=== PATIENT | male | born 1960 | race Caucasian/White ===

== ENCOUNTER 2022-05-24 22:25 | Emergency (ER) | payer OTHER ==
[2022-05-24 23:31] VITALS: RESP 16; TEMP 97.8
[2022-05-25] MEDS ORDERED: LIDOCAINE 1% INJ 10MG/ML (5 ML VIAL-PF) SQ STA (01:10)
[2022-05-25 02:42] LABS: Basophils % (A) 0 %; Eosinophils # (A) 0.1 k/uL (0-0.7); Eosinophils % (A) 1 %; HCT 40.4 % (39.0-53.0); HGB 12.7 gm/dL (13.0-17.5); Hypochromasia Slight; Lymphocytes # (A) 2.8 k/uL (1.0-4.8); Lymphocytes % (A) 29 %; MCHC 31.4 g/dL (31.0-37.0); MCV 102.1 fL (80.0-100.0); Macrocytosis Slight; Mean Platelet Volume 7.7; Monocytes # (A) 0.4 k/uL (0-1.0); Monocytes % (A) 5 %; Neutrophils # (A) 6.2 k/uL (1.3-7.7); Neutrophils % (A) 65 %; Platelet Count 289 k/uL (150-450); RBC 3.96 m/uL (4.30-5.90); RDW 14.1 % (11.5-15.5); WBC 9.6 k/uL (3.8-10.6)
[2022-05-25 02:47] LABS: INR 0.9 (<1.2); Partial Thromboplastin Time 22.1 sec (22.0-30.0); Prothrombin Time 10.2 sec (9.0-12.0)
[2022-05-25 02:49] LABS: Albumin 3.4 g/dL (3.5-5.0); Calcium 8.2 mg/dL (8.4-10.2); Potassium 4.4 mmol/L (3.5-5.1); Total Bilirubin 0.1 mg/dL (0.2-1.3); Total Protein 6.1 g/dL (6.3-8.2)
--- NOTE | 2022-05-25 02:58 | ED ---
General Adult HPI - General Chief complaint: Syncope Stated complaint: Fall @1630/Syncope/Hit head Time Seen by Provider: 05/25/22 01:04 Source: patient Mode of arrival: ambulatory Limitations: no limitations - History of Present Illness Initial comments: This patient is a 62-year-old man brought to have evaluation after he had a ground-level fall at home. The patient has history of frequent falls. 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 The patient fell this evening then had not been able to get up. He states that he did get to a phone and call. He is currently denying complaints other than having a laceration to the posterior scalp. States he would not have come to the hospital other than for the scalp laceration. Denies neck, back, chest or abdomen pain. He states there is just some mild discomfort at the laceration site -: hour(s) Location: head Severity scale (1-10): 1 Consistency: constant Improves with: none Worsens with: none Associated Symptoms: denies other symptoms Treatments Prior to Arrival: none - Related Data Allergies Allergy/AdvReac Type Severity Reaction Status Date / Time No Known Allergies Allergy Verified 05/24/22 23:31 Review of Systems ROS Statement: Those systems with pertinent positive or pertinent negative responses have been documented in the HPI. ROS Other: All systems not noted in ROS Statement are negative. Constitutional: Denies: fever, weakness Eyes: Denies: vision change ENT: Denies: epistaxis Respiratory: Denies: cough, dyspnea Cardiovascular: Denies: chest pain, palpitations, edema, syncope Gastrointestinal: Denies: abdominal pain, vomiting, diarrhea Genitourinary: Denies: dysuria, hematuria Musculoskeletal: Denies: back pain Skin: Denies: rash Neurological: Reports: headache. Denies: weakness, numbness, paresthesias, confusion Past Medical History Additional Past Medical History / Comment(s): thyroid issue History of Any Multi-Drug Resistant Organisms: None Reported Additional Past Surgical History / Comment(s): gastric bypass. Umbilical hernia Past Psychological History: No Psychological Hx Reported Smoking Status: Never smoker Past Alcohol Use History: Occasional Past Drug Use History: None Reported General Exam Limitations: no limitations General appearance: alert, in no apparent distress Head exam: Present: normocephalic, other (Patient has approximately 8 cm laceration to the right parieto-occipital scalp. There is no bony tenderness or deformity.) Eye exam: Present: normal appearance, PERRL, EOMI. Absent: scleral icterus, conjunctival injection ENT exam: Present: normal oropharynx, TM's normal bilaterally Neck exam: Present: normal inspection, full ROM. Absent: tenderness Respiratory exam: Present: normal lung sounds bilaterally. Absent: respiratory distress, wheezes, rales, rhonchi, stridor, chest wall tenderness Cardiovascular Exam: Present: regular rate, normal rhythm, normal heart sounds. Absent: systolic murmur, diastolic murmur, rubs, gallop GI/Abdominal exam: Present: soft. Absent: distended, tenderness, guarding, rebound, rigid, mass Extremities exam: Present: normal inspection, normal capillary refill. Absent: pedal edema, calf tenderness Back exam: Present: normal inspection. Absent: CVA tenderness (R), CVA tenderness (L), vertebral tenderness Neurological exam: Present: alert, oriented X3, CN II-XII intact. Absent: motor sensory deficit Skin exam: Present: warm, dry, normal color. Absent: rash Course Vital Signs 05/24/22 05/25/22 23:25 05:40 Temperature 97.8 F Pulse Rate 87 88 Respiratory 16 16 Rate Blood Pressure 108/74 110/72 O2 Sat by Pulse 96 100 Oximetry EKG Findings - EKG Results: EKG: interpreted by SAVANNAH, sinus rhythm (Rate 77 bpm) - Blocks, [place], Hypertrophy, ST Abn: AV and intraventricular conduction: right bundle branch block (fixed/intermittent, complete/incomplete) QRS axis and voltage: left axis deviation (-30 to -90) Chamber hypertrophy or enlargement: left ventricular hypertrophy or enlargement (LVE) Procedures - Laceration Laceration #1 Consent Obtained: verbal consent Indication: laceration Site: scalp Description: linear Anesthetic Used: lidocaine 1% Anesthesia Technique: local infiltration Type of Sutures: other (Melchor) Number of Sutures: 8 Technique: simple, interrupted Patient Tolerated Procedure: well, no complications Medical Decision Making - Lab Data Result diagrams: 05/25/22 02:25 05/25/22 02:25 Lab Results 05/25/22 05/25/22 05/25/22 Range/Units 02:25 02:25 02:25 WBC 9.6 (3.8-10.6) k/uL RBC 3.96 L (4.30-5.90) m/uL Hgb 12.7 L (13.0-17.5) gm/dL Hct 40.4 (39.0-53.0) % MCV 102.1 H (80.0-100.0) fL MCH 32.0 (25.0-35.0) pg MCHC 31.4 (31.0-37.0) g/dL RDW 14.1 (11.5-15.5) % Plt Count 289 (150-450) k/uL MPV 7.7 Neutrophils % 65 % Lymphocytes % 29 % Monocytes % 5 % Eosinophils % 1 % Basophils % 0 % Neutrophils # 6.2 (1.3-7.7) k/uL Lymphocytes # 2.8 (1.0-4.8) k/uL Monocytes # 0.4 (0-1.0) k/uL Eosinophils # 0.1 (0-0.7) k/uL Basophils # 0.0 (0-0.2) k/uL Hypochromasia Slight Macrocytosis Slight PT 10.2 (9.0-12.0) sec INR 0.9 (<1.2) APTT 22.1 (22.0-30.0) sec Sodium 142 (137-145) mmol/L Potassium 4.4 (3.5-5.1) mmol/L Chloride 116 H (98-107) mmol/L Carbon Dioxide 15 L (22-30) mmol/L Anion Gap 11 mmol/L BUN 22 H (9-20) mg/dL Creatinine 1.43 H (0.66-1.25) mg/dL Est GFR (CKD-EPI)AfAm 61 (>60 ml/min/1.73 sqM) Est GFR (CKD-EPI)NonAf 52 (>60 ml/min/1.73 sqM) Glucose 75 (74-99) mg/dL Calcium 8.2 L (8.4-10.2) mg/dL Total Bilirubin 0.1 L (0.2-1.3) mg/dL AST 22 (17-59) U/L ALT 8 (4-49) U/L Alkaline Phosphatase 95 (38-126) U/L CK-MB (CK-2) (0.0-2.4) ng/mL Troponin I (0.000-0.034) ng/mL Total Protein 6.1 L (6.3-8.2) g/dL Albumin 3.4 L (3.5-5.0) g/dL 05/25/22 Range/Units 02:25 WBC (3.8-10.6) k/uL RBC (4.30-5.90) m/uL Hgb (13.0-17.5) gm/dL Hct (39.0-53.0) % MCV (80.0-100.0) fL MCH (25.0-35.0) pg MCHC (31.0-37.0) g/dL RDW (11.5-15.5) % Plt Count (150-450) k/uL MPV Neutrophils % % Lymphocytes % % Monocytes % % Eosinophils % % Basophils % % Neutrophils # (1.3-7.7) k/uL Lymphocytes # (1.0-4.8) k/uL Monocytes # (0-1.0) k/uL Eosinophils # (0-0.7) k/uL Basophils # (0-0.2) k/uL Hypochromasia Macrocytosis PT (9.0-12.0) sec INR (<1.2) APTT (22.0-30.0) sec Sodium (137-145) mmol/L Potassium (3.5-5.1) mmol/L Chloride (98-107) mmol/L Carbon Dioxide (22-30) mmol/L Anion Gap mmol/L BUN (9-20) mg/dL Creatinine (0.66-1.25) mg/dL Est GFR (CKD-EPI)AfAm (>60 ml/min/1.73 sqM) Est GFR (CKD-EPI)NonAf (>60 ml/min/1.73 sqM) Glucose (74-99) mg/dL Calcium (8.4-10.2) mg/dL Total Bilirubin (0.2-1.3) mg/dL AST (17-59) U/L ALT (4-49) U/L Alkaline Phosphatase (38-126) U/L CK-MB (CK-2) 2.5 H (0.0-2.4) ng/mL Troponin I <0.012 (0.000-0.034) ng/mL Total Protein (6.3-8.2) g/dL Albumin (3.5-5.0) g/dL Disposition Clinical Impression: Vasovagal syncope, Dehydration Disposition: HOME SELF-CARE Condition: Good Instructions (If sedation given, give patient instructions): Dehydration (ED), Syncope (ED), Head Laceration (ED) Is patient prescribed a controlled substance at d/c from ED?: No Referrals: Ruben Munguia DO [Primary Care Provider] - 1-2 days Time of Disposition: 03:05
[2022-05-25 03:01] LABS: Creatine Kinase MB 2.5 ng/mL (0.0-2.4); Troponin I <0.012 ng/mL (0.000-0.034)
[2022-05-25] MEDS ORDERED: BACITRACIN OINT 1 EACH PACKET TOPICAL ONE (04:59)
[2022-05-25 05:42] VITALS: BP 110/72; PULSE 88
== END 2022-05-25 05:42 | disposition home or self-care (01) ==
LOC: EC 22:25
DX: R55 Syncope and collapse (principal); E86.0 Dehydration
CPT/HCPCS: 36415; 80053; 82553; 84484; 85025; 85610; 85730; 12004; 99285; J2001

== ENCOUNTER 2022-09-09 07:15 | Observation (INO) | payer OTHER ==
[2022-09-09] MEDS ORDERED: KETOROLAC 15 MG/ML 1 ML VIAL IM STA (07:46)
[2022-09-09] MEDS ORDERED: diazePAM 5 MG TAB PO STA (07:46)
--- NOTE | 2022-09-09 08:02 | ED ---
Back Pain HPI - General Chief Complaint: Back Pain/Injury Stated Complaint: Back Pain Time Seen by Provider: 09/09/22 07:16 Source: patient, EMS Limitations: no limitations - History of Present Illness Initial Comments: 62-year-old male with past medical history of gastric bypass who presents to the emergency department with reported back pain. 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 States he broke his left tibia however it was not found on original evaluation and therefore healed improperly. He has been ambulating with a walker because of this. He has been under the care of his primary care doctor. Recently just finished physical therapy for his back pain. States that he was ambulating without his walker without difficulty. Yesterday the patient began having lumbar back spasms. States they're intermittent without provoking factors. Does admit to some numbness tingling that radiates into the posterior aspect of his left leg. No retention of urine or stool. No urinary incontinence. Does admit to some stool incontinence which has been chronic since his gastric bypass due to loose stools. No saddle anesthesia. She has been unable to ambulate at all since yesterday. Called EMS today after laying in bed for a significant period of time. He does have Flexeril at home which she took yesterday and states that it did not help his symptoms at all. No fevers. No history of drug use. No other alleviating, precipitating or modifying factors - Related Data Home Medications Medication Instructions Recorded Confirmed Calcium Carbonate [Calcium] 600 mg PO DAILY 09/09/22 09/09/22 Cyclobenzaprine [Flexeril] 10 mg PO TID 09/09/22 09/09/22 Ergocalciferol (Vitamin D2) 1,250 mcg PO MOTU 09/09/22 09/09/22 [Drisdol (50,000 Iu)] FLUoxetine HCL [PROzac] 20 mg PO DAILY 09/09/22 09/09/22 Levothyroxine Sodium [Synthroid] 50 mcg PO DAILY 09/09/22 09/09/22 Magnesium Oxide [Magnesium] 500 mg PO DAILY 09/09/22 09/09/22 Vitamin B Complex 1 cap PO DAILY 09/09/22 09/09/22 Previous Rx's Medication Instructions Recorded Diclofenac Sodium Gel [Voltaren 2 gm TOPICAL QID #100 gm 09/10/22 Gel] Ibuprofen [Motrin] 600 mg PO TID #60 tab 09/10/22 Pantoprazole [Protonix] 40 mg PO AC-BRKFST #30 tab 09/10/22 Allergies Allergy/AdvReac Type Severity Reaction Status Date / Time No Known Allergies Allergy Verified 09/09/22 11:43 Review of Systems ROS Statement: Those systems with pertinent positive or pertinent negative responses have been documented in the HPI. ROS Other: All systems not noted in ROS Statement are negative. Past Medical History Additional Past Medical History / Comment(s): thyroid issue History of Any Multi-Drug Resistant Organisms: None Reported Additional Past Surgical History / Comment(s): gastric bypass. Umbilical hernia Past Psychological History: No Psychological Hx Reported Smoking Status: Never smoker Past Alcohol Use History: Occasional Past Drug Use History: None Reported General Exam Limitations: no limitations General appearance: alert, in no apparent distress Head exam: Present: atraumatic, normocephalic, normal inspection Eye exam: Present: normal appearance, PERRL, EOMI. Absent: scleral icterus, conjunctival injection, periorbital swelling ENT exam: Present: normal exam, mucous membranes moist Neck exam: Present: normal inspection. Absent: tenderness, meningismus, lymphadenopathy Respiratory exam: Present: normal lung sounds bilaterally. Absent: respiratory distress, wheezes, rales, rhonchi, stridor Cardiovascular Exam: Present: regular rate, normal rhythm, normal heart sounds. Absent: systolic murmur, diastolic murmur, rubs, gallop, clicks GI/Abdominal exam: Present: soft, normal bowel sounds. Absent: distended, tenderness, guarding, rebound, rigid Extremities exam: Present: normal inspection, full ROM, normal capillary refill. Absent: tenderness, pedal edema, joint swelling, calf tenderness Back exam: Present: paraspinal tenderness, other (No step-offs or deformities. Positive straight leg raise, especially on the left. 5 out of 5 muscle strength in the lower extremities to include hip flexors, knee extensors, ankle and great toe dorsiflexors and foot plantar flexors) Neurological exam: Present: alert, oriented X3, CN II-XII intact Psychiatric exam: Present: normal affect, normal mood Skin exam: Present: warm, dry, intact, normal color. Absent: rash Course Vital Signs 09/09/22 09/09/22 07:17 13:17 Temperature 98.2 F 98.3 F Pulse Rate 71 57 L Respiratory 20 18 Rate Blood Pressure 127/79 125/77 O2 Sat by Pulse 98 100 Oximetry Medical Decision Making - Medical Decision Making Upon arrival patient is placed into room 17. A thorough history and physical exam was performed. He is given a dose of Valium and Toradol. CT performed the patient's lumbar spine as he does have history of fall with failing outpatient therapy. CT demonstrates scoliosis with multilevel degenerative disc disease most marked at levels L2 through L5. Multilevel facet arthropathy. Multilevel disc bulge. No definite acute fracture. Patient is unable to get up any. At this time. Given a dose of Dilaudid. Patient is ambulated for a second time and still unable to even sit up in bed due to pain and spasm. Because of this I did discuss the treatment options. Recommend admission at this time the patient is unable to ambulate and does live alone. Patient was agreeable. Called and spoke with sound physician's who was agreeable to admission - Lab Data Result diagrams: 09/09/22 12:16 09/10/22 06:10 Disposition Clinical Impression: Lumbar back pain, Herniated intervertebral disc of lumbar spine, Lumbar radiculopathy, acute Disposition: ADMITTED IP TO THIS [facility] Condition: Stable Is patient prescribed a controlled substance at d/c from ED?: No Time of Disposition: 11:33 Decision to Admit Reason: Admit from EC Decision Date: 09/09/22 Decision Time: 11:33
--- NOTE | 2022-09-09 08:45 | CT ---
EXAMINATION TYPE: CT lumbar spine wo con DATE OF EXAM: 09/09/2022 8:23 AM COMPARISON: None HISTORY: Fall, inability to ambulate CT DLP: 1242.1 mGycm Automated exposure control for dose reduction was used. Unenhanced CT of the lumbar spine was performed. Bone and soft tissue window settings are submitted as well as coronal and sagittal reconstructions. L1-L2: Hypertrophic spurring and moderate degenerative disc disease. Osseous structures grossly intac t. Neural foramina appear patent. L2-L3: Severe degenerative disc disease with secondary scoliosis. Circumferential disc bulging suspec anabell. Questionable right-sided neural foraminal encroachment. Recommend MRI L3-L4: Degenerative disc disease with hypertrophic spurring and facet arthropathy. Circumferential di sc bulging seen with effacement of the thecal sac. Suspect bilateral foraminal encroachment and canal stenosis. Given limitation exam recommend MRI. Disc herniation not excluded. L4-L5: Degenerative disc disease and facet arthropathy. There is bilateral foraminal encroachment and mild effacement of thecal sac with circumferential disc bulging L5-S1: Advanced facet arthropathy and degenerative disc disease. Increased attenuation in the left la teral recess is nonspecific could be related to paracentral disc herniation. Resolution limited. Susp ect neural foramina remain patent. Assessment spinal canal nondiagnostic due to resolution and artifact. Correlate with MRI if concern f or disc herniation or canal stenosis. Deformity of the kidneys noted bilaterally which could been the basis of peripelvic cysts and renal c hronic medical disease. Correlate with ultrasound. Hypertrophic spurring at all levels with scoliotic curvature. Small bilateral pleural effusion and basilar atelectasis or infiltrate. Small hiatal hernia with ques tion previous surgery involving the epigastric region. IMPRESSION: 1. Scoliosis with multilevel degenerative disc disease most marked at levels L2-L5. Multilevel facet arthropathy, or foraminal encroachment suspected. Multilevel disc bulging. Cannot exclude disc hernia tion L3-4 and left paracentral L5-S1 recommend follow-up MRI. 2. No definite acute fracture. 3. Small bilateral pleural effusion and basilar atelectasis or infiltrate.
[2022-09-09] MEDS ORDERED: HYDROmorphone 1 MG/ML 1 ML SYRINGE IM STA (10:15)
[2022-09-09] MEDS ORDERED: NALOXONE 0.4 MG/ML 1 ML VIAL IV PRN (11:35)
[2022-09-09] MEDS ORDERED: methylPREDNISolone SOD SUCCI 125 MG/2 ML VIAL IV STA (11:41)
[2022-09-09 12:42] LABS: ALT 10 U/L (4-49); AST 44 U/L (17-59); African American GFR (CKD) >90 (>60 ml/min/1.73 sqM); Albumin 2.3 g/dL (3.5-5.0); Alkaline Phosphatase 55 U/L (38-126); Anion Gap 6 mmol/L; Blood Urea Nitrogen 18 mg/dL (9-20); Calcium 6.9 mg/dL (8.4-10.2); Carbon Dioxide 23 mmol/L (22-30); Chloride 105 mmol/L (98-107); Glucose 87 mg/dL (74-99); Non-African American GFR(CKD) >90 (>60 ml/min/1.73 sqM); Potassium 3.3 mmol/L (3.5-5.1); Sodium 134 mmol/L (137-145); Total Bilirubin 0.6 mg/dL (0.2-1.3); Total Protein 4.8 g/dL (6.3-8.2)
[2022-09-09] MEDS ORDERED: POTASSIUM CHLORIDE ER 20 MEQ TAB.ER PO STA (12:57)
[2022-09-09 13:07] LABS: HGB 9.7 gm/dL (13.0-17.5); MCH 31.5 pg (25.0-35.0); MCHC 32.3 g/dL (31.0-37.0); MCV 97.4 fL (80.0-100.0); Mean Platelet Volume 8.9; Platelet Count 352 k/uL (150-450); RBC 3.08 m/uL (4.30-5.90); RDW 13.8 % (11.5-15.5); WBC 5.5 k/uL (3.8-10.6)
--- NOTE | 2022-09-09 13:12 | P.HPIM ---
History of Present Illness H&P Date: 09/09/22 Chief Complaint: back pain Patient is a 62-year-old male with past medical history of hypothyroidism, depression presenting with intractable back pain. He claims that at the beginning of this year, he had multiple falls which went to ankle fractures. He was then seen by physical therapy, and recently finished his course 2 weeks ago. About one week ago he had a slip, and twisted his back slightly. Since then he has been having gradual worsening of lumbar pain. He claims that the pain is worse with forward flexion. The pain does not radiate, he denies any numbness or paresthesias in his legs. He denies any saddle anesthesia, bowel or bladder complaints. At worst, he noticed about 8/10. Due to worsening pain he is having difficulty ambulating. She denies any recent chest pain, shortness of breath, abdominal pain, diarrhea, constipation, nausea, vomiting, trouble history, sick contacts. In the ED, his vital signs were within normal limits. His labs were significant for potassium of 3.3 and magnesium of 1.0. Calcium was normal corrected for albumin. Lumbar CT scan showed scoliosis with multilevel degenerative disc disease most marked at levels L2 to L5. Multilevel disc bulge and, no definite acute fracture, small bilateral pleural effusion and basilar atelectasis or infiltrate. In the ED, he was given Valium, Toradol, hydromorphone, steroids. Pertinent positives and negatives as discussed in HPI, a complete review of sy stems was performed and all other systems are negative. Patient seen and examined at bedside. Vital signs reviewed General: nontoxic, no distress, appears at stated age Derm: warm, dry Head: atraumatic, normocephalic, symmetric Eyes: EOMI, no lid lag, anicteric sclera, pupils equal round reactive to light ENT: Nose and ears atraumatic, no thrush, no pharyngeal erythema Neck: No thyromegaly, no cervical lymphadenopathy, trachea midline, supple Mouth: no lip lesion, mucus membranes moist Cardiovascular: S1S2 reg, no murmur, no edema Lungs: clear to auscultation bilateral, no rhonchi, no rales, no wheeze, no accessory muscle use Abdominal: soft, nontender to palpation, no guarding, no appreciable organomegaly, normal bowel sounds Ext: no gross muscle atrophy, muscle strength muscle strength 5 out of 5 in all 4 extremities, no contractures, no step-offs, no spinal tenderness to palpat ion, restricted forward flexion at lumbar spine due to pain Neuro: CN II-XII grossly intact, light touch intact all 4 extremities, Psych: Alert, oriented, appropriate affect Assessment/Plan: Acute intractable low back pain Scoliosis Multilevel degenerative disc disease - will treat with ibuprofen 600 mg daily -Continue home cyclobenzaprine -Spine consult -PT/OT Hypomagnesemia Hypokalemia -Replete Hypocalcemia -Corrected for albumin, calcium is 8.3 Hypothyroidism Depression -Continue home medication The patient is admitted with an anticipated less than 2 midnight stay for evaluation of acute back pain. Surrogate decision-maker: Sister CODE STATUS: DNR/DNI DVT prophylaxis: Lovenox Anticipated discharge date: 09/10/[address]: Home versus [facility] A total of 48 minutes was spent on the care of this complex patient more than 50% of the time was spent in counseling and care coordination. Past Medical History Past Medical History: Thyroid Disorder Additional Past Medical History / Comment(s): thyroid issue History of Any Multi-Drug Resistant Organisms: None Reported Additional Past Surgical History / Comment(s): gastric bypass. Umbilical hernia Past Psychological History: No Psychological Hx Reported Smoking Status: Never smoker Past Alcohol Use History: Occasional Past Drug Use History: None Reported Medications and Allergies Home Medications Medication Instructions Recorded Confirmed Type Calcium Carbonate [Calcium] 600 mg PO DAILY 09/09/22 09/09/22 History Cyclobenzaprine [Flexeril] 10 mg PO TID 09/09/22 09/09/22 History Ergocalciferol (Vitamin D2) 1,250 mcg PO MOTU 09/09/22 09/09/22 History [Drisdol (50,000 Iu)] FLUoxetine HCL [PROzac] 20 mg PO DAILY 09/09/22 09/09/22 History Levothyroxine Sodium [Synthroid] 50 mcg PO DAILY 09/09/22 09/09/22 History Magnesium Oxide [Magnesium] 500 mg PO DAILY 09/09/22 09/09/22 History Vitamin B Complex 1 cap PO DAILY 09/09/22 09/09/22 History Allergies Allergy/AdvReac Type Severity Reaction Status Date / Time No Known Allergies Allergy Verified 09/09/22 11:43 Physical Exam Vitals: Vital Signs Temp Pulse Resp BP Pulse Ox 09/09/22 07:17 98.2 F 71 20 127/79 98 Intake and Output 09/08/22 09/09/22 09/09/22 22:59 06:59 14:59 Other: Weight 97.522 kg Results CBC & Chem 7: 09/09/22 12:16 09/09/22 12:16 Labs: Abnormal Lab Results - Last 24 Hours (Table) 09/09/22 09/09/22 Range/Units 12:16 12:16 RBC 3.08 L (4.30-5.90) m/uL Hgb 9.7 L (13.0-17.5) gm/dL Hct 30.0 L (39.0-53.0) % Sodium 134 L (137-145) mmol/L Potassium 3.3 L (3.5-5.1) mmol/L Calcium 6.9 L (8.4-10.2) mg/dL Magnesium 1.0 L (1.6-2.3) mg/dL Total Protein 4.8 L (6.3-8.2) g/dL Albumin 2.3 L (3.5-5.0) g/dL
[2022-09-09] MEDS: PANTOPRAZOLE 40 MG TABLET PO SCH (13:26)
[2022-09-09] MEDS: MAGNESIUM SULFATE-D5W PMX 1 GM in DEXTROSE/WATER 1 100ML.BAG IVPB SCH ×4 (13:26→17:48)
[2022-09-09 13:44] LABS: Lymphocytes # (M) 1.71 k/uL (1.0-4.8); Monocytes # (M) 0.61 k/uL (0-1.0); Neutrophils # (M) 3.19 k/uL (1.3-7.7); Neutrophils % (M) 58 %; Nucleated Red Blood Cells 0 /100 WBC (0-0); Total Cells Counted 100
[2022-09-09 13:46] LABS: Anisocytosis (M) Present; Poikilocytosis (M) Present
[2022-09-09] MEDS: IBUPROFEN 600 MG TAB PO SCH ×2 (15:55→21:34)
[2022-09-09] MEDS: CYCLOBENZAPRINE 10 MG TAB PO SCH ×2 (16:38→21:34)
--- NOTE | 2022-09-09 16:48 | P.CNOR ---
History of Present Illness - [facility] Consult date: 09/09/22 Requesting physician: Sujey Olivo Consult reason: low back pain (Significant low back pain and spasm) History of present illness: Patient is a very pleasant 62-year-old male who is seen and examined at bedside for further evaluation of his lumbar spine. He states a week ago Wednesday he bumped his arm when getting off the toilet and did have some lumbar spine soreness for a couple days. Later in the week his symptoms have completely subsided. He states in the past couple days he has had some spasm in his lumbar spine that was not severe. He states yesterday his pain became quite severe and he had significant spasm and he was having significant difficulty with his mo bility. He presented to [facility] for further evaluation. CT imaging was taking of his lumbar spine at that time. He states he occasionally has some numbness in his left foot but denies specific lower extremity radiculopathy bilaterally. He is not complaining of any lower extremity weakness bilaterally. He is voiding without difficulty. He states he is known have some lower extremity skin changes which are chronic. He states since his admittance to the hospital his pain has significantly improved. He is not experiencing any significant lumbar spasm or pain. He is able to roll over in bed independently by himself without difficulty. He is able to perform acti ve range of motion bilateral lower extremities without difficulty. Currently he does not feel he needs further treatment evaluation specifically for his lumbar spine. Patient's other medical history does include hypothyroidism and depression. He does admit to history of chronic loose stools following previous gastric bypass surgery in 2000. He also states his right lower extremity is shorter than his left lower extremity following hip fracture requiring surgical intervention while in [facility]. Past Medical History Past Medical History: Thyroid Disorder Additional Past Medical History / Comment(s): thyroid issue History of Any Multi-Drug Resistant Organisms: None Reported Additional Past Surgical History / Comment(s): gastric bypass. Umbilical hernia Past Psychological History: No Psychological Hx Reported Smoking Status: Never smoker Past Alcohol Use History: Occasional Past Drug Use History: None Reported Medications and Allergies Home Medications Medication Instructions Recorded Confirmed Type Calcium Carbonate [Calcium] 600 mg PO DAILY 09/09/22 09/09/22 History Cyclobenzaprine [Flexeril] 10 mg PO TID 09/09/22 09/09/22 History Ergocalciferol (Vitamin D2) 1,250 mcg PO MOTU 09/09/22 09/09/22 History [Drisdol (50,000 Iu)] FLUoxetine HCL [PROzac] 20 mg PO DAILY 09/09/22 09/09/22 History Levothyroxine Sodium [Synthroid] 50 mcg PO DAILY 09/09/22 09/09/22 History Magnesium Oxide [Magnesium] 500 mg PO DAILY 09/09/22 09/09/22 History Vitamin B Complex 1 cap PO DAILY 09/09/22 09/09/22 History Allergies Allergy/AdvReac Type Severity Reaction Status Date / Time No Known Allergies Allergy Verified 09/09/22 11:43 Physical Examination Physical exam: Patient is awake, alert, and oriented 3 Vital signs stable Good chest excursion with deep inspiration and expiration Abdomen soft nontender Examination of lumbar spine reveals skin is intact with no abrasions, lacerations, or bruises; no erythema, purulence or signs of infection Dorsiflexion, plantarflexion, and extensor hallucis longus positive sustained bilaterally Lower extremity strength 5/5 bilaterally Evidence of skin changes over the bilateral lower extremities greater on the left than the right No lower extremity hyperreflexia bilaterally Straight leg test negative bilateral lower extremities Negative Lasegue's test bilaterally No signs or symptoms of DVT; no calf pain No pain with internal and external rotation of the hips bilaterally Neurovascularly intact Results Pertinent studies: CT of the lumbar spine taken on 09/09/2022: T11-L1 degenerative disc disease with anterior osteophytic spurring; L1-2 significant anterior ossific spurring; L2-3 and L3-4 severe degenerative disc disease with significant anterior osteophytic spurring; L3-4 facet arthropathy and circumferential disc bulging with suspected bilateral neural foraminal encroachment and canal stenosis; L4-5 degenerative disc disease, facet arthropathy, and anterior osteophytic spurring; degenerative scoliosis; L5-S1 advanced facet arthropathy and degenerative disc disease with apparent left-sided herniated nucleus pulposus - Labs Labs: Abnormal Lab Results - Last 24 Hours (Table) 09/09/22 09/09/22 Range/Units 12:16 12:16 RBC 3.08 L (4.30-5.90) m/uL Hgb 9.7 L (13.0-17.5) gm/dL Hct 30.0 L (39.0-53.0) % Sodium 134 L (137-145) mmol/L Potassium 3.3 L (3.5-5.1) mmol/L Calcium 6.9 L (8.4-10.2) mg/dL Magnesium 1.0 L (1.6-2.3) mg/dL Total Protein 4.8 L (6.3-8.2) g/dL Albumin 2.3 L (3.5-5.0) g/dL H & H 09/09/22 Range/Units 12:16 Hgb 9.7 L (13.0-17.5) gm/dL Hct 30.0 L (39.0-53.0) % Result Diagrams: 09/09/22 12:16 09/09/22 12:16 Assessment and Plan Assessment: Assessment: Significant lumbar spasm improved Significant lumbar pain improved Left foot numbness, occasionally Degenerative scoliosis Lumbar degenerative disc disease Lumbar facet arthropathy Lumbar osteophytic spurring L3-4 suspected neural foraminal encroachment and canal stenosis L5-S1 apparent left-sided herniated nucleus a pulseless Hypothyroidism Depression Chronic loose stools following gastric bypass surgery in 2000 History of right hip fracture requiring surgical intervention in [facility] (1) Lumbar paraspinal muscle spasm Current Visit: Yes Status: Acute Code(s): M62.830 - MUSCLE SPASM OF BACK SNOMED Code(s): 49554020004795249 (2) Lumbar facet arthropathy Current Visit: Yes Status: Acute Code(s): M47.816 - SPONDYLOSIS W/O MYELOPA THY OR RADICULOPATHY, LUMBAR REGION SNOMED Code(s): 512289867 (3) Lumbar degenerative disc disease Current Visit: Yes Status: Acute Code(s): M51.36 - OTHER INTERVERTEBRAL DISC DEGENERATION, LUMBAR REGION SNOMED Code(s): 76310625 (4) DDD (degenerative disc disease), lumbosacral Current Visit: Yes Status: Acute Code(s): M51.37 - OTHER INTERVERTEBRAL DISC DEGENERATION, LUMBOSACRAL REGION SNOMED Code(s): 46566724 (5) Degenerative scoliosis Current Visit: Yes Status: Acute Code(s): M41.50 - OTHER SECONDARY SCOLIOSIS, SITE UNSPECIFIED SNOMED Code(s): 648985728 (6) Lumbosacral disc herniation Current Visit: Yes Status: Acute Code(s): M51.27 - OTHER INTERVERTEBRAL DISC DISPLACEMENT, LUMBOSACRAL REGION SNOMED Code(s): 548189359 (7) Numbness of foot Current Visit: Yes Status: Acute Code(s): R20.0 - ANESTHESIA OF SKIN SNOMED Code(s): 572626241 (8) Hypothyroidism Current Visit: Yes Status: Acute Code(s): E03.9 - HYPOTHYROIDISM, UNSPECIFIED SNOMED Code(s): 15262712 (9) Depression Current Visit: Yes Status: Acute Code(s): F32.A - DEPRESSION, UNSPECIFIED SNOMED Code(s): 18677651 (10) History of hip fracture Current Visit: Yes Status: Acute Code(s): Z87.81 - PERSONAL HISTORY OF (HEALED) TRAUMATIC FRACTURE SNOMED Code(s): 990364445 (11) Herniated intervertebral disc of lumbar spine Current Visit: Yes Status: Acute Code(s): M51.26 - OTHER INTERVERTEBRAL DISC DISPLACEMENT, LUMBAR REGION SNOMED Code(s): 1339714544 Plan: Plan: 1. Patient was experiencing severe and limiting pain with spasm in his lumbar spine last evening he presented to [facility] for further evaluation. CT imaging of the lumbar spine was taken which does show significant degenerative changes throughout his lumbar spine. Patient states with medication he is not experiencing any significant low back pain or spasm currently. He is able to roll over in bed independently without difficulty. He is able to perform active range of motion of his bilateral lower extremities independently without difficulty. He currently denies any lower extremity weakness or radiculopathy bilaterally. He does admit to some intermittent numbness in his left foot. He is urinating without difficulty. He does not fee l he needs any current treatment specifically for his lumbar spine. We did discuss if his symptoms were to change or worsen we could consider MRI imaging of his lumbar spine and/or consultation with pain management. Patient states given his significant improvement he does not wish to have further evaluation in regards to his lumbar spine at this time. He may increase his mobility and ambulation to his tolerance. At this time, patient will be cleared for discharge from an orthopedic spine standpoint. Following discharge, he may follow-up on an as-needed basis. 2. Patient will continue be seen and examined by medicine Time with Patient: Greater than 30 (Including obtaining history, physical examination, reviewing of imaging, and dictation.)
[2022-09-09 16:52] LABS: Appearance,Urine Cloudy (Clear); Bacteria,Urine Many /hpf; Bilirubin,Urine Negative (Negative); Blood,Urine Negative (Negative); Color,Urine Yellow; Glucose,Urine (UA) Negative (Negative); Ketones,Urine Negative (Negative); Leukocyte Esterase,Urine Large (Negative); Mucus,Urine Occasional /hpf; Nitrite,Urine Positive (Negative); PH, Urine 5.5 (5.0-8.0); Protein,Urine Trace (Negative); RBC,Urine 3 /hpf (0-5); Specific Gravity,Urine 1.021 (1.001-1.035); Squamous Epithelial Cell,Urine 1 /hpf (0-4); WBC,Urine 97 /hpf (0-5)
[2022-09-10] MEDS ORDERED: LEVOTHYROXINE 50 MCG TAB PO SCH (06:30)
[2022-09-10] MEDS: IBUPROFEN 600 MG TAB PO SCH (08:59)
[2022-09-10] MEDS ORDERED: FLUoxetine HCL 20 MG CAP PO SCH (09:00)
[2022-09-10] MEDS ORDERED: NON FORMULARY DRUG (Vitamin B Complex [Vitamin B Complex] 1 EACH Capsule) PO SCH (09:00)
[2022-09-10] MEDS ORDERED: CALCIUM CARBONATE 500 MG CHEWABLE PO SCH (09:00)
[2022-09-10] MEDS: MAGNESIUM OXIDE 400 MG TAB PO SCH ×2 (09:00→09:03)
[2022-09-10] MEDS: PANTOPRAZOLE 40 MG TABLET PO SCH ×2 (09:00→09:03)
[2022-09-10] MEDS: CYCLOBENZAPRINE 10 MG TAB PO SCH (09:00)
[2022-09-10] MEDS ORDERED: ENOXAPARIN 40 MG/0.4 ML SYRINGE SQ SCH (09:00)
[2022-09-10 09:42] VITALS: BP 122/76; PULSE 54; RESP 17; TEMP 97.6
[2022-09-10 11:12] LABS: African American GFR (CKD) 107.1 (60.0-200.0); Anion Gap 9.7 mmol/L (10.00-18.00); BUN/Creat Ratio 19.7 Ratio (12.00-20.00); Blood Urea Nitrogen 17.2 mg/dL (9.0-27.0); Calcium 7.7 mg/dL (8.7-10.3); Carbon Dioxide 23.1 mmol/L (20.0-27.5); Magnesium 2.1 mg/dL (1.5-2.4); Non-African American GFR(CKD) 92.4 (60.0-200.0); Potassium 4.4 mmol/L (3.5-5.5)
--- NOTE | 2022-09-10 12:26 | P.DS ---
Providers Date of admission: 09/09/22 11:37 Expected date of discharge: 09/10/22 Attending physician: Tom Charlton MD Consults: 09/09/22 11:35 Consult Physician Urgent Consulting Provider: Josefina Dennis Consult Reason/Comments: intractable back pain Do you want consulting provider notified?: Yes Primary care physician: Ruben Munguia [facility] Course: Discharge Diagnosis: Acute intractable low back pain Scoliosis Multilevel degenerative disc disease Hypomagnesemia Hypokalemia Hypothyroidism Depression Hospital Course: 62-year-old male with history of hypothyroidism and depression presented with intractable low back pain. He was likely secondary to muscle strain. Lumbar CT scan showed scoliosis at multilevel degenerative disc disease most marked at L2 to L5. Multilevel disc bulge and no definite acute fracture, small bilateral pleural effusion and basilar atelectasis or infiltrate. His labs were also significant for potassium of 3.3 and magnesium of 1. Electrolytes were repleted. He was evaluated by orthopedic surgery. No acute interventions were recommended. If his symptoms gets worse or change, can consider MRI of lumbar spine and/or consultation with pain management. Patient was evaluated by physical therapy, and recommended home care. Patient seen and examined at bedside. Vital signs reviewed and stable. General: nontoxic, no distress, appears at stated age Derm: warm, dry Head: atraumatic, normocephalic, symmetric Eyes: EOMI, no lid lag, anicteric sclera, pupils equal round reactive to light ENT: Nose and ears atraumatic, no thrush, no pharyngeal erythema Neck: No thyromegaly, no cervical lymphadenopathy, trachea midline, supple Mouth: no lip lesion, mucus membranes moist Cardiovascular: S1S2 reg, no murmur, no edema Lungs: clear to auscultation bilateral, no rhonchi, no rales, no wheeze, no accessory muscle use Abdominal: soft, nontender to palpation, no guarding, no appreciable organomegaly, normal bowel sounds Ext: no gross muscle atrophy, muscle strength muscle strength 5 out of 5 in all 4 extremities, no contractures, no step-offs, no spinal tenderness to palpation, restricted forward flexion at lumbar spine due to pain Neuro: CN II-XII grossly intact, light touch intact all 4 extremities, Psych: Alert, oriented, appropriate affect A total of 33 minutes of time were spent preparing this complex discharge summary. Patient was discharged on 09/10/22 at 12:11. Patient Condition at Discharge: Stable Plan - Discharge Summary Discharge Rx Participant: No New Discharge Prescriptions: New Pantoprazole [Protonix] 40 mg PO AC-BRKFST #30 tab Diclofenac Sodium Gel [Voltaren Gel] 2 gm TOPICAL QID #100 gm Ibuprofen [Motrin] 600 mg PO TID #60 tab Continue Magnesium Oxide [Magnesium] 500 mg PO DAILY Ergocalciferol (Vitamin D2) [Drisdol (50,000 Iu)] 1,250 mcg PO MOTU Levothyroxine Sodium [Synthroid] 50 mcg PO DAILY FLUoxetine HCL [PROzac] 20 mg PO DAILY Cyclobenzaprine [Flexeril] 10 mg PO TID Calcium Carbonate [Calcium] 600 mg PO DAILY Vitamin B Complex 1 cap PO DAILY Discharge Medication List Calcium Carbonate [Calcium] 600 mg PO DAILY 09/09/22 [History] Cyclobenzaprine [Flexeril] 10 mg PO TID 09/09/22 [History] Ergocalciferol (Vitamin D2) [Drisdol (50,000 Iu)] 1,250 mcg PO MOTU 09/09/22 [History] FLUoxetine HCL [PROzac] 20 mg PO DAILY 09/09/22 [History] Levothyroxine Sodium [Synthroid] 50 mcg PO DAILY 09/09/22 [History] Magnesium Oxide [Magnesium] 500 mg PO DAILY 09/09/22 [History] Vitamin B Complex 1 cap PO DAILY 09/09/22 [History] Diclofenac Sodium Gel [Voltaren Gel] 2 gm TOPICAL QID #100 gm 09/10/22 [Rx] Ibuprofen [Motrin] 600 mg PO TID #60 tab 09/10/22 [Rx] Pantoprazole [Protonix] 40 mg PO AC-BRKFST #30 tab 09/10/22 [Rx] Follow up Appointment(s)/Referral(s): Saúl Tang PAC [PHYSICIAN [employer] ADMINISTRATOR] - As Needed (Patient may follow-up with Saúl Tang PA-C or Dr. Lloyd Dennis at [facility] on an as-needed basis following discharge. ) Ruben Munguia DO [Primary Care Provider] - 1-2 days Patient Instructions/Handouts: Low Back Strain (DC) Activity/Diet/Wound Care/Special Instructions: Please see Ortho and PCP. Discharge Disposition: HOME WITH HOME HEALTH SERVICES
[2022-09-14] MEDS ORDERED: ERGOCALCIFEROL 1,250 MCG (50,000 IU) CAPSULE PO SCH (09:00)
== END 2022-09-10 14:44 | disposition home health service (06) ==
LOC: EC 07:15 → 6NMEDSUR 11:37
PROVIDERS: ADMIT Student in an Organized Health Care Education/Training Program; ATTEND Student in an Organized Health Care Education/Training Program
DX: M51.17 Intervertebral disc disorders with radiculopathy, lumbosacral region (principal); M51.37 Other intervertebral disc degeneration, lumbosacral region; M41.50 Other secondary scoliosis, site unspecified; E83.42 Hypomagnesemia; E87.6 Hypokalemia; E83.51 Hypocalcemia; K42.9 Umbilical hernia without obstruction or gangrene; J90 Pleural effusion, not elsewhere classified; K44.9 Diaphragmatic hernia without obstruction or gangrene; F32.A Depression, unspecified; E03.9 Hypothyroidism, unspecified; Z98.84 Bariatric surgery status; Z79.899 Other long term (current) drug therapy; Z79.890 Hormone replacement therapy; Z66 Do not resuscitate; Z87.81 Personal history of (healed) traumatic fracture
CPT/HCPCS: 96366; 96372 ×2; 96365; 96375; 99285; 97162; 97166; 80053; 80048; 83735 ×2; 84443; 85025; 81001; 72131; G0378 ×2; J2930; J1650; J1170; J3475; J1885

== ENCOUNTER → 2022-09-24 | Outpatient (CLI) | payer OTHER ==
--- NOTE | 2022-09-24 10:48 | XR ---
EXAMINATION TYPE: XR chest 2V DATE OF EXAM: 09/24/2022 10:40 AM COMPARISON: None TECHNIQUE: XR chest 2V Frontal and lateral views of the chest. CLINICAL INDICATION:Male, 62 years old with history of J90 Pleural effusion; FINDINGS: Lungs/Pleura: There is no evidence of pleural effusion, focal consolidation, or pneumothorax. Pulmonary vascularity: Unremarkable. Heart/mediastinum: Cardiomediastinal silhouette is prominent in size. Musculoskeletal: Multiple level degenerative disc disease changes seen throughout the spine. No acute osseous abnormality. Dextro curvature of the thoracic spine. Other: Surgical clips in the upper abdomen. IMPRESSION: No acute cardiopulmonary disease/process.
== END | disposition home or self-care (01) ==
LOC: RADXRMAIN 10:23
PROVIDERS: ATTEND Family Medicine
DX: J90 Pleural effusion, not elsewhere classified (principal)
CPT/HCPCS: 71046

== ENCOUNTER 2022-11-06 11:48 | Inpatient (IN) | payer OTHER ==
[2022-11-06] MEDS ORDERED: SODIUM CHLORIDE 0.9% 1,000 ML IV ONE ×2 (12:08→13:10)
--- NOTE | 2022-11-06 12:12 | ED ---
General Adult HPI - General Chief complaint: Nausea/Vomiting/Diarrhea Stated complaint: Diarrhea Time Seen by Provider: 11/06/22 11:59 Source: patient, RN notes reviewed Mode of arrival: EMS Limitations: no limitations - History of Present Illness Initial comments: 62-year-old male in the emergency department for diarrhea. She notes diarrhea starting and he asked progressively gotten worse. He reports he stood up from a chair and had an episode of diarrhea, admits he still maintains bowel function. He has not tried anything for his symptoms. He denies nausea, vomiting, abdominal pain, palpitations, fevers. Denies recent travel or recent antibiotic use. He is scheduled to have his first colonoscopy in january of 2023. - Related Data Home Medications Medication Instructions Recorded Confirmed Calcium Carbonate [Calcium] 600 mg PO DAILY 09/09/22 11/06/22 Ergocalciferol (Vitamin D2) 1,250 mcg PO MOWE 09/09/22 11/06/22 [Drisdol (50,000 Iu)] FLUoxetine HCL [PROzac] 20 mg PO DAILY 09/09/22 11/06/22 Levothyroxine Sodium [Synthroid] 50 mcg PO DAILY 09/09/22 11/06/22 Magnesium Oxide [Magnesium] 500 mg PO DAILY 09/09/22 11/06/22 Diclofenac Sodium Gel [Voltaren 2 gm TOPICAL QID PRN 11/06/22 11/06/22 Gel] Folic Acid 0.4 mg PO DAILY 11/06/22 11/06/22 Ibuprofen [Motrin] 600 mg PO TID PRN 11/06/22 11/06/22 Thiamine [Vitamin B-1] 100 mg PO DAILY 11/06/22 11/06/22 Allergies Allergy/AdvReac Type Severity Reaction Status Date / Time No Known Allergies Allergy Verified 11/06/22 14:38 Review of Systems ROS Statement: Those systems with pertinent positive or pertinent negative responses have been documented in the HPI. ROS Other: All systems not noted in ROS Statement are negative. Past Medical History Past Medical History: Thyroid Disorder Additional Past Medical History / Comment(s): thyroid issue History of Any Multi-Drug Resistant Organisms: None Reported Additional Past Surgical History / Comment(s): gastric bypass. Umbilical hernia Past Psychological History: Depression Smoking Status: Never smoker Past Alcohol Use History: Occasional Past Drug Use History: None Reported General Exam Limitations: no limitations General appearance: alert, in no apparent distress Head exam: Present: atraumatic, normocephalic, normal inspection Eye exam: Present: normal appearance ENT exam: Present: normal exam, mucous membranes moist Neck exam: Present: normal inspection. Absent: tenderness, meningismus, lymphadenopathy Respiratory exam: Present: normal lung sounds bilaterally. Absent: respiratory distress, wheezes, rales, rhonchi, stridor Cardiovascular Exam: Present: normal rhythm, tachycardia, normal heart sounds. Absent: systolic murmur, diastolic murmur, rubs, gallop, clicks GI/Abdominal exam: Present: soft, normal bowel sounds. Absent: distended, tenderness, guarding, rebound, rigid Back exam: Present: normal inspection Neurological exam: Present: alert, oriented X3, CN II-XII intact Psychiatric exam: Present: normal affect, normal mood Skin exam: Present: warm, dry, intact, normal color. Absent: rash Course Vital Signs 11/06/22 11/06/22 11:51 12:04 Temperature 98.3 F Pulse Rate 110 H 98 Respiratory 22 20 Rate Blood Pressure 119/76 121/82 O2 Sat by Pulse 100 99 Oximetry - Reevaluation(s) Reevaluation #1: 11/06/22 13:01 Patient reevaluated. Patient updated on results in for further imaging and lab work. Reevaluation #2: 11/06/22 15:14 Patient reevaluated. Patient updated on all results. patient is agreeable to plan of care. EKG Findings - EKG Comments: EKG Findings:: EKG performed at 13:28, rate 83bpm, NSR with marked sinus arrhythmia, RBBB NJ 178, QRS 151. Medical Decision Making - Medical Decision Making 62-year-old male coming in for diarrhea. Patient had an initial lab work is remarkable for WBC is 11.4, hemoglobin 8.7, INR 1.2, sodium 133, potassium 2.6 lactic acid 2.9, calcium 6.3, magnesium 0.8, lipase 60, COVID positive. I interpreted the following; CT abdomen without contrast remarkable for fluid filled colon without focal wall thickening or surrounding inflammatory changes. Patient was given 2 L fluids, potassium, magnesium and calcium during his course of the ED. Consult to Dr. Vogel Who Agrees and Accepts Patient for Admission. Case discussed with Dr. Milton ECP - Lab Data Result diagrams: 11/06/22 12:14 12 12:14 Lab Results 11/06/22 11/06/22 11/06/22 Range/Units 12:14 12:14 12:14 WBC 11.6 H (3.8-10.6) k/uL RBC 2.91 L (4.30-5.90) m/uL Hgb 8.7 L (13.0-17.5) gm/dL Hct 27.2 L (39.0-53.0) % MCV 93.5 (80.0-100.0) fL MCH 29.9 (25.0-35.0) pg MCHC 32.0 (31.0-37.0) g/dL RDW 13.6 (11.5-15.5) % Plt Count 281 (150-450) k/uL MPV 8.5 Neutrophils % 85 % Lymphocytes % 8 % Monocytes % 6 % Eosinophils % 0 % Basophils % 0 % Neutrophils # 9.8 H (1.3-7.7) k/uL Lymphocytes # 0.9 L (1.0-4.8) k/uL Monocytes # 0.6 (0-1.0) k/uL Eosinophils # 0.0 (0-0.7) k/uL Basophils # 0.0 (0-0.2) k/uL Hypochromasia Slight PT (9.0-12.0) sec INR (<1.2) Sodium 133 L (137-145) mmol/L Potassium 2.6 L* (3.5-5.1) mmol/L Chloride 107 (98-107) mmol/L Carbon Dioxide 14 L (22-30) mmol/L Anion Gap 12 mmol/L BUN 16 (9-20) mg/dL Creatinine 1.53 H (0.66-1.25) mg/dL Est GFR (CKD-EPI)AfAm 56 (>60 ml/min/1.73 sqM) Est GFR (CKD-EPI)NonAf 48 (>60 ml/min/1.73 sqM) Glucose 108 H (74-99) mg/dL Lactic Ac Sepsis Rflx Plasma Lactic Acid Kip 2.9 H* (0.7-2.0) mmol/L Calcium 6.3 L* (8.4-10.2) mg/dL Magnesium (1.6-2.3) mg/dL Total Bilirubin 0.6 (0.2-1.3) mg/dL AST 18 (17-59) U/L ALT 10 (4-49) U/L Alkaline Phosphatase 58 (38-126) U/L Total Protein 5.4 L (6.3-8.2) g/dL Albumin 2.3 L (3.5-5.0) g/dL Lipase (23-300) U/L Coronavirus (PCR) (Not Detectd) Influenza Type A RNA (Not Detectd) Influenza Type B (PCR) (Not Detectd) 11/06/22 11/06/22 11/06/22 Range/Units 12:53 13:20 13:20 WBC (3.8-10.6) k/uL RBC (4.30-5.90) m/uL Hgb (13.0-17.5) gm/dL Hct (39.0-53.0) % MCV (80.0-100.0) fL MCH (25.0-35.0) pg MCHC (31.0-37.0) g/dL RDW (11.5-15.5) % Plt Count (150-450) k/uL MPV Neutrophils % % Lymphocytes % % Monocytes % % Eosinophils % % Basophils % % Neutrophils # (1.3-7.7) k/uL Lymphocytes # (1.0-4.8) k/uL Monocytes # (0-1.0) k/uL Eosinophils # (0-0.7) k/uL Basophils # (0-0.2) k/uL Hypochromasia PT (9.0-12.0) sec INR (<1.2) Sodium (137-145) mmol/L Potassium (3.5-5.1) mmol/L Chloride (98-107) mmol/L Carbon Dioxide (22-30) mmol/L Anion Gap mmol/L BUN (9-20) mg/dL Creatinine (0.66-1.25) mg/dL Est GFR (CKD-EPI)AfAm (>60 ml/min/1.73 sqM) Est GFR (CKD-EPI)NonAf (>60 ml/min/1.73 sqM) Glucose (74-99) mg/dL Lactic Ac Sepsis Rflx Y Plasma Lactic Acid Kip (0.7-2.0) mmol/L Calcium (8.4-10.2) mg/dL Magnesium 0.8 L* (1.6-2.3) mg/dL Total Bilirubin (0.2-1.3) mg/dL AST (17-59) U/L ALT (4-49) U/L Alkaline Phosphatase (38-126) U/L Total Protein (6.3-8.2) g/dL Albumin (3.5-5.0) g/dL Lipase 60 (23-300) U/L Coronavirus (PCR) (Not Detectd) Influenza Type A RNA Not Detected (Not Detectd) Influenza Type B (PCR) Not Detected (Not Detectd) 11/06/22 11/06/22 Range/Units 13:20 13:20 WBC (3.8-10.6) k/uL RBC (4.30-5.90) m/uL Hgb (13.0-17.5) gm/dL Hct (39.0-53.0) % MCV (80.0-100.0) fL MCH (25.0-35.0) pg MCHC (31.0-37.0) g/dL RDW (11.5-15.5) % Plt Count (150-450) k/uL MPV Neutrophils % % Lymphocytes % % Monocytes % % Eosinophils % % Basophils % % Neutrophils # (1.3-7.7) k/uL Lymphocytes # (1.0-4.8) k/uL Monocytes # (0-1.0) k/uL Eosinophils # (0-0.7) k/uL Basophils # (0-0.2) k/uL Hypochromasia PT 11.9 (9.0-12.0) sec INR 1.2 H (<1.2) Sodium (137-145) mmol/L Potassium (3.5-5.1) mmol/L Chloride (98-107) mmol/L Carbon Dioxide (22-30) mmol/L Anion Gap mmol/L BUN (9-20) mg/dL Creatinine (0.66-1.25) mg/dL Est GFR (CKD-EPI)AfAm (>60 ml/min/1.73 sqM) Est GFR (CKD-EPI)NonAf (>60 ml/min/1.73 sqM) Glucose (74-99) mg/dL Lactic Ac Sepsis Rflx Plasma Lactic Acid Kip (0.7-2.0) mmol/L Calcium (8.4-10.2) mg/dL Magnesium (1.6-2.3) mg/dL Total Bilirubin (0.2-1.3) mg/dL AST (17-59) U/L ALT (4-49) U/L Alkaline Phosphatase (38-126) U/L Total Protein (6.3-8.2) g/dL Albumin (3.5-5.0) g/dL Lipase (23-300) U/L Coronavirus (PCR) Detected A (Not Detectd) Influenza Type A RNA (Not Detectd) Influenza Type B (PCR) (Not Detectd) Disposition Clinical Impression: Hypokalemia, Hypomagnesemia, COVID-19, Diarrhea Disposition: ADMITTED IP TO THIS HOSP Condition: Fair Time of Disposition: 15:13
[2022-11-06 12:35] LABS: Basophils % (A) 0 %; Eosinophils % (A) 0 %; HCT 27.2 % (39.0-53.0); HGB 8.7 gm/dL (13.0-17.5); Hypochromasia Slight; Lymphocytes # (A) 0.9 k/uL (1.0-4.8); Lymphocytes % (A) 8 %; MCH 29.9 pg (25.0-35.0); MCV 93.5 fL (80.0-100.0); Mean Platelet Volume 8.5; Monocytes # (A) 0.6 k/uL (0-1.0); Monocytes % (A) 6 %; Neutrophils # (A) 9.8 k/uL (1.3-7.7); Neutrophils % (A) 85 %; Platelet Count 281 k/uL (150-450); RBC 2.91 m/uL (4.30-5.90); RDW 13.6 % (11.5-15.5); WBC 11.6 k/uL (3.8-10.6)
[2022-11-06 12:47] LABS: Albumin 2.3 g/dL (3.5-5.0); Total Bilirubin 0.6 mg/dL (0.2-1.3); Total Protein 5.4 g/dL (6.3-8.2)
[2022-11-06 12:52] LABS: Potassium 2.6 mmol/L (3.5-5.1)
[2022-11-06 12:53] LABS: Calcium 6.3 mg/dL (8.4-10.2)
[2022-11-06] MEDS ORDERED: Potassium Replacement Protocol 1 EACH MISC MISCELLANE PRN ×2 (13:07→22:51)
[2022-11-06] MEDS: POTASSIUM CHLORIDE ER 20 MEQ TAB.ER PO SCH ×4 (13:32→23:29)
[2022-11-06 13:55] LABS: INR 1.2 (<1.2)
[2022-11-06 13:56] LABS: Prothrombin Time 11.9 sec (9.0-12.0)
[2022-11-06] MEDS ORDERED: CALCIUM GLUCONATE IN NACL 1 GM in SALINE 1 100ML.BAG IVPB ONE (13:56)
[2022-11-06 14:03] LABS: Magnesium 0.8 mg/dL (1.6-2.3)
[2022-11-06] MEDS ORDERED: Magnesium Replacement Protocol 1 EACH MISC MISCELLANE PRN (14:04)
--- NOTE | 2022-11-06 14:22 | CT ---
EXAMINATION TYPE: CT abdomen pelvis wo con CT DLP: 978.3 mGycm, Automated exposure control for dose reduction was used. DATE OF EXAM: 11/06/2022 2:01 PM COMPARISON: CT lumbar spine 09/09/2022 CLINICAL INDICATION:Male, 62 years old with history of diarrhea; abd pain TECHNIQUE: Standard CT of the abdomen and pelvis without IV or oral contrast. Lack of IV or oral co ntrast limits evaluation of solid and hollow organ viscera. Coronal and sagittal reformats were perfo rmed. FINDINGS: LOWER CHEST: Few bibasilar patchy groundglass opacities which may represent atelectasis versus infilt rate. Mild cardiomegaly. ABDOMEN LIVER: Unremarkable noncontrast appearance. GALLBLADDER AND BILE DUCTS: The gallbladder is surgically absent. No biliary duct dilatation. PANCREAS: Unremarkable noncontrast appearance. SPLEEN: Unremarkable noncontrast appearance. ADRENAL GLANDS: Unremarkable noncontrast appearance. KIDNEYS AND URETERS: No hydronephrosis or renal calculi. PELVIS BLADDER: Unremarkable REPRODUCTIVE: Unremarkable. 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 No pne umatosis. No evidence of bowel obstruction. PERITONEUM: No evidence of pneumoperitoneum or free fluid. VASCULATURE: No evidence of aortic aneurysm. MUSCULOSKELETAL: No acute osseous abnormalities. Remote right-sided rib fractures. Postsurgical rodriguez es from remote right proximal femur fracture with fixation intramedullary sidney and screw. Diffuse bony mineralization. Similar scoliosis and multilevel degenerative disc disease. LYMPH NODES: No gross evidence for lymphadenopathy. SOFT TISSUE/ABDOMINAL WALL: Bilateral gynecomastia. Postsurgical changes of the anterior abdominal wa ll from mesh hernia repair with multiple mesh anchors identified. There is some soft tissue identifie d in this region measuring 3.9 cm of unknown clinical significance (series 201, image 47). IMPRESSION: 1. Fluid-filled colon and rectum without focal wall thickening or surrounding inflammatory changes cain ggestive of a diarrheal state. 2. Postsurgical changes of the anterior abdominal wall from hernia repair with mesh anchors and nonsp ecific soft tissue of undetermined clinical significance. This may relate to postsurgical change. 3. Few bibasilar patchy groundglass opacities which may represent atelectasis versus infiltrate.
[2022-11-06] MEDS ORDERED: NALOXONE 0.4 MG/ML 1 ML VIAL IV PRN (14:40)
[2022-11-06] MEDS: SODIUM CHLORIDE 0.9% 1,000 ML IV SCH (14:50)
[2022-11-06] MEDS: MAGNESIUM SULFATE-D5W PMX 1 GM in DEXTROSE/WATER 1 100ML.BAG IVPB SCH ×4 (14:51→18:57)
[2022-11-06] MEDS: ACETAMINOPHEN TAB 325 MG TAB PO PRN (17:43)
--- NOTE | 2022-11-06 20:34 | P.HPIM ---
History of Present Illness H&P Date: 11/06/22 Chief Complaint: Nausea/Vomiting/Diarrhea 62-year-old male in the emergency department for diarrhea. She notes diarrhea starting and he asked progressively gotten worse. He reports he stood up from a chair and had an episode of diarrhea, admits he still maintains bowel function. He has not tried anything for his symptoms. He denies nausea, vomiting, abdominal pain, palpitations, fevers. Denies recent travel or recent antibiotic use. He is scheduled to have his first colonoscopy in january of 2023. Patient had an initial lab work is remarkable for WBC is 11.4, hemoglobin 8.7, INR 1.2, sodium 133, potassium 2.6 lactic acid 2.9, calcium 6.3, magnesium 0.8, lipase 60, COVID positive. I interpreted the following; CT abdomen without contrast remarkable for fluid filled colon without focal wall thickening or surrounding inflammatory changes. Patient was given 2 L fluids, potassium, magnesium and calcium during his course of the ED. Review of Systems REVIEW OF SYSTEMS: CONSTITUTIONAL: No fever, no malaise, no fatigue. HEENT: No recent visual problems or hearing problems. Denied any sore throat. CARDIOVASCULAR: No chest pain, orthopnea, PND, no palpitations, no syncope. PULMONARY: No shortness of breath, no cough, no hemoptysis. GASTROINTESTINAL: No diarrhea, no nausea, no vomiting, no abdominal pain. NEUROLOGICAL: No headaches, no weakness, no numbness. HEMATOLOGICAL: Denies any bleeding or petechiae. GENITOURINARY: Denies any burning micturition, frequency, or urgency. MUSCULOSKELETAL/RHEUMATOLOGICAL: Denies any joint pain, swelling, or any muscle pain. ENDOCRINE: Denies any polyuria or polydipsia. The rest of the 14-point review of systems is negative. Past Medical History Past Medical History: Thyroid Disorder Additional Past Medical History / Comment(s): thyroid issue History of Any Multi-Drug Resistant Organisms: None Reported Additional Past Surgical History / Comment(s): gastric bypass. Umbilical hernia Past Psychological History: Depression Smoking Status: Never smoker Past Alcohol Use History: Occasional Past Drug Use History: None Reported Medications and Allergies Home Medications Medication Instructions Recorded Confirmed Type Calcium Carbonate [Calcium] 600 mg PO DAILY 09/09/22 11/06/22 History Ergocalciferol (Vitamin D2) 1,250 mcg PO MOWE 09/09/22 11/06/22 History [Drisdol (50,000 Iu)] FLUoxetine HCL [PROzac] 20 mg PO DAILY 09/09/22 11/06/22 History Levothyroxine Sodium [Synthroid] 50 mcg PO DAILY 09/09/22 11/06/22 History Magnesium Oxide [Magnesium] 500 mg PO DAILY 09/09/22 11/06/22 History Diclofenac Sodium Gel [Voltaren 2 gm TOPICAL QID PRN 11/06/22 11/06/22 History Gel] Folic Acid 0.4 mg PO DAILY 11/06/22 11/06/22 History Ibuprofen [Motrin] 600 mg PO TID PRN 11/06/22 11/06/22 History Thiamine [Vitamin B-1] 100 mg PO DAILY 11/06/22 11/06/22 History Allergies Allergy/AdvReac Type Severity Reaction Status Date / Time No Known Allergies Allergy Verified 11/06/22 14:38 Physical Exam Vitals: Vital Signs Temp Pulse Resp BP Pulse Ox 11/06/22 12:04 98 20 121/82 99 11/06/22 11:51 98.3 F 110 H 22 119/76 100 Intake and Output 11/06/22 11/06/22 11/06/22 06:59 14:59 22:59 Other: Weight 97.522 kg - Constitutional General appearance: Present: average body habitus, cooperative, no acute distress - EENT Eyes: Present: anicteric sclerae, EOMI, PERRLA, normal appearance ENT: Present: hearing grossly normal, normal oropharynx Ears: bilateral: normal - Neck Neck: Present: normal ROM. Absent: lymphadenopathy, rigidity, thyromegaly Carotids: negative: bruit present Thyroid: bilateral: normal size, negative: enlarged, nodule - Respiratory Respiratory: bilateral: CTA, negative: rales, rhonchi, wheezing - Cardiovascular Rhythm: regular Heart sounds: normal: S1, S2 Abnormal Heart Sounds: Absent: systolic murmur, diastolic murmur - Gastrointestinal General gastrointestinal: Present: normal bowel sounds, soft. Absent: distended, organomegaly, tenderness - Genitourinary Genitourinary Comment(s): deferred - Integumentary Integumentary: Present: normal turgor. Absent: jaundiced, rash, ulcer - Neurologic Neurologic: Present: CNII-XII intact. Absent: focal deficits - Musculoskeletal Musculoskeletal: Present: gait normal, strength equal bilaterally - Psychiatric Psychiatric: Present: A&O x's 3, appropriate affect, intact judgment & insight Results CBC & Chem 7: 11/06/22 12:14 11/06/22 19:05 Labs: Abnormal Lab Results - Last 24 Hours (Table) 11/06/22 11/06/22 11/06/22 Range/Units 12:14 12:14 12:14 WBC 11.6 H (3.8-10.6) k/uL RBC 2.91 L (4.30-5.90) m/uL Hgb 8.7 L (13.0-17.5) gm/dL Hct 27.2 L (39.0-53.0) % Neutrophils # 9.8 H (1.3-7.7) k/uL Lymphocytes # 0.9 L (1.0-4.8) k/uL INR (<1.2) Sodium 133 L (137-145) mmol/L Potassium 2.6 L* (3.5-5.1) mmol/L Carbon Dioxide 14 L (22-30) mmol/L Creatinine 1.53 H (0.66-1.25) mg/dL Glucose 108 H (74-99) mg/dL Plasma Lactic Acid Kip 2.9 H* (0.7-2.0) mmol/L Calcium 6.3 L* (8.4-10.2) mg/dL Magnesium (1.6-2.3) mg/dL Total Protein 5.4 L (6.3-8.2) g/dL Albumin 2.3 L (3.5-5.0) g/dL Coronavirus (PCR) (Not Detectd) 11/06/22 11/06/22 11/06/22 Range/Units 13:20 13:20 13:20 WBC (3.8-10.6) k/uL RBC (4.30-5.90) m/uL Hgb (13.0-17.5) gm/dL Hct (39.0-53.0) % Neutrophils # (1.3-7.7) k/uL Lymphocytes # (1.0-4.8) k/uL INR 1.2 H (<1.2) Sodium (137-145) mmol/L Potassium (3.5-5.1) mmol/L Carbon Dioxide (22-30) mmol/L Creatinine (0.66-1.25) mg/dL Glucose (74-99) mg/dL Plasma Lactic Acid Kip (0.7-2.0) mmol/L Calcium (8.4-10.2) mg/dL Magnesium 0.8 L* (1.6-2.3) mg/dL Total Protein (6.3-8.2) g/dL Albumin (3.5-5.0) g/dL Coronavirus (PCR) Detected A (Not Detectd) Assessment and Plan Assessment: 1. Intractable nausea/vomiting/diarrhea; likely related to COVID-19 infection - Patient has been placed on IV fluids; we'll start with clear liquid diet and advance as tolerated - Patient is scheduled to have colonoscopy done in January 2023 2. Profound hypokalemia; supplemented in ED; we will monitor electrolytes closely and make further recommendations accordingly 3. Acute renal injury; likely prerenal; patient has been placed on IV fluids; monitor strict MARICRUZ's, daily weights, renal function and electrolytes; avoid nephrotoxins and hypotension 4. Lactic acidosis; likely related to intractable vomiting and diarrhea/dehydration; continue with IV fluid; monitor lactic acid levels closely 5. COVID-19 infection with groundglass opacities seen in part of the lung with CT of the abdomen - We will consult ID for recommendations on antiviral therapy with REM -- We will start patient on COVID-19 vitamin cocktail with vitamin D, vitamin C and zinc sulfate - Subcu heparin for DVT prophylaxis 6. Hypothyroidism; levothyroxin 50 MCG daily 7. Depression; patient takes Prozac 20 mg daily DVT prophylaxis; SCDs/subcu heparin CODE STATUS; full code
[2022-11-06] MEDS: HEPARIN SODIUM,PORCINE/PF 5,000 UNIT/0.5 ML SYRINGE SQ SCH (22:17)
[2022-11-06] MEDS: ASCORBIC ACID 500 MG TAB PO SCH (22:17)
[2022-11-06] MEDS: CHOLECALCIFEROL 25 MCG (1000 IU) TABLET PO SCH (22:17)
[2022-11-06] MEDS: ZINC SULFATE 220 MG CAP PO SCH (22:17)
--- NOTE | 2022-11-06 23:14 | P.CONS ---
History of Present Illness - Reason for Consult Consult date: 11/06/22 covid 19 Requesting physician: Jordyn Brunner - Chief Complaint Weakness and no energy x few days - History of Present Illness Patient is a 62-year-old male who is unvaccinated for COVID-19 patient was brought into the ER this afternoon for evaluation of weakness no energy mention the patient was not able to get stand up and go to the bathroom patient has been dealing with the diarrhea off and on for couple of weeks now denies having any blood or mucus in the stool did have multiple loose stools per day patient denies having abdominal pain nausea no vomiting patient denies having any chest pain or shortness of breath he did have minimal cough but not bringing up any sputum, patient mention low-grade fever yesterday with the symptoms the patient was brought into the ER on arrival to the ER the patient was afebrile this morning subsequently he did spike a low-grade fever 100.4 F patient is have not hypoxic or need for supplemental oxygen currently 98% on room air patient did have white count of 11.6 with a left shift did have a elevated la ctic acid initially subsequent normalized creatinine has been mildly elevated potassium was low patient did have a positive COVID test influenza was negative patient did have an abdominal pelvis CT few bibasilar patchy groundglass opacity which may represent atelectasis versus infiltrate and did not mention any bowel obstruction or colitis infectious he was consulted for further management of office positive COVID test Review of Systems Positive point has been mentioned in the HPI rest of the systems are negative Past Medical History Past Medical History: Sleep Apnea/CPAP/BIPAP, Thyroid Disorder Additional Past Medical History / Comment(s): thyroid issue. pt reports not using CPAP/BIPAP at HS History of Any Multi-Drug Resistant Organisms: None Reported Additional Past Surgical History / Comment(s): gastric bypass. Umbilical hernia, 6x hernia surgeries, fell & broke hip in 2019 - pt was in [facility] at the time and reports getting a pin in hip. Past Anesthesia/Blood Transfusion Reactions: No Reported Reaction Past Psychological History: Depression Smoking Status: Never smoker Past Alcohol Use History: Occasional Additional Past Alcohol Use History / Comment(s): Patient reports moving to [place] in April 2022 and cutting back on alcohol us. Prior to moving to [place], pt reports drinking one 5th of whiskey a day, but only drinks occasionally now. Pt reports to RN that he drank one 5th of whiskey last Wednesday. Past Drug Use History: None Reported Medications and Allergies Home Medications Medication Instructions Recorded Confirmed Type Calcium Carbonate [Calcium] 600 mg PO DAILY 09/09/22 11/06/22 History Ergocalciferol (Vitamin D2) 1,250 mcg PO MOWE 09/09/22 11/06/22 History [Drisdol (50,000 Iu)] FLUoxetine HCL [PROzac] 20 mg PO DAILY 09/09/22 11/06/22 History Levothyroxine Sodium [Synthroid] 50 mcg PO DAILY 09/09/22 11/06/22 History Magnesium Oxide [Magnesium] 500 mg PO DAILY 09/09/22 11/06/22 History Diclofenac Sodium Gel [Voltaren 2 gm TOPICAL QID PRN 11/06/22 11/06/22 History Gel] Folic Acid 0.4 mg PO DAILY 11/06/22 11/06/22 History Ibuprofen [Motrin] 600 mg PO TID PRN 11/06/22 11/06/22 History Thiamine [Vitamin B-1] 100 mg PO DAILY 11/06/22 11/06/22 History Fondaparinux [Arixtra] 10 mg SQ DAILY #30 each 11/19/22 Rx Allergies Allergy/AdvReac Type Severity Reaction Status Date / Time No Known Allergies Allergy Verified 11/06/22 14:38 Physical Exam Vitals: Vital Signs Temp Pulse Pulse Resp BP BP Pulse Ox 11/06/22 20:00 98.3 F 66 17 112/72 98 11/06/22 19:00 74 22 112/72 95 11/06/22 18:00 77 22 122/79 95 11/06/22 17:31 100.4 F H 11/06/22 17:00 80 25 H 116/80 96 11/06/22 16:24 86 18 112/75 97 11/06/22 16:00 79 28 H 104/71 93 L 11/06/22 15:00 81 23 132/82 95 11/06/22 14:00 18 132/85 97 11/06/22 13:00 87 22 121/82 96 11/06/22 12:10 121/82 11/06/22 12:04 98 20 121/82 99 11/06/22 11:51 98.3 F 110 H 22 119/76 100 Intake and Output 11/06/22 11/06/22 11/07/22 14:59 22:59 06:59 Other: Weight 97.522 kg 97.522 kg GENERAL DESCRIPTION: Middle-aged male lying in bed, no distress. No tachypnea or accessory muscle of respiration use. HEENT: Shows Pallor , no scleral icterus. Oral mucous membrane is dry. No pharyngeal erythema or thrush NECK: Trachea central, no thyromegaly. LUNGS: Unlabored breathing. Decreased intensity of breath no wheeze HEART: S1, S2, regular rate and rhythm. No loud murmur ABDOMEN: Soft, no tenderness , guarding or rigidity, no organomegaly EXTREMITIES: No edema of feet. SKIN: No rash, no masses palpable. NEUROLOGICAL: The patient is awake, alert, oriented x3, mood and affect normal. Results CBC & Chem 7: 11/27/22 07:24 11/27/22 07:24 Labs: Abnormal Lab Results - Last 24 Hours (Table) 11/06/22 11/06/22 11/06/22 Range/Units 12:14 12:14 12:14 WBC 11.6 H (3.8-10.6) k/uL RBC 2.91 L (4.30-5.90) m/uL Hgb 8.7 L (13.0-17.5) gm/dL Hct 27.2 L (39.0-53.0) % Neutrophils # 9.8 H (1.3-7.7) k/uL Lymphocytes # 0.9 L (1.0-4.8) k/uL INR (<1.2) Sodium 133 L (137-145) mmol/L Potassium 2.6 L* (3.5-5.1) mmol/L Carbon Dioxide 14 L (22-30) mmol/L Creatinine 1.53 H (0.66-1.25) mg/dL Glucose 108 H (74-99) mg/dL Plasma Lactic Acid Kip 2.9 H* (0.7-2.0) mmol/L Calcium 6.3 L* (8.4-10.2) mg/dL Magnesium (1.6-2.3) mg/dL Total Protein 5.4 L (6.3-8.2) g/dL Albumin 2.3 L (3.5-5.0) g/dL Coronavirus (PCR) (Not Detectd) 11/06/22 11/06/22 11/06/22 Range/Units 13:20 13:20 13:20 WBC (3.8-10.6) k/uL RBC (4.30-5.90) m/uL Hgb (13.0-17.5) gm/dL Hct (39.0-53.0) % Neutrophils # (1.3-7.7) k/uL Lymphocytes # (1.0-4.8) k/uL INR 1.2 H (<1.2) Sodium (137-145) mmol/L Potassium (3.5-5.1) mmol/L Carbon Dioxide (22-30) mmol/L Creatinine (0.66-1.25) mg/dL Glucose (74-99) mg/dL Plasma Lactic Acid Kip (0.7-2.0) mmol/L Calcium (8.4-10.2) mg/dL Magnesium 0.8 L* (1.6-2.3) mg/dL Total Protein (6.3-8.2) g/dL Albumin (3.5-5.0) g/dL Coronavirus (PCR) Detected A (Not Detectd) 11/06/22 Range/Units 19:05 WBC (3.8-10.6) k/uL RBC (4.30-5.90) m/uL Hgb (13.0-17.5) gm/dL Hct (39.0-53.0) % Neutrophils # (1.3-7.7) k/uL Lymphocytes # (1.0-4.8) k/uL INR (<1.2) Sodium (137-145) mmol/L Potassium 3.2 L (3.5-5.1) mmol/L Carbon Dioxide (22-30) mmol/L Creatinine (0.66-1.25) mg/dL Glucose (74-99) mg/dL Plasma Lactic Acid Kip (0.7-2.0) mmol/L Calcium (8.4-10.2) mg/dL Magnesium (1.6-2.3) mg/dL Total Protein (6.3-8.2) g/dL Albumin (3.5-5.0) g/dL Coronavirus (PCR) (Not Detectd) Assessment and Plan (1) COVID-19 Current Visit: Yes Status: Acute Priority: High Code(s): U07.1 - COVID-19 SNOMED Code(s): 940682403 Plan: 1patient present to hospital generalized weakness which is likely multifactorial could be related to his diarrhea has not patient did have significant diarrhea and evidence of prerenal status was low potassium, we will go ahead and check a stool for C. difficile stool culture. 2patient with a positive COVID test however no significant respiratory symptoms the patient is currently not hypoxic or need for supplemental oxygen CT did not show any evidence of groundglass opacity treatment will be mostly supportive. 3patient will be treated with heparin vitamin C and zinc no need for steroids or remdesivir at this point. 4we will check stool for C. difficile and stool culture and avoid antimotility agent. 5IV fluid. We will follow on clinical condition and cultures to further adjust medication if needed Thank you for this consultation will follow this patient along with you Time with Patient: Greater than 30
[2022-11-07] MEDS ORDERED: DICLOFENAC SODIUM GEL 100 GM TUBE TOPICAL PRN
[2022-11-07] MEDS: POTASSIUM CHLORIDE ER 20 MEQ TAB.ER PO SCH (00:44)
[2022-11-07 02:33] LABS: African American GFR (CKD) 63 (>60 ml/min/1.73 sqM); Anion Gap 4 mmol/L; Blood Urea Nitrogen 18 mg/dL (9-20); Carbon Dioxide 16 mmol/L (22-30); Chloride 114 mmol/L (98-107); Glucose 84 mg/dL (74-99); Magnesium 1.7 mg/dL (1.6-2.3); Non-African American GFR(CKD) 55 (>60 ml/min/1.73 sqM); Potassium 3.3 mmol/L (3.5-5.1); Sodium 134 mmol/L (137-145)
[2022-11-07 02:37] LABS: Calcium 6.2 mg/dL (8.4-10.2)
[2022-11-07] MEDS: LEVOTHYROXINE 50 MCG TAB PO SCH (05:43)
[2022-11-07 07:46] LABS: African American GFR (CKD) 70 (>60 ml/min/1.73 sqM); Anion Gap 8 mmol/L; Blood Urea Nitrogen 18 mg/dL (9-20); Carbon Dioxide 14 mmol/L (22-30); Chloride 115 mmol/L (98-107); Glucose 66 mg/dL (74-99); Non-African American GFR(CKD) 60 (>60 ml/min/1.73 sqM); Potassium 3.5 mmol/L (3.5-5.1); Sodium 137 mmol/L (137-145)
[2022-11-07 08:16] LABS: Calcium 6.2 mg/dL (8.4-10.2)
[2022-11-07] MEDS ORDERED: CALCIUM CARBONATE 500 MG CHEWABLE PO SCH (09:00)
[2022-11-07] MEDS: THIAMINE 100 MG TAB PO SCH (09:04)
[2022-11-07] MEDS: FLUoxetine HCL 20 MG CAP PO SCH (09:04)
[2022-11-07] MEDS: ZINC SULFATE 220 MG CAP PO SCH (09:04)
[2022-11-07] MEDS: MAGNESIUM OXIDE 400 MG TAB PO SCH (09:04)
[2022-11-07] MEDS: HEPARIN SODIUM,PORCINE/PF 5,000 UNIT/0.5 ML SYRINGE SQ SCH ×2 (09:04→15:37)
[2022-11-07] MEDS: CHOLECALCIFEROL 25 MCG (1000 IU) TABLET PO SCH (09:04)
[2022-11-07] MEDS: FOLIC ACID 1 MG TAB PO SCH (09:04)
[2022-11-07] MEDS: ASCORBIC ACID 500 MG TAB PO SCH ×2 (09:05→20:30)
[2022-11-07] MEDS: SODIUM CHLORIDE 0.9% 1,000 ML IV SCH ×2 (09:05→20:31)
--- NOTE | 2022-11-07 17:56 | P.PN ---
Subjective Progress Note Date: 11/07/22 62-year-old male in the emergency department for diarrhea. She notes diarrhea starting and he asked progressively gotten worse. He reports he stood up from a chair and had an episode of diarrhea, admits he still maintains bowel function. He has not tried anything for his symptoms. He denies nausea, vomiting, abdominal pain, palpitations, fevers. Denies recent travel or recent antibiotic use. He is scheduled to have his first colonoscopy in january of 2023. Patient had an initial lab work is remarkable for WBC is 11.4, hemoglobin 8.7, INR 1.2, sodium 133, potassium 2.6 lactic acid 2.9, calcium 6.3, magnesium 0.8, lipase 60, COVID positive. I interpreted the following; CT abdomen without contrast remarkable for fluid filled colon without focal wall thickening or surrounding inflammatory changes. Patient was given 2 L fluids, potassium, magnesium and calcium during his course of the ED. Objective - Vital Signs Vital signs: Vital Signs Temp 97.5 F L 11/07/22 08:00 Pulse 71 11/07/22 09:08 Resp 17 11/07/22 09:08 BP 110/73 11/07/22 08:00 Pulse Ox 98 11/07/22 08:00 FiO2 Intake & Output 11/06/22 11/07/22 11/07/22 18:59 06:59 18:59 Weight 97.522 kg 97.522 kg Other: Voiding Method Urinal Urinal Incontinent # Voids 4 1 # Bowel Movements 1 1 - Exam General appearance: alert, in no apparent distress Head exam: Present: atraumatic, normocephalic, normal inspection Eye exam: Present: normal appearance ENT exam: Present: normal exam, mucous membranes moist Neck exam: Present: normal inspection. Absent: tenderness, meningismus, lymphadenopathy Respiratory exam: Present: normal lung sounds bilaterally. Absent: respiratory distress, wheezes, rales, rhonchi, stridor Cardiovascular Exam: Present: normal rhythm, tachycardia, normal heart sounds. Absent: systolic murmur, diastolic murmur, rubs, gallop, clicks GI/Abdominal exam: Present: soft, normal bowel sounds. Absent: distended, tenderness, guarding, rebound, rigid Back exam: Present: normal inspection Neurological exam: Present: alert, oriented X3, CN II-XII intact Psychiatric exam: Present: normal affect, normal mood Skin exam: Present: warm, dry, intact, normal color. Absent: rash - Labs CBC & Chem 7: 11/06/22 12:14 11/07/22 06:26 Labs: Abnormal Lab Results - Last 24 Hours (Table) 11/06/22 11/06/22 11/06/22 Range/Units 13:20 13:20 13:20 INR 1.2 H (<1.2) Sodium (137-145) mmol/L Potassium (3.5-5.1) mmol/L Chloride (98-107) mmol/L Carbon Dioxide (22-30) mmol/L Creatinine (0.66-1.25) mg/dL Glucose (74-99) mg/dL Calcium (8.4-10.2) mg/dL Magnesium 0.8 L* (1.6-2.3) mg/dL Coronavirus (PCR) Detected A (Not Detectd) 11/06/22 11/07/22 11/07/22 Range/Units 19:05 02:07 06:26 INR (<1.2) Sodium 134 L (137-145) mmol/L Potassium 3.2 L 3.3 L (3.5-5.1) mmol/L Chloride 114 H 115 H (98-107) mmol/L Carbon Dioxide 16 L 14 L (22-30) mmol/L Creatinine 1.38 H 1.27 H (0.66-1.25) mg/dL Glucose 66 L (74-99) mg/dL Calcium 6.2 L* 6.2 L* (8.4-10.2) mg/dL Magnesium (1.6-2.3) mg/dL Coronavirus (PCR) (Not Detectd) Assessment and Plan Assessment: 1. Intractable nausea/vomiting/diarrhea; likely related to COVID-19 infection - Patient has been placed on IV fluids; we'll start with clear liquid diet and advance as tolerated - Patient is scheduled to have colonoscopy done in January 2023 2. Profound hypokalemia; supplemented in ED; we will monitor electrolytes closely and make further recommendations accordingly 3. Acute renal injury; likely prerenal; patient has been placed on IV fluids; monitor strict MARICRUZ's, daily weights, renal function and electrolytes; avoid nephrotoxins and hypotension 4. Lactic acidosis; likely related to intractable vomiting and diarrhea/dehydration; continue with IV fluid; monitor lactic acid levels closely 5. COVID-19 infection with groundglass opacities seen in part of the lung with CT of the abdomen - We will consult ID for recommendations on antiviral therapy with REM -- We will start patient on COVID-19 vitamin cocktail with vitamin D, vitamin C and zinc sulfate - Subcu heparin for DVT prophylaxis 6. Hypothyroidism; levothyroxin 50 MCG daily 7. Depression; patient takes Prozac 20 mg daily DVT prophylaxis; SCDs/subcu heparin CODE STATUS; full code
[2022-11-07] MEDS: CALCIUM CARBONATE 500 MG CHEWABLE PO SCH (20:30)
[2022-11-07 22:15] LABS: Appearance,Urine Cloudy (Clear); Bacteria,Urine Few /hpf; Bilirubin,Urine 1+ (Negative); Blood,Urine Negative (Negative); Color,Urine Yellow; Glucose,Urine (UA) Negative (Negative); Hyaline Casts,Urine 5 /lpf (0-2); Ketones,Urine Negative (Negative); Leukocyte Esterase,Urine Large (Negative); Mucus,Urine Few /hpf; Nitrite,Urine Negative (Negative); Protein,Urine 1+ (Negative); RBC,Urine <1 /hpf (0-5); Specific Gravity,Urine 1.017 (1.001-1.035); Squamous Epithelial Cell,Urine <1 /hpf (0-4); WBC,Urine 22 /hpf (0-5)
[2022-11-08] MEDS: HEPARIN SODIUM,PORCINE/PF 5,000 UNIT/0.5 ML SYRINGE SQ SCH ×4 (00:11→23:35)
[2022-11-08] MEDS ORDERED: METOPROLOL TARTRATE 25 MG TAB PO STA (03:15)
[2022-11-08 03:59] LABS: Basophils % (A) 0 %; Eosinophils % (A) 0 %; HCT 24.3 % (39.0-53.0); HGB 7.7 gm/dL (13.0-17.5); Hypochromasia Marked; Lymphocytes # (A) 1.8 k/uL (1.0-4.8); Lymphocytes % (A) 24 %; MCH 30.1 pg (25.0-35.0); MCHC 31.6 g/dL (31.0-37.0); MCV 95.2 fL (80.0-100.0); Monocytes # (A) 0.5 k/uL (0-1.0); Monocytes % (A) 6 %; Neutrophils # (A) 5.1 k/uL (1.3-7.7); Neutrophils % (A) 68 %; Platelet Count 228 k/uL (150-450); RBC 2.55 m/uL (4.30-5.90); RDW 13.7 % (11.5-15.5); WBC 7.5 k/uL (3.8-10.6)
[2022-11-08] MEDS ORDERED: DEXTROSE 5% IN WATER 100 ML with AMIODARONE 150 MG IV ONE (04:30)
[2022-11-08] MEDS ORDERED: AMIODARONE 360 MG in DEXTROSE 5% IN WATER 200 ML IV ONE ×2 (04:30)
[2022-11-08 04:52] LABS: African American GFR (CKD) 74 (>60 ml/min/1.73 sqM); Anion Gap 3 mmol/L; Blood Urea Nitrogen 18 mg/dL (9-20); Calcium 6.7 mg/dL (8.4-10.2); Carbon Dioxide 14 mmol/L (22-30); Chloride 115 mmol/L (98-107); Glucose 80 mg/dL (74-99); Non-African American GFR(CKD) 64 (>60 ml/min/1.73 sqM); Potassium 3.1 mmol/L (3.5-5.1); Sodium 132 mmol/L (137-145)
--- NOTE | 2022-11-08 06:03 | P.CRDCN ---
History of Present Illness Consult date: 11/08/22 Chief complaint: Diarrhea History of present illness: The patient is a very pleasant 62-year-old gentleman with no prior cardiac history but history of gastric bypass surgery in 2000 presented to the emergency department complaining of diarrhea. For the last few days he has been struggling was diarrhea associated with nausea and vomiting and mild abdominal discomfort. No fever and no chills according to him. The patient was tested positive for COVID-19 and currently is on isolation. Initially the patient was admitted to the fourth floor but subsequently and because he went into atrial fibrillation with rapid ventricular response he was transferred to the third floor/[facility]. The patient did not have any symptoms of heart racing or fluttering and no dizziness or lightheadedness and no presyncope or syncope and no symptoms of chest pain or chest discomfort or shortness of breath. No prior history of atrial fibrillation. 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 Beside that no history of diabetes or hypertension or dyslipidemia. The patient was started initially on Cardizem drip but his pressure did go down and for that reason he was switched into amiodarone IV and subsequently converted to normal sinus mechanism and since then he has been maintaining normal sinus mechanism. Further investigation was performed including CBC and that showed a hemoglobin of 7.7. The patient has no history of bleeding. Beside that he underwent a computed tomography scan of the abdomen and pelvis because of the abdominal discomfort that showed no acute abnormalities. The troponin came in to be slightly elevated likely secondary to tachycardia. The EKG showed sinus rhythm now with no significant ST or T-wave abnormalities. Past Medical History Past Medical History: Sleep Apnea/CPAP/BIPAP, Thyroid Disorder Additional Past Medical History / Comment(s): thyroid issue. pt reports not using CPAP/BIPAP at HS History of Any Multi-Drug Resistant Organisms: None Reported Additional Past Surgical History / Comment(s): gastric bypass. Umbilical hernia, 6x hernia surgeries, fell & broke hip in 2019 - pt was in [facility] at the time and reports getting a pin in hip. Past Anesthesia/Blood Transfusion Reactions: No Reported Reaction Past Psychological History: Depression Smoking Status: Never smoker Past Alcohol Use History: Occasional Additional Past Alcohol Use History / Comment(s): Patient reports moving to [place] in April 2022 and cutting back on alcohol us. Prior to moving to [place], pt reports drinking one 5th of whiskey a day, but only drinks occasionally now. Pt reports to RN that he drank one 5th of whiskey last Wednesday. Past Drug Use History: None Reported Medications and Allergies Home Medications Medication Instructions Recorded Confirmed Type Calcium Carbonate [Calcium] 600 mg PO DAILY 09/09/22 11/06/22 History Ergocalciferol (Vitamin D2) 1,250 mcg PO MOWE 09/09/22 11/06/22 History [Drisdol (50,000 Iu)] FLUoxetine HCL [PROzac] 20 mg PO DAILY 09/09/22 11/06/22 History Levothyroxine Sodium [Synthroid] 50 mcg PO DAILY 09/09/22 11/06/22 History Magnesium Oxide [Magnesium] 500 mg PO DAILY 09/09/22 11/06/22 History Diclofenac Sodium Gel [Voltaren 2 gm TOPICAL QID PRN 11/06/22 11/06/22 History Gel] Folic Acid 0.4 mg PO DAILY 11/06/22 11/06/22 History Ibuprofen [Motrin] 600 mg PO TID PRN 11/06/22 11/06/22 History Thiamine [Vitamin B-1] 100 mg PO DAILY 11/06/22 11/06/22 History Allergies Allergy/AdvReac Type Severity Reaction Status Date / Time No Known Allergies Allergy Verified 11/06/22 14:38 Physical Exam Vitals: Vital Signs Temp Pulse Resp BP Pulse Ox 11/08/22 05:19 78 18 94/62 97 11/08/22 04:26 93/57 11/08/22 04:21 91/64 11/08/22 04:16 95/62 11/08/22 04:01 69/55 11/08/22 03:59 73/54 11/08/22 03:56 71/50 11/08/22 03:52 75/56 11/08/22 03:24 99.2 F 173 H 19 88/62 93 L 11/08/22 01:20 99.6 F 82 15 114/75 97 11/07/22 23:01 83 11/07/22 13:55 97.4 F L 79 16 134/87 96 11/07/22 09:08 71 17 11/07/22 08:00 97.5 F L 71 17 110/73 98 Intake and Output 11/07/22 11/07/22 11/08/22 14:59 22:59 06:59 Intake Total 900 Balance 900 Intake: Intake, IV Titration 900 Amount Sodium Chloride 0.9% 1, 900 000 ml @ 75 mls/hr IV . [id number] [facility] Rx#:[id number] Other: Voiding Method Urinal Urinal Incontinent Incontinent # Voids 1 # Bowel Movements 1 2 Weight 97.522 kg - Constitutional General appearance: no acute distress - Respiratory Respiratory: bilateral: CTA - Cardiovascular Rhythm: regular Heart sounds: normal: S1, S2 Abnormal Heart Sounds: systolic murmur Results 11/08/22 03:36 11/08/22 03:36 Cardiac Enzymes 11/08/22 Range/Units 03:36 Troponin I 0.260 H* (0.000-0.034) ng/mL CBC 11/08/22 Range/Units 03:36 WBC 7.5 (3.8-10.6) k/uL RBC 2.55 L (4.30-5.90) m/uL Hgb 7.7 L (13.0-17.5) gm/dL Hct 24.3 L (39.0-53.0) % Plt Count 228 (150-450) k/uL Comprehensive Metabolic Panel 11/07/22 11/08/22 Range/Units 06:26 03:36 Sodium 137 132 L (137-145) mmol/L Potassium 3.5 3.1 L (3.5-5.1) mmol/L Chloride 115 H 115 H (98-107) mmol/L Carbon Dioxide 14 L 14 L (22-30) mmol/L BUN 18 18 (9-20) mg/dL Creatinine 1.27 H 1.21 (0.66-1.25) mg/dL Glucose 66 L 80 (74-99) mg/dL Calcium 6.2 L* 6.7 L (8.4-10.2) mg/dL Current Medications Generic Name Dose Route Start Last Admin Trade Name Freq PRN Reason Stop Dose Admin Acetaminophen 650 mg 11/06/22 14:40 11/06/22 17:43 Acetaminophen Tab 325 Mg Tab PO 650 mg Q6HR PRN Administration Mild Pain or Fever > 100.5 Ascorbic Acid 1,000 mg 11/06/22 21:00 11/07/22 20:30 Ascorbic Acid 500 Mg Tab PO 1,000 mg BID [place] Administration Calcium Carbonate/Glycine 500 mg 11/07/22 22:00 11/07/22 20:30 Calcium Carbonate 500 Mg Chewable PO 500 mg TID [place] Administration Cholecalciferol 50 mcg 11/06/22 20:45 11/07/22 09:04 Cholecalciferol 25 Mcg (1000 Iu) Tablet PO 50 mcg DAILY [place] Administration Diclofenac Sodium 2 gm 11/07/22 00:00 Diclofenac Sodium Gel 100 Gm Tube TOPICAL QID PRN Pain Protocol Fluoxetine HCl 20 mg 11/07/22 09:00 11/07/22 09:04 Fluoxetine Hcl 20 Mg Cap PO 20 mg DAILY [place] Administration Folic Acid 0.5 mg 11/07/22 09:00 11/07/22 09:04 Folic Acid 1 Mg Tab PO 0.5 mg DAILY [place] Administration Heparin Sodium (Porcine) 5,000 unit 11/07/22 00:00 11/08/22 00:11 Heparin Sodium,Porcine/Pf 5,000 Unit/0.5 Ml Syringe SQ 5,000 unit Q8HR [place] Administration Sodium Chloride 1,000 mls @ 75 mls/hr 11/06/22 14:45 11/07/22 20:31 Saline 0.9% IV 75 mls/hr .[id number] [place] Administration Amiodarone HCl 360 mg/ 200 mls @ 33.333 mls/hr 11/08/22 04:30 11/08/22 05:15 Dextrose/Water IV 11/08/22 10:29 1 mg/min .Q6H ONE 33.333 mls/hr Administration Protocol 1 MG/MIN Amiodarone HCl 450 mg/ 250 mls @ 16.667 mls/hr 11/08/22 10:30 Dextrose/Water IV 11/09/22 04:29 .Q15H [place] Protocol 0.5 MG/MIN Levothyroxine Sodium 50 mcg 11/07/22 06:30 11/07/22 05:43 Levothyroxine 50 Mcg Tab PO 50 mcg DAILY@0630 [place] Administration Magnesium Oxide 400 mg 11/07/22 09:00 11/07/22 09:04 Magnesium Oxide 400 Mg Tab PO 400 mg DAILY [place] Administration Miscellaneous Information 1 each 11/06/22 13:07 Potassium Replacement Protocol 1 Each Misc MISCELLANE DAILY PRN Per Protocol Protocol Miscellaneous Information 1 each 11/06/22 14:04 Magnesium Replacement Protocol 1 Each Misc MISCELLANE DAILY PRN Per Protocol Protocol Miscellaneous Information 1 each 11/06/22 22:51 Potassium Replacement Protocol 1 Each Misc MISCELLANE DAILY PRN Per Protocol Protocol Naloxone HCl 0.2 mg 11/06/22 14:40 Naloxone 0.4 Mg/Ml 1 Ml Vial IV Q2M PRN Opioid Reversal Thiamine HCl 100 mg 11/07/22 09:00 11/07/22 09:04 Thiamine 100 Mg Tab PO 100 mg DAILY [place] Administration Zinc Sulfate 220 mg 11/06/22 20:45 11/07/22 09:04 Zinc Sulfate 220 Mg Cap PO 220 mg DAILY [place] Administration Intake and Output 11/07/22 11/07/22 11/08/22 14:59 22:59 06:59 Intake Total 900 Balance 900 Intake: Intake, IV Titration 900 Amount Sodium Chloride 0.9% 1, 900 000 ml @ 75 mls/hr IV . [id number] [place] Rx#:[id number] Other: Voiding Method Urinal Urinal Incontinent Incontinent # Voids 1 # Bowel Movements 1 2 Weight 97.522 kg Patient Weight 11/08/22 06:59 Weight 97.522 kg 11/08/22 03:36 11/08/22 03:36 Assessment and Plan Assessment: Assessment COVID-19 infection Abdominal discomfort and nausea and vomiting and diarrhea likely secondary to COVID-19 infection Electrolytes abnormalities secondary to diarrhea Paroxysmal atrial fibrillation likely to be triggered by the infection and dehydration Evidence of myocardial injury was no evidence of ischemia by EKG or clinically. We'll follow-up on the Plan Electrolytes replacement Continue IV fluids for dehydration Continue amiodarone IV and switched to amiodarone by mouth down the line Hold on any anticoagulation in the light of anemia to further investigation and rule out bleeding. Beside that the patient NORMA-VASc score is 0. Obtain an echo to establish LV function without any valvular heart disease Follow-up with the patient
[2022-11-08] MEDS: SODIUM CHLORIDE 0.9% 1,000 ML IV SCH ×2 (07:29→20:54)
[2022-11-08] MEDS: LEVOTHYROXINE 50 MCG TAB PO SCH (07:29)
[2022-11-08] MEDS: POTASSIUM CHLORIDE ER 20 MEQ TAB.ER PO SCH ×2 (07:29→09:27)
[2022-11-08] MEDS: CHOLECALCIFEROL 25 MCG (1000 IU) TABLET PO SCH (09:27)
[2022-11-08] MEDS: FOLIC ACID 1 MG TAB PO SCH (09:27)
[2022-11-08] MEDS: FLUoxetine HCL 20 MG CAP PO SCH (09:27)
[2022-11-08] MEDS: THIAMINE 100 MG TAB PO SCH (09:27)
[2022-11-08] MEDS: MAGNESIUM OXIDE 400 MG TAB PO SCH (09:27)
[2022-11-08] MEDS: ZINC SULFATE 220 MG CAP PO SCH (09:28)
[2022-11-08] MEDS: ASCORBIC ACID 500 MG TAB PO SCH ×2 (09:28→20:53)
[2022-11-08] MEDS: CALCIUM CARBONATE 500 MG CHEWABLE PO SCH ×3 (09:28→20:54)
[2022-11-08 10:34] LABS: HCT 23.6 % (39.0-53.0); HGB 7.3 gm/dL (13.0-17.5); Hypochromasia Marked; MCH 29.6 pg (25.0-35.0); MCV 95.4 fL (80.0-100.0); Mean Platelet Volume 9.5; Platelet Count 247 k/uL (150-450); RBC 2.48 m/uL (4.30-5.90); WBC 7.6 k/uL (3.8-10.6)
[2022-11-08 11:04] LABS: Magnesium 1.2 mg/dL (1.5-2.4)
[2022-11-08] MEDS: PANTOPRAZOLE 40 MG/10 ML VIAL IVP SCH ×2 (12:14→20:53)
[2022-11-08] MEDS ORDERED: POTASSIUM CHLORIDE ER 20 MEQ TAB.ER PO ONE (12:39)
[2022-11-08] MEDS: AMIODARONE 450 MG in DEXTROSE 5% IN WATER 250 ML IV SCH ×2 (12:43)
[2022-11-08 12:51] LABS: Reticulocyte % 1.8 % (0.5-2.0)
--- NOTE | 2022-11-08 15:51 | P.PN ---
Subjective Progress Note Date: 11/07/22 Principal diagnosis: Covid 19 Patient is a 62-year-old male who is unvaccinated for COVID-19 patient was brought into the ER for evaluation of weakness no energy mention the patient was not able to get stand up and go to the bathroom patient has been dealing with the diarrhea off and on for couple of weeks, patient was noticed to have a positive covid test, however the patient was not hypoxic and CT abdominal pelvis with few bibasilar patchy groundglass opacity representing atelectasis and no evidence of colitis. On today's evaluation that is 11/07/2022, the patient denies having any fever or any chills, the patient is breathing comfortably on room air. Denies having any chest pain or shortness of breath occasional cough no abdominal pain still complaining of significant diarrhea no blood or mucus in the stool Objective - Vital Signs Vital signs: Vital Signs Temp 97.4 F L 11/07/22 13:55 Pulse 79 11/07/22 13:55 Resp 16 11/07/22 13:55 BP 134/87 11/07/22 13:55 Pulse Ox 96 11/07/22 13:55 FiO2 Intake & Output 11/06/22 11/07/22 11/07/22 18:59 06:59 18:59 Weight 97.522 kg 97.522 kg 97.522 kg Other: Voiding Method Urinal Urinal Incontinent # Voids 4 1 # Bowel Movements 1 1 - Exam GENERAL DESCRIPTION: An elderly male lying in bed in no distress RESPIRATORY SYSTEM: Unlabored breathing , decreased breath sounds at bases HEART: S1 S2 regular rate and rhythm , ABDOMEN: Soft , no tenderness EXTREMITIES: No edema feet - Labs CBC & Chem 7: 11/08/22 10:15 11/08/22 11:57 Labs: Abnormal Lab Results - Last 24 Hours (Table) 11/06/22 11/07/22 11/07/22 Range/Units 19:05 02:07 06:26 Sodium 134 L (137-145) mmol/L Potassium 3.2 L 3.3 L (3.5-5.1) mmol/L Chloride 114 H 115 H (98-107) mmol/L Carbon Dioxide 16 L 14 L (22-30) mmol/L Creatinine 1.38 H 1.27 H (0.66-1.25) mg/dL Glucose 66 L (74-99) mg/dL Calcium 6.2 L* 6.2 L* (8.4-10.2) mg/dL Assessment and Plan (1) COVID-19 Current Visit: Yes Status: Acute Code(s): U07.1 - COVID-19 SNOMED Code(s): 752820164 (2) Diarrhea Current Visit: Yes Status: Acute Code(s): R19.7 - DIARRHEA, UNSPECIFIED SNOMED Code(s): 27129502 Plan: 1patient present to hospital generalized weakness which is likely multifactorial could be related to his diarrhea has not patient did have significant diarrhea and evidence of prerenal status was low potassium, stool for C. diff is negative stool cultures pending 2patient with a positive COVID test however no significant respiratory symptoms the patient is currently not hypoxic or need for supplemental oxygen , treatment will be mostly supportive. 3patient to continue with heparin vitamin C and zinc no need for steroids or remdesivir at this point. 4 IV fluid. Time with Patient: Less than 30
--- NOTE | 2022-11-08 15:52 | P.PN ---
Subjective Progress Note Date: 11/08/22 Principal diagnosis: Covid 19 Patient is a 62-year-old male who is unvaccinated for COVID-19 patient was brought into the ER for evaluation of weakness no energy mention the patient was not able to get stand up and go to the bathroom patient has been dealing with the diarrhea off and on for couple of weeks, patient was noticed to have a positive covid test, however the patient was not hypoxic and CT abdominal pelvis with few bibasilar patchy groundglass opacity representing atelectasis and no evidence of colitis. On today's evaluation that is 11/08/2022, the patient remains to be afebrile, the patient is breathing comfortably on room air. The patient denies having any chest pain or shortness of breath, the patient did have occasional dry cough no abdominal pain , patient mentioned that he has resolved and did have soft bowel movement this morning Objective - Vital Signs Vital signs: Vital Signs Temp 97.8 F 11/08/22 08:00 Pulse 72 11/08/22 08:00 Resp 18 11/08/22 08:00 BP 92/61 11/08/22 08:00 Pulse Ox 97 11/08/22 08:00 FiO2 Intake & Output 11/07/22 11/08/22 11/08/22 18:59 06:59 18:59 Intake Total 900 Output Total 800 Balance 900 -800 Weight 97.522 kg Intake: Intake, IV Titration 900 Amount Sodium Chloride 0.9% 1, 900 000 ml @ 75 mls/hr IV . [id number] [facility] Rx#:[id number] Output: Urine 800 Other: Voiding Method Urinal Urinal Urinal Incontinent Incontinent Incontinent # Voids 1 0 # Bowel Movements 2 1 - Exam GENERAL DESCRIPTION: An elderly male lying in bed in no distress RESPIRATORY SYSTEM: Unlabored breathing , decreased breath sounds at bases HEART: S1 S2 regular rate and rhythm , ABDOMEN: Soft , no tenderness EXTREMITIES: No edema feet - Labs CBC & Chem 7: 11/08/22 10:15 11/08/22 11:57 Labs: Abnormal Lab Results - Last 24 Hours (Table) 11/07/22 11/08/22 11/08/22 Range/Units 13:20 03:36 03:36 RBC (4.30-5.90) m/uL Hgb (13.0-17.5) gm/dL Hct (39.0-53.0) % Sodium 132 L (137-145) mmol/L Potassium 3.1 L (3.5-5.1) mmol/L Chloride 115 H (98-107) mmol/L Carbon Dioxide 14 L (22-30) mmol/L Calcium 6.7 L (8.4-10.2) mg/dL Magnesium 1.2 L (1.5-2.4) mg/dL Troponin I 0.260 H* (0.000-0.034) ng/mL Free T3 pg/mL 2.2 L (2.8-5.3) pg/ml Urine Protein 1+ H (Negative) Urine Bilirubin 1+ H (Negative) Ur Leukocyte Esterase Large H (Negative) Urine WBC 22 H (0-5) /hpf Urine WBC Clumps Rare H (None) /hpf Urine Bacteria Few H (None) /hpf Hyaline Casts 5 H (0-2) /lpf Urine Mucus Few H (None) /hpf 11/08/22 11/08/22 11/08/22 Range/Units 03:36 07:46 10:15 RBC 2.55 L 2.48 L (4.30-5.90) m/uL Hgb 7.7 L 7.3 L (13.0-17.5) gm/dL Hct 24.3 L 23.6 L (39.0-53.0) % Sodium (137-145) mmol/L Potassium (3.5-5.1) mmol/L Chloride (98-107) mmol/L Carbon Dioxide (22-30) mmol/L Calcium (8.4-10.2) mg/dL Magnesium (1.5-2.4) mg/dL Troponin I 0.201 H* (0.000-0.034) ng/mL Free T3 pg/mL (2.8-5.3) pg/ml Urine Protein (Negative) Urine Bilirubin (Negative) Ur Leukocyte Esterase (Negative) Urine WBC (0-5) /hpf Urine WBC Clumps (None) /hpf Urine Bacteria (None) /hpf Hyaline Casts (0-2) /lpf Urine Mucus (None) /hpf 11/08/22 Range/Units 11:57 RBC (4.30-5.90) m/uL Hgb (13.0-17.5) gm/dL Hct (39.0-53.0) % Sodium (137-145) mmol/L Potassium 3.3 L (3.5-5.1) mmol/L Chloride (98-107) mmol/L Carbon Dioxide (22-30) mmol/L Calcium (8.4-10.2) mg/dL Magnesium (1.5-2.4) mg/dL Troponin I (0.000-0.034) ng/mL Free T3 pg/mL (2.8-5.3) pg/ml Urine Protein (Negative) Urine Bilirubin (Negative) Ur Leukocyte Esterase (Negative) Urine WBC (0-5) /hpf Urine WBC Clumps (None) /hpf Urine Bacteria (None) /hpf Hyaline Casts (0-2) /lpf Urine Mucus (None) /hpf Assessment and Plan (1) COVID-19 Current Visit: Yes Status: Acute Code(s): U07.1 - COVID-19 SNOMED Code(s): 651343200 (2) Diarrhea Current Visit: Yes Status: Acute Code(s): R19.7 - DIARRHEA, UNSPECIFIED SNOMED Code(s): 34316604 Plan: 1patient present to hospital generalized weakness which is likely multifactorial could be related to his diarrhea has not patient did have significant diarrhea and evidence of prerenal status was low potassium, stool for C. diff is negative stool cultures were not obtained and the patient did have overall resolution of his diarrhea 2patient with a positive COVID test however no significant respiratory symptoms the patient is currently not hypoxic or need for supplemental oxygen , treatment will be mostly supportive. 3patient to continue with heparin vitamin C and zinc no need for steroids or remdesivir and monitor clinical course closely Time with Patient: Less than 30
[2022-11-08 17:34] LABS: % Iron Saturation 34.22 (15.00-50.00); Iron 33 ug/dL (65-175); Total Iron Binding Capacity 97 ug/dL (228-460)
--- NOTE | 2022-11-08 17:55 | P.PN ---
Subjective Progress Note Date: 11/08/22 Principal diagnosis: Paroxysmal atrial fibrillation Intractable nausea/vomiting/diarrhea Profound hypokalemia Acute renal injury COVID-19 infection 62-year-old male in the emergency department for diarrhea. She notes diarrhea starting and he asked progressively gotten worse. He reports he stood up from a chair and had an episode of diarrhea, admits he still maintains bowel function. He has not tried anything for his symptoms. He denies nausea, vomiting, abdominal pain, palpitations, fevers. Denies recent travel or recent antibiotic use. He is scheduled to have his first colonoscopy in january of 2023. Patient had an initial lab work is remarkable for WBC is 11.4, hemoglobin 8.7, INR 1.2, sodium 133, potassium 2.6 lactic acid 2.9, calcium 6.3, magnesium 0.8, lipase 60, COVID positive. I interpreted the following; CT abdomen without contrast remarkable for fluid filled colon without focal wall thickening or surrounding inflammatory changes. Patient was given 2 L fluids, potassium, magnesium and calcium during his course of the ED. 11/08/2022 Patient is seen and evaluated on selective care unit; he went into atrial fibr illation with rapid ventricular response he was transferred to the third floor/selective minute. The patient did not have any symptoms of heart racing or fluttering and no dizziness or lightheadedness and no presyncope or syncope and no symptoms of chest pain or chest discomfort or shortness of breath. No prior history of atrial fibrillation. 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 Beside that no history of diabetes or hypertension or dyslipidemia. The patient was started initially on Cardizem drip but his pressure did go down and for that reason he was switched into amiodarone IV and subsequently converted to normal sinus mechanism and since then he has been maintaining normal sinus mechanism. Further investigation was performed including CBC and that showed a hemoglobin of 7.7. The patient has no history of bleeding. Beside that he underwent a computed tomography scan of the abdomen and pelvis because of the abdominal discomfort that showed no acute abnormalities. The tr oponin came in to be slightly elevated likely secondary to tachycardia. The EKG showed sinus rhythm now with no significant ST or T-wave abnormalities. Blood work reveals mild elevation of troponin; Patient has been evaluated by cardiology and recommended to continue with IV fluids, replace electrolytes; IV amiodarone is to be discontinued patient is transition to oral dose daily Objective - Vital Signs Vital signs: Vital Signs Temp 97.8 F 11/08/22 08:00 Pulse 72 11/08/22 08:00 Resp 18 11/08/22 08:00 BP 92/61 11/08/22 08:00 Pulse Ox 97 11/08/22 08:00 FiO2 Intake & Output 11/07/22 11/08/22 11/08/22 18:59 06:59 18:59 Intake Total 900 Output Total 800 Balance 900 -800 Weight 97.522 kg Intake: Intake, IV Titration 900 Amount Sodium Chloride 0.9% 1, 900 000 ml @ 75 mls/hr IV . [id number] [facility] Rx#:[id number] Output: Urine 800 Other: Voiding Method Urinal Urinal Urinal Incontinent Incontinent Incontinent # Voids 1 0 # Bowel Movements 2 1 - Exam General appearance: alert, in no apparent distress Head exam: Present: atraumatic, normocephalic, normal inspection Eye exam: Present: normal appearance ENT exam: Present: normal exam, mucous membranes moist Neck exam: Present: normal inspection. Absent: tenderness, meningismus, lymphadenopathy Respiratory exam: Present: normal lung sounds bilaterally. Absent: respiratory distress, wheezes, rales, rhonchi, stridor Cardiovascular Exam: Present: normal rhythm, tachycardia, normal heart sounds. Absent: systolic murmur, diastolic murmur, rubs, gallop, clicks GI/Abdominal exam: Present: soft, normal bowel sounds. Absent: distended, tenderness, guarding, rebound, rigid Back exam: Present: normal inspection Neurological exam: Present: alert, oriented X3, CN II-XII intact Psychiatric exam: Present: normal affect, normal mood Skin exam: Present: warm, dry, intact, normal color. Absent: rash - Labs CBC & Chem 7: 11/08/22 10:15 11/08/22 11:57 Labs: Abnormal Lab Results - Last 24 Hours (Table) 11/07/22 11/08/22 11/08/22 Range/Units 13:20 03:36 03:36 RBC (4.30-5.90) m/uL Hgb (13.0-17.5) gm/dL Hct (39.0-53.0) % Sodium 132 L (137-145) mmol/L Potassium 3.1 L (3.5-5.1) mmol/L Chloride 115 H (98-107) mmol/L Carbon Dioxide 14 L (22-30) mmol/L Calcium 6.7 L (8.4-10.2) mg/dL Magnesium 1.2 L (1.5-2.4) mg/dL Troponin I 0.260 H* (0.000-0.034) ng/mL Free T3 pg/mL 2.2 L (2.8-5.3) pg/ml Urine Protein 1+ H (Negative) Urine Bilirubin 1+ H (Negative) Ur Leukocyte Esterase Large H (Negative) Urine WBC 22 H (0-5) /hpf Urine WBC Clumps Rare H (None) /hpf Urine Bacteria Few H (None) /hpf Hyaline Casts 5 H (0-2) /lpf Urine Mucus Few H (None) /hpf 11/08/22 11/08/22 11/08/22 Range/Units 03:36 07:46 10:15 RBC 2.55 L 2.48 L (4.30-5.90) m/uL Hgb 7.7 L 7.3 L (13.0-17.5) gm/dL Hct 24.3 L 23.6 L (39.0-53.0) % Sodium (137-145) mmol/L Potassium (3.5-5.1) mmol/L Chloride (98-107) mmol/L Carbon Dioxide (22-30) mmol/L Calcium (8.4-10.2) mg/dL Magnesium (1.5-2.4) mg/dL Troponin I 0.201 H* (0.000-0.034) ng/mL Free T3 pg/mL (2.8-5.3) pg/ml Urine Protein (Negative) Urine Bilirubin (Negative) Ur Leukocyte Esterase (Negative) Urine WBC (0-5) /hpf Urine WBC Clumps (None) /hpf Urine Bacteria (None) /hpf Hyaline Casts (0-2) /lpf Urine Mucus (None) /hpf 11/08/22 Range/Units 11:57 RBC (4.30-5.90) m/uL Hgb (13.0-17.5) gm/dL Hct (39.0-53.0) % Sodium (137-145) mmol/L Potassium 3.3 L (3.5-5.1) mmol/L Chloride (98-107) mmol/L Carbon Dioxide (22-30) mmol/L Calcium (8.4-10.2) mg/dL Magnesium (1.5-2.4) mg/dL Troponin I (0.000-0.034) ng/mL Free T3 pg/mL (2.8-5.3) pg/ml Urine Protein (Negative) Urine Bilirubin (Negative) Ur Leukocyte Esterase (Negative) Urine WBC (0-5) /hpf Urine WBC Clumps (None) /hpf Urine Bacteria (None) /hpf Hyaline Casts (0-2) /lpf Urine Mucus (None) /hpf Assessment and Plan Assessment: 1. Intractable nausea/vomiting/diarrhea; likely related to COVID-19 infection - Patient has been placed on IV fluids; we'll start with clear liquid diet and advance as tolerated - Patient is scheduled to have colonoscopy done in January 2023 2. Profound hypokalemia; supplemented in ED; we will monitor electrolytes closely and make further recommendations accordingly 3. Acute renal injury; likely prerenal; patient has been placed on IV fluids; monitor strict [id number]'s, daily weights, renal function and electrolytes; avoid nephrotoxins and hypotension 4. Lactic acidosis; likely related to intractable vomiting and diarrhea/dehydration; continue with IV fluid; monitor lactic acid levels closely 5. COVID-19 infection with groundglass opacities seen in part of the lung with CT of the abdomen - We will consult ID for recommendations on antiviral therapy with REM -- We will start patient on COVID-19 vitamin cocktail with vitamin D, vitamin C and zinc sulfate - Subcu heparin for DVT prophylaxis 6. Hypothyroidism; levothyroxin 50 MCG daily 7. Depression; patient takes Prozac 20 mg daily DVT prophylaxis; SCDs/subcu heparin CODE STATUS; full code
[2022-11-09] MEDS: LEVOTHYROXINE 50 MCG TAB PO SCH (05:39)
[2022-11-09] MEDS: AMIODARONE 450 MG in DEXTROSE 5% IN WATER 250 ML IV SCH ×2 (07:47)
[2022-11-09 08:15] LABS: Calcium 6.9 mg/dL (8.4-10.2); Potassium 3.9 mmol/L (3.5-5.1)
[2022-11-09] MEDS: CALCIUM CARBONATE 500 MG CHEWABLE PO SCH ×3 (09:31→20:32)
[2022-11-09] MEDS: PANTOPRAZOLE 40 MG/10 ML VIAL IVP SCH ×2 (09:31→20:32)
[2022-11-09] MEDS: ASCORBIC ACID 500 MG TAB PO SCH ×2 (09:31→20:32)
[2022-11-09] MEDS: HEPARIN SODIUM,PORCINE/PF 5,000 UNIT/0.5 ML SYRINGE SQ SCH ×2 (09:31→16:56)
[2022-11-09] MEDS: CHOLECALCIFEROL 25 MCG (1000 IU) TABLET PO SCH (09:31)
[2022-11-09] MEDS: FLUoxetine HCL 20 MG CAP PO SCH (09:32)
[2022-11-09] MEDS: FOLIC ACID 1 MG TAB PO SCH (09:32)
[2022-11-09] MEDS: ZINC SULFATE 220 MG CAP PO SCH (09:32)
[2022-11-09] MEDS: MAGNESIUM OXIDE 400 MG TAB PO SCH (09:32)
[2022-11-09] MEDS: THIAMINE 100 MG TAB PO SCH (09:32)
[2022-11-09] MEDS: SODIUM CHLORIDE 0.9% 1,000 ML IV SCH (09:35)
--- NOTE | 2022-11-09 10:43 | P.PN ---
Subjective Progress Note Date: 11/09/22 PROGRESS NOTE The patient is a 62-year-old male who presented with severe diarrhea following COVID infection. Cardiology consultation was requested because of paroxysmal atrial fibrillation. He is back in sinus mechanism. He was hypokalemic. He denies any chest discomfort or dyspnea. He denies any dizziness or palpitations. He continues to be in sinus mechanism. His echo is pending. He continues to have some diarrhea but no nausea or vomiting, no abdominal pain. He had mild troponin elevation. He was anemic on presentation Medications: calcium, Prozac, levothyroxine PHYSICAL EXAMINATION: Blood pressure 112/70 heart rate 72 LUNGS: Clear to auscultation HEART: Regular rate and rhythm, S1, S2. No S3. No systolic murmur ABDOMEN: Soft, nontender, no organomegaly EXTREMETIES: No edema LAB: Potassium 3.9, hemoglobin 7.3, BUN 18, creatinine 1.1 IMPRESSION: 1. Severe diarrhea secondary to COVID infection 2. Paroxysmal atrial fibrillation, secondary to the metabolic abnormalities 3. Mild troponin elevation, type II myocardial injury 4. Anemia of unknown duration or etiology PLAN: 1. Review the echocardiogram report 2. Continue telemetry 3. No indication for anticoagulation 4. Depending on his progress further recommendations will be made Objective - Vital Signs Vital signs: Vital Signs Temp 97.4 F L 11/09/22 08:00 Pulse 73 11/09/22 08:00 Resp 18 11/09/22 08:00 BP 112/74 11/09/22 08:00 Pulse Ox 98 11/09/22 08:00 FiO2 Intake & Output 11/08/22 11/09/22 11/09/22 18:59 06:59 18:59 Intake Total 280 Output Total 800 Balance -520 Intake: Oral 280 Output: Urine 800 Other: Voiding Method Urinal Urinal Urinal Incontinent Incontinent Incontinent # Voids 1 # Bowel Movements 1 1 - Labs CBC & Chem 7: 11/08/22 10:15 11/09/22 07:20 Labs: Abnormal Lab Results - Last 24 Hours (Table) 11/08/22 11/08/22 11/08/22 Range/Units 03:36 11:57 11:57 Sodium (137-145) mmol/L Potassium 3.3 L (3.5-5.1) mmol/L Chloride (98-107) mmol/L Carbon Dioxide (22-30) mmol/L Calcium (8.4-10.2) mg/dL Magnesium 1.2 L (1.5-2.4) mg/dL Iron 33 L (65-175) ug/dL TIBC 97 L (228-460) ug/dL Transferrin 69.5 L (204.0-354.0) mg/dL Ferritin 847.0 H (22.0-322.0) ng/mL 11/09/22 Range/Units 07:20 Sodium 133 L (137-145) mmol/L Potassium (3.5-5.1) mmol/L Chloride 116 H (98-107) mmol/L Carbon Dioxide 14 L (22-30) mmol/L Calcium 6.9 L (8.4-10.2) mg/dL Magnesium (1.5-2.4) mg/dL Iron (65-175) ug/dL TIBC (228-460) ug/dL Transferrin (204.0-354.0) mg/dL Ferritin (22.0-322.0) ng/mL Microbiology - Last 24 Hours (Table) 11/08/22 11:00 Stool Culture - Preliminary Stool 11/07/22 21:50 Stool Culture - Preliminary Stool
--- NOTE | 2022-11-09 10:58 | P.CONS ---
History of Present Illness - Reason for Consult Consult date: 11/09/22 anemia Requesting physician: Derek Boswell - Chief Complaint diarrhea - History of Present Illness Mr. Michel is a 62-year-old male we have been asked to see in regards to new onset anemia. Patient denies any history of anemia, no epistaxis, unusual bruising, hemoptysis, hematuria, hematochezia, melena. States that he is going to be having a colonoscopy in January 2023 for changes in stool. Patient states Wednesday he was feeling tired and fatigued, stood up, had an episode of incontinence and uncontrolled stool, he continued to have stool for every 10 minutes for some time, he became weaker, sister recommended ER. On admission he was noted to have hypokalemia secondary to diarrhea, he has been supplemented. He was provided with hydration as well. Covid positive. He denied any fevers, chills, respiratory symptoms. Patient has a history of [place] bypass in 2000, he states that he takes B supplements. Documented in the past medical history he has a history of heavy alcohol use. He is medicated for hypothyroidism and depression. He has been seen by Cardiology due to episode of A. fib with RVR, he has no cardiac history. This resolved with medications. He has been seen by Infectious Disease for covid, mild resp symptoms. Iron studies show normal saturation, increased ferritin, decreased transferrin, low normal B12 at 226. Iron indices are normocytic, normochromic but, documented as hyporchromasia. Reticulocyte count is not increased adequately in relation to degree of anemia. Review of Systems 10 point review of systems is negative except as stated in HPI Past Medical History Past Medical History: Sleep Apnea/CPAP/BIPAP, Thyroid Disorder Additional Past Medical History / Comment(s): thyroid issue. pt reports not using CPAP/BIPAP at HS History of Any Multi-Drug Resistant Organisms: None Reported Additional Past Surgical History / Comment(s): gastric bypass. Umbilical hernia, 6x hernia surgeries, fell & broke hip in 2019 - pt was in [facility] at the time and reports getting a pin in hip. Past Anesthesia/Blood Transfusion Reactions: No Reported Reaction Past Psychological History: Depression Smoking Status: Never smoker Past Alcohol Use History: Occasional Additional Past Alcohol Use History / Comment(s): Patient reports moving to [place] in April 2022 and cutting back on alcohol use. Prior to moving to [place], pt reports drinking one 5th of whiskey a day, but only drinks occasionally now. Pt reports to RN that he drank one 5th of whiskey last [address] rd. Past Drug Use History: None Reported Medications and Allergies Home Medications Medication Instructions Recorded Confirmed Type Calcium Carbonate [Calcium] 600 mg PO DAILY 09/09/22 11/06/22 History Ergocalciferol (Vitamin D2) 1,250 mcg PO MOWE 09/09/22 11/06/22 History [Drisdol (50,000 Iu)] FLUoxetine HCL [PROzac] 20 mg PO DAILY 09/09/22 11/06/22 History Levothyroxine Sodium [Synthroid] 50 mcg PO DAILY 09/09/22 11/06/22 History Magnesium Oxide [Magnesium] 500 mg PO DAILY 09/09/22 11/06/22 History Diclofenac Sodium Gel [Voltaren 2 gm TOPICAL QID PRN 11/06/22 11/06/22 History Gel] Folic Acid 0.4 mg PO DAILY 11/06/22 11/06/22 History Ibuprofen [Motrin] 600 mg PO TID PRN 11/06/22 11/06/22 History Thiamine [Vitamin B-1] 100 mg PO DAILY 11/06/22 11/06/22 History Allergies Allergy/AdvReac Type Severity Reaction Status Date / Time No Known Allergies Allergy Verified 11/06/22 14:38 Physical Exam Vitals: Vital Signs Temp Pulse Resp BP Pulse Ox 11/08/22 23:33 98.0 F 75 18 105/68 97 11/08/22 20:49 98.0 F 85 18 117/76 98 11/08/22 14:00 77 18 100/67 96 Intake and Output 11/08/22 11/09/22 11/09/22 22:59 06:59 14:59 Intake Total 100 Balance 100 Intake: Oral 100 Other: Voiding Method Urinal Urinal Incontinent Incontinent # Voids 1 1 # Bowel Movements 1 - Constitutional General appearance: average body habitus, cooperative, no acute distress - EENT Eyes: anicteric sclerae, EOMI ENT: hearing grossly normal - Respiratory Respirations even and unlabored at rest - Integumentary Integumentary: pale - Neurologic Neurologic: CNII-XII intact (Grossly) - Psychiatric Psychiatric: A&O x's 3, appropriate affect, intact judgment & insight Results CBC & Chem 7: 11/08/22 10:15 11/09/22 07:20 Labs: Abnormal Lab Results - Last 24 Hours (Table) 11/08/22 11/08/22 11/08/22 Range/Units 03:36 07:46 10:15 RBC 2.48 L (4.30-5.90) m/uL Hgb 7.3 L (13.0-17.5) gm/dL Hct 23.6 L (39.0-53.0) % Sodium (137-145) mmol/L Potassium (3.5-5.1) mmol/L Chloride (98-107) mmol/L Carbon Dioxide (22-30) mmol/L Calcium (8.4-10.2) mg/dL Magnesium 1.2 L (1.5-2.4) mg/dL Iron (65-175) ug/dL TIBC (228-460) ug/dL Transferrin (204.0-354.0) mg/dL Ferritin (22.0-322.0) ng/mL Troponin I 0.201 H* (0.000-0.034) ng/mL 11/08/22 11/08/22 11/09/22 Range/Units 11:57 11:57 07:20 RBC (4.30-5.90) m/uL Hgb (13.0-17.5) gm/dL Hct (39.0-53.0) % Sodium 133 L (137-145) mmol/L Potassium 3.3 L (3.5-5.1) mmol/L Chloride 116 H (98-107) mmol/L Carbon Dioxide 14 L (22-30) mmol/L Calcium 6.9 L (8.4-10.2) mg/dL Magnesium (1.5-2.4) mg/dL Iron 33 L (65-175) ug/dL TIBC 97 L (228-460) ug/dL Transferrin 69.5 L (204.0-354.0) mg/dL Ferritin 847.0 H (22.0-322.0) ng/mL Troponin I (0.000-0.034) ng/mL Microbiology - Last 24 Hours (Table) 11/08/22 11:00 Stool Culture - Preliminary Stool 11/07/22 21:50 Stool Culture - Preliminary Stool CT scan - abdomen: report reviewed CT scan - pelvis: report reviewed Assessment and Plan (1) Normocytic normochromic anemia Current Visit: Yes Status: Acute Priority: High Code(s): D64.9 - ANEMIA, UNSPECIFIED SNOMED Code(s): 03224259 (2) COVID-19 Current Visit: Yes Status: Acute Priority: High Code(s): U07.1 - COVID-19 SNOMED Code(s): 480724520 (3) Diarrhea Current Visit: Yes Status: Acute Priority: High Code(s): R19.7 - DIARRHEA, UNSPECIFIED SNOMED Code(s): 49836488 Plan: Normocytic, normochromic anemia. Patient is COVID-19 positive. Quite likely his symptoms of diarrhea are related to the same. He had tried no treatments for diarrhea prior to hospitalization. Stool consistency is improving since admission. Covid infection is a contributing factor to anemia because of increased inflammation, AEB increased ferritin. Patient has a history of heavy alcohol use also contributing to inflammation and marrow suppression, likely some nutritional deficiencies that may not be grossly apparent as the patient is taking multiple B vitamin supplements-thiamine and folate. Additionally contributing is gastric bypass in 2000. Additional anemia workup ordered, hemolysis workup-though less likely suspected-SPEP, inflammatory workup will also be ordered. Transfuse for hemoglobin less than 7
--- NOTE | 2022-11-09 11:47 | CA ---
Transthoracic Echo Report Name: Stanislav Harrison Age: 62 Gender: M : 1960 Exam Date: 11/09/2022 07:52 Exam Location: [facility] Ht (in): 75 Wt (lb): 215 Ordering Physician: Odilon Huddleston MD ([id number]) Attending/Referring Phys: Tile Layer Drainage Bruna Ramos, LAUREANO Procedure CPT: Indications: Per dr huddleston, new consult, pos trop Cardiac Hx: Technical Quality: Fair Contrast 1: Total Dose (mL): Contrast 2: Total Dose (mL): MEASUREMENTS (Male / Female) Normal Values 2D ECHO LV Diastolic Diameter PLAX 4.5 cm 4.2 - 5.9 / 3.9 - 5.3 cm LV Systolic Diameter PLAX 2.8 cm IVS Diastolic Thickness 1.5 cm 0.6 - 1.0 / 0.6 - 0.9 cm LVPW Diastolic Thickness 1.6 cm 0.6 - 1.0 / 0.6 - 0.9 cm LV Relative Wall Thickness 0.7 RV Internal Dim ED PLAX 5.1 cm LA Volume 55.5 cm??? 18 - 58 / 22 - 52 cm??? M-MODE Aortic Root Diameter MM 3.7 cm LA Systolic Diameter MM 4.4 cm LA Ao Ratio MM 1.2 AV Cusp Separation MM 2.4 cm DOPPLER AV Peak Velocity 127.0 cm/s AV Peak Gradient 6.4 mmHg LVOT Peak Velocity 79.0 cm/s LVOT Peak Gradient 2.5 mmHg MV Area PHT 2.7 cm??? Mitral E Point Velocity 75.9 cm/s Mitral A Point Velocity 55.8 cm/s Mitral E to A Ratio 1.4 MV Deceleration Time 277.0 ms TR Peak Velocity 232.5 cm/s TR Peak Gradient 21.6 mmHg Right Ventricular Systolic Press 26.6 mmHg FINDINGS Left Ventricle Moderately increased left ventricular wall thickness. Normal left ventricular systolic function with no obvious regional wall motion abnormalities. Left ventricular ejection fraction is estimated at 55 %. Right Ventricle Normal right ventricular size and function. Right ventricular systolic pressure within normal limits. Right Atrium Normal right atrial size. Left Atrium Normal left atrial size. Mitral Valve Structurally normal mitral valve. Mild mitral annular calcification. Mild-to- moderate mitral regurgitation. Posteriorly directed mitral regurgitation jet. Aortic Valve No aortic valve stenosis or regurgitation. Tricuspid Valve Structurally normal tricuspid valve. Mild tricuspid regurgitation. Pulmonic Valve Structurally normal pulmonic valve. Trace pulmonic regurgitation. Pericardium No pericardial effusion. Aorta Normal size aortic root and proximal ascending aorta. CONCLUSIONS Left ventricular hypertrophy with normal LV systolic function Mild to moderate mitral regurgitation Previewed by: Dr. Marshall Lundberg MD (Electronically Signed) Final Date: 09 November 2022 11:46
--- NOTE | 2022-11-09 14:06 | CT ---
EXAMINATION TYPE: CT brain wo con DATE OF EXAM: 11/09/2022 COMPARISON: None HISTORY: Rt sided weakness CT DLP: 1201.[address] of the brain was performed. The ventricles, basal cisterns and sulci overlying the cerebral convexities demonstrate mild enlargem ent. There is no evidence for intracranial hemorrhage or sulcal effacement. There is decreased attenuation about the periventricular white matter and deep white matter of both c erebral hemispheres, compatible with chronic small vessel ischemia. Differential diagnosis does inclu de demyelination. No mass effects are seen.No midline shift. Osseous calvarium is intact. If symptoms persist consider MRI. IMPRESSION: 1. Age related atrophic and chronic small vessel ischemic change without acute intracranial process s een at this time.
[2022-11-09] MEDS ORDERED: LOPERAMIDE 2 MG CAP PO PRN (15:51)
[2022-11-09] MEDS ORDERED: LOPERAMIDE 2 MG CAP PO STA (15:51)
[2022-11-09 18:22] LABS: Protein, Total 4.3 g/dL (6.2-8.2)
[2022-11-09 18:33] LABS: Hepatitis A Antibody IgM Nonreactive (Nonreactive); Hepatitis B Core IgM Nonreactive (Nonreactive); Hepatitis B Surface Antigen Nonreactive (Nonreactive); Hepatitis C IgG Antibody Nonreactive (Nonreactive)
[2022-11-10] MEDS: SODIUM CHLORIDE 0.9% 1,000 ML IV SCH ×2 (02:05→11:33)
[2022-11-10] MEDS: HEPARIN SODIUM,PORCINE/PF 5,000 UNIT/0.5 ML SYRINGE SQ SCH ×3 (02:05→15:40)
[2022-11-10 02:56] LABS: Glucose,Whole Blood 114 mg/dL (70-110)
[2022-11-10] MEDS ORDERED: DILTIAZEM DRIP BOLUS FROM BAG 1 MG SOLN IV ONE (03:13)
[2022-11-10] MEDS: DILTIAZEM 125 MG in SODIUM CHLORIDE 0.9% 100 ML IV SCH (03:24)
--- NOTE | 2022-11-10 05:38 | P.PN ---
Subjective Progress Note Date: 11/09/22 Paroxysmal atrial fibrillation Intractable nausea/vomiting/diarrhea Profound hypokalemia Acute renal injury COVID-19 infection 62-year-old male in the emergency department for diarrhea. She notes diarrhea starting and he asked progressively gotten worse. He reports he stood up from a chair and had an episode of diarrhea, admits he still maintains bowel function. He has not tried anything for his symptoms. He denies nausea, vomiting, abdominal pain, palpitations, fevers. Denies recent travel or recent antibiotic use. He is scheduled to have his first colonoscopy in january of 2023. Patient had an initial lab work is remarkable for WBC is 11.4, hemoglobin 8.7, INR 1.2, sodium 133, potassium 2.6 lactic acid 2.9, calcium 6.3, magnesium 0.8, lipase 60, COVID positive. I interpreted the following; CT abdomen without contrast remarkable for fluid filled colon without focal wall thickening or surrounding inflammatory changes. Patient was given 2 L fluids, potassium, magnesium and calcium during his course of the ED. 11/08/2022 Patient is seen and evaluated on selective care unit; he went into atrial fibrillation with rapid ventricular response he was transferred to the third floor/selective minute. The patient did not have any symptoms of heart racing or fluttering and no dizziness or lightheadedness and no presyncope or syncope and no symptoms of chest pain or chest discomfort or shortness of breath. No prior history of atrial fibrillation. No history of coronary artery disease or congestive heart failure or cardiac arrhythmia and the patient never seen a copra processor in the past. Beside that no history of diabetes or hypertension or dyslipidemia. The patient was started initially on Cardizem drip but his pressure did go down and for that reason he was switched into amiodarone IV and subsequently converted to normal sinus mechanism and since then he has been maintaining normal sinus mechanism. Further investigation was performed including CBC and that showed a hemoglobin of 7.7. The patient has no history of bleeding. B eside that he underwent a computed tomography scan of the abdomen and pelvis because of the abdominal discomfort that showed no acute abnormalities. The troponin came in to be slightly elevated likely secondary to tachycardia. The EKG showed sinus rhythm now with no significant ST or T-wave abnormalities. Blood work reveals mild elevation of troponin; Patient has been evaluated by cardiology and recommended to continue with IV fluids, replace electrolytes; IV amiodarone is to be discontinued patient is transition to oral dose daily 11/09/2022 Patient is seen and evaluated in follow-up this morning and continues to feel generalized weakness and continues with loose stools. Per nursing staff when assisting to clean the patient up patient was significantly weak on the right. Patient denied any headache, dizziness, or lightheadedness. Will obtain a CT of the brain and also consult neurology. Recommend PT/OT therapy evaluation for significant weakness. C. diff testing was negative on the stool and will add Imodium and encourage oral intake and advance as tolerated. Patient is ma intaining on vitamins and zinc supplements along with subcutaneous heparin with anxiety following closely. Patient denies chest pain or shortness of breath. Afebrile. Recommend a.m. labs as well. Review of systems: Constitutional: reports of fatigue, no fever, or chills Cardiovascular: No reports of chest pain or palpitations Respiratory: No reports of shortness of breath or cough GI: No reports of nausea, vomiting, reports continued diarrhea, decreased appetite : No reports of dysuria or retention Neurovascular: reports of generalized weakness All medications have been reviewed Active Medications Acetaminophen (Acetaminophen Tab 325 Mg Tab) 650 mg PO Q6HR PRN PRN Reason: Mild Pain or Fever > 100.5 Last Admin: 11/06/22 17:43 Dose: 650 mg Ascorbic Acid (Ascorbic Acid 500 Mg Tab) 1,000 mg PO BID [facility] Last Admin: 11/09/22:31 Dose: 1,000 mg Calcium Carbonate/Glycine (Calcium Carbonate 500 Mg Chewable) 500 mg PO TID [facility] Last Admin: 11/09/22: Dose: 500 mg Cholecalciferol (Cholecalciferol 25 Mcg (1000 Iu) Tablet) 50 mcg PO DAILY [facility] Last Admin: 11/09/22: Dose: 50 mcg Diclofenac Sodium (Diclofenac Sodium Gel 100 Gm Tube) 2 gm TOPICAL QID PRN; Protocol PRN Reason: Pain Fluoxetine HCl (Fluoxetine Hcl 20 Mg Cap) 20 mg PO DAILY [facility] Last Admin: 11/09/22:32 Dose: 20 mg Folic Acid (Folic Acid 1 Mg Tab) 0.5 mg PO DAILY [facility] Last Admin: 11/09/22:32 Dose: 0.5 mg Heparin Sodium (Porcine) (Heparin Sodium,Porcine/Pf 5,000 Unit/0.5 Ml Syringe) 5,000 unit SQ Q8HR [facility] Last Admin: 11/09/22 09:31 Dose: 5,000 unit Sodium Chloride (Saline 0.9%) 1,000 mls @ 75 mls/hr IV .[id number] [facility] Last Admin: 11/09/22 09:35 Dose: Not Given Levothyroxine Sodium (Levothyroxine 50 Mcg Tab) 50 mcg PO DAILY@0630 [facility] Last Admin: 11/09/22 05:39 Dose: 50 mcg Magnesium Oxide (Magnesium Oxide 400 Mg Tab) 400 mg PO DAILY [facility] Last Admin: 11/09/22 09:32 Dose: 400 mg Miscellaneous Information (Magnesium Replacement Protocol 1 Each Mis) 1 each MISCELLANE DAILY PRN; Protocol PRN Reason: Per Protocol Miscellaneous Information (Potassium Replacement Protocol 1 Each Mis) 1 each MISCELLANE DAILY PRN; Protocol PRN Reason: Per Protocol Naloxone HCl (Naloxone 0.4 Mg/Ml 1 Ml Vial) 0.2 mg IV Q2M PRN PRN Reason: Opioid Reversal Pantoprazole Sodium (Pantoprazole 40 Mg/10 Ml Vial) 40 mg IVP BID [facility] Last Admin: 11/09/22 09:31 Dose: 40 mg Thiamine HCl (Thiamine 100 Mg Tab) 100 mg PO DAILY [facility] Last Admin: 11/09/22 09:32 Dose: 100 mg Zinc Sulfate (Zinc Sulfate 220 Mg Cap) 220 mg PO DAILY [facility] Last Admin: 11/09/22 09:32 Dose: 220 mg Physical exam: Gen: This is a 62-year-old male awake, alert and oriented 3, well-developed, well-nourished, ill-appearing. HEENT: Head is atraumatic, normocephalic. Pupils equal, round. Sclerae is anicteric. NECK: Supple. No JVD. No lymphadenopathy. No thyromegaly. LUNGS: Breath sounds diminished bilaterally with some scattered rhonchi noted. No intercostal retractions. HEART: S1, S2 are muffled, irregular ABDOMEN: Soft. Bowel sounds are present. No masses. No tenderness. EXTREMITIES: No pedal edema. No calf tenderness. NEUROLOGICAL: Patient is awake, alert and oriented x3. Cranial nerves 2 through 12 are grossly intact. Diffusely weak Assessment: -Intractable nausea/vomiting/diarrhea; likely related to COVID-19 infection -Profound hypokalemia; improved after replacement -Right side weakness, rule out TIA versus CVA -Acute renal injury; likely prerenal secondary to dehydration with nausea/vomiting/diarrhea -Lactic acidosis; likely related to intractable vomiting and diarrhea/dehydration; improved -COVID-19 infection with groundglass opacities seen in part of the lung with CT of the abdomen -Hypothyroidism -Depression history -DVT prophylaxis; SCDs/subcu heparin -No code Plan: Recommend continue current medications and multiple medical consultations following. Infectious disease is following patient is maintained on vitamins and zinc supplements along with subcutaneous heparin for COVID-19. Patient is not having any respiratory distress and is above 95% on room air Patient continues to have loose stools although C. diff testing has been negative will add Imodium encouraged oral intake as tolerated Patient with some right-sided weakness and have obtained a CT of the brain showing normal age-related changes with no evidence of mass or midline shift and no acute process noted at this time, we'll consult neurology and appreciate input and recommendations Overall generalized weakness, recommend PT/OT therapy evaluation Recommend continue telemetry monitoring Recommend to replace electrolytes per protocol and will repeat a.m. labs Due to multiple complex medical issues, prognosis is guarded The impression and plan of care has been dictated by Priscilla Steven, Nurse Practitioner as directed. Dr. Mark MD I have performed a history and examination and MDM of this patient, discussed the same with the dictator, and agree with the dictator's assessment and plan as written ,documented as a scribe. Based on total visit time, I have performed more than 50% of the visit. Objective - Vital Signs Vital signs: Vital Signs Temp 98.0 F 11/08/22 23:33 Pulse 75 11/08/22 23:33 Resp 18 11/08/22 23:33 BP 105/68 11/08/22 23:33 Pulse Ox 97 11/08/22 23:33 FiO2 Intake & Output 11/08/22 11/09/22 11/09/22 18:59 06:59 18:59 Intake Total 280 Output Total 800 Balance -520 Intake: Oral 280 Output: Urine 800 Other: Voiding Method Urinal Urinal Urinal Incontinent Incontinent Incontinent # Voids 1 # Bowel Movements 1 1 - Labs CBC & Chem 7: 11/08/22 10:15 11/09/22 07:20 Labs: Abnormal Lab Results - Last 24 Hours (Table) 11/08/22 11/08/22 11/08/22 Range/Units 03:36 10:15 11:57 RBC 2.48 L (4.30-5.90) m/uL Hgb 7.3 L (13.0-17.5) gm/dL Hct 23.6 L (39.0-53.0) % Sodium (137-145) mmol/L Potassium 3.3 L (3.5-5.1) mmol/L Chloride (98-107) mmol/L Carbon Dioxide (22-30) mmol/L Calcium (8.4-10.2) mg/dL Magnesium 1.2 L (1.5-2.4) mg/dL Iron (65-175) ug/dL TIBC (228-460) ug/dL Transferrin (204.0-354.0) mg/dL Ferritin (22.0-322.0) ng/mL 11/08/22 11/09/22 Range/Units 11:57 07:20 RBC (4.30-5.90) m/uL Hgb (13.0-17.5) gm/dL Hct (39.0-53.0) % Sodium 133 L (137-145) mmol/L Potassium (3.5-5.1) mmol/L Chloride 116 H (98-107) mmol/L Carbon Dioxide 14 L (22-30) mmol/L Calcium 6.9 L (8.4-10.2) mg/dL Magnesium (1.5-2.4) mg/dL Iron 33 L (65-175) ug/dL TIBC 97 L (228-460) ug/dL Transferrin 69.5 L (204.0-354.0) mg/dL Ferritin 847.0 H (22.0-322.0) ng/mL Microbiology - Last 24 Hours (Table) 11/08/22 11:00 Stool Culture - Preliminary Stool 11/07/22 21:50 Stool Culture - Preliminary Stool
[2022-11-10] MEDS: LEVOTHYROXINE 50 MCG TAB PO SCH (05:50)
[2022-11-10] MEDS: ASCORBIC ACID 500 MG TAB PO SCH ×2 (10:36→20:08)
[2022-11-10] MEDS: CHOLECALCIFEROL 25 MCG (1000 IU) TABLET PO SCH (10:37)
[2022-11-10] MEDS: THIAMINE 100 MG TAB PO SCH (10:37)
[2022-11-10] MEDS: CALCIUM CARBONATE 500 MG CHEWABLE PO SCH ×3 (10:37→20:08)
[2022-11-10] MEDS: MAGNESIUM OXIDE 400 MG TAB PO SCH (10:37)
[2022-11-10] MEDS: ZINC SULFATE 220 MG CAP PO SCH (10:37)
[2022-11-10] MEDS: FOLIC ACID 1 MG TAB PO SCH (10:37)
[2022-11-10] MEDS: PANTOPRAZOLE 40 MG/10 ML VIAL IVP SCH ×2 (10:38→20:09)
[2022-11-10] MEDS: FLUoxetine HCL 20 MG CAP PO SCH (10:38)
[2022-11-10 12:21] LABS: Calcium 7.4 mg/dL (8.4-10.2)
[2022-11-10 12:33] LABS: Magnesium 1.2 mg/dL (1.6-2.3); Potassium 4.1 mmol/L (3.5-5.1)
[2022-11-10 13:37] LABS: Basophils % (A) 0 %; Eosinophils % (A) 0 %; HCT 24.3 % (39.0-53.0); HGB 7.4 gm/dL (13.0-17.5); Hypochromasia Marked; Lymphocytes # (A) 1.7 k/uL (1.0-4.8); Lymphocytes % (A) 18 %; MCH 29.5 pg (25.0-35.0); MCHC 30.4 g/dL (31.0-37.0); MCV 97.1 fL (80.0-100.0); Mean Platelet Volume 8.9; Monocytes # (A) 0.5 k/uL (0-1.0); Monocytes % (A) 5 %; Neutrophils # (A) 6.8 k/uL (1.3-7.7); Neutrophils % (A) 75 %; Platelet Count 320 k/uL (150-450); RDW 14.3 % (11.5-15.5); WBC 9.2 k/uL (3.8-10.6)
[2022-11-10 13:47] LABS: Albumin 1.57 g/dL (3.80-4.90); Gamma Globulin 1.05 g/dL (0.70-1.50)
--- NOTE | 2022-11-10 13:53 | P.PN ---
Subjective Progress Note Date: 11/10/22 PROGRESS NOTE The patient is a 62-year-old male who presented with severe diarrhea following COVID infection. Cardiology consultation was requested because of paroxysmal atrial fibrillation. He is back in sinus mechanism. He was hypokalemic. He denies any chest discomfort or dyspnea. He denies any dizziness or palpitations. He continues to be in sinus mechanism. His echo is pending. He continues to have some diarrhea but no nausea or vomiting, no abdominal pain. He had mild troponin elevation. He was anemic on presentation November 10: The patient feels better overall, he continues to have mild diarrhea but better. He denies any chest discomfort, dizziness or palpitations. He continues to be in sinus mechanism at this time. His echocardiogram showed an ejection fraction of 55% with [id number] mitral regurgitation Medications: calcium, Prozac, levothyroxine, IV Cardizem PHYSICAL EXAMINATION: Blood pressure 109/60 heart rate 85 LUNGS: Clear to auscultation HEART: Regular rate and rhythm, S1, S2. No S3. No systolic murmur ABDOMEN: Soft, nontender, no organomegaly EXTREMETIES: No edema LAB: Potassium 4.1, hemoglobin 7.4, BUN 17, creatinine 1.05 IMPRESSION: 1. Severe diarrhea secondary to COVID infection 2. Paroxysmal atrial fibrillation, secondary to the metabolic abnormalities, his risk score is 0 3. Mild troponin elevation, type II myocardial injury 4. Anemia of unknown duration or etiology PLAN: 1. Stop IV Cardizem 2. Start oral Cardizem 3. Increase physical activity 4. If he continues having paroxysmal atrial fibrillation and further treatment will be recommended. Objective - Vital Signs Vital signs: Vital Signs Temp 98.6 F 11/10/22 11:31 Pulse 85 11/10/22 11:31 Resp 18 11/10/22 11:31 BP 109/66 11/10/22 11:31 Pulse Ox 95 11/10/22 11:31 FiO2 Intake & Output 11/09/22 11/10/22 11/10/22 18:59 06:59 18:59 Intake Total 118 540 236 Balance 118 540 236 Weight 97.522 kg Intake: Oral 118 540 236 Other: Voiding Method Urinal Urinal Urinal Incontinent Incontinent Incontinent # Voids 2 # Bowel Movements 2 - Labs CBC & Chem 7: 11/10/22 13:19 11/10/22 10:58 Labs: Abnormal Lab Results - Last 24 Hours (Table) 11/09/22 11/09/22 11/09/22 Range/Units 10:12 11:48 11:48 RBC (4.30-5.90) m/uL Hgb (13.0-17.5) gm/dL Hct (39.0-53.0) % MCHC (31.0-37.0) g/dL ESR 34 H (0-15) mm/hr Haptoglobin 267.0 H (31.2-198.0) mg/dL Chloride (98-107) mmol/L Carbon Dioxide (22-30) mmol/L POC Glucose (mg/dL) (70-110) mg/dL Calcium (8.4-10.2) mg/dL Magnesium (1.6-2.3) mg/dL Total Protein (PEP) 4.3 L (6.2-8.2) g/dL Albumin (PEP) 1.57 L (3.80-4.90) g/dL RBC Folate 1,120 H (280 - 791) ng/mL 11/10/22 11/10/22 11/10/22 Range/Units 02:54 10:58 13:19 RBC 2.50 L (4.30-5.90) m/uL Hgb 7.4 L (13.0-17.5) gm/dL Hct 24.3 L (39.0-53.0) % MCHC 30.4 L (31.0-37.0) g/dL ESR (0-15) mm/hr Haptoglobin (31.2-198.0) mg/dL Chloride 121 H (98-107) mmol/L Carbon Dioxide 13 L (22-30) mmol/L POC Glucose (mg/dL) 114 H (70-110) mg/dL Calcium 7.4 L (8.4-10.2) mg/dL Magnesium 1.2 L (1.6-2.3) mg/dL Total Protein (PEP) (6.2-8.2) g/dL Albumin (PEP) (3.80-4.90) g/dL RBC Folate (280 - 791) ng/mL Microbiology - Last 24 Hours (Table) 11/07/22 21:50 Stool Culture - Preliminary Stool
[2022-11-10] MEDS ORDERED: Magnesium Replacement Protocol 1 EACH MISC MISCELLANE PRN (14:21)
[2022-11-10] MEDS: DILTIAZEM ORAL 30 MG TAB PO SCH ×2 (15:40→20:08)
[2022-11-10] MEDS: MAGNESIUM SULFATE-D5W PMX 1 GM in DEXTROSE/WATER 1 100ML.BAG IVPB SCH ×3 (15:40→17:57)
--- NOTE | 2022-11-10 17:00 | P.PN ---
Subjective Progress Note Date: 11/10/22 Paroxysmal atrial fibrillation Intractable nausea/vomiting/diarrhea Profound hypokalemia Acute renal injury COVID-19 infection 62-year-old male in the emergency department for diarrhea. She notes diarrhea starting and he asked progressively gotten worse. He reports he stood up from a chair and had an episode of diarrhea, admits he still maintains bowel function. He has not tried anything for his symptoms. He denies nausea, vomiting, abdominal pain, palpitations, fevers. Denies recent travel or recent antibiotic use. He is scheduled to have his first colonoscopy in january of 2023. Patient had an initial lab work is remarkable for WBC is 11.4, hemoglobin 8.7, INR 1.2, sodium 133, potassium 2.6 lactic acid 2.9, calcium 6.3, magnesium 0.8, lipase 60, COVID positive. I interpreted the following; CT abdomen without contrast remarkable for fluid filled colon without focal wall thickening or surrounding inflammatory changes. Patient was given 2 L fluids, potassium, magnesium and calcium during his course of the ED. 11/08/2022 Patient is seen and evaluated on selective care unit; he went into atrial fibrillation with rapid ventricular response he was transferred to the third floor/selective minute. The patient did not have any symptoms of heart racing or fluttering and no dizziness or lightheadedness and no presyncope or syncope and no symptoms of chest pain or chest discomfort or shortness of breath. No prior history of atrial fibrillation. No history of coronary artery disease or congestive heart failure or cardiac arrhythmia and the patient never seen a guard immigration in the past. Beside that no history of diabetes or hypertension or dyslipidemia. The patient was started initially on Cardizem drip but his pressure did go down and for that reason he was switched into amiodarone IV and subsequently converted to normal sinus mechanism and since then he has been maintaining normal sinus mechanism. Further investigation was performed including CBC and that showed a hemoglobin of 7.7. The patient has no history of bleeding. B eside that he underwent a computed tomography scan of the abdomen and pelvis because of the abdominal discomfort that showed no acute abnormalities. The troponin came in to be slightly elevated likely secondary to tachycardia. The EKG showed sinus rhythm now with no significant ST or T-wave abnormalities. Blood work reveals mild elevation of troponin; Patient has been evaluated by cardiology and recommended to continue with IV fluids, replace electrolytes; IV amiodarone is to be discontinued patient is transition to oral dose daily 11/09/2022 Patient is seen and evaluated in follow-up this morning and continues to feel generalized weakness and continues with loose stools. Per nursing staff when assisting to clean the patient up patient was significantly weak on the right. Patient denied any headache, dizziness, or lightheadedness. Will obtain a CT of the brain and also consult neurology. Recommend PT/OT therapy evaluation for significant weakness. C. diff testing was negative on the stool and will add Imodium and encourage oral intake and advance as tolerated. Patient is ma intaining on vitamins and zinc supplements along with subcutaneous heparin with anxiety following closely. Patient denies chest pain or shortness of breath. Afebrile. Recommend a.m. labs as well. 11/10/2022 Patient is seen in follow-up today with multiple medical consultations including cardiology, hematology, infectious disease, and now neurology following. Patient with significant weakness in all upper and lower extremities with neurology undergoing workup recommending aspirin as patient is not on any anticoagulation at this time. Cardiology is following and patient was transitioned back to IV Cardizem although being changed to oral with close monitoring. Magnesium found to be significantly low at 1.2 and will replace per protocol and recommend repeat labs. Hemoglobin is mildly low at 7.4 and undergoing anemia workup with hematology following. Patient with Covid and extreme weakness will need ECF and discharge planning in process. Recommend close monitoring of labs and replace electrolytes per protocol. Patient was started on Imodium as C. diff testing 2 was negative. Patient continues to have loose stools although somewhat improved. Encouraged oral intake and incr eased activity as tolerated. Recommend PT/OT therapy daily. Patient denies chest pain or shortness of breath. Patient is 97% on room air. Patient will continue on vitamin and zinc supplements with anxiety following closely. Recommend gentle IV hydration. Review of systems: Constitutional: reports of fatigue, no fever, or chills Cardiovascular: No reports of chest pain or palpitations Respiratory: No reports of shortness of breath or cough GI: No reports of nausea, vomiting, reports continued diarrhea, decreased appetite : No reports of dysuria or retention Neurovascular: reports of generalized weakness All medications have been reviewed Active Medications Acetaminophen (Acetaminophen Tab 325 Mg Tab) 650 mg PO Q6HR PRN PRN Reason: Mild Pain or Fever > 100.5 Last Admin: 11/06/22 17:43 Dose: 650 mg Ascorbic Acid (Ascorbic Acid 500 Mg Tab) 1,000 mg PO BID [facility] Last Admin: 11/10/22 10:36 Dose: 1,000 mg Calcium Carbonate/Glycine (Calcium Carbonate 500 Mg Chewable) 500 mg PO TID [facility] Last Admin: 11/10/22 15:40 Dose: 500 mg Cholecalciferol (Cholecalciferol 25 Mcg (1000 Iu) Tablet) 50 mcg PO DAILY [facility] Last Admin: 11/10/22 10:37 Dose: 50 mcg Diclofenac Sodium (Diclofenac Sodium Gel 100 Gm Tube) 2 gm TOPICAL QID PRN; Protocol PRN Reason: Pain Diltiazem HCl (Diltiazem Oral 30 Mg Tab) 30 mg PO TID [facility] Last Admin: 11/10/22 15:40 Dose: 30 mg Fluoxetine HCl (Fluoxetine Hcl 20 Mg Cap) 20 mg PO DAILY [facility] Last Admin: 11/10/22 10:38 Dose: 20 mg Folic Acid (Folic Acid 1 Mg Tab) 0.5 mg PO DAILY [facility] Last Admin: 11/10/22 10:37 Dose: 0.5 mg Heparin Sodium (Porcine) (Heparin Sodium,Porcine/Pf 5,000 Unit/0.5 Ml Syringe) 5,000 unit SQ Q8HR [facility] Last Admin: 11/10/22 15:40 Dose: 5,000 unit Sodium Chloride (Saline 0.9%) 1,000 mls @ 75 mls/hr IV .[id number] [facility] Last Admin: 11/10/22 11:33 Dose: 75 mls/hr Diltiazem HCl 125 mg/ Sodium (Chloride) 125 mls @ 5 mls/hr IV .Q24H [facility] Last Admin: 11/10/22 03:24 Dose: 5 mg/hr, 5 mls/hr Magnesium Sulfate/Dextrose 1 (gm/ IV Solution) 100 mls @ 100 mls/hr IVPB Q1H [facility] Stop: 11/10/22 18:29 Last Admin: 11/10/22 16:50 Dose: 100 mls/hr Levothyroxine Sodium (Levothyroxine 50 Mcg Tab) 50 mcg PO DAILY@0630 [facility] Last Admin: 11/10/22 05:50 Dose: 50 mcg Loperamide HCl (Loperamide 2 Mg Cap) 2 mg PO QID PRN PRN Reason: Diarrhea Magnesium Oxide (Magnesium Oxide 400 Mg Tab) 400 mg PO DAILY [facility] Last Admin: 11/10/22 10:37 Dose: 400 mg Miscellaneous Information (Magnesium Replacement Protocol 1 Each Misc) 1 each MISCELLANE DAILY PRN; Protocol PRN Reason: Per Protocol Miscellaneous Information (Potassium Replacement Protocol 1 Each Misc) 1 each MISCELLANE DAILY PRN; Protocol PRN Reason: Per Protocol Miscellaneous Information (Magnesium Replacement Protocol 1 Each Misc) 1 each MISCELLANE DAILY PRN; Protocol PRN Reason: Per Protocol Naloxone HCl (Naloxone 0.4 Mg/Ml 1 Ml Vial) 0.2 mg IV Q2M PRN PRN Reason: Opioid Reversal Pantoprazole Sodium (Pantoprazole 40 Mg/10 Ml Vial) 40 mg IVP BID [facility] Last Admin: 11/10/22 10:38 Dose: 40 mg Thiamine HCl (Thiamine 100 Mg Tab) 100 mg PO DAILY [facility] Last Admin: 11/10/22 10:37 Dose: 100 mg Zinc Sulfate (Zinc Sulfate 220 Mg Cap) 220 mg PO DAILY [facility] Last Admin: 11/10/22 10:37 Dose: 220 mg Physical exam: Gen: This is a 62-year-old male awake, alert and oriented 3, well-developed, well-nourished, ill-appearing. HEENT: Head is atraumatic, normocephalic. Pupils equal, round. Sclerae is anicteric. NECK: Supple. No JVD. No lymphadenopathy. No thyromegaly. LUNGS: Breath sounds diminished bilaterally with some scattered rhonchi noted. No intercostal retractions. HEART: S1, S2 are muffled, irregular ABDOMEN: Soft. Bowel sounds are present. No masses. No tenderness. EXTREMITIES: No pedal edema. No calf tenderness. NEUROLOGICAL: Patient is awake, alert and oriented x3. Cranial nerves 2 through 12 are grossly intact. Diffusely weak Assessment: -Intractable nausea/vomiting/diarrhea; likely related to COVID-19 infection -Profound hypokalemia; improved after replacement -Severe hypomagnesemia likely due to diarrhea -Right side weakness, rule out TIA versus CVA -Acute renal injury; likely prerenal secondary to dehydration with nausea/vomiting/diarrhea -Lactic acidosis; likely related to intractable vomiting and diarrhea/dehydration; improved -COVID-19 infection with groundglass opacities seen in part of the lung with CT of the abdomen -Hypothyroidism -Gait dysfunction with generalized weakness -Depression history -DVT prophylaxis; SCDs/subcu heparin -No code Plan: Recommend continue current medications and multiple medical consultations following. Infectious disease is following patient is maintained on vitamins and zinc supplements along with subcutaneous heparin for COVID-19. Patient is not having any respiratory distress and is above 95% on room air Patient continues to have loose stools although C. diff testing has been negative will add Imodium encouraged oral intake as tolerated Patient with some right-sided weakness and have obtained a CT of the brain showing normal age-related changes with no evidence of mass or midline shift and no acute process noted at this time, neurology following and undergoing neurological workup for upper and lower extremity weakness bilaterally. Recommending aspirin and will start low-dose baby aspirin and monitor closely. Overall generalized weakness, recommend PT/OT therapy evaluation, case management also following working on discharge planning and possible ECF and will need a Covid hub Recommend continue telemetry monitoring with cardiology following and patient was on IV Cardizem although being discontinued and transitioned oral Cardizem with close monitoring. Recommend to replace electrolytes per protocol and will repeat a.m. labs, magnesium critically low at 1.2 and will replace Due to multiple complex medical issues, prognosis is extremely guarded The impression and plan of care has been dictated by Priscilla Steven, Nurse Practitioner as directed. Dr. Mark MD I have performed a history and examination and MDM of this patient, discussed the same with the dictator, and agree with the dictator's assessment and plan as written ,documented as a scribe. Based on total visit time, I have performed more than 50% of the visit. Objective - Vital Signs Vital signs: Vital Signs Temp 99.3 F 11/10/22 15:37 Pulse 97 11/10/22 15:37 Resp 18 11/10/22 15:37 BP 130/77 11/10/22 15:37 Pulse Ox 97 11/10/22 15:37 FiO2 Intake & Output 11/09/22 11/10/22 11/10/22 18:59 06:59 18:59 Intake Total 118 540 236 Balance 118 540 236 Weight 97.522 kg Intake: Oral 118 540 236 Other: Voiding Method Urinal Urinal Urinal Incontinent Incontinent Incontinent # Voids 2 # Bowel Movements 2 - Labs CBC & Chem 7: 11/10/22 13:19 11/10/22 10:58 Labs: Abnormal Lab Results - Last 24 Hours (Table) 11/09/22 11/09/22 11/10/22 Range/Units 10:12 11:48 02:54 RBC (4.30-5.90) m/uL Hgb (13.0-17.5) gm/dL Hct (39.0-53.0) % MCHC (31.0-37.0) g/dL Haptoglobin 267.0 H (31.2-198.0) mg/dL Chloride (98-107) mmol/L Carbon Dioxide (22-30) mmol/L POC Glucose (mg/dL) 114 H (70-110) mg/dL Calcium (8.4-10.2) mg/dL Magnesium (1.6-2.3) mg/dL Total Protein (PEP) 4.3 L (6.2-8.2) g/dL Albumin (PEP) 1.57 L (3.80-4.90) g/dL RBC Folate 1,120 H (280 - 791) ng/mL Copper 389 L (665-1480) ug/L 11/10/22 11/10/22 Range/Units 10:58 13:19 RBC 2.50 L (4.30-5.90) m/uL Hgb 7.4 L (13.0-17.5) gm/dL Hct 24.3 L (39.0-53.0) % MCHC 30.4 L (31.0-37.0) g/dL Haptoglobin (31.2-198.0) mg/dL Chloride 121 H (98-107) mmol/L Carbon Dioxide 13 L (22-30) mmol/L POC Glucose (mg/dL) (70-110) mg/dL Calcium 7.4 L (8.4-10.2) mg/dL Magnesium 1.2 L (1.6-2.3) mg/dL Total Protein (PEP) (6.2-8.2) g/dL Albumin (PEP) (3.80-4.90) g/dL RBC Folate (280 - 791) ng/mL Copper (665-1480) ug/L Microbiology - Last 24 Hours (Table) 11/08/22 11:00 Stool Culture - Preliminary Stool 11/07/22 21:50 Stool Culture - Preliminary Stool
[2022-11-10] MEDS: ASPIRIN 81 MG PO SCH (20:12)
[2022-11-10] MEDS: CYANOCOBALAMIN 1,000 MCG/ML 1 ML VIAL IM SCH (20:12)
--- NOTE | 2022-11-10 22:14 | P.PN ---
Subjective Progress Note Date: 11/09/22 Principal diagnosis: Covid 19 Patient is a 62-year-old male who is unvaccinated for COVID-19 patient was brought into the ER for evaluation of weakness no energy mention the patient was not able to get stand up and go to the bathroom patient has been dealing with the diarrhea off and on for couple of weeks, patient was noticed to have a positive covid test, however the patient was not hypoxic and CT abdominal pelvis with few bibasilar patchy groundglass opacity representing atelectasis and no evidence of colitis. On today's evaluation that is 11/09/2022, the patient continues to be afebrile, the patient is breathing comfortably on room air. The patient denies chest pain or shortness of breath, the patient did have mild dry cough no abdominal pain , patient diarrhea has slowed down Objective - Vital Signs Vital signs: Vital Signs Temp 97.4 F L 11/09/22 08:00 Pulse 73 11/09/22 08:00 Resp 18 11/09/22 08:00 BP 112/74 11/09/22 08:00 Pulse Ox 98 11/09/22 08:00 FiO2 Intake & Output 11/08/22 11/09/22 11/09/22 18:59 06:59 18:59 Intake Total 280 Output Total 800 Balance -520 Weight 97.522 kg Intake: Oral 280 Output: Urine 800 Other: Voiding Method Urinal Urinal Urinal Incontinent Incontinent Incontinent # Voids 1 # Bowel Movements 1 1 - Exam GENERAL DESCRIPTION: An elderly male lying in bed in no distress RESPIRATORY SYSTEM: Unlabored breathing , decreased breath sounds at bases HEART: S1 S2 regular rate and rhythm , ABDOMEN: Soft , no tenderness EXTREMITIES: No edema feet - Labs CBC & Chem 7: 11/10/22 13:19 11/10/22 10:58 Labs: Abnormal Lab Results - Last 24 Hours (Table) 11/08/22 11/09/22 Range/Units 11:57 07:20 Sodium 133 L (137-145) mmol/L Chloride 116 H (98-107) mmol/L Carbon Dioxide 14 L (22-30) mmol/L Calcium 6.9 L (8.4-10.2) mg/dL Iron 33 L (65-175) ug/dL TIBC 97 L (228-460) ug/dL Transferrin 69.5 L (204.0-354.0) mg/dL Ferritin 847.0 H (22.0-322.0) ng/mL Microbiology - Last 24 Hours (Table) 11/08/22 11:00 Stool Culture - Preliminary Stool 11/07/22 21:50 Stool Culture - Preliminary Stool Assessment and Plan (1) COVID-19 Current Visit: Yes Status: Acute Priority: High Code(s): U07.1 - COVID-19 SNOMED Code(s): 055414589 (2) Diarrhea Current Visit: Yes Status: Acute Priority: High Code(s): R19.7 - DIARRHEA, UNSPECIFIED SNOMED Code(s): 36205806 Plan: 1patient present to hospital generalized weakness which is likely multifactorial could be related to his diarrhea has not patient did have significant diarrhea and evidence of prerenal status was low potassium, stool for C. diff is negative stool cultures has been obtained and currently pending continue Questran 2patient with a positive COVID test however no significant respiratory symptoms the patient is currently not hypoxic or need for supplemental oxygen , treatment will be mostly supportive. 3patient to continue with heparin vitamin C and zinc Time with Patient: Less than 30
--- NOTE | 2022-11-10 22:16 | P.PN ---
Subjective Progress Note Date: 11/10/22 Principal diagnosis: Covid 19 Patient is a 62-year-old male who is unvaccinated for COVID-19 patient was brought into the ER for evaluation of weakness no energy mention the patient was not able to get stand up and go to the bathroom patient has been dealing with the diarrhea off and on for couple of weeks, patient was noticed to have a positive covid test, however the patient was not hypoxic and CT abdominal pelvis with few bibasilar patchy groundglass opacity representing atelectasis and no evidence of colitis. On today's evaluation that is 11/10/2022, the patient denies any fever or chills, the patient is breathing comfortably on room air and satting 96%. The patient denies chest pain or shortness of breath, the patient did have mild cough but no sputum production no abdominal pain , patient diarrhea has slowed down per the nursing staff Objective - Vital Signs Vital signs: Vital Signs Temp 98.6 F 11/10/22 11:31 Pulse 85 11/10/22 11:31 Resp 18 11/10/22 11:31 BP 109/66 11/10/22 11:31 Pulse Ox 95 11/10/22 11:31 FiO2 Intake & Output 11/09/22 11/10/22 11/10/22 18:59 06:59 18:59 Intake Total 118 540 236 Balance 118 540 236 Weight 97.522 kg Intake: Oral 118 540 236 Other: Voiding Method Urinal Urinal Urinal Incontinent Incontinent Incontinent # Voids 2 # Bowel Movements 2 - Exam GENERAL DESCRIPTION: An elderly male lying in bed in no distress RESPIRATORY SYSTEM: Unlabored breathing , decreased breath sounds at bases HEART: S1 S2 regular rate and rhythm , ABDOMEN: Soft , no tenderness EXTREMITIES: No edema feet - Labs CBC & Chem 7: 11/10/22 13:19 11/10/22 10:58 Labs: Abnormal Lab Results - Last 24 Hours (Table) 11/09/22 11/09/22 11/10/22 Range/Units 10:12 11:48 02:54 RBC (4.30-5.90) m/uL Hgb (13.0-17.5) gm/dL Hct (39.0-53.0) % MCHC (31.0-37.0) g/dL Haptoglobin 267.0 H (31.2-198.0) mg/dL Chloride (98-107) mmol/L Carbon Dioxide (22-30) mmol/L POC Glucose (mg/dL) 114 H (70-110) mg/dL Calcium (8.4-10.2) mg/dL Magnesium (1.6-2.3) mg/dL Total Protein (PEP) 4.3 L (6.2-8.2) g/dL Albumin (PEP) 1.57 L (3.80-4.90) g/dL RBC Folate 1,120 H (280 - 791) ng/mL 11/10/22 11/10/22 Range/Units 10:58 13:19 RBC 2.50 L (4.30-5.90) m/uL Hgb 7.4 L (13.0-17.5) gm/dL Hct 24.3 L (39.0-53.0) % MCHC 30.4 L (31.0-37.0) g/dL Haptoglobin (31.2-198.0) mg/dL Chloride 121 H (98-107) mmol/L Carbon Dioxide 13 L (22-30) mmol/L POC Glucose (mg/dL) (70-110) mg/dL Calcium 7.4 L (8.4-10.2) mg/dL Magnesium 1.2 L (1.6-2.3) mg/dL Total Protein (PEP) (6.2-8.2) g/dL Albumin (PEP) (3.80-4.90) g/dL RBC Folate (280 - 791) ng/mL Microbiology - Last 24 Hours (Table) 11/07/22 21:50 Stool Culture - Preliminary Stool Assessment and Plan (1) COVID-19 Current Visit: Yes Status: Acute Priority: High Code(s): U07.1 - COVID-19 SNOMED Code(s): 300942953 (2) Diarrhea Current Visit: Yes Status: Acute Priority: High Code(s): R19.7 - DIARRHEA, UNSPECIFIED SNOMED Code(s): 21719794 Plan: 1patient present to hospital generalized weakness which is likely multi factorial could be related to his diarrhea has not patient did have significant diarrhea and evidence of prerenal status was low potassium, stool for C. diff is negative stool cultures has been obtained and currently pending, patient to continue Questran and advised to increase his probiotic and uvula 10 day 2patient with a positive COVID test however no significant respiratory symptoms the patient is currently not hypoxic or need for supplemental oxygen , patient is pretty status remains to be stable and will continue with heparin vitamin C and zinc Time with Patient: Less than 30
[2022-11-11 02:36] LABS: Methylmalonic Acid 0.51 umol/L (<0.40)
[2022-11-11] MEDS: LEVOTHYROXINE 50 MCG TAB PO SCH (05:04)
[2022-11-11] MEDS: HEPARIN SODIUM,PORCINE/PF 5,000 UNIT/0.5 ML SYRINGE SQ SCH ×3 (05:04→16:00)
[2022-11-11] MEDS: SODIUM CHLORIDE 0.9% 1,000 ML IV SCH ×2 (05:04→16:00)
[2022-11-11] MEDS: ACETAMINOPHEN TAB 325 MG TAB PO PRN ×2 (05:04→21:59)
[2022-11-11] MEDS: DILTIAZEM 125 MG in SODIUM CHLORIDE 0.9% 100 ML IV SCH (05:10)
--- NOTE | 2022-11-11 08:36 | P.CNNES ---
History of Present Illness Consult date: 11/10/22 Requesting physician: Priscilla Steven Reason for Consult: right side weakness, covid, afib History of Present Illness: Patient is a 62-year-old male came to the hospital by ambulance at 11:48 AM on 11/06/2022 for constant diarrhea for about 1.5-2 weeks. Patient has mentioned that his diarrhea is so severe, that he has become "uncontrollable" and incontinent. His blood pressure at the scene was 138/85, pulse rate 109, respiration 18, saturation 98%. Patient states that he has been feeling weak all over. He states that his blood pressures has been going up and down, and he gets breathing spasms. Patient states that on Wednesday and , he had bad diarrhea. On Wednesday with every step he was leaking diarrheal stools. He has not been vaccinated for Malagon virus. He denies any history of strokes or TIA. He denies any visual symptoms, speech difficulty, any numbness tingling or focal weakness. He feels generalized weakness related to Covid. Patient's blood test shows an obese 11.6, hemoglobin 8.7, platelets 21. INR 1.2. Sodium 133 potassium 2.6, BUN 16 creatinine 1.53. Hepatic panel is normal . Malagon virus PCR positive. Influenza screen negative. Patient's calcium was low 6.2, C. diff negative. Vitamin B12 226, folate 21, TSH 4.0. Troponin is mildly elevated 0.201. Stool occult blood negative, hemoglobin 7.4. Hepatitis panel negative. Immunofixation after pheresis negative. ESR 34. Patient's EKG on arrival was normal sinus rhythm. Patient had an EKG yesterday, which was pos itive for atrial fibrillation with rapid ventricular rate. Further repeat EKG was normal sinus rhythm. Patient developed right-sided weakness. CT head showed age-related atrophic and chronic small vessel ischemic changes without acute intracranial process. Patient's hemoglobin at baseline was 12.7. It has dropped down to 7.4. Patient currently on heparin subcu every 8 hours. Patient has been seen by cardiology, and they felt, that paroxysmal atrial fibrillation secondary to metabolic abnormalities. His risk score is 0. Mild troponin elevation due to type II myocardial injury. Severe diarrhea secondary to Covid infection. Anemia of unknown duration or etiology. They recommended if patient continues to have paroxysmal atrial fibrillation, then further treatment will be recommended. Patient denies history of diabetes or hypertension. He denies any tobacco use. He drinks 12 ounces of whiskey twice a week since April 2022. Iron to that, he used to drink 24 pounds of whiskey 6 days a week for the last 6-7 years. Patient states that he has been walking with a walker for last 2 years after he suffered from a fall, and injured his left knee. Review of Systems Constitutional: Denies chills, Denies fever Eyes: denies blurred vision, denies pain Ears: deny: decreased hearing, earache Ears, nose, mouth and throat: Denies headache, Denies sore throat Cardiovascular: Reports shortness of breath, Denies chest pain Respiratory: Reports cough, Denies pain Gastrointestinal: Reports diarrhea, Denies abdominal pain, Denies nausea, Denies vomiting Musculoskeletal: Reports gait dysfunction, Reports muscle weakness Integumentary: Denies pruritus, Denies rash Neurological: Reports as per HPI Psychiatric: Denies anxiety, Denies depression Endocrine: Reports fatigue, Denies weight change Hematologic/Lymphatic: Denies easy bruising Past Medical History Past Medical History: Sleep Apnea/CPAP/BIPAP, Thyroid Disorder Additional Past Medical History / Comment(s): thyroid issue. pt reports not using CPAP/BIPAP at HS History of Any Multi-Drug Resistant Organisms: None Reported Additional Past Surgical History / Comment(s): gastric bypass. Umbilical hernia, 6x hernia surgeries, fell & broke hip in 2019 - pt was in [facility] at the time and reports getting a pin in hip. Past Anesthesia/Blood Transfusion Reactions: No Reported Reaction Past Psychological History: Depression Smoking Status: Never smoker Past Alcohol Use History: Occasional Additional Past Alcohol Use History / Comment(s): Patient reports moving to [place] in April 2022 and cutting back on alcohol use. Prior to moving to [place], pt reports drinking one 5th of whiskey a day, but only drinks occasionally now. Pt reports to RN that he drank one 5th of whiskey last Wednesday. Past Drug Use History: None Reported Medications and Allergies Home Medications Medication Instructions Recorded Confirmed Type Calcium Carbonate [Calcium] 600 mg PO DAILY 09/09/22 11/06/22 History Ergocalciferol (Vitamin D2) 1,250 mcg PO MOWE 09/09/22 11/06/22 History [Drisdol (50,000 Iu)] FLUoxetine HCL [PROzac] 20 mg PO DAILY 09/09/22 11/06/22 History Levothyroxine Sodium [Synthroid] 50 mcg PO DAILY 09/09/22 11/06/22 History Magnesium Oxide [Magnesium] 500 mg PO DAILY 09/09/22 11/06/22 History Diclofenac Sodium Gel [Voltaren 2 gm TOPICAL QID PRN 11/06/22 11/06/22 History Gel] Folic Acid 0.4 mg PO DAILY 11/06/22 11/06/22 History Ibuprofen [Motrin] 600 mg PO TID PRN 11/06/22 11/06/22 History Thiamine [Vitamin B-1] 100 mg PO DAILY 11/06/22 11/06/22 History Allergies Allergy/AdvReac Type Severity Reaction Status Date / Time No Known Allergies Allergy Verified 11/06/22 14:38 Physical Examination - Vital Signs Vital Signs: Vital Signs Temp Pulse Resp BP Pulse Ox 11/10/22 11:31 98.6 F 85 18 109/66 95 11/10/22 10:34 87 18 11/10/22 10:33 98.4 F 87 18 113/69 97 11/10/22 05:50 92 18 116/68 98 11/10/22 04:20 96 18 120/73 98 11/10/22 03:42 98 18 113/66 98 11/10/22 03:38 96 18 107/67 98 11/10/22 03:27 98 18 118/70 97 11/10/22 00:06 99 18 115/65 97 11/09/22 19:48 97.6 F 86 18 140/81 96 11/09/22 14:00 97.9 F 73 16 106/77 98 Intake and Output 11/09/22 11/10/22 11/10/22 22:59 06:59 14:59 Intake Total 118 540 236 Balance 118 540 236 Intake: Oral 118 540 236 Other: Voiding Method Urinal Urinal Incontinent Incontinent # Voids 2 # Bowel Movements 2 Patient is a late middle aged male, in no obvious distress. Patient is alert awake oriented to time place and person. Patient knows that he is in [facility] in [place]. He thinks it is 11/07/2022. Speech and language functions are normal. Patient can name and repeat very well. No aphasia or dysarthria. Attention, concentration and fund of knowledge is adequate. On cranial nerve examination, pupils are equal, round and reacting to light, visual elder are full on confrontation, with no neglect on double simultaneous stimulation. Extraocular muscles are intact with no nystagmus. Face is symmetric, tongue protrudes to the midline. Palatal elevation and sensation normal, hearing and shoulder shrug normal, facial sensation normal. On muscle strength testing, the strength is (right/left) deltoid 2/3+, biceps 4/4, triceps 4+/4+, manifold builder 4+/4+, hip flexion 3+4-/0, ankle dorsiflexion 5-/5- Deep tendon reflexes are symmetric biceps 1, brachioradialis 0, knee 1/0, ankles 0 and plantars are flat bilaterally. Sensory to touch is equal with no neglect on double simultaneous stimulation. Cerebellar function showed no ataxia for [id number] testing. No dysdiadochokinesia. No ataxia for [id number] testing on either side. Tone and bulk of muscles normal. Gait deferred.. On general examination, there is no carotid bruit or murmur, S1-S2 audible. Chest is clear on consultation. Abdomen is soft nontender. No organomegaly, bowel sounds present. Peripheral pulses are present. No edema. Results - Laboratory Findings CBC and BMP: 11/10/22 13:19 11/10/22 10:58 Abnormal Lab Findings: Abnormal Labs 11/06/22 11/06/22 11/06/22 12:14 12:14 12:14 WBC 11.6 H RBC 2.91 L Hgb 8.7 L Hct 27.2 L MCHC Neutrophils # 9.8 H Lymphocytes # 0.9 L ESR Haptoglobin INR Sodium 133 L Potassium 2.6 L* Chloride Carbon Dioxide 14 L Creatinine 1.53 H Glucose 108 H POC Glucose (mg/dL) Plasma Lactic Acid Kip 2.9 H* Calcium 6.3 L* Magnesium Iron TIBC Transferrin Ferritin Troponin I Total Protein 5.4 L Total Protein (PEP) Albumin 2.3 L Albumin (PEP) RBC Folate Free T3 pg/mL Urine Protein Urine Bilirubin Ur Leukocyte Esterase Urine WBC Urine WBC Clumps Urine Bacteria Hyaline Casts Urine Mucus Coronavirus (PCR) 11/06/22 11/06/22 11/06/22 13:20 13:20 13:20 WBC RBC Hgb Hct MCHC Neutrophils # Lymphocytes # ESR Haptoglobin INR 1.2 H Sodium Potassium Chloride Carbon Dioxide Creatinine Glucose POC Glucose (mg/dL) Plasma Lactic Acid Ikp Calcium Magnesium 0.8 L* Iron TIBC Transferrin Ferritin Troponin I Total Protein Total Protein (PEP) Albumin Albumin (PEP) RBC Folate Free T3 pg/mL Urine Protein Urine Bilirubin Ur Leukocyte Esterase Urine WBC Urine WBC Clumps Urine Bacteria Hyaline Casts Urine Mucus Coronavirus (PCR) Detected A 11/06/22 11/07/22 11/07/22 19:05 02:07 06:26 WBC RBC Hgb Hct MCHC Neutrophils # Lymphocytes # ESR Haptoglobin INR Sodium 134 L Potassium 3.2 L 3.3 L Chloride 114 H 115 H Carbon Dioxide 16 L 14 L Creatinine 1.38 H 1.27 H Glucose 66 L POC Glucose (mg/dL) Plasma Lactic Acid Kip Calcium 6.2 L* 6.2 L* Magnesium Iron TIBC Transferrin Ferritin Troponin I Total Protein Total Protein (PEP) Albumin Albumin (PEP) RBC Folate Free T3 pg/mL Urine Protein Urine Bilirubin Ur Leukocyte Esterase Urine WBC Urine WBC Clumps Urine Bacteria Hyaline Casts Urine Mucus Coronavirus (PCR) 11/07/22 11/08/22 11/08/22 13:20 03:36 03:36 WBC RBC Hgb Hct MCHC Neutrophils # Lymphocytes # ESR Haptoglobin INR Sodium 132 L Potassium 3.1 L Chloride 115 H Carbon Dioxide 14 L Creatinine Glucose POC Glucose (mg/dL) Plasma Lactic Acid Kip Calcium 6.7 L Magnesium 1.2 L Iron TIBC Transferrin Ferritin Troponin I 0.260 H* Total Protein Total Protein (PEP) Albumin Albumin (PEP) RBC Folate Free T3 pg/mL 2.2 L Urine Protein 1+ H Urine Bilirubin 1+ H Ur Leukocyte Esterase Large H Urine WBC 22 H Urine WBC Clumps Rare H Urine Bacteria Few H Hyaline Casts 5 H Urine Mucus Few H Coronavirus (PCR) 11/08/22 11/08/22 11/08/22 03:36 07:46 10:15 WBC RBC 2.55 L 2.48 L Hgb 7.7 L 7.3 L Hct 24.3 L 23.6 L MCHC Neutrophils # Lymphocytes # ESR Haptoglobin INR Sodium Potassium Chloride Carbon Dioxide Creatinine Glucose POC Glucose (mg/dL) Plasma Lactic Acid Kip Calcium Magnesium Iron TIBC Transferrin Ferritin Troponin I 0.201 H* Total Protein Total Protein (PEP) Albumin Albumin (PEP) RBC Folate Free T3 pg/mL Urine Protein Urine Bilirubin Ur Leukocyte Esterase Urine WBC Urine WBC Clumps Urine Bacteria Hyaline Casts Urine Mucus Coronavirus (PCR) 11/08/22 11/08/22 11/09/22 11:57 11:57 07:20 WBC RBC Hgb Hct MCHC Neutrophils # Lymphocytes # ESR Haptoglobin INR Sodium 133 L Potassium 3.3 L Chloride 116 H Carbon Dioxide 14 L Creatinine Glucose POC Glucose (mg/dL) Plasma Lactic Acid Kip Calcium 6.9 L Magnesium Iron 33 L TIBC 97 L Transferrin 69.5 L Ferritin 847.0 H Troponin I Total Protein Total Protein (PEP) Albumin Albumin (PEP) RBC Folate Free T3 pg/mL Urine Protein Urine Bilirubin Ur Leukocyte Esterase Urine WBC Urine WBC Clumps Urine Bacteria Hyaline Casts Urine Mucus Coronavirus (PCR) 11/09/22 11/09/22 11/09/22 10:12 11:48 11:48 WBC RBC Hgb Hct MCHC Neutrophils # Lymphocytes # ESR 34 H Haptoglobin 267.0 H INR Sodium Potassium Chloride Carbon Dioxide Creatinine Glucose POC Glucose (mg/dL) Plasma Lactic Acid Kip Calcium Magnesium Iron TIBC Transferrin Ferritin Troponin I Total Protein Total Protein (PEP) 4.3 L Albumin Albumin (PEP) 1.57 L RBC Folate 1,120 H Free T3 pg/mL Urine Protein Urine Bilirubin Ur Leukocyte Esterase Urine WBC Urine WBC Clumps Urine Bacteria Hyaline Casts Urine Mucus Coronavirus (PCR) 11/10/22 11/10/22 11/10/22 02:54 10:58 13:19 WBC RBC 2.50 L Hgb 7.4 L Hct 24.3 L MCHC 30.4 L Neutrophils # Lymphocytes # ESR Haptoglobin INR Sodium Potassium Chloride 121 H Carbon Dioxide 13 L Creatinine Glucose POC Glucose (mg/dL) 114 H Plasma Lactic Acid Kip Calcium 7.4 L Magnesium 1.2 L Iron TIBC Transferrin Ferritin Troponin I Total Protein Total Protein (PEP) Albumin Albumin (PEP) RBC Folate Free T3 pg/mL Urine Protein Urine Bilirubin Ur Leukocyte Esterase Urine WBC Urine WBC Clumps Urine Bacteria Hyaline Casts Urine Mucus Coronavirus (PCR) Assessment and Plan Assessment: * Acute COVID infection with severe diarrhea for around 7-10 days. * Generalized weakness, slightly asymmetric. Etiology multifactorial, probably related to electrolyte imbalance, with hypokalemia, hyponatremia, hypocalcemia, hypomagnesemia. Guillain-Powell syndrome is in the differential, however patient's reflexes are still present proximally. Need to follow closely. * Vitamin B12 deficiency * Copper deficiency * Paroxysmal atrial fibrillation * Alcoholism * Anemia Plan: * Patient has evidence of vitamin B12 deficiency with low B12 and elevated methylmalonic acid. Patient started on vitamin B12 1000 g IM daily. * Hematology has seen the patient, ordered blood testing. * We will add CPK, vitamin B6 level. Serum protein electrophoresis and im munofixation electrophoresis showed no paraproteinemia * For copper deficiency, would defer to hematology. * Patient also had an episode of paroxysmal atrial fibrillation. Cardiology has seen the patient, not recommending anticoagulation. I would start aspirin 81 mg daily. Discussed with primary team, and cleared for aspirin. * 2-D echo revealed left ventricular hypertrophy with normal left-ventricular systolic function with EF 55%. No obvious regional wall motion abnormalities. Left atrial size is normal. Mild to moderate mitral regurgitation. * PT, OT, evaluate gait. * DVT prophylaxis: Patient on heparin subcu. * Neurology will follow. Thank you for the consult. Discussed with primary physician.
[2022-11-11 08:52] LABS: Calcium 7.1 mg/dL (8.4-10.2); Creatine Kinase <20 U/L (55-170); Magnesium 1.6 mg/dL (1.6-2.3); Potassium 3.3 mmol/L (3.5-5.1)
[2022-11-11] MEDS ORDERED: Potassium Replacement Protocol 1 EACH MISC MISCELLANE PRN (09:07)
[2022-11-11] MEDS ORDERED: Magnesium Replacement Protocol 1 EACH MISC MISCELLANE PRN (09:07)
[2022-11-11 09:35] LABS: HCT 21.3 % (39.0-53.0); Hypochromasia Marked; MCH 29.3 pg (25.0-35.0); MCHC 30.6 g/dL (31.0-37.0); MCV 95.7 fL (80.0-100.0); Mean Platelet Volume 9.5; Platelet Count 341 k/uL (150-450); RBC 2.22 m/uL (4.30-5.90); RDW 14.5 % (11.5-15.5); WBC 8.9 k/uL (3.8-10.6)
[2022-11-11 09:41] LABS: HGB 6.5 gm/dL (13.0-17.5)
[2022-11-11] MEDS: ASCORBIC ACID 500 MG TAB PO SCH ×2 (09:52→21:11)
[2022-11-11] MEDS: MAGNESIUM OXIDE 400 MG TAB PO SCH (09:52)
[2022-11-11] MEDS: POTASSIUM CHLORIDE ER 20 MEQ TAB.ER PO SCH ×2 (09:52→11:23)
[2022-11-11] MEDS: ASPIRIN 81 MG PO SCH (09:52)
[2022-11-11] MEDS: ZINC SULFATE 220 MG CAP PO SCH (09:52)
[2022-11-11] MEDS: FLUoxetine HCL 20 MG CAP PO SCH (09:52)
[2022-11-11] MEDS: THIAMINE 100 MG TAB PO SCH (09:52)
[2022-11-11] MEDS: CALCIUM CARBONATE 500 MG CHEWABLE PO SCH ×3 (09:53→21:11)
[2022-11-11] MEDS: FOLIC ACID 1 MG TAB PO SCH (09:53)
[2022-11-11] MEDS: PANTOPRAZOLE 40 MG/10 ML VIAL IVP SCH ×2 (09:54→21:11)
[2022-11-11] MEDS: CHOLECALCIFEROL 25 MCG (1000 IU) TABLET PO SCH (09:54)
[2022-11-11] MEDS: MAGNESIUM SULFATE-D5W PMX 1 GM in DEXTROSE/WATER 1 100ML.BAG IVPB SCH ×2 (09:54→11:23)
[2022-11-11] MEDS: DILTIAZEM ORAL 30 MG TAB PO SCH ×3 (09:54→21:11)
[2022-11-11] MEDS: CYANOCOBALAMIN 1,000 MCG/ML 1 ML VIAL IM SCH (11:23)
[2022-11-11 11:44] LABS: Lymphocytes # (M) 1.34 k/uL (1.0-4.8); Monocytes # (M) 0.18 k/uL (0-1.0); Neutrophils # (M) 7.39 k/uL (1.3-7.7); Neutrophils % (M) 83 %; Nucleated Red Blood Cells 0 /100 WBC (0-0); Total Cells Counted 100
[2022-11-11 11:45] LABS: Poikilocytosis (M) Present; Polychromasia Present
[2022-11-11 12:32] LABS: Free Lambda Lt Chain Qnt, Seru 10.88 mg/dL (0.57-2.63)
[2022-11-11 12:33] LABS: Free Kappa Lt Chain Qnt, Serum 12.95 mg/dL (0.33-1.94)
--- NOTE | 2022-11-11 14:22 | P.PN ---
Subjective Progress Note Date: 11/11/22 PROGRESS NOTE The patient is a 62-year-old male who presented with severe diarrhea following COVID infection. Cardiology consultation was requested because of paroxysmal atrial fibrillation. He is back in sinus mechanism. He was hypokalemic. He denies any chest discomfort or dyspnea. He denies any dizziness or palpitations. He continues to be in sinus mechanism. His echo is pending. He continues to have some diarrhea but no nausea or vomiting, no abdominal pain. He had mild troponin elevation. He was anemic on presentation November 10: The patient feels better overall, he continues to have mild diarrhea but better. He denies any chest discomfort, dizziness or palpitations. He continues to be in sinus mechanism at this time. His echocardiogram showed an ejection fraction of 55% with [id number] mitral regurgitation November 11: The patient continues to feel fatigued, his diarrhea is better. He is anemic. He has no further atrial fibrillation. He denies any dizziness or palpitations. Medications: calcium, Prozac, levothyroxine, Cardizem 30 mg 3 times a day, aspirin once a day, magnesium, thiamine PHYSICAL EXAMINATION: Blood pressure 118/70 heart rate 70 LUNGS: Clear to auscultation HEART: Regular rate and rhythm, S1, S2. No S3. No systolic murmur ABDOMEN: Soft, nontender, no organomegaly EXTREMETIES: No edema LAB: Potassium 3.3, hemoglobin 6.5, BUN 17, creatinine 1.07 IMPRESSION: 1. Severe diarrhea secondary to COVID infection, improved 2. Paroxysmal atrial fibrillation, secondary to the metabolic abnormalities, his risk score is 0, remains in sinus mechanism 3. Mild troponin elevation, type II myocardial injury 4. Anemia of unknown duration or etiology 5. Hypokalemia, being replaced PLAN: 1. Continue Cardizem 2. Workup of anemia per hematology 3. We will see him on as-needed basis, please feel free to call us for any question. Objective - Vital Signs Vital signs: Vital Signs Temp 97.3 F L 11/11/22 11:20 Pulse 75 11/11/22 11:20 Resp 18 11/11/22 11:20 BP 118/71 11/11/22 11:20 Pulse Ox 96 11/11/22 11:20 FiO2 Intake & Output 11/10/22 11/11/22 11/11/22 18:59 06:59 18:59 Intake Total 472 130 Balance 472 130 Intake: IV 10 Invasive Line 1 10 Oral 472 120 Other: Voiding Method Urinal Urinal Urinal Incontinent Diaper Diaper Incontinent Incontinent # Voids 1 3 # Bowel Movements 1 2 - Labs CBC & Chem 7: 11/11/22 07:52 11/11/22 07:52 Labs: Abnormal Lab Results - Last 24 Hours (Table) 11/09/22 11/09/22 11/11/22 Range/Units 10:12 11:48 07:52 RBC (4.30-5.90) m/uL Hgb (13.0-17.5) gm/dL Hct (39.0-53.0) % MCHC (31.0-37.0) g/dL Sodium (137-145) mmol/L Potassium (3.5-5.1) mmol/L Chloride (98-107) mmol/L Carbon Dioxide (22-30) mmol/L Glucose (74-99) mg/dL Calcium (8.4-10.2) mg/dL Creatine Kinase <20 L (55-170) U/L Methylmalonic Acid 0.51 H (<0.40) umol/L Copper 389 L (665-1480) ug/L Free [place] LC, Quant 12.95 H (0.33-1.94) mg/dL Free [place] LC, Quant 10.88 H (0.57-2.63) mg/dL 11/11/22 11/11/22 Range/Units 07:52 07:52 RBC 2.22 L (4.30-5.90) m/uL Hgb 6.5 L* (13.0-17.5) gm/dL Hct 21.3 L (39.0-53.0) % MCHC 30.6 L (31.0-37.0) g/dL Sodium 134 L (137-145) mmol/L Potassium 3.3 L (3.5-5.1) mmol/L Chloride 117 H (98-107) mmol/L Carbon Dioxide 13 L (22-30) mmol/L Glucose 101 H (74-99) mg/dL Calcium 7.1 L (8.4-10.2) mg/dL Creatine Kinase (55-170) U/L Methylmalonic Acid (<0.40) umol/L Copper (665-1480) ug/L Free [place] LC, Quant (0.33-1.94) mg/dL Free Lambda LC, Quant (0.57-2.63) mg/dL Microbiology - Last 24 Hours (Table) 11/08/22 11:00 Stool Culture - Preliminary Stool
--- NOTE | 2022-11-11 17:50 | MR ---
EXAMINATION TYPE: MR cervical spine wo con DATE OF EXAM: 11/11/2022 INDICATION: Patient age:Male; 62 years old; Reason for study: Weakness of all 4 limbs; COMPARISON: None. TECHNIQUE: Multi planar, multi sequence imaging was performed utilizing: T1-weighted, T2-weighted, an d turbo inversion recovery imaging of the cervical spine. IV Contrast: None FINDINGS: Significant limitation of the exam secondary motion. Alignment: The cervical vertebral bodies have preserved heights. Bones: Reactive bony edema at C6-C7 adjoining endplates. Multilevel degenerative disc disease is note d and most pronounced at the vertebral levels. Cord: The spinal cord is unremarkable with regards to their signal intensity and morphology. Discs: Multilevel disc desiccation is present. C2-C3: No significant disc pathology. The spinal canal is patent. Bilateral facet and uncovertebral joint arthropathy are present with mild bilateral neural foraminal stenosis. C3-C4: A disc osteophyte complex is present with mild spinal canal stenosis. Bilateral facet and unc overtebral joint arthropathy are present with mild bilateral neural foraminal stenosis. C4-C5: A disc osteophyte complex is present with mild spinal canal stenosis. Bilateral facet and unc overtebral joint arthropathy are present with moderate bilateral neural foraminal stenosis. C5-C6: A disc osteophyte complex is present with moderate spinal canal stenosis. No neural foraminal stenosis. C6-C7: A disc osteophyte complex is present with mild spinal canal stenosis. Bilateral facet and unc overtebral joint arthropathy are present with moderate right and mild left neural foraminal stenosis. The left neural foramen is patent. C7-T1: No significant disc pathology. The spinal canal is patent. No neural foraminal stenosis. IMPRESSION: 1. Significantly limited exam secondary motion. Within the limitation there is at least moderate spi nal canal stenosis at C5-C6. Multilevel neural foraminal stenosis. 2. Grade 1 anterolisthesis of C3 on C4. 3. Degeneration changes worse at C6-C7 with the joint place edema.
[2022-11-11] MEDS: CHOLESTYRAMINE (WITH SUGAR) 4 GM PACKET PO SCH (18:17)
--- NOTE | 2022-11-11 20:09 | P.PN ---
Subjective Progress Note Date: 11/11/22 Principal diagnosis: anemia Pt in f/u is doing well, no acute physical c/o today on a focused ROS Objective - Vital Signs Vital signs: Vital Signs Temp 96.3 F L 11/11/22 15:57 Pulse 85 11/11/22 15:57 Resp 18 11/11/22 15:57 BP 124/74 11/11/22 15:57 Pulse Ox 97 11/11/22 15:57 FiO2 Intake & Output 11/11/22 11/11/22 11/12/22 06:59 18:59 06:59 Intake Total 270 Balance 270 Intake: IV 40 Invasive Line 1 20 Invasive Line 2 20 Oral 230 Other: Voiding Method Urinal Urinal Diaper Diaper Incontinent Incontinent # Voids 3 # Bowel Movements 2 - Constitutional General appearance: Present: average body habitus, cooperative, no acute distress - EENT Eyes: Present: anicteric sclerae, EOMI ENT: Present: hearing grossly normal - Respiratory Details: resp even and unlabored at rest - Neurologic Neurologic: Present: CNII-XII intact (grossly) - Psychiatric Psychiatric: Present: A&O x's 3, appropriate affect, intact judgment & insight - Labs CBC & Chem 7: 11/11/22 07:52 11/11/22 07:52 Labs: Abnormal Lab Results - Last 24 Hours (Table) 11/09/22 11/09/22 11/11/22 Range/Units 10:12 11:48 07:52 RBC (4.30-5.90) m/uL Hgb (13.0-17.5) gm/dL Hct (39.0-53.0) % MCHC (31.0-37.0) g/dL Sodium (137-145) mmol/L Potassium (3.5-5.1) mmol/L Chloride (98-107) mmol/L Carbon Dioxide (22-30) mmol/L Glucose (74-99) mg/dL Calcium (8.4-10.2) mg/dL Creatine Kinase <20 L (55-170) U/L Methylmalonic Acid 0.51 H (<0.40) umol/L Free [place] LC, Quant 12.95 H (0.33-1.94) mg/dL Free [place]ambda LC, Quant 10.88 H (0.57-2.63) mg/dL 12/14/22 12/14/22 Range/Units 07:52 07:52 RBC 2.22 L (4.30-5.90) m/uL Hgb 6.5 L* (13.0-17.5) gm/dL Hct 21.3 L (39.0-53.0) % MCHC 30.6 L (31.0-37.0) g/dL Sodium 134 L (137-145) mmol/L Potassium 3.3 L (3.5-5.1) mmol/L Chloride 117 H (98-107) mmol/L Carbon Dioxide 13 L (22-30) mmol/L Glucose 101 H (74-99) mg/dL Calcium 7.1 L (8.4-10.2) mg/dL Creatine Kinase (55-170) U/L Methylmalonic Acid (<0.40) umol/L Free [place] LC, Quant (0.33-1.94) mg/dL Free [place]ambda LC, Quant (0.57-2.63) mg/dL Microbiology - Last 24 Hours (Table) 11/08/22 11:00 Stool Culture - Final Stool - Imaging and Cardiology CT Scan - head: report reviewed MRI cervical spine report reviewed Assessment and Plan (1) Normocytic normochromic anemia Current Visit: Yes Status: Acute Priority: High Code(s): D64.9 - ANEMIA, UNSPECIFIED SNOMED Code(s): 67604096 (2) COVID-19 Current Visit: Yes Status: Acute Priority: High Code(s): U07.1 - COVID-19 SNOMED Code(s): 178298304 (3) Diarrhea Current Visit: Yes Status: Acute Priority: High Code(s): R19.7 - DIARRHEA, UNSPECIFIED SNOMED Code(s): 09280322 Plan: Normocytic, normochromic anemia. Hemolysis work up neg. Elevated ferritin, a nemia of inflammation and Hx of gastric bypass contributing. Work up for paraproteinemia neg, K/L increased with normal ratio, most consistent with inflammation. Elevated MMA with low normal [id number] B12 deficiency, parenteral B12 started. Copper is noted to be 1/2 normal level. Will check w [facility] to see if there is a supplement for the same. Hgb 6.5, 1 unit PRBCs ordered. CBC in AM
[2022-11-11 21:56] LABS: HCT 24.1 % (39.0-53.0); HGB 7.5 gm/dL (13.0-17.5); Hypochromasia Marked; MCH 30.2 pg (25.0-35.0); MCHC 31.2 g/dL (31.0-37.0); Mean Platelet Volume 8.5; Platelet Count 323 k/uL (150-450); RBC 2.48 m/uL (4.30-5.90); RDW 14.2 % (11.5-15.5); WBC 9.9 k/uL (3.8-10.6)
[2022-11-11 22:57] LABS: Lymphocytes # (M) 1.19 k/uL (1.0-4.8); Neutrophils # (M) 8.71 k/uL (1.3-7.7); Neutrophils % (M) 88 %; Nucleated Red Blood Cells 0 /100 WBC (0-0); Total Cells Counted 100
[2022-11-12] MEDS: HEPARIN SODIUM,PORCINE/PF 5,000 UNIT/0.5 ML SYRINGE SQ SCH ×3 (00:06→16:39)
--- NOTE | 2022-11-12 01:26 | P.PN ---
Subjective Progress Note Date: 11/11/22 Paroxysmal atrial fibrillation Intractable nausea/vomiting/diarrhea Profound hypokalemia Acute renal injury COVID-19 infection 62-year-old male in the emergency department for diarrhea. She notes diarrhea starting and he asked progressively gotten worse. He reports he stood up from a chair and had an episode of diarrhea, admits he still maintains bowel function. He has not tried anything for his symptoms. He denies nausea, vomiting, abdominal pain, palpitations, fevers. Denies recent travel or recent antibiotic use. He is scheduled to have his first colonoscopy in january of 2023. Patient had an initial lab work is remarkable for WBC is 11.4, hemoglobin 8.7, INR 1.2, sodium 133, potassium 2.6 lactic acid 2.9, calcium 6.3, magnesium 0.8, lipase 60, COVID positive. I interpreted the following; CT abdomen without contrast remarkable for fluid filled colon without focal wall thickening or surrounding inflammatory changes. Patient was given 2 L fluids, potassium, magnesium and calcium during his course of the ED. 11/08/2022 Patient is seen and evaluated on selective care unit; he went into atrial fibrillation with rapid ventricular response he was transferred to the third floor/selective minute. The patient did not have any symptoms of heart racing or fluttering and no dizziness or lightheadedness and no presyncope or syncope and no symptoms of chest pain or chest discomfort or shortness of breath. No prior history of atrial fibrillation. No history of coronary artery disease or congestive heart failure or cardiac arrhythmia and the patient never seen a pipe organ mechanic in the past. Beside that no history of diabetes or hypertension or dyslipidemia. The patient was started initially on Cardizem drip but his pressure did go down and for that reason he was switched into amiodarone IV and subsequently converted to normal sinus mechanism and since then he has been maintaining normal sinus mechanism. Further investigation was performed including CBC and that showed a hemoglobin of 7.7. The patient has no history of bleeding. B eside that he underwent a computed tomography scan of the abdomen and pelvis because of the abdominal discomfort that showed no acute abnormalities. The troponin came in to be slightly elevated likely secondary to tachycardia. The EKG showed sinus rhythm now with no significant ST or T-wave abnormalities. Blood work reveals mild elevation of troponin; Patient has been evaluated by cardiology and recommended to continue with IV fluids, replace electrolytes; IV amiodarone is to be discontinued patient is transition to oral dose daily 11/09/2022 Patient is seen and evaluated in follow-up this morning and continues to feel generalized weakness and continues with loose stools. Per nursing staff when assisting to clean the patient up patient was significantly weak on the right. Patient denied any headache, dizziness, or lightheadedness. Will obtain a CT of the brain and also consult neurology. Recommend PT/OT therapy evaluation for significant weakness. C. diff testing was negative on the stool and will add Imodium and encourage oral intake and advance as tolerated. Patient is ma intaining on vitamins and zinc supplements along with subcutaneous heparin with anxiety following closely. Patient denies chest pain or shortness of breath. Afebrile. Recommend a.m. labs as well. 11/10/2022 Patient is seen in follow-up today with multiple medical consultations including cardiology, hematology, infectious disease, and now neurology following. Patient with significant weakness in all upper and lower extremities with neurology undergoing workup recommending aspirin as patient is not on any anticoagulation at this time. Cardiology is following and patient was transitioned back to IV Cardizem although being changed to oral with close monitoring. Magnesium found to be significantly low at 1.2 and will replace per protocol and recommend repeat labs. Hemoglobin is mildly low at 7.4 and undergoing anemia workup with hematology following. Patient with Covid and extreme weakness will need ECF and discharge planning in process. Recommend close monitoring of labs and replace electrolytes per protocol. Patient was started on Imodium as C. diff testing 2 was negative. Patient continues to have loose stools although somewhat improved. Encouraged oral intake and incr eased activity as tolerated. Recommend PT/OT therapy daily. Patient denies chest pain or shortness of breath. Patient is 97% on room air. Patient will continue on vitamin and zinc supplements with anxiety following closely. Recommend gentle IV hydration. 11/11/2022 Patient is seen and evaluated in follow-up with multiple medical consultations following including infectious disease and neurology. Oncology following undergoing anemia workup. Hemoglobin was found to be 6.5 today and will order 1 unit of PRBC and recommend close monitoring. No active bleeding noted. Patient was started on baby aspirin per neurology and scheduled to undergo MRI of the cervical spine today. Patient continues with significant weakness and will need rehab upon discharge. Patient is maintained on vitamin and zinc supplements and was also being followed by cardiology. Adjustments to medications being done and patient is on oral Cardizem. Will follow-up with repeat labs. Patient is afebrile and denies shortness of breath. Patient clinically appears to be improving. Per nursing staff patient is incontinent of stool in continues to be somewhat loose although less frequent. C. diff testing was negative and stool cultures are negative. Encouraged oral intake. Will discuss with case management about discharge planning to ECF as he will require a Covid hub. Review of systems: Constitutional: no reports of fatigue, no fever, or chills Cardiovascular: No reports of chest pain or palpitations Respiratory: No reports of shortness of breath or cough GI: No reports of nausea, vomiting, reports continued diarrhea, decreased appetite : No reports of dysuria or retention Neurovascular: reports of generalized weakness All medications have been reviewed Physical exam: Gen: This is a 62-year-old male awake, alert and oriented 3, well-developed, well-nourished, ill-appearing. HEENT: Head is atraumatic, normocephalic. Pupils equal, round. Sclerae is anicteric. NECK: Supple. No JVD. No lymphadenopathy. No thyromegaly. LUNGS: Breath sounds diminished bilaterally with some scattered rhonchi noted. No intercostal retractions. HEART: S1, S2 are muffled, irregular ABDOMEN: Soft. Bowel sounds are present. No masses. No tenderness. EXTREMITIES: No pedal edema. No calf tenderness. NEUROLOGICAL: Patient is awake, alert and oriented x3. Cranial nerves 2 through 12 are grossly intact. Diffusely weak Assessment: -Intractable nausea/vomiting/diarrhea; likely related to COVID-19 infection -Profound hypokalemia; improved after replacement -Severe hypomagnesemia likely due to diarrhea -Right side weakness, ruled out TIA versus CVA -Acute renal injury; likely prerenal secondary to dehydration with nausea/vomiting/diarrhea, improving -Lactic acidosis; likely related to intractable vomiting and diarrhea/dehydration; improved -COVID-19 infection with groundglass opacities seen in part of the lung with CT of the abdomen -Hypothyroidism -Gait dysfunction with generalized weakness -Depression history -DVT prophylaxis; SCDs/subcu heparin -No code Plan: Recommend continue current medications and multiple medical consultations following. Infectious disease is following patient is maintained on vitamins and zinc supplements along with subcutaneous heparin for COVID-19. Patient is not having any respiratory distress and is above 95% on room air Patient continues to have loose stools although C. diff testing has been negative and stool cultures are negative as well and patient with Imodium as needed and will continue Questran. Patient continues to be incontinent of stool and per nursing staff is loose although less frequent Patient with some right-sided weakness and CT of the brain showing normal age- related changes with no evidence of mass or midline shift and no acute process noted at this time, neurology following and undergoing neurological workup and pending cervical MRI at this time. Patient will likely need neurological evaluation in the outpatient setting for further EMG studies Overall generalized weakness, recommend PT/OT therapy daily, case management also following working on discharge planning and possible ECF and will need a Covid hub Recommend to replace electrolytes per protocol and will repeat a.m. labs Due to multiple complex medical issues, prognosis is extremely guarded Possible discharge in the next 24-48 hours The impression and plan of care has been dictated by Priscilla Steven, Nurse Practitioner as directed. Dr. Mark MD I have performed a history and examination and MDM of this patient, discussed the same with the dictator, and agree with the dictator's assessment and plan as written ,documented as a scribe. Based on total visit time, I have performed more than 50% of the visit. Objective - Vital Signs Vital signs: Vital Signs Temp 98.1 F 11/11/22 23:58 Pulse 86 11/11/22 23:58 Resp 18 11/11/22 23:58 BP 108/68 11/11/22 23:58 Pulse Ox 95 11/11/22 23:58 FiO2 Intake & Output 11/11/22 11/11/22 11/12/22 06:59 18:59 06:59 Intake Total 270 450 Balance 270 450 Intake: IV 40 150 Invasive Line 1 20 Invasive Line 2 20 150 Intake, IV Titration 300 Amount Sodium Chloride 0.9% 1, 300 000 ml @ 75 mls/hr IV . [id number] [place] Rx#:[id number] Oral 230 Other: Voiding Method Urinal Urinal Urinal Diaper Diaper Diaper Incontinent Incontinent Incontinent # Voids 3 # Bowel Movements 2 - Labs CBC & Chem 7: 11/11/22 21:44 11/11/22 07:52 Labs: Abnormal Lab Results - Last 24 Hours (Table) 11/09/22 11/09/22 11/11/22 Range/Units 10:12 11:48 07:52 RBC (4.30-5.90) m/uL Hgb (13.0-17.5) gm/dL Hct (39.0-53.0) % MCHC (31.0-37.0) g/dL Neutrophils # (Manual) (1.3-7.7) k/uL Sodium (137-145) mmol/L Potassium (3.5-5.1) mmol/L Chloride (98-107) mmol/L Carbon Dioxide (22-30) mmol/L Glucose (74-99) mg/dL Calcium (8.4-10.2) mg/dL Creatine Kinase <20 L (55-170) U/L Methylmalonic Acid 0.51 H (<0.40) umol/L Free [place] LC, Quant 12.95 H (0.33-1.94) mg/dL Free [place] LC, Quant 10.88 H (0.57-2.63) mg/dL Crossmatch 11/11/22 11/11/22 11/11/22 Range/Units 07:52 07:52 16:24 RBC 2.22 L (4.30-5.90) m/uL Hgb 6.5 L* (13.0-17.5) gm/dL Hct 21.3 L (39.0-53.0) % MCHC 30.6 L (31.0-37.0) g/dL Neutrophils # (Manual) (1.3-7.7) k/uL Sodium 134 L (137-145) mmol/L Potassium 3.3 L (3.5-5.1) mmol/L Chloride 117 H (98-107) mmol/L Carbon Dioxide 13 L (22-30) mmol/L Glucose 101 H (74-99) mg/dL Calcium 7.1 L (8.4-10.2) mg/dL Creatine Kinase (55-170) U/L Methylmalonic Acid (<0.40) umol/L Free [place] LC, Quant (0.33-1.94) mg/dL Free Lambda LC, Quant (0.57-2.63) mg/dL Crossmatch See Detail 11/11/22 Range/Units 21:44 RBC 2.48 L (4.30-5.90) m/uL Hgb 7.5 L (13.0-17.5) gm/dL Hct 24.1 L (39.0-53.0) % MCHC (31.0-37.0) g/dL Neutrophils # (Manual) 8.71 H (1.3-7.7) k/uL Sodium (137-145) mmol/L Potassium (3.5-5.1) mmol/L Chloride (98-107) mmol/L Carbon Dioxide (22-30) mmol/L Glucose (74-99) mg/dL Calcium (8.4-10.2) mg/dL Creatine Kinase (55-170) U/L Methylmalonic Acid (<0.40) umol/L Free [place] LC, Quant (0.33-1.94) mg/dL Free [place]ambda LC, Quant (0.57-2.63) mg/dL Crossmatch Microbiology - Last 24 Hours (Table) 11/08/22 11:00 Stool Culture - Final Stool
[2022-11-12] MEDS: SODIUM CHLORIDE 0.9% 1,000 ML IV SCH ×2 (06:56→17:20)
[2022-11-12] MEDS: LEVOTHYROXINE 50 MCG TAB PO SCH (06:56)
--- NOTE | 2022-11-12 08:19 | XR ---
EXAMINATION TYPE: XR chest 1V portable DATE OF EXAM: 11/12/2022 7:03 AM COMPARISON: Chest radiographs from 09/24/2022 TECHNIQUE: XR chest 1V portable Portable AP radiograph of the chest. CLINICAL INDICATION:Male, 62 years old with history of sob, covid; FINDINGS: Lungs/Pleura: Scattered subtle reticular and hazy opacities. No evidence of pneumothorax, focal conso lidation or pleural effusion. Pulmonary vascularity: Unremarkable. Heart/mediastinum: Cardiomediastinal silhouette is enlarged and stable. Musculoskeletal: No acute osseous pathology. IMPRESSION: Subtle scattered opacities which may represent an atypical pneumonia.
[2022-11-12 08:35] LABS: Calcium 7.1 mg/dL (8.4-10.2); Magnesium 1.6 mg/dL (1.6-2.3); Potassium 3.7 mmol/L (3.5-5.1)
[2022-11-12 08:39] LABS: Basophils % (A) 0 %; Eosinophils % (A) 0 %; Hypochromasia Marked; Lymphocytes # (A) 1.2 k/uL (1.0-4.8); Lymphocytes % (A) 14 %; MCH 29.9 pg (25.0-35.0); MCHC 30.8 g/dL (31.0-37.0); MCV 97.1 fL (80.0-100.0); Mean Platelet Volume 8.5; Monocytes # (A) 0.7 k/uL (0-1.0); Monocytes % (A) 7 %; Neutrophils # (A) 6.8 k/uL (1.3-7.7); Neutrophils % (A) 77 %; Platelet Count 356 k/uL (150-450); RBC 2.27 m/uL (4.30-5.90); RDW 14.3 % (11.5-15.5); WBC 8.8 k/uL (3.8-10.6)
[2022-11-12 08:42] LABS: HGB 6.8 gm/dL (13.0-17.5)
[2022-11-12] MEDS: CHOLECALCIFEROL 25 MCG (1000 IU) TABLET PO SCH (09:45)
[2022-11-12] MEDS: CHOLESTYRAMINE (WITH SUGAR) 4 GM PACKET PO SCH ×2 (09:45→17:35)
[2022-11-12] MEDS: CALCIUM CARBONATE 500 MG CHEWABLE PO SCH ×3 (09:46→21:59)
[2022-11-12] MEDS: DILTIAZEM ORAL 30 MG TAB PO SCH ×3 (09:46→21:59)
[2022-11-12] MEDS: FLUoxetine HCL 20 MG CAP PO SCH (09:46)
[2022-11-12] MEDS: ASPIRIN 81 MG PO SCH (09:46)
[2022-11-12] MEDS: ZINC SULFATE 220 MG CAP PO SCH (09:46)
[2022-11-12] MEDS: ASCORBIC ACID 500 MG TAB PO SCH (09:46)
[2022-11-12] MEDS: MAGNESIUM OXIDE 400 MG TAB PO SCH ×3 (09:47→21:59)
[2022-11-12] MEDS: THIAMINE 100 MG TAB PO SCH (09:47)
[2022-11-12] MEDS: PANTOPRAZOLE 40 MG/10 ML VIAL IVP SCH ×2 (09:47→21:59)
[2022-11-12] MEDS: CYANOCOBALAMIN 1,000 MCG/ML 1 ML VIAL IM SCH (09:47)
[2022-11-12] MEDS: FOLIC ACID 1 MG TAB PO SCH (09:47)
--- NOTE | 2022-11-12 10:05 | P.PN ---
Subjective Progress Note Date: 11/11/22 Patient was seen for a follow-up. Patient continues to complain about weakness. Denies any slurred speech, facial droop. No headache. Patient continues to have difficulty with walking. Patient states that whenever he stands up, he has to go to the bathroom. Telemetry monitoring showing sinus rhythm in 70-80 range. Objective - Vital Signs Vital signs: Vital Signs Temp 98 F 11/12/22 04:45 Pulse 86 11/12/22 04:45 Resp 15 11/12/22 04:45 BP 107/67 11/12/22 04:45 Pulse Ox 96 11/12/22 04:45 FiO2 Intake & Output 11/11/22 11/12/22 11/12/22 18:59 06:59 18:59 Intake Total 270 600 240 Balance 270 600 240 Intake: IV 40 300 Invasive Line 1 20 Invasive Line 2 20 300 Intake, IV Titration 300 Amount Sodium Chloride 0.9% 1, 300 000 ml @ 75 mls/hr IV . [id number] [place] Rx#:[id number] Oral 230 240 Other: Voiding Method Urinal Urinal Diaper Diaper Incontinent Incontinent # Voids 1 # Bowel Movements 1 - Exam Patient's mentation is normal. Detail examination deferred. Patient denies any changes in his condition. - Labs CBC & Chem 7: 11/12/22 07:57 11/12/22 07:57 Labs: Abnormal Lab Results - Last 24 Hours (Table) 11/09/22 11/11/22 11/11/22 Range/Units 11:48 16:24 21:44 RBC 2.48 L (4.30-5.90) m/uL Hgb 7.5 L (13.0-17.5) gm/dL Hct 24.1 L (39.0-53.0) % MCHC (31.0-37.0) g/dL Neutrophils # (Manual) 8.71 H (1.3-7.7) k/uL D-Dimer (<0.60) mg/L FEU Sodium (137-145) mmol/L Chloride (98-107) mmol/L Carbon Dioxide (22-30) mmol/L Calcium (8.4-10.2) mg/dL Free [place] LC, Quant 12.95 H (0.33-1.94) mg/dL Free [place] LC, Quant 10.88 H (0.57-2.63) mg/dL Crossmatch See Detail 11/12/22 11/12/22 11/12/22 Range/Units 07:57 07:57 07:57 RBC 2.27 L (4.30-5.90) m/uL Hgb 6.8 L* (13.0-17.5) gm/dL Hct 22.0 L (39.0-53.0) % MCHC 30.8 L (31.0-37.0) g/dL Neutrophils # (Manual) (1.3-7.7) k/uL D-Dimer 4.95 H (<0.60) mg/L FEU Sodium 134 L (137-145) mmol/L Chloride 116 H (98-107) mmol/L Carbon Dioxide 14 L (22-30) mmol/L Calcium 7.1 L (8.4-10.2) mg/dL Free [place] LC, Quant (0.33-1.94) mg/dL Free [place]ambda LC, Quant (0.57-2.63) mg/dL Crossmatch Microbiology - Last 24 Hours (Table) 11/08/22 11:00 Stool Culture - Final Stool Assessment and Plan Assessment: * Acute COVID infection with severe diarrhea for around 7-10 days. * Generalized weakness, slightly asymmetric. Etiology multifactorial, probably related to electrolyte imbalance, with hypokalemia, hyponatremia, hypocalcemia, hypomagnesemia. Guillain-Powell syndrome is in the differential, however patient's reflexes are still present proximally. Need to follow closely. * Vitamin B12 deficiency * Copper deficiency * Paroxysmal atrial fibrillation * Alcoholism * Anemia Plan: * Patient has significant weakness of all 4 extremities. Patient does have vitamin B12 deficiency, but structural abnormality needs to be ruled out. We will check MRI of the cervical spine. * Patient has evidence of vitamin B12 deficiency with B12 226 with low B12 and elevated methylmalonic acid 0.51. Patient started on vitamin B12 1000 g IM daily. * Hematology has seen the patient, ordered blood testing. * CPK < 20, vitamin B6 level. B1 69, TSH normal. Folate 21.2. Serum protein electrophoresis and immunofixation electrophoresis showed no paraproteinemia * For copper deficiency, would defer to hematology. * Patient also had an episode of paroxysmal atrial fibrillation. Cardiology has seen the patient, not recommending anticoagulation. I would start aspirin 81 mg daily. Discussed with primary team, and cleared for aspirin. * 2-D echo revealed left ventricular hypertrophy with normal left-ventricular systolic function with EF 55%. No obvious regional wall motion abnormalities. Left atrial size is normal. Mild to moderate mitral regurgitation. * PT, OT, evaluate gait. * DVT prophylaxis: Patient on heparin subcu.
[2022-11-12 11:12] LABS: INR 1.1 (<1.2); Partial Thromboplastin Time 26.9 sec (22.0-30.0); Prothrombin Time 11.5 sec (9.0-12.0)
--- NOTE | 2022-11-12 11:26 | US ---
EXAMINATION TYPE: US venous doppler duplex LE DATE OF EXAM: 11/12/2022 11:15 AM COMPARISON: NONE CLINICAL HISTORY: Covid, left leg swelling, elevated d-dimer. left leg swelling, no h/o dvt, Covid, e levated-dimer SIDE PERFORMED: Bilateral TECHNIQUE: The lower extremity deep venous system is examined utilizing real time linear array sonog antione with graded compression, doppler sonography and color-flow sonography. VESSELS IMAGED: Common Femoral Vein Deep Femoral Vein Greater Saphenous Vein * Femoral Vein Popliteal Vein Small Saphenous Vein * Proximal Calf Veins (* superficial vessels) Right Leg: Negative for DVT, Grayscale, color doppler, spectral doppler imaging performed of the melissa p veins of the lower extremities. There is normal flow, compressibility, vascular waveforms. Left Leg: Nonoccluding thrombus seen within posterior calf branch, internal echoes, not fully compre ssible, minimal flow seen. Remainder are within normal limits. Streaky subcutaneous changes at edema within the legs. IMPRESSION: 1. Nonoccluding thrombus within the proximal calf veins. 2. No evidence of deep vein tendinosis of the right lower extremity. 3. Subcutaneous edema throughout the legs.
--- NOTE | 2022-11-12 12:32 | CT ---
EXAMINATION TYPE: CT angio chest CT DLP: 495.6 mGycm, Automated exposure control for dose reduction was used. DATE OF EXAM: 11/12/2022 12:02 PM COMPARISON: Chest radiograph from same day. CLINICAL INDICATION:Male, 62 years old with history of elevated d dimer, covid; elevated d dimer, cov id TECHNIQUE/CONTRAST: CTA scan of the thorax is performed with IV Contrast, patient injected with 100 mL of Isovue 370, pul monary embolism protocol. MIP images are created and reviewed. FINDINGS: Respiratory motion is present. Pulmonary Artery: There is no evidence for a central filling defect within the pulmonary vasculature to suggest acute pulmonary embolism. Limited evaluation of the segmental and subsegmental branches se condary to bolus timing. The pulmonary artery is of normal size. Lungs/Pleura: . Trace left pleural effusion. There are scattered opacities throughout the lungs inclu ding right upper lobe measuring up to 18 mm in the lower lobe measuring up to 15 mm.. No pneumothorax . Mild intralobular septal thickening. Airway: Large airways are patent. Heart: Heart is mildly enlarged. 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 Mediastinum: No gross evidence of adenopathy. Musculoskeletal: No acute osseous abnormalities Soft Tissues: Unremarkable. Lower neck: Gynecomastia changes bilaterally. Upper Abdomen: The gallbladder surgically absent. Postoperative changes gastroesophageal junction. Sm all hiatal hernia. IMPRESSION: 1. Respiratory motion limits evaluation as well as bolus timing. No evidence of central pulmonary emb olism. Limited evaluation of the segmental and subsegmental branches. Consider examined the patient's able to hold their breath. 2. Groundglass opacity within the right lower lobe could represent atypical infectious process. 3. Cardiomegaly with pulmonary vascular congestion, correlate with serum BNP. 4. 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
--- NOTE | 2022-11-12 13:10 | P.CONS ---
History of Present Illness - Reason for Consult Consult date: 11/12/22 Anemia Requesting physician: Priscilla Steven - Chief Complaint Nausea vomiting and diarrhea - History of Present Illness This is a pleasant 62-year-old male who presented to the emergency room on 11/06/2022 with complaints of diarrhea. States he was having up to 7-8 loose stools within a 15 minute period. Patient was admitted and found to be positive for COVID-19 infection. He denies any new recent medications, has not had a colonoscopy in the past and he is scheduled in January of next year for screening colonoscopy. He's had a cold GERD which has been normal. His past medical history includes thyroid disease as well as heavy alcohol consumption. He is also had a previous history of gastric bypass surgery. He states he quit drinking 6 months ago he was striking a fifth a day for at least 4 years duration. On admission he was noted to have a hemoglobin of 8.7. During his hospitalization his hemoglobin had continued to drop and yesterday he went on to 6.5 requiring 1 unit of blood transfusion. Repeat today of 6.8 again requiring blood transfusion. He denies any black stool, no blood in his stool denies any abdominal pain, nausea or vomiting. Denies any history of GI bleed, no history of known liver disease. Hematology was consulted as patient has a normochromic normocytic anemia which they believe is all related to underlying virus is well as history of his comorbidities including alcoholism and likely damage to the liver causing bone marrow suppression. States diarrhea is improving and is starting to get a little more formed. He is having less episodes a day. He was started on Questran during his hospitalization. Labs WBC 8.8 hemoglobin 6.8 hematocrit 22 platelet count 356,000 INR 1.1 d-dimer 4.95 sodium 134 potassium 3.7 BUN 16 creatinine 1.1 Review of Systems REVIEW OF SYSTEMS: CARDIOPULMONARY: No chest pain or shortness of breath. Gastrointestinal: No abdominal pain or epigastric pain. No nausea or vomiting. No hematemesis, coffee-ground emesis. Patient has diarrhea, for last several days duration, patient's: Positive. No rectal bleeding, or melena. GENITOURINARY: No dysuria or hematuria. MUSCULOSKELETAL: Reports normal range of motion. SKIN: No rashes. No jaundice. ENDOCRINE: No chills, fevers. No excessive weight gain or loss. No polydipsia or polyuria. PSYCHIATRIC: History of depression and alcoholism. NEUROLOGY: No change in mental status. Denies dizziness, headache. ENT: Vision unremarkable. CONSTITUTIONAL: No recent weight loss. No fever, chills, night sweats. Past Medical History Past Medical History: Sleep Apnea/CPAP/BIPAP, Thyroid Disorder Additional Past Medical History / Comment(s): thyroid issue. pt reports not using CPAP/BIPAP at HS History of Any Multi-Drug Resistant Organisms: None Reported Additional Past Surgical History / Comment(s): gastric bypass. Umbilical hernia, 6x hernia surgeries, fell & broke hip in 2019 - pt was in [facility] at the time and reports getting a pin in hip. Past Anesthesia/Blood Transfusion Reactions: No Reported Reaction Past Psychological History: Depression Smoking Status: Never smoker Past Alcohol Use History: Occasional Additional Past Alcohol Use History / Comment(s): Patient reports moving to [place] in April 2022 and cutting back on alcohol use. Prior to moving to [facility], pt reports drinking one 5th of whiskey a day, but only drinks occasionally now. Pt reports to RN that he drank one 5th of whiskey last Wednesday. Past Drug Use History: None Reported Medications and Allergies Home Medications Medication Instructions Recorded Confirmed Type Calcium Carbonate [Calcium] 600 mg PO DAILY 09/09/22 11/06/22 History Ergocalciferol (Vitamin D2) 1,250 mcg PO MOWE 09/09/22 11/06/22 History [Drisdol (50,000 Iu)] FLUoxetine HCL [PROzac] 20 mg PO DAILY 09/09/22 11/06/22 History Levothyroxine Sodium [Synthroid] 50 mcg PO DAILY 09/09/22 11/06/22 History Magnesium Oxide [Magnesium] 500 mg PO DAILY 09/09/22 11/06/22 History Diclofenac Sodium Gel [Voltaren 2 gm TOPICAL QID PRN 11/06/22 11/06/22 History Gel] Folic Acid 0.4 mg PO DAILY 11/06/22 11/06/22 History Ibuprofen [Motrin] 600 mg PO TID PRN 11/06/22 11/06/22 History Thiamine [Vitamin B-1] 100 mg PO DAILY 11/06/22 11/06/22 History Allergies Allergy/AdvReac Type Severity Reaction Status Date / Time No Known Allergies Allergy Verified 11/06/22 14:38 Physical Exam Vitals: Vital Signs Temp Pulse Resp BP Pulse Ox 11/12/22 04:45 98 F 86 15 107/67 96 11/11/22 23:58 98.1 F 86 18 108/68 95 11/11/22 21:00 100.1 F H 94 20 133/71 98 11/11/22 15:57 96.3 F L 85 18 124/74 97 11/11/22 14:45 18 11/11/22 11:20 97.3 F L 75 18 118/71 96 Intake and Output 11/11/22 11/12/22 11/12/22 22:59 06:59 14:59 Intake Total 300 300 240 Balance 300 300 240 Intake: IV 300 Invasive Line 2 300 Intake, IV Titration 300 Amount Sodium Chloride 0.9% 1, 300 000 ml @ 75 mls/hr IV . [id number] [place] Rx#:[id number] Oral 240 Other: Voiding Method Urinal Urinal Diaper Diaper Incontinent Incontinent # Voids 1 # Bowel Movements 1 General appearance: The patient is alert, oriented, appears in no acute distress. HET: Head is normocephalic and atraumatic. Conjunctiva pink. Sclera anicteric. Neck: Supple without lymphadenopathy. Trachea midline. Heart: S1 S2. Regular rate and rhythm. Lungs: Clear to auscultation. Abdomen: Soft, nontender, nondistended with bowel sounds. No guarding or rigidity. Skin: No rashes. No jaundice. Extremities: Normal skin color and turgor. No pedal edema. Neurological: No focal deficits. Alert and oriented x3. Results CBC & Chem 7: 11/12/22 07:57 11/12/22 07:57 Labs: Abnormal Lab Results - Last 24 Hours (Table) 11/09/22 11/11/22 11/11/22 Range/Units 11:48 16:24 21:44 RBC 2.48 L (4.30-5.90) m/uL Hgb 7.5 L (13.0-17.5) gm/dL Hct 24.1 L (39.0-53.0) % MCHC (31.0-37.0) g/dL Neutrophils # (Manual) 8.71 H (1.3-7.7) k/uL D-Dimer (<0.60) mg/L FEU Sodium (137-145) mmol/L Chloride (98-107) mmol/L Carbon Dioxide (22-30) mmol/L Calcium (8.4-10.2) mg/dL Procalcitonin (0.02-0.09) ng/mL Free Wilkerson LC, Quant 12.95 H (0.33-1.94) mg/dL Free Lambda LC, Quant 10.88 H (0.57-2.63) mg/dL Crossmatch See Detail 11/12/22 11/12/22 11/12/22 Range/Units 07:57 07:57 07:57 RBC 2.27 L (4.30-5.90) m/uL Hgb 6.8 L* (13.0-17.5) gm/dL Hct 22.0 L (39.0-53.0) % MCHC 30.8 L (31.0-37.0) g/dL Neutrophils # (Manual) (1.3-7.7) k/uL D-Dimer 4.95 H (<0.60) mg/L FEU Sodium 134 L (137-145) mmol/L Chloride 116 H (98-107) mmol/L Carbon Dioxide 14 L (22-30) mmol/L Calcium 7.1 L (8.4-10.2) mg/dL Procalcitonin (0.02-0.09) ng/mL Free Wilkerson LC, Quant (0.33-1.94) mg/dL Free Lambda LC, Quant (0.57-2.63) mg/dL Crossmatch 11/12/22 Range/Units 07:57 RBC (4.30-5.90) m/uL Hgb (13.0-17.5) gm/dL Hct (39.0-53.0) % MCHC (31.0-37.0) g/dL Neutrophils # (Manual) (1.3-7.7) k/uL D-Dimer (<0.60) mg/L FEU Sodium (137-145) mmol/L Chloride (98-107) mmol/L Carbon Dioxide (22-30) mmol/L Calcium (8.4-10.2) mg/dL Procalcitonin 4.11 H (0.02-0.09) ng/mL Free Wilkerson LC, Quant (0.33-1.94) mg/dL Free Lambda LC, Quant (0.57-2.63) mg/dL Crossmatch Microbiology - Last 24 Hours (Table) 11/08/22 11:00 Stool Culture - Final Stool Assessment and Plan (1) Normocytic normochromic anemia Narrative/Plan: 62-year-old male who presented to the emergency department with diarrhea and tested positive for COVID-19 infection presented with anemia. Hemoglobin continually dropped throughout his hospital stay requiring now 2 units of blood transfusion. Hematology has been following a believes likely related to underlying virus as well as possible component of liver disease from alcoholism causing some bone marrow suppression. Patient does not have any signs or symptoms of GI bleed. He denies any dark stool lack stool or blood in his stool. He has no nausea or vomiting. He is not on any anticoagulation. He has no prior history of EGD or colonoscopy. He is scheduled for screening colonoscopy in January of this year. Would recommend outpatient EGD colonoscopy once patient is feeling better. Continue with recommendations from hematology. No plans on endoscopic evaluation. Current Visit: Yes Status: Acute Priority: High Code(s): D64.9 - ANEMIA, UNSPECIFIED SNOMED Code(s): 88021944 (2) COVID-19 Current Visit: Yes Status: Acute Priority: High Code(s): U07.1 - COVID-19 SNOMED Code(s): 261189905 (3) Diarrhea Current Visit: Yes Status: Acute Priority: High Code(s): R19.7 - DIARRHEA, UNSPECIFIED SNOMED Code(s): 19534722 Plan: 1. Continue symptomatic and supportive care 2. Protonix 40 mg daily GI prophylaxis 3. Continue with Questran 4. Continue with recommendations from hematology. Agree with hematology likely not related to a GI bleed, normocytic normochromic anemia 5. No plans on endoscopic evaluation at this time. Patient can follow-up with GI for outpatient EGD/colonoscopy screening 6. Daily CBC, transfuse her hemoglobin less than 7 Thank you for this consultation, we will continue to follow. Dr. Radha Lundberg I agree with the dictator's note, documented as a scribe by Sarah Oconnor.
--- NOTE | 2022-11-12 13:40 | P.PN ---
Subjective Progress Note Date: 11/12/22 PROGRESS NOTE The patient is a 62-year-old male who presented with severe diarrhea following COVID infection. Cardiology consultation was requested because of paroxysmal atrial fibrillation. He is back in sinus mechanism. He was hypokalemic. He denies any chest discomfort or dyspnea. He denies any dizziness or palpitations. He continues to be in sinus mechanism. His echo is pending. He continues to have some diarrhea but no nausea or vomiting, no abdominal pain. He had mild troponin elevation. He was anemic on presentation November 10: The patient feels better overall, he continues to have mild diarrhea but better. He denies any chest discomfort, dizziness or palpitations. He continues to be in sinus mechanism at this time. His echocardiogram showed an ejection fraction of 55% with [id number] mitral regurgitation November 11: The patient continues to feel fatigued, his diarrhea is better. He is anemic. He has no further atrial fibrillation. He denies any dizziness or palpitations. November 12: He continues to feel fatigued and short of breath. He is receiving transfusion. He has peripheral edema on the left side and his duplex scan showed possible thrombus. He denies any nausea but continues to have diarrhea. He was evaluated by the GI service. He continues to be in sinus mechanism with no recurrent atrial fibrillation. Medications: calcium, Prozac, levothyroxine, Cardizem 30 mg 3 times a day, aspirin once a day, magnesium, thiamine, Questran PHYSICAL EXAMINATION: Blood pressur 109/60 heart rat 90 LUNGS: Clear to auscultation HEART: Regular rate and rhythm, S1, S2. No S3. No systolic murmur ABDOMEN: Soft, nontender, no organomegaly EXTREMETIES +1 edema on the left LAB: Potassium 3.7 hemoglobin 6.8 BUN16, creatinin 1.14 IMPRESSION: 1. Severe diarrhea secondary to COVID infection, 2. Paroxysmal atrial fibrillation, secondary to the metabolic abnormalities, his risk score is 0, remains in sinus mechanism 3. Mild troponin elevation, type II myocardial injury 4. Anemia of unknown duration or etiology 5. Hypokalemia corrected 6. Possible left lower extremity thrombus PLAN: 1. Continue Cardizem 2. Workup of anemia per hematology 3. Start low-dose diuretics until edema resolves 4.Transfusions as needed Objective - Vital Signs Vital signs: Vital Signs Temp 99.3 F 11/12/22 13:27 Pulse 90 11/12/22 13:27 Resp 18 11/12/22 13:27 BP 109/63 11/12/22 13:27 Pulse Ox 100 11/12/22 13:27 FiO2 Intake & Output 11/11/22 11/12/22 11/12/22 18:59 06:59 18:59 Intake Total 270 600 240 Balance 270 600 240 Intake: IV 40 300 Invasive Line 1 20 Invasive Line 2 20 300 Intake, IV Titration 300 Amount Sodium Chloride 0.9% 1, 300 000 ml @ 75 mls/hr IV . [id number] [facility] Rx#:[id number] Oral 230 240 Blood Product 0 Rc Pheresis As-3 Unit 0 [id number] Other: Voiding Method Urinal Urinal Urinal Diaper Diaper Incontinent Incontinent # Voids 1 # Bowel Movements 1 - Labs CBC & Chem 7: 11/12/22 07:57 11/12/22 07:57 Labs: Abnormal Lab Results - Last 24 Hours (Table) 11/11/22 11/11/22 11/12/22 Range/Units 16:24 21:44 07:57 RBC 2.48 L (4.30-5.90) m/uL Hgb 7.5 L (13.0-17.5) gm/dL Hct 24.1 L (39.0-53.0) % MCHC (31.0-37.0) g/dL Neutrophils # (Manual) 8.71 H (1.3-7.7) k/uL D-Dimer (<0.60) mg/L FEU Sodium 134 L (137-145) mmol/L Chloride 116 H (98-107) mmol/L Carbon Dioxide 14 L (22-30) mmol/L Calcium 7.1 L (8.4-10.2) mg/dL Procalcitonin (0.02-0.09) ng/mL Crossmatch See Detail 11/12/22 11/12/22 11/12/22 Range/Units 07:57 07:57 07:57 RBC 2.27 L (4.30-5.90) m/uL Hgb 6.8 L* (13.0-17.5) gm/dL Hct 22.0 L (39.0-53.0) % MCHC 30.8 L (31.0-37.0) g/dL Neutrophils # (Manual) (1.3-7.7) k/uL D-Dimer 4.95 H (<0.60) mg/L FEU Sodium (137-145) mmol/L Chloride (98-107) mmol/L Carbon Dioxide (22-30) mmol/L Calcium (8.4-10.2) mg/dL Procalcitonin 4.11 H (0.02-0.09) ng/mL Crossmatch Microbiology - Last 24 Hours (Table) 11/08/22 11:00 Stool Culture - Final Stool
[2022-11-12] MEDS ORDERED: AZITHROMYCIN 500 MG TAB PO STA (13:57)
[2022-11-12] MEDS: SODIUM FERRIC GLUCONAT-SUCROSE 125 MG in SODIUM CHLORIDE 0.9% 100 ML IVPB SCH (15:09)
[2022-11-12] MEDS: FUROSEMIDE 20 MG TAB PO SCH ×2 (15:10→22:00)
--- NOTE | 2022-11-12 15:54 | P.PN ---
Subjective Progress Note Date: 11/12/22 Paroxysmal atrial fibrillation Intractable nausea/vomiting/diarrhea Profound hypokalemia Acute renal injury COVID-19 infection 62-year-old male in the emergency department for diarrhea. She notes diarrhea starting and he asked progressively gotten worse. He reports he stood up from a chair and had an episode of diarrhea, admits he still maintains bowel function. He has not tried anything for his symptoms. He denies nausea, vomiting, abdominal pain, palpitations, fevers. Denies recent travel or recent antibiotic use. He is scheduled to have his first colonoscopy in january of 2023. Patient had an initial lab work is remarkable for WBC is 11.4, hemoglobin 8.7, INR 1.2, sodium 133, potassium 2.6 lactic acid 2.9, calcium 6.3, magnesium 0.8, lipase 60, COVID positive. I interpreted the following; CT abdomen without contrast remarkable for fluid filled colon without focal wall thickening or surrounding inflammatory changes. Patient was given 2 L fluids, potassium, magnesium and calcium during his course of the ED. 11/08/2022 Patient is seen and evaluated on selective care unit; he went into atrial fibrillation with rapid ventricular response he was transferred to the third floor/selective minute. The patient did not have any symptoms of heart racing or fluttering and no dizziness or lightheadedness and no presyncope or syncope and no symptoms of chest pain or chest discomfort or shortness of breath. No prior history of atrial fibrillation. 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 Beside that no history of diabetes or hypertension or dyslipidemia. The patient was started initially on Cardizem drip but his pressure did go down and for that reason he was switched into amiodarone IV and subsequently converted to normal sinus mechanism and since then he has been maintaining normal sinus mechanism. Further investigation was performed including CBC and that showed a hemoglobin of 7.7. The patient has no history of bleeding. B eside that he underwent a computed tomography scan of the abdomen and pelvis because of the abdominal discomfort that showed no acute abnormalities. The troponin came in to be slightly elevated likely secondary to tachycardia. The EKG showed sinus rhythm now with no significant ST or T-wave abnormalities. Blood work reveals mild elevation of troponin; Patient has been evaluated by cardiology and recommended to continue with IV fluids, replace electrolytes; IV amiodarone is to be discontinued patient is transition to oral dose daily 11/09/2022 Patient is seen and evaluated in follow-up this morning and continues to feel generalized weakness and continues with loose stools. Per nursing staff when assisting to clean the patient up patient was significantly weak on the right. Patient denied any headache, dizziness, or lightheadedness. Will obtain a CT of the brain and also consult neurology. Recommend PT/OT therapy evaluation for significant weakness. C. diff testing was negative on the stool and will add Imodium and encourage oral intake and advance as tolerated. Patient is ma intaining on vitamins and zinc supplements along with subcutaneous heparin with anxiety following closely. Patient denies chest pain or shortness of breath. Afebrile. Recommend a.m. labs as well. 11/10/2022 Patient is seen in follow-up today with multiple medical consultations including cardiology, hematology, infectious disease, and now neurology following. Patient with significant weakness in all upper and lower extremities with neurology undergoing workup recommending aspirin as patient is not on any anticoagulation at this time. Cardiology is following and patient was transitioned back to IV Cardizem although being changed to oral with close monitoring. Magnesium found to be significantly low at 1.2 and will replace per protocol and recommend repeat labs. Hemoglobin is mildly low at 7.4 and undergoing anemia workup with hematology following. Patient with Covid and extreme weakness will need ECF and discharge planning in process. Recommend close monitoring of labs and replace electrolytes per protocol. Patient was started on Imodium as C. diff testing 2 was negative. Patient continues to have loose stools although somewhat improved. Encouraged oral intake and incr eased activity as tolerated. Recommend PT/OT therapy daily. Patient denies chest pain or shortness of breath. Patient is 97% on room air. Patient will continue on vitamin and zinc supplements with anxiety following closely. Recommend gentle IV hydration. 11/11/2022 Patient is seen and evaluated in follow-up with multiple medical consultations following including infectious disease and neurology. Oncology following undergoing anemia workup. Hemoglobin was found to be 6.5 today and will order 1 unit of PRBC and recommend close monitoring. No active bleeding noted. Patient was started on baby aspirin per neurology and scheduled to undergo MRI of the cervical spine today. Patient continues with significant weakness and will need rehab upon discharge. Patient is maintained on vitamin and zinc supplements and was also being followed by cardiology. Adjustments to medications being done and patient is on oral Cardizem. Will follow-up with repeat labs. Patient is afebrile and denies shortness of breath. Patient clinically appears to be improving. Per nursing staff patient is incontinent of stool in continues to be somewhat loose although less frequent. C. diff testing was negative and stool cultures are negative. Encouraged oral intake. Will discuss with case management about discharge planning to ECF as he will require a Covid hub. 11/12/2022 Patient is seen and evaluated in follow-up today with multiple medical consultations following including infectious disease, cardiology, neurology. Patient's hemoglobin is low again at 6.8 and will give 1 unit. Recommend holding aspirin. Patient did have an elevated d-dimer and CTA was ordered. GI was also consulted for anemia. Patient continues to have incontinence of stool and loose stools and is maintained on Questran and will be given Imodium as needed. Patient continues with generalized weakness and fatigue and also having some lower extremity pain and swelling and have ordered Dopplers of bilateral lo wer extremities as well. Patient with Covid vitamin and zinc supplements and anticoagulation with subcu heparin. Hematology also following for anemia. Recommend repeat CBC this evening and will transfuse another unit as well. Cardiology following and adjustments to medications being made and patient also being started on low-dose diuretics. Patient is having low-grade temps of 99.3- 99.6 and patient continues to be 95% or above on room air. Blood pressure on the lower side although stable. Stool cultures and C. diff testing have been negative. Patient started on antibiotics per ID recommendations in the form of Zithromax and ceftriaxone. Reviewed iron studies which are low and will give IV iron as well. Electrolytes continue to be low and will replace per protocol. Patient will need ECF once stabilized and discharged Review of systems: Constitutional: reports of fatigue, no fever, or chills Cardiovascular: No reports of chest pain or palpitations Respiratory: No reports of shortness of breath or cough GI: No reports of nausea, vomiting, reports continued diarrhea, decreased appetite : No reports of dysuria or retention Neurovascular: reports of generalized weakness All medications have been reviewed Physical exam: Gen: This is a 62-year-old male awake, alert and oriented 3, well-developed, well-nourished, ill-appearing. Pale HEENT: Head is atraumatic, normocephalic. Pupils equal, round. Sclerae is anicteric. NECK: Supple. No JVD. No lymphadenopathy. No thyromegaly. LUNGS: Breath sounds diminished bilaterally with some scattered rhonchi noted. No intercostal retractions. HEART: S1, S2 are muffled, irregular ABDOMEN: Soft. Bowel sounds are present. No masses. No tenderness. EXTREMITIES: No pedal edema. No calf tenderness. Lower extremity edema NEUROLOGICAL: Patient is awake, alert and oriented x3. Cranial nerves 2 through 12 are grossly intact. Diffusely weak Assessment: -Intractable nausea/vomiting/diarrhea; likely related to COVID-19 infection -Profound hypokalemia; improved after replacement -Severe hypomagnesemia likely due to diarrhea, replacing -Normocytic normochromic anemia possibly secondary to underlying virus and possible component of liver disease from alcoholism -Elevated d-dimer with no evidence of PE on CTA -Bilateral lower extremity pain and swelling, right negative for DVT, left showing a nonoccluding thrombus seen within the posterior Branch and streaky subcutaneous edema noted within the legs -Right side weakness, ruled out TIA versus CVA -Acute renal injury; likely prerenal secondary to dehydration with nausea/vomiting/diarrhea, improving -Lactic acidosis; likely related to intractable vomiting and di arrhea/dehydration; improved -COVID-19 infection with groundglass opacities seen in part of the lung with CT of the abdomen -Hypothyroidism -Gait dysfunction with generalized weakness -Depression history -DVT prophylaxis; SCDs/subcu heparin -No code Plan: Recommend continue current medications and multiple medical consultations following. Infectious disease is following patient is maintained on vitamins and zinc supplements along with subcutaneous heparin for COVID-19. Patient is not having any respiratory distress and is above 95% on room air, being started on Zithromax and ceftriaxone Patient continues to have loose stools although C. diff testing has been negative and stool cultures are negative as well and patient with Imodium as needed and will continue Questran. Patient continues to be incontinent of stool and per nursing staff is loose although less frequent Patient with some right-sided weakness and CT of the brain showing normal age- related changes with no evidence of mass or midline shift and no acute process noted at this time, neurology following and undergoing neurological workup and pending cervical MRI at this time. Patient will likely need neurological evalu ation in the outpatient setting for further EMG studies Hemoglobin low at 6.8 again post 1 unit of PRBC will give another unit and recommend repeat labs this evening and will transfuse if less than 7 Iron studies reviewed and low will give IV iron GI consulted for anemia and hematology is following as well most likely normocytic normochromic anemia Overall generalized weakness, recommend PT/OT therapy daily, case management also following working on discharge planning and possible ECF and will need a Covid hub Recommend to replace electrolytes per protocol and will repeat a.m. labs Due to multiple complex medical issues, prognosis is extremely guarded The impression and plan of care has been dictated by Priscilla Steven, Nurse Practitioner as directed. Dr. Mark MD I have performed a history and examination and MDM of this patient, discussed the same with the dictator, and agree with the dictator's assessment and plan as written ,documented as a scribe. Based on total visit time, I have performed more than 50% of the visit. Objective - Vital Signs Vital signs: Vital Signs Temp 99.3 F 11/12/22 13:27 Pulse 90 11/12/22 13:27 Resp 18 11/12/22 13:27 BP 109/63 11/12/22 13:27 Pulse Ox 100 11/12/22 13:27 FiO2 Intake & Output 11/11/22 11/12/22 11/12/22 18:59 06:59 18:59 Intake Total 270 600 518 Balance 270 600 518 Intake: IV 40 300 Invasive Line 1 20 Invasive Line 2 20 300 Intake, IV Titration 300 Amount Sodium Chloride 0.9% 1, 300 000 ml @ 75 mls/hr IV . [id number] [facility] Rx#:[id number] Oral 230 240 Blood Product 278 Rc Pheresis As-3 Unit 278 [id number] Other: Voiding Method Urinal Urinal Urinal Diaper Diaper Incontinent Incontinent # Voids 1 # Bowel Movements 1 - Labs CBC & Chem 7: 11/12/22 07:57 11/12/22 07:57 Labs: Abnormal Lab Results - Last 24 Hours (Table) 11/11/22 11/11/22 11/12/22 Range/Units 16:24 21:44 07:57 RBC 2.48 L (4.30-5.90) m/uL Hgb 7.5 L (13.0-17.5) gm/dL Hct 24.1 L (39.0-53.0) % MCHC (31.0-37.0) g/dL Neutrophils # (Manual) 8.71 H (1.3-7.7) k/uL D-Dimer (<0.60) mg/L FEU Sodium 134 L (137-145) mmol/L Chloride 116 H (98-107) mmol/L Carbon Dioxide 14 L (22-30) mmol/L Calcium 7.1 L (8.4-10.2) mg/dL Procalcitonin (0.02-0.09) ng/mL Crossmatch See Detail 11/12/22 11/12/22 11/12/22 Range/Units 07:57 07:57 07:57 RBC 2.27 L (4.30-5.90) m/uL Hgb 6.8 L* (13.0-17.5) gm/dL Hct 22.0 L (39.0-53.0) % MCHC 30.8 L (31.0-37.0) g/dL Neutrophils # (Manual) (1.3-7.7) k/uL D-Dimer 4.95 H (<0.60) mg/L FEU Sodium (137-145) mmol/L Chloride (98-107) mmol/L Carbon Dioxide (22-30) mmol/L Calcium (8.4-10.2) mg/dL Procalcitonin 4.11 H (0.02-0.09) ng/mL Crossmatch Microbiology - Last 24 Hours (Table) 11/08/22 11:00 Stool Culture - Final Stool
--- NOTE | 2022-11-12 16:06 | P.PN ---
Subjective Progress Note Date: 11/11/22 Principal diagnosis: Covid 19 Patient is a 62-year-old male who is unvaccinated for COVID-19 patient was brought into the ER for evaluation of weakness no energy mention the patient was not able to get stand up and go to the bathroom patient has been dealing with the diarrhea off and on for couple of weeks, patient was noticed to have a positive covid test, however the patient was not hypoxic and CT abdominal pelvis with few bibasilar patchy groundglass opacity representing atelectasis and no evidence of colitis. On today's evaluation that is 11/11/2022, the patient did have low-grade fever 100.6 around 5 AM however the patient is afebrile since then, the patient is breathing comfortably on room air and satting 96%. The patient denies chest pain or shortness of breath, the patient did have mild cough but no sputum production no abdominal pain , patient diarrhea has slowed down per the nursing staff Objective - Vital Signs Vital signs: Vital Signs Temp 97.3 F L 11/11/22 11:20 Pulse 75 11/11/22 11:20 Resp 18 11/11/22 14:45 BP 118/71 11/11/22 11:20 Pulse Ox 96 11/11/22 11:20 FiO2 Intake & Output 11/10/22 11/11/22 11/11/22 18:59 06:59 18:59 Intake Total 472 270 Balance 472 270 Intake: IV 40 Invasive Line 1 20 Invasive Line 2 20 Oral 472 230 Other: Voiding Method Urinal Urinal Urinal Incontinent Diaper Diaper Incontinent Incontinent # Voids 1 3 # Bowel Movements 1 2 - Exam GENERAL DESCRIPTION: An elderly male lying in bed in no distress RESPIRATORY SYSTEM: Unlabored breathing , decreased breath sounds at bases HEART: S1 S2 regular rate and rhythm , ABDOMEN: Soft , no tenderness EXTREMITIES: No edema feet - Labs CBC & Chem 7: 11/12/22 07:57 11/12/22 07:57 Labs: Abnormal Lab Results - Last 24 Hours (Table) 11/09/22 11/09/22 11/11/22 Range/Units 10:12 11:48 07:52 RBC (4.30-5.90) m/uL Hgb (13.0-17.5) gm/dL Hct (39.0-53.0) % MCHC (31.0-37.0) g/dL Sodium (137-145) mmol/L Potassium (3.5-5.1) mmol/L Chloride (98-107) mmol/L Carbon Dioxide (22-30) mmol/L Glucose (74-99) mg/dL Calcium (8.4-10.2) mg/dL Creatine Kinase <20 L (55-170) U/L Methylmalonic Acid 0.51 H (<0.40) umol/L Free Mclean LC, Quant 12.95 H (0.33-1.94) mg/dL Free Lambda LC, Quant 10.88 H (0.57-2.63) mg/dL 11/11/22 11/11/22 Range/Units 07:52 07:52 RBC 2.22 L (4.30-5.90) m/uL Hgb 6.5 L* (13.0-17.5) gm/dL Hct 21.3 L (39.0-53.0) % MCHC 30.6 L (31.0-37.0) g/dL Sodium 134 L (137-145) mmol/L Potassium 3.3 L (3.5-5.1) mmol/L Chloride 117 H (98-107) mmol/L Carbon Dioxide 13 L (22-30) mmol/L Glucose 101 H (74-99) mg/dL Calcium 7.1 L (8.4-10.2) mg/dL Creatine Kinase (55-170) U/L Methylmalonic Acid (<0.40) umol/L Free Mclean LC, Quant (0.33-1.94) mg/dL Free Lambda LC, Quant (0.57-2.63) mg/dL Microbiology - Last 24 Hours (Table) 11/08/22 11:00 Stool Culture - Preliminary Stool Assessment and Plan (1) COVID-19 Current Visit: Yes Status: Acute Priority: High Code(s): U07.1 - COVID-19 SNOMED Code(s): 057990221 (2) Diarrhea Current Visit: Yes Status: Acute Priority: High Code(s): R19.7 - DIARRHEA, UNSPECIFIED SNOMED Code(s): 55193265 Plan: 1patient present to hospital generalized weakness which is likely multifactorial could be related to his diarrhea has not patient did have significant diarrhea and evidence of prerenal status was low potassium, stool for C. diff is negative stool cultures has been obtained and currently pending, patient to continue Questran and advised to increase his probiotic and yogurt intake 2patient with a positive COVID test however no significant respiratory symptoms the patient is currently not hypoxic or need for supplemental oxygen , patient to continue with the current supportive treatment and monitor clinical course closely Time with Patient: Less than 30
--- NOTE | 2022-11-12 16:07 | P.PN ---
Subjective Progress Note Date: 11/12/22 Principal diagnosis: Covid 19 Patient is a 62-year-old male who is unvaccinated for COVID-19 patient was brought into the ER for evaluation of weakness no energy mention the patient was not able to get stand up and go to the bathroom patient has been dealing with the diarrhea off and on for couple of weeks, patient was noticed to have a positive covid test, however the patient was not hypoxic and CT abdominal pelvis with few bibasilar patchy groundglass opacity representing atelectasis and no evidence of colitis. On today's evaluation that is 11/12/2022, the patient did have low-grade fever 100.1 last evening however the patient is afebrile since then, the patient is breathing comfortably on room air and no need for supplemental oxygen %. The patient denies chest pain or shortness of breath, the patient did have mild cough but no sputum production the patient denies abdominal pain, the patient that he has slowed down and is slightly forming up per the nursing staff Objective - Vital Signs Vital signs: Vital Signs Temp 99.3 F 11/12/22 13:27 Pulse 90 11/12/22 13:27 Resp 18 11/12/22 13:27 BP 109/63 11/12/22 13:27 Pulse Ox 100 11/12/22 13:27 FiO2 Intake & Output 11/11/22 11/12/22 11/12/22 18:59 06:59 18:59 Intake Total 270 600 240 Balance 270 600 240 Intake: IV 40 300 Invasive Line 1 20 Invasive Line 2 20 300 Intake, IV Titration 300 Amount Sodium Chloride 0.9% 1, 300 000 ml @ 75 mls/hr IV . [id number] [facility] Rx#:[id number] Oral 230 240 Blood Product 0 Rc Pheresis As-3 Unit 0 [id number] Other: Voiding Method Urinal Urinal Urinal Diaper Diaper Incontinent Incontinent # Voids 1 # Bowel Movements 1 - Exam GENERAL DESCRIPTION: An elderly male lying in bed in no distress RESPIRATORY SYSTEM: Unlabored breathing , decreased breath sounds at bases HEART: S1 S2 regular rate and rhythm , ABDOMEN: Soft , no tenderness EXTREMITIES: No edema feet - Labs CBC & Chem 7: 11/12/22 07:57 11/12/22 07:57 Labs: Abnormal Lab Results - Last 24 Hours (Table) 11/11/22 11/11/22 11/12/22 Range/Units 16:24 21:44 07:57 RBC 2.48 L (4.30-5.90) m/uL Hgb 7.5 L (13.0-17.5) gm/dL Hct 24.1 L (39.0-53.0) % MCHC (31.0-37.0) g/dL Neutrophils # (Manual) 8.71 H (1.3-7.7) k/uL D-Dimer (<0.60) mg/L FEU Sodium 134 L (137-145) mmol/L Chloride 116 H (98-107) mmol/L Carbon Dioxide 14 L (22-30) mmol/L Calcium 7.1 L (8.4-10.2) mg/dL Procalcitonin (0.02-0.09) ng/mL Crossmatch See Detail 11/12/22 11/12/22 11/12/22 Range/Units 07:57 07:57 07:57 RBC 2.27 L (4.30-5.90) m/uL Hgb 6.8 L* (13.0-17.5) gm/dL Hct 22.0 L (39.0-53.0) % MCHC 30.8 L (31.0-37.0) g/dL Neutrophils # (Manual) (1.3-7.7) k/uL D-Dimer 4.95 H (<0.60) mg/L FEU Sodium (137-145) mmol/L Chloride (98-107) mmol/L Carbon Dioxide (22-30) mmol/L Calcium (8.4-10.2) mg/dL Procalcitonin 4.11 H (0.02-0.09) ng/mL Crossmatch Microbiology - Last 24 Hours (Table) 11/08/22 11:00 Stool Culture - Final Stool Assessment and Plan (1) COVID-19 Current Visit: Yes Status: Acute Priority: High Code(s): U07.1 - COVID-19 SNOMED Code(s): 125178503 (2) Diarrhea Current Visit: Yes Status: Acute Priority: High Code(s): R19.7 - DIARRHEA, UNSPECIFIED SNOMED Code(s): 11251865 Plan: 1patient present to hospital generalized weakness which is likely multifactorial could be related to his diarrhea has not patient did have significant diarrhea and evidence of prerenal status was low potassium, stool for C. diff is negative stool cultures has been obtained and currently pending, patient to continue Questran and advised to increase his probiotic and yogurt intake 2patient with a low-grade fever, the patient did have elevated pro calcitonin, CT angiogram of the chest was negative for PE however did shows right lower lobe infiltrate suspicious for pneumonia, we will try to obtain sputum for Gram stain culture and start the patient on Rocephin and Zithromax and monitor clinical course closely Time with Patient: Less than 30
[2022-11-12] MEDS: ACETAMINOPHEN TAB 325 MG TAB PO PRN (16:45)
[2022-11-12 17:27] LABS: Basophils % (A) 0 %; Eosinophils % (A) 0 %; HCT 28.8 % (39.0-53.0); Hypochromasia Marked; Lymphocytes # (A) 1.4 k/uL (1.0-4.8); Lymphocytes % (A) 15 %; MCHC 30.2 g/dL (31.0-37.0); Mean Platelet Volume 9.2; Monocytes # (A) 0.2 k/uL (0-1.0); Monocytes % (A) 3 %; Neutrophils # (A) 7.7 k/uL (1.3-7.7); Neutrophils % (A) 80 %; Platelet Count 364 k/uL (150-450); RDW 15.3 % (11.5-15.5); WBC 9.6 k/uL (3.8-10.6)
[2022-11-12 17:34] LABS: HGB 8.7 gm/dL (13.0-17.5)
--- NOTE | 2022-11-12 18:46 | P.PN ---
Subjective Progress Note Date: 11/12/22 Principal diagnosis: anemia Pt in f/u is Seems a little frustrated today, he is denying any acute physical complaints. No bleeding to report. He has not received a unit of blood yet. Objective - Vital Signs Vital signs: Vital Signs Temp 99.4 F 11/12/22 13:07 Pulse 90 11/12/22 13:07 Resp 18 11/12/22 13:07 BP 107/64 11/12/22 13:07 Pulse Ox 96 11/12/22 13:01 FiO2 Intake & Output 11/11/22 11/12/22 11/12/22 18:59 06:59 18:59 Intake Total 270 600 240 Balance 270 600 240 Intake: IV 40 300 Invasive Line 1 20 Invasive Line 2 20 300 Intake, IV Titration 300 Amount Sodium Chloride 0.9% 1, 300 000 ml @ 75 mls/hr IV . [id number] [place] Rx#:[id number] Oral 230 240 Blood Product 0 Rc Pheresis As-3 Unit 0 [id number] Other: Voiding Method Urinal Urinal Urinal Diaper Diaper Incontinent Incontinent # Voids 1 # Bowel Movements 1 - Exam Deferred secondary to covid Infection - Constitutional General appearance: Present: average body habitus, cooperative, no acute distress - EENT Eyes: Present: anicteric sclerae, EOMI ENT: Present: hearing grossly normal - Psychiatric Psychiatric: Present: A&O x's 3, appropriate affect, intact judgment & insight - Labs CBC & Chem 7: 11/12/22 16:57 11/12/22 07:57 Labs: Abnormal Lab Results - Last 24 Hours (Table) 11/11/22 11/11/22 11/12/22 Range/Units 16:24 21:44 07:57 RBC 2.48 L (4.30-5.90) m/uL Hgb 7.5 L (13.0-17.5) gm/dL Hct 24.1 L (39.0-53.0) % MCHC (31.0-37.0) g/dL Neutrophils # (Manual) 8.71 H (1.3-7.7) k/uL D-Dimer (<0.60) mg/L FEU Sodium 134 L (137-145) mmol/L Chloride 116 H (98-107) mmol/L Carbon Dioxide 14 L (22-30) mmol/L Calcium 7.1 L (8.4-10.2) mg/dL Procalcitonin (0.02-0.09) ng/mL Crossmatch See Detail 11/12/22 11/12/22 11/12/22 Range/Units 07:57 07:57 07:57 RBC 2.27 L (4.30-5.90) m/uL Hgb 6.8 L* (13.0-17.5) gm/dL Hct 22.0 L (39.0-53.0) % MCHC 30.8 L (31.0-37.0) g/dL Neutrophils # (Manual) (1.3-7.7) k/uL D-Dimer 4.95 H (<0.60) mg/L FEU Sodium (137-145) mmol/L Chloride (98-107) mmol/L Carbon Dioxide (22-30) mmol/L Calcium (8.4-10.2) mg/dL Procalcitonin 4.11 H (0.02-0.09) ng/mL Crossmatch Microbiology - Last 24 Hours (Table) 11/08/22 11:00 Stool Culture - Final Stool Assessment and Plan (1) Normocytic normochromic anemia Current Visit: Yes Status: Acute Priority: High Code(s): D64.9 - ANEMIA, UNSPECIFIED SNOMED Code(s): 70666472 (2) COVID-19 Current Visit: Yes Status: Acute Priority: High Code(s): U07.1 - COVID-19 SNOMED Code(s): 446085702 (3) Diarrhea Current Visit: Yes Status: Acute Priority: High Code(s): R19.7 - DIARRHEA, UNSPECIFIED SNOMED Code(s): 08167242 Plan: Normocytic, normochromic anemia. Hemolysis work up neg. Elevated ferritin, anemia of inflammation and Hx of gastric bypass contributing. Work up for par aproteinemia neg, K/L increased with normal ratio, most consistent with inflammation. Elevated MMA with low normal [id number] B12 deficiency, parenteral B12 started. Copper is noted to be 1/2 normal level. There is no in-house supplementation for copper. Told patient to have his significant other bring copper supplements to the hospital, new bottle, unopened, give to nursing to send out to pharmacy for verification. Data regarding copper supplementation reviewed with PharmD. with acute infection. Administration of zinc can displace copper absorption. It is reasonable to supplement at this time. Hgb Was 6.5 11/11/22 at 745. Patient did NOT receive a unit of blood. At 2130 hemoglobin was rechecked and it was 7.5. 11/12/22 at 745 hemoglobin was 6.8. Now patient is status post 1 unit of blood, Hgb at 1645 is 8.7. No additional transfusions today. If acute hemorrhage, uncontrolled bleeding, hemolysis is not suspected do not draw CBC in the same day as a blood transfusion. CBC in AM
[2022-11-13] MEDS: ACETAMINOPHEN TAB 325 MG TAB PO PRN (01:04)
[2022-11-13] MEDS: HEPARIN SODIUM,PORCINE/PF 5,000 UNIT/0.5 ML SYRINGE SQ SCH ×4 (01:04→23:54)
[2022-11-13] MEDS: LEVOTHYROXINE 50 MCG TAB PO SCH (06:25)
[2022-11-13] MEDS: SODIUM CHLORIDE 0.9% 1,000 ML IV SCH ×2 (06:28→18:00)
[2022-11-13] MEDS: AZITHROMYCIN 250 MG TAB PO SCH (09:14)
[2022-11-13] MEDS: CHOLESTYRAMINE (WITH SUGAR) 4 GM PACKET PO SCH ×2 (09:14→17:53)
[2022-11-13] MEDS: POTASSIUM CHLORIDE ER 20 MEQ TAB.ER PO SCH (09:14)
[2022-11-13] MEDS: ZINC SULFATE 220 MG CAP PO SCH (09:14)
[2022-11-13] MEDS: FUROSEMIDE 20 MG TAB PO SCH ×2 (09:14→21:01)
[2022-11-13] MEDS: DILTIAZEM ORAL 30 MG TAB PO SCH ×3 (09:14→21:01)
[2022-11-13] MEDS: FLUoxetine HCL 20 MG CAP PO SCH (09:14)
[2022-11-13] MEDS: FOLIC ACID 1 MG TAB PO SCH (09:15)
[2022-11-13] MEDS: THIAMINE 100 MG TAB PO SCH (09:15)
[2022-11-13] MEDS: MAGNESIUM OXIDE 400 MG TAB PO SCH ×3 (09:15→21:02)
[2022-11-13] MEDS: CHOLECALCIFEROL 25 MCG (1000 IU) TABLET PO SCH (09:15)
[2022-11-13] MEDS: CALCIUM CARBONATE 500 MG CHEWABLE PO SCH ×3 (09:15→21:02)
[2022-11-13] MEDS: CYANOCOBALAMIN 1,000 MCG/ML 1 ML VIAL IM SCH (09:15)
[2022-11-13] MEDS: PANTOPRAZOLE 40 MG/10 ML VIAL IVP SCH ×2 (09:16→21:02)
[2022-11-13 09:23] LABS: Calcium 7.1 mg/dL (8.4-10.2); Potassium 4.1 mmol/L (3.5-5.1)
[2022-11-13] MEDS: SODIUM FERRIC GLUCONAT-SUCROSE 125 MG in SODIUM CHLORIDE 0.9% 100 ML IVPB SCH (10:06)
--- NOTE | 2022-11-13 10:22 | P.PN ---
Subjective Progress Note Date: 11/12/22 Patient was seen for a follow-up. Patient is laying comfortably in the bed. Patient is coughing a lot. He continues to have diarrhea. He feels he is no better, continues to feel weakness. He complains of numbness of the left leg from knee down. Denies any numbness of the other 3 extremities. Denies any slurred speech, facial droop. No headache. Patient states that whenever he stands up, he has to go to the bathroom. Objective - Vital Signs Vital signs: Vital Signs Temp 98.5 F 11/13/22 04:00 Pulse 78 11/13/22 04:00 Resp 18 11/13/22 04:00 BP 105/56 11/13/22 04:00 Pulse Ox 94 L 11/13/22 04:00 FiO2 Intake & Output 11/12/22 11/13/22 11/13/22 18:59 06:59 18:59 Intake Total 518 237 240 Balance 518 237 240 Intake: Oral 240 237 240 Blood Product 278 Rc Pheresis As-3 Unit 278 [id number] Other: Voiding Method Urinal Urinal Incontinent Incontinent # Voids 3 1 # Bowel Movements 2 1 - Exam Patient's mentation is normal. Speech and language functions are normal. Cranial nerves are normal. Muscle strength testing reveals (right/left) deltoid 2/3+, biceps 4+/4+, triceps 4+5-/4+5-, credit historian 4+/4+, hip flexion 4/2, ankle dorsiflexion 5/5. Deep tendon reflexes are biceps trace to 1 bilaterally, absent at the brachioradialis, knees and ankles bilaterally. Plantars are flat. Sensory touch is decreased in the left leg from knee down. - Labs CBC & Chem 7: 11/12/22 16:57 11/13/22 07:00 Labs: Abnormal Lab Results - Last 24 Hours (Table) 11/11/22 11/12/22 11/12/22 Range/Units 16:24 07:57 16:57 RBC 3.00 L (4.30-5.90) m/uL Hgb 8.7 L D (13.0-17.5) gm/dL Hct 28.8 L (39.0-53.0) % MCHC 30.2 L (31.0-37.0) g/dL Sodium (137-145) mmol/L Chloride (98-107) mmol/L Carbon Dioxide (22-30) mmol/L Calcium (8.4-10.2) mg/dL Procalcitonin 4.11 H (0.02-0.09) ng/mL Crossmatch See Detail 11/13/22 Range/Units 07:00 RBC (4.30-5.90) m/uL Hgb (13.0-17.5) gm/dL Hct (39.0-53.0) % MCHC (31.0-37.0) g/dL Sodium 134 L (137-145) mmol/L Chloride 117 H (98-107) mmol/L Carbon Dioxide 14 L (22-30) mmol/L Calcium 7.1 L (8.4-10.2) mg/dL Procalcitonin (0.02-0.09) ng/mL Crossmatch Microbiology - Last 24 Hours (Table) 11/08/22 11:00 Stool Culture - Final Stool Assessment and Plan Assessment: * Acute COVID infection with severe diarrhea for around 7-10 days. * Generalized weakness, slightly asymmetric. Etiology possibly multifactorial, probably related to electrolyte imbalance, with hypokalemia, hyponatremia, hypocalcemia, hypomagnesemia. Guillain-Powell syndrome is in the differential. Patient's reflexes appears to be slightly diminished as compared to the examination 2 days ago. Still need to keep a close watch. * Vitamin B12 deficiency * Copper deficiency * Paroxysmal atrial fibrillation * Alcoholism * Anemia Plan: * Patient's muscle strength seems to have improved slightly as compared to examination from 11/10/2022. However continues to be significantly weak. * MRI of the cervical spine revealed significantly limited study secondary to motion. Within the limitation, there is at least moderate spinal canal stenosis at C5 6. Multilevel neural foraminal stenosis. Grade 1 anterolisthesis of C3 on C4. Degeneration changes worse at C6-C7 with the joint place edema. We will consult orthopedic surgery. * Patient has evidence of vitamin B12 deficiency with B12 226 with low B12 and elevated methylmalonic acid 0.51. Patient started on vitamin B12 1000 g IM daily. * Hematology has seen the patient, ordered blood testing. * CPK < 20, vitamin B6 level pending. B1 69, TSH normal. Folate 21.2. Serum protein electrophoresis and immunofixation electrophoresis showed no paraproteinemia * For copper deficiency, would defer to hematology. * Patient also had an episode of paroxysmal atrial fibrillation. Cardiology has seen the patient, not recommending anticoagulation. I would start aspirin 81 mg daily. Discussed with primary team, and cleared for aspirin. * 2-D echo revealed left ventricular hypertrophy with normal left-ventricular systolic function with EF 55%. No obvious regional wall motion abnormalities. Left atrial size is normal. Mild to moderate mitral regurgitation. * PT, OT, evaluate gait. * DVT prophylaxis: Patient on heparin subcu.
--- NOTE | 2022-11-13 11:57 | P.PN ---
Subjective Progress Note Date: 11/13/22 Principal diagnosis: Anemia This is a pleasant 62-year-old male who presented to the emergency room on 11/06/2022 with complaints of diarrhea. States he was having up to 7-8 loose stools within a 15 minute period. Patient was admitted and found to be positive for COVID-19 infection. He denies any new recent medications, has not had a colonoscopy in the past and he is scheduled in January of next year for screening colonoscopy. He's had a cold GERD which has been normal. His past medical history includes thyroid disease as well as heavy alcohol consumption. He is also had a previous history of gastric bypass surgery. He states he quit drinking 6 months ago he was striking a fifth a day for at least 4 years duration. On admission he was noted to have a hemoglobin of 8.7. During his hospitalization his hemoglobin had continued to drop and yesterday he went on to 6.5 requiring 1 unit of blood transfusion. Repeat today of 6.8 again requiring blood transfusion. He denies any black stool, no blood in his stool denies any abdominal pain, nausea or vomiting. Denies any history of GI bleed, no history of known liver disease. Hematology was consulted as patient has a normochromic normocytic anemia which they believe is all related to underlying virus is well as history of his comorbidities including alcoholism and likely damage to the liver causing bone marrow suppression. States diarrhea is improving and is starting to get a little more formed. He is having less episodes a day. He was started on Questran during his hospitalization. 11/13/2022. Patient seen and examined today as a follow-up. He continues to deny any abdominal pain, nausea vomiting. Continues to deny any black stool or blood in the stool. Yesterday he was given 1 unit of blood today's repeat hemoglobin 8.7. Diarrhea continues to improve and is more formed. Objective - Vital Signs Vital signs: Vital Signs Temp 98.5 F 11/13/22 04:00 Pulse 78 11/13/22 04:00 Resp 18 11/13/22 04:00 BP 105/56 11/13/22 04:00 Pulse Ox 94 L 11/13/22 04:00 FiO2 Intake & Output 11/12/22 11/13/22 11/13/22 18:59 06:59 18:59 Intake Total 518 237 Balance 518 237 Intake: Oral 240 237 Blood Product 278 Rc Pheresis As-3 Unit 278 [id number] Other: Voiding Method Urinal Urinal Incontinent Incontinent # Voids 3 1 # Bowel Movements 2 1 - Exam General appearance: The patient is alert, oriented, appears in no acute distress. HET: Head is normocephalic and atraumatic. Conjunctiva pink. Sclera anicteric. Neck: Supple without lymphadenopathy. Abdomen: Soft, nontender, nondistended with bowel sounds. No guarding or rigidity. Extremities: Normal skin color and turgor. No pedal edema Skin: No rashes, no jaundice Neurological: No focal deficits. Alert and oriented. - Labs CBC & Chem 7: 11/12/22 16:57 11/13/22 07:00 Labs: Abnormal Lab Results - Last 24 Hours (Table) 11/11/22 11/12/22 11/12/22 Range/Units 16:24 07:57 07:57 RBC 2.27 L (4.30-5.90) m/uL Hgb 6.8 L* (13.0-17.5) gm/dL Hct 22.0 L (39.0-53.0) % MCHC 30.8 L (31.0-37.0) g/dL D-Dimer (<0.60) mg/L FEU Sodium 134 L (137-145) mmol/L Chloride 116 H (98-107) mmol/L Carbon Dioxide 14 L (22-30) mmol/L Calcium 7.1 L (8.4-10.2) mg/dL Procalcitonin (0.02-0.09) ng/mL Crossmatch See Detail 11/12/22 11/12/22 11/12/22 Range/Units 07:57 07:57 16:57 RBC 3.00 L (4.30-5.90) m/uL Hgb 8.7 L D (13.0-17.5) gm/dL Hct 28.8 L (39.0-53.0) % MCHC 30.2 L (31.0-37.0) g/dL D-Dimer 4.95 H (<0.60) mg/L FEU Sodium (137-145) mmol/L Chloride (98-107) mmol/L Carbon Dioxide (22-30) mmol/L Calcium (8.4-10.2) mg/dL Procalcitonin 4.11 H (0.02-0.09) ng/mL Crossmatch Microbiology - Last 24 Hours (Table) 11/08/22 11:00 Stool Culture - Final Stool Assessment and Plan (1) Normocytic normochromic anemia Narrative/Plan: 62-year-old male who presented to the emergency department with diarrhea and tested positive for COVID-19 infection presented with anemia. Hemoglobin continually dropped throughout his hospital stay requiring now 2 units of blood transfusion. Hematology has been following a believes likely related to un derlying virus as well as possible component of liver disease from alcoholism causing some bone marrow suppression. Patient does not have any signs or symptoms of GI bleed. He denies any dark stool lack stool or blood in his stool. He has no nausea or vomiting. He is not on any anticoagulation. He has no prior history of EGD or colonoscopy. He is scheduled for screening colonoscopy in January of this year. Would recommend outpatient EGD colonoscopy once patient is feeling better. Continue with recommendations from hematology. No plans on endoscopic evaluation. Current Visit: Yes Status: Acute Priority: High Code(s): D64.9 - ANEMIA, UNSPECIFIED SNOMED Code(s): 16789077 (2) COVID-19 Current Visit: Yes Status: Acute Priority: High Code(s): U07.1 - COVID-19 SNOMED Code(s): 720312611 (3) Diarrhea Current Visit: Yes Status: Acute Priority: High Code(s): R19.7 - DIARRHEA, UNSPECIFIED SNOMED Code(s): 56376951 Plan: 1. Continue symptomatic and supportive care 2. Protonix 40 mg daily GI prophylaxis 3. Continue with Questran 4. Continue with recommendations from hematology. Agree with hematology likely not related to a GI bleed, normocytic normochromic anemia 5. No plans on endoscopic evaluation at this time. We have scheduled him for outpatient EGD and colonoscopy on 12/08/[address] Lundberg. Patient agreeable with plan. Thank you for allowing us to participate in the care of the patient, the GI service will sign off, gastroenterology will not be available at the hospital this weekend and through next week. If further evaluation by gastroenterology is required the patient will need transfer as per the primary team's discretion. Dr. Radha Lundberg I agree with the dictator's note, documented as a scribe by Sarah Oconnor.
--- NOTE | 2022-11-13 12:56 | P.CNOR ---
History of Present Illness - [facility] Consult date: 11/13/22 Requesting physician: Paul Blankenship Consult reason: other (All 4 extremity weakness, abnormal cervical spine MRI) History of present illness: Patient is a 62-year-old male who presented to the emergency department at [facility] 11/06/2022 chief complaint of diarrhea. Orthopedics has been consulted based on results from cervical spine MRI and weakness in the extremities. Patient was seen at bedside this morning lying semirecumbent position. Patient says he began having weakness in his upper extremities about 2 months ago when he was at home. Patient says he began sleeping in a recliner and he noticed he had increased weakness in the upper extremities after sleeping in recliner for awhile. He denies having any falls/trauma's. Patient says he normally does ambulate with a walker. Patient denies any previous orthopedic spine surgery. Patient says he has had right hip surgery after fracture in 2019. Patient does mention he is having some pain in the middle of his back as well as his left knee. Patient says his main issue is weakness in the right upper extremity. Patient says he is also having some weakness in the left upper extremity, however, patient says this has been resolving over the past few weeks. Patient denies any numbness/tingling in his upper extremities. Patient denies any loss of bowel/bladder control. Patient denies saddle anesthesia/ge nital numbness/tingling. Cervical spine MRI performed on 11/11/2022 does show spinal canal stenosis at C5-C6 and neural foraminal stenosis several levels. There is spondylolisthesis C3-C4. Patient denies chest pain, fever, shortness of breath, nausea, vomiting, loss of bowel/bladder control. Past Medical History Past Medical History: Sleep Apnea/CPAP/BIPAP, Thyroid Disorder Additional Past Medical History / Comment(s): thyroid issue. pt reports not using CPAP/BIPAP at HS History of Any Multi-Drug Resistant Organisms: None Reported Additional Past Surgical History / Comment(s): gastric bypass. Umbilical hernia, 6x hernia surgeries, fell & broke hip in 2019 - pt was in [facility] at the time and reports getting a pin in hip. Past Anesthesia/Blood Transfusion Reactions: No Reported Reaction Past Psychological History: Depression Smoking Status: Never smoker Past Alcohol Use History: Occasional Additional Past Alcohol Use History / Comment(s): Patient reports moving to [place] in April 2022 and cutting back on alcohol use. Prior to moving to [facility], pt reports drinking one 5th of whiskey a day, but only drinks occasionally now. Pt reports to RN that he drank one 5th of whiskey last Wednesday. Past Drug Use History: None Reported Medications and Allergies Home Medications Medication Instructions Recorded Confirmed Type Calcium Carbonate [Calcium] 600 mg PO DAILY 09/09/22 11/06/22 History Ergocalciferol (Vitamin D2) 1,250 mcg PO MOWE 09/09/22 11/06/22 History [Drisdol (50,000 Iu)] FLUoxetine HCL [PROzac] 20 mg PO DAILY 09/09/22 11/06/22 History Levothyroxine Sodium [Synthroid] 50 mcg PO DAILY 09/09/22 11/06/22 History Magnesium Oxide [Magnesium] 500 mg PO DAILY 09/09/22 11/06/22 History Diclofenac Sodium Gel [Voltaren 2 gm TOPICAL QID PRN 11/06/22 11/06/22 History Gel] Folic Acid 0.4 mg PO DAILY 11/06/22 11/06/22 History Ibuprofen [Motrin] 600 mg PO TID PRN 11/06/22 11/06/22 History Thiamine [Vitamin B-1] 100 mg PO DAILY 11/06/22 11/06/22 History Allergies Allergy/AdvReac Type Severity Reaction Status Date / Time No Known Allergies Allergy Verified 11/06/22 14:38 Physical Examination Osteopathic Statement: *. No significant issues noted on an osteopathic structural exam other than those noted in the History and Physical/Consult. Inspection: Negative for any open fractures, significant ecchymosis/erythema/ulcers. joint effusion left knee Sensation: Sensation is equal, symmetric, bilaterally intact throughout the upper and lower extremities. Palpation: TTP diffusely throughout the cervical spine. Patient does have some tenderness to palpation over the bilateral SI joints. Moderate TTP over medial and lateral joint lines left knee. NTTP throughout rest of exam Range of motion: Patient has full range of motion in right lower extremity and hip flexion/extension, knee flexion/extension and ankle dorsi/plantar flexion. Patient does have limited motion in left lower extremity in knee flexion due to swelling/pain. Patient does have full range motion left lower extremity and left ankle dorsi/plantar flexion and left hip in action/extension. Patient does have significant limited range of motion in right upper extremity. Patient is unable to actively move right upper extremity and shoulder elevation/abduction/external/internal rotation. Patient unable to actively flex/extend right elbow due to weakness. On passive exam patient does have full flexion/extension of right elbow; there is limited range of motion in right cullen ulder forward elevation due to pain. Left upper extremity full range of motion in elbow flexion test extension and left wrist flexion/extension. There is some limited active range of motion of the left shoulder and forward elevation, abduction, internal/external rotation. Motor: Right lower extremity 5/5 in all major motor groups. Left lower extremity 4+/5 in resisted ankle dorsi/plantar flexion. 3/5 in resisted left knee flexion/extension. 4+/5 in resisted left hip flexion/extension. Pharmacy Informaticist strength 4+/5 bilaterally. Right shoulder and elbow exam 3-/5. Left upper extremity 4/5 in all major motor groups. Neurovascular status: Radial pulses intact, 2+ bilaterally. Cap refill under 3 seconds in digits upper extremities. Special tests: Negative Homans bilaterally. Negative clonus bilaterally. Positive Braden bilaterally Results - Labs Labs: Abnormal Lab Results - Last 24 Hours (Table) 11/11/22 11/12/22 11/13/22 Range/Units 16:24 16:57 07:00 RBC 3.00 L (4.30-5.90) m/uL Hgb 8.7 L D (13.0-17.5) gm/dL Hct 28.8 L (39.0-53.0) % MCHC 30.2 L (31.0-37.0) g/dL Sodium 134 L (137-145) mmol/L Chloride 117 H (98-107) mmol/L Carbon Dioxide 14 L (22-30) mmol/L Calcium 7.1 L (8.4-10.2) mg/dL Crossmatch See Detail Microbiology - Last 24 Hours (Table) 11/08/22 11:00 Stool Culture - Final Stool H & H 11/06/22 11/08/22 11/08/22 Range/Units 12:14 03:36 10:15 Hgb 8.7 L 7.7 L 7.3 L (13.0-17.5) gm/dL Hct 27.2 L 24.3 L 23.6 L (39.0-53.0) % 11/10/22 11/11/22 11/11/22 Range/Units 13:19 07:52 21:44 Hgb 7.4 L 6.5 L* 7.5 L (13.0-17.5) gm/dL Hct 24.3 L 21.3 L 24.1 L (39.0-53.0) % 11/12/22 11/12/22 Range/Units 07:57 16:57 Hgb 6.8 L* 8.7 L D (13.0-17.5) gm/dL Hct 22.0 L 28.8 L (39.0-53.0) % Coagulation 11/06/22 11/12/22 Range/Units 13:20 10:23 INR 1.2 H 1.1 (<1.2) Result Diagrams: 11/12/22 16:57 11/13/22 07:00 - Diagnostic results Cervical MRI with/without contrast: report reviewed, image reviewed ( spinal canal stenosis at C5-C6 and neural foraminal stenosis several levels. There is spondylolisthesis C3-C4.) Assessment and Plan Assessment: 1. Bilateral upper extremity weakness 2. Left knee pain Plan: 1. Bilateral upper extremity weakness - cervical spine MRI performed 11/11/2022 does demonstrate spinal canal stenosis at C5-C6 and neural foraminal stenosis at several levels. There is spondylolisthesis C3-C4. Patient does demonstrate weakness bilaterally in the upper extremities on exam. Repeat MRI of cervical spine has been ordered for further evaluation as well as thoracic and lumbar spine MRIs and CT of cervical spine. Decadron 2 mg every 6 hours has been ordered. ESR and CRP have been ordered for further evaluation. Pain medication as needed. Hard c-collar on when up and about. We will discuss treatment options and continue to follow patient during stay in hospital. 2. Appreciate medical management 3. Pain management - Tylenol 4. DVT prophylaxis - heparin 5. GI prophylaxis - Protonix; Tums 6. PT/OT - weightbearing as tolerated with walker. Hard c-collar on when up and about 7. Appreciate consult Time with Patient: Less than 30
--- NOTE | 2022-11-13 16:01 | P.PN ---
Progress Note - Text Progress Note Date: 11/13/22 Came to see patient. Patient down for MRI and CT scans. Dr. King Greene Will resume neurology service in the morning. Paul Blankenship MD
--- NOTE | 2022-11-13 17:10 | MR ---
EXAMINATION TYPE: MR lumbar spine wo con DATE OF EXAM: 11/13/2022 4:56 PM COMPARISON: 11/06/2022 CT. CLINICAL INDICATION:Male, 62 years old with history of osteomyelitis discitis TECHNIQUE: Multi planar, multi sequence imaging was performed utilizing: T1-weighted, T2-weighted, a nd turbo inversion recovery imaging of the lumbar spine. IV Contrast: None. FINDINGS: Alignment: The lumbar vertebral bodies have preserved heights and alignment. Cord: The conus medullaris and the distal spinal cord appear unremarkable with regards to their signa l intensity and morphology. Bones/Discs: There is increased inversion recovery signal edema within the L3 and L4 vertebral bodies adjoining endplates. High T2 cyst and inversion recovery signal are seen within the disc space. Ther e is areas of loss of cortex of the adjoining endplates. Best appreciated on series 301 image 13. Additional scattered Modic endplate changes are seen throughout the spine. L1-L2: No evidence of significant spinal canal stenosis or neural foraminal stenosis. L2-L3: No evidence of significant spinal canal stenosis. Facet joint arthropathy at mild left and mod erate right neural foraminal stenosis. L3-L4: Osteomyelitis discitis at this level with fluid tracking into the epidural space is appreciate d on series 301 image 11. Facet joint arthropathy at this level with moderate to severe bilateral carolina ral foraminal stenosis. L4-L5: No evidence of significant spinal canal stenosis. Facet joint arthropathy at [id number] left and mild right neural foraminal stenosis. L5-S1: No evidence of significant spinal canal stenosis. Facet joint arthropathy at [id number] left and mild right neural foraminal stenosis. Other findings: Atrophy changes of the musculature of the back. IMPRESSION: 1. Osteomyelitis discitis of the L3-L4 disc space. Fluid does track from the disc space down into th e epidural space. No significant spinal canal stenosis. 2. Multilevel disc degeneration as described above. A Red level critical message alert has been initiated for Shahbaz Obregon MD~[id number] via the [email or web address] Critical Results System on 11/13/2022 5:05 PM. This message alert has been sent to Shahbaz Obregon MD~ES 774 via the preferences provided by the clinician for the receipt of Radiology Critical Findings. [facility] ID [id number].
[2022-11-13] MEDS: DEXAMETHASONE SOD PHOSPHATE 4 MG/ML 1 ML VIAL IVP SCH ×2 (17:53→23:55)
--- NOTE | 2022-11-13 19:33 | P.PN ---
Subjective Progress Note Date: 11/13/22 Paroxysmal atrial fibrillation Intractable nausea/vomiting/diarrhea Profound hypokalemia Acute renal injury COVID-19 infection 62-year-old male in the emergency department for diarrhea. She notes diarrhea starting and he asked progressively gotten worse. He reports he stood up from a chair and had an episode of diarrhea, admits he still maintains bowel function. He has not tried anything for his symptoms. He denies nausea, vomiting, abdominal pain, palpitations, fevers. Denies recent travel or recent antibiotic use. He is scheduled to have his first colonoscopy in january of 2023. Patient had an initial lab work is remarkable for WBC is 11.4, hemoglobin 8.7, INR 1.2, sodium 133, potassium 2.6 lactic acid 2.9, calcium 6.3, magnesium 0.8, lipase 60, COVID positive. I interpreted the following; CT abdomen without contrast remarkable for fluid filled colon without focal wall thickening or surrounding inflammatory changes. Patient was given 2 L fluids, potassium, magnesium and calcium during his course of the ED. 11/08/2022 Patient is seen and evaluated on selective care unit; he went into atrial fibrillation with rapid ventricular response he was transferred to the third floor/selective minute. The patient did not have any symptoms of heart racing or fluttering and no dizziness or lightheadedness and no presyncope or syncope and no symptoms of chest pain or chest discomfort or shortness of breath. No prior history of atrial fibrillation. No history of coronary artery disease or congestive heart failure or cardiac arrhythmia and the patient never seen a set off blocker in the past. Beside that no history of diabetes or hypertension or dyslipidemia. The patient was started initially on Cardizem drip but his pressure did go down and for that reason he was switched into amiodarone IV and subsequently converted to normal sinus mechanism and since then he has been maintaining normal sinus mechanism. Further investigation was performed including CBC and that showed a hemoglobin of 7.7. The patient has no history of bleeding. B eside that he underwent a computed tomography scan of the abdomen and pelvis because of the abdominal discomfort that showed no acute abnormalities. The troponin came in to be slightly elevated likely secondary to tachycardia. The EKG showed sinus rhythm now with no significant ST or T-wave abnormalities. Blood work reveals mild elevation of troponin; Patient has been evaluated by cardiology and recommended to continue with IV fluids, replace electrolytes; IV amiodarone is to be discontinued patient is transition to oral dose daily 11/09/2022 Patient is seen and evaluated in follow-up this morning and continues to feel generalized weakness and continues with loose stools. Per nursing staff when assisting to clean the patient up patient was significantly weak on the right. Patient denied any headache, dizziness, or lightheadedness. Will obtain a CT of the brain and also consult neurology. Recommend PT/OT therapy evaluation for significant weakness. C. diff testing was negative on the stool and will add Imodium and encourage oral intake and advance as tolerated. Patient is ma intaining on vitamins and zinc supplements along with subcutaneous heparin with anxiety following closely. Patient denies chest pain or shortness of breath. Afebrile. Recommend a.m. labs as well. 11/10/2022 Patient is seen in follow-up today with multiple medical consultations including cardiology, hematology, infectious disease, and now neurology following. Patient with significant weakness in all upper and lower extremities with neurology undergoing workup recommending aspirin as patient is not on any anticoagulation at this time. Cardiology is following and patient was transitioned back to IV Cardizem although being changed to oral with close monitoring. Magnesium found to be significantly low at 1.2 and will replace per protocol and recommend repeat labs. Hemoglobin is mildly low at 7.4 and undergoing anemia workup with hematology following. Patient with Covid and extreme weakness will need ECF and discharge planning in process. Recommend close monitoring of labs and replace electrolytes per protocol. Patient was started on Imodium as C. diff testing 2 was negative. Patient continues to have loose stools although somewhat improved. Encouraged oral intake and incr eased activity as tolerated. Recommend PT/OT therapy daily. Patient denies chest pain or shortness of breath. Patient is 97% on room air. Patient will continue on vitamin and zinc supplements with anxiety following closely. Recommend gentle IV hydration. 11/11/2022 Patient is seen and evaluated in follow-up with multiple medical consultations following including infectious disease and neurology. Oncology following undergoing anemia workup. Hemoglobin was found to be 6.5 today and will order 1 unit of PRBC and recommend close monitoring. No active bleeding noted. Patient was started on baby aspirin per neurology and scheduled to undergo MRI of the cervical spine today. Patient continues with significant weakness and will need rehab upon discharge. Patient is maintained on vitamin and zinc supplements and was also being followed by cardiology. Adjustments to medications being done and patient is on oral Cardizem. Will follow-up with repeat labs. Patient is afebrile and denies shortness of breath. Patient clinically appears to be improving. Per nursing staff patient is incontinent of stool in continues to be somewhat loose although less frequent. C. diff testing was negative and stool cultures are negative. Encouraged oral intake. Will discuss with case management about discharge planning to ECF as he will require a Covid hub. 11/12/2022 Patient is seen and evaluated in follow-up today with multiple medical consultations following including infectious disease, cardiology, neurology. Patient's hemoglobin is low again at 6.8 and will give 1 unit. Recommend holding aspirin. Patient did have an elevated d-dimer and CTA was ordered. GI was also consulted for anemia. Patient continues to have incontinence of stool and loose stools and is maintained on Questran and will be given Imodium as needed. Patient continues with generalized weakness and fatigue and also having some lower extremity pain and swelling and have ordered Dopplers of bilateral lo wer extremities as well. Patient with Covid vitamin and zinc supplements and anticoagulation with subcu heparin. Hematology also following for anemia. Recommend repeat CBC this evening and will transfuse another unit as well. Cardiology following and adjustments to medications being made and patient also being started on low-dose diuretics. Patient is having low-grade temps of 99.3- 99.6 and patient continues to be 95% or above on room air. Blood pressure on the lower side although stable. Stool cultures and C. diff testing have been negative. Patient started on antibiotics per ID recommendations in the form of Zithromax and ceftriaxone. Reviewed iron studies which are low and will give IV iron as well. Electrolytes continue to be low and will replace per protocol. Patient will need ECF once stabilized and discharged 11/13/2022 Patient is seen today with multiple medical consultations following and undergoing neurological workup and having bilateral upper and lower extremity weakness. Neurology recommends orthopedic consultation which is currently pending. Patient did have some movement in his diarrhea and reports becoming more formed and less frequent. Patient continues to be incontinent of this. Patient being started on antibiotics with anxiety following an also continues to have anemia. GI recommending continuing with hematology workup. Multiple images including MRIs and pending at time. Patient with significant weakness will be going to rehab when stable. A.m. labs are pending. Review of systems: Constitutional: reports of fatigue, no fever, or chills Cardiovascular: No reports of chest pain or palpitations Respiratory: No reports of shortness of breath or cough GI: No reports of nausea, vomiting, reports continued diarrhea, decreased appetite : No reports of dysuria or retention Neurovascular: reports of generalized weakness All medications have been reviewed Physical exam: Gen: This is a 62-year-old male awake, alert and oriented 3, well-developed, well-nourished, ill-appearing. Pale HEENT: Head is atraumatic, normocephalic. Pupils equal, round. Sclerae is anicteric. NECK: Supple. No JVD. No lymphadenopathy. No thyromegaly. LUNGS: Breath sounds diminished bilaterally with some scattered rhonchi noted. No intercostal retractions. HEART: S1, S2 are muffled, irregular ABDOMEN: Soft. Bowel sounds are present. No masses. No tenderness. EXTREMITIES: No pedal edema. No calf tenderness. Lower extremity edema NEUROLOGICAL: Patient is awake, alert and oriented x3. Cranial nerves 2 through 12 are grossly intact. Diffusely weak Assessment: -Intractable nausea/vomiting/diarrhea; likely related to COVID-19 infection -Profound hypokalemia; improved after replacement -Severe hypomagnesemia likely due to diarrhea, replacing -Normocytic normochromic anemia possibly secondary to underlying virus and possible component of liver disease from alcoholism -Elevated d-dimer with no evidence of PE on CTA -Bilateral lower extremity pain and swelling, right negative for DVT, left showing a nonoccluding thrombus seen within the posterior Branch and streaky subcutaneous edema noted within the legs -Right side weakness, ruled out TIA versus CVA -Acute renal injury; likely prerenal secondary to dehydration with nausea/vomi ting/diarrhea, improving -Lactic acidosis; likely related to intractable vomiting and diarrhea/dehyd ration; improved -COVID-19 infection with groundglass opacities seen in part of the lung with CT of the abdomen -Hypothyroidism -Gait dysfunction with generalized weakness -Depression history -DVT prophylaxis; SCDs/subcu heparin -No code Plan: Recommend continue current medications and multiple medical consultations following. Orthopedics has now been consulted for bilateral upper and lower ext remity weakness and repeat imaging is ordered and pending. Infectious disease is following patient is maintained on vitamins and zinc supplements along with subcutaneous heparin for COVID-19. Patient is not having any respiratory distress and is above 95% on room air, being started on Zithromax and ceftriaxone with concerns for infectious source Patient is reporting some improvement in frequency of diarrhea and consistency although continues to have loose stools and incontinence. Neurology following and undergoing extensive workup recommending orthopedic consultation. Patient's hemoglobin continues to be low and undergoing anemia workup. Patient was evaluated by GI with no plans for surgical endoscopic intervention at this time recommend continuing with hematology anemia workup. Will transfuse if less than 7. Will repeat a.m. labs and repeat hemoglobin last night was about 8 Overall generalized weakness, recommend PT/OT therapy daily, case management also following working on discharge planning and possible ECF and will need a Covid hub Recommend to replace electrolytes per protocol and will repeat a.m. labs Due to multiple complex medical issues, prognosis is extremely guarded The impression and plan of care has been dictated by Priscilla Steven, Nurse Practitioner as directed. Dr. Mark MD I have performed a history and examination and MDM of this patient, discussed the same with the dictator, and agree with the dictator's assessment and plan as written ,documented as a scribe. Based on total visit time, I have performed more than 50% of the visit. Objective - Vital Signs Vital signs: Vital Signs Temp 98.6 F 11/13/22 15:22 Pulse 78 11/13/22 15:22 Resp 16 11/13/22 15:22 BP 118/80 11/13/22 15:22 Pulse Ox 98 11/13/22 15:22 FiO2 Intake & Output 11/13/22 11/13/22 11/14/22 06:59 18:59 06:59 Intake Total 237 590 Output Total 125 Balance 237 465 Intake: Intake, IV Titration 150 Amount Sodium Ferric Gluconat- 100 Sucrose 125 mg In Sodium Chloride 0.9% 100 ml @ 100 mls/hr IVPB DAILY [place] Rx#:[id number] cefTRIAXone 1 gm In 50 Sodium Chloride 0.9% 50 ml @ 100 mls/hr IVPB Q24HR [place] Rx#:[id number] Oral 237 440 Output: Urine 125 Other: Voiding Method Urinal Urinal Incontinent Incontinent # Voids 1 1 # Bowel Movements 1 - Labs CBC & Chem 7: 11/12/22 16:57 11/13/22 07:00 Labs: Abnormal Lab Results - Last 24 Hours (Table) 11/11/22 11/11/22 11/13/22 Range/Units 07:52 16:24 07:00 ESR (0-15) mm/hr Sodium 134 L (137-145) mmol/L Chloride 117 H (98-107) mmol/L Carbon Dioxide 14 L (22-30) mmol/L Calcium 7.1 L (8.4-10.2) mg/dL C-Reactive Protein (<1.0) mg/dL Vitamin B6 2 L (5-50) ug/L Crossmatch See Detail 11/13/22 11/13/22 Range/Units 07:00 07:00 ESR 20 H (0-15) mm/hr Sodium (137-145) mmol/L Chloride (98-107) mmol/L Carbon Dioxide (22-30) mmol/L Calcium (8.4-10.2) mg/dL C-Reactive Protein 7.2 H (<1.0) mg/dL Vitamin B6 (5-50) ug/L Crossmatch
--- NOTE | 2022-11-13 19:49 | P.PN ---
Subjective Progress Note Date: 11/13/22 Principal diagnosis: Covid 19 Patient is a 62-year-old male who is unvaccinated for COVID-19 patient was brought into the ER for evaluation of weakness no energy mention the patient was not able to get stand up and go to the bathroom patient has been dealing with the diarrhea off and on for couple of weeks, patient was noticed to have a positive covid test, however the patient was not hypoxic and CT abdominal pelvis with few bibasilar patchy groundglass opacity representing atelectasis and no evidence of colitis. On today's evaluation that is 11/13/2022, the patient is afebrile, the patient is breathing comfortably on room air and no need for supplemental oxygen . The patient denies chest pain or shortness of breath, the patient continued to have a cough but no worsening and occasional sputum no nausea no vomiting no abdominal pain, the patient diarrhea has slowed down Objective - Vital Signs Vital signs: Vital Signs Temp 98.3 F 11/13/22 10:10 Pulse 85 11/13/22 10:10 Resp 18 11/13/22 10:10 BP 101/66 11/13/22 10:10 Pulse Ox 95 11/13/22 10:10 FiO2 Intake & Output 11/12/22 11/13/22 11/13/22 18:59 06:59 18:59 Intake Total 518 237 240 Balance 518 237 240 Intake: Oral 240 237 240 Blood Product 278 Rc Pheresis As-3 Unit 278 [id number] Other: Voiding Method Urinal Urinal Urinal Incontinent Incontinent Incontinent # Voids 3 1 # Bowel Movements 2 1 - Exam GENERAL DESCRIPTION: An elderly male lying in bed in no distress RESPIRATORY SYSTEM: Unlabored breathing , decreased breath sounds at bases HEART: S1 S2 regular rate and rhythm , ABDOMEN: Soft , no tenderness EXTREMITIES: No edema feet - Labs CBC & Chem 7: 11/12/22 16:57 11/13/22 07:00 Labs: Abnormal Lab Results - Last 24 Hours (Table) 11/11/22 11/12/22 11/13/22 Range/Units 16:24 16:57 07:00 RBC 3.00 L (4.30-5.90) m/uL Hgb 8.7 L D (13.0-17.5) gm/dL Hct 28.8 L (39.0-53.0) % MCHC 30.2 L (31.0-37.0) g/dL Sodium 134 L (137-145) mmol/L Chloride 117 H (98-107) mmol/L Carbon Dioxide 14 L (22-30) mmol/L Calcium 7.1 L (8.4-10.2) mg/dL Crossmatch See Detail Microbiology - Last 24 Hours (Table) 11/08/22 11:00 Stool Culture - Final Stool Assessment and Plan (1) COVID-19 Current Visit: Yes Status: Acute Priority: High Code(s): U07.1 - COVID-19 SNOMED Code(s): 658824539 (2) Diarrhea Current Visit: Yes Status: Acute Priority: High Code(s): R19.7 - DIARRHEA, UNSPECIFIED SNOMED Code(s): 17861719 Plan: 1patient present to hospital generalized weakness which is likely mu ltifactorial could be related to his diarrhea has not patient did have significant diarrhea and evidence of prerenal status was low potassium, stool for C. diff is negative stool cultures has been obtained and currently pending, patient to continue Questran and advised to increase his probiotic and yogurt intake 2patient with a low-grade fever, the patient did have elevated pro calcitonin, CT angiogram of the chest was negative for PE however did shows right lower lobe infiltrate suspicious for pneumonia, patient to continue with Rocephin and Zithromax sputum cultures have been requested however not collected yet and monitor clinical course closely Time with Patient: Less than 30
--- NOTE | 2022-11-13 20:15 | MR ---
EXAMINATION TYPE: MR cspine/tspine wo/w con DATE OF EXAM: 11/13/2022 INDICATION: Patient age:Male; 62 years old; Reason for study: Osteomyelitis discitis. COMPARISON: CT cervical spine 11/13/2022.. TECHNIQUE: Multi planar, multi sequence imaging was performed utilizing: T1-weighted, T2-weighted, an d turbo inversion recovery imaging of the cervical spine. IV Contrast: 10 cc Gadavist FINDINGS: Limited evaluation Alignment: The cervical vertebral bodies have preserved heights. Alignment is within normal limits gi sean patient positioning. Bones: Version recovery edema is seen within the adjoining endplates of C6 and C7. There is edema in the anterior prevertebral space. Initial degeneration throughout the spine. Postcontrast enhancement of these adjoining endplates favored to be on degenerative basis. Cord: The spinal cord is unremarkable with regards to their signal intensity and morphology. Discs: Disc space loss at C6-C7. Scattered disc desiccation is present. C2-C3: No significant disc pathology. The spinal canal is patent. No neural foraminal stenosis. C3-C4: A disc osteophyte complex is present with mild spinal canal stenosis. Bilateral facet and unc overtebral joint arthropathy are present with mild bilateral neural foraminal stenosis. C4-C5: A disc osteophyte complex is present with mild spinal canal stenosis. Bilateral facet and unc overtebral joint arthropathy are present with mild bilateral neural foraminal stenosis. C5-C6: A disc osteophyte complex is present with moderate spinal canal stenosis. Bilateral facet and uncovertebral joint arthropathy are present with mild bilateral neural foraminal stenosis. C6-C7: No significant disc pathology. The spinal canal is patent. Bilateral facet and uncovertebral joint arthropathy are present with mild bilateral neural foraminal stenosis. C7-T1: A disc osteophyte complex is present which minimally narrows the ventral subarachnoid space. Bilateral facet and uncovertebral joint arthropathy are present with mild bilateral neural foraminal stenosis. Thoracic spine: No evidence of significant spinal canal stenosis. Neural foramen are patent. There is significant motion which limits evaluation. No abnormal postcontrast enhancement. IMPRESSION: 1. Significant motion artifact limits evaluation within the cervical spine. There is edema of the ad joining C6 and C7 endplates and along the prevertebral space favored to be under degeneration bases a nd less likely early osteomyelitis discitis. 2. Limited exam no gross evidence for significant spinal canal stenosis no neural foraminal stenosis .
--- NOTE | 2022-11-13 20:20 | CT ---
EXAMINATION TYPE: CT cervical spine w con CT DLP: 555.50 mGycm, Automated exposure control for dose reduction was used. DATE OF EXAM: 11/13/2022 6:00 PM COMPARISON: MRI same day.. CLINICAL INDICATION:Male, 62 years old with history of osteomyelitis discitis TECHNIQUE: Axial CT images from the skull base to the inferior aspect of T2 we obtained without intra venous contrast. Coronal and sagittal reformatted images were also reviewed. FINDINGS: Fracture: None. Osseous structures: Imaging endplates of C6 and C7 demonstrate complete loss of disc height with some osteophyte formation Schmorl's node and symptoms sclerosis. Vertebral alignment: Grade 1 anterolisthesis of C3 on C4 and C4 on C5. Spinal canal/Neural Foramina: Disc osteophyte complexes at C5-C6 with at least mild spinal canal sten osis. Facet joint uncovertebral joint arthropathy scattered throughout the cervical spine with varyin g degrees of neural foraminal stenosis. Neck soft tissues: Prevertebral soft tissues are within normal limits no suspicious soft tissue enhan cing masses. The vessels are patent. Other: The airway is patent. The lung apices are clear. IMPRESSION: 1. No evidence of cervical spine fracture. 2. Degeneration changes worse at C6-C7 which showed findings favoring active degeneration inflammatio n on MRI same day and less likely infection.
[2022-11-14] MEDS: LEVOTHYROXINE 50 MCG TAB PO SCH (06:41)
[2022-11-14] MEDS: DEXAMETHASONE SOD PHOSPHATE 4 MG/ML 1 ML VIAL IVP SCH ×4 (06:41→23:33)
[2022-11-14] MEDS: FOLIC ACID 1 MG TAB PO SCH (09:17)
[2022-11-14] MEDS: FLUoxetine HCL 20 MG CAP PO SCH (09:18)
[2022-11-14] MEDS: THIAMINE 100 MG TAB PO SCH (09:18)
[2022-11-14] MEDS: HEPARIN SODIUM,PORCINE/PF 5,000 UNIT/0.5 ML SYRINGE SQ SCH ×3 (09:18→23:31)
[2022-11-14] MEDS: FUROSEMIDE 20 MG TAB PO SCH ×2 (09:18→20:52)
[2022-11-14] MEDS: CHOLESTYRAMINE (WITH SUGAR) 4 GM PACKET PO SCH ×2 (09:18→17:27)
[2022-11-14] MEDS: MAGNESIUM OXIDE 400 MG TAB PO SCH ×3 (09:18→20:52)
[2022-11-14] MEDS: CHOLECALCIFEROL 25 MCG (1000 IU) TABLET PO SCH (09:18)
[2022-11-14] MEDS: DILTIAZEM ORAL 30 MG TAB PO SCH ×3 (09:18→20:51)
[2022-11-14] MEDS: POTASSIUM CHLORIDE ER 20 MEQ TAB.ER PO SCH (09:18)
[2022-11-14] MEDS: ZINC SULFATE 220 MG CAP PO SCH (09:18)
[2022-11-14] MEDS: CALCIUM CARBONATE 500 MG CHEWABLE PO SCH ×3 (09:18→20:51)
[2022-11-14] MEDS: PANTOPRAZOLE 40 MG/10 ML VIAL IVP SCH ×2 (09:19→20:51)
[2022-11-14] MEDS: SODIUM CHLORIDE 0.9% 1,000 ML IV SCH ×2 (09:19→23:34)
[2022-11-14] MEDS: AZITHROMYCIN 250 MG TAB PO SCH (09:19)
[2022-11-14] MEDS: CYANOCOBALAMIN 1,000 MCG/ML 1 ML VIAL IM SCH (09:19)
--- NOTE | 2022-11-14 09:21 | P.PN ---
Subjective Progress Note Date: 11/14/22 Principal diagnosis: -Bilateral upper extremity weakness; back pain Patient was seen at bedside this morning lying semirecumbent position. Patient says he is still having weakness in his upper extremities at this time. Patient denies any changes from yesterday. Patient denies chest pain, fever, shortness breath, nausea, vomiting, change in vision. Patient denies any saddle anesthesia. Objective - Vital Signs Vital signs: Vital Signs Temp 96.6 F L 11/14/22 04:00 Pulse 71 11/14/22 04:00 Resp 16 11/14/22 04:00 BP 114/65 11/14/22 04:00 Pulse Ox 98 11/14/22 04:00 FiO2 Intake & Output 11/13/22 11/14/22 11/14/22 18:59 06:59 18:59 Intake Total 590 Output Total 125 Balance 465 Intake: Intake, IV Titration 150 Amount Sodium Ferric Gluconat- 100 Sucrose 125 mg In Sodium Chloride 0.9% 100 ml @ 100 mls/hr IVPB DAILY [facility] Rx#:[id number] cefTRIAXone 1 gm In 50 Sodium Chloride 0.9% 50 ml @ 100 mls/hr IVPB Q24HR [facility] Rx#:[id number] Oral 440 Output: Urine 125 Other: Voiding Method Urinal Urinal Incontinent Incontinent # Voids 1 3 - Exam Inspection: Negative for any open fractures, significant ecchymosis/e rythema/ulcers. joint effusion left knee Sensation: Sensation is equal, symmetric, bilaterally intact throughout the upper and lower extremities. Palpation: TTP diffusely throughout the cervical spine. Patient does have some tenderness to palpation over the bilateral SI joints. Moderate TTP over medial and lateral joint lines left knee. NTTP throughout rest of exam Range of motion: Patient has full range of motion in right lower extremity and hip flexion/extension, knee flexion/extension and ankle dorsi/plantar flexion. Patient does have limited motion in left lower extremity in knee flexion due to swelling/pain. Patient does have full range motion left lower extremity and left ankle dorsi/plantar flexion and left hip in action/extension. Patient does have significant limited range of motion in right upper extremity. Patient is unable to actively move right upper extremity and shoulder elevation/abduction/external/internal rotation. Patient unable to actively flex/extend right elbow due to weakness. On passive exam patient does have full flexion/extension of right elbow; there is limited range of motion in right shoulder forward elevation due to pain. Left upper extremity full range of motion in elbow flexion test extension and left wrist flexion/extension. There is some limited active range of motion of the left shoulder and forward elevation, abduction, internal/external rotation. Motor: Right lower extremity 5/5 in all major motor groups. Left lower extremity 4+/5 in resisted ankle dorsi/plantar flexion. 3/5 in resisted left knee flexion/extension. 4+/5 in resisted left hip flexion/extension. Photograph Inspector strength 4+/5 bilaterally. Right shoulder and elbow exam 3-/5. Left upper extremity 4/5 in all major motor groups. Neurovascular status: Radial pulses intact, 2+ bilaterally. Cap refill under 3 seconds in digits upper extremities. Special tests: Negative Homans bilaterally. Negative clonus bilaterally. Positive Braden bilaterally - Labs CBC & Chem 7: 11/12/22 16:57 11/13/22 07:00 Labs: Abnormal Lab Results - Last 24 Hours (Table) 11/11/22 11/13/22 11/13/22 Range/Units 07:52 07:00 07:00 ESR 20 H (0-15) mm/hr Sodium 134 L (137-145) mmol/L Chloride 117 H (98-107) mmol/L Carbon Dioxide 14 L (22-30) mmol/L Calcium 7.1 L (8.4-10.2) mg/dL C-Reactive Protein (<1.0) mg/dL Vitamin B6 2 L (5-50) ug/L 11/13/22 Range/Units 07:00 ESR (0-15) mm/hr Sodium (137-145) mmol/L Chloride (98-107) mmol/L Carbon Dioxide (22-30) mmol/L Calcium (8.4-10.2) mg/dL C-Reactive Protein 7.2 H (<1.0) mg/dL Vitamin B6 (5-50) ug/L Assessment and Plan Assessment: 1. Bilateral upper extremity weakness 2. Left knee pain Plan: 1. Bilateral upper extremity weakness - cervical spine MRI performed 11/11/2022 does demonstrate spinal canal stenosis at C5-C6 and neural foraminal stenosis at several levels. There is spondylolisthesis C3-C4. 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 ESR and CRP elevated. Pain medication as needed. Hard c-collar on when up and about. We will discuss treatment options and continue to follow patient during stay in hospital. 2. Appreciate medical management 3. Pain management - Tylenol 4. DVT prophylaxis - heparin 5. GI prophylaxis - Protonix; Tums 6. PT/OT - weightbearing as tolerated with walker. Hard c-collar on when up and about 7. Appreciate consult Time with Patient: Less than 30
[2022-11-14 10:12] LABS: Basophils % (A) 0 %; Eosinophils % (A) 0 %; HCT 26.1 % (39.0-53.0); HGB 7.8 gm/dL (13.0-17.5); Hypochromasia Marked; Lymphocytes # (A) 1.4 k/uL (1.0-4.8); Lymphocytes % (A) 14 %; MCH 29.7 pg (25.0-35.0); Mean Platelet Volume 8.7; Monocytes # (A) 0.3 k/uL (0-1.0); Monocytes % (A) 4 %; Neutrophils # (A) 7.9 k/uL (1.3-7.7); Neutrophils % (A) 81 %; Platelet Count 309 k/uL (150-450); RBC 2.64 m/uL (4.30-5.90); RDW 15.1 % (11.5-15.5); WBC 9.8 k/uL (3.8-10.6)
[2022-11-14 10:20] LABS: African American GFR (CKD) >90 (>60 ml/min/1.73 sqM); Anion Gap 5 mmol/L; Blood Urea Nitrogen 15 mg/dL (9-20); Calcium 7.5 mg/dL (8.4-10.2); Carbon Dioxide 11 mmol/L (22-30); Chloride 117 mmol/L (98-107); Glucose 173 mg/dL (74-99); Magnesium 1.5 mg/dL (1.6-2.3); Non-African American GFR(CKD) 89 (>60 ml/min/1.73 sqM); Potassium 4.7 mmol/L (3.5-5.1); Sodium 133 mmol/L (137-145)
[2022-11-14] MEDS ORDERED: Magnesium Replacement Protocol 1 EACH MISC MISCELLANE PRN (10:35)
--- NOTE | 2022-11-14 10:53 | P.PN ---
Subjective 62-year-old male in the emergency department for diarrhea. She notes diarrhea starting and he asked progressively gotten worse. He reports he stood up from a chair and had an episode of diarrhea, admits he still maintains bowel function. He has not tried anything for his symptoms. He denies nausea, vomiting, abdominal pain, palpitations, fevers. Denies recent travel or recent antibiotic use. He is scheduled to have his first colonoscopy in january of 2023. Patient had an initial lab work is remarkable for WBC is 11.4, hemoglobin 8.7, INR 1.2, sodium 133, potassium 2.6 lactic acid 2.9, calcium 6.3, magnesium 0.8, lipase 60, COVID positive. I interpreted the following; CT abdomen without contrast remarkable for fluid filled colon without focal wall thickening or surrounding inflammatory changes. Patient was given 2 L fluids, potassium, magnesium and calcium during his course of the ED. 11/08/2022 Patient is seen and evaluated on selective care unit; he went into atrial fibrillation with rapid ventricular response he was transferred to the third floor/selective minute. The patient did not have any symptoms of heart racing or fluttering and no dizziness or lightheadedness and no presyncope or syncope and no symptoms of chest pain or chest discomfort or shortness of breath. No prior history of atrial fibrillation. No history of coronary artery disease or congestive heart failure or cardiac arrhythmia and the patient never seen a supervisor ticket sales in the past. Beside that no history of diabetes or hypertension or dyslipidemia. The patient was started initially on Cardizem drip but his pressure did go down and for that reason he was switched into amiodarone IV and subsequently con verted to normal sinus mechanism and since then he has been maintaining normal sinus mechanism. Further investigation was performed including CBC and that showed a hemoglobin of 7.7. The patient has no history of bleeding. Beside that he underwent a computed tomography scan of the abdomen and pelvis because of the abdominal discomfort that showed no acute abnormalities. The troponin came in to be slightly elevated likely secondary to tachycardia. The EKG showed sinus rhythm now with no significant ST or T-wave abnormalities. Blood work reveals mild elevation of troponin; Patient has been evaluated by cardiology and recommended to continue with IV fluids, replace electrolytes; IV amiodarone is to be discontinued patient is transition to oral dose daily 11/09/2022 Patient is seen and evaluated in follow-up this morning and continues to feel generalized weakness and continues with loose stools. Per nursing staff when assisting to clean the patient up patient was significantly weak on the right. Patient denied any headache, dizziness, or lightheadedness. Will obtain a CT of the brain and also consult neurology. Recommend PT/OT therapy evaluation for significant weakness. C. diff testing was negative on the stool and will add Imodium and encourage oral intake and advance as tolerated. Patient is maintaining on vitamins and zinc supplements along with subcutaneous heparin with anxiety following closely. Patient denies chest pain or shortness of breath. Afebrile. Recommend a.m. labs as well. 11/10/2022 Patient is seen in follow-up today with multiple medical consultations including cardiology, hematology, infectious disease, and now neurology following. Patien t with significant weakness in all upper and lower extremities with neurology undergoing workup recommending aspirin as patient is not on any anticoagulation at this time. Cardiology is following and patient was transitioned back to IV Cardizem although being changed to oral with close monitoring. Magnesium found to be significantly low at 1.2 and will replace per protocol and recommend repeat labs. Hemoglobin is mildly low at 7.4 and undergoing anemia workup with hematology following. Patient with Covid and extreme weakness will need ECF and discharge planning in process. Recommend close monitoring of labs and replace electrolytes per protocol. Patient was started on Imodium as C. diff testing 2 was negative. Patient continues to have loose stools although somewhat improved. Encouraged oral intake and increased activity as tolerated. Recommend PT/OT therapy daily. Patient denies chest pain or shortness of breath. Patient is 97% on room air. Patient will continue on vitamin and zinc supplements with anxiety following closely. Recommend gentle IV hydration. 11/11/2022 Patient is seen and evaluated in follow-up with multiple medical consultations following including infectious disease and neurology. Oncology following undergoing anemia workup. Hemoglobin was found to be 6.5 today and will order 1 unit of PRBC and recommend close monitoring. No active bleeding noted. Patient was started on baby aspirin per neurology and scheduled to undergo MRI of the cervical spine today. Patient continues with significant weakness and will need rehab upon discharge. Patient is maintained on vitamin and zinc supplements and was also being followed by cardiology. Adjustments to medications being done and patient is on oral Cardizem. Will follow-up with repeat labs. Patient is afebrile and denies shortness of breath. Patient clinically appears to be improving. Per nursing staff patient is incontinent of stool in continues to be somewhat loose although less frequent. C. diff testing was negative and stool cultures are negative. Encouraged oral intake. Will discuss with case management about discharge planning to ECF as he will require a Covid hub. 11/12/2022 Patient is seen and evaluated in follow-up today with multiple medical consultations following including infectious disease, cardiology, neurology. Patient's hemoglobin is low again at 6.8 and will give 1 unit. Recommend holding aspirin. Patient did have an elevated d-dimer and CTA was ordered. GI was also consulted for anemia. Patient continues to have incontinence of stool and loose stools and is maintained on Questran and will be given Imodium as needed. Patient continues with generalized weakness and fatigue and also having some lower extremity pain and swelling and have ordered Dopplers of bilateral lower extremities as well. Patient with Covid vitamin and zinc supplements and anticoagulation with subcu heparin. Hematology also following for anemia. Recommend repeat CBC this evening and will transfuse another unit as well. Cardiology following and adjustments to medications being made and patient also being started on low-dose diuretics. Patient is having low-grade temps of 99.3- 99.6 and patient continues to be 95% or above on room air. Blood pressure on the lower side although stable. Stool cultures and C. diff testing have been negative. Patient started on antibiotics per ID recommendations in the form of Zithromax and ceftriaxone. Reviewed iron studies which are low and will give IV iron as well. Electrolytes continue to be low and will replace per protocol. Patient will need ECF once stabilized and discharged 11/13/2022 Patient is seen today with multiple medical consultations following and undergoing neurological workup and having bilateral upper and lower extremity weakness. Neurology recommends orthopedic consultation which is currently pending. Patient did have some movement in his diarrhea and reports becoming more formed and less frequent. Patient continues to be incontinent of this. Patient being started on antibiotics with anxiety following an also continues to have anemia. GI recommending continuing with hematology workup. Multiple images including MRIs and pending at time. Patient with significant weakness will be going to rehab when stable. A.m. labs are pending. 11/14/2022 This is a pleasant 62 years old male with Covid pneumonia and bacterial pneumonia especially in the right lower lobe. His been covered with Zithromax and ceftriaxone with ID team and pulmonary team on the case. His breathing looks improvement, now much tachypnea or dyspnea. She is complaining of from bilateral upper extremity weakness, MRI ordered by orthopedic team showing spinal stenosis of C5 to C6 with possible osteo-discitis of L3-L4 and orthopedic team R following closely. Also he is on dexamethasone Patient had ultrasound of the legs showing no DVT on the right leg with non- occlusive thrombosis of the left leg. Hematology team are currently following with and he is patient on subcutaneous heparin. Patient still have diarrhea about 3 times per day yesterday no abdominal pain or vomiting. Patient currently on Zithromax and ceftriaxone, oral Lasix and normal saline 75 mL/h Objective - Vital Signs Vital signs: Vital Signs Temp 96.6 F L 11/14/22 04:00 Pulse 71 11/14/22 04:00 Resp 16 11/14/22 04:00 BP 114/65 11/14/22 04:00 Pulse Ox 98 11/14/22 04:00 FiO2 Intake & Output 11/13/22 11/14/22 11/14/22 18:59 06:59 18:59 Intake Total 590 Output Total 125 Balance 465 Intake: Intake, IV Titration 150 Amount Sodium Ferric Gluconat- 100 Sucrose 125 mg In Sodium Chloride 0.9% 100 ml @ 100 mls/hr IVPB DAILY [facility] Rx#:[id number] cefTRIAXone 1 gm In 50 Sodium Chloride 0.9% 50 ml @ 100 mls/hr IVPB Q24HR [facility] Rx#:[id number] Oral 440 Output: Urine 125 Other: Voiding Method Urinal Urinal Incontinent Incontinent # Voids 1 3 - Exam -GENERAL: The patient is alert and oriented x3, not in any acute distress. Well developed, well nourished. Generally weak -HEENT: Pupils are round and equally reacting to light. EOMI. No scleral icterus. No conjunctival pallor. Normocephalic, atraumatic. No pharyngeal erythema. No thyromegaly. Dry mucous membranes, mild CARDIOVASCULAR: S1 and S2 present. No murmurs, rubs, or gallops. PULMONARY: Chest is clear to auscultation, no wheezing or crackles. ABDOMEN: Soft, nontender, nondistended, normoactive bowel sounds. No palpable organomegaly. MUSCULOSKELETAL: No joint swelling or deformity. -EXTREMITIES: No cyanosis, clubbing, or pedal edema. left leg swelling NEUROLOGICAL: Gross neurological examination did not reveal any focal deficits. SKIN: No rashes. no petechiae. - Labs CBC & Chem 7: 11/14/22 09:30 11/14/22 09:30 Labs: Abnormal Lab Results - Last 24 Hours (Table) 11/11/22 11/13/22 11/13/22 Range/Units 07:52 07:00 07:00 RBC (4.30-5.90) m/uL Hgb (13.0-17.5) gm/dL Hct (39.0-53.0) % MCHC (31.0-37.0) g/dL Neutrophils # (1.3-7.7) k/uL ESR 20 H (0-15) mm/hr Sodium (137-145) mmol/L Chloride (98-107) mmol/L Carbon Dioxide (22-30) mmol/L Glucose (74-99) mg/dL Calcium (8.4-10.2) mg/dL Magnesium (1.6-2.3) mg/dL C-Reactive Protein 7.2 H (<1.0) mg/dL Vitamin B6 2 L (5-50) ug/L 11/14/22 11/14/22 Range/Units 09:30 09:30 RBC 2.64 L (4.30-5.90) m/uL Hgb 7.8 L (13.0-17.5) gm/dL Hct 26.1 L (39.0-53.0) % MCHC 30.0 L (31.0-37.0) g/dL Neutrophils # 7.9 H (1.3-7.7) k/uL ESR (0-15) mm/hr Sodium 133 L (137-145) mmol/L Chloride 117 H (98-107) mmol/L Carbon Dioxide 11 L (22-30) mmol/L Glucose 173 H (74-99) mg/dL Calcium 7.5 L (8.4-10.2) mg/dL Magnesium 1.5 L (1.6-2.3) mg/dL C-Reactive Protein (<1.0) mg/dL Vitamin B6 (5-50) ug/L Assessment and Plan Assessment: Bilateral: Pneumonia with superimposed gram-negative bacterial infection is suspected mainly in the right lower lobe Acute hypoxic respiratory failure Sepsis secondary to above Anemia with vitamin B12 deficiency and currently on IM B12 replacement therapy Elevated troponin, most likely type II. 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 Continue same treatment. Continue with symptomatic treatment. Resume home medication. Monitor labs and vitals. DVT and GI prophylaxis. Further recommendations as per clinical course of the patient DVT prophylaxis: Subcutaneous heparin GI Prophylaxis: Ppi PT/OT: Pending Prognosis is guarded
--- NOTE | 2022-11-14 11:07 | P.PN ---
Subjective Progress Note Date: 11/14/22 Principal diagnosis: Covid 19 Patient is a 62-year-old male who is unvaccinated for COVID-19 patient was brought into the ER for evaluation of weakness no energy mention the patient was not able to get stand up and go to the bathroom patient has been dealing with the diarrhea off and on for couple of weeks, patient was noticed to have a positive covid test, however the patient was not hypoxic and CT abdominal pelvis with few bibasilar patchy groundglass opacity representing atelectasis and no evidence of colitis. On today's evaluation that is 11/14/2022, the patient continues to be afebrile, the patient is breathing comfortably on room air, The patient denies chest pain or shortness of breath, the patient cough has decreased in intensity and not bringing up any sputum no nausea no vomiting no abdominal pain still complaining of some diarrhea Objective - Vital Signs Vital signs: Vital Signs Temp 96.6 F L 11/14/22 04:00 Pulse 71 11/14/22 04:00 Resp 16 11/14/22 04:00 BP 114/65 11/14/22 04:00 Pulse Ox 98 11/14/22 04:00 FiO2 Intake & Output 11/13/22 11/14/22 11/14/22 18:59 06:59 18:59 Intake Total 590 Output Total 125 Balance 465 Intake: Intake, IV Titration 150 Amount Sodium Ferric Gluconat- 100 Sucrose 125 mg In Sodium Chloride 0.9% 100 ml @ 100 mls/hr IVPB DAILY [facility] Rx#:[id number] cefTRIAXone 1 gm In 50 Sodium Chloride 0.9% 50 ml @ 100 mls/hr IVPB Q24HR [facility] Rx#:[id number] Oral 440 Output: Urine 125 Other: Voiding Method Urinal Urinal Incontinent Incontinent # Voids 1 3 - Exam GENERAL DESCRIPTION: An elderly male lying in bed in no distress RESPIRATORY SYSTEM: Unlabored breathing , decreased breath sounds at bases HEART: S1 S2 regular rate and rhythm , ABDOMEN: Soft , no tenderness EXTREMITIES: No edema feet - Labs CBC & Chem 7: 11/14/22 09:30 11/14/22 09:30 Labs: Abnormal Lab Results - Last 24 Hours (Table) 11/11/22 11/13/22 11/13/22 Range/Units 07:52 07:00 07:00 RBC (4.30-5.90) m/uL Hgb (13.0-17.5) gm/dL Hct (39.0-53.0) % MCHC (31.0-37.0) g/dL Neutrophils # (1.3-7.7) k/uL ESR 20 H (0-15) mm/hr Sodium (137-145) mmol/L Chloride (98-107) mmol/L Carbon Dioxide (22-30) mmol/L Glucose (74-99) mg/dL Calcium (8.4-10.2) mg/dL Magnesium (1.6-2.3) mg/dL C-Reactive Protein 7.2 H (<1.0) mg/dL Vitamin B6 2 L (5-50) ug/L 11/14/22 11/14/22 Range/Units 09:30 09:30 RBC 2.64 L (4.30-5.90) m/uL Hgb 7.8 L (13.0-17.5) gm/dL Hct 26.1 L (39.0-53.0) % MCHC 30.0 L (31.0-37.0) g/dL Neutrophils # 7.9 H (1.3-7.7) k/uL ESR (0-15) mm/hr Sodium 133 L (137-145) mmol/L Chloride 117 H (98-107) mmol/L Carbon Dioxide 11 L (22-30) mmol/L Glucose 173 H (74-99) mg/dL Calcium 7.5 L (8.4-10.2) mg/dL Magnesium 1.5 L (1.6-2.3) mg/dL C-Reactive Protein (<1.0) mg/dL Vitamin B6 (5-50) ug/L Assessment and Plan (1) COVID-19 Current Visit: Yes Status: Acute Priority: High Code(s): U07.1 - COVID-19 SNOMED Code(s): 178780122 (2) Diarrhea Current Visit: Yes Status: Acute Priority: High Code(s): R19.7 - DIARRHEA, UNSPECIFIED SNOMED Code(s): 62424276 Plan: 1patient present to hospital generalized weakness which is likely multifactorial could be related to his diarrhea has not patient did have significant diarrhea and evidence of prerenal status was low potassium, stool for C. diff is negative stool cultures has been obtained and currently pending, patient to continue Questran and advised to increase his probiotic and yogurt intake 2patient with a low-grade fever, the patient did have elevated pro calcitonin, CT angiogram of the chest was negative for PE however did shows right lower lobe infiltrate suspicious for pneumonia 3-patient fever has resolved, patient will continue with Rocephin and Zithromax, try to obtain sputum cultures to narrow his antibiotics and monitor clinical course closely Time with Patient: Less than 30
[2022-11-14] MEDS: SODIUM FERRIC GLUCONAT-SUCROSE 125 MG in SODIUM CHLORIDE 0.9% 100 ML IVPB SCH (11:35)
--- NOTE | 2022-11-14 13:36 | P.PN ---
Subjective Progress Note Date: 11/14/22 I am seeing the patient for the first time and he states he is having weakness, mostly right upper and left lower. Patient denies of any numbness or tingling or any ascending weakness. It seems he has COVID-19 infection, DVT over the left lower. He has recent repeat MRI C-spine and reported as significant motion artifact limiting evaluation within the cervical spine. There is edema of the adjoining C6-C7 and platelets and along the prevertebral space fever to be under degenerative basis and less likely early osteomyelitis discitis. Limited exam no gross evidence for significant spinal canal stenosis no neuroforaminal stenosis. CT of the cervical spine with contrast seems to favor the MRI which is reported as degenerative changes worse at C6-C7 which showed finding favoring and active degeneration inflammation on MRI same day and less likely infection. Orthopedic team is on board Please refer to Dr. Blankenship's note for further details Objective - Vital Signs Vital signs: Vital Signs Temp 98.8 F 11/14/22 11:52 Pulse 68 11/14/22 11:52 Resp 16 11/14/22 11:52 BP 117/74 11/14/22 11:52 Pulse Ox 98 11/14/22 11:52 FiO2 Intake & Output 11/13/22 11/14/22 11/14/22 18:59 06:59 18:59 Intake Total 590 Output Total 125 Balance 465 Intake: Intake, IV Titration 150 Amount Sodium Ferric Gluconat- 100 Sucrose 125 mg In Sodium Chloride 0.9% 100 ml @ 100 mls/hr IVPB DAILY [place] Rx#:[id number] cefTRIAXone 1 gm In 50 Sodium Chloride 0.9% 50 ml @ 100 mls/hr IVPB Q24HR [place] Rx#:[id number] Oral 440 Output: Urine 125 Other: Voiding Method Urinal Urinal Urinal Incontinent Incontinent Incontinent # Voids 1 3 - Exam GENERAL: The patient is laying in bed and is in minimal to mild acute distress. NEUROLOGICAL: Higher mental function: The patient is awake, alert, oriented to self, place and time. He is somewhat slow responding. Patient is following simple commands. No aphasia and no neglect. Cranial nerves: The pupils are round, equal and reactive to light and accommodation. Visual elder are full to confrontation throughout. Extraocular movement is intact no nystagmus is noted. Facial sensation is normal to touch throughout. The facial strength is normal throughout. Tongue is midline and moved [id number] without any difficulty. No dysarthria is noted. Shoulder shrug is normal bilaterally. Motor: The strength is limited but has very difficulty raising the right arm above gravity, strength in right upper is about 2 but has also edema in right arm region. Is able to raise left upper and right lower above gravity . Left Lower has difficulty raising above gravity since has DVT in lower. Sensation: Sensation is normal to touch throughout. Reflexes (right/left): 0-1+ throughout. Plantars are mute bilaterally. - Labs CBC & Chem 7: 11/14/22 09:30 11/14/22 09:30 Labs: Abnormal Lab Results - Last 24 Hours (Table) 11/13/22 11/14/22 11/14/22 Range/Units 07:00 09:30 09:30 RBC 2.64 L (4.30-5.90) m/uL Hgb 7.8 L (13.0-17.5) gm/dL Hct 26.1 L (39.0-53.0) % MCHC 30.0 L (31.0-37.0) g/dL Neutrophils # 7.9 H (1.3-7.7) k/uL ESR 20 H (0-15) mm/hr Sodium 133 L (137-145) mmol/L Chloride 117 H (98-107) mmol/L Carbon Dioxide 11 L (22-30) mmol/L Glucose 173 H (74-99) mg/dL Calcium 7.5 L (8.4-10.2) mg/dL Magnesium 1.5 L (1.6-2.3) mg/dL Assessment and Plan Assessment: * Acute COVID infection with severe diarrhea for around 7-10 days. * Generalized weakness, slightly asymmetric. Etiology possibly multifactorial, probably related to electrolyte imbalance, with hypokalemia, hyponatremia, h ypocalcemia, hypomagnesemia, copper deficiency as well B6 deficiency and very low normal B12. Patient's reflexes appears diminished and not sure exact cause: if due to degenerative cervical changes vs electrolyte/nutrition deficient vs ??GBS * Degenerative changes worse at C6-C7 seen on MRI * Vitamin B12 deficiency * Vitamin B6 deficient * Copper deficiency * DVT in left lower extremity and has swelling over the right arm concerning for DVT. * Paroxysmal atrial fibrillation * Alcoholism * Anemia Plan: * MRI of the cervical spine revealed significantly limited study secondary to motion. Within the limitation, there is at least moderate spinal canal stenosis at C5 6. Multilevel neural foraminal stenosis. Grade 1 anterolisthesis of C3 on C4. Degeneration changes worse at C6-C7 with the joint place edema. Orthopedic surgery is consulted. I spoke in detailed with Dr. Zheng and felt possibly needs a repeat MRI. He did not feel patient is a surgical candidate. * For B6 deficient started 50mg 1 tab bid for now and then repeated level needs to be checked down the line. * Patient has evidence of vitamin B12 deficiency with B12 226 with low B12 and elevated methylmalonic acid 0.51. Patient started on vitamin B12 1000 g IM daily. * Ordered ionized calcium. * Hematology has seen the patient, ordered blood testing. * CPK < 20, B1 69, TSH normal. Folate 21.2. Serum protein electrophoresis and immunofixation electrophoresis showed no paraproteinemia * For copper deficiency, would defer to hematology. * Patient also had an episode of paroxysmal atrial fibrillation. Cardiology has seen the patient, not recommending anticoagulation. From neurological perspective will defer use of ASA to primary team. Patient does not have stroke but was used for atrial fibrillation. * 2-D echo revealed left ventricular hypertrophy with normal left-ventricular systolic function with EF 55%. No obvious regional wall motion abnormalities. Left atrial size is normal. Mild to moderate mitral regurgitation. * PT and OT are consulted * I.D. team is on board. * DVT in left lower extremity and has swelling over the right arm concerning for DVT. * Will defer the rest of medical management to primary team. * He is on subq heparin for DVT prophylaxis. The plan is discussed with patient and Orthopedic team as well his nurse. Will continue to follow. Time with Patient: Less than 30
[2022-11-14] MEDS: PYRIDOXINE 50 MG TAB PO SCH ×2 (13:37→20:52)
--- NOTE | 2022-11-14 14:41 | P.PN ---
Progress Note - Text Progress Note Date: 11/14/22 Review of doppler, per page from nursing (Attempted to call back page x2 no answer). Probable non occlusive DVT LE, unable to therapeutically anticoagulate with active bleeding. Monitor closely and repeat doppler in one week. Daily CBC.
[2022-11-14] MEDS: ASCORBIC ACID 500 MG TAB PO SCH (20:52)
[2022-11-15] MEDS ORDERED: Magnesium Replacement Protocol 1 EACH MISC MISCELLANE PRN (01:11)
[2022-11-15] MEDS: MAGNESIUM SULFATE-D5W PMX 1 GM in DEXTROSE/WATER 1 100ML.BAG IVPB SCH ×2 (01:42→03:05)
[2022-11-15] MEDS: LEVOTHYROXINE 50 MCG TAB PO SCH (06:45)
[2022-11-15] MEDS: DEXAMETHASONE SOD PHOSPHATE 4 MG/ML 1 ML VIAL IVP SCH ×3 (06:45→16:54)
--- NOTE | 2022-11-15 07:54 | P.PN ---
Subjective Progress Note Date: 11/15/22 Pt s/e. Resting comfortable. No complaints today. States no pain in neck or back. Denies any other sx at this time. Objective - Vital Signs Vital signs: Vital Signs Temp 95.9 F L 11/15/22 03:11 Pulse 58 L 11/15/22 03:11 Resp 15 11/15/22 03:11 BP 111/70 11/15/22 03:11 Pulse Ox 97 11/15/22 03:11 FiO2 Intake & Output 11/14/22 11/15/22 11/15/22 18:59 06:59 18:59 Intake Total 5 100 Output Total 325 Balance -320 100 Intake: IV 5 100 Invasive Line 4 5 100 Output: Urine 325 Other: Voiding Method Urinal Incontinent Incontinent External Catheter # Voids 3 1 - Exam NO exam changes today. Still with RUE and RLE weakness 2-01/31. - EENT Eyes: Present: EOMI, PERRLA - Labs CBC & Chem 7: 11/14/22 09:30 11/14/22 09:30 Labs: Abnormal Lab Results - Last 24 Hours (Table) 11/14/22 11/14/22 11/14/22 Range/Units 09:30 09:30 14:21 RBC 2.64 L (4.30-5.90) m/uL Hgb 7.8 L (13.0-17.5) gm/dL Hct 26.1 L (39.0-53.0) % MCHC 30.0 L (31.0-37.0) g/dL Neutrophils # 7.9 H (1.3-7.7) k/uL Sodium 133 L (137-145) mmol/L Chloride 117 H (98-107) mmol/L Carbon Dioxide 11 L (22-30) mmol/L Glucose 173 H (74-99) mg/dL Calcium 7.5 L (8.4-10.2) mg/dL Ionized Calcium Shara 5.5 H (4.5-5.3) mg/dL Magnesium 1.5 L (1.6-2.3) mg/dL Assessment and Plan Assessment: 1. Bilateral upper extremity weakness 2. Left knee pain Plan: 1. Bilateral upper extremity weakness - cervical spine MRI performed 11/11/2022 does demonstrate spinal canal stenosis at C5-C6 and neural foraminal stenosis at several levels. There is spondylolisthesis C3-C4. Patient does demonstrate weakness bilaterally in the upper extremities on exam. Repeat MRI of cervical spine has been ordered for further evaluation as well as thoracic and lumbar spine MRIs and CT of cervical spine. Decadron 2 mg every 6 hours has been ordered. ESR and CRP have been ordered for further evaluation. Pain medication as needed. Hard c-collar on when up and about. We will discuss treatment options and continue to follow patient during stay in hospital. Discussed case with neurology yesterday. No plans for emergent or urgent surgical intervention. 2. Appreciate medical management 3. Pain management - Tylenol 4. DVT prophylaxis - heparin 5. GI prophylaxis - Protonix; Tums 6. PT/OT - weightbearing as tolerated with walker. Hard c-collar on when up and about 7. Appreciate consult
[2022-11-15] MEDS: POTASSIUM CHLORIDE ER 20 MEQ TAB.ER PO SCH (08:59)
[2022-11-15] MEDS: DILTIAZEM ORAL 30 MG TAB PO SCH ×3 (08:59→21:45)
[2022-11-15] MEDS: FOLIC ACID 1 MG TAB PO SCH (08:59)
[2022-11-15] MEDS: ASCORBIC ACID 500 MG TAB PO SCH ×2 (08:59→21:45)
[2022-11-15] MEDS: AZITHROMYCIN 250 MG TAB PO SCH (09:00)
[2022-11-15] MEDS: FUROSEMIDE 20 MG TAB PO SCH ×2 (09:00→21:45)
[2022-11-15] MEDS: FLUoxetine HCL 20 MG CAP PO SCH (09:00)
[2022-11-15] MEDS: HEPARIN SODIUM,PORCINE/PF 5,000 UNIT/0.5 ML SYRINGE SQ SCH ×2 (09:00→16:54)
[2022-11-15] MEDS: CALCIUM CARBONATE 500 MG CHEWABLE PO SCH ×3 (09:00→21:45)
[2022-11-15] MEDS: THIAMINE 100 MG TAB PO SCH (09:00)
[2022-11-15] MEDS: MAGNESIUM OXIDE 400 MG TAB PO SCH ×3 (09:00→21:45)
[2022-11-15] MEDS: CHOLECALCIFEROL 25 MCG (1000 IU) TABLET PO SCH (09:00)
[2022-11-15] MEDS: CHOLESTYRAMINE (WITH SUGAR) 4 GM PACKET PO SCH ×2 (09:00→16:54)
[2022-11-15] MEDS: PYRIDOXINE 50 MG TAB PO SCH ×2 (09:00→21:45)
[2022-11-15] MEDS: ZINC SULFATE 220 MG CAP PO SCH (09:01)
[2022-11-15] MEDS: CYANOCOBALAMIN 1,000 MCG/ML 1 ML VIAL IM SCH (09:01)
[2022-11-15] MEDS: PANTOPRAZOLE 40 MG/10 ML VIAL IVP SCH ×2 (09:01→21:45)
[2022-11-15] MEDS: SODIUM FERRIC GLUCONAT-SUCROSE 125 MG in SODIUM CHLORIDE 0.9% 100 ML IVPB SCH (09:41)
[2022-11-15 10:07] LABS: Basophils % (A) 0 %; Eosinophils % (A) 0 %; HCT 24.4 % (39.0-53.0); HGB 7.3 gm/dL (13.0-17.5); Hypochromasia Marked; Lymphocytes # (A) 2.2 k/uL (1.0-4.8); Lymphocytes % (A) 15 %; MCH 29.5 pg (25.0-35.0); MCV 98.3 fL (80.0-100.0); Mean Platelet Volume 9.2; Monocytes # (A) 0.6 k/uL (0-1.0); Monocytes % (A) 4 %; Neutrophils # (A) 11.4 k/uL (1.3-7.7); Neutrophils % (A) 80 %; Platelet Count 327 k/uL (150-450); RBC 2.48 m/uL (4.30-5.90); RDW 15.3 % (11.5-15.5); WBC 14.2 k/uL (3.8-10.6)
[2022-11-15 10:22] LABS: African American GFR (CKD) >90 (>60 ml/min/1.73 sqM); Anion Gap 5 mmol/L; Blood Urea Nitrogen 17 mg/dL (9-20); Calcium 7.5 mg/dL (8.4-10.2); Carbon Dioxide 13 mmol/L (22-30); Chloride 114 mmol/L (98-107); Glucose 190 mg/dL (74-99); Magnesium 1.9 mg/dL (1.6-2.3); Non-African American GFR(CKD) 83 (>60 ml/min/1.73 sqM); Potassium 5.1 mmol/L (3.5-5.1); Sodium 132 mmol/L (137-145)
--- NOTE | 2022-11-15 10:54 | P.PN ---
Subjective 62-year-old male in the emergency department for diarrhea. She notes diarrhea starting and he asked progressively gotten worse. He reports he stood up from a chair and had an episode of diarrhea, admits he still maintains bowel function. He has not tried anything for his symptoms. He denies nausea, vomiting, abdominal pain, palpitations, fevers. Denies recent travel or recent antibiotic use. He is scheduled to have his first colonoscopy in january of 2023. Patient had an initial lab work is remarkable for WBC is 11.4, hemoglobin 8.7, INR 1.2, sodium 133, potassium 2.6 lactic acid 2.9, calcium 6.3, magnesium 0.8, lipase 60, COVID positive. I interpreted the following; CT abdomen without contrast remarkable for fluid filled colon without focal wall thickening or surrounding inflammatory changes. Patient was given 2 L fluids, potassium, magnesium and calcium during his course of the ED. 11/08/2022 Patient is seen and evaluated on selective care unit; he went into atrial fibrillation with rapid ventricular response he was transferred to the third floor/selective minute. The patient did not have any symptoms of heart racing or fluttering and no dizziness or lightheadedness and no presyncope or syncope and no symptoms of chest pain or chest discomfort or shortness of breath. No prior history of atrial fibrillation. No history of coronary artery disease or congestive heart failure or cardiac arrhythmia and the patient never seen a furnace charger in the past. Beside that no history of diabetes or hypertension or dyslipidemia. The patient was started initially on Cardizem drip but his pressure did go down and for that reason he was switched into amiodarone IV and subsequently con verted to normal sinus mechanism and since then he has been maintaining normal sinus mechanism. Further investigation was performed including CBC and that showed a hemoglobin of 7.7. The patient has no history of bleeding. Beside that he underwent a computed tomography scan of the abdomen and pelvis because of the abdominal discomfort that showed no acute abnormalities. The troponin came in to be slightly elevated likely secondary to tachycardia. The EKG showed sinus rhythm now with no significant ST or T-wave abnormalities. Blood work reveals mild elevation of troponin; Patient has been evaluated by cardiology and recommended to continue with IV fluids, replace electrolytes; IV amiodarone is to be discontinued patient is transition to oral dose daily 11/09/2022 Patient is seen and evaluated in follow-up this morning and continues to feel generalized weakness and continues with loose stools. Per nursing staff when assisting to clean the patient up patient was significantly weak on the right. Patient denied any headache, dizziness, or lightheadedness. Will obtain a CT of the brain and also consult neurology. Recommend PT/OT therapy evaluation for significant weakness. C. diff testing was negative on the stool and will add Imodium and encourage oral intake and advance as tolerated. Patient is maintaining on vitamins and zinc supplements along with subcutaneous heparin with anxiety following closely. Patient denies chest pain or shortness of breath. Afebrile. Recommend a.m. labs as well. 11/10/2022 Patient is seen in follow-up today with multiple medical consultations including cardiology, hematology, infectious disease, and now neurology following. Patien t with significant weakness in all upper and lower extremities with neurology undergoing workup recommending aspirin as patient is not on any anticoagulation at this time. Cardiology is following and patient was transitioned back to IV Cardizem although being changed to oral with close monitoring. Magnesium found to be significantly low at 1.2 and will replace per protocol and recommend repeat labs. Hemoglobin is mildly low at 7.4 and undergoing anemia workup with hematology following. Patient with Covid and extreme weakness will need ECF and discharge planning in process. Recommend close monitoring of labs and replace electrolytes per protocol. Patient was started on Imodium as C. diff testing 2 was negative. Patient continues to have loose stools although somewhat improved. Encouraged oral intake and increased activity as tolerated. Recommend PT/OT therapy daily. Patient denies chest pain or shortness of breath. Patient is 97% on room air. Patient will continue on vitamin and zinc supplements with anxiety following closely. Recommend gentle IV hydration. 11/11/2022 Patient is seen and evaluated in follow-up with multiple medical consultations following including infectious disease and neurology. Oncology following undergoing anemia workup. Hemoglobin was found to be 6.5 today and will order 1 unit of PRBC and recommend close monitoring. No active bleeding noted. Patient was started on baby aspirin per neurology and scheduled to undergo MRI of the cervical spine today. Patient continues with significant weakness and will need rehab upon discharge. Patient is maintained on vitamin and zinc supplements and was also being followed by cardiology. Adjustments to medications being done and patient is on oral Cardizem. Will follow-up with repeat labs. Patient is afebrile and denies shortness of breath. Patient clinically appears to be improving. Per nursing staff patient is incontinent of stool in continues to be somewhat loose although less frequent. C. diff testing was negative and stool cultures are negative. Encouraged oral intake. Will discuss with case management about discharge planning to ECF as he will require a Covid hub. 11/12/2022 Patient is seen and evaluated in follow-up today with multiple medical consultations following including infectious disease, cardiology, neurology. Patient's hemoglobin is low again at 6.8 and will give 1 unit. Recommend holding aspirin. Patient did have an elevated d-dimer and CTA was ordered. GI was also consulted for anemia. Patient continues to have incontinence of stool and loose stools and is maintained on Questran and will be given Imodium as needed. Patient continues with generalized weakness and fatigue and also having some lower extremity pain and swelling and have ordered Dopplers of bilateral lower extremities as well. Patient with Covid vitamin and zinc supplements and anticoagulation with subcu heparin. Hematology also following for anemia. Recommend repeat CBC this evening and will transfuse another unit as well. Cardiology following and adjustments to medications being made and patient also being started on low-dose diuretics. Patient is having low-grade temps of 99.3- 99.6 and patient continues to be 95% or above on room air. Blood pressure on the lower side although stable. Stool cultures and C. diff testing have been negative. Patient started on antibiotics per ID recommendations in the form of Zithromax and ceftriaxone. Reviewed iron studies which are low and will give IV iron as well. Electrolytes continue to be low and will replace per protocol. Patient will need ECF once stabilized and discharged 11/13/2022 Patient is seen today with multiple medical consultations following and undergoing neurological workup and having bilateral upper and lower extremity weakness. Neurology recommends orthopedic consultation which is currently pending. Patient did have some movement in his diarrhea and reports becoming more formed and less frequent. Patient continues to be incontinent of this. Patient being started on antibiotics with anxiety following an also continues to have anemia. GI recommending continuing with hematology workup. Multiple images including MRIs and pending at time. Patient with significant weakness will be going to rehab when stable. A.m. labs are pending. 11/14/2022 This is a pleasant 62 years old male with Covid pneumonia and bacterial pneumonia especially in the right lower lobe. His been covered with Zithromax and ceftriaxone with ID team and pulmonary team on the case. His breathing looks improvement, now much tachypnea or dyspnea. She is complaining of from bilateral upper extremity weakness, MRI ordered by orthopedic team showing spinal stenosis of C5 to C6 with possible osteo-discitis of L3-L4 and orthopedic team R following closely. Also he is on dexamethasone Patient had ultrasound of the legs showing no DVT on the right leg with non- occlusive thrombosis of the left leg. Hematology team are currently following with and he is patient on subcutaneous heparin. Patient still have diarrhea about 3 times per day yesterday no abdominal pain or vomiting. Patient currently on Zithromax and ceftriaxone, oral Lasix and normal saline 75 mL/h 11/15/2022 Patient Covid pneumonia is improving and he has minimal respiratory symptoms, no dyspnea at rest, patient is not working, no chest pain, occasional coughing, he is saturating well and he continued on treatment with dexamethasone which is helping also has a spine disease as he has C5-C6 stenosis orthopedic team on the case, no surgical intervention Also his continued on Zithromax and ceftriaxone for his pneumonia with ID team on the case. Patient has left leg swelling most likely secondary to nonocclusive DVT however patient could not get anticoagulation because of his severe anemia, hematology input is appreciated, anticoagulation has more risks than benefits. We are going to check occult blood in the stool, hemoglobin today slightly going down 7.3. However anemia workup showing some evidence of anemia of chronic disease patient also with A. fib but no need for intervention for this purpose as her score 0. Management Liaison. Objective - Vital Signs Vital signs: Vital Signs Temp 95.9 F L 11/15/22 03:11 Pulse 58 L 11/15/22 08:55 Resp 16 11/15/22 08:55 BP 102/69 11/15/22 08:55 Pulse Ox 97 11/15/22 08:55 FiO2 Intake & Output 11/14/22 11/15/22 11/15/22 18:59 06:59 18:59 Intake Total 5 100 Output Total 325 Balance -320 100 Intake: IV 5 100 Invasive Line 4 5 100 Output: Urine 325 Other: Voiding Method Urinal Incontinent Incontinent Incontinent External Catheter External Catheter # Voids 3 1 - Exam -GENERAL: The patient is alert and oriented x3, not in any acute distress. Well developed, well nourished. Generally weak -HEENT: Pupils are round and equally reacting to light. EOMI. No scleral icterus. No conjunctival pallor. Normocephalic, atraumatic. No pharyngeal erythema. No thyromegaly. Dry mucous membranes, mild CARDIOVASCULAR: S1 and S2 present. No murmurs, rubs, or gallops. PULMONARY: Chest is clear to auscultation, no wheezing or crackles. ABDOMEN: Soft, nontender, nondistended, normoactive bowel sounds. No palpable organomegaly. MUSCULOSKELETAL: No joint swelling or deformity. -EXTREMITIES: No cyanosis, clubbing, or pedal edema. left leg swelling NEUROLOGICAL: Gross neurological examination did not reveal any focal deficits. SKIN: No rashes. no petechiae. - Labs CBC & Chem 7: 11/15/22 09:49 11/15/22 09:49 Labs: Abnormal Lab Results - Last 24 Hours (Table) 11/14/22 11/15/22 11/15/22 Range/Units 14:21 09:49 09:49 WBC 14.2 H (3.8-10.6) k/uL RBC 2.48 L (4.30-5.90) m/uL Hgb 7.3 L (13.0-17.5) gm/dL Hct 24.4 L (39.0-53.0) % MCHC 30.0 L (31.0-37.0) g/dL Neutrophils # 11.4 H (1.3-7.7) k/uL Sodium 132 L (137-145) mmol/L Chloride 114 H (98-107) mmol/L Carbon Dioxide 13 L (22-30) mmol/L Glucose 190 H (74-99) mg/dL Calcium 7.5 L (8.4-10.2) mg/dL Ionized Calcium Shara 5.5 H (4.5-5.3) mg/dL Assessment and Plan Assessment: Bilateral: Pneumonia with superimposed gram-negative bacterial infection is suspected mainly in the right lower lobe Acute hypoxic respiratory failure Sepsis secondary to above Anemia with vitamin B12 deficiency and currently on IM B12 replacement therapy Elevated troponin, most likely type II. No chest pain, normal LV function Low vitamin B12 and B6 Nonocclusive thrombosis of the left leg Paroxysmal atrial fibrillation no anticoagulation with score of 0 per Management Liaison Plan: continue with antibiotic, currently on Zithromax and ceftriaxone Continue with dexamethasone per orthopedic team Continue with IV hydration Continue with vitamin B12 replacement therapy Continue with oral Lasix Several consultants on the case including neurologist, supervisor sanding, furnace charger, GI (signed off, no GI coverage this week), infectious disease team and orthopedic team Labs and medication were reviewed.. Continue same treatment. Continue with symptomatic treatment. Resume home medication. Monitor labs and vitals. DVT and GI prophylaxis. Further recommendations as per clinical course of the patient DVT prophylaxis: Subcutaneous heparin GI Prophylaxis: Ppi PT/OT: Pending Prognosis is guarded
[2022-11-15] MEDS: SODIUM CHLORIDE 0.9% 1,000 ML IV SCH (12:20)
--- NOTE | 2022-11-15 12:20 | P.PN ---
Subjective Progress Note Date: 11/15/22 The patient is seen at bedside and feels he is doing about the same. Objective - Vital Signs Vital signs: Vital Signs Temp 95.9 F L 11/15/22 03:11 Pulse 58 L 11/15/22 08:55 Resp 16 11/15/22 08:55 BP 102/69 11/15/22 08:55 Pulse Ox 97 11/15/22 08:55 FiO2 Intake & Output 11/14/22 11/15/22 11/15/22 18:59 06:59 18:59 Intake Total 5 100 Output Total 325 Balance -320 100 Intake: IV 5 100 Invasive Line 4 5 100 Output: Urine 325 Other: Voiding Method Urinal Incontinent Incontinent Incontinent External Catheter External Catheter # Voids 3 1 - Exam GENERAL: The patient is laying in bed and is in minimal to mild acute distress. NEUROLOGICAL: Higher mental function: The patient is awake, alert, oriented to self, place and time. He is somewhat slow responding. Patient is following simple commands. No aphasia and no neglect. Cranial nerves: The pupils are round, equal and reactive to light and accommodat ion. Visual elder are full to confrontation throughout. Extraocular movement is intact no nystagmus is noted. Facial sensation is normal to touch throughout. The facial strength is normal throughout. Tongue is midline and moved [id number] without any difficulty. No dysarthria is noted. Shoulder shrug is normal bilaterally. Motor: The strength is limited but has very difficulty raising the right arm above gravity, strength in right upper is about 2 but has also edema in right arm region. Is able to raise left upper and right lower above gravity . Left Lower has difficulty raising above gravity since has DVT in lower. Sensation: Sensation is normal to touch throughout. Reflexes (right/left): 0-1+ throughout. Plantars are mute bilaterally. - Labs CBC & Chem 7: 11/15/22 09:49 11/15/22 09:49 Labs: Abnormal Lab Results - Last 24 Hours (Table) 11/14/22 11/15/22 11/15/22 Range/Units 14:21 09:49 09:49 WBC 14.2 H (3.8-10.6) k/uL RBC 2.48 L (4.30-5.90) m/uL Hgb 7.3 L (13.0-17.5) gm/dL Hct 24.4 L (39.0-53.0) % MCHC 30.0 L (31.0-37.0) g/dL Neutrophils # 11.4 H (1.3-7.7) k/uL Sodium 132 L (137-145) mmol/L Chloride 114 H (98-107) mmol/L Carbon Dioxide 13 L (22-30) mmol/L Glucose 190 H (74-99) mg/dL Calcium 7.5 L (8.4-10.2) mg/dL Ionized Calcium Shara 5.5 H (4.5-5.3) mg/dL Assessment and Plan Assessment: * Acute COVID infection with severe diarrhea for around 7-10 days. * Generalized weakness, slightly asymmetric. Etiology possibly multifactorial, probably related to electrolyte imbalance, with hypokalemia, hyponatremia, hypocalcemia, hypomagnesemia, copper deficiency as well B6 deficiency and very low normal B12. Patient's reflexes appears diminished and not sure exact cause: if due to degenerative cervical changes vs electrolyte/nutrition deficient vs ??GBS * Degenerative changes worse at C6-C7 seen on MRI * Vitamin B12 deficiency * Vitamin B6 deficient * Copper deficiency * DVT in left lower extremity and has swelling over the right arm concerning for DVT. * Paroxysmal atrial fibrillation * Alcoholism * Anemia Plan: * MRI of the cervical spine revealed significantly limited study secondary to motion. Within the limitation, there is at least moderate spinal canal stenosis at C5 6. Multilevel neural foraminal stenosis. Grade 1 anterolisthesis of C3 on C4. Degeneration changes worse at C6-C7 with the joint place edema. Orthopedic surgery is consulted. I spoke in detailed with Dr. Zheng on 11/14/22 and did not feel patient is a surgical candidate. He is started on Decadron 2gm every 6 hours By Orthopedic team. * For B6 deficient started 50mg 1 tab bid for now and then repeated level needs to be checked down the line. * Patient has evidence of vitamin B12 deficiency with B12 226 with low B12 and elevated methylmalonic acid 0.51. Patient started on vitamin B12 1000 g IM daily. * Calcium on presentation is 6.3 and currently is 7.5 (low). Ionized calcium: 5.5 which is slightly elevated. Ordered PTH and will defer management to primary team. * Hematology has seen the patient, ordered blood testing. * CPK < 20, B1 69, TSH normal. Folate 21.2. Serum protein electrophoresis and immunofixation electrophoresis showed no paraproteinemia * ESR is 34 and repeated is 20 which is slight high but is trending down. * For copper deficiency, would defer to hematology. * Patient also had an episode of paroxysmal atrial fibrillation. Cardiology has seen the patient, not recommending anticoagulation. From neurological perspective will defer use of ASA to primary team. Patient does not have stroke but was used for atrial fibrillation. * 2-D echo revealed left ventricular hypertrophy with normal left-ventricular systolic function with EF 55%. No obvious regional wall motion abnormalities. Left atrial size is normal. Mild to moderate mitral regurgitation. * PT and OT are consulted * I.D. team is on board. * DVT in left lower extremity and has swelling over the right arm concerning for DVT. * Will defer the rest of medical management to primary team. * He is on subq heparin for DVT prophylaxis. The plan is discussed with patient and his nurse. Will continue to follow. Time with Patient: Less than 30
--- NOTE | 2022-11-15 21:16 | P.PN ---
Subjective Progress Note Date: 11/15/22 Principal diagnosis: Covid 19 Patient is a 62-year-old male who is unvaccinated for COVID-19 patient was brought into the ER for evaluation of weakness no energy mention the patient was not able to get stand up and go to the bathroom patient has been dealing with the diarrhea off and on for couple of weeks, patient was noticed to have a positive covid test, however the patient was not hypoxic and CT abdominal pelvis with few bibasilar patchy groundglass opacity representing atelectasis and no evidence of colitis. On today's evaluation that is 11/15/2022, the patient remains to be afebrile, the patient is breathing comfortably on room air, The patient denies chest pain or shortness of breath, the patient cough has decreased in intensity and mostly dry in nature, the patient denies nausea no vomiting no abdominal pain and diarrhea has slowed down Objective - Vital Signs Vital signs: Vital Signs Temp 95.9 F L 11/15/22 03:11 Pulse 65 11/15/22 12:14 Resp 16 11/15/22 12:14 BP 106/72 11/15/22 12:14 Pulse Ox 97 11/15/22 12:14 FiO2 Intake & Output 11/14/22 11/15/22 11/15/22 18:59 06:59 18:59 Intake Total 5 100 590 Output Total 325 425 Balance -320 100 165 Intake: IV 5 100 Invasive Line 4 5 100 Intake, IV Titration 590 Amount Magnesium Sulfate-D5w Pmx 200 1 gm In Dextrose/Water 1 100ml.bag @ 100 mls/hr IVPB Q1H [facility] Rx#: [id number] Sodium Chloride 0.9% 1, 240 000 ml @ 75 mls/hr IV . [id number] [facility] Rx#:[id number] Sodium Ferric Gluconat- 100 Sucrose 125 mg In Sodium Chloride 0.9% 100 ml @ 100 mls/hr IVPB DAILY [facility] Rx#:[id number] cefTRIAXone 1 gm In 50 Sodium Chloride 0.9% 50 ml @ 100 mls/hr IVPB Q24HR [facility] Rx#:[id number] Output: Urine 325 425 Other: Voiding Method Urinal Incontinent Incontinent Incontinent External Catheter External Catheter # Voids 3 1 - Exam GENERAL DESCRIPTION: An elderly male lying in bed in no distress RESPIRATORY SYSTEM: Unlabored breathing , decreased breath sounds at bases HEART: S1 S2 regular rate and rhythm , ABDOMEN: Soft , no tenderness EXTREMITIES: No edema feet - Labs CBC & Chem 7: 11/15/22 09:49 11/15/22 09:49 Labs: Abnormal Lab Results - Last 24 Hours (Table) 11/15/22 11/15/22 Range/Units 09:49 09:49 WBC 14.2 H (3.8-10.6) k/uL RBC 2.48 L (4.30-5.90) m/uL Hgb 7.3 L (13.0-17.5) gm/dL Hct 24.4 L (39.0-53.0) % MCHC 30.0 L (31.0-37.0) g/dL Neutrophils # 11.4 H (1.3-7.7) k/uL Sodium 132 L (137-145) mmol/L Chloride 114 H (98-107) mmol/L Carbon Dioxide 13 L (22-30) mmol/L Glucose 190 H (74-99) mg/dL Calcium 7.5 L (8.4-10.2) mg/dL Assessment and Plan (1) COVID-19 Current Visit: Yes Status: Acute Priority: High Code(s): U07.1 - COVID-19 SNOMED Code(s): 800331305 (2) Diarrhea Current Visit: Yes Status: Acute Priority: High Code(s): R19.7 - DIARRHEA, UNSPECIFIED SNOMED Code(s): 96269463 Plan: 1patient present to hospital generalized weakness which is likely multifactorial could be related to his diarrhea has not patient did have significant diarrhea and evidence of prerenal status was low potassium, stool for C. diff is negative stool cultures has been obtained and currently pending, patient to continue Questran and advised to increase his probiotic and yogurt intake 2patient with a low-grade fever, the patient did have elevated pro calcitonin, CT angiogram of the chest was negative for PE however did shows right lower lobe infiltrate suspicious for pneumonia 3-patient fever has resolved, patient will continue with Rocephin and Zithromax, try to obtain sputum cultures to narrow his antibiotics 4-leukocytosis more likely related to the dexamethasone's and will be monitored closely Time with Patient: Less than 30
[2022-11-16] MEDS: HEPARIN SODIUM,PORCINE/PF 5,000 UNIT/0.5 ML SYRINGE SQ SCH ×3 (00:03→16:30)
[2022-11-16] MEDS: DEXAMETHASONE SOD PHOSPHATE 4 MG/ML 1 ML VIAL IVP SCH ×5 (00:03→23:57)
[2022-11-16] MEDS: SODIUM CHLORIDE 0.9% 1,000 ML IV SCH ×2 (06:20→16:29)
[2022-11-16] MEDS: LEVOTHYROXINE 50 MCG TAB PO SCH (06:21)
[2022-11-16 08:07] LABS: African American GFR (CKD) 85 (>60 ml/min/1.73 sqM); Anion Gap 3 mmol/L; Blood Urea Nitrogen 18 mg/dL (9-20); Calcium 7.6 mg/dL (8.4-10.2); Carbon Dioxide 16 mmol/L (22-30); Chloride 114 mmol/L (98-107); Glucose 129 mg/dL (74-99); Magnesium 1.8 mg/dL (1.6-2.3); Non-African American GFR(CKD) 73 (>60 ml/min/1.73 sqM); Potassium 5.8 mmol/L (3.5-5.1); Sodium 133 mmol/L (137-145)
[2022-11-16 08:12] LABS: Basophils % (A) 0 %; Eosinophils % (A) 0 %; HCT 24.9 % (39.0-53.0); HGB 7.5 gm/dL (13.0-17.5); Hypochromasia Marked; Lymphocytes # (A) 1.7 k/uL (1.0-4.8); Lymphocytes % (A) 11 %; MCH 29.3 pg (25.0-35.0); MCHC 30.1 g/dL (31.0-37.0); MCV 97.3 fL (80.0-100.0); Mean Platelet Volume 9.8; Monocytes # (A) 0.3 k/uL (0-1.0); Monocytes % (A) 2 %; Neutrophils # (A) 13.7 k/uL (1.3-7.7); Neutrophils % (A) 86 %; Platelet Count 352 k/uL (150-450); RBC 2.56 m/uL (4.30-5.90); RDW 15.2 % (11.5-15.5); WBC 15.9 k/uL (3.8-10.6)
--- NOTE | 2022-11-16 08:30 | P.PN ---
Subjective Progress Note Date: 11/16/22 Principal diagnosis: Bilateral upper extremity weakness; back pain Patient seen and examined this morning. Patient is resting in bed. He expresses increased mobility of his left upper extremity and bilateral lower extremities. Encouragement provided for patient to continue working with physical therapy. We will continue with Decadron 2 mg every 6 hours. Patient denies any pain at this time. He has been afebrile, denies nausea/vomiting, or chest pain. Objective - Vital Signs Vital signs: Vital Signs Temp 97.3 F L 11/16/22 03:41 Pulse 58 L 11/16/22 03:41 Resp 18 11/16/22 03:41 BP 110/70 11/16/22 03:41 Pulse Ox 96 11/16/22 03:41 FiO2 Intake & Output 11/15/22 11/16/22 11/16/22 18:59 06:59 18:59 Intake Total 830 Output Total 425 Balance 405 Intake: Intake, IV Titration 590 Amount Magnesium Sulfate-D5w Pmx 200 1 gm In Dextrose/Water 1 100ml.bag @ 100 mls/hr IVPB Q1H [facility] Rx#: [id number] Sodium Chloride 0.9% 1, 240 000 ml @ 75 mls/hr IV . [id number] [facility] Rx#:[id number] Sodium Ferric Gluconat- 100 Sucrose 125 mg In Sodium Chloride 0.9% 100 ml @ 100 mls/hr IVPB DAILY [facility] Rx#:[id number] cefTRIAXone 1 gm In 50 Sodium Chloride 0.9% 50 ml @ 100 mls/hr IVPB Q24HR [facility] Rx#:[id number] Oral 240 Output: Urine 425 Other: Voiding Method Incontinent External Catheter External Catheter # Voids 1 # Bowel Movements 1 1 - Exam Physical Examination General: The patient is awake and alert, in no acute distress Skin: Skin is warm and dry with no obvious rashes or lesions. Hairy patches absent, no dorsal skin dimples, no cafe au lait spots, and no surgical incisions. Eye: Pupils are equal, round and reactive to light, extra-ocular movements are intact; there is normal conjunctiva bilaterally. Neck: The neck is supple, there is no tenderness and ROM intact. Cardiovascular: There is a regular rate and rhythm. No murmur, rub or gallop is appreciated. Respiratory: Lungs are clear to auscultation, respirations are non-labored, breath sounds are equal. Gastrointestinal: Soft, non-distended, non-tender abdomen. Back: There is no tenderness to palpation in the midline, paralumbar, parathoracic or buttocks region. There is no obvious deformity . Musculoskeletal: ROM limited secondary to pain and stiffness from surgical procedure. Muscle strength in all major muscle groups of right upper extremity 3/5, left upper extremity 4/5, bilateral lower extremities 4-/5. Neurological: CN 2-12 intact. There are no obvious motor or sensory deficits. Movement and coordination equal and intact. Sensory exam to light touch intact C5-T1 and intact from L2-S1. Reflexes 2/4 in bilateral upper and lower extremities. Negative Hoffmans, babinski, and clonus signs. Psychiatric: Cooperative, appropriate mood & affect, normal judgment. - Labs CBC & Chem 7: 11/16/22 05:48 11/16/22 05:48 Labs: Abnormal Lab Results - Last 24 Hours (Table) 11/15/22 11/15/22 Range/Units 09:49 09:49 WBC 14.2 H (3.8-10.6) k/uL RBC 2.48 L (4.30-5.90) m/uL Hgb 7.3 L (13.0-17.5) gm/dL Hct 24.4 L (39.0-53.0) % MCHC 30.0 L (31.0-37.0) g/dL Neutrophils # 11.4 H (1.3-7.7) k/uL Sodium 132 L (137-145) mmol/L Chloride 114 H (98-107) mmol/L Carbon Dioxide 13 L (22-30) mmol/L Glucose 190 H (74-99) mg/dL Calcium 7.5 L (8.4-10.2) mg/dL Assessment and Plan Assessment: 1. Bilateral upper extremity weakness 2. Left knee pain Plan: Ordering repeat MRI with and without contrast cervical thoracic lumbar spine and CT of cervical spine spine due to movement, await results and will discuss plan of care. Recommend blood cultures Appreciate medical management Pain management - Tylenol DVT prophylaxis - heparin GI prophylaxis - Protonix; Tums PT/OT - weightbearing as tolerated with walker. Hard c-collar on when up and about Appreciate consult
[2022-11-16] MEDS: MAGNESIUM OXIDE 400 MG TAB PO SCH ×3 (09:08→20:08)
[2022-11-16] MEDS: CALCIUM CARBONATE 500 MG CHEWABLE PO SCH ×3 (09:08→20:08)
[2022-11-16] MEDS: ZINC SULFATE 220 MG CAP PO SCH (09:08)
[2022-11-16] MEDS: DILTIAZEM ORAL 30 MG TAB PO SCH ×3 (09:08→20:08)
[2022-11-16] MEDS: FOLIC ACID 1 MG TAB PO SCH (09:08)
[2022-11-16] MEDS: PYRIDOXINE 50 MG TAB PO SCH ×2 (09:08→20:08)
[2022-11-16] MEDS: THIAMINE 100 MG TAB PO SCH (09:08)
[2022-11-16] MEDS: FLUoxetine HCL 20 MG CAP PO SCH (09:08)
[2022-11-16] MEDS: CHOLECALCIFEROL 25 MCG (1000 IU) TABLET PO SCH (09:08)
[2022-11-16] MEDS: ASCORBIC ACID 500 MG TAB PO SCH ×2 (09:09→20:08)
[2022-11-16] MEDS: POTASSIUM CHLORIDE ER 20 MEQ TAB.ER PO SCH (09:09)
[2022-11-16] MEDS: FUROSEMIDE 20 MG TAB PO SCH ×2 (09:09→20:08)
[2022-11-16] MEDS: CHOLESTYRAMINE (WITH SUGAR) 4 GM PACKET PO SCH ×2 (09:11→17:09)
[2022-11-16] MEDS: PANTOPRAZOLE 40 MG/10 ML VIAL IVP SCH ×2 (09:12→20:07)
[2022-11-16] MEDS: CYANOCOBALAMIN 1,000 MCG/ML 1 ML VIAL IM SCH (09:12)
--- NOTE | 2022-11-16 10:18 | P.PN ---
Subjective Progress Note Date: 11/16/22 The patient is seen at bedside and feels about the same. Denies any worsening of his condition. Objective - Vital Signs Vital signs: Vital Signs Temp 97.3 F L 11/16/22 03:41 Pulse 62 11/16/22 09:55 Resp 18 11/16/22 09:55 BP 115/77 11/16/22 09:53 Pulse Ox 96 11/16/22 09:53 FiO2 Intake & Output 11/15/22 11/16/22 11/16/22 18:59 06:59 18:59 Intake Total 830 118 Output Total 425 Balance 405 118 Intake: Intake, IV Titration 590 Amount Magnesium Sulfate-D5w Pmx 200 1 gm In Dextrose/Water 1 100ml.bag @ 100 mls/hr IVPB Q1H [facility] Rx#: [id number] Sodium Chloride 0.9% 1, 240 000 ml @ 75 mls/hr IV . [id number] [facility] Rx#:[id number] Sodium Ferric Gluconat- 100 Sucrose 125 mg In Sodium Chloride 0.9% 100 ml @ 100 mls/hr IVPB DAILY [facility] Rx#:[id number] cefTRIAXone 1 gm In 50 Sodium Chloride 0.9% 50 ml @ 100 mls/hr IVPB Q24HR [facility] Rx#:[id number] Oral 240 118 Output: Urine 425 Other: Voiding Method Incontinent External Catheter External Catheter External Catheter # Voids 1 # Bowel Movements 1 1 - Exam GENERAL: The patient is laying in bed and is in minimal to mild acute distress. NEUROLOGICAL: Higher mental function: The patient is awake, alert, oriented to self, place and time. He is somewhat slow responding. Patient is following simple commands. No aphasia and no neglect. Cranial nerves: The pupils are round, equal and reactive to light and accommodation. Visual elder are full to confrontation throughout. Extraocular movement is intact no nystagmus is noted. Facial sensation is normal to touch throughout. The facial strength is normal throughout. Tongue is midline and moved [id number] without any difficulty. No dysarthria is noted. Shoulder shrug is normal bilaterally. Motor: The strength is limited but has very difficulty raising the right arm above gravity, strength in right upper is about 2 but has also edema in right arm region. Is able to raise left upper and right lower above gravity . Left Lower has difficulty raising above gravity since has DVT in lower. Sensation: Sensation is normal to touch throughout. Reflexes (right/left): 0-1+ throughout. Plantars are mute bilaterally. - Labs CBC & Chem 7: 11/16/22 05:48 11/16/22 05:48 Labs: Abnormal Lab Results - Last 24 Hours (Table) 11/15/22 11/16/22 11/16/22 Range/Units 09:49 05:48 05:48 WBC 15.9 H (3.8-10.6) k/uL RBC 2.56 L (4.30-5.90) m/uL Hgb 7.5 L (13.0-17.5) gm/dL Hct 24.9 L (39.0-53.0) % MCHC 30.1 L (31.0-37.0) g/dL Neutrophils # 13.7 H (1.3-7.7) k/uL Sodium 132 L 133 L (137-145) mmol/L Potassium 5.8 H (3.5-5.1) mmol/L Chloride 114 H 114 H (98-107) mmol/L Carbon Dioxide 13 L 16 L (22-30) mmol/L Glucose 190 H 129 H (74-99) mg/dL Calcium 7.5 L 7.6 L (8.4-10.2) mg/dL Assessment and Plan Assessment: * Acute COVID infection with severe diarrhea for around 7-10 days. * Generalized weakness, slightly asymmetric. Etiology possibly multifactorial, probably related to electrolyte imbalance, with hypokalemia, hyponatremia, hypocalcemia, hypomagnesemia, copper deficiency as well B6 deficiency and very low normal B12. Patient's reflexes appears diminished and not sure exact cause: if due to degenerative cervical changes vs electrolyte/nutrition deficient vs ??GBS (but feel less likely since has so many other factors that could have lead to his weakness of uppers as mention above but cannot be excluded). * Degenerative changes worse at C6-C7 seen on MRI * Vitamin B12 deficiency * Vitamin B6 deficient * Copper deficiency * DVT in left lower extremity and has swelling over the right arm concerning for DVT. * Paroxysmal atrial fibrillation * Alcoholism * Anemia Plan: * MRI of the cervical spine revealed significantly limited study secondary to motion. Within the limitation, there is at least moderate spinal canal s tenosis at C5 6. Multilevel neural foraminal stenosis. Grade 1 anterolisthesis of C3 on C4. Degeneration changes worse at C6-C7 with the joint place edema. Orthopedic surgery is on board and did not feel patient is a surgical candidate. * For B6 deficient started 50mg 1 tab bid for now and then repeated level needs to be checked down the line. * Patient has evidence of vitamin B12 deficiency with B12 226 with low B12 and elevated methylmalonic acid 0.51. Patient started on vitamin B12 1000 g IM daily. * Calcium is 7.5-7.6 (slightly low). Ionized calcium is 5.5 (slightly elevated). PTH: 20.7. Will defer work-up and management to primary team. * Hematology has seen the patient, ordered blood testing. * CPK < 20, B1 69, TSH normal. Folate 21.2. Serum protein electrophoresis and immunofixation electrophoresis showed no paraproteinemia. * For copper deficiency, would defer to hematology. * Patient also had an episode of paroxysmal atrial fibrillation. Cardiology has seen the patient, not recommending anticoagulation. From neurological perspective will defer use of ASA to primary team. Patient does not have stroke but was used for atrial fibrillation. * 2-D echo revealed left ventricular hypertrophy with normal left-ventricular systolic function with EF 55%. No obvious regional wall motion abnormalities. Left atrial size is normal. Mild to moderate mitral regurgitation. * PT and OT are consulted * I.D. team is on board. * DVT in left lower extremity and has swelling over the right arm concerning for DVT. * Will defer the rest of medical management to primary team. * He is on subq heparin for DVT prophylaxis. The plan is discussed with patient as well his nurse. Will continue to follow. Time with Patient: Less than 30
[2022-11-16] MEDS: SODIUM FERRIC GLUCONAT-SUCROSE 125 MG in SODIUM CHLORIDE 0.9% 100 ML IVPB SCH (10:21)
--- NOTE | 2022-11-16 11:36 | P.PN ---
Subjective 62-year-old male in the emergency department for diarrhea. She notes diarrhea starting and he asked progressively gotten worse. He reports he stood up from a chair and had an episode of diarrhea, admits he still maintains bowel function. He has not tried anything for his symptoms. He denies nausea, vomiting, abdominal pain, palpitations, fevers. Denies recent travel or recent antibiotic use. He is scheduled to have his first colonoscopy in january of 2023. Patient had an initial lab work is remarkable for WBC is 11.4, hemoglobin 8.7, INR 1.2, sodium 133, potassium 2.6 lactic acid 2.9, calcium 6.3, magnesium 0.8, lipase 60, COVID positive. I interpreted the following; CT abdomen without contrast remarkable for fluid filled colon without focal wall thickening or surrounding inflammatory changes. Patient was given 2 L fluids, potassium, magnesium and calcium during his course of the ED. 11/08/2022 Patient is seen and evaluated on selective care unit; he went into atrial fibrillation with rapid ventricular response he was transferred to the third floor/selective minute. The patient did not have any symptoms of heart racing or fluttering and no dizziness or lightheadedness and no presyncope or syncope and no symptoms of chest pain or chest discomfort or shortness of breath. No prior history of atrial fibrillation. 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 Beside that no history of diabetes or hypertension or dyslipidemia. The patient was started initially on Cardizem drip but his pressure did go down and for that reason he was switched into amiodarone IV and subsequently con verted to normal sinus mechanism and since then he has been maintaining normal sinus mechanism. Further investigation was performed including CBC and that showed a hemoglobin of 7.7. The patient has no history of bleeding. Beside that he underwent a computed tomography scan of the abdomen and pelvis because of the abdominal discomfort that showed no acute abnormalities. The troponin came in to be slightly elevated likely secondary to tachycardia. The EKG showed sinus rhythm now with no significant ST or T-wave abnormalities. Blood work reveals mild elevation of troponin; Patient has been evaluated by cardiology and recommended to continue with IV fluids, replace electrolytes; IV amiodarone is to be discontinued patient is transition to oral dose daily 11/09/2022 Patient is seen and evaluated in follow-up this morning and continues to feel generalized weakness and continues with loose stools. Per nursing staff when assisting to clean the patient up patient was significantly weak on the right. Patient denied any headache, dizziness, or lightheadedness. Will obtain a CT of the brain and also consult neurology. Recommend PT/OT therapy evaluation for significant weakness. C. diff testing was negative on the stool and will add Imodium and encourage oral intake and advance as tolerated. Patient is maintaining on vitamins and zinc supplements along with subcutaneous heparin with anxiety following closely. Patient denies chest pain or shortness of breath. Afebrile. Recommend a.m. labs as well. 11/10/2022 Patient is seen in follow-up today with multiple medical consultations including cardiology, hematology, infectious disease, and now neurology following. Patien t with significant weakness in all upper and lower extremities with neurology undergoing workup recommending aspirin as patient is not on any anticoagulation at this time. Cardiology is following and patient was transitioned back to IV Cardizem although being changed to oral with close monitoring. Magnesium found to be significantly low at 1.2 and will replace per protocol and recommend repeat labs. Hemoglobin is mildly low at 7.4 and undergoing anemia workup with hematology following. Patient with Covid and extreme weakness will need ECF and discharge planning in process. Recommend close monitoring of labs and replace electrolytes per protocol. Patient was started on Imodium as C. diff testing 2 was negative. Patient continues to have loose stools although somewhat improved. Encouraged oral intake and increased activity as tolerated. Recommend PT/OT therapy daily. Patient denies chest pain or shortness of breath. Patient is 97% on room air. Patient will continue on vitamin and zinc supplements with anxiety following closely. Recommend gentle IV hydration. 11/11/2022 Patient is seen and evaluated in follow-up with multiple medical consultations following including infectious disease and neurology. Oncology following undergoing anemia workup. Hemoglobin was found to be 6.5 today and will order 1 unit of PRBC and recommend close monitoring. No active bleeding noted. Patient was started on baby aspirin per neurology and scheduled to undergo MRI of the cervical spine today. Patient continues with significant weakness and will need rehab upon discharge. Patient is maintained on vitamin and zinc supplements and was also being followed by cardiology. Adjustments to medications being done and patient is on oral Cardizem. Will follow-up with repeat labs. Patient is afebrile and denies shortness of breath. Patient clinically appears to be improving. Per nursing staff patient is incontinent of stool in continues to be somewhat loose although less frequent. C. diff testing was negative and stool cultures are negative. Encouraged oral intake. Will discuss with case management about discharge planning to ECF as he will require a Covid hub. 11/12/2022 Patient is seen and evaluated in follow-up today with multiple medical consultations following including infectious disease, cardiology, neurology. Patient's hemoglobin is low again at 6.8 and will give 1 unit. Recommend holding aspirin. Patient did have an elevated d-dimer and CTA was ordered. GI was also consulted for anemia. Patient continues to have incontinence of stool and loose stools and is maintained on Questran and will be given Imodium as needed. Patient continues with generalized weakness and fatigue and also having some lower extremity pain and swelling and have ordered Dopplers of bilateral lower extremities as well. Patient with Covid vitamin and zinc supplements and anticoagulation with subcu heparin. Hematology also following for anemia. Recommend repeat CBC this evening and will transfuse another unit as well. Cardiology following and adjustments to medications being made and patient also being started on low-dose diuretics. Patient is having low-grade temps of 99.3- 99.6 and patient continues to be 95% or above on room air. Blood pressure on the lower side although stable. Stool cultures and C. diff testing have been negative. Patient started on antibiotics per ID recommendations in the form of Zithromax and ceftriaxone. Reviewed iron studies which are low and will give IV iron as well. Electrolytes continue to be low and will replace per protocol. Patient will need ECF once stabilized and discharged 11/13/2022 Patient is seen today with multiple medical consultations following and undergoing neurological workup and having bilateral upper and lower extremity weakness. Neurology recommends orthopedic consultation which is currently pending. Patient did have some movement in his diarrhea and reports becoming more formed and less frequent. Patient continues to be incontinent of this. Patient being started on antibiotics with anxiety following an also continues to have anemia. GI recommending continuing with hematology workup. Multiple images including MRIs and pending at time. Patient with significant weakness will be going to rehab when stable. A.m. labs are pending. 11/14/2022 This is a pleasant 62 years old male with Covid pneumonia and bacterial pneumonia especially in the right lower lobe. His been covered with Zithromax and ceftriaxone with ID team and pulmonary team on the case. His breathing looks improvement, now much tachypnea or dyspnea. She is complaining of from bilateral upper extremity weakness, MRI ordered by orthopedic team showing spinal stenosis of C5 to C6 with possible osteo-discitis of L3-L4 and orthopedic team R following closely. Also he is on dexamethasone Patient had ultrasound of the legs showing no DVT on the right leg with non- occlusive thrombosis of the left leg. Hematology team are currently following with and he is patient on subcutaneous heparin. Patient still have diarrhea about 3 times per day yesterday no abdominal pain or vomiting. Patient currently on Zithromax and ceftriaxone, oral Lasix and normal saline 75 mL/h 11/15/2022 Patient Covid pneumonia is improving and he has minimal respiratory symptoms, no dyspnea at rest, patient is not working, no chest pain, occasional coughing, he is saturating well and he continued on treatment with dexamethasone which is helping also has a spine disease as he has C5-C6 stenosis orthopedic team on the case, no surgical intervention Also his continued on Zithromax and ceftriaxone for his pneumonia with ID team on the case. Patient has left leg swelling most likely secondary to nonocclusive DVT however patient could not get anticoagulation because of his severe anemia, hematology input is appreciated, anticoagulation has more risks than benefits. We are going to check occult blood in the stool, hemoglobin today slightly going down 7.3. However anemia workup showing some evidence of anemia of chronic disease patient also with A. fib but no need for intervention for this purpose as her score 0. Manager Quality. 11/16/2022 Patient still has bilateral upper extremity weakness mainly on the right side, thought secondary to C5-C6 is stenosis with no plan for surgical intervention by orthopedic team. Patient also on dexamethasone for Covid pneumonia and Zithromax ceftriaxone for possible bacterial superinfection especially in the right lower lobe. Her saturation is acceptable. Blood pressure is stable low-normal. There is no evidence of bleeding, occult blood in the stool is negative. Patient has evidence of left DVT, his anemia although severe as most likely secondary to anemia of chronic disease, repeat anemia workup was requested, I discussed the case with hematology team, possibly we will start him on anticoagulation once workup is finished. No need for anticoagulation or aspirin for A. fib per Manager Quality. No need for aspirin also per neurologist. Objective - Vital Signs Vital signs: Vital Signs Temp 97.3 F L 11/16/22 03:41 Pulse 62 11/16/22 09:55 Resp 18 11/16/22 09:55 BP 115/77 11/16/22 09:53 Pulse Ox 96 11/16/22 09:53 FiO2 Intake & Output 11/15/22 11/16/22 11/16/22 18:59 06:59 18:59 Intake Total 830 118 Output Total 425 Balance 405 118 Weight 97.522 kg Intake: Intake, IV Titration 590 Amount Magnesium Sulfate-D5w Pmx 200 1 gm In Dextrose/Water 1 100ml.bag @ 100 mls/hr IVPB Q1H [facility] Rx#: [id number] Sodium Chloride 0.9% 1, 240 000 ml @ 75 mls/hr IV . [id number] [facility] Rx#:[id number] Sodium Ferric Gluconat- 100 Sucrose 125 mg In Sodium Chloride 0.9% 100 ml @ 100 mls/hr IVPB DAILY [facility] Rx#:[id number] cefTRIAXone 1 gm In 50 Sodium Chloride 0.9% 50 ml @ 100 mls/hr IVPB Q24HR [facility] Rx#:[id number] Oral 240 118 Output: Urine 425 Other: Voiding Method Incontinent External Catheter External Catheter External Catheter # Voids 1 # Bowel Movements 1 1 - Exam -GENERAL: The patient is alert and oriented x3, not in any acute distress. Well developed, well nourished. Generally weak -HEENT: Pupils are round and equally reacting to light. EOMI. No scleral icterus. No conjunctival pallor. Normocephalic, atraumatic. No pharyngeal erythema. No thyromegaly. Dry mucous membranes, mild CARDIOVASCULAR: S1 and S2 present. No murmurs, rubs, or gallops. PULMONARY: Chest is clear to auscultation, no wheezing or crackles. ABDOMEN: Soft, nontender, nondistended, normoactive bowel sounds. No palpable organomegaly. MUSCULOSKELETAL: No joint swelling or deformity. -EXTREMITIES: No cyanosis, clubbing, or pedal edema. left leg swelling NEUROLOGICAL: Gross neurological examination did not reveal any focal deficits. SKIN: No rashes. no petechiae. - Labs CBC & Chem 7: 11/16/22 05:48 11/16/22 05:48 Labs: Abnormal Lab Results - Last 24 Hours (Table) 11/16/22 11/16/22 Range/Units 05:48 05:48 WBC 15.9 H (3.8-10.6) k/uL RBC 2.56 L (4.30-5.90) m/uL Hgb 7.5 L (13.0-17.5) gm/dL Hct 24.9 L (39.0-53.0) % MCHC 30.1 L (31.0-37.0) g/dL Neutrophils # 13.7 H (1.3-7.7) k/uL Sodium 133 L (137-145) mmol/L Potassium 5.8 H (3.5-5.1) mmol/L Chloride 114 H (98-107) mmol/L Carbon Dioxide 16 L (22-30) mmol/L Glucose 129 H (74-99) mg/dL Calcium 7.6 L (8.4-10.2) mg/dL Assessment and Plan Assessment: Bilateral: Pneumonia with superimposed gram-negative bacterial infection is suspected mainly in the right lower lobe Acute hypoxic respiratory failure Sepsis secondary to above Anemia with vitamin B12 deficiency and currently on IM B12 replacement therapy Elevated troponin, most likely type II. No chest pain, normal LV function Low vitamin B12 and B6 Nonocclusive thrombosis of the left leg Paroxysmal atrial fibrillation no anticoagulation with score of 0 per Manager Quality Plan: continue with antibiotic, currently on Zithromax and ceftriaxone Continue with dexamethasone per orthopedic team Continue with IV hydration Continue with vitamin B12 replacement therapy Continue with oral Lasix No need for surgical intervention per orthopedic team May start anticoagulation per hematology team Several consultants on the case including neurologist, computer software engineer, drive in theater attendant, GI (signed off, no GI coverage this week), infectious disease team and orthopedic team Labs and medication were reviewed.. Continue same treatment. Continue with symptomatic treatment. Resume home medication. Monitor labs and vitals. DVT and GI prophylaxis. Further recommendations as per clinical course of the patient DVT prophylaxis: Subcutaneous heparin GI Prophylaxis: Ppi PT/OT: Pending Prognosis is guarded
[2022-11-16] MEDS ORDERED: SODIUM ZIRCONIUM CYCLOSILICATE 10 GM PACKET PO ONE (11:37)
[2022-11-16 15:38] LABS: % Iron Saturation 84.03 (15.00-50.00); Iron 104 ug/dL (65-175); Total Iron Binding Capacity 124 ug/dL (228-460)
[2022-11-16 16:08] LABS: Vitamin B12 >3600.0 pg/mL (200.0-944.0)
[2022-11-16] MEDS ORDERED: HEPARIN SODIUM 1,000 UN/ML (10ML VL) IV ONE (16:34)
[2022-11-16 16:51] LABS: Glucose,Whole Blood 262 mg/dL (70-110)
[2022-11-16 17:08] LABS: Basophils % (A) 0 %; Eosinophils % (A) 0 %; HCT 25.3 % (39.0-53.0); HGB 7.8 gm/dL (13.0-17.5); Hypochromasia Marked; Lymphocytes # (A) 1.3 k/uL (1.0-4.8); Lymphocytes % (A) 9 %; MCH 29.8 pg (25.0-35.0); MCHC 30.7 g/dL (31.0-37.0); MCV 97.1 fL (80.0-100.0); Mean Platelet Volume 9.2; Monocytes # (A) 0.5 k/uL (0-1.0); Monocytes % (A) 3 %; Neutrophils # (A) 13.3 k/uL (1.3-7.7); Neutrophils % (A) 87 %; Platelet Count 324 k/uL (150-450); WBC 15.3 k/uL (3.8-10.6)
[2022-11-16] MEDS: HEPARIN SOD,PORK IN 0.45% NACL 25,000 UNIT in 0.45% NACL 1 250ML.BAG IV SCH (17:10)
--- NOTE | 2022-11-16 17:14 | P.PN ---
Subjective Progress Note Date: 11/16/22 Principal diagnosis: anemia Pt in f/u is more cooperative and clm today, he feels he does not know what is going on. He has no resp symptoms. Denies any bleeding to report. Hgb stable since unit of blood Objective - Vital Signs Vital signs: Vital Signs Temp 97.3 F L 11/16/22 03:41 Pulse 58 L 11/16/22 03:41 Resp 18 11/16/22 03:41 BP 110/70 11/16/22 03:41 Pulse Ox 96 11/16/22 03:41 FiO2 Intake & Output 11/15/22 11/16/22 11/16/22 18:59 06:59 18:59 Intake Total 830 118 Output Total 425 Balance 405 118 Intake: Intake, IV Titration 590 Amount Magnesium Sulfate-D5w Pmx 200 1 gm In Dextrose/Water 1 100ml.bag @ 100 mls/hr IVPB Q1H [facility] Rx#: [id number] Sodium Chloride 0.9% 1, 240 000 ml @ 75 mls/hr IV . [id number] [facility] Rx#:[id number] Sodium Ferric Gluconat- 100 Sucrose 125 mg In Sodium Chloride 0.9% 100 ml @ 100 mls/hr IVPB DAILY [facility] Rx#:[id number] cefTRIAXone 1 gm In 50 Sodium Chloride 0.9% 50 ml @ 100 mls/hr IVPB Q24HR [facility] Rx#:[id number] Oral 240 118 Output: Urine 425 Other: Voiding Method Incontinent External Catheter External Catheter # Voids 1 # Bowel Movements 1 1 - Constitutional General appearance: Present: average body habitus, cooperative, no acute distress - EENT Eyes: Present: anicteric sclerae, EOMI ENT: Present: hearing grossly normal - Respiratory Respiratory: bilateral: diminished - Cardiovascular Rhythm: regular Heart sounds: normal: S1, S2 Abnormal Heart Sounds: Absent: systolic murmur, diastolic murmur, rub, S3 Gallop, S4 Gallop, click, other - Peripheral edema leg Peripheral Edema: right: None, left: 2+, Pitting - Gastrointestinal General gastrointestinal: Present: normal bowel sounds - Integumentary Integumentary: Present: pale - Neurologic Neurologic: Present: CNII-XII intact - Musculoskeletal Musculoskeletal: Present: generalized weakness, strength equal bilaterally - Psychiatric Psychiatric: Present: A&O x's 3, appropriate affect, intact judgment & insight - Labs CBC & Chem 7: 11/16/22 05:48 11/16/22 05:48 Labs: Abnormal Lab Results - Last 24 Hours (Table) 11/15/22 11/15/22 11/16/22 Range/Units 09:49 09:49 05:48 WBC 14.2 H (3.8-10.6) k/uL RBC 2.48 L (4.30-5.90) m/uL Hgb 7.3 L (13.0-17.5) gm/dL Hct 24.4 L (39.0-53.0) % MCHC 30.0 L (31.0-37.0) g/dL Neutrophils # 11.4 H (1.3-7.7) k/uL Sodium 132 L 133 L (137-145) mmol/L Potassium 5.8 H (3.5-5.1) mmol/L Chloride 114 H 114 H (98-107) mmol/L Carbon Dioxide 13 L 16 L (22-30) mmol/L Glucose 190 H 129 H (74-99) mg/dL Calcium 7.5 L 7.6 L (8.4-10.2) mg/dL 11/16/22 Range/Units 05:48 WBC 15.9 H (3.8-10.6) k/uL RBC 2.56 L (4.30-5.90) m/uL Hgb 7.5 L (13.0-17.5) gm/dL Hct 24.9 L (39.0-53.0) % MCHC 30.1 L (31.0-37.0) g/dL Neutrophils # 13.7 H (1.3-7.7) k/uL Sodium (137-145) mmol/L Potassium (3.5-5.1) mmol/L Chloride (98-107) mmol/L Carbon Dioxide (22-30) mmol/L Glucose (74-99) mg/dL Calcium (8.4-10.2) mg/dL Assessment and Plan (1) Normocytic normochromic anemia Current Visit: Yes Status: Acute Priority: High Code(s): D64.9 - ANEMIA, UNSPECIFIED SNOMED Code(s): 17229306 (2) COVID-19 Current Visit: Yes Status: Acute Priority: High Code(s): U07.1 - COVID-19 SNOMED Code(s): 956583103 (3) Left leg DVT Current Visit: Yes Status: Acute Priority: High Code(s): I82.402 - ACUTE EMBOLISM AND THOMBOS UNSP DEEP VEINS OF L LOW EXTREM SNOMED Code(s): 592750981 Plan: Normocytic, normochromic anemia, anemia of inflammation, and hx of gastric bypass, also acute covid. Ferritin 1230 today (847 on 11/08/22), and iron saturation 84.03%, after receiving blood transfusion on 11/12/22. Ferritin increased from labs from 11/08/22, low concern for bleeding/blood loss. Doppler studies 11/12/22 showed DVT in left calf. Patient will be started on low- intensity IV heparin. He has numerous risk factors including prolonged bed rest, COVID-19 infection and concurrent hospitalization. Celso phospholipid ab panel, oral coag recs to follow. Continue parenteral B12. Pt reports sister brought copper supplementation to hospital. Will f/u with nursing staff to have medication checked by pharmacy so can be dispensed and administered to patient.
[2022-11-16 17:26] LABS: Cardiolipin Ab IgG Interp NEGATIVE (NEGATIVE); Cardiolipin Ab IgM Interp NEGATIVE (NEGATIVE); Cardiolipin IgA Antibody 7.4 U/mL; Cardiolipin IgM Antibody 1.5 U/mL
[2022-11-16 17:27] LABS: Partial Thromboplastin Time 36.6 sec (22.0-30.0); Prothrombin Time 10.5 sec (9.0-12.0)
[2022-11-16] MEDS ORDERED: DEXTROSE 50% SYRINGE 50 ML IVP PRN ×2 (18:15)
[2022-11-16 19:59] LABS: Glucose,Whole Blood 223 mg/dL (70-110)
[2022-11-16] MEDS: INSULIN ASPART (NovoLOG) 100 UNIT/ML VIAL SQ SCH (20:07)
--- NOTE | 2022-11-16 22:38 | P.PN ---
Subjective Progress Note Date: 11/16/22 Principal diagnosis: Covid 19 Patient is a 62-year-old male who is unvaccinated for COVID-19 patient was brought into the ER for evaluation of weakness no energy mention the patient was not able to get stand up and go to the bathroom patient has been dealing with the diarrhea off and on for couple of weeks, patient was noticed to have a positive covid test, however the patient was not hypoxic and CT abdominal pelvis with few bibasilar patchy groundglass opacity representing atelectasis and no evidence of colitis. On today's evaluation that is 11/16/2022, the patient continues to be afebrile, the patient is breathing comfortably on room air, The patient denies chest pain or shortness of breath, the patient cough has decreased in intensity and not bringing up any sputum, the patient denies nausea no vomiting no abdominal pain and diarrhea has improved Objective - Vital Signs Vital signs: Vital Signs Temp 97.0 F L 11/16/22 12:09 Pulse 79 11/16/22 12:09 Resp 18 11/16/22 12:09 BP 128/75 11/16/22 12:09 Pulse Ox 98 11/16/22 12:09 FiO2 Intake & Output 11/15/22 11/16/22 11/16/22 18:59 06:59 18:59 Intake Total 830 118 Output Total 425 Balance 405 118 Weight 97.522 kg Intake: Intake, IV Titration 590 Amount Magnesium Sulfate-D5w Pmx 200 1 gm In Dextrose/Water 1 100ml.bag @ 100 mls/hr IVPB Q1H [facility] Rx#: [id number] Sodium Chloride 0.9% 1, 240 000 ml @ 75 mls/hr IV . [id number] [facility] Rx#:[id number] Sodium Ferric Gluconat- 100 Sucrose 125 mg In Sodium Chloride 0.9% 100 ml @ 100 mls/hr IVPB DAILY [facility] Rx#:[id number] cefTRIAXone 1 gm In 50 Sodium Chloride 0.9% 50 ml @ 100 mls/hr IVPB Q24HR [facility] Rx#:[id number] Oral 240 118 Output: Urine 425 Other: Voiding Method Incontinent External Catheter External Catheter External Catheter # Voids 1 # Bowel Movements 1 1 - Exam GENERAL DESCRIPTION: An elderly male lying in bed in no distress RESPIRATORY SYSTEM: Unlabored breathing , decreased breath sounds at bases HEART: S1 S2 regular rate and rhythm , ABDOMEN: Soft , no tenderness EXTREMITIES: No edema feet - Labs CBC & Chem 7: 11/16/22 16:50 11/16/22 05:48 Labs: Abnormal Lab Results - Last 24 Hours (Table) 11/16/22 11/16/22 Range/Units 05:48 05:48 WBC 15.9 H (3.8-10.6) k/uL RBC 2.56 L (4.30-5.90) m/uL Hgb 7.5 L (13.0-17.5) gm/dL Hct 24.9 L (39.0-53.0) % MCHC 30.1 L (31.0-37.0) g/dL Neutrophils # 13.7 H (1.3-7.7) k/uL Sodium 133 L (137-145) mmol/L Potassium 5.8 H (3.5-5.1) mmol/L Chloride 114 H (98-107) mmol/L Carbon Dioxide 16 L (22-30) mmol/L Glucose 129 H (74-99) mg/dL Calcium 7.6 L (8.4-10.2) mg/dL Assessment and Plan (1) COVID-19 Current Visit: Yes Status: Acute Priority: High Code(s): U07.1 - COVID-19 SNOMED Code(s): 634006835 (2) Diarrhea Current Visit: Yes Status: Acute Priority: High Code(s): R19.7 - DIARRHEA, UNSPECIFIED SNOMED Code(s): 76786400 Plan: 1patient present to hospital generalized weakness which is likely multifactorial could be related to his diarrhea has not patient did have signifi cant diarrhea and evidence of prerenal status was low potassium, stool for C. diff is negative stool cultures has been obtained and currently pending, patient to continue Questran and advised to increase his probiotic and yogurt intake 2patient with a low-grade fever, the patient did have elevated pro calcitonin, CT angiogram of the chest was negative for PE however did shows right lower lobe infiltrate suspicious for pneumonia 3-patient fever has resolved, patient has shown clinical improvement, patient will continue with Rocephin and RN has been advised to obtain sputum cultures to narrow his antibiotics 4-leukocytosis more likely related to the dexamethasone and will be monitored closely
[2022-11-17 06:06] LABS: Glucose,Whole Blood 172 mg/dL (70-110)
[2022-11-17] MEDS: DEXAMETHASONE SOD PHOSPHATE 4 MG/ML 1 ML VIAL IVP SCH ×3 (07:02→17:46)
[2022-11-17] MEDS: LEVOTHYROXINE 50 MCG TAB PO SCH (07:02)
[2022-11-17] MEDS: INSULIN ASPART (NovoLOG) 100 UNIT/ML VIAL SQ SCH ×4 (07:03→20:46)
[2022-11-17] MEDS: SODIUM CHLORIDE 0.9% 1,000 ML IV SCH ×2 (07:03→17:46)
--- NOTE | 2022-11-17 07:55 | P.PN ---
Subjective Progress Note Date: 11/17/22 Principal diagnosis: Bilateral upper extremity weakness; back pain Patient seen and examined this morning. Patient is resting in bed. He denies any pain at this time. He has been afebrile, denies nausea/vomiting, or chest pain. Informed patient that we are awaiting MRI results to develop a more prominent plan of care. Objective - Vital Signs Vital signs: Vital Signs Temp 97.4 F L 11/17/22 04:00 Pulse 64 11/17/22 04:00 Resp 18 11/17/22 04:00 BP 125/79 11/17/22 04:00 Pulse Ox 98 11/17/22 04:00 FiO2 Intake & Output 11/16/22 11/17/22 11/17/22 18:59 06:59 18:59 Intake Total 476 70.667 Output Total 1400 Balance 476 -1329.333 Weight 97.522 kg 116.5 kg Intake: Intake, IV Titration 70.667 Amount Heparin Sod,Pork in 0.45% 70.667 NaCl 25,000 unit In 0.45 % NaCl 1 250ml.bag @ 10. 254 UNITS/KG/HR 10 mls/hr IV .Q24H [facility] Rx#: [id number] Oral 476 Output: Urine 1400 Other: Voiding Method External Catheter External Catheter # Voids 2 # Bowel Movements 1 1 - Exam Physical Examination General: The patient is awake and alert, in no acute distress Skin: Skin is warm and dry with no obvious rashes or lesions. Hairy patches absent, no dorsal skin dimples, no cafe au lait spots, and no surgical incisions. Eye: Pupils are equal, round and reactive to light, extra-ocular movements are intact; there is normal conjunctiva bilaterally. Neck: The neck is supple, there is no tenderness and ROM intact. Cardiovascular: There is a regular rate and rhythm. No murmur, rub or gallop is appreciated. Respiratory: Lungs are clear to auscultation, respirations are non-labored, breath sounds are equal. Gastrointestinal: Soft, non-distended, non-tender abdomen. Back: There is no tenderness to palpation in the midline, paralumbar, parathoracic or buttocks region. There is no obvious deformity . Musculoskeletal: ROM limited secondary to pain and stiffness from surgical proce dure. Muscle strength in all major muscle groups of right upper extremity 3/5, left upper extremity 4/5, bilateral lower extremities 4-/5. Neurological: CN 2-12 intact. There are no obvious motor or sensory deficits. Movement and coordination equal and intact. Sensory exam to light touch intact C 5-T1 and intact from L2-S1. Reflexes 2/4 in bilateral upper and lower extremities. Negative Hoffmans, babinski, and clonus signs. Psychiatric: Cooperative, appropriate mood & affect, normal judgment. - Labs CBC & Chem 7: 11/16/22 16:50 11/16/22 05:48 Labs: Abnormal Lab Results - Last 24 Hours (Table) 11/11/22 11/16/22 11/16/22 Range/Units 16:24 05:48 05:48 WBC 15.9 H (3.8-10.6) k/uL RBC 2.56 L (4.30-5.90) m/uL Hgb 7.5 L (13.0-17.5) gm/dL Hct 24.9 L (39.0-53.0) % MCHC 30.1 L (31.0-37.0) g/dL Neutrophils # 13.7 H (1.3-7.7) k/uL APTT (22.0-30.0) sec Sodium 133 L (137-145) mmol/L Potassium 5.8 H (3.5-5.1) mmol/L Chloride 114 H (98-107) mmol/L Carbon Dioxide 16 L (22-30) mmol/L Glucose 129 H (74-99) mg/dL POC Glucose (mg/dL) (70-110) mg/dL Calcium 7.6 L (8.4-10.2) mg/dL TIBC 124 L (228-460) ug/dL % Saturation 84.03 H (15.00-50.00) Transferrin 88.4 L (204.0-354.0) mg/dL Ferritin 1230.0 H (22.0-322.0) ng/mL Vitamin B12 >3600.0 H (200.0-944.0) pg/mL Crossmatch See Detail 11/16/22 11/16/22 11/16/22 Range/Units 16:50 16:50 16:50 WBC 15.3 H (3.8-10.6) k/uL RBC 2.60 L (4.30-5.90) m/uL Hgb 7.8 L (13.0-17.5) gm/dL Hct 25.3 L (39.0-53.0) % MCHC 30.7 L (31.0-37.0) g/dL Neutrophils # 13.3 H (1.3-7.7) k/uL APTT 36.6 H (22.0-30.0) sec Sodium (137-145) mmol/L Potassium (3.5-5.1) mmol/L Chloride (98-107) mmol/L Carbon Dioxide (22-30) mmol/L Glucose (74-99) mg/dL POC Glucose (mg/dL) 262 H (70-110) mg/dL Calcium (8.4-10.2) mg/dL TIBC (228-460) ug/dL % Saturation (15.00-50.00) Transferrin (204.0-354.0) mg/dL Ferritin (22.0-322.0) ng/mL Vitamin B12 (200.0-944.0) pg/mL Crossmatch 11/16/22 11/16/22 11/17/22 Range/Units 19:53 22:52 06:04 WBC (3.8-10.6) k/uL RBC (4.30-5.90) m/uL Hgb (13.0-17.5) gm/dL Hct (39.0-53.0) % MCHC (31.0-37.0) g/dL Neutrophils # (1.3-7.7) k/uL APTT >200.0 H* (22.0-30.0) sec Sodium (137-145) mmol/L Potassium (3.5-5.1) mmol/L Chloride (98-107) mmol/L Carbon Dioxide (22-30) mmol/L Glucose (74-99) mg/dL POC Glucose (mg/dL) 223 H 172 H (70-110) mg/dL Calcium (8.4-10.2) mg/dL TIBC (228-460) ug/dL % Saturation (15.00-50.00) Transferrin (204.0-354.0) mg/dL Ferritin (22.0-322.0) ng/mL Vitamin B12 (200.0-944.0) pg/mL Crossmatch Assessment and Plan Assessment: 1. Bilateral upper extremity weakness 2. Left knee pain Plan: Awaiting MRI of the cervical, thoracic, and lumbar spine to be performed. Recommend blood cultures Appreciate medical management Pain management - Tylenol DVT prophylaxis - heparin gtt GI prophylaxis - Protonix; Tums PT/OT - weightbearing as tolerated with walker. Appreciate consult
[2022-11-17] MEDS: ASCORBIC ACID 500 MG TAB PO SCH ×2 (08:12→20:46)
[2022-11-17] MEDS: FLUoxetine HCL 20 MG CAP PO SCH (08:12)
[2022-11-17] MEDS: ZINC SULFATE 220 MG CAP PO SCH (08:12)
[2022-11-17] MEDS: DILTIAZEM ORAL 30 MG TAB PO SCH ×3 (08:12→20:46)
[2022-11-17] MEDS: CHOLECALCIFEROL 25 MCG (1000 IU) TABLET PO SCH (08:12)
[2022-11-17] MEDS: CALCIUM CARBONATE 500 MG CHEWABLE PO SCH ×3 (08:12→20:46)
[2022-11-17] MEDS: FOLIC ACID 1 MG TAB PO SCH (08:12)
[2022-11-17] MEDS: THIAMINE 100 MG TAB PO SCH (08:12)
[2022-11-17] MEDS: MAGNESIUM OXIDE 400 MG TAB PO SCH (08:12)
[2022-11-17] MEDS: FUROSEMIDE 20 MG TAB PO SCH ×2 (08:12→20:46)
[2022-11-17] MEDS: CHOLESTYRAMINE (WITH SUGAR) 4 GM PACKET PO SCH ×2 (08:13→17:46)
[2022-11-17] MEDS: PANTOPRAZOLE 40 MG/10 ML VIAL IVP SCH ×2 (08:13→20:46)
[2022-11-17] MEDS: CYANOCOBALAMIN 1,000 MCG/ML 1 ML VIAL IM SCH (08:13)
[2022-11-17] MEDS: PYRIDOXINE 50 MG TAB PO SCH ×2 (08:13→20:46)
[2022-11-17] MEDS: SODIUM FERRIC GLUCONAT-SUCROSE 125 MG in SODIUM CHLORIDE 0.9% 100 ML IVPB SCH (08:28)
[2022-11-17 08:57] LABS: Basophils % (A) 0 %; Eosinophils % (A) 0 %; HCT 25.2 % (39.0-53.0); HGB 7.7 gm/dL (13.0-17.5); Hypochromasia Marked; Lymphocytes # (A) 1.4 k/uL (1.0-4.8); Lymphocytes % (A) 9 %; MCH 30.3 pg (25.0-35.0); MCHC 30.7 g/dL (31.0-37.0); MCV 98.7 fL (80.0-100.0); Mean Platelet Volume 9.3; Monocytes # (A) 0.5 k/uL (0-1.0); Monocytes % (A) 3 %; Neutrophils # (A) 13.1 k/uL (1.3-7.7); Neutrophils % (A) 87 %; Platelet Count 325 k/uL (150-450); RBC 2.55 m/uL (4.30-5.90)
[2022-11-17 09:06] LABS: Calcium 7.6 mg/dL (8.4-10.2)
[2022-11-17 09:21] LABS: Prothrombin Time 10.7 sec (9.0-12.0)
[2022-11-17 09:28] LABS: Potassium 6.1 mmol/L (3.5-5.1)
[2022-11-17] MEDS ORDERED: DEXTROSE 50% SYRINGE 50 ML IVP STA ×2 (09:36→21:58)
[2022-11-17] MEDS ORDERED: INSULIN REGULAR 100 UNIT/ML VIAL (IV) IV ONE ×2 (09:36→21:57)
[2022-11-17] MEDS ORDERED: SODIUM ZIRCONIUM CYCLOSILICATE 10 GM PACKET PO ONE (09:37)
[2022-11-17] MEDS ORDERED: CALCIUM GLUCONATE IN NACL 1 GM in SALINE 1 100ML.BAG IVPB ONE (09:45)
--- NOTE | 2022-11-17 10:42 | P.PN ---
Subjective 62-year-old male in the emergency department for diarrhea. She notes diarrhea starting and he asked progressively gotten worse. He reports he stood up from a chair and had an episode of diarrhea, admits he still maintains bowel function. He has not tried anything for his symptoms. He denies nausea, vomiting, abdominal pain, palpitations, fevers. Denies recent travel or recent antibiotic use. He is scheduled to have his first colonoscopy in january of 2023. Patient had an initial lab work is remarkable for WBC is 11.4, hemoglobin 8.7, INR 1.2, sodium 133, potassium 2.6 lactic acid 2.9, calcium 6.3, magnesium 0.8, lipase 60, COVID positive. I interpreted the following; CT abdomen without contrast remarkable for fluid filled colon without focal wall thickening or surrounding inflammatory changes. Patient was given 2 L fluids, potassium, magnesium and calcium during his course of the ED. 11/08/2022 Patient is seen and evaluated on selective care unit; he went into atrial fibrillation with rapid ventricular response he was transferred to the third floor/selective minute. The patient did not have any symptoms of heart racing or fluttering and no dizziness or lightheadedness and no presyncope or syncope and no symptoms of chest pain or chest discomfort or shortness of breath. No prior history of atrial fibrillation. No history of coronary artery disease or congestive heart failure or cardiac arrhythmia and the patient never seen a solution architect in the past. Beside that no history of diabetes or hypertension or dyslipidemia. The patient was started initially on Cardizem drip but his pressure did go down and for that reason he was switched into amiodarone IV and subsequently con verted to normal sinus mechanism and since then he has been maintaining normal sinus mechanism. Further investigation was performed including CBC and that showed a hemoglobin of 7.7. The patient has no history of bleeding. Beside that he underwent a computed tomography scan of the abdomen and pelvis because of the abdominal discomfort that showed no acute abnormalities. The troponin came in to be slightly elevated likely secondary to tachycardia. The EKG showed sinus rhythm now with no significant ST or T-wave abnormalities. Blood work reveals mild elevation of troponin; Patient has been evaluated by cardiology and recommended to continue with IV fluids, replace electrolytes; IV amiodarone is to be discontinued patient is transition to oral dose daily 11/09/2022 Patient is seen and evaluated in follow-up this morning and continues to feel generalized weakness and continues with loose stools. Per nursing staff when assisting to clean the patient up patient was significantly weak on the right. Patient denied any headache, dizziness, or lightheadedness. Will obtain a CT of the brain and also consult neurology. Recommend PT/OT therapy evaluation for significant weakness. C. diff testing was negative on the stool and will add Imodium and encourage oral intake and advance as tolerated. Patient is maintaining on vitamins and zinc supplements along with subcutaneous heparin with anxiety following closely. Patient denies chest pain or shortness of breath. Afebrile. Recommend a.m. labs as well. 11/10/2022 Patient is seen in follow-up today with multiple medical consultations including cardiology, hematology, infectious disease, and now neurology following. Patien t with significant weakness in all upper and lower extremities with neurology undergoing workup recommending aspirin as patient is not on any anticoagulation at this time. Cardiology is following and patient was transitioned back to IV Cardizem although being changed to oral with close monitoring. Magnesium found to be significantly low at 1.2 and will replace per protocol and recommend repeat labs. Hemoglobin is mildly low at 7.4 and undergoing anemia workup with hematology following. Patient with Covid and extreme weakness will need ECF and discharge planning in process. Recommend close monitoring of labs and replace electrolytes per protocol. Patient was started on Imodium as C. diff testing 2 was negative. Patient continues to have loose stools although somewhat improved. Encouraged oral intake and increased activity as tolerated. Recommend PT/OT therapy daily. Patient denies chest pain or shortness of breath. Patient is 97% on room air. Patient will continue on vitamin and zinc supplements with anxiety following closely. Recommend gentle IV hydration. 11/11/2022 Patient is seen and evaluated in follow-up with multiple medical consultations following including infectious disease and neurology. Oncology following undergoing anemia workup. Hemoglobin was found to be 6.5 today and will order 1 unit of PRBC and recommend close monitoring. No active bleeding noted. Patient was started on baby aspirin per neurology and scheduled to undergo MRI of the cervical spine today. Patient continues with significant weakness and will need rehab upon discharge. Patient is maintained on vitamin and zinc supplements and was also being followed by cardiology. Adjustments to medications being done and patient is on oral Cardizem. Will follow-up with repeat labs. Patient is afebrile and denies shortness of breath. Patient clinically appears to be improving. Per nursing staff patient is incontinent of stool in continues to be somewhat loose although less frequent. C. diff testing was negative and stool cultures are negative. Encouraged oral intake. Will discuss with case management about discharge planning to ECF as he will require a Covid hub. 11/12/2022 Patient is seen and evaluated in follow-up today with multiple medical consultations following including infectious disease, cardiology, neurology. Patient's hemoglobin is low again at 6.8 and will give 1 unit. Recommend holding aspirin. Patient did have an elevated d-dimer and CTA was ordered. GI was also consulted for anemia. Patient continues to have incontinence of stool and loose stools and is maintained on Questran and will be given Imodium as needed. Patient continues with generalized weakness and fatigue and also having some lower extremity pain and swelling and have ordered Dopplers of bilateral lower extremities as well. Patient with Covid vitamin and zinc supplements and anticoagulation with subcu heparin. Hematology also following for anemia. Recommend repeat CBC this evening and will transfuse another unit as well. Cardiology following and adjustments to medications being made and patient also being started on low-dose diuretics. Patient is having low-grade temps of 99.3- 99.6 and patient continues to be 95% or above on room air. Blood pressure on the lower side although stable. Stool cultures and C. diff testing have been negative. Patient started on antibiotics per ID recommendations in the form of Zithromax and ceftriaxone. Reviewed iron studies which are low and will give IV iron as well. Electrolytes continue to be low and will replace per protocol. Patient will need ECF once stabilized and discharged 11/13/2022 Patient is seen today with multiple medical consultations following and undergoing neurological workup and having bilateral upper and lower extremity weakness. Neurology recommends orthopedic consultation which is currently pending. Patient did have some movement in his diarrhea and reports becoming more formed and less frequent. Patient continues to be incontinent of this. Patient being started on antibiotics with anxiety following an also continues to have anemia. GI recommending continuing with hematology workup. Multiple images including MRIs and pending at time. Patient with significant weakness will be going to rehab when stable. A.m. labs are pending. 11/14/2022 This is a pleasant 62 years old male with Covid pneumonia and bacterial pneumonia especially in the right lower lobe. His been covered with Zithromax and ceftriaxone with ID team and pulmonary team on the case. His breathing looks improvement, now much tachypnea or dyspnea. She is complaining of from bilateral upper extremity weakness, MRI ordered by orthopedic team showing spinal stenosis of C5 to C6 with possible osteo-discitis of L3-L4 and orthopedic team R following closely. Also he is on dexamethasone Patient had ultrasound of the legs showing no DVT on the right leg with non- occlusive thrombosis of the left leg. Hematology team are currently following with and he is patient on subcutaneous heparin. Patient still have diarrhea about 3 times per day yesterday no abdominal pain or vomiting. Patient currently on Zithromax and ceftriaxone, oral Lasix and normal saline 75 mL/h 11/15/2022 Patient Covid pneumonia is improving and he has minimal respiratory symptoms, no dyspnea at rest, patient is not working, no chest pain, occasional coughing, he is saturating well and he continued on treatment with dexamethasone which is helping also has a spine disease as he has C5-C6 stenosis orthopedic team on the case, no surgical intervention Also his continued on Zithromax and ceftriaxone for his pneumonia with ID team on the case. Patient has left leg swelling most likely secondary to nonocclusive DVT however patient could not get anticoagulation because of his severe anemia, hematology input is appreciated, anticoagulation has more risks than benefits. We are going to check occult blood in the stool, hemoglobin today slightly going down 7.3. However anemia workup showing some evidence of anemia of chronic disease patient also with A. fib but no need for intervention for this purpose as her score 0. Real Estate Executive Assistant. 11/16/2022 Patient still has bilateral upper extremity weakness mainly on the right side, thought secondary to C5-C6 is stenosis with no plan for surgical intervention by orthopedic team. Patient also on dexamethasone for Covid pneumonia and Zithromax ceftriaxone for possible bacterial superinfection especially in the right lower lobe. Her saturation is acceptable. Blood pressure is stable low-normal. There is no evidence of bleeding, occult blood in the stool is negative. Patient has evidence of left DVT, his anemia although severe as most likely secondary to anemia of chronic disease, repeat anemia workup was requested, I discussed the case with hematology team, possibly we will start him on anticoagulation once workup is finished. No need for anticoagulation or aspirin for A. fib per Real Estate Executive Assistant. No need for aspirin also per neurologist. 11/17/2022 Patient awake sitting up in bed looks comfortable. His breathing is improved while continue current antibiotic Patient is still have weakness more the right arm and left arm, Orthopedic team on the case and they recommended MRI of the whole spine which is pending. Also I discussed with the bedside nurse disorder hard collar. He still on heparin drip for his left leg DVT, benefits more than risk. Monitor hemoglobin Objective - Vital Signs Vital signs: Vital Signs Temp 97.4 F L 11/17/22 04:00 Pulse 63 11/17/22 08:10 Resp 18 11/17/22 08:10 BP 130/70 11/17/22 08:10 Pulse Ox 98 11/17/22 08:10 FiO2 Intake & Output 11/16/22 11/17/22 11/17/22 18:59 06:59 18:59 Intake Total 476 70.667 180 Output Total 1400 Balance 476 -1329.333 180 Weight 97.522 kg 116.5 kg Intake: Intake, IV Titration 70.667 Amount Heparin Sod,Pork in 0.45% 70.667 NaCl 25,000 unit In 0.45 % NaCl 1 250ml.bag @ 10. 254 UNITS/KG/HR 10 mls/hr IV [facility] Rx#: [id number] Oral 476 180 Output: Urine 1400 Other: Voiding Method External Catheter External Catheter # Voids 2 # Bowel Movements 1 1 - Exam -GENERAL: The patient is alert and oriented x3, not in any acute distress. Well developed, well nourished. Generally weak -HEENT: Pupils are round and equally reacting to light. EOMI. No scleral icterus. No conjunctival pallor. Normocephalic, atraumatic. No pharyngeal erythema. No thyromegaly. Dry mucous membranes, mild CARDIOVASCULAR: S1 and S2 present. No murmurs, rubs, or gallops. PULMONARY: Chest is clear to auscultation, no wheezing or crackles. ABDOMEN: Soft, nontender, nondistended, normoactive bowel sounds. No palpable organomegaly. MUSCULOSKELETAL: No joint swelling or deformity. -EXTREMITIES: No cyanosis, clubbing, or pedal edema. left leg swelling NEUROLOGICAL: Gross neurological examination did not reveal any focal deficits. SKIN: No rashes. no petechiae. - Labs CBC & Chem 7: 11/17/22 08:16 11/17/22 08:16 Labs: Abnormal Lab Results - Last 24 Hours (Table) 11/11/22 11/16/22 11/16/22 Range/Units 16:24 05:48 16:50 WBC 15.3 H (3.8-10.6) k/uL RBC 2.60 L (4.30-5.90) m/uL Hgb 7.8 L (13.0-17.5) gm/dL Hct 25.3 L (39.0-53.0) % MCHC 30.7 L (31.0-37.0) g/dL Neutrophils # 13.3 H (1.3-7.7) k/uL APTT (22.0-30.0) sec Sodium (137-145) mmol/L Potassium (3.5-5.1) mmol/L Chloride (98-107) mmol/L Carbon Dioxide (22-30) mmol/L BUN (9-20) mg/dL Glucose (74-99) mg/dL POC Glucose (mg/dL) (70-110) mg/dL Calcium (8.4-10.2) mg/dL TIBC 124 L (228-460) ug/dL % Saturation 84.03 H (15.00-50.00) Transferrin 88.4 L (204.0-354.0) mg/dL Ferritin 1230.0 H (22.0-322.0) ng/mL Vitamin B12 >3600.0 H (200.0-944.0) pg/mL Crossmatch See Detail 11/16/22 11/16/22 11/16/22 Range/Units 16:50 16:50 19:53 WBC (3.8-10.6) k/uL RBC (4.30-5.90) m/uL Hgb (13.0-17.5) gm/dL Hct (39.0-53.0) % MCHC (31.0-37.0) g/dL Neutrophils # (1.3-7.7) k/uL APTT 36.6 H (22.0-30.0) sec Sodium (137-145) mmol/L Potassium (3.5-5.1) mmol/L Chloride (98-107) mmol/L Carbon Dioxide (22-30) mmol/L BUN (9-20) mg/dL Glucose (74-99) mg/dL POC Glucose (mg/dL) 262 H 223 H (70-110) mg/dL Calcium (8.4-10.2) mg/dL TIBC (228-460) ug/dL % Saturation (15.00-50.00) Transferrin (204.0-354.0) mg/dL Ferritin (22.0-322.0) ng/mL Vitamin B12 (200.0-944.0) pg/mL Crossmatch 11/16/22 11/17/22 11/17/22 Range/Units 22:52 06:04 08:16 WBC 15.0 H (3.8-10.6) k/uL RBC 2.55 L (4.30-5.90) m/uL Hgb 7.7 L (13.0-17.5) gm/dL Hct 25.2 L (39.0-53.0) % MCHC 30.7 L (31.0-37.0) g/dL Neutrophils # 13.1 H (1.3-7.7) k/uL APTT >200.0 H* (22.0-30.0) sec Sodium (137-145) mmol/L Potassium (3.5-5.1) mmol/L Chloride (98-107) mmol/L Carbon Dioxide (22-30) mmol/L BUN (9-20) mg/dL Glucose (74-99) mg/dL POC Glucose (mg/dL) 172 H (70-110) mg/dL Calcium (8.4-10.2) mg/dL TIBC (228-460) ug/dL % Saturation (15.00-50.00) Transferrin (204.0-354.0) mg/dL Ferritin (22.0-322.0) ng/mL Vitamin B12 (200.0-944.0) pg/mL Crossmatch 11/17/22 Range/Units 08:16 WBC (3.8-10.6) k/uL RBC (4.30-5.90) m/uL Hgb (13.0-17.5) gm/dL Hct (39.0-53.0) % MCHC (31.0-37.0) g/dL Neutrophils # (1.3-7.7) k/uL APTT (22.0-30.0) sec Sodium 133 L (137-145) mmol/L Potassium 6.1 H* (3.5-5.1) mmol/L Chloride 115 H (98-107) mmol/L Carbon Dioxide 15 L (22-30) mmol/L BUN 22 H (9-20) mg/dL Glucose 142 H (74-99) mg/dL POC Glucose (mg/dL) (70-110) mg/dL Calcium 7.6 L (8.4-10.2) mg/dL TIBC (228-460) ug/dL % Saturation (15.00-50.00) Transferrin (204.0-354.0) mg/dL Ferritin (22.0-322.0) ng/mL Vitamin B12 (200.0-944.0) pg/mL Crossmatch Assessment and Plan Assessment: Bilateral: Pneumonia with superimposed gram-negative bacterial infection is suspected mainly in the right lower lobe Acute hypoxic respiratory failure Sepsis secondary to above Anemia with vitamin B12 deficiency and currently on IM B12 replacement therapy Elevated troponin, most likely type II. No chest pain, normal LV function Low vitamin B12 and B6 Nonocclusive thrombosis of the left leg Paroxysmal atrial fibrillation no anticoagulation with score of 0 per Real Estate Executive Assistant Plan: continue with antibiotic, currently on Zithromax and ceftriaxone Continue with dexamethasone per orthopedic team Continue with IV hydration Continue with vitamin B12 replacement therapy Continue with oral Lasix No need for surgical intervention per orthopedic team May start anticoagulation per hematology team Several consultants on the case including neurologist, bankruptcy legal assistant, solution architect, GI (signed off, no GI coverage this week), infectious disease team and orthopedic team Labs and medication were reviewed.. Continue same treatment. Continue with symptomatic treatment. Resume home medication. Monitor labs and vitals. DVT and GI prophylaxis. Further recommendations as per clinical course of the patient DVT prophylaxis: Subcutaneous heparin GI Prophylaxis: Ppi PT/OT: Pending Prognosis is guarded
[2022-11-17 11:49] LABS: APTT 49 Sec(s) (<43); APTT 1:1 Mix 42 Sec(s) (<43); Dilute Russell Viper Venom 33 Sec(s) (<44)
[2022-11-17 13:00] LABS: Glucose,Whole Blood 232 mg/dL (70-110)
--- NOTE | 2022-11-17 16:34 | P.PN ---
Subjective Progress Note Date: 11/17/22 Principal diagnosis: Covid 19 Patient is a 62-year-old male who is unvaccinated for COVID-19 patient was brought into the ER for evaluation of weakness no energy mention the patient was not able to get stand up and go to the bathroom patient has been dealing with the diarrhea off and on for couple of weeks, patient was noticed to have a positive covid test, however the patient was not hypoxic and CT abdominal pelvis with few bibasilar patchy groundglass opacity representing atelectasis and no evidence of colitis. On today's evaluation that is 11/17/2022, the patient remains to be afebrile, the patient is breathing comfortably on room air, The patient denies chest pain or shortness of breath, the patient cough has decreased in intensity and mostly dry in nature, no nausea no vomiting no abdominal pain and diarrhea has resolved Objective - Vital Signs Vital signs: Vital Signs Temp 97.8 F 11/17/22 11:34 Pulse 69 11/17/22 11:34 Resp 15 11/17/22 11:34 BP 115/74 11/17/22 11:34 Pulse Ox 98 11/17/22 11:34 FiO2 Intake & Output 11/16/22 11/17/22 11/17/22 18:59 06:59 18:59 Intake Total 476 70.667 180 Output Total 1400 Balance 476 -1329.333 180 Weight 97.522 kg 116.5 kg Intake: Intake, IV Titration 70.667 Amount Heparin Sod,Pork in 0.45% 70.667 NaCl 25,000 unit In 0.45 % NaCl 1 250ml.bag @ 10. 254 UNITS/KG/HR 10 mls/hr IV .Q24H [facility] Rx#: [id number] Oral 476 180 Output: Urine 1400 Other: Voiding Method External Catheter External Catheter # Voids 2 # Bowel Movements 1 1 1 - Exam GENERAL DESCRIPTION: An elderly male lying in bed in no distress RESPIRATORY SYSTEM: Unlabored breathing , decreased breath sounds at bases HEART: S1 S2 regular rate and rhythm , ABDOMEN: Soft , no tenderness EXTREMITIES: No edema feet - Labs CBC & Chem 7: 11/17/22 08:16 11/17/22 08:16 Labs: Abnormal Lab Results - Last 24 Hours (Table) 11/11/22 11/16/22 11/16/22 Range/Units 16:24 05:48 09:51 WBC (3.8-10.6) k/uL RBC (4.30-5.90) m/uL Hgb (13.0-17.5) gm/dL Hct (39.0-53.0) % MCHC (31.0-37.0) g/dL Neutrophils # (1.3-7.7) k/uL APTT (22.0-30.0) sec Lupus Anticoag aPTT 49 H (<43) Sec(s) Sodium (137-145) mmol/L Potassium (3.5-5.1) mmol/L Chloride (98-107) mmol/L Carbon Dioxide (22-30) mmol/L BUN (9-20) mg/dL Glucose (74-99) mg/dL POC Glucose (mg/dL) (70-110) mg/dL Calcium (8.4-10.2) mg/dL TIBC 124 L (228-460) ug/dL % Saturation 84.03 H (15.00-50.00) Transferrin 88.4 L (204.0-354.0) mg/dL Ferritin 1230.0 H (22.0-322.0) ng/mL Vitamin B12 >3600.0 H (200.0-944.0) pg/mL Crossmatch See Detail 11/16/22 11/16/22 11/16/22 Range/Units 16:50 16:50 16:50 WBC 15.3 H (3.8-10.6) k/uL RBC 2.60 L (4.30-5.90) m/uL Hgb 7.8 L (13.0-17.5) gm/dL Hct 25.3 L (39.0-53.0) % MCHC 30.7 L (31.0-37.0) g/dL Neutrophils # 13.3 H (1.3-7.7) k/uL APTT 36.6 H (22.0-30.0) sec Lupus Anticoag aPTT (<43) Sec(s) Sodium (137-145) mmol/L Potassium (3.5-5.1) mmol/L Chloride (98-107) mmol/L Carbon Dioxide (22-30) mmol/L BUN (9-20) mg/dL Glucose (74-99) mg/dL POC Glucose (mg/dL) 262 H (70-110) mg/dL Calcium (8.4-10.2) mg/dL TIBC (228-460) ug/dL % Saturation (15.00-50.00) Transferrin (204.0-354.0) mg/dL Ferritin (22.0-322.0) ng/mL Vitamin B12 (200.0-944.0) pg/mL Crossmatch 11/16/22 11/16/22 11/17/22 Range/Units 19:53 22:52 06:04 WBC (3.8-10.6) k/uL RBC (4.30-5.90) m/uL Hgb (13.0-17.5) gm/dL Hct (39.0-53.0) % MCHC (31.0-37.0) g/dL Neutrophils # (1.3-7.7) k/uL APTT >200.0 H* (22.0-30.0) sec Lupus Anticoag aPTT (<43) Sec(s) Sodium (137-145) mmol/L Potassium (3.5-5.1) mmol/L Chloride (98-107) mmol/L Carbon Dioxide (22-30) mmol/L BUN (9-20) mg/dL Glucose (74-99) mg/dL POC Glucose (mg/dL) 223 H 172 H (70-110) mg/dL Calcium (8.4-10.2) mg/dL TIBC (228-460) ug/dL % Saturation (15.00-50.00) Transferrin (204.0-354.0) mg/dL Ferritin (22.0-322.0) ng/mL Vitamin B12 (200.0-944.0) pg/mL Crossmatch 11/17/22 11/17/22 Range/Units 08:16 08:16 WBC 15.0 H (3.8-10.6) k/uL RBC 2.55 L (4.30-5.90) m/uL Hgb 7.7 L (13.0-17.5) gm/dL Hct 25.2 L (39.0-53.0) % MCHC 30.7 L (31.0-37.0) g/dL Neutrophils # 13.1 H (1.3-7.7) k/uL APTT (22.0-30.0) sec Lupus Anticoag aPTT (<43) Sec(s) Sodium 133 L (137-145) mmol/L Potassium 6.1 H* (3.5-5.1) mmol/L Chloride 115 H (98-107) mmol/L Carbon Dioxide 15 L (22-30) mmol/L BUN 22 H (9-20) mg/dL Glucose 142 H (74-99) mg/dL POC Glucose (mg/dL) (70-110) mg/dL Calcium 7.6 L (8.4-10.2) mg/dL TIBC (228-460) ug/dL % Saturation (15.00-50.00) Transferrin (204.0-354.0) mg/dL Ferritin (22.0-322.0) ng/mL Vitamin B12 (200.0-944.0) pg/mL Crossmatch Assessment and Plan (1) COVID-19 Current Visit: Yes Status: Acute Priority: High Code(s): U07.1 - COVID-19 SNOMED Code(s): 165796173 (2) Diarrhea Current Visit: Yes Status: Acute Priority: High Code(s): R19.7 - DIARRHEA, UNSPECIFIED SNOMED Code(s): 96554984 Plan: 1patient present to hospital generalized weakness which is likely multifactorial could be related to his diarrhea has not patient did have significant diarrhea and evidence of prerenal status was low potassium, stool for C. diff is negative stool cultures has been obtained and currently pending, patient to continue Questran and advised to increase his probiotic and yogurt intake 2patient with a low-grade fever, the patient did have elevated pro calcitonin, CT angiogram of the chest was negative for PE however did shows right lower lobe infiltrate suspicious for pneumonia 3-patient fever has resolved, patient has shown clinical improvement, patient will continue with Rocephin, with a plan to finish therapy with oral antibiotics and elevated white count more likely steroid related and will be monitored closely Time with Patient: Less than 30
[2022-11-17 17:02] LABS: Glucose,Whole Blood 179 mg/dL (70-110)
[2022-11-17 19:40] LABS: Glucose,Whole Blood 286 mg/dL (70-110)
[2022-11-18] MEDS: DEXAMETHASONE SOD PHOSPHATE 4 MG/ML 1 ML VIAL IVP SCH ×4 (00:50→17:03)
[2022-11-18 06:04] LABS: Glucose,Whole Blood 159 mg/dL (70-110)
[2022-11-18] MEDS: INSULIN ASPART (NovoLOG) 100 UNIT/ML VIAL SQ SCH ×4 (06:05→20:44)
[2022-11-18] MEDS: SODIUM CHLORIDE 0.9% 1,000 ML IV SCH (06:05)
[2022-11-18] MEDS: LEVOTHYROXINE 50 MCG TAB PO SCH (06:05)
[2022-11-18] MEDS: HEPARIN SOD,PORK IN 0.45% NACL 25,000 UNIT in 0.45% NACL 1 250ML.BAG IV SCH (06:08)
[2022-11-18 07:57] LABS: Basophils % (A) 0 %; Eosinophils % (A) 0 %; HCT 26.6 % (39.0-53.0); HGB 7.9 gm/dL (13.0-17.5); Hypochromasia Marked; Lymphocytes # (A) 1.5 k/uL (1.0-4.8); Lymphocytes % (A) 8 %; MCH 29.7 pg (25.0-35.0); MCHC 29.9 g/dL (31.0-37.0); MCV 99.2 fL (80.0-100.0); Macrocytosis Slight; Mean Platelet Volume 9.6; Monocytes # (A) 0.8 k/uL (0-1.0); Monocytes % (A) 4 %; Neutrophils % (A) 87 %; Platelet Count 292 k/uL (150-450); RBC 2.68 m/uL (4.30-5.90); RDW 14.9 % (11.5-15.5); WBC 18.3 k/uL (3.8-10.6)
[2022-11-18 08:13] LABS: Calcium 7.6 mg/dL (8.4-10.2); Magnesium 1.9 mg/dL (1.6-2.3); Potassium 5.9 mmol/L (3.5-5.1)
[2022-11-18] MEDS: PYRIDOXINE 50 MG TAB PO SCH ×2 (08:32→20:46)
[2022-11-18] MEDS: PANTOPRAZOLE 40 MG/10 ML VIAL IVP SCH ×2 (08:32→20:44)
[2022-11-18] MEDS: CHOLESTYRAMINE (WITH SUGAR) 4 GM PACKET PO SCH ×2 (08:32→16:52)
[2022-11-18] MEDS: CHOLECALCIFEROL 25 MCG (1000 IU) TABLET PO SCH (08:32)
[2022-11-18] MEDS: ZINC SULFATE 220 MG CAP PO SCH (08:33)
[2022-11-18] MEDS: DILTIAZEM ORAL 30 MG TAB PO SCH ×3 (08:33→20:44)
[2022-11-18] MEDS: MAGNESIUM OXIDE 400 MG TAB PO SCH (08:33)
[2022-11-18] MEDS: THIAMINE 100 MG TAB PO SCH (08:33)
[2022-11-18] MEDS: CALCIUM CARBONATE 500 MG CHEWABLE PO SCH ×3 (08:33→20:44)
[2022-11-18] MEDS: FUROSEMIDE 20 MG TAB PO SCH ×2 (08:33→20:44)
[2022-11-18] MEDS: FLUoxetine HCL 20 MG CAP PO SCH (08:33)
[2022-11-18] MEDS: CYANOCOBALAMIN 1,000 MCG/ML 1 ML VIAL IM SCH (08:33)
[2022-11-18] MEDS: FOLIC ACID 1 MG TAB PO SCH (08:33)
[2022-11-18] MEDS: ASCORBIC ACID 500 MG TAB PO SCH ×2 (08:38→20:44)
--- NOTE | 2022-11-18 09:05 | P.PN ---
Subjective Progress Note Date: 11/18/22 Principal diagnosis: Bilateral upper extremity weakness; back pain Patient seen and examined this morning. Patient is resting in bed. He denies any pain at this time. He has been afebrile, denies nausea/vomiting, or chest pain. Explained to patient that we are waiting for MRI to be performed to determine POC. Objective - Vital Signs Vital signs: Vital Signs Temp 97.9 F 11/18/22 08:31 Pulse 69 11/18/22 08:31 Resp 16 11/18/22 08:31 BP 120/70 11/18/22 08:31 Pulse Ox 100 11/18/22 08:31 FiO2 Intake & Output 11/17/22 11/18/22 11/18/22 18:59 06:59 18:59 Intake Total 180 157.9 Output Total 600 600 Balance -420 -442.1 Intake: Intake, IV Titration 157.9 Amount Heparin Sod,Pork in 0.45% 157.9 NaCl 25,000 unit In 0.45 % NaCl 1 250ml.bag @ 10. 254 UNITS/KG/HR 10 mls/hr IV .Q24H [facility] Rx#: [id number] Oral 180 Output: Urine 600 600 Other: Voiding Method External Catheter External Catheter # Bowel Movements 1 - Exam Physical Examination General: The patient is awake and alert, in no acute distress Skin: Skin is warm and dry with no obvious rashes or lesions. Hairy patches absent, no dorsal skin dimples, no cafe au lait spots, and no surgical incisions. Eye: Pupils are equal, round and reactive to light, extra-ocular movements are intact; there is normal conjunctiva bilaterally. Neck: The neck is supple, there is no tenderness and ROM intact. Cardiovascular: There is a regular rate and rhythm. No murmur, rub or gallop is appreciated. Respiratory: Lungs are clear to auscultation, respirations are non-labored, breath sounds are equal. Gastrointestinal: Soft, non-distended, non-tender abdomen. Back: There is no tenderness to palpation in the midline, paralumbar, parathoracic or buttocks region. There is no obvious deformity . Musculoskeletal: ROM limited secondary to pain and stiffness from surgical procedure. Muscle strength in all major muscle groups of right upper extremity 3/5, left upper extremity 4/5, bilateral lower extremities 4-/5. Neurological: CN 2-12 intact. There are no obvious motor or sensory deficits. Movement and coordination equal and intact. Sensory exam to light touch intact C5-T1 and intact from L2-S1. Reflexes 2/4 in bilateral upper and lower extremities. Negative Hoffmans, babinski, and clonus signs. Psychiatric: Cooperative, appropriate mood & affect, normal judgment. - Labs CBC & Chem 7: 11/18/22 06:49 11/18/22 06:49 Labs: Abnormal Lab Results - Last 24 Hours (Table) 11/16/22 11/17/22 11/17/22 Range/Units 09:51 08:16 12:58 WBC (3.8-10.6) k/uL RBC (4.30-5.90) m/uL Hgb (13.0-17.5) gm/dL Hct (39.0-53.0) % MCHC (31.0-37.0) g/dL Neutrophils # (1.3-7.7) k/uL APTT (22.0-30.0) sec Lupus Anticoag aPTT 49 H (<43) Sec(s) Sodium 133 L (137-145) mmol/L Potassium 6.1 H* (3.5-5.1) mmol/L Chloride 115 H (98-107) mmol/L Carbon Dioxide 15 L (22-30) mmol/L BUN 22 H (9-20) mg/dL Glucose 142 H (74-99) mg/dL POC Glucose (mg/dL) 232 H (70-110) mg/dL Calcium 7.6 L (8.4-10.2) mg/dL 11/17/22 11/17/22 11/17/22 Range/Units 14:28 17:01 17:45 WBC (3.8-10.6) k/uL RBC (4.30-5.90) m/uL Hgb (13.0-17.5) gm/dL Hct (39.0-53.0) % MCHC (31.0-37.0) g/dL Neutrophils # (1.3-7.7) k/uL APTT 47.3 H (22.0-30.0) sec Lupus Anticoag aPTT (<43) Sec(s) Sodium (137-145) mmol/L Potassium 5.7 H (3.5-5.1) mmol/L Chloride (98-107) mmol/L Carbon Dioxide (22-30) mmol/L BUN (9-20) mg/dL Glucose (74-99) mg/dL POC Glucose (mg/dL) 179 H (70-110) mg/dL Calcium (8.4-10.2) mg/dL 11/17/22 11/18/22 11/18/22 Range/Units 19:38 06:02 06:49 WBC (3.8-10.6) k/uL RBC (4.30-5.90) m/uL Hgb (13.0-17.5) gm/dL Hct (39.0-53.0) % MCHC (31.0-37.0) g/dL Neutrophils # (1.3-7.7) k/uL APTT 38.9 H (22.0-30.0) sec Lupus Anticoag aPTT (<43) Sec(s) Sodium (137-145) mmol/L Potassium (3.5-5.1) mmol/L Chloride (98-107) mmol/L Carbon Dioxide (22-30) mmol/L BUN (9-20) mg/dL Glucose (74-99) mg/dL POC Glucose (mg/dL) 286 H 159 H (70-110) mg/dL Calcium (8.4-10.2) mg/dL 11/18/22 11/18/22 Range/Units 06:49 06:49 WBC 18.3 H (3.8-10.6) k/uL RBC 2.68 L (4.30-5.90) m/uL Hgb 7.9 L (13.0-17.5) gm/dL Hct 26.6 L (39.0-53.0) % MCHC 29.9 L (31.0-37.0) g/dL Neutrophils # 16.0 H (1.3-7.7) k/uL APTT (22.0-30.0) sec Lupus Anticoag aPTT (<43) Sec(s) Sodium 133 L (137-145) mmol/L Potassium 5.9 H (3.5-5.1) mmol/L Chloride 117 H (98-107) mmol/L Carbon Dioxide 17 L (22-30) mmol/L BUN 23 H (9-20) mg/dL Glucose 104 H (74-99) mg/dL POC Glucose (mg/dL) (70-110) mg/dL Calcium 7.6 L (8.4-10.2) mg/dL Assessment and Plan Assessment: 1. Bilateral upper extremity weakness 2. Left knee pain Plan: Awaiting MRI of the cervical, thoracic, and lumbar spine to be performed, MRI called and they are only able to do the Cervical region today 11/18/22. Recommend blood cultures Appreciate medical management Pain management - Tylenol DVT prophylaxis - heparin gtt GI prophylaxis - Protonix; Tums PT/OT - weightbearing as tolerated with walker. Appreciate consult
[2022-11-18 11:52] LABS: Glucose,Whole Blood 199 mg/dL (70-110)
[2022-11-18] MEDS ORDERED: SODIUM ZIRCONIUM CYCLOSILICATE 10 GM PACKET PO ONE (13:27)
--- NOTE | 2022-11-18 13:32 | P.PN ---
Subjective 62-year-old male in the emergency department for diarrhea. She notes diarrhea starting and he asked progressively gotten worse. He reports he stood up from a chair and had an episode of diarrhea, admits he still maintains bowel function. He has not tried anything for his symptoms. He denies nausea, vomiting, abdominal pain, palpitations, fevers. Denies recent travel or recent antibiotic use. He is scheduled to have his first colonoscopy in january of 2023. Patient had an initial lab work is remarkable for WBC is 11.4, hemoglobin 8.7, INR 1.2, sodium 133, potassium 2.6 lactic acid 2.9, calcium 6.3, magnesium 0.8, lipase 60, COVID positive. I interpreted the following; CT abdomen without contrast remarkable for fluid filled colon without focal wall thickening or surrounding inflammatory changes. Patient was given 2 L fluids, potassium, magnesium and calcium during his course of the ED. 11/08/2022 Patient is seen and evaluated on selective care unit; he went into atrial fibrillation with rapid ventricular response he was transferred to the third floor/selective minute. The patient did not have any symptoms of heart racing or fluttering and no dizziness or lightheadedness and no presyncope or syncope and no symptoms of chest pain or chest discomfort or shortness of breath. No prior history of atrial fibrillation. No history of coronary artery disease or congestive heart failure or cardiac arrhythmia and the patient never seen a phlebotomy director in the past. Beside that no history of diabetes or hypertension or dyslipidemia. The patient was started initially on Cardizem drip but his pressure did go down and for that reason he was switched into amiodarone IV and subsequently con verted to normal sinus mechanism and since then he has been maintaining normal sinus mechanism. Further investigation was performed including CBC and that showed a hemoglobin of 7.7. The patient has no history of bleeding. Beside that he underwent a computed tomography scan of the abdomen and pelvis because of the abdominal discomfort that showed no acute abnormalities. The troponin came in to be slightly elevated likely secondary to tachycardia. The EKG showed sinus rhythm now with no significant ST or T-wave abnormalities. Blood work reveals mild elevation of troponin; Patient has been evaluated by cardiology and recommended to continue with IV fluids, replace electrolytes; IV amiodarone is to be discontinued patient is transition to oral dose daily 11/09/2022 Patient is seen and evaluated in follow-up this morning and continues to feel generalized weakness and continues with loose stools. Per nursing staff when assisting to clean the patient up patient was significantly weak on the right. Patient denied any headache, dizziness, or lightheadedness. Will obtain a CT of the brain and also consult neurology. Recommend PT/OT therapy evaluation for significant weakness. C. diff testing was negative on the stool and will add Imodium and encourage oral intake and advance as tolerated. Patient is maintaining on vitamins and zinc supplements along with subcutaneous heparin with anxiety following closely. Patient denies chest pain or shortness of breath. Afebrile. Recommend a.m. labs as well. 11/10/2022 Patient is seen in follow-up today with multiple medical consultations including cardiology, hematology, infectious disease, and now neurology following. Patien t with significant weakness in all upper and lower extremities with neurology undergoing workup recommending aspirin as patient is not on any anticoagulation at this time. Cardiology is following and patient was transitioned back to IV Cardizem although being changed to oral with close monitoring. Magnesium found to be significantly low at 1.2 and will replace per protocol and recommend repeat labs. Hemoglobin is mildly low at 7.4 and undergoing anemia workup with hematology following. Patient with Covid and extreme weakness will need ECF and discharge planning in process. Recommend close monitoring of labs and replace electrolytes per protocol. Patient was started on Imodium as C. diff testing 2 was negative. Patient continues to have loose stools although somewhat improved. Encouraged oral intake and increased activity as tolerated. Recommend PT/OT therapy daily. Patient denies chest pain or shortness of breath. Patient is 97% on room air. Patient will continue on vitamin and zinc supplements with anxiety following closely. Recommend gentle IV hydration. 11/11/2022 Patient is seen and evaluated in follow-up with multiple medical consultations following including infectious disease and neurology. Oncology following undergoing anemia workup. Hemoglobin was found to be 6.5 today and will order 1 unit of PRBC and recommend close monitoring. No active bleeding noted. Patient was started on baby aspirin per neurology and scheduled to undergo MRI of the cervical spine today. Patient continues with significant weakness and will need rehab upon discharge. Patient is maintained on vitamin and zinc supplements and was also being followed by cardiology. Adjustments to medications being done and patient is on oral Cardizem. Will follow-up with repeat labs. Patient is afebrile and denies shortness of breath. Patient clinically appears to be improving. Per nursing staff patient is incontinent of stool in continues to be somewhat loose although less frequent. C. diff testing was negative and stool cultures are negative. Encouraged oral intake. Will discuss with case management about discharge planning to ECF as he will require a Covid hub. 11/12/2022 Patient is seen and evaluated in follow-up today with multiple medical consultations following including infectious disease, cardiology, neurology. Patient's hemoglobin is low again at 6.8 and will give 1 unit. Recommend holding aspirin. Patient did have an elevated d-dimer and CTA was ordered. GI was also consulted for anemia. Patient continues to have incontinence of stool and loose stools and is maintained on Questran and will be given Imodium as needed. Patient continues with generalized weakness and fatigue and also having some lower extremity pain and swelling and have ordered Dopplers of bilateral lower extremities as well. Patient with Covid vitamin and zinc supplements and anticoagulation with subcu heparin. Hematology also following for anemia. Recommend repeat CBC this evening and will transfuse another unit as well. Cardiology following and adjustments to medications being made and patient also being started on low-dose diuretics. Patient is having low-grade temps of 99.3- 99.6 and patient continues to be 95% or above on room air. Blood pressure on the lower side although stable. Stool cultures and C. diff testing have been negative. Patient started on antibiotics per ID recommendations in the form of Zithromax and ceftriaxone. Reviewed iron studies which are low and will give IV iron as well. Electrolytes continue to be low and will replace per protocol. Patient will need ECF once stabilized and discharged 11/13/2022 Patient is seen today with multiple medical consultations following and undergoing neurological workup and having bilateral upper and lower extremity weakness. Neurology recommends orthopedic consultation which is currently pending. Patient did have some movement in his diarrhea and reports becoming more formed and less frequent. Patient continues to be incontinent of this. Patient being started on antibiotics with anxiety following an also continues to have anemia. GI recommending continuing with hematology workup. Multiple images including MRIs and pending at time. Patient with significant weakness will be going to rehab when stable. A.m. labs are pending. 11/14/2022 This is a pleasant 62 years old male with Covid pneumonia and bacterial pneumonia especially in the right lower lobe. His been covered with Zithromax and ceftriaxone with ID team and pulmonary team on the case. His breathing looks improvement, now much tachypnea or dyspnea. She is complaining of from bilateral upper extremity weakness, MRI ordered by orthopedic team showing spinal stenosis of C5 to C6 with possible osteo-discitis of L3-L4 and orthopedic team R following closely. Also he is on dexamethasone Patient had ultrasound of the legs showing no DVT on the right leg with non- occlusive thrombosis of the left leg. Hematology team are currently following with and he is patient on subcutaneous heparin. Patient still have diarrhea about 3 times per day yesterday no abdominal pain or vomiting. Patient currently on Zithromax and ceftriaxone, oral Lasix and normal saline 75 mL/h 11/15/2022 Patient Covid pneumonia is improving and he has minimal respiratory symptoms, no dyspnea at rest, patient is not working, no chest pain, occasional coughing, he is saturating well and he continued on treatment with dexamethasone which is helping also has a spine disease as he has C5-C6 stenosis orthopedic team on the case, no surgical intervention Also his continued on Zithromax and ceftriaxone for his pneumonia with ID team on the case. Patient has left leg swelling most likely secondary to nonocclusive DVT however patient could not get anticoagulation because of his severe anemia, hematology input is appreciated, anticoagulation has more risks than benefits. We are going to check occult blood in the stool, hemoglobin today slightly going down 7.3. However anemia workup showing some evidence of anemia of chronic disease patient also with A. fib but no need for intervention for this purpose as her score 0. Coding Coordinator. 11/16/2022 Patient still has bilateral upper extremity weakness mainly on the right side, thought secondary to C5-C6 is stenosis with no plan for surgical intervention by orthopedic team. Patient also on dexamethasone for Covid pneumonia and Zithromax ceftriaxone for possible bacterial superinfection especially in the right lower lobe. Her saturation is acceptable. Blood pressure is stable low-normal. There is no evidence of bleeding, occult blood in the stool is negative. Patient has evidence of left DVT, his anemia although severe as most likely secondary to anemia of chronic disease, repeat anemia workup was requested, I discussed the case with hematology team, possibly we will start him on anticoagulation once workup is finished. No need for anticoagulation or aspirin for A. fib per Coding Coordinator. No need for aspirin also per neurologist. 11/17/2022 Patient awake sitting up in bed looks comfortable. His breathing is improved while continue current antibiotic Patient is still have weakness more the right arm and left arm, Orthopedic team on the case and they recommended MRI of the whole spine which is pending. Also I discussed with the bedside nurse disorder hard collar. He still on heparin drip for his left leg DVT, benefits more than risk. Monitor hemoglobin 11/18/2022 Patient sitting up in bed does not look in distress, he does not have new complaint His been followed by orthopedic team and MRI of the spine is pending for his right upper extremity weakness more on the right side. Other than that his her pneumonia significantly improved and currently he is on ceftriaxone. Also he is on dexamethasone for his Covid infection. Patient is tolerated heparin drip. For his left leg DVT with hematology team recommendation. Hemoglobin today actually improvement 7.9. Patient would benefit from EGD/colonoscopy as an outpatient. Normal saline was discontinued. Objective - Vital Signs Vital signs: Vital Signs Temp 97.9 F 11/18/22 08:31 Pulse 69 11/18/22 08:31 Resp 16 11/18/22 08:31 BP 120/70 11/18/22 08:31 Pulse Ox 100 11/18/22 08:31 FiO2 Intake & Output 11/17/22 11/18/22 11/18/22 18:59 06:59 18:59 Intake Total 180 157.9 180 Output Total 600 600 300 Balance -420 -442.1 -120 Intake: Intake, IV Titration 157.9 Amount Heparin Sod,Pork in 0.45% 157.9 NaCl 25,000 unit In 0.45 % NaCl 1 250ml.bag @ 10. 254 UNITS/KG/HR 10 mls/hr IV .Q24H [facility] Rx#: [id number] Oral 180 180 Output: Urine 600 600 300 Other: Voiding Method External Catheter External Catheter # Bowel Movements 1 - Exam -GENERAL: The patient is alert and oriented x3, not in any acute distress. Well developed, well nourished. Generally weak -HEENT: Pupils are round and equally reacting to light. EOMI. No scleral icterus. No conjunctival pallor. Normocephalic, atraumatic. No pharyngeal erythema. No thyromegaly. Dry mucous membranes, mild CARDIOVASCULAR: S1 and S2 present. No murmurs, rubs, or gallops. PULMONARY: Chest is clear to auscultation, no wheezing or crackles. ABDOMEN: Soft, nontender, nondistended, normoactive bowel sounds. No palpable organomegaly. MUSCULOSKELETAL: No joint swelling or deformity. -EXTREMITIES: No cyanosis, clubbing, or pedal edema. left leg swelling NEUROLOGICAL: Gross neurological examination did not reveal any focal deficits. SKIN: No rashes. no petechiae. - Labs CBC & Chem 7: 11/18/22 06:49 11/18/22 06:49 Labs: Abnormal Lab Results - Last 24 Hours (Table) 11/17/22 11/17/22 11/17/22 Range/Units 14:28 17:01 17:45 WBC (3.8-10.6) k/uL RBC (4.30-5.90) m/uL Hgb (13.0-17.5) gm/dL Hct (39.0-53.0) % MCHC (31.0-37.0) g/dL Neutrophils # (1.3-7.7) k/uL APTT 47.3 H (22.0-30.0) sec Sodium (137-145) mmol/L Potassium 5.7 H (3.5-5.1) mmol/L Chloride (98-107) mmol/L Carbon Dioxide (22-30) mmol/L BUN (9-20) mg/dL Glucose (74-99) mg/dL POC Glucose (mg/dL) 179 H (70-110) mg/dL Calcium (8.4-10.2) mg/dL 11/17/22 11/18/22 11/18/22 Range/Units 19:38 06:02 06:49 WBC (3.8-10.6) k/uL RBC (4.30-5.90) m/uL Hgb (13.0-17.5) gm/dL Hct (39.0-53.0) % MCHC (31.0-37.0) g/dL Neutrophils # (1.3-7.7) k/uL APTT 38.9 H (22.0-30.0) sec Sodium (137-145) mmol/L Potassium (3.5-5.1) mmol/L Chloride (98-107) mmol/L Carbon Dioxide (22-30) mmol/L BUN (9-20) mg/dL Glucose (74-99) mg/dL POC Glucose (mg/dL) 286 H 159 H (70-110) mg/dL Calcium (8.4-10.2) mg/dL 11/18/22 11/18/22 11/18/22 Range/Units 06:49 06:49 11:50 WBC 18.3 H (3.8-10.6) k/uL RBC 2.68 L (4.30-5.90) m/uL Hgb 7.9 L (13.0-17.5) gm/dL Hct 26.6 L (39.0-53.0) % MCHC 29.9 L (31.0-37.0) g/dL Neutrophils # 16.0 H (1.3-7.7) k/uL APTT (22.0-30.0) sec Sodium 133 L (137-145) mmol/L Potassium 5.9 H (3.5-5.1) mmol/L Chloride 117 H (98-107) mmol/L Carbon Dioxide 17 L (22-30) mmol/L BUN 23 H (9-20) mg/dL Glucose 104 H (74-99) mg/dL POC Glucose (mg/dL) 199 H (70-110) mg/dL Calcium 7.6 L (8.4-10.2) mg/dL Assessment and Plan Assessment: Bilateral: Pneumonia with superimposed gram-negative bacterial infection is suspected mainly in the right lower lobe Acute hypoxic respiratory failure Sepsis secondary to above Anemia with vitamin B12 deficiency and currently on IM B12 replacement therapy Elevated troponin, most likely type II. No chest pain, normal LV function Low vitamin B12 and B6 Nonocclusive thrombosis of the left leg Paroxysmal atrial fibrillation no anticoagulation with score of 0 per Coding Coordinator Plan: continue with antibiotic, currently on Zithromax and ceftriaxone Continue with dexamethasone per orthopedic team Continue with IV hydration Continue with vitamin B12 replacement therapy Continue with oral Lasix No need for surgical intervention per orthopedic team May start anticoagulation per hematology team Several consultants on the case including neurologist, fur puller, phlebotomy director, GI (signed off, no GI coverage this week), infectious disease team and orthopedic team Labs and medication were reviewed.. Continue same treatment. Continue with symptomatic treatment. Resume home medication. Monitor labs and vitals. DVT and GI prophylaxis. Further recommendations as per clinical course of the patient DVT prophylaxis: Subcutaneous heparin GI Prophylaxis: Ppi PT/OT: Pending Prognosis is guarded
--- NOTE | 2022-11-18 13:53 | MR ---
EXAMINATION TYPE: MR cervical spine wo/w con DATE OF EXAM: 11/18/2022 COMPARISON: HISTORY: Generalized weakness and inability to ambulate CONTRAST: Performed utilizing 10 mL intravenous Gadavist gadolinium contrast. TECHNIQUE: Multiplanar multiecho imaging on a 3.0 Josi magnet is performed through the cervical spin e. FINDINGS: The craniovertebral junction is normal. There is a grade 1 spondylolisthesis of C3 anterior ly on C4. C7-T1: No focal disc herniation or significant disc bulge is evident. No spinal canal stenosis or n eural foraminal stenosis is present. C6-7: There is increased signal along the endplates of C6-7 and postcontrast imaging. No loss of vert ebral body height is evident. Enhancement of the disc space is not evident. Uncovertebral joint hype rtrophy is moderate right foraminal stenosis C5-6: There is loss of disc height is level. No spinal canal stenosis is present. There is some mild endplate spurring with anterior thecal sac flattening. Uncovertebral vertebrae is moderate bilateral foraminal stenosis.. C4-5: Degenerative disc changes are present. Mild residual disc bulge is present with anterior thecal sac flattening. Cord contact may be present. No AP spinal canal stenosis present. Neural foramen are patent.. C3-4: Small broad-based disc bulge is mildly onto anterior thecal sac flattening. AP spinal canal stenosis present. Subligamentous disc extension is not excluded. C2-3: Disc bulge is present with moderate central thecal sac compression. No AP spinal canal stenosis present. No cord contact is evident. No foramen are patent.. IMPRESSIONS: 1. Disc bulging at C2-C3 with moderate anterior thecal sac impression. No cord contact or stenosis. 2. Multilevel foraminal stenosis discussed above. 3. Loss of disc height through multiple levels of disc, greatest at C6-7. 4. Enhancing endplates of C3-6-7 without disc enhancement. However, consider discitis within the diff erential. No vertebral body height loss is evident.
--- NOTE | 2022-11-18 15:23 | P.PN ---
Subjective Progress Note Date: 11/18/22 The patient is seen at bedside and he feels he has more strength in the lowers and is able to lift above gravity. He is accompanied by his sister who is at bedside. He denies of any new neurological issues. Objective - Vital Signs Vital signs: Vital Signs Temp 97.9 F 11/18/22 08:31 Pulse 69 11/18/22 08:31 Resp 16 11/18/22 08:31 BP 120/70 11/18/22 08:31 Pulse Ox 100 11/18/22 08:31 FiO2 Intake & Output 11/17/22 11/18/22 11/18/22 18:59 06:59 18:59 Intake Total 180 157.9 180 Output Total 600 600 300 Balance -420 -442.1 -120 Intake: Intake, IV Titration 157.9 Amount Heparin Sod,Pork in 0.45% 157.9 NaCl 25,000 unit In 0.45 % NaCl 1 250ml.bag @ 10. 254 UNITS/KG/HR 10 mls/hr IV .Q24H [facility] Rx#: [id number] Oral 180 180 Output: Urine 600 600 300 Other: Voiding Method External Catheter External Catheter External Catheter # Bowel Movements 1 - Exam GENERAL: The patient is laying in bed and is in minimal to mild acute distress. NEUROLOGICAL: Higher mental function: The patient is awake, alert, oriented to self, place and time. He is somewhat slow responding. Patient is following simple commands. No aphasia and no neglect. Cranial nerves: The pupils are round, equal and reactive to light and accommodation. Visual elder are full to confrontation throughout. Extraocular movement is intact no nystagmus is noted. Facial sensation is normal to touch throughout. The facial strength is normal throughout. Tongue is midline and moved [id number] without any difficulty. No dysarthria is noted. Shoulder shrug is normal bilaterally. Motor: The strength is limited but has very difficulty raising the right arm above gravity, strength in right upper is about 2 Is able to raise left upper and right lower above gravity . Is able to raise bilateral lowers above gravity and is about at least 4+. Sensation: Sensation is normal to touch throughout. Reflexes (right/left): 0-1+ throughout. Plantars are mute bilaterally. - Labs CBC & Chem 7: 11/18/22 06:49 11/18/22 06:49 Labs: Abnormal Lab Results - Last 24 Hours (Table) 11/17/22 11/17/22 11/17/22 Range/Units 17:01 17:45 19:38 WBC (3.8-10.6) k/uL RBC (4.30-5.90) m/uL Hgb (13.0-17.5) gm/dL Hct (39.0-53.0) % MCHC (31.0-37.0) g/dL Neutrophils # (1.3-7.7) k/uL APTT (22.0-30.0) sec Sodium (137-145) mmol/L Potassium 5.7 H (3.5-5.1) mmol/L Chloride (98-107) mmol/L Carbon Dioxide (22-30) mmol/L BUN (9-20) mg/dL Glucose (74-99) mg/dL POC Glucose (mg/dL) 179 H 286 H (70-110) mg/dL Calcium (8.4-10.2) mg/dL 11/18/22 11/18/22 11/18/22 Range/Units 06:02 06:49 06:49 WBC 18.3 H (3.8-10.6) k/uL RBC 2.68 L (4.30-5.90) m/uL Hgb 7.9 L (13.0-17.5) gm/dL Hct 26.6 L (39.0-53.0) % MCHC 29.9 L (31.0-37.0) g/dL Neutrophils # 16.0 H (1.3-7.7) k/uL APTT 38.9 H (22.0-30.0) sec Sodium (137-145) mmol/L Potassium (3.5-5.1) mmol/L Chloride (98-107) mmol/L Carbon Dioxide (22-30) mmol/L BUN (9-20) mg/dL Glucose (74-99) mg/dL POC Glucose (mg/dL) 159 H (70-110) mg/dL Calcium (8.4-10.2) mg/dL 11/18/22 11/18/22 Range/Units 06:49 11:50 WBC (3.8-10.6) k/uL RBC (4.30-5.90) m/uL Hgb (13.0-17.5) gm/dL Hct (39.0-53.0) % MCHC (31.0-37.0) g/dL Neutrophils # (1.3-7.7) k/uL APTT (22.0-30.0) sec Sodium 133 L (137-145) mmol/L Potassium 5.9 H (3.5-5.1) mmol/L Chloride 117 H (98-107) mmol/L Carbon Dioxide 17 L (22-30) mmol/L BUN 23 H (9-20) mg/dL Glucose 104 H (74-99) mg/dL POC Glucose (mg/dL) 199 H (70-110) mg/dL Calcium 7.6 L (8.4-10.2) mg/dL Assessment and Plan Assessment: * Acute COVID infection with severe diarrhea for around 7-10 days. * Generalized weakness, slightly asymmetric. Etiology possibly multifactorial, probably related to electrolyte imbalance, with hypokalemia, hyponatremia, hypocalcemia, hypomagnesemia, copper deficiency as well B6 deficiency and very low normal B12. Patient's reflexes appears diminished and not sure exact cause: if due to degenerative cervical changes vs electrolyte/nutrition deficient vs ??GBS (but feel less likely since has so many other factors that could have lead to his weakness of uppers as mention above but cannot be excluded). * Degenerative changes worse at C6-C7 seen on MRI * Vitamin B12 deficiency * Vitamin B6 deficient * Copper deficiency * DVT in left lower extremity and has swelling over the right arm concerning for DVT. * Paroxysmal atrial fibrillation * Alcoholism * Anemia Plan: * MRI of the cervical spine revealed significantly limited study secondary to motion. Within the limitation, there is at least moderate spinal canal stenosis at C5 6. Multilevel neural foraminal stenosis. Grade 1 anterolisthesis of C3 on C4. Degeneration changes worse at C6-C7 with the j oint place edema. Orthopedic surgery is on board and did not feel patient is a surgical candidate. * For B6 deficient started 50mg 1 tab bid for now and then repeated level needs to be checked down the line. * Patient has evidence of vitamin B12 deficiency with B12 226 with low B12 and elevated methylmalonic acid 0.51. Patient started on vitamin B12 1000 g IM daily. * Calcium is 7.5-7.6 (slightly low). Ionized calcium is 5.5 (slightly elevated). PTH: 20.7. Will defer work-up and management to primary team. * Hematology has seen the patient, ordered blood testing. * CPK < 20, B1 69, TSH normal. Folate 21.2. Serum protein electrophoresis and immunofixation electrophoresis showed no paraproteinemia. * For copper deficiency, would defer to hematology. * Patient also had an episode of paroxysmal atrial fibrillation. Cardiology has seen the patient, not recommending anticoagulation. From neurological perspective will defer use of ASA to primary team. Patient does not have stroke but was used for atrial fibrillation. * 2-D echo revealed left ventricular hypertrophy with normal left-ventricular systolic function with EF 55%. No obvious regional wall motion abnormalities. Left atrial size is normal. Mild to moderate mitral regurgitation. * PT and OT are consulted * I.D. team is on board. * DVT in left lower extremity and has swelling over the right arm concerning for DVT. * Will defer the rest of medical management to primary team. * He is on subq heparin for DVT prophylaxis. The plan is discussed with patient as well his sister who is at bedside. Will continue to follow. Time with Patient: Less than 30
[2022-11-18 16:37] LABS: Glucose,Whole Blood 232 mg/dL (70-110)
--- NOTE | 2022-11-18 17:46 | P.PN ---
Subjective Progress Note Date: 11/18/22 Principal diagnosis: anemia Pt in f/u is doing ok today, he is pending imaging for Ortho Spine. Denies bleeding. swelling in the LLE is mild, no pain in the leg, has no resp symptoms. Objective - Vital Signs Vital signs: Vital Signs Temp 97.9 F 11/18/22 08:31 Pulse 69 11/18/22 08:31 Resp 16 11/18/22 08:31 BP 120/70 11/18/22 08:31 Pulse Ox 100 11/18/22 08:31 FiO2 Intake & Output 11/17/22 11/18/22 11/18/22 18:59 06:59 18:59 Intake Total 180 157.9 180 Output Total 600 600 300 Balance -420 -442.1 -120 Intake: Intake, IV Titration 157.9 Amount Heparin Sod,Pork in 0.45% 157.9 NaCl 25,000 unit In 0.45 % NaCl 1 250ml.bag @ 10. 254 UNITS/KG/HR 10 mls/hr IV .Q24H [facility] Rx#: [id number] Oral 180 180 Output: Urine 600 600 300 Other: Voiding Method External Catheter External Catheter # Bowel Movements 1 - Constitutional General appearance: Present: average body habitus, cooperative, no acute distress - EENT Eyes: Present: anicteric sclerae, EOMI ENT: Present: hearing grossly normal - Respiratory Details: resp even and unlabored at rest - Integumentary Integumentary: Present: pale - Musculoskeletal Musculoskeletal: Present: generalized weakness - Psychiatric Psychiatric: Present: A&O x's 3, appropriate affect, intact judgment & insight - Labs CBC & Chem 7: 11/18/22 06:49 11/18/22 06:49 Labs: Abnormal Lab Results - Last 24 Hours (Table) 11/16/22 11/17/22 11/17/22 Range/Units 09:51 12:58 14:28 WBC (3.8-10.6) k/uL RBC (4.30-5.90) m/uL Hgb (13.0-17.5) gm/dL Hct (39.0-53.0) % MCHC (31.0-37.0) g/dL Neutrophils # (1.3-7.7) k/uL APTT 47.3 H (22.0-30.0) sec Lupus Anticoag aPTT 49 H (<43) Sec(s) Sodium (137-145) mmol/L Potassium (3.5-5.1) mmol/L Chloride (98-107) mmol/L Carbon Dioxide (22-30) mmol/L BUN (9-20) mg/dL Glucose (74-99) mg/dL POC Glucose (mg/dL) 232 H (70-110) mg/dL Calcium (8.4-10.2) mg/dL 11/17/22 11/17/22 11/17/22 Range/Units 17:01 17:45 19:38 WBC (3.8-10.6) k/uL RBC (4.30-5.90) m/uL Hgb (13.0-17.5) gm/dL Hct (39.0-53.0) % MCHC (31.0-37.0) g/dL Neutrophils # (1.3-7.7) k/uL APTT (22.0-30.0) sec Lupus Anticoag aPTT (<43) Sec(s) Sodium (137-145) mmol/L Potassium 5.7 H (3.5-5.1) mmol/L Chloride (98-107) mmol/L Carbon Dioxide (22-30) mmol/L BUN (9-20) mg/dL Glucose (74-99) mg/dL POC Glucose (mg/dL) 179 H 286 H (70-110) mg/dL Calcium (8.4-10.2) mg/dL 11/18/22 11/18/22 11/18/22 Range/Units 06:02 06:49 06:49 WBC 18.3 H (3.8-10.6) k/uL RBC 2.68 L (4.30-5.90) m/uL Hgb 7.9 L (13.0-17.5) gm/dL Hct 26.6 L (39.0-53.0) % MCHC 29.9 L (31.0-37.0) g/dL Neutrophils # 16.0 H (1.3-7.7) k/uL APTT 38.9 H (22.0-30.0) sec Lupus Anticoag aPTT (<43) Sec(s) Sodium (137-145) mmol/L Potassium (3.5-5.1) mmol/L Chloride (98-107) mmol/L Carbon Dioxide (22-30) mmol/L BUN (9-20) mg/dL Glucose (74-99) mg/dL POC Glucose (mg/dL) 159 H (70-110) mg/dL Calcium (8.4-10.2) mg/dL 11/18/22 Range/Units 06:49 WBC (3.8-10.6) k/uL RBC (4.30-5.90) m/uL Hgb (13.0-17.5) gm/dL Hct (39.0-53.0) % MCHC (31.0-37.0) g/dL Neutrophils # (1.3-7.7) k/uL APTT (22.0-30.0) sec Lupus Anticoag aPTT (<43) Sec(s) Sodium 133 L (137-145) mmol/L Potassium 5.9 H (3.5-5.1) mmol/L Chloride 117 H (98-107) mmol/L Carbon Dioxide 17 L (22-30) mmol/L BUN 23 H (9-20) mg/dL Glucose 104 H (74-99) mg/dL POC Glucose (mg/dL) (70-110) mg/dL Calcium 7.6 L (8.4-10.2) mg/dL Assessment and Plan (1) Normocytic normochromic anemia Current Visit: Yes Status: Acute Priority: High Code(s): D64.9 - ANEMIA, UNSPECIFIED SNOMED Code(s): 34945331 (2) COVID-19 Current Visit: Yes Status: Acute Priority: High Code(s): U07.1 - COVID-19 SNOMED Code(s): 413139923 (3) Left leg DVT Current Visit: Yes Status: Acute Priority: High Code(s): I82.402 - ACUTE EMBOLISM AND THOMBOS UNSP DEEP VEINS OF L LOW EXTREM SNOMED Code(s): 242590705 Plan: Normocytic, normochromic anemia, anemia of inflammation, and hx of gastric bypass, also acute covid. Ferritin 1230 today (847 on 11/08/22), and iron saturation 84.03%, after receiving blood transfusion on 11/12/22. Ferritin increased from labs from 11/08/22, low concern for acute bleeding/blood loss. Hgb stable today. No iron at this time. Patient did have multiple nutritional deficits, he is receiving vitamins. Copper was not available inpatient, his sister brought him a bottle from home but, patient opened it prior to being sent down to pharmacy so, I told him he cannot take it at this time. I told him he can begin supplementing when he goes home. Instructions for supplementation are in the discharge plan. Doppler studies 11/12/22 showed DVT in left calf. Patient started on low- intensity IV heparin, no bleeding to report, Hemoglobin stable. He has numerous risk factors including prolonged bed rest, COVID-19 infection and concurrent hospitalization. Cardiolipin antibodies negative, beta-2 glycoprotein positive. Pending lupus anticoagulant. Recommendation is for low molecular weight heparin for anticoagulation. There is not a tremendous amount of Data on the use of DOAC with phospholipid syndrome and there are no clinical guidelines supporting its use at this time. Sent Rx, discussed with CM who will verify copay. F/U scheduled and in discharge plan
[2022-11-18] MEDS: HEPARIN SODIUM 1,000 UN/ML (10ML VL) IV PRN (18:14)
[2022-11-18 20:14] LABS: Glucose,Whole Blood 237 mg/dL (70-110)
--- NOTE | 2022-11-18 22:12 | P.PN ---
Subjective Progress Note Date: 11/18/22 Principal diagnosis: Covid 19 Patient is a 62-year-old male who is unvaccinated for COVID-19 patient was brought into the ER for evaluation of weakness no energy mention the patient was not able to get stand up and go to the bathroom patient has been dealing with the diarrhea off and on for couple of weeks, patient was noticed to have a positive covid test, however the patient was not hypoxic and CT abdominal pelvis with few bibasilar patchy groundglass opacity representing atelectasis and no evidence of colitis. On today's evaluation that is 11/18/2022, the patient continues to be afebrile, the patient is breathing comfortably on room air, The patient denies chest pain or shortness of breath, the patient did have occasional dry cough no nausea no vomiting no abdominal pain or any worsening diarrhea Objective - Vital Signs Vital signs: Vital Signs Temp 97.9 F 11/18/22 08:31 Pulse 69 11/18/22 08:31 Resp 16 11/18/22 08:31 BP 120/70 11/18/22 08:31 Pulse Ox 100 11/18/22 08:31 FiO2 Intake & Output 11/17/22 11/18/22 11/18/22 18:59 06:59 18:59 Intake Total 180 157.9 180 Output Total 600 600 300 Balance -420 -442.1 -120 Intake: Intake, IV Titration 157.9 Amount Heparin Sod,Pork in 0.45% 157.9 NaCl 25,000 unit In 0.45 % NaCl 1 250ml.bag @ 10. 254 UNITS/KG/HR 10 mls/hr IV .Q24H [facility] Rx#: [id number] Oral 180 180 Output: Urine 600 600 300 Other: Voiding Method External Catheter External Catheter # Bowel Movements 1 - Exam GENERAL DESCRIPTION: An elderly male lying in bed in no distress RESPIRATORY SYSTEM: Unlabored breathing , decreased breath sounds at bases HEART: S1 S2 regular rate and rhythm , ABDOMEN: Soft , no tenderness EXTREMITIES: No edema feet - Labs CBC & Chem 7: 11/18/22 06:49 11/18/22 06:49 Labs: Abnormal Lab Results - Last 24 Hours (Table) 11/17/22 11/17/22 11/17/22 Range/Units 12:58 14:28 17:01 WBC (3.8-10.6) k/uL RBC (4.30-5.90) m/uL Hgb (13.0-17.5) gm/dL Hct (39.0-53.0) % MCHC (31.0-37.0) g/dL Neutrophils # (1.3-7.7) k/uL APTT 47.3 H (22.0-30.0) sec Sodium (137-145) mmol/L Potassium (3.5-5.1) mmol/L Chloride (98-107) mmol/L Carbon Dioxide (22-30) mmol/L BUN (9-20) mg/dL Glucose (74-99) mg/dL POC Glucose (mg/dL) 232 H 179 H (70-110) mg/dL Calcium (8.4-10.2) mg/dL 11/17/22 11/17/22 11/18/22 Range/Units 17:45 19:38 06:02 WBC (3.8-10.6) k/uL RBC (4.30-5.90) m/uL Hgb (13.0-17.5) gm/dL Hct (39.0-53.0) % MCHC (31.0-37.0) g/dL Neutrophils # (1.3-7.7) k/uL APTT (22.0-30.0) sec Sodium (137-145) mmol/L Potassium 5.7 H (3.5-5.1) mmol/L Chloride (98-107) mmol/L Carbon Dioxide (22-30) mmol/L BUN (9-20) mg/dL Glucose (74-99) mg/dL POC Glucose (mg/dL) 286 H 159 H (70-110) mg/dL Calcium (8.4-10.2) mg/dL 11/18/22 11/18/22 11/18/22 Range/Units 06:49 06:49 06:49 WBC 18.3 H (3.8-10.6) k/uL RBC 2.68 L (4.30-5.90) m/uL Hgb 7.9 L (13.0-17.5) gm/dL Hct 26.6 L (39.0-53.0) % MCHC 29.9 L (31.0-37.0) g/dL Neutrophils # 16.0 H (1.3-7.7) k/uL APTT 38.9 H (22.0-30.0) sec Sodium 133 L (137-145) mmol/L Potassium 5.9 H (3.5-5.1) mmol/L Chloride 117 H (98-107) mmol/L Carbon Dioxide 17 L (22-30) mmol/L BUN 23 H (9-20) mg/dL Glucose 104 H (74-99) mg/dL POC Glucose (mg/dL) (70-110) mg/dL Calcium 7.6 L (8.4-10.2) mg/dL 11/18/22 Range/Units 11:50 WBC (3.8-10.6) k/uL RBC (4.30-5.90) m/uL Hgb (13.0-17.5) gm/dL Hct (39.0-53.0) % MCHC (31.0-37.0) g/dL Neutrophils # (1.3-7.7) k/uL APTT (22.0-30.0) sec Sodium (137-145) mmol/L Potassium (3.5-5.1) mmol/L Chloride (98-107) mmol/L Carbon Dioxide (22-30) mmol/L BUN (9-20) mg/dL Glucose (74-99) mg/dL POC Glucose (mg/dL) 199 H (70-110) mg/dL Calcium (8.4-10.2) mg/dL Assessment and Plan (1) COVID-19 Current Visit: Yes Status: Acute Priority: High Code(s): U07.1 - COVID-19 SNOMED Code(s): 339294820 (2) Diarrhea Current Visit: Yes Status: Acute Priority: High Code(s): R19.7 - DIARRHEA, UNSPECIFIED SNOMED Code(s): 55174761 Plan: 1patient present to hospital generalized weakness which is likely multifactoria l could be related to his diarrhea has not patient did have significant diarrhea and evidence of prerenal status was low potassium, stool for C. diff is negative stool cultures has been obtained and currently pending, patient to continue Questran and advised to increase his probiotic and yogurt intake 2patient with a low-grade fever, the patient did have elevated pro calcitonin, CT angiogram of the chest was negative for PE however did shows right lower lobe infiltrate suspicious for pneumonia 3-patient fever has resolved, patient has shown clinical improvement as for his respiratory status is concerned, patient will continue with Rocephin, while waiting for workup to be finalize as the patient is being Evaluated by orthopedics and neurology for upper extremity weakness Time with Patient: Less than 30
[2022-11-19] MEDS: DEXAMETHASONE SOD PHOSPHATE 4 MG/ML 1 ML VIAL IVP SCH ×5 (00:19→23:32)
[2022-11-19] MEDS ORDERED: SODIUM ZIRCONIUM CYCLOSILICATE 10 GM PACKET PO ONE ×2 (03:00→10:58)
[2022-11-19 06:08] LABS: Glucose,Whole Blood 169 mg/dL (70-110)
[2022-11-19] MEDS: INSULIN ASPART (NovoLOG) 100 UNIT/ML VIAL SQ SCH ×4 (06:14→21:17)
[2022-11-19] MEDS: LEVOTHYROXINE 50 MCG TAB PO SCH (06:15)
[2022-11-19] MEDS: HEPARIN SOD,PORK IN 0.45% NACL 25,000 UNIT in 0.45% NACL 1 250ML.BAG IV SCH ×2 (07:33→16:09)
[2022-11-19] MEDS ORDERED: FUROSEMIDE 10 MG/ML 4 ML VIAL IV STA (08:04)
--- NOTE | 2022-11-19 08:04 | P.NPCON ---
History of Present Illness - Reason for Consult acute renal failure - History of Present Illness Patient is a 62-year-old male who was initially admitted to the hospital with complaints of diarrhea, nausea and vomiting. He tested positive for COVID-19 infection. Patient had significant hypokalemia on initial admission. This has been replaced and potassium is now on the higher side. Patient also had acute kidney injury on initial admission with creatinine of 1.5 and this has improved to 1.0 and 1.1 mg/dL now. Patient has an external catheter. I do not see NAVDEEP inhibitor's or NSAIDs on his med list. Hemoglobin had dropped to 6.5 and 6.8 g/dL. No gross GI bleed noted. Patient is maintained on anticoagulation for left leg DVT and paroxysmal A. fib. Blood pressure noted to be 115 to 1 28 mmHg systolic. Blood sugars are not high. Mild metabolic acidosis noted with CO2 of 17. Past Medical History Past Medical History: Sleep Apnea/CPAP/BIPAP, Thyroid Disorder Additional Past Medical History / Comment(s): thyroid issue. pt reports not using CPAP/BIPAP at HS History of Any Multi-Drug Resistant Organisms: None Reported Additional Past Surgical History / Comment(s): gastric bypass. Umbilical hernia, 6x hernia surgeries, fell & broke hip in 2019 - pt was in [facility] at the time and reports getting a pin in hip. Past Anesthesia/Blood Transfusion Reactions: No Reported Reaction Past Psychological History: Depression Smoking Status: Never smoker Past Alcohol Use History: Occasional Additional Past Alcohol Use History / Comment(s): Patient reports moving to [place] in April 2022 and cutting back on alcohol use. Prior to moving to [place], pt reports drinking one 5th of whiskey a day, but only drinks occasionally now. Pt reports to RN that he drank one 5th of whiskey last Wednesday. Past Drug Use History: None Reported Medications and Allergies Home Medications Medication Instructions Recorded Confirmed Type Calcium Carbonate [Calcium] 600 mg PO DAILY 09/09/22 11/06/22 History Ergocalciferol (Vitamin D2) 1,250 mcg PO MOWE 09/09/22 11/06/22 History [Drisdol (50,000 Iu)] FLUoxetine HCL [PROzac] 20 mg PO DAILY 09/09/22 11/06/22 History Levothyroxine Sodium [Synthroid] 50 mcg PO DAILY 09/09/22 11/06/22 History Magnesium Oxide [Magnesium] 500 mg PO DAILY 09/09/22 11/06/22 History Diclofenac Sodium Gel [Voltaren 2 gm TOPICAL QID PRN 11/06/22 11/06/22 History Gel] Folic Acid 0.4 mg PO DAILY 11/06/22 11/06/22 History Ibuprofen [Motrin] 600 mg PO TID PRN 11/06/22 11/06/22 History Thiamine [Vitamin B-1] 100 mg PO DAILY 11/06/22 11/06/22 History Enoxaparin [Lovenox] 120 mg SQ Q12H #60 each 11/18/22 Rx Allergies Allergy/AdvReac Type Severity Reaction Status Date / Time No Known Allergies Allergy Verified 11/06/22 14:38 Physical Exam Vitals: Vital Signs Temp Pulse Pulse Resp BP Pulse Ox 11/19/22 03:29 97.6 F 62 16 123/71 96 11/18/22 23:20 69 16 116/72 97 11/18/22 19:21 97.7 F 68 16 121/71 96 11/18/22 16:24 97.6 F 71 16 128/74 99 11/18/22 08:31 97.9 F 69 16 120/70 100 Intake and Output 11/18/22 11/19/22 11/19/22 22:59 06:59 14:59 Intake Total 312.4 68.112 Output Total 200 550 Balance 112.4 -481.888 Intake: Intake, IV Titration 72.4 68.112 Amount Heparin Sod,Pork in 0.45% 72.4 68.112 NaCl 25,000 unit In 0.45 % NaCl 1 250ml.bag @ 10. 254 UNITS/KG/HR 10 mls/hr IV .Q24H [facility] Rx#: [id number] Oral 240 Output: Urine 200 550 Other: Voiding Method External Catheter External Catheter Weight 120.5 kg Patient is awake, comfortable, no acute distress. Examination of the heart S1 and S2 Examination lungs bilateral breath sounds are heard Abdomen is soft obese nontender Examination of lower extremities shows no significant edema [employer] exam grossly intact Results - Lab Results Most recent lab results Calcium 7.6 mg/dL (8.4-10.2) L 11/18/22 06:49 Magnesium 1.9 mg/dL (1.6-2.3) 11/18/22 06:49 11/18/22 06:49 11/19/22 00:04 Assessment and Plan Assessment: 1. Hyperkalemia associated with possible underlying GI bleed and urine retention. Blood sugars are not significantly elevated. Patient is not maintained on NAVDEEP inhibitor's or NSAIDs. I will check a bladder scan and ultrasound of the kidneys. Stool for occult blood was negative on 11/16/2022 2. Acute kidney injury on initial admission currently improved 3. Acute hypoxic respiratory failure secondary to covid pneumonia 4. DVT left leg 5. Paroxysmal A. fib 6. Anemia with no obvious GI bleed. Stool for occult blood was negative. Plan: Check bladder scan Check ultrasound of the kidneys Treat hyperkalemia with IV medications and continue with local more for now Switch Lasix to IV. Add oral sodium bicarb Thank you for the consultation. We will continue to follow the patient with you during his hospitalization
--- NOTE | 2022-11-19 08:15 | P.PN ---
Subjective Progress Note Date: 11/19/22 Principal diagnosis: Bilateral upper extremity weakness; back pain Patient seen and examined this morning. Patient is resting in bed. He denies any pain at this time. He has been afebrile, denies nausea/vomiting, or chest pain. MRI of the cervical spine results have been discussed with patient. He verbalizes understanding. Explained to patient that we are waiting for the [facility] MRI to be performed to determine POC. Objective - Vital Signs Vital signs: Vital Signs Temp 97.6 F 11/19/22 03:29 Pulse 62 11/19/22 03:29 Resp 16 11/19/22 03:29 BP 123/71 11/19/22 03:29 Pulse Ox 96 11/19/22 03:29 FiO2 Intake & Output 11/18/22 11/19/22 11/19/22 18:59 06:59 18:59 Intake Total 252.4 308.112 Output Total 500 550 Balance -247.6 -241.888 Weight 120.5 kg Intake: Intake, IV Titration 72.4 68.112 Amount Heparin Sod,Pork in 0.45% 72.4 68.112 NaCl 25,000 unit In 0.45 % NaCl 1 250ml.bag @ 10. 254 UNITS/KG/HR 10 mls/hr IV .Q24H [facility] Rx#: [id number] Oral 180 240 Output: Urine 500 550 Other: Voiding Method External Catheter External Catheter - Exam Physical Examination General: The patient is awake and alert, in no acute distress Skin: Skin is warm and dry with no obvious rashes or lesions. Hairy patches absent, no dorsal skin dimples, no cafe au lait spots, and no surgical incisions. Eye: Pupils are equal, round and reactive to light, extra-ocular movements are intact; there is normal conjunctiva bilaterally. Neck: The neck is supple, there is no tenderness and ROM intact. Cardiovascular: There is a regular rate and rhythm. No murmur, rub or gallop is appreciated. Respiratory: Lungs are clear to auscultation, respirations are non-labored, breath sounds are equal. Gastrointestinal: Soft, non-distended, non-tender abdomen. Back: There is no tenderness to palpation in the midline, paralumbar, parathoracic or buttocks region. There is no obvious deformity . Musculoskeletal: ROM limited secondary to pain and stiffness from surgical procedure. Muscle strength in all major muscle groups of right upper extremity 3/5, left upper extremity 4/5, bilateral lower extremities 4-/5. Neurological: CN 2-12 intact. There are no obvious motor or sensory deficits. Movement and coordination equal and intact. Sensory exam to light touch intact C5-T1 and intact from L2-S1. Reflexes 2/4 in bilateral upper and lower extremities. Negative Hoffmans, babinski, and clonus signs. Psychiatric: Cooperative, appropriate mood & affect, normal judgment. - Labs CBC & Chem 7: 11/18/22 06:49 11/19/22 00:04 Labs: Abnormal Lab Results - Last 24 Hours (Table) 11/18/22 11/18/22 11/18/22 Range/Units 06:49 11:50 16:36 APTT (22.0-30.0) sec Sodium 133 L (137-145) mmol/L Potassium 5.9 H (3.5-5.1) mmol/L Chloride 117 H (98-107) mmol/L Carbon Dioxide 17 L (22-30) mmol/L BUN 23 H (9-20) mg/dL Glucose 104 H (74-99) mg/dL POC Glucose (mg/dL) 199 H 232 H (70-110) mg/dL Calcium 7.6 L (8.4-10.2) mg/dL 11/18/22 11/19/22 11/19/22 Range/Units 20:12 00:04 00:04 APTT 48.2 H (22.0-30.0) sec Sodium (137-145) mmol/L Potassium 5.9 H (3.5-5.1) mmol/L Chloride (98-107) mmol/L Carbon Dioxide (22-30) mmol/L BUN (9-20) mg/dL Glucose (74-99) mg/dL POC Glucose (mg/dL) 237 H (70-110) mg/dL Calcium (8.4-10.2) mg/dL 11/19/22 Range/Units 06:04 APTT (22.0-30.0) sec Sodium (137-145) mmol/L Potassium (3.5-5.1) mmol/L Chloride (98-107) mmol/L Carbon Dioxide (22-30) mmol/L BUN (9-20) mg/dL Glucose (74-99) mg/dL POC Glucose (mg/dL) 169 H (70-110) mg/dL Calcium (8.4-10.2) mg/dL Assessment and Plan Assessment: 1. Bilateral upper extremity weakness 2. Left knee pain Plan: Awaiting MRI of the thoracic and lumbar spine to be performed Appreciate medical management Pain management - Tylenol DVT prophylaxis - heparin gtt GI prophylaxis - Protonix; Tums PT/OT - weightbearing as tolerated with walker. Appreciate consult
[2022-11-19 08:48] LABS: Basophils # (A) 0.1 k/uL (0-0.2); Basophils % (A) 0 %; Eosinophils % (A) 0 %; HCT 26.4 % (39.0-53.0); HGB 8.1 gm/dL (13.0-17.5); Hypochromasia Marked; Lymphocytes # (A) 1.8 k/uL (1.0-4.8); Lymphocytes % (A) 8 %; MCH 29.8 pg (25.0-35.0); MCHC 30.5 g/dL (31.0-37.0); MCV 97.5 fL (80.0-100.0); Mean Platelet Volume 9.5; Monocytes # (A) 0.5 k/uL (0-1.0); Monocytes % (A) 3 %; Neutrophils # (A) 19.1 k/uL (1.3-7.7); Neutrophils % (A) 88 %; Platelet Count 293 k/uL (150-450); RBC 2.71 m/uL (4.30-5.90); RDW 15.3 % (11.5-15.5); WBC 21.6 k/uL (3.8-10.6)
[2022-11-19 09:00] LABS: C Reactive Protein 0.7 mg/dL (<1.0); Calcium 7.7 mg/dL (8.4-10.2); Potassium 5.6 mmol/L (3.5-5.1)
[2022-11-19] MEDS: CHOLESTYRAMINE (WITH SUGAR) 4 GM PACKET PO SCH ×2 (09:43→17:02)
[2022-11-19] MEDS: PANTOPRAZOLE 40 MG/10 ML VIAL IVP SCH ×2 (09:44→21:12)
[2022-11-19 09:45] LABS: Erythrocyte Sedimentation Rate 8 mm/hr (0-15)
[2022-11-19] MEDS: FLUoxetine HCL 20 MG CAP PO SCH (09:46)
[2022-11-19] MEDS: CHOLECALCIFEROL 25 MCG (1000 IU) TABLET PO SCH (09:46)
--- NOTE | 2022-11-19 09:46 | US ---
EXAMINATION TYPE: US kidneys/renal and bladder DATE OF EXAM: 11/19/2022 COMPARISON: CT CLINICAL HISTORY: asha. ASHA, gastric bypass. EXAM MEASUREMENTS: Right Kidney: 10.9 x 5.9 x 5.8 cm Left Kidney: 10.8 x 4.6 x 5.5 cm Right Kidney: No hydronephrosis or masses seen. Hypoechoic area seen adjacent to the kidney-?sonograp hic sweat sign? Left Kidney: Indistinct, hypoechoic area seen upper pole: 1.8 x 1.7 x 1.7 cm. Hyperechoic focus seen medially: 1.0 x 0.6 x 0.8 cm. Hypoechoic area seen adjacent to the kidney-?sonographic sweat sign? Bladder: Yes Bilateral Jets seen: No IMPRESSION: 1. Nonobstructing left-sided nephrolithiasis. 2. Indistinct renal lesions may reflect cysts.
[2022-11-19] MEDS: SODIUM BICARBONATE TAB 650 MG TAB PO SCH ×2 (09:47→21:12)
[2022-11-19] MEDS: DILTIAZEM ORAL 30 MG TAB PO SCH ×3 (09:48→21:12)
[2022-11-19] MEDS: MAGNESIUM OXIDE 400 MG TAB PO SCH (09:49)
[2022-11-19] MEDS: CALCIUM CARBONATE 500 MG CHEWABLE PO SCH ×3 (09:49→21:12)
[2022-11-19] MEDS: FOLIC ACID 1 MG TAB PO SCH (09:50)
[2022-11-19] MEDS: ZINC SULFATE 220 MG CAP PO SCH (09:50)
[2022-11-19] MEDS: THIAMINE 100 MG TAB PO SCH (09:50)
[2022-11-19] MEDS: PYRIDOXINE 50 MG TAB PO SCH ×2 (09:50→21:35)
[2022-11-19] MEDS: ASCORBIC ACID 500 MG TAB PO SCH ×2 (09:50→21:12)
[2022-11-19] MEDS: HEPARIN SODIUM 1,000 UN/ML (10ML VL) IV PRN ×2 (10:21→17:13)
[2022-11-19 11:43] LABS: Glucose,Whole Blood 197 mg/dL (70-110)
--- NOTE | 2022-11-19 12:23 | P.PN ---
Subjective Progress Note Date: 11/19/22 Principal diagnosis: Covid 19 Patient is a 62-year-old male who is unvaccinated for COVID-19 patient was brought into the ER for evaluation of weakness no energy mention the patient was not able to get stand up and go to the bathroom patient has been dealing with the diarrhea off and on for couple of weeks, patient was noticed to have a positive covid test, however the patient was not hypoxic and CT abdominal pelvis with few bibasilar patchy groundglass opacity representing atelectasis and no evidence of colitis. On today's evaluation that is 11/19/2022, the patient remains to be afebrile, the patient is breathing comfortably on room air, The patient denies chest pain or shortness of breath, the patient did have occasional cough but no sputum production no nausea no vomiting no abdominal pain and no diarrhea Objective - Vital Signs Vital signs: Vital Signs Temp 98.0 F 11/19/22 12:00 Pulse 70 11/19/22 12:00 Resp 16 11/19/22 12:00 BP 124/74 11/19/22 12:00 Pulse Ox 98 11/19/22 12:00 FiO2 Intake & Output 11/18/22 11/19/22 11/19/22 18:59 06:59 18:59 Intake Total 252.4 308.112 255.251 Output Total 500 550 850 Balance -247.6 -241.888 -594.749 Weight 120.5 kg Intake: Intake, IV Titration 72.4 68.112 75.251 Amount Heparin Sod,Pork in 0.45% 72.4 68.112 75.251 NaCl 25,000 unit In 0.45 % NaCl 1 250ml.bag @ 10. 254 UNITS/KG/HR 10 mls/hr IV .Q24H [facility] Rx#: [id number] Oral 180 240 180 Output: Urine 500 550 850 Other: Voiding Method External Catheter External Catheter External Catheter # Bowel Movements 1 - Exam GENERAL DESCRIPTION: An elderly male lying in bed in no distress RESPIRATORY SYSTEM: Unlabored breathing , decreased breath sounds at bases HEART: S1 S2 regular rate and rhythm , ABDOMEN: Soft , no tenderness EXTREMITIES: No edema feet - Labs CBC & Chem 7: 11/19/22 07:50 11/19/22 07:44 Labs: Abnormal Lab Results - Last 24 Hours (Table) 11/18/22 11/18/22 11/19/22 Range/Units 16:36 20:12 00:04 WBC (3.8-10.6) k/uL RBC (4.30-5.90) m/uL Hgb (13.0-17.5) gm/dL Hct (39.0-53.0) % MCHC (31.0-37.0) g/dL Neutrophils # (1.3-7.7) k/uL APTT 48.2 H (22.0-30.0) sec Sodium (137-145) mmol/L Potassium (3.5-5.1) mmol/L Chloride (98-107) mmol/L Carbon Dioxide (22-30) mmol/L BUN (9-20) mg/dL Glucose (74-99) mg/dL POC Glucose (mg/dL) 232 H 237 H (70-110) mg/dL Calcium (8.4-10.2) mg/dL 11/19/22 11/19/22 11/19/22 Range/Units 00:04 06:04 07:44 WBC (3.8-10.6) k/uL RBC (4.30-5.90) m/uL Hgb (13.0-17.5) gm/dL Hct (39.0-53.0) % MCHC (31.0-37.0) g/dL Neutrophils # (1.3-7.7) k/uL APTT (22.0-30.0) sec Sodium 133 L (137-145) mmol/L Potassium 5.9 H 5.6 H (3.5-5.1) mmol/L Chloride 117 H (98-107) mmol/L Carbon Dioxide 16 L (22-30) mmol/L BUN 25 H (9-20) mg/dL Glucose 151 H (74-99) mg/dL POC Glucose (mg/dL) 169 H (70-110) mg/dL Calcium 7.7 L (8.4-10.2) mg/dL 11/19/22 11/19/22 11/19/22 Range/Units 07:44 07:50 11:43 WBC 21.6 H (3.8-10.6) k/uL RBC 2.71 L (4.30-5.90) m/uL Hgb 8.1 L (13.0-17.5) gm/dL Hct 26.4 L (39.0-53.0) % MCHC 30.5 L (31.0-37.0) g/dL Neutrophils # 19.1 H (1.3-7.7) k/uL APTT 40.0 H (22.0-30.0) sec Sodium (137-145) mmol/L Potassium (3.5-5.1) mmol/L Chloride (98-107) mmol/L Carbon Dioxide (22-30) mmol/L BUN (9-20) mg/dL Glucose (74-99) mg/dL POC Glucose (mg/dL) 197 H (70-110) mg/dL Calcium (8.4-10.2) mg/dL Assessment and Plan (1) COVID-19 Current Visit: Yes Status: Acute Priority: High Code(s): U07.1 - COVID-19 SNOMED Code(s): 939736456 (2) Diarrhea Current Visit: Yes Status: Acute Priority: High Code(s): R19.7 - DIARRHEA, UNSPECIFIED SNOMED Code(s): 49776194 Plan: 1patient present to hospital generalized weakness which is likely mul tifactorial could be related to his diarrhea has not patient did have significant diarrhea and evidence of prerenal status was low potassium, stool for C. diff is negative stool cultures has been obtained and currently pending, patient to continue Questran and advised to increase his probiotic and yogurt intake 2patient with a low-grade fever, the patient did have elevated pro calcitonin, CT angiogram of the chest was negative for PE however did shows right lower lobe infiltrate suspicious for pneumonia 3-patient fever has resolved, patient will continue with Rocephin and transitioned oral antibiotic on discharge 4patient did have a abnormal MRI of the cervical spine with a questionable d iscitis reported by radiologist however the patient did have normal sed rate and a CRP that we'll go against a diagnosis of discitis, plus the patient denies having any pain to the cervical spine/neck area, orthopedics/spine surgery is closely following the patient Time with Patient: Less than 30
[2022-11-19] MEDS: CYANOCOBALAMIN 1,000 MCG/ML 1 ML VIAL IM SCH (12:36)
--- NOTE | 2022-11-19 15:04 | MR ---
EXAMINATION TYPE: MR thoracic spine wo con DATE OF EXAM: 11/19/2022 2:50 PM COMPARISON: NONE HISTORY: Generalized weakness and inability to ambulate Multiplanar MultiSpin echo imaging of the thoracic spine was performed. Examination is limited given artifact of uncertain etiology. Scoliotic curvature convex to the right. Disc spaces: Moderate multilevel degenerative disc space narrowing with small disc protrusion at T7-T 8. Mild ventral cord contact noted without myelopathy. No additional herniations or protrusions seen. No evidence for central stenosis. Spinal canal: No evidence for canal stenosis. No intrinsic or extrinsic lesion. Thoracic spinal cord: Thoracic spinal cord is of normal caliber and signal. Paraspinal soft tissues: No evidence for paraspinal mass. No destructive lesions seen. Vertebral segments: No evidence for fracture or bony lesion. Bone marrow signal is heterogenous which could reflect bone marrow reconversion. IMPRESSION: 1. Multilevel degenerative disc disease with disc protrusion and ventral cord contact at T7-T8. See beth martinez.
[2022-11-19 16:41] LABS: Glucose,Whole Blood 267 mg/dL (70-110)
--- NOTE | 2022-11-19 17:10 | P.PN ---
Subjective Progress Note Date: 11/19/22 Principal diagnosis: anemia Pt in f/u is doing well today. Denies bleeding. Swelling in the LLE is moderate, denies pain in the leg, and denies SOB, CP, and dizziness. Objective - Vital Signs Vital signs: Vital Signs Temp 98.0 F 11/19/22 12:00 Pulse 70 11/19/22 12:00 Resp 16 11/19/22 13:20 BP 124/74 11/19/22 12:00 Pulse Ox 98 11/19/22 12:00 FiO2 Intake & Output 11/18/22 11/19/22 11/19/22 18:59 06:59 18:59 Intake Total 252.4 308.112 305.251 Output Total 056 753 3479 Balance -247.6 -241.888 -1444.749 Weight 120.5 kg Intake: Intake, IV Titration 72.4 68.112 125.251 Amount Heparin Sod,Pork in 0.45% 72.4 68.112 75.251 NaCl 25,000 unit In 0.45 % NaCl 1 250ml.bag @ 10. 254 UNITS/KG/HR 10 mls/hr IV .Q24H [facility] Rx#: [id number] cefTRIAXone 1 gm In 50 Sodium Chloride 0.9% 50 ml @ 100 mls/hr IVPB Q24HR COUNT INCLUDES THE [facility] Rx#:[id number] Oral 180 240 180 Output: Urine 070 735 7854 Other: Voiding Method External Catheter External Catheter External Catheter # Bowel Movements 1 - Constitutional General appearance: Present: average body habitus, cooperative, no acute distress - EENT Eyes: Present: anicteric sclerae, EOMI ENT: Present: hearing grossly normal - Neck Neck: Present: normal ROM. Absent: lymphadenopathy - Respiratory Respiratory: bilateral: CTA - Cardiovascular Rhythm: regular Heart sounds: normal: S1, S2 Abnormal Heart Sounds: Absent: systolic murmur, diastolic murmur, rub, S3 Gallop, S4 Gallop, click, other - Peripheral edema leg Peripheral Edema: right: None, left: 3+, Pitting - Gastrointestinal General gastrointestinal: Present: soft. Absent: distended, tenderness - Integumentary Integumentary: Present: normal - Neurologic Neurologic Comment(s): grossly Neurologic: Present: CNII-XII intact - Musculoskeletal Musculoskeletal: Present: strength equal bilaterally. Absent: right sided weakness, left sided weakness - Psychiatric Psychiatric: Present: A&O x's 3, appropriate affect, intact judgment & insight - Labs CBC & Chem 7: 11/19/22 07:50 11/19/22 07:44 Labs: Abnormal Lab Results - Last 24 Hours (Table) 11/18/22 11/18/22 11/19/22 Range/Units 16:36 20:12 00:04 WBC (3.8-10.6) k/uL RBC (4.30-5.90) m/uL Hgb (13.0-17.5) gm/dL Hct (39.0-53.0) % MCHC (31.0-37.0) g/dL Neutrophils # (1.3-7.7) k/uL APTT 48.2 H (22.0-30.0) sec Sodium (137-145) mmol/L Potassium (3.5-5.1) mmol/L Chloride (98-107) mmol/L Carbon Dioxide (22-30) mmol/L BUN (9-20) mg/dL Glucose (74-99) mg/dL POC Glucose (mg/dL) 232 H 237 H (70-110) mg/dL Calcium (8.4-10.2) mg/dL 11/19/22 11/19/22 11/19/22 Range/Units 00:04 06:04 07:44 WBC (3.8-10.6) k/uL RBC (4.30-5.90) m/uL Hgb (13.0-17.5) gm/dL Hct (39.0-53.0) % MCHC (31.0-37.0) g/dL Neutrophils # (1.3-7.7) k/uL APTT (22.0-30.0) sec Sodium 133 L (137-145) mmol/L Potassium 5.9 H 5.6 H (3.5-5.1) mmol/L Chloride 117 H (98-107) mmol/L Carbon Dioxide 16 L (22-30) mmol/L BUN 25 H (9-20) mg/dL Glucose 151 H (74-99) mg/dL POC Glucose (mg/dL) 169 H (70-110) mg/dL Calcium 7.7 L (8.4-10.2) mg/dL 11/19/22 11/19/22 11/19/22 Range/Units 07:44 07:50 11:43 WBC 21.6 H (3.8-10.6) k/uL RBC 2.71 L (4.30-5.90) m/uL Hgb 8.1 L (13.0-17.5) gm/dL Hct 26.4 L (39.0-53.0) % MCHC 30.5 L (31.0-37.0) g/dL Neutrophils # 19.1 H (1.3-7.7) k/uL APTT 40.0 H (22.0-30.0) sec Sodium (137-145) mmol/L Potassium (3.5-5.1) mmol/L Chloride (98-107) mmol/L Carbon Dioxide (22-30) mmol/L BUN (9-20) mg/dL Glucose (74-99) mg/dL POC Glucose (mg/dL) 197 H (70-110) mg/dL Calcium (8.4-10.2) mg/dL Assessment and Plan (1) Normocytic normochromic anemia Current Visit: Yes Status: Acute Priority: High Code(s): D64.9 - ANEMIA, UNSPECIFIED SNOMED Code(s): 61772868 (2) COVID-19 Current Visit: Yes Status: Acute Priority: High Code(s): U07.1 - COVID-19 SNOMED Code(s): 388251991 (3) Left leg DVT Current Visit: Yes Status: Acute Priority: High Code(s): I82.402 - ACUTE EMBOLISM AND THOMBOS UNSP DEEP VEINS OF L LOW EXTREM SNOMED Code(s): 902592670 Plan: Normocytic, normochromic anemia, anemia of inflammation, and hx of gastric bypass, also acute covid. Ferritin on 11/16 1230 (847 on 11/08/22), and iron saturation 84.03%, after receiving blood transfusion on 11/12/22. Ferritin incr eased from labs from 11/08/22, low concern for acute bleeding/blood loss. Hgb stable today (8.1), trending up. No iron at this time. Patient did have multiple nutritional deficits, he is receiving vitamins. Copper was not available inpatient, his sister brought him a bottle from home but, patient opened it prior to being sent down to pharmacy so, he cannot take it at this time. He can begin supplementing when he goes home. Instructions for supplementation are in the discharge plan. Doppler studies 11/12/22 showed DVT in left calf. Low-intensity IV heparin, no bleeding to report, Hemoglobin stable. He has numerous risk factors including prolonged bed rest, COVID-19 infection and concurrent hospitalization. Cardiolipin antibodies negative, beta-2 glycoprotein positive. Pending lupus anticoagulant. Recommendation is for low molecular weight heparin for anticoagulation. There is not a tremendous amount of Data on the use of DOAC with phospholipid syndrome and there are no clinical guidelines supporting its use at this time. Spoke with CM, copay for lovenox $700, which is unaffordable for patient. Arixtra ordered today. CM states prior auth needed, pending. F/U scheduled and in discharge plan
[2022-11-19 20:10] LABS: Glucose,Whole Blood 185 mg/dL (70-110)
--- NOTE | 2022-11-20 03:04 | P.PN ---
Subjective 62-year-old male in the emergency department for diarrhea. She notes diarrhea starting and he asked progressively gotten worse. He reports he stood up from a chair and had an episode of diarrhea, admits he still maintains bowel function. He has not tried anything for his symptoms. He denies nausea, vomiting, abdominal pain, palpitations, fevers. Denies recent travel or recent antibiotic use. He is scheduled to have his first colonoscopy in january of 2023. Patient had an initial lab work is remarkable for WBC is 11.4, hemoglobin 8.7, INR 1.2, sodium 133, potassium 2.6 lactic acid 2.9, calcium 6.3, magnesium 0.8, lipase 60, COVID positive. I interpreted the following; CT abdomen without contrast remarkable for fluid filled colon without focal wall thickening or surrounding inflammatory changes. Patient was given 2 L fluids, potassium, magnesium and calcium during his course of the ED. 11/08/2022 Patient is seen and evaluated on selective care unit; he went into atrial fibrillation with rapid ventricular response he was transferred to the third floor/selective minute. The patient did not have any symptoms of heart racing or fluttering and no dizziness or lightheadedness and no presyncope or syncope and no symptoms of chest pain or chest discomfort or shortness of breath. No prior history of atrial fibrillation. No history of coronary artery disease or congestive heart failure or cardiac arrhythmia and the patient never seen a manager spa in the past. Beside that no history of diabetes or hypertension or dyslipidemia. The patient was started initially on Cardizem drip but his pressure did go down and for that reason he was switched into amiodarone IV and subsequently con verted to normal sinus mechanism and since then he has been maintaining normal sinus mechanism. Further investigation was performed including CBC and that showed a hemoglobin of 7.7. The patient has no history of bleeding. Beside that he underwent a computed tomography scan of the abdomen and pelvis because of the abdominal discomfort that showed no acute abnormalities. The troponin came in to be slightly elevated likely secondary to tachycardia. The EKG showed sinus rhythm now with no significant ST or T-wave abnormalities. Blood work reveals mild elevation of troponin; Patient has been evaluated by cardiology and recommended to continue with IV fluids, replace electrolytes; IV amiodarone is to be discontinued patient is transition to oral dose daily 11/09/2022 Patient is seen and evaluated in follow-up this morning and continues to feel generalized weakness and continues with loose stools. Per nursing staff when assisting to clean the patient up patient was significantly weak on the right. Patient denied any headache, dizziness, or lightheadedness. Will obtain a CT of the brain and also consult neurology. Recommend PT/OT therapy evaluation for significant weakness. C. diff testing was negative on the stool and will add Imodium and encourage oral intake and advance as tolerated. Patient is maintaining on vitamins and zinc supplements along with subcutaneous heparin with anxiety following closely. Patient denies chest pain or shortness of breath. Afebrile. Recommend a.m. labs as well. 11/10/2022 Patient is seen in follow-up today with multiple medical consultations including cardiology, hematology, infectious disease, and now neurology following. Patien t with significant weakness in all upper and lower extremities with neurology undergoing workup recommending aspirin as patient is not on any anticoagulation at this time. Cardiology is following and patient was transitioned back to IV Cardizem although being changed to oral with close monitoring. Magnesium found to be significantly low at 1.2 and will replace per protocol and recommend repeat labs. Hemoglobin is mildly low at 7.4 and undergoing anemia workup with hematology following. Patient with Covid and extreme weakness will need ECF and discharge planning in process. Recommend close monitoring of labs and replace electrolytes per protocol. Patient was started on Imodium as C. diff testing 2 was negative. Patient continues to have loose stools although somewhat improved. Encouraged oral intake and increased activity as tolerated. Recommend PT/OT therapy daily. Patient denies chest pain or shortness of breath. Patient is 97% on room air. Patient will continue on vitamin and zinc supplements with anxiety following closely. Recommend gentle IV hydration. 11/11/2022 Patient is seen and evaluated in follow-up with multiple medical consultations following including infectious disease and neurology. Oncology following undergoing anemia workup. Hemoglobin was found to be 6.5 today and will order 1 unit of PRBC and recommend close monitoring. No active bleeding noted. Patient was started on baby aspirin per neurology and scheduled to undergo MRI of the cervical spine today. Patient continues with significant weakness and will need rehab upon discharge. Patient is maintained on vitamin and zinc supplements and was also being followed by cardiology. Adjustments to medications being done and patient is on oral Cardizem. Will follow-up with repeat labs. Patient is afebrile and denies shortness of breath. Patient clinically appears to be improving. Per nursing staff patient is incontinent of stool in continues to be somewhat loose although less frequent. C. diff testing was negative and stool cultures are negative. Encouraged oral intake. Will discuss with case management about discharge planning to ECF as he will require a Covid hub. 11/12/2022 Patient is seen and evaluated in follow-up today with multiple medical consultations following including infectious disease, cardiology, neurology. Patient's hemoglobin is low again at 6.8 and will give 1 unit. Recommend holding aspirin. Patient did have an elevated d-dimer and CTA was ordered. GI was also consulted for anemia. Patient continues to have incontinence of stool and loose stools and is maintained on Questran and will be given Imodium as needed. Patient continues with generalized weakness and fatigue and also having some lower extremity pain and swelling and have ordered Dopplers of bilateral lower extremities as well. Patient with Covid vitamin and zinc supplements and anticoagulation with subcu heparin. Hematology also following for anemia. Recommend repeat CBC this evening and will transfuse another unit as well. Cardiology following and adjustments to medications being made and patient also being started on low-dose diuretics. Patient is having low-grade temps of 99.3- 99.6 and patient continues to be 95% or above on room air. Blood pressure on the lower side although stable. Stool cultures and C. diff testing have been negative. Patient started on antibiotics per ID recommendations in the form of Zithromax and ceftriaxone. Reviewed iron studies which are low and will give IV iron as well. Electrolytes continue to be low and will replace per protocol. Patient will need ECF once stabilized and discharged 11/13/2022 Patient is seen today with multiple medical consultations following and undergoing neurological workup and having bilateral upper and lower extremity weakness. Neurology recommends orthopedic consultation which is currently pending. Patient did have some movement in his diarrhea and reports becoming more formed and less frequent. Patient continues to be incontinent of this. Patient being started on antibiotics with anxiety following an also continues to have anemia. GI recommending continuing with hematology workup. Multiple images including MRIs and pending at time. Patient with significant weakness will be going to rehab when stable. A.m. labs are pending. 11/14/2022 This is a pleasant 62 years old male with Covid pneumonia and bacterial pneumonia especially in the right lower lobe. His been covered with Zithromax and ceftriaxone with ID team and pulmonary team on the case. His breathing looks improvement, now much tachypnea or dyspnea. She is complaining of from bilateral upper extremity weakness, MRI ordered by orthopedic team showing spinal stenosis of C5 to C6 with possible osteo-discitis of L3-L4 and orthopedic team R following closely. Also he is on dexamethasone Patient had ultrasound of the legs showing no DVT on the right leg with non- occlusive thrombosis of the left leg. Hematology team are currently following with and he is patient on subcutaneous heparin. Patient still have diarrhea about 3 times per day yesterday no abdominal pain or vomiting. Patient currently on Zithromax and ceftriaxone, oral Lasix and normal saline 75 mL/h 11/15/2022 Patient Covid pneumonia is improving and he has minimal respiratory symptoms, no dyspnea at rest, patient is not working, no chest pain, occasional coughing, he is saturating well and he continued on treatment with dexamethasone which is helping also has a spine disease as he has C5-C6 stenosis orthopedic team on the case, no surgical intervention Also his continued on Zithromax and ceftriaxone for his pneumonia with ID team on the case. Patient has left leg swelling most likely secondary to nonocclusive DVT however patient could not get anticoagulation because of his severe anemia, hematology input is appreciated, anticoagulation has more risks than benefits. We are going to check occult blood in the stool, hemoglobin today slightly going down 7.3. However anemia workup showing some evidence of anemia of chronic disease patient also with A. fib but no need for intervention for this purpose as her score 0. Garbage Collector Driver. 11/16/2022 Patient still has bilateral upper extremity weakness mainly on the right side, thought secondary to C5-C6 is stenosis with no plan for surgical intervention by orthopedic team. Patient also on dexamethasone for Covid pneumonia and Zithromax ceftriaxone for possible bacterial superinfection especially in the right lower lobe. Her saturation is acceptable. Blood pressure is stable low-normal. There is no evidence of bleeding, occult blood in the stool is negative. Patient has evidence of left DVT, his anemia although severe as most likely secondary to anemia of chronic disease, repeat anemia workup was requested, I discussed the case with hematology team, possibly we will start him on anticoagulation once workup is finished. No need for anticoagulation or aspirin for A. fib per Garbage Collector Driver. No need for aspirin also per neurologist. 11/17/2022 Patient awake sitting up in bed looks comfortable. His breathing is improved while continue current antibiotic Patient is still have weakness more the right arm and left arm, Orthopedic team on the case and they recommended MRI of the whole spine which is pending. Also I discussed with the bedside nurse foreign senior. He still on heparin drip for his left leg DVT, benefits more than risk. Monitor hemoglobin 11/18/2022 Patient sitting up in bed does not look in distress, he does not have new complaint His been followed by orthopedic team and MRI of the spine is pending for his right upper extremity weakness more on the right side. Other than that his her pneumonia significantly improved and currently he is on ceftriaxone. Also he is on dexamethasone for his Covid infection. Patient is tolerated heparin drip. For his left leg DVT with hematology team recommendation. Hemoglobin today actually improvement 7.9. Patient would benefit from EGD/colonoscopy as an outpatient. Normal saline was discontinued. 11/19/2022 Patient sitting up in bed denies any complaint. He continue on ceftriaxone for right lower lobe pneumonia and dexamethasone for Covid pneumonia. Also he is on heparin drip for left leg DVT, which is mildly swollen compared to the right side. Patient with persistent hyperkalemia with ultrasonic seaming machine operator consulted, patient is started on IV Lasix, and sodium bicarbonate and check renal ultrasound. Orthopedic team following, MRI of the spine pending. Objective - Vital Signs Vital signs: Vital Signs Temp 98.0 F 11/19/22 12:00 Pulse 70 11/19/22 12:00 Resp 16 11/19/22 12:00 BP 124/74 11/19/22 12:00 Pulse Ox 98 11/19/22 12:00 FiO2 Intake & Output 11/18/22 11/19/22 11/19/22 18:59 06:59 18:59 Intake Total 252.4 308.112 255.251 Output Total 500 550 850 Balance -247.6 -241.888 -594.749 Weight 120.5 kg Intake: Intake, IV Titration 72.4 68.112 75.251 Amount Heparin Sod,Pork in 0.45% 72.4 68.112 75.251 NaCl 25,000 unit In 0.45 % NaCl 1 250ml.bag @ 10. 254 UNITS/KG/HR 10 mls/hr IV .Q24H [facility] Rx#: [id number] Oral 180 240 180 Output: Urine 500 550 850 Other: Voiding Method External Catheter External Catheter External Catheter # Bowel Movements 1 - Exam -GENERAL: The patient is alert and oriented x3, not in any acute distress. Well developed, well nourished. Generally weak -HEENT: Pupils are round and equally reacting to light. EOMI. No scleral icterus. No conjunctival pallor. Normocephalic, atraumatic. No pharyngeal erythema. No thyromegaly. Dry mucous membranes, mild CARDIOVASCULAR: S1 and S2 present. No murmurs, rubs, or gallops. PULMONARY: Chest is clear to auscultation, no wheezing or crackles. ABDOMEN: Soft, nontender, nondistended, normoactive bowel sounds. No palpable organomegaly. MUSCULOSKELETAL: No joint swelling or deformity. -EXTREMITIES: No cyanosis, clubbing, or pedal edema. left leg swelling NEUROLOGICAL: Gross neurological examination did not reveal any focal deficits. SKIN: No rashes. no petechiae. - Labs CBC & Chem 7: 11/19/22 07:50 11/19/22 07:44 Labs: Abnormal Lab Results - Last 24 Hours (Table) 11/18/22 11/18/22 11/19/22 Range/Units 16:36 20:12 00:04 WBC (3.8-10.6) k/uL RBC (4.30-5.90) m/uL Hgb (13.0-17.5) gm/dL Hct (39.0-53.0) % MCHC (31.0-37.0) g/dL Neutrophils # (1.3-7.7) k/uL APTT 48.2 H (22.0-30.0) sec Sodium (137-145) mmol/L Potassium (3.5-5.1) mmol/L Chloride (98-107) mmol/L Carbon Dioxide (22-30) mmol/L BUN (9-20) mg/dL Glucose (74-99) mg/dL POC Glucose (mg/dL) 232 H 237 H (70-110) mg/dL Calcium (8.4-10.2) mg/dL 11/19/22 11/19/22 11/19/22 Range/Units 00:04 06:04 07:44 WBC (3.8-10.6) k/uL RBC (4.30-5.90) m/uL Hgb (13.0-17.5) gm/dL Hct (39.0-53.0) % MCHC (31.0-37.0) g/dL Neutrophils # (1.3-7.7) k/uL APTT (22.0-30.0) sec Sodium 133 L (137-145) mmol/L Potassium 5.9 H 5.6 H (3.5-5.1) mmol/L Chloride 117 H (98-107) mmol/L Carbon Dioxide 16 L (22-30) mmol/L BUN 25 H (9-20) mg/dL Glucose 151 H (74-99) mg/dL POC Glucose (mg/dL) 169 H (70-110) mg/dL Calcium 7.7 L (8.4-10.2) mg/dL 11/19/22 11/19/22 11/19/22 Range/Units 07:44 07:50 11:43 WBC 21.6 H (3.8-10.6) k/uL RBC 2.71 L (4.30-5.90) m/uL Hgb 8.1 L (13.0-17.5) gm/dL Hct 26.4 L (39.0-53.0) % MCHC 30.5 L (31.0-37.0) g/dL Neutrophils # 19.1 H (1.3-7.7) k/uL APTT 40.0 H (22.0-30.0) sec Sodium (137-145) mmol/L Potassium (3.5-5.1) mmol/L Chloride (98-107) mmol/L Carbon Dioxide (22-30) mmol/L BUN (9-20) mg/dL Glucose (74-99) mg/dL POC Glucose (mg/dL) 197 H (70-110) mg/dL Calcium (8.4-10.2) mg/dL Assessment and Plan Assessment: Bilateral: Pneumonia with superimposed gram-negative bacterial infection is suspected mainly in the right lower lobe Acute hypoxic respiratory failure Sepsis secondary to above Hyperkalemia Anemia with vitamin B12 deficiency and currently on IM B12 replacement therapy Elevated troponin, most likely type II. No chest pain, normal LV function Low vitamin B12 and B6 Nonocclusive thrombosis of the left leg Paroxysmal atrial fibrillation no anticoagulation with score of 0 per Garbage Collector Driver Plan: continue with antibiotic, currently on Zithromax and ceftriaxone Continue with dexamethasone per orthopedic team Continue with IV hydration Continue with vitamin B12 replacement therapy Continue with IV Lasix and sodium bicarb No need for surgical intervention per orthopedic team May start anticoagulation per hematology team Several consultants on the case including neurologist, provider engagement executive, cardi ologist, GI (signed off, no GI coverage this week), infectious disease team and orthopedic team Labs and medication were reviewed.. Continue same treatment. Continue with symptomatic treatment. Resume home medication. Monitor labs and vitals. DVT and GI prophylaxis. Further recommendations as per clinical course of the patient DVT prophylaxis: Subcutaneous heparin GI Prophylaxis: Ppi PT/OT: Pending Prognosis is guarded
[2022-11-20 06:11] LABS: Glucose,Whole Blood 192 mg/dL (70-110)
[2022-11-20] MEDS: LEVOTHYROXINE 50 MCG TAB PO SCH (06:29)
[2022-11-20] MEDS: DEXAMETHASONE SOD PHOSPHATE 4 MG/ML 1 ML VIAL IVP SCH ×4 (06:29→23:18)
[2022-11-20] MEDS: INSULIN ASPART (NovoLOG) 100 UNIT/ML VIAL SQ SCH ×4 (06:29→20:54)
--- NOTE | 2022-11-20 07:45 | P.PN ---
Subjective Progress Note Date: 11/20/22 Principal diagnosis: Bilateral upper extremity weakness; back pain Patient seen and examined this morning. Patient is resting in bed. He denies any pain at this time. His symptoms remain the same, no improvement in the right upper extremity. He has been afebrile, denies nausea/vomiting, or chest pain. He verbalizes understanding. Explained to patient that we are waiting for the Lumbar Spine MRI to be performed to determine POC. He has been afebrile, denies nausea/vomiting, or chest pain. Objective - Vital Signs Vital signs: Vital Signs Temp 97.5 F L 11/20/22 03:38 Pulse 60 11/20/22 03:38 Resp 16 11/20/22 03:38 BP 125/80 11/20/22 03:38 Pulse Ox 98 11/20/22 03:38 FiO2 Intake & Output 11/19/22 11/20/22 11/20/22 18:59 06:59 18:59 Intake Total 530.724 109.932 Output Total 1750 700 Balance -1219.276 -590.068 Weight 119 kg Intake: Intake, IV Titration 170.724 109.932 Amount Heparin Sod,Pork in 0.45% 120.724 109.932 NaCl 25,000 unit In 0.45 % NaCl 1 250ml.bag @ 10. 254 UNITS/KG/HR 10 mls/hr IV .Q24H [facility] Rx#: [id number] cefTRIAXone 1 gm In 50 Sodium Chloride 0.9% 50 ml @ 100 mls/hr IVPB Q24HR [facility] Rx#:[id number] Oral 360 Output: Urine 1750 700 Other: Voiding Method External Catheter External Catheter # Bowel Movements 1 - Exam Physical Examination General: The patient is awake and alert, in no acute distress Skin: Skin is warm and dry with no obvious rashes or lesions. Hairy patches absent, no dorsal skin dimples, no cafe au lait spots, and no surgical incisions. Eye: Pupils are equal, round and reactive to light, extra-ocular movements are intact; there is normal conjunctiva bilaterally. Neck: The neck is supple, there is no tenderness and ROM intact. Cardiovascular: There is a regular rate and rhythm. No murmur, rub or gallop is appreciated. Respiratory: Lungs are clear to auscultation, respirations are non-labored, br eath sounds are equal. Gastrointestinal: Soft, non-distended, non-tender abdomen. Back: There is no tenderness to palpation in the midline, paralumbar, parathoracic or buttocks region. There is no obvious deformity . Musculoskeletal: ROM limited secondary to pain and stiffness from surgical pr ocedure. Muscle strength in all major muscle groups of right upper extremity 3/5, left upper extremity 4/5, bilateral lower extremities 4-/5. Neurological: CN 2-12 intact. There are no obvious motor or sensory deficits. Movement and coordination equal and intact. Sensory exam to light touch intact C5-T1 and intact from L2-S1. Reflexes 2/4 in bilateral upper and lower extremities. Negative Hoffmans, babinski, and clonus signs. Psychiatric: Cooperative, appropriate mood & affect, normal judgment. - Labs CBC & Chem 7: 11/19/22 07:50 11/19/22 07:44 Labs: Abnormal Lab Results - Last 24 Hours (Table) 11/19/22 11/19/22 11/19/22 Range/Units 07:44 07:44 07:50 WBC 21.6 H (3.8-10.6) k/uL RBC 2.71 L (4.30-5.90) m/uL Hgb 8.1 L (13.0-17.5) gm/dL Hct 26.4 L (39.0-53.0) % MCHC 30.5 L (31.0-37.0) g/dL Neutrophils # 19.1 H (1.3-7.7) k/uL APTT 40.0 H (22.0-30.0) sec Sodium 133 L (137-145) mmol/L Potassium 5.6 H (3.5-5.1) mmol/L Chloride 117 H (98-107) mmol/L Carbon Dioxide 16 L (22-30) mmol/L BUN 25 H (9-20) mg/dL Glucose 151 H (74-99) mg/dL POC Glucose (mg/dL) (70-110) mg/dL Calcium 7.7 L (8.4-10.2) mg/dL 11/19/22 11/19/22 11/19/22 Range/Units 11:43 16:39 20:07 WBC (3.8-10.6) k/uL RBC (4.30-5.90) m/uL Hgb (13.0-17.5) gm/dL Hct (39.0-53.0) % MCHC (31.0-37.0) g/dL Neutrophils # (1.3-7.7) k/uL APTT (22.0-30.0) sec Sodium (137-145) mmol/L Potassium (3.5-5.1) mmol/L Chloride (98-107) mmol/L Carbon Dioxide (22-30) mmol/L BUN (9-20) mg/dL Glucose (74-99) mg/dL POC Glucose (mg/dL) 197 H 267 H 185 H (70-110) mg/dL Calcium (8.4-10.2) mg/dL 11/19/22 11/20/22 Range/Units 23:47 06:09 WBC (3.8-10.6) k/uL RBC (4.30-5.90) m/uL Hgb (13.0-17.5) gm/dL Hct (39.0-53.0) % MCHC (31.0-37.0) g/dL Neutrophils # (1.3-7.7) k/uL APTT 144.5 H* (22.0-30.0) sec Sodium (137-145) mmol/L Potassium (3.5-5.1) mmol/L Chloride (98-107) mmol/L Carbon Dioxide (22-30) mmol/L BUN (9-20) mg/dL Glucose (74-99) mg/dL POC Glucose (mg/dL) 192 H (70-110) mg/dL Calcium (8.4-10.2) mg/dL Assessment and Plan Assessment: Bilateral upper extremity weakness Left knee pain Plan: Awaiting MRI of the lumbar spine to be performed Appreciate medical management Pain management - Tylenol DVT prophylaxis - heparin gtt GI prophylaxis - Protonix; Tums PT/OT - weightbearing as tolerated with walker. Appreciate consult
[2022-11-20 07:47] LABS: Calcium 7.2 mg/dL (8.4-10.2); Potassium 5.7 mmol/L (3.5-5.1)
[2022-11-20 07:55] LABS: HCT 25.6 % (39.0-53.0); Hypochromasia Marked; MCH 27.5 pg (25.0-35.0); MCHC 27.4 g/dL (31.0-37.0); MCV 100.2 fL (80.0-100.0); Macrocytosis Slight; Platelet Count 262 k/uL (150-450); RBC 2.56 m/uL (4.30-5.90); RDW 15.5 % (11.5-15.5); WBC 21.8 k/uL (3.8-10.6)
[2022-11-20] MEDS: CYANOCOBALAMIN 1,000 MCG/ML 1 ML VIAL IM SCH (08:44)
[2022-11-20] MEDS: CHOLESTYRAMINE (WITH SUGAR) 4 GM PACKET PO SCH ×2 (08:46→16:54)
[2022-11-20] MEDS: PANTOPRAZOLE 40 MG/10 ML VIAL IVP SCH ×2 (08:47→20:55)
[2022-11-20] MEDS: ASCORBIC ACID 500 MG TAB PO SCH ×2 (08:48→20:54)
[2022-11-20] MEDS: PYRIDOXINE 50 MG TAB PO SCH ×2 (08:48→20:54)
[2022-11-20] MEDS: FUROSEMIDE 10 MG/ML 4 ML VIAL IV SCH (08:48)
[2022-11-20] MEDS: ZINC SULFATE 220 MG CAP PO SCH (08:48)
[2022-11-20] MEDS: THIAMINE 100 MG TAB PO SCH (08:48)
[2022-11-20] MEDS: MAGNESIUM OXIDE 400 MG TAB PO SCH (08:48)
[2022-11-20] MEDS: CHOLECALCIFEROL 25 MCG (1000 IU) TABLET PO SCH (08:48)
[2022-11-20] MEDS: FOLIC ACID 1 MG TAB PO SCH (08:49)
[2022-11-20] MEDS: DILTIAZEM ORAL 30 MG TAB PO SCH ×3 (08:49→20:54)
[2022-11-20] MEDS: FLUoxetine HCL 20 MG CAP PO SCH (08:49)
[2022-11-20] MEDS: SODIUM BICARBONATE TAB 650 MG TAB PO SCH ×2 (08:49→20:54)
[2022-11-20] MEDS: CALCIUM CARBONATE 500 MG CHEWABLE PO SCH ×3 (09:18→20:54)
[2022-11-20 09:24] LABS: Band Neutrophils % 1 %; Metamyelocytes # (M) 0.44 k/uL (0); Metamyelocytes % 2 %; Monocytes # (M) 0.65 k/uL (0-1.0); Myelocytes # (M) 0.44 k/uL (0); Myelocytes % 2 %; Neutrophils % (M) 83 %; Nucleated Red Blood Cells 0 /100 WBC (0-0); Poikilocytosis (M) Present; Total Cells Counted 200
[2022-11-20 09:25] LABS: Crenated RBC Present
--- NOTE | 2022-11-20 11:23 | MR ---
EXAMINATION TYPE: MR lumbar spine wo/w con DATE OF EXAM: 11/20/2022 COMPARISON: MRI lumbar spine one week ago. CT abdomen and pelvis November 16, 2022 HISTORY: Generalized weakness and inability to ambulate TECHNIQUE: Multiplanar, multisequence images of the lumbar spine is performed without and with IV contrast, util izing 10 mL intravenous Gadavist FINDINGS: There is persistent levoconvex scoliosis centered at L3 level. There is persistent multilev el spondylolisthesis or grade 1 retrolisthesis L2 on L3 and L3 on L4. There is persistent multilevel disc desiccation. There is abnormal prominent increased T2 signal in the L3-L4 disc space redemonstra anabell with heterogeneous diminished T1 and slight increased T2 signal. Large anterior spurs are redemon strated. Contrast images show no definitive enhancement however of the disc or the adjacent vertebra. Findings would favor Modic type I degenerative change greatest in the right aspect where there is mo re prominent disc space narrowing. There would however not explain the increased signal within the di sc at this level. Posterior extension inferiorly on the prior study sagittal image 11 is not seen or less prominent on current study image 10. Alignment is stable. No definitive new bony destruction see n. Axial images are essentially nondiagnostic due to body habitus. STIR images and shows mild adjacen t edema along the left aspect sagittal image 1. No new large disc herniations are present. Central parapelvic cysts in the right kidney and 1.8 cm si mple thin-walled cyst left kidney axial image 28 are incidentally noted. IMPRESSION: No new bony destruction. Stable alignment. Increased T2 signal in disc or suspected edema is less prominent from prior study. No definitive abnormal osseous enhancement to suggest persistent active acute osteomyelitis. No new focal fluid collection or abscess seen. Findings consistent with improving infection and degenerative changes.
[2022-11-20 11:39] LABS: Glucose,Whole Blood 203 mg/dL (70-110)
--- NOTE | 2022-11-20 12:04 | P.PN ---
Progress Note - Text Progress Note Date: 11/20/22 MRI of C T and L spine reviewed. 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 No epidural abscess. This could explain some of his UE and LE sx. He has minimal neck pain at this time. T spine shows no areas of infection L spine shows osteomyelitis discitis that is likely unstable at L3-4 with increased uptake in the disc and VB in this area. No epidrual abscess. Moderate central stenosis and b/l foraminal stenosis noted. Pt likely to need Cervical decompression and stabilization in the form of ACDF from C5-7. THis would be first on Wednesday this next week. This would need to be followed by L3-4 decompression and stabilization with abx spacer placement and interbody fusion for the L3-4 OMD. The patient has multiple medical comorbids with hyponatremia, hyperkalemia, Anemia UO, amongst others. He would need to be stable for surgical intervention. We will tentatively add him for cervical on Wednesday and Lumbar on and await treatment team input.
--- NOTE | 2022-11-20 15:25 | P.PN ---
Subjective Progress Note Date: 11/20/22 Follow-up for acute kidney injury. Urine output of 2.4 L in the last 24 hours. Urinary retention Jo was placed today. Objective - Vital Signs Vital signs: Vital Signs Temp 97.6 F 11/20/22 08:00 Pulse 74 11/20/22 08:00 Resp 16 11/20/22 08:00 BP 133/72 11/20/22 08:00 Pulse Ox 97 11/20/22 08:00 FiO2 Intake & Output 11/19/22 11/20/22 11/20/22 18:59 06:59 18:59 Intake Total 530.724 509.932 420 Output Total 2982 060 7113 Balance -1219.276 -190.068 -1191 Weight 119 kg Intake: Intake, IV Titration 170.724 109.932 Amount Heparin Sod,Pork in 0.45% 120.724 109.932 NaCl 25,000 unit In 0.45 % NaCl 1 250ml.bag @ 10. 254 UNITS/KG/HR 10 mls/hr IV .Q24H [facility] Rx#: [id number] cefTRIAXone 1 gm In 50 Sodium Chloride 0.9% 50 ml @ 100 mls/hr IVPB Q24HR [facility] Rx#:[id number] Oral 360 400 420 Output: Urine 0577 245 9657 Post Void Residual 261 Other: Voiding Method External Catheter External Catheter External Catheter # Bowel Movements 1 1 - Exam Acute distress S1-S2 heard Decreased breath sounds Edema - Labs CBC & Chem 7: 11/20/22 06:41 11/20/22 06:41 Labs: Abnormal Lab Results - Last 24 Hours (Table) 11/19/22 11/19/22 11/19/22 Range/Units 16:39 20:07 23:47 WBC (3.8-10.6) k/uL RBC (4.30-5.90) m/uL Hgb (13.0-17.5) gm/dL Hct (39.0-53.0) % MCV (80.0-100.0) fL MCHC (31.0-37.0) g/dL Neutrophils # (Manual) (1.3-7.7) k/uL Metamyelocytes # (Man) (0) k/uL Myelocytes # (Manual) (0) k/uL APTT 144.5 H* (22.0-30.0) sec Sodium (137-145) mmol/L Potassium (3.5-5.1) mmol/L Chloride (98-107) mmol/L Carbon Dioxide (22-30) mmol/L BUN (9-20) mg/dL Glucose (74-99) mg/dL POC Glucose (mg/dL) 267 H 185 H (70-110) mg/dL Calcium (8.4-10.2) mg/dL 11/20/22 11/20/22 11/20/22 Range/Units 06:09 06:41 06:41 WBC 21.8 H (3.8-10.6) k/uL RBC 2.56 L (4.30-5.90) m/uL Hgb 7.0 L (13.0-17.5) gm/dL Hct 25.6 L (39.0-53.0) % MCV 100.2 H (80.0-100.0) fL MCHC 27.4 L (31.0-37.0) g/dL Neutrophils # (Manual) 18.30 H (1.3-7.7) k/uL Metamyelocytes # (Man) 0.44 H (0) k/uL Myelocytes # (Manual) 0.44 H (0) k/uL APTT (22.0-30.0) sec Sodium 133 L (137-145) mmol/L Potassium 5.7 H (3.5-5.1) mmol/L Chloride 117 H (98-107) mmol/L Carbon Dioxide 14 L (22-30) mmol/L BUN 26 H (9-20) mg/dL Glucose 147 H (74-99) mg/dL POC Glucose (mg/dL) 192 H (70-110) mg/dL Calcium 7.2 L (8.4-10.2) mg/dL 11/20/22 11/20/22 Range/Units 08:56 11:37 WBC (3.8-10.6) k/uL RBC (4.30-5.90) m/uL Hgb (13.0-17.5) gm/dL Hct (39.0-53.0) % MCV (80.0-100.0) fL MCHC (31.0-37.0) g/dL Neutrophils # (Manual) (1.3-7.7) k/uL Metamyelocytes # (Man) (0) k/uL Myelocytes # (Manual) (0) k/uL APTT 61.7 H (22.0-30.0) sec Sodium (137-145) mmol/L Potassium (3.5-5.1) mmol/L Chloride (98-107) mmol/L Carbon Dioxide (22-30) mmol/L BUN (9-20) mg/dL Glucose (74-99) mg/dL POC Glucose (mg/dL) 203 H (70-110) mg/dL Calcium (8.4-10.2) mg/dL Assessment and Plan Assessment: #1 hyperkalemia multifactorial -GI bleed and urinary retention. -Renal function around baseline. #2 acute hypoxic respiratory failure from Covid pneumonia #3 DVT left leg #4 CK D stage II with a baseline creatinine of 1.0 MG per DL Plan: #1 renal function stable. #2 place Jo catheter for urinary retention. #3 on potassium binder and Lasix check labs in the morning.
--- NOTE | 2022-11-20 15:52 | P.PN ---
Subjective Progress Note Date: 11/20/22 Principal diagnosis: Anemia, LKLE DVT Pt in f/u is doing well today, Good spirits, pending possible surgery, no reports of any bleeding or pain. Objective - Vital Signs Vital signs: Vital Signs Temp 97.6 F 11/20/22 08:00 Pulse 74 11/20/22 08:00 Resp 16 11/20/22 08:00 BP 133/72 11/20/22 08:00 Pulse Ox 97 11/20/22 08:00 FiO2 Intake & Output 11/19/22 11/20/22 11/20/22 18:59 06:59 18:59 Intake Total 530.724 509.932 420 Output Total 2442 129 8278 Balance -1219.276 -190.068 -1191 Weight 119 kg Intake: Intake, IV Titration 170.724 109.932 Amount Heparin Sod,Pork in 0.45% 120.724 109.932 NaCl 25,000 unit In 0.45 % NaCl 1 250ml.bag @ 10. 254 UNITS/KG/HR 10 mls/hr IV .Q24H [facility] Rx#: [id number] cefTRIAXone 1 gm In 50 Sodium Chloride 0.9% 50 ml @ 100 mls/hr IVPB Q24HR [facility] Rx#:[id number] Oral 360 400 420 Output: Urine 1903 645 0797 Post Void Residual 261 Other: Voiding Method External Catheter External Catheter External Catheter # Bowel Movements 1 1 - Constitutional General appearance: Present: average body habitus, cooperative, no acute distress - EENT Eyes: Present: anicteric sclerae, EOMI ENT: Present: hearing grossly normal - Respiratory Details: Respirations even and unlabored - Musculoskeletal Musculoskeletal: Present: generalized weakness - Psychiatric Psychiatric: Present: A&O x's 3, appropriate affect, intact judgment & insight - Labs CBC & Chem 7: 11/20/22 06:41 11/20/22 06:41 Labs: Abnormal Lab Results - Last 24 Hours (Table) 11/19/22 11/19/22 11/19/22 Range/Units 16:39 20:07 23:47 WBC (3.8-10.6) k/uL RBC (4.30-5.90) m/uL Hgb (13.0-17.5) gm/dL Hct (39.0-53.0) % MCV (80.0-100.0) fL MCHC (31.0-37.0) g/dL Neutrophils # (Manual) (1.3-7.7) k/uL Metamyelocytes # (Man) (0) k/uL Myelocytes # (Manual) (0) k/uL APTT 144.5 H* (22.0-30.0) sec Sodium (137-145) mmol/L Potassium (3.5-5.1) mmol/L Chloride (98-107) mmol/L Carbon Dioxide (22-30) mmol/L BUN (9-20) mg/dL Glucose (74-99) mg/dL POC Glucose (mg/dL) 267 H 185 H (70-110) mg/dL Calcium (8.4-10.2) mg/dL 11/20/22 11/20/22 11/20/22 Range/Units 06:09 06:41 06:41 WBC 21.8 H (3.8-10.6) k/uL RBC 2.56 L (4.30-5.90) m/uL Hgb 7.0 L (13.0-17.5) gm/dL Hct 25.6 L (39.0-53.0) % MCV 100.2 H (80.0-100.0) fL MCHC 27.4 L (31.0-37.0) g/dL Neutrophils # (Manual) 18.30 H (1.3-7.7) k/uL Metamyelocytes # (Man) 0.44 H (0) k/uL Myelocytes # (Manual) 0.44 H (0) k/uL APTT (22.0-30.0) sec Sodium 133 L (137-145) mmol/L Potassium 5.7 H (3.5-5.1) mmol/L Chloride 117 H (98-107) mmol/L Carbon Dioxide 14 L (22-30) mmol/L BUN 26 H (9-20) mg/dL Glucose 147 H (74-99) mg/dL POC Glucose (mg/dL) 192 H (70-110) mg/dL Calcium 7.2 L (8.4-10.2) mg/dL 11/20/22 11/20/22 Range/Units 08:56 11:37 WBC (3.8-10.6) k/uL RBC (4.30-5.90) m/uL Hgb (13.0-17.5) gm/dL Hct (39.0-53.0) % MCV (80.0-100.0) fL MCHC (31.0-37.0) g/dL Neutrophils # (Manual) (1.3-7.7) k/uL Metamyelocytes # (Man) (0) k/uL Myelocytes # (Manual) (0) k/uL APTT 61.7 H (22.0-30.0) sec Sodium (137-145) mmol/L Potassium (3.5-5.1) mmol/L Chloride (98-107) mmol/L Carbon Dioxide (22-30) mmol/L BUN (9-20) mg/dL Glucose (74-99) mg/dL POC Glucose (mg/dL) 203 H (70-110) mg/dL Calcium (8.4-10.2) mg/dL Assessment and Plan (1) Normocytic normochromic anemia Current Visit: Yes Status: Acute Priority: High Code(s): D64.9 - ANEMIA, UNSPECIFIED SNOMED Code(s): 72706607 (2) COVID-19 Current Visit: Yes Status: Acute Priority: High Code(s): U07.1 - COVID-19 SNOMED Code(s): 388768904 (3) Left leg DVT Current Visit: Yes Status: Acute Priority: High Code(s): I82.402 - ACUTE EMBOLISM AND THOMBOS UNSP DEEP VEINS OF L LOW EXTREM SNOMED Code(s): 215969689 Plan: Normocytic, normochromic anemia, anemia of inflammation, and hx of gastric bypass, also acute covid, nutritional deficiencies noted. Hemoglobin 7 today. Continue to monitor CBC daily. No iron at this time. Doppler studies 11/12/22 showed DVT in left calf. Low-intensity IV heparin, no bleeding to report today, Hemoglobin 7-Trending down. He has numerous risk factors for DVT including prolonged bed rest, COVID-19 infection and hospitalization. Cardiolipin antibodies negative, beta-2 glycoprotein positive. Recommendation is for low molecular weight heparin or Coumadin vs DOAC for anticoagulation with positive phospholipid antibody. Prescriptions for both Lovenox and Arixtra were attempted, co-pay was outrageous. Unfortunately, this means patient is going to be anticoagulated with Coumadin. Since there as possible surgical procedure planned for Wednesday, continue heparin drip at this time. Do not begin Coumadin until all invasive procedures are completed. Monitor CBC closely over the weekend as there is a downward trend noted. Patient will need to be followed up closely in the outpatient setting having INR testing and Coumadin adjustment is needed. F/U scheduled and in discharge plan attests: I have seen and examined patient, performed H&P, developed impression and plan of care. Discussed with dictator. Agree with documentation, dictated as a scribe
[2022-11-20 16:45] LABS: Glucose,Whole Blood 130 mg/dL (70-110)
[2022-11-20] MEDS: HEPARIN SOD,PORK IN 0.45% NACL 25,000 UNIT in 0.45% NACL 1 250ML.BAG IV SCH (16:55)
[2022-11-20 20:05] LABS: Glucose,Whole Blood 188 mg/dL (70-110)
--- NOTE | 2022-11-20 20:27 | P.PN ---
Subjective Progress Note Date: 11/20/22 Principal diagnosis: Covid 19 Patient is a 62-year-old male who is unvaccinated for COVID-19 patient was brought into the ER for evaluation of weakness no energy mention the patient was not able to get stand up and go to the bathroom patient has been dealing with the diarrhea off and on for couple of weeks, patient was noticed to have a positive covid test, however the patient was not hypoxic and CT abdominal pelvis with few bibasilar patchy groundglass opacity representing atelectasis and no evidence of colitis. On today's evaluation that is 11/20/2022, the patient continues to be afebrile, the patient is breathing comfortably on room air, The patient denies chest pain , the patient did have occasional dry cough , the patient denies nausea no vomiting no abdominal pain and no diarrhea no neck pain Objective - Vital Signs Vital signs: Vital Signs Temp 97.6 F 11/20/22 08:00 Pulse 74 11/20/22 08:00 Resp 16 11/20/22 08:00 BP 133/72 11/20/22 08:00 Pulse Ox 97 11/20/22 08:00 FiO2 Intake & Output 11/19/22 11/20/22 11/20/22 18:59 06:59 18:59 Intake Total 530.724 509.932 180 Output Total 7650 296 4408 Balance -1219.276 -190.068 -881 Weight 119 kg Intake: Intake, IV Titration 170.724 109.932 Amount Heparin Sod,Pork in 0.45% 120.724 109.932 NaCl 25,000 unit In 0.45 % NaCl 1 250ml.bag @ 10. 254 UNITS/KG/HR 10 mls/hr IV .Q24H [facility] Rx#: [id number] cefTRIAXone 1 gm In 50 Sodium Chloride 0.9% 50 ml @ 100 mls/hr IVPB Q24HR [facility] Rx#:[id number] Oral 360 400 180 Output: Urine 1750 700 800 Post Void Residual 261 Other: Voiding Method External Catheter External Catheter External Catheter # Bowel Movements 1 1 - Exam GENERAL DESCRIPTION: An elderly male lying in bed in no distress RESPIRATORY SYSTEM: Unlabored breathing , decreased breath sounds at bases HEART: S1 S2 regular rate and rhythm , ABDOMEN: Soft , no tenderness EXTREMITIES: No edema feet - Labs CBC & Chem 7: 12/23/22 06:41 11/20/22 06:41 Labs: Abnormal Lab Results - Last 24 Hours (Table) 11/19/22 11/19/22 11/19/22 Range/Units 16:39 20:07 23:47 WBC (3.8-10.6) k/uL RBC (4.30-5.90) m/uL Hgb (13.0-17.5) gm/dL Hct (39.0-53.0) % MCV (80.0-100.0) fL MCHC (31.0-37.0) g/dL Neutrophils # (Manual) (1.3-7.7) k/uL Metamyelocytes # (Man) (0) k/uL Myelocytes # (Manual) (0) k/uL APTT 144.5 H* (22.0-30.0) sec Sodium (137-145) mmol/L Potassium (3.5-5.1) mmol/L Chloride (98-107) mmol/L Carbon Dioxide (22-30) mmol/L BUN (9-20) mg/dL Glucose (74-99) mg/dL POC Glucose (mg/dL) 267 H 185 H (70-110) mg/dL Calcium (8.4-10.2) mg/dL 11/20/22 11/20/22 11/20/22 Range/Units 06:09 06:41 06:41 WBC 21.8 H (3.8-10.6) k/uL RBC 2.56 L (4.30-5.90) m/uL Hgb 7.0 L (13.0-17.5) gm/dL Hct 25.6 L (39.0-53.0) % MCV 100.2 H (80.0-100.0) fL MCHC 27.4 L (31.0-37.0) g/dL Neutrophils # (Manual) 18.30 H (1.3-7.7) k/uL Metamyelocytes # (Man) 0.44 H (0) k/uL Myelocytes # (Manual) 0.44 H (0) k/uL APTT (22.0-30.0) sec Sodium 133 L (137-145) mmol/L Potassium 5.7 H (3.5-5.1) mmol/L Chloride 117 H (98-107) mmol/L Carbon Dioxide 14 L (22-30) mmol/L BUN 26 H (9-20) mg/dL Glucose 147 H (74-99) mg/dL POC Glucose (mg/dL) 192 H (70-110) mg/dL Calcium 7.2 L (8.4-10.2) mg/dL 11/20/22 11/20/22 Range/Units 08:56 11:37 WBC (3.8-10.6) k/uL RBC (4.30-5.90) m/uL Hgb (13.0-17.5) gm/dL Hct (39.0-53.0) % MCV (80.0-100.0) fL MCHC (31.0-37.0) g/dL Neutrophils # (Manual) (1.3-7.7) k/uL Metamyelocytes # (Man) (0) k/uL Myelocytes # (Manual) (0) k/uL APTT 61.7 H (22.0-30.0) sec Sodium (137-145) mmol/L Potassium (3.5-5.1) mmol/L Chloride (98-107) mmol/L Carbon Dioxide (22-30) mmol/L BUN (9-20) mg/dL Glucose (74-99) mg/dL POC Glucose (mg/dL) 203 H (70-110) mg/dL Calcium (8.4-10.2) mg/dL Assessment and Plan (1) COVID-19 Current Visit: Yes Status: Acute Priority: High Code(s): U07.1 - COVID-19 SNOMED Code(s): 182856833 (2) Diarrhea Current Visit: Yes Status: Acute Priority: High Code(s): R19.7 - DIARRHEA, UNSPECIFIED SNOMED Code(s): 21482175 Plan: 1patient present to hospital generalized weakness which is likely multifactorial could be related to his diarrhea has not patient did have significant diarrhea and evidence of prerenal status was low potassium, stool for C. diff is negative stool cultures has been obtained and currently pending, patient to continue Questran and advised to increase his probiotic and yogurt intake 2patient with a low-grade fever, the patient did have elevated pro calcitonin, CT angiogram of the chest was negative for PE however did shows right lower lobe infiltrate suspicious for pneumonia 3-patient fever has resolved, patient has received adequate antibiotic therapy for underlying pneumonia and Rocephin will be discontinued 4patient did have a abnormal MRI of the cervical spine as well as lumbar spine with a questionable discitis reported by radiologist however the patient did have normal sed rate and a CRP , and this was discussed with the surgeon on the phone in detail as there is no evidence of any paraspinal abscess and the patient is stable we will go ahead and discontinue his antibiotics to increase the yield of cultures that'll be done at the time of surgery Time with Patient: Less than 30
[2022-11-21 06:14] LABS: Glucose,Whole Blood 173 mg/dL (70-110)
[2022-11-21] MEDS: LEVOTHYROXINE 50 MCG TAB PO SCH (06:27)
[2022-11-21] MEDS: INSULIN ASPART (NovoLOG) 100 UNIT/ML VIAL SQ SCH ×4 (06:27→20:50)
[2022-11-21] MEDS: DEXAMETHASONE SOD PHOSPHATE 4 MG/ML 1 ML VIAL IVP SCH ×4 (06:27→23:19)
--- NOTE | 2022-11-21 07:37 | P.PN ---
Progress Note - Text Progress Note Date: 11/21/22 Pt s/e. Stable at this time eating breakfast. No new complaints. Still weak in RUE and LE. Discussed surgical and non surgical options as well as MRI findings. Exam stable -Plan will be for OR on Wednesday for neck and for back. 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
[2022-11-21 07:45] LABS: HCT 24.3 % (39.0-53.0); HGB 7.5 gm/dL (13.0-17.5); Hypochromasia Marked; MCH 30.2 pg (25.0-35.0); MCV 97.3 fL (80.0-100.0); Mean Platelet Volume 9.4; Platelet Count 266 k/uL (150-450); RDW 15.4 % (11.5-15.5); WBC 22.6 k/uL (3.8-10.6)
[2022-11-21] MEDS: FLUoxetine HCL 20 MG CAP PO SCH (09:53)
[2022-11-21] MEDS: DILTIAZEM ORAL 30 MG TAB PO SCH ×3 (09:53→20:51)
[2022-11-21] MEDS: SODIUM BICARBONATE TAB 650 MG TAB PO SCH ×2 (09:53→20:51)
[2022-11-21] MEDS: THIAMINE 100 MG TAB PO SCH (09:53)
[2022-11-21] MEDS: PYRIDOXINE 50 MG TAB PO SCH ×2 (09:53→20:51)
[2022-11-21] MEDS: CHOLECALCIFEROL 25 MCG (1000 IU) TABLET PO SCH (09:53)
[2022-11-21] MEDS: ZINC SULFATE 220 MG CAP PO SCH (09:53)
[2022-11-21] MEDS: FOLIC ACID 1 MG TAB PO SCH (09:53)
[2022-11-21] MEDS: ASCORBIC ACID 500 MG TAB PO SCH ×2 (09:54→20:51)
[2022-11-21] MEDS: CHOLESTYRAMINE (WITH SUGAR) 4 GM PACKET PO SCH ×2 (09:54→17:37)
[2022-11-21] MEDS: PANTOPRAZOLE 40 MG/10 ML VIAL IVP SCH ×2 (09:54→20:50)
[2022-11-21] MEDS: CYANOCOBALAMIN 1,000 MCG/ML 1 ML VIAL IM SCH (09:54)
[2022-11-21] MEDS: FUROSEMIDE 10 MG/ML 4 ML VIAL IV SCH (09:54)
[2022-11-21] MEDS: CALCIUM CARBONATE 500 MG CHEWABLE PO SCH ×3 (09:54→20:51)
[2022-11-21] MEDS: MAGNESIUM OXIDE 400 MG TAB PO SCH (09:54)
[2022-11-21 11:57] LABS: Glucose,Whole Blood 228 mg/dL (70-110)
--- NOTE | 2022-11-21 13:26 | P.PN ---
Subjective Progress Note Date: 11/21/22 Principal diagnosis: Covid 19 Patient is a 62-year-old male who is unvaccinated for COVID-19 patient was brought into the ER for evaluation of weakness no energy mention the patient was not able to get stand up and go to the bathroom patient has been dealing with the diarrhea off and on for couple of weeks, patient was noticed to have a positive covid test, however the patient was not hypoxic and CT abdominal pelvis with few bibasilar patchy groundglass opacity representing atelectasis and no evidence of colitis. On today's evaluation that is 11/21/2022, the patient remains to be afebrile, the patient is breathing comfortably on room air, The patient denies chest pain , the patient did have occasional cough with minimal sputum no hemoptysis no chest pain no abdominal pain and diarrhea has resolved Objective - Vital Signs Vital signs: Vital Signs Temp 98.2 F 11/21/22 11:20 Pulse 70 11/21/22 11:20 Resp 16 11/21/22 11:20 BP 125/78 11/21/22 11:20 Pulse Ox 98 11/21/22 11:20 FiO2 Intake & Output 11/20/22 11/21/22 11/21/22 18:59 06:59 18:59 Intake Total 548.832 237 240 Output Total 2161 625 800 Balance -1542.168 -388 -560 Weight 117.5 kg Intake: Intake, IV Titration 128.832 Amount Heparin Sod,Pork in 0.45% 128.832 NaCl 25,000 unit In 0.45 % NaCl 1 250ml.bag @ 10. 254 UNITS/KG/HR 10 mls/hr IV .Q24H [facility] BEDS AT [facility] Rx#: [id number] Oral 420 237 240 Output: Urine 1900 625 800 Uretheral (Jo) 800 Post Void Residual 261 Other: Voiding Method External Catheter Indwelling Catheter Indwelling Catheter # Bowel Movements 1 1 - Exam GENERAL DESCRIPTION: An elderly male lying in bed in no distress RESPIRATORY SYSTEM: Unlabored breathing , decreased breath sounds at bases HEART: S1 S2 regular rate and rhythm , ABDOMEN: Soft , no tenderness EXTREMITIES: No edema feet - Labs CBC & Chem 7: 11/21/22 07:15 11/20/22 06:41 Labs: Abnormal Lab Results - Last 24 Hours (Table) 11/20/22 11/20/22 11/21/22 Range/Units 16:43 20:04 06:10 WBC (3.8-10.6) k/uL RBC (4.30-5.90) m/uL Hgb (13.0-17.5) gm/dL Hct (39.0-53.0) % APTT (22.0-30.0) sec POC Glucose (mg/dL) 130 H 188 H 173 H (70-110) mg/dL 11/21/22 11/21/22 11/21/22 Range/Units 07:15 07:15 11:55 WBC 22.6 H (3.8-10.6) k/uL RBC 2.50 L (4.30-5.90) m/uL Hgb 7.5 L (13.0-17.5) gm/dL Hct 24.3 L (39.0-53.0) % APTT 62.9 H (22.0-30.0) sec POC Glucose (mg/dL) 228 H (70-110) mg/dL Assessment and Plan (1) COVID-19 Current Visit: Yes Status: Acute Priority: High Code(s): U07.1 - COVID-19 SNOMED Code(s): 292727580 (2) Diarrhea Current Visit: Yes Status: Acute Priority: High Code(s): R19.7 - DIARRHEA, UNSPECIFIED SNOMED Code(s): 89267203 Plan: 1patient present to hospital generalized weakness which is likely multifactorial could be related to his diarrhea has not patient did have significant diarrhea and evidence of prerenal status was low potassium, stool for C. diff is negative stool cultures has been obtained and currently pending, patient to continue Questran and advised to increase his probiotic and yogurt intake 2patient with a low-grade fever, the patient did have elevated pro calcitonin, CT angiogram of the chest was negative for PE however did shows right lower lobe infiltrate suspicious for pneumonia 3-patient fever has resolved, patient has received adequate antibiotic therapy for underlying pneumonia and Rocephin was discontinued 11/20/2022 4patient did have a abnormal MRI of the cervical spine as well as lumbar spine with a questionable discitis reported by radiologist however the patient did have normal sed rate and a CRP , patient will monitor closely off antibiotic therapy to increase the yield of any culture to be done at the time of surgery as per discussion with the surgeon 5leukocytosis is more likely steroid related Time with Patient: Less than 30
--- NOTE | 2022-11-21 13:55 | P.PN ---
Subjective Progress Note Date: 11/21/22 The patient is seen at bedside and feels minimal improvement in strength. Continues to have more strength over the left upper compared to the right upper. Is on IV heparin drip for DVT. He was notified by Orthopedic surgery team that he is going to OR for cervical surgery this Wednesday then will have low back surgery. Objective - Vital Signs Vital signs: Vital Signs Temp 98.2 F 11/21/22 11:20 Pulse 70 11/21/22 11:20 Resp 16 11/21/22 11:20 BP 125/78 11/21/22 11:20 Pulse Ox 98 11/21/22 11:20 FiO2 Intake & Output 11/20/22 11/21/22 11/21/22 18:59 06:59 18:59 Intake Total 548.832 237 240 Output Total 2161 625 800 Balance -1612.168 -388 -560 Weight 117.5 kg Intake: Intake, IV Titration 128.832 Amount Heparin Sod,Pork in 0.45% 128.832 NaCl 25,000 unit In 0.45 % NaCl 1 250ml.bag @ 10. 254 UNITS/KG/HR 10 mls/hr IV .Q24H [facility] Rx#: [id number] Oral 420 237 240 Output: Urine 1900 625 800 Uretheral (Jo) 800 Post Void Residual 261 Other: Voiding Method External Catheter Indwelling Catheter Indwelling Catheter # Bowel Movements 1 1 - Exam GENERAL: The patient is laying in bed and is in minimal to mild acute distress. NEUROLOGICAL: Higher mental function: The patient is awake, alert, oriented to self, place and time. He is somewhat slow responding. Patient is following simple commands. No aphasia and no neglect. Cranial nerves: The pupils are round, equal and reactive to light and accommodation. Visual elder are full to confrontation throughout. Extraocular movement is intact no nystagmus is noted. Facial sensation is normal to touch throughout. The facial strength is normal throughout. Tongue is midline and m anabella [id number] without any difficulty. No dysarthria is noted. Shoulder shrug is normal bilaterally. Motor: The strength is limited but has very difficulty raising the right arm above gravity, strength in right upper is about 2 Is able to raise left upper and right lower above gravity . Is able to raise bilateral lowers above gravity and is about at least 4+. Sensation: Sensation is normal to touch throughout. Reflexes (right/left): 0-1+ throughout. Plantars are mute bilaterally. - Labs CBC & Chem 7: 11/21/22 07:15 11/20/22 06:41 Labs: Abnormal Lab Results - Last 24 Hours (Table) 11/20/22 11/20/22 11/21/22 Range/Units 16:43 20:04 06:10 WBC (3.8-10.6) k/uL RBC (4.30-5.90) m/uL Hgb (13.0-17.5) gm/dL Hct (39.0-53.0) % APTT (22.0-30.0) sec POC Glucose (mg/dL) 130 H 188 H 173 H (70-110) mg/dL 11/21/22 11/21/22 11/21/22 Range/Units 07:15 07:15 11:55 WBC 22.6 H (3.8-10.6) k/uL RBC 2.50 L (4.30-5.90) m/uL Hgb 7.5 L (13.0-17.5) gm/dL Hct 24.3 L (39.0-53.0) % APTT 62.9 H (22.0-30.0) sec POC Glucose (mg/dL) 228 H (70-110) mg/dL Assessment and Plan Assessment: * Acute COVID infection with severe diarrhea for around 7-10 days. * Generalized weakness, slightly asymmetric. Etiology possibly multifactorial, probably related to electrolyte imbalance, with hypokalemia, hyponatremia, hypocalcemia, hypomagnesemia, copper deficiency as well B6 deficiency and very low normal B12. Patient's reflexes appears diminished and not sure exact cause: if due to degenerative cervical changes vs electrolyte/nutrition deficient vs ??GBS (but feel less likely since has so many other factors that could have lead to his weakness of uppers as mention above but cannot be excluded). * Degenerative changes worse at C6-C7 seen on MRI * Vitamin B12 deficiency * Vitamin B6 deficient * Copper deficiency * DVT in left lower extremity and has swelling over the right arm concerning for DVT. Is on heparin drip * Paroxysmal atrial fibrillation * Alcoholism * Anemia Plan: * MRI of the cervical spine revealed significantly limited study secondary to motion. Within the limitation, there is at least moderate spinal canal stenosis at C5 6. Multilevel neural foraminal stenosis. Grade 1 anterolisthesis of C3 on C4. Degeneration changes worse at C6-C7 with the joint place edema. Orthopedic surgery is taking him for surgery this Wednesday for neck and this for back. * MRI of the lumbar is reported as no new bone structure. Stable alignment. Increased T2 signal and disc or suspected edema is less prominent from prior study. No definitive abnormal osseous and has been suggest persistent acute active osteomyelitis. No new focal fluid collection or abscess seen. Finding consistent with improving infection and degenerative changes. * MRI of the thoracic spine is reported as multilevel degenerative disc disease with disc protrusion and ventral cord contact at T7-T8 * For B6 deficient started 50mg 1 tab bid for now and then repeated level needs to be checked down the line. * Patient has evidence of vitamin B12 deficiency with B12 226 with low B12 and elevated methylmalonic acid 0.51. Patient started on vitamin B12 1000 g IM daily. * Calcium is 7.5-7.6 (slightly low). Ionized calcium is 5.5 (slightly elevated). PTH: 20.7. Will defer work-up and management to primary team. * Hematology has seen the patient, ordered blood testing. * CPK < 20, B1 69, TSH normal. Folate 21.2. Serum protein electrophoresis and immunofixation electrophoresis showed no paraproteinemia. * For copper deficiency, would defer to hematology. * Patient also had an episode of paroxysmal atrial fibrillation. Cardiology has seen the patient, not recommending anticoagulation. From neurological perspective will defer use of ASA to primary team. Patient does not have stroke but was used for atrial fibrillation. * 2-D echo revealed left ventricular hypertrophy with normal left-ventricular systolic function with EF 55%. No obvious regional wall motion abnormalities. Left atrial size is normal. Mild to moderate mitral regurgitation. * PT and OT are consulted * I.D. team is on board. * Hematology is on board * Patient is on heparin drip for DVT. * Will defer the rest of medical management to primary team. * For DVT prophylaxis patient is on heparin drip The plan is discussed with patient. We'll continue to follow up with the patient sporadically. Dr. Blankenship will start neurology service this Wednesday a.m. Time with Patient: Less than 30
--- NOTE | 2022-11-21 15:09 | P.PN ---
Subjective Progress Note Date: 11/21/22 Follow-up for acute kidney injury. Urine output of 2.7 L in the last 24 hours. Objective - Vital Signs Vital signs: Vital Signs Temp 98.2 F 11/21/22 11:20 Pulse 70 11/21/22 11:20 Resp 16 11/21/22 11:20 BP 125/78 11/21/22 11:20 Pulse Ox 98 11/21/22 11:20 FiO2 Intake & Output 11/20/22 11/21/22 11/21/22 18:59 06:59 18:59 Intake Total 548.832 237 240 Output Total 2161 625 3250 Balance -1612.168 -388 -3010 Weight 117.5 kg Intake: Intake, IV Titration 128.832 Amount Heparin Sod,Pork in 0.45% 128.832 NaCl 25,000 unit In 0.45 % NaCl 1 250ml.bag @ 10. 254 UNITS/KG/HR 10 mls/hr IV .Q24H [facility] Rx#: [id number] Oral 420 237 240 Output: Urine 8866 674 2705 Uretheral (Jo) 800 Post Void Residual 261 Other: Voiding Method External Catheter Indwelling Catheter Indwelling Catheter # Bowel Movements 1 1 - Exam Acute distress S1-S2 heard Decreased breath sounds Edema - Labs CBC & Chem 7: 11/21/22 07:15 11/20/22 06:41 Labs: Abnormal Lab Results - Last 24 Hours (Table) 11/20/22 11/20/22 11/21/22 Range/Units 16:43 20:04 06:10 WBC (3.8-10.6) k/uL RBC (4.30-5.90) m/uL Hgb (13.0-17.5) gm/dL Hct (39.0-53.0) % APTT (22.0-30.0) sec POC Glucose (mg/dL) 130 H 188 H 173 H (70-110) mg/dL 11/21/22 11/21/22 11/21/22 Range/Units 07:15 07:15 11:55 WBC 22.6 H (3.8-10.6) k/uL RBC 2.50 L (4.30-5.90) m/uL Hgb 7.5 L (13.0-17.5) gm/dL Hct 24.3 L (39.0-53.0) % APTT 62.9 H (22.0-30.0) sec POC Glucose (mg/dL) 228 H (70-110) mg/dL Assessment and Plan Assessment: #1 hyperkalemia multifactorial -GI bleed and urinary retention. -Renal function around baseline. #2 acute hypoxic respiratory failure from Covid pneumonia #3 DVT left leg #4 CK D stage II with a baseline creatinine of 1.0 MG per DL Plan: #1 renal function stable. No new labs today. #2 currently has Jo. #3 on Lasix. #4 check labs in the morning
[2022-11-21] MEDS: HEPARIN SOD,PORK IN 0.45% NACL 25,000 UNIT in 0.45% NACL 1 250ML.BAG IV SCH (15:43)
[2022-11-21 16:30] LABS: Glucose,Whole Blood 232 mg/dL (70-110)
[2022-11-21 20:38] LABS: Glucose,Whole Blood 222 mg/dL (70-110)
[2022-11-22 06:27] LABS: Glucose,Whole Blood 161 mg/dL (70-110)
[2022-11-22 06:43] LABS: HCT 22.8 % (39.0-53.0); Hypochromasia Marked; MCH 29.9 pg (25.0-35.0); MCHC 30.8 g/dL (31.0-37.0); MCV 96.9 fL (80.0-100.0); Macrocytosis Slight; Mean Platelet Volume 9.2; Platelet Count 254 k/uL (150-450); RBC 2.36 m/uL (4.30-5.90); RDW 15.9 % (11.5-15.5); WBC 22.9 k/uL (3.8-10.6)
[2022-11-22] MEDS: DEXAMETHASONE SOD PHOSPHATE 4 MG/ML 1 ML VIAL IVP SCH ×4 (06:52→22:59)
[2022-11-22] MEDS: LEVOTHYROXINE 50 MCG TAB PO SCH (06:53)
[2022-11-22] MEDS: INSULIN ASPART (NovoLOG) 100 UNIT/ML VIAL SQ SCH ×4 (06:53→21:06)
[2022-11-22 06:58] LABS: Calcium 7.2 mg/dL (8.4-10.2); Potassium 5.4 mmol/L (3.5-5.1)
--- NOTE | 2022-11-22 09:22 | P.PN ---
Subjective Progress Note Date: 11/22/22 Principal diagnosis: This is a 62-year-old male followed up with hyperkalemia, secondary to GI bleed and retention, acute kidney injury, from nausea vomiting and diarrhea. He was positive for Covid19 on 11/06/2022. He is known with sleep apnea, gastric bypass, Currently he denies any chest pain shortness of breath nausea vomiting but does have diarrhea. Is on IV heparin drip for DVT His potassium remains somewhat high at 5.4 with the non-gap acidosis bicarb of 17 gap of 1 with mild hyponatremia sodium is 132 creatinine has been stable at 1.1-1.13. Documented at 4550 with intake of 757. Jo catheter has been placed because of post void residual 261 Objective - Vital Signs Vital signs: Vital Signs Temp 97.9 F 11/22/22 08:35 Pulse 80 11/22/22 08:35 Resp 16 11/22/22 08:35 BP 115/75 11/22/22 08:35 Pulse Ox 97 11/22/22 08:35 FiO2 Intake & Output 11/21/22 11/22/22 11/22/22 18:59 06:59 18:59 Intake Total 757.927 668.366 Output Total 3600 950 Balance -2842.073 -950 668.366 Weight 120 kg Intake: Intake, IV Titration 247.927 168.366 Amount Heparin Sod,Pork in 0.45% 247.927 168.366 NaCl 25,000 unit In 0.45 % NaCl 1 250ml.bag @ 10. 254 UNITS/KG/HR 10 mls/hr IV .Q24H [facility] Rx#: [id number] Oral 510 500 Output: Urine 3600 950 Uretheral (Jo) 800 Other: Voiding Method Indwelling Catheter Indwelling Catheter # Bowel Movements 1 1 1 Examination awake alert but profoundly weak. Right arm is weak HEENT exam no JVP neck is supple no facial asymmetry Lungs clear to auscultation good air entry bilaterally Heart sounds unremarkable for any murmur rub gallop 2+ edema on the left and less so on the right. Neurologically awake alert oriented - Labs CBC & Chem 7: 11/22/22 05:47 11/22/22 05:47 Labs: Abnormal Lab Results - Last 24 Hours (Table) 11/21/22 11/21/22 11/21/22 Range/Units 11:55 16:23 20:35 WBC (3.8-10.6) k/uL RBC (4.30-5.90) m/uL Hgb (13.0-17.5) gm/dL Hct (39.0-53.0) % MCHC (31.0-37.0) g/dL RDW (11.5-15.5) % APTT (22.0-30.0) sec Sodium (137-145) mmol/L Potassium (3.5-5.1) mmol/L Chloride (98-107) mmol/L Carbon Dioxide (22-30) mmol/L BUN (9-20) mg/dL Glucose (74-99) mg/dL POC Glucose (mg/dL) 228 H 232 H 222 H (70-110) mg/dL Calcium (8.4-10.2) mg/dL 11/22/22 11/22/22 11/22/22 Range/Units 05:47 05:47 05:47 WBC 22.9 H (3.8-10.6) k/uL RBC 2.36 L (4.30-5.90) m/uL Hgb 7.0 L (13.0-17.5) gm/dL Hct 22.8 L (39.0-53.0) % MCHC 30.8 L (31.0-37.0) g/dL RDW 15.9 H (11.5-15.5) % APTT 57.2 H (22.0-30.0) sec Sodium 132 L (137-145) mmol/L Potassium 5.4 H (3.5-5.1) mmol/L Chloride 114 H (98-107) mmol/L Carbon Dioxide 17 L (22-30) mmol/L BUN 30 H (9-20) mg/dL Glucose 129 H (74-99) mg/dL POC Glucose (mg/dL) (70-110) mg/dL Calcium 7.2 L (8.4-10.2) mg/dL 11/22/22 Range/Units 06:25 WBC (3.8-10.6) k/uL RBC (4.30-5.90) m/uL Hgb (13.0-17.5) gm/dL Hct (39.0-53.0) % MCHC (31.0-37.0) g/dL RDW (11.5-15.5) % APTT (22.0-30.0) sec Sodium (137-145) mmol/L Potassium (3.5-5.1) mmol/L Chloride (98-107) mmol/L Carbon Dioxide (22-30) mmol/L BUN (9-20) mg/dL Glucose (74-99) mg/dL POC Glucose (mg/dL) 161 H (70-110) mg/dL Calcium (8.4-10.2) mg/dL Assessment and Plan Assessment: Impression 1. Acute kidney injury secondary to outlet obstruction, status post Jo catheter insertion 2. Hyperkalemia secondary to outlet obstruction Jo catheter placed. Potassium is improved et obstruction, peak of 6.1 on November 17, to 5.4 today 3. Paroxysmal atrial fibrillation currently in normal sinus rhythm. 4. Profound weakness and right-sided hand weakness 5. DVT left leg with edema recommendation. 6. Mild hyponatremia secondary to Lasix. Patient also has hypothyroidism but his last TSH is within normal limits on 50 g of levothyroxine Recommendation 1. Was started on oral bicarb 6 and 50 mg twice a day will increase it to 1300 mg 3 times a day. 2. Watch sodium and potassium
[2022-11-22] MEDS: PANTOPRAZOLE 40 MG/10 ML VIAL IVP SCH ×2 (10:14→21:06)
[2022-11-22] MEDS: SODIUM BICARBONATE TAB 650 MG TAB PO SCH ×4 (10:14→21:08)
[2022-11-22] MEDS: FUROSEMIDE 10 MG/ML 4 ML VIAL IV SCH (10:14)
[2022-11-22] MEDS: CHOLESTYRAMINE (WITH SUGAR) 4 GM PACKET PO SCH ×2 (10:14→17:21)
[2022-11-22] MEDS: ZINC SULFATE 220 MG CAP PO SCH (10:14)
[2022-11-22] MEDS: CHOLECALCIFEROL 25 MCG (1000 IU) TABLET PO SCH (10:15)
[2022-11-22] MEDS: THIAMINE 100 MG TAB PO SCH (10:15)
[2022-11-22] MEDS: DILTIAZEM ORAL 30 MG TAB PO SCH ×3 (10:15→21:06)
[2022-11-22] MEDS: ASCORBIC ACID 500 MG TAB PO SCH ×2 (10:15→21:06)
[2022-11-22] MEDS: FLUoxetine HCL 20 MG CAP PO SCH (10:15)
[2022-11-22] MEDS: CALCIUM CARBONATE 500 MG CHEWABLE PO SCH ×3 (10:15→21:06)
[2022-11-22] MEDS: FOLIC ACID 1 MG TAB PO SCH (10:15)
[2022-11-22] MEDS: MAGNESIUM OXIDE 400 MG TAB PO SCH (10:15)
[2022-11-22] MEDS: PYRIDOXINE 50 MG TAB PO SCH ×2 (10:16→21:06)
[2022-11-22] MEDS: CYANOCOBALAMIN 1,000 MCG/ML 1 ML VIAL IM SCH (10:16)
[2022-11-22 12:08] LABS: Glucose,Whole Blood 168 mg/dL (70-110)
--- NOTE | 2022-11-22 12:23 | P.PN ---
Subjective Progress Note Date: 11/20/22 62-year-old male in the emergency department for diarrhea. She notes diarrhea starting and he asked progressively gotten worse. He reports he stood up from a chair and had an episode of diarrhea, admits he still maintains bowel function. He has not tried anything for his symptoms. He denies nausea, vomiting, abdominal pain, palpitations, fevers. Denies recent travel or recent antibiotic use. He is scheduled to have his first colonoscopy in january of 2023. Patient had an initial lab work is remarkable for WBC is 11.4, hemoglobin 8.7, INR 1.2, sodium 133, potassium 2.6 lactic acid 2.9, calcium 6.3, magnesium 0.8, lipase 60, COVID positive. I interpreted the following; CT abdomen without contrast remarkable for fluid filled colon without focal wall thickening or surrounding inflammatory changes. Patient was given 2 L fluids, potassium, magnesium and calcium during his course of the ED. 11/08/2022 Patient is seen and evaluated on selective care unit; he went into atrial fibrillation with rapid ventricular response he [facility] The patient did not have any symptoms of heart racing or fluttering and no dizziness or lightheadedness and no presyncope or syncope and no symptoms of chest pain or chest discomfort or shortness of breath. No prior history of atrial fibrillation. No history of coronary artery disease or congestive heart failure or cardiac arrhythmia and the patient never seen a terrazzo installer in the past. Beside that no history of diabetes or hypertension or dyslipidemia. The patient was started initially on Cardizem drip but his pressure did go down and for that reason he was switched into amiodarone IV and subsequently converted to normal sinus mechanism and since then he has been maintaining normal sinus mechanism. Further investigation was performed including CBC and that showed a hemoglobin of 7.7. The patient has no history of bleeding. Beside that he underwent a computed tomography scan of the abdomen and pelvis because of the abdominal discomfort that showed no acute abnormalities. The troponin came in to be slightly elevated likely secondary to tachycardia. The EKG showed sinus rhythm now with no significant ST or T-wave abnormalities. Blood work reveals mild elevation of troponin; Patient has been evaluated by cardiology and recommended to continue with IV fluids, replace electrolytes; IV amiodarone is to be discontinued patient is transition to oral dose daily 11/09/2022 Patient is seen and evaluated in follow-up this morning and continues to feel generalized weakness and continues with loose stools. Per nursing staff when assisting to clean the patient up patient was significantly weak on the right. Patient denied any headache, dizziness, or lightheadedness. Will obtain a CT of the brain and also consult neurology. Recommend PT/OT therapy evaluation for significant weakness. C. diff testing was negative on the stool and will add Imodium and encourage oral intake and advance as tolerated. Patient is maintaining on vitamins and zinc supplements along with subcutaneous heparin with anxiety following closely. Patient denies chest pain or shortness of breath. Afebrile. Recommend a.m. labs as well. 11/10/2022 Patient is seen in follow-up today with multiple medical consultations including cardiology, hematology, infectious disease, and now neurology following. Patient with significant weakness in all upper and lower extremities with neurology undergoing workup recommending aspirin as patient is not on any anticoagulation at this time. Cardiology is following and patient was transitioned back to IV Cardizem although being changed to oral with close monitoring. Magnesium found to be significantly low at 1.2 and will replace per protocol and recommend repeat labs. Hemoglobin is mildly low at 7.4 and undergoing anemia workup with hematology following. Patient with Covid and extreme weakness will need ECF and discharge planning in process. Recommend close monitoring of labs and replace electrolytes per protocol. Patient was started on Imodium as C. diff testing 2 was negative. Patient continues to have loose stools although somewhat improved. Encouraged oral intake and increased activity as tolerated. Recommend PT/OT therapy daily. Patient denies chest pain or shortness of breath. Patient is 97% on room air. Patient will continue on vitamin and zinc supplements with anxiety following closely. Re commend gentle IV hydration. 11/11/2022 Patient is seen and evaluated in follow-up with multiple medical consultations following including infectious disease and neurology. Oncology following underg oing anemia workup. Hemoglobin was found to be 6.5 today and will order 1 unit of PRBC and recommend close monitoring. No active bleeding noted. Patient was started on baby aspirin per neurology and scheduled to undergo MRI of the cervical spine today. Patient continues with significant weakness and will need rehab upon discharge. Patient is maintained on vitamin and zinc supplements and was also being followed by cardiology. Adjustments to medications being done and patient is on oral Cardizem. Will follow-up with repeat labs. Patient is afebrile and denies shortness of breath. Patient clinically appears to be improving. Per nursing staff patient is incontinent of stool in continues to be somewhat loose although less frequent. C. diff testing was negative and stool cultures are negative. Encouraged oral intake. Will discuss with case management about discharge planning to ECF as he will require a Covid hub. 11/12/2022 Patient is seen and evaluated in follow-up today with multiple medical consultations following including infectious disease, cardiology, neurology. Fazal brito's hemoglobin is low again at 6.8 and will give 1 unit. Recommend holding aspirin. Patient did have an elevated d-dimer and CTA was ordered. GI was also consulted for anemia. Patient continues to have incontinence of stool and loose stools and is maintained on Questran and will be given Imodium as needed. Patient continues with generalized weakness and fatigue and also having some lower extremity pain and swelling and have ordered Dopplers of bilateral lower extremities as well. Patient with Covid vitamin and zinc supplements and anticoagulation with subcu heparin. Hematology also following for anemia. Recommend repeat CBC this evening and will transfuse another unit as well. C ardiology following and adjustments to medications being made and patient also being started on low-dose diuretics. Patient is having low-grade temps of 99.3- 99.6 and patient continues to be 95% or above on room air. Blood pressure on the lower side although stable. Stool cultures and C. diff testing have been negative. Patient started on antibiotics per ID recommendations in the form of Zithromax and ceftriaxone. Reviewed iron studies which are low and will give IV iron as well. Electrolytes continue to be low and will replace per protocol. Patient will need ECF once stabilized and discharged 11/13/2022 Patient is seen today with multiple medical consultations following and undergo ing neurological workup and having bilateral upper and lower extremity weakness. Neurology recommends orthopedic consultation which is currently pending. Patient did have some movement in his diarrhea and reports becoming more formed and less frequent. Patient continues to be incontinent of this. Patient being started on antibiotics with anxiety following an also continues to have anemia. GI recommending continuing with hematology workup. Multiple images including MRIs and pending at time. Patient with significant weakness will be going to rehab when stable. A.m. labs are pending. 11/14/2022 This is a pleasant 62 years old male with Covid pneumonia and bacterial pneumonia especially in the right lower lobe. His been covered with Zithromax and ceftriaxone with ID team and pulmonary team on the case. His breathing looks improvement, now much tachypnea or dyspnea. She is complaining of from bilateral upper extremity weakness, MRI ordered by orthopedic team showing spinal stenosis of C5 to C6 with possible osteo-discitis of L3-L4 and orthopedic team R following closely. Also he is on dexamethasone Patient had ultrasound of the legs showing no DVT on the right leg with non-o cclusive thrombosis of the left leg. Hematology team are currently following with and he is patient on subcutaneous heparin. Patient still have diarrhea about 3 times per day yesterday no abdominal pain or vomiting. Patient currently on Zithromax and ceftriaxone, oral Lasix and normal saline 75 mL/h 11/15/2022 Patient Covid pneumonia is improving and he has minimal respiratory symptoms, no dyspnea at rest, patient is not working, no chest pain, occasional coughing, he is saturating well and he continued on treatment with dexamethasone which is helping also has a spine disease as he has C5-C6 stenosis orthopedic team on the case, no surgical intervention Also his continued on Zithromax and ceftriaxone for his pneumonia with ID team on the case. Patient has left leg swelling most likely secondary to nonocclusive DVT however patient could not get anticoagulation because of his severe anemia, hematology input is appreciated, anticoagulation has more risks than benefits. We are going to check occult blood in the stool, hemoglobin today slightly going down 7.3. However anemia workup showing some evidence of anemia of chronic disease patient also with A. fib but no need for intervention for this purpose as her score 0. Chemistry Professor. 11/16/2022 Patient still has bilateral upper extremity weakness mainly on the right side, thought secondary to C5-C6 is stenosis with no plan for surgical intervention by orthopedic team. Patient also on dexamethasone for Covid pneumonia and Zithromax ceftriaxone for possible bacterial superinfection especially in the right lower lobe. Her satur ation is acceptable. Blood pressure is stable low-normal. There is no evidence of bleeding, occult blood in the stool is negative. Patient has evidence of left DVT, his anemia although severe as most likely secondary to anemia of chronic disease, repeat anemia workup was requested, I discussed the case with hematology team, possibly we will start him on anticoagulation once workup is finished. No need for anticoagulation or aspirin for A. fib per Chemistry Professor. No need for aspirin also per neurologist. 11/17/2022 Patient awake sitting up in bed looks comfortable. His breathing is improved while continue current antibiotic Patient is still have weakness more the right arm and left arm, Orthopedic team on the case and they recommended MRI of the whole spine which is pending. Also I discussed with the bedside nurse disorder hard collar. He still on heparin drip for his left leg DVT, benefits more than risk. Monitor hemoglobin 11/18/2022 Patient sitting up in bed does not look in distress, he does not have new complaint His been followed by orthopedic team and MRI of the spine is pending for his right upper extremity weakness more on the right side. Other than that his her pneumonia significantly improved and currently he is on ceftriaxone. Also he is on dexamethasone for his Covid infection. Patient is tolerated heparin drip. For his left leg DVT with hematology team recommendation. Hemoglobin today actually improvement 7.9. Patient would benefit from EGD/colonoscopy as an outpatient. Normal saline was discontinued. 11/19/2022 Patient sitting up in bed denies any complaint. He continue on ceftriaxone for right lower lobe pneumonia and dexamethasone for Covid pneumonia. Also he is on heparin drip for left leg DVT, which is mildly swollen compared to the right side. Patient with persistent hyperkalemia with rubbing bed operator consulted, patient is started on IV Lasix, and sodium bicarbonate and check renal ultrasound. Orthopedic team following, MRI of the spine pending. 11/20/2022 Patient is currently resting in the bed. Awake alert and oriented 3. Still having right upper extremity weakness. Patient is afebrile otherwise. No complains of chest pain or shortness of breath. Currently on room air. Laboratory data showed WBC 21.8 mg on 0.0 platelets 262 Sodium 133 potassium 5.7, chloride 107 bicarb is 14 BUN 26 and creatinine 1.04 and calcium 7.2 Patient is being continued on heparin drip. On Cardizem by mouth. MRI of the thoracic spine and lumbar spine to be done today. Current medications reviewed. Objective - Vital Signs Vital signs: Vital Signs Temp 97.6 F 11/20/22 19:50 Pulse 61 11/20/22 19:50 Resp 16 11/20/22 19:50 BP 113/69 11/20/22 19:50 Pulse Ox 97 11/20/22 19:50 FiO2 Intake & Output 11/20/22 11/20/22 11/21/22 06:59 18:59 06:59 Intake Total 509.932 548.832 Output Total 700 2161 Balance -190.068 -1612.168 Weight 119 kg Intake: Intake, IV Titration 109.932 128.832 Amount Heparin Sod,Pork in 0.45% 109.932 128.832 NaCl 25,000 unit In 0.45 % NaCl 1 250ml.bag @ 10. 254 UNITS/KG/HR 10 mls/hr IV .Q24H [facility] Rx#: [id number] Oral 400 420 Output: Urine 700 1900 Post Void Residual 261 Other: Voiding Method External Catheter External Catheter Incontinent # Bowel Movements 1 - Exam - Exam -GENERAL: The patient is alert and oriented x3, not in any acute distress. Well developed, well nourished. Generally weak -HEENT: Pupils are round and equally reacting to light. EOMI. No scleral icterus. No conjunctival pallor. Normocephalic, atraumatic. No pharyngeal erythema. No thyromegaly. Dry mucous membranes, mild CARDIOVASCULAR: S1 and S2 present. No murmurs, rubs, or gallops. PULMONARY: Chest is clear to auscultation, no wheezing or crackles. ABDOMEN: Soft, nontender, nondistended, normoactive bowel sounds. No palpable organomegaly. MUSCULOSKELETAL: No joint swelling or deformity. -EXTREMITIES: No cyanosis, clubbing, or pedal edema. left leg swelling NEUROLOGICAL: Gross neurological examination did not reveal any focal deficits. SKIN: No rashes. no petechiae. - Labs CBC & Chem 7: 11/22/22 05:47 11/22/22 05:47 Labs: Abnormal Lab Results - Last 24 Hours (Table) 11/19/22 11/20/22 11/20/22 Range/Units 23:47 06:09 06:41 WBC 21.8 H (3.8-10.6) k/uL RBC 2.56 L (4.30-5.90) m/uL Hgb 7.0 L (13.0-17.5) gm/dL Hct 25.6 L (39.0-53.0) % MCV 100.2 H (80.0-100.0) fL MCHC 27.4 L (31.0-37.0) g/dL Neutrophils # (Manual) 18.30 H (1.3-7.7) k/uL Metamyelocytes # (Man) 0.44 H (0) k/uL Myelocytes # (Manual) 0.44 H (0) k/uL APTT 144.5 H* (22.0-30.0) sec Sodium (137-145) mmol/L Potassium (3.5-5.1) mmol/L Chloride (98-107) mmol/L Carbon Dioxide (22-30) mmol/L BUN (9-20) mg/dL Glucose (74-99) mg/dL POC Glucose (mg/dL) 192 H (70-110) mg/dL Calcium (8.4-10.2) mg/dL 11/20/22 11/20/22 11/20/22 Range/Units 06:41 08:56 11:37 WBC (3.8-10.6) k/uL RBC (4.30-5.90) m/uL Hgb (13.0-17.5) gm/dL Hct (39.0-53.0) % MCV (80.0-100.0) fL MCHC (31.0-37.0) g/dL Neutrophils # (Manual) (1.3-7.7) k/uL Metamyelocytes # (Man) (0) k/uL Myelocytes # (Manual) (0) k/uL APTT 61.7 H (22.0-30.0) sec Sodium 133 L (137-145) mmol/L Potassium 5.7 H (3.5-5.1) mmol/L Chloride 117 H (98-107) mmol/L Carbon Dioxide 14 L (22-30) mmol/L BUN 26 H (9-20) mg/dL Glucose 147 H (74-99) mg/dL POC Glucose (mg/dL) 203 H (70-110) mg/dL Calcium 7.2 L (8.4-10.2) mg/dL 11/20/22 11/20/22 Range/Units 16:43 20:04 WBC (3.8-10.6) k/uL RBC (4.30-5.90) m/uL Hgb (13.0-17.5) gm/dL Hct (39.0-53.0) % MCV (80.0-100.0) fL MCHC (31.0-37.0) g/dL Neutrophils # (Manual) (1.3-7.7) k/uL Metamyelocytes # (Man) (0) k/uL Myelocytes # (Manual) (0) k/uL APTT (22.0-30.0) sec Sodium (137-145) mmol/L Potassium (3.5-5.1) mmol/L Chloride (98-107) mmol/L Carbon Dioxide (22-30) mmol/L BUN (9-20) mg/dL Glucose (74-99) mg/dL POC Glucose (mg/dL) 130 H 188 H (70-110) mg/dL Calcium (8.4-10.2) mg/dL Assessment and Plan Assessment: Bilateral Pneumonia with superimposed gram-negative bacterial infection is s uspected mainly in the right lower lobe Acute hypoxic respiratory failure. Titrate down to the retina. Sepsis secondary to above Possible discitis as per MRI cervical spine. Hyperkalemia Anemia with vitamin B12 deficiency and currently on IM B12 replacement therapy Elevated troponin, most likely type II. No chest pain, normal LV function Low vitamin B12 and B6 Nonocclusive thrombosis of the left leg Paroxysmal atrial fibrillation no anticoagulation with score of 0 per Chemistry Professor Plan: Patient completed antibiotic course. Ceftriaxone has been discontinued. Continue with dexamethasone per orthopedic team Continue with vitamin B12 replacement therapy Continue with IV Lasix and sodium bicarb MRI cervical spine showed possible discitis. Orthopedic surgery is on board. Continue with heparin drip. Due to DVT left lower extremity. Several consultants on the case including neurologist, director long term care, terrazzo installer, GI (signed off, no GI coverage this week), infectious disease team and orthopedic team DVT prophylaxis: On heparin drip currently. GI Prophylaxis: Ppi PT/OT: Pending Prognosis is guarded Time with Patient: Greater than 30
--- NOTE | 2022-11-22 12:27 | P.PN ---
Subjective Progress Note Date: 11/21/22 62-year-old male in the emergency department for diarrhea. She notes diarrhea starting and he asked progressively gotten worse. He reports he stood up from a chair and had an episode of diarrhea, admits he still maintains bowel function. He has not tried anything for his symptoms. He denies nausea, vomiting, abdominal pain, palpitations, fevers. Denies recent travel or recent antibiotic use. He is scheduled to have his first colonoscopy in january of 2023. Patient had an initial lab work is remarkable for WBC is 11.4, hemoglobin 8.7, INR 1.2, sodium 133, potassium 2.6 lactic acid 2.9, calcium 6.3, magnesium 0.8, lipase 60, COVID positive. I interpreted the following; CT abdomen without contrast remarkable for fluid filled colon without focal wall thickening or surrounding inflammatory changes. Patient was given 2 L fluids, potassium, magnesium and calcium during his course of the ED. 11/08/2022 Patient is seen and evaluated on selective care unit; he went into atrial fibrillation with rapid ventricular response he was transferred to the third [facility]. The patient did not have any symptoms of heart racing or fluttering and no dizziness or lightheadedness and no presyncope or syncope and no symptoms of chest pain or chest discomfort or shortness of breath. No prior history of atrial fibrillation. No history of coronary artery disease or congestive heart failure or cardiac arrhythmia and the patient never seen a sweet pickle maker in the past. Beside that no history of diabetes or hypertension or dyslipidemia. The patient was started initially on Cardizem drip but his pressure did go down and for that reason he was switched into amiodarone IV and subsequently converted to normal sinus mechanism and since then he has been maintaining normal sinus mechanism. Further investigation was performed including CBC and that showed a hemoglobin of 7.7. The patient has no history of bleeding. Beside that he underwent a computed tomography scan of the abdomen and pelvis because of the abdominal discomfort that showed no acute abnormalities. The troponin came in to be slightly elevated likely secondary to tachycardia. The EKG showed sinus rhythm now with no significant ST or T-wave abnormalities. Blood work reveals mild elevation of troponin; Patient has been evaluated by cardiology and recommended to continue with IV fluids, replace electrolytes; IV amiodarone is to be discontinued patient is transition to oral dose daily 11/09/2022 Patient is seen and evaluated in follow-up this morning and continues to feel generalized weakness and continues with loose stools. Per nursing staff when assisting to clean the patient up patient was significantly weak on the right. Patient denied any headache, dizziness, or lightheadedness. Will obtain a CT of the brain and also consult neurology. Recommend PT/OT therapy evaluation for significant weakness. C. diff testing was negative on the stool and will add Imodium and encourage oral intake and advance as tolerated. Patient is maintaining on vitamins and zinc supplements along with subcutaneous heparin with anxiety following closely. Patient denies chest pain or shortness of breath. Afebrile. Recommend a.m. labs as well. 11/10/2022 Patient is seen in follow-up today with multiple medical consultations including cardiology, hematology, infectious disease, and now neurology following. Patient with significant weakness in all upper and lower extremities with neurology undergoing workup recommending aspirin as patient is not on any anticoagulation at this time. Cardiology is following and patient was transitioned back to IV Cardizem although being changed to oral with close monitoring. Magnesium found to be significantly low at 1.2 and will replace per protocol and recommend repeat labs. Hemoglobin is mildly low at 7.4 and undergoing anemia workup with hematology following. Patient with Covid and extreme weakness will need ECF and discharge planning in process. Recommend close monitoring of labs and replace electrolytes per protocol. Patient was started on Imodium as C. diff testing 2 was negative. Patient continues to have loose stools although somewhat improved. Encouraged oral intake and increased activity as tolerated. Recommend PT/OT therapy daily. Patient denies chest pain or shortness of breath. Patient is 97% on room air. Patient will continue on vitamin and zinc supplements with anxiety following closely. Re commend gentle IV hydration. 11/11/2022 Patient is seen and evaluated in follow-up with multiple medical consultations following including infectious disease and neurology. Oncology following underg oing anemia workup. Hemoglobin was found to be 6.5 today and will order 1 unit of PRBC and recommend close monitoring. No active bleeding noted. Patient was started on baby aspirin per neurology and scheduled to undergo MRI of the cervical spine today. Patient continues with significant weakness and will need rehab upon discharge. Patient is maintained on vitamin and zinc supplements and was also being followed by cardiology. Adjustments to medications being done and patient is on oral Cardizem. Will follow-up with repeat labs. Patient is afebrile and denies shortness of breath. Patient clinically appears to be improving. Per nursing staff patient is incontinent of stool in continues to be somewhat loose although less frequent. C. diff testing was negative and stool cultures are negative. Encouraged oral intake. Will discuss with case management about discharge planning to ECF as he will require a Covid hub. 11/12/2022 Patient is seen and evaluated in follow-up today with multiple medical consultations following including infectious disease, cardiology, neurology. Fazal brito's hemoglobin is low again at 6.8 and will give 1 unit. Recommend holding aspirin. Patient did have an elevated d-dimer and CTA was ordered. GI was also consulted for anemia. Patient continues to have incontinence of stool and loose stools and is maintained on Questran and will be given Imodium as needed. Patient continues with generalized weakness and fatigue and also having some lower extremity pain and swelling and have ordered Dopplers of bilateral lower extremities as well. Patient with Covid vitamin and zinc supplements and anticoagulation with subcu heparin. Hematology also following for anemia. Recommend repeat CBC this evening and will transfuse another unit as well. C ardiology following and adjustments to medications being made and patient also being started on low-dose diuretics. Patient is having low-grade temps of 99.3- 99.6 and patient continues to be 95% or above on room air. Blood pressure on the lower side although stable. Stool cultures and C. diff testing have been negative. Patient started on antibiotics per ID recommendations in the form of Zithromax and ceftriaxone. Reviewed iron studies which are low and will give IV iron as well. Electrolytes continue to be low and will replace per protocol. Patient will need ECF once stabilized and discharged 11/13/2022 Patient is seen today with multiple medical consultations following and undergo ing neurological workup and having bilateral upper and lower extremity weakness. Neurology recommends orthopedic consultation which is currently pending. Patient did have some movement in his diarrhea and reports becoming more formed and less frequent. Patient continues to be incontinent of this. Patient being started on antibiotics with anxiety following an also continues to have anemia. GI recommending continuing with hematology workup. Multiple images including MRIs and pending at time. Patient with significant weakness will be going to rehab when stable. A.m. labs are pending. 11/14/2022 This is a pleasant 62 years old male with Covid pneumonia and bacterial pneumonia especially in the right lower lobe. His been covered with Zithromax and ceftriaxone with ID team and pulmonary team on the case. His breathing looks improvement, now much tachypnea or dyspnea. She is complaining of from bilateral upper extremity weakness, MRI ordered by orthopedic team showing spinal stenosis of C5 to C6 with possible osteo-discitis of L3-L4 and orthopedic team R following closely. Also he is on dexamethasone Patient had ultrasound of the legs showing no DVT on the right leg with non-o cclusive thrombosis of the left leg. Hematology team are currently following with and he is patient on subcutaneous heparin. Patient still have diarrhea about 3 times per day yesterday no abdominal pain or vomiting. Patient currently on Zithromax and ceftriaxone, oral Lasix and normal saline 75 mL/h 11/15/2022 Patient Covid pneumonia is improving and he has minimal respiratory symptoms, no dyspnea at rest, patient is not working, no chest pain, occasional coughing, he is saturating well and he continued on treatment with dexamethasone which is helping also has a spine disease as he has C5-C6 stenosis orthopedic team on the case, no surgical intervention Also his continued on Zithromax and ceftriaxone for his pneumonia with ID team on the case. Patient has left leg swelling most likely secondary to nonocclusive DVT however patient could not get anticoagulation because of his severe anemia, hematology input is appreciated, anticoagulation has more risks than benefits. We are going to check occult blood in the stool, hemoglobin today slightly going down 7.3. However anemia workup showing some evidence of anemia of chronic disease patient also with A. fib but no need for intervention for this purpose as her score 0. Ribbon Hand. 11/16/2022 Patient still has bilateral upper extremity weakness mainly on the right side, thought secondary to C5-C6 is stenosis with no plan for surgical intervention by orthopedic team. Patient also on dexamethasone for Covid pneumonia and Zithromax ceftriaxone for possible bacterial superinfection especially in the right lower lobe. Her satur ation is acceptable. Blood pressure is stable low-normal. There is no evidence of bleeding, occult blood in the stool is negative. Patient has evidence of left DVT, his anemia although severe as most likely secondary to anemia of chronic disease, repeat anemia workup was requested, I discussed the case with hematology team, possibly we will start him on anticoagulation once workup is finished. No need for anticoagulation or aspirin for A. fib per Ribbon Hand. No need for aspirin also per neurologist. 11/17/2022 Patient awake sitting up in bed looks comfortable. His breathing is improved while continue current antibiotic Patient is still have weakness more the right arm and left arm, Orthopedic team on the case and they recommended MRI of the whole spine which is pending. Also I discussed with the bedside nurse disorder hard collar. He still on heparin drip for his left leg DVT, benefits more than risk. Monitor hemoglobin 11/18/2022 Patient sitting up in bed does not look in distress, he does not have new complaint His been followed by orthopedic team and MRI of the spine is pending for his right upper extremity weakness more on the right side. Other than that his her pneumonia significantly improved and currently he is on ceftriaxone. Also he is on dexamethasone for his Covid infection. Patient is tolerated heparin drip. For his left leg DVT with hematology team recommendation. Hemoglobin today actually improvement 7.9. Patient would benefit from EGD/colonoscopy as an outpatient. Normal saline was discontinued. 11/19/2022 Patient sitting up in bed denies any complaint. He continue on ceftriaxone for right lower lobe pneumonia and dexamethasone for Covid pneumonia. Also he is on heparin drip for left leg DVT, which is mildly swollen compared to the right side. Patient with persistent hyperkalemia with curing oven attendant consulted, patient is started on IV Lasix, and sodium bicarbonate and check renal ultrasound. Orthopedic team following, MRI of the spine pending. 11/20/2022 Patient is currently resting in the bed. Awake alert and oriented 3. Still having right upper extremity weakness. Patient is afebrile otherwise. No complains of chest pain or shortness of breath. Currently on room air. Laboratory data showed WBC 21.8 mg on 0.0 platelets 262 Sodium 133 potassium 5.7, chloride 107 bicarb is 14 BUN 26 and creatinine 1.04 and calcium 7.2 Patient is being continued on heparin drip. On Cardizem by mouth. MRI of the thoracic spine and lumbar spine to be done today. 11/21/2022 Patient is resting in bed. Awake alert and oriented 3. No complaints of chest pain or shortness of breath. Currently on room air. No nausea vomiting or abdominal pain or diarrhea. MRI cervical spine showed possible discitis. Orthopedic surgery is on board. Patient still having the right upper extremity weakness. Otherwise is planning for OR on Wednesday. Laboratory data showed WBC 22.6-year-old 7.5 platelets 266. CRP level is less than 0.5. Patient is being continued on heparin drip for lower extremity DVT. Orthopedic surgery, ID and nephrology is on board. Current medications reviewed. Objective - Vital Signs Vital signs: Vital Signs Temp 98.3 F 11/21/22 20:00 Pulse 70 11/21/22 20:00 Resp 16 11/21/22 20:00 BP 142/88 11/21/22 20:00 Pulse Ox 97 11/21/22 20:00 FiO2 Intake & Output 11/21/22 11/21/22 11/22/22 06:59 18:59 06:59 Intake Total 237 757.927 Output Total 625 3600 Balance -388 -2842.073 Weight 117.5 kg Intake: Intake, IV Titration 247.927 Amount Heparin Sod,Pork in 0.45% 247.927 NaCl 25,000 unit In 0.45 % NaCl 1 250ml.bag @ 10. 254 UNITS/KG/HR 10 mls/hr IV .Q24H [facility] Rx#: [id number] Oral 237 510 Output: Urine 625 3600 Uretheral (Jo) 800 Other: Voiding Method Indwelling Catheter Indwelling Catheter # Bowel Movements 1 1 - Exam - Exam -GENERAL: The patient is alert and oriented x3, not in any acute distress. Well developed, well nourished. Generally weak -HEENT: Pupils are round and equally reacting to light. EOMI. No scleral icterus. No conjunctival pallor. Normocephalic, atraumatic. No pharyngeal erythema. No thyromegaly. Dry mucous membranes, mild CARDIOVASCULAR: S1 and S2 present. No murmurs, rubs, or gallops. PULMONARY: Chest is clear to auscultation, no wheezing or crackles. ABDOMEN: Soft, nontender, nondistended, normoactive bowel sounds. No palpable organomegaly. MUSCULOSKELETAL: No joint swelling or deformity. -EXTREMITIES: No cyanosis, clubbing, or pedal edema. left leg swelling NEUROLOGICAL: Gross neurological examination did not reveal any focal deficits. SKIN: No rashes. no petechiae. - Labs CBC & Chem 7: 11/22/22 05:47 11/22/22 05:47 Labs: Abnormal Lab Results - Last 24 Hours (Table) 11/21/22 11/21/22 11/21/22 Range/Units 06:10 07:15 07:15 WBC 22.6 H (3.8-10.6) k/uL RBC 2.50 L (4.30-5.90) m/uL Hgb 7.5 L (13.0-17.5) gm/dL Hct 24.3 L (39.0-53.0) % APTT 62.9 H (22.0-30.0) sec POC Glucose (mg/dL) 173 H (70-110) mg/dL 11/21/22 11/21/22 Range/Units 11:55 16:23 WBC (3.8-10.6) k/uL RBC (4.30-5.90) m/uL Hgb (13.0-17.5) gm/dL Hct (39.0-53.0) % APTT (22.0-30.0) sec POC Glucose (mg/dL) 228 H 232 H (70-110) mg/dL Assessment and Plan Assessment: Bilateral Pneumonia with superimposed gram-negative bacterial infection is suspected mainly in the right lower lobe. Completed antibiotic course. Acute hypoxic respiratory failure. Titrate down to room air.. Sepsis secondary to above Possible discitis as per MRI cervical spine. Hyperkalemia due to urinary retention and acute kidney injury. Improving now. Anemia with vitamin B12 deficiency and currently on IM B12 replacement therapy Elevated troponin, most likely type II. No chest pain, normal LV function Low vitamin B12 and B6 Nonocclusive thrombosis of the left leg Paroxysmal atrial fibrillation no anticoagulation with score of 0 per Ribbon Hand Plan: Patient completed antibiotic course. Ceftriaxone has been discontinued. Continue with dexamethasone per orthopedic team Continue with vitamin B12 replacement therapy Continue with IV Lasix 40 mg daily and sodium bicarb MRI cervical spine showed possible discitis. Orthopedic surgery is planning for or on Wednesday. Continue with heparin drip. Due to DVT left lower extremity. Several consultants on the case including neurologist, plastics and composites inspector, sweet pickle maker, GI (signed off, no GI coverage this week), infectious disease team and orthopedic team DVT prophylaxis: On heparin drip currently. GI Prophylaxis: Ppi PT/OT: Pending Prognosis is guarded Time with Patient: Greater than 30
--- NOTE | 2022-11-22 13:04 | P.PN ---
Subjective Progress Note Date: 11/22/22 Principal diagnosis: Bilateral upper extremity weakness; back pain Patient seen and examined this morning. Patient is resting in bed. He denies any pain at this time. His symptoms remain the same, no improvement in the right upper extremity or bilateral lower extremities. Patient states his biggest concern at this time is the swelling to the left lower extremity. Patient had his sister on the phone with questions regarding his procedures, no further concerns at this time. He has been afebrile, denies nausea/vomiting, or chest pain. Objective - Vital Signs Vital signs: Vital Signs Temp 97.4 F L 11/22/22 11:44 Pulse 65 11/22/22 11:44 Resp 16 11/22/22 11:44 BP 122/73 11/22/22 11:44 Pulse Ox 98 11/22/22 11:44 FiO2 Intake & Output 11/21/22 11/22/22 11/22/22 18:59 06:59 18:59 Intake Total 757.927 668.366 Output Total 3600 950 500 Balance -2842.073 -950 168.366 Weight 120 kg Intake: Intake, IV Titration 247.927 168.366 Amount Heparin Sod,Pork in 0.45% 247.927 168.366 NaCl 25,000 unit In 0.45 % NaCl 1 250ml.bag @ 10. 254 UNITS/KG/HR 10 mls/hr IV .Q24H [facility] Rx#: [id number] Oral 510 500 Output: Urine 3600 950 500 Uretheral (Jo) 800 Other: Voiding Method Indwelling Catheter Indwelling Catheter # Bowel Movements 1 1 1 - Exam Physical Examination General: The patient is awake and alert, in no acute distress Skin: Skin is warm and dry with no obvious rashes or lesions. Hairy patches absent, no dorsal skin dimples, no cafe au lait spots, and no surgical incisions. Eye: Pupils are equal, round and reactive to light, extra-ocular movements are intact; there is normal conjunctiva bilaterally. Neck: The neck is supple, there is no tenderness and ROM intact. Cardiovascular: There is a regular rate and rhythm. No murmur, rub or gallop is appreciated. Left lower 2+ pitting edema present. Respiratory: Lungs are clear to auscultation, respirations are non-labored, breath sounds are equal. Gastrointestinal: Soft, non-distended, non-tender abdomen. Back: There is no tenderness to palpation in the midline, paralumbar, parathoracic or buttocks region. There is no obvious deformity . Musculoskeletal: ROM limited secondary to pain and stiffness from surgical procedure. Muscle strength in all major muscle groups of right upper extremity 3/5, left upper extremity 4/5, bilateral lower extremities 4-/5. Neurological: CN 2-12 intact. There are no obvious motor or sensory deficits. Movement and coordination equal and intact. Sensory exam to light touch intact C5-T1 and intact from L2-S1. Reflexes 2/4 in bilateral upper and lower extremities. Negative Hoffmans, babinski, and clonus signs. Psychiatric: Cooperative, appropriate mood & affect, normal judgment. - Labs CBC & Chem 7: 11/22/22 05:47 11/22/22 05:47 Labs: Abnormal Lab Results - Last 24 Hours (Table) 11/21/22 11/21/22 11/22/22 Range/Units 16:23 20:35 05:47 WBC 22.9 H (3.8-10.6) k/uL RBC 2.36 L (4.30-5.90) m/uL Hgb 7.0 L (13.0-17.5) gm/dL Hct 22.8 L (39.0-53.0) % MCHC 30.8 L (31.0-37.0) g/dL RDW 15.9 H (11.5-15.5) % APTT (22.0-30.0) sec Sodium (137-145) mmol/L Potassium (3.5-5.1) mmol/L Chloride (98-107) mmol/L Carbon Dioxide (22-30) mmol/L BUN (9-20) mg/dL Glucose (74-99) mg/dL POC Glucose (mg/dL) 232 H 222 H (70-110) mg/dL Calcium (8.4-10.2) mg/dL 11/22/22 11/22/22 11/22/22 Range/Units 05:47 05:47 06:25 WBC (3.8-10.6) k/uL RBC (4.30-5.90) m/uL Hgb (13.0-17.5) gm/dL Hct (39.0-53.0) % MCHC (31.0-37.0) g/dL RDW (11.5-15.5) % APTT 57.2 H (22.0-30.0) sec Sodium 132 L (137-145) mmol/L Potassium 5.4 H (3.5-5.1) mmol/L Chloride 114 H (98-107) mmol/L Carbon Dioxide 17 L (22-30) mmol/L BUN 30 H (9-20) mg/dL Glucose 129 H (74-99) mg/dL POC Glucose (mg/dL) 161 H (70-110) mg/dL Calcium 7.2 L (8.4-10.2) mg/dL Assessment and Plan Assessment: Bilateral upper extremity weakness Left knee pain Plan: Plan will be for OR on Wednesday for neck and for back. 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 Appreciate medical management Pain management - Tylenol DVT prophylaxis - heparin gtt GI prophylaxis - Protonix; Tums PT/OT - weightbearing as tolerated with walker. Appreciate consult
--- NOTE | 2022-11-22 14:10 | P.PN ---
Subjective Progress Note Date: 11/22/22 Principal diagnosis: Covid 19 Patient is a 62-year-old male who is unvaccinated for COVID-19 patient was brought into the ER for evaluation of weakness no energy mention the patient was not able to get stand up and go to the bathroom patient has been dealing with the diarrhea off and on for couple of weeks, patient was noticed to have a positive covid test, however the patient was not hypoxic and CT abdominal pelvis with few bibasilar patchy groundglass opacity representing atelectasis and no evidence of colitis. On today's evaluation that is 11/22/2022, the patient continues to be afebrile, the patient is breathing comfortably on room air, The patient denies chest pain , the patient cough has decreased in intensity and not bringing up any sputum, the patient denies chest pain no abdominal pain and diarrhea has resolved Objective - Vital Signs Vital signs: Vital Signs Temp 97.4 F L 11/22/22 11:44 Pulse 65 11/22/22 11:44 Resp 16 11/22/22 11:44 BP 122/73 11/22/22 11:44 Pulse Ox 98 11/22/22 11:44 FiO2 Intake & Output 11/21/22 11/22/22 11/22/22 18:59 06:59 18:59 Intake Total 757.927 668.366 Output Total 3600 950 500 Balance -2842.073 -950 168.366 Weight 120 kg Intake: Intake, IV Titration 247.927 168.366 Amount Heparin Sod,Pork in 0.45% 247.927 168.366 NaCl 25,000 unit In 0.45 % NaCl 1 250ml.bag @ 10. 254 UNITS/KG/HR 10 mls/hr IV .Q24H [facility] Rx#: [id number] Oral 510 500 Output: Urine 3600 950 500 Uretheral (Jo) 800 Other: Voiding Method Indwelling Catheter Indwelling Catheter Indwelling Catheter # Bowel Movements 1 1 1 - Exam GENERAL DESCRIPTION: An elderly male lying in bed in no distress RESPIRATORY SYSTEM: Unlabored breathing , decreased breath sounds at bases HEART: S1 S2 regular rate and rhythm , ABDOMEN: Soft , no tenderness EXTREMITIES: No edema feet - Labs CBC & Chem 7: 11/22/22 05:47 11/22/22 05:47 Labs: Abnormal Lab Results - Last 24 Hours (Table) 11/21/22 11/21/22 11/22/22 Range/Units 16:23 20:35 05:47 WBC 22.9 H (3.8-10.6) k/uL RBC 2.36 L (4.30-5.90) m/uL Hgb 7.0 L (13.0-17.5) gm/dL Hct 22.8 L (39.0-53.0) % MCHC 30.8 L (31.0-37.0) g/dL RDW 15.9 H (11.5-15.5) % APTT (22.0-30.0) sec Sodium (137-145) mmol/L Potassium (3.5-5.1) mmol/L Chloride (98-107) mmol/L Carbon Dioxide (22-30) mmol/L BUN (9-20) mg/dL Glucose (74-99) mg/dL POC Glucose (mg/dL) 232 H 222 H (70-110) mg/dL Calcium (8.4-10.2) mg/dL 11/22/22 11/22/22 11/22/22 Range/Units 05:47 05:47 06:25 WBC (3.8-10.6) k/uL RBC (4.30-5.90) m/uL Hgb (13.0-17.5) gm/dL Hct (39.0-53.0) % MCHC (31.0-37.0) g/dL RDW (11.5-15.5) % APTT 57.2 H (22.0-30.0) sec Sodium 132 L (137-145) mmol/L Potassium 5.4 H (3.5-5.1) mmol/L Chloride 114 H (98-107) mmol/L Carbon Dioxide 17 L (22-30) mmol/L BUN 30 H (9-20) mg/dL Glucose 129 H (74-99) mg/dL POC Glucose (mg/dL) 161 H (70-110) mg/dL Calcium 7.2 L (8.4-10.2) mg/dL 11/22/22 Range/Units 12:05 WBC (3.8-10.6) k/uL RBC (4.30-5.90) m/uL Hgb (13.0-17.5) gm/dL Hct (39.0-53.0) % MCHC (31.0-37.0) g/dL RDW (11.5-15.5) % APTT (22.0-30.0) sec Sodium (137-145) mmol/L Potassium (3.5-5.1) mmol/L Chloride (98-107) mmol/L Carbon Dioxide (22-30) mmol/L BUN (9-20) mg/dL Glucose (74-99) mg/dL POC Glucose (mg/dL) 168 H (70-110) mg/dL Calcium (8.4-10.2) mg/dL Assessment and Plan (1) COVID-19 Current Visit: Yes Status: Acute Priority: High Code(s): U07.1 - COVID-19 SNOMED Code(s): 930191465 (2) Diarrhea Current Visit: Yes Status: Acute Priority: High Code(s): R19.7 - DIARRHEA, UNSPECIFIED SNOMED Code(s): 61526379 Plan: 1patient present to hospital generalized weakness which is likely multifactorial could be related to his diarrhea has not patient did have significant diarrhea and evidence of prerenal status was low potassium, stool for C. diff is negative stool cultures has been obtained and currently pending, patient to continue Questran and advised to increase his probiotic and yogurt intake 2patient with a low-grade fever, the patient did have elevated pro calcitonin, CT angiogram of the chest was negative for PE however did shows right lower lobe infiltrate suspicious for pneumonia 3-patient fever has resolved, patient has received adequate antibiotic therapy for underlying pneumonia and Rocephin was discontinued 11/20/2022 4patient did have a abnormal MRI of the cervical spine as well as lumbar spine with a questionable discitis reported by radiologist however the patient did have normal sed rate and a CRP 2, patient is currently being monitor closely off antibiotic therapy to increase the yield of any culture to be done at the [place] of surgery . We'll obtain blood cultures 2 with a.m. lab 5leukocytosis is more likely steroid related and will be monitored closely Time with Patient: Less than 30
[2022-11-22] MEDS: HEPARIN SOD,PORK IN 0.45% NACL 25,000 UNIT in 0.45% NACL 1 250ML.BAG IV SCH (15:20)
[2022-11-22 17:03] LABS: Glucose,Whole Blood 190 mg/dL (70-110)
[2022-11-22 20:24] LABS: Glucose,Whole Blood 196 mg/dL (70-110)
[2022-11-22] MEDS: ACETAMINOPHEN TAB 325 MG TAB PO PRN (22:57)
[2022-11-23] MEDS: DEXAMETHASONE SOD PHOSPHATE 4 MG/ML 1 ML VIAL IVP SCH ×3 (05:38→16:55)
[2022-11-23] MEDS: LEVOTHYROXINE 50 MCG TAB PO SCH (05:38)
[2022-11-23] MEDS: ACETAMINOPHEN TAB 325 MG TAB PO PRN (05:38)
[2022-11-23 06:17] LABS: Glucose,Whole Blood 197 mg/dL (70-110)
[2022-11-23] MEDS: INSULIN ASPART (NovoLOG) 100 UNIT/ML VIAL SQ SCH ×4 (06:21→20:33)
[2022-11-23 06:49] LABS: Anisocytosis Slight; Hypochromasia Marked; MCH 30.7 pg (25.0-35.0); MCHC 31.3 g/dL (31.0-37.0); MCV 98.1 fL (80.0-100.0); Macrocytosis Slight; Mean Platelet Volume 9.3; Platelet Count 208 k/uL (150-450); RBC 1.94 m/uL (4.30-5.90); RDW 16.7 % (11.5-15.5); WBC 23.7 k/uL (3.8-10.6)
[2022-11-23 07:22] LABS: HGB 5.9 gm/dL (13.0-17.5)
[2022-11-23] MEDS: FLUoxetine HCL 20 MG CAP PO SCH (08:35)
[2022-11-23] MEDS: DILTIAZEM ORAL 30 MG TAB PO SCH ×3 (08:35→20:32)
[2022-11-23] MEDS: MAGNESIUM OXIDE 400 MG TAB PO SCH (08:35)
[2022-11-23] MEDS: CALCIUM CARBONATE 500 MG CHEWABLE PO SCH ×3 (08:35→20:33)
[2022-11-23] MEDS: FUROSEMIDE 10 MG/ML 4 ML VIAL IV SCH (08:35)
[2022-11-23] MEDS: FOLIC ACID 1 MG TAB PO SCH (08:35)
[2022-11-23] MEDS: PANTOPRAZOLE 40 MG/10 ML VIAL IVP SCH ×2 (08:35→20:33)
[2022-11-23] MEDS: SODIUM BICARBONATE TAB 650 MG TAB PO SCH ×3 (08:35→20:40)
[2022-11-23] MEDS: THIAMINE 100 MG TAB PO SCH (08:35)
[2022-11-23] MEDS: CYANOCOBALAMIN 1,000 MCG/ML 1 ML VIAL IM SCH (08:36)
[2022-11-23] MEDS: PYRIDOXINE 50 MG TAB PO SCH ×2 (08:36→20:35)
[2022-11-23] MEDS: ASCORBIC ACID 500 MG TAB PO SCH ×2 (08:36→20:33)
[2022-11-23] MEDS: CHOLECALCIFEROL 25 MCG (1000 IU) TABLET PO SCH (08:36)
[2022-11-23] MEDS: ZINC SULFATE 220 MG CAP PO SCH (08:36)
--- NOTE | 2022-11-23 09:51 | P.PN ---
Subjective Progress Note Date: 11/23/22 Principal diagnosis: This is a 62-year-old male followed up with hyperkalemia, secondary to GI bleed and urine retention, acute kidney injury, from nausea vomiting and diarrhea. He was admitted with nausea vomiting diarrhea and positive for Covid19 on 11/06/2022. Currently he denies any chest pain shortness of breath nausea vomiting but does have diarrhea. Continues to have some loose stools per patient. Is on IV heparin drip for DVT Today's labs are pending, As of yesterday , His potassium remains somewhat high at 5.4 with the non-gap acidosis bicarb of 17 gap of 1 with mild hyponatremia sodium is 132 creatinine has been stable at 1.1-1.13. Urine output is 11 50 mL an intake is 7 and 60 mL Jo catheter has been placed because of post void residual 261 He is known with sleep apnea, gastric bypass, Objective - Vital Signs Vital signs: Vital Signs Temp 98.6 F 11/23/22 08:29 Pulse 80 11/23/22 08:29 Resp 16 11/23/22 08:29 BP 120/73 11/23/22 08:29 Pulse Ox 99 11/23/22 08:29 FiO2 Intake & Output 11/22/22 11/23/22 11/23/22 18:59 06:59 18:59 Intake Total 750.000 10 177.427 Output Total 500 650 Balance 250.000 -640 177.427 Weight 119.5 kg Intake: IV 10 Invasive Line 5 10 Intake, IV Titration 250.000 177.427 Amount Heparin Sod,Pork in 0.45% 250.000 177.427 NaCl 25,000 unit In 0.45 % NaCl 1 250ml.bag @ 10. 254 UNITS/KG/HR 10 mls/hr IV .Q24H [facility] Rx#: [id number] Oral 500 Output: Urine 500 650 Other: Voiding Method Indwelling Catheter Indwelling Catheter # Bowel Movements 2 On examination awake alert oriented but profoundly weak HEENT exam no JVP neck is supple no facial asymmetry Lungs clear to auscultation good air entry bilaterally Heart sounds unremarkable Abdomen soft nontender Extremity exam was 2+ edema Neurologically awake alert oriented but profoundly weak - Labs CBC & Chem 7: 11/23/22 06:19 11/22/22 05:47 Labs: Abnormal Lab Results - Last 24 Hours (Table) 11/22/22 11/22/22 11/22/22 Range/Units 12:05 17:01 20:22 WBC (3.8-10.6) k/uL RBC (4.30-5.90) m/uL Hgb (13.0-17.5) gm/dL Hct (39.0-53.0) % RDW (11.5-15.5) % APTT (22.0-30.0) sec POC Glucose (mg/dL) 168 H 190 H 196 H (70-110) mg/dL Crossmatch 11/23/22 11/23/22 11/23/22 Range/Units 06:16 06:19 06:19 WBC 23.7 H (3.8-10.6) k/uL RBC 1.94 L (4.30-5.90) m/uL Hgb 5.9 L* (13.0-17.5) gm/dL Hct 19.0 L* (39.0-53.0) % RDW 16.7 H (11.5-15.5) % APTT 62.2 H (22.0-30.0) sec POC Glucose (mg/dL) 197 H (70-110) mg/dL Crossmatch 11/23/22 Range/Units 07:44 WBC (3.8-10.6) k/uL RBC (4.30-5.90) m/uL Hgb (13.0-17.5) gm/dL Hct (39.0-53.0) % RDW (11.5-15.5) % APTT (22.0-30.0) sec POC Glucose (mg/dL) (70-110) mg/dL Crossmatch See Detail Assessment and Plan Assessment: Impression 1. Acute kidney injury secondary to outlet obstruction, status post Jo catheter insertion. Labs pending today creatinine has been stable the last few days at 1.1 2. Hyperkalemia secondary to outlet obstruction Jo catheter placed. Potassium is improved. Etiology is obstruction, potassium peak of 6.1 on November 17, to 5.4 yesterday 3. Paroxysmal atrial fibrillation currently in normal sinus rhythm. 4. Profound weakness and right-sided hand weakness 5. DVT left leg with edema r 6. Mild hyponatremia secondary to Lasix. Patient also has hypothyroidism but his last TSH is within normal limits on 50 g of levothyroxine 7. non-gap acidosis secondary to diarrhea. Recommendation 1. Continue Lasix 40 mg IV daily because of the significant edema 2. Continue sodium bicarbonate 1300 mg 3 times a day 2. Watch sodium and potassium
--- NOTE | 2022-11-23 10:32 | P.PN ---
Subjective Progress Note Date: 11/23/22 Principal diagnosis: Bilateral upper extremity weakness; back pain Patient seen and examined this morning. Patient is resting in bed. He has c/o pain in left upper leg. Patient is being prepped to receive 2 unit PRBC for Hgb of 5.9. He has been afebrile, denies nausea/vomiting, or chest pain. Objective - Vital Signs Vital signs: Vital Signs Temp 98.6 F 11/23/22 08:29 Pulse 80 11/23/22 08:29 Resp 16 11/23/22 08:29 BP 120/73 11/23/22 08:29 Pulse Ox 99 11/23/22 08:29 FiO2 Intake & Output 11/22/22 11/23/22 11/23/22 18:59 06:59 18:59 Intake Total 750.000 10 177.427 Output Total 500 650 Balance 250.000 -640 177.427 Weight 119.5 kg Intake: IV 10 Invasive Line 5 10 Intake, IV Titration 250.000 177.427 Amount Heparin Sod,Pork in 0.45% 250.000 177.427 NaCl 25,000 unit In 0.45 % NaCl 1 250ml.bag @ 10. 254 UNITS/KG/HR 10 mls/hr IV .Q24H [facility] Rx#: [id number] Oral 500 Blood Product 0 Rc As-1 Unit 0 [id number] Output: Urine 500 650 Other: Voiding Method Indwelling Catheter Indwelling Catheter # Bowel Movements 2 - Exam Physical Examination General: The patient is awake and alert, in no acute distress Skin: Skin is warm and dry with no obvious rashes or lesions. Hairy patches absent, no dorsal skin dimples, no cafe au lait spots, and no surgical incisions. Eye: Pupils are equal, round and reactive to light, extra-ocular movements are intact; there is normal conjunctiva bilaterally. Neck: The neck is supple, there is no tenderness and ROM intact. Cardiovascular: There is a regular rate and rhythm. No murmur, rub or gallop is appreciated. Left lower 2+ pitting edema present. Respiratory: Lungs are clear to auscultation, respirations are non-labored, breath sounds are equal. Gastrointestinal: Soft, non-distended, non-tender abdomen. Back: There is no tenderness to palpation in the midline, paralumbar, parathoracic or buttocks region. There is no obvious deformity . Musculoskeletal: ROM limited secondary to pain and stiffness from surgical procedure. Muscle strength in all major muscle groups of right upper extremity 3/5, left upper extremity 4/5, bilateral lower extremities 4-/5. Neurological: CN 2-12 intact. There are no obvious motor or sensory deficits. Movement and coordination equal and intact. Sensory exam to light touch intact C5-T1 and intact from L2-S1. Reflexes 2/4 in bilateral upper and lower e xtremities. Negative Hoffmans, babinski, and clonus signs. Psychiatric: Cooperative, appropriate mood & affect, normal judgment. - Labs CBC & Chem 7: 11/23/22 06:19 11/22/22 05:47 Labs: Abnormal Lab Results - Last 24 Hours (Table) 11/22/22 11/22/22 11/22/22 Range/Units 12:05 17:01 20:22 WBC (3.8-10.6) k/uL RBC (4.30-5.90) m/uL Hgb (13.0-17.5) gm/dL Hct (39.0-53.0) % RDW (11.5-15.5) % APTT (22.0-30.0) sec POC Glucose (mg/dL) 168 H 190 H 196 H (70-110) mg/dL Crossmatch 11/23/22 11/23/22 11/23/22 Range/Units 06:16 06:19 06:19 WBC 23.7 H (3.8-10.6) k/uL RBC 1.94 L (4.30-5.90) m/uL Hgb 5.9 L* (13.0-17.5) gm/dL Hct 19.0 L* (39.0-53.0) % RDW 16.7 H (11.5-15.5) % APTT 62.2 H (22.0-30.0) sec POC Glucose (mg/dL) 197 H (70-110) mg/dL Crossmatch 11/23/22 Range/Units 07:44 WBC (3.8-10.6) k/uL RBC (4.30-5.90) m/uL Hgb (13.0-17.5) gm/dL Hct (39.0-53.0) % RDW (11.5-15.5) % APTT (22.0-30.0) sec POC Glucose (mg/dL) (70-110) mg/dL Crossmatch See Detail Assessment and Plan Assessment: Bilateral upper extremity weakness Left knee pain Anemia of unknown origin Plan: Plan will be for OR tomorrow 11/24/22 for neck and for back. 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 Appreciate medical management -Patient receiving 2u PRBCs Pain management - Tylenol DVT prophylaxis - heparin gtt GI prophylaxis - Protonix; Tums PT/OT - weightbearing as tolerated with walker. Appreciate consult
[2022-11-23 12:03] LABS: Glucose,Whole Blood 172 mg/dL (70-110)
[2022-11-23] MEDS: CHOLESTYRAMINE (WITH SUGAR) 4 GM PACKET PO SCH ×2 (12:22→16:55)
[2022-11-23] MEDS: IOPAMIDOL CONTRAST (ORAL USE) VIAL PO PRN ×2 (12:23→13:15)
--- NOTE | 2022-11-23 13:59 | P.PN ---
Subjective Progress Note Date: 11/23/22 Principal diagnosis: Covid 19 Patient is a 62-year-old male who is unvaccinated for COVID-19 patient was brought into the ER for evaluation of weakness no energy mention the patient was not able to get stand up and go to the bathroom patient has been dealing with the diarrhea off and on for couple of weeks, patient was noticed to have a positive covid test, however the patient was not hypoxic and CT abdominal pelvis with few bibasilar patchy groundglass opacity representing atelectasis and no evidence of colitis. On today's evaluation that is 11/23/2022, the patient remains to be afebrile, the patient is breathing comfortably on room air, The patient denies chest pain , the patient did have occasional dry cough, the patient denies chest pain no abdominal pain and diarrhea has resolved denies any worsening neck or back pain Objective - Vital Signs Vital signs: Vital Signs Temp 98.8 F 11/23/22 12:21 Pulse 65 11/23/22 12:21 Resp 16 11/23/22 12:21 BP 113/74 11/23/22 12:21 Pulse Ox 100 11/23/22 12:21 FiO2 Intake & Output 11/22/22 11/23/22 11/23/22 18:59 06:59 18:59 Intake Total 750.000 10 177.427 Output Total 500 650 Balance 250.000 -640 177.427 Weight 119.5 kg Intake: IV 10 Invasive Line 5 10 Intake, IV Titration 250.000 177.427 Amount Heparin Sod,Pork in 0.45% 250.000 177.427 NaCl 25,000 unit In 0.45 % NaCl 1 250ml.bag @ 10. 254 UNITS/KG/HR 10 mls/hr IV .Q24H [facility] Rx#: [id number] Oral 500 Blood Product 0 Rc As-1 Unit 0 [id number] Output: Urine 500 650 Other: Voiding Method Indwelling Catheter Indwelling Catheter # Bowel Movements 2 - Exam GENERAL DESCRIPTION: An elderly male lying in bed in no distress RESPIRATORY SYSTEM: Unlabored breathing , decreased breath sounds at bases HEART: S1 S2 regular rate and rhythm , ABDOMEN: Soft , no tenderness EXTREMITIES: No edema feet - Labs CBC & Chem 7: 11/23/22 06:19 11/22/22 05:47 Labs: Abnormal Lab Results - Last 24 Hours (Table) 11/22/22 11/22/22 11/23/22 Range/Units 17:01 20:22 06:16 WBC (3.8-10.6) k/uL RBC (4.30-5.90) m/uL Hgb (13.0-17.5) gm/dL Hct (39.0-53.0) % RDW (11.5-15.5) % APTT (22.0-30.0) sec POC Glucose (mg/dL) 190 H 196 H 197 H (70-110) mg/dL Crossmatch 11/23/22 11/23/22 11/23/22 Range/Units 06:19 06:19 07:44 WBC 23.7 H (3.8-10.6) k/uL RBC 1.94 L (4.30-5.90) m/uL Hgb 5.9 L* (13.0-17.5) gm/dL Hct 19.0 L* (39.0-53.0) % RDW 16.7 H (11.5-15.5) % APTT 62.2 H (22.0-30.0) sec POC Glucose (mg/dL) (70-110) mg/dL Crossmatch See Detail 11/23/22 Range/Units 12:02 WBC (3.8-10.6) k/uL RBC (4.30-5.90) m/uL Hgb (13.0-17.5) gm/dL Hct (39.0-53.0) % RDW (11.5-15.5) % APTT (22.0-30.0) sec POC Glucose (mg/dL) 172 H (70-110) mg/dL Crossmatch Assessment and Plan (1) COVID-19 Current Visit: Yes Status: Acute Priority: High Code(s): U07.1 - COVID-19 SNOMED Code(s): 497607517 (2) Diarrhea Current Visit: Yes Status: Acute Priority: High Code(s): R19.7 - DIARRHEA, UNSPECIFIED SNOMED Code(s): 62736802 Plan: 1patient present to hospital generalized weakness which is likely multifactorial could be related to his diarrhea has not patient did have significant diarrhea and evidence of prerenal status was low potassium, stool for C. diff is negative stool cultures has been obtained and currently pending, patient to continue Questran and advised to increase his probiotic and yogurt intake 2patient with a low-grade fever, the patient did have elevated pro calcitonin, CT angiogram of the chest was negative for PE however did shows right lower lobe infiltrate suspicious for pneumonia 3-patient fever has resolved, patient has received adequate antibiotic therapy for underlying pneumonia and Rocephin was discontinued 11/20/2022 4patient did have a abnormal MRI of the cervical spine as well as lumbar spine with a questionable discitis reported by radiologist however the patient did have normal sed rate and a CRP 2, patient is currently being monitor closely off antibiotic therapy to increase the yield of any culture to be done at the time of surgery . 5leukocytosis is more likely steroid related and will be monitored closely at the bedside questions concerned were answered in Layman terms Time with Patient: Less than 30
[2022-11-23 15:37] LABS: Anisocytosis Slight; Hypochromasia Marked; MCH 31.7 pg (25.0-35.0); MCHC 32.8 g/dL (31.0-37.0); MCV 96.7 fL (80.0-100.0); Macrocytosis Slight; Mean Platelet Volume 9.2; Platelet Count 196 k/uL (150-450); RBC 1.99 m/uL (4.30-5.90); RDW 16.5 % (11.5-15.5); WBC 25.2 k/uL (3.8-10.6)
[2022-11-23 15:51] LABS: HCT 19.3 % (39.0-53.0); HGB 6.3 gm/dL (13.0-17.5)
--- NOTE | 2022-11-23 16:23 | CT ---
EXAMINATION TYPE: CT abdomen pelvis w con DATE OF EXAM: 11/23/2022 COMPARISON: 11/06/2022 HISTORY: 62-year-old male Abdominal pain, drop in Hgb, pt unable to raise arms TECHNIQUE: Contiguous axial scanning of the abdomen and pelvis following administration of 100 ml Iso evelia 300 IV contrast. Delayed images through the kidneys and coronal/sagittal reconstructions perform ed. CT DLP: 2327.9 mGycm Automated exposure control for dose reduction was used. FINDINGS: Progressive marked generalized anasarca change. There is diffuse motion artifact. Further limitation due to artifact from the patient's arms being down. Moderate bilateral apical mass. Heart upper limit s of normal in size. There is a small to moderate left and trace right pleural effusion noted with so me adjacent atelectasis. Breathing motion at the lower lungs. Small hiatal hernia. 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 Limited detailed assessment of the liver due to motion streak artifact. No obvious lesion is seen. Ch olecystectomy clips. Portal venous system appears patent. No evidence of biliary ductal dilatation. Adrenal glands, spleen, and pancreas show no gross abnormality. Suspect underlying parapelvic cysts within the kidneys measuring up to 2.0 cm. There is no excretion of contrast on the delayed kidney images. Findings suggest acute kidney injury. Previous ventral abdominal wall mesh repair. There appears to be a mid abdominal defect in the mesh c ontaining some fat. No dilated small bowel or free air. Trace pelvic free fluid. Prominent presacral edema. No free air s een. Scattered mild to moderate stool. Redundant sigmoid colon. Colonic inflammatory change seen. Jo catheter decompressing the bladder. There is a intramuscular hematoma with enlargement of the left iliac is muscle up to 17.8 x 9.4 x 6.2 cm. A second retroperitoneal hematoma inferior to the kidney and anterior to the iliacus intramuscul ar hematoma measuring up to 24.4 cm craniocaudal by 6.0 cm AP by 8.9 cm wide. On sagittal image 123, a hematocrit level is suggested. Bones: Previous internal fixation proximal right femur. Moderate degenerative change right greater th an left hips. Diffuse osteopenia.-In the lower thoracic spine. Moderately advanced spondylotic change in the lumbar spine. IMPRESSION: 1. LARGE INTRAMUSCULAR HEMATOMA THICKENING THE LEFT ILIACUS MUSCLE UP TO 17.8 X 9.4 X 6.2 CM. ADDITIO NAL RETROPERITONEAL HEMATOMA INFERIOR TO THE LEFT KIDNEY EXTENDING DOWN INTO THE LEFT SIDE OF THE PEL VIS AND ANTERIOR TO THE ILIACUS MUSCLE SPENDING 24.4 CM AND MEASURING UP TO 8.9 CM WIDE. 2. INTERVAL DEVELOPMENT OF SEVERE GENERALIZED ANASARCA CHANGE. CORRELATE FOR THIRD SPACING/FLUID OVER LOAD WITH SMALL TO MODERATE LEFT PLEURAL EFFUSION. 3. NO EXCRETION OF CONTRAST ON THE DELAYED KIDNEY IMAGES. CORRELATE FOR ACUTE KIDNEY INJURY.
[2022-11-23 16:29] LABS: Glucose,Whole Blood 322 mg/dL (70-110)
[2022-11-23] MEDS: HEPARIN SOD,PORK IN 0.45% NACL 25,000 UNIT in 0.45% NACL 1 250ML.BAG IV SCH (16:51)
[2022-11-23 20:09] LABS: Glucose,Whole Blood 221 mg/dL (70-110)
[2022-11-23] MEDS: MELATONIN 3 MG TABLET PO SCH (20:32)
--- NOTE | 2022-11-23 21:58 | P.PN ---
Subjective Progress Note Date: 11/23/22 the patient states that he has not been generally feeling well overnight. He is complaining of some new abdominal and back discomfort. Hemoglobin was noted to have dropped to 5.9. There is no obvious bleeding or bruising. No fevers or chills. Objective - Vital Signs Vital signs: Vital Signs Temp 98.2 F 11/23/22 18:42 Pulse 74 11/23/22 18:42 Resp 18 11/23/22 18:42 BP 129/85 11/23/22 18:42 Pulse Ox 94 L 11/23/22 18:42 FiO2 Intake & Output 11/23/22 11/23/22 11/24/22 06:59 18:59 06:59 Intake Total 10 487.427 284 Output Total 650 560 Balance -640 -72.573 284 Weight 119.5 kg Intake: IV 10 Invasive Line 5 10 Intake, IV Titration 177.427 Amount Heparin Sod,Pork in 0.45% 177.427 NaCl 25,000 unit In 0.45 % NaCl 1 250ml.bag @ 10. 254 UNITS/KG/HR 10 mls/hr IV .Q24H [facility] Rx#: [id number] Blood Product 310 284 Rc As-1 Unit 310 [id number] Rc Pheresis 2 As3 Unit 0 284 [id number] Output: Urine 650 560 Other: Voiding Method Indwelling Catheter Indwelling Catheter - Constitutional General appearance: Present: no acute distress - EENT Eyes: Present: EOMI ENT: Present: hearing grossly normal, normal oropharynx - Respiratory Respiratory: bilateral: CTA - Cardiovascular Rhythm: regular Heart sounds: normal: S1, S2 - Gastrointestinal General gastrointestinal: Present: normal bowel sounds, soft Localized gastrointestinal: tender: LUQ ( mild, nonspecific, poorly defined, towards flank) - Integumentary Integumentary: Present: normal - Neurologic Neurologic: Present: CNII-XII intact - Musculoskeletal Musculoskeletal: Present: generalized weakness - Psychiatric Psychiatric: Present: A&O x's 3 - Labs CBC & Chem 7: 11/23/22 14:53 11/22/22 05:47 Labs: Abnormal Lab Results - Last 24 Hours (Table) 11/23/22 11/23/22 11/23/22 Range/Units 06:16 06:19 06:19 WBC 23.7 H (3.8-10.6) k/uL RBC 1.94 L (4.30-5.90) m/uL Hgb 5.9 L* (13.0-17.5) gm/dL Hct 19.0 L* (39.0-53.0) % RDW 16.7 H (11.5-15.5) % APTT 62.2 H (22.0-30.0) sec POC Glucose (mg/dL) 197 H (70-110) mg/dL Crossmatch 11/23/22 11/23/22 11/23/22 Range/Units 07:44 12:02 14:53 WBC 25.2 H (3.8-10.6) k/uL RBC 1.99 L (4.30-5.90) m/uL Hgb 6.3 L* (13.0-17.5) gm/dL Hct 19.3 L* (39.0-53.0) % RDW 16.5 H (11.5-15.5) % APTT (22.0-30.0) sec POC Glucose (mg/dL) 172 H (70-110) mg/dL Crossmatch See Detail 11/23/22 11/23/22 Range/Units 16:28 20:07 WBC (3.8-10.6) k/uL RBC (4.30-5.90) m/uL Hgb (13.0-17.5) gm/dL Hct (39.0-53.0) % RDW (11.5-15.5) % APTT (22.0-30.0) sec POC Glucose (mg/dL) 322 H 221 H (70-110) mg/dL Crossmatch Assessment and Plan (1) Anemia Narrative/Plan: the patient's anemia appears to be because of inflammation so far. Therefore he has been continued on IV heparin. Today significant drop in hemoglobin is noted to 5.9. There is no obvious bleeding or bruising, but the patient was complaining of generally not feeling well as well as some nonspecific pain is in the left abdominal area. - Therefore at this time heparin will be held pending investigation for bleeding. Patient will receive [address] of the abdomen and pelvis. If CT is negative, and hemoglobin responds appropriately to 1 unit PRBC on repeat drop, then heparin can be reinstituted. If there is evidence for bleeding based on labs and/or imaging, then heparin will continue to be held. Current Visit: Yes Status: Acute Code(s): D64.9 - ANEMIA, UNSPECIFIED [facility] Code(s): 495801784 (2) Left leg DVT Narrative/Plan: the the patient is felt to be at increased risk for progression, because of the association of his DVT with Covid, and antiphospholipid antibodies. If heparin has to be held, and we will need to repeat Dopplers, then consider at least temporary placement of IVC filter. Current Visit: Yes Status: Acute Priority: High Code(s): I82.402 - ACUTE EMBOLISM AND THOMBOS UNSP DEEP VEINS OF L LOW EXTREM SNOMED Code(s): 202130893
[2022-11-24] MEDS: DEXAMETHASONE SOD PHOSPHATE 4 MG/ML 1 ML VIAL IVP SCH ×5 (00:08→23:25)
[2022-11-24 00:20] LABS: Anisocytosis Slight; HCT 22.9 % (39.0-53.0); HGB 7.6 gm/dL (13.0-17.5); Hypochromasia Slight; MCH 30.6 pg (25.0-35.0); MCHC 33.1 g/dL (31.0-37.0); MCV 92.6 fL (80.0-100.0); Mean Platelet Volume 9.4; Platelet Count 192 k/uL (150-450); RBC 2.48 m/uL (4.30-5.90); RDW 17.3 % (11.5-15.5); WBC 30.8 k/uL (3.8-10.6)
--- NOTE | 2022-11-24 00:39 | P.PN ---
Subjective Progress Note Date: 11/22/22 62-year-old male in the emergency department for diarrhea. She notes diarrhea starting and he asked progressively gotten worse. He reports he stood up from a chair and had an episode of diarrhea, admits he still maintains bowel function. He has not tried anything for his symptoms. He denies nausea, vomiting, abdominal pain, palpitations, fevers. Denies recent travel or recent antibiotic use. He is scheduled to have his first colonoscopy in january of 2023. Patient had an initial lab work is remarkable for WBC is 11.4, hemoglobin 8.7, INR 1.2, sodium 133, potassium 2.6 lactic acid 2.9, calcium 6.3, magnesium 0.8, lipase 60, COVID positive. I interpreted the following; CT abdomen without contrast remarkable for fluid filled colon without focal wall thickening or surrounding inflammatory changes. Patient was given 2 L fluids, potassium, magnesium and calcium during his course of the ED. 11/08/2022 Patient is seen and evaluated on selective care unit; he went into atrial fibrillation with rapid ventricular response he was transferred to the third [facility]. The patient did not have any symptoms of heart racing or fluttering and no dizziness or lightheadedness and no presyncope or syncope and no symptoms of chest pain or chest discomfort or shortness of breath. No prior history of atrial fibrillation. No history of coronary artery disease or congestive heart failure or cardiac arrhythmia and the patient never seen a cytogenetic technologist in the past. Beside that no history of diabetes or hypertension or dyslipidemia. The patient was started initially on Cardizem drip but his pressure did go down and for that reason he was switched into amiodarone IV and subsequently converted to normal sinus mechanism and since then he has been maintaining normal sinus mechanism. Further investigation was performed including CBC and that showed a hemoglobin of 7.7. The patient has no history of bleeding. Beside that he underwent a computed tomography scan of the abdomen and pelvis because of the abdominal discomfort that showed no acute abnormalities. The troponin came in to be slightly elevated likely secondary to tachycardia. The EKG showed sinus rhythm now with no significant ST or T-wave abnormalities. Blood work reveals mild elevation of troponin; Patient has been evaluated by cardiology and recommended to continue with IV fluids, replace electrolytes; IV amiodarone is to be discontinued patient is transition to oral dose daily 11/09/2022 Patient is seen and evaluated in follow-up this morning and continues to feel generalized weakness and continues with loose stools. Per nursing staff when assisting to clean the patient up patient was significantly weak on the right. Patient denied any headache, dizziness, or lightheadedness. Will obtain a CT of the brain and also consult neurology. Recommend PT/OT therapy evaluation for significant weakness. C. diff testing was negative on the stool and will add Imodium and encourage oral intake and advance as tolerated. Patient is maintaining on vitamins and zinc supplements along with subcutaneous heparin with anxiety following closely. Patient denies chest pain or shortness of breath. Afebrile. Recommend a.m. labs as well. 11/10/2022 Patient is seen in follow-up today with multiple medical consultations including cardiology, hematology, infectious disease, and now neurology following. Patient with significant weakness in all upper and lower extremities with neurology undergoing workup recommending aspirin as patient is not on any anticoagulation at this time. Cardiology is following and patient was transitioned back to IV Cardizem although being changed to oral with close monitoring. Magnesium found to be significantly low at 1.2 and will replace per protocol and recommend repeat labs. Hemoglobin is mildly low at 7.4 and undergoing anemia workup with hematology following. Patient with Covid and extreme weakness will need ECF and discharge planning in process. Recommend close monitoring of labs and replace electrolytes per protocol. Patient was started on Imodium as C. diff testing 2 was negative. Patient continues to have loose stools although somewhat improved. Encouraged oral intake and increased activity as tolerated. Recommend PT/OT therapy daily. Patient denies chest pain or shortness of breath. Patient is 97% on room air. Patient will continue on vitamin and zinc supplements with anxiety following closely. Re commend gentle IV hydration. 11/11/2022 Patient is seen and evaluated in follow-up with multiple medical consultations following including infectious disease and neurology. Oncology following underg oing anemia workup. Hemoglobin was found to be 6.5 today and will order 1 unit of PRBC and recommend close monitoring. No active bleeding noted. Patient was started on baby aspirin per neurology and scheduled to undergo MRI of the cervical spine today. Patient continues with significant weakness and will need rehab upon discharge. Patient is maintained on vitamin and zinc supplements and was also being followed by cardiology. Adjustments to medications being done and patient is on oral Cardizem. Will follow-up with repeat labs. Patient is afebrile and denies shortness of breath. Patient clinically appears to be improving. Per nursing staff patient is incontinent of stool in continues to be somewhat loose although less frequent. C. diff testing was negative and stool cultures are negative. Encouraged oral intake. Will discuss with case management about discharge planning to ECF as he will require a Covid hub. 11/12/2022 Patient is seen and evaluated in follow-up today with multiple medical consultations following including infectious disease, cardiology, neurology. Fazal brito's hemoglobin is low again at 6.8 and will give 1 unit. Recommend holding aspirin. Patient did have an elevated d-dimer and CTA was ordered. GI was also consulted for anemia. Patient continues to have incontinence of stool and loose stools and is maintained on Questran and will be given Imodium as needed. Patient continues with generalized weakness and fatigue and also having some lower extremity pain and swelling and have ordered Dopplers of bilateral lower extremities as well. Patient with Covid vitamin and zinc supplements and anticoagulation with subcu heparin. Hematology also following for anemia. Recommend repeat CBC this evening and will transfuse another unit as well. C ardiology following and adjustments to medications being made and patient also being started on low-dose diuretics. Patient is having low-grade temps of 99.3- 99.6 and patient continues to be 95% or above on room air. Blood pressure on the lower side although stable. Stool cultures and C. diff testing have been negative. Patient started on antibiotics per ID recommendations in the form of Zithromax and ceftriaxone. Reviewed iron studies which are low and will give IV iron as well. Electrolytes continue to be low and will replace per protocol. Patient will need ECF once stabilized and discharged 11/13/2022 Patient is seen today with multiple medical consultations following and undergo ing neurological workup and having bilateral upper and lower extremity weakness. Neurology recommends orthopedic consultation which is currently pending. Patient did have some movement in his diarrhea and reports becoming more formed and less frequent. Patient continues to be incontinent of this. Patient being started on antibiotics with anxiety following an also continues to have anemia. GI recommending continuing with hematology workup. Multiple images including MRIs and pending at time. Patient with significant weakness will be going to rehab when stable. A.m. labs are pending. 11/14/2022 This is a pleasant 62 years old male with Covid pneumonia and bacterial pneumonia especially in the right lower lobe. His been covered with Zithromax and ceftriaxone with ID team and pulmonary team on the case. His breathing looks improvement, now much tachypnea or dyspnea. She is complaining of from bilateral upper extremity weakness, MRI ordered by orthopedic team showing spinal stenosis of C5 to C6 with possible osteo-discitis of L3-L4 and orthopedic team R following closely. Also he is on dexamethasone Patient had ultrasound of the legs showing no DVT on the right leg with non-o cclusive thrombosis of the left leg. Hematology team are currently following with and he is patient on subcutaneous heparin. Patient still have diarrhea about 3 times per day yesterday no abdominal pain or vomiting. Patient currently on Zithromax and ceftriaxone, oral Lasix and normal saline 75 mL/h 11/15/2022 Patient Covid pneumonia is improving and he has minimal respiratory symptoms, no dyspnea at rest, patient is not working, no chest pain, occasional coughing, he is saturating well and he continued on treatment with dexamethasone which is helping also has a spine disease as he has C5-C6 stenosis orthopedic team on the case, no surgical intervention Also his continued on Zithromax and ceftriaxone for his pneumonia with ID team on the case. Patient has left leg swelling most likely secondary to nonocclusive DVT however patient could not get anticoagulation because of his severe anemia, hematology input is appreciated, anticoagulation has more risks than benefits. We are going to check occult blood in the stool, hemoglobin today slightly going down 7.3. However anemia workup showing some evidence of anemia of chronic disease patient also with A. fib but no need for intervention for this purpose as her score 0. Medical Assistant Prn. 11/16/2022 Patient still has bilateral upper extremity weakness mainly on the right side, thought secondary to C5-C6 is stenosis with no plan for surgical intervention by orthopedic team. Patient also on dexamethasone for Covid pneumonia and Zithromax ceftriaxone for possible bacterial superinfection especially in the right lower lobe. Her satur ation is acceptable. Blood pressure is stable low-normal. There is no evidence of bleeding, occult blood in the stool is negative. Patient has evidence of left DVT, his anemia although severe as most likely secondary to anemia of chronic disease, repeat anemia workup was requested, I discussed the case with hematology team, possibly we will start him on anticoagulation once workup is finished. No need for anticoagulation or aspirin for A. fib per Medical Assistant Prn. No need for aspirin also per neurologist. 11/17/2022 Patient awake sitting up in bed looks comfortable. His breathing is improved while continue current antibiotic Patient is still have weakness more the right arm and left arm, Orthopedic team on the case and they recommended MRI of the whole spine which is pending. Also I discussed with the bedside nurse disorder hard collar. He still on heparin drip for his left leg DVT, benefits more than risk. Monitor hemoglobin 11/18/2022 Patient sitting up in bed does not look in distress, he does not have new complaint His been followed by orthopedic team and MRI of the spine is pending for his right upper extremity weakness more on the right side. Other than that his her pneumonia significantly improved and currently he is on ceftriaxone. Also he is on dexamethasone for his Covid infection. Patient is tolerated heparin drip. For his left leg DVT with hematology team recommendation. Hemoglobin today actually improvement 7.9. Patient would benefit from EGD/colonoscopy as an outpatient. Normal saline was discontinued. 11/19/2022 Patient sitting up in bed denies any complaint. He continue on ceftriaxone for right lower lobe pneumonia and dexamethasone for Covid pneumonia. Also he is on heparin drip for left leg DVT, which is mildly swollen compared to the right side. Patient with persistent hyperkalemia with studio coordinator consulted, patient is started on IV Lasix, and sodium bicarbonate and check renal ultrasound. Orthopedic team following, MRI of the spine pending. 11/20/2022 Patient is currently resting in the bed. Awake alert and oriented 3. Still having right upper extremity weakness. Patient is afebrile otherwise. No complains of chest pain or shortness of breath. Currently on room air. Laboratory data showed WBC 21.8 mg on 0.0 platelets 262 Sodium 133 potassium 5.7, chloride 107 bicarb is 14 BUN 26 and creatinine 1.04 and calcium 7.2 Patient is being continued on heparin drip. On Cardizem by mouth. MRI of the thoracic spine and lumbar spine to be done today. 11/21/2022 Patient is resting in bed. Awake alert and oriented 3. No complaints of chest pain or shortness of breath. Currently on room air. No nausea vomiting or abdominal pain or diarrhea. MRI cervical spine showed possible discitis. Orthopedic surgery is on board. Patient still having the right upper extremity weakness. Otherwise is planning for OR on Wednesday. Laboratory data showed WBC 22.6-year-old 7.5 platelets 266. CRP level is less than 0.5. Patient is being continued on heparin drip for lower extremity DVT. Orthopedic surgery, ID and nephrology is on board. 11/22/2022 Patient is resting in bed. Awake alert and oriented. No complaints of chest pain or shortness of breath. Patient states that he is still having right upper extremity weakness. No complaints of nausea vomiting abdominal pain or diarrhea. Tolerating oral diet. Patient is being continued on heparin drip and is scheduled for cervical surgery on Wednesday. Laboratory data showed WBC 22.9 hemoglobin 7.0 and platelets 254 sodium 132 potassium 5.4 chloride 114 bicarb is 17 BUN 30 and creatinine 1.13 and calcium 7.2. Current medications reviewed. Objective - Vital Signs Vital signs: Vital Signs Temp 98.7 F 11/22/22 16:58 Pulse 63 11/22/22 16:58 Resp 16 11/22/22 16:58 BP 122/77 11/22/22 16:58 Pulse Ox 98 11/22/22 16:58 FiO2 Intake & Output 11/22/22 11/22/22 11/23/22 06:59 18:59 06:59 Intake Total 750.000 Output Total 950 500 Balance -950 250.000 Weight 120 kg Intake: Intake, IV Titration 250.000 Amount Heparin Sod,Pork in 0.45% 250.000 NaCl 25,000 unit In 0.45 % NaCl 1 250ml.bag @ 10. 254 UNITS/KG/HR 10 mls/hr IV .Q24H [facility] Rx#: [id number] Oral 500 Output: Urine 950 500 Other: Voiding Method Indwelling Catheter Indwelling Catheter # Bowel Movements 1 2 - Exam - Exam -GENERAL: The patient is alert and oriented x3, not in any acute distress. Well developed, well nourished. Generally weak -HEENT: Pupils are round and equally reacting to light. EOMI. No scleral icterus. No conjunctival pallor. Normocephalic, atraumatic. No pharyngeal erythema. No thyromegaly. Dry mucous membranes, mild CARDIOVASCULAR: S1 and S2 present. No murmurs, rubs, or gallops. PULMONARY: Chest is clear to auscultation, no wheezing or crackles. ABDOMEN: Soft, nontender, nondistended, normoactive bowel sounds. No palpable organomegaly. MUSCULOSKELETAL: No joint swelling or deformity. -EXTREMITIES: No cyanosis, clubbing, or pedal edema. left leg swelling NEUROLOGICAL: Gross neurological examination did not reveal any focal deficits. SKIN: No rashes. no petechiae. - Labs CBC & Chem 7: 11/23/22 23:38 11/22/22 05:47 Labs: Abnormal Lab Results - Last 24 Hours (Table) 11/22/22 11/22/22 11/22/22 Range/Units 05:47 05:47 05:47 WBC 22.9 H (3.8-10.6) k/uL RBC 2.36 L (4.30-5.90) m/uL Hgb 7.0 L (13.0-17.5) gm/dL Hct 22.8 L (39.0-53.0) % MCHC 30.8 L (31.0-37.0) g/dL RDW 15.9 H (11.5-15.5) % APTT 57.2 H (22.0-30.0) sec Sodium 132 L (137-145) mmol/L Potassium 5.4 H (3.5-5.1) mmol/L Chloride 114 H (98-107) mmol/L Carbon Dioxide 17 L (22-30) mmol/L BUN 30 H (9-20) mg/dL Glucose 129 H (74-99) mg/dL POC Glucose (mg/dL) (70-110) mg/dL Calcium 7.2 L (8.4-10.2) mg/dL 11/22/22 11/22/22 11/22/22 Range/Units 06:25 12:05 17:01 WBC (3.8-10.6) k/uL RBC (4.30-5.90) m/uL Hgb (13.0-17.5) gm/dL Hct (39.0-53.0) % MCHC (31.0-37.0) g/dL RDW (11.5-15.5) % APTT (22.0-30.0) sec Sodium (137-145) mmol/L Potassium (3.5-5.1) mmol/L Chloride (98-107) mmol/L Carbon Dioxide (22-30) mmol/L BUN (9-20) mg/dL Glucose (74-99) mg/dL POC Glucose (mg/dL) 161 H 168 H 190 H (70-110) mg/dL Calcium (8.4-10.2) mg/dL 11/22/22 Range/Units 20:22 WBC (3.8-10.6) k/uL RBC (4.30-5.90) m/uL Hgb (13.0-17.5) gm/dL Hct (39.0-53.0) % MCHC (31.0-37.0) g/dL RDW (11.5-15.5) % APTT (22.0-30.0) sec Sodium (137-145) mmol/L Potassium (3.5-5.1) mmol/L Chloride (98-107) mmol/L Carbon Dioxide (22-30) mmol/L BUN (9-20) mg/dL Glucose (74-99) mg/dL POC Glucose (mg/dL) 196 H (70-110) mg/dL Calcium (8.4-10.2) mg/dL Assessment and Plan Assessment: Bilateral Pneumonia with superimposed gram-negative bacterial infection is suspected mainly in the right lower lobe. Completed antibiotic course. Acute hypoxic respiratory failure. Titrate down to room air.. Sepsis secondary to above Possible discitis as per MRI cervical spine. Hyperkalemia due to urinary retention and acute kidney injury. Improving now. Anemia with vitamin B12 deficiency and currently on IM B12 replacement therapy Elevated troponin, most likely type II. No chest pain, normal LV function Low vitamin B12 and B6 Nonocclusive thrombosis of the left leg Paroxysmal atrial fibrillation no anticoagulation with score of 0 per Medical Assistant Prn Plan: Patient completed antibiotic course. Ceftriaxone has been discontinued. Continue with dexamethasone per orthopedic team Continue with vitamin B12 replacement therapy Continue with IV Lasix 40 mg daily and sodium bicarb MRI cervical spine showed possible discitis. Orthopedic surgery is planning for or on Wednesday. Continue with heparin drip. Due to DVT left lower extremity. Several consultants on the case including neurologist, wood drill operator, cytogenetic technologist, GI (signed off, no GI coverage this week), infectious disease team and orthopedic team DVT prophylaxis: On heparin drip currently. GI Prophylaxis: Ppi PT/OT: Pending Prognosis is guarded Time with Patient: Greater than 30
--- NOTE | 2022-11-24 00:45 | P.PN ---
Subjective Progress Note Date: 11/23/22 62-year-old male in the emergency department for diarrhea. She notes diarrhea starting and he asked progressively gotten worse. He reports he stood up from a chair and had an episode of diarrhea, admits he still maintains bowel function. He has not tried anything for his symptoms. He denies nausea, vomiting, abdominal pain, palpitations, fevers. Denies recent travel or recent antibiotic use. He is scheduled to have his first colonoscopy in january of 2023. Patient had an initial lab work is remarkable for WBC is 11.4, hemoglobin 8.7, INR 1.2, sodium 133, potassium 2.6 lactic acid 2.9, calcium 6.3, magnesium 0.8, lipase 60, COVID positive. I interpreted the following; CT abdomen without contrast remarkable for fluid filled colon without focal wall thickening or surrounding inflammatory changes. Patient was given 2 L fluids, potassium, magnesium and calcium during his course of the ED. 11/08/2022 Patient is seen and evaluated on selective care unit; he went into atrial fibrillation with rapid ventricular response he was transferred to the third [facility]. The patient did not have any symptoms of heart racing or fluttering and no dizziness or lightheadedness and no presyncope or syncope and no symptoms of chest pain or chest discomfort or shortness of breath. No prior history of atrial fibrillation. No history of coronary artery disease or congestive heart failure or cardiac arrhythmia and the patient never seen a neurosurgery research director in the past. Beside that no history of diabetes or hypertension or dyslipidemia. The patient was started initially on Cardizem drip but his pressure did go down and for that reason he was switched into amiodarone IV and subsequently converted to normal sinus mechanism and since then he has been maintaining normal sinus mechanism. Further investigation was performed including CBC and that showed a hemoglobin of 7.7. The patient has no history of bleeding. Beside that he underwent a computed tomography scan of the abdomen and pelvis because of the abdominal discomfort that showed no acute abnormalities. The troponin came in to be slightly elevated likely secondary to tachycardia. The EKG showed sinus rhythm now with no significant ST or T-wave abnormalities. Blood work reveals mild elevation of troponin; Patient has been evaluated by cardiology and recommended to continue with IV fluids, replace electrolytes; IV amiodarone is to be discontinued patient is transition to oral dose daily 11/09/2022 Patient is seen and evaluated in follow-up this morning and continues to feel generalized weakness and continues with loose stools. Per nursing staff when assisting to clean the patient up patient was significantly weak on the right. Patient denied any headache, dizziness, or lightheadedness. Will obtain a CT of the brain and also consult neurology. Recommend PT/OT therapy evaluation for significant weakness. C. diff testing was negative on the stool and will add Imodium and encourage oral intake and advance as tolerated. Patient is maintaining on vitamins and zinc supplements along with subcutaneous heparin with anxiety following closely. Patient denies chest pain or shortness of breath. Afebrile. Recommend a.m. labs as well. 11/10/2022 Patient is seen in follow-up today with multiple medical consultations including cardiology, hematology, infectious disease, and now neurology following. Patient with significant weakness in all upper and lower extremities with neurology undergoing workup recommending aspirin as patient is not on any anticoagulation at this time. Cardiology is following and patient was transitioned back to IV Cardizem although being changed to oral with close monitoring. Magnesium found to be significantly low at 1.2 and will replace per protocol and recommend repeat labs. Hemoglobin is mildly low at 7.4 and undergoing anemia workup with hematology following. Patient with Covid and extreme weakness will need ECF and discharge planning in process. Recommend close monitoring of labs and replace electrolytes per protocol. Patient was started on Imodium as C. diff testing 2 was negative. Patient continues to have loose stools although somewhat improved. Encouraged oral intake and increased activity as tolerated. Recommend PT/OT therapy daily. Patient denies chest pain or shortness of breath. Patient is 97% on room air. Patient will continue on vitamin and zinc supplements with anxiety following closely. Re commend gentle IV hydration. 11/11/2022 Patient is seen and evaluated in follow-up with multiple medical consultations following including infectious disease and neurology. Oncology following underg oing anemia workup. Hemoglobin was found to be 6.5 today and will order 1 unit of PRBC and recommend close monitoring. No active bleeding noted. Patient was started on baby aspirin per neurology and scheduled to undergo MRI of the cervical spine today. Patient continues with significant weakness and will need rehab upon discharge. Patient is maintained on vitamin and zinc supplements and was also being followed by cardiology. Adjustments to medications being done and patient is on oral Cardizem. Will follow-up with repeat labs. Patient is afebrile and denies shortness of breath. Patient clinically appears to be improving. Per nursing staff patient is incontinent of stool in continues to be somewhat loose although less frequent. C. diff testing was negative and stool cultures are negative. Encouraged oral intake. Will discuss with case management about discharge planning to ECF as he will require a Covid hub. 11/12/2022 Patient is seen and evaluated in follow-up today with multiple medical consultations following including infectious disease, cardiology, neurology. Fazal brito's hemoglobin is low again at 6.8 and will give 1 unit. Recommend holding aspirin. Patient did have an elevated d-dimer and CTA was ordered. GI was also consulted for anemia. Patient continues to have incontinence of stool and loose stools and is maintained on Questran and will be given Imodium as needed. Patient continues with generalized weakness and fatigue and also having some lower extremity pain and swelling and have ordered Dopplers of bilateral lower extremities as well. Patient with Covid vitamin and zinc supplements and anticoagulation with subcu heparin. Hematology also following for anemia. Recommend repeat CBC this evening and will transfuse another unit as well. C ardiology following and adjustments to medications being made and patient also being started on low-dose diuretics. Patient is having low-grade temps of 99.3- 99.6 and patient continues to be 95% or above on room air. Blood pressure on the lower side although stable. Stool cultures and C. diff testing have been negative. Patient started on antibiotics per ID recommendations in the form of Zithromax and ceftriaxone. Reviewed iron studies which are low and will give IV iron as well. Electrolytes continue to be low and will replace per protocol. Patient will need ECF once stabilized and discharged 11/13/2022 Patient is seen today with multiple medical consultations following and undergo ing neurological workup and having bilateral upper and lower extremity weakness. Neurology recommends orthopedic consultation which is currently pending. Patient did have some movement in his diarrhea and reports becoming more formed and less frequent. Patient continues to be incontinent of this. Patient being started on antibiotics with anxiety following an also continues to have anemia. GI recommending continuing with hematology workup. Multiple images including MRIs and pending at time. Patient with significant weakness will be going to rehab when stable. A.m. labs are pending. 11/14/2022 This is a pleasant 62 years old male with Covid pneumonia and bacterial pneumonia especially in the right lower lobe. His been covered with Zithromax and ceftriaxone with ID team and pulmonary team on the case. His breathing looks improvement, now much tachypnea or dyspnea. She is complaining of from bilateral upper extremity weakness, MRI ordered by orthopedic team showing spinal stenosis of C5 to C6 with possible osteo-discitis of L3-L4 and orthopedic team R following closely. Also he is on dexamethasone Patient had ultrasound of the legs showing no DVT on the right leg with non-o cclusive thrombosis of the left leg. Hematology team are currently following with and he is patient on subcutaneous heparin. Patient still have diarrhea about 3 times per day yesterday no abdominal pain or vomiting. Patient currently on Zithromax and ceftriaxone, oral Lasix and normal saline 75 mL/h 11/15/2022 Patient Covid pneumonia is improving and he has minimal respiratory symptoms, no dyspnea at rest, patient is not working, no chest pain, occasional coughing, he is saturating well and he continued on treatment with dexamethasone which is helping also has a spine disease as he has C5-C6 stenosis orthopedic team on the case, no surgical intervention Also his continued on Zithromax and ceftriaxone for his pneumonia with ID team on the case. Patient has left leg swelling most likely secondary to nonocclusive DVT however patient could not get anticoagulation because of his severe anemia, hematology input is appreciated, anticoagulation has more risks than benefits. We are going to check occult blood in the stool, hemoglobin today slightly going down 7.3. However anemia workup showing some evidence of anemia of chronic disease patient also with A. fib but no need for intervention for this purpose as her score 0. Comber Setter. 11/16/2022 Patient still has bilateral upper extremity weakness mainly on the right side, thought secondary to C5-C6 is stenosis with no plan for surgical intervention by orthopedic team. Patient also on dexamethasone for Covid pneumonia and Zithromax ceftriaxone for possible bacterial superinfection especially in the right lower lobe. Her satur ation is acceptable. Blood pressure is stable low-normal. There is no evidence of bleeding, occult blood in the stool is negative. Patient has evidence of left DVT, his anemia although severe as most likely secondary to anemia of chronic disease, repeat anemia workup was requested, I discussed the case with hematology team, possibly we will start him on anticoagulation once workup is finished. No need for anticoagulation or aspirin for A. fib per Comber Setter. No need for aspirin also per neurologist. 11/17/2022 Patient awake sitting up in bed looks comfortable. His breathing is improved while continue current antibiotic Patient is still have weakness more the right arm and left arm, Orthopedic team on the case and they recommended MRI of the whole spine which is pending. Also I discussed with the bedside nurse disorder hard collar. He still on heparin drip for his left leg DVT, benefits more than risk. Monitor hemoglobin 11/18/2022 Patient sitting up in bed does not look in distress, he does not have new complaint His been followed by orthopedic team and MRI of the spine is pending for his right upper extremity weakness more on the right side. Other than that his her pneumonia significantly improved and currently he is on ceftriaxone. Also he is on dexamethasone for his Covid infection. Patient is tolerated heparin drip. For his left leg DVT with hematology team recommendation. Hemoglobin today actually improvement 7.9. Patient would benefit from EGD/colonoscopy as an outpatient. Normal saline was discontinued. 11/19/2022 Patient sitting up in bed denies any complaint. He continue on ceftriaxone for right lower lobe pneumonia and dexamethasone for Covid pneumonia. Also he is on heparin drip for left leg DVT, which is mildly swollen compared to the right side. Patient with persistent hyperkalemia with elementary education tutor consulted, patient is started on IV Lasix, and sodium bicarbonate and check renal ultrasound. Orthopedic team following, MRI of the spine pending. 11/20/2022 Patient is currently resting in the bed. Awake alert and oriented 3. Still having right upper extremity weakness. Patient is afebrile otherwise. No complains of chest pain or shortness of breath. Currently on room air. Laboratory data showed WBC 21.8 mg on 0.0 platelets 262 Sodium 133 potassium 5.7, chloride 107 bicarb is 14 BUN 26 and creatinine 1.04 and calcium 7.2 Patient is being continued on heparin drip. On Cardizem by mouth. MRI of the thoracic spine and lumbar spine to be done today. 11/21/2022 Patient is resting in bed. Awake alert and oriented 3. No complaints of chest pain or shortness of breath. Currently on room air. No nausea vomiting or abdominal pain or diarrhea. MRI cervical spine showed possible discitis. Orthopedic surgery is on board. Patient still having the right upper extremity weakness. Otherwise is planning for OR on Wednesday. Laboratory data showed WBC 22.6-year-old 7.5 platelets 266. CRP level is less than 0.5. Patient is being continued on heparin drip for lower extremity DVT. Orthopedic surgery, ID and nephrology is on board. 11/22/2022 Patient is resting in bed. Awake alert and oriented. No complaints of chest pain or shortness of breath. Patient states that he is still having right upper extremity weakness. No complaints of nausea vomiting abdominal pain or diarrhea. Tolerating oral diet. Patient is being continued on heparin drip and is scheduled for cervical surgery on Wednesday. Laboratory data showed WBC 22.9 hemoglobin 7.0 and platelets 254 sodium 132 potassium 5.4 chloride 114 bicarb is 17 BUN 30 and creatinine 1.13 and calcium 7.2. 11/23/2022 Patient is lying in the bed. Awake alert and oriented x3. No complaints of chest pain or shortness of breath. Right upper extremity weakness remains the s estuardo. Patient otherwise reported to have abdominal discomfort and back discomfort. Hemoglobin dropped down to 5.9 this morning. Drainage of PRBC transfusion was ordered. CT of the abdomen pelvis was ordered without retroperitoneal bleed. Otherwise blood pressures 129/85 pulse is 74 respirate 18 pulse ox 94% on room air. Will hold aspirin if there is any signs of retroperitoneal bleed. Patient is otherwise scheduled for cervical surgery tomorrow. Current medications reviewed. Objective - Vital Signs Vital signs: Vital Signs Temp 98.1 F 11/23/22 21:49 Pulse 74 11/23/22 21:49 Resp 18 11/23/22 21:49 BP 131/94 11/23/22 21:49 Pulse Ox 97 11/23/22 21:49 FiO2 Intake & Output 11/23/22 11/23/22 11/24/22 06:59 18:59 06:59 Intake Total 10 487.427 284 Output Total 650 560 Balance -640 -72.573 284 Weight 119.5 kg Intake: IV 10 Invasive Line 5 10 Intake, IV Titration 177.427 Amount Heparin Sod,Pork in 0.45% 177.427 NaCl 25,000 unit In 0.45 % NaCl 1 250ml.bag @ 10. 254 UNITS/KG/HR 10 mls/hr IV .Q24H [facility] Rx#: [id number] Blood Product 310 284 Rc As-1 Unit 310 [id number] Rc Pheresis 2 As3 Unit 0 284 [id number] Output: Urine 650 560 Other: Voiding Method Indwelling Catheter Indwelling Catheter Indwelling Catheter - Exam - Exam -GENERAL: The patient is alert and oriented x3, not in any acute distress. Well developed, well nourished. Generally weak -HEENT: Pupils are round and equally reacting to light. EOMI. No scleral icterus. No conjunctival pallor. Normocephalic, atraumatic. No pharyngeal erythema. No thyromegaly. Dry mucous membranes, mild CARDIOVASCULAR: S1 and S2 present. No murmurs, rubs, or gallops. PULMONARY: Chest is clear to auscultation, no wheezing or crackles. ABDOMEN: Soft, nontender, nondistended, normoactive bowel sounds. No palpable organomegaly. MUSCULOSKELETAL: No joint swelling or deformity. -EXTREMITIES: No cyanosis, clubbing, or pedal edema. left leg swelling NEUROLOGICAL: Gross neurological examination did not reveal any focal deficits. SKIN: No rashes. no petechiae. - Labs CBC & Chem 7: 11/23/22 23:38 11/22/22 05:47 Labs: Abnormal Lab Results - Last 24 Hours (Table) 11/23/22 11/23/22 11/23/22 Range/Units 06:16 06:19 06:19 WBC 23.7 H (3.8-10.6) k/uL RBC 1.94 L (4.30-5.90) m/uL Hgb 5.9 L* (13.0-17.5) gm/dL Hct 19.0 L* (39.0-53.0) % RDW 16.7 H (11.5-15.5) % APTT 62.2 H (22.0-30.0) sec POC Glucose (mg/dL) 197 H (70-110) mg/dL Crossmatch 11/23/22 11/23/22 11/23/22 Range/Units 07:44 12:02 14:53 WBC 25.2 H (3.8-10.6) k/uL RBC 1.99 L (4.30-5.90) m/uL Hgb 6.3 L* (13.0-17.5) gm/dL Hct 19.3 L* (39.0-53.0) % RDW 16.5 H (11.5-15.5) % APTT (22.0-30.0) sec POC Glucose (mg/dL) 172 H (70-110) mg/dL Crossmatch See Detail 11/23/22 11/23/22 Range/Units 16:28 20:07 WBC (3.8-10.6) k/uL RBC (4.30-5.90) m/uL Hgb (13.0-17.5) gm/dL Hct (39.0-53.0) % RDW (11.5-15.5) % APTT (22.0-30.0) sec POC Glucose (mg/dL) 322 H 221 H (70-110) mg/dL Crossmatch Assessment and Plan Assessment: possible acute blood loss. hb 5.9 Rule out retroperitoneal bleed. Denies any hematemesis or melena. 2 units of PRBC was ordered. Bilateral Pneumonia with superimposed gram-negative bacterial infection is s uspected mainly in the right lower lobe. Completed antibiotic course. Acute hypoxic respiratory failure. Titrate down to room air.. Sepsis secondary to above Possible discitis as per MRI cervical spine. Hyperkalemia due to urinary retention and acute kidney injury. Improving now. Anemia with vitamin B12 deficiency and currently on IM B12 replacement therapy Elevated troponin, most likely type II. No chest pain, normal LV function Low vitamin B12 and B6 Nonocclusive thrombosis of the left leg Paroxysmal atrial fibrillation no anticoagulation with score of 0 per Comber Setter Plan: 2 units of PRBC was ordered. Follow-up CT of the abdomen pelvis and consider stopping heparin drip if there is retroperitoneal bleed. Patient completed antibiotic course. Ceftriaxone has been discontinued. Continue with dexamethasone per orthopedic team Continue with vitamin B12 replacement therapy Continue with IV Lasix 40 mg daily and sodium bicarb MRI cervical spine showed possible discitis. Orthopedic surgery is planning for or on Wednesday. Patient is on anticoagulation due to left lower extremity DVT. On heparin drip Several consultants on the case including neurologist, spectral scientist, cardio logist, GI (signed off, no GI coverage this week), infectious disease team and orthopedic team DVT prophylaxis: On heparin drip currently. GI Prophylaxis: Ppi PT/OT: Pending Prognosis is guarded Time with Patient: Greater than 30
[2022-11-24] MEDS: LEVOTHYROXINE 50 MCG TAB PO SCH (05:37)
[2022-11-24 06:05] LABS: Glucose,Whole Blood 132 mg/dL (70-110)
[2022-11-24] MEDS: INSULIN ASPART (NovoLOG) 100 UNIT/ML VIAL SQ SCH ×4 (06:10→20:31)
[2022-11-24 07:08] LABS: Anisocytosis Slight; HCT 22.4 % (39.0-53.0); HGB 7.1 gm/dL (13.0-17.5); Hypochromasia Marked; MCH 30.6 pg (25.0-35.0); MCHC 31.5 g/dL (31.0-37.0); MCV 96.9 fL (80.0-100.0); Macrocytosis Slight; Mean Platelet Volume 10.1; Platelet Count 159 k/uL (150-450); RBC 2.32 m/uL (4.30-5.90); RDW 17.8 % (11.5-15.5); WBC 25.6 k/uL (3.8-10.6)
[2022-11-24 07:25] LABS: Potassium 5.7 mmol/L (3.5-5.1)
--- NOTE | 2022-11-24 07:58 | US ---
EXAMINATION TYPE: US venous doppler duplex LE LT DATE OF EXAM: 11/24/2022 7:23 AM COMPARISON: US 12 days ago CLINICAL HISTORY: DVT f/u. Known DVT left leg, F/U SIDE PERFORMED: Left TECHNIQUE: The lower extremity deep venous system is examined utilizing real time linear array sonog antione with graded compression, doppler sonography and color-flow sonography. VESSELS IMAGED: Common Femoral Vein Deep Femoral Vein Greater Saphenous Vein * Femoral Vein Popliteal Vein Small Saphenous Vein * Proximal Calf Veins (* superficial vessels) Grayscale, color doppler, spectral doppler imaging performed of the deep veins of the lower extremiti es. There is normal flow, compressibility, vascular waveforms within the remaining visualized veins. Left Leg: Redemonstration of thrombus seen within the posterior calf branch with internal echoes and not compressible. Minimal questionable flow. DVT proximal calf vein, similar findings to prior US/ S VT beginning at mid thigh left GSV Subcutaneous edema identified. IMPRESSION: Similar deep venous thrombosis within the proximal left calf vein from most recent examination of .
[2022-11-24] MEDS ORDERED: DEXAMETHASONE SOD PHOSPHATE 4 MG/ML 1 ML VIAL IV ONE (09:48)
[2022-11-24] MEDS ORDERED: HYDROmorphone 0.5 MG/0.5 ML SYRINGE IVP PRN (09:48)
[2022-11-24] MEDS ORDERED: LIDOCAINE 1% (10MG/ML) FOR IV START INTRADERMA PRN (09:48)
[2022-11-24] MEDS ORDERED: ONDANSETRON 4 MG/2 ML VIAL IVP ONE (09:48)
[2022-11-24] MEDS ORDERED: LACTATED RINGERS 1,000 ML IV SCH (09:48)
[2022-11-24] MEDS: CHOLESTYRAMINE (WITH SUGAR) 4 GM PACKET PO SCH ×2 (09:51→17:31)
[2022-11-24] MEDS: ZINC SULFATE 220 MG CAP PO SCH (09:52)
[2022-11-24] MEDS: PANTOPRAZOLE 40 MG/10 ML VIAL IVP SCH ×2 (09:52→20:30)
[2022-11-24] MEDS: THIAMINE 100 MG TAB PO SCH (09:52)
[2022-11-24] MEDS: FOLIC ACID 1 MG TAB PO SCH (09:52)
[2022-11-24] MEDS: CALCIUM CARBONATE 500 MG CHEWABLE PO SCH ×3 (09:52→20:30)
[2022-11-24] MEDS: ASCORBIC ACID 500 MG TAB PO SCH ×2 (09:52→20:31)
[2022-11-24] MEDS: CHOLECALCIFEROL 25 MCG (1000 IU) TABLET PO SCH (09:52)
[2022-11-24] MEDS: DILTIAZEM ORAL 30 MG TAB PO SCH ×3 (09:53→20:30)
[2022-11-24] MEDS: FUROSEMIDE 10 MG/ML 4 ML VIAL IV SCH (09:53)
[2022-11-24] MEDS: SODIUM BICARBONATE TAB 650 MG TAB PO SCH ×3 (09:53→20:30)
[2022-11-24] MEDS: CYANOCOBALAMIN 1,000 MCG/ML 1 ML VIAL IM SCH (09:53)
[2022-11-24] MEDS: MAGNESIUM OXIDE 400 MG TAB PO SCH (09:53)
[2022-11-24] MEDS: FLUoxetine HCL 20 MG CAP PO SCH (09:53)
[2022-11-24] MEDS: PYRIDOXINE 50 MG TAB PO SCH ×2 (09:54→20:31)
--- NOTE | 2022-11-24 10:10 | P.PN ---
Subjective Progress Note Date: 11/24/22 Principal diagnosis: Bilateral upper extremity weakness; back pain Patient seen and examined this morning. Patient is resting in bed. He has c/o pain in left upper leg. He did receive 2 units of RBCs, hemoglobin currently 7.1. CT of the abdomen and pelvis result with a large retroperitoneal hematoma. Discussed with patient that his surgery will be placed on hold at this time until he is medically stable. Patient does verbalize understanding. He has been afebrile, denies nausea/vomiting, or chest pain. Objective - Vital Signs Vital signs: Vital Signs Temp 98.6 F 11/24/22 04:00 Pulse 61 11/24/22 04:00 Resp 16 11/24/22 04:00 BP 132/76 11/24/22 04:00 Pulse Ox 99 11/24/22 04:00 FiO2 Intake & Output 11/23/22 11/24/22 11/24/22 18:59 06:59 18:59 Intake Total 487.427 284 Output Total 560 325 Balance -72.573 -41 Weight 119 kg Intake: Intake, IV Titration 177.427 Amount Heparin Sod,Pork in 0.45% 177.427 NaCl 25,000 unit In 0.45 % NaCl 1 250ml.bag @ 10. 254 UNITS/KG/HR 10 mls/hr IV .Q24H [facility] Rx#: [id number] Blood Product 310 284 Rc As-1 Unit 310 [id number] Rc Pheresis 2 As3 Unit 0 284 [id number] Output: Urine 560 325 Other: Voiding Method Indwelling Catheter Indwelling Catheter # Bowel Movements 1 - Exam Physical Examination General: The patient is awake and alert, in no acute distress Skin: Skin is warm and dry with no obvious rashes or lesions. Hairy patches absent, no dorsal skin dimples, no cafe au lait spots, and no surgical incisions. Eye: Pupils are equal, round and reactive to light, extra-ocular movements are intact; there is normal conjunctiva bilaterally. Neck: The neck is supple, there is no tenderness and ROM intact. Cardiovascular: There is a regular rate and rhythm. No murmur, rub or gallop is appreciated. Left lower 2+ pitting edema present. Respiratory: Lungs are clear to auscultation, respirations are non-labored, breath sounds are equal. Gastrointestinal: Soft, non-distended, non-tender abdomen. Back: There is no tenderness to palpation in the midline, paralumbar, parathoracic or buttocks region. There is no obvious deformity . Musculoskeletal: ROM limited secondary to pain and stiffness from surgical procedure. Muscle strength in all major muscle groups of right upper extremity 3/5, left upper extremity 4/5, bilateral lower extremities 4-/5. Neurological: CN 2-12 intact. There are no obvious motor or sensory deficits. Movement and coordination equal and intact. Sensory exam to light touch intact C5-T1 and intact from L2-S1. Reflexes 2/4 in bilateral upper and lower ex tremities. Negative Hoffmans, babinski, and clonus signs. Psychiatric: Cooperative, appropriate mood & affect, normal judgment. - Labs CBC & Chem 7: 11/24/22 06:27 11/24/22 06:27 Labs: Abnormal Lab Results - Last 24 Hours (Table) 11/23/22 11/23/22 11/23/22 Range/Units 07:44 12:02 14:53 WBC 25.2 H (3.8-10.6) k/uL RBC 1.99 L (4.30-5.90) m/uL Hgb 6.3 L* (13.0-17.5) gm/dL Hct 19.3 L* (39.0-53.0) % RDW 16.5 H (11.5-15.5) % Sodium (137-145) mmol/L Potassium (3.5-5.1) mmol/L Chloride (98-107) mmol/L Carbon Dioxide (22-30) mmol/L BUN (9-20) mg/dL POC Glucose (mg/dL) 172 H (70-110) mg/dL Calcium (8.4-10.2) mg/dL Crossmatch See Detail 11/23/22 11/23/22 11/23/22 Range/Units 16:28 20:07 23:38 WBC 30.8 H (3.8-10.6) k/uL RBC 2.48 L (4.30-5.90) m/uL Hgb 7.6 L (13.0-17.5) gm/dL Hct 22.9 L (39.0-53.0) % RDW 17.3 H (11.5-15.5) % Sodium (137-145) mmol/L Potassium (3.5-5.1) mmol/L Chloride (98-107) mmol/L Carbon Dioxide (22-30) mmol/L BUN (9-20) mg/dL POC Glucose (mg/dL) 322 H 221 H (70-110) mg/dL Calcium (8.4-10.2) mg/dL Crossmatch 11/24/22 11/24/22 11/24/22 Range/Units 06:02 06:27 06:27 WBC 25.6 H (3.8-10.6) k/uL RBC 2.32 L (4.30-5.90) m/uL Hgb 7.1 L (13.0-17.5) gm/dL Hct 22.4 L (39.0-53.0) % RDW 17.8 H (11.5-15.5) % Sodium 131 L (137-145) mmol/L Potassium 5.7 H (3.5-5.1) mmol/L Chloride 112 H (98-107) mmol/L Carbon Dioxide 19 L (22-30) mmol/L BUN 37 H (9-20) mg/dL POC Glucose (mg/dL) 132 H (70-110) mg/dL Calcium 7.0 L (8.4-10.2) mg/dL Crossmatch Assessment and Plan Assessment: Bilateral upper extremity weakness Left knee pain Large retroperitoneal hematoma Anemia of unknown origin Plan: Plans for cervical and lumbar surgical procedures have been placed on hold until patient is medically cleared. Appreciate medical management -Patient received 2u PRBCs, current hgb 7.1 Pain management - Tylenol DVT prophylaxis -mechanical GI prophylaxis - Protonix; Tums PT/OT - weightbearing as tolerated with walker. Appreciate consult *I reviewed and discussed this case with my attending Dr. Starr, whom has reviewed this chart and films and is in agreement with assessment and plan of care as outlined above. I have personally seen and examined the patient, performed the documentation and the assessment and plan as written. Number of minutes spent on the visit: 15m.
[2022-11-24] MEDS ORDERED: SODIUM BICARB 8.4% 50 ML SYR (1 MEQ/ML) IV STA (12:04)
--- NOTE | 2022-11-24 12:06 | P.PN ---
Subjective Patient is seen in follow-up for acute kidney injury on chronic kidney disease. Renal function stable. Hemoglobin improved post blood transfusion yesterday. Denies any active bleeding. Has a Jo catheter for urinary retention. Nonoliguric. Vital signs are stable. General: No acute distress. HEENT: Head exam is unremarkable. LUNGS: Breath sounds decreased. HEART: Rate and Rhythm are regular. ABDOMEN: Soft, no distention. EXTREMITITES: 1+ edema. Objective - Vital Signs Vital signs: Vital Signs Temp 97.8 F 11/24/22 08:00 Pulse 52 L 11/24/22 08:00 Resp 16 11/24/22 08:00 BP 109/72 11/24/22 08:00 Pulse Ox 98 11/24/22 08:00 FiO2 Intake & Output 11/23/22 11/24/22 11/24/22 18:59 06:59 18:59 Intake Total 487.427 284 Output Total 244 459 6872 Balance -72. Weight 119 kg Intake: Intake, IV Titration 177.427 Amount Heparin Sod,Pork in 0.45% 177.427 NaCl 25,000 unit In 0.45 % NaCl 1 250ml.bag @ 10. 254 UNITS/KG/HR 10 mls/hr IV .Q24H [facility] Rx#: [id number] Blood Product 310 284 Rc As-1 Unit 310 [id number] Rc Pheresis 2 As3 Unit 0 284 [id number] Output: Urine 061 217 8422 Other: Voiding Method Indwelling Catheter Indwelling Catheter Indwelling Catheter # Bowel Movements 1 1 - Labs CBC & Chem 7: 11/24/22 06:27 11/24/22 06:27 Labs: Abnormal Lab Results - Last 24 Hours (Table) 11/23/22 11/23/22 11/23/22 Range/Units 07:44 12:02 14:53 WBC 25.2 H (3.8-10.6) k/uL RBC 1.99 L (4.30-5.90) m/uL Hgb 6.3 L* (13.0-17.5) gm/dL Hct 19.3 L* (39.0-53.0) % RDW 16.5 H (11.5-15.5) % Sodium (137-145) mmol/L Potassium (3.5-5.1) mmol/L Chloride (98-107) mmol/L Carbon Dioxide (22-30) mmol/L BUN (9-20) mg/dL POC Glucose (mg/dL) 172 H (70-110) mg/dL Calcium (8.4-10.2) mg/dL Crossmatch See Detail 11/23/22 11/23/22 11/23/22 Range/Units 16:28 20:07 23:38 WBC 30.8 H (3.8-10.6) k/uL RBC 2.48 L (4.30-5.90) m/uL Hgb 7.6 L (13.0-17.5) gm/dL Hct 22.9 L (39.0-53.0) % RDW 17.3 H (11.5-15.5) % Sodium (137-145) mmol/L Potassium (3.5-5.1) mmol/L Chloride (98-107) mmol/L Carbon Dioxide (22-30) mmol/L BUN (9-20) mg/dL POC Glucose (mg/dL) 322 H 221 H (70-110) mg/dL Calcium (8.4-10.2) mg/dL Crossmatch 11/24/22 11/24/22 11/24/22 Range/Units 06:02 06:27 06:27 WBC 25.6 H (3.8-10.6) k/uL RBC 2.32 L (4.30-5.90) m/uL Hgb 7.1 L (13.0-17.5) gm/dL Hct 22.4 L (39.0-53.0) % RDW 17.8 H (11.5-15.5) % Sodium 131 L (137-145) mmol/L Potassium 5.7 H (3.5-5.1) mmol/L Chloride 112 H (98-107) mmol/L Carbon Dioxide 19 L (22-30) mmol/L BUN 37 H (9-20) mg/dL POC Glucose (mg/dL) 132 H (70-110) mg/dL Calcium 7.0 L (8.4-10.2) mg/dL Crossmatch Microbiology - Last 24 Hours (Table) 11/07/22 21:50 Stool Culture - Final Stool 11/23/22 06:28 Blood Culture - Preliminary Blood No Growth after 24 hours 11/23/22 06:19 Blood Culture - Preliminary Blood No Growth after 24 hours Assessment and Plan Plan: Assessment: 1. Acute kidney injury mostly prerenal secondary to acute blood loss anemia and urinary retention. Renal function stable. Creatinine 1.18 today. Patient received IV contrast on 11/23/2022. Monitor for contrast-induced acute kidney injury. 2. Chronic kidney disease stage II with baseline creatinine 11.1. 3. Urinary retention. Has Jo catheter. 4. Lower extremity edema maintained on Lasix. 5. Hyperkalemia secondary to GI bleed and acidosis. 6. GI bleed status post blood transfusion this admission. CAT scan showed large intramuscular hematoma. 7. Metabolic acidosis secondary to acute kidney injury and GI losses maintained on oral bicarbonate. Plan: Maintain IV Lasix 40 mg once daily. 2 amps sodium bicarbonate IV push once today. Add lokelma 10 g once daily. Add Flomax. Monitor hemoglobin and transfuse as needed. Avoid nephrotoxins. Repeat labs in the morning.
[2022-11-24 12:12] LABS: Glucose,Whole Blood 145 mg/dL (70-110)
--- NOTE | 2022-11-24 12:36 | P.GSCN ---
History of Present Illness Consult date: 11/24/22 History of present illness: CHIEF COMPLAINT: Diarrhea HISTORY OF PRESENT ILLNESS: This is a 62-year-old male who initially presented to the hospital with complaints of diarrhea is found to be Covid positive. Patient had weakness in all 4 extremities. Has been evaluated by orthopedic service and initially this plan for surgery on the cervical spine today and later in the week surgery on the lumbar spine for osteo-discitis with stenosis. Patient had been on IV heparin in regards to a left leg DVT. He did have a drop in his hemoglobin from 7-5.9 and required 2 units of blood hemoglobin is now at 7.1. Due to this drop in hemoglobin with no active bleeding and left sided abdominal pain. Patient had a computed tomography scan of the abdomen and pelvis completed that had shown a large intramuscular hematoma thickening of the leftiliacus muscle and an additional retroperitoneal hematoma inferior to the left kidney extending down into the left side of the pelvis. At this time patient denies any abdominal pain. Denies any nausea or vomiting. IV heparin h as been discontinued as of yesterday. Patient does report improvement in his abdominal pain today. Patient denies any falls or injury to the abdomen. Does report a minimal cough. Patient's past surgical history does include multiple hernia surgeries. PAST MEDICAL HISTORY: See below PAST SURGICAL HISTORY: See below MEDICATIONS: See below ALLERGIES: See below SOCIAL HISTORY: No illicit drug use. REVIEW OF SYSTEMS: CONSTITUTIONAL: Denies fever or chills. HEENT: Denies blurred vision, vision changes, or eye pain. Denies hemoptysis CARDIOVASCULAR: Denies chest pain or pressure. RESPIRATORY: No shortness of breath. GASTROINTESTINAL: See HPI for pertinent findings HEMATOLOGIC: Denies bleeding disorders. GENITOURINARY: Denies any blood in urine or increased urinary frequency. SKIN: Denies pruitis. Denies rash. PHYSICAL EXAM: VITAL SIGNS: Reviewed GENERAL: Well-developed in no acute distress. HEENT: No sclera icterus. Extraocular movements grossly intact. Moist buccal mucosa. Head is atraumatic, normocephalic. No nasal drainage. ABDOMEN: Soft. Nondistended. Nontender. No evidence of ecchymosis. NEUROLOGIC: Alert and oriented. Cranial nerves II through XII grossly intact. LABORATORY DATA: WBC 25.6 Hgb 7.1 platelets 159 sodium is 131 potassium is 5.7 creatinine 1.18 IMAGING: Computed tomography scan abdomen and pelvis large intramuscular hematoma thicken ing of the left iliacus muscle measuring 17.8 x 9.4 x 6.2 cm. Additional retroperitoneal hematoma inferior to the left kidney extending down to the left side of the pelvis and anterior to the iliacus 's breading and 24.4 cm in measuring up to 8.9 cm wide. Interval development of severe generalized anasarca. Correlate for third spacing/fluid overload with small to left moderate pleural effusion. ASSESSMENT: 1. Left retroperitoneal hematoma 2. Large intramuscular hematoma of the left iliacus muscle 3. Acute blood loss anemia secondary to above PLAN: -Continue to hold anticoagulation -Recommend to cancel cervical spine surgery for today -Continue to monitor hemoglobin and transfuse as needed -Continue supportive care Thank you for this consultation Physician Marketing Services Specialist note has been reviewed by physician. Signing provider agrees with the documented findings, assessment, and plan of care. Past Medical History Past Medical History: Sleep Apnea/CPAP/BIPAP, Thyroid Disorder Additional Past Medical History / Comment(s): thyroid issue. pt reports not using CPAP/BIPAP at HS History of Any Multi-Drug Resistant Organisms: None Reported Additional Past Surgical History / Comment(s): gastric bypass. Umbilical hernia, 6x hernia surgeries, fell & broke hip in 2019 - pt was in [facility] at the time and reports getting a pin in hip. Past Anesthesia/Blood Transfusion Reactions: No Reported Reaction Past Psychological History: Depression Smoking Status: Never smoker Past Alcohol Use History: Occasional Additional Past Alcohol Use History / Comment(s): Patient reports moving to [place] in April 2022 and cutting back on alcohol use. Prior to moving to [place], pt reports drinking one 5th of whiskey a day, but only drinks occasionally now. Pt reports to RN that he drank one 5th of whiskey last Wednesday. Past Drug Use History: None Reported Medications and Allergies Home Medications Medication Instructions Recorded Confirmed Type Calcium Carbonate [Calcium] 600 mg PO DAILY 09/09/22 11/06/22 History Ergocalciferol (Vitamin D2) 1,250 mcg PO MOWE 09/09/22 11/06/22 History [Drisdol (50,000 Iu)] FLUoxetine HCL [PROzac] 20 mg PO DAILY 09/09/22 11/06/22 History Levothyroxine Sodium [Synthroid] 50 mcg PO DAILY 09/09/22 11/06/22 History Magnesium Oxide [Magnesium] 500 mg PO DAILY 09/09/22 11/06/22 History Diclofenac Sodium Gel [Voltaren 2 gm TOPICAL QID PRN 11/06/22 11/06/22 History Gel] Folic Acid 0.4 mg PO DAILY 11/06/22 11/06/22 History Ibuprofen [Motrin] 600 mg PO TID PRN 11/06/22 11/06/22 History Thiamine [Vitamin B-1] 100 mg PO DAILY 11/06/22 11/06/22 History Fondaparinux [Arixtra] 10 mg SQ DAILY #30 each 11/19/22 Rx Allergies Allergy/AdvReac Type Severity Reaction Status Date / Time No Known Allergies Allergy Verified 11/06/22 14:38 Surgical - Exam Vital Signs Temp Pulse Resp BP Pulse Ox 98.3 F 110 H 22 119/76 100 11/06/22 11:51 11/06/22 11:51 11/06/22 11:51 11/06/22 11:51 11/06/22 11:51 Results - Labs 11/24/22 06:27 11/24/22 06:27 Abnormal Lab Results - Last 24 Hours (Table) 11/23/22 11/23/22 11/23/22 Range/Units 07:44 12:02 14:53 WBC 25.2 H (3.8-10.6) k/uL RBC 1.99 L (4.30-5.90) m/uL Hgb 6.3 L* (13.0-17.5) gm/dL Hct 19.3 L* (39.0-53.0) % RDW 16.5 H (11.5-15.5) % Sodium (137-145) mmol/L Potassium (3.5-5.1) mmol/L Chloride (98-107) mmol/L Carbon Dioxide (22-30) mmol/L BUN (9-20) mg/dL POC Glucose (mg/dL) 172 H (70-110) mg/dL Calcium (8.4-10.2) mg/dL Crossmatch See Detail 11/23/22 11/23/22 11/23/22 Range/Units 16:28 20:07 23:38 WBC 30.8 H (3.8-10.6) k/uL RBC 2.48 L (4.30-5.90) m/uL Hgb 7.6 L (13.0-17.5) gm/dL Hct 22.9 L (39.0-53.0) % RDW 17.3 H (11.5-15.5) % Sodium (137-145) mmol/L Potassium (3.5-5.1) mmol/L Chloride (98-107) mmol/L Carbon Dioxide (22-30) mmol/L BUN (9-20) mg/dL POC Glucose (mg/dL) 322 H 221 H (70-110) mg/dL Calcium (8.4-10.2) mg/dL Crossmatch 11/24/22 11/24/22 11/24/22 Range/Units 06:02 06:27 06:27 WBC 25.6 H (3.8-10.6) k/uL RBC 2.32 L (4.30-5.90) m/uL Hgb 7.1 L (13.0-17.5) gm/dL Hct 22.4 L (39.0-53.0) % RDW 17.8 H (11.5-15.5) % Sodium 131 L (137-145) mmol/L Potassium 5.7 H (3.5-5.1) mmol/L Chloride 112 H (98-107) mmol/L Carbon Dioxide 19 L (22-30) mmol/L BUN 37 H (9-20) mg/dL POC Glucose (mg/dL) 132 H (70-110) mg/dL Calcium 7.0 L (8.4-10.2) mg/dL Crossmatch Microbiology - Last 24 Hours (Table) 11/23/22 06:28 Blood Culture - Preliminary Blood No Growth after 24 hours 11/23/22 06:19 Blood Culture - Preliminary Blood No Growth after 24 hours Diabetes panel 11/24/22 Range/Units 06:27 Sodium 131 L (137-145) mmol/L Potassium 5.7 H (3.5-5.1) mmol/L Chloride 112 H (98-107) mmol/L Carbon Dioxide 19 L (22-30) mmol/L BUN 37 H (9-20) mg/dL Creatinine 1.18 (0.66-1.25) mg/dL Glucose 97 (74-99) mg/dL Calcium 7.0 L (8.4-10.2) mg/dL Calcium panel 11/24/22 Range/Units 06:27 Calcium 7.0 L (8.4-10.2) mg/dL Pituitary panel 11/24/22 Range/Units 06:27 Sodium 131 L (137-145) mmol/L Potassium 5.7 H (3.5-5.1) mmol/L Chloride 112 H (98-107) mmol/L Carbon Dioxide 19 L (22-30) mmol/L BUN 37 H (9-20) mg/dL Creatinine 1.18 (0.66-1.25) mg/dL Glucose 97 (74-99) mg/dL Calcium 7.0 L (8.4-10.2) mg/dL Adrenal panel 11/24/22 Range/Units 06:27 Sodium 131 L (137-145) mmol/L Potassium 5.7 H (3.5-5.1) mmol/L Chloride 112 H (98-107) mmol/L Carbon Dioxide 19 L (22-30) mmol/L BUN 37 H (9-20) mg/dL Creatinine 1.18 (0.66-1.25) mg/dL Glucose 97 (74-99) mg/dL Calcium 7.0 L (8.4-10.2) mg/dL
[2022-11-24] MEDS: SODIUM ZIRCONIUM CYCLOSILICATE 10 GM PACKET PO SCH (13:04)
[2022-11-24] MEDS ORDERED: SODIUM BICARB 8.4% 50 ML SYR (1 MEQ/ML) ONE (13:07)
[2022-11-24 16:55] LABS: Glucose,Whole Blood 221 mg/dL (70-110)
--- NOTE | 2022-11-24 17:06 | P.PN ---
Subjective Progress Note Date: 11/24/22 Principal diagnosis: Anemia, LLE DVT Pt reports he is doing well today, good spirits, pending possible surgery, no reports of any bleeding or pain. the left flank/back pain is better today. Objective - Vital Signs Vital signs: Vital Signs Temp 98.6 F 11/24/22 04:00 Pulse 61 11/24/22 04:00 Resp 16 11/24/22 04:00 BP 132/76 11/24/22 04:00 Pulse Ox 99 11/24/22 04:00 FiO2 Intake & Output 11/23/22 11/24/22 11/24/22 18:59 06:59 18:59 Intake Total 487.427 284 Output Total 560 325 Balance -72.573 -41 Weight 119 kg Intake: Intake, IV Titration 177.427 Amount Heparin Sod,Pork in 0.45% 177.427 NaCl 25,000 unit In 0.45 % NaCl 1 250ml.bag @ 10. 254 UNITS/KG/HR 10 mls/hr IV .Q24H [facility] Rx#: [id number] Blood Product 310 284 Rc As-1 Unit 310 [id number] Rc Pheresis 2 As3 Unit 0 284 [id number] Output: Urine 560 325 Other: Voiding Method Indwelling Catheter Indwelling Catheter # Bowel Movements 1 - Constitutional General appearance: Present: average body habitus, cooperative, no acute distress - EENT Eyes: Present: anicteric sclerae, EOMI ENT: Present: hearing grossly normal - Respiratory Details: resp even and unlabored - Cardiovascular Details: skin warm and dry - Peripheral edema leg Peripheral Edema: right: None, left: 3+, Pitting - Gastrointestinal Gastrointestinal Comment(s): stomach notably distended on the left, no bruising seen, not hot to touch, no pain - Integumentary Integumentary Comment(s): bruising to left anterior thigh Integumentary: Present: pale - Neurologic Neurologic: Present: CNII-XII intact - Musculoskeletal Musculoskeletal: Present: generalized weakness - Psychiatric Psychiatric: Present: A&O x's 3, appropriate affect, intact judgment & insight - Labs CBC & Chem 7: 11/24/22 06:27 11/24/22 06:27 Labs: Abnormal Lab Results - Last 24 Hours (Table) 11/23/22 11/23/22 11/23/22 Range/Units 07:44 12:02 14:53 WBC 25.2 H (3.8-10.6) k/uL RBC 1.99 L (4.30-5.90) m/uL Hgb 6.3 L* (13.0-17.5) gm/dL Hct 19.3 L* (39.0-53.0) % RDW 16.5 H (11.5-15.5) % Sodium (137-145) mmol/L Potassium (3.5-5.1) mmol/L Chloride (98-107) mmol/L Carbon Dioxide (22-30) mmol/L BUN (9-20) mg/dL POC Glucose (mg/dL) 172 H (70-110) mg/dL Calcium (8.4-10.2) mg/dL Crossmatch See Detail 11/23/22 11/23/22 11/23/22 Range/Units 16:28 20:07 23:38 WBC 30.8 H (3.8-10.6) k/uL RBC 2.48 L (4.30-5.90) m/uL Hgb 7.6 L (13.0-17.5) gm/dL Hct 22.9 L (39.0-53.0) % RDW 17.3 H (11.5-15.5) % Sodium (137-145) mmol/L Potassium (3.5-5.1) mmol/L Chloride (98-107) mmol/L Carbon Dioxide (22-30) mmol/L BUN (9-20) mg/dL POC Glucose (mg/dL) 322 H 221 H (70-110) mg/dL Calcium (8.4-10.2) mg/dL Crossmatch 11/24/22 11/24/22 11/24/22 Range/Units 06:02 06:27 06:27 WBC 25.6 H (3.8-10.6) k/uL RBC 2.32 L (4.30-5.90) m/uL Hgb 7.1 L (13.0-17.5) gm/dL Hct 22.4 L (39.0-53.0) % RDW 17.8 H (11.5-15.5) % Sodium 131 L (137-145) mmol/L Potassium 5.7 H (3.5-5.1) mmol/L Chloride 112 H (98-107) mmol/L Carbon Dioxide 19 L (22-30) mmol/L BUN 37 H (9-20) mg/dL POC Glucose (mg/dL) 132 H (70-110) mg/dL Calcium 7.0 L (8.4-10.2) mg/dL Crossmatch Microbiology - Last 24 Hours (Table) 11/23/22 06:28 Blood Culture - Preliminary Blood No Growth after 24 hours 11/23/22 06:19 Blood Culture - Preliminary Blood No Growth after 24 hours - Imaging and Cardiology CT scan - pelvis: report reviewed US - abdomen: report reviewed Venous US: report reviewed Assessment and Plan (1) Normocytic normochromic anemia Current Visit: Yes Status: Acute Priority: High Code(s): D64.9 - ANEMIA, UNSPECIFIED SNOMED Code(s): 26465442 (2) COVID-19 Current Visit: Yes Status: Acute Priority: High Code(s): U07.1 - COVID-19 SNOMED Code(s): 567743576 (3) Left leg DVT Current Visit: Yes Status: Acute Priority: High Code(s): I82.402 - ACUTE EMBOLISM AND THOMBOS UNSP DEEP VEINS OF L LOW EXTREM SNOMED Code(s): 079187863 Plan: Heparin D/C on 11/23/22 due to large hematoma of left iliac muscle and retroperitoneal hematoma inferior to left kidney. Consulted vascular surgery for IVC placement, as pt is unable to receive anticoagulation at this time. Spoke with Dr. Zheng, who agreed to postpone cervical surgery today, until IVC filter is placed WBC 25.6, Hgb 7.1, HCT 22.4, PLT 159, Will continue to monitor, transfuse PRBCs for hemoglobin less than 7.0 Pt verbalized understanding of plan Time with Patient: Greater than 30
[2022-11-24] MEDS: TAMSULOSIN 0.4 MG CAP.ER.24H PO SCH (17:32)
--- NOTE | 2022-11-24 18:08 | P.GSCN ---
History of Present Illness Consult date: 11/24/22 Reason for Consult: Need for IVC filter History of present illness: 62-year-old gentleman who initially presented to the hospital secondary to diarrhea and found to be coated positive. He then developed weakness in all 4 extremities and was being evaluated by orthospine and was scheduled to have surgical intervention first on his cervical spine today and then his lumbar spine later in the week. He does have a history of DVT and has been on IV heparin for his clots with the plan of stopping heparin for the surgery. Earlier today he was noted to have a drop in hemoglobin and is complaining of some abdominal discomfort and ultimately underwent a CT angiogram that demonstrated a large intramuscular hematoma in the left iliac is muscle in the retroperitoneum. His procedure was then canceled as well as his procedure on . Due to this large retroperitoneal hematoma as well as his DVT and need for surgical intervention we are consult it for possible IVC filter placement. He denies any fevers, chills, chest pain or shortness of breath at this time. His only complaint is some discomfort in his abdomen as well as his back pain. Review of Systems All systems: negative (What is mentioned in the HPI or past medical history) Past Medical History Past Medical History: Sleep Apnea/CPAP/BIPAP, Thyroid Disorder Additional Past Medical History / Comment(s): thyroid issue. pt reports not using CPAP/BIPAP at History of Any Multi-Drug Resistant Organisms: None Reported Additional Past Surgical History / Comment(s): gastric bypass. Umbilical hernia, 6x hernia surgeries, fell & broke hip in 2019 - pt was in [facility] at the time and reports getting a pin in hip. Past Anesthesia/Blood Transfusion Reactions: No Reported Reaction Past Psychological History: Depression Smoking Status: Never smoker Past Alcohol Use History: Occasional Additional Past Alcohol Use History / Comment(s): Patient reports moving to [place] in April 2022 and cutting back on alcohol use. Prior to moving to [place], pt reports drinking one 5th of whiskey a day, but only drinks occasionally now. Pt reports to RN that he drank one 5th of whiskey last Wednesday. Past Drug Use History: None Reported Medications and Allergies Home Medications Medication Instructions Recorded Confirmed Type Calcium Carbonate [Calcium] 600 mg PO DAILY 09/09/22 11/06/22 History Ergocalciferol (Vitamin D2) 1,250 mcg PO MOWE 09/09/22 11/06/22 History [Drisdol (50,000 Iu)] FLUoxetine HCL [PROzac] 20 mg PO DAILY 09/09/22 11/06/22 History Levothyroxine Sodium [Synthroid] 50 mcg PO DAILY 09/09/22 11/06/22 History Magnesium Oxide [Magnesium] 500 mg PO DAILY 09/09/22 11/06/22 History Diclofenac Sodium Gel [Voltaren 2 gm TOPICAL QID PRN 11/06/22 11/06/22 History Gel] Folic Acid 0.4 mg PO DAILY 11/06/22 11/06/22 History Ibuprofen [Motrin] 600 mg PO TID PRN 11/06/22 11/06/22 History Thiamine [Vitamin B-1] 100 mg PO DAILY 11/06/22 11/06/22 History Fondaparinux [Arixtra] 10 mg SQ DAILY #30 each 11/19/22 Rx Allergies Allergy/AdvReac Type Severity Reaction Status Date / Time No Known Allergies Allergy Verified 11/06/22 14:38 Surgical - Exam Vital Signs Temp Pulse Resp BP Pulse Ox 98.3 F 110 H 22 119/76 100 11/06/22 11:51 11/06/22 11:51 11/06/22 11:51 11/06/22 11:51 11/06/22 11:51 - General well developed, well nourished, no distress - Eyes PERRL, normal ocular movement - ENT normal pinna, normal nares - Neck no masses, no bruits - Respiratory normal expansion, normal respiratory effort - Cardiovascular Rhythm: regular - Abdomen Abdomen: soft, non tender - Integumentary no rash, no growths - Psychiatric oriented to time, oriented to person, oriented to place, speech is normal Results - Labs 11/24/22 06:27 11/24/22 06:27 Abnormal Lab Results - Last 24 Hours (Table) 11/23/22 11/23/22 11/23/22 Range/Units 07:44 20:07 23:38 WBC 30.8 H (3.8-10.6) k/uL RBC 2.48 L (4.30-5.90) m/uL Hgb 7.6 L (13.0-17.5) gm/dL Hct 22.9 L (39.0-53.0) % RDW 17.3 H (11.5-15.5) % Sodium (137-145) mmol/L Potassium (3.5-5.1) mmol/L Chloride (98-107) mmol/L Carbon Dioxide (22-30) mmol/L BUN (9-20) mg/dL POC Glucose (mg/dL) 221 H (70-110) mg/dL Calcium (8.4-10.2) mg/dL Crossmatch See Detail 11/24/22 11/24/22 11/24/22 Range/Units 06:02 06:27 06:27 WBC 25.6 H (3.8-10.6) k/uL RBC 2.32 L (4.30-5.90) m/uL Hgb 7.1 L (13.0-17.5) gm/dL Hct 22.4 L (39.0-53.0) % RDW 17.8 H (11.5-15.5) % Sodium 131 L (137-145) mmol/L Potassium 5.7 H (3.5-5.1) mmol/L Chloride 112 H (98-107) mmol/L Carbon Dioxide 19 L (22-30) mmol/L BUN 37 H (9-20) mg/dL POC Glucose (mg/dL) 132 H (70-110) mg/dL Calcium 7.0 L (8.4-10.2) mg/dL Crossmatch 11/24/22 11/24/22 Range/Units 12:09 16:53 WBC (3.8-10.6) k/uL RBC (4.30-5.90) m/uL Hgb (13.0-17.5) gm/dL Hct (39.0-53.0) % RDW (11.5-15.5) % Sodium (137-145) mmol/L Potassium (3.5-5.1) mmol/L Chloride (98-107) mmol/L Carbon Dioxide (22-30) mmol/L BUN (9-20) mg/dL POC Glucose (mg/dL) 145 H 221 H (70-110) mg/dL Calcium (8.4-10.2) mg/dL Crossmatch Microbiology - Last 24 Hours (Table) 11/07/22 21:50 Stool Culture - Final Stool 11/23/22 06:28 Blood Culture - Preliminary Blood No Growth after 24 hours 11/23/22 06:19 Blood Culture - Preliminary Blood No Growth after 24 hours Diabetes panel 11/24/22 Range/Units 06:27 Sodium 131 L (137-145) mmol/L Potassium 5.7 H (3.5-5.1) mmol/L Chloride 112 H (98-107) mmol/L Carbon Dioxide 19 L (22-30) mmol/L BUN 37 H (9-20) mg/dL Creatinine 1.18 (0.66-1.25) mg/dL Glucose 97 (74-99) mg/dL Calcium 7.0 L (8.4-10.2) mg/dL Calcium panel 11/24/22 Range/Units 06:27 Calcium 7.0 L (8.4-10.2) mg/dL Pituitary panel 11/24/22 Range/Units 06:27 Sodium 131 L (137-145) mmol/L Potassium 5.7 H (3.5-5.1) mmol/L Chloride 112 H (98-107) mmol/L Carbon Dioxide 19 L (22-30) mmol/L BUN 37 H (9-20) mg/dL Creatinine 1.18 (0.66-1.25) mg/dL Glucose 97 (74-99) mg/dL Calcium 7.0 L (8.4-10.2) mg/dL Adrenal panel 11/24/22 Range/Units 06:27 Sodium 131 L (137-145) mmol/L Potassium 5.7 H (3.5-5.1) mmol/L Chloride 112 H (98-107) mmol/L Carbon Dioxide 19 L (22-30) mmol/L BUN 37 H (9-20) mg/dL Creatinine 1.18 (0.66-1.25) mg/dL Glucose 97 (74-99) mg/dL Calcium 7.0 L (8.4-10.2) mg/dL - Imaging CT scan - abdomen: report reviewed, image reviewed Assessment and Plan Assessment: Acute blood loss anemia secondary to large left retroperitoneal hematoma Large intramuscular hematoma the left iliac is muscle Acute on chronic deep venous thrombosis involving the left proximal calf vein COVID-19 positive Plan: Reviewed imaging with the patient in full detail which does demonstrate a large retroperitoneal hematoma and I would agree with holding any heparin at this time or anticoagulation. I discussed with the patient possibility of IVC filter placement which he is a candidate due to his high risk for progressive DVT. Due to the fact that he has COVID-19, lower extremity DVT and need of surgical intervention we will place an IVC filter tomorrow. Thank you for allowing us to participate in your patient's care.
[2022-11-24 20:06] LABS: Glucose,Whole Blood 213 mg/dL (70-110)
[2022-11-24] MEDS: MELATONIN 3 MG TABLET PO SCH (20:30)
--- NOTE | 2022-11-24 22:24 | P.PN ---
Subjective Progress Note Date: 11/24/22 Principal diagnosis: Covid 19 Patient is a 62-year-old male who is unvaccinated for COVID-19 patient was brought into the ER for evaluation of weakness no energy mention the patient was not able to get stand up and go to the bathroom patient has been dealing with the diarrhea off and on for couple of weeks, patient was noticed to have a positive covid test, however the patient was not hypoxic and CT abdominal pelvis with few bibasilar patchy groundglass opacity representing atelectasis and no evidence of colitis. Patient did have a drop in his hemoglobin and underwent a CT angiogram that demonstrated a large intramuscular hematoma in the left iliac is muscle in the retroperitoneum. On today's evaluation that is 11/24/2022, the patient continues to be afebrile, the patient is breathing comfortably on room air, The patient denies chest pain , the patient did have occasional dry cough, the patienthas been complaining of some lower abdominal pain and diarrhea has resolved, the patient denies any worsening neck or back pain Objective - Vital Signs Vital signs: Vital Signs Temp 97.8 F 11/24/22 08:00 Pulse 52 L 11/24/22 08:00 Resp 16 11/24/22 08:00 BP 109/72 11/24/22 08:00 Pulse Ox 98 11/24/22 08:00 FiO2 Intake & Output 11/23/22 11/24/22 11/24/22 18:59 06:59 18:59 Intake Total 487.427 284 Output Total 723 170 3416 Balance -72. Weight 119 kg Intake: Intake, IV Titration 177.427 Amount Heparin Sod,Pork in 0.45% 177.427 NaCl 25,000 unit In 0.45 % NaCl 1 250ml.bag @ 10. 254 UNITS/KG/HR 10 mls/hr IV .Q24H [facility] Rx#: [id number] Blood Product 310 284 Rc As-1 Unit 310 [id number] Rc Pheresis 2 As3 Unit 0 284 [id number] Output: Urine 660 554 0818 Other: Voiding Method Indwelling Catheter Indwelling Catheter Indwelling Catheter # Bowel Movements 1 1 - Exam GENERAL DESCRIPTION: An elderly male lying in bed in no distress RESPIRATORY SYSTEM: Unlabored breathing , decreased breath sounds at bases HEART: S1 S2 regular rate and rhythm , ABDOMEN: Soft , no tenderness EXTREMITIES: No edema feet - Labs CBC & Chem 7: 11/24/22 06:27 11/24/22 06:27 Labs: Abnormal Lab Results - Last 24 Hours (Table) 11/23/22 11/23/22 11/23/22 Range/Units 07:44 14:53 16:28 WBC 25.2 H (3.8-10.6) k/uL RBC 1.99 L (4.30-5.90) m/uL Hgb 6.3 L* (13.0-17.5) gm/dL Hct 19.3 L* (39.0-53.0) % RDW 16.5 H (11.5-15.5) % Sodium (137-145) mmol/L Potassium (3.5-5.1) mmol/L Chloride (98-107) mmol/L Carbon Dioxide (22-30) mmol/L BUN (9-20) mg/dL POC Glucose (mg/dL) 322 H (70-110) mg/dL Calcium (8.4-10.2) mg/dL Crossmatch See Detail 11/23/22 11/23/22 11/24/22 Range/Units 20:07 23:38 06:02 WBC 30.8 H (3.8-10.6) k/uL RBC 2.48 L (4.30-5.90) m/uL Hgb 7.6 L (13.0-17.5) gm/dL Hct 22.9 L (39.0-53.0) % RDW 17.3 H (11.5-15.5) % Sodium (137-145) mmol/L Potassium (3.5-5.1) mmol/L Chloride (98-107) mmol/L Carbon Dioxide (22-30) mmol/L BUN (9-20) mg/dL POC Glucose (mg/dL) 221 H 132 H (70-110) mg/dL Calcium (8.4-10.2) mg/dL Crossmatch 11/24/22 11/24/22 11/24/22 Range/Units 06:27 06:27 12:09 WBC 25.6 H (3.8-10.6) k/uL RBC 2.32 L (4.30-5.90) m/uL Hgb 7.1 L (13.0-17.5) gm/dL Hct 22.4 L (39.0-53.0) % RDW 17.8 H (11.5-15.5) % Sodium 131 L (137-145) mmol/L Potassium 5.7 H (3.5-5.1) mmol/L Chloride 112 H (98-107) mmol/L Carbon Dioxide 19 L (22-30) mmol/L BUN 37 H (9-20) mg/dL POC Glucose (mg/dL) 145 H (70-110) mg/dL Calcium 7.0 L (8.4-10.2) mg/dL Crossmatch Microbiology - Last 24 Hours (Table) 11/07/22 21:50 Stool Culture - Final Stool 11/23/22 06:28 Blood Culture - Preliminary Blood No Growth after 24 hours 11/23/22 06:19 Blood Culture - Preliminary Blood No Growth after 24 hours Assessment and Plan (1) COVID-19 Current Visit: Yes Status: Acute Priority: High Code(s): U07.1 - COVID-19 SNOMED Code(s): 110919356 (2) Diarrhea Current Visit: Yes Status: Acute Priority: High Code(s): R19.7 - DIARRHEA, UNSPECIFIED SNOMED Code(s): 72712332 Plan: 1patient present to hospital generalized weakness which is likely multifa ctorial could be related to his diarrhea has not patient did have significant diarrhea and evidence of prerenal status was low potassium, stool for C. diff is negative stool cultures has been obtained and currently pending, patient to continue Questran and advised to increase his probiotic and yogurt intake 2patient with a low-grade fever, the patient did have elevated pro calcitonin, CT angiogram of the chest was negative for PE however did shows right lower lobe infiltrate suspicious for pneumonia 3-patient fever has resolved, patient has received adequate antibiotic therapy for underlying pneumonia and Rocephin was discontinued 11/20/2022 4patient did have a abnormal MRI of the cervical spine as well as lumbar spine with a questionable discitis reported by radiologist however the patient did have normal sed rate and a CRP 2, patient is currently being monitor closely off antibiotic therapy to increase the yield of any culture to be done at the time of surgery . 5leukocytosis is more likely steroid related and now with evidence of muscle hematoma as well as retroperitoneal hematoma and the patient is being monitored by general surgery and vascular surgery at the bedside questions and concerns were answered Time with Patient: Less than 30
[2022-11-25 06:03] LABS: Glucose,Whole Blood 170 mg/dL (70-110)
[2022-11-25] MEDS: LEVOTHYROXINE 50 MCG TAB PO SCH (06:52)
[2022-11-25] MEDS: DEXAMETHASONE SOD PHOSPHATE 4 MG/ML 1 ML VIAL IVP SCH ×3 (06:52→17:22)
[2022-11-25] MEDS: INSULIN ASPART (NovoLOG) 100 UNIT/ML VIAL SQ SCH ×4 (06:52→20:50)
--- NOTE | 2022-11-25 08:10 | P.PN ---
Subjective Progress Note Date: 11/25/22 Principal diagnosis: Bilateral upper extremity weakness; back pain Patient seen and examined this morning. Patient is resting in bed. He has c/o increasing edema to left lower extremity. Patient will be having an IVC filter placement today performed by Dr. Vyas. Discussed with patient that his surgery will be placed on hold at this time until he is medically stable. He has been afebrile, denies nausea/vomiting, or chest pain. Objective - Vital Signs Vital signs: Vital Signs Temp 98.1 F 11/25/22 04:00 Pulse 58 L 11/25/22 04:00 Resp 18 11/25/22 04:00 BP 103/69 11/25/22 04:00 Pulse Ox 96 11/25/22 04:00 FiO2 Intake & Output 11/24/22 11/25/22 11/25/22 18:59 06:59 18:59 Intake Total 120 Output Total 2300 625 Balance -2180 -625 Weight 119 kg Intake: Oral 120 Output: Urine 2300 625 Other: Voiding Method Indwelling Catheter Indwelling Catheter # Bowel Movements 1 - Exam Physical Examination General: The patient is awake and alert, in no acute distress Skin: Skin is warm and dry with no obvious rashes or lesions. Hairy patches absent, no dorsal skin dimples, no cafe au lait spots, and no surgical incisions. Eye: Pupils are equal, round and reactive to light, extra-ocular movements are intact; there is normal conjunctiva bilaterally. Neck: The neck is supple, there is no tenderness and ROM intact. Cardiovascular: There is a regular rate and rhythm. No murmur, rub or gallop is appreciated. Left lower 2+ pitting edema present. Respiratory: Lungs are clear to auscultation, respirations are non-labored, breath sounds are equal. Gastrointestinal: Soft, non-distended, non-tender abdomen. Back: There is no tenderness to palpation in the midline, paralumbar, parathoracic or buttocks region. There is no obvious deformity . Musculoskeletal: ROM limited secondary to pain and stiffness from surgical procedure. Muscle strength in all major muscle groups of right upper extremity 3/5, left upper extremity 4/5, bilateral lower extremities 4-/5. Neurological: CN 2-12 intact. There are no obvious motor or sensory deficits. Movement and coordination equal and intact. Sensory exam to light touch intact C5-T1 and intact from L2-S1. Reflexes 2/4 in bilateral upper and lower extremities. Negative Hoffmans, babinski, and clonus signs. Psychiatric: Cooperative, appropriate mood & affect, normal judgment. - Labs CBC & Chem 7: 11/24/22 06:27 11/24/22 06:27 Labs: Abnormal Lab Results - Last 24 Hours (Table) 11/24/22 11/24/22 11/24/22 Range/Units 12:09 16:53 20:05 POC Glucose (mg/dL) 145 H 221 H 213 H (70-110) mg/dL 11/25/22 Range/Units 06:02 POC Glucose (mg/dL) 170 H (70-110) mg/dL Microbiology - Last 24 Hours (Table) 11/07/22 21:50 Stool Culture - Final Stool 11/23/22 06:28 Blood Culture - Preliminary Blood No Growth after 24 hours 11/23/22 06:19 Blood Culture - Preliminary Blood No Growth after 24 hours Assessment and Plan Assessment: Bilateral upper extremity weakness Left knee pain Large retroperitoneal hematoma Anemia of unknown origin Plan: Plans for cervical and lumbar surgical procedures have been placed on hold until patient is medically cleared. Appreciate medical management -IVC filter placement by Dr. Vyas today. Pain management - Tylenol DVT prophylaxis -mechanical GI prophylaxis - Protonix; Tums PT/OT - weightbearing as tolerated with walker. Appreciate consult *I reviewed and discussed this case with my attending Dr. Starr, whom has reviewed this chart and films and is in agreement with assessment and plan of care as outlined above. I have personally seen and examined the patient, performed the documentation and the assessment and plan as written. Number of minutes spent on the visit: 15m.
[2022-11-25] MEDS: THIAMINE 100 MG TAB PO SCH (09:02)
[2022-11-25] MEDS: SODIUM BICARBONATE TAB 650 MG TAB PO SCH ×3 (09:02→20:50)
[2022-11-25] MEDS: CHOLECALCIFEROL 25 MCG (1000 IU) TABLET PO SCH (09:02)
[2022-11-25] MEDS: FOLIC ACID 1 MG TAB PO SCH (09:02)
[2022-11-25] MEDS: MAGNESIUM OXIDE 400 MG TAB PO SCH (09:02)
[2022-11-25] MEDS: FUROSEMIDE 10 MG/ML 4 ML VIAL IV SCH (09:03)
[2022-11-25] MEDS: FLUoxetine HCL 20 MG CAP PO SCH (09:03)
[2022-11-25] MEDS: DILTIAZEM ORAL 30 MG TAB PO SCH ×3 (09:03→20:50)
[2022-11-25] MEDS: ASCORBIC ACID 500 MG TAB PO SCH ×2 (09:03→20:50)
[2022-11-25] MEDS: ZINC SULFATE 220 MG CAP PO SCH (09:03)
[2022-11-25] MEDS: PANTOPRAZOLE 40 MG/10 ML VIAL IVP SCH ×2 (09:03→20:50)
[2022-11-25] MEDS: CALCIUM CARBONATE 500 MG CHEWABLE PO SCH ×3 (09:03→20:51)
[2022-11-25] MEDS: CHOLESTYRAMINE (WITH SUGAR) 4 GM PACKET PO SCH ×2 (09:04→17:19)
[2022-11-25] MEDS: SODIUM ZIRCONIUM CYCLOSILICATE 10 GM PACKET PO SCH (09:13)
[2022-11-25] MEDS: PYRIDOXINE 50 MG TAB PO SCH ×2 (09:14→21:44)
[2022-11-25] MEDS: CYANOCOBALAMIN 1,000 MCG/ML 1 ML VIAL IM SCH (09:15)
[2022-11-25 11:04] LABS: Anisocytosis Slight; Basophils # (A) 0.1 k/uL (0-0.2); Basophils % (A) 0 %; Eosinophils % (A) 0 %; HCT 20.8 % (39.0-53.0); Hypochromasia Slight; Lymphocytes # (A) 1.2 k/uL (1.0-4.8); Lymphocytes % (A) 6 %; MCH 30.7 pg (25.0-35.0); MCHC 32.6 g/dL (31.0-37.0); MCV 94.2 fL (80.0-100.0); Macrocytosis Slight; Mean Platelet Volume 9.4; Monocytes # (A) 0.8 k/uL (0-1.0); Monocytes % (A) 4 %; Neutrophils # (A) 18.4 k/uL (1.3-7.7); Neutrophils % (A) 89 %; Platelet Count 149 k/uL (150-450); RBC 2.21 m/uL (4.30-5.90); RDW 18.4 % (11.5-15.5); WBC 20.6 k/uL (3.8-10.6)
--- NOTE | 2022-11-25 11:08 | P.PN ---
Subjective Progress Note Date: 11/25/22 CHIEF COMPLAINT: Diarrhea HISTORY OF PRESENT ILLNESS: Surgical service following regards to patient's ret roperitoneal bleed. Patient complains of left upper leg pain. Patient does report having twinges of pain in the lower back. He reports that this is not new. He is scheduled for an IVC filter today. He remains off of the IV heparin. Has history of left leg DVT. Afebrile. Hgb 7.6 down to 7.1 WBC 25.6 platelets 159 sodium was 131 potassium is 5.7 creatinine 1.18. Patient's cervical spine surgery was canceled yesterday. And the lumbar spine surgery is likely postponed until scheduled for tomorrow. PHYSICAL EXAM: VITAL SIGNS: Reviewed. GENERAL: Well-developed in no acute distress. HEENT: No sclera icterus. Extraocular movements grossly intact. Moist buccal mucosa. Head is atraumatic, normocephalic. ABDOMEN: Soft. Nondistended. Nontender. NEUROLOGIC: Alert and oriented. Cranial nerves II through XII grossly intact. Skin: No evidence of ecchymosis in the back or abdomen. ASSESSMENT: 1. Left retroperitoneal hematoma 2. Large intramuscular hematoma of the left iliacus muscle 3. Acute blood loss anemia secondary to above 4. Discitis cervical and lumbar spine PLAN: -No surgical intervention planned -Continue supportive care -Continue to hold anticoagulation -Continue to monitor hemoglobin Physician [employer] Worker note has been reviewed by physician. Signing provider agrees with the documented findings, assessment, and plan of care. Objective - Vital Signs Vital signs: Vital Signs Temp 98.1 F 11/25/22 04:00 Pulse 58 L 11/25/22 04:00 Resp 18 11/25/22 04:00 BP 103/69 11/25/22 04:00 Pulse Ox 96 11/25/22 04:00 FiO2 Intake & Output 11/24/22 11/25/22 11/25/22 18:59 06:59 18:59 Intake Total 120 Output Total 2300 625 400 Balance -5896 -410 -400 Weight 119 kg Intake: Oral 120 Output: Urine 2300 625 400 Other: Voiding Method Indwelling Catheter Indwelling Catheter # Bowel Movements 1 - Labs CBC & Chem 7: 11/24/22 06:27 11/24/22 06:27 Labs: Abnormal Lab Results - Last 24 Hours (Table) 1211/24/22 11/24/22 Range/Units 12:09 16:53 20:05 POC Glucose (mg/dL) 145 H 221 H 213 H (70-110) mg/dL 11/25/22 Range/Units 06:02 POC Glucose (mg/dL) 170 H (70-110) mg/dL Microbiology - Last 24 Hours (Table) 11/23/22 06:28 Blood Culture - Preliminary Blood No Growth after 48 hours 11/23/22 06:19 Blood Culture - Preliminary Blood No Growth after 48 hours 11/07/22 21:50 Stool Culture - Final Stool
[2022-11-25 11:16] LABS: HGB 6.8 gm/dL (13.0-17.5)
[2022-11-25 11:25] LABS: Calcium 7.4 mg/dL (8.4-10.2); Magnesium 1.6 mg/dL (1.6-2.3); Potassium 5.4 mmol/L (3.5-5.1)
[2022-11-25 11:35] LABS: Glucose,Whole Blood 183 mg/dL (70-110)
--- NOTE | 2022-11-25 13:00 | P.PN ---
Subjective Patient is seen in follow-up for acute kidney injury on chronic kidney disease. Renal function fairly stable. Hemoglobin 6.8 today. Denies any active bleeding. Has a Jo catheter for urinary retention. Nonoliguric. Vital signs are stable. General: No acute distress. HEENT: Head exam is unremarkable. LUNGS: Breath sounds decreased. HEART: Rate and Rhythm are regular. ABDOMEN: Soft, no distention. EXTREMITITES: 1+ edema. Objective - Vital Signs Vital signs: Vital Signs Temp 97.9 F 11/25/22 08:00 Pulse 64 11/25/22 08:00 Resp 18 11/25/22 08:00 BP 112/72 11/25/22 08:00 Pulse Ox 95 11/25/22 08:00 FiO2 Intake & Output 11/24/22 11/25/22 11/25/22 18:59 06:59 18:59 Intake Total 120 Output Total 2300 625 400 Balance -2180 -625 -400 Weight 119 kg Intake: Oral 120 Output: Urine 2300 625 400 Other: Voiding Method Indwelling Catheter Indwelling Catheter Indwelling Catheter # Bowel Movements 1 - Labs CBC & Chem 7: 11/25/22 09:55 11/25/22 09:55 Labs: Abnormal Lab Results - Last 24 Hours (Table) 11/23/22 11/24/22 11/24/22 Range/Units 07:44 16:53 20:05 WBC (3.8-10.6) k/uL RBC (4.30-5.90) m/uL Hgb (13.0-17.5) gm/dL Hct (39.0-53.0) % RDW (11.5-15.5) % Plt Count (150-450) k/uL Neutrophils # (1.3-7.7) k/uL Sodium (137-145) mmol/L Potassium (3.5-5.1) mmol/L Chloride (98-107) mmol/L BUN (9-20) mg/dL Glucose (74-99) mg/dL POC Glucose (mg/dL) 221 H 213 H (70-110) mg/dL Calcium (8.4-10.2) mg/dL Crossmatch See Detail 11/25/22 11/25/22 11/25/22 Range/Units 06:02 09:55 09:55 WBC 20.6 H (3.8-10.6) k/uL RBC 2.21 L (4.30-5.90) m/uL Hgb 6.8 L* (13.0-17.5) gm/dL Hct 20.8 L (39.0-53.0) % RDW 18.4 H (11.5-15.5) % Plt Count 149 L (150-450) k/uL Neutrophils # 18.4 H (1.3-7.7) k/uL Sodium 135 L (137-145) mmol/L Potassium 5.4 H (3.5-5.1) mmol/L Chloride 111 H (98-107) mmol/L BUN 34 H (9-20) mg/dL Glucose 133 H (74-99) mg/dL POC Glucose (mg/dL) 170 H (70-110) mg/dL Calcium 7.4 L (8.4-10.2) mg/dL Crossmatch 11/25/22 Range/Units 11:34 WBC (3.8-10.6) k/uL RBC (4.30-5.90) m/uL Hgb (13.0-17.5) gm/dL Hct (39.0-53.0) % RDW (11.5-15.5) % Plt Count (150-450) k/uL Neutrophils # (1.3-7.7) k/uL Sodium (137-145) mmol/L Potassium (3.5-5.1) mmol/L Chloride (98-107) mmol/L BUN (9-20) mg/dL Glucose (74-99) mg/dL POC Glucose (mg/dL) 183 H (70-110) mg/dL Calcium (8.4-10.2) mg/dL Crossmatch Microbiology - Last 24 Hours (Table) 11/23/22 06:28 Blood Culture - Preliminary Blood No Growth after 48 hours 11/23/22 06:19 Blood Culture - Preliminary Blood No Growth after 48 hours 11/07/22 21:50 Stool Culture - Final Stool Assessment and Plan Plan: Assessment: 1. Acute kidney injury mostly prerenal secondary to acute blood loss anemia and urinary retention. Renal function stable. Creatinine 1.25 today. Patient received IV contrast on 11/23/2022. Monitor for contrast-induced acute kidney injury. 2. Chronic kidney disease stage II with baseline creatinine 11.1. 3. Urinary retention. Has Jo catheter. On Flomax. 4. Lower extremity edema maintained on Lasix. 5. Hyperkalemia secondary to GI bleed and acidosis. Better. 6. GI bleed status post blood transfusion this admission. CAT scan showed large intramuscular hematoma. Hemoglobin 6.8 today. Surgery following. 7. Metabolic acidosis secondary to acute kidney injury and GI losses maintained on oral bicarbonate. Improved. 8. Hypomagnesemia from diuresis. Plan: Maintain IV Lasix 40 mg once daily. Maintain lokelma 10 g once daily. Monitor hemoglobin and transfuse as needed. Defer to primary and surgery team. Avoid nephrotoxins. Replace magnesium. Repeat labs in the morning.
[2022-11-25] MEDS ORDERED: IV FLUID CONTINUATION 1,000 ML IV ONE (13:30)
[2022-11-25] MEDS ORDERED: LIDOCAINE 1% INJ 10MG/ML (30 ML VIAL-PF) SQ ONE (13:40)
[2022-11-25] MEDS ORDERED: IOPAMIDOL-370 100ML BTL INJ ONE (14:03)
--- NOTE | 2022-11-25 14:18 | P.PN ---
Subjective Progress Note Date: 11/25/22 Principal diagnosis: Covid 19 Patient is a 62-year-old male who is unvaccinated for COVID-19 patient was brought into the ER for evaluation of weakness no energy mention the patient was not able to get stand up and go to the bathroom patient has been dealing with the diarrhea off and on for couple of weeks, patient was noticed to have a positive covid test, however the patient was not hypoxic and CT abdominal pelvis with few bibasilar patchy groundglass opacity representing atelectasis and no evidence of colitis. Patient did have a drop in his hemoglobin and underwent a CT angiogram that demonstrated a large intramuscular hematoma in the left iliac is muscle in the retroperitoneum. On today's evaluation that is 11/25/2022, the patient remains to be afebrile, the patient is breathing comfortably on room air, The patient denies chest pain , the patient did have mild cough but no sputum, the patient did have some nausea but no vomiting abdominal pain has decreased in intensity and no diarrhea Objective - Vital Signs Vital signs: Vital Signs Temp 97.9 F 11/25/22 08:00 Pulse 64 11/25/22 08:00 Resp 18 11/25/22 08:00 BP 112/72 11/25/22 08:00 Pulse Ox 95 11/25/22 08:00 FiO2 Intake & Output 11/24/22 11/25/22 11/25/22 18:59 06:59 18:59 Intake Total 120 Output Total 2300 625 400 Balance -2180 625 -400 Weight 119 kg Intake: Oral 120 Output: Urine 2300 625 400 Other: Voiding Method Indwelling Catheter Indwelling Catheter Indwelling Catheter # Bowel Movements 1 - Exam GENERAL DESCRIPTION: An elderly male lying in bed in no distress RESPIRATORY SYSTEM: Unlabored breathing , decreased breath sounds at bases HEART: S1 S2 regular rate and rhythm , ABDOMEN: Soft , no tenderness EXTREMITIES: No edema feet - Labs CBC & Chem 7: 11/25/22 09:55 11/25/22 09:55 Labs: Abnormal Lab Results - Last 24 Hours (Table) 11/23/22 11/24/22 11/24/22 Range/Units 07:44 16:53 20:05 WBC (3.8-10.6) k/uL RBC (4.30-5.90) m/uL Hgb (13.0-17.5) gm/dL Hct (39.0-53.0) % RDW (11.5-15.5) % Plt Count (150-450) k/uL Neutrophils # (1.3-7.7) k/uL Sodium (137-145) mmol/L Potassium (3.5-5.1) mmol/L Chloride (98-107) mmol/L BUN (9-20) mg/dL Glucose (74-99) mg/dL POC Glucose (mg/dL) 221 H 213 H (70-110) mg/dL Calcium (8.4-10.2) mg/dL Crossmatch See Detail 11/25/22 11/25/22 11/25/22 Range/Units 06:02 09:55 09:55 WBC 20.6 H (3.8-10.6) k/uL RBC 2.21 L (4.30-5.90) m/uL Hgb 6.8 L* (13.0-17.5) gm/dL Hct 20.8 L (39.0-53.0) % RDW 18.4 H (11.5-15.5) % Plt Count 149 L (150-450) k/uL Neutrophils # 18.4 H (1.3-7.7) k/uL Sodium 135 L (137-145) mmol/L Potassium 5.4 H (3.5-5.1) mmol/L Chloride 111 H (98-107) mmol/L BUN 34 H (9-20) mg/dL Glucose 133 H (74-99) mg/dL POC Glucose (mg/dL) 170 H (70-110) mg/dL Calcium 7.4 L (8.4-10.2) mg/dL Crossmatch 11/25/22 Range/Units 11:34 WBC (3.8-10.6) k/uL RBC (4.30-5.90) m/uL Hgb (13.0-17.5) gm/dL Hct (39.0-53.0) % RDW (11.5-15.5) % Plt Count (150-450) k/uL Neutrophils # (1.3-7.7) k/uL Sodium (137-145) mmol/L Potassium (3.5-5.1) mmol/L Chloride (98-107) mmol/L BUN (9-20) mg/dL Glucose (74-99) mg/dL POC Glucose (mg/dL) 183 H (70-110) mg/dL Calcium (8.4-10.2) mg/dL Crossmatch Microbiology - Last 24 Hours (Table) 11/23/22 06:28 Blood Culture - Preliminary Blood No Growth after 48 hours 11/23/22 06:19 Blood Culture - Preliminary Blood No Growth after 48 hours 11/07/22 21:50 Stool Culture - Final Stool Assessment and Plan (1) COVID-19 Current Visit: Yes Status: Acute Priority: High Code(s): U07.1 - COVID-19 SNOMED Code(s): 175775369 (2) Diarrhea Current Visit: Yes Status: Acute Priority: High Code(s): R19.7 - DIARRHEA, UNSPECIFIED SNOMED Code(s): 90255801 Plan: 1patient present to hospital generalized weakness which is likely multifactorial could be related to his diarrhea has not patient did have significant diarrhea and evidence of prerenal status was low potassium, stool for C. diff is negative stool cultures has been obtained and currently pending, patient to continue Questran and advised to increase his probiotic and yogurt intake 2patient with a low-grade fever, the patient did have elevated pro calcitonin, CT angiogram of the chest was negative for PE however did shows right lower lobe infiltrate suspicious for pneumonia 3-patient fever has resolved, patient has received adequate antibiotic therapy for underlying pneumonia and Rocephin was discontinued 11/20/2022 4patient did have a abnormal MRI of the cervical spine as well as lumbar spine with a questionable discitis reported by radiologist however the patient did have normal sed rate and a CRP 2, patient is currently being monitor closely off antibiotic therapy to increase the yield of any culture to be done at the time of surgery . 5leukocytosis is more likely steroid related and now with evidence of muscle hematoma as well as retroperitoneal hematoma and the patient is being monitored by general surgery and vascular surgery, currently waiting for Tali filter placement, we will continue to monitor the patient closely off antibiotic therapy Time with Patient: Less than 30
--- NOTE | 2022-11-25 14:46 | P.OP ---
Date of Procedure: 11/25/22 Description of Procedure: Preoperative diagnosis: Retroperitoneal bleed, inability to anticoagulate, DVT Postoperative diagnosis: Same Procedure: #1 ultrasound-guided right common femoral vein accessed #2 iliofemoral venogram #3 venacavogram Number for placement of IVC filter Surgeon: Sherita Jo D.O. EBL: Less than 5 mL IV fluids: See records Urine output: Not measured Drains: None Complications: None immediately apparent Condition: Stable to recovery Operative indication and findings: Patient is a 62-year-old male with multiple medical issues and recently diagnosed with DVT subsequently placed on anticoagulation was found to have significant hemoglobin drop and large retroperitoneal hematoma. He is also preparing for surgical intervention and a filter was requested. Wrist and benefits of the filter were discussed. The patient seemingly understood and is willing to proceed. Procedure in detail: Patient was taken to the special suite and placed in supine position. Bilateral groins are prepped and draped in usual sterile fashion. A preprocedure timeout was performed, all parties are in agreement. Using ultrasound, the right common femoral vein was identified and found be patent and compressible. Permanent images stored. The ultrasound was utilized and after appropriate anesthetization of the skin, the vein was accessed. Seldinger technique was used to place a 6-Uzbek sheath. A right iliofemoral venogram was performed showing no evidence of thrombus and widely patent iliac and distal vena cava. Catheters and wires were used to access the inferior vena cava and a femoral approach [place] filter was placed in standard fashion after venacavogram confirming location of the renal veins. The filter was deployed in standard fashion. Post procedure picture was obtained showing adequate placement. The catheter was then removed and manual pressure was held until h emostasis was adequate. The patient tolerated the procedure well.
[2022-11-25 16:56] LABS: Glucose,Whole Blood 245 mg/dL (70-110)
[2022-11-25] MEDS: TAMSULOSIN 0.4 MG CAP.ER.24H PO SCH (17:19)
[2022-11-25] MEDS: MAGNESIUM SULFATE-D5W PMX 1 GM in DEXTROSE/WATER 1 100ML.BAG IVPB SCH ×2 (17:29→19:24)
[2022-11-25 20:33] LABS: Glucose,Whole Blood 331 mg/dL (70-110)
[2022-11-25] MEDS: LACTATED RINGERS 1,000 ML IV SCH (20:38)
[2022-11-25] MEDS: MELATONIN 3 MG TABLET PO SCH (20:50)
[2022-11-26] MEDS: DEXAMETHASONE SOD PHOSPHATE 4 MG/ML 1 ML VIAL IVP SCH ×5 (00:39→23:19)
[2022-11-26 06:21] LABS: Glucose,Whole Blood 170 mg/dL (70-110)
[2022-11-26] MEDS: LEVOTHYROXINE 50 MCG TAB PO SCH (06:58)
[2022-11-26] MEDS ORDERED: HYDROmorphone 0.5 MG/0.5 ML SYRINGE IVP PRN (07:00)
[2022-11-26] MEDS: INSULIN ASPART (NovoLOG) 100 UNIT/ML VIAL SQ SCH ×4 (07:01→21:11)
--- NOTE | 2022-11-26 08:39 | P.PN ---
Progress Note - Text Progress Note Date: 11/26/22 S: Pt s/e no issues. States his legs and arms seem to be moving somewhat better today. He is hungry but NPO. Denies any other sx. O: VSS, Afeb, AOX3 NAD Exam stable AP: 62yo male C5-7 severe stenosis with spondylosis UE and LE weakness, L3-4 likely osteodiscitis, LBP -Await AM labs for determination of OR today vs postpone -Cont with [facility]irm[facility] medical management
[2022-11-26] MEDS: MAGNESIUM OXIDE 400 MG TAB PO SCH (08:58)
[2022-11-26] MEDS: CHOLESTYRAMINE (WITH SUGAR) 4 GM PACKET PO SCH ×3 (08:58→15:50)
[2022-11-26] MEDS: PANTOPRAZOLE 40 MG/10 ML VIAL IVP SCH ×2 (08:58→21:11)
[2022-11-26] MEDS: FLUoxetine HCL 20 MG CAP PO SCH (08:59)
[2022-11-26] MEDS: CHOLECALCIFEROL 25 MCG (1000 IU) TABLET PO SCH (08:59)
[2022-11-26] MEDS: ZINC SULFATE 220 MG CAP PO SCH (08:59)
[2022-11-26] MEDS: CALCIUM CARBONATE 500 MG CHEWABLE PO SCH ×3 (08:59→21:12)
[2022-11-26] MEDS: DILTIAZEM ORAL 30 MG TAB PO SCH ×3 (08:59→21:12)
[2022-11-26] MEDS: SODIUM BICARBONATE TAB 650 MG TAB PO SCH ×3 (08:59→21:12)
[2022-11-26] MEDS: FOLIC ACID 1 MG TAB PO SCH (08:59)
[2022-11-26] MEDS: PYRIDOXINE 50 MG TAB PO SCH ×2 (09:00→21:12)
[2022-11-26] MEDS: THIAMINE 100 MG TAB PO SCH (09:00)
[2022-11-26] MEDS: ASCORBIC ACID 500 MG TAB PO SCH ×2 (09:00→21:12)
[2022-11-26] MEDS: FUROSEMIDE 10 MG/ML 4 ML VIAL IV SCH (09:00)
[2022-11-26] MEDS: CYANOCOBALAMIN 1,000 MCG/ML 1 ML VIAL IM SCH (09:01)
[2022-11-26] MEDS: SODIUM ZIRCONIUM CYCLOSILICATE 10 GM PACKET PO SCH (09:03)
[2022-11-26 09:30] LABS: Anisocytosis Slight; Basophils % (A) 0 %; Eosinophils % (A) 0 %; HCT 22.9 % (39.0-53.0); HGB 7.6 gm/dL (13.0-17.5); Hypochromasia Slight; Lymphocytes # (A) 1.3 k/uL (1.0-4.8); Lymphocytes % (A) 6 %; MCH 31.5 pg (25.0-35.0); MCHC 33.3 g/dL (31.0-37.0); MCV 94.6 fL (80.0-100.0); Macrocytosis Slight; Mean Platelet Volume 9.5; Monocytes # (A) 0.9 k/uL (0-1.0); Monocytes % (A) 4 %; Neutrophils # (A) 20.1 k/uL (1.3-7.7); Neutrophils % (A) 90 %; Platelet Count 141 k/uL (150-450); RBC 2.42 m/uL (4.30-5.90); RDW 18.8 % (11.5-15.5); WBC 22.3 k/uL (3.8-10.6)
[2022-11-26 09:49] LABS: Calcium 7.2 mg/dL (8.4-10.2); Magnesium 1.9 mg/dL (1.6-2.3); Potassium 5.3 mmol/L (3.5-5.1); Total Bilirubin 0.4 mg/dL (0.2-1.3); Total Protein 4.1 g/dL (6.3-8.2)
--- NOTE | 2022-11-26 11:07 | P.PN ---
Subjective Patient is seen in follow-up for acute kidney injury on chronic kidney disease. Renal function fairly stable. Hemoglobin 7.6 today. Denies any active bleeding. Has a Jo catheter for urinary retention. Nonoliguric. Vital signs are stable. General: No acute distress. HEENT: Head exam is unremarkable. LUNGS: Breath sounds decreased. HEART: Rate and Rhythm are regular. ABDOMEN: Soft, no distention. EXTREMITITES: 1+ edema. Objective - Vital Signs Vital signs: Vital Signs Temp 98.0 F 11/26/22 08:00 Pulse 72 11/26/22 10:00 Resp 18 11/26/22 10:00 BP 117/76 11/26/22 10:00 Pulse Ox 95 11/26/22 10:00 FiO2 Intake & Output 11/25/22 11/26/22 11/26/22 18:59 06:59 18:59 Intake Total 570 0 Output Total 400 600 Balance 170 -600 0 Weight 118.5 kg Intake: IV 50 Oral 240 0 Blood Product 280 Rc Pheresis 2 As3 Unit 280 [id number] Output: Urine 400 600 Other: Voiding Method Indwelling Catheter Indwelling Catheter Indwelling Catheter - Labs CBC & Chem 7: 11/26/22 08:53 11/26/22 09:22 Labs: Abnormal Lab Results - Last 24 Hours (Table) 11/23/22 11/25/22 11/25/22 Range/Units 07:44 09:55 09:55 WBC 20.6 H (3.8-10.6) k/uL RBC 2.21 L (4.30-5.90) m/uL Hgb 6.8 L* (13.0-17.5) gm/dL Hct 20.8 L (39.0-53.0) % RDW 18.4 H (11.5-15.5) % Plt Count 149 L (150-450) k/uL Neutrophils # 18.4 H (1.3-7.7) k/uL Sodium 135 L (137-145) mmol/L Potassium 5.4 H (3.5-5.1) mmol/L Chloride 111 H (98-107) mmol/L BUN 34 H (9-20) mg/dL Glucose 133 H (74-99) mg/dL POC Glucose (mg/dL) (70-110) mg/dL Calcium 7.4 L (8.4-10.2) mg/dL AST (17-59) U/L Total Protein (6.3-8.2) g/dL Albumin (3.5-5.0) g/dL Crossmatch See Detail 11/25/22 11/25/22 11/25/22 Range/Units 11:34 16:55 20:32 WBC (3.8-10.6) k/uL RBC (4.30-5.90) m/uL Hgb (13.0-17.5) gm/dL Hct (39.0-53.0) % RDW (11.5-15.5) % Plt Count (150-450) k/uL Neutrophils # (1.3-7.7) k/uL Sodium (137-145) mmol/L Potassium (3.5-5.1) mmol/L Chloride (98-107) mmol/L BUN (9-20) mg/dL Glucose (74-99) mg/dL POC Glucose (mg/dL) 183 H 245 H 331 H (70-110) mg/dL Calcium (8.4-10.2) mg/dL AST (17-59) U/L Total Protein (6.3-8.2) g/dL Albumin (3.5-5.0) g/dL Crossmatch 11/26/22 11/26/22 11/26/22 Range/Units 06:19 08:53 09:22 WBC 22.3 H (3.8-10.6) k/uL RBC 2.42 L (4.30-5.90) m/uL Hgb 7.6 L (13.0-17.5) gm/dL Hct 22.9 L (39.0-53.0) % RDW 18.8 H (11.5-15.5) % Plt Count 141 L (150-450) k/uL Neutrophils # 20.1 H (1.3-7.7) k/uL Sodium 136 L (137-145) mmol/L Potassium 5.3 H (3.5-5.1) mmol/L Chloride 111 H (98-107) mmol/L BUN 32 H (9-20) mg/dL Glucose 125 H (74-99) mg/dL POC Glucose (mg/dL) 170 H (70-110) mg/dL Calcium 7.2 L (8.4-10.2) mg/dL AST 16 L (17-59) U/L Total Protein 4.1 L (6.3-8.2) g/dL Albumin 2.0 L (3.5-5.0) g/dL Crossmatch Microbiology - Last 24 Hours (Table) 11/23/22 06:28 Blood Culture - Preliminary Blood No Growth after 72 hours 11/23/22 06:19 Blood Culture - Preliminary Blood No Growth after 72 hours Assessment and Plan Plan: Assessment: 1. Acute kidney injury mostly prerenal secondary to acute blood loss anemia and urinary retention. Renal function stable. Creatinine 1.23 today. Patient received IV contrast on 11/23/2022. Monitor for contrast-induced acute kidney injury. 2. Chronic kidney disease stage II with baseline creatinine 1-1.1. 3. Urinary retention. Has Jo catheter. On Flomax. 4. Lower extremity edema maintained on Lasix. Better. 5. Hyperkalemia secondary to GI bleed and acidosis. Stable. 6. GI bleed status post blood transfusion this admission. CAT scan showed large intramuscular hematoma. Hemoglobin 7.6 today. Surgery following. 7. Metabolic acidosis secondary to acute kidney injury and GI losses maintained on oral bicarbonate. Improved. 8. Hypomagnesemia from diuresis. Replaced. Better. Plan: Maintain IV Lasix 40 mg once daily. Maintain lokelma 10 g once daily. Monitor hemoglobin and transfuse as needed. Defer to primary and surgery team. Avoid nephrotoxins. Repeat labs in the morning.
[2022-11-26 11:51] LABS: Glucose,Whole Blood 161 mg/dL (70-110)
--- NOTE | 2022-11-26 13:12 | P.PN ---
Subjective Progress Note Date: 11/26/22 CHIEF COMPLAINT: Diarrhea HISTORY OF PRESENT ILLNESS: Surgical service following regards to patient's ret roperitoneal bleed. Patient denies any abdominal pain or back pain. He received 1 unit of blood yesterday and hemoglobin went up from 6.8-7.6. His surgery for the lumbar spine was canceled for today. He denies any nausea or vomiting. Tolerating diet. He is status post IVC filter placement. WBC is 22.3 hemoglobin 6.8 up to 7.6 platelet 141 signs 136 potassium is 5.3 creatinine is 1.23 PHYSICAL EXAM: VITAL SIGNS: Reviewed. GENERAL: Well-developed in no acute distress. HEENT: No sclera icterus. Extraocular movements grossly intact. Moist buccal mucosa. Head is atraumatic, normocephalic. ABDOMEN: Soft. Nondistended. Nontender. NEUROLOGIC: Alert and oriented. Cranial nerves II through XII grossly intact. Skin: No evidence of ecchymosis in the back or abdomen. ASSESSMENT: 1. Left retroperitoneal hematoma 2. Large intramuscular hematoma of the left iliacus muscle 3. Acute blood loss anemia secondary to above 4. Discitis cervical and lumbar spine PLAN: -No surgical intervention planned -Continue supportive care -Continue to hold anticoagulation -Continue to monitor hemoglobin -Continue regular diet Physician Race Starter note has been reviewed by physician. Signing provider agrees with the documented findings, assessment, and plan of care. Objective - Vital Signs Vital signs: Vital Signs Temp 98.0 F 11/26/22 11:58 Pulse 65 11/26/22 11:58 Resp 18 11/26/22 11:58 BP 125/58 11/26/22 11:58 Pulse Ox 97 11/26/22 11:58 FiO2 Intake & Output 11/25/22 11/26/22 11/26/22 18:59 06:59 18:59 Intake Total 570 0 Output Total 083 708 4415 Balance 170 -600 -1350 Weight 118.5 kg Intake: IV 50 Oral 240 0 Blood Product 280 Rc Pheresis 2 As3 Unit 280 [id number] Output: Urine 246 048 5479 Other: Voiding Method Indwelling Catheter Indwelling Catheter Indwelling Catheter - Labs CBC & Chem 7: 11/26/22 08:53 11/26/22 09:22 Labs: Abnormal Lab Results - Last 24 Hours (Table) 12/11/25/22 11/25/22 Range/Units 07:44 16:55 20:32 WBC (3.8-10.6) k/uL RBC (4.30-5.90) m/uL Hgb (13.0-17.5) gm/dL Hct (39.0-53.0) % RDW (11.5-15.5) % Plt Count (150-450) k/uL Neutrophils # (1.3-7.7) k/uL Sodium (137-145) mmol/L Potassium (3.5-5.1) mmol/L Chloride (98-107) mmol/L BUN (9-20) mg/dL Glucose (74-99) mg/dL POC Glucose (mg/dL) 245 H 331 H (70-110) mg/dL Calcium (8.4-10.2) mg/dL AST (17-59) U/L Total Protein (6.3-8.2) g/dL Albumin (3.5-5.0) g/dL Crossmatch See Detail 11/26/22 11/26/22 11/26/22 Range/Units 06:19 08:53 09:22 WBC 22.3 H (3.8-10.6) k/uL RBC 2.42 L (4.30-5.90) m/uL Hgb 7.6 L (13.0-17.5) gm/dL Hct 22.9 L (39.0-53.0) % RDW 18.8 H (11.5-15.5) % Plt Count 141 L (150-450) k/uL Neutrophils # 20.1 H (1.3-7.7) k/uL Sodium 136 L (137-145) mmol/L Potassium 5.3 H (3.5-5.1) mmol/L Chloride 111 H (98-107) mmol/L BUN 32 H (9-20) mg/dL Glucose 125 H (74-99) mg/dL POC Glucose (mg/dL) 170 H (70-110) mg/dL Calcium 7.2 L (8.4-10.2) mg/dL AST 16 L (17-59) U/L Total Protein 4.1 L (6.3-8.2) g/dL Albumin 2.0 L (3.5-5.0) g/dL Crossmatch 11/26/22 Range/Units 11:49 WBC (3.8-10.6) k/uL RBC (4.30-5.90) m/uL Hgb (13.0-17.5) gm/dL Hct (39.0-53.0) % RDW (11.5-15.5) % Plt Count (150-450) k/uL Neutrophils # (1.3-7.7) k/uL Sodium (137-145) mmol/L Potassium (3.5-5.1) mmol/L Chloride (98-107) mmol/L BUN (9-20) mg/dL Glucose (74-99) mg/dL POC Glucose (mg/dL) 161 H (70-110) mg/dL Calcium (8.4-10.2) mg/dL AST (17-59) U/L Total Protein (6.3-8.2) g/dL Albumin (3.5-5.0) g/dL Crossmatch Microbiology - Last 24 Hours (Table) 11/23/22 06:28 Blood Culture - Preliminary Blood No Growth after 72 hours 11/23/22 06:19 Blood Culture - Preliminary Blood No Growth after 72 hours
--- NOTE | 2022-11-26 14:41 | P.PN ---
Subjective Progress Note Date: 11/26/22 Principal diagnosis: Covid 19 Patient is a 62-year-old male who is unvaccinated for COVID-19 patient was brought into the ER for evaluation of weakness no energy mention the patient was not able to get stand up and go to the bathroom patient has been dealing with the diarrhea off and on for couple of weeks, patient was noticed to have a positive covid test, however the patient was not hypoxic and CT abdominal pelvis with few bibasilar patchy groundglass opacity representing atelectasis and no evidence of colitis. Patient did have a drop in his hemoglobin and underwent a CT angiogram that demonstrated a large intramuscular hematoma in the left iliac is muscle in the retroperitoneum. Patient is status post [place] filter placement on 11/25/2022 On today's evaluation that is 11/26/2022, the patient continues to be afebrile, the patient is breathing comfortably on room air, The patient denies chest pain , the patient did have mild dry cough, the patient denies nausea no vomiting abdominal pain has decreased in intensity and no diarrhea, feeling better Objective - Vital Signs Vital signs: Vital Signs Temp 98.0 F 11/26/22 11:58 Pulse 65 11/26/22 11:58 Resp 18 11/26/22 11:58 BP 125/58 11/26/22 11:58 Pulse Ox 97 11/26/22 11:58 FiO2 Intake & Output 11/25/22 11/26/22 11/26/22 18:59 06:59 18:59 Intake Total 570 180 Output Total 026 120 1903 Balance 170 -600 -1170 Weight 118.5 kg Intake: IV 50 Oral 240 180 Blood Product 280 Rc Pheresis 2 As3 Unit 280 [id number] Output: Urine 380 871 0666 Other: Voiding Method Indwelling Catheter Indwelling Catheter Indwelling Catheter - Exam GENERAL DESCRIPTION: An elderly male lying in bed in no distress RESPIRATORY SYSTEM: Unlabored breathing , decreased breath sounds at bases HEART: S1 S2 regular rate and rhythm , ABDOMEN: Soft , no tenderness EXTREMITIES: No edema feet - Labs CBC & Chem 7: 11/26/22 08:53 11/26/22 09:22 Labs: Abnormal Lab Results - Last 24 Hours (Table) 11/23/22 11/25/22 11/25/22 Range/Units 07:44 16:55 20:32 WBC (3.8-10.6) k/uL RBC (4.30-5.90) m/uL Hgb (13.0-17.5) gm/dL Hct (39.0-53.0) % RDW (11.5-15.5) % Plt Count (150-450) k/uL Neutrophils # (1.3-7.7) k/uL Sodium (137-145) mmol/L Potassium (3.5-5.1) mmol/L Chloride (98-107) mmol/L BUN (9-20) mg/dL Glucose (74-99) mg/dL POC Glucose (mg/dL) 245 H 331 H (70-110) mg/dL Calcium (8.4-10.2) mg/dL AST (17-59) U/L Total Protein (6.3-8.2) g/dL Albumin (3.5-5.0) g/dL Crossmatch See Detail 11/26/22 11/26/22 11/26/22 Range/Units 06:19 08:53 09:22 WBC 22.3 H (3.8-10.6) k/uL RBC 2.42 L (4.30-5.90) m/uL Hgb 7.6 L (13.0-17.5) gm/dL Hct 22.9 L (39.0-53.0) % RDW 18.8 H (11.5-15.5) % Plt Count 141 L (150-450) k/uL Neutrophils # 20.1 H (1.3-7.7) k/uL Sodium 136 L (137-145) mmol/L Potassium 5.3 H (3.5-5.1) mmol/L Chloride 111 H (98-107) mmol/L BUN 32 H (9-20) mg/dL Glucose 125 H (74-99) mg/dL POC Glucose (mg/dL) 170 H (70-110) mg/dL Calcium 7.2 L (8.4-10.2) mg/dL AST 16 L (17-59) U/L Total Protein 4.1 L (6.3-8.2) g/dL Albumin 2.0 L (3.5-5.0) g/dL Crossmatch 11/26/22 Range/Units 11:49 WBC (3.8-10.6) k/uL RBC (4.30-5.90) m/uL Hgb (13.0-17.5) gm/dL Hct (39.0-53.0) % RDW (11.5-15.5) % Plt Count (150-450) k/uL Neutrophils # (1.3-7.7) k/uL Sodium (137-145) mmol/L Potassium (3.5-5.1) mmol/L Chloride (98-107) mmol/L BUN (9-20) mg/dL Glucose (74-99) mg/dL POC Glucose (mg/dL) 161 H (70-110) mg/dL Calcium (8.4-10.2) mg/dL AST (17-59) U/L Total Protein (6.3-8.2) g/dL Albumin (3.5-5.0) g/dL Crossmatch Microbiology - Last 24 Hours (Table) 11/23/22 06:28 Blood Culture - Preliminary Blood No Growth after 72 hours 11/23/22 06:19 Blood Culture - Preliminary Blood No Growth after 72 hours Assessment and Plan (1) COVID-19 Current Visit: Yes Status: Acute Priority: High Code(s): U07.1 - COVID-19 SNOMED Code(s): 154957632 (2) Diarrhea Current Visit: Yes Status: Acute Priority: High Code(s): R19.7 - DIARRHEA, UNSPECIFIED SNOMED Code(s): 01656891 Plan: 1patient did have a abnormal MRI of the cervical spine as well as lumbar spine with a questionable discitis reported by radiologist however the patient did have normal sed rate and a CRP 2, patient is currently being monitor closely off antibiotic therapy to increase the yield of any culture to be done at the time of surgery . Apparently the patient is not stable to undergo surgery per orthopedics will consult IR for possible CT-guided aspirate of the affected lumbar spine for microbiological diagnosis 2leukocytosis is more likely steroid related and now with evidence of muscle hematoma as well as retroperitoneal hematoma and the patient is status post [place] filter placement Time with Patient: Less than 30
[2022-11-26] MEDS: TAMSULOSIN 0.4 MG CAP.ER.24H PO SCH (15:50)
[2022-11-26 16:42] LABS: Glucose,Whole Blood 253 mg/dL (70-110)
[2022-11-26] MEDS: LACTATED RINGERS 1,000 ML IV SCH (16:59)
[2022-11-26 20:35] LABS: Glucose,Whole Blood 161 mg/dL (70-110)
[2022-11-26] MEDS: MELATONIN 3 MG TABLET PO SCH (21:12)
--- NOTE | 2022-11-27 01:05 | P.PN ---
Subjective Progress Note Date: 11/24/22 62-year-old male in the emergency department for diarrhea. She notes diarrhea starting and he asked progressively gotten worse. He reports he stood up from a chair and had an episode of diarrhea, admits he still maintains bowel function. He has not tried anything for his symptoms. He denies nausea, vomiting, abdominal pain, palpitations, fevers. Denies recent travel or recent antibiotic use. He is scheduled to have his first colonoscopy in january of 2023. Patient had an initial lab work is remarkable for WBC is 11.4, hemoglobin 8.7, INR 1.2, sodium 133, potassium 2.6 lactic acid 2.9, calcium 6.3, magnesium 0.8, lipase 60, COVID positive. I interpreted the following; CT abdomen without contrast remarkable for fluid filled colon without focal wall thickening or surrounding inflammatory changes. Patient was given 2 L fluids, potassium, magnesium and calcium during his course of the ED. 11/08/2022 Patient is seen and evaluated on selective care unit; he went into atrial fibrillation with rapid ventricular response he was transferred to the third [facility]. The patient did not have any symptoms of heart racing or fluttering and no dizziness or lightheadedness and no presyncope or syncope and no symptoms of chest pain or chest discomfort or shortness of breath. No prior history of atrial fibrillation. No history of coronary artery disease or congestive heart failure or cardiac arrhythmia and the patient never seen a dish room worker in the past. Beside that no history of diabetes or hypertension or dyslipidemia. The patient was started initially on Cardizem drip but his pressure did go down and for that reason he was switched into amiodarone IV and subsequently converted to normal sinus mechanism and since then he has been maintaining normal sinus mechanism. Further investigation was performed including CBC and that showed a hemoglobin of 7.7. The patient has no history of bleeding. Beside that he underwent a computed tomography scan of the abdomen and pelvis because of the abdominal discomfort that showed no acute abnormalities. The troponin came in to be slightly elevated likely secondary to tachycardia. The EKG showed sinus rhythm now with no significant ST or T-wave abnormalities. Blood work reveals mild elevation of troponin; Patient has been evaluated by cardiology and recommended to continue with IV fluids, replace electrolytes; IV amiodarone is to be discontinued patient is transition to oral dose daily 11/09/2022 Patient is seen and evaluated in follow-up this morning and continues to feel generalized weakness and continues with loose stools. Per nursing staff when assisting to clean the patient up patient was significantly weak on the right. Patient denied any headache, dizziness, or lightheadedness. Will obtain a CT of the brain and also consult neurology. Recommend PT/OT therapy evaluation for significant weakness. C. diff testing was negative on the stool and will add Imodium and encourage oral intake and advance as tolerated. Patient is maintaining on vitamins and zinc supplements along with subcutaneous heparin with anxiety following closely. Patient denies chest pain or shortness of breath. Afebrile. Recommend a.m. labs as well. 11/10/2022 Patient is seen in follow-up today with multiple medical consultations including cardiology, hematology, infectious disease, and now neurology following. Patient with significant weakness in all upper and lower extremities with neurology undergoing workup recommending aspirin as patient is not on any anticoagulation at this time. Cardiology is following and patient was transitioned back to IV Cardizem although being changed to oral with close monitoring. Magnesium found to be significantly low at 1.2 and will replace per protocol and recommend repeat labs. Hemoglobin is mildly low at 7.4 and undergoing anemia workup with hematology following. Patient with Covid and extreme weakness will need ECF and discharge planning in process. Recommend close monitoring of labs and replace electrolytes per protocol. Patient was started on Imodium as C. diff testing 2 was negative. Patient continues to have loose stools although somewhat improved. Encouraged oral intake and increased activity as tolerated. Recommend PT/OT therapy daily. Patient denies chest pain or shortness of breath. Patient is 97% on room air. Patient will continue on vitamin and zinc supplements with anxiety following closely. Re commend gentle IV hydration. 11/11/2022 Patient is seen and evaluated in follow-up with multiple medical consultations following including infectious disease and neurology. Oncology following underg oing anemia workup. Hemoglobin was found to be 6.5 today and will order 1 unit of PRBC and recommend close monitoring. No active bleeding noted. Patient was started on baby aspirin per neurology and scheduled to undergo MRI of the cervical spine today. Patient continues with significant weakness and will need rehab upon discharge. Patient is maintained on vitamin and zinc supplements and was also being followed by cardiology. Adjustments to medications being done and patient is on oral Cardizem. Will follow-up with repeat labs. Patient is afebrile and denies shortness of breath. Patient clinically appears to be improving. Per nursing staff patient is incontinent of stool in continues to be somewhat loose although less frequent. C. diff testing was negative and stool cultures are negative. Encouraged oral intake. Will discuss with case management about discharge planning to ECF as he will require a Covid hub. 11/12/2022 Patient is seen and evaluated in follow-up today with multiple medical consultations following including infectious disease, cardiology, neurology. Fazal brito's hemoglobin is low again at 6.8 and will give 1 unit. Recommend holding aspirin. Patient did have an elevated d-dimer and CTA was ordered. GI was also consulted for anemia. Patient continues to have incontinence of stool and loose stools and is maintained on Questran and will be given Imodium as needed. Patient continues with generalized weakness and fatigue and also having some lower extremity pain and swelling and have ordered Dopplers of bilateral lower extremities as well. Patient with Covid vitamin and zinc supplements and anticoagulation with subcu heparin. Hematology also following for anemia. Recommend repeat CBC this evening and will transfuse another unit as well. C ardiology following and adjustments to medications being made and patient also being started on low-dose diuretics. Patient is having low-grade temps of 99.3- 99.6 and patient continues to be 95% or above on room air. Blood pressure on the lower side although stable. Stool cultures and C. diff testing have been negative. Patient started on antibiotics per ID recommendations in the form of Zithromax and ceftriaxone. Reviewed iron studies which are low and will give IV iron as well. Electrolytes continue to be low and will replace per protocol. Patient will need ECF once stabilized and discharged 11/13/2022 Patient is seen today with multiple medical consultations following and undergo ing neurological workup and having bilateral upper and lower extremity weakness. Neurology recommends orthopedic consultation which is currently pending. Patient did have some movement in his diarrhea and reports becoming more formed and less frequent. Patient continues to be incontinent of this. Patient being started on antibiotics with anxiety following an also continues to have anemia. GI recommending continuing with hematology workup. Multiple images including MRIs and pending at time. Patient with significant weakness will be going to rehab when stable. A.m. labs are pending. 11/14/2022 This is a pleasant 62 years old male with Covid pneumonia and bacterial pneumonia especially in the right lower lobe. His been covered with Zithromax and ceftriaxone with ID team and pulmonary team on the case. His breathing looks improvement, now much tachypnea or dyspnea. She is complaining of from bilateral upper extremity weakness, MRI ordered by orthopedic team showing spinal stenosis of C5 to C6 with possible osteo-discitis of L3-L4 and orthopedic team R following closely. Also he is on dexamethasone Patient had ultrasound of the legs showing no DVT on the right leg with non-o cclusive thrombosis of the left leg. Hematology team are currently following with and he is patient on subcutaneous heparin. Patient still have diarrhea about 3 times per day yesterday no abdominal pain or vomiting. Patient currently on Zithromax and ceftriaxone, oral Lasix and normal saline 75 mL/h 11/15/2022 Patient Covid pneumonia is improving and he has minimal respiratory symptoms, no dyspnea at rest, patient is not working, no chest pain, occasional coughing, he is saturating well and he continued on treatment with dexamethasone which is helping also has a spine disease as he has C5-C6 stenosis orthopedic team on the case, no surgical intervention Also his continued on Zithromax and ceftriaxone for his pneumonia with ID team on the case. Patient has left leg swelling most likely secondary to nonocclusive DVT however patient could not get anticoagulation because of his severe anemia, hematology input is appreciated, anticoagulation has more risks than benefits. We are going to check occult blood in the stool, hemoglobin today slightly going down 7.3. However anemia workup showing some evidence of anemia of chronic disease patient also with A. fib but no need for intervention for this purpose as her score 0. Primary Health Organisation Manager. 11/16/2022 Patient still has bilateral upper extremity weakness mainly on the right side, thought secondary to C5-C6 is stenosis with no plan for surgical intervention by orthopedic team. Patient also on dexamethasone for Covid pneumonia and Zithromax ceftriaxone for possible bacterial superinfection especially in the right lower lobe. Her satur ation is acceptable. Blood pressure is stable low-normal. There is no evidence of bleeding, occult blood in the stool is negative. Patient has evidence of left DVT, his anemia although severe as most likely secondary to anemia of chronic disease, repeat anemia workup was requested, I discussed the case with hematology team, possibly we will start him on anticoagulation once workup is finished. No need for anticoagulation or aspirin for A. fib per Primary Health Organisation Manager. No need for aspirin also per neurologist. 11/17/2022 Patient awake sitting up in bed looks comfortable. His breathing is improved while continue current antibiotic Patient is still have weakness more the right arm and left arm, Orthopedic team on the case and they recommended MRI of the whole spine which is pending. Also I discussed with the bedside nurse disorder hard collar. He still on heparin drip for his left leg DVT, benefits more than risk. Monitor hemoglobin 11/18/2022 Patient sitting up in bed does not look in distress, he does not have new complaint His been followed by orthopedic team and MRI of the spine is pending for his right upper extremity weakness more on the right side. Other than that his her pneumonia significantly improved and currently he is on ceftriaxone. Also he is on dexamethasone for his Covid infection. Patient is tolerated heparin drip. For his left leg DVT with hematology team recommendation. Hemoglobin today actually improvement 7.9. Patient would benefit from EGD/colonoscopy as an outpatient. Normal saline was discontinued. 11/19/2022 Patient sitting up in bed denies any complaint. He continue on ceftriaxone for right lower lobe pneumonia and dexamethasone for Covid pneumonia. Also he is on heparin drip for left leg DVT, which is mildly swollen compared to the right side. Patient with persistent hyperkalemia with director of quality consulted, patient is started on IV Lasix, and sodium bicarbonate and check renal ultrasound. Orthopedic team following, MRI of the spine pending. 11/20/2022 Patient is currently resting in the bed. Awake alert and oriented 3. Still having right upper extremity weakness. Patient is afebrile otherwise. No complains of chest pain or shortness of breath. Currently on room air. Laboratory data showed WBC 21.8 mg on 0.0 platelets 262 Sodium 133 potassium 5.7, chloride 107 bicarb is 14 BUN 26 and creatinine 1.04 and calcium 7.2 Patient is being continued on heparin drip. On Cardizem by mouth. MRI of the thoracic spine and lumbar spine to be done today. 11/21/2022 Patient is resting in bed. Awake alert and oriented 3. No complaints of chest pain or shortness of breath. Currently on room air. No nausea vomiting or abdominal pain or diarrhea. MRI cervical spine showed possible discitis. Orthopedic surgery is on board. Patient still having the right upper extremity weakness. Otherwise is planning for OR on Wednesday. Laboratory data showed WBC 22.6-year-old 7.5 platelets 266. CRP level is less than 0.5. Patient is being continued on heparin drip for lower extremity DVT. Orthopedic surgery, ID and nephrology is on board. 11/22/2022 Patient is resting in bed. Awake alert and oriented. No complaints of chest pain or shortness of breath. Patient states that he is still having right upper extremity weakness. No complaints of nausea vomiting abdominal pain or diarrhea. Tolerating oral diet. Patient is being continued on heparin drip and is scheduled for cervical surgery on Wednesday. Laboratory data showed WBC 22.9 hemoglobin 7.0 and platelets 254 sodium 132 potassium 5.4 chloride 114 bicarb is 17 BUN 30 and creatinine 1.13 and calcium 7.2. 11/23/2022 Patient is lying in the bed. Awake alert and oriented x3. No complaints of chest pain or shortness of breath. Right upper extremity weakness remains the s estuardo. Patient otherwise reported to have abdominal discomfort and back discomfort. Hemoglobin dropped down to 5.9 this morning. Drainage of PRBC transfusion was ordered. CT of the abdomen pelvis was ordered without retroperitoneal bleed. Otherwise blood pressures 129/85 pulse is 74 respirate 18 pulse ox 94% on room air. Will hold aspirin if there is any signs of retroperitoneal bleed. Patient is otherwise scheduled for cervical surgery tomorrow. 11/24/2022 Patient is currently resting in the bed. Awake alert and oriented x3. No complaints of chest pain or shortness of breath. Left lower abdominal discomfort is improved. Hemoglobin is stable. Vascular surgery has seen the patient is planning for IVC filter placement. Heparin is on hold due to retroperitoneal bleed. Laboratory data showed WBC 25.6 hemoglobin 7.1 and platelets 159 sodium 131 potassium 5.7 chloride 112 bicarb is 37 creatinine 1.18 and calcium 7.0. Nephrology, ID and vascular surgery is on board. Current medications reviewed. Objective - Vital Signs Vital signs: Vital Signs Temp 98 F 11/24/22 20:00 Pulse 67 11/24/22 20:00 Resp 18 11/24/22 20:00 BP 111/72 11/24/22 20:00 Pulse Ox 96 11/24/22 20:00 FiO2 Intake & Output 11/24/22 11/24/22 11/25/22 06:59 18:59 06:59 Intake Total 284 120 Output Total 325 2300 Balance -41 -2180 Weight 119 kg Intake: Oral 120 Blood Product 284 Rc Pheresis 2 As3 Unit 284 [id number] Output: Urine 325 2300 Other: Voiding Method Indwelling Catheter Indwelling Catheter # Bowel Movements 1 1 - Exam - Exam -GENERAL: The patient is alert and oriented x3, not in any acute distress. Well developed, well nourished. Generally weak -HEENT: Pupils are round and equally reacting to light. EOMI. No scleral icterus. No conjunctival pallor. Normocephalic, atraumatic. No pharyngeal erythema. No thyromegaly. Dry mucous membranes, mild CARDIOVASCULAR: S1 and S2 present. No murmurs, rubs, or gallops. PULMONARY: Chest is clear to auscultation, no wheezing or crackles. ABDOMEN: Soft, nontender, nondistended, normoactive bowel sounds. No palpable organomegaly. MUSCULOSKELETAL: No joint swelling or deformity. -EXTREMITIES: No cyanosis, clubbing, or pedal edema. left leg swelling NEUROLOGICAL: Gross neurological examination did not reveal any focal deficits. SKIN: No rashes. no petechiae. - Labs CBC & Chem 7: 11/26/22 08:53 11/26/22 09:22 Labs: Abnormal Lab Results - Last 24 Hours (Table) 11/23/22 11/24/22 11/24/22 Range/Units 23:38 06:02 06:27 WBC 30.8 H (3.8-10.6) k/uL RBC 2.48 L (4.30-5.90) m/uL Hgb 7.6 L (13.0-17.5) gm/dL Hct 22.9 L (39.0-53.0) % RDW 17.3 H (11.5-15.5) % Sodium 131 L (137-145) mmol/L Potassium 5.7 H (3.5-5.1) mmol/L Chloride 112 H (98-107) mmol/L Carbon Dioxide 19 L (22-30) mmol/L BUN 37 H (9-20) mg/dL POC Glucose (mg/dL) 132 H (70-110) mg/dL Calcium 7.0 L (8.4-10.2) mg/dL 11/24/22 11/24/22 11/24/22 Range/Units 06:27 12:09 16:53 WBC 25.6 H (3.8-10.6) k/uL RBC 2.32 L (4.30-5.90) m/uL Hgb 7.1 L (13.0-17.5) gm/dL Hct 22.4 L (39.0-53.0) % RDW 17.8 H (11.5-15.5) % Sodium (137-145) mmol/L Potassium (3.5-5.1) mmol/L Chloride (98-107) mmol/L Carbon Dioxide (22-30) mmol/L BUN (9-20) mg/dL POC Glucose (mg/dL) 145 H 221 H (70-110) mg/dL Calcium (8.4-10.2) mg/dL 11/24/22 Range/Units 20:05 WBC (3.8-10.6) k/uL RBC (4.30-5.90) m/uL Hgb (13.0-17.5) gm/dL Hct (39.0-53.0) % RDW (11.5-15.5) % Sodium (137-145) mmol/L Potassium (3.5-5.1) mmol/L Chloride (98-107) mmol/L Carbon Dioxide (22-30) mmol/L BUN (9-20) mg/dL POC Glucose (mg/dL) 213 H (70-110) mg/dL Calcium (8.4-10.2) mg/dL Microbiology - Last 24 Hours (Table) 11/07/22 21:50 Stool Culture - Final Stool 11/23/22 06:28 Blood Culture - Preliminary Blood No Growth after 24 hours 11/23/22 06:19 Blood Culture - Preliminary Blood No Growth after 24 hours Assessment and Plan Assessment: Acute blood loss. hb 5.9 due to retroperitoneal bleed. Denies any hematemesis or melena. 2 units of PRBC was ordered.Hemoglobin is stable now. Bilateral Pneumonia with superimposed gram-negative bacterial infection is suspected mainly in the right lower lobe. Completed antibiotic course. Acute hypoxic respiratory failure. Titrate down to room air.. Sepsis secondary to above Possible discitis as per MRI cervical spine. Hyperkalemia due to urinary retention and acute kidney injury. Improving now. Anemia with vitamin B12 deficiency and currently on IM B12 replacement therapy Elevated troponin, most likely type II. No chest pain, normal LV function Low vitamin B12 and B6 Nonocclusive thrombosis of the left leg Paroxysmal atrial fibrillation no anticoagulation with score of 0 per Cardiolog ist Plan: CT of the abdomen pelvis showed retroperitoneal hemorrhage and intramuscular hematoma. Heparin has been discontinued. Patient was transfused with 2 units of PRBC. Hemoglobin is stable. Vascular surgery was consulted for possible IVC filter placement. Patient completed antibiotic course. Ceftriaxone has been discontinued. Continue with dexamethasone per orthopedic team Continue with vitamin B12 replacement therapy Continue with IV Lasix 40 mg daily and sodium bicarb MRI cervical spine showed possible discitis. Orthopedic surgery was planning for or on Wednesday,.But postponed due to retroperitoneal bleed. Several consultants on the case including neurologist, data processing auditor, dish room worker, GI (signed off, no GI coverage this week), infectious disease team and orthopedic team DVT prophylaxis: Dced heparin drip currently. GI Prophylaxis: Ppi PT/OT: Pending Prognosis is guarded Time with Patient: Greater than 30
--- NOTE | 2022-11-27 01:09 | P.PN ---
Subjective Progress Note Date: 11/25/22 62-year-old male in the emergency department for diarrhea. She notes diarrhea starting and he asked progressively gotten worse. He reports he stood up from a chair and had an episode of diarrhea, admits he still maintains bowel function. He has not tried anything for his symptoms. He denies nausea, vomiting, abdominal pain, palpitations, fevers. Denies recent travel or recent antibiotic use. He is scheduled to have his first colonoscopy in january of 2023. Patient had an initial lab work is remarkable for WBC is 11.4, hemoglobin 8.7, INR 1.2, sodium 133, potassium 2.6 lactic acid 2.9, calcium 6.3, magnesium 0.8, lipase 60, COVID positive. I interpreted the following; CT abdomen without contrast remarkable for fluid filled colon without focal wall thickening or surrounding inflammatory changes. Patient was given 2 L fluids, potassium, magnesium and calcium during his course of the ED. 11/08/2022 Patient is seen and evaluated on selective care unit; he went into atrial fibrillation with rapid ventricular response he was transferred to the [facility]. The patient did not have any symptoms of heart racing or fluttering and no dizziness or lightheadedness and no presyncope or syncope and no symptoms of chest pain or chest discomfort or shortness of breath. No prior history of atrial fibrillation. No history of coronary artery disease or congestive heart failure or cardiac arrhythmia and the patient never seen a amusement equipment operator in the past. Beside that no history of diabetes or hypertension or dyslipidemia. The patient was started initially on Cardizem drip but his pressure did go down and for that reason he was switched into amiodarone IV and subsequently converted to normal sinus mechanism and since then he has been maintaining normal sinus mechanism. Further investigation was performed including CBC and that showed a hemoglobin of 7.7. The patient has no history of bleeding. Beside that he underwent a computed tomography scan of the abdomen and pelvis because of the abdominal discomfort that showed no acute abnormalities. The troponin came in to be slightly elevated likely secondary to tachycardia. The EKG showed sinus rhythm now with no significant ST or T-wave abnormalities. Blood work reveals mild elevation of troponin; Patient has been evaluated by cardiology and recommended to continue with IV fluids, replace electrolytes; IV amiodarone is to be discontinued patient is transition to oral dose daily 11/09/2022 Patient is seen and evaluated in follow-up this morning and continues to feel generalized weakness and continues with loose stools. Per nursing staff when assisting to clean the patient up patient was significantly weak on the right. Patient denied any headache, dizziness, or lightheadedness. Will obtain a CT of the brain and also consult neurology. Recommend PT/OT therapy evaluation for significant weakness. C. diff testing was negative on the stool and will add Imodium and encourage oral intake and advance as tolerated. Patient is maintaining on vitamins and zinc supplements along with subcutaneous heparin with anxiety following closely. Patient denies chest pain or shortness of breath. Afebrile. Recommend a.m. labs as well. 11/10/2022 Patient is seen in follow-up today with multiple medical consultations including cardiology, hematology, infectious disease, and now neurology following. Patient with significant weakness in all upper and lower extremities with neurology undergoing workup recommending aspirin as patient is not on any anticoagulation at this time. Cardiology is following and patient was transitioned back to IV Cardizem although being changed to oral with close monitoring. Magnesium found to be significantly low at 1.2 and will replace per protocol and recommend repeat labs. Hemoglobin is mildly low at 7.4 and undergoing anemia workup with hematology following. Patient with Covid and extreme weakness will need ECF and discharge planning in process. Recommend close monitoring of labs and replace electrolytes per protocol. Patient was started on Imodium as C. diff testing 2 was negative. Patient continues to have loose stools although somewhat improved. Encouraged oral intake and increased activity as tolerated. Recommend PT/OT therapy daily. Patient denies chest pain or shortness of breath. Patient is 97% on room air. Patient will continue on vitamin and zinc supplements with anxiety following closely. Re commend gentle IV hydration. 11/11/2022 Patient is seen and evaluated in follow-up with multiple medical consultations following including infectious disease and neurology. Oncology following underg oing anemia workup. Hemoglobin was found to be 6.5 today and will order 1 unit of PRBC and recommend close monitoring. No active bleeding noted. Patient was started on baby aspirin per neurology and scheduled to undergo MRI of the cervical spine today. Patient continues with significant weakness and will need rehab upon discharge. Patient is maintained on vitamin and zinc supplements and was also being followed by cardiology. Adjustments to medications being done and patient is on oral Cardizem. Will follow-up with repeat labs. Patient is afebrile and denies shortness of breath. Patient clinically appears to be improving. Per nursing staff patient is incontinent of stool in continues to be somewhat loose although less frequent. C. diff testing was negative and stool cultures are negative. Encouraged oral intake. Will discuss with case management about discharge planning to ECF as he will require a Covid hub. 11/12/2022 Patient is seen and evaluated in follow-up today with multiple medical consultations following including infectious disease, cardiology, neurology. Fazal brito's hemoglobin is low again at 6.8 and will give 1 unit. Recommend holding aspirin. Patient did have an elevated d-dimer and CTA was ordered. GI was also consulted for anemia. Patient continues to have incontinence of stool and loose stools and is maintained on Questran and will be given Imodium as needed. Patient continues with generalized weakness and fatigue and also having some lower extremity pain and swelling and have ordered Dopplers of bilateral lower extremities as well. Patient with Covid vitamin and zinc supplements and anticoagulation with subcu heparin. Hematology also following for anemia. Recommend repeat CBC this evening and will transfuse another unit as well. C ardiology following and adjustments to medications being made and patient also being started on low-dose diuretics. Patient is having low-grade temps of 99.3- 99.6 and patient continues to be 95% or above on room air. Blood pressure on the lower side although stable. Stool cultures and C. diff testing have been negative. Patient started on antibiotics per ID recommendations in the form of Zithromax and ceftriaxone. Reviewed iron studies which are low and will give IV iron as well. Electrolytes continue to be low and will replace per protocol. Patient will need ECF once stabilized and discharged 11/13/2022 Patient is seen today with multiple medical consultations following and undergo ing neurological workup and having bilateral upper and lower extremity weakness. Neurology recommends orthopedic consultation which is currently pending. Patient did have some movement in his diarrhea and reports becoming more formed and less frequent. Patient continues to be incontinent of this. Patient being started on antibiotics with anxiety following an also continues to have anemia. GI recommending continuing with hematology workup. Multiple images including MRIs and pending at time. Patient with significant weakness will be going to rehab when stable. A.m. labs are pending. 11/14/2022 This is a pleasant 62 years old male with Covid pneumonia and bacterial pneumonia especially in the right lower lobe. His been covered with Zithromax and ceftriaxone with ID team and pulmonary team on the case. His breathing looks improvement, now much tachypnea or dyspnea. She is complaining of from bilateral upper extremity weakness, MRI ordered by orthopedic team showing spinal stenosis of C5 to C6 with possible osteo-discitis of L3-L4 and orthopedic team R following closely. Also he is on dexamethasone Patient had ultrasound of the legs showing no DVT on the right leg with non-o cclusive thrombosis of the left leg. Hematology team are currently following with and he is patient on subcutaneous heparin. Patient still have diarrhea about 3 times per day yesterday no abdominal pain or vomiting. Patient currently on Zithromax and ceftriaxone, oral Lasix and normal saline 75 mL/h 11/15/2022 Patient Covid pneumonia is improving and he has minimal respiratory symptoms, no dyspnea at rest, patient is not working, no chest pain, occasional coughing, he is saturating well and he continued on treatment with dexamethasone which is helping also has a spine disease as he has C5-C6 stenosis orthopedic team on the case, no surgical intervention Also his continued on Zithromax and ceftriaxone for his pneumonia with ID team on the case. Patient has left leg swelling most likely secondary to nonocclusive DVT however patient could not get anticoagulation because of his severe anemia, hematology input is appreciated, anticoagulation has more risks than benefits. We are going to check occult blood in the stool, hemoglobin today slightly going down 7.3. However anemia workup showing some evidence of anemia of chronic disease patient also with A. fib but no need for intervention for this purpose as her score 0. Commissary Agent. 11/16/2022 Patient still has bilateral upper extremity weakness mainly on the right side, thought secondary to C5-C6 is stenosis with no plan for surgical intervention by orthopedic team. Patient also on dexamethasone for Covid pneumonia and Zithromax ceftriaxone for possible bacterial superinfection especially in the right lower lobe. Her satur ation is acceptable. Blood pressure is stable low-normal. There is no evidence of bleeding, occult blood in the stool is negative. Patient has evidence of left DVT, his anemia although severe as most likely secondary to anemia of chronic disease, repeat anemia workup was requested, I discussed the case with hematology team, possibly we will start him on anticoagulation once workup is finished. No need for anticoagulation or aspirin for A. fib per Commissary Agent. No need for aspirin also per neurologist. 11/17/2022 Patient awake sitting up in bed looks comfortable. His breathing is improved while continue current antibiotic Patient is still have weakness more the right arm and left arm, Orthopedic team on the case and they recommended MRI of the whole spine which is pending. Also I discussed with the bedside nurse disorder hard collar. He still on heparin drip for his left leg DVT, benefits more than risk. Monitor hemoglobin 11/18/2022 Patient sitting up in bed does not look in distress, he does not have new complaint His been followed by orthopedic team and MRI of the spine is pending for his right upper extremity weakness more on the right side. Other than that his her pneumonia significantly improved and currently he is on ceftriaxone. Also he is on dexamethasone for his Covid infection. Patient is tolerated heparin drip. For his left leg DVT with hematology team recommendation. Hemoglobin today actually improvement 7.9. Patient would benefit from EGD/colonoscopy as an outpatient. Normal saline was discontinued. 11/19/2022 Patient sitting up in bed denies any complaint. He continue on ceftriaxone for right lower lobe pneumonia and dexamethasone for Covid pneumonia. Also he is on heparin drip for left leg DVT, which is mildly swollen compared to the right side. Patient with persistent hyperkalemia with hr intern consulted, patient is started on IV Lasix, and sodium bicarbonate and check renal ultrasound. Orthopedic team following, MRI of the spine pending. 11/20/2022 Patient is currently resting in the bed. Awake alert and oriented 3. Still having right upper extremity weakness. Patient is afebrile otherwise. No complains of chest pain or shortness of breath. Currently on room air. Laboratory data showed WBC 21.8 mg on 0.0 platelets 262 Sodium 133 potassium 5.7, chloride 107 bicarb is 14 BUN 26 and creatinine 1.04 and calcium 7.2 Patient is being continued on heparin drip. On Cardizem by mouth. MRI of the thoracic spine and lumbar spine to be done today. 11/21/2022 Patient is resting in bed. Awake alert and oriented 3. No complaints of chest pain or shortness of breath. Currently on room air. No nausea vomiting or abdominal pain or diarrhea. MRI cervical spine showed possible discitis. Orthopedic surgery is on board. Patient still having the right upper extremity weakness. Otherwise is planning for OR on Wednesday. Laboratory data showed WBC 22.6-year-old 7.5 platelets 266. CRP level is less than 0.5. Patient is being continued on heparin drip for lower extremity DVT. Orthopedic surgery, ID and nephrology is on board. 11/22/2022 Patient is resting in bed. Awake alert and oriented. No complaints of chest pain or shortness of breath. Patient states that he is still having right upper extremity weakness. No complaints of nausea vomiting abdominal pain or diarrhea. Tolerating oral diet. Patient is being continued on heparin drip and is scheduled for cervical surgery on Wednesday. Laboratory data showed WBC 22.9 hemoglobin 7.0 and platelets 254 sodium 132 potassium 5.4 chloride 114 bicarb is 17 BUN 30 and creatinine 1.13 and calcium 7.2. 11/23/2022 Patient is lying in the bed. Awake alert and oriented x3. No complaints of chest pain or shortness of breath. Right upper extremity weakness remains the s estuardo. Patient otherwise reported to have abdominal discomfort and back discomfort. Hemoglobin dropped down to 5.9 this morning. Drainage of PRBC transfusion was ordered. CT of the abdomen pelvis was ordered without retroperitoneal bleed. Otherwise blood pressures 129/85 pulse is 74 respirate 18 pulse ox 94% on room air. Will hold aspirin if there is any signs of retroperitoneal bleed. Patient is otherwise scheduled for cervical surgery tomorrow. 11/24/2022 Patient is currently resting in the bed. Awake alert and oriented x3. No complaints of chest pain or shortness of breath. Left lower abdominal discomfort is improved. Hemoglobin is stable. Vascular surgery has seen the patient is planning for IVC filter placement. Heparin is on hold due to retroperitoneal bleed. Laboratory data showed WBC 25.6 hemoglobin 7.1 and platelets 159 sodium 131 potassium 5.7 chloride 112 bicarb is 37 creatinine 1.18 and calcium 7.0. Nephrology, ID and vascular surgery is on board. 11/25/2022 Patient is currently resting in bed. Awake alert and oriented x3. On room air. No complaints of chest pain or shortness of breath. No abdominal pain. No nausea vomiting abdominal pain or diarrhea. Patient is scheduled for IVC filter placement today. Otherwise hemoglobin level is 6.8 and 1 unit of PRBC was ordered. Other laboratory data showed WBC 20.6 hemoglobin 6.8 and platelets 149 sodium 135 potassium 5.4 chloride 101 bicarb is 23 BUN 34 and creatinine 1.25. Magnesium 1.6. Patient is being continued dexamethasone as per orthopedic surgery. Also on IV Lasix. Nephrology and general surgery is on board. Patient was given a dose of Lokelma yesterday. Current medications reviewed. Objective - Vital Signs Vital signs: Vital Signs Temp 98.2 F 11/25/22 15:39 Pulse 67 11/25/22 18:46 Resp 16 11/25/22 16:16 BP 114/75 11/25/22 18:46 Pulse Ox 95 11/25/22 16:16 FiO2 Intake & Output 11/25/22 11/25/22 11/26/22 06:59 18:59 06:59 Intake Total 570 Output Total 625 400 Balance -625 170 Weight 119 kg Intake: IV 50 Oral 240 Blood Product 280 Rc Pheresis 2 As3 Unit 280 [id number] Output: Urine 625 400 Other: Voiding Method Indwelling Catheter Indwelling Catheter - Exam - Exam -GENERAL: The patient is alert and oriented x3, not in any acute distress. Well developed, well nourished. Generally weak -HEENT: Pupils are round and equally reacting to light. EOMI. No scleral icterus. No conjunctival pallor. Normocephalic, atraumatic. No pharyngeal erythema. No thyromegaly. Dry mucous membranes, mild CARDIOVASCULAR: S1 and S2 present. No murmurs, rubs, or gallops. PULMONARY: Chest is clear to auscultation, no wheezing or crackles. ABDOMEN: Soft, nontender, nondistended, normoactive bowel sounds. No palpable organomegaly. MUSCULOSKELETAL: No joint swelling or deformity. -EXTREMITIES: No cyanosis, clubbing, or pedal edema. left leg swelling NEUROLOGICAL: Gross neurological examination did not reveal any focal deficits. SKIN: No rashes. no petechiae. - Labs CBC & Chem 7: 11/26/22 08:53 11/26/22 09:22 Labs: Abnormal Lab Results - Last 24 Hours (Table) 11/23/22 11/25/22 11/25/22 Range/Units 07:44 06:02 09:55 WBC (3.8-10.6) k/uL RBC (4.30-5.90) m/uL Hgb (13.0-17.5) gm/dL Hct (39.0-53.0) % RDW (11.5-15.5) % Plt Count (150-450) k/uL Neutrophils # (1.3-7.7) k/uL Sodium 135 L (137-145) mmol/L Potassium 5.4 H (3.5-5.1) mmol/L Chloride 111 H (98-107) mmol/L BUN 34 H (9-20) mg/dL Glucose 133 H (74-99) mg/dL POC Glucose (mg/dL) 170 H (70-110) mg/dL Calcium 7.4 L (8.4-10.2) mg/dL Crossmatch See Detail 11/25/22 11/25/22 11/25/22 Range/Units 09:55 11:34 16:55 WBC 20.6 H (3.8-10.6) k/uL RBC 2.21 L (4.30-5.90) m/uL Hgb 6.8 L* (13.0-17.5) gm/dL Hct 20.8 L (39.0-53.0) % RDW 18.4 H (11.5-15.5) % Plt Count 149 L (150-450) k/uL Neutrophils # 18.4 H (1.3-7.7) k/uL Sodium (137-145) mmol/L Potassium (3.5-5.1) mmol/L Chloride (98-107) mmol/L BUN (9-20) mg/dL Glucose (74-99) mg/dL POC Glucose (mg/dL) 183 H 245 H (70-110) mg/dL Calcium (8.4-10.2) mg/dL Crossmatch 11/25/22 Range/Units 20:32 WBC (3.8-10.6) k/uL RBC (4.30-5.90) m/uL Hgb (13.0-17.5) gm/dL Hct (39.0-53.0) % RDW (11.5-15.5) % Plt Count (150-450) k/uL Neutrophils # (1.3-7.7) k/uL Sodium (137-145) mmol/L Potassium (3.5-5.1) mmol/L Chloride (98-107) mmol/L BUN (9-20) mg/dL Glucose (74-99) mg/dL POC Glucose (mg/dL) 331 H (70-110) mg/dL Calcium (8.4-10.2) mg/dL Crossmatch Microbiology - Last 24 Hours (Table) 11/23/22 06:28 Blood Culture - Preliminary Blood No Growth after 48 hours 11/23/22 06:19 Blood Culture - Preliminary Blood No Growth after 48 hours Assessment and Plan Assessment: Acute blood loss. hb 5.9 due to retroperitoneal bleed. Denies any hematemesis or melena. 2 units of PRBC was ordered.Hemoglobin is stable now. Hyperkalemia due to GI bleed. Bilateral Pneumonia with superimposed gram-negative bacterial infection is suspected mainly in the right lower lobe. Completed antibiotic course. Acute hypoxic respiratory failure. Titrate down to room air.. Sepsis secondary to above Possible discitis as per MRI cervical spine. Hyperkalemia due to urinary retention and acute kidney injury. Improving now. Anemia with vitamin B12 deficiency and currently on IM B12 replacement therapy Elevated troponin, most likely type II. No chest pain, normal LV function Low vitamin B12 and B6 Nonocclusive thrombosis of the left leg Paroxysmal atrial fibrillation no anticoagulation with score of 0 per Commissary Agent Plan: CT of the abdomen pelvis showed retroperitoneal hemorrhage and intramuscular hematoma. Heparin has been discontinued. Patient was transfused with 2 units of PRBC. Hemoglobin is stable. Patient is scheduled for IVC filter placement by vascular surgery today. Patient completed antibiotic course. Ceftriaxone has been discontinued. Continue with dexamethasone per orthopedic team Continue with vitamin B12 replacement therapy Continue with IV Lasix 40 mg daily and sodium bicarb MRI cervical spine showed possible discitis. Orthopedic surgery was planning for or on Wednesday,.But postponed due to retroperitoneal bleed. Several consultants on the case including neurologist, strike off machine operator, amusement equipment operator, GI (signed off, no GI coverage this week), infectious disease team and orthopedic team DVT prophylaxis: Dced heparin drip currently. GI Prophylaxis: Ppi PT/OT: Pending Prognosis is guarded Time with Patient: Greater than 30
--- NOTE | 2022-11-27 01:12 | P.PN ---
Subjective Progress Note Date: 11/26/22 62-year-old male in the emergency department for diarrhea. She notes diarrhea starting and he asked progressively gotten worse. He reports he stood up from a chair and had an episode of diarrhea, admits he still maintains bowel function. He has not tried anything for his symptoms. He denies nausea, vomiting, abdominal pain, palpitations, fevers. Denies recent travel or recent antibiotic use. He is scheduled to have his first colonoscopy in january of 2023. Patient had an initial lab work is remarkable for WBC is 11.4, hemoglobin 8.7, INR 1.2, sodium 133, potassium 2.6 lactic acid 2.9, calcium 6.3, magnesium 0.8, lipase 60, COVID positive. I interpreted the following; CT abdomen without contrast remarkable for fluid filled colon without focal wall thickening or surrounding inflammatory changes. Patient was given 2 L fluids, potassium, magnesium and calcium during his course of the ED. 11/08/2022 Patient is seen and evaluated on selective care unit; he went into atrial fibrillation with rapid ventricular response he was transferred to the [facility]. The patient did not have any symptoms of heart racing or fluttering and no dizziness or lightheadedness and no presyncope or syncope and no symptoms of chest pain or chest discomfort or shortness of breath. No prior history of atrial fibrillation. No history of coronary artery disease or congestive heart failure or cardiac arrhythmia and the patient never seen a snowmaker in the past. Beside that no history of diabetes or hypertension or dyslipidemia. The patient was started initially on Cardizem drip but his pressure did go down and for that reason he was switched into amiodarone IV and subsequently converted to normal sinus mechanism and since then he has been maintaining normal sinus mechanism. Further investigation was performed including CBC and that showed a hemoglobin of 7.7. The patient has no history of bleeding. Beside that he underwent a computed tomography scan of the abdomen and pelvis because of the abdominal discomfort that showed no acute abnormalities. The troponin came in to be slightly elevated likely secondary to tachycardia. The EKG showed sinus rhythm now with no significant ST or T-wave abnormalities. Blood work reveals mild elevation of troponin; Patient has been evaluated by cardiology and recommended to continue with IV fluids, replace electrolytes; IV amiodarone is to be discontinued patient is transition to oral dose daily 11/09/2022 Patient is seen and evaluated in follow-up this morning and continues to feel generalized weakness and continues with loose stools. Per nursing staff when assisting to clean the patient up patient was significantly weak on the right. Patient denied any headache, dizziness, or lightheadedness. Will obtain a CT of the brain and also consult neurology. Recommend PT/OT therapy evaluation for significant weakness. C. diff testing was negative on the stool and will add Imodium and encourage oral intake and advance as tolerated. Patient is maintaining on vitamins and zinc supplements along with subcutaneous heparin with anxiety following closely. Patient denies chest pain or shortness of breath. Afebrile. Recommend a.m. labs as well. 11/10/2022 Patient is seen in follow-up today with multiple medical consultations including cardiology, hematology, infectious disease, and now neurology following. Patient with significant weakness in all upper and lower extremities with neurology undergoing workup recommending aspirin as patient is not on any anticoagulation at this time. Cardiology is following and patient was transitioned back to IV Cardizem although being changed to oral with close monitoring. Magnesium found to be significantly low at 1.2 and will replace per protocol and recommend repeat labs. Hemoglobin is mildly low at 7.4 and undergoing anemia workup with hematology following. Patient with Covid and extreme weakness will need ECF and discharge planning in process. Recommend close monitoring of labs and replace electrolytes per protocol. Patient was started on Imodium as C. diff testing 2 was negative. Patient continues to have loose stools although somewhat improved. Encouraged oral intake and increased activity as tolerated. Recommend PT/OT therapy daily. Patient denies chest pain or shortness of breath. Patient is 97% on room air. Patient will continue on vitamin and zinc supplements with anxiety following closely. Re commend gentle IV hydration. 11/11/2022 Patient is seen and evaluated in follow-up with multiple medical consultations following including infectious disease and neurology. Oncology following underg oing anemia workup. Hemoglobin was found to be 6.5 today and will order 1 unit of PRBC and recommend close monitoring. No active bleeding noted. Patient was started on baby aspirin per neurology and scheduled to undergo MRI of the cervical spine today. Patient continues with significant weakness and will need rehab upon discharge. Patient is maintained on vitamin and zinc supplements and was also being followed by cardiology. Adjustments to medications being done and patient is on oral Cardizem. Will follow-up with repeat labs. Patient is afebrile and denies shortness of breath. Patient clinically appears to be improving. Per nursing staff patient is incontinent of stool in continues to be somewhat loose although less frequent. C. diff testing was negative and stool cultures are negative. Encouraged oral intake. Will discuss with case management about discharge planning to ECF as he will require a Covid hub. 11/12/2022 Patient is seen and evaluated in follow-up today with multiple medical consultations following including infectious disease, cardiology, neurology. Fazal brito's hemoglobin is low again at 6.8 and will give 1 unit. Recommend holding aspirin. Patient did have an elevated d-dimer and CTA was ordered. GI was also consulted for anemia. Patient continues to have incontinence of stool and loose stools and is maintained on Questran and will be given Imodium as needed. Patient continues with generalized weakness and fatigue and also having some lower extremity pain and swelling and have ordered Dopplers of bilateral lower extremities as well. Patient with Covid vitamin and zinc supplements and anticoagulation with subcu heparin. Hematology also following for anemia. Recommend repeat CBC this evening and will transfuse another unit as well. C ardiology following and adjustments to medications being made and patient also being started on low-dose diuretics. Patient is having low-grade temps of 99.3- 99.6 and patient continues to be 95% or above on room air. Blood pressure on the lower side although stable. Stool cultures and C. diff testing have been negative. Patient started on antibiotics per ID recommendations in the form of Zithromax and ceftriaxone. Reviewed iron studies which are low and will give IV iron as well. Electrolytes continue to be low and will replace per protocol. Patient will need ECF once stabilized and discharged 11/13/2022 Patient is seen today with multiple medical consultations following and undergo ing neurological workup and having bilateral upper and lower extremity weakness. Neurology recommends orthopedic consultation which is currently pending. Patient did have some movement in his diarrhea and reports becoming more formed and less frequent. Patient continues to be incontinent of this. Patient being started on antibiotics with anxiety following an also continues to have anemia. GI recommending continuing with hematology workup. Multiple images including MRIs and pending at time. Patient with significant weakness will be going to rehab when stable. A.m. labs are pending. 11/14/2022 This is a pleasant 62 years old male with Covid pneumonia and bacterial pneumonia especially in the right lower lobe. His been covered with Zithromax and ceftriaxone with ID team and pulmonary team on the case. His breathing looks improvement, now much tachypnea or dyspnea. She is complaining of from bilateral upper extremity weakness, MRI ordered by orthopedic team showing spinal stenosis of C5 to C6 with possible osteo-discitis of L3-L4 and orthopedic team R following closely. Also he is on dexamethasone Patient had ultrasound of the legs showing no DVT on the right leg with non-o cclusive thrombosis of the left leg. Hematology team are currently following with and he is patient on subcutaneous heparin. Patient still have diarrhea about 3 times per day yesterday no abdominal pain or vomiting. Patient currently on Zithromax and ceftriaxone, oral Lasix and normal saline 75 mL/h 11/15/2022 Patient Covid pneumonia is improving and he has minimal respiratory symptoms, no dyspnea at rest, patient is not working, no chest pain, occasional coughing, he is saturating well and he continued on treatment with dexamethasone which is helping also has a spine disease as he has C5-C6 stenosis orthopedic team on the case, no surgical intervention Also his continued on Zithromax and ceftriaxone for his pneumonia with ID team on the case. Patient has left leg swelling most likely secondary to nonocclusive DVT however patient could not get anticoagulation because of his severe anemia, hematology input is appreciated, anticoagulation has more risks than benefits. We are going to check occult blood in the stool, hemoglobin today slightly going down 7.3. However anemia workup showing some evidence of anemia of chronic disease patient also with A. fib but no need for intervention for this purpose as her score 0. Benzene Still Utility Operator. 11/16/2022 Patient still has bilateral upper extremity weakness mainly on the right side, thought secondary to C5-C6 is stenosis with no plan for surgical intervention by orthopedic team. Patient also on dexamethasone for Covid pneumonia and Zithromax ceftriaxone for possible bacterial superinfection especially in the right lower lobe. Her satur ation is acceptable. Blood pressure is stable low-normal. There is no evidence of bleeding, occult blood in the stool is negative. Patient has evidence of left DVT, his anemia although severe as most likely secondary to anemia of chronic disease, repeat anemia workup was requested, I discussed the case with hematology team, possibly we will start him on anticoagulation once workup is finished. No need for anticoagulation or aspirin for A. fib per Benzene Still Utility Operator. No need for aspirin also per neurologist. 11/17/2022 Patient awake sitting up in bed looks comfortable. His breathing is improved while continue current antibiotic Patient is still have weakness more the right arm and left arm, Orthopedic team on the case and they recommended MRI of the whole spine which is pending. Also I discussed with the bedside nurse disorder hard collar. He still on heparin drip for his left leg DVT, benefits more than risk. Monitor hemoglobin 11/18/2022 Patient sitting up in bed does not look in distress, he does not have new complaint His been followed by orthopedic team and MRI of the spine is pending for his right upper extremity weakness more on the right side. Other than that his her pneumonia significantly improved and currently he is on ceftriaxone. Also he is on dexamethasone for his Covid infection. Patient is tolerated heparin drip. For his left leg DVT with hematology team recommendation. Hemoglobin today actually improvement 7.9. Patient would benefit from EGD/colonoscopy as an outpatient. Normal saline was discontinued. 11/19/2022 Patient sitting up in bed denies any complaint. He continue on ceftriaxone for right lower lobe pneumonia and dexamethasone for Covid pneumonia. Also he is on heparin drip for left leg DVT, which is mildly swollen compared to the right side. Patient with persistent hyperkalemia with convenience store manager consulted, patient is started on IV Lasix, and sodium bicarbonate and check renal ultrasound. Orthopedic team following, MRI of the spine pending. 11/20/2022 Patient is currently resting in the bed. Awake alert and oriented 3. Still having right upper extremity weakness. Patient is afebrile otherwise. No complains of chest pain or shortness of breath. Currently on room air. Laboratory data showed WBC 21.8 mg on 0.0 platelets 262 Sodium 133 potassium 5.7, chloride 107 bicarb is 14 BUN 26 and creatinine 1.04 and calcium 7.2 Patient is being continued on heparin drip. On Cardizem by mouth. MRI of the thoracic spine and lumbar spine to be done today. 11/21/2022 Patient is resting in bed. Awake alert and oriented 3. No complaints of chest pain or shortness of breath. Currently on room air. No nausea vomiting or abdominal pain or diarrhea. MRI cervical spine showed possible discitis. Orthopedic surgery is on board. Patient still having the right upper extremity weakness. Otherwise is planning for OR on Wednesday. Laboratory data showed WBC 22.6-year-old 7.5 platelets 266. CRP level is less than 0.5. Patient is being continued on heparin drip for lower extremity DVT. Orthopedic surgery, ID and nephrology is on board. 11/22/2022 Patient is resting in bed. Awake alert and oriented. No complaints of chest pain or shortness of breath. Patient states that he is still having right upper extremity weakness. No complaints of nausea vomiting abdominal pain or diarrhea. Tolerating oral diet. Patient is being continued on heparin drip and is scheduled for cervical surgery on Wednesday. Laboratory data showed WBC 22.9 hemoglobin 7.0 and platelets 254 sodium 132 potassium 5.4 chloride 114 bicarb is 17 BUN 30 and creatinine 1.13 and calcium 7.2. 11/23/2022 Patient is lying in the bed. Awake alert and oriented x3. No complaints of chest pain or shortness of breath. Right upper extremity weakness remains the s estuardo. Patient otherwise reported to have abdominal discomfort and back discomfort. Hemoglobin dropped down to 5.9 this morning. Drainage of PRBC transfusion was ordered. CT of the abdomen pelvis was ordered without retroperitoneal bleed. Otherwise blood pressures 129/85 pulse is 74 respirate 18 pulse ox 94% on room air. Will hold aspirin if there is any signs of retroperitoneal bleed. Patient is otherwise scheduled for cervical surgery tomorrow. 11/24/2022 Patient is currently resting in the bed. Awake alert and oriented x3. No complaints of chest pain or shortness of breath. Left lower abdominal discomfort is improved. Hemoglobin is stable. Vascular surgery has seen the patient is planning for IVC filter placement. Heparin is on hold due to retroperitoneal bleed. Laboratory data showed WBC 25.6 hemoglobin 7.1 and platelets 159 sodium 131 potassium 5.7 chloride 112 bicarb is 37 creatinine 1.18 and calcium 7.0. Nephrology, ID and vascular surgery is on board. 11/25/2022 Patient is currently resting in bed. Awake alert and oriented x3. On room air. No complaints of chest pain or shortness of breath. No abdominal pain. No nausea vomiting abdominal pain or diarrhea. Patient is scheduled for IVC filter placement today. Otherwise hemoglobin level is 6.8 and 1 unit of PRBC was ordered. Other laboratory data showed WBC 20.6 hemoglobin 6.8 and platelets 149 sodium 135 potassium 5.4 chloride 101 bicarb is 23 BUN 34 and creatinine 1.25. Magnesium 1.6. Patient is being continued dexamethasone as per orthopedic surgery. Also on IV Lasix. Nephrology and general surgery is on board. Patient was given a dose of Lokelma yesterday. 11/26/2022 Patient is currently resting in bed. Awake alert and oriented x3. No complaints of back pain or abdominal pain. No nausea vomiting abdominal pain or diarrhea. No cough or sputum production. Currently on room air. Patient is status post IVC filter placement on 11/25/2022. Patient received 1 unit of PRBC yesterday and hemoglobin improved to 7.6 today. Level data showed WBC 22.3 hemoglobin 7.6 and platelets 141 sodium 136 potassium 5.3 chloride 101 bicarb is 23 BUN 32 and creatinine 1.23 and blood sugar is 125 and calcium 7.2. Magnesium 1.9. Follow-up CBC and BMP was ordered. Orthopedic surgery is planning for OR when medically stable tomorrow. Current medications reviewed. Objective - Vital Signs Vital signs: Vital Signs Temp 98.1 F 11/26/22 16:00 Pulse 70 11/26/22 16:00 Resp 18 11/26/22 16:00 BP 128/75 11/26/22 16:00 Pulse Ox 96 11/26/22 16:00 FiO2 Intake & Output 11/26/22 11/26/22 11/27/22 06:59 18:59 06:59 Intake Total 180 Output Total 600 0 Balance -600 -1870 Weight 118.5 kg Intake: Oral 180 Output: Urine 600 0 Other: Voiding Method Indwelling Catheter Indwelling Catheter # Bowel Movements 1 - Exam - Exam -GENERAL: The patient is alert and oriented x3, not in any acute distress. Well developed, well nourished. Generally weak -HEENT: Pupils are round and equally reacting to light. EOMI. No scleral icterus. No conjunctival pallor. Normocephalic, atraumatic. No pharyngeal erythema. No thyromegaly. Dry mucous membranes, mild CARDIOVASCULAR: S1 and S2 present. No murmurs, rubs, or gallops. PULMONARY: Chest is clear to auscultation, no wheezing or crackles. ABDOMEN: Soft, nontender, nondistended, normoactive bowel sounds. No palpable organomegaly. MUSCULOSKELETAL: No joint swelling or deformity. -EXTREMITIES: No cyanosis, clubbing, or pedal edema. left leg swelling NEUROLOGICAL: Gross neurological examination did not reveal any focal deficits. SKIN: No rashes. no petechiae. - Labs CBC & Chem 7: 11/26/22 08:53 11/26/22 09:22 Labs: Abnormal Lab Results - Last 24 Hours (Table) 11/23/22 11/26/22 11/26/22 Range/Units 07:44 06:19 08:53 WBC 22.3 H (3.8-10.6) k/uL RBC 2.42 L (4.30-5.90) m/uL Hgb 7.6 L (13.0-17.5) gm/dL Hct 22.9 L (39.0-53.0) % RDW 18.8 H (11.5-15.5) % Plt Count 141 L (150-450) k/uL Neutrophils # 20.1 H (1.3-7.7) k/uL Sodium (137-145) mmol/L Potassium (3.5-5.1) mmol/L Chloride (98-107) mmol/L BUN (9-20) mg/dL Glucose (74-99) mg/dL POC Glucose (mg/dL) 170 H (70-110) mg/dL Calcium (8.4-10.2) mg/dL AST (17-59) U/L Total Protein (6.3-8.2) g/dL Albumin (3.5-5.0) g/dL Crossmatch See Detail 11/26/22 11/26/22 11/26/22 Range/Units 09:22 11:49 16:40 WBC (3.8-10.6) k/uL RBC (4.30-5.90) m/uL Hgb (13.0-17.5) gm/dL Hct (39.0-53.0) % RDW (11.5-15.5) % Plt Count (150-450) k/uL Neutrophils # (1.3-7.7) k/uL Sodium 136 L (137-145) mmol/L Potassium 5.3 H (3.5-5.1) mmol/L Chloride 111 H (98-107) mmol/L BUN 32 H (9-20) mg/dL Glucose 125 H (74-99) mg/dL POC Glucose (mg/dL) 161 H 253 H (70-110) mg/dL Calcium 7.2 L (8.4-10.2) mg/dL AST 16 L (17-59) U/L Total Protein 4.1 L (6.3-8.2) g/dL Albumin 2.0 L (3.5-5.0) g/dL Crossmatch 11/26/22 Range/Units 20:33 WBC (3.8-10.6) k/uL RBC (4.30-5.90) m/uL Hgb (13.0-17.5) gm/dL Hct (39.0-53.0) % RDW (11.5-15.5) % Plt Count (150-450) k/uL Neutrophils # (1.3-7.7) k/uL Sodium (137-145) mmol/L Potassium (3.5-5.1) mmol/L Chloride (98-107) mmol/L BUN (9-20) mg/dL Glucose (74-99) mg/dL POC Glucose (mg/dL) 161 H (70-110) mg/dL Calcium (8.4-10.2) mg/dL AST (17-59) U/L Total Protein (6.3-8.2) g/dL Albumin (3.5-5.0) g/dL Crossmatch Microbiology - Last 24 Hours (Table) 11/23/22 06:28 Blood Culture - Preliminary Blood No Growth after 72 hours 11/23/22 06:19 Blood Culture - Preliminary Blood No Growth after 72 hours Assessment and Plan Assessment: Acute blood loss. hb 5.9 due to retroperitoneal bleed. Denies any hematemesis or melena. 2 units of PRBC was ordered.Hemoglobin is stable now. Hyperkalemia due to GI bleed. Bilateral Pneumonia with superimposed gram-negative bacterial infection is suspected mainly in the right lower lobe. Completed antibiotic course. Acute hypoxic respiratory failure. Titrate down to room air.. Sepsis secondary to above Possible discitis as per MRI cervical spine. Hyperkalemia due to urinary retention and acute kidney injury. Improving now. Anemia with vitamin B12 deficiency and currently on IM B12 replacement therapy Elevated troponin, most likely type II. No chest pain, normal LV function Low vitamin B12 and B6 Nonocclusive thrombosis of the left leg Paroxysmal atrial fibrillation no anticoagulation with score of 0 per Benzene Still Utility Operator Plan: CT of the abdomen pelvis showed retroperitoneal hemorrhage and intramuscular hematoma. Heparin has been discontinued. Patient was transfused with 2 units of PRBC. Hemoglobin is stable. Patient is scheduled for IVC filter placement by vascular surgery, Patient is status post IVC filter placement on 11/25/2022.. Patient completed antibiotic course. Ceftriaxone has been discontinued. Continue with dexamethasone per orthopedic team Continue with vitamin B12 replacement therapy Continue with IV Lasix 40 mg daily and sodium bicarb MRI cervical spine showed possible discitis. Orthopedic surgery was planning for or on Wednesday,.But postponed due to retroperitoneal bleed. Several consultants on the case including neurologist, rougher merchant mill, snowmaker, GI (signed off, no GI coverage this week), infectious disease team and orthopedic team DVT prophylaxis: Dced heparin drip currently. GI Prophylaxis: Ppi PT/OT: Pending Prognosis is guarded Time with Patient: Greater than 30
[2022-11-27] MEDS ORDERED: MAGNESIUM SULFATE-D5W PMX 1 GM in DEXTROSE/WATER 1 100ML.BAG IVPB SCH (01:15)
[2022-11-27] MEDS: DEXAMETHASONE SOD PHOSPHATE 4 MG/ML 1 ML VIAL IVP SCH ×4 (05:37→23:37)
[2022-11-27] MEDS: LEVOTHYROXINE 50 MCG TAB PO SCH (05:37)
[2022-11-27 06:13] LABS: Glucose,Whole Blood 179 mg/dL (70-110)
[2022-11-27] MEDS: INSULIN ASPART (NovoLOG) 100 UNIT/ML VIAL SQ SCH ×4 (07:00→21:12)
[2022-11-27 08:05] LABS: Anisocytosis Slight; Basophils % (A) 0 %; Eosinophils % (A) 0 %; HCT 22.8 % (39.0-53.0); HGB 7.3 gm/dL (13.0-17.5); Hypochromasia Slight; Lymphocytes # (A) 1.1 k/uL (1.0-4.8); Lymphocytes % (A) 6 %; MCHC 32.3 g/dL (31.0-37.0); MCV 96.1 fL (80.0-100.0); Macrocytosis Slight; Mean Platelet Volume 9.9; Monocytes # (A) 0.6 k/uL (0-1.0); Monocytes % (A) 3 %; Neutrophils # (A) 17.6 k/uL (1.3-7.7); Neutrophils % (A) 91 %; Platelet Count 141 k/uL (150-450); RBC 2.37 m/uL (4.30-5.90); RDW 19.7 % (11.5-15.5); WBC 19.5 k/uL (3.8-10.6)
[2022-11-27 08:12] LABS: Prothrombin Time 10.6 sec (9.0-12.0)
[2022-11-27 08:36] LABS: Calcium 7.3 mg/dL (8.4-10.2); Magnesium 1.8 mg/dL (1.6-2.3)
[2022-11-27] MEDS: DILTIAZEM ORAL 30 MG TAB PO SCH ×3 (08:47→20:01)
[2022-11-27] MEDS: PANTOPRAZOLE 40 MG/10 ML VIAL IVP SCH ×2 (08:47→20:01)
[2022-11-27] MEDS: FUROSEMIDE 10 MG/ML 4 ML VIAL IV SCH (08:48)
--- NOTE | 2022-11-27 09:58 | P.PN ---
Subjective Progress Note Date: 11/27/22 Principal diagnosis: Rectoperineal hematoma Patient says he is doing about the same. No abdominal pain. Tolerating diet. Objective - Vital Signs Vital signs: Vital Signs Temp 97.8 F 11/27/22 04:00 Pulse 64 11/27/22 04:00 Resp 18 11/27/22 04:00 BP 122/73 11/27/22 04:00 Pulse Ox 97 11/27/22 04:00 FiO2 Intake & Output 11/26/22 11/27/22 11/27/22 18:59 06:59 18:59 Intake Total 180 Output Total 2049 750 Balance -1869 - Weight 119 kg Intake: Oral 180 Output: Urine 2049 750 Other: Voiding Method Indwelling Catheter Indwelling Catheter # Bowel Movements 1 - Exam Abdomen: Soft, nontender, nondistended - Labs CBC & Chem 7: 11/27/22 07:24 11/27/22 07:24 Labs: Abnormal Lab Results - Last 24 Hours (Table) 11/26/22 11/26/22 11/26/22 Range/Units 11:49 16:40 20:33 WBC (3.8-10.6) k/uL RBC (4.30-5.90) m/uL Hgb (13.0-17.5) gm/dL Hct (39.0-53.0) % RDW (11.5-15.5) % Plt Count (150-450) k/uL Neutrophils # (1.3-7.7) k/uL Chloride (98-107) mmol/L BUN (9-20) mg/dL Creatinine (0.66-1.25) mg/dL Glucose (74-99) mg/dL POC Glucose (mg/dL) 161 H 253 H 161 H (70-110) mg/dL Calcium (8.4-10.2) mg/dL 11/27/22 11/27/22 11/27/22 Range/Units 06:11 07:24 07:24 WBC 19.5 H (3.8-10.6) k/uL RBC 2.37 L (4.30-5.90) m/uL Hgb 7.3 L (13.0-17.5) gm/dL Hct 22.8 L (39.0-53.0) % RDW 19.7 H (11.5-15.5) % Plt Count 141 L (150-450) k/uL Neutrophils # 17.6 H (1.3-7.7) k/uL Chloride 111 H (98-107) mmol/L BUN 33 H (9-20) mg/dL Creatinine 1.27 H (0.66-1.25) mg/dL Glucose 135 H (74-99) mg/dL POC Glucose (mg/dL) 179 H (70-110) mg/dL Calcium 7.3 L (8.4-10.2) mg/dL Microbiology - Last 24 Hours (Table) 11/23/22 06:28 Blood Culture - Preliminary Blood No Growth after 96 hours 11/23/22 06:19 Blood Culture - Preliminary Blood No Growth after 96 hours Assessment and Plan (1) Malnutrition of moderate degree Narrative/Plan: 62-year-old male with retroperitoneal bleed. Await morning labs. Diet as tolerated. Continue hold anticoagulation. Await orthospine intervention. Current Visit: Yes Status: Acute Code(s): E44.0 - MODERATE PROTEIN-CALORIE MALNUTRITION SNOMED Code(s): 136751483
--- NOTE | 2022-11-27 11:36 | P.CON ---
Consult Note - . Consult date: 11/27/22 Assessment/Plan:: IR consulted for aspiration of L3/4 disk space as there was question of diskitis/osteomyelitis. Per review of EMR, patient is being trialed off antibiotics as ESR was not elevated an there is an alternative reason for leukocytosis. Upon review of recent MRI and CT, the L3/4 disk space is collapsed and there is no window for percutaneous sampling. Thank you very much for this consult.
--- NOTE | 2022-11-27 11:52 | IR ---
EXAMINATION TYPE: IR IVC filter placement DATE OF EXAM: 11/25/2022 CLINICAL HISTORY: Fluoroscopy time for IVC filter placement TECHNIQUE: Fluoroscopy. COMPARISON: None. FINDINGS: Fluoroscopic guidance was provided during procedure performed by Dr. Jo. A total of 0. 6 minutes of fluoroscopic time was utilized during the procedure. Final image demonstrates a filter d eployed in the infrarenal IVC. Please see separate report from the referring clinician. IMPRESSION: As Above.
[2022-11-27 11:57] LABS: Glucose,Whole Blood 145 mg/dL (70-110)
[2022-11-27] MEDS: PYRIDOXINE 50 MG TAB PO SCH ×2 (12:26→20:02)
[2022-11-27] MEDS: CALCIUM CARBONATE 500 MG CHEWABLE PO SCH ×3 (12:26→20:01)
[2022-11-27] MEDS: SODIUM BICARBONATE TAB 650 MG TAB PO SCH ×3 (12:26→20:00)
[2022-11-27] MEDS: ASCORBIC ACID 500 MG TAB PO SCH ×2 (12:26→20:00)
[2022-11-27] MEDS: CHOLESTYRAMINE (WITH SUGAR) 4 GM PACKET PO SCH ×2 (12:27→17:21)
--- NOTE | 2022-11-27 13:57 | P.PN ---
Subjective Patient is seen in follow-up for acute kidney injury on chronic kidney disease. Renal function fairly stable. Hemoglobin 7.3 today. Denies any active bleeding. Has a Jo catheter for urinary retention. Nonoliguric. No active complaints. Vital signs are stable. General: No acute distress. HEENT: Head exam is unremarkable. LUNGS: Breath sounds decreased. HEART: Rate and Rhythm are regular. ABDOMEN: Soft, no distention. EXTREMITITES: 1+ edema. Objective - Vital Signs Vital signs: Vital Signs Temp 97.8 F 11/27/22 12:00 Pulse 60 11/27/22 12:00 Resp 15 11/27/22 12:00 BP 112/71 11/27/22 12:00 Pulse Ox 96 11/27/22 12:00 FiO2 Intake & Output 11/26/22 11/27/22 11/27/22 18:59 06:59 18:59 Intake Total 180 Output Total 2050 750 Balance -1870 -750 Weight 119 kg Intake: Oral 180 Output: Urine 2049 750 Other: Voiding Method Indwelling Catheter Indwelling Catheter Indwelling Catheter # Bowel Movements 1 - Labs CBC & Chem 7: 11/27/22 07:24 11/27/22 07:24 Labs: Abnormal Lab Results - Last 24 Hours (Table) 11/26/22 11/26/22 11/27/22 Range/Units 16:40 20:33 06:11 WBC (3.8-10.6) k/uL RBC (4.30-5.90) m/uL Hgb (13.0-17.5) gm/dL Hct (39.0-53.0) % RDW (11.5-15.5) % Plt Count (150-450) k/uL Neutrophils # (1.3-7.7) k/uL Chloride (98-107) mmol/L BUN (9-20) mg/dL Creatinine (0.66-1.25) mg/dL Glucose (74-99) mg/dL POC Glucose (mg/dL) 253 H 161 H 179 H (70-110) mg/dL Calcium (8.4-10.2) mg/dL 11/27/22 11/27/22 11/27/22 Range/Units 07:24 07:24 11:55 WBC 19.5 H (3.8-10.6) k/uL RBC 2.37 L (4.30-5.90) m/uL Hgb 7.3 L (13.0-17.5) gm/dL Hct 22.8 L (39.0-53.0) % RDW 19.7 H (11.5-15.5) % Plt Count 141 L (150-450) k/uL Neutrophils # 17.6 H (1.3-7.7) k/uL Chloride 111 H (98-107) mmol/L BUN 33 H (9-20) mg/dL Creatinine 1.27 H (0.66-1.25) mg/dL Glucose 135 H (74-99) mg/dL POC Glucose (mg/dL) 145 H (70-110) mg/dL Calcium 7.3 L (8.4-10.2) mg/dL Microbiology - Last 24 Hours (Table) 11/23/22 06:28 Blood Culture - Preliminary Blood No Growth after 96 hours 11/23/22 06:19 Blood Culture - Preliminary Blood No Growth after 96 hours Assessment and Plan Plan: Assessment: 1. Acute kidney injury mostly prerenal secondary to acute blood loss anemia and urinary retention. Renal function stable. Creatinine 1.27 today. Patient rec eived IV contrast on 11/23/2022. 2. Chronic kidney disease stage II with baseline creatinine 1-1.1. 3. Urinary retention. Has Jo catheter. On Flomax. 4. Lower extremity edema maintained on Lasix. Better. 5. Hyperkalemia secondary to GI bleed and acidosis. Stable. 6. GI bleed status post blood transfusion this admission. CAT scan showed large intramuscular hematoma. Hemoglobin 7.3 today. Surgery following. 7. Metabolic acidosis secondary to acute kidney injury and GI losses maintained on oral bicarbonate. Improved. 8. Hypomagnesemia from diuresis. Replaced. Better. Plan: Change Lasix to oral. DC Jo catheter and monitor serial bladder scans to make sure no retention. Monitor hemoglobin and transfuse as needed. Defer to primary and surgery team. Avoid nephrotoxins. Repeat labs in the morning.
--- NOTE | 2022-11-27 14:57 | P.PN ---
Subjective Progress Note Date: 11/27/22 Principal diagnosis: Covid 19 Patient is a 62-year-old male who is unvaccinated for COVID-19 patient was brought into the ER for evaluation of weakness no energy mention the patient was not able to get stand up and go to the bathroom patient has been dealing with the diarrhea off and on for couple of weeks, patient was noticed to have a positive covid test, however the patient was not hypoxic and CT abdominal pelvis with few bibasilar patchy groundglass opacity representing atelectasis and no evidence of colitis. Patient did have a drop in his hemoglobin and underwent a CT angiogram that demonstrated a large intramuscular hematoma in the left iliac is muscle in the retroperitoneum. Patient is status post [place] filter placement on 11/25/2022 On today's evaluation that is 11/27/2022, the patient remains to be afebrile, the patient is breathing comfortably on room air, The patient denies chest pain , the patient did have occasional cough but no sputum production, the patient denies nausea no vomiting abdominal pain has decreased in intensity and no diarrhea, denies any worsening back pain Objective - Vital Signs Vital signs: Vital Signs Temp 97.8 F 11/27/22 12:00 Pulse 60 11/27/22 12:00 Resp 15 11/27/22 12:00 BP 112/71 11/27/22 12:00 Pulse Ox 96 11/27/22 12:00 FiO2 Intake & Output 11/26/22 11/27/22 11/27/22 18:59 06:59 18:59 Intake Total 180 Output Total 2049 750 Balance -1870 -750 Weight 119 kg Intake: Oral 180 Output: Urine 2049 750 Other: Voiding Method Indwelling Catheter Indwelling Catheter Indwelling Catheter # Bowel Movements 1 - Exam GENERAL DESCRIPTION: An elderly male lying in bed in no distress RESPIRATORY SYSTEM: Unlabored breathing , decreased breath sounds at bases HEART: S1 S2 regular rate and rhythm , ABDOMEN: Soft , no tenderness EXTREMITIES: No edema feet - Labs CBC & Chem 7: 11/27/22 07:24 11/27/22 07:24 Labs: Abnormal Lab Results - Last 24 Hours (Table) 11/26/22 11/26/22 11/27/22 Range/Units 16:40 20:33 06:11 WBC (3.8-10.6) k/uL RBC (4.30-5.90) m/uL Hgb (13.0-17.5) gm/dL Hct (39.0-53.0) % RDW (11.5-15.5) % Plt Count (150-450) k/uL Neutrophils # (1.3-7.7) k/uL Chloride (98-107) mmol/L BUN (9-20) mg/dL Creatinine (0.66-1.25) mg/dL Glucose (74-99) mg/dL POC Glucose (mg/dL) 253 H 161 H 179 H (70-110) mg/dL Calcium (8.4-10.2) mg/dL 11/27/22 11/27/22 11/27/22 Range/Units 07:24 07:24 11:55 WBC 19.5 H (3.8-10.6) k/uL RBC 2.37 L (4.30-5.90) m/uL Hgb 7.3 L (13.0-17.5) gm/dL Hct 22.8 L (39.0-53.0) % RDW 19.7 H (11.5-15.5) % Plt Count 141 L (150-450) k/uL Neutrophils # 17.6 H (1.3-7.7) k/uL Chloride 111 H (98-107) mmol/L BUN 33 H (9-20) mg/dL Creatinine 1.27 H (0.66-1.25) mg/dL Glucose 135 H (74-99) mg/dL POC Glucose (mg/dL) 145 H (70-110) mg/dL Calcium 7.3 L (8.4-10.2) mg/dL Microbiology - Last 24 Hours (Table) 11/23/22 06:28 Blood Culture - Preliminary Blood No Growth after 96 hours 11/23/22 06:19 Blood Culture - Preliminary Blood No Growth after 96 hours Assessment and Plan (1) COVID-19 Current Visit: Yes Status: Acute Priority: High Code(s): U07.1 - COVID-19 SNOMED Code(s): 499599834 (2) Diarrhea Current Visit: Yes Status: Acute Priority: High Code(s): R19.7 - DIARRHEA, UNSPECIFIED SNOMED Code(s): 01682522 Plan: 1patient did have a abnormal MRI of the cervical spine as well as lumbar spine with a questionable discitis reported by radiologist however the patient did have normal sed rate and a CRP 2, patient is currently being monitor closely off antibiotic therapy to increase the yield of any culture to be done at the time of surgery . Apparently the patient is not stable to undergo surgery per orthopedics, IR unable to do CT-guided aspirate of the affected lumbar spine for microbiological diagnosis, will discuss further with the orthopedics 2leukocytosis is more likely steroid related and now with evidence of muscle he matoma as well as retroperitoneal hematoma and the patient is status post [place] filter placement Time with Patient: Less than 30
--- NOTE | 2022-11-27 17:04 | P.PN ---
Subjective Progress Note Date: 11/27/22 Principal diagnosis: Anemia, LLE DVT, Soft tissue bleeding on anticoagulation Pt reports stable, pending surgical intervention. Tolerated IVC filter placement well, no reported bleeding. No reported pain. Objective - Vital Signs Vital signs: Vital Signs Temp 97.9 F 11/27/22 16:00 Pulse 60 11/27/22 16:00 Resp 16 11/27/22 16:00 BP 128/75 11/27/22 16:00 Pulse Ox 99 11/27/22 16:00 FiO2 Intake & Output 11/26/22 11/27/22 11/27/22 18:59 06:59 18:59 Intake Total 180 0 Output Total 2049 750 1900 Balance -1870 -750 -1900 Weight 119 kg Intake: Intake, IV Titration 0 Amount Lactated Ringers 1,000 ml 0 @ 20 mls/hr IV .Q24H [facility] Rx#:[id number] Oral 180 Output: Urine 2049 750 1900 Uretheral (Jo) 1900 Other: Voiding Method Indwelling Catheter Indwelling Catheter External Catheter # Bowel Movements 1 - Exam Well-developed, adequately nourished, no acute distress, respirations even and unlabored at rest. - Labs CBC & Chem 7: 11/27/22 07:24 11/27/22 07:24 Labs: Abnormal Lab Results - Last 24 Hours (Table) 11/26/22 11/27/22 11/27/22 Range/Units 20:33 06:11 07:24 WBC 19.5 H (3.8-10.6) k/uL RBC 2.37 L (4.30-5.90) m/uL Hgb 7.3 L (13.0-17.5) gm/dL Hct 22.8 L (39.0-53.0) % RDW 19.7 H (11.5-15.5) % Plt Count 141 L (150-450) k/uL Neutrophils # 17.6 H (1.3-7.7) k/uL Chloride (98-107) mmol/L BUN (9-20) mg/dL Creatinine (0.66-1.25) mg/dL Glucose (74-99) mg/dL POC Glucose (mg/dL) 161 H 179 H (70-110) mg/dL Calcium (8.4-10.2) mg/dL 11/27/22 11/27/22 Range/Units 07:24 11:55 WBC (3.8-10.6) k/uL RBC (4.30-5.90) m/uL Hgb (13.0-17.5) gm/dL Hct (39.0-53.0) % RDW (11.5-15.5) % Plt Count (150-450) k/uL Neutrophils # (1.3-7.7) k/uL Chloride 111 H (98-107) mmol/L BUN 33 H (9-20) mg/dL Creatinine 1.27 H (0.66-1.25) mg/dL Glucose 135 H (74-99) mg/dL POC Glucose (mg/dL) 145 H (70-110) mg/dL Calcium 7.3 L (8.4-10.2) mg/dL Microbiology - Last 24 Hours (Table) 11/23/22 06:28 Blood Culture - Preliminary Blood No Growth after 96 hours 11/23/22 06:19 Blood Culture - Preliminary Blood No Growth after 96 hours Assessment and Plan (1) Normocytic normochromic anemia Current Visit: Yes Status: Acute Priority: High Code(s): D64.9 - ANEMIA, UNSPECIFIED SNOMED Code(s): 40299145 (2) COVID-19 Current Visit: Yes Status: Acute Priority: High Code(s): U07.1 - COVID-19 SNOMED Code(s): 989553587 (3) Left leg DVT Current Visit: Yes Status: Acute Priority: High Code(s): I82.402 - ACUTE EMBOLISM AND THOMBOS UNSP DEEP VEINS OF L LOW EXTREM SNOMED Code(s): 080262216 Plan: Heparin D/C on 11/23/22 due to large hematoma of left iliac muscle and retroperitoneal hematoma inferior to left kidney. Vascular has placed an IVC filter as patient is not a candidate for anticoagulation at this time. Pending surgery. WBC 19.5, Hgb 7.3, PLT 141. Continue to monitor CBC. Continue to monitor for any bleeding. Transfuse PRBCs for hemoglobin less than 7.0 Per hematology. Surgeon may want hemoglobin at a different level, they may request transfusion for the same. attests: I seen and examined patient, performed H&P, developed impression and plan of care. Discussed with dictator. Agree with documentation, dictated as a scribe
[2022-11-27 17:06] LABS: Glucose,Whole Blood 249 mg/dL (70-110)
[2022-11-27] MEDS: SODIUM ZIRCONIUM CYCLOSILICATE 10 GM PACKET PO SCH (17:20)
[2022-11-27] MEDS: TAMSULOSIN 0.4 MG CAP.ER.24H PO SCH (17:21)
[2022-11-27] MEDS: FLUoxetine HCL 20 MG CAP PO SCH (17:22)
[2022-11-27] MEDS: FOLIC ACID 1 MG TAB PO SCH (17:22)
[2022-11-27] MEDS: CHOLECALCIFEROL 25 MCG (1000 IU) TABLET PO SCH (17:22)
[2022-11-27] MEDS: THIAMINE 100 MG TAB PO SCH (17:22)
[2022-11-27] MEDS: MAGNESIUM OXIDE 400 MG TAB PO SCH (17:22)
[2022-11-27] MEDS: ZINC SULFATE 220 MG CAP PO SCH (17:22)
[2022-11-27] MEDS: CYANOCOBALAMIN 1,000 MCG/ML 1 ML VIAL IM SCH (17:23)
[2022-11-27] MEDS: LACTATED RINGERS 1,000 ML IV SCH (17:23)
--- NOTE | 2022-11-27 18:36 | P.PN ---
Subjective Progress Note Date: 11/27/22 Principal diagnosis: Bilateral upper extremity weakness; back pain Patient seen and examined this afternoon. Patient is resting in bed. He continues to have c/o increasing edema to left lower extremity. There has been no changes in patients symptoms of the upper and lower extremities. Discussed with patient that his surgery has been cancelled at this time until he is medically stable. Patient verbalizes understanding. He has been afebrile, denies nausea/vomiting, or chest pain. Objective - Vital Signs Vital signs: Vital Signs Temp 97.9 F 11/27/22 16:00 Pulse 60 11/27/22 16:00 Resp 16 11/27/22 16:00 BP 128/75 11/27/22 16:00 Pulse Ox 99 11/27/22 16:00 FiO2 Intake & Output 11/26/22 11/27/22 11/27/22 18:59 06:59 18:59 Intake Total 180 0 Output Total 0 750 1900 Balance -1870 -750 -1900 Weight 119 kg Intake: Intake, IV Titration 0 Amount Lactated Ringers 1,000 ml 0 @ 20 mls/hr IV .Q24H [facility] Rx#:[id number] Oral 180 Output: Urine 2049 750 1900 Uretheral (Jo) 1900 Other: Voiding Method Indwelling Catheter Indwelling Catheter External Catheter # Bowel Movements 1 - Exam Physical Examination General: The patient is awake and alert, in no acute distress Skin: Skin is warm and dry with no obvious rashes or lesions. Hairy patches absent, no dorsal skin dimples, no cafe au lait spots, surgical site in the groin. Eye: Pupils are equal, round and reactive to light, extra-ocular movements are intact; there is normal conjunctiva bilaterally. Neck: The neck is supple, there is no tenderness and ROM intact. Cardiovascular: There is a regular rate and rhythm. No murmur, rub or gallop is appreciated. Left lower 2+ pitting edema present. Respiratory: Lungs are clear to auscultation, respirations are non-labored, breath sounds are equal. Gastrointestinal: Soft, non-distended, non-tender abdomen. Back: There is no tenderness to palpation in the midline, paralumbar, parathor acic or buttocks region. There is no obvious deformity . Musculoskeletal: ROM limited secondary to pain and stiffness from surgical procedure. Muscle strength in all major muscle groups of right upper extremity 3/5, left upper extremity 4/5, bilateral lower extremities 4-/5. Neurological: CN 2-12 intact. There are no obvious motor or sensory deficits. Movement and coordination equal and intact. Sensory exam to light touch intact C5-T1 and intact from L2-S1. Reflexes 2/4 in bilateral upper and lower extremities. Negative Hoffmans, babinski, and clonus signs. Psychiatric: Cooperative, appropriate mood & affect, normal judgment. - Labs CBC & Chem 7: 11/27/22 07:24 11/27/22 07:24 Labs: Abnormal Lab Results - Last 24 Hours (Table) 11/26/22 11/26/22 11/27/22 Range/Units 16:40 20:33 06:11 WBC (3.8-10.6) k/uL RBC (4.30-5.90) m/uL Hgb (13.0-17.5) gm/dL Hct (39.0-53.0) % RDW (11.5-15.5) % Plt Count (150-450) k/uL Neutrophils # (1.3-7.7) k/uL Chloride (98-107) mmol/L BUN (9-20) mg/dL Creatinine (0.66-1.25) mg/dL Glucose (74-99) mg/dL POC Glucose (mg/dL) 253 H 161 H 179 H (70-110) mg/dL Calcium (8.4-10.2) mg/dL 11/27/22 11/27/22 11/27/22 Range/Units 07:24 07:24 11:55 WBC 19.5 H (3.8-10.6) k/uL RBC 2.37 L (4.30-5.90) m/uL Hgb 7.3 L (13.0-17.5) gm/dL Hct 22.8 L (39.0-53.0) % RDW 19.7 H (11.5-15.5) % Plt Count 141 L (150-450) k/uL Neutrophils # 17.6 H (1.3-7.7) k/uL Chloride 111 H (98-107) mmol/L BUN 33 H (9-20) mg/dL Creatinine 1.27 H (0.66-1.25) mg/dL Glucose 135 H (74-99) mg/dL POC Glucose (mg/dL) 145 H (70-110) mg/dL Calcium 7.3 L (8.4-10.2) mg/dL Microbiology - Last 24 Hours (Table) 11/23/22 06:28 Blood Culture - Preliminary Blood No Growth after 96 hours 11/23/22 06:19 Blood Culture - Preliminary Blood No Growth after 96 hours Assessment and Plan Assessment: Bilateral upper extremity weakness Left knee pain Large retroperitoneal hematoma Anemia of unknown origin Plan: Plans for cervical and lumbar surgical procedures have been canceled until patient is medically cleared. Appreciate medical management Pain management - Tylenol DVT prophylaxis -mechanical GI prophylaxis - Protonix; Tums PT/OT - weightbearing as tolerated with walker. Appreciate consult *I reviewed and discussed this case with my attending Dr. Starr, whom has reviewed this chart and films and is in agreement with assessment and plan of care as outlined above. I have personally seen and examined the patient, performed the documentation and the assessment and plan as written. Number of minutes spent on the visit: 15m.
[2022-11-27] MEDS: MELATONIN 3 MG TABLET PO SCH (20:00)
[2022-11-27 20:23] LABS: Glucose,Whole Blood 260 mg/dL (70-110)
[2022-11-28 06:06] LABS: Glucose,Whole Blood 211 mg/dL (70-110)
[2022-11-28] MEDS: DEXAMETHASONE SOD PHOSPHATE 4 MG/ML 1 ML VIAL IVP SCH ×3 (06:38→18:35)
[2022-11-28] MEDS: INSULIN ASPART (NovoLOG) 100 UNIT/ML VIAL SQ SCH ×4 (06:39→21:16)
[2022-11-28] MEDS: LEVOTHYROXINE 50 MCG TAB PO SCH (06:39)
[2022-11-28] MEDS: CHOLESTYRAMINE (WITH SUGAR) 4 GM PACKET PO SCH ×2 (08:43→19:43)
[2022-11-28] MEDS: SODIUM BICARBONATE TAB 650 MG TAB PO SCH ×2 (08:43→16:51)
[2022-11-28] MEDS: PANTOPRAZOLE 40 MG/10 ML VIAL IVP SCH ×2 (08:43→21:14)
[2022-11-28] MEDS: DILTIAZEM ORAL 30 MG TAB PO SCH ×3 (08:43→21:15)
[2022-11-28] MEDS: FLUoxetine HCL 20 MG CAP PO SCH (08:43)
[2022-11-28] MEDS: ASCORBIC ACID 500 MG TAB PO SCH ×2 (08:44→21:15)
[2022-11-28] MEDS: FUROSEMIDE 40 MG TAB PO SCH (08:44)
[2022-11-28] MEDS: CALCIUM CARBONATE 500 MG CHEWABLE PO SCH ×3 (08:44→21:15)
[2022-11-28] MEDS: CYANOCOBALAMIN 1,000 MCG/ML 1 ML VIAL IM SCH (08:44)
[2022-11-28] MEDS: THIAMINE 100 MG TAB PO SCH (08:44)
[2022-11-28] MEDS: ZINC SULFATE 220 MG CAP PO SCH (08:44)
[2022-11-28] MEDS: PYRIDOXINE 50 MG TAB PO SCH ×2 (08:44→21:15)
[2022-11-28] MEDS: MAGNESIUM OXIDE 400 MG TAB PO SCH (08:44)
[2022-11-28] MEDS: FOLIC ACID 1 MG TAB PO SCH (08:44)
[2022-11-28] MEDS: CHOLECALCIFEROL 25 MCG (1000 IU) TABLET PO SCH (08:44)
[2022-11-28 09:26] LABS: Anisocytosis Slight; Basophils % (A) 0 %; Eosinophils % (A) 0 %; HCT 25.1 % (39.0-53.0); HGB 7.9 gm/dL (13.0-17.5); Hypochromasia Marked; Lymphocytes # (A) 0.8 k/uL (1.0-4.8); Lymphocytes % (A) 4 %; MCH 31.7 pg (25.0-35.0); MCHC 31.6 g/dL (31.0-37.0); MCV 100.4 fL (80.0-100.0); Macrocytosis Moderate; Mean Platelet Volume 9.4; Monocytes # (A) 0.7 k/uL (0-1.0); Monocytes % (A) 3 %; Neutrophils # (A) 18.8 k/uL (1.3-7.7); Neutrophils % (A) 93 %; Platelet Count 133 k/uL (150-450); RDW 19.3 % (11.5-15.5); WBC 20.4 k/uL (3.8-10.6)
[2022-11-28 09:47] LABS: Calcium 7.4 mg/dL (8.4-10.2); Magnesium 1.8 mg/dL (1.6-2.3); Potassium 4.4 mmol/L (3.5-5.1)
[2022-11-28] MEDS: LACTATED RINGERS 1,000 ML IV SCH (10:52)
--- NOTE | 2022-11-28 11:22 | P.PN ---
Subjective Progress Note Date: 11/28/22 Principal diagnosis: Bilateral upper extremity weakness; back pain Patient seen and examined this morning. Patient is resting in bed. There has been no changes in patients symptoms of the upper and lower extremities. No issues through the night. He has no acute concerns at this time. He has been afebrile, denies nausea/vomiting, or chest pain. Objective - Vital Signs Vital signs: Vital Signs Temp 97.8 F 11/28/22 04:00 Pulse 98 11/28/22 04:00 Resp 15 11/28/22 04:00 BP 119/77 11/28/22 04:00 Pulse Ox 98 11/28/22 04:00 FiO2 Intake & Output 11/27/22 11/28/22 11/28/22 18:59 06:59 18:59 Intake Total 100 Output Total 1900 2600 Balance -1800 -2600 Weight 118 kg Intake: Intake, IV Titration 0 Amount Lactated Ringers 1,000 ml 0 @ 20 mls/hr IV .Q24H [facility] Rx#:[id number] Oral 100 Output: Urine 1900 2600 Uretheral (Jo) 1900 1900 Other: Voiding Method External Catheter External Catheter # Bowel Movements 1 - Exam Physical Examination General: The patient is awake and alert, in no acute distress Skin: Skin is warm and dry with no obvious rashes or lesions. Hairy patches absent, no dorsal skin dimples, no cafe au lait spots, surgical site in the groin. Eye: Pupils are equal, round and reactive to light, extra-ocular movements are intact; there is normal conjunctiva bilaterally. Neck: The neck is supple, there is no tenderness and ROM intact. Cardiovascular: There is a regular rate and rhythm. No murmur, rub or gallop is appreciated. Left lower 2+ pitting edema present. Respiratory: Lungs are clear to auscultation, respirations are non-labored, breath sounds are equal. Gastrointestinal: Soft, non-distended, non-tender abdomen. Back: There is no tenderness to palpation in the midline, paralumbar, parathoracic or buttocks region. There is no obvious deformity . Musculoskeletal: ROM limited secondary to pain and stiffness from surgical procedure. Muscle strength in all major muscle groups of right upper extremity 3/5, left upper extremity 4/5, bilateral lower extremities 4-/5. Neurological: CN 2-12 intact. There are no obvious motor or sensory deficits. Movement and coordination equal and intact. Sensory exam to light touch intact C5-T1 and intact from L2-S1. Reflexes 2/4 in bilateral upper and lower extremities. Negative Hoffmans, babinski, and clonus signs. Psychiatric: Cooperative, appropriate mood & affect, normal judgment. - Labs CBC & Chem 7: 11/28/22 08:19 11/28/22 08:19 Labs: Abnormal Lab Results - Last 24 Hours (Table) 11/27/22 11/27/22 11/27/22 Range/Units 07:24 07:24 11:55 WBC 19.5 H (3.8-10.6) k/uL RBC 2.37 L (4.30-5.90) m/uL Hgb 7.3 L (13.0-17.5) gm/dL Hct 22.8 L (39.0-53.0) % RDW 19.7 H (11.5-15.5) % Plt Count 141 L (150-450) k/uL Neutrophils # 17.6 H (1.3-7.7) k/uL Chloride 111 H (98-107) mmol/L BUN 33 H (9-20) mg/dL Creatinine 1.27 H (0.66-1.25) mg/dL Glucose 135 H (74-99) mg/dL POC Glucose (mg/dL) 145 H (70-110) mg/dL Calcium 7.3 L (8.4-10.2) mg/dL 11/27/22 11/27/22 11/28/22 Range/Units 17:05 20:22 06:04 WBC (3.8-10.6) k/uL RBC (4.30-5.90) m/uL Hgb (13.0-17.5) gm/dL Hct (39.0-53.0) % RDW (11.5-15.5) % Plt Count (150-450) k/uL Neutrophils # (1.3-7.7) k/uL Chloride (98-107) mmol/L BUN (9-20) mg/dL Creatinine (0.66-1.25) mg/dL Glucose (74-99) mg/dL POC Glucose (mg/dL) 249 H 260 H 211 H (70-110) mg/dL Calcium (8.4-10.2) mg/dL Microbiology - Last 24 Hours (Table) 11/23/22 06:28 Blood Culture - Preliminary Blood No Growth after 96 hours 11/23/22 06:19 Blood Culture - Preliminary Blood No Growth after 96 hours Assessment and Plan Assessment: Bilateral upper extremity weakness Left knee pain Large retroperitoneal hematoma Anemia of unknown origin Plan: Plans for cervical and lumbar surgical procedures have been canceled until patient is medically cleared. Appreciate medical management Pain management - Tylenol DVT prophylaxis -mechanical GI prophylaxis - Protonix; Tums PT/OT - weightbearing as tolerated with walker. Appreciate consult *I reviewed and discussed this case with my attending Dr. Starr, whom has reviewed this chart and films and is in agreement with assessment and plan of care as outlined above. I have personally seen and examined the patient, performed the documentation and the assessment and plan as written. Number of minutes spent on the visit: 15m.
[2022-11-28 11:47] LABS: Glucose,Whole Blood 227 mg/dL (70-110)
--- NOTE | 2022-11-28 12:08 | P.PN ---
Subjective Patient is seen in follow-up for acute kidney injury on chronic kidney disease. Renal function fairly stable. Hemoglobin 7.9 today. Denies any active bleeding. Jo catheter removed yesterday. Nonoliguric. No active complaints. Vital signs are stable. General: No acute distress. HEENT: Head exam is unremarkable. LUNGS: Breath sounds decreased. HEART: Rate and Rhythm are regular. ABDOMEN: Soft, no distention. EXTREMITITES: 1+ edema. Objective - Vital Signs Vital signs: Vital Signs Temp 97.9 F 11/28/22 08:00 Pulse 86 11/28/22 08:00 Resp 16 11/28/22 08:00 BP 116/75 11/28/22 08:00 Pulse Ox 97 11/28/22 08:00 FiO2 Intake & Output 11/27/22 11/28/22 11/28/22 18:59 06:59 18:59 Intake Total 100 118 Output Total 1900 2600 1900 Balance -1800 -2600 -1782 Weight 118 kg Intake: Intake, IV Titration 0 Amount Lactated Ringers 1,000 ml 0 @ 20 mls/hr IV .Q24H [facility] Rx#:[id number] Oral 100 118 Output: Urine 1900 2600 1900 Uretheral (Jo) 1900 1900 1900 Other: Voiding Method External Catheter External Catheter External Catheter # Bowel Movements 1 - Labs CBC & Chem 7: 11/28/22 08:19 11/28/22 08:19 Labs: Abnormal Lab Results - Last 24 Hours (Table) 11/27/22 11/27/22 11/28/22 Range/Units 17:05 20:22 06:04 WBC (3.8-10.6) k/uL RBC (4.30-5.90) m/uL Hgb (13.0-17.5) gm/dL Hct (39.0-53.0) % MCV (80.0-100.0) fL RDW (11.5-15.5) % Plt Count (150-450) k/uL Neutrophils # (1.3-7.7) k/uL Lymphocytes # (1.0-4.8) k/uL Chloride (98-107) mmol/L Carbon Dioxide (22-30) mmol/L BUN (9-20) mg/dL Glucose (74-99) mg/dL POC Glucose (mg/dL) 249 H 260 H 211 H (70-110) mg/dL Calcium (8.4-10.2) mg/dL 11/28/22 11/28/22 11/28/22 Range/Units 08:19 08:19 11:45 WBC 20.4 H (3.8-10.6) k/uL RBC 2.50 L (4.30-5.90) m/uL Hgb 7.9 L (13.0-17.5) gm/dL Hct 25.1 L (39.0-53.0) % MCV 100.4 H (80.0-100.0) fL RDW 19.3 H (11.5-15.5) % Plt Count 133 L (150-450) k/uL Neutrophils # 18.8 H (1.3-7.7) k/uL Lymphocytes # 0.8 L (1.0-4.8) k/uL Chloride 110 H (98-107) mmol/L Carbon Dioxide 21 L (22-30) mmol/L BUN 31 H (9-20) mg/dL Glucose 199 H (74-99) mg/dL POC Glucose (mg/dL) 227 H (70-110) mg/dL Calcium 7.4 L (8.4-10.2) mg/dL Microbiology - Last 24 Hours (Table) 11/23/22 06:28 Blood Culture - Preliminary Blood No Growth after 120 hours 11/23/22 06:19 Blood Culture - Preliminary Blood No Growth after 120 hours Assessment and Plan Plan: Assessment: 1. Acute kidney injury mostly prerenal secondary to acute blood loss anemia and urinary retention. Renal function stable. Creatinine 1.11 today. Patient received IV contrast on 11/23/2022. 2. Chronic kidney disease stage II with baseline creatinine 1-1.1. 3. Urinary retention. Jo catheter removed 11/27/2022. On Flomax. 4. Lower extremity edema maintained on Lasix. Better. 5. Hyperkalemia secondary to GI bleed and acidosis. Stable. 6. GI bleed status post blood transfusion this admission. CAT scan showed large intramuscular hematoma. Hemoglobin 7.9 today. Surgery following. 7. Metabolic acidosis secondary to acute kidney injury and GI losses maintained on oral bicarbonate. 8. Hypomagnesemia from diuresis. Replaced. Stable. Plan: Maintain Lasix. Monitor hemoglobin and transfuse as needed. Defer to primary and surgery team. Avoid nephrotoxins.
--- NOTE | 2022-11-28 13:27 | P.PN ---
Subjective Progress Note Date: 11/27/22 62-year-old male in the emergency department for diarrhea. She notes diarrhea starting and he asked progressively gotten worse. He reports he stood up from a chair and had an episode of diarrhea, admits he still maintains bowel function. He has not tried anything for his symptoms. He denies nausea, vomiting, abdominal pain, palpitations, fevers. Denies recent travel or recent antibiotic use. He is scheduled to have his first colonoscopy in january of 2023. Patient had an initial lab work is remarkable for WBC is 11.4, hemoglobin 8.7, INR 1.2, sodium 133, potassium 2.6 lactic acid 2.9, calcium 6.3, magnesium 0.8, lipase 60, COVID positive. I interpreted the following; CT abdomen without contrast remarkable for fluid filled colon without focal wall thickening or surrounding inflammatory changes. Patient was given 2 L fluids, potassium, magnesium and calcium during his course of the ED. 11/08/2022 Patient is seen and evaluated on selective care unit; he went into atrial fibrillation with rapid ventricular response he was transferred to the [facility]. The patient did not have any symptoms of heart racing or fluttering and no dizziness or lightheadedness and no presyncope or syncope and no symptoms of chest pain or chest discomfort or shortness of breath. No prior history of atrial fibrillation. No history of coronary artery disease or congestive heart failure or cardiac arrhythmia and the patient never seen a exercise science internship in the past. Beside that no history of diabetes or hypertension or dyslipidemia. The patient was started initially on Cardizem drip but his pressure did go down and for that reason he was switched into amiodarone IV and subsequently converted to normal sinus mechanism and since then he has been maintaining normal sinus mechanism. Further investigation was performed including CBC and that showed a hemoglobin of 7.7. The patient has no history of bleeding. Beside that he underwent a computed tomography scan of the abdomen and pelvis because of the abdominal discomfort that showed no acute abnormalities. The troponin came in to be slightly elevated likely secondary to tachycardia. The EKG showed sinus rhythm now with no significant ST or T-wave abnormalities. Blood work reveals mild elevation of troponin; Patient has been evaluated by cardiology and recommended to continue with IV fluids, replace electrolytes; IV amiodarone is to be discontinued patient is transition to oral dose daily 11/09/2022 Patient is seen and evaluated in follow-up this morning and continues to feel generalized weakness and continues with loose stools. Per nursing staff when assisting to clean the patient up patient was significantly weak on the right. Patient denied any headache, dizziness, or lightheadedness. Will obtain a CT of the brain and also consult neurology. Recommend PT/OT therapy evaluation for significant weakness. C. diff testing was negative on the stool and will add Imodium and encourage oral intake and advance as tolerated. Patient is maintaining on vitamins and zinc supplements along with subcutaneous heparin with anxiety following closely. Patient denies chest pain or shortness of breath. Afebrile. Recommend a.m. labs as well. 11/10/2022 Patient is seen in follow-up today with multiple medical consultations including cardiology, hematology, infectious disease, and now neurology following. Patient with significant weakness in all upper and lower extremities with neurology undergoing workup recommending aspirin as patient is not on any anticoagulation at this time. Cardiology is following and patient was transitioned back to IV Cardizem although being changed to oral with close monitoring. Magnesium found to be significantly low at 1.2 and will replace per protocol and recommend repeat labs. Hemoglobin is mildly low at 7.4 and undergoing anemia workup with hematology following. Patient with Covid and extreme weakness will need ECF and discharge planning in process. Recommend close monitoring of labs and replace electrolytes per protocol. Patient was started on Imodium as C. diff testing 2 was negative. Patient continues to have loose stools although somewhat improved. Encouraged oral intake and increased activity as tolerated. Recommend PT/OT therapy daily. Patient denies chest pain or shortness of breath. Patient is 97% on room air. Patient will continue on vitamin and zinc supplements with anxiety following closely. Re commend gentle IV hydration. 11/11/2022 Patient is seen and evaluated in follow-up with multiple medical consultations following including infectious disease and neurology. Oncology following underg oing anemia workup. Hemoglobin was found to be 6.5 today and will order 1 unit of PRBC and recommend close monitoring. No active bleeding noted. Patient was started on baby aspirin per neurology and scheduled to undergo MRI of the cervical spine today. Patient continues with significant weakness and will need rehab upon discharge. Patient is maintained on vitamin and zinc supplements and was also being followed by cardiology. Adjustments to medications being done and patient is on oral Cardizem. Will follow-up with repeat labs. Patient is afebrile and denies shortness of breath. Patient clinically appears to be improving. Per nursing staff patient is incontinent of stool in continues to be somewhat loose although less frequent. C. diff testing was negative and stool cultures are negative. Encouraged oral intake. Will discuss with case management about discharge planning to ECF as he will require a Covid hub. 11/12/2022 Patient is seen and evaluated in follow-up today with multiple medical consultations following including infectious disease, cardiology, neurology. Fazal brito's hemoglobin is low again at 6.8 and will give 1 unit. Recommend holding aspirin. Patient did have an elevated d-dimer and CTA was ordered. GI was also consulted for anemia. Patient continues to have incontinence of stool and loose stools and is maintained on Questran and will be given Imodium as needed. Patient continues with generalized weakness and fatigue and also having some lower extremity pain and swelling and have ordered Dopplers of bilateral lower extremities as well. Patient with Covid vitamin and zinc supplements and anticoagulation with subcu heparin. Hematology also following for anemia. Recommend repeat CBC this evening and will transfuse another unit as well. C ardiology following and adjustments to medications being made and patient also being started on low-dose diuretics. Patient is having low-grade temps of 99.3- 99.6 and patient continues to be 95% or above on room air. Blood pressure on the lower side although stable. Stool cultures and C. diff testing have been negative. Patient started on antibiotics per ID recommendations in the form of Zithromax and ceftriaxone. Reviewed iron studies which are low and will give IV iron as well. Electrolytes continue to be low and will replace per protocol. Patient will need ECF once stabilized and discharged 11/13/2022 Patient is seen today with multiple medical consultations following and undergo ing neurological workup and having bilateral upper and lower extremity weakness. Neurology recommends orthopedic consultation which is currently pending. Patient did have some movement in his diarrhea and reports becoming more formed and less frequent. Patient continues to be incontinent of this. Patient being started on antibiotics with anxiety following an also continues to have anemia. GI recommending continuing with hematology workup. Multiple images including MRIs and pending at time. Patient with significant weakness will be going to rehab when stable. A.m. labs are pending. 11/14/2022 This is a pleasant 62 years old male with Covid pneumonia and bacterial pneumonia especially in the right lower lobe. His been covered with Zithromax and ceftriaxone with ID team and pulmonary team on the case. His breathing looks improvement, now much tachypnea or dyspnea. She is complaining of from bilateral upper extremity weakness, MRI ordered by orthopedic team showing spinal stenosis of C5 to C6 with possible osteo-discitis of L3-L4 and orthopedic team R following closely. Also he is on dexamethasone Patient had ultrasound of the legs showing no DVT on the right leg with non-o cclusive thrombosis of the left leg. Hematology team are currently following with and he is patient on subcutaneous heparin. Patient still have diarrhea about 3 times per day yesterday no abdominal pain or vomiting. Patient currently on Zithromax and ceftriaxone, oral Lasix and normal saline 75 mL/h 11/15/2022 Patient Covid pneumonia is improving and he has minimal respiratory symptoms, no dyspnea at rest, patient is not working, no chest pain, occasional coughing, he is saturating well and he continued on treatment with dexamethasone which is helping also has a spine disease as he has C5-C6 stenosis orthopedic team on the case, no surgical intervention Also his continued on Zithromax and ceftriaxone for his pneumonia with ID team on the case. Patient has left leg swelling most likely secondary to nonocclusive DVT however patient could not get anticoagulation because of his severe anemia, hematology input is appreciated, anticoagulation has more risks than benefits. We are going to check occult blood in the stool, hemoglobin today slightly going down 7.3. However anemia workup showing some evidence of anemia of chronic disease patient also with A. fib but no need for intervention for this purpose as her score 0. Director Long Term Care. 11/16/2022 Patient still has bilateral upper extremity weakness mainly on the right side, thought secondary to C5-C6 is stenosis with no plan for surgical intervention by orthopedic team. Patient also on dexamethasone for Covid pneumonia and Zithromax ceftriaxone for possible bacterial superinfection especially in the right lower lobe. Her satur ation is acceptable. Blood pressure is stable low-normal. There is no evidence of bleeding, occult blood in the stool is negative. Patient has evidence of left DVT, his anemia although severe as most likely secondary to anemia of chronic disease, repeat anemia workup was requested, I discussed the case with hematology team, possibly we will start him on anticoagulation once workup is finished. No need for anticoagulation or aspirin for A. fib per Director Long Term Care. No need for aspirin also per neurologist. 11/17/2022 Patient awake sitting up in bed looks comfortable. His breathing is improved while continue current antibiotic Patient is still have weakness more the right arm and left arm, Orthopedic team on the case and they recommended MRI of the whole spine which is pending. Also I discussed with the bedside nurse disorder hard collar. He still on heparin drip for his left leg DVT, benefits more than risk. Monitor hemoglobin 11/18/2022 Patient sitting up in bed does not look in distress, he does not have new complaint His been followed by orthopedic team and MRI of the spine is pending for his right upper extremity weakness more on the right side. Other than that his her pneumonia significantly improved and currently he is on ceftriaxone. Also he is on dexamethasone for his Covid infection. Patient is tolerated heparin drip. For his left leg DVT with hematology team recommendation. Hemoglobin today actually improvement 7.9. Patient would benefit from EGD/colonoscopy as an outpatient. Normal saline was discontinued. 11/19/2022 Patient sitting up in bed denies any complaint. He continue on ceftriaxone for right lower lobe pneumonia and dexamethasone for Covid pneumonia. Also he is on heparin drip for left leg DVT, which is mildly swollen compared to the right side. Patient with persistent hyperkalemia with channel rougher consulted, patient is started on IV Lasix, and sodium bicarbonate and check renal ultrasound. Orthopedic team following, MRI of the spine pending. 11/20/2022 Patient is currently resting in the bed. Awake alert and oriented 3. Still having right upper extremity weakness. Patient is afebrile otherwise. No complains of chest pain or shortness of breath. Currently on room air. Laboratory data showed WBC 21.8 mg on 0.0 platelets 262 Sodium 133 potassium 5.7, chloride 107 bicarb is 14 BUN 26 and creatinine 1.04 and calcium 7.2 Patient is being continued on heparin drip. On Cardizem by mouth. MRI of the thoracic spine and lumbar spine to be done today. 11/21/2022 Patient is resting in bed. Awake alert and oriented 3. No complaints of chest pain or shortness of breath. Currently on room air. No nausea vomiting or abdominal pain or diarrhea. MRI cervical spine showed possible discitis. Orthopedic surgery is on board. Patient still having the right upper extremity weakness. Otherwise is planning for OR on Wednesday. Laboratory data showed WBC 22.6-year-old 7.5 platelets 266. CRP level is less than 0.5. Patient is being continued on heparin drip for lower extremity DVT. Orthopedic surgery, ID and nephrology is on board. 11/22/2022 Patient is resting in bed. Awake alert and oriented. No complaints of chest pain or shortness of breath. Patient states that he is still having right upper extremity weakness. No complaints of nausea vomiting abdominal pain or diarrhea. Tolerating oral diet. Patient is being continued on heparin drip and is scheduled for cervical surgery on Wednesday. Laboratory data showed WBC 22.9 hemoglobin 7.0 and platelets 254 sodium 132 potassium 5.4 chloride 114 bicarb is 17 BUN 30 and creatinine 1.13 and calcium 7.2. 11/23/2022 Patient is lying in the bed. Awake alert and oriented x3. No complaints of chest pain or shortness of breath. Right upper extremity weakness remains the s estuardo. Patient otherwise reported to have abdominal discomfort and back discomfort. Hemoglobin dropped down to 5.9 this morning. Drainage of PRBC transfusion was ordered. CT of the abdomen pelvis was ordered without retroperitoneal bleed. Otherwise blood pressures 129/85 pulse is 74 respirate 18 pulse ox 94% on room air. Will hold aspirin if there is any signs of retroperitoneal bleed. Patient is otherwise scheduled for cervical surgery tomorrow. 11/24/2022 Patient is currently resting in the bed. Awake alert and oriented x3. No complaints of chest pain or shortness of breath. Left lower abdominal discomfort is improved. Hemoglobin is stable. Vascular surgery has seen the patient is planning for IVC filter placement. Heparin is on hold due to retroperitoneal bleed. Laboratory data showed WBC 25.6 hemoglobin 7.1 and platelets 159 sodium 131 potassium 5.7 chloride 112 bicarb is 37 creatinine 1.18 and calcium 7.0. Nephrology, ID and vascular surgery is on board. 11/25/2022 Patient is currently resting in bed. Awake alert and oriented x3. On room air. No complaints of chest pain or shortness of breath. No abdominal pain. No nausea vomiting abdominal pain or diarrhea. Patient is scheduled for IVC filter placement today. Otherwise hemoglobin level is 6.8 and 1 unit of PRBC was ordered. Other laboratory data showed WBC 20.6 hemoglobin 6.8 and platelets 149 sodium 135 potassium 5.4 chloride 101 bicarb is 23 BUN 34 and creatinine 1.25. Magnesium 1.6. Patient is being continued dexamethasone as per orthopedic surgery. Also on IV Lasix. Nephrology and general surgery is on board. Patient was given a dose of Lokelma yesterday. 11/26/2022 Patient is currently resting in bed. Awake alert and oriented x3. No complaints of back pain or abdominal pain. No nausea vomiting abdominal pain or diarrhea. No cough or sputum production. Currently on room air. Patient is status post IVC filter placement on 11/25/2022. Patient received 1 unit of PRBC yesterday and hemoglobin improved to 7.6 today. Level data showed WBC 22.3 hemoglobin 7.6 and platelets 141 sodium 136 potassium 5.3 chloride 101 bicarb is 23 BUN 32 and creatinine 1.23 and blood sugar is 125 and calcium 7.2. Magnesium 1.9. Follow-up CBC and BMP was ordered. Orthopedic surgery is planning for OR when medically stable tomorrow. 11/27/2022 Patient is resting in bed. Awake alert and oriented x3. No complaints of abdominal pain or back pain. No nausea vomiting or diarrhea. Tolerating oral diet. Patient is status post IVC filter placement due to retroperitoneal bleed while on heparin drip. Orthopedic surgery is on board and is planning for cervical spine surgery due to right upper gluteal weakness when medically stable. Laboratory test showed WBC 19.4 hemoglobin 7.3 and platelets 141 sodium 137 potassium 5.0 chloride 101 bicarb is 25 BUN 33 and creatinine 1.27 and magnesium 1.8. Current medications reviewed. Objective - Vital Signs Vital signs: Vital Signs Temp 97.8 F 11/27/22 20:00 Pulse 68 11/27/22 20:00 Resp 18 11/27/22 20:00 BP 107/66 11/27/22 20:00 Pulse Ox 95 11/27/22 20:00 FiO2 Intake & Output 11/27/22 11/27/22 11/28/22 06:59 18:59 06:59 Intake Total 100 Output Total 750 1900 200 Balance -750 -1800 -200 Weight 119 kg Intake: Intake, IV Titration 0 Amount Lactated Ringers 1,000 ml 0 @ 20 mls/hr IV .Q24H [facility] Rx#:[id number] Oral 100 Output: Urine 750 1900 200 Uretheral (Jo) 1900 Other: Voiding Method Indwelling Catheter External Catheter External Catheter - Exam - Exam -GENERAL: The patient is alert and oriented x3, not in any acute distress. Well developed, well nourished. Generally weak -HEENT: Pupils are round and equally reacting to light. EOMI. No scleral icterus. No conjunctival pallor. Normocephalic, atraumatic. No pharyngeal erythema. No thyromegaly. Dry mucous membranes, mild CARDIOVASCULAR: S1 and S2 present. No murmurs, rubs, or gallops. PULMONARY: Chest is clear to auscultation, no wheezing or crackles. ABDOMEN: Soft, nontender, nondistended, normoactive bowel sounds. No palpable organomegaly. MUSCULOSKELETAL: No joint swelling or deformity. -EXTREMITIES: No cyanosis, clubbing, or pedal edema. left leg swelling NEUROLOGICAL: Gross neurological examination did not reveal any focal deficits. SKIN: No rashes. no petechiae. - Labs CBC & Chem 7: 11/28/22 08:19 11/28/22 08:19 Labs: Abnormal Lab Results - Last 24 Hours (Table) 11/27/22 11/27/22 11/27/22 Range/Units 06:11 07:24 07:24 WBC 19.5 H (3.8-10.6) k/uL RBC 2.37 L (4.30-5.90) m/uL Hgb 7.3 L (13.0-17.5) gm/dL Hct 22.8 L (39.0-53.0) % RDW 19.7 H (11.5-15.5) % Plt Count 141 L (150-450) k/uL Neutrophils # 17.6 H (1.3-7.7) k/uL Chloride 111 H (98-107) mmol/L BUN 33 H (9-20) mg/dL Creatinine 1.27 H (0.66-1.25) mg/dL Glucose 135 H (74-99) mg/dL POC Glucose (mg/dL) 179 H (70-110) mg/dL Calcium 7.3 L (8.4-10.2) mg/dL 11/27/22 11/27/22 11/27/22 Range/Units 11:55 17:05 20:22 WBC (3.8-10.6) k/uL RBC (4.30-5.90) m/uL Hgb (13.0-17.5) gm/dL Hct (39.0-53.0) % RDW (11.5-15.5) % Plt Count (150-450) k/uL Neutrophils # (1.3-7.7) k/uL Chloride (98-107) mmol/L BUN (9-20) mg/dL Creatinine (0.66-1.25) mg/dL Glucose (74-99) mg/dL POC Glucose (mg/dL) 145 H 249 H 260 H (70-110) mg/dL Calcium (8.4-10.2) mg/dL Microbiology - Last 24 Hours (Table) 11/23/22 06:28 Blood Culture - Preliminary Blood No Growth after 96 hours 11/23/22 06:19 Blood Culture - Preliminary Blood No Growth after 96 hours Assessment and Plan Assessment: Acute blood loss. hb 5.9 due to retroperitoneal bleed. Denies any hematemesis or melena. 2 units of PRBC was ordered.Hemoglobin is stable now.Hemoglobin 7.3 today. Hyperkalemia due to GI bleed.improved Bilateral Pneumonia with superimposed gram-negative bacterial infection is suspected mainly in the right lower lobe. Completed antibiotic course. Acute hypoxic respiratory failure. Titrate down to room air.. Sepsis secondary to above Left lower extremity DVT. Was on heparin drip which was stopped due to retroperitoneal bleed. Patient is status post IVC filter placement on 11/25/2022.. Possible discitis as per MRI cervical spine. Hyperkalemia due to urinary retention and acute kidney injury. Improving now. Anemia with vitamin B12 deficiency and currently on IM B12 replacement therapy Elevated troponin, most likely type II. No chest pain, normal LV function Low vitamin B12 and B6 Nonocclusive thrombosis of the left leg Paroxysmal atrial fibrillation no anticoagulation with score of 0 per Director Long Term Care Plan: CT of the abdomen pelvis showed retroperitoneal hemorrhage and intramuscular hematoma. Heparin has been discontinued. Patient was transfused with 2 units of PRBC. Hemoglobin is stable. Patient is s/p IVC filter placement by vascular surgery, Patient is status post IVC filter placement on 11/25/2022.. Patient completed antibiotic course. Ceftriaxone has been discontinued. Continue with dexamethasone per orthopedic team Continue with vitamin B12 replacement therapy Continue with IV Lasix 40 mg daily and sodium bicarb MRI cervical spine showed possible discitis. Orthopedic surgery was planning for or on Wednesday,.But postponed due to retroperitoneal bleed. Several consultants on the case including neurologist, band maker, exercise science internship, GI (signed off, no GI coverage this week), infectious disease team and orthopedic team DVT prophylaxis: Dced heparin drip currently. GI Prophylaxis: Ppi PT/OT: Pending Prognosis is guarded Time with Patient: Greater than 30
[2022-11-28] MEDS ORDERED: MAGNESIUM SULFATE-D5W PMX 1 GM in DEXTROSE/WATER 1 100ML.BAG IVPB ONE (14:30)
[2022-11-28 14:37] VITALS: BMI 32.5
--- NOTE | 2022-11-28 15:15 | P.PN ---
Subjective Progress Note Date: 11/28/22 Principal diagnosis: Covid 19 Patient is a 62-year-old male who is unvaccinated for COVID-19 patient was brought into the ER for evaluation of weakness no energy mention the patient was not able to get stand up and go to the bathroom patient has been dealing with the diarrhea off and on for couple of weeks, patient was noticed to have a positive covid test, however the patient was not hypoxic and CT abdominal pelvis with few bibasilar patchy groundglass opacity representing atelectasis and no evidence of colitis. Patient did have a drop in his hemoglobin and underwent a CT angiogram that demonstrated a large intramuscular hematoma in the left iliac is muscle in the retroperitoneum. Patient is status post Romulus filter placement on 11/25/2022 On today's evaluation that is 11/28/2022, the patient continues to be afebrile, the patient is breathing comfortably on room air, The patient denies chest pain , the patient did have occasional dry cough, the patient denies nausea no vomiting no abdominal pain no diarrhea Objective - Vital Signs Vital signs: Vital Signs Temp 97.9 F 11/28/22 08:00 Pulse 86 11/28/22 08:00 Resp 16 11/28/22 08:00 BP 116/75 11/28/22 08:00 Pulse Ox 97 11/28/22 08:00 FiO2 Intake & Output 11/27/22 11/28/22 11/28/22 18:59 06:59 18:59 Intake Total 100 118 Output Total 1900 2600 1900 Balance -1800 2600 -2697 Weight 118 kg Intake: Intake, IV Titration 0 Amount Lactated Ringers 1,000 ml 0 @ 20 mls/hr IV .Q24H COUNT INCLUDES THE [facility] Rx#:[id number] Oral 100 118 Output: Urine 1900 2600 1900 Uretheral (Jo) 1900 1900 1900 Other: Voiding Method External Catheter External Catheter External Catheter # Bowel Movements 1 - Exam GENERAL DESCRIPTION: An elderly male lying in bed in no distress RESPIRATORY SYSTEM: Unlabored breathing , decreased breath sounds at bases HEART: S1 S2 regular rate and rhythm , ABDOMEN: Soft , no tenderness EXTREMITIES: No edema feet - Labs CBC & Chem 7: 11/28/22 08:19 11/28/22 08:19 Labs: Abnormal Lab Results - Last 24 Hours (Table) 11/27/22 11/27/22 11/28/22 Range/Units 17:05 20:22 06:04 WBC (3.8-10.6) k/uL RBC (4.30-5.90) m/uL Hgb (13.0-17.5) gm/dL Hct (39.0-53.0) % MCV (80.0-100.0) fL RDW (11.5-15.5) % Plt Count (150-450) k/uL Neutrophils # (1.3-7.7) k/uL Lymphocytes # (1.0-4.8) k/uL Chloride (98-107) mmol/L Carbon Dioxide (22-30) mmol/L BUN (9-20) mg/dL Glucose (74-99) mg/dL POC Glucose (mg/dL) 249 H 260 H 211 H (70-110) mg/dL Calcium (8.4-10.2) mg/dL 11/28/22 11/28/22 11/28/22 Range/Units 08:19 08:19 11:45 WBC 20.4 H (3.8-10.6) k/uL RBC 2.50 L (4.30-5.90) m/uL Hgb 7.9 L (13.0-17.5) gm/dL Hct 25.1 L (39.0-53.0) % MCV 100.4 H (80.0-100.0) fL RDW 19.3 H (11.5-15.5) % Plt Count 133 L (150-450) k/uL Neutrophils # 18.8 H (1.3-7.7) k/uL Lymphocytes # 0.8 L (1.0-4.8) k/uL Chloride 110 H (98-107) mmol/L Carbon Dioxide 21 L (22-30) mmol/L BUN 31 H (9-20) mg/dL Glucose 199 H (74-99) mg/dL POC Glucose (mg/dL) 227 H (70-110) mg/dL Calcium 7.4 L (8.4-10.2) mg/dL Microbiology - Last 24 Hours (Table) 11/23/22 06:28 Blood Culture - Preliminary Blood No Growth after 120 hours 11/23/22 06:19 Blood Culture - Preliminary Blood No Growth after 120 hours Assessment and Plan (1) COVID-19 Current Visit: Yes Status: Acute Priority: High Code(s): U07.1 - COVID-19 SNOMED Code(s): 539963930 Plan: 1patient did have a abnormal MRI of the cervical spine as well as lumbar spine with a questionable discitis reported by radiologist however the patient did have normal sed rate and a CRP 2, patient is currently being monitor closely off antibiotic therapy to increase the yield of any culture to be done at the time of surgery . Apparently the patient is not stable to undergo surgery per orthopedics, IR unable to do CT-guided aspirate of the affected lumbar spine for microbiological diagnosis, will discuss further with the orthopedics 2leukocytosis is more likely steroid related and now with evidence of muscle hematoma as well as retroperitoneal hematoma and the patient is status post Tali filter placement and is currently being monitored closely off antibiotic therapy Patient and family has multiple questions were answered in Layman terms Time with Patient: Less than 30
[2022-11-28 17:27] LABS: Glucose,Whole Blood 318 mg/dL (70-110)
[2022-11-28] MEDS: TAMSULOSIN 0.4 MG CAP.ER.24H PO SCH (18:34)
[2022-11-28 20:08] LABS: Glucose,Whole Blood 288 mg/dL (70-110)
--- NOTE | 2022-11-28 20:11 | P.PN ---
Subjective Progress Note Date: 11/28/22 No moderate back or abdominal pain. Hgb continues to improve in the last 2 days for retropertioneal hematoma. Conservative management advised. No acute surgical intervention. Objective - Vital Signs Vital signs: Vital Signs Temp 98.4 F 11/28/22 15:18 Pulse 76 11/28/22 15:18 Resp 18 11/28/22 15:18 BP 125/78 11/28/22 15:18 Pulse Ox 99 11/28/22 15:18 FiO2 Intake & Output 11/28/22 11/28/22 11/29/22 06:59 18:59 06:59 Intake Total 236 Output Total 2600 1900 Balance -2600 -1664 Weight 118 kg 118 kg Intake: Oral 236 Output: Urine 2600 1900 Uretheral (Jo) 1900 1900 Other: Voiding Method External Catheter External Catheter # Bowel Movements 1 - Labs CBC & Chem 7: 11/28/22 08:19 11/28/22 08:19 Labs: Abnormal Lab Results - Last 24 Hours (Table) 11/27/22 11/28/22 11/28/22 Range/Units 20:22 06:04 08:19 WBC (3.8-10.6) k/uL RBC (4.30-5.90) m/uL Hgb (13.0-17.5) gm/dL Hct (39.0-53.0) % MCV (80.0-100.0) fL RDW (11.5-15.5) % Plt Count (150-450) k/uL Neutrophils # (1.3-7.7) k/uL Lymphocytes # (1.0-4.8) k/uL Chloride 110 H (98-107) mmol/L Carbon Dioxide 21 L (22-30) mmol/L BUN 31 H (9-20) mg/dL Glucose 199 H (74-99) mg/dL POC Glucose (mg/dL) 260 H 211 H (70-110) mg/dL Calcium 7.4 L (8.4-10.2) mg/dL 11/28/22 11/28/22 11/28/22 Range/Units 08:19 11:45 17:26 WBC 20.4 H (3.8-10.6) k/uL RBC 2.50 L (4.30-5.90) m/uL Hgb 7.9 L (13.0-17.5) gm/dL Hct 25.1 L (39.0-53.0) % MCV 100.4 H (80.0-100.0) fL RDW 19.3 H (11.5-15.5) % Plt Count 133 L (150-450) k/uL Neutrophils # 18.8 H (1.3-7.7) k/uL Lymphocytes # 0.8 L (1.0-4.8) k/uL Chloride (98-107) mmol/L Carbon Dioxide (22-30) mmol/L BUN (9-20) mg/dL Glucose (74-99) mg/dL POC Glucose (mg/dL) 227 H 318 H (70-110) mg/dL Calcium (8.4-10.2) mg/dL 11/28/22 Range/Units 20:04 WBC (3.8-10.6) k/uL RBC (4.30-5.90) m/uL Hgb (13.0-17.5) gm/dL Hct (39.0-53.0) % MCV (80.0-100.0) fL RDW (11.5-15.5) % Plt Count (150-450) k/uL Neutrophils # (1.3-7.7) k/uL Lymphocytes # (1.0-4.8) k/uL Chloride (98-107) mmol/L Carbon Dioxide (22-30) mmol/L BUN (9-20) mg/dL Glucose (74-99) mg/dL POC Glucose (mg/dL) 288 H (70-110) mg/dL Calcium (8.4-10.2) mg/dL Microbiology - Last 24 Hours (Table) 11/23/22 06:28 Blood Culture - Preliminary Blood No Growth after 120 hours 11/23/22 06:19 Blood Culture - Preliminary Blood No Growth after 120 hours
[2022-11-28] MEDS: MELATONIN 3 MG TABLET PO SCH (21:15)
[2022-11-29] MEDS: DEXAMETHASONE SOD PHOSPHATE 4 MG/ML 1 ML VIAL IVP SCH ×5 (00:51→23:24)
[2022-11-29] MEDS: SODIUM BICARBONATE TAB 650 MG TAB PO SCH ×4 (00:53→20:50)
--- NOTE | 2022-11-29 05:28 | P.PN ---
Subjective Progress Note Date: 11/28/22 Paroxysmal atrial fibrillation Intractable nausea/vomiting/diarrhea Profound hypokalemia Acute renal injury COVID-19 infection 62-year-old male in the emergency department for diarrhea. She notes diarrhea starting and he asked progressively gotten worse. He reports he stood up from a chair and had an episode of diarrhea, admits he still maintains bowel function. He has not tried anything for his symptoms. He denies nausea, vomiting, abdominal pain, palpitations, fevers. Denies recent travel or recent antibiotic use. He is scheduled to have his first colonoscopy in january of 2023. Patient had an initial lab work is remarkable for WBC is 11.4, hemoglobin 8.7, INR 1.2, sodium 133, potassium 2.6 lactic acid 2.9, calcium 6.3, magnesium 0.8, lipase 60, COVID positive. I interpreted the following; CT abdomen without contrast remarkable for fluid filled colon without focal wall thickening or surrounding inflammatory changes. Patient was given 2 L fluids, potassium, magnesium and calcium during his course of the ED. 11/08/2022 Patient is seen and evaluated on selective care unit; he went into atrial fibrillation with rapid ventricular response he was transferred to the third floor/selective minute. The patient did not have any symptoms of heart racing or fluttering and no dizziness or lightheadedness and no presyncope or syncope and no symptoms of chest pain or chest discomfort or shortness of breath. No prior history of atrial fibrillation. No history of coronary artery disease or congestive heart failure or cardiac arrhythmia and the patient never seen a geomorphologist in the past. Beside that no history of diabetes or hypertension or dyslipidemia. The patient was started initially on Cardizem drip but his pressure did go down and for that reason he was switched into amiodarone IV and subsequently converted to normal sinus mechanism and since then he has been maintaining normal sinus mechanism. Further investigation was performed including CBC and that showed a hemoglobin of 7.7. The patient has no history of bleeding. B eside that he underwent a computed tomography scan of the abdomen and pelvis because of the abdominal discomfort that showed no acute abnormalities. The troponin came in to be slightly elevated likely secondary to tachycardia. The EKG showed sinus rhythm now with no significant ST or T-wave abnormalities. Blood work reveals mild elevation of troponin; Patient has been evaluated by cardiology and recommended to continue with IV fluids, replace electrolytes; IV amiodarone is to be discontinued patient is transition to oral dose daily 11/09/2022 Patient is seen and evaluated in follow-up this morning and continues to feel generalized weakness and continues with loose stools. Per nursing staff when assisting to clean the patient up patient was significantly weak on the right. Patient denied any headache, dizziness, or lightheadedness. Will obtain a CT of the brain and also consult neurology. Recommend PT/OT therapy evaluation for significant weakness. C. diff testing was negative on the stool and will add Imodium and encourage oral intake and advance as tolerated. Patient is ma intaining on vitamins and zinc supplements along with subcutaneous heparin with anxiety following closely. Patient denies chest pain or shortness of breath. Afebrile. Recommend a.m. labs as well. 11/10/2022 Patient is seen in follow-up today with multiple medical consultations including cardiology, hematology, infectious disease, and now neurology following. Patient with significant weakness in all upper and lower extremities with neurology undergoing workup recommending aspirin as patient is not on any anticoagulation at this time. Cardiology is following and patient was transitioned back to IV Cardizem although being changed to oral with close monitoring. Magnesium found to be significantly low at 1.2 and will replace per protocol and recommend repeat labs. Hemoglobin is mildly low at 7.4 and undergoing anemia workup with hematology following. Patient with Covid and extreme weakness will need ECF and discharge planning in process. Recommend close monitoring of labs and replace electrolytes per protocol. Patient was started on Imodium as C. diff testing 2 was negative. Patient continues to have loose stools although somewhat improved. Encouraged oral intake and incr eased activity as tolerated. Recommend PT/OT therapy daily. Patient denies chest pain or shortness of breath. Patient is 97% on room air. Patient will continue on vitamin and zinc supplements with anxiety following closely. Recommend gentle IV hydration. 11/11/2022 Patient is seen and evaluated in follow-up with multiple medical consultations following including infectious disease and neurology. Oncology following undergoing anemia workup. Hemoglobin was found to be 6.5 today and will order 1 unit of PRBC and recommend close monitoring. No active bleeding noted. Patient was started on baby aspirin per neurology and scheduled to undergo MRI of the cervical spine today. Patient continues with significant weakness and will need rehab upon discharge. Patient is maintained on vitamin and zinc supplements and was also being followed by cardiology. Adjustments to medications being done and patient is on oral Cardizem. Will follow-up with repeat labs. Patient is afebrile and denies shortness of breath. Patient clinically appears to be improving. Per nursing staff patient is incontinent of stool in continues to be somewhat loose although less frequent. C. diff testing was negative and stool cultures are negative. Encouraged oral intake. Will discuss with case management about discharge planning to ECF as he will require a Covid hub. 11/12/2022 Patient is seen and evaluated in follow-up today with multiple medical consultations following including infectious disease, cardiology, neurology. Patient's hemoglobin is low again at 6.8 and will give 1 unit. Recommend holding aspirin. Patient did have an elevated d-dimer and CTA was ordered. GI was also consulted for anemia. Patient continues to have incontinence of stool and loose stools and is maintained on Questran and will be given Imodium as needed. Patient continues with generalized weakness and fatigue and also having some lower extremity pain and swelling and have ordered Dopplers of bilateral lo wer extremities as well. Patient with Covid vitamin and zinc supplements and anticoagulation with subcu heparin. Hematology also following for anemia. Recommend repeat CBC this evening and will transfuse another unit as well. Cardiology following and adjustments to medications being made and patient also being started on low-dose diuretics. Patient is having low-grade temps of 99.3- 99.6 and patient continues to be 95% or above on room air. Blood pressure on the lower side although stable. Stool cultures and C. diff testing have been negative. Patient started on antibiotics per ID recommendations in the form of Zithromax and ceftriaxone. Reviewed iron studies which are low and will give IV iron as well. Electrolytes continue to be low and will replace per protocol. Patient will need ECF once stabilized and discharged 11/13/2022 Patient is seen today with multiple medical consultations following and undergoing neurological workup and having bilateral upper and lower extremity weakness. Neurology recommends orthopedic consultation which is currently pending. Patient did have some movement in his diarrhea and reports becoming more formed and less frequent. Patient continues to be incontinent of this. Patient being started on antibiotics with anxiety following an also continues to have anemia. GI recommending continuing with hematology workup. Multiple images including MRIs and pending at time. Patient with significant weakness will be going to rehab when stable. A.m. labs are pending. 11/24/2022 Patient is currently resting in the bed. Awake alert and oriented x3. No complaints of chest pain or shortness of breath. Left lower abdominal discomfort is improved. Hemoglobin is stable. Vascular surgery has seen the patient is planning for IVC filter placement. Heparin is on hold due to retroperitoneal bleed. Laboratory data showed WBC 25.6 hemoglobin 7.1 and platelets 159 sodium 131 potassium 5.7 chloride 112 bicarb is 37 creatinine 1.18 and calcium 7.0. Nephrology, ID and vascular surgery is on board. 11/25/2022 Patient is currently resting in bed. Awake alert and oriented x3. On room air. No complaints of chest pain or shortness of breath. No abdominal pain. No nausea vomiting abdominal pain or diarrhea. Patient is scheduled for IVC filter placement today. Otherwise hemoglobin level is 6.8 and 1 unit of PRBC was ordered. Other laboratory data showed WBC 20.6 hemoglobin 6.8 and platelets 149 sodium 135 potassium 5.4 chloride 101 bicarb is 23 BUN 34 and creatinine 1.25. Magnesium 1.6. Patient is being continued dexamethasone as per orthopedic surgery. Also on IV Lasix. Nephrology and general surgery is on board. Patient was given a dose of Lokelma yesterday. 11/26/2022 Patient is currently resting in bed. Awake alert and oriented x3. No complaints of back pain or abdominal pain. No nausea vomiting abdominal pain or diarrhea. No cough or sputum production. Currently on room air. Patient is status post IVC filter placement on 11/25/2022. Patient received 1 unit of PRBC yesterday and hemoglobin improved to 7.6 today. Level data showed WBC 22.3 hemoglobin 7.6 and platelets 141 sodium 136 potassium 5.3 chloride 101 bicarb is 23 BUN 32 and creatinine 1.23 and blood sugar is 125 and calcium 7.2. Magnesium 1.9. Follow-up CBC and BMP was ordered. Orthopedic surgery is planning for OR when medically stable tomorrow. 11/28/2022 Patient is seen and evaluated in follow-up and apparently orthopedics is scheduled for surgical intervention is patient is unstable. Recommending awaiting medical clearance. Infectious disease following and patient is being maintained and monitored closely of IV antibiotic therapy. Patient is status post Tali filter placement any stable. No active bleeding noted. General surgery following for hematoma on the back with no surgical interventions planned. Patient with significant weakness recommend PT/OT therapy and will discuss with case management about discharge planning and ECF. Recommend follow-up labs in the a.m. she is currently afebrile denies chest pain or shortness of breath. He stable. No active bleeding noted. Patient is tolerating diet with no reports of nausea or vomiting noted. Review of systems: Constitutional: reports of fatigue, no fever, or chills Cardiovascular: No reports of chest pain or palpitations Respiratory: No reports of shortness of breath or cough GI: No reports of nausea, vomiting, reports continued diarrhea, reports mildly improved appetite : No reports of dysuria or retention Neurovascular: reports of generalized weakness All medications have been reviewed Physical exam: Gen: This is a 62-year-old male awake, alert and oriented 3, well-developed, well-nourished, ill-appearing. Pale HEENT: Head is atraumatic, normocephalic. Pupils equal, round. Sclerae is anicteric. NECK: Supple. No JVD. No lymphadenopathy. No thyromegaly. LUNGS: Breath sounds diminished bilaterally with some scattered rhonchi noted. No intercostal retractions. HEART: S1, S2 are muffled, irregular ABDOMEN: Soft. Bowel sounds are present. No masses. No tenderness. EXTREMITIES: No pedal edema. No calf tenderness. Lower extremity edema NEUROLOGICAL: Patient is awake, alert and oriented x3. Cranial nerves 2 through 12 are grossly intact. Diffusely weak Assessment: Acute blood loss. hb 5.9 due to retroperitoneal bleed with hematoma. Hyperkalemia due to GI bleed. Improved Bilateral Pneumonia with superimposed gram-negative bacterial infection is suspected mainly in the right lower lobe. Completed antibiotic course. Recent COVID-19 infection with pneumonia Acute hypoxic respiratory failure. Titrate down to room air.. Sepsis secondary to above Possible discitis as per MRI cervical spine. Hyperkalemia due to urinary retention and acute kidney injury. Improving now. Anemia with vitamin B12 deficiency and currently on IM B12 replacement therapy Elevated troponin, most likely type II. No chest pain, normal LV function Low vitamin B12 and B6 Nonocclusive thrombosis of the left leg status post Tali filter placement Paroxysmal atrial fibrillation no anticoagulation with score of 0 per [employer] DVT prophylaxis; SCDs No code Plan: CT of the abdomen pelvis showed retroperitoneal hemorrhage and intramuscular hematoma. Patient had IVC filter placement by vascular surgery on 11/25/2022 and anticoagulation on hold. Hemoglobin is currently stable. Orthopedics following and have canceled plans for cervical intervention until medically stable Nephrology following and Jo catheter was discontinued and maintained on Flomax. Recommend monitoring for retention Patient is being closely monitored of IV antibiotic therapy Recommend continue current medications and management with multiple medical consultations following Due to multiple complex medical issues, prognosis is guarded Will need to discuss treatment plan with orthopedics along with case management about discharge planning surgical intervention to outpatient, and will also need to discuss about possible ECF on discharge Continue with dexamethasone per orthopedic team, will need to discuss about possible weaning IV dexamethasone Continue with vitamin B12 replacement therapy Several consultants on the case including neurologist, business management specialist, geomorphologist, GI (signed off, no GI coverage this week), infectious disease team and orthopedic team The impression and plan of care has been dictated by Priscilla Steven, Nurse Practitioner as directed. Dr. Jovanny MD I have performed a history and examination and MDM of this patient, discussed the same with the dictator, and agree with the dictator's assessment and plan as written ,documented as a scribe. Based on total visit time, I have performed more than 50% of the visit. Objective - Vital Signs Vital signs: Vital Signs Temp 97.9 F 11/28/22 08:00 Pulse 86 11/28/22 08:00 Resp 16 11/28/22 08:00 BP 116/75 11/28/22 08:00 Pulse Ox 97 11/28/22 08:00 FiO2 Intake & Output 11/27/22 11/28/22 11/28/22 18:59 06:59 18:59 Intake Total 100 118 Output Total 1900 2600 1900 Balance -1800 -2600 -1782 Weight 118 kg Intake: Intake, IV Titration 0 Amount Lactated Ringers 1,000 ml 0 @ 20 mls/hr IV .Q24H [facility] Rx#:[id number] Oral 100 118 Output: Urine 1900 2600 1900 Uretheral (Jo) 1900 1900 1900 Other: Voiding Method External Catheter External Catheter External Catheter # Bowel Movements 1 - Labs CBC & Chem 7: 11/28/22 08:19 11/28/22 08:19 Labs: Abnormal Lab Results - Last 24 Hours (Table) 11/27/22 11/27/22 11/27/22 Range/Units 11:55 17:05 20:22 WBC (3.8-10.6) k/uL RBC (4.30-5.90) m/uL Hgb (13.0-17.5) gm/dL Hct (39.0-53.0) % MCV (80.0-100.0) fL RDW (11.5-15.5) % Plt Count (150-450) k/uL Neutrophils # (1.3-7.7) k/uL Lymphocytes # (1.0-4.8) k/uL Chloride (98-107) mmol/L Carbon Dioxide (22-30) mmol/L BUN (9-20) mg/dL Glucose (74-99) mg/dL POC Glucose (mg/dL) 145 H 249 H 260 H (70-110) mg/dL Calcium (8.4-10.2) mg/dL 11/28/22 11/28/22 11/28/22 Range/Units 06:04 08:19 08:19 WBC 20.4 H (3.8-10.6) k/uL RBC 2.50 L (4.30-5.90) m/uL Hgb 7.9 L (13.0-17.5) gm/dL Hct 25.1 L (39.0-53.0) % MCV 100.4 H (80.0-100.0) fL RDW 19.3 H (11.5-15.5) % Plt Count 133 L (150-450) k/uL Neutrophils # 18.8 H (1.3-7.7) k/uL Lymphocytes # 0.8 L (1.0-4.8) k/uL Chloride 110 H (98-107) mmol/L Carbon Dioxide 21 L (22-30) mmol/L BUN 31 H (9-20) mg/dL Glucose 199 H (74-99) mg/dL POC Glucose (mg/dL) 211 H (70-110) mg/dL Calcium 7.4 L (8.4-10.2) mg/dL Microbiology - Last 24 Hours (Table) 11/23/22 06:28 Blood Culture - Preliminary Blood No Growth after 120 hours 11/23/22 06:19 Blood Culture - Preliminary Blood No Growth after 120 hours
[2022-11-29] MEDS: LEVOTHYROXINE 50 MCG TAB PO SCH (05:54)
[2022-11-29 06:29] LABS: Glucose,Whole Blood 181 mg/dL (70-110)
[2022-11-29 06:29] LABS: Anisocytosis Slight; Basophils % (A) 0 %; Eosinophils % (A) 0 %; HCT 22.2 % (39.0-53.0); HGB 7.3 gm/dL (13.0-17.5); Hypochromasia Moderate; Lymphocytes # (A) 0.8 k/uL (1.0-4.8); Lymphocytes % (A) 3 %; MCH 32.4 pg (25.0-35.0); MCHC 32.8 g/dL (31.0-37.0); MCV 98.8 fL (80.0-100.0); Macrocytosis Moderate; Mean Platelet Volume 9.2; Monocytes # (A) 0.8 k/uL (0-1.0); Monocytes % (A) 3 %; Neutrophils # (A) 22.4 k/uL (1.3-7.7); Neutrophils % (A) 93 %; Platelet Count 134 k/uL (150-450); RBC 2.24 m/uL (4.30-5.90); RDW 18.9 % (11.5-15.5); WBC 24.1 k/uL (3.8-10.6)
[2022-11-29 06:37] LABS: African American GFR (CKD) 81 (>60 ml/min/1.73 sqM); Anion Gap 1 mmol/L; Blood Urea Nitrogen 33 mg/dL (9-20); Carbon Dioxide 25 mmol/L (22-30); Chloride 110 mmol/L (98-107); Glucose 151 mg/dL (74-99); Magnesium 1.8 mg/dL (1.6-2.3); Non-African American GFR(CKD) 70 (>60 ml/min/1.73 sqM); Potassium 4.9 mmol/L (3.5-5.1); Sodium 136 mmol/L (137-145)
[2022-11-29] MEDS: INSULIN ASPART (NovoLOG) 100 UNIT/ML VIAL SQ SCH ×4 (06:46→20:56)
[2022-11-29] MEDS: FLUoxetine HCL 20 MG CAP PO SCH (08:56)
[2022-11-29] MEDS: MAGNESIUM OXIDE 400 MG TAB PO SCH (08:56)
[2022-11-29] MEDS: ZINC SULFATE 220 MG CAP PO SCH (08:57)
[2022-11-29] MEDS: CHOLECALCIFEROL 25 MCG (1000 IU) TABLET PO SCH (08:57)
[2022-11-29] MEDS: ASCORBIC ACID 500 MG TAB PO SCH ×2 (08:57→20:44)
[2022-11-29] MEDS: THIAMINE 100 MG TAB PO SCH (08:57)
[2022-11-29] MEDS: FOLIC ACID 1 MG TAB PO SCH (08:57)
[2022-11-29] MEDS: CALCIUM CARBONATE 500 MG CHEWABLE PO SCH ×3 (08:57→20:44)
[2022-11-29] MEDS: FUROSEMIDE 40 MG TAB PO SCH (08:58)
[2022-11-29] MEDS: PANTOPRAZOLE 40 MG/10 ML VIAL IVP SCH ×2 (08:58→20:52)
[2022-11-29] MEDS: PYRIDOXINE 50 MG TAB PO SCH (09:00)
[2022-11-29] MEDS: CYANOCOBALAMIN 1,000 MCG/ML 1 ML VIAL IM SCH (09:02)
--- NOTE | 2022-11-29 09:24 | P.PN ---
Subjective Progress Note Date: 11/29/22 Principal diagnosis: Bilateral upper extremity weakness; back pain Patient seen and examined this morning. Patient is resting in bed. He was transferred from 3S to 6N last night. There has been no changes in patients symptoms of the upper and lower extremities. He has no acute concerns at this time. He has been afebrile, denies nausea/vomiting, or chest pain. Objective - Vital Signs Vital signs: Vital Signs Temp 98.4 F 11/29/22 07:59 Pulse 78 11/29/22 07:59 Resp 16 11/29/22 07:59 BP 107/72 11/29/22 07:59 Pulse Ox 97 11/29/22 07:59 FiO2 Intake & Output 11/28/22 11/29/22 11/29/22 18:59 06:59 18:59 Intake Total 236 Output Total 1900 700 Balance -1664 -700 Weight 118 kg 118.5 kg Intake: Oral 236 Output: Urine 1900 700 Uretheral (Jo) 1900 Other: Voiding Method External Catheter External Catheter # Voids 2 - Exam Physical Examination General: The patient is awake and alert, in no acute distress Skin: Skin is warm and dry with no obvious rashes or lesions. Hairy patches absent, no dorsal skin dimples, no cafe au lait spots, surgical site in the groin. Eye: Pupils are equal, round and reactive to light, extra-ocular movements are intact; there is normal conjunctiva bilaterally. Neck: The neck is supple, there is no tenderness and ROM intact. Cardiovascular: There is a regular rate and rhythm. No murmur, rub or gallop is appreciated. Left lower 2+ pitting edema present. Respiratory: Lungs are clear to auscultation, respirations are non-labored, breath sounds are equal. Gastrointestinal: Soft, non-distended, non-tender abdomen. Back: There is no tenderness to palpation in the midline, paralumbar, parathoracic or buttocks region. There is no obvious deformity . Musculoskeletal: ROM limited secondary to pain and stiffness from surgical procedure. Muscle strength in all major muscle groups of right upper extremity 3/5, left upper extremity 4/5, bilateral lower extremities 4-/5. Neurological: CN 2-12 intact. There are no obvious motor or sensory deficits. Movement and coordination equal and intact. Sensory exam to light touch intact C5-T1 and intact from L2-S1. Reflexes 2/4 in bilateral upper and lower extremities. Negative Hoffmans, babinski, and clonus signs. Psychiatric: Cooperative, appropriate mood & affect, normal judgment. - Labs CBC & Chem 7: 11/29/22 05:09 11/29/22 05:09 Labs: Abnormal Lab Results - Last 24 Hours (Table) 11/28/22 11/28/22 11/28/22 Range/Units 08:19 08:19 11:45 WBC 20.4 H (3.8-10.6) k/uL RBC 2.50 L (4.30-5.90) m/uL Hgb 7.9 L (13.0-17.5) gm/dL Hct 25.1 L (39.0-53.0) % MCV 100.4 H (80.0-100.0) fL RDW 19.3 H (11.5-15.5) % Plt Count 133 L (150-450) k/uL Neutrophils # 18.8 H (1.3-7.7) k/uL Lymphocytes # 0.8 L (1.0-4.8) k/uL Sodium (137-145) mmol/L Chloride 110 H (98-107) mmol/L Carbon Dioxide 21 L (22-30) mmol/L BUN 31 H (9-20) mg/dL Glucose 199 H (74-99) mg/dL POC Glucose (mg/dL) 227 H (70-110) mg/dL Calcium 7.4 L (8.4-10.2) mg/dL 11/28/22 11/28/22 11/29/22 Range/Units 17:26 20:04 05:09 WBC 24.1 H (3.8-10.6) k/uL RBC 2.24 L (4.30-5.90) m/uL Hgb 7.3 L (13.0-17.5) gm/dL Hct 22.2 L (39.0-53.0) % MCV (80.0-100.0) fL RDW 18.9 H (11.5-15.5) % Plt Count 134 L (150-450) k/uL Neutrophils # 22.4 H (1.3-7.7) k/uL Lymphocytes # 0.8 L (1.0-4.8) k/uL Sodium (137-145) mmol/L Chloride (98-107) mmol/L Carbon Dioxide (22-30) mmol/L BUN (9-20) mg/dL Glucose (74-99) mg/dL POC Glucose (mg/dL) 318 H 288 H (70-110) mg/dL Calcium (8.4-10.2) mg/dL 11/29/22 11/29/22 Range/Units 05:09 06:27 WBC (3.8-10.6) k/uL RBC (4.30-5.90) m/uL Hgb (13.0-17.5) gm/dL Hct (39.0-53.0) % MCV (80.0-100.0) fL RDW (11.5-15.5) % Plt Count (150-450) k/uL Neutrophils # (1.3-7.7) k/uL Lymphocytes # (1.0-4.8) k/uL Sodium 136 L (137-145) mmol/L Chloride 110 H (98-107) mmol/L Carbon Dioxide (22-30) mmol/L BUN 33 H (9-20) mg/dL Glucose 151 H (74-99) mg/dL POC Glucose (mg/dL) 181 H (70-110) mg/dL Calcium 7.0 L (8.4-10.2) mg/dL Microbiology - Last 24 Hours (Table) 11/23/22 06:28 Blood Culture - Final Blood No Growth after 144 hours 11/23/22 06:19 Blood Culture - Final Blood No Growth after 144 hours Assessment and Plan Assessment: Bilateral upper extremity weakness Left knee pain Large retroperitoneal hematoma Anemia of unknown origin Plan: Plans for cervical and lumbar surgical procedures have been canceled until patient is medically cleared. Appreciate medical management Pain management - Tylenol DVT prophylaxis -mechanical GI prophylaxis - Protonix; Tums PT/OT - weightbearing as tolerated with walker. Appreciate consult *I reviewed and discussed this case with my attending Dr. Starr, whom has reviewed this chart and films and is in agreement with assessment and plan of care as outlined above. I have personally seen and examined the patient, performed the documentation and the assessment and plan as written. Number of minutes spent on the visit: 15m.
[2022-11-29] MEDS: INSULIN DETEMIR (LEVEMIR) 100 UNIT/ML SYR SQ SCH (09:35)
[2022-11-29] MEDS: DILTIAZEM ORAL 30 MG TAB PO SCH ×3 (09:35→20:50)
--- NOTE | 2022-11-29 11:51 | P.PN ---
Subjective Progress Note Date: 11/24/22 Patient was seen for a follow-up. Patient is a 62-year-old male, with recent Covid infection and generalized weakness with edema in the cervical region. Patient was seen by myself last week. Was scheduled for cervical spinal decompressive surgery today, but apparently patient has developed a retroperit blount hematoma therefore surgery was canceled. Patient states he feels frustrated because he was not able to get the surgery that was scheduled today. Patient is laying in the bed. Telemetry monitoring showing sinus rhythm with some PACs. Objective - Vital Signs Vital signs: Vital Signs Temp 98.1 F 11/25/22 04:00 Pulse 58 L 11/25/22 04:00 Resp 18 11/25/22 04:00 BP 103/69 11/25/22 04:00 Pulse Ox 96 11/25/22 04:00 FiO2 Intake & Output 11/24/22 11/25/22 11/25/22 18:59 06:59 18:59 Intake Total 120 Output Total 2300 625 400 Balance -2180 -625 -400 Weight 119 kg Intake: Oral 120 Output: Urine 2300 625 400 Other: Voiding Method Indwelling Catheter Indwelling Catheter # Bowel Movements 1 - Exam Patient's mentation is normal. Speech and language functions are normal. Cranial nerves are normal. Muscle strength testing reveals (right/left) deltoid 2-3/3+, biceps 4/5, triceps 4/5, monotype mechanic 4+/4+, hip flexion 4+/3, ankle dorsiflexion 5/5. Deep tendon reflexes are biceps trace to 1 bilaterally, absent at the brachioradialis, knees and ankles bilaterally. Plantars are flat. Sensory touch is decreased in the left leg from knee down. - Labs CBC & Chem 7: 11/29/22 05:09 11/29/22 05:09 Labs: Abnormal Lab Results - Last 24 Hours (Table) 11/24/22 11/24/22 11/24/22 Range/Units 12: 16:53 20:05 POC Glucose (mg/dL) 145 H 221 H 213 H (70-110) mg/dL 11/25/22 Range/Units 06:02 POC Glucose (mg/dL) 170 H (70-110) mg/dL Microbiology - Last 24 Hours (Table) 11/23/22 06:28 Blood Culture - Preliminary Blood No Growth after 48 hours 11/23/22 06:19 Blood Culture - Preliminary Blood No Growth after 48 hours 11/07/22 21:50 Stool Culture - Final Stool Assessment and Plan Assessment: * Acute COVID infection with severe diarrhea for around 7-10 days. * Cervical spinal stenosis C5-C6 level, spondylolisthesis C3-C4, degenerative changes, worse at C6-C7 per MRI. * Osteo-discitis at L3-L4 level * Generalized weakness, slightly asymmetric. Etiology possibly multifactorial, most likely related to above, but probably also contributed by electrolyte imbalance, with hypokalemia, hyponatremia, hypocalcemia, hypomagnesemia, copper deficiency, B12 and B6 deficiency. * Retroperitoneal hematoma * Vitamin B12 deficiency * Vitamin B6 deficiency * Copper deficiency * Paroxysmal atrial fibrillation * DVT in the left lower extremity * Alcoholism * Anemia Plan: * Patient's muscle strength seems to have improved slightly as compared to examination from 11/10/2022. However continues to be significantly weak. * MRI of the cervical spine revealed significantly limited study secondary to motion. Within the limitation, there is at least moderate spinal canal stenosis at C5 6. Multilevel neural foraminal stenosis. Grade 1 anterolisthesis of C3 on C4. Degeneration changes worse at C6-C7 with the joint place edema. Orthopedic surgery input appreciated. * MRI of the lumbar is reported as no new bone structure. Stable alignment. Increased T2 signal and disc or suspected edema is less prominent from prior study. No definitive abnormal osseous and has been suggest persistent acute active osteomyelitis. No new focal fluid collection or abscess seen. Finding consistent with improving infection and degenerative changes. * MRI of the thoracic spine is reported as multilevel degenerative disc disease with disc protrusion and ventral cord contact at T7-T8 * Patient has evidence of vitamin B12 deficiency with B12 226 with low B12 and elevated methylmalonic acid 0.51. Patient started on vitamin B12 1000 g IM daily. * Hematology has seen the patient, ordered blood testing. * CPK < 20, vitamin B6 very low 2. Patient was started on vitamin B6 50 mg twice a day by Dr. Greene. B1 69, TSH normal. Folate 21.2. Serum protein electrophoresis and immunofixation electrophoresis showed no paraproteinemia * For copper deficiency, would defer to hematology. * Patient also had an episode of paroxysmal atrial fibrillation. Cardiology has seen the patient, not recommending anticoagulation. However after DVT patient was started on heparin drip. Patient has not developed retroperitoneal hematoma. Surgery following. * 2-D echo revealed left ventricular hypertrophy with normal left-ventricular systolic function with EF 55%. No obvious regional wall motion abnormalities. Left atrial size is normal. Mild to moderate mitral regurgitation. * PT, OT, evaluate gait. * DVT prophylaxis: Patient off heparin because of retroperitoneal hematoma.
--- NOTE | 2022-11-29 11:56 | P.PN ---
Subjective Progress Note Date: 11/26/22 Patient was seen for a follow-up. Patient is a 62-year-old male, with recent Covid infection and generalized weakness with edema in the cervical region. Patient was seen by myself last week. Was scheduled for cervical spinal decompressive surgery 11/24/2022, but apparently patient has developed a retro peritoneal hematoma therefore surgery was canceled. Patient also has DVT, therefore IVC filter was placed on 11/25/2022. Patient is laying in the bed. Patient states that he has not had any neck or back surgery. His legs are swollen. He has low back pain like a "tinge" once in a while. No neck pain. Objective - Vital Signs Vital signs: Vital Signs Temp 98.1 F 11/26/22 16:00 Pulse 70 11/26/22 16:00 Resp 18 11/26/22 16:00 BP 128/75 11/26/22 16:00 Pulse Ox 96 11/26/22 16:00 FiO2 Intake & Output 11/25/22 11/26/22 11/26/22 18:59 06:59 18:59 Intake Total 570 180 Output Total 245 146 1042 Balance 170 -600 -1870 Weight 118.5 kg Intake: IV 50 Oral 240 180 Blood Product 280 Rc Pheresis 2 As3 Unit 280 [id number] Output: Urine 600 734 9081 Other: Voiding Method Indwelling Catheter Indwelling Catheter Indwelling Catheter # Bowel Movements 1 - Exam Patient's mentation is normal. Speech and language functions are normal. Cranial nerves are normal. Muscle strength testing reveals (right/left) deltoid 2-3/3+, biceps 4/5, triceps 4/5, staff anesthetist 4+/4+, hip flexion 4+/3, ankle dorsiflexion 5/5. Deep tendon reflexes are biceps trace to 1 bilaterally, absent at the brachioradialis, knees and ankles bilaterally. Plantars are flat. Sensory touch is decreased in the left leg from knee down. - Labs CBC & Chem 7: 11/29/22 05:09 11/29/22 05:09 Labs: Abnormal Lab Results - Last 24 Hours (Table) 11/23/22 11/25/22 11/26/22 Range/Units 07:44 20:32 06:19 WBC (3.8-10.6) k/uL RBC (4.30-5.90) m/uL Hgb (13.0-17.5) gm/dL Hct (39.0-53.0) % RDW (11.5-15.5) % Plt Count (150-450) k/uL Neutrophils # (1.3-7.7) k/uL Sodium (137-145) mmol/L Potassium (3.5-5.1) mmol/L Chloride (98-107) mmol/L BUN (9-20) mg/dL Glucose (74-99) mg/dL POC Glucose (mg/dL) 331 H 170 H (70-110) mg/dL Calcium (8.4-10.2) mg/dL AST (17-59) U/L Total Protein (6.3-8.2) g/dL Albumin (3.5-5.0) g/dL Crossmatch See Detail 11/26/22 11/26/22 11/26/22 Range/Units 08:53 09:22 11:49 WBC 22.3 H (3.8-10.6) k/uL RBC 2.42 L (4.30-5.90) m/uL Hgb 7.6 L (13.0-17.5) gm/dL Hct 22.9 L (39.0-53.0) % RDW 18.8 H (11.5-15.5) % Plt Count 141 L (150-450) k/uL Neutrophils # 20.1 H (1.3-7.7) k/uL Sodium 136 L (137-145) mmol/L Potassium 5.3 H (3.5-5.1) mmol/L Chloride 111 H (98-107) mmol/L BUN 32 H (9-20) mg/dL Glucose 125 H (74-99) mg/dL POC Glucose (mg/dL) 161 H (70-110) mg/dL Calcium 7.2 L (8.4-10.2) mg/dL AST 16 L (17-59) U/L Total Protein 4.1 L (6.3-8.2) g/dL Albumin 2.0 L (3.5-5.0) g/dL Crossmatch 11/26/22 Range/Units 16:40 WBC (3.8-10.6) k/uL RBC (4.30-5.90) m/uL Hgb (13.0-17.5) gm/dL Hct (39.0-53.0) % RDW (11.5-15.5) % Plt Count (150-450) k/uL Neutrophils # (1.3-7.7) k/uL Sodium (137-145) mmol/L Potassium (3.5-5.1) mmol/L Chloride (98-107) mmol/L BUN (9-20) mg/dL Glucose (74-99) mg/dL POC Glucose (mg/dL) 253 H (70-110) mg/dL Calcium (8.4-10.2) mg/dL AST (17-59) U/L Total Protein (6.3-8.2) g/dL Albumin (3.5-5.0) g/dL Crossmatch Microbiology - Last 24 Hours (Table) 11/23/22 06:28 Blood Culture - Preliminary Blood No Growth after 72 hours 11/23/22 06:19 Blood Culture - Preliminary Blood No Growth after 72 hours Assessment and Plan Assessment: * Acute COVID infection with severe diarrhea for around 7-10 days. * Cervical spinal stenosis C5-C6 level, spondylolisthesis C3-C4, degenerative changes, worse at C6-C7 per MRI. * Osteo-discitis at L3-L4 level * Generalized weakness, slightly asymmetric. 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 * DVT left lower extremity, status post placement of IVC filter. * Status post Retroperitoneal hematoma * Vitamin B12 deficiency * Vitamin B6 deficiency * Copper deficiency * Paroxysmal atrial fibrillation * DVT in the left lower extremity * Alcoholism * Anemia Plan: * Patient's muscle strength seems to have improved slightly as compared to examination from 11/10/2022. However continues to be significantly weak. * MRI of the cervical spine revealed significantly limited study secondary to motion. Within the limitation, there is at least moderate spinal canal stenosis at C5 6. Multilevel neural foraminal stenosis. Grade 1 anterolisthesis of C3 on C4. Degeneration changes worse at C6-C7 with the joint place edema. Orthopedic surgery input appreciated. * MRI of the lumbar is reported as no new bone structure. Stable alignment. Increased T2 signal and disc or suspected edema is less prominent from prior study. No definitive abnormal osseous and has been suggest persistent acute active osteomyelitis. No new focal fluid collection or abscess seen. Finding consistent with improving infection and degenerative changes. * MRI of the thoracic spine is reported as multilevel degenerative disc disease with disc protrusion and ventral cord contact at T7-T8 * Patient has evidence of vitamin B12 deficiency with B12 226 with low B12 and elevated methylmalonic acid 0.51. Patient started on vitamin B12 1000 g IM daily. * Hematology has seen the patient, ordered blood testing. * CPK < 20, vitamin B6 very low 2. Patient was started on vitamin B6 50 mg twice a day by Dr. Greene. B1 69, TSH normal. Folate 21.2. Serum protein electrophoresis and immunofixation electrophoresis showed no paraproteinemia * For copper deficiency, would defer to hematology. * Patient also had an episode of paroxysmal atrial fibrillation. Cardiology has seen the patient, not recommending anticoagulation. However after DVT patient was started on heparin drip. Patient has not developed retroperitoneal hematoma. Surgery following. * 2-D echo revealed left ventricular hypertrophy with normal left-ventricular systolic function with EF 55%. No obvious regional wall motion abnormalities. Left atrial size is normal. Mild to moderate mitral regurgitation. * PT, OT, evaluate gait. * DVT prophylaxis: Patient off heparin because of retroperitoneal hematoma. * Neurology will follow sporadically.
--- NOTE | 2022-11-29 12:12 | P.PN ---
Subjective Patient is seen in follow-up for acute kidney injury on chronic kidney disease. Renal function fairly stable. Hemoglobin 7.9 today. Denies any active bleeding. Jo catheter discontinued. Nonoliguric. No active complaints. Objective - Vital Signs Vital signs: Vital Signs Temp 98.4 F 11/29/22 07:59 Pulse 78 11/29/22 07:59 Resp 16 11/29/22 08:57 BP 107/72 11/29/22 07:59 Pulse Ox 97 11/29/22 07:59 FiO2 Intake & Output 11/28/22 11/29/22 11/29/22 18:59 06:59 18:59 Intake Total 236 Output Total 1900 700 Balance -1664 -700 Weight 118 kg 118.5 kg Intake: Oral 236 Output: Urine 1900 700 Uretheral (Jo) 1900 Other: Voiding Method External Catheter External Catheter External Catheter # Voids 2 # Bowel Movements 1 - Exam Patient is comfortable awake alert oriented 3 Examination of the heart S1 and S2 Examination of the lungs bilateral breath sounds are heard Abdomen is soft nontender Examination lower extremity shows 1+ edema bilaterally 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 - Labs CBC & Chem 7: 11/29/22 05:09 11/29/22 05:09 Labs: Abnormal Lab Results - Last 24 Hours (Table) 11/28/22 11/28/22 11/29/22 Range/Units 17:26 20:04 05:09 WBC 24.1 H (3.8-10.6) k/uL RBC 2.24 L (4.30-5.90) m/uL Hgb 7.3 L (13.0-17.5) gm/dL Hct 22.2 L (39.0-53.0) % RDW 18.9 H (11.5-15.5) % Plt Count 134 L (150-450) k/uL Neutrophils # 22.4 H (1.3-7.7) k/uL Lymphocytes # 0.8 L (1.0-4.8) k/uL Sodium (137-145) mmol/L Chloride (98-107) mmol/L BUN (9-20) mg/dL Glucose (74-99) mg/dL POC Glucose (mg/dL) 318 H 288 H (70-110) mg/dL Calcium (8.4-10.2) mg/dL 11/29/22 11/29/22 Range/Units 05:09 06:27 WBC (3.8-10.6) k/uL RBC (4.30-5.90) m/uL Hgb (13.0-17.5) gm/dL Hct (39.0-53.0) % RDW (11.5-15.5) % Plt Count (150-450) k/uL Neutrophils # (1.3-7.7) k/uL Lymphocytes # (1.0-4.8) k/uL Sodium 136 L (137-145) mmol/L Chloride 110 H (98-107) mmol/L BUN 33 H (9-20) mg/dL Glucose 151 H (74-99) mg/dL POC Glucose (mg/dL) 181 H (70-110) mg/dL Calcium 7.0 L (8.4-10.2) mg/dL Microbiology - Last 24 Hours (Table) 11/23/22 06:28 Blood Culture - Final Blood No Growth after 144 hours 11/23/22 06:19 Blood Culture - Final Blood No Growth after 144 hours Assessment and Plan Assessment: 1. Acute kidney injury mostly prerenal secondary to acute blood loss anemia and urinary retention. Renal function stable. Creatinine 1.11 . Patient received IV contrast on 11/23/2022. 2. Chronic kidney disease stage II with baseline creatinine 1-1.1. 3. Urinary retention. Jo catheter removed 11/27/2022. On Flomax. 4. Lower extremity edema maintained on Lasix. Better. 5. Hyperkalemia secondary to GI bleed and acidosis. Stable. 6. GI bleed status post blood transfusion this admission. CAT scan showed large intramuscular hematoma. Surgery following. 7. Metabolic acidosis secondary to acute kidney injury and GI losses maintained on oral bicarbonate. 8. Hypomagnesemia from diuresis. Replaced. Stable. Plan: Continue with oral Lasix Check renal profile periodically
[2022-11-29 12:14] LABS: Glucose,Whole Blood 175 mg/dL (70-110)
--- NOTE | 2022-11-29 13:43 | P.PN ---
Subjective Progress Note Date: 11/29/22 Principal diagnosis: Abnormal MRI questionable discitis Patient is a 62-year-old male who is unvaccinated for COVID-19 patient was brought into the ER for evaluation of weakness no energy mention the patient was not able to get stand up and go to the bathroom patient has been dealing with the diarrhea off and on for couple of weeks, patient was noticed to have a positive covid test, however the patient was not hypoxic and CT abdominal pelvis with few bibasilar patchy groundglass opacity representing atelectasis and no evidence of colitis. Patient did have a drop in his hemoglobin and underwent a CT angiogram that demonstrated a large intramuscular hematoma in the left iliac is muscle in the retroperitoneum. Patient is status post Tali filter placement on 11/25/2022 On today's evaluation that is 11/29/2022, the patient remains to be afebrile, the patient is breathing comfortably on room air, The patient denies chest pain, the patient did have occasional cough but no sputum production, the patient denies nausea no vomiting no abdominal pain no diarrhea, denies any worsening weakness or back pain Objective - Vital Signs Vital signs: Vital Signs Temp 98.4 F 11/29/22 07:59 Pulse 78 11/29/22 07:59 Resp 16 11/29/22 08:57 BP 107/72 11/29/22 07:59 Pulse Ox 97 11/29/22 07:59 FiO2 Intake & Output 11/28/22 11/29/22 11/29/22 18:59 06:59 18:59 Intake Total 236 Output Total 1900 700 Balance -1664 -700 Weight 118 kg 118.5 kg Intake: Oral 236 Output: Urine 1900 700 Uretheral (Jo) 1900 Other: Voiding Method External Catheter External Catheter External Catheter # Voids 2 # Bowel Movements 1 - Exam GENERAL DESCRIPTION: An elderly male lying in bed in no distress RESPIRATORY SYSTEM: Unlabored breathing , decreased breath sounds at bases HEART: S1 S2 regular rate and rhythm , ABDOMEN: Soft , no tenderness EXTREMITIES: No edema feet - Labs CBC & Chem 7: 11/29/22 05:09 11/29/22 05:09 Labs: Abnormal Lab Results - Last 24 Hours (Table) 11/28/22 11/28/22 11/28/22 Range/Units 11:45 17:26 20:04 WBC (3.8-10.6) k/uL RBC (4.30-5.90) m/uL Hgb (13.0-17.5) gm/dL Hct (39.0-53.0) % RDW (11.5-15.5) % Plt Count (150-450) k/uL Neutrophils # (1.3-7.7) k/uL Lymphocytes # (1.0-4.8) k/uL Sodium (137-145) mmol/L Chloride (98-107) mmol/L BUN (9-20) mg/dL Glucose (74-99) mg/dL POC Glucose (mg/dL) 227 H 318 H 288 H (70-110) mg/dL Calcium (8.4-10.2) mg/dL 11/29/22 11/29/22 11/29/22 Range/Units 05:09 05:09 06:27 WBC 24.1 H (3.8-10.6) k/uL RBC 2.24 L (4.30-5.90) m/uL Hgb 7.3 L (13.0-17.5) gm/dL Hct 22.2 L (39.0-53.0) % RDW 18.9 H (11.5-15.5) % Plt Count 134 L (150-450) k/uL Neutrophils # 22.4 H (1.3-7.7) k/uL Lymphocytes # 0.8 L (1.0-4.8) k/uL Sodium 136 L (137-145) mmol/L Chloride 110 H (98-107) mmol/L BUN 33 H (9-20) mg/dL Glucose 151 H (74-99) mg/dL POC Glucose (mg/dL) 181 H (70-110) mg/dL Calcium 7.0 L (8.4-10.2) mg/dL Microbiology - Last 24 Hours (Table) 11/23/22 06:28 Blood Culture - Final Blood No Growth after 144 hours 11/23/22 06:19 Blood Culture - Final Blood No Growth after 144 hours Assessment and Plan (1) COVID-19 Current Visit: Yes Status: Acute Priority: High Code(s): U07.1 - COVID-19 SNOMED Code(s): 276884061 Plan: 1patient did have a abnormal MRI of the cervical spine as well as lumbar spine with a questionable discitis reported by radiologist however the patient did have normal sed rate and a CRP 2, patient is currently being monitor closely off antibiotic therapy to increase the yield of any culture to be done at the time of surgery . Apparently the patient is not stable to undergo surgery per orthopedics, IR unable to do CT-guided aspirate of the affected lumbar spine for microbiological diagnosis, will discuss further with the orthopedics 2leukocytosis is more likely steroid related and now with evidence of muscle hematoma as well as retroperitoneal hematoma and the patient is status post Tali filter placement and is currently being monitored closely off antibiotic therapy, white count is up to 24.1 today we will recheck his inflammatory markers with a.m. lab Time with Patient: Less than 30
[2022-11-29] MEDS: CHOLESTYRAMINE (WITH SUGAR) 4 GM PACKET PO SCH ×2 (16:21→20:44)
--- NOTE | 2022-11-29 16:34 | P.PN ---
Subjective Progress Note Date: 11/29/22 11/29/2022: Patient was seen for a follow-up. Patient's was also present. Patient's states that the hemoglobin is not going up. No surgery, as not able to identify the source of the bleeding. Patient to see servomechanism designer. Patient does have swelling of the left foot, from DVT for the past 1 week. He has IVC filter placed. He believes the left arm is getting stronger, but the right arm is the same. He is not able to stand, as his legs will not support him. Concerned about the knee. Telemetry monitoring showing sinus rhythm, with some PVCs and PACs. 11/26/2022: Patient was seen for a follow-up. Patient is a 62-year-old male, with recent Covid infection and generalized weakness with edema in the cervical region. Patient was seen by myself last week. Was scheduled for cervical spinal decompressive surgery 11/24/2022, but apparently patient has developed a retroperitoneal hematoma therefore surgery was canceled. Patient also has DVT, therefore IVC filter was placed on 11/25/2022. Patient is laying in the bed. Patient states that he has not had any neck or back surgery. His legs are swollen. He has low back pain like a "tinge" once in a while. No neck pain. Objective - Vital Signs Vital signs: Vital Signs Temp 98.4 F 11/29/22 14:16 Pulse 92 11/29/22 14:16 Resp 16 11/29/22 14:16 BP 118/81 11/29/22 14:16 Pulse Ox 100 11/29/22 14:16 FiO2 Intake & Output 11/28/22 11/29/22 11/29/22 18:59 06:59 18:59 Intake Total 236 Output Total 1900 700 Balance -1664 -700 Weight 118 kg 118.5 kg Intake: Oral 236 Output: Urine 1900 700 Uretheral (Jo) 1900 Other: Voiding Method External Catheter External Catheter External Catheter # Voids 2 # Bowel Movements 1 - Exam Patient's mentation is normal. Speech and language functions are normal. Cranial nerves are normal. Muscle strength testing reveals (right/left) deltoid 3-/4, biceps 4+5-/5-, triceps 4+5-/5 5-, talent development analyst 5-/5-, hip flexion 4+/2, knee extension 5/4-, ankle dorsiflexion 5/5, plantarflexion 5/5. Deep tendon reflexes are all absent in the arms and legs. Plantars are flat. Sensory touch is decreased in the left leg from knee down. Patient has significant peripheral edema, particularly in the left foot. - Labs CBC & Chem 7: 11/29/22 05:09 11/29/22 05:09 Labs: Abnormal Lab Results - Last 24 Hours (Table) 11/28/22 11/28/22 11/29/22 Range/Units 17:26 20:04 05:09 WBC 24.1 H (3.8-10.6) k/uL RBC 2.24 L (4.30-5.90) m/uL Hgb 7.3 L (13.0-17.5) gm/dL Hct 22.2 L (39.0-53.0) % RDW 18.9 H (11.5-15.5) % Plt Count 134 L (150-450) k/uL Neutrophils # 22.4 H (1.3-7.7) k/uL Lymphocytes # 0.8 L (1.0-4.8) k/uL Sodium (137-145) mmol/L Chloride (98-107) mmol/L BUN (9-20) mg/dL Glucose (74-99) mg/dL POC Glucose (mg/dL) 318 H 288 H (70-110) mg/dL Calcium (8.4-10.2) mg/dL 11/29/22 11/29/22 11/29/22 Range/Units 05:09 06:27 12:12 WBC (3.8-10.6) k/uL RBC (4.30-5.90) m/uL Hgb (13.0-17.5) gm/dL Hct (39.0-53.0) % RDW (11.5-15.5) % Plt Count (150-450) k/uL Neutrophils # (1.3-7.7) k/uL Lymphocytes # (1.0-4.8) k/uL Sodium 136 L (137-145) mmol/L Chloride 110 H (98-107) mmol/L BUN 33 H (9-20) mg/dL Glucose 151 H (74-99) mg/dL POC Glucose (mg/dL) 181 H 175 H (70-110) mg/dL Calcium 7.0 L (8.4-10.2) mg/dL Microbiology - Last 24 Hours (Table) 11/23/22 06:28 Blood Culture - Final Blood No Growth after 144 hours 11/23/22 06:19 Blood Culture - Final Blood No Growth after 144 hours Assessment and Plan Assessment: * Acute COVID infection with severe diarrhea for around 7-10 days [employer]. * Cervical spinal stenosis C5-C6 level, spondylolisthesis C3-C4, degenerative changes, worse at C6-C7 per MRI. * Osteo-discitis at L3-L4 level * Generalized weakness, slightly asymmetric. Etiology possibly multifactorial, most likely related to above, but probably also contributed by electrolyte imbalance, with hypokalemia, hyponatremia, hypocalcemia, hypomagnesemia, copper deficiency, B12 and B6 deficiency. * DVT left lower extremity, status post placement of IVC filter. * Status post Retroperitoneal hematoma * Vitamin B12 deficiency * Vitamin B6 deficiency * Copper deficiency * Paroxysmal atrial fibrillation * DVT in the left lower extremity * Alcoholism * Anemia Plan: * Patient's muscle strength seems to have improved slightly as compared to examination from 11/10/2022. However continues to be significantly weak. * MRI of the cervical spine revealed significantly limited study secondary to motion. Within the limitation, there is at least moderate spinal canal steno sis at C5 6. Multilevel neural foraminal stenosis. Grade 1 anterolisthesis of C3 on C4. Degeneration changes worse at C6-C7 with the joint place edema. Orthopedic surgery input appreciated. * MRI of the lumbar is reported as no new bone structure. Stable alignment. Increased T2 signal and disc or suspected edema is less prominent from prior study. No definitive abnormal osseous and has been suggest persistent acute active osteomyelitis. No new focal fluid collection or abscess seen. Finding consistent with improving infection and degenerative changes. * MRI of the thoracic spine is reported as multilevel degenerative disc disease with disc protrusion and ventral cord contact at T7-T8 * Patient has evidence of vitamin B12 deficiency with B12 226 and elevated methylmalonic acid 0.51. Patient started on vitamin B12 1000 g IM daily. He has received B12 injections since then. We will decrease to vitamin B12 1000 g orally daily. * Hematology has seen the patient, ordered blood testing. * CPK < 20, vitamin B6 very low 2. Patient was started on vitamin B6 50 mg twice a day by Dr. Greene. We will decrease to 50 mg once a day. B1 69, TSH normal. Folate 21.2. Serum protein electrophoresis and immunofixation electrophoresis showed no paraproteinemia * For copper deficiency, would defer to hematology. * Patient also had an episode of paroxysmal atrial fibrillation. Cardiology has seen the patient, not recommending anticoagulation. However after DVT patient was started on heparin drip. Patient has not developed retroperitoneal hematoma. Surgery following. All anticoagulation on hold. * 2-D echo revealed left ventricular hypertrophy with normal left-ventricular systolic function with EF 55%. No obvious regional wall motion abnormalities. Left atrial size is normal. Mild to moderate mitral regurgitation. * PT, OT, evaluate gait. * DVT prophylaxis: Patient off heparin because of retroperitoneal hematoma. * Neurology will follow sporadically. Dr. King Greene starting neurology service in the morning.
[2022-11-29 17:07] LABS: Glucose,Whole Blood 199 mg/dL (70-110)
[2022-11-29] MEDS: TAMSULOSIN 0.4 MG CAP.ER.24H PO SCH (17:09)
[2022-11-29 20:37] LABS: Glucose,Whole Blood 234 mg/dL (70-110)
[2022-11-29] MEDS: MELATONIN 3 MG TABLET PO SCH (20:50)
--- NOTE | 2022-11-29 22:25 | P.PN ---
Subjective Progress Note Date: 11/29/22 patient sister at bedside. Clinically stable. Management of surgical intervention per orthospine Objective - Vital Signs Vital signs: Vital Signs Temp 98.8 F 11/29/22 19:40 Pulse 80 11/29/22 19:40 Resp 19 11/29/22 19:40 BP 108/72 11/29/22 19:40 Pulse Ox 98 11/29/22 19:40 FiO2 Intake & Output 11/29/22 11/29/22 11/30/22 06:59 18:59 06:59 Output Total 700 1000 Balance -700 -1000 Weight 118.5 kg Output: Urine 700 1000 Other: Voiding Method External Catheter External Catheter # Voids 2 # Bowel Movements 1 - Labs CBC & Chem 7: 11/29/22 05:09 11/29/22 05:09 Labs: Abnormal Lab Results - Last 24 Hours (Table) 11/29/22 11/29/22 11/29/22 Range/Units 05:09 05:09 06:27 WBC 24.1 H (3.8-10.6) k/uL RBC 2.24 L (4.30-5.90) m/uL Hgb 7.3 L (13.0-17.5) gm/dL Hct 22.2 L (39.0-53.0) % RDW 18.9 H (11.5-15.5) % Plt Count 134 L (150-450) k/uL Neutrophils # 22.4 H (1.3-7.7) k/uL Lymphocytes # 0.8 L (1.0-4.8) k/uL Sodium 136 L (137-145) mmol/L Chloride 110 H (98-107) mmol/L BUN 33 H (9-20) mg/dL Glucose 151 H (74-99) mg/dL POC Glucose (mg/dL) 181 H (70-110) mg/dL Calcium 7.0 L (8.4-10.2) mg/dL 11/29/22 11/29/22 11/29/22 Range/Units 12:12 17:06 20:34 WBC (3.8-10.6) k/uL RBC (4.30-5.90) m/uL Hgb (13.0-17.5) gm/dL Hct (39.0-53.0) % RDW (11.5-15.5) % Plt Count (150-450) k/uL Neutrophils # (1.3-7.7) k/uL Lymphocytes # (1.0-4.8) k/uL Sodium (137-145) mmol/L Chloride (98-107) mmol/L BUN (9-20) mg/dL Glucose (74-99) mg/dL POC Glucose (mg/dL) 175 H 199 H 234 H (70-110) mg/dL Calcium (8.4-10.2) mg/dL Microbiology - Last 24 Hours (Table) 11/23/22 06:28 Blood Culture - Final Blood No Growth after 144 hours 11/23/22 06:19 Blood Culture - Final Blood No Growth after 144 hours
--- NOTE | 2022-11-30 02:46 | P.PN ---
Subjective Progress Note Date: 11/29/22 Paroxysmal atrial fibrillation Intractable nausea/vomiting/diarrhea Profound hypokalemia Acute renal injury COVID-19 infection 62-year-old male in the emergency department for diarrhea. She notes diarrhea starting and he asked progressively gotten worse. He reports he stood up from a chair and had an episode of diarrhea, admits he still maintains bowel function. He has not tried anything for his symptoms. He denies nausea, vomiting, abdominal pain, palpitations, fevers. Denies recent travel or recent antibiotic use. He is scheduled to have his first colonoscopy in january of 2023. Patient had an initial lab work is remarkable for WBC is 11.4, hemoglobin 8.7, INR 1.2, sodium 133, potassium 2.6 lactic acid 2.9, calcium 6.3, magnesium 0.8, lipase 60, COVID positive. I interpreted the following; CT abdomen without contrast remarkable for fluid filled colon without focal wall thickening or surrounding inflammatory changes. Patient was given 2 L fluids, potassium, magnesium and calcium during his course of the ED. 11/08/2022 Patient is seen and evaluated on selective care unit; he went into atrial fibrillation with rapid ventricular response he was transferred to the third floor/selective minute. The patient did not have any symptoms of heart racing or fluttering and no dizziness or lightheadedness and no presyncope or syncope and no symptoms of chest pain or chest discomfort or shortness of breath. No prior history of atrial fibrillation. 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 Beside that no history of diabetes or hypertension or dyslipidemia. The patient was started initially on Cardizem drip but his pressure did go down and for that reason he was switched into amiodarone IV and subsequently converted to normal sinus mechanism and since then he has been maintaining normal sinus mechanism. Further investigation was performed including CBC and that showed a hemoglobin of 7.7. The patient has no history of bleeding. B eside that he underwent a computed tomography scan of the abdomen and pelvis because of the abdominal discomfort that showed no acute abnormalities. The troponin came in to be slightly elevated likely secondary to tachycardia. The EKG showed sinus rhythm now with no significant ST or T-wave abnormalities. Blood work reveals mild elevation of troponin; Patient has been evaluated by cardiology and recommended to continue with IV fluids, replace electrolytes; IV amiodarone is to be discontinued patient is transition to oral dose daily 11/09/2022 Patient is seen and evaluated in follow-up this morning and continues to feel generalized weakness and continues with loose stools. Per nursing staff when assisting to clean the patient up patient was significantly weak on the right. Patient denied any headache, dizziness, or lightheadedness. Will obtain a CT of the brain and also consult neurology. Recommend PT/OT therapy evaluation for significant weakness. C. diff testing was negative on the stool and will add Imodium and encourage oral intake and advance as tolerated. Patient is ma intaining on vitamins and zinc supplements along with subcutaneous heparin with anxiety following closely. Patient denies chest pain or shortness of breath. Afebrile. Recommend a.m. labs as well. 11/10/2022 Patient is seen in follow-up today with multiple medical consultations including cardiology, hematology, infectious disease, and now neurology following. Patient with significant weakness in all upper and lower extremities with neurology undergoing workup recommending aspirin as patient is not on any anticoagulation at this time. Cardiology is following and patient was transitioned back to IV Cardizem although being changed to oral with close monitoring. Magnesium found to be significantly low at 1.2 and will replace per protocol and recommend repeat labs. Hemoglobin is mildly low at 7.4 and undergoing anemia workup with hematology following. Patient with Covid and extreme weakness will need ECF and discharge planning in process. Recommend close monitoring of labs and replace electrolytes per protocol. Patient was started on Imodium as C. diff testing 2 was negative. Patient continues to have loose stools although somewhat improved. Encouraged oral intake and incr eased activity as tolerated. Recommend PT/OT therapy daily. Patient denies chest pain or shortness of breath. Patient is 97% on room air. Patient will continue on vitamin and zinc supplements with anxiety following closely. Recommend gentle IV hydration. 11/11/2022 Patient is seen and evaluated in follow-up with multiple medical consultations following including infectious disease and neurology. Oncology following undergoing anemia workup. Hemoglobin was found to be 6.5 today and will order 1 unit of PRBC and recommend close monitoring. No active bleeding noted. Patient was started on baby aspirin per neurology and scheduled to undergo MRI of the cervical spine today. Patient continues with significant weakness and will need rehab upon discharge. Patient is maintained on vitamin and zinc supplements and was also being followed by cardiology. Adjustments to medications being done and patient is on oral Cardizem. Will follow-up with repeat labs. Patient is afebrile and denies shortness of breath. Patient clinically appears to be improving. Per nursing staff patient is incontinent of stool in continues to be somewhat loose although less frequent. C. diff testing was negative and stool cultures are negative. Encouraged oral intake. Will discuss with case management about discharge planning to ECF as he will require a Covid hub. 11/12/2022 Patient is seen and evaluated in follow-up today with multiple medical consultations following including infectious disease, cardiology, neurology. Patient's hemoglobin is low again at 6.8 and will give 1 unit. Recommend holding aspirin. Patient did have an elevated d-dimer and CTA was ordered. GI was also consulted for anemia. Patient continues to have incontinence of stool and loose stools and is maintained on Questran and will be given Imodium as needed. Patient continues with generalized weakness and fatigue and also having some lower extremity pain and swelling and have ordered Dopplers of bilateral lo wer extremities as well. Patient with Covid vitamin and zinc supplements and anticoagulation with subcu heparin. Hematology also following for anemia. Recommend repeat CBC this evening and will transfuse another unit as well. Cardiology following and adjustments to medications being made and patient also being started on low-dose diuretics. Patient is having low-grade temps of 99.3- 99.6 and patient continues to be 95% or above on room air. Blood pressure on the lower side although stable. Stool cultures and C. diff testing have been negative. Patient started on antibiotics per ID recommendations in the form of Zithromax and ceftriaxone. Reviewed iron studies which are low and will give IV iron as well. Electrolytes continue to be low and will replace per protocol. Patient will need ECF once stabilized and discharged 11/13/2022 Patient is seen today with multiple medical consultations following and undergoing neurological workup and having bilateral upper and lower extremity weakness. Neurology recommends orthopedic consultation which is currently pending. Patient did have some movement in his diarrhea and reports becoming more formed and less frequent. Patient continues to be incontinent of this. Patient being started on antibiotics with anxiety following an also continues to have anemia. GI recommending continuing with hematology workup. Multiple images including MRIs and pending at time. Patient with significant weakness will be going to rehab when stable. A.m. labs are pending. 11/24/2022 Patient is currently resting in the bed. Awake alert and oriented x3. No complaints of chest pain or shortness of breath. Left lower abdominal discomfort is improved. Hemoglobin is stable. Vascular surgery has seen the patient is planning for IVC filter placement. Heparin is on hold due to retroperitoneal bleed. Laboratory data showed WBC 25.6 hemoglobin 7.1 and platelets 159 sodium 131 potassium 5.7 chloride 112 bicarb is 37 creatinine 1.18 and calcium 7.0. Nephrology, ID and vascular surgery is on board. 11/25/2022 Patient is currently resting in bed. Awake alert and oriented x3. On room air. No complaints of chest pain or shortness of breath. No abdominal pain. No nausea vomiting abdominal pain or diarrhea. Patient is scheduled for IVC filter placement today. Otherwise hemoglobin level is 6.8 and 1 unit of PRBC was ordered. Other laboratory data showed WBC 20.6 hemoglobin 6.8 and platelets 149 sodium 135 potassium 5.4 chloride 101 bicarb is 23 BUN 34 and creatinine 1.25. Magnesium 1.6. Patient is being continued dexamethasone as per orthopedic surgery. Also on IV Lasix. Nephrology and general surgery is on board. Patient was given a dose of Lokelma yesterday. 11/26/2022 Patient is currently resting in bed. Awake alert and oriented x3. No complaints of back pain or abdominal pain. No nausea vomiting abdominal pain or diarrhea. No cough or sputum production. Currently on room air. Patient is status post IVC filter placement on 11/25/2022. Patient received 1 unit of PRBC yesterday and hemoglobin improved to 7.6 today. Level data showed WBC 22.3 hemoglobin 7.6 and platelets 141 sodium 136 potassium 5.3 chloride 101 bicarb is 23 BUN 32 and creatinine 1.23 and blood sugar is 125 and calcium 7.2. Magnesium 1.9. Follow-up CBC and BMP was ordered. Orthopedic surgery is planning for OR when medically stable tomorrow. 11/28/2022 Patient is seen and evaluated in follow-up and apparently orthopedics is scheduled for surgical intervention is patient is unstable. Recommending awaiting medical clearance. Infectious disease following and patient is being maintained and monitored closely of IV antibiotic therapy. Patient is status post Tali filter placement any stable. No active bleeding noted. General surgery following for hematoma on the back with no surgical interventions planned. Patient with significant weakness recommend PT/OT therapy and will discuss with case management about discharge planning and ECF. Recommend follow-up labs in the a.m. she is currently afebrile denies chest pain or shortness of breath. He stable. No active bleeding noted. Patient is tolerating diet with no reports of nausea or vomiting noted. 11/29/2022 Patient was seen in follow-up this morning with orthopedics along with infectious disease, nephrology, general surgery, hematology following. Vital signs of been stable patient is continued on dexamethasone per orthopedics and will discuss about weaning parameters. Patient is also maintained off of antibiotics. Patient was significant weakness recommend PT/OT therapy and rehab on discharge. Patient continues to have elevated white blood count is infectious disease following and repeat inflammatory markers ordered. Patient is afebrile denies chest pain or shortness of breath. Review of systems: Constitutional: reports of fatigue, no fever, or chills Cardiovascular: No reports of chest pain or palpitations Respiratory: No reports of shortness of breath or cough GI: No reports of nausea, vomiting, reports improved diarrhea, reports mildly improved appetite : No reports of dysuria or retention Neurovascular: reports of generalized weakness All medications have been reviewed Physical exam: Gen: This is a 62-year-old male awake, alert and oriented 3, well-developed, well-nourished, ill-appearing. Pale HEENT: Head is atraumatic, normocephalic. Pupils equal, round. Sclerae is anicteric. NECK: Supple. No JVD. No lymphadenopathy. No thyromegaly. LUNGS: Breath sounds diminished bilaterally with some scattered rhonchi noted. No intercostal retractions. HEART: S1, S2 are muffled, irregular ABDOMEN: Soft. Bowel sounds are present. No masses. No tenderness. EXTREMITIES: No pedal edema. No calf tenderness. Lower extremity edema NEUROLOGICAL: Patient is awake, alert and oriented x3. Cranial nerves 2 through 12 are grossly intact. Diffusely weak Assessment: Acute blood loss. hb 5.9 due to retroperitoneal bleed with hematoma. Hyperkalemia due to GI bleed. Improved Bilateral Pneumonia with superimposed gram-negative bacterial infection is suspected mainly in the right lower lobe. Completed antibiotic course. Recent COVID-19 infection with pneumonia Acute hypoxic respiratory failure. Titrate down to room air.. Sepsis secondary to above Possible discitis as per MRI cervical spine. Hyperkalemia due to urinary retention and acute kidney injury. Improving now. Anemia with vitamin B12 deficiency and currently on IM B12 replacement therapy Elevated troponin, most likely type II. No chest pain, normal LV function Low vitamin B12 and B6 Nonocclusive thrombosis of the left leg status post [place] filter placement Paroxysmal atrial fibrillation no anticoagulation with score of 0 per [employer] DVT prophylaxis; SCDs No code Plan: CT of the abdomen pelvis showed retroperitoneal hemorrhage and intramuscular hematoma. Patient had IVC filter placement by vascular surgery on 11/25/2022 and anticoagulation on hold. Hemoglobin is currently stable. Orthopedics following and have canceled plans for cervical intervention until medically stable, will likely be outpatient, needs better hemoglobin and current infection recovery prior to any new surgery Nephrology following and Jo catheter was discontinued and maintained on Flomax. Recommend monitoring for retention Patient is being closely monitored off IV antibiotic therapy WBC remains elevated with infectious disease following inflammatory markers ordered Recommend continue current medications and management with multiple medical con sultations following Will need to discuss treatment plan with orthopedics along with case management about discharge planning surgical intervention to outpatient, and will also need to discuss about possible ECF on discharge Continue with dexamethasone per orthopedic team, and will begin weaning soon Continue with vitamin B12 replacement therapy Due to multiple complex medical issues, prognosis is guarded The impression and plan of care has been dictated by Priscilla Steven, Nurse Leonardo potter as directed. Dr. Jovanny MD I have performed a history and examination and MDM of this patient, discussed the same with the dictator, and agree with the dictator's assessment and plan as written ,documented as a scribe. Based on total visit time, I have performed more than 50% of the visit. Objective - Vital Signs Vital signs: Vital Signs Temp 98.4 F 11/29/22 07:59 Pulse 78 11/29/22 07:59 Resp 16 11/29/22 07:59 BP 107/72 11/29/22 07:59 Pulse Ox 97 11/29/22 07:59 FiO2 Intake & Output 11/28/22 11/29/22 11/29/22 18:59 06:59 18:59 Intake Total 236 Output Total 1900 700 Balance -1664 -700 Weight 118 kg 118.5 kg Intake: Oral 236 Output: Urine 1900 700 Uretheral (Jo) 1900 Other: Voiding Method External Catheter External Catheter # Voids 2 - Labs CBC & Chem 7: 11/29/22 05:09 11/29/22 05:09 Labs: Abnormal Lab Results - Last 24 Hours (Table) 11/28/22 11/28/22 11/28/22 Range/Units 11:45 17:26 20:04 WBC (3.8-10.6) k/uL RBC (4.30-5.90) m/uL Hgb (13.0-17.5) gm/dL Hct (39.0-53.0) % RDW (11.5-15.5) % Plt Count (150-450) k/uL Neutrophils # (1.3-7.7) k/uL Lymphocytes # (1.0-4.8) k/uL Sodium (137-145) mmol/L Chloride (98-107) mmol/L BUN (9-20) mg/dL Glucose (74-99) mg/dL POC Glucose (mg/dL) 227 H 318 H 288 H (70-110) mg/dL Calcium (8.4-10.2) mg/dL 11/29/22 11/29/22 11/29/22 Range/Units 05:09 05:09 06:27 WBC 24.1 H (3.8-10.6) k/uL RBC 2.24 L (4.30-5.90) m/uL Hgb 7.3 L (13.0-17.5) gm/dL Hct 22.2 L (39.0-53.0) % RDW 18.9 H (11.5-15.5) % Plt Count 134 L (150-450) k/uL Neutrophils # 22.4 H (1.3-7.7) k/uL Lymphocytes # 0.8 L (1.0-4.8) k/uL Sodium 136 L (137-145) mmol/L Chloride 110 H (98-107) mmol/L BUN 33 H (9-20) mg/dL Glucose 151 H (74-99) mg/dL POC Glucose (mg/dL) 181 H (70-110) mg/dL Calcium 7.0 L (8.4-10.2) mg/dL Microbiology - Last 24 Hours (Table) 11/23/22 06:28 Blood Culture - Final Blood No Growth after 144 hours 11/23/22 06:19 Blood Culture - Final Blood No Growth after 144 hours
[2022-11-30] MEDS: LEVOTHYROXINE 50 MCG TAB PO SCH (06:35)
--- NOTE | 2022-11-30 07:04 | P.PN ---
Subjective Progress Note Date: 11/30/22 Principal diagnosis: Bilateral upper extremity weakness back pain Patient seen and examined this morning. Patient is resting in bed. Hgb 7.3 yesterday 11/29/21, awaiting labs results for today. There has been no changes in patients symptoms of the upper and lower extremities. He has no acute concerns at this time. He has been afebrile, denies nausea/vomiting, or chest pain. Objective - Vital Signs Vital signs: Vital Signs Temp 98.4 F 11/30/22 02:30 Pulse 78 11/30/22 02:30 Resp 17 11/30/22 02:30 BP 107/71 11/30/22 02:30 Pulse Ox 97 11/30/22 02:30 FiO2 Intake & Output 11/29/22 11/29/22 11/30/22 06:59 18:59 06:59 Output Total 700 1000 1000 Balance -700 -1000 -1000 Weight 118.5 kg Output: Urine 700 1000 1000 Other: Voiding Method External Catheter External Catheter # Voids 2 # Bowel Movements 1 2 - Exam Physical Examination General: The patient is awake and alert, in no acute distress Skin: Skin is warm and dry with no obvious rashes or lesions. Hairy patches absent, no dorsal skin dimples, no cafe au lait spots, surgical site in the groin. Eye: Pupils are equal, round and reactive to light, extra-ocular movements are intact; there is normal conjunctiva bilaterally. Neck: The neck is supple, there is no tenderness and ROM intact. Cardiovascular: There is a regular rate and rhythm. No murmur, rub or gallop is appreciated. Left lower 2+ pitting edema present. Respiratory: Lungs are clear to auscultation, respirations are non-labored, breath sounds are equal. Gastrointestinal: Soft, non-distended, non-tender abdomen. Back: There is no tenderness to palpation in the midline, paralumbar, parathoracic or buttocks region. There is no obvious deformity . Musculoskeletal: ROM limited secondary to pain and stiffness from surgical procedure. Muscle strength in all major muscle groups of right upper extremity 3/5, left upper extremity 4/5, bilateral lower extremities 4-/5. Neurological: CN 2-12 intact. There are no obvious motor or sensory deficits. Movement and coordination equal and intact. Sensory exam to light touch intact C5-T1 and intact from L2-S1. Reflexes 2/4 in bilateral upper and lower extremities. Negative Hoffmans, babinski, and clonus signs. Psychiatric: Cooperative, appropriate mood & affect, normal judgment. - Labs CBC & Chem 7: 11/29/22 05:09 11/29/22 05:09 Labs: Abnormal Lab Results - Last 24 Hours (Table) 11/29/22 11/29/22 11/29/22 Range/Units 05:09 05:09 12:12 WBC 24.1 H (3.8-10.6) k/uL RBC 2.24 L (4.30-5.90) m/uL Hgb 7.3 L (13.0-17.5) gm/dL Hct 22.2 L (39.0-53.0) % RDW 18.9 H (11.5-15.5) % Plt Count 134 L (150-450) k/uL Neutrophils # 22.4 H (1.3-7.7) k/uL Lymphocytes # 0.8 L (1.0-4.8) k/uL Sodium 136 L (137-145) mmol/L Chloride 110 H (98-107) mmol/L BUN 33 H (9-20) mg/dL Glucose 151 H (74-99) mg/dL POC Glucose (mg/dL) 175 H (70-110) mg/dL Calcium 7.0 L (8.4-10.2) mg/dL 11/29/22 11/29/22 Range/Units 17:06 20:34 WBC (3.8-10.6) k/uL RBC (4.30-5.90) m/uL Hgb (13.0-17.5) gm/dL Hct (39.0-53.0) % RDW (11.5-15.5) % Plt Count (150-450) k/uL Neutrophils # (1.3-7.7) k/uL Lymphocytes # (1.0-4.8) k/uL Sodium (137-145) mmol/L Chloride (98-107) mmol/L BUN (9-20) mg/dL Glucose (74-99) mg/dL POC Glucose (mg/dL) 199 H 234 H (70-110) mg/dL Calcium (8.4-10.2) mg/dL Microbiology - Last 24 Hours (Table) 11/23/22 06:28 Blood Culture - Final Blood No Growth after 144 hours 11/23/22 06:19 Blood Culture - Final Blood No Growth after 144 hours Assessment and Plan Assessment: Bilateral upper extremity weakness Left knee pain, edema Large retroperitoneal hematoma Anemia of unknown origin Plan: Plans for cervical and lumbar surgical procedures have been canceled until patient is medically cleared. Appreciate medical management Pain management - Tylenol DVT prophylaxis -mechanical GI prophylaxis - Protonix; Tums PT/OT - weightbearing as tolerated with walker. Appreciate consult *I reviewed and discussed this case with my attending Dr. Starr, whom has reviewed this chart and films and is in agreement with assessment and plan of care as outlined above. I have personally seen and examined the patient, performed the documentation and the assessment and plan as written. Number of minutes spent on the visit: 15m.
[2022-11-30 07:21] LABS: Glucose,Whole Blood 146 mg/dL (70-110)
[2022-11-30] MEDS: INSULIN ASPART (NovoLOG) 100 UNIT/ML VIAL SQ SCH ×4 (08:04→21:07)
[2022-11-30] MEDS: ASCORBIC ACID 500 MG TAB PO SCH ×2 (08:10→21:01)
[2022-11-30] MEDS: ZINC SULFATE 220 MG CAP PO SCH (08:10)
[2022-11-30] MEDS: FUROSEMIDE 40 MG TAB PO SCH (08:10)
[2022-11-30] MEDS: FLUoxetine HCL 20 MG CAP PO SCH (08:11)
[2022-11-30] MEDS: SODIUM BICARBONATE TAB 650 MG TAB PO SCH ×3 (08:11→21:01)
[2022-11-30] MEDS: CYANOCOBALAMIN 500 MCG TAB PO SCH (08:11)
[2022-11-30] MEDS: PANTOPRAZOLE 40 MG/10 ML VIAL IVP SCH ×2 (08:11→21:02)
[2022-11-30] MEDS: PYRIDOXINE 50 MG TAB PO SCH (08:11)
[2022-11-30] MEDS: FOLIC ACID 1 MG TAB PO SCH (08:11)
[2022-11-30] MEDS: DEXAMETHASONE SOD PHOSPHATE 4 MG/ML 1 ML VIAL IVP SCH ×2 (08:11→16:05)
[2022-11-30] MEDS: DILTIAZEM ORAL 30 MG TAB PO SCH ×3 (08:11→21:01)
[2022-11-30] MEDS: THIAMINE 100 MG TAB PO SCH (08:11)
[2022-11-30] MEDS: MAGNESIUM OXIDE 400 MG TAB PO SCH (08:11)
[2022-11-30] MEDS: CALCIUM CARBONATE 500 MG CHEWABLE PO SCH ×3 (08:11→21:01)
[2022-11-30] MEDS: CHOLECALCIFEROL 25 MCG (1000 IU) TABLET PO SCH (08:11)
[2022-11-30] MEDS: INSULIN DETEMIR (LEVEMIR) 100 UNIT/ML SYR SQ SCH (08:12)
[2022-11-30 09:30] LABS: ALT 29 U/L (10-49); AST 14 U/L (14-35); African American GFR (CKD) 74.7 (60.0-200.0); Albumin 2.3 g/dL (3.8-4.9); Albumin/Globulin Ratio 1.53 (1.60-3.17); Alkaline Phosphatase 45 U/L (41-126); Blood Urea Nitrogen 49.8 mg/dL (9.0-27.0); Calcium 7.5 mg/dL (8.7-10.3); Chloride 107 mmol/L (96-109); Globulin 1.5 g/dL (1.6-3.3); Glucose 126 mg/dL (70-110); Non-African American GFR(CKD) 64.4 (60.0-200.0); Potassium 5.4 mmol/L (3.5-5.5); Sodium 136 mmol/L (135-145); Total Protein 3.8 g/dL (6.2-8.2)
[2022-11-30] MEDS: CHOLESTYRAMINE (WITH SUGAR) 4 GM PACKET PO SCH ×2 (10:20→17:10)
[2022-11-30 10:48] LABS: Basophils # (A) 0.02 X 10*3/uL (0.00-0.10); Basophils % (A) 0.1 %; Eosinophils # (A) 0 X 10*3/uL (0.04-0.35); Eosinophils % (A) 0 %; HCT 17.6 % (39.6-50.0); HGB 5.5 g/dL (13.0-17.0); Immature Grans, Automated 1.6 %; Lymphocytes # (A) 1.23 X 10*3/uL (0.90-5.00); MCH 30.6 pg (27.0-32.0); MCHC 31.3 g/dL (32.0-37.0); MCV 97.8 fL (80.0-97.0); Mean Platelet Volume 11.5 fL (9.5-12.2); Monocytes # (A) 0.97 X 10*3/uL (0.20-1.00); Monocytes % (A) 3.9 %; NRBC Per 100 WBC 0 /100 WBCS (0.0-0.0); Neutrophils # (A) 21.98 X 10*3/uL (1.80-7.70); Neutrophils % (A) 89.4 %; Platelet Count 125 X 10*3/uL (140-440); RDW 20.8 % (11.5-14.5); WBC 24.59 X 10*3/uL (4.50-10.00)
[2022-11-30 10:49] LABS: C Reactive Protein <0.30 mg/dL (0.00-0.80)
[2022-11-30] MEDS ORDERED: FUROSEMIDE 10 MG/ML 4 ML VIAL IV PRN (11:31)
[2022-11-30 12:16] LABS: Glucose,Whole Blood 185 mg/dL (70-110)
[2022-11-30] MEDS ORDERED: IOPAMIDOL CONTRAST (ORAL USE) VIAL PO PRN (14:00)
--- NOTE | 2022-11-30 14:38 | P.GSCN ---
History of Present Illness Consult date: 11/30/22 Reason for Consult: Retroperitoneal hematoma, drop in hemoglobin Requesting physician: Priscilla Steven History of present illness: 62-year-old gentleman who initially presented to the hospital secondary to diarrhea and found to be covid positive. He then developed weakness in all 4 extremities and was being evaluated by orthospine and was scheduled to have surgical intervention first on his cervical spine then lumbar spine later in the week. He does have a history of DVT and has been on IV heparin for his clots with the plan of stopping heparin for the surgery. Last week he was noted to have a drop in his hemoglobin and complains of some abdominal discomfort and ultimately underwent a CT angiogram that demonstrated a large intramuscular hematoma in the left iliac is muscle in the retroperitoneum. Due to this large retroperitoneal hematoma as well as his DVT vascular surgery was consulted for IVC filter placement that patient underwent on 11/25/2022. His hemoglobin had stabilized however today he had a drop in his hemoglobin to 5.5. Nursing reported loose black bowel movements yesterday and today. Has bruising along his left flank has not increased in size. He has no palpable hematoma in the abdomen or flank. Hs currently receiving 2 units of blood. He denies any shortness of breath, chest pain, abdominal pain, nausea or vomiting. Denies any fevers chills or body aches. Still has weakness in his upper and lower extremities. Orthospine still following patient closely. Review of Systems A 14 point review systems was completed all pertinent positives and negatives as stated in the HPI. Past Medical History Past Medical History: Sleep Apnea/CPAP/BIPAP, Thyroid Disorder Additional Past Medical History / Comment(s): thyroid issue. pt reports not using CPAP/BIPAP at History of Any Multi-Drug Resistant Organisms: None Reported Additional Past Surgical History / Comment(s): gastric bypass. Umbilical her jesus, 6x hernia surgeries, fell & broke hip in 2019 - pt was in [facility] at the time and reports getting a pin in hip. Past Anesthesia/Blood Transfusion Reactions: No Reported Reaction Past Psychological History: Depression Smoking Status: Never smoker Past Alcohol Use History: Occasional Additional Past Alcohol Use History / Comment(s): Patient reports moving to [place] in April 2022 and cutting back on alcohol us. Prior to moving to [place], pt reports drinking one 5th of whiskey a day, but only drinks occasionally now. Pt reports to RN that he drank one 5th of whiskey last Wednesday. Past Drug Use History: None Reported Medications and Allergies Home Medications Medication Instructions Recorded Confirmed Type Calcium Carbonate [Calcium] 600 mg PO DAILY 09/09/22 11/06/22 History Ergocalciferol (Vitamin D2) 1,250 mcg PO MOWE 09/09/22 11/06/22 History [Drisdol (50,000 Iu)] FLUoxetine HCL [PROzac] 20 mg PO DAILY 09/09/22 11/06/22 History Levothyroxine Sodium [Synthroid] 50 mcg PO DAILY 09/09/22 11/06/22 History Magnesium Oxide [Magnesium] 500 mg PO DAILY 09/09/22 11/06/22 History Diclofenac Sodium Gel [Voltaren 2 gm TOPICAL QID PRN 11/06/22 11/06/22 History Gel] Folic Acid 0.4 mg PO DAILY 11/06/22 11/06/22 History Ibuprofen [Motrin] 600 mg PO TID PRN 11/06/22 11/06/22 History Thiamine [Vitamin B-1] 100 mg PO DAILY 11/06/22 11/06/22 History Fondaparinux [Arixtra] 10 mg SQ DAILY #30 each 11/19/22 Rx Allergies Allergy/AdvReac Type Severity Reaction Status Date / Time No Known Allergies Allergy Verified 11/06/22 14:38 Surgical - Exam Vital Signs Temp Pulse Resp BP Pulse Ox 98.3 F 110 H 22 119/76 100 11/06/22 11:51 11/06/22 11:51 11/06/22 11:51 11/06/22 11:51 11/06/22 11:51 General appearance: The patient is alert, oriented, appears in no acute distress. HET: Head is normocephalic and atraumatic. Pupils are equal and reactive. Neck: Supple without lymphadenopathy. Trachea midline. Heart: Regular. Lungs: Equal expansion, normal respiratory effort. Abdomen: Soft, nontender, anasarca, nondistended. Left flank with bruising noted, soft. Extremities: Bilateral lower extremity swelling. Bilateral upper extremity swelling. Neurological: Weakness in bilateral upper and lower extremities. Greater in right upper extremity and left lower extremity. Results - Labs 11/30/22 05:19 11/30/22 05:19 Abnormal Lab Results - Last 24 Hours (Table) 11/29/22 11/29/22 11/30/22 Range/Units 17:06 20:34 05:19 WBC (4.50-10.00) X 10*3/uL RBC (4.40-5.60) X 10*6/uL Hgb (13.0-17.0) g/dL Hct (39.6-50.0) % MCV (80.0-97.0) fL MCHC (32.0-37.0) g/dL RDW (11.5-14.5) % Plt Count (140-440) X 10*3/uL Plt Count Comment Immature Gran # (0.00-0.04) X 10*3/uL Neutrophils # (1.80-7.70) X 10*3/uL Eosinophils # (0.04-0.35) X 10*3/uL Anion Gap (10.00-18.00) mmol/L BUN (9.0-27.0) mg/dL BUN/Creatinine Ratio (12.00-20.00) Ratio Glucose (70-110) mg/dL POC Glucose (mg/dL) 199 H 234 H (70-110) mg/dL Calcium (8.7-10.3) mg/dL Total Protein (6.2-8.2) g/dL Albumin (3.8-4.9) g/dL Globulin (1.6-3.3) g/dL Albumin/Globulin Ratio (1.60-3.17) g/dL Procalcitonin 0.12 H (0.02-0.09) ng/mL Crossmatch 11/30/22 11/30/22 11/30/22 Range/Units 05:19 05:19 07:20 WBC 24.59 H (4.50-10.00) X 10*3/uL RBC 1.80 L (4.40-5.60) X 10*6/uL Hgb 5.5 L* (13.0-17.0) g/dL Hct 17.6 L* (39.6-50.0) % MCV 97.8 H (80.0-97.0) fL MCHC 31.3 L (32.0-37.0) g/dL RDW 20.8 H (11.5-14.5) % Plt Count 125 L (140-440) X 10*3/uL Plt Count Comment DECREASED A Immature Gran # 0.39 H (0.00-0.04) X 10*3/uL Neutrophils # 21.98 H (1.80-7.70) X 10*3/uL Eosinophils # 0 L (0.04-0.35) X 10*3/uL Anion Gap 8.00 L (10.00-18.00) mmol/L BUN 49.8 H (9.0-27.0) mg/dL BUN/Creatinine Ratio 41.50 H (12.00-20.00) Ratio Glucose 126 H (70-110) mg/dL POC Glucose (mg/dL) 146 H (70-110) mg/dL Calcium 7.5 L (8.7-10.3) mg/dL Total Protein 3.8 L (6.2-8.2) g/dL Albumin 2.3 L (3.8-4.9) g/dL Globulin 1.5 L (1.6-3.3) g/dL Albumin/Globulin Ratio 1.53 L (1.60-3.17) g/dL Procalcitonin (0.02-0.09) ng/mL Crossmatch 11/30/22 11/30/22 Range/Units 11:40 12:14 WBC (4.50-10.00) X 10*3/uL RBC (4.40-5.60) X 10*6/uL Hgb (13.0-17.0) g/dL Hct (39.6-50.0) % MCV (80.0-97.0) fL MCHC (32.0-37.0) g/dL RDW (11.5-14.5) % Plt Count (140-440) X 10*3/uL Plt Count Comment Immature Gran # (0.00-0.04) X 10*3/uL Neutrophils # (1.80-7.70) X 10*3/uL Eosinophils # (0.04-0.35) X 10*3/uL Anion Gap (10.00-18.00) mmol/L BUN (9.0-27.0) mg/dL BUN/Creatinine Ratio (12.00-20.00) Ratio Glucose (70-110) mg/dL POC Glucose (mg/dL) 185 H (70-110) mg/dL Calcium (8.7-10.3) mg/dL Total Protein (6.2-8.2) g/dL Albumin (3.8-4.9) g/dL Globulin (1.6-3.3) g/dL Albumin/Globulin Ratio (1.60-3.17) g/dL Procalcitonin (0.02-0.09) ng/mL Crossmatch See Detail Diabetes panel 11/30/22 Range/Units 05:19 Sodium 136 (135-145) mmol/L Potassium 5.4 (3.5-5.5) mmol/L Chloride 107 (96-109) mmol/L Carbon Dioxide 21.0 (20.0-27.5) mmol/L BUN 49.8 H (9.0-27.0) mg/dL Creatinine 1.2 (0.6-1.5) mg/dL Glucose 126 H (70-110) mg/dL Calcium 7.5 L (8.7-10.3) mg/dL AST 14 (14-35) U/L ALT 29 (10-49) U/L Alkaline Phosphatase 45 (41-126) U/L Total Protein 3.8 L (6.2-8.2) g/dL Albumin 2.3 L (3.8-4.9) g/dL Calcium panel 11/30/22 Range/Units 05:19 Calcium 7.5 L (8.7-10.3) mg/dL Albumin 2.3 L (3.8-4.9) g/dL Pituitary panel 11/30/22 Range/Units 05:19 Sodium 136 (135-145) mmol/L Potassium 5.4 (3.5-5.5) mmol/L Chloride 107 (96-109) mmol/L Carbon Dioxide 21.0 (20.0-27.5) mmol/L BUN 49.8 H (9.0-27.0) mg/dL Creatinine 1.2 (0.6-1.5) mg/dL Glucose 126 H (70-110) mg/dL Calcium 7.5 L (8.7-10.3) mg/dL Adrenal panel 11/30/22 Range/Units 05:19 Sodium 136 (135-145) mmol/L Potassium 5.4 (3.5-5.5) mmol/L Chloride 107 (96-109) mmol/L Carbon Dioxide 21.0 (20.0-27.5) mmol/L BUN 49.8 H (9.0-27.0) mg/dL Creatinine 1.2 (0.6-1.5) mg/dL Glucose 126 H (70-110) mg/dL Calcium 7.5 L (8.7-10.3) mg/dL Total Bilirubin 0.30 (0.30-1.20) mg/dL AST 14 (14-35) U/L ALT 29 (10-49) U/L Alkaline Phosphatase 45 (41-126) U/L Total Protein 3.8 L (6.2-8.2) g/dL Albumin 2.3 L (3.8-4.9) g/dL Assessment and Plan Assessment: 1. Large intramuscular hematoma left iliac muscle, retroperitoneal hematoma 2. Acute blood loss anemia 3. Acute on chronic deep venous thrombosis left proximal calf vein 4. COVID-19 positive Plan: 1. Stat CT angiogram abdomen and pelvis ordered 2. Daily CBC, transfuse for hemoglobin less than 7 3. Continue medical management per primary team 4. Appreciate recommendations from general surgery 5. Further recommendations forthcoming per vascular surgeon The impression and plan of care has been dictated as directed. Dr. Hinkle I performed a history and examination of this patient, discussed the same with the dictator. I agree with the dictator's note ,documented as a scribe. Any additional findings or plans will be noted.
--- NOTE | 2022-11-30 15:19 | P.PN ---
Subjective Progress Note Date: 11/30/22 Paroxysmal atrial fibrillation Intractable nausea/vomiting/diarrhea Profound hypokalemia Acute renal injury COVID-19 infection 62-year-old male in the emergency department for diarrhea. She notes diarrhea starting and he asked progressively gotten worse. He reports he stood up from a chair and had an episode of diarrhea, admits he still maintains bowel function. He has not tried anything for his symptoms. He denies nausea, vomiting, abdominal pain, palpitations, fevers. Denies recent travel or recent antibiotic use. He is scheduled to have his first colonoscopy in january of 2023. Patient had an initial lab work is remarkable for WBC is 11.4, hemoglobin 8.7, INR 1.2, sodium 133, potassium 2.6 lactic acid 2.9, calcium 6.3, magnesium 0.8, lipase 60, COVID positive. I interpreted the following; CT abdomen without contrast remarkable for fluid filled colon without focal wall thickening or surrounding inflammatory changes. Patient was given 2 L fluids, potassium, magnesium and calcium during his course of the ED. 11/08/2022 Patient is seen and evaluated on selective care unit; he went into atrial fibrillation with rapid ventricular response he was transferred to the third floor/selective minute. The patient did not have any symptoms of heart racing or fluttering and no dizziness or lightheadedness and no presyncope or syncope and no symptoms of chest pain or chest discomfort or shortness of breath. No prior history of atrial fibrillation. No history of coronary artery disease or congestive heart failure or cardiac arrhythmia and the patient never seen a head nurse in the past. Beside that no history of diabetes or hypertension or dyslipidemia. The patient was started initially on Cardizem drip but his pressure did go down and for that reason he was switched into amiodarone IV and subsequently converted to normal sinus mechanism and since then he has been maintaining normal sinus mechanism. Further investigation was performed including CBC and that showed a hemoglobin of 7.7. The patient has no history of bleeding. B eside that he underwent a computed tomography scan of the abdomen and pelvis because of the abdominal discomfort that showed no acute abnormalities. The troponin came in to be slightly elevated likely secondary to tachycardia. The EKG showed sinus rhythm now with no significant ST or T-wave abnormalities. Blood work reveals mild elevation of troponin; Patient has been evaluated by cardiology and recommended to continue with IV fluids, replace electrolytes; IV amiodarone is to be discontinued patient is transition to oral dose daily 11/09/2022 Patient is seen and evaluated in follow-up this morning and continues to feel generalized weakness and continues with loose stools. Per nursing staff when assisting to clean the patient up patient was significantly weak on the right. Patient denied any headache, dizziness, or lightheadedness. Will obtain a CT of the brain and also consult neurology. Recommend PT/OT therapy evaluation for significant weakness. C. diff testing was negative on the stool and will add Imodium and encourage oral intake and advance as tolerated. Patient is ma intaining on vitamins and zinc supplements along with subcutaneous heparin with anxiety following closely. Patient denies chest pain or shortness of breath. Afebrile. Recommend a.m. labs as well. 11/10/2022 Patient is seen in follow-up today with multiple medical consultations including cardiology, hematology, infectious disease, and now neurology following. Patient with significant weakness in all upper and lower extremities with neurology undergoing workup recommending aspirin as patient is not on any anticoagulation at this time. Cardiology is following and patient was transitioned back to IV Cardizem although being changed to oral with close monitoring. Magnesium found to be significantly low at 1.2 and will replace per protocol and recommend repeat labs. Hemoglobin is mildly low at 7.4 and undergoing anemia workup with hematology following. Patient with Covid and extreme weakness will need ECF and discharge planning in process. Recommend close monitoring of labs and replace electrolytes per protocol. Patient was started on Imodium as C. diff testing 2 was negative. Patient continues to have loose stools although somewhat improved. Encouraged oral intake and incr eased activity as tolerated. Recommend PT/OT therapy daily. Patient denies chest pain or shortness of breath. Patient is 97% on room air. Patient will continue on vitamin and zinc supplements with anxiety following closely. Recommend gentle IV hydration. 11/11/2022 Patient is seen and evaluated in follow-up with multiple medical consultations following including infectious disease and neurology. Oncology following undergoing anemia workup. Hemoglobin was found to be 6.5 today and will order 1 unit of PRBC and recommend close monitoring. No active bleeding noted. Patient was started on baby aspirin per neurology and scheduled to undergo MRI of the cervical spine today. Patient continues with significant weakness and will need rehab upon discharge. Patient is maintained on vitamin and zinc supplements and was also being followed by cardiology. Adjustments to medications being done and patient is on oral Cardizem. Will follow-up with repeat labs. Patient is afebrile and denies shortness of breath. Patient clinically appears to be improving. Per nursing staff patient is incontinent of stool in continues to be somewhat loose although less frequent. C. diff testing was negative and stool cultures are negative. Encouraged oral intake. Will discuss with case management about discharge planning to ECF as he will require a Covid hub. 11/12/2022 Patient is seen and evaluated in follow-up today with multiple medical consultations following including infectious disease, cardiology, neurology. Patient's hemoglobin is low again at 6.8 and will give 1 unit. Recommend holding aspirin. Patient did have an elevated d-dimer and CTA was ordered. GI was also consulted for anemia. Patient continues to have incontinence of stool and loose stools and is maintained on Questran and will be given Imodium as needed. Patient continues with generalized weakness and fatigue and also having some lower extremity pain and swelling and have ordered Dopplers of bilateral lo wer extremities as well. Patient with Covid vitamin and zinc supplements and anticoagulation with subcu heparin. Hematology also following for anemia. Recommend repeat CBC this evening and will transfuse another unit as well. Cardiology following and adjustments to medications being made and patient also being started on low-dose diuretics. Patient is having low-grade temps of 99.3- 99.6 and patient continues to be 95% or above on room air. Blood pressure on the lower side although stable. Stool cultures and C. diff testing have been negative. Patient started on antibiotics per ID recommendations in the form of Zithromax and ceftriaxone. Reviewed iron studies which are low and will give IV iron as well. Electrolytes continue to be low and will replace per protocol. Patient will need ECF once stabilized and discharged 11/13/2022 Patient is seen today with multiple medical consultations following and undergoing neurological workup and having bilateral upper and lower extremity weakness. Neurology recommends orthopedic consultation which is currently pending. Patient did have some movement in his diarrhea and reports becoming more formed and less frequent. Patient continues to be incontinent of this. Patient being started on antibiotics with anxiety following an also continues to have anemia. GI recommending continuing with hematology workup. Multiple images including MRIs and pending at time. Patient with significant weakness will be going to rehab when stable. A.m. labs are pending. 11/24/2022 Patient is currently resting in the bed. Awake alert and oriented x3. No complaints of chest pain or shortness of breath. Left lower abdominal discomfort is improved. Hemoglobin is stable. Vascular surgery has seen the patient is planning for IVC filter placement. Heparin is on hold due to retroperitoneal bleed. Laboratory data showed WBC 25.6 hemoglobin 7.1 and platelets 159 sodium 131 potassium 5.7 chloride 112 bicarb is 37 creatinine 1.18 and calcium 7.0. Nephrology, ID and vascular surgery is on board. 11/25/2022 Patient is currently resting in bed. Awake alert and oriented x3. On room air. No complaints of chest pain or shortness of breath. No abdominal pain. No nausea vomiting abdominal pain or diarrhea. Patient is scheduled for IVC filter placement today. Otherwise hemoglobin level is 6.8 and 1 unit of PRBC was ordered. Other laboratory data showed WBC 20.6 hemoglobin 6.8 and platelets 149 sodium 135 potassium 5.4 chloride 101 bicarb is 23 BUN 34 and creatinine 1.25. Magnesium 1.6. Patient is being continued dexamethasone as per orthopedic surgery. Also on IV Lasix. Nephrology and general surgery is on board. Patient was given a dose of Lokelma yesterday. 11/26/2022 Patient is currently resting in bed. Awake alert and oriented x3. No complaints of back pain or abdominal pain. No nausea vomiting abdominal pain or diarrhea. No cough or sputum production. Currently on room air. Patient is status post IVC filter placement on 11/25/2022. Patient received 1 unit of PRBC yesterday and hemoglobin improved to 7.6 today. Level data showed WBC 22.3 hemoglobin 7.6 and platelets 141 sodium 136 potassium 5.3 chloride 101 bicarb is 23 BUN 32 and creatinine 1.23 and blood sugar is 125 and calcium 7.2. Magnesium 1.9. Follow-up CBC and BMP was ordered. Orthopedic surgery is planning for OR when medically stable tomorrow. 11/28/2022 Patient is seen and evaluated in follow-up and apparently orthopedics is scheduled for surgical intervention is patient is unstable. Recommending awaiting medical clearance. Infectious disease following and patient is being maintained and monitored closely of IV antibiotic therapy. Patient is status post [place] filter placement any stable. No active bleeding noted. General surgery following for hematoma on the back with no surgical interventions planned. Patient with significant weakness recommend PT/OT therapy and will discuss with case management about discharge planning and ECF. Recommend follow-up labs in the a.m. she is currently afebrile denies chest pain or shortness of breath. He stable. No active bleeding noted. Patient is tolerating diet with no reports of nausea or vomiting noted. 11/29/2022 Patient was seen in follow-up this morning with orthopedics along with infectious disease, nephrology, general surgery, hematology following. Vital signs of been stable patient is continued on dexamethasone per orthopedics and will discuss about weaning parameters. Patient is also maintained off of antibiotics. Patient was significant weakness recommend PT/OT therapy and rehab on discharge. Patient continues to have elevated white blood count is infectious disease following and repeat inflammatory markers ordered. Patient is afebrile denies chest pain or shortness of breath. 11/30/2022 Patient is seen and evaluated in follow-up today with multiple medical consultations following. Hemoglobin was found to be critically low at 5.5 with a hematocrit of 17.6 and awaiting to receive 2 units of blood. Patient is status post IVC filter this admission as he was having anemia with acute on chronic DVT of the left proximal vein and also found to have a large intramuscular hematoma of the left iliac muscle, retroperitoneal hematoma. Gen. surgery services following as well. Patient also noted be having black tarry stools and will reconsult GI as we have services available tomorrow. Patient was having some abdominal discomfort and will obtain CT angiogram and evaluate for bleeding. Orthopedics following and were initially discussing surgical intervention of the lower spine although on hold as patient is not medically stable for surgical intervention at this time. Patient is maintained on IV dexamethasone and being weaned per orthopedics. Patient continues with significant weakness and bilateral foot drop and inability to ambulate and generalized edema noted throughout. Patient is maintained on oral Lasix and will give a dose of IV Lasix posttransfusion and follow-up with repeat labs this evening. Patient is afebrile denies chest pain or shortness of breath. Patient is frustrated and appears depressed. Patient denies any suicidal thoughts or wanting to harm himself or others. Review of systems: Constitutional: No reports of fatigue, no fever, or chills Cardiovascular: No reports of chest pain or palpitations Respiratory: No reports of shortness of breath or cough GI: No reports of nausea, vomiting, reports black stools that are loose and some abdominal discomfort : No reports of dysuria or retention Neurovascular: reports of generalized weakness All medications have been reviewed Active Medications Acetaminophen (Acetaminophen Tab 325 Mg Tab) 650 mg PO Q6HR PRN PRN Reason: Mild Pain or Fever > 100.5 Last Admin: 11/23/22 05:38 Dose: 650 mg Ascorbic Acid (Ascorbic Acid 500 Mg Tab) 500 mg PO BID [facility] Last Admin: 11/30/22 08:10 Dose: 500 mg Calcium Carbonate/Glycine (Calcium Carbonate 500 Mg Chewable) 500 mg PO TID [facility] Last Admin: 11/30/22 08:11 Dose: 500 mg Cholecalciferol (Cholecalciferol 25 Mcg (1000 Iu) Tablet) 50 mcg PO DAILY [facility] Last Admin: 11/30/22 08:11 Dose: 50 mcg Cholestyramine Resin (Cholestyramine (With Sugar) 4 Gm Packet) 4 gm PO BID@1000,1800 [facility] Last Admin: 11/30/22 10:20 Dose: 4 gm Cyanocobalamin (Cyanocobalamin 500 Mcg Tab) 1,000 mcg PO DAILY [facility] Last Admin: 11/30/22 08:11 Dose: 1,000 mcg Dexamethasone Sodium Phosphate (Dexamethasone Sod Phosphate 4 Mg/Ml 1 Ml Vial) 2 mg IVP Q8HR [facility] Last Admin: 11/30/22 08:11 Dose: 2 mg Dextrose/Water (Dextrose 50% Syringe 50 Ml) 25 ml IVP PER PROTOCOL PRN; Protocol PRN Reason: Hypoglycemia Dextrose/Water (Dextrose 50% Syringe 50 Ml) 50 ml IVP PER PROTOCOL PRN; Pro tocol PRN Reason: Hypoglycemia Diclofenac Sodium (Diclofenac Sodium Gel 100 Gm Tube) 2 gm TOPICAL QID PRN; Protocol PRN Reason: Pain Diltiazem HCl (Diltiazem Oral 30 Mg Tab) 30 mg PO TID [facility] Last Admin: 11/30/22 08:11 Dose: 30 mg Fluoxetine HCl (Fluoxetine Hcl 20 Mg Cap) 20 mg PO DAILY [facility] Last Admin: 11/30/22 08:11 Dose: 20 mg Folic Acid (Folic Acid 1 Mg Tab) 0.5 mg PO DAILY [facility] Last Admin: 11/30/22 08:11 Dose: 0.5 mg Furosemide (Furosemide 40 Mg Tab) 40 mg PO DAILY [facility] Last Admin: 11/30/22 08:10 Dose: 40 mg Furosemide (Furosemide 10 Mg/Ml 4 Ml Vial) 40 mg IV ONCE PRN PRN Reason: Edema Insulin Aspart (Insulin Aspart (Novolog) 100 Unit/Ml Vial) 0 unit SQ ACHS [facility]; Protocol Last Admin: 11/30/22 13:46 Dose: Not Given Insulin Detemir (Insulin Detemir (Levemir) 100 Unit/Ml Syr) 10 unit SQ DAILY@0700 [facility] Last Admin: 11/30/22 08:12 Dose: 10 unit Iopamidol (Iopamidol Contrast (Oral Use) Vial) 30 ml PO Q60M PRN PRN Reason: CT Scan Stop: 12/01/22 14:01 Levothyroxine Sodium (Levothyroxine 50 Mcg Tab) 50 mcg PO DAILY@0630 [facility] Last Admin: 11/30/22 06:35 Dose: 50 mcg Loperamide HCl (Loperamide 2 Mg Cap) 2 mg PO QID PRN PRN Reason: Diarrhea Last Admin: 11/12/22 09:47 Dose: 2 mg Magnesium Oxide (Magnesium Oxide 400 Mg Tab) 400 mg PO DAILY [facility] Last Admin: 11/30/22 08:11 Dose: 400 mg Melatonin (Melatonin 3 Mg Tablet) 3 mg PO HS [facility] Last Admin: 11/29/22 20:50 Dose: 3 mg Miscellaneous Information (Magnesium Replacement Protocol 1 Each Misc) 1 each MISCELLANE DAILY PRN; Protocol PRN Reason: Per Protocol Naloxone HCl (Naloxone 0.4 Mg/Ml 1 Ml Vial) 0.2 mg IV Q2M PRN PRN Reason: Opioid Reversal Pantoprazole Sodium (Pantoprazole 40 Mg/10 Ml Vial) 40 mg IVP BID [facility] Last Admin: 11/30/22 08:11 Dose: 40 mg Pyridoxine HCl (Pyridoxine 50 Mg Tab) 50 mg PO DAILY [facility] Last Admin: 11/30/22 08:11 Dose: 50 mg Sodium Bicarbonate (Sodium Bicarbonate Tab 650 Mg Tab) 1,300 mg PO TID [facility] Last Admin: 11/30/22 08:11 Dose: 1,300 mg Tamsulosin HCl (Tamsulosin 0.4 Mg Cap.Er.24h) 0.4 mg PO PC-SUPPER [facility] Last Admin: 11/29/22 17:09 Dose: 0.4 mg Thiamine HCl (Thiamine 100 Mg Tab) 100 mg PO DAILY [facility] Last Admin: 11/30/22 08:11 Dose: 100 mg Physical exam: Gen: This is a 62-year-old male awake, alert and oriented 3, well-developed, well-nourished, ill-appearing. Pale HEENT: Head is atraumatic, normocephalic. Pupils equal, round. Sclerae is anicteric. NECK: Supple. No JVD. No lymphadenopathy. No thyromegaly. LUNGS: Breath sounds diminished bilaterally with some scattered rhonchi noted. No intercostal retractions. HEART: S1, S2 are muffled, irregular ABDOMEN: Soft. Mildly tender on palpation. Bowel sounds are present. No masses. EXTREMITIES: No pedal edema. No calf tenderness. Lower extremity edema NEUROLOGICAL: Patient is awake, alert and oriented x3. Cranial nerves 2 through 12 are grossly intact. Diffusely weak Assessment: Acute blood loss. hb 5.9 due to retroperitoneal bleed with hematoma. Hyperkalemia due to GI bleed. Improved Bilateral Pneumonia with superimposed gram-negative bacterial infection is suspected mainly in the right lower lobe. Completed antibiotic course. Recent COVID-19 infection with pneumonia Acute hypoxic respiratory failure. Titrate down to room air.. Sepsis secondary to above Possible discitis as per MRI cervical spine. Hyperkalemia due to urinary retention and acute kidney injury. Improving now. Anemia with vitamin B12 deficiency and currently on IM B12 replacement therapy Elevated troponin, most likely type II. 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 Patient had IVC filter placement by vascular surgery on 11/25/2022 and anticoagulation on hold. Hemoglobin noted to drop today to 5.5 with dark black stools and will transfuse 2 units of PRBCs. Vascular surgery reconsulted concerns for peritoneal bleeding given the drop in hemoglobin and will also reconsult GI as we have services starting 12/01/2022. Stat CT angiogram ordered of the abdomen and pelvis to assess for bleeding and pending at this time. Will await report and discuss further with vascular if patient is requiring some form of embolization as our interventional radiology is as not perform that here and will need transfer to tertiary treatment center. General surgery is following as well and appreciate input and recommendations. Orthopedics following and have canceled plans for cervical intervention until medically stable, will likely be outpatient, orthopedics weaning dexamethasone Nephrology following and Jo catheter was discontinued and maintained on Floma x. Recommend monitoring for retention Patient is being closely monitored off IV antibiotic therapy WBC remains elevated with infectious disease following inflammatory markers orderedAnd not elevated, pro-calcitonin is 0.12. Recommend continue current medications and management with multiple medical consultations following Recommend repeat labs status post transfusion this evening and will continue to monitor closely and transfuse if less than 7 for symptomatic anemia Due to multiple complex medical issues, prognosis is extremely guarded The impression and plan of care has been dictated by Priscilla Steven, Nurse Practitioner as directed. MD Nuvia I have performed a history and examination and MDM of this patient, discussed the same with the dictator, and agree with the dictator's assessment and plan as written ,documented as a scribe. Based on total visit time, I have performed more than 50% of the visit. Objective - Vital Signs Vital signs: Vital Signs Temp 97.7 F 11/30/22 13:42 Pulse 70 11/30/22 13:42 Resp 16 11/30/22 13:42 BP 113/78 11/30/22 13:42 Pulse Ox 100 11/30/22 13:42 FiO2 Intake & Output 11/29/22 11/30/22 11/30/22 18:59 06:59 18:59 Intake Total 236 Output Total 1000 1000 250 Balance -1000 -1000 -14 Intake: Oral 236 Blood Product 0 Unit 0 Output: Urine 1000 1000 250 Other: Voiding Method External Catheter External Catheter # Bowel Movements 1 2 - Labs CBC & Chem 7: 11/30/22 05:19 11/30/22 05:19 Labs: Abnormal Lab Results - Last 24 Hours (Table) 11/29/22 11/29/22 11/30/22 Range/Units 17:06 20:34 05:19 WBC (4.50-10.00) X 10*3/uL RBC (4.40-5.60) X 10*6/uL Hgb (13.0-17.0) g/dL Hct (39.6-50.0) % MCV (80.0-97.0) fL MCHC (32.0-37.0) g/dL RDW (11.5-14.5) % Plt Count (140-440) X 10*3/uL Plt Count Comment Immature Gran # (0.00-0.04) X 10*3/uL Neutrophils # (1.80-7.70) X 10*3/uL Eosinophils # (0.04-0.35) X 10*3/uL Anion Gap (10.00-18.00) mmol/L BUN (9.0-27.0) mg/dL BUN/Creatinine Ratio (12.00-20.00) Ratio Glucose (70-110) mg/dL POC Glucose (mg/dL) 199 H 234 H (70-110) mg/dL Calcium (8.7-10.3) mg/dL Total Protein (6.2-8.2) g/dL Albumin (3.8-4.9) g/dL Globulin (1.6-3.3) g/dL Albumin/Globulin Ratio (1.60-3.17) g/dL Procalcitonin 0.12 H (0.02-0.09) ng/mL Crossmatch 11/30/22 11/30/22 11/30/22 Range/Units 05:19 05:19 07:20 WBC 24.59 H (4.50-10.00) X 10*3/uL RBC 1.80 L (4.40-5.60) X 10*6/uL Hgb 5.5 L* (13.0-17.0) g/dL Hct 17.6 L* (39.6-50.0) % MCV 97.8 H (80.0-97.0) fL MCHC 31.3 L (32.0-37.0) g/dL RDW 20.8 H (11.5-14.5) % Plt Count 125 L (140-440) X 10*3/uL Plt Count Comment DECREASED A Immature Gran # 0.39 H (0.00-0.04) X 10*3/uL Neutrophils # 21.98 H (1.80-7.70) X 10*3/uL Eosinophils # 0 L (0.04-0.35) X 10*3/uL Anion Gap 8.00 L (10.00-18.00) mmol/L BUN 49.8 H (9.0-27.0) mg/dL BUN/Creatinine Ratio 41.50 H (12.00-20.00) Ratio Glucose 126 H (70-110) mg/dL POC Glucose (mg/dL) 146 H (70-110) mg/dL Calcium 7.5 L (8.7-10.3) mg/dL Total Protein 3.8 L (6.2-8.2) g/dL Albumin 2.3 L (3.8-4.9) g/dL Globulin 1.5 L (1.6-3.3) g/dL Albumin/Globulin Ratio 1.53 L (1.60-3.17) g/dL Procalcitonin (0.02-0.09) ng/mL Crossmatch 11/30/22 11/30/22 Range/Units 11:40 12:14 WBC (4.50-10.00) X 10*3/uL RBC (4.40-5.60) X 10*6/uL Hgb (13.0-17.0) g/dL Hct (39.6-50.0) % MCV (80.0-97.0) fL MCHC (32.0-37.0) g/dL RDW (11.5-14.5) % Plt Count (140-440) X 10*3/uL Plt Count Comment Immature Gran # (0.00-0.04) X 10*3/uL Neutrophils # (1.80-7.70) X 10*3/uL Eosinophils # (0.04-0.35) X 10*3/uL Anion Gap (10.00-18.00) mmol/L BUN (9.0-27.0) mg/dL BUN/Creatinine Ratio (12.00-20.00) Ratio Glucose (70-110) mg/dL POC Glucose (mg/dL) 185 H (70-110) mg/dL Calcium (8.7-10.3) mg/dL Total Protein (6.2-8.2) g/dL Albumin (3.8-4.9) g/dL Globulin (1.6-3.3) g/dL Albumin/Globulin Ratio (1.60-3.17) g/dL Procalcitonin (0.02-0.09) ng/mL Crossmatch See Detail
--- NOTE | 2022-11-30 15:46 | CT ---
EXAMINATION TYPE: CT angio abdomen pelvis DATE OF EXAM: 11/30/2022 COMPARISON: CT abdomen and pelvis one week ago. HISTORY: Retroperitoneal hematoma, drop in hemoglobin to 5 CT DLP: 2574.9 mGycm, Automated Exposure Control for Dose Reduction was Utilized. CONTRAST: CTA scan of the abdomen and pelvis is performed without oral and without and with IV Contrast, patien t injected with 100cc mL of Isovue 370. Three-D reconstructed images are created on an independent wo rkstation and reviewed. FINDINGS: VASCULAR: Patent celiac artery and SMA without significant stenosis. Patent bilateral single renal ar teries and patent LI. No significant plaque or stenosis in the abdominal aorta. Imaging through the femoral arteries shows no significant plaque or stenosis. Imaging extends through the femoral artery bifurcation into the proximal SFAs without significant plaque or stenosis. No linear hypodensity to s uggest dissection. LUNG BASES: Small to tiny left pleural effusion decreased in size from prior. Associated compressive atelectasis is redemonstrated. Small to tiny anterior-inferior pericardial effusion grossly stable. T here are oval hypodense lesions in the bilateral breasts axial image 43 series 8 and image 57 on the right again seen of uncertain etiology unchanged from prior study LIVER/GB: Cholecystectomy clips are redemonstrated. PANCREAS: No significant abnormality is seen. SPLEEN: No significant abnormality is seen. ADRENALS: No significant abnormality is seen. KIDNEYS: Central thin-walled parapelvic cysts in both kidneys are again seen. Cortical thinning in matt th kidneys redemonstrated. Interval removal of Jo catheter. Fully distended bladder with wall thic kness upper limits of normal. Adjacent pelvic phleboliths redemonstrated. BOWEL: Surgical changes from gastric bypass surgery in the epigastric region are redemonstrated. No s uspicious small or large bowel dilatation. PROSTATE/SEMINAL VESICLES: No gross abnormality seen. LYMPH NODES: No greater than 1cm abdominal or pelvic lymph nodes are appreciated. OSSEOUS STRUCTURES: Underlying scoliosis with multilevel spurring in the spine is redemonstrated. Logan gical change to the right proximal femur through healed fracture again seen. Heterotopic ossification superiorly redemonstrated. OTHER: Surgical changes from attempted ventral wall hernia repair surgery again seen. Recurrent ventr al wall hernia axial image 165 is redemonstrated. Severe diffuse soft tissue anasarca again seen. Left sided retroperitoneal fluid collection measures 8.8 x 5.3 cm current study axial image 182 diminished in size from prior study. Collection posterior and inferior to this over the iliopsoas muscle axial image 191 measures 5.5 x 2.7 cm it is diminished in size from prior study. No new focal fluid collections identified. There is new infrarenal IVC filter noted. IMPRESSION: The 2 known left-sided retroperitoneal fluid collections or hematomas are decreased in si ze from one week earlier. No new suspicious focal fluid collection or hematoma noted. Severe diffuse soft tissue anasarca remains present similar to prior.
[2022-11-30 16:47] LABS: Glucose,Whole Blood 167 mg/dL (70-110)
[2022-11-30] MEDS: TAMSULOSIN 0.4 MG CAP.ER.24H PO SCH (17:10)
[2022-11-30 20:59] LABS: Glucose,Whole Blood 242 mg/dL (70-110)
[2022-11-30] MEDS: MELATONIN 3 MG TABLET PO SCH (21:01)
--- NOTE | 2022-11-30 21:50 | P.PN ---
Subjective Progress Note Date: 11/30/22 Patient hemoglobin declined to 5.5. Repeat CT of the abdomen and pelvis demonstrates decrease of retroperitoneal hematoma. Patient has occult positive stool for new source of bleed she have bleed. Patient evaluated by GI team for possible upper and lower endoscopy as he is due. No additional surgical intervention at this time. Objective - Vital Signs Vital signs: Vital Signs Temp 97.7 F 11/30/22 16:32 Pulse 72 11/30/22 18:01 Resp 16 11/30/22 18:01 BP 103/68 11/30/22 18:01 Pulse Ox 99 11/30/22 18:01 FiO2 Intake & Output 11/30/22 11/30/22 12/01/22 06:59 18:59 06:59 Intake Total 1096 Output Total 1000 550 Balance -1000 546 Intake: Oral 476 Blood Product 620 Rc As-1 Unit 310 [id number] Rc Irr As1 Unit 310 [id number] Output: Urine 1000 550 Other: Voiding Method External Catheter # Bowel Movements 2 1 - Labs CBC & Chem 7: 11/30/22 05:19 11/30/22 05:19 Labs: Abnormal Lab Results - Last 24 Hours (Table) 11/30/22 11/30/22 11/30/22 Range/Units 05:19 05:19 05:19 WBC 24.59 H (4.50-10.00) X 10*3/uL RBC 1.80 L (4.40-5.60) X 10*6/uL Hgb 5.5 L* (13.0-17.0) g/dL Hct 17.6 L* (39.6-50.0) % MCV 97.8 H (80.0-97.0) fL MCHC 31.3 L (32.0-37.0) g/dL RDW 20.8 H (11.5-14.5) % Plt Count 125 L (140-440) X 10*3/uL Plt Count Comment DECREASED A Immature Gran # 0.39 H (0.00-0.04) X 10*3/uL Neutrophils # 21.98 H (1.80-7.70) X 10*3/uL Eosinophils # 0 L (0.04-0.35) X 10*3/uL Anion Gap 8.00 L (10.00-18.00) mmol/L BUN 49.8 H (9.0-27.0) mg/dL BUN/Creatinine Ratio 41.50 H (12.00-20.00) Ratio Glucose 126 H (70-110) mg/dL POC Glucose (mg/dL) (70-110) mg/dL Calcium 7.5 L (8.7-10.3) mg/dL Total Protein 3.8 L (6.2-8.2) g/dL Albumin 2.3 L (3.8-4.9) g/dL Globulin 1.5 L (1.6-3.3) g/dL Albumin/Globulin Ratio 1.53 L (1.60-3.17) g/dL Procalcitonin 0.12 H (0.02-0.09) ng/mL Crossmatch 11/30/22 11/30/22 11/30/22 Range/Units 07:20 11:40 12:14 WBC (4.50-10.00) X 10*3/uL RBC (4.40-5.60) X 10*6/uL Hgb (13.0-17.0) g/dL Hct (39.6-50.0) % MCV (80.0-97.0) fL MCHC (32.0-37.0) g/dL RDW (11.5-14.5) % Plt Count (140-440) X 10*3/uL Plt Count Comment Immature Gran # (0.00-0.04) X 10*3/uL Neutrophils # (1.80-7.70) X 10*3/uL Eosinophils # (0.04-0.35) X 10*3/uL Anion Gap (10.00-18.00) mmol/L BUN (9.0-27.0) mg/dL BUN/Creatinine Ratio (12.00-20.00) Ratio Glucose (70-110) mg/dL POC Glucose (mg/dL) 146 H 185 H (70-110) mg/dL Calcium (8.7-10.3) mg/dL Total Protein (6.2-8.2) g/dL Albumin (3.8-4.9) g/dL Globulin (1.6-3.3) g/dL Albumin/Globulin Ratio (1.60-3.17) g/dL Procalcitonin (0.02-0.09) ng/mL Crossmatch See Detail 11/30/22 11/30/22 Range/Units 16:46 20:57 WBC (4.50-10.00) X 10*3/uL RBC (4.40-5.60) X 10*6/uL Hgb (13.0-17.0) g/dL Hct (39.6-50.0) % MCV (80.0-97.0) fL MCHC (32.0-37.0) g/dL RDW (11.5-14.5) % Plt Count (140-440) X 10*3/uL Plt Count Comment Immature Gran # (0.00-0.04) X 10*3/uL Neutrophils # (1.80-7.70) X 10*3/uL Eosinophils # (0.04-0.35) X 10*3/uL Anion Gap (10.00-18.00) mmol/L BUN (9.0-27.0) mg/dL BUN/Creatinine Ratio (12.00-20.00) Ratio Glucose (70-110) mg/dL POC Glucose (mg/dL) 167 H 242 H (70-110) mg/dL Calcium (8.7-10.3) mg/dL Total Protein (6.2-8.2) g/dL Albumin (3.8-4.9) g/dL Globulin (1.6-3.3) g/dL Albumin/Globulin Ratio (1.60-3.17) g/dL Procalcitonin (0.02-0.09) ng/mL Crossmatch
[2022-12-01] MEDS: DEXAMETHASONE SOD PHOSPHATE 4 MG/ML 1 ML VIAL IVP SCH ×3 (00:23→16:18)
[2022-12-01] MEDS: LEVOTHYROXINE 50 MCG TAB PO SCH (05:55)
[2022-12-01 07:26] LABS: Glucose,Whole Blood 139 mg/dL (70-110)
--- NOTE | 2022-12-01 07:32 | P.PN ---
Progress Note - Text Progress Note Date: 12/01/22 Our services will be signing off at this time. Patient is not medically stable for surgery. Appreciate consult, Please feel free to contact our services when patient becomes stable for surgical intervention.
[2022-12-01 09:16] LABS: Anisocytosis Slight; HCT 22.7 % (39.0-53.0); HGB 7.7 gm/dL (13.0-17.5); Hypochromasia Slight; MCH 31.7 pg (25.0-35.0); MCHC 33.7 g/dL (31.0-37.0); MCV 93.9 fL (80.0-100.0); Macrocytosis Slight; Mean Platelet Volume 9.4; Platelet Count 101 k/uL (150-450); Poikilocytosis Slight; RBC 2.42 m/uL (4.30-5.90); RDW 19.1 % (11.5-15.5); WBC 18.2 k/uL (3.8-10.6)
--- NOTE | 2022-12-01 09:27 | P.PN ---
Subjective Progress Note Date: 12/01/22 Principal diagnosis: Anemia, retroperitoneal hematoma left iliac muscle hematoma Patient seen and examined today as a follow-up for concerns for anemia, with primary medicine team concern for previous large intramuscular hematoma of the left iliac muscle and retroperitoneal hematoma bleed. Patient underwent a CT angiogram of the abdomen and pelvis that reports no active bleeding, with the left-sided retroperitoneal fluid collection or hematoma decreased in size from week earlier. Repeat labs from today show hemoglobin stable at 7.7. Patient denies any abdominal pain nausea or vomiting. Stool occult blood positive. Gastroenterology on consult. Objective - Vital Signs Vital signs: Vital Signs Temp 98.0 F 12/01/22 02:55 Pulse 65 12/01/22 02:55 Resp 17 12/01/22 02:55 BP 102/68 12/01/22 02:55 Pulse Ox 100 12/01/22 02:55 FiO2 Intake & Output 11/30/22 12/01/22 12/01/22 18:59 06:59 18:59 Intake Total 1096 Output Total 550 1400 Balance 546 -1400 Intake: Oral 476 Blood Product 620 Rc As-1 Unit 310 [id number] Rc Irr As1 Unit 310 [id number] Output: Urine 550 1400 Other: Voiding Method External Catheter External Catheter # Bowel Movements 1 1 - Exam General appearance: The patient is alert, oriented, appears in no acute distress. HET: Head is normocephalic and atraumatic. Conjunctiva pink. Sclera anicteric. Neck: Supple without lymphadenopathy. Abdomen: Soft, nontender, nondistended with bowel sounds. No guarding or rigidity. Extremities: Normal skin color and turgor. Bilateral upper and lower extremity edema, generalized anasarca. Skin: No rashes, no jaundice Neurological: Alert and oriented. - Labs CBC & Chem 7: 12/01/22 08:43 11/30/22 05:19 Labs: Abnormal Lab Results - Last 24 Hours (Table) 11/30/22 11/30/22 11/30/22 Range/Units 05:19 05:19 05:19 WBC 24.59 H (4.50-10.00) X 10*3/uL RBC 1.80 L (4.40-5.60) X 10*6/uL Hgb 5.5 L* (13.0-17.0) g/dL Hct 17.6 L* (39.6-50.0) % MCV 97.8 H (80.0-97.0) fL MCHC 31.3 L (32.0-37.0) g/dL RDW 20.8 H (11.5-14.5) % Plt Count 125 L (140-440) X 10*3/uL Plt Count Comment DECREASED A Immature Gran # 0.39 H (0.00-0.04) X 10*3/uL Neutrophils # 21.98 H (1.80-7.70) X 10*3/uL Eosinophils # 0 L (0.04-0.35) X 10*3/uL Anion Gap 8.00 L (10.00-18.00) mmol/L BUN 49.8 H (9.0-27.0) mg/dL BUN/Creatinine Ratio 41.50 H (12.00-20.00) Ratio Glucose 126 H (70-110) mg/dL POC Glucose (mg/dL) (70-110) mg/dL Calcium 7.5 L (8.7-10.3) mg/dL Total Protein 3.8 L (6.2-8.2) g/dL Albumin 2.3 L (3.8-4.9) g/dL Globulin 1.5 L (1.6-3.3) g/dL Albumin/Globulin Ratio 1.53 L (1.60-3.17) g/dL Procalcitonin 0.12 H (0.02-0.09) ng/mL Crossmatch 11/30/22 11/30/22 11/30/22 Range/Units 11:40 12:14 16:46 WBC (4.50-10.00) X 10*3/uL RBC (4.40-5.60) X 10*6/uL Hgb (13.0-17.0) g/dL Hct (39.6-50.0) % MCV (80.0-97.0) fL MCHC (32.0-37.0) g/dL RDW (11.5-14.5) % Plt Count (140-440) X 10*3/uL Plt Count Comment Immature Gran # (0.00-0.04) X 10*3/uL Neutrophils # (1.80-7.70) X 10*3/uL Eosinophils # (0.04-0.35) X 10*3/uL Anion Gap (10.00-18.00) mmol/L BUN (9.0-27.0) mg/dL BUN/Creatinine Ratio (12.00-20.00) Ratio Glucose (70-110) mg/dL POC Glucose (mg/dL) 185 H 167 H (70-110) mg/dL Calcium (8.7-10.3) mg/dL Total Protein (6.2-8.2) g/dL Albumin (3.8-4.9) g/dL Globulin (1.6-3.3) g/dL Albumin/Globulin Ratio (1.60-3.17) g/dL Procalcitonin (0.02-0.09) ng/mL Crossmatch See Detail 11/30/22 12/01/22 Range/Units 20:57 07:25 WBC (4.50-10.00) X 10*3/uL RBC (4.40-5.60) X 10*6/uL Hgb (13.0-17.0) g/dL Hct (39.6-50.0) % MCV (80.0-97.0) fL MCHC (32.0-37.0) g/dL RDW (11.5-14.5) % Plt Count (140-440) X 10*3/uL Plt Count Comment Immature Gran # (0.00-0.04) X 10*3/uL Neutrophils # (1.80-7.70) X 10*3/uL Eosinophils # (0.04-0.35) X 10*3/uL Anion Gap (10.00-18.00) mmol/L BUN (9.0-27.0) mg/dL BUN/Creatinine Ratio (12.00-20.00) Ratio Glucose (70-110) mg/dL POC Glucose (mg/dL) 242 H 139 H (70-110) mg/dL Calcium (8.7-10.3) mg/dL Total Protein (6.2-8.2) g/dL Albumin (3.8-4.9) g/dL Globulin (1.6-3.3) g/dL Albumin/Globulin Ratio (1.60-3.17) g/dL Procalcitonin (0.02-0.09) ng/mL Crossmatch Assessment and Plan Assessment: 1. Large intramuscular hematoma left iliac muscle, retroperitoneal hematoma with no active bleeding 2. Acute blood loss anemia 3. Acute on chronic deep venous thrombosis left proximal calf vein 4. COVID-19 positive Plan: 1. Stat CT angiogram abdomen and pelvis ordered and reviewed, no active bleed 2. Daily CBC, transfuse for hemoglobin less than 7 3. Gastroenterology on consult for possible GI bleed 4. Continue medical management 5. Thank you for this consultation, there is no indication for any vascular surgical intervention. We will sign off at this time. The impression and plan of care has been dictated as directed. Dr. Jo I performed a history and examination of this patient, discussed the same with the dictator. I agree with the dictator's note ,documented as a scribe. Any additional findings or plans will be noted.
[2022-12-01] MEDS: INSULIN ASPART (NovoLOG) 100 UNIT/ML VIAL SQ SCH ×4 (09:29→21:51)
[2022-12-01] MEDS: INSULIN DETEMIR (LEVEMIR) 100 UNIT/ML SYR SQ SCH (09:44)
[2022-12-01] MEDS: PANTOPRAZOLE 40 MG/10 ML VIAL IVP SCH ×2 (09:44→21:52)
[2022-12-01] MEDS: CHOLECALCIFEROL 25 MCG (1000 IU) TABLET PO SCH (09:44)
[2022-12-01] MEDS: CALCIUM CARBONATE 500 MG CHEWABLE PO SCH ×3 (09:45→21:52)
[2022-12-01] MEDS: ASCORBIC ACID 500 MG TAB PO SCH ×2 (09:45→21:52)
[2022-12-01] MEDS: FUROSEMIDE 40 MG TAB PO SCH (09:45)
[2022-12-01] MEDS: CYANOCOBALAMIN 500 MCG TAB PO SCH (09:45)
[2022-12-01] MEDS: FOLIC ACID 1 MG TAB PO SCH (09:45)
[2022-12-01] MEDS: FLUoxetine HCL 20 MG CAP PO SCH (09:45)
[2022-12-01] MEDS: MAGNESIUM OXIDE 400 MG TAB PO SCH (09:45)
[2022-12-01] MEDS: THIAMINE 100 MG TAB PO SCH (09:45)
[2022-12-01] MEDS: CHOLESTYRAMINE (WITH SUGAR) 4 GM PACKET PO SCH ×2 (09:46→17:58)
[2022-12-01] MEDS: PYRIDOXINE 50 MG TAB PO SCH (09:46)
[2022-12-01] MEDS: SODIUM BICARBONATE TAB 650 MG TAB PO SCH ×3 (09:46→21:52)
[2022-12-01] MEDS: DILTIAZEM ORAL 30 MG TAB PO SCH ×3 (09:46→21:52)
--- NOTE | 2022-12-01 10:01 | P.CONS ---
History of Present Illness - Reason for Consult Consult date: 12/01/22 Anemia, GI bleed Requesting physician: Priscilla Maurizio - Chief Complaint Diarrhea, Covid 19 - History of Present Illness 62-year-old gentleman who initially presented to the hospital secondary to diarrhea and found to be covid positive. Gastroenterology was initially cons ulted at that time for diarrhea and anemia. Diarrhea had been improving, and there was no reported black stool or blood in his stool at that time. Hematology was consulted for anemia believed secondary to virus. He then developed weakness in all 4 extremities and was being evaluated by orthospine and was scheduled to have surgical intervention first on his cervical spine then lumbar spine later in the week. He does have a history of DVT and has been on IV heparin for his clots with the plan of stopping heparin for the surgery. Last week he was noted to have a drop in his hemoglobin and complains of some abdominal discomfort and ultimately underwent a CT angiogram that demonstrated a large intramuscular hematoma in the left iliac is muscle in the retroperitoneum. Due to this large retroperitoneal hematoma as well as his DVT vascular surgery was consulted for IVC filter placement that patient underwent on 11/25/2022. His hemoglobin had stabilized however yesterday he had a drop in his hemoglobin to 5.5. Nursing reported loose black bowel movements yesterday and today. Has bruising along his left flank has not increased in size. He has no palpable hematoma in the abdomen or flank. Hs currently receiving 2 units of blood. He denies any shortness of breath, chest pain, abdominal pain, nausea or vomiting. Denies any fevers chills or body aches. Still has weakness in his upper and lower extremities. Orthospine still following patient closely. Vascular surgery had been also very consulted for concern for possibility of bleed from retroperitoneal and left iliac muscle hematoma. CT angiogram of the abdomen completed that showed no active bleed and actual improvement in the hematoma. Patient had positive occult stool. He currently denies any abdominal pain nausea or vomiting. Has still had some black stools. He received 2 units of blood yesterday with a repeat hemoglobin today of 7.7. Patient is actually scheduled for outpatient colonoscopy on 12/08/[address] Lundberg. Labs WBC 18.2 hemoglobin 7.7 hematocrit 22.7 platelet count 101,000 Review of Systems REVIEW OF SYSTEMS: CARDIOPULMONARY: No chest pain or shortness of breath. Gastrointestinal: No abdominal pain or epigastric pain. No nausea or vomiting. No hematemesis, coffee-ground emesis. Loose stools, black. GENITOURINARY: No dysuria or hematuria. MUSCULOSKELETAL: Reports normal range of motion. Muscle weakness upper and lower extremities. Left iliac muscle image,, retroperitoneal hematoma. SKIN: No rashes. No jaundice. ENDOCRINE: No chills, fevers. No excessive weight gain or loss. No polydipsia or polyuria. PSYCHIATRIC: Unremarkable. NEUROLOGY: No change in mental status. Denies dizziness, headache. Muscle weakness upper and lower extremities. ENT: Vision unremarkable. CONSTITUTIONAL: No recent weight loss. No fever, chills, night sweats. Past Medical History Past Medical History: Sleep Apnea/CPAP/BIPAP, Thyroid Disorder Additional Past Medical History / Comment(s): thyroid issue. pt reports not using CPAP/BIPAP at HS History of Any Multi-Drug Resistant Organisms: None Reported Additional Past Surgical History / Comment(s): gastric bypass. Umbilical hernia, 6x hernia surgeries, fell & broke hip in 2019 - pt was in [facility] at the time and reports getting a pin in hip. Past Anesthesia/Blood Transfusion Reactions: No Reported Reaction Past Psychological History: Depression Smoking Status: Never smoker Past Alcohol Use History: Occasional Additional Past Alcohol Use History / Comment(s): Patient reports moving to [place] in April 2022 and cutting back on alcohol us. Prior to moving to [place], pt reports drinking one 5th of whiskey a day, but only drinks occasionally now. Pt reports to RN that he drank one 5th of whiskey last Wednesday. Past Drug Use History: None Reported Medications and Allergies Home Medications Medication Instructions Recorded Confirmed Type Calcium Carbonate [Calcium] 600 mg PO DAILY 09/09/22 11/06/22 History Ergocalciferol (Vitamin D2) 1,250 mcg PO MOWE 09/09/22 11/06/22 History [Drisdol (50,000 Iu)] FLUoxetine HCL [PROzac] 20 mg PO DAILY 09/09/22 11/06/22 History Levothyroxine Sodium [Synthroid] 50 mcg PO DAILY 09/09/22 11/06/22 History Magnesium Oxide [Magnesium] 500 mg PO DAILY 09/09/22 11/06/22 History Diclofenac Sodium Gel [Voltaren 2 gm TOPICAL QID PRN 11/06/22 11/06/22 History Gel] Folic Acid 0.4 mg PO DAILY 11/06/22 11/06/22 History Ibuprofen [Motrin] 600 mg PO TID PRN 11/06/22 11/06/22 History Thiamine [Vitamin B-1] 100 mg PO DAILY 11/06/22 11/06/22 History Fondaparinux [Arixtra] 10 mg SQ DAILY #30 each 11/19/22 Rx Allergies Allergy/AdvReac Type Severity Reaction Status Date / Time No Known Allergies Allergy Verified 11/06/22 14:38 Physical Exam Vitals: Vital Signs Temp Pulse Pulse Pulse Resp BP BP 12/01/22 02:55 98.0 F 65 17 11/30/22 19:19 97.3 F L 66 17 11/30/22 18:01 72 16 103/68 11/30/22 16:52 69 16 99/65 11/30/22 16:32 97.7 F 65 16 106/65 11/30/22 16:08 64 16 101/70 11/30/22 14:02 70 16 105/73 11/30/22 13:42 97.7 F 70 16 113/78 11/30/22 13:32 97.9 F 61 16 112/75 11/30/22 11:03 98.7 F 76 16 106/71 BP Pulse Ox 12/01/22 02:55 102/68 100 11/30/22 19:19 109/71 99 11/30/22 18:01 99 11/30/22 16:52 11/30/22 16:32 99 11/30/22 16:08 99 11/30/22 14:02 99 11/30/22 13:42 100 11/30/22 13:32 95 11/30/22 11:03 100 Intake and Output 11/30/22 12/01/22 12/01/22 22:59 06:59 14:59 Intake Total 860 Output Total 300 1400 Balance 560 -1400 Intake: Oral 240 Blood Product 620 Rc As-1 Unit 310 [id number] Rc Irr As1 Unit 310 [id number] Output: Urine 300 1400 Other: Voiding Method External Catheter # Bowel Movements 1 1 General appearance: The patient is alert, oriented, appears in no acute distress. HET: Head is normocephalic and atraumatic. Conjunctiva pink. Sclera anicteric. Neck: Supple without lymphadenopathy. Trachea midline. Heart: S1 S2. Regular rate and rhythm. Lungs: Clear to auscultation. Abdomen: Soft, nontender, generalized anasarca, nondistended with bowel sounds. No guarding or rigidity. Skin: No rashes. No jaundice. Extremities: Normal skin color and turgor. Bilateral lower extremity edema. Neurological: No focal deficits. Alert and oriented x3. Results CBC & Chem 7: 12/01/22 08:43 11/30/22 05:19 Labs: Abnormal Lab Results - Last 24 Hours (Table) 11/30/22 11/30/22 11/30/22 Range/Units 05:19 05:19 05:19 WBC 24.59 H (4.50-10.00) X 10*3/uL RBC 1.80 L (4.40-5.60) X 10*6/uL Hgb 5.5 L* (13.0-17.0) g/dL Hct 17.6 L* (39.6-50.0) % MCV 97.8 H (80.0-97.0) fL MCHC 31.3 L (32.0-37.0) g/dL RDW 20.8 H (11.5-14.5) % Plt Count 125 L (140-440) X 10*3/uL Plt Count Comment DECREASED A Immature Gran # 0.39 H (0.00-0.04) X 10*3/uL Neutrophils # 21.98 H (1.80-7.70) X 10*3/uL Eosinophils # 0 L (0.04-0.35) X 10*3/uL Anion Gap 8.00 L (10.00-18.00) mmol/L BUN 49.8 H (9.0-27.0) mg/dL BUN/Creatinine Ratio 41.50 H (12.00-20.00) Ratio Glucose 126 H (70-110) mg/dL POC Glucose (mg/dL) (70-110) mg/dL Calcium 7.5 L (8.7-10.3) mg/dL Total Protein 3.8 L (6.2-8.2) g/dL Albumin 2.3 L (3.8-4.9) g/dL Globulin 1.5 L (1.6-3.3) g/dL Albumin/Globulin Ratio 1.53 L (1.60-3.17) g/dL Procalcitonin 0.12 H (0.02-0.09) ng/mL Crossmatch 11/30/22 11/30/22 11/30/22 Range/Units 11:40 12:14 16:46 WBC (4.50-10.00) X 10*3/uL RBC (4.40-5.60) X 10*6/uL Hgb (13.0-17.0) g/dL Hct (39.6-50.0) % MCV (80.0-97.0) fL MCHC (32.0-37.0) g/dL RDW (11.5-14.5) % Plt Count (140-440) X 10*3/uL Plt Count Comment Immature Gran # (0.00-0.04) X 10*3/uL Neutrophils # (1.80-7.70) X 10*3/uL Eosinophils # (0.04-0.35) X 10*3/uL Anion Gap (10.00-18.00) mmol/L BUN (9.0-27.0) mg/dL BUN/Creatinine Ratio (12.00-20.00) Ratio Glucose (70-110) mg/dL POC Glucose (mg/dL) 185 H 167 H (70-110) mg/dL Calcium (8.7-10.3) mg/dL Total Protein (6.2-8.2) g/dL Albumin (3.8-4.9) g/dL Globulin (1.6-3.3) g/dL Albumin/Globulin Ratio (1.60-3.17) g/dL Procalcitonin (0.02-0.09) ng/mL Crossmatch See Detail 11/30/22 12/01/22 Range/Units 20:57 07:25 WBC (4.50-10.00) X 10*3/uL RBC (4.40-5.60) X 10*6/uL Hgb (13.0-17.0) g/dL Hct (39.6-50.0) % MCV (80.0-97.0) fL MCHC (32.0-37.0) g/dL RDW (11.5-14.5) % Plt Count (140-440) X 10*3/uL Plt Count Comment Immature Gran # (0.00-0.04) X 10*3/uL Neutrophils # (1.80-7.70) X 10*3/uL Eosinophils # (0.04-0.35) X 10*3/uL Anion Gap (10.00-18.00) mmol/L BUN (9.0-27.0) mg/dL BUN/Creatinine Ratio (12.00-20.00) Ratio Glucose (70-110) mg/dL POC Glucose (mg/dL) 242 H 139 H (70-110) mg/dL Calcium (8.7-10.3) mg/dL Total Protein (6.2-8.2) g/dL Albumin (3.8-4.9) g/dL Globulin (1.6-3.3) g/dL Albumin/Globulin Ratio (1.60-3.17) g/dL Procalcitonin (0.02-0.09) ng/mL Crossmatch Assessment and Plan (1) Normocytic normochromic anemia Narrative/Plan: 62-year-old male who presented to the emergency department with diarrhea and tested positive for COVID-19 infection presented with anemia. Hemoglobin continually dropped throughout his hospital stay requiring now u6 nits of blood transfusion. Hematology had been following a believes likely related to underlying virus, anemia of inflammation and history of gastric bypass, as well as possible component of liver disease from alcoholism causing some bone marrow suppression. Patient initially did not have any signs or symptoms of GI bleed. No prior history of EGD or colonoscopy. During this hospitalization he was started on a heparin drip for previous DVT in acute DVT. During that time he was noted to have a drop in his hemoglobin. He had some abdominal discomfort and was noted to have a large intramuscular hematoma of the left iliac muscle and additional retroperitoneal hematoma. Anticoagulation was held and patient underwent IVC filter placement by vascular surgery. Yesterday he again had a drop in his hemoglobin of 5.5 with reported black loose stools for the last 2 days duration. Occult stool was positive, concern for possible GI bleed. Recommend proceeding with upper and lower endoscopy. Current Visit: Yes Status: Acute Priority: High Code(s): D64.9 - ANEMIA, UNSPECIFIED SNOMED Code(s): 29730776 (2) Fecal occult blood test positive Current Visit: Yes Status: Acute Code(s): R19.5 - OTHER FECAL ABNORMALITIES SNOMED Code(s): 15598882 (3) COVID-19 Current Visit: Yes Status: Acute Priority: High Code(s): U07.1 - COVID-19 SNOMED Code(s): 625248160 (4) Diarrhea Current Visit: Yes Status: Acute Priority: High Code(s): R19.7 - DIARRHEA, UNSPECIFIED SNOMED Code(s): 70592248 (5) Left leg DVT Current Visit: Yes Status: Acute Priority: High Code(s): I82.402 - ACUTE EMBOLISM AND THOMBOS UNSP DEEP VEINS OF L LOW EXTREM SNOMED Code(s): 658952806 Plan: 1. Continue symptomatic and supportive care 2. Daily CBC, transfuse for hemoglobin less than 7 3. Continue to hold anticoagulation 4. Clear liquid diet 5. Patient tentatively scheduled for EGD colonoscopy tomorrow 6. Protonix 40 mg twice a day for GI prophylaxis Thank you for this consultation, we will continue to follow. Dr. Radha Lundberg I agree with the dictator's note, documented as a scribe by Sarah Oconnor.
--- NOTE | 2022-12-01 11:09 | P.PN ---
Subjective Patient is seen in follow-up for acute kidney injury on chronic kidney disease. Renal function fairly stable. Jo catheter discontinued. Currently with external catheter Nonoliguric. No active complaints. Hemoglobin was 5.5 g/dL yesterday, status post 1 unit packed RBCs stool for occult blood is positive Serum creatinine at 1.2 Urine output 1.9 L for 24 hours. Objective - Vital Signs Vital signs: Vital Signs Temp 98.1 F 12/01/22 08:00 Pulse 60 12/01/22 08:00 Resp 16 12/01/22 08:00 BP 106/67 12/01/22 08:00 Pulse Ox 99 12/01/22 08:00 FiO2 Intake & Output 11/30/22 12/01/22 12/01/22 18:59 06:59 18:59 Intake Total 1096 Output Total 550 1400 Balance 546 -1400 Intake: Oral 476 Blood Product 620 Rc As-1 Unit 310 [id number] Rc Irr As1 Unit 310 [id number] Output: Urine 550 1400 Other: Voiding Method External Catheter External Catheter External Catheter # Bowel Movements 1 1 - Exam Patient is comfortable awake alert oriented 3 Examination of the heart S1 and S2 Examination of the lungs bilateral breath sounds are heard Abdomen is soft nontender Examination lower extremity shows 1+ edema bilaterally 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 grossly intact - Labs CBC & Chem 7: 12/01/22 08:43 11/30/22 05:19 Labs: Abnormal Lab Results - Last 24 Hours (Table) 11/30/22 11/30/22 11/30/22 Range/Units 11:40 12:14 16:46 WBC (3.8-10.6) k/uL RBC (4.30-5.90) m/uL Hgb (13.0-17.5) gm/dL Hct (39.0-53.0) % RDW (11.5-15.5) % Plt Count (150-450) k/uL POC Glucose (mg/dL) 185 H 167 H (70-110) mg/dL Crossmatch See Detail 11/30/22 12/01/22 12/01/22 Range/Units 20:57 07:25 08:43 WBC 18.2 H (3.8-10.6) k/uL RBC 2.42 L (4.30-5.90) m/uL Hgb 7.7 L (13.0-17.5) gm/dL Hct 22.7 L (39.0-53.0) % RDW 19.1 H (11.5-15.5) % Plt Count 101 L (150-450) k/uL POC Glucose (mg/dL) 242 H 139 H (70-110) mg/dL Crossmatch Assessment and Plan Assessment: 1. Acute kidney injury mostly prerenal secondary to acute blood loss anemia and urinary retention. Renal function stable. Creatinine 1.2. Patient received IV contrast on 11/23/2022. Jo catheter has been removed. 2. Chronic kidney disease stage II with baseline creatinine 1-1.1. 3. Urinary retention. Jo catheter removed 11/27/2022. On Flomax. 4. Lower extremity edema maintained on Lasix. Better. 5. Hyperkalemia secondary to GI bleed and acidosis. Stable. 6. GI bleed status post blood transfusion this admission. CAT scan showed large intramuscular hematoma. Surgery following. 7. Metabolic acidosis secondary to acute kidney injury and GI losses maintained on oral bicarbonate. 8. Hypomagnesemia from diuresis. Replaced. Stable. Plan: Continue with oral Lasix Check renal profile periodically
[2022-12-01 11:19] LABS: INR 0.9 (<1.2); Partial Thromboplastin Time 22.8 sec (22.0-30.0); Prothrombin Time 9.9 sec (9.0-12.0)
[2022-12-01 12:08] LABS: Glucose,Whole Blood 160 mg/dL (70-110)
--- NOTE | 2022-12-01 14:47 | P.PN ---
Subjective Progress Note Date: 12/01/22 CHIEF COMPLAINT: Diarrhea HISTORY OF PRESENT ILLNESS: Surgical service following regards to patient's ret roperitoneal bleed. Patient had a drop in his hemoglobin yesterday to 5.5. He received 2 units of blood hemoglobin is now 7.7. Repeat computed tomography scan abdomen and pelvis reports to known left-sided retroperitoneal fluid collection or hematomas are decreased in size from 1 week earlier. No new suspicious fluid focal collection or hematoma. Severe diffuse soft tissue anasarca remains present. Patient denies any abdominal pain. Denies any nausea or vomiting. Patient did start to have black stools. Stool for occult blood is positive. He has been seen by GI service and is scheduled for EGD and colonoscopy tomorrow. PHYSICAL EXAM: VITAL SIGNS: Reviewed. GENERAL: Well-developed in no acute distress. HEENT: No sclera icterus. Extraocular movements grossly intact. Moist buccal mucosa. Head is atraumatic, normocephalic. ABDOMEN: Soft. Nondistended. Nontender. NEUROLOGIC: Alert and oriented. Cranial nerves II through XII grossly intact. Skin: No evidence of ecchymosis in the back or abdomen. ASSESSMENT: 1. Left retroperitoneal hematoma improving 2. Large intramuscular hematoma of the left iliacus muscle improving 3. GI bleed with black stools 4. Discitis cervical and lumbar spine PLAN: -Patient scheduled for EGD and colonoscopy tomorrow with GI service -No surgical intervention planned -Continue supportive care -Continue to hold anticoagulation -Continue regular diet -Continue to monitor hemoglobin -Surgical service will sign off. Please call with any questions or concerns. Physician Bit Sharpener Operator note has been reviewed by physician. Signing provider agrees with the documented findings, assessment, and plan of care. I have personally seen and examined the patient, reviewed the POULTRY SCALDER /PAs history, exam and MDM and agree with the assessment and plan as written. Based on total visit time, I have performed more than 50% of the visit. As above: Patient's repeat CAT scan shows improvement in the retroperitoneal hematoma. It is certainly not the source of any anemia at this point. Continue GI workup for possible GI source of bleeding. We'll sign off. Please call if needed. Objective - Vital Signs Vital signs: Vital Signs Temp 98.1 F 12/01/22 08:00 Pulse 60 12/01/22 08:00 Resp 16 12/01/22 08:00 BP 106/67 12/01/22 08:00 Pulse Ox 99 12/01/22 08:00 FiO2 Intake & Output 11/30/22 12/01/22 12/01/22 18:59 06:59 18:59 Intake Total 1096 Output Total 550 1400 Balance 546 -1400 Intake: Oral 476 Blood Product 620 Rc As-1 Unit 310 [id number] Rc Irr As1 Unit 310 [id number] Output: Urine 550 1400 Other: Voiding Method External Catheter External Catheter External Catheter # Bowel Movements 1 1 - Labs CBC & Chem 7: 12/01/22 08:43 11/30/22 05:19 Labs: Abnormal Lab Results - Last 24 Hours (Table) 11/30/22 11/30/22 11/30/22 Range/Units 11:40 16:46 20:57 WBC (3.8-10.6) k/uL RBC (4.30-5.90) m/uL Hgb (13.0-17.5) gm/dL Hct (39.0-53.0) % RDW (11.5-15.5) % Plt Count (150-450) k/uL Fibrinogen (200-500) mg/dL POC Glucose (mg/dL) 167 H 242 H (70-110) mg/dL Crossmatch See Detail 12/01/22 12/01/22 12/01/22 Range/Units 07:25 08:43 10:10 WBC 18.2 H (3.8-10.6) k/uL RBC 2.42 L (4.30-5.90) m/uL Hgb 7.7 L (13.0-17.5) gm/dL Hct 22.7 L (39.0-53.0) % RDW 19.1 H (11.5-15.5) % Plt Count 101 L (150-450) k/uL Fibrinogen 113 L (200-500) mg/dL POC Glucose (mg/dL) 139 H (70-110) mg/dL Crossmatch 12/01/22 Range/Units 12:07 WBC (3.8-10.6) k/uL RBC (4.30-5.90) m/uL Hgb (13.0-17.5) gm/dL Hct (39.0-53.0) % RDW (11.5-15.5) % Plt Count (150-450) k/uL Fibrinogen (200-500) mg/dL POC Glucose (mg/dL) 160 H (70-110) mg/dL Crossmatch
[2022-12-01] MEDS ORDERED: PEG 3350 (236 GM/BTL) + LYTES 4,000 ML BOTTLE PO ONE (16:00)
--- NOTE | 2022-12-01 17:14 | P.PN ---
Subjective Progress Note Date: 12/01/22 Principal diagnosis: Anemia, LLE DVT, Soft tissue bleeding on anticoagulation Pt reports he is feeling ok. Reports no pain. Surgical intervention on hold until medically cleared. Hemoglobin yesterday 5.5, received 2 units PRBCs, hemoglobin 7.7 today. Reports blood in stool 2 days ago. Objective - Vital Signs Vital signs: Vital Signs Temp 98.4 F 12/01/22 14:00 Pulse 72 12/01/22 14:00 Resp 18 12/01/22 14:00 BP 115/75 12/01/22 14:00 Pulse Ox 98 12/01/22 14:00 FiO2 Intake & Output 11/30/22 12/01/22 12/01/22 18:59 06:59 18:59 Intake Total 1096 Output Total 550 1400 Balance 546 -1400 Intake: Oral 476 Blood Product 620 Rc As-1 Unit 310 [id number] Rc Irr As1 Unit 310 [id number] Output: Urine 550 1400 Other: Voiding Method External Catheter External Catheter External Catheter # Bowel Movements 1 1 - Constitutional General appearance: Present: average body habitus, no acute distress - EENT Eyes: Present: anicteric sclerae, EOMI ENT: Present: hearing grossly normal - Respiratory Respiratory: bilateral: CTA - Cardiovascular Rhythm: regular Heart sounds: normal: S1, S2 Abnormal Heart Sounds: Absent: systolic murmur, diastolic murmur, rub, S3 Gallop, S4 Gallop, click, other - Peripheral edema leg Peripheral Edema: right: None, left: 3+, Pitting - Gastrointestinal General gastrointestinal: Present: soft. Absent: tenderness - Integumentary Integumentary: Present: pale - Neurologic Neurologic Comment(s): grossly Neurologic: Present: CNII-XII intact - Musculoskeletal Musculoskeletal: Present: generalized weakness, strength equal bilaterally - Psychiatric Psychiatric: Present: A&O x's 3, appropriate affect, intact judgment & insight - Labs CBC & Chem 7: 12/01/22 08:43 11/30/22 05:19 Labs: Abnormal Lab Results - Last 24 Hours (Table) 11/30/22 11/30/22 11/30/22 Range/Units 11:40 16:46 20:57 WBC (3.8-10.6) k/uL RBC (4.30-5.90) m/uL Hgb (13.0-17.5) gm/dL Hct (39.0-53.0) % RDW (11.5-15.5) % Plt Count (150-450) k/uL Fibrinogen (200-500) mg/dL POC Glucose (mg/dL) 167 H 242 H (70-110) mg/dL Crossmatch See Detail 12/01/22 12/01/22 12/01/22 Range/Units 07:25 08:43 10:10 WBC 18.2 H (3.8-10.6) k/uL RBC 2.42 L (4.30-5.90) m/uL Hgb 7.7 L (13.0-17.5) gm/dL Hct 22.7 L (39.0-53.0) % RDW 19.1 H (11.5-15.5) % Plt Count 101 L (150-450) k/uL Fibrinogen 113 L (200-500) mg/dL POC Glucose (mg/dL) 139 H (70-110) mg/dL Crossmatch 12/01/22 Range/Units 12:07 WBC (3.8-10.6) k/uL RBC (4.30-5.90) m/uL Hgb (13.0-17.5) gm/dL Hct (39.0-53.0) % RDW (11.5-15.5) % Plt Count (150-450) k/uL Fibrinogen (200-500) mg/dL POC Glucose (mg/dL) 160 H (70-110) mg/dL Crossmatch Assessment and Plan (1) Normocytic normochromic anemia Current Visit: Yes Status: Acute Priority: High Code(s): D64.9 - ANEMIA, UNSPECIFIED SNOMED Code(s): 04149535 (2) COVID-19 Current Visit: Yes Status: Acute Priority: High Code(s): U07.1 - COVID-19 SNOMED Code(s): 420944791 (3) Left leg DVT Current Visit: Yes Status: Acute Priority: High Code(s): I82.402 - ACUTE EMBOLISM AND THOMBOS UNSP DEEP VEINS OF L LOW EXTREM SNOMED Code(s): 972633144 Plan: Anemia -Persistent. Requiring transfusion. GI plans for EGD/colonoscopy tomorrow. C ontinue to monitor for any bleeding. -DIC labs ordered-subclinical DIC? -Hemolysis workup reordered. -Transfuse PRBCs for hemoglobin less than 7.0. LLE DVT -Heparin D/C on 11/23/22 due to large hematoma of left iliac muscle and retroperitoneal hematoma inferior to left kidney. Vascular has placed an IVC filter as patient is not a candidate for anticoagulation at this time. Repeat CT abd/pelvis on 11/30/21 showed improvement in hematoma
[2022-12-01 17:21] LABS: Glucose,Whole Blood 147 mg/dL (70-110)
[2022-12-01] MEDS: TAMSULOSIN 0.4 MG CAP.ER.24H PO SCH (17:58)
--- NOTE | 2022-12-01 18:30 | P.PN ---
Subjective Progress Note Date: 12/01/22 Principal diagnosis: Abnormal MRI questionable discitis Patient is a 62-year-old male who is unvaccinated for COVID-19 patient was brought into the ER for evaluation of weakness no energy mention the patient was not able to get stand up and go to the bathroom patient has been dealing with the diarrhea off and on for couple of weeks, patient was noticed to have a positive covid test, however the patient was not hypoxic and CT abdominal pelvis with few bibasilar patchy groundglass opacity representing atelectasis and no evidence of colitis. Patient did have a drop in his hemoglobin and underwent a CT angiogram that demonstrated a large intramuscular hematoma in the left iliac is muscle in the retroperitoneum. Patient is status post Tali filter placement on 11/25/2022 On today's evaluation that is 12/01/2022, the patient remains to be afebrile, the patient is breathing comfortably on room air, The patient denies chest pain, the patient has been complaining of more cough but mostly dry in nature no nausea no vomiting no abdominal pain or diarrhea Objective - Vital Signs Vital signs: Vital Signs Temp 98.1 F 12/01/22 08:00 Pulse 60 12/01/22 08:00 Resp 16 12/01/22 08:00 BP 106/67 12/01/22 08:00 Pulse Ox 99 12/01/22 08:00 FiO2 Intake & Output 11/30/22 12/01/22 12/01/22 18:59 06:59 18:59 Intake Total 1096 Output Total 550 1400 Balance 546 -1400 Intake: Oral 476 Blood Product 620 Rc As-1 Unit 310 [id number] Rc Irr As1 Unit 310 [id number] Output: Urine 550 1400 Other: Voiding Method External Catheter External Catheter External Catheter # Bowel Movements 1 1 - Exam GENERAL DESCRIPTION: An elderly male lying in bed in no distress RESPIRATORY SYSTEM: Unlabored breathing , decreased breath sounds at bases HEART: S1 S2 regular rate and rhythm , ABDOMEN: Soft , no tenderness EXTREMITIES: No edema feet - Labs CBC & Chem 7: 12/01/22 08:43 11/30/22 05:19 Labs: Abnormal Lab Results - Last 24 Hours (Table) 11/30/22 11/30/22 11/30/22 Range/Units 05:19 05:19 11:40 WBC 24.59 H (4.50-10.00) X 10*3/uL RBC 1.80 L (4.40-5.60) X 10*6/uL Hgb 5.5 L* (13.0-17.0) g/dL Hct 17.6 L* (39.6-50.0) % MCV 97.8 H (80.0-97.0) fL MCHC 31.3 L (32.0-37.0) g/dL RDW 20.8 H (11.5-14.5) % Plt Count 125 L (140-440) X 10*3/uL Plt Count Comment DECREASED A Immature Gran # 0.39 H (0.00-0.04) X 10*3/uL Neutrophils # 21.98 H (1.80-7.70) X 10*3/uL Eosinophils # 0 L (0.04-0.35) X 10*3/uL POC Glucose (mg/dL) (70-110) mg/dL Procalcitonin 0.12 H (0.02-0.09) ng/mL Crossmatch See Detail 11/30/22 11/30/22 11/30/22 Range/Units 12:14 16:46 20:57 WBC (4.50-10.00) X 10*3/uL RBC (4.40-5.60) X 10*6/uL Hgb (13.0-17.0) g/dL Hct (39.6-50.0) % MCV (80.0-97.0) fL MCHC (32.0-37.0) g/dL RDW (11.5-14.5) % Plt Count (140-440) X 10*3/uL Plt Count Comment Immature Gran # (0.00-0.04) X 10*3/uL Neutrophils # (1.80-7.70) X 10*3/uL Eosinophils # (0.04-0.35) X 10*3/uL POC Glucose (mg/dL) 185 H 167 H 242 H (70-110) mg/dL Procalcitonin (0.02-0.09) ng/mL Crossmatch 12/01/22 12/01/22 Range/Units 07:25 08:43 WBC 18.2 H (4.50-10.00) X 10*3/uL RBC 2.42 L (4.40-5.60) X 10*6/uL Hgb 7.7 L (13.0-17.0) g/dL Hct 22.7 L (39.6-50.0) % MCV (80.0-97.0) fL MCHC (32.0-37.0) g/dL RDW 19.1 H (11.5-14.5) % Plt Count 101 L (140-440) X 10*3/uL Plt Count Comment Immature Gran # (0.00-0.04) X 10*3/uL Neutrophils # (1.80-7.70) X 10*3/uL Eosinophils # (0.04-0.35) X 10*3/uL POC Glucose (mg/dL) 139 H (70-110) mg/dL Procalcitonin (0.02-0.09) ng/mL Crossmatch Assessment and Plan (1) COVID-19 Current Visit: Yes Status: Acute Priority: High Code(s): U07.1 - COVID-19 SNOMED Code(s): 196725224 Plan: 1patient did have a abnormal MRI of the cervical spine as well as lumbar spine with a questionable discitis reported by radiologist however the patient did have normal sed rate and a CRP 2, patient is currently being monitor closely off antibiotic therapy to increase the yield of any culture to be done at the time of surgery . Apparently the patient is not stable to undergo surgery per orthopedics, IR unable to do CT-guided aspirate of the affected lumbar spine for microbiological diagnosis 2leukocytosis is more likely steroid related as well as reactive to his bleed as the patient did have evidence of muscle hematoma as well as retroperitoneal hematoma and the patient is status post [place] filter placement , patient did have a repeat CT completed yesterday overall decrease in size of hematoma and no new hematoma has been reported and the patient white count is trending down to 18,000 with to monitor closely off antibiotic Time with Patient: Less than 30
--- NOTE | 2022-12-01 18:31 | P.PN ---
Subjective Progress Note Date: 11/30/22 Principal diagnosis: Abnormal MRI questionable discitis Patient is a 62-year-old male who is unvaccinated for COVID-19 patient was brought into the ER for evaluation of weakness no energy mention the patient was not able to get stand up and go to the bathroom patient has been dealing with the diarrhea off and on for couple of weeks, patient was noticed to have a positive covid test, however the patient was not hypoxic and CT abdominal pelvis with few bibasilar patchy groundglass opacity representing atelectasis and no evidence of colitis. Patient did have a drop in his hemoglobin and underwent a CT angiogram that demonstrated a large intramuscular hematoma in the left iliac is muscle in the retroperitoneum. Patient is status post [place]ali filter placement on 11/25/2022 On today's evaluation that is 11/30/2022, the patient denies any fever or any chills, the patient is breathing comfortably on room air, The patient denies chest pain, the patient did have occasional cough but no sputum production, the patient denies nausea no vomiting no abdominal pain no diarrhea, patient continued to have problem with anemia with hemoglobin down to 5.6 today Objective - Vital Signs Vital signs: Vital Signs Temp 97.7 F 11/30/22 13:42 Pulse 70 11/30/22 14:02 Resp 16 11/30/22 14:02 BP 105/73 11/30/22 14:02 Pulse Ox 99 11/30/22 14:02 FiO2 Intake & Output 11/29/22 11/30/22 11/30/22 18:59 06:59 18:59 Intake Total 236 Output Total 1000 1000 250 Balance -1000 -1000 -14 Intake: Oral 236 Blood Product 0 Unit 0 Output: Urine 1000 1000 250 Other: Voiding Method External Catheter External Catheter # Bowel Movements 1 2 - Exam GENERAL DESCRIPTION: An elderly male lying in bed in no distress RESPIRATORY SYSTEM: Unlabored breathing , decreased breath sounds at bases HEART: S1 S2 regular rate and rhythm , ABDOMEN: Soft , no tenderness EXTREMITIES: No edema feet - Labs CBC & Chem 7: 12/01/22 08:43 11/30/22 05:19 Labs: Abnormal Lab Results - Last 24 Hours (Table) 11/29/22 11/29/22 11/30/22 Range/Units 17:06 20:34 05:19 WBC (4.50-10.00) X 10*3/uL RBC (4.40-5.60) X 10*6/uL Hgb (13.0-17.0) g/dL Hct (39.6-50.0) % MCV (80.0-97.0) fL MCHC (32.0-37.0) g/dL RDW (11.5-14.5) % Plt Count (140-440) X 10*3/uL Plt Count Comment Immature Gran # (0.00-0.04) X 10*3/uL Neutrophils # (1.80-7.70) X 10*3/uL Eosinophils # (0.04-0.35) X 10*3/uL Anion Gap (10.00-18.00) mmol/L BUN (9.0-27.0) mg/dL BUN/Creatinine Ratio (12.00-20.00) Ratio Glucose (70-110) mg/dL POC Glucose (mg/dL) 199 H 234 H (70-110) mg/dL Calcium (8.7-10.3) mg/dL Total Protein (6.2-8.2) g/dL Albumin (3.8-4.9) g/dL Globulin (1.6-3.3) g/dL Albumin/Globulin Ratio (1.60-3.17) g/dL Procalcitonin 0.12 H (0.02-0.09) ng/mL Crossmatch 11/30/22 11/30/22 11/30/22 Range/Units 05:19 05:19 07:20 WBC 24.59 H (4.50-10.00) X 10*3/uL RBC 1.80 L (4.40-5.60) X 10*6/uL Hgb 5.5 L* (13.0-17.0) g/dL Hct 17.6 L* (39.6-50.0) % MCV 97.8 H (80.0-97.0) fL MCHC 31.3 L (32.0-37.0) g/dL RDW 20.8 H (11.5-14.5) % Plt Count 125 L (140-440) X 10*3/uL Plt Count Comment DECREASED A Immature Gran # 0.39 H (0.00-0.04) X 10*3/uL Neutrophils # 21.98 H (1.80-7.70) X 10*3/uL Eosinophils # 0 L (0.04-0.35) X 10*3/uL Anion Gap 8.00 L (10.00-18.00) mmol/L BUN 49.8 H (9.0-27.0) mg/dL BUN/Creatinine Ratio 41.50 H (12.00-20.00) Ratio Glucose 126 H (70-110) mg/dL POC Glucose (mg/dL) 146 H (70-110) mg/dL Calcium 7.5 L (8.7-10.3) mg/dL Total Protein 3.8 L (6.2-8.2) g/dL Albumin 2.3 L (3.8-4.9) g/dL Globulin 1.5 L (1.6-3.3) g/dL Albumin/Globulin Ratio 1.53 L (1.60-3.17) g/dL Procalcitonin (0.02-0.09) ng/mL Crossmatch 11/30/22 11/30/22 Range/Units 11:40 12:14 WBC (4.50-10.00) X 10*3/uL RBC (4.40-5.60) X 10*6/uL Hgb (13.0-17.0) g/dL Hct (39.6-50.0) % MCV (80.0-97.0) fL MCHC (32.0-37.0) g/dL RDW (11.5-14.5) % Plt Count (140-440) X 10*3/uL Plt Count Comment Immature Gran # (0.00-0.04) X 10*3/uL Neutrophils # (1.80-7.70) X 10*3/uL Eosinophils # (0.04-0.35) X 10*3/uL Anion Gap (10.00-18.00) mmol/L BUN (9.0-27.0) mg/dL BUN/Creatinine Ratio (12.00-20.00) Ratio Glucose (70-110) mg/dL POC Glucose (mg/dL) 185 H (70-110) mg/dL Calcium (8.7-10.3) mg/dL Total Protein (6.2-8.2) g/dL Albumin (3.8-4.9) g/dL Globulin (1.6-3.3) g/dL Albumin/Globulin Ratio (1.60-3.17) g/dL Procalcitonin (0.02-0.09) ng/mL Crossmatch See Detail Assessment and Plan (1) COVID-19 Current Visit: Yes Status: Acute Priority: High Code(s): U07.1 - COVID-19 SNOMED Code(s): 408047566 Plan: 1patient did have a abnormal MRI of the cervical spine as well as lumbar spine with a questionable discitis reported by radiologist however the patient did have normal sed rate and a CRP 2, patient is currently being monitor closely off antibiotic therapy to increase the yield of any culture to be done at the time of surgery . Apparently the patient is not stable to undergo surgery per orthopedics, IR unable to do CT-guided aspirate of the affected lumbar spine for microbiological diagnosis 2leukocytosis is more likely steroid related as well as reacted to his bleed as the patient did have evidence of muscle hematoma as well as retroperitoneal hematoma and the patient is status post [place] filter placement and is currently being monitored closely off antibiotic therapy, Time with Patient: Less than 30
[2022-12-01 19:25] LABS: Glucose,Whole Blood 214 mg/dL (70-110)
[2022-12-01] MEDS: MELATONIN 3 MG TABLET PO SCH (21:52)
[2022-12-02] MEDS: DEXAMETHASONE SOD PHOSPHATE 4 MG/ML 1 ML VIAL IVP SCH ×4 (00:01→22:26)
[2022-12-02 05:23] LABS: Glucose,Whole Blood 124 mg/dL (70-110)
[2022-12-02] MEDS: INSULIN ASPART (NovoLOG) 100 UNIT/ML VIAL SQ SCH ×4 (05:32→20:49)
[2022-12-02] MEDS: LEVOTHYROXINE 50 MCG TAB PO SCH (06:16)
--- NOTE | 2022-12-02 06:33 | P.PN ---
Subjective Progress Note Date: 12/01/22 Paroxysmal atrial fibrillation Intractable nausea/vomiting/diarrhea Profound hypokalemia Acute renal injury COVID-19 infection 62-year-old male in the emergency department for diarrhea. She notes diarrhea starting and he asked progressively gotten worse. He reports he stood up from a chair and had an episode of diarrhea, admits he still maintains bowel function. He has not tried anything for his symptoms. He denies nausea, vomiting, abdominal pain, palpitations, fevers. Denies recent travel or recent antibiotic use. He is scheduled to have his first colonoscopy in january of 2023. Patient had an initial lab work is remarkable for WBC is 11.4, hemoglobin 8.7, INR 1.2, sodium 133, potassium 2.6 lactic acid 2.9, calcium 6.3, magnesium 0.8, lipase 60, COVID positive. I interpreted the following; CT abdomen without contrast remarkable for fluid filled colon without focal wall thickening or surrounding inflammatory changes. Patient was given 2 L fluids, potassium, magnesium and calcium during his course of the ED. 11/08/2022 Patient is seen and evaluated on selective care unit; he went into atrial fibrillation with rapid ventricular response he was transferred to the third floor/selective minute. The patient did not have any symptoms of heart racing or fluttering and no dizziness or lightheadedness and no presyncope or syncope and no symptoms of chest pain or chest discomfort or shortness of breath. No prior history of atrial fibrillation. No history of coronary artery disease or congestive heart failure or cardiac arrhythmia and the patient never seen a cooling pan tender in the past. Beside that no history of diabetes or hypertension or dyslipidemia. The patient was started initially on Cardizem drip but his pressure did go down and for that reason he was switched into amiodarone IV and subsequently converted to normal sinus mechanism and since then he has been maintaining normal sinus mechanism. Further investigation was performed including CBC and that showed a hemoglobin of 7.7. The patient has no history of bleeding. B eside that he underwent a computed tomography scan of the abdomen and pelvis because of the abdominal discomfort that showed no acute abnormalities. The troponin came in to be slightly elevated likely secondary to tachycardia. The EKG showed sinus rhythm now with no significant ST or T-wave abnormalities. Blood work reveals mild elevation of troponin; Patient has been evaluated by cardiology and recommended to continue with IV fluids, replace electrolytes; IV amiodarone is to be discontinued patient is transition to oral dose daily 11/09/2022 Patient is seen and evaluated in follow-up this morning and continues to feel generalized weakness and continues with loose stools. Per nursing staff when assisting to clean the patient up patient was significantly weak on the right. Patient denied any headache, dizziness, or lightheadedness. Will obtain a CT of the brain and also consult neurology. Recommend PT/OT therapy evaluation for significant weakness. C. diff testing was negative on the stool and will add Imodium and encourage oral intake and advance as tolerated. Patient is ma intaining on vitamins and zinc supplements along with subcutaneous heparin with anxiety following closely. Patient denies chest pain or shortness of breath. Afebrile. Recommend a.m. labs as well. 11/10/2022 Patient is seen in follow-up today with multiple medical consultations including cardiology, hematology, infectious disease, and now neurology following. Patient with significant weakness in all upper and lower extremities with neurology undergoing workup recommending aspirin as patient is not on any anticoagulation at this time. Cardiology is following and patient was transitioned back to IV Cardizem although being changed to oral with close monitoring. Magnesium found to be significantly low at 1.2 and will replace per protocol and recommend repeat labs. Hemoglobin is mildly low at 7.4 and undergoing anemia workup with hematology following. Patient with Covid and extreme weakness will need ECF and discharge planning in process. Recommend close monitoring of labs and replace electrolytes per protocol. Patient was started on Imodium as C. diff testing 2 was negative. Patient continues to have loose stools although somewhat improved. Encouraged oral intake and incr eased activity as tolerated. Recommend PT/OT therapy daily. Patient denies chest pain or shortness of breath. Patient is 97% on room air. Patient will continue on vitamin and zinc supplements with anxiety following closely. Recommend gentle IV hydration. 11/11/2022 Patient is seen and evaluated in follow-up with multiple medical consultations following including infectious disease and neurology. Oncology following undergoing anemia workup. Hemoglobin was found to be 6.5 today and will order 1 unit of PRBC and recommend close monitoring. No active bleeding noted. Patient was started on baby aspirin per neurology and scheduled to undergo MRI of the cervical spine today. Patient continues with significant weakness and will need rehab upon discharge. Patient is maintained on vitamin and zinc supplements and was also being followed by cardiology. Adjustments to medications being done and patient is on oral Cardizem. Will follow-up with repeat labs. Patient is afebrile and denies shortness of breath. Patient clinically appears to be improving. Per nursing staff patient is incontinent of stool in continues to be somewhat loose although less frequent. C. diff testing was negative and stool cultures are negative. Encouraged oral intake. Will discuss with case management about discharge planning to ECF as he will require a Covid hub. 11/12/2022 Patient is seen and evaluated in follow-up today with multiple medical consultations following including infectious disease, cardiology, neurology. Patient's hemoglobin is low again at 6.8 and will give 1 unit. Recommend holding aspirin. Patient did have an elevated d-dimer and CTA was ordered. GI was also consulted for anemia. Patient continues to have incontinence of stool and loose stools and is maintained on Questran and will be given Imodium as needed. Patient continues with generalized weakness and fatigue and also having some lower extremity pain and swelling and have ordered Dopplers of bilateral lo wer extremities as well. Patient with Covid vitamin and zinc supplements and anticoagulation with subcu heparin. Hematology also following for anemia. Recommend repeat CBC this evening and will transfuse another unit as well. Cardiology following and adjustments to medications being made and patient also being started on low-dose diuretics. Patient is having low-grade temps of 99.3- 99.6 and patient continues to be 95% or above on room air. Blood pressure on the lower side although stable. Stool cultures and C. diff testing have been negative. Patient started on antibiotics per ID recommendations in the form of Zithromax and ceftriaxone. Reviewed iron studies which are low and will give IV iron as well. Electrolytes continue to be low and will replace per protocol. Patient will need ECF once stabilized and discharged 11/13/2022 Patient is seen today with multiple medical consultations following and undergoing neurological workup and having bilateral upper and lower extremity weakness. Neurology recommends orthopedic consultation which is currently pending. Patient did have some movement in his diarrhea and reports becoming more formed and less frequent. Patient continues to be incontinent of this. Patient being started on antibiotics with anxiety following an also continues to have anemia. GI recommending continuing with hematology workup. Multiple images including MRIs and pending at time. Patient with significant weakness will be going to rehab when stable. A.m. labs are pending. 11/24/2022 Patient is currently resting in the bed. Awake alert and oriented x3. No complaints of chest pain or shortness of breath. Left lower abdominal discomfort is improved. Hemoglobin is stable. Vascular surgery has seen the patient is planning for IVC filter placement. Heparin is on hold due to retroperitoneal bleed. Laboratory data showed WBC 25.6 hemoglobin 7.1 and platelets 159 sodium 131 potassium 5.7 chloride 112 bicarb is 37 creatinine 1.18 and calcium 7.0. Nephrology, ID and vascular surgery is on board. 11/25/2022 Patient is currently resting in bed. Awake alert and oriented x3. On room air. No complaints of chest pain or shortness of breath. No abdominal pain. No nausea vomiting abdominal pain or diarrhea. Patient is scheduled for IVC filter placement today. Otherwise hemoglobin level is 6.8 and 1 unit of PRBC was ordered. Other laboratory data showed WBC 20.6 hemoglobin 6.8 and platelets 149 sodium 135 potassium 5.4 chloride 101 bicarb is 23 BUN 34 and creatinine 1.25. Magnesium 1.6. Patient is being continued dexamethasone as per orthopedic surgery. Also on IV Lasix. Nephrology and general surgery is on board. Patient was given a dose of Lokelma yesterday. 11/26/2022 Patient is currently resting in bed. Awake alert and oriented x3. No complaints of back pain or abdominal pain. No nausea vomiting abdominal pain or diarrhea. No cough or sputum production. Currently on room air. Patient is status post IVC filter placement on 11/25/2022. Patient received 1 unit of PRBC yesterday and hemoglobin improved to 7.6 today. Level data showed WBC 22.3 hemoglobin 7.6 and platelets 141 sodium 136 potassium 5.3 chloride 101 bicarb is 23 BUN 32 and creatinine 1.23 and blood sugar is 125 and calcium 7.2. Magnesium 1.9. Follow-up CBC and BMP was ordered. Orthopedic surgery is planning for OR when medically stable tomorrow. 11/28/2022 Patient is seen and evaluated in follow-up and apparently orthopedics is scheduled for surgical intervention is patient is unstable. Recommending awaiting medical clearance. Infectious disease following and patient is being maintained and monitored closely of IV antibiotic therapy. Patient is status post [place] filter placement any stable. No active bleeding noted. General surgery following for hematoma on the back with no surgical interventions planned. Patient with significant weakness recommend PT/OT therapy and will discuss with case management about discharge planning and ECF. Recommend follow-up labs in the a.m. she is currently afebrile denies chest pain or shortness of breath. He stable. No active bleeding noted. Patient is tolerating diet with no reports of nausea or vomiting noted. 11/29/2022 Patient was seen in follow-up this morning with orthopedics along with infectious disease, nephrology, general surgery, hematology following. Vital signs of been stable patient is continued on dexamethasone per orthopedics and will discuss about weaning parameters. Patient is also maintained off of antibiotics. Patient was significant weakness recommend PT/OT therapy and rehab on discharge. Patient continues to have elevated white blood count is infectious disease following and repeat inflammatory markers ordered. Patient is afebrile denies chest pain or shortness of breath. 11/30/2022 Patient is seen and evaluated in follow-up today with multiple medical consultations following. Hemoglobin was found to be critically low at 5.5 with a hematocrit of 17.6 and awaiting to receive 2 units of blood. Patient is status post IVC filter this admission as he was having anemia with acute on chronic DVT of the left proximal vein and also found to have a large intramuscular hematoma of the left iliac muscle, retroperitoneal hematoma. Gen. surgery services following as well. Patient also noted be having black tarry stools and will reconsult GI as we have services available tomorrow. Patient was having some abdominal discomfort and will obtain CT angiogram and evaluate for bleeding. Orthopedics following and were initially discussing surgical intervention of the lower spine although on hold as patient is not medically stable for surgical intervention at this time. Patient is maintained on IV dexamethasone and being weaned per orthopedics. Patient continues with significant weakness and bilateral foot drop and inability to ambulate and generalized edema noted throughout. Patient is maintained on oral Lasix and will give a dose of IV Lasix posttransfusion and follow-up with repeat labs this evening. Patient is afebrile denies chest pain or shortness of breath. Patient is frustrated and appears depressed. Patient denies any suicidal thoughts or wanting to harm himself or others. 12/01/2022 Patient is seen and evaluated in follow-up this morning hemoglobin post 2 units of packed red blood cells was 7.7. CT angiogram abdomen and pelvis was negative for any acute bleeding and GI was placed on consult with patient being scheduled for EGD/colonoscopy. Patient is afebrile denies chest pain or shortness of breath. Patient is tolerating diet with no reports of nausea vomiting noted. Orthopedics following as well and no plans for immediate interventions at this time until patient is more stable. No reports of chest pain or shortness of breath patient is sitting up in the bed on room air. Will follow-up with repeat labs. Review of systems: Constitutional: No reports of fatigue, no fever, or chills Cardiovascular: No reports of chest pain or palpitations Respiratory: No reports of shortness of breath or cough GI: No reports of nausea, vomiting, reports black stools that are loose : No reports of dysuria or retention Neurovascular: reports of generalized weakness All medications have been reviewed Active Medications Acetaminophen (Acetaminophen Tab 325 Mg Tab) 650 mg PO Q6HR PRN PRN Reason: Mild Pain or Fever > 100.5 Last Admin: 11/23/22 05:38 Dose: 650 mg Ascorbic Acid (Ascorbic Acid 500 Mg Tab) 500 mg PO BID [facility] Last Admin: 12/01/22 21:52 Dose: 500 mg Calcium Carbonate/Glycine (Calcium Carbonate 500 Mg Chewable) 500 mg PO TID [facility] Last Admin: 12/01/22 21:52 Dose: 500 mg Cholecalciferol (Cholecalciferol 25 Mcg (1000 Iu) Tablet) 50 mcg PO DAILY [facility] Last Admin: 12/01/22 09:44 Dose: 50 mcg Cholestyramine Resin (Cholestyramine (With Sugar) 4 Gm Packet) 4 gm PO BID@1000,1800 [facility] Last Admin: 12/01/22 17:58 Dose: 4 gm Cyanocobalamin (Cyanocobalamin 500 Mcg Tab) 1,000 mcg PO DAILY [facility] Last Admin: 12/01/22 09:45 Dose: 1,000 mcg Dexamethasone Sodium Phosphate (Dexamethasone Sod Phosphate 4 Mg/Ml 1 Ml Vial) 2 mg IVP Q8HR [facility] Last Admin: 12/02/22 00:01 Dose: 2 mg Dextrose/Water (Dextrose 50% Syringe 50 Ml) 25 ml IVP PER PROTOCOL PRN; Protocol PRN Reason: Hypoglycemia Dextrose/Water (Dextrose 50% Syringe 50 Ml) 50 ml IVP PER PROTOCOL PRN; Protocol PRN Reason: Hypoglycemia Diclofenac Sodium (Diclofenac Sodium Gel 100 Gm Tube) 2 gm TOPICAL QID PRN; Protocol PRN Reason: Pain Diltiazem HCl (Diltiazem Oral 30 Mg Tab) 30 mg PO TID [facility] Last Admin: 12/01/22 21:52 Dose: 30 mg Fluoxetine HCl (Fluoxetine Hcl 20 Mg Cap) 20 mg PO DAILY [facility] Last Admin: 12/01/22 09:45 Dose: 20 mg Folic Acid (Folic Acid 1 Mg Tab) 0.5 mg PO DAILY [facility] Last Admin: 12/01/22 09:45 Dose: 0.5 mg Furosemide (Furosemide 40 Mg Tab) 40 mg PO DAILY [facility] Last Admin: 12/01/22 09:45 Dose: 40 mg Furosemide (Furosemide 10 Mg/Ml 4 Ml Vial) 40 mg IV ONCE PRN PRN Reason: Edema Last Admin: 11/30/22 18:04 Dose: 40 mg Insulin Aspart (Insulin Aspart (Novolog) 100 Unit/Ml Vial) 0 unit SQ ACHS [facility]; Protocol Last Admin: 12/02/22 05:32 Dose: Not Given Insulin Detemir (Insulin Detemir (Levemir) 100 Unit/Ml Syr) 10 unit SQ DAILY@ 0700 [facility] Last Admin: 12/01/22 09:44 Dose: 10 unit Levothyroxine Sodium (Levothyroxine 50 Mcg Tab) 50 mcg PO DAILY@0630 [facility] Last Admin: 12/02/22 06:16 Dose: 50 mcg Loperamide HCl (Loperamide 2 Mg Cap) 2 mg PO QID PRN PRN Reason: Diarrhea Last Admin: 11/12/22 09:47 Dose: 2 mg Magnesium Oxide (Magnesium Oxide 400 Mg Tab) 400 mg PO DAILY [facility] Last Admin: 12/01/22 09:45 Dose: 400 mg Melatonin (Melatonin 3 Mg Tablet) 3 mg PO HS [facility] Last Admin: 12/01/22 21:52 Dose: 3 mg Miscellaneous Information (Magnesium Replacement Protocol 1 Each Misc) 1 each MISCELLANE DAILY PRN; Protocol PRN Reason: Per Protocol Naloxone HCl (Naloxone 0.4 Mg/Ml 1 Ml Vial) 0.2 mg IV Q2M PRN PRN Reason: Opioid Reversal Pantoprazole Sodium (Pantoprazole 40 Mg/10 Ml Vial) 40 mg IVP BID [facility] Last Admin: 12/01/22 21:52 Dose: 40 mg Pyridoxine HCl (Pyridoxine 50 Mg Tab) 50 mg PO DAILY [facility] Last Admin: 12/01/22 09:46 Dose: 50 mg Sodium Bicarbonate (Sodium Bicarbonate Tab 650 Mg Tab) 1,300 mg PO TID [facility] Last Admin: 12/01/22 21:52 Dose: 1,300 mg Tamsulosin HCl (Tamsulosin 0.4 Mg Cap.Er.24h) 0.4 mg PO PC-SUPPER [facility] Last Admin: 12/01/22 17:58 Dose: 0.4 mg Thiamine HCl (Thiamine 100 Mg Tab) 100 mg PO DAILY [facility] Last Admin: 12/01/22 09:45 Dose: 100 mg Physical exam: Gen: This is a 62-year-old male awake, alert and oriented 3, well-developed, well-nourished, ill-appearing. Pale HEENT: Head is atraumatic, normocephalic. Pupils equal, round. Sclerae is anicteric. NECK: Supple. No JVD. No lymphadenopathy. No thyromegaly. LUNGS: Breath sounds diminished bilaterally with some scattered rhonchi noted. No intercostal retractions. HEART: S1, S2 are muffled, irregular ABDOMEN: Soft. Mildly tender on palpation. Bowel sounds are present. No masses. EXTREMITIES: No pedal edema. No calf tenderness. Lower extremity edema. Bilateral upper and lower extremity weakness generalized edema noted NEUROLOGICAL: Patient is awake, alert and oriented x3. Cranial nerves 2 through 12 are grossly intact. Diffusely weak Assessment: Acute blood loss anemia. hb 5.9 due to retroperitoneal bleed with hematoma. Hyperkalemia due to GI bleed. Improved Bilateral Pneumonia with superimposed gram-negative bacterial infection is suspected mainly in the right lower lobe. Completed antibiotic course. Recent COVID-19 infection with pneumonia Acute hypoxic respiratory failure. Titrate down to room air.. Sepsis secondary to above Possible discitis as per MRI cervical spine. Hyperkalemia due to urinary retention and acute kidney injury. Improving now. Anemia with vitamin B12 deficiency and currently on IM B12 replacement therapy Elevated troponin, most likely type II. No chest pain, normal LV function Low vitamin B12 and B6 Nonocclusive thrombosis of the left leg status post [place] filter placement Paroxysmal atrial fibrillation no anticoagulation with score of 0 per [employer] DVT prophylaxis; SCDs No code Plan: CT of the abdomen pelvis showed retroperitoneal hemorrhage and intramuscular hematoma. Patient had IVC filter placement by vascular surgery on 11/25/2022 and anticoagulation on hold. Hemoglobin noted to drop again and was given 2 units of packed red blood cells yesterday with a hemoglobin of 7.7 today. GI consulted with plans for EGD/colonoscopy scheduled for a.m. Patient will be nothing by mouth at midnight. Recommend follow-up labs and transfuse if less than 7. Stat CT angiogram ordered of the abdomen and pelvis was obtained with no new acute bleeding noted. Orthopedics following and have canceled plans for cervical intervention until medically stable, will likely be outpatient, orthopedics weaning dexamethasone Nephrology following and Jo catheter was discontinued and maintained on Flomax. Recommend monitoring for retention Patient is being closely monitored off IV antibiotic therapy WBC remains elevated with infectious disease following while off antibiotics and WBC is trending down Recommend repeat labs in the a.m. and will await endoscopic report Due to multiple complex medical issues, prognosis is extremely guarded The impression and plan of care has been dictated by Priscilla Steven, Nurse Practitioner as directed. MD Nuvia I have performed a history and examination and MDM of this patient, discussed the same with the dictator, and agree with the dictator's assessment and plan as written ,documented as a scribe. Based on total visit time, I have performed more than 50% of the visit. Objective - Vital Signs Vital signs: Vital Signs Temp 98.1 F 12/02/22 02:30 Pulse 63 12/02/22 02:30 Resp 17 12/02/22 02:30 BP 119/74 12/02/22 02:30 Pulse Ox 99 12/02/22 02:30 FiO2 Intake & Output 12/01/22 12/01/22 12/02/22 06:59 18:59 06:59 Output Total 1400 100 Balance -1400 -100 Output: Urine 1400 100 Other: Voiding Method External Catheter External Catheter External Catheter # Bowel Movements 1 - Labs CBC & Chem 7: 12/01/22 08:43 11/30/22 05:19 Labs: Abnormal Lab Results - Last 24 Hours (Table) 12/01/22 12/01/22 12/01/22 Range/Units 07:25 08:43 10:10 WBC 18.2 H (3.8-10.6) k/uL RBC 2.42 L (4.30-5.90) m/uL Hgb 7.7 L (13.0-17.5) gm/dL Hct 22.7 L (39.0-53.0) % RDW 19.1 H (11.5-15.5) % Plt Count 101 L (150-450) k/uL Fibrinogen 113 L (200-500) mg/dL POC Glucose (mg/dL) 139 H (70-110) mg/dL 12/01/22 12/01/22 12/01/22 Range/Units 12:07 17:16 19:24 WBC (3.8-10.6) k/uL RBC (4.30-5.90) m/uL Hgb (13.0-17.5) gm/dL Hct (39.0-53.0) % RDW (11.5-15.5) % Plt Count (150-450) k/uL Fibrinogen (200-500) mg/dL POC Glucose (mg/dL) 160 H 147 H 214 H (70-110) mg/dL 12/02/22 Range/Units 05:22 WBC (3.8-10.6) k/uL RBC (4.30-5.90) m/uL Hgb (13.0-17.5) gm/dL Hct (39.0-53.0) % RDW (11.5-15.5) % Plt Count (150-450) k/uL Fibrinogen (200-500) mg/dL POC Glucose (mg/dL) 124 H (70-110) mg/dL
[2022-12-02] MEDS: INSULIN DETEMIR (LEVEMIR) 100 UNIT/ML SYR SQ SCH (08:30)
[2022-12-02] MEDS: DILTIAZEM ORAL 30 MG TAB PO SCH ×3 (08:31→22:21)
[2022-12-02] MEDS: PYRIDOXINE 50 MG TAB PO SCH (08:32)
[2022-12-02] MEDS: CHOLECALCIFEROL 25 MCG (1000 IU) TABLET PO SCH (08:32)
[2022-12-02] MEDS: CALCIUM CARBONATE 500 MG CHEWABLE PO SCH ×3 (08:32→20:36)
[2022-12-02] MEDS: SODIUM BICARBONATE TAB 650 MG TAB PO SCH ×3 (08:32→20:37)
[2022-12-02] MEDS: CYANOCOBALAMIN 500 MCG TAB PO SCH (08:33)
[2022-12-02] MEDS: THIAMINE 100 MG TAB PO SCH (08:33)
[2022-12-02] MEDS: PANTOPRAZOLE 40 MG/10 ML VIAL IVP SCH ×2 (08:33→20:36)
[2022-12-02] MEDS: ASCORBIC ACID 500 MG TAB PO SCH ×2 (08:33→20:37)
[2022-12-02] MEDS: FUROSEMIDE 40 MG TAB PO SCH (08:33)
[2022-12-02] MEDS: FLUoxetine HCL 20 MG CAP PO SCH (08:34)
[2022-12-02] MEDS: FOLIC ACID 1 MG TAB PO SCH (08:34)
[2022-12-02] MEDS: MAGNESIUM OXIDE 400 MG TAB PO SCH (08:34)
[2022-12-02 08:51] LABS: African American GFR (CKD) 93.1 (60.0-200.0); BUN/Creat Ratio 52.4 Ratio (12.00-20.00); Blood Urea Nitrogen 52.4 mg/dL (9.0-27.0); Calcium 7.4 mg/dL (8.7-10.3); Non-African American GFR(CKD) 80.3 (60.0-200.0); Potassium 4.7 mmol/L (3.5-5.5)
[2022-12-02] MEDS: CHOLESTYRAMINE (WITH SUGAR) 4 GM PACKET PO SCH ×2 (11:23→18:01)
[2022-12-02 11:40] LABS: HCT 18.4 % (39.6-50.0); HGB 5.9 g/dL (13.0-17.0); MCH 31.4 pg (27.0-32.0); MCHC 32.1 g/dL (32.0-37.0); MCV 97.9 fL (80.0-97.0); Mean Platelet Volume 11.4 fL (9.5-12.2); NRBC Per 100 WBC 0 /100 WBCS (0.0-0.0); Platelet Count 86 X 10*3/uL (140-440); RBC 1.88 X 10*6/uL (4.40-5.60); RDW 19.9 % (11.5-14.5); WBC 17.81 X 10*3/uL (4.50-10.00)
[2022-12-02 12:10] LABS: Glucose,Whole Blood 135 mg/dL (70-110)
--- NOTE | 2022-12-02 14:47 | P.PN ---
Subjective Progress Note Date: 12/02/22 Principal diagnosis: Anemia, GI bleed 62-year-old gentleman who initially presented to the hospital secondary to diarrhea and found to be covid positive. Gastroenterology was initially consulted at that time for diarrhea and anemia. Diarrhea had been improving, and there was no reported black stool or blood in his stool at that time. Hematology was consulted for anemia believed secondary to virus. He then developed weakness in all 4 extremities and was being evaluated by orthospine and was scheduled to have surgical intervention first on his cervical spine then lumbar spine later in the week. He does have a history of DVT and has been on IV heparin for his clots with the plan of stopping heparin for the surgery. Last week he was noted to have a drop in his hemoglobin and complains of some abdominal discomfort and ultimately underwent a CT angiogram that demonstrated a large intramuscular hematoma in the left iliac is muscle in the retroperitoneum. Due to this large retroperitoneal hematoma as well as his DVT vascular surgery was consulted for IVC filter placement that patient underwent on 11/25/2022. His hemoglobin had stabilized however yesterday he had a drop in his hemoglobin to 5.5. Nursing reported loose black bowel movements yesterday and today. Has bruising along his left flank has not increased in size. He has no palpable hematoma in the abdomen or flank. Hs currently receiving 2 units of blood. He denies any shortness of breath, chest pain, abdominal pain, nausea or vomiting. Denies any fevers chills or body aches. Still has weakness in his upper and lower extremities. Orthospine still following patient closely. Vascular surgery had been also very consulted for concern for possibility of bleed from retroperitoneal and left iliac muscle hematoma. CT angiogram of the abdomen completed that showed no active bleed and actual improvement in the hematoma. Patient had positive occult stool. He currently denies any abdominal pain nausea or vomiting. Has still had some black stools. He received 2 units of blood yesterday with a repeat hemoglobin today of 7.7. Patient is actually scheduled for outpatient colonoscopy on 12/08/[address] Lundberg. 12/02/2022: Patient seen and examined today as follow-up. He was scheduled for EGD and colonoscopy however nursing did not administer all of his prep. Patient still having formed brown stool this morning. EGD colonoscopy canceled and rescheduled for tomorrow. He denies any abdominal pain nausea or vomiting at this time. Patient had a drop in his hemoglobin of 5.9, 1 unit of blood ordered. Hematology following, ordered DIC labs as well as hemolysis workup every ordered. Objective - Vital Signs Vital signs: Vital Signs Temp 97.8 F 12/02/22 14:20 Pulse 64 12/02/22 14:20 Resp 16 12/02/22 14:20 BP 107/73 12/02/22 14:20 Pulse Ox 95 12/02/22 14:20 FiO2 Intake & Output 12/01/22 12/02/22 12/02/22 18:59 06:59 18:59 Intake Total 0 Output Total 100 Balance -100 0 Intake: Blood Product 0 Unit 0 Output: Urine 100 Other: Voiding Method External Catheter External Catheter Bedpan Diaper # Bowel Movements 1 - Exam General appearance: The patient is alert, oriented, appears in no acute distress. HET: Head is normocephalic and atraumatic. Conjunctiva pink. Sclera anicteric. Neck: Supple without lymphadenopathy. Abdomen: Soft, nontender, nondistended with bowel sounds. No guarding or rigidity. Extremities: Normal skin color and turgor. Bilateral upper and lower extremity edema, generalized anasarca. Skin: No rashes, no jaundice Neurological: Alert and oriented. - Labs CBC & Chem 7: 12/02/22 06:07 12/02/22 06:07 Labs: Abnormal Lab Results - Last 24 Hours (Table) 11/30/22 12/01/22 12/01/22 Range/Units 11:40 17:16 19:24 WBC (4.50-10.00) X 10*3/uL RBC (4.40-5.60) X 10*6/uL Hgb (13.0-17.0) g/dL Hct (39.6-50.0) % MCV (80.0-97.0) fL RDW (11.5-14.5) % Plt Count (140-440) X 10*3/uL Fibrinogen (200-500) mg/dL Sodium (135-145) mmol/L Anion Gap (10.00-18.00) mmol/L BUN (9.0-27.0) mg/dL BUN/Creatinine Ratio (12.00-20.00) Ratio POC Glucose (mg/dL) 147 H 214 H (70-110) mg/dL Calcium (8.7-10.3) mg/dL Crossmatch See Detail 12/02/22 12/02/22 12/02/22 Range/Units 05:22 06:07 06:07 WBC 17.81 H (4.50-10.00) X 10*3/uL RBC 1.88 L (4.40-5.60) X 10*6/uL Hgb 5.9 L* (13.0-17.0) g/dL Hct 18.4 L* (39.6-50.0) % MCV 97.9 H (80.0-97.0) fL RDW 19.9 H (11.5-14.5) % Plt Count 86 L (140-440) X 10*3/uL Fibrinogen (200-500) mg/dL Sodium 134 L (135-145) mmol/L Anion Gap 6.00 L (10.00-18.00) mmol/L BUN 52.4 H (9.0-27.0) mg/dL BUN/Creatinine Ratio 52.40 H (12.00-20.00) Ratio POC Glucose (mg/dL) 124 H (70-110) mg/dL Calcium 7.4 L (8.7-10.3) mg/dL Crossmatch 12/02/22 12/02/22 Range/Units 06:07 12:09 WBC (4.50-10.00) X 10*3/uL RBC (4.40-5.60) X 10*6/uL Hgb (13.0-17.0) g/dL Hct (39.6-50.0) % MCV (80.0-97.0) fL RDW (11.5-14.5) % Plt Count (140-440) X 10*3/uL Fibrinogen 123 L (200-500) mg/dL Sodium (135-145) mmol/L Anion Gap (10.00-18.00) mmol/L BUN (9.0-27.0) mg/dL BUN/Creatinine Ratio (12.00-20.00) Ratio POC Glucose (mg/dL) 135 H (70-110) mg/dL Calcium (8.7-10.3) mg/dL Crossmatch Assessment and Plan (1) Normocytic normochromic anemia Narrative/Plan: 62-year-old male who presented to the emergency department with diarrhea and tested positive for COVID-19 infection presented with anemia. Hemoglobin continually dropped throughout his hospital stay requiring now u6 nits of blood transfusion. Hematology had been following a believes likely related to underlying virus, anemia of inflammation and history of gastric bypass, as well as possible component of liver disease from alcoholism causing some bone marrow suppression. Patient initially did not have any signs or symptoms of GI bleed. No prior history of EGD or colonoscopy. During this hospitalization he was started on a heparin drip for previous DVT in acute DVT. During that time he was noted to have a drop in his hemoglobin. He had some abdominal discomfort and was noted to have a large intramuscular hematoma of the left iliac muscle and additional retroperitoneal hematoma. Anticoagulation was held and patient underwent IVC filter placement by vascular surgery. Yesterday he again had a drop in his hemoglobin of 5.5 with reported black loose stools for the last 2 days duration. Occult stool was positive, concern for possible GI bleed. Recommend proceeding with upper and lower endoscopy. EGD colonoscopy rescheduled for 12/03/2022 as patient did not complete his bowel prep. Current Visit: Yes Status: Acute Priority: High Code(s): D64.9 - ANEMIA, UNSPECIFIED SNOMED Code(s): 59575946 (2) Fecal occult blood test positive Current Visit: Yes Status: Acute Code(s): R19.5 - OTHER FECAL ABNORMALITIES SNOMED Code(s): 11488258 (3) COVID-19 Current Visit: Yes Status: Acute Priority: High Code(s): U07.1 - COVID-19 SNOMED Code(s): 463958566 (4) Diarrhea Current Visit: Yes Status: Acute Priority: High Code(s): R19.7 - DIARRHEA, UNSPECIFIED SNOMED Code(s): 06957529 (5) Left leg DVT Current Visit: Yes Status: Acute Priority: High Code(s): I82.402 - ACUTE EMBOLISM AND THOMBOS UNSP DEEP VEINS OF L LOW EXTREM SNOMED Code(s): 346558951 Plan: 1. Continue symptomatic and supportive care 2. Daily CBC, transfuse for hemoglobin less than 7 3. Continue to hold anticoagulation 4. Clear liquid diet, nothing by mouth after midnight 5. Patient re-scheduled for EGD colonoscopy tomorrow 6. Protonix 40 mg twice a day for GI prophylaxis 7. Continue with recommendations/workup from hematology Thank you for this consultation, we will continue to follow. Dr. Radha Lundberg I agree with the dictator's note, documented as a scribe by Sarah Oconnor.
--- NOTE | 2022-12-02 14:52 | P.PN ---
Subjective Progress Note Date: 12/02/22 The patient was following-up with Dr. Blankenship last week but was last seen by me on 11/21/2022. It appears the patient has acute anemia as low as 5.5 on 11/30/22 then received blood transfusion and today is back low to 5.9. He was suppose to have Endoscopy and colonoscopy but is being postponed till tomorrow since he did not receive the prep. Otherwise he feels his strength is improving compared to initial presentation. Objective - Vital Signs Vital signs: Vital Signs Temp 97.8 F 12/02/22 14:20 Pulse 64 12/02/22 14:20 Resp 16 12/02/22 14:20 BP 107/73 12/02/22 14:20 Pulse Ox 95 12/02/22 14:20 FiO2 Intake & Output 12/01/22 12/02/22 12/02/22 18:59 06:59 18:59 Intake Total 0 Output Total 100 Balance -100 0 Intake: Blood Product 0 Unit 0 Output: Urine 100 Other: Voiding Method External Catheter External Catheter Bedpan Diaper # Bowel Movements 1 - Exam GENERAL: The patient is laying in bed and is in minimal to mild acute distress. NEUROLOGICAL: Higher mental function: The patient is awake, alert, oriented to self, place and time. Patient is following simple commands. No aphasia and no neglect. Cranial nerves: The pupils are round, equal and reactive to light and accommodation. Visual elder are full to confrontation throughout. Extraocular movement is intact no nystagmus is noted. Facial sensation is normal to touch throughout. The facial strength is normal throughout. Tongue is midline and moved [id number] without any difficulty. No dysarthria is noted. Shoulder shrug is normal bilaterally. Motor: Muscle strength testing reveals (right/left) deltoid 3-/4, biceps 4+5-/5-, triceps 4+5-/5 5-, news cameraman 5-/5-, hip flexion 4+/2, knee extension 5/4-, ankle dorsiflexion 5/5, plantarflexion 5/5. Sensation: Sensation is normal to touch throughout. Reflexes (right/left): 0 throughout. Plantars are mute bilaterally. - Labs CBC & Chem 7: 12/02/22 06:07 12/02/22 06:07 Labs: Abnormal Lab Results - Last 24 Hours (Table) 11/30/22 12/01/22 12/01/22 Range/Units 11:40 17:16 19:24 WBC (4.50-10.00) X 10*3/uL RBC (4.40-5.60) X 10*6/uL Hgb (13.0-17.0) g/dL Hct (39.6-50.0) % MCV (80.0-97.0) fL RDW (11.5-14.5) % Plt Count (140-440) X 10*3/uL Fibrinogen (200-500) mg/dL Sodium (135-145) mmol/L Anion Gap (10.00-18.00) mmol/L BUN (9.0-27.0) mg/dL BUN/Creatinine Ratio (12.00-20.00) Ratio POC Glucose (mg/dL) 147 H 214 H (70-110) mg/dL Calcium (8.7-10.3) mg/dL Crossmatch See Detail 12/02/22 12/02/22 12/02/22 Range/Units 05:22 06:07 06:07 WBC 17.81 H (4.50-10.00) X 10*3/uL RBC 1.88 L (4.40-5.60) X 10*6/uL Hgb 5.9 L* (13.0-17.0) g/dL Hct 18.4 L* (39.6-50.0) % MCV 97.9 H (80.0-97.0) fL RDW 19.9 H (11.5-14.5) % Plt Count 86 L (140-440) X 10*3/uL Fibrinogen (200-500) mg/dL Sodium 134 L (135-145) mmol/L Anion Gap 6.00 L (10.00-18.00) mmol/L BUN 52.4 H (9.0-27.0) mg/dL BUN/Creatinine Ratio 52.40 H (12.00-20.00) Ratio POC Glucose (mg/dL) 124 H (70-110) mg/dL Calcium 7.4 L (8.7-10.3) mg/dL Crossmatch 12/02/22 12/02/22 Range/Units 06:07 12:09 WBC (4.50-10.00) X 10*3/uL RBC (4.40-5.60) X 10*6/uL Hgb (13.0-17.0) g/dL Hct (39.6-50.0) % MCV (80.0-97.0) fL RDW (11.5-14.5) % Plt Count (140-440) X 10*3/uL Fibrinogen 123 L (200-500) mg/dL Sodium (135-145) mmol/L Anion Gap (10.00-18.00) mmol/L BUN (9.0-27.0) mg/dL BUN/Creatinine Ratio (12.00-20.00) Ratio POC Glucose (mg/dL) 135 H (70-110) mg/dL Calcium (8.7-10.3) mg/dL Crossmatch Assessment and Plan Assessment: * Acute COVID infection with severe diarrhea for around 7-10 days [employer]. * Cervical spinal stenosis C5-C6 level, spondylolisthesis C3-C4, degenerative changes, worse at C6-C7 per MRI. * Osteo-discitis at L3-L4 level * Generalized weakness, slightly asymmetric. Etiology possibly multifactorial, most likely related to above, but probably also contributed by electrolyte imbalance, with hypokalemia, hyponatremia, hypocalcemia, hypomagnesemia, copper deficiency, B12 and B6 deficiency. * Acute anemia * DVT left lower extremity, status post placement of IVC filter. * Status post Retroperitoneal hematoma * Vitamin B12 deficiency * Vitamin B6 deficiency * Copper deficiency * Paroxysmal atrial fibrillation * DVT in the left lower extremity * Alcoholism Plan: Patient's muscle strength seems to have improved slightly as compared to initial presentation. But continues to be weak. * MRI of the cervical spine revealed significantly limited study secondary to motion. Within the limitation, there is at least moderate spinal canal stenosis at C5 6. Multilevel neural foraminal stenosis. Grade 1 anterolisthesis of C3 on C4. Degeneration changes worse at C6-C7 with the joint place edema. Orthopedic surgery input appreciated. * MRI of the lumbar is reported as no new bone structure. Stable alignment. Increased T2 signal and disc or suspected edema is less prominent from prior study. No definitive abnormal osseous and has been suggest persistent acute active osteomyelitis. No new focal fluid collection or abscess seen. Finding consistent with improving infection and degenerative changes. * MRI of the thoracic spine is reported as multilevel degenerative disc disease with disc protrusion and ventral cord contact at T7-T8 * Patient has evidence of vitamin B12 deficiency with B12 226 and elevated methylmalonic acid 0.51. Patient started on vitamin B12 1000 g IM daily. He has received B12 injections since then. We will decrease to vitamin B12 1000 g orally daily. * Hematology has seen the patient, ordered blood testing. * CPK < 20, vitamin B6 very low 2. Patient was started on vitamin B6 50 mg twice a day by Dr. Greene. We will decrease to 50 mg once a day. B1 69, TSH normal. Folate 21.2. Serum protein electrophoresis and immunofixation electrophoresis showed no paraproteinemia * For copper deficiency, would defer to hematology. * Recommend EMG with NCS of uppers and lowers as outpatient to rule out any neuropathy. * Patient also had an episode of paroxysmal atrial fibrillation. Cardiology has seen the patient, not recommending anticoagulation. However after DVT patient was started on heparin drip. Patient has not developed retroperitoneal hematoma. Surgery following. All anticoagulation on hold. Pending endoscopy and colonoscopy. * 2-D echo revealed left ventricular hypertrophy with normal left-ventricular systolic function with EF 55%. No obvious regional wall motion abnormalities. Left atrial size is normal. Mild to moderate mitral regurgitation. * PT, OT, evaluate gait. Plan is discussed with patient and his nurse. Will follow-up with patient sporadically. Time with Patient: Less than 30
[2022-12-02 17:29] LABS: Glucose,Whole Blood 111 mg/dL (70-110)
[2022-12-02] MEDS: TAMSULOSIN 0.4 MG CAP.ER.24H PO SCH (18:01)
[2022-12-02] MEDS: MELATONIN 3 MG TABLET PO SCH (20:37)
[2022-12-02 20:57] LABS: Glucose,Whole Blood 150 mg/dL (70-110)
--- NOTE | 2022-12-03 04:57 | P.PN ---
Subjective Progress Note Date: 12/02/22 Paroxysmal atrial fibrillation Intractable nausea/vomiting/diarrhea Profound hypokalemia Acute renal injury COVID-19 infection 62-year-old male in the emergency department for diarrhea. She notes diarrhea starting and he asked progressively gotten worse. He reports he stood up from a chair and had an episode of diarrhea, admits he still maintains bowel function. He has not tried anything for his symptoms. He denies nausea, vomiting, abdominal pain, palpitations, fevers. Denies recent travel or recent antibiotic use. He is scheduled to have his first colonoscopy in january of 2023. Patient had an initial lab work is remarkable for WBC is 11.4, hemoglobin 8.7, INR 1.2, sodium 133, potassium 2.6 lactic acid 2.9, calcium 6.3, magnesium 0.8, lipase 60, COVID positive. I interpreted the following; CT abdomen without contrast remarkable for fluid filled colon without focal wall thickening or surrounding inflammatory changes. Patient was given 2 L fluids, potassium, magnesium and calcium during his course of the ED. 11/08/2022 Patient is seen and evaluated on selective care unit; he went into atrial fibrillation with rapid ventricular response he was transferred to the third floor/selective minute. The patient did not have any symptoms of heart racing or fluttering and no dizziness or lightheadedness and no presyncope or syncope and no symptoms of chest pain or chest discomfort or shortness of breath. No prior history of atrial fibrillation. No history of coronary artery disease or congestive heart failure or cardiac arrhythmia and the patient never seen a principal statistical scientist in the past. Beside that no history of diabetes or hypertension or dyslipidemia. The patient was started initially on Cardizem drip but his pressure did go down and for that reason he was switched into amiodarone IV and subsequently converted to normal sinus mechanism and since then he has been maintaining normal sinus mechanism. Further investigation was performed including CBC and that showed a hemoglobin of 7.7. The patient has no history of bleeding. B eside that he underwent a computed tomography scan of the abdomen and pelvis because of the abdominal discomfort that showed no acute abnormalities. The troponin came in to be slightly elevated likely secondary to tachycardia. The EKG showed sinus rhythm now with no significant ST or T-wave abnormalities. Blood work reveals mild elevation of troponin; Patient has been evaluated by cardiology and recommended to continue with IV fluids, replace electrolytes; IV amiodarone is to be discontinued patient is transition to oral dose daily 11/09/2022 Patient is seen and evaluated in follow-up this morning and continues to feel generalized weakness and continues with loose stools. Per nursing staff when assisting to clean the patient up patient was significantly weak on the right. Patient denied any headache, dizziness, or lightheadedness. Will obtain a CT of the brain and also consult neurology. Recommend PT/OT therapy evaluation for significant weakness. C. diff testing was negative on the stool and will add Imodium and encourage oral intake and advance as tolerated. Patient is ma intaining on vitamins and zinc supplements along with subcutaneous heparin with anxiety following closely. Patient denies chest pain or shortness of breath. Afebrile. Recommend a.m. labs as well. 11/10/2022 Patient is seen in follow-up today with multiple medical consultations including cardiology, hematology, infectious disease, and now neurology following. Patient with significant weakness in all upper and lower extremities with neurology undergoing workup recommending aspirin as patient is not on any anticoagulation at this time. Cardiology is following and patient was transitioned back to IV Cardizem although being changed to oral with close monitoring. Magnesium found to be significantly low at 1.2 and will replace per protocol and recommend repeat labs. Hemoglobin is mildly low at 7.4 and undergoing anemia workup with hematology following. Patient with Covid and extreme weakness will need ECF and discharge planning in process. Recommend close monitoring of labs and replace electrolytes per protocol. Patient was started on Imodium as C. diff testing 2 was negative. Patient continues to have loose stools although somewhat improved. Encouraged oral intake and incr eased activity as tolerated. Recommend PT/OT therapy daily. Patient denies chest pain or shortness of breath. Patient is 97% on room air. Patient will continue on vitamin and zinc supplements with anxiety following closely. Recommend gentle IV hydration. 11/11/2022 Patient is seen and evaluated in follow-up with multiple medical consultations following including infectious disease and neurology. Oncology following undergoing anemia workup. Hemoglobin was found to be 6.5 today and will order 1 unit of PRBC and recommend close monitoring. No active bleeding noted. Patient was started on baby aspirin per neurology and scheduled to undergo MRI of the cervical spine today. Patient continues with significant weakness and will need rehab upon discharge. Patient is maintained on vitamin and zinc supplements and was also being followed by cardiology. Adjustments to medications being done and patient is on oral Cardizem. Will follow-up with repeat labs. Patient is afebrile and denies shortness of breath. Patient clinically appears to be improving. Per nursing staff patient is incontinent of stool in continues to be somewhat loose although less frequent. C. diff testing was negative and stool cultures are negative. Encouraged oral intake. Will discuss with case management about discharge planning to ECF as he will require a Covid hub. 11/12/2022 Patient is seen and evaluated in follow-up today with multiple medical consultations following including infectious disease, cardiology, neurology. Patient's hemoglobin is low again at 6.8 and will give 1 unit. Recommend holding aspirin. Patient did have an elevated d-dimer and CTA was ordered. GI was also consulted for anemia. Patient continues to have incontinence of stool and loose stools and is maintained on Questran and will be given Imodium as needed. Patient continues with generalized weakness and fatigue and also having some lower extremity pain and swelling and have ordered Dopplers of bilateral lo wer extremities as well. Patient with Covid vitamin and zinc supplements and anticoagulation with subcu heparin. Hematology also following for anemia. Recommend repeat CBC this evening and will transfuse another unit as well. Cardiology following and adjustments to medications being made and patient also being started on low-dose diuretics. Patient is having low-grade temps of 99.3- 99.6 and patient continues to be 95% or above on room air. Blood pressure on the lower side although stable. Stool cultures and C. diff testing have been negative. Patient started on antibiotics per ID recommendations in the form of Zithromax and ceftriaxone. Reviewed iron studies which are low and will give IV iron as well. Electrolytes continue to be low and will replace per protocol. Patient will need ECF once stabilized and discharged 11/13/2022 Patient is seen today with multiple medical consultations following and undergoing neurological workup and having bilateral upper and lower extremity weakness. Neurology recommends orthopedic consultation which is currently pending. Patient did have some movement in his diarrhea and reports becoming more formed and less frequent. Patient continues to be incontinent of this. Patient being started on antibiotics with anxiety following an also continues to have anemia. GI recommending continuing with hematology workup. Multiple images including MRIs and pending at time. Patient with significant weakness will be going to rehab when stable. A.m. labs are pending. 11/24/2022 Patient is currently resting in the bed. Awake alert and oriented x3. No complaints of chest pain or shortness of breath. Left lower abdominal discomfort is improved. Hemoglobin is stable. Vascular surgery has seen the patient is planning for IVC filter placement. Heparin is on hold due to retroperitoneal bleed. Laboratory data showed WBC 25.6 hemoglobin 7.1 and platelets 159 sodium 131 potassium 5.7 chloride 112 bicarb is 37 creatinine 1.18 and calcium 7.0. Nephrology, ID and vascular surgery is on board. 11/25/2022 Patient is currently resting in bed. Awake alert and oriented x3. On room air. No complaints of chest pain or shortness of breath. No abdominal pain. No nausea vomiting abdominal pain or diarrhea. Patient is scheduled for IVC filter placement today. Otherwise hemoglobin level is 6.8 and 1 unit of PRBC was ordered. Other laboratory data showed WBC 20.6 hemoglobin 6.8 and platelets 149 sodium 135 potassium 5.4 chloride 101 bicarb is 23 BUN 34 and creatinine 1.25. Magnesium 1.6. Patient is being continued dexamethasone as per orthopedic surgery. Also on IV Lasix. Nephrology and general surgery is on board. Patient was given a dose of Lokelma yesterday. 11/26/2022 Patient is currently resting in bed. Awake alert and oriented x3. No complaints of back pain or abdominal pain. No nausea vomiting abdominal pain or diarrhea. No cough or sputum production. Currently on room air. Patient is status post IVC filter placement on 11/25/2022. Patient received 1 unit of PRBC yesterday and hemoglobin improved to 7.6 today. Level data showed WBC 22.3 hemoglobin 7.6 and platelets 141 sodium 136 potassium 5.3 chloride 101 bicarb is 23 BUN 32 and creatinine 1.23 and blood sugar is 125 and calcium 7.2. Magnesium 1.9. Follow-up CBC and BMP was ordered. Orthopedic surgery is planning for OR when medically stable tomorrow. 11/28/2022 Patient is seen and evaluated in follow-up and apparently orthopedics is scheduled for surgical intervention is patient is unstable. Recommending awaiting medical clearance. Infectious disease following and patient is being maintained and monitored closely of IV antibiotic therapy. Patient is status post Raven filter placement any stable. No active bleeding noted. General surgery following for hematoma on the back with no surgical interventions planned. Patient with significant weakness recommend PT/OT therapy and will discuss with case management about discharge planning and ECF. Recommend follow-up labs in the a.m. she is currently afebrile denies chest pain or shortness of breath. He stable. No active bleeding noted. Patient is tolerating diet with no reports of nausea or vomiting noted. 11/29/2022 Patient was seen in follow-up this morning with orthopedics along with infectious disease, nephrology, general surgery, hematology following. Vital signs of been stable patient is continued on dexamethasone per orthopedics and will discuss about weaning parameters. Patient is also maintained off of antibiotics. Patient was significant weakness recommend PT/OT therapy and rehab on discharge. Patient continues to have elevated white blood count is infectious disease following and repeat inflammatory markers ordered. Patient is afebrile denies chest pain or shortness of breath. 11/30/2022 Patient is seen and evaluated in follow-up today with multiple medical consultations following. Hemoglobin was found to be critically low at 5.5 with a hematocrit of 17.6 and awaiting to receive 2 units of blood. Patient is status post IVC filter this admission as he was having anemia with acute on chronic DVT of the left proximal vein and also found to have a large intramuscular hematoma of the left iliac muscle, retroperitoneal hematoma. Gen. surgery services following as well. Patient also noted be having black tarry stools and will reconsult GI as we have services available tomorrow. Patient was having some abdominal discomfort and will obtain CT angiogram and evaluate for bleeding. Orthopedics following and were initially discussing surgical intervention of the lower spine although on hold as patient is not medically stable for surgical intervention at this time. Patient is maintained on IV dexamethasone and being weaned per orthopedics. Patient continues with significant weakness and bilateral foot drop and inability to ambulate and generalized edema noted throughout. Patient is maintained on oral Lasix and will give a dose of IV Lasix posttransfusion and follow-up with repeat labs this evening. Patient is afebrile denies chest pain or shortness of breath. Patient is frustrated and appears depressed. Patient denies any suicidal thoughts or wanting to harm himself or others. 12/01/2022 Patient is seen and evaluated in follow-up this morning hemoglobin post 2 units of packed red blood cells was 7.7. CT angiogram abdomen and pelvis was negative for any acute bleeding and GI was placed on consult with patient being scheduled for EGD/colonoscopy. Patient is afebrile denies chest pain or shortness of breath. Patient is tolerating diet with no reports of nausea vomiting noted. Orthopedics following as well and no plans for immediate interventions at this time until patient is more stable. No reports of chest pain or shortness of breath patient is sitting up in the bed on room air. Will follow-up with repeat labs. 12/02/2022 Patient is seen and evaluated this morning currently sitting up in the bed with family at the bedside. Patient was tentatively scheduled for EGD/colonoscopy although did not complete the prep still having formed brown stools continue with bowel prep and scheduled for EGD/colonoscopy in the a.m. Repeat labs reveal hemoglobin of 5.9 and will transfuse recommend follow-up labs. Patient is afebrile with no reports of nausea or vomiting noted. Patient denies chest pain or shortness of breath. Hematology following as well undergoing further workup for anemia. Review of systems: Constitutional: No reports of fatigue, no fever, or chills Cardiovascular: No reports of chest pain or palpitations Respiratory: No reports of shortness of breath or cough GI: No reports of nausea, vomiting, reports semi-formed brown stools : No reports of dysuria or retention Neurovascular: reports of generalized weakness All medications have been reviewed Active Medications Acetaminophen (Acetaminophen Tab 325 Mg Tab) 650 mg PO Q6HR PRN PRN Reason: Mild Pain or Fever > 100.5 Last Admin: 11/23/22 05:38 Dose: 650 mg Ascorbic Acid (Ascorbic Acid 500 Mg Tab) 500 mg PO BID [facility] Last Admin: 12/02/22 20:37 Dose: 500 mg Calcium Carbonate/Glycine (Calcium Carbonate 500 Mg Chewable) 500 mg PO TID [facility] Last Admin: 12/02/22 20:36 Dose: 500 mg Cholecalciferol (Cholecalciferol 25 Mcg (1000 Iu) Tablet) 50 mcg PO DAILY [facility] Last Admin: 12/02/22 08:32 Dose: 50 mcg Cholestyramine Resin (Cholestyramine (With Sugar) 4 Gm Packet) 4 gm PO B ID@1000,1800 [facility] Last Admin: 12/02/22 18:01 Dose: 4 gm Cyanocobalamin (Cyanocobalamin 500 Mcg Tab) 1,000 mcg PO DAILY [facility] Last Admin: 12/02/22 08:33 Dose: 1,000 mcg Dexamethasone Sodium Phosphate (Dexamethasone Sod Phosphate 4 Mg/Ml 1 Ml Vial) 2 mg IVP Q8HR [facility] Last Admin: 12/02/22 22:26 Dose: 2 mg Dextrose/Water (Dextrose 50% Syringe 50 Ml) 25 ml IVP PER PROTOCOL PRN; Protocol PRN Reason: Hypoglycemia Dextrose/Water (Dextrose 50% Syringe 50 Ml) 50 ml IVP PER PROTOCOL PRN; Socrates col PRN Reason: Hypoglycemia Diclofenac Sodium (Diclofenac Sodium Gel 100 Gm Tube) 2 gm TOPICAL QID PRN; Protocol PRN Reason: Pain Diltiazem HCl (Diltiazem Oral 30 Mg Tab) 30 mg PO TID [facility] Last Admin: 12/02/22 22:21 Dose: 30 mg Fluoxetine HCl (Fluoxetine Hcl 20 Mg Cap) 20 mg PO DAILY [facility] Last Admin: 12/02/22 08:34 Dose: 20 mg Folic Acid (Folic Acid 1 Mg Tab) 0.5 mg PO DAILY [facility] Last Admin: 12/02/22 08:34 Dose: 0.5 mg Furosemide (Furosemide 40 Mg Tab) 40 mg PO DAILY [facility] Last Admin: 12/02/22 08:33 Dose: 40 mg Furosemide (Furosemide 10 Mg/Ml 4 Ml Vial) 40 mg IV ONCE PRN PRN Reason: Edema Last Admin: 11/30/22 18:04 Dose: 40 mg Insulin Aspart (Insulin Aspart (Novolog) 100 Unit/Ml Vial) 0 unit SQ [facility]; Protocol Last Admin: 12/02/22 20:49 Dose: Not Given Insulin Detemir (Insulin Detemir (Levemir) 100 Unit/Ml Syr) 10 unit SQ DAILY@0700 [facility] Last Admin: 12/02/22 08:30 Dose: Not Given Levothyroxine Sodium (Levothyroxine 50 Mcg Tab) 50 mcg PO DAILY@0630 [facility] Last Admin: 12/02/22 06:16 Dose: 50 mcg Loperamide HCl (Loperamide 2 Mg Cap) 2 mg PO QID PRN PRN Reason: Diarrhea Last Admin: 11/12/22 09:47 Dose: 2 mg Magnesium Oxide (Magnesium Oxide 400 Mg Tab) 400 mg PO DAILY [facility] Last Admin: 12/02/22 08:34 Dose: 400 mg Melatonin (Melatonin 3 Mg Tablet) 3 mg PO HS [facility] Last Admin: 12/02/22 20:37 Dose: 3 mg Miscellaneous Information (Magnesium Replacement Protocol 1 Each Misc) 1 each MISCELLANE DAILY PRN; Protocol PRN Reason: Per Protocol Naloxone HCl (Naloxone 0.4 Mg/Ml 1 Ml Vial) 0.2 mg IV Q2M PRN PRN Reason: Opioid Reversal Pantoprazole Sodium (Pantoprazole 40 Mg/10 Ml Vial) 40 mg IVP BID [facility] Last Admin: 12/02/22 20:36 Dose: 40 mg Pyridoxine HCl (Pyridoxine 50 Mg Tab) 50 mg PO DAILY [facility] Last Admin: 12/02/22 08:32 Dose: 50 mg Sodium Bicarbonate (Sodium Bicarbonate Tab 650 Mg Tab) 1,300 mg PO TID [facility] Last Admin: 12/02/22 20:37 Dose: 1,300 mg Tamsulosin HCl (Tamsulosin 0.4 Mg Cap.Er.24h) 0.4 mg PO PC-SUPPER [facility] Last Admin: 12/02/22 18:01 Dose: 0.4 mg Thiamine HCl (Thiamine 100 Mg Tab) 100 mg PO DAILY [facility] Last Admin: 12/02/22 08:33 Dose: 100 mg Physical exam: Gen: This is a 62-year-old male awake, alert and oriented 3, well-developed, well-nourished, ill-appearing. Pale HEENT: Head is atraumatic, normocephalic. Pupils equal, round. Sclerae is anicteric. NECK: Supple. No JVD. No lymphadenopathy. No thyromegaly. LUNGS: Breath sounds diminished bilaterally with some scattered rhonchi noted. No intercostal retractions. HEART: S1, S2 are muffled, irregular ABDOMEN: Soft. Mildly tender on palpation. Bowel sounds are present. No masses. EXTREMITIES: No pedal edema. No calf tenderness. Lower extremity edema. Bilateral upper and lower extremity weakness generalized edema noted NEUROLOGICAL: Patient is awake, alert and oriented x3. Cranial nerves 2 through 12 are grossly intact. Diffusely weak Assessment: Acute blood loss anemia. hb 5.9 due to retroperitoneal bleed with hematoma. Hyperkalemia due to GI bleed. Improved Bilateral Pneumonia with superimposed gram-negative bacterial infection is suspected mainly in the right lower lobe. Completed antibiotic course. Recent COVID-19 infection with pneumonia Acute hypoxic respiratory failure. Titrate down to room air.. Sepsis secondary to above Possible discitis as per MRI cervical spine. Hyperkalemia due to urinary retention and acute kidney injury. Improving now. Anemia with vitamin B12 deficiency and currently on IM B12 replacement therapy Elevated troponin, most likely type II. No chest pain, normal LV function Low vitamin B12 and B6 Nonocclusive thrombosis of the left leg status post Tali filter placement Paroxysmal atrial fibrillation no anticoagulation with score of 0 per Facility Technician DVT prophylaxis; SCDs No code Plan: Recommend to continue current medications and management with multiple medical consultations following. Hemoglobin 5.9 today and will transfuse 1 unit of PRBC and currently undergoing bowel prep this patient failed to complete bowel prep last night and is being scheduled for EGD/colonoscopy with GI following possibly tomorrow if prep was completed Orthopedics following as needed and awaiting surgical intervention until more stable. Will follow-up with repeat labs and continue to monitor closely Recommend PT/OT therapy. Patient continues with significant weakness with plantar ECF once stabilized Due to multiple complex medical issues, prognosis is extremely guarded The impression and plan of care has been dictated by Priscilla Steven, Nurse Pra ctitioner as directed. MD Nuvia I have performed a history and examination and MDM of this patient, discussed the same with the dictator, and agree with the dictator's assessment and plan as written ,documented as a scribe. Based on total visit time, I have performed more than 50% of the visit. Objective - Vital Signs Vital signs: Vital Signs Temp 98.0 F 12/02/22 08:00 Pulse 60 12/02/22 08:00 Resp 20 12/02/22 08:00 BP 107/68 12/02/22 08:00 Pulse Ox 99 12/02/22 08:00 FiO2 Intake & Output 12/01/22 12/02/22 12/02/22 18:59 06:59 18:59 Output Total 100 Balance -100 Output: Urine 100 Other: Voiding Method External Catheter External Catheter # Bowel Movements 1 - Labs CBC & Chem 7: 12/02/22 06:07 12/02/22 06:07 Labs: Abnormal Lab Results - Last 24 Hours (Table) 12/01/22 12/01/22 12/01/22 Range/Units 10:10 12:07 17:16 Fibrinogen 113 L (200-500) mg/dL Sodium (135-145) mmol/L Anion Gap (10.00-18.00) mmol/L BUN (9.0-27.0) mg/dL BUN/Creatinine Ratio (12.00-20.00) Ratio POC Glucose (mg/dL) 160 H 147 H (70-110) mg/dL Calcium (8.7-10.3) mg/dL 12/01/22 12/02/22 12/02/22 Range/Units 19:24 05:22 06:07 Fibrinogen (200-500) mg/dL Sodium 134 L (135-145) mmol/L Anion Gap 6.00 L (10.00-18.00) mmol/L BUN 52.4 H (9.0-27.0) mg/dL BUN/Creatinine Ratio 52.40 H (12.00-20.00) Ratio POC Glucose (mg/dL) 214 H 124 H (70-110) mg/dL Calcium 7.4 L (8.7-10.3) mg/dL 12/02/22 Range/Units 06:07 Fibrinogen 123 L (200-500) mg/dL Sodium (135-145) mmol/L Anion Gap (10.00-18.00) mmol/L BUN (9.0-27.0) mg/dL BUN/Creatinine Ratio (12.00-20.00) Ratio POC Glucose (mg/dL) (70-110) mg/dL Calcium (8.7-10.3) mg/dL
[2022-12-03 05:27] LABS: Anisocytosis Slight; Basophils % (A) 0 %; Eosinophils % (A) 0 %; HCT 20.5 % (39.0-53.0); Hypochromasia Moderate; Lymphocytes # (A) 1.1 k/uL (1.0-4.8); Lymphocytes % (A) 8 %; MCH 32.6 pg (25.0-35.0); MCHC 33.5 g/dL (31.0-37.0); MCV 97.3 fL (80.0-100.0); Macrocytosis Slight; Mean Platelet Volume 9.8; Monocytes # (A) 0.5 k/uL (0-1.0); Monocytes % (A) 4 %; Neutrophils # (A) 12.7 k/uL (1.3-7.7); Neutrophils % (A) 88 %; RBC 2.11 m/uL (4.30-5.90); RDW 18.2 % (11.5-15.5); WBC 14.4 k/uL (3.8-10.6)
[2022-12-03 05:35] LABS: HGB 6.9 gm/dL (13.0-17.5); Platelet Count 73 k/uL (150-450)
[2022-12-03 05:54] LABS: Glucose,Whole Blood 153 mg/dL (70-110)
[2022-12-03] MEDS: INSULIN ASPART (NovoLOG) 100 UNIT/ML VIAL SQ SCH ×4 (06:34→23:21)
[2022-12-03] MEDS: LEVOTHYROXINE 50 MCG TAB PO SCH (06:34)
--- NOTE | 2022-12-03 08:36 | P.PN ---
Subjective Progress Note Date: 12/02/22 Principal diagnosis: Abnormal MRI questionable discitis Patient is a 62-year-old male who is unvaccinated for COVID-19 patient was brought into the ER for evaluation of weakness no energy mention the patient was not able to get stand up and go to the bathroom patient has been dealing with the diarrhea off and on for couple of weeks, patient was noticed to have a positive covid test, however the patient was not hypoxic and CT abdominal pelvis with few bibasilar patchy groundglass opacity representing atelectasis and no evidence of colitis. Patient did have a drop in his hemoglobin and underwent a CT angiogram that demonstrated a large intramuscular hematoma in the left iliac is muscle in the retroperitoneum. Patient is status post Tali filter placement on 11/25/2022 On today's evaluation that is 12/02/2022, the patient remains to be afebrile, the patient is breathing comfortably on room air, The patient denies chest pain, the patient did have occasional dry cough, the patient denies nausea no vomiting no abdominal pain no diarrhea, patient is currently undergoing bowel prep for colonoscopy Objective - Vital Signs Vital signs: Vital Signs Temp 97.8 F 12/02/22 14:20 Pulse 64 12/02/22 14:20 Resp 16 12/02/22 14:20 BP 107/73 12/02/22 14:20 Pulse Ox 95 12/02/22 14:20 FiO2 Intake & Output 12/01/22 12/02/22 12/02/22 18:59 06:59 18:59 Intake Total 0 Output Total 100 Balance -100 0 Intake: Blood Product 0 Unit 0 Output: Urine 100 Other: Voiding Method External Catheter External Catheter Bedpan Diaper # Bowel Movements 1 - Exam GENERAL DESCRIPTION: An elderly male lying in bed in no distress RESPIRATORY SYSTEM: Unlabored breathing , decreased breath sounds at bases HEART: S1 S2 regular rate and rhythm , ABDOMEN: Soft , no tenderness EXTREMITIES: No edema feet - Labs CBC & Chem 7: 12/03/22 04:46 12/02/22 06:07 Labs: Abnormal Lab Results - Last 24 Hours (Table) 11/30/22 12/01/22 12/01/22 Range/Units 11:40 17:16 19:24 WBC (4.50-10.00) X 10*3/uL RBC (4.40-5.60) X 10*6/uL Hgb (13.0-17.0) g/dL Hct (39.6-50.0) % MCV (80.0-97.0) fL RDW (11.5-14.5) % Plt Count (140-440) X 10*3/uL Fibrinogen (200-500) mg/dL Sodium (135-145) mmol/L Anion Gap (10.00-18.00) mmol/L BUN (9.0-27.0) mg/dL BUN/Creatinine Ratio (12.00-20.00) Ratio POC Glucose (mg/dL) 147 H 214 H (70-110) mg/dL Calcium (8.7-10.3) mg/dL Crossmatch See Detail 12/02/22 12/02/22 12/02/22 Range/Units 05:22 06:07 06:07 WBC 17.81 H (4.50-10.00) X 10*3/uL RBC 1.88 L (4.40-5.60) X 10*6/uL Hgb 5.9 L* (13.0-17.0) g/dL Hct 18.4 L* (39.6-50.0) % MCV 97.9 H (80.0-97.0) fL RDW 19.9 H (11.5-14.5) % Plt Count 86 L (140-440) X 10*3/uL Fibrinogen (200-500) mg/dL Sodium 134 L (135-145) mmol/L Anion Gap 6.00 L (10.00-18.00) mmol/L BUN 52.4 H (9.0-27.0) mg/dL BUN/Creatinine Ratio 52.40 H (12.00-20.00) Ratio POC Glucose (mg/dL) 124 H (70-110) mg/dL Calcium 7.4 L (8.7-10.3) mg/dL Crossmatch 12/02/22 12/02/22 Range/Units 06:07 12:09 WBC (4.50-10.00) X 10*3/uL RBC (4.40-5.60) X 10*6/uL Hgb (13.0-17.0) g/dL Hct (39.6-50.0) % MCV (80.0-97.0) fL RDW (11.5-14.5) % Plt Count (140-440) X 10*3/uL Fibrinogen 123 L (200-500) mg/dL Sodium (135-145) mmol/L Anion Gap (10.00-18.00) mmol/L BUN (9.0-27.0) mg/dL BUN/Creatinine Ratio (12.00-20.00) Ratio POC Glucose (mg/dL) 135 H (70-110) mg/dL Calcium (8.7-10.3) mg/dL Crossmatch Assessment and Plan (1) COVID-19 Current Visit: Yes Status: Acute Priority: High Code(s): U07.1 - COVID-19 SNOMED Code(s): 467875161 Plan: 1patient did have a abnormal MRI of the cervical spine as well as lumbar spine with a questionable discitis reported by radiologist however the patient did have normal sed rate and a CRP 2, patient is currently being monitor closely off antibiotic therapy to increase the yield of any culture to be done at the time of surgery . Apparently the patient is not stable to undergo surgery per orthopedics, IR unable to do CT-guided aspirate of the affected lumbar spine for microbiological diagnosis 2leukocytosis is more likely steroid related as well as reactive to his bleed as the patient did have evidence of muscle hematoma as well as retroperitoneal hematoma and the patient is status post Tali filter placement and is currently undergoing bowel prep for colonoscopy, white count is down to 17,000 and will be monitored closely Time with Patient: Less than 30
[2022-12-03] MEDS: DEXAMETHASONE SOD PHOSPHATE 4 MG/ML 1 ML VIAL IVP SCH ×3 (09:16→23:21)
[2022-12-03] MEDS: CHOLECALCIFEROL 25 MCG (1000 IU) TABLET PO SCH (09:17)
[2022-12-03] MEDS: CALCIUM CARBONATE 500 MG CHEWABLE PO SCH ×3 (09:17→19:51)
[2022-12-03] MEDS: PANTOPRAZOLE 40 MG/10 ML VIAL IVP SCH ×2 (09:17→19:51)
[2022-12-03] MEDS: ASCORBIC ACID 500 MG TAB PO SCH ×2 (09:18→19:51)
[2022-12-03] MEDS: CYANOCOBALAMIN 500 MCG TAB PO SCH (09:19)
[2022-12-03] MEDS: DILTIAZEM ORAL 30 MG TAB PO SCH ×4 (09:19→22:30)
[2022-12-03] MEDS: FLUoxetine HCL 20 MG CAP PO SCH (09:19)
[2022-12-03] MEDS: FOLIC ACID 1 MG TAB PO SCH (09:19)
[2022-12-03] MEDS: MAGNESIUM OXIDE 400 MG TAB PO SCH (09:20)
[2022-12-03] MEDS: SODIUM BICARBONATE TAB 650 MG TAB PO SCH ×2 (09:21→19:51)
[2022-12-03] MEDS: PYRIDOXINE 50 MG TAB PO SCH (09:21)
[2022-12-03] MEDS: THIAMINE 100 MG TAB PO SCH (09:21)
[2022-12-03] MEDS: FUROSEMIDE 40 MG TAB PO SCH (10:11)
[2022-12-03] MEDS: CHOLESTYRAMINE (WITH SUGAR) 4 GM PACKET PO SCH ×2 (10:11→17:50)
[2022-12-03 11:47] LABS: Glucose,Whole Blood 161 mg/dL (70-110)
[2022-12-03] MEDS ORDERED: LIDOCAINE 2% INJ 20 MG/ML (2 ML VIAL) ONE (11:53)
[2022-12-03] MEDS ORDERED: PROPOFOL 10 MG/ML 20 ML VIAL IV ONE (11:53)
[2022-12-03] MEDS ORDERED: IV FLUID CONTINUATION 1,000 ML IV ONE (11:55)
--- NOTE | 2022-12-03 12:23 | P.PCN ---
Date of Procedure: 12/03/22 Procedure(s) Performed: Brief history: Patient is a pleasant 63-year-old white male admitted hospital with diarrhea of several days duration. During the course of hospitalization he developed DVT and was subsequently started on IV heparin and developed retroperitoneal hematoma and and accommodation was discontinued. He underwent [place] filter placement and remained stable. For the last 3-4 days he continued to drop in hemoglobin and was having some Black tarry stools and hemoglobin was down to 5.6 g/dL. Recent total of 7 units of the obesity transition during this hospitalization. Last hemoglobin this morning was 6.9 g/dL and and receiving another unit of blood transfusion. He scheduled for an upper endoscopy and colonoscopy to [place] further. Procedure performed: Esophagogastroduodenoscopy with biopsy Colonoscopy Preoperative diagnosis: Acute GI bleed Anesthesia: MAC Procedure: After informed consent was obtained from the patient was brought into the endoscopy unit and IV sedation was administered by anesthesia under continuous monitoring. Initially upper endoscopy was done. The Olympus GF 160 video endoscope was inserted inserted into the mouth and esophagus intubated without any difficulty and was gradually advanced into the stomach . The gastric pouch appeared normal. There was evidence of Guadalupe-en-Y bypass surgery noted and the anastomosis appeared normal. The afferent and efferent loops appeared normal. The gastric pouch appeared normal. The GE junction was located at 40 cm to the incisors. It appeared regular with no erythema erosions or ulcerations. In the mid esophagus at 30 cm from the incisors there was a 1 cm nonbleeding ulceration identified which was biopsied. Rest of the esophagus appeared normal. Patient tolerated the procedure well. At this time the patient continued to remain sedation. Initial digital rectal examination was normal. Olympus CF 160 video colonoscope was then inserted into the rectum and gradually advanced to the cecum without any difficulty. Careful examination was performed as the scope was gradually being withdrawn. The prep was poor throughout the colon. Thick black stool noted throughout the entire colon and thorough irrigation was performed. The visualized mucosa of the cecum, ascending colon, transverse colon, descending colon, sigmoid colon and rectum appeared normal. No fresh bleeding identified. Retroflexion was performed in the rectum and no lesions were noted. Patient tolerated the pr ocedure well. Impression: 1. Upper endoscopy revealed a 1 cm nonbleeding mid esophageal ulcer status post biopsy, history of Guadalupe-en-Y gastric bypass surgery. 2. Colonoscopy revealed thick black stool throughout the entire colon but no active bleeding identified. Recommendations: Findings of this examination were discussed with the patient. Schedule for small bowel capsule endoscopy to evaluate the source of bleeding. He was advised to follow with the biopsy results. Continue Protonix 40 mg daily. Monitor CBC daily.
--- NOTE | 2022-12-03 13:19 | P.PN ---
Subjective Progress Note Date: 12/03/22 Principal diagnosis: Abnormal MRI questionable discitis Patient is a 62-year-old male who is unvaccinated for COVID-19 patient was brought into the ER for evaluation of weakness no energy mention the patient was not able to get stand up and go to the bathroom patient has been dealing with the diarrhea off and on for couple of weeks, patient was noticed to have a positive covid test, however the patient was not hypoxic and CT abdominal pelvis with few bibasilar patchy groundglass opacity representing atelectasis and no evidence of colitis. Patient did have a drop in his hemoglobin and underwent a CT angiogram that demonstrated a large intramuscular hematoma in the left iliac is muscle in the retroperitoneum. Patient is status post Tali filter placement on 11/25/2022 On today's evaluation that is 12/03/2022, the patient denies any fever or chills, the patient is breathing comfortably on room air, The patient denies chest pain, the patient did have occasional dry cough, the patient denies nausea no vomiting no abdominal pain no diarrhea, patient is status post EGD and colonoscopy this morning Objective - Vital Signs Vital signs: Vital Signs Temp 98.5 F 12/03/22 10:33 Pulse 72 12/03/22 12:25 Resp 17 12/03/22 12:25 BP 102/69 12/03/22 12:25 Pulse Ox 100 12/03/22 12:25 FiO2 Intake & Output 12/02/22 12/03/22 12/03/22 18:59 06:59 18:59 Intake Total 994 410 Balance 994 410 Intake: IV 100 Oral 684 Blood Product 310 310 As-1 Unit 310 [id number] As-1 Unit 310 [id number] Other: Voiding Method Bedpan Bedpan Diaper Diaper # Voids 3 2 1 # Bowel Movements 1 1 - Exam GENERAL DESCRIPTION: An elderly male lying in bed in no distress RESPIRATORY SYSTEM: Unlabored breathing , decreased breath sounds at bases HEART: S1 S2 regular rate and rhythm , ABDOMEN: Soft , no tenderness EXTREMITIES: No edema feet - Labs CBC & Chem 7: 12/03/22 04:46 12/02/22 06:07 Labs: Abnormal Lab Results - Last 24 Hours (Table) 11/30/22 12/02/22 12/02/22 Range/Units 11:40 17:28 20:48 WBC (3.8-10.6) k/uL RBC (4.30-5.90) m/uL Hgb (13.0-17.5) gm/dL Hct (39.0-53.0) % RDW (11.5-15.5) % Plt Count (150-450) k/uL Neutrophils # (1.3-7.7) k/uL POC Glucose (mg/dL) 111 H 150 H (70-110) mg/dL Crossmatch See Detail 12/03/22 12/03/22 12/03/22 Range/Units 04:46 05:53 11:35 WBC 14.4 H (3.8-10.6) k/uL RBC 2.11 L (4.30-5.90) m/uL Hgb 6.9 L* (13.0-17.5) gm/dL Hct 20.5 L (39.0-53.0) % RDW 18.2 H (11.5-15.5) % Plt Count 73 L (150-450) k/uL Neutrophils # 12.7 H (1.3-7.7) k/uL POC Glucose (mg/dL) 153 H 161 H (70-110) mg/dL Crossmatch Assessment and Plan (1) COVID-19 Current Visit: Yes Status: Acute Priority: High Code(s): U07.1 - COVID-19 SNOMED Code(s): 855718130 Plan: 1patient did have a abnormal MRI of the cervical spine as well as lumbar spine with a questionable discitis reported by radiologist however the patient did have normal sed rate and a CRP 2, patient is currently being monitor closely off antibiotic therapy to increase the yield of any culture to be done at the time of surgery . Apparently the patient is not stable to undergo surgery per orthopedics, IR unable to do CT-guided aspirate of the affected lumbar spine for microbiological diagnosis 2leukocytosis is more likely steroid related as well as reactive to his bleed as the patient did have evidence of muscle hematoma as well as retroperitoneal hematoma and the patient is status post Tali filter placement 3-patient is status post EGD and colonoscopy with evidence of lower esophageal ulcer but nonbleeding or active source of bleeding in the colon be monitored by GI and surgical services 4patient white count is trending down is down to 14,000 today and will be monitored closely off antibiotic therapy Time with Patient: Less than 30
[2022-12-03] MEDS: INSULIN DETEMIR (LEVEMIR) 100 UNIT/ML SYR SQ SCH (14:33)
--- NOTE | 2022-12-03 15:07 | P.PN ---
Subjective Patient is seen in follow-up for acute kidney injury on chronic kidney disease. Renal function fairly stable. Jo catheter discontinued. Currently with external catheter Nonoliguric. No active complaints. Hemoglobin was 6.9 today. Serum creatinine at 1.0 Status post EGD and colonoscopy which showed 1 cm nonbleeding mid esophageal ulcer and colonoscopy showed thick black stools throughout the entire colon with no active bleeding. Objective - Vital Signs Vital signs: Vital Signs Temp 98.5 F 12/03/22 10:33 Pulse 72 12/03/22 12:25 Resp 17 12/03/22 12:25 BP 102/69 12/03/22 12:25 Pulse Ox 100 12/03/22 12:25 FiO2 Intake & Output 12/02/22 12/03/22 12/03/22 18:59 06:59 18:59 Intake Total 994 410 Balance 994 410 Intake: IV 100 Oral 684 Blood Product 310 310 Rc As-1 Unit 310 [id number] Rc As-1 Unit 310 [id number] Other: Voiding Method Bedpan Bedpan Diaper Diaper # Voids 3 2 1 # Bowel Movements 1 1 - Exam Patient is comfortable awake alert oriented 3 Examination of the heart S1 and S2 Examination of the lungs bilateral breath sounds are heard Abdomen is soft nontender Examination lower extremity shows 1+ edema bilaterally, more in the left leg LINE PULLER exam grossly intact - Labs CBC & Chem 7: 12/03/22 04:46 12/02/22 06:07 Labs: Abnormal Lab Results - Last 24 Hours (Table) 11/30/22 12/02/22 12/02/22 Range/Units 11:40 17:28 20:48 WBC (3.8-10.6) k/uL RBC (4.30-5.90) m/uL Hgb (13.0-17.5) gm/dL Hct (39.0-53.0) % RDW (11.5-15.5) % Plt Count (150-450) k/uL Neutrophils # (1.3-7.7) k/uL POC Glucose (mg/dL) 111 H 150 H (70-110) mg/dL Crossmatch See Detail 12/03/22 12/03/22 12/03/22 Range/Units 04:46 05:53 11:35 WBC 14.4 H (3.8-10.6) k/uL RBC 2.11 L (4.30-5.90) m/uL Hgb 6.9 L* (13.0-17.5) gm/dL Hct 20.5 L (39.0-53.0) % RDW 18.2 H (11.5-15.5) % Plt Count 73 L (150-450) k/uL Neutrophils # 12.7 H (1.3-7.7) k/uL POC Glucose (mg/dL) 153 H 161 H (70-110) mg/dL Crossmatch Assessment and Plan Assessment: 1. Acute kidney injury mostly prerenal secondary to acute blood loss anemia and urinary retention. Renal function stable. Creatinine 1.0. Patient received IV contrast on 11/23/2022. Jo catheter has been removed. 2. Chronic kidney disease stage II with baseline creatinine 1-1.1. 3. Urinary retention. Jo catheter removed 11/27/2022. On Flomax. 4. Lower extremity edema maintained on Lasix. Better. 5. Hyperkalemia secondary to GI bleed and acidosis. Stable. 6. GI bleed status post blood transfusion this admission. CAT scan showed large intramuscular hematoma. Surgery following. 7. Metabolic acidosis secondary to acute kidney injury and GI losses maintained on oral bicarbonate. 8. Hypomagnesemia from diuresis. Replaced. Stable. Plan: Continue with oral Lasix Check renal profile periodically Decrease sodium bicarb
--- NOTE | 2022-12-03 15:43 | P.PN ---
Subjective Progress Note Date: 12/03/22 Paroxysmal atrial fibrillation Intractable nausea/vomiting/diarrhea Profound hypokalemia Acute renal injury COVID-19 infection 62-year-old male in the emergency department for diarrhea. She notes diarrhea starting and he asked progressively gotten worse. He reports he stood up from a chair and had an episode of diarrhea, admits he still maintains bowel function. He has not tried anything for his symptoms. He denies nausea, vomiting, abdominal pain, palpitations, fevers. Denies recent travel or recent antibiotic use. He is scheduled to have his first colonoscopy in january of 2023. Patient had an initial lab work is remarkable for WBC is 11.4, hemoglobin 8.7, INR 1.2, sodium 133, potassium 2.6 lactic acid 2.9, calcium 6.3, magnesium 0.8, lipase 60, COVID positive. I interpreted the following; CT abdomen without contrast remarkable for fluid filled colon without focal wall thickening or surrounding inflammatory changes. Patient was given 2 L fluids, potassium, magnesium and calcium during his course of the ED. 11/08/2022 Patient is seen and evaluated on selective care unit; he went into atrial fibrillation with rapid ventricular response he was transferred to the third floor/selective minute. The patient did not have any symptoms of heart racing or fluttering and no dizziness or lightheadedness and no presyncope or syncope and no symptoms of chest pain or chest discomfort or shortness of breath. No prior history of atrial fibrillation. No history of coronary artery disease or congestive heart failure or cardiac arrhythmia and the patient never seen a clerical administrative assistant in the past. Beside that no history of diabetes or hypertension or dyslipidemia. The patient was started initially on Cardizem drip but his pressure did go down and for that reason he was switched into amiodarone IV and subsequently converted to normal sinus mechanism and since then he has been maintaining normal sinus mechanism. Further investigation was performed including CBC and that showed a hemoglobin of 7.7. The patient has no history of bleeding. B eside that he underwent a computed tomography scan of the abdomen and pelvis because of the abdominal discomfort that showed no acute abnormalities. The troponin came in to be slightly elevated likely secondary to tachycardia. The EKG showed sinus rhythm now with no significant ST or T-wave abnormalities. Blood work reveals mild elevation of troponin; Patient has been evaluated by cardiology and recommended to continue with IV fluids, replace electrolytes; IV amiodarone is to be discontinued patient is transition to oral dose daily 11/09/2022 Patient is seen and evaluated in follow-up this morning and continues to feel generalized weakness and continues with loose stools. Per nursing staff when assisting to clean the patient up patient was significantly weak on the right. Patient denied any headache, dizziness, or lightheadedness. Will obtain a CT of the brain and also consult neurology. Recommend PT/OT therapy evaluation for significant weakness. C. diff testing was negative on the stool and will add Imodium and encourage oral intake and advance as tolerated. Patient is ma intaining on vitamins and zinc supplements along with subcutaneous heparin with anxiety following closely. Patient denies chest pain or shortness of breath. Afebrile. Recommend a.m. labs as well. 11/10/2022 Patient is seen in follow-up today with multiple medical consultations including cardiology, hematology, infectious disease, and now neurology following. Patient with significant weakness in all upper and lower extremities with neurology undergoing workup recommending aspirin as patient is not on any anticoagulation at this time. Cardiology is following and patient was transitioned back to IV Cardizem although being changed to oral with close monitoring. Magnesium found to be significantly low at 1.2 and will replace per protocol and recommend repeat labs. Hemoglobin is mildly low at 7.4 and undergoing anemia workup with hematology following. Patient with Covid and extreme weakness will need ECF and discharge planning in process. Recommend close monitoring of labs and replace electrolytes per protocol. Patient was started on Imodium as C. diff testing 2 was negative. Patient continues to have loose stools although somewhat improved. Encouraged oral intake and incr eased activity as tolerated. Recommend PT/OT therapy daily. Patient denies chest pain or shortness of breath. Patient is 97% on room air. Patient will continue on vitamin and zinc supplements with anxiety following closely. Recommend gentle IV hydration. 11/11/2022 Patient is seen and evaluated in follow-up with multiple medical consultations following including infectious disease and neurology. Oncology following undergoing anemia workup. Hemoglobin was found to be 6.5 today and will order 1 unit of PRBC and recommend close monitoring. No active bleeding noted. Patient was started on baby aspirin per neurology and scheduled to undergo MRI of the cervical spine today. Patient continues with significant weakness and will need rehab upon discharge. Patient is maintained on vitamin and zinc supplements and was also being followed by cardiology. Adjustments to medications being done and patient is on oral Cardizem. Will follow-up with repeat labs. Patient is afebrile and denies shortness of breath. Patient clinically appears to be improving. Per nursing staff patient is incontinent of stool in continues to be somewhat loose although less frequent. C. diff testing was negative and stool cultures are negative. Encouraged oral intake. Will discuss with case management about discharge planning to ECF as he will require a Covid hub. 11/12/2022 Patient is seen and evaluated in follow-up today with multiple medical consultations following including infectious disease, cardiology, neurology. Patient's hemoglobin is low again at 6.8 and will give 1 unit. Recommend holding aspirin. Patient did have an elevated d-dimer and CTA was ordered. GI was also consulted for anemia. Patient continues to have incontinence of stool and loose stools and is maintained on Questran and will be given Imodium as needed. Patient continues with generalized weakness and fatigue and also having some lower extremity pain and swelling and have ordered Dopplers of bilateral lo wer extremities as well. Patient with Covid vitamin and zinc supplements and anticoagulation with subcu heparin. Hematology also following for anemia. Recommend repeat CBC this evening and will transfuse another unit as well. Cardiology following and adjustments to medications being made and patient also being started on low-dose diuretics. Patient is having low-grade temps of 99.3- 99.6 and patient continues to be 95% or above on room air. Blood pressure on the lower side although stable. Stool cultures and C. diff testing have been negative. Patient started on antibiotics per ID recommendations in the form of Zithromax and ceftriaxone. Reviewed iron studies which are low and will give IV iron as well. Electrolytes continue to be low and will replace per protocol. Patient will need ECF once stabilized and discharged 11/13/2022 Patient is seen today with multiple medical consultations following and undergoing neurological workup and having bilateral upper and lower extremity weakness. Neurology recommends orthopedic consultation which is currently pending. Patient did have some movement in his diarrhea and reports becoming more formed and less frequent. Patient continues to be incontinent of this. Patient being started on antibiotics with anxiety following an also continues to have anemia. GI recommending continuing with hematology workup. Multiple images including MRIs and pending at time. Patient with significant weakness will be going to rehab when stable. A.m. labs are pending. 11/24/2022 Patient is currently resting in the bed. Awake alert and oriented x3. No complaints of chest pain or shortness of breath. Left lower abdominal discomfort is improved. Hemoglobin is stable. Vascular surgery has seen the patient is planning for IVC filter placement. Heparin is on hold due to retroperitoneal bleed. Laboratory data showed WBC 25.6 hemoglobin 7.1 and platelets 159 sodium 131 potassium 5.7 chloride 112 bicarb is 37 creatinine 1.18 and calcium 7.0. Nephrology, ID and vascular surgery is on board. 11/25/2022 Patient is currently resting in bed. Awake alert and oriented x3. On room air. No complaints of chest pain or shortness of breath. No abdominal pain. No nausea vomiting abdominal pain or diarrhea. Patient is scheduled for IVC filter placement today. Otherwise hemoglobin level is 6.8 and 1 unit of PRBC was ordered. Other laboratory data showed WBC 20.6 hemoglobin 6.8 and platelets 149 sodium 135 potassium 5.4 chloride 101 bicarb is 23 BUN 34 and creatinine 1.25. Magnesium 1.6. Patient is being continued dexamethasone as per orthopedic surgery. Also on IV Lasix. Nephrology and general surgery is on board. Patient was given a dose of Lokelma yesterday. 11/26/2022 Patient is currently resting in bed. Awake alert and oriented x3. No complaints of back pain or abdominal pain. No nausea vomiting abdominal pain or diarrhea. No cough or sputum production. Currently on room air. Patient is status post IVC filter placement on 11/25/2022. Patient received 1 unit of PRBC yesterday and hemoglobin improved to 7.6 today. Level data showed WBC 22.3 hemoglobin 7.6 and platelets 141 sodium 136 potassium 5.3 chloride 101 bicarb is 23 BUN 32 and creatinine 1.23 and blood sugar is 125 and calcium 7.2. Magnesium 1.9. Follow-up CBC and BMP was ordered. Orthopedic surgery is planning for OR when medically stable tomorrow. 11/28/2022 Patient is seen and evaluated in follow-up and apparently orthopedics is scheduled for surgical intervention is patient is unstable. Recommending awaiting medical clearance. Infectious disease following and patient is being maintained and monitored closely of IV antibiotic therapy. Patient is status post [place] filter placement any stable. No active bleeding noted. General surgery following for hematoma on the back with no surgical interventions planned. Patient with significant weakness recommend PT/OT therapy and will discuss with case management about discharge planning and ECF. Recommend follow-up labs in the a.m. she is currently afebrile denies chest pain or shortness of breath. He stable. No active bleeding noted. Patient is tolerating diet with no reports of nausea or vomiting noted. 11/29/2022 Patient was seen in follow-up this morning with orthopedics along with infectious disease, nephrology, general surgery, hematology following. Vital signs of been stable patient is continued on dexamethasone per orthopedics and will discuss about weaning parameters. Patient is also maintained off of antibiotics. Patient was significant weakness recommend PT/OT therapy and rehab on discharge. Patient continues to have elevated white blood count is infectious disease following and repeat inflammatory markers ordered. Patient is afebrile denies chest pain or shortness of breath. 11/30/2022 Patient is seen and evaluated in follow-up today with multiple medical consultations following. Hemoglobin was found to be critically low at 5.5 with a hematocrit of 17.6 and awaiting to receive 2 units of blood. Patient is status post IVC filter this admission as he was having anemia with acute on chronic DVT of the left proximal vein and also found to have a large intramuscular hematoma of the left iliac muscle, retroperitoneal hematoma. Gen. surgery services following as well. Patient also noted be having black tarry stools and will reconsult GI as we have services available tomorrow. Patient was having some abdominal discomfort and will obtain CT angiogram and evaluate for bleeding. Orthopedics following and were initially discussing surgical intervention of the lower spine although on hold as patient is not medically stable for surgical intervention at this time. Patient is maintained on IV dexamethasone and being weaned per orthopedics. Patient continues with significant weakness and bilateral foot drop and inability to ambulate and generalized edema noted throughout. Patient is maintained on oral Lasix and will give a dose of IV Lasix posttransfusion and follow-up with repeat labs this evening. Patient is afebrile denies chest pain or shortness of breath. Patient is frustrated and appears depressed. Patient denies any suicidal thoughts or wanting to harm himself or others. 12/01/2022 Patient is seen and evaluated in follow-up this morning hemoglobin post 2 units of packed red blood cells was 7.7. CT angiogram abdomen and pelvis was negative for any acute bleeding and GI was placed on consult with patient being scheduled for EGD/colonoscopy. Patient is afebrile denies chest pain or shortness of breath. Patient is tolerating diet with no reports of nausea vomiting noted. Orthopedics following as well and no plans for immediate interventions at this time until patient is more stable. No reports of chest pain or shortness of breath patient is sitting up in the bed on room air. Will follow-up with repeat labs. 12/02/2022 Patient is seen and evaluated this morning currently sitting up in the bed with family at the bedside. Patient was tentatively scheduled for EGD/colonoscopy although did not complete the prep still having formed brown stools continue with bowel prep and scheduled for EGD/colonoscopy in the a.m. Repeat labs reveal hemoglobin of 5.9 and will transfuse recommend follow-up labs. Patient is afebrile with no reports of nausea or vomiting noted. Patient denies chest pain or shortness of breath. Hematology following as well undergoing further workup for anemia. 12/03/2022 Patient is seen and evaluated in follow-up this morning currently nothing by mouth patient completed a bowel prep and initially per nursing staff had clear stools now continuing to have loose black sludgy stools 3 and C. diff ordered. Hemoglobin was found to be 6.9 and awaiting to receive 1 unit of PRBC. Plan is for EGD/colonoscopy with GI today. Patient is currently afebrile denies chest pain or shortness of breath. Patient is extremely anxious and persist to ask daily of when he can have his orthopedic interventions done. Discussed with orthopedic team and there are no plans for immediate surgical intervention during this admission. Patient with Significant weakness and recommend PT/OT therapy daily. Will resume diet once cleared by GI after endoscopic intervention. Recommend follow-up labs and will continue to monitor closely. Review of systems: Constitutional: No reports of fatigue, no fever, or chills Cardiovascular: No reports of chest pain or palpitations Respiratory: No reports of shortness of breath or cough GI: No reports of nausea, vomiting, reports dark black loose stools : No reports of dysuria or retention Neurovascular: reports of generalized weakness All medications have been reviewed Active Medications Acetaminophen (Acetaminophen Tab 325 Mg Tab) 650 mg PO Q6HR PRN PRN Reason: Mild Pain or Fever > 100.5 Last Admin: 11/23/22 05:38 Dose: 650 mg Ascorbic Acid (Ascorbic Acid 500 Mg Tab) 500 mg PO BID [facility] Last Admin: 12/03/22 09:18 Dose: 500 mg Calcium Carbonate/Glycine (Calcium Carbonate 500 Mg Chewable) 500 mg PO TID [facility] Last Admin: 12/03/22 09:17 Dose: 500 mg Cholecalciferol (Cholecalciferol 25 Mcg (1000 Iu) Tablet) 50 mcg PO DAILY [facility] Last Admin: 12/03/22 09:17 Dose: 50 mcg Cholestyramine Resin (Cholestyramine (With Sugar) 4 Gm Packet) 4 gm PO BID@1000,1800 [facility] Last Admin: 12/03/22 10:11 Dose: Not Given Cyanocobalamin (Cyanocobalamin 500 Mcg Tab) 1,000 mcg PO DAILY [facility] Last Admin: 12/03/22 09:19 Dose: 1,000 mcg Dexamethasone Sodium Phosphate (Dexamethasone Sod Phosphate 4 Mg/Ml 1 Ml Vial) 2 mg IVP Q8HR [facility] Last Admin: 12/03/22 09:16 Dose: 2 mg Dextrose/Water (Dextrose 50% Syringe 50 Ml) 25 ml IVP PER PROTOCOL PRN; Protocol PRN Reason: Hypoglycemia Dextrose/Water (Dextrose 50% Syringe 50 Ml) 50 ml IVP PER PROTOCOL PRN; Protocol PRN Reason: Hypoglycemia Diclofenac Sodium (Diclofenac Sodium Gel 100 Gm Tube) 2 gm TOPICAL QID PRN; Protocol PRN Reason: Pain Diltiazem HCl (Diltiazem Oral 30 Mg Tab) 30 mg PO TID [facility] Last Admin: 12/03/22 10:11 Dose: Not Given Fluoxetine HCl (Fluoxetine Hcl 20 Mg Cap) 20 mg PO DAILY [facility] Last Admin: 12/03/22 09:19 Dose: 20 mg Folic Acid (Folic Acid 1 Mg Tab) 0.5 mg PO DAILY [facility] Last Admin: 12/03/22 09:19 Dose: 0.5 mg Furosemide (Furosemide 40 Mg Tab) 40 mg PO DAILY [facility] Last Admin: 12/03/22 10:11 Dose: Not Given Furosemide (Furosemide 10 Mg/Ml 4 Ml Vial) 40 mg IV ONCE PRN PRN Reason: Edema Last Admin: 11/30/22 18:04 Dose: 40 mg Insulin Aspart (Insulin Aspart (Novolog) 100 Unit/Ml Vial) 0 unit SQ [facility]; Protocol Last Admin: 12/03/22 14:33 Dose: Not Given Insulin Detemir (Insulin Detemir (Levemir) 100 Unit/Ml Syr) 10 unit SQ DAILY@0700 [facility] Last Admin: 12/03/22 14:33 Dose: Not Given Levothyroxine Sodium (Levothyroxine 50 Mcg Tab) 50 mcg PO DAILY@0630 [facility] Last Admin: 12/03/22 06:34 Dose: 50 mcg Loperamide HCl (Loperamide 2 Mg Cap) 2 mg PO QID PRN PRN Reason: Diarrhea Last Admin: 11/12/22 09:47 Dose: 2 mg Magnesium Oxide (Magnesium Oxide 400 Mg Tab) 400 mg PO DAILY [facility] Last Admin: 12/03/22 09:20 Dose: 400 mg Melatonin (Melatonin 3 Mg Tablet) 3 mg PO HS [facility] Last Admin: 12/02/22 20:37 Dose: 3 mg Miscellaneous Information (Magnesium Replacement Protocol 1 Each Misc) 1 each MISCELLANE DAILY PRN; Protocol PRN Reason: Per Protocol Naloxone HCl (Naloxone 0.4 Mg/Ml 1 Ml Vial) 0.2 mg IV Q2M PRN PRN Reason: Opioid Reversal Pantoprazole Sodium (Pantoprazole 40 Mg/10 Ml Vial) 40 mg IVP BID [facility] Last Admin: 12/03/22 09:17 Dose: 40 mg Pyridoxine HCl (Pyridoxine 50 Mg Tab) 50 mg PO DAILY [facility] Last Admin: 12/03/22 09:21 Dose: 50 mg Sodium Bicarbonate (Sodium Bicarbonate Tab 650 Mg Tab) 650 mg PO BID [facility] Tamsulosin HCl (Tamsulosin 0.4 Mg Cap.Er.24h) 0.4 mg PO PC-SUPPER [facility] Last Admin: 12/02/22 18:01 Dose: 0.4 mg Thiamine HCl (Thiamine 100 Mg Tab) 100 mg PO DAILY [facility] Last Admin: 12/03/22 09:21 Dose: 100 mg Physical exam: Gen: This is a 62-year-old male awake, alert and oriented 3, well-developed, well-nourished, ill-appearing. Pale HEENT: Head is atraumatic, normocephalic. Pupils equal, round. Sclerae is anicteric. NECK: Supple. No JVD. No lymphadenopathy. No thyromegaly. LUNGS: Breath sounds diminished bilaterally with some scattered rhonchi noted. No intercostal retractions. HEART: S1, S2 are muffled, irregular ABDOMEN: Soft. Mildly tender on palpation. Bowel sounds are present. No masses. EXTREMITIES: No pedal edema. No calf tenderness. Lower extremity edema. Bilateral upper and lower extremity weakness generalized edema noted NEUROLOGICAL: Patient is awake, alert and oriented x3. Cranial nerves 2 through 12 are grossly intact. Diffusely weak Assessment: Acute blood loss anemia. hb 5.9 due to retroperitoneal bleed with hematoma. Hyperkalemia due to GI bleed. Improved Bilateral Pneumonia with superimposed gram-negative bacterial infection is suspected mainly in the right lower lobe. Completed antibiotic course. Recent COVID-19 infection with pneumonia Acute hypoxic respiratory failure. Titrate down to room air.. Sepsis secondary to above Possible discitis as per MRI cervical spine. Hyperkalemia due to urinary retention and acute kidney injury. Improving now. Anemia with vitamin B12 deficiency and currently on IM B12 replacement therapy Elevated troponin, most likely type II. No chest pain, normal LV function Low vitamin B12 and B6 Nonocclusive thrombosis of the left leg status post [place] filter placement Paroxysmal atrial fibrillation no anticoagulation with score of 0 per Reimbursement Auditor DVT prophylaxis; SCDs No code Plan: Recommend to continue current medications and management with multiple medical consultations following. Hemoglobin 6.9 today status post 1 unit of PRBC yesterday and 1 unit ordered for today. Patient underwent bowel prep and completed and initially was having clear stools yesterday although started having sludgy dark loose stools minimum 3 since this morning patient is planned for EGD/colonoscopy today. Currently nothing by mouth and will discuss with GI about resuming diet. Recommending small capsule study which has been initiated and will await report, EGD was done and biopsies were obtained with no active bleeding noted, co lonoscopy was done as well and awaiting official report Orthopedics following as needed and awaiting surgical intervention until more stable. Discussed with orthopedics team and no plans for surgical intervention this admission Will follow-up with repeat labs and continue to monitor closely Recommend PT/OT therapy. Patient continues with significant weakness with plantar ECF once stabilized Due to multiple complex medical issues, prognosis is extremely guarded The impression and plan of care has been dictated by Priscilla Steven, Nurse Practitioner as directed. MD Nuvia I have performed a history and examination and MDM of this patient, discussed the same with the dictator, and agree with the dictator's assessment and plan as written ,documented as a scribe. Based on total visit time, I have performed more than 50% of the visit. Objective - Vital Signs Vital signs: Vital Signs Temp 99.1 F 12/03/22 08:00 Pulse 58 L 12/03/22 08:00 Resp 18 12/03/22 08:00 BP 82/63 12/03/22 08:00 Pulse Ox 100 12/03/22 08:00 FiO2 Intake & Output 12/02/22 12/03/22 12/03/22 18:59 06:59 18:59 Intake Total 994 Balance 994 Intake: Oral 684 Blood Product 310 Rc As-1 Unit 310 [id number] Other: Voiding Method Bedpan Diaper # Voids 3 2 1 # Bowel Movements 1 2 - Labs CBC & Chem 7: 12/03/22 04:46 12/02/22 06:07 Labs: Abnormal Lab Results - Last 24 Hours (Table) 11/30/22 12/02/22 12/02/22 Range/Units 11:40 06:07 12:09 WBC 17.81 H (4.50-10.00) X 10*3/uL RBC 1.88 L (4.40-5.60) X 10*6/uL Hgb 5.9 L* (13.0-17.0) g/dL Hct 18.4 L* (39.6-50.0) % MCV 97.9 H (80.0-97.0) fL RDW 19.9 H (11.5-14.5) % Plt Count 86 L (140-440) X 10*3/uL Neutrophils # (1.3-7.7) k/uL POC Glucose (mg/dL) 135 H (70-110) mg/dL Crossmatch See Detail 12/02/22 12/02/22 12/03/22 Range/Units 17:28 20:48 04:46 WBC 14.4 H (4.50-10.00) X 10*3/uL RBC 2.11 L (4.40-5.60) X 10*6/uL Hgb 6.9 L* (13.0-17.0) g/dL Hct 20.5 L (39.6-50.0) % MCV (80.0-97.0) fL RDW 18.2 H (11.5-14.5) % Plt Count 73 L (140-440) X 10*3/uL Neutrophils # 12.7 H (1.3-7.7) k/uL POC Glucose (mg/dL) 111 H 150 H (70-110) mg/dL Crossmatch 12/03/22 Range/Units 05:53 WBC (4.50-10.00) X 10*3/uL RBC (4.40-5.60) X 10*6/uL Hgb (13.0-17.0) g/dL Hct (39.6-50.0) % MCV (80.0-97.0) fL RDW (11.5-14.5) % Plt Count (140-440) X 10*3/uL Neutrophils # (1.3-7.7) k/uL POC Glucose (mg/dL) 153 H (70-110) mg/dL Crossmatch
[2022-12-03 17:22] LABS: Glucose,Whole Blood 103 mg/dL (70-110)
[2022-12-03 18:09] LABS: Anisocytosis Slight; Basophils % (A) 0 %; Eosinophils % (A) 0 %; HCT 22.2 % (39.0-53.0); HGB 7.2 gm/dL (13.0-17.5); Lymphocytes # (A) 1.1 k/uL (1.0-4.8); Lymphocytes % (A) 7 %; MCH 30.6 pg (25.0-35.0); MCHC 32.7 g/dL (31.0-37.0); MCV 93.8 fL (80.0-100.0); Macrocytosis Slight; Mean Platelet Volume 10.3; Monocytes # (A) 0.5 k/uL (0-1.0); Monocytes % (A) 3 %; Neutrophils # (A) 12.8 k/uL (1.3-7.7); Neutrophils % (A) 89 %; RBC 2.37 m/uL (4.30-5.90); RDW 19.4 % (11.5-15.5); WBC 14.5 k/uL (3.8-10.6)
[2022-12-03 18:10] LABS: Platelet Count 76 k/uL (150-450)
[2022-12-03] MEDS: TAMSULOSIN 0.4 MG CAP.ER.24H PO SCH (18:11)
[2022-12-03 19:39] LABS: Glucose,Whole Blood 164 mg/dL (70-110)
[2022-12-03] MEDS: MELATONIN 3 MG TABLET PO SCH (19:51)
[2022-12-04] MEDS: LEVOTHYROXINE 50 MCG TAB PO SCH (06:28)
[2022-12-04 07:16] LABS: Anisocytosis Slight; HCT 21.5 % (39.0-53.0); MCH 30.2 pg (25.0-35.0); MCHC 32.3 g/dL (31.0-37.0); MCV 93.7 fL (80.0-100.0); Macrocytosis Slight; Mean Platelet Volume 9.5; RDW 19.8 % (11.5-15.5); WBC 15.8 k/uL (3.8-10.6)
[2022-12-04 07:31] LABS: HGB 6.9 gm/dL (13.0-17.5); Platelet Count 81 k/uL (150-450)
[2022-12-04 07:32] LABS: Glucose,Whole Blood 141 mg/dL (70-110)
[2022-12-04] MEDS: INSULIN ASPART (NovoLOG) 100 UNIT/ML VIAL SQ SCH ×4 (07:41→21:21)
[2022-12-04] MEDS: MAGNESIUM OXIDE 400 MG TAB PO SCH (08:33)
[2022-12-04] MEDS: CHOLESTYRAMINE (WITH SUGAR) 4 GM PACKET PO SCH ×2 (08:33→18:43)
[2022-12-04] MEDS: CALCIUM CARBONATE 500 MG CHEWABLE PO SCH ×3 (08:33→21:21)
[2022-12-04] MEDS: INSULIN DETEMIR (LEVEMIR) 100 UNIT/ML SYR SQ SCH (08:33)
[2022-12-04] MEDS: PYRIDOXINE 50 MG TAB PO SCH (08:34)
[2022-12-04] MEDS: FUROSEMIDE 40 MG TAB PO SCH (08:34)
[2022-12-04] MEDS: CYANOCOBALAMIN 500 MCG TAB PO SCH (08:34)
[2022-12-04] MEDS: THIAMINE 100 MG TAB PO SCH (08:34)
[2022-12-04] MEDS: SODIUM BICARBONATE TAB 650 MG TAB PO SCH ×2 (08:34→21:22)
[2022-12-04] MEDS: FOLIC ACID 1 MG TAB PO SCH (08:34)
[2022-12-04] MEDS: CHOLECALCIFEROL 25 MCG (1000 IU) TABLET PO SCH (08:34)
[2022-12-04] MEDS: PANTOPRAZOLE 40 MG/10 ML VIAL IVP SCH ×2 (08:34→21:22)
[2022-12-04] MEDS: FLUoxetine HCL 20 MG CAP PO SCH (08:35)
[2022-12-04] MEDS: DEXAMETHASONE SOD PHOSPHATE 4 MG/ML 1 ML VIAL IVP SCH ×3 (08:35→21:22)
[2022-12-04] MEDS: ASCORBIC ACID 500 MG TAB PO SCH ×2 (08:35→21:22)
[2022-12-04] MEDS: DILTIAZEM ORAL 30 MG TAB PO SCH ×3 (10:41→21:22)
[2022-12-04 12:43] LABS: Glucose,Whole Blood 146 mg/dL (70-110)
--- NOTE | 2022-12-04 13:23 | P.PN ---
Subjective Progress Note Date: 12/04/22 Principal diagnosis: Abnormal MRI questionable discitis Patient is a 62-year-old male who is unvaccinated for COVID-19 patient was brought into the ER for evaluation of weakness no energy mention the patient was not able to get stand up and go to the bathroom patient has been dealing with the diarrhea off and on for couple of weeks, patient was noticed to have a positive covid test, however the patient was not hypoxic and CT abdominal pelvis with few bibasilar patchy groundglass opacity representing atelectasis and no evidence of colitis. Patient did have a drop in his hemoglobin and underwent a CT angiogram that demonstrated a large intramuscular hematoma in the left iliac is muscle in the retroperitoneum. Patient is status post Tali filter placement on 11/25/2022, the patient is status post EGD and colonoscopy on 12/03/2022 with evidence of small esophageal ulcer and nonbleeding and no active source of bleeding in the colon On today's evaluation that is 12/04/2022, the patient denies any fever or chills, the patient is breathing comfortably on room air, The patient denies chest pain, no significant cough or sputum production no nausea no vomiting no abdominal pain and denies pain to the upper or lower back area Objective - Vital Signs Vital signs: Vital Signs Temp 98.2 F 12/04/22 12:35 Pulse 71 12/04/22 12:35 Resp 14 12/04/22 12:35 BP 108/72 12/04/22 12:35 Pulse Ox 100 12/04/22 12:35 FiO2 Intake & Output 12/03/22 12/04/22 12/04/22 18:59 06:59 18:59 Intake Total 530 118 Balance 530 118 Intake: IV 100 Oral 120 118 Blood Product 310 0 Unit 0 Rc As-1 Unit 310 [id number] Other: Voiding Method Bedpan Bedpan Bedpan Diaper Diaper Diaper # Voids 1 3 1 - Exam GENERAL DESCRIPTION: An elderly male lying in bed in no distress RESPIRATORY SYSTEM: Unlabored breathing , decreased breath sounds at bases HEART: S1 S2 regular rate and rhythm , ABDOMEN: Soft , no tenderness EXTREMITIES: No edema feet - Labs CBC & Chem 7: 12/04/22 06:13 12/02/22 06:07 Labs: Abnormal Lab Results - Last 24 Hours (Table) 12/03/22 12/03/22 12/04/22 Range/Units 17:25 19:38 06:13 WBC 14.5 H 15.8 H (3.8-10.6) k/uL RBC 2.37 L 2.30 L (4.30-5.90) m/uL Hgb 7.2 L 6.9 L* (13.0-17.5) gm/dL Hct 22.2 L 21.5 L (39.0-53.0) % RDW 19.4 H 19.8 H (11.5-15.5) % Plt Count 76 L 81 L (150-450) k/uL Neutrophils # 12.8 H (1.3-7.7) k/uL POC Glucose (mg/dL) 164 H (70-110) mg/dL Crossmatch 12/04/22 12/04/22 Range/Units 07:31 09:44 WBC (3.8-10.6) k/uL RBC (4.30-5.90) m/uL Hgb (13.0-17.5) gm/dL Hct (39.0-53.0) % RDW (11.5-15.5) % Plt Count (150-450) k/uL Neutrophils # (1.3-7.7) k/uL POC Glucose (mg/dL) 141 H (70-110) mg/dL Crossmatch See Detail Assessment and Plan (1) COVID-19 Current Visit: Yes Status: Acute Priority: High Code(s): U07.1 - COVID-19 SNOMED Code(s): 150157955 Plan: 1patient did have a abnormal MRI of the cervical spine as well as lumbar spine with a questionable discitis reported by radiologist however the patient did have normal sed rate and a CRP 2, patient is currently being monitor closely off antibiotic therapy to increase the yield of any culture to be done at the time of surgery . Apparently the patient is not stable to undergo surgery per orthopedics, IR unable to do CT-guided aspirate of the affected lumbar spine for microbiological diagnosis 2leukocytosis is more likely steroid related as well as reactive to his bleed as the patient did have evidence of muscle hematoma as well as retroperitoneal hematoma and the patient is status post Tali filter placement 3-patient is status post EGD and colonoscopy with evidence of lower esophageal ulcer but nonbleeding or active source of bleeding in the colon , patient currently to have small bowel capsule endoscopy in process 4patient white count is mildly up to 15,000 today and will be monitored closely off antibiotic therapy Time with Patient: Less than 30
--- NOTE | 2022-12-04 15:17 | P.PN ---
Subjective Patient is seen in follow-up for acute kidney injury on chronic kidney disease. Renal function fairly stable. Jo catheter discontinued. Currently with external catheter Nonoliguric. No active complaints. Hemoglobin was 6.9 today. Serum creatinine at 1.0 Status post EGD and colonoscopy on 12/03/22 which showed 1 cm nonbleeding mid esophageal ulcer and colonoscopy showed thick black stools throughout the entire colon with no active bleeding. Hemoglobin dropped again to 6.9g/dL Receiving PRBCs. No active bleeding noted. Objective - Vital Signs Vital signs: Vital Signs Temp 98.4 F 12/04/22 14:55 Pulse 71 12/04/22 14:55 Resp 14 12/04/22 14:55 BP 127/79 12/04/22 14:55 Pulse Ox 97 12/04/22 14:55 FiO2 Intake & Output 12/03/22 12/04/22 12/04/22 18:59 06:59 18:59 Intake Total 530 546 Balance 530 546 Intake: IV 100 Oral 120 236 Blood Product 310 310 Rc As-1 Unit 310 [id number] Rc As-1 Unit 310 [id number] Other: Voiding Method Bedpan Bedpan Bedpan Diaper Diaper Diaper # Voids 1 3 1 - Exam Patient is comfortable awake alert oriented 3 Examination of the heart S1 and S2 Examination of the lungs bilateral breath sounds are heard Abdomen is soft nontender Examination lower extremity shows 1+ edema bilaterally, more in the left leg [employer] exam grossly intact - Labs CBC & Chem 7: 12/04/22 06:13 12/02/22 06:07 Labs: Abnormal Lab Results - Last 24 Hours (Table) 12/03/22 12/03/22 12/04/22 Range/Units 17:25 19:38 06:13 WBC 14.5 H 15.8 H (3.8-10.6) k/uL RBC 2.37 L 2.30 L (4.30-5.90) m/uL Hgb 7.2 L 6.9 L* (13.0-17.5) gm/dL Hct 22.2 L 21.5 L (39.0-53.0) % RDW 19.4 H 19.8 H (11.5-15.5) % Plt Count 76 L 81 L (150-450) k/uL Neutrophils # 12.8 H (1.3-7.7) k/uL POC Glucose (mg/dL) 164 H (70-110) mg/dL Crossmatch 12/04/22 12/04/22 12/04/22 Range/Units 07:31 09:44 12:42 WBC (3.8-10.6) k/uL RBC (4.30-5.90) m/uL Hgb (13.0-17.5) gm/dL Hct (39.0-53.0) % RDW (11.5-15.5) % Plt Count (150-450) k/uL Neutrophils # (1.3-7.7) k/uL POC Glucose (mg/dL) 141 H 146 H (70-110) mg/dL Crossmatch See Detail Assessment and Plan Assessment: 1. Acute kidney injury mostly prerenal secondary to acute blood loss anemia and urinary retention. Renal function stable. Creatinine 1.0. Patient received IV contrast on 11/23/2022. Jo catheter has been removed. 2. Chronic kidney disease stage II with baseline creatinine 1-1.1. 3. Urinary retention. Jo catheter removed 11/27/2022. On Flomax. 4. Lower extremity edema maintained on Lasix. Better. 5. Hyperkalemia secondary to GI bleed and acidosis. Stable. 6. GI bleed status post blood transfusion this admission. CAT scan showed large intramuscular hematoma. Surgery following. 7. Metabolic acidosis secondary to acute kidney injury and GI losses maintained on oral bicarbonate. 8. Hypomagnesemia from diuresis. Replaced. Stable. Plan: Continue with oral Lasix, increase to bid Check renal profile in am Decreased sodium bicarb
--- NOTE | 2022-12-04 15:31 | P.PN ---
Subjective Progress Note Date: 12/04/22 Principal diagnosis: Anemia, LLE DVT, Soft tissue bleeding on anticoagulation Pt reports frustrated at long hospitalization. He had upper and lower endoscopy, capsule as planned. Sisters at the bedside. No acute physical complaints. No great improvements in condition. Denies respiratory symptoms. Objective - Vital Signs Vital signs: Vital Signs Temp 98.4 F 12/04/22 14:55 Pulse 71 12/04/22 14:55 Resp 14 12/04/22 14:55 BP 127/79 12/04/22 14:55 Pulse Ox 97 12/04/22 14:55 FiO2 Intake & Output 12/03/22 12/04/22 12/04/22 18:59 06:59 18:59 Intake Total 530 546 Balance 530 546 Intake: IV 100 Oral 120 236 Blood Product 310 310 Rc As-1 Unit 310 [id number] Rc As-1 Unit 310 [id number] Other: Voiding Method Bedpan Bedpan Bedpan Diaper Diaper Diaper # Voids 1 3 1 - Exam Well-developed, adequately nourished, no acute distress, respirations even and unlabored at rest. - Labs CBC & Chem 7: 12/04/22 06:13 12/02/22 06:07 Labs: Abnormal Lab Results - Last 24 Hours (Table) 12/03/22 12/03/22 12/04/22 Range/Units 17:25 19:38 06:13 WBC 14.5 H 15.8 H (3.8-10.6) k/uL RBC 2.37 L 2.30 L (4.30-5.90) m/uL Hgb 7.2 L 6.9 L* (13.0-17.5) gm/dL Hct 22.2 L 21.5 L (39.0-53.0) % RDW 19.4 H 19.8 H (11.5-15.5) % Plt Count 76 L 81 L (150-450) k/uL Neutrophils # 12.8 H (1.3-7.7) k/uL POC Glucose (mg/dL) 164 H (70-110) mg/dL Crossmatch 12/04/22 12/04/22 12/04/22 Range/Units 07:31 09:44 12:42 WBC (3.8-10.6) k/uL RBC (4.30-5.90) m/uL Hgb (13.0-17.5) gm/dL Hct (39.0-53.0) % RDW (11.5-15.5) % Plt Count (150-450) k/uL Neutrophils # (1.3-7.7) k/uL POC Glucose (mg/dL) 141 H 146 H (70-110) mg/dL Crossmatch See Detail Assessment and Plan (1) Normocytic normochromic anemia Current Visit: Yes Status: Acute Priority: High Code(s): D64.9 - ANEMIA, UNSPECIFIED SNOMED Code(s): 85694174 (2) COVID-19 Current Visit: Yes Status: Acute Priority: High Code(s): U07.1 - COVID-19 SNOMED Code(s): 796139719 (3) Left leg DVT Current Visit: Yes Status: Acute Priority: High Code(s): I82.402 - ACUTE EMBOLISM AND THOMBOS UNSP DEEP VEINS OF L LOW EXTREM SNOMED Code(s): 164865021 Plan: Anemia -Persistent. Patient was given a unit of blood yesterday, patient did not have a response. EGD/colonoscopy done, report reviewed, no acute findings. Capsule is planned. Tagged RBC scan ordered. -DIC labs- negative -Hemolysis -negative -Transfuse PRBCs for hemoglobin less than 7.0. LLE DVT -Heparin D/C on 11/23/22 due to large hematoma of left iliac muscle and retroperitoneal hematoma inferior to left kidney. Vascular has placed an IVC filter as patient is not a candidate for anticoagulation at this time. Repeat CT abd/pelvis on 11/30/21 showed improvement in hematoma.
--- NOTE | 2022-12-04 15:34 | P.PN ---
Subjective Progress Note Date: 12/04/22 Paroxysmal atrial fibrillation Intractable nausea/vomiting/diarrhea Profound hypokalemia Acute renal injury COVID-19 infection 62-year-old male in the emergency department for diarrhea. She notes diarrhea starting and he asked progressively gotten worse. He reports he stood up from a chair and had an episode of diarrhea, admits he still maintains bowel function. He has not tried anything for his symptoms. He denies nausea, vomiting, abdominal pain, palpitations, fevers. Denies recent travel or recent antibiotic use. He is scheduled to have his first colonoscopy in january of 2023. Patient had an initial lab work is remarkable for WBC is 11.4, hemoglobin 8.7, INR 1.2, sodium 133, potassium 2.6 lactic acid 2.9, calcium 6.3, magnesium 0.8, lipase 60, COVID positive. I interpreted the following; CT abdomen without contrast remarkable for fluid filled colon without focal wall thickening or surrounding inflammatory changes. Patient was given 2 L fluids, potassium, magnesium and calcium during his course of the ED. 11/08/2022 Patient is seen and evaluated on selective care unit; he went into atrial fibrillation with rapid ventricular response he was transferred to the third floor/selective minute. The patient did not have any symptoms of heart racing or fluttering and no dizziness or lightheadedness and no presyncope or syncope and no symptoms of chest pain or chest discomfort or shortness of breath. No prior history of atrial fibrillation. No history of coronary artery disease or congestive heart failure or cardiac arrhythmia and the patient never seen a lab animal technician in the past. Beside that no history of diabetes or hypertension or dyslipidemia. The patient was started initially on Cardizem drip but his pressure did go down and for that reason he was switched into amiodarone IV and subsequently converted to normal sinus mechanism and since then he has been maintaining normal sinus mechanism. Further investigation was performed including CBC and that showed a hemoglobin of 7.7. The patient has no history of bleeding. B eside that he underwent a computed tomography scan of the abdomen and pelvis because of the abdominal discomfort that showed no acute abnormalities. The troponin came in to be slightly elevated likely secondary to tachycardia. The EKG showed sinus rhythm now with no significant ST or T-wave abnormalities. Blood work reveals mild elevation of troponin; Patient has been evaluated by cardiology and recommended to continue with IV fluids, replace electrolytes; IV amiodarone is to be discontinued patient is transition to oral dose daily 11/09/2022 Patient is seen and evaluated in follow-up this morning and continues to feel generalized weakness and continues with loose stools. Per nursing staff when assisting to clean the patient up patient was significantly weak on the right. Patient denied any headache, dizziness, or lightheadedness. Will obtain a CT of the brain and also consult neurology. Recommend PT/OT therapy evaluation for significant weakness. C. diff testing was negative on the stool and will add Imodium and encourage oral intake and advance as tolerated. Patient is ma intaining on vitamins and zinc supplements along with subcutaneous heparin with anxiety following closely. Patient denies chest pain or shortness of breath. Afebrile. Recommend a.m. labs as well. 11/10/2022 Patient is seen in follow-up today with multiple medical consultations including cardiology, hematology, infectious disease, and now neurology following. Patient with significant weakness in all upper and lower extremities with neurology undergoing workup recommending aspirin as patient is not on any anticoagulation at this time. Cardiology is following and patient was transitioned back to IV Cardizem although being changed to oral with close monitoring. Magnesium found to be significantly low at 1.2 and will replace per protocol and recommend repeat labs. Hemoglobin is mildly low at 7.4 and undergoing anemia workup with hematology following. Patient with Covid and extreme weakness will need ECF and discharge planning in process. Recommend close monitoring of labs and replace electrolytes per protocol. Patient was started on Imodium as C. diff testing 2 was negative. Patient continues to have loose stools although somewhat improved. Encouraged oral intake and incr eased activity as tolerated. Recommend PT/OT therapy daily. Patient denies chest pain or shortness of breath. Patient is 97% on room air. Patient will continue on vitamin and zinc supplements with anxiety following closely. Recommend gentle IV hydration. 11/11/2022 Patient is seen and evaluated in follow-up with multiple medical consultations following including infectious disease and neurology. Oncology following undergoing anemia workup. Hemoglobin was found to be 6.5 today and will order 1 unit of PRBC and recommend close monitoring. No active bleeding noted. Patient was started on baby aspirin per neurology and scheduled to undergo MRI of the cervical spine today. Patient continues with significant weakness and will need rehab upon discharge. Patient is maintained on vitamin and zinc supplements and was also being followed by cardiology. Adjustments to medications being done and patient is on oral Cardizem. Will follow-up with repeat labs. Patient is afebrile and denies shortness of breath. Patient clinically appears to be improving. Per nursing staff patient is incontinent of stool in continues to be somewhat loose although less frequent. C. diff testing was negative and stool cultures are negative. Encouraged oral intake. Will discuss with case management about discharge planning to ECF as he will require a Covid hub. 11/12/2022 Patient is seen and evaluated in follow-up today with multiple medical consultations following including infectious disease, cardiology, neurology. Patient's hemoglobin is low again at 6.8 and will give 1 unit. Recommend holding aspirin. Patient did have an elevated d-dimer and CTA was ordered. GI was also consulted for anemia. Patient continues to have incontinence of stool and loose stools and is maintained on Questran and will be given Imodium as needed. Patient continues with generalized weakness and fatigue and also having some lower extremity pain and swelling and have ordered Dopplers of bilateral lo wer extremities as well. Patient with Covid vitamin and zinc supplements and anticoagulation with subcu heparin. Hematology also following for anemia. Recommend repeat CBC this evening and will transfuse another unit as well. Cardiology following and adjustments to medications being made and patient also being started on low-dose diuretics. Patient is having low-grade temps of 99.3- 99.6 and patient continues to be 95% or above on room air. Blood pressure on the lower side although stable. Stool cultures and C. diff testing have been negative. Patient started on antibiotics per ID recommendations in the form of Zithromax and ceftriaxone. Reviewed iron studies which are low and will give IV iron as well. Electrolytes continue to be low and will replace per protocol. Patient will need ECF once stabilized and discharged 11/13/2022 Patient is seen today with multiple medical consultations following and undergoing neurological workup and having bilateral upper and lower extremity weakness. Neurology recommends orthopedic consultation which is currently pending. Patient did have some movement in his diarrhea and reports becoming more formed and less frequent. Patient continues to be incontinent of this. Patient being started on antibiotics with anxiety following an also continues to have anemia. GI recommending continuing with hematology workup. Multiple images including MRIs and pending at time. Patient with significant weakness will be going to rehab when stable. A.m. labs are pending. 11/24/2022 Patient is currently resting in the bed. Awake alert and oriented x3. No complaints of chest pain or shortness of breath. Left lower abdominal discomfort is improved. Hemoglobin is stable. Vascular surgery has seen the patient is planning for IVC filter placement. Heparin is on hold due to retroperitoneal bleed. Laboratory data showed WBC 25.6 hemoglobin 7.1 and platelets 159 sodium 131 potassium 5.7 chloride 112 bicarb is 37 creatinine 1.18 and calcium 7.0. Nephrology, ID and vascular surgery is on board. 11/25/2022 Patient is currently resting in bed. Awake alert and oriented x3. On room air. No complaints of chest pain or shortness of breath. No abdominal pain. No nausea vomiting abdominal pain or diarrhea. Patient is scheduled for IVC filter placement today. Otherwise hemoglobin level is 6.8 and 1 unit of PRBC was ordered. Other laboratory data showed WBC 20.6 hemoglobin 6.8 and platelets 149 sodium 135 potassium 5.4 chloride 101 bicarb is 23 BUN 34 and creatinine 1.25. Magnesium 1.6. Patient is being continued dexamethasone as per orthopedic surgery. Also on IV Lasix. Nephrology and general surgery is on board. Patient was given a dose of Lokelma yesterday. 11/26/2022 Patient is currently resting in bed. Awake alert and oriented x3. No complaints of back pain or abdominal pain. No nausea vomiting abdominal pain or diarrhea. No cough or sputum production. Currently on room air. Patient is status post IVC filter placement on 11/25/2022. Patient received 1 unit of PRBC yesterday and hemoglobin improved to 7.6 today. Level data showed WBC 22.3 hemoglobin 7.6 and platelets 141 sodium 136 potassium 5.3 chloride 101 bicarb is 23 BUN 32 and creatinine 1.23 and blood sugar is 125 and calcium 7.2. Magnesium 1.9. Follow-up CBC and BMP was ordered. Orthopedic surgery is planning for OR when medically stable tomorrow. 11/28/2022 Patient is seen and evaluated in follow-up and apparently orthopedics is scheduled for surgical intervention is patient is unstable. Recommending awaiting medical clearance. Infectious disease following and patient is being maintained and monitored closely of IV antibiotic therapy. Patient is status post [place] filter placement any stable. No active bleeding noted. General surgery following for hematoma on the back with no surgical interventions planned. Patient with significant weakness recommend PT/OT therapy and will discuss with case management about discharge planning and ECF. Recommend follow-up labs in the a.m. she is currently afebrile denies chest pain or shortness of breath. He stable. No active bleeding noted. Patient is tolerating diet with no reports of nausea or vomiting noted. 11/29/2022 Patient was seen in follow-up this morning with orthopedics along with infectious disease, nephrology, general surgery, hematology following. Vital signs of been stable patient is continued on dexamethasone per orthopedics and will discuss about weaning parameters. Patient is also maintained off of antibiotics. Patient was significant weakness recommend PT/OT therapy and rehab on discharge. Patient continues to have elevated white blood count is infectious disease following and repeat inflammatory markers ordered. Patient is afebrile denies chest pain or shortness of breath. 11/30/2022 Patient is seen and evaluated in follow-up today with multiple medical consultations following. Hemoglobin was found to be critically low at 5.5 with a hematocrit of 17.6 and awaiting to receive 2 units of blood. Patient is status post IVC filter this admission as he was having anemia with acute on chronic DVT of the left proximal vein and also found to have a large intramuscular hematoma of the left iliac muscle, retroperitoneal hematoma. Gen. surgery services following as well. Patient also noted be having black tarry stools and will reconsult GI as we have services available tomorrow. Patient was having some abdominal discomfort and will obtain CT angiogram and evaluate for bleeding. Orthopedics following and were initially discussing surgical intervention of the lower spine although on hold as patient is not medically stable for surgical intervention at this time. Patient is maintained on IV dexamethasone and being weaned per orthopedics. Patient continues with significant weakness and bilateral foot drop and inability to ambulate and generalized edema noted throughout. Patient is maintained on oral Lasix and will give a dose of IV Lasix posttransfusion and follow-up with repeat labs this evening. Patient is afebrile denies chest pain or shortness of breath. Patient is frustrated and appears depressed. Patient denies any suicidal thoughts or wanting to harm himself or others. 12/01/2022 Patient is seen and evaluated in follow-up this morning hemoglobin post 2 units of packed red blood cells was 7.7. CT angiogram abdomen and pelvis was negative for any acute bleeding and GI was placed on consult with patient being scheduled for EGD/colonoscopy. Patient is afebrile denies chest pain or shortness of breath. Patient is tolerating diet with no reports of nausea vomiting noted. Orthopedics following as well and no plans for immediate interventions at this time until patient is more stable. No reports of chest pain or shortness of breath patient is sitting up in the bed on room air. Will follow-up with repeat labs. 12/02/2022 Patient is seen and evaluated this morning currently sitting up in the bed with family at the bedside. Patient was tentatively scheduled for EGD/colonoscopy although did not complete the prep still having formed brown stools continue with bowel prep and scheduled for EGD/colonoscopy in the a.m. Repeat labs reveal hemoglobin of 5.9 and will transfuse recommend follow-up labs. Patient is afebrile with no reports of nausea or vomiting noted. Patient denies chest pain or shortness of breath. Hematology following as well undergoing further workup for anemia. 12/03/2022 Patient is seen and evaluated in follow-up this morning currently nothing by mouth patient completed a bowel prep and initially per nursing staff had clear stools now continuing to have loose black sludgy stools 3 and C. diff ordered. Hemoglobin was found to be 6.9 and awaiting to receive 1 unit of PRBC. Plan is for EGD/colonoscopy with GI today. Patient is currently afebrile denies chest pain or shortness of breath. Patient is extremely anxious and persist to ask daily of when he can have his orthopedic interventions done. Discussed with orthopedic team and there are no plans for immediate surgical intervention during this admission. Patient with Significant weakness and recommend PT/OT therapy daily. Will resume diet once cleared by GI after endoscopic intervention. Recommend follow-up labs and will continue to monitor closely. 12/04/2022 Patient is seen this morning hemoglobin is 6.9 and per nursing staff has not had another bowel movement. Patient is currently undergoing a tagged RBC study with the capsule and pending report. Patient will be given a unit of PRBC and recommend repeat CBC in the evening. Multiple medical consultations following and continuing with bleeding workup. Denies chest pain or shortness of breath. Patient is afebrile and denies nausea or vomiting. Patient is tolerating diet. Patient reporting some insomnia and difficulty in sleeping will add Restoril as needed. Recommend close monitoring of vital signs and labs and will follow-up with the patient. Review of systems: Constitutional: No reports of fatigue, no fever, or chills Cardiovascular: No reports of chest pain or palpitations Respiratory: No reports of shortness of breath or cough GI: No reports of nausea, vomiting, reports no stools today : No reports of dysuria or retention Neurovascular: reports of generalized weakness reports difficulty in sleeping All medications have been reviewed Active Medications Acetaminophen (Acetaminophen Tab 325 Mg Tab) 650 mg PO Q6HR PRN PRN Reason: Mild Pain or Fever > 100.5 Last Admin: 11/23/22 05:38 Dose: 650 mg Ascorbic Acid (Ascorbic Acid 500 Mg Tab) 500 mg PO BID [facility] Last Admin: 12/04/22 08:35 Dose: 500 mg Calcium Carbonate/Glycine (Calcium Carbonate 500 Mg Chewable) 500 mg PO TID [facility] Last Admin: 12/04/22 08:33 Dose: 500 mg Cholecalciferol (Cholecalciferol 25 Mcg (1000 Iu) Tablet) 50 mcg PO DAILY [facility] Last Admin: 12/04/22 08:34 Dose: 50 mcg Cholestyramine Resin (Cholestyramine (With Sugar) 4 Gm Packet) 4 gm PO BID@1000,1800 [facility] Last Admin: 12/04/22 08:33 Dose: 4 gm Cyanocobalamin (Cyanocobalamin 500 Mcg Tab) 1,000 mcg PO DAILY [facility] Last Admin: 12/04/22 08:34 Dose: 1,000 mcg Dexamethasone Sodium Phosphate (Dexamethasone Sod Phosphate 4 Mg/Ml 1 Ml Vial) 2 mg IVP Q8HR [facility] Last Admin: 12/04/22 08:35 Dose: 2 mg Dextrose/Water (Dextrose 50% Syringe 50 Ml) 25 ml IVP PER PROTOCOL PRN; Protocol PRN Reason: Hypoglycemia Dextrose/Water (Dextrose 50% Syringe 50 Ml) 50 ml IVP PER PROTOCOL PRN; Protocol PRN Reason: Hypoglycemia Diclofenac Sodium (Diclofenac Sodium Gel 100 Gm Tube) 2 gm TOPICAL QID PRN; Protocol PRN Reason: Pain Diltiazem HCl (Diltiazem Oral 30 Mg Tab) 30 mg PO TID [facility] Last Admin: 12/04/22 10:41 Dose: 30 mg Fluoxetine HCl (Fluoxetine Hcl 20 Mg Cap) 20 mg PO DAILY [facility] Last Admin: 12/04/22 08:35 Dose: 20 mg Folic Acid (Folic Acid 1 Mg Tab) 0.5 mg PO DAILY [facility] Last Admin: 12/04/22 08:34 Dose: 0.5 mg Furosemide (Furosemide 40 Mg Tab) 40 mg PO DAILY [facility] Last Admin: 12/04/22 08:34 Dose: 40 mg Furosemide (Furosemide 10 Mg/Ml 4 Ml Vial) 40 mg IV ONCE PRN PRN Reason: Edema Last Admin: 11/30/22 18:04 Dose: 40 mg Insulin Aspart (Insulin Aspart (Novolog) 100 Unit/Ml Vial) 0 unit SQ [facility]; Protocol Last Admin: 12/04/22 12:49 Dose: Not Given Insulin Detemir (Insulin Detemir (Levemir) 100 Unit/Ml Syr) 10 unit SQ DAILY@0700 [facility] Last Admin: 12/04/22 08:33 Dose: 10 unit Levothyroxine Sodium (Levothyroxine 50 Mcg Tab) 50 mcg PO DAILY@0630 [facility] Last Admin: 12/04/22 06:28 Dose: 50 mcg Loperamide HCl (Loperamide 2 Mg Cap) 2 mg PO QID PRN PRN Reason: Diarrhea Last Admin: 11/12/22 09:47 Dose: 2 mg Magnesium Oxide (Magnesium Oxide 400 Mg Tab) 400 mg PO DAILY [facility] Last Admin: 12/04/22 08:33 Dose: 400 mg Miscellaneous Information (Magnesium Replacement Protocol 1 Each Misc) 1 each MISCELLANE DAILY PRN; Protocol PRN Reason: Per Protocol Naloxone HCl (Naloxone 0.4 Mg/Ml 1 Ml Vial) 0.2 mg IV Q2M PRN PRN Reason: Opioid Reversal Pantoprazole Sodium (Pantoprazole 40 Mg/10 Ml Vial) 40 mg IVP BID [facility] Last Admin: 12/04/22 08:34 Dose: 40 mg Pyridoxine HCl (Pyridoxine 50 Mg Tab) 50 mg PO DAILY [facility] Last Admin: 12/04/22 08:34 Dose: 50 mg Sodium Bicarbonate (Sodium Bicarbonate Tab 650 Mg Tab) 650 mg PO BID [facility] Last Admin: 12/04/22 08:34 Dose: 650 mg Tamsulosin HCl (Tamsulosin 0.4 Mg Cap.Er.24h) 0.4 mg PO PC-SUPPER [facility] Last Admin: 12/03/22 18:11 Dose: 0.4 mg Temazepam (Temazepam 15 Mg Cap) 7.5 mg PO HS PRN PRN Reason: Insomnia Thiamine HCl (Thiamine 100 Mg Tab) 100 mg PO DAILY [facility] Last Admin: 12/04/22 08:34 Dose: 100 mg Physical exam: Gen: This is a 62-year-old male awake, alert and oriented 3, well-developed, well-nourished, ill-appearing. Pale HEENT: Head is atraumatic, normocephalic. Pupils equal, round. Sclerae is anicteric. NECK: Supple. No JVD. No lymphadenopathy. No thyromegaly. LUNGS: Breath sounds diminished bilaterally with some scattered rhonchi noted. No intercostal retractions. HEART: S1, S2 are muffled, irregular ABDOMEN: Soft. Mildly tender on palpation. Bowel sounds are present. No masses. EXTREMITIES: No pedal edema. No calf tenderness. Lower extremity edema. Bilateral upper and lower extremity weakness generalized edema noted NEUROLOGICAL: Patient is awake, alert and oriented x3. Cranial nerves 2 through 12 are grossly intact. Diffusely weak Assessment: Acute blood loss anemia. hb 5.9 due to retroperitoneal bleed with hematoma. Hyperkalemia due to GI bleed. Improved Bilateral Pneumonia with superimposed gram-negative bacterial infection is suspected mainly in the right lower lobe. Completed antibiotic course. Recent COVID-19 infection with pneumonia Acute hypoxic respiratory failure. Titrate down to room air.. Sepsis secondary to above, resolved Possible discitis as per MRI cervical spine. Hyperkalemia due to urinary retention and acute kidney injury. Improving now. Anemia with vitamin B12 deficiency and currently on IM B12 replacement therapy Elevated troponin, most likely type II. No chest pain, normal LV function Low vitamin B12 and B6 Nonocclusive thrombosis of the left leg status post Tali filter placement Paroxysmal atrial fibrillation no anticoagulation with score of 0 per [employer] DVT prophylaxis; SCDs No code Plan: Recommend to continue current medications and management with multiple medical consultations following. Hemoglobin 6.9 again today and will receive 1 unit of PRB. She has received 9 total units during hospitalization. Patient attempted colonoscopy although black stool noted throughout with no active bleeding noted after intense irrigation and EGD with some biopsies with no active bleeding noted. GI recommending small capsule study which is currently undergoing and patient has not passed the study as of yet and has had no further bowel movements. GI services will no longer be available and will need reconsult surgery if requiring any interventions Orthopedics following as needed and awaiting surgical intervention until more stable. Discussed with orthopedics team and no plans for surgical intervention this admission Will follow-up with repeat labs and continue to monitor closely Recommend PT/OT therapy. Patient continues with significant weakness with plantar ECF once stabilized Due to multiple complex medical issues, prognosis is extremely guarded The impression and plan of care has been dictated by Priscilla Steven, Nurse Practitioner as directed. MD Elen I have performed a history and examination and MDM of this patient, discussed the same with the dictator, and agree with the dictator's assessment and plan as written ,documented as a scribe. Based on total visit time, I have performed more than 50% of the visit. Objective - Vital Signs Vital signs: Vital Signs Temp 97.5 F L 12/04/22 08:00 Pulse 71 12/04/22 08:00 Resp 16 12/04/22 08:00 BP 109/71 12/04/22 08:00 Pulse Ox 99 12/04/22 08:00 FiO2 Intake & Output 12/03/22 12/04/22 12/04/22 18:59 06:59 18:59 Intake Total 530 118 Balance 530 118 Intake: IV 100 Oral 120 118 Blood Product 310 Rc As-1 Unit 310 [id number] Other: Voiding Method Bedpan Bedpan Diaper Diaper # Voids 1 3 1 - Labs CBC & Chem 7: 12/04/22 06:13 12/02/22 06:07 Labs: Abnormal Lab Results - Last 24 Hours (Table) 11/30/22 12/03/22 12/03/22 Range/Units 11:40 11:35 17:25 WBC 14.5 H (3.8-10.6) k/uL RBC 2.37 L (4.30-5.90) m/uL Hgb 7.2 L (13.0-17.5) gm/dL Hct 22.2 L (39.0-53.0) % RDW 19.4 H (11.5-15.5) % Plt Count 76 L (150-450) k/uL Neutrophils # 12.8 H (1.3-7.7) k/uL POC Glucose (mg/dL) 161 H (70-110) mg/dL Crossmatch See Detail 12/03/22 12/04/22 12/04/22 Range/Units 19:38 06:13 07:31 WBC 15.8 H (3.8-10.6) k/uL RBC 2.30 L (4.30-5.90) m/uL Hgb 6.9 L* (13.0-17.5) gm/dL Hct 21.5 L (39.0-53.0) % RDW 19.8 H (11.5-15.5) % Plt Count 81 L (150-450) k/uL Neutrophils # (1.3-7.7) k/uL POC Glucose (mg/dL) 164 H 141 H (70-110) mg/dL Crossmatch
--- NOTE | 2022-12-04 15:50 | P.PN ---
Subjective Progress Note Date: 12/04/22 Principal diagnosis: Anemia, GI bleed 62-year-old gentleman who initially presented to the hospital secondary to diarrhea and found to be covid positive. Gastroenterology was initially consulted at that time for diarrhea and anemia. Diarrhea had been improving, and there was no reported black stool or blood in his stool at that time. Hematology was consulted for anemia believed secondary to virus. He then developed weakness in all 4 extremities and was being evaluated by orthospine and was scheduled to have surgical intervention first on his cervical spine then lumbar spine later in the week. He does have a history of DVT and has been on IV heparin for his clots with the plan of stopping heparin for the surgery. Last week he was noted to have a drop in his hemoglobin and complains of some abdominal discomfort and ultimately underwent a CT angiogram that demonstrated a large intramuscular hematoma in the left iliac is muscle in the retroperitoneum. Due to this large retroperitoneal hematoma as well as his DVT vascular surgery was consulted for IVC filter placement that patient underwent on 11/25/2022. His hemoglobin had stabilized however yesterday he had a drop in his hemoglobin to 5.5. Nursing reported loose black bowel movements yesterday and today. Has bruising along his left flank has not increased in size. He has no palpable hematoma in the abdomen or flank. Hs currently receiving 2 units of blood. He denies any shortness of breath, chest pain, abdominal pain, nausea or vomiting. Denies any fevers chills or body aches. Still has weakness in his upper and lower extremities. Orthospine still following patient closely. Vascular surgery had been also very consulted for concern for possibility of bleed from retroperitoneal and left iliac muscle hematoma. CT angiogram of the abdomen completed that showed no active bleed and actual improvement in the hematoma. Patient had positive occult stool. He currently denies any abdominal pain nausea or vomiting. Has still had some black stools. He received 2 units of blood yesterday with a repeat hemoglobin today of 7.7. Patient is actually scheduled for outpatient colonoscopy on 12/08/[address] Lundberg. 12/02/2022: Patient seen and examined today as follow-up. He was scheduled for EGD and colonoscopy however nursing did not administer all of his prep. Patient still having formed brown stool this morning. EGD colonoscopy canceled and rescheduled for tomorrow. He denies any abdominal pain nausea or vomiting at this time. Patient had a drop in his hemoglobin of 5.9, 1 unit of blood ordered. Hematology following, ordered DIC labs as well as hemolysis workup every ordered. 12/04/2022: Yesterday patient underwent EGD and colonoscopy. EGD revealed a 1 cm nonbleeding mid esophageal ulcer status post biopsy with a history of Guadalupe-en-Y gastric bypass surgery. Colonoscopy revealed thick black stool throughout the entire colon but no active bleeding identified. He then underwent a small bowel capsule endoscopy which was I reviewed this afternoon. There was some fresh blood seen from the esophageal ulcer biopsy no active bleeding in the small bowel. Patient did have a drop in his hemoglobin again to 6.9. Would recommend tagged RBC and general surgery to follow. Patient denies any abdominal pain, nausea or vomiting at this time. Still had black stool. Objective - Vital Signs Vital signs: Vital Signs Temp 98.4 F 12/04/22 14:55 Pulse 71 12/04/22 14:55 Resp 14 12/04/22 14:55 BP 127/79 12/04/22 14:55 Pulse Ox 97 12/04/22 14:55 FiO2 Intake & Output 12/03/22 12/04/22 12/04/22 18:59 06:59 18:59 Intake Total 530 546 Balance 530 546 Intake: IV 100 Oral 120 236 Blood Product 310 310 As-1 Unit 310 [id number] As-1 Unit 310 [id number] Other: Voiding Method Bedpan Bedpan Bedpan Diaper Diaper Diaper # Voids 1 3 1 - Exam General appearance: The patient is alert, oriented, appears in no acute distress. HET: Head is normocephalic and atraumatic. Conjunctiva pink. Sclera anicteric. Neck: Supple without lymphadenopathy. Abdomen: Soft, nontender, nondistended with bowel sounds. No guarding or rigidity. Extremities: Normal skin color and turgor. Bilateral upper and lower extremity edema, generalized anasarca. Skin: No rashes, no jaundice Neurological: Alert and oriented. - Labs CBC & Chem 7: 12/04/22 06:13 12/02/22 06:07 Labs: Abnormal Lab Results - Last 24 Hours (Table) 12/03/22 12/03/22 12/04/22 Range/Units 17:25 19:38 06:13 WBC 14.5 H 15.8 H (3.8-10.6) k/uL RBC 2.37 L 2.30 L (4.30-5.90) m/uL Hgb 7.2 L 6.9 L* (13.0-17.5) gm/dL Hct 22.2 L 21.5 L (39.0-53.0) % RDW 19.4 H 19.8 H (11.5-15.5) % Plt Count 76 L 81 L (150-450) k/uL Neutrophils # 12.8 H (1.3-7.7) k/uL POC Glucose (mg/dL) 164 H (70-110) mg/dL Crossmatch 12/04/22 12/04/22 12/04/22 Range/Units 07:31 09:44 12:42 WBC (3.8-10.6) k/uL RBC (4.30-5.90) m/uL Hgb (13.0-17.5) gm/dL Hct (39.0-53.0) % RDW (11.5-15.5) % Plt Count (150-450) k/uL Neutrophils # (1.3-7.7) k/uL POC Glucose (mg/dL) 141 H 146 H (70-110) mg/dL Crossmatch See Detail Assessment and Plan (1) Normocytic normochromic anemia Narrative/Plan: 62-year-old male who presented to the emergency department with diarrhea and tested positive for COVID-19 infection presented with anemia. Hemoglobin continually dropped throughout his hospital stay requiring now u6 nits of blood transfusion. Hematology had been following a believes likely related to underlying virus, anemia of inflammation and history of gastric bypass, as well as possible component of liver disease from alcoholism causing some bone marrow suppression. Patient initially did not have any signs or symptoms of GI bleed. No prior history of EGD or colonoscopy. During this hospitalization he was started on a heparin drip for previous DVT in acute DVT. During that time he was noted to have a drop in his hemoglobin. He had some abdominal discomfort and was noted to have a large intramuscular hematoma of the left iliac muscle and additional retroperitoneal hematoma. Anticoagulation was held and patient underwent IVC filter placement by vascular surgery. Yesterday he again had a drop in his hemoglobin of 5.5 with reported black loose stools for the last 2 days duration. Occult stool was positive, concern for possible GI bleed. Recom mend proceeding with upper and lower endoscopy. EGD and colonoscopy completed no active bleeding noted. Esophageal ulcer without any active bleeding biopsied. Colonoscopy revealed thick black stool throughout the entire colon but no active bleeding identified. Small bowel capsule endoscopy not showing any active bleeding small bowel without any active bleeding. Recommending tagged RBC and general surgery consultation Current Visit: Yes Status: Acute Priority: High Code(s): D64.9 - ANEMIA, UNSPECIFIED SNOMED Code(s): 75670597 (2) Fecal occult blood test positive Current Visit: Yes Status: Acute Code(s): R19.5 - OTHER FECAL ABNORMALITIES SNOMED Code(s): 04837197 (3) COVID-19 Current Visit: Yes Status: Acute Priority: High Code(s): U07.1 - COVID-19 SNOMED Code(s): 368089681 (4) Diarrhea Current Visit: Yes Status: Acute Priority: High Code(s): R19.7 - DIARRHEA, UNSPECIFIED SNOMED Code(s): 52213038 (5) Left leg DVT Current Visit: Yes Status: Acute Priority: High Code(s): I82.402 - ACUTE EMBOLISM AND THOMBOS UNSP DEEP VEINS OF L LOW EXTREM SNOMED Code(s): 204641599 (6) Esophageal ulcer without bleeding Current Visit: Yes Status: Acute Code(s): K22.10 - ULCER OF ESOPHAGUS W ITHOUT BLEEDING SNOMED Code(s): 35302532 (7) History of Guadalupe-en-Y gastric bypass Current Visit: Yes Status: Acute Code(s): Z98.84 - BARIATRIC SURGERY STATUS SNOMED Code(s): 651987454 Plan: 1. Continue symptomatic and supportive care 2. Patient is status post EGD, colonoscopy, small bowel video capsule endoscopy without any active bleeding seen 3. Daily CBC, transfuse for hemoglobin less than 7 4. Recommend tagged RBC 5. Recommend general surgery consultation 6. Diet as tolerated Thank you for allowing us to participate in the care of the patient, the GI service will sign off, gastroenterology will not be available at the hospital this weekend and through next week. If further evaluation by gastroenterology is required the patient will need transfer as per the primary team's discretion. Dr. Radha Lundberg I agree with the dictator's note, documented as a scribe by Sarah Oconnor.
--- NOTE | 2022-12-04 17:41 | NM ---
EXAMINATION TYPE: NM GI bleeding DATE OF EXAM: 12/04/2022 HISTORY: COMPARISON: NONE Following administration of 3 ml PYP 24.9 mCi Tc 99m Sodium Pertechnete. Immediate images post inject ion. FINDINGS: There is normal tracer distribution in the liver spleen kidneys and urinary bladder. No evidence of t racer extravasation to suggest active GI bleeding. IMPRESSION: No evidence of any active GI bleeding.
[2022-12-04 18:35] LABS: Glucose,Whole Blood 97 mg/dL (70-110)
[2022-12-04] MEDS: TAMSULOSIN 0.4 MG CAP.ER.24H PO SCH (18:43)
[2022-12-04 18:50] LABS: Anisocytosis Slight; Basophils % (A) 0 %; Eosinophils % (A) 0 %; HCT 24.1 % (39.0-53.0); HGB 8.2 gm/dL (13.0-17.5); Lymphocytes # (A) 1.8 k/uL (1.0-4.8); Lymphocytes % (A) 12 %; MCH 31.5 pg (25.0-35.0); MCHC 34.2 g/dL (31.0-37.0); MCV 92.1 fL (80.0-100.0); Macrocytosis Slight; Mean Platelet Volume 9.8; Monocytes # (A) 0.7 k/uL (0-1.0); Monocytes % (A) 4 %; Neutrophils # (A) 12.9 k/uL (1.3-7.7); Neutrophils % (A) 83 %; RBC 2.61 m/uL (4.30-5.90); WBC 15.5 k/uL (3.8-10.6)
[2022-12-04 18:57] LABS: Platelet Count 72 k/uL (150-450)
[2022-12-04 20:35] LABS: Glucose,Whole Blood 166 mg/dL (70-110)
[2022-12-04] MEDS: TEMAZEPAM 7.5 MG CAP PO PRN (21:32)
[2022-12-05 06:10] LABS: Prothrombin Time 10.3 sec (9.0-12.0)
[2022-12-05 06:11] LABS: Glucose,Whole Blood 146 mg/dL (70-110)
[2022-12-05] MEDS: INSULIN ASPART (NovoLOG) 100 UNIT/ML VIAL SQ SCH ×4 (06:13→22:29)
[2022-12-05] MEDS: INSULIN DETEMIR (LEVEMIR) 100 UNIT/ML SYR SQ SCH (06:26)
[2022-12-05] MEDS: LEVOTHYROXINE 50 MCG TAB PO SCH (06:26)
--- NOTE | 2022-12-05 08:54 | P.PN ---
Subjective Patient is seen in follow-up for acute kidney injury on chronic kidney disease. Creatinine 1.0 dated 12/02/2022. Hemoglobin 8.2 yesterday. Status post capsule endoscopy. Denies any active bleeding today. Good urine output. Hemodynamically stable. Vital signs are stable. General: No acute distress. HEENT: Head exam is unremarkable. LUNGS: Breath sounds decreased. HEART: Rate and Rhythm are regular. ABDOMEN: Soft, no distention. EXTREMITITES: 1+ edema. Objective - Vital Signs Vital signs: Vital Signs Temp 98.2 F 12/05/22 07:30 Pulse 67 12/05/22 08:01 Resp 18 12/05/22 07:30 BP 112/72 12/05/22 07:30 Pulse Ox 100 12/05/22 07:30 FiO2 Intake & Output 12/04/22 12/05/22 12/05/22 18:59 06:59 18:59 Intake Total 546 Output Total 600 600 Balance -54 -600 Intake: Oral 236 Blood Product 310 Rc As-1 Unit 310 [id number] Output: Urine 600 600 Other: Voiding Method Bedpan Bedpan Diaper Diaper # Voids 1 - Labs CBC & Chem 7: 12/04/22 18:35 12/02/22 06:07 Labs: Abnormal Lab Results - Last 24 Hours (Table) 12/04/22 12/04/22 12/04/22 Range/Units 09:44 12:42 18:35 WBC 15.5 H (3.8-10.6) k/uL RBC 2.61 L (4.30-5.90) m/uL Hgb 8.2 L (13.0-17.5) gm/dL Hct 24.1 L (39.0-53.0) % RDW 19.0 H (11.5-15.5) % Plt Count 72 L (150-450) k/uL Neutrophils # 12.9 H (1.3-7.7) k/uL Fibrinogen (200-500) mg/dL D-Dimer (<0.60) mg/L FEU POC Glucose (mg/dL) 146 H (70-110) mg/dL Crossmatch See Detail 12/04/22 12/05/22 12/05/22 Range/Units 20:34 05:20 06:10 WBC (3.8-10.6) k/uL RBC (4.30-5.90) m/uL Hgb (13.0-17.5) gm/dL Hct (39.0-53.0) % RDW (11.5-15.5) % Plt Count (150-450) k/uL Neutrophils # (1.3-7.7) k/uL Fibrinogen 135 L (200-500) mg/dL D-Dimer 3.72 H (<0.60) mg/L FEU POC Glucose (mg/dL) 166 H 146 H (70-110) mg/dL Crossmatch Assessment and Plan Plan: Assessment: 1. Acute kidney injury mostly prerenal secondary to acute blood loss anemia and urinary retention. Creatinine 1.0 dated 12/02/2022. Patient received IV contrast on 11/23/2022. 2. Chronic kidney disease stage II with baseline creatinine 1-1.1. 3. Urinary retention. Jo catheter removed 11/27/2022. On Flomax. 4. Lower extremity edema maintained on Lasix. Better. 5. Hyperkalemia secondary to GI bleed and acidosis. Last potassium 4.7 dated 12/02/2022. 6. GI bleed status post blood transfusions this admission. CAT scan showed large intramuscular hematoma. Underwent EGD and colonoscopy on 12/03/2022 which showed 1 cm nonbleeding mid esophageal ulcer and thick black stool in colon. Been followed by surgery and GI. 7. Metabolic acidosis secondary to acute kidney injury and GI losses maintained on oral bicarbonate. 8. Hypomagnesemia from diuresis. Replaced. Plan: Maintain Lasix. Monitor hemoglobin and transfuse as needed. Defer to primary and gi/surgery team. Avoid nephrotoxins. Repeat BMP in the morning.
[2022-12-05 09:20] LABS: African American GFR (CKD) 93.1 (60.0-200.0); Albumin 2.4 g/dL (3.8-4.9); Albumin/Globulin Ratio 1.85 (1.60-3.17); Anion Gap 6.3 mmol/L (10.00-18.00); BUN/Creat Ratio 36.1 Ratio (12.00-20.00); Blood Urea Nitrogen 36.1 mg/dL (9.0-27.0); Calcium 7.7 mg/dL (8.7-10.3); Carbon Dioxide 21.7 mmol/L (20.0-27.5); Globulin 1.3 g/dL (1.6-3.3); Magnesium 1.7 mg/dL (1.5-2.4); Non-African American GFR(CKD) 80.3 (60.0-200.0); Potassium 4.7 mmol/L (3.5-5.5); Total Bilirubin 0.6 mg/dL (0.30-1.20); Total Protein 3.7 g/dL (6.2-8.2)
--- NOTE | 2022-12-05 09:30 | P.PN ---
Subjective Progress Note Date: 12/05/22 Principal diagnosis: Rectoperineal hematoma Patient without bowel movement for the last 2 days. Tag red blood cell scan yesterday shows no evidence of active bleeding. 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 Apparently on the capsule endoscopy some bleeding at the esophageal ulcer site was noted. Objective - Vital Signs Vital signs: Vital Signs Temp 98.2 F 12/05/22 07:30 Pulse 67 12/05/22 08:01 Resp 18 12/05/22 07:30 BP 112/72 12/05/22 07:30 Pulse Ox 100 12/05/22 07:30 FiO2 Intake & Output 12/04/22 12/05/22 12/05/22 18:59 06:59 18:59 Intake Total 546 118 Output Total 600 600 Balance -54 -600 118 Intake: Oral 236 118 Blood Product 310 Rc As-1 Unit 310 [id number] Output: Urine 600 600 Other: Voiding Method Bedpan Bedpan Diaper Diaper # Voids 1 - Exam Abdomen: Soft, nontender, nondistended - Labs CBC & Chem 7: 12/04/22 18:35 12/05/22 05:20 Labs: Abnormal Lab Results - Last 24 Hours (Table) 12/04/22 12/04/22 12/04/22 Range/Units 09:44 12:42 18:35 WBC 15.5 H (3.8-10.6) k/uL RBC 2.61 L (4.30-5.90) m/uL Hgb 8.2 L (13.0-17.5) gm/dL Hct 24.1 L (39.0-53.0) % RDW 19.0 H (11.5-15.5) % Plt Count 72 L (150-450) k/uL Neutrophils # 12.9 H (1.3-7.7) k/uL Fibrinogen (200-500) mg/dL D-Dimer (<0.60) mg/L FEU Sodium (135-145) mmol/L Anion Gap (10.00-18.00) mmol/L BUN (9.0-27.0) mg/dL BUN/Creatinine Ratio (12.00-20.00) Ratio Glucose (70-110) mg/dL POC Glucose (mg/dL) 146 H (70-110) mg/dL Calcium (8.7-10.3) mg/dL AST (14-35) U/L Total Protein (6.2-8.2) g/dL Albumin (3.8-4.9) g/dL Globulin (1.6-3.3) g/dL Crossmatch See Detail 12/04/22 12/05/22 12/05/22 Range/Units 20:34 05:20 05:20 WBC (3.8-10.6) k/uL RBC (4.30-5.90) m/uL Hgb (13.0-17.5) gm/dL Hct (39.0-53.0) % RDW (11.5-15.5) % Plt Count (150-450) k/uL Neutrophils # (1.3-7.7) k/uL Fibrinogen 135 L (200-500) mg/dL D-Dimer 3.72 H (<0.60) mg/L FEU Sodium 134 L (135-145) mmol/L Anion Gap 6.30 L (10.00-18.00) mmol/L BUN 36.1 H (9.0-27.0) mg/dL BUN/Creatinine Ratio 36.10 H (12.00-20.00) Ratio Glucose 123 H (70-110) mg/dL POC Glucose (mg/dL) 166 H (70-110) mg/dL Calcium 7.7 L (8.7-10.3) mg/dL AST 11 L (14-35) U/L Total Protein 3.7 L (6.2-8.2) g/dL Albumin 2.4 L (3.8-4.9) g/dL Globulin 1.3 L (1.6-3.3) g/dL Crossmatch 12/05/22 Range/Units 06:10 WBC (3.8-10.6) k/uL RBC (4.30-5.90) m/uL Hgb (13.0-17.5) gm/dL Hct (39.0-53.0) % RDW (11.5-15.5) % Plt Count (150-450) k/uL Neutrophils # (1.3-7.7) k/uL Fibrinogen (200-500) mg/dL D-Dimer (<0.60) mg/L FEU Sodium (135-145) mmol/L Anion Gap (10.00-18.00) mmol/L BUN (9.0-27.0) mg/dL BUN/Creatinine Ratio (12.00-20.00) Ratio Glucose (70-110) mg/dL POC Glucose (mg/dL) 146 H (70-110) mg/dL Calcium (8.7-10.3) mg/dL AST (14-35) U/L Total Protein (6.2-8.2) g/dL Albumin (3.8-4.9) g/dL Globulin (1.6-3.3) g/dL Crossmatch Assessment and Plan (1) Esophageal ulcer Narrative/Plan: Patient with GI bleed. Reading through GIs notes it appears the most likely source of this bleeding is the esophageal ulcer. Pathology showing herpes esophagitis. Recommends discussing this with Dr. Menendez. No general surgery intervention or further workup planned. We'll sign off. Please call if needed. Current Visit: Yes Status: Acute Code(s): K22.10 - ULCER OF ESOPHAGUS WITHOUT BLEEDING SNOMED Code(s): 66111503
[2022-12-05] MEDS: CALCIUM CARBONATE 500 MG CHEWABLE PO SCH ×3 (09:35→21:15)
[2022-12-05] MEDS: CYANOCOBALAMIN 500 MCG TAB PO SCH (09:35)
[2022-12-05] MEDS: DILTIAZEM ORAL 30 MG TAB PO SCH ×3 (09:35→21:16)
[2022-12-05] MEDS: SODIUM BICARBONATE TAB 650 MG TAB PO SCH ×2 (09:36→21:16)
[2022-12-05] MEDS: FOLIC ACID 1 MG TAB PO SCH (09:36)
[2022-12-05] MEDS: PYRIDOXINE 50 MG TAB PO SCH (09:36)
[2022-12-05] MEDS: ASCORBIC ACID 500 MG TAB PO SCH ×2 (09:36→21:17)
[2022-12-05] MEDS: MAGNESIUM OXIDE 400 MG TAB PO SCH (09:37)
[2022-12-05] MEDS: FLUoxetine HCL 20 MG CAP PO SCH (09:37)
[2022-12-05] MEDS: CHOLECALCIFEROL 25 MCG (1000 IU) TABLET PO SCH (09:37)
[2022-12-05] MEDS: FUROSEMIDE 40 MG TAB PO SCH (09:37)
[2022-12-05] MEDS: PANTOPRAZOLE 40 MG/10 ML VIAL IVP SCH ×2 (09:37→21:16)
[2022-12-05] MEDS: THIAMINE 100 MG TAB PO SCH (09:37)
[2022-12-05] MEDS: CHOLESTYRAMINE (WITH SUGAR) 4 GM PACKET PO SCH ×2 (09:37→17:41)
[2022-12-05] MEDS: DEXAMETHASONE SOD PHOSPHATE 4 MG/ML 1 ML VIAL IVP SCH ×3 (09:38→21:16)
[2022-12-05 12:17] LABS: Basophils # (A) 0.01 X 10*3/uL (0.00-0.10); Basophils % (A) 0.1 %; Eosinophils # (A) 0 X 10*3/uL (0.04-0.35); Eosinophils % (A) 0 %; HCT 23.7 % (39.6-50.0); HGB 7.5 g/dL (13.0-17.0); Immature Grans, Automated 0.8 %; Lymphocytes # (A) 1.02 X 10*3/uL (0.90-5.00); Lymphocytes % (A) 7.4 %; MCH 30.1 pg (27.0-32.0); MCHC 31.6 g/dL (32.0-37.0); MCV 95.2 fL (80.0-97.0); Mean Platelet Volume 11.6 fL (9.5-12.2); Monocytes # (A) 0.39 X 10*3/uL (0.20-1.00); Monocytes % (A) 2.8 %; NRBC Per 100 WBC 0 /100 WBCS (0.0-0.0); Neutrophils # (A) 12.26 X 10*3/uL (1.80-7.70); Neutrophils % (A) 88.9 %; Platelet Count 80 X 10*3/uL (140-440); RBC 2.49 X 10*6/uL (4.40-5.60); RBC Morphology NORMAL; RDW 19.9 % (11.5-14.5); WBC 13.79 X 10*3/uL (4.50-10.00)
[2022-12-05 12:36] LABS: Glucose,Whole Blood 129 mg/dL (70-110)
--- NOTE | 2022-12-05 15:25 | P.PN ---
Subjective Progress Note Date: 12/05/22 Principal diagnosis: Abnormal MRI questionable discitis Patient is a 62-year-old male who is unvaccinated for COVID-19 patient was brought into the ER for evaluation of weakness no energy mention the patient was not able to get stand up and go to the bathroom patient has been dealing with the diarrhea off and on for couple of weeks, patient was noticed to have a positive covid test, however the patient was not hypoxic and CT abdominal pelvis with few bibasilar patchy groundglass opacity representing atelectasis and no evidence of colitis. Patient did have a drop in his hemoglobin and underwent a CT angiogram that demonstrated a large intramuscular hematoma in the left iliac is muscle in the retroperitoneum. 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 On today's evaluation that is 12/05/2022, the patient remains to be afebrile, the patient is breathing comfortably on room air, The patient denies chest pain, patient did have occasional dry cough no nausea no vomiting no abdominal pain no diarrhea Objective - Vital Signs Vital signs: Vital Signs Temp 98.4 F 12/05/22 14:00 Pulse 69 12/05/22 14:00 Resp 18 12/05/22 14:00 BP 114/70 12/05/22 14:00 Pulse Ox 100 12/05/22 14:00 FiO2 Intake & Output 12/04/22 12/05/22 12/05/22 18:59 06:59 18:59 Intake Total 546 236 Output Total 600 600 Balance -54 -600 236 Intake: Oral 236 236 Blood Product 310 Rc As-1 Unit 310 [id number] Output: Urine 600 600 Other: Voiding Method Bedpan Bedpan Bedpan Diaper Diaper Diaper # Voids 1 - Exam GENERAL DESCRIPTION: An elderly male lying in bed in no distress RESPIRATORY SYSTEM: Unlabored breathing , decreased breath sounds at bases HEART: S1 S2 regular rate and rhythm , ABDOMEN: Soft , no tenderness EXTREMITIES: No edema feet - Labs CBC & Chem 7: 12/05/22 05:20 12/05/22 05:20 Labs: Abnormal Lab Results - Last 24 Hours (Table) 12/04/22 12/04/22 12/05/22 Range/Units 18:35 20:34 05:20 WBC 15.5 H 13.79 H (3.8-10.6) k/uL RBC 2.61 L 2.49 L (4.30-5.90) m/uL Hgb 8.2 L 7.5 L (13.0-17.5) gm/dL Hct 24.1 L 23.7 L (39.0-53.0) % MCHC 31.6 L (32.0-37.0) g/dL RDW 19.0 H 19.9 H (11.5-15.5) % Plt Count 72 L 80 L (150-450) k/uL Plt Count Comment DECREASED A Immature Gran # 0.11 H (0.00-0.04) X 10*3/uL Neutrophils # 12.9 H 12.26 H (1.3-7.7) k/uL Eosinophils # 0 L (0.04-0.35) X 10*3/uL Fibrinogen (200-500) mg/dL D-Dimer (<0.60) mg/L FEU Sodium (135-145) mmol/L Anion Gap (10.00-18.00) mmol/L BUN (9.0-27.0) mg/dL BUN/Creatinine Ratio (12.00-20.00) Ratio Glucose (70-110) mg/dL POC Glucose (mg/dL) 166 H (70-110) mg/dL Calcium (8.7-10.3) mg/dL AST (14-35) U/L Total Protein (6.2-8.2) g/dL Albumin (3.8-4.9) g/dL Globulin (1.6-3.3) g/dL 12/05/22 12/05/22 12/05/22 Range/Units 05:20 05:20 06:10 WBC (3.8-10.6) k/uL RBC (4.30-5.90) m/uL Hgb (13.0-17.5) gm/dL Hct (39.0-53.0) % MCHC (32.0-37.0) g/dL RDW (11.5-15.5) % Plt Count (150-450) k/uL Plt Count Comment Immature Gran # (0.00-0.04) X 10*3/uL Neutrophils # (1.3-7.7) k/uL Eosinophils # (0.04-0.35) X 10*3/uL Fibrinogen 135 L (200-500) mg/dL D-Dimer 3.72 H (<0.60) mg/L FEU Sodium 134 L (135-145) mmol/L Anion Gap 6.30 L (10.00-18.00) mmol/L BUN 36.1 H (9.0-27.0) mg/dL BUN/Creatinine Ratio 36.10 H (12.00-20.00) Ratio Glucose 123 H (70-110) mg/dL POC Glucose (mg/dL) 146 H (70-110) mg/dL Calcium 7.7 L (8.7-10.3) mg/dL AST 11 L (14-35) U/L Total Protein 3.7 L (6.2-8.2) g/dL Albumin 2.4 L (3.8-4.9) g/dL Globulin 1.3 L (1.6-3.3) g/dL 12/05/22 Range/Units 12:34 WBC (3.8-10.6) k/uL RBC (4.30-5.90) m/uL Hgb (13.0-17.5) gm/dL Hct (39.0-53.0) % MCHC (32.0-37.0) g/dL RDW (11.5-15.5) % Plt Count (150-450) k/uL Plt Count Comment Immature Gran # (0.00-0.04) X 10*3/uL Neutrophils # (1.3-7.7) k/uL Eosinophils # (0.04-0.35) X 10*3/uL Fibrinogen (200-500) mg/dL D-Dimer (<0.60) mg/L FEU Sodium (135-145) mmol/L Anion Gap (10.00-18.00) mmol/L BUN (9.0-27.0) mg/dL BUN/Creatinine Ratio (12.00-20.00) Ratio Glucose (70-110) mg/dL POC Glucose (mg/dL) 129 H (70-110) mg/dL Calcium (8.7-10.3) mg/dL AST (14-35) U/L Total Protein (6.2-8.2) g/dL Albumin (3.8-4.9) g/dL Globulin (1.6-3.3) g/dL Assessment and Plan (1) COVID-19 Current Visit: Yes Status: Acute Priority: High Code(s): U07.1 - COVID-19 SNOMED Code(s): 740140602 Plan: 1patient did have a abnormal MRI of the cervical spine as well as lumbar spine with a questionable discitis reported by radiologist however the patient did have normal sed rate and a CRP 2, patient is currently being monitor closely off antibiotic therapy to increase the yield of any culture to be done at the time of surgery . 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
[2022-12-05] MEDS: valACYclovir HCL 1,000 MG TABLET PO SCH ×2 (16:39→21:16)
[2022-12-05 17:17] LABS: Glucose,Whole Blood 112 mg/dL (70-110)
[2022-12-05] MEDS: TAMSULOSIN 0.4 MG CAP.ER.24H PO SCH (17:41)
[2022-12-05] MEDS: TEMAZEPAM 7.5 MG CAP PO PRN (21:15)
[2022-12-05 22:14] LABS: Glucose,Whole Blood 171 mg/dL (70-110)
[2022-12-05] MEDS: VANCOMYCIN 125 MG CAPSULE PO SCH (23:51)
[2022-12-06] MEDS: INSULIN DETEMIR (LEVEMIR) 100 UNIT/ML SYR SQ SCH (06:19)
[2022-12-06] MEDS: LEVOTHYROXINE 50 MCG TAB PO SCH (06:19)
[2022-12-06 06:20] LABS: Glucose,Whole Blood 140 mg/dL (70-110)
[2022-12-06] MEDS: INSULIN ASPART (NovoLOG) 100 UNIT/ML VIAL SQ SCH ×4 (06:22→21:33)
[2022-12-06 06:26] LABS: Glucose,Whole Blood 137 mg/dL (70-110)
[2022-12-06] MEDS: CALCIUM CARBONATE 500 MG CHEWABLE PO SCH ×3 (09:24→21:32)
[2022-12-06] MEDS: CHOLECALCIFEROL 25 MCG (1000 IU) TABLET PO SCH (09:24)
[2022-12-06] MEDS: SODIUM BICARBONATE TAB 650 MG TAB PO SCH ×2 (09:25→21:32)
[2022-12-06] MEDS: FLUoxetine HCL 20 MG CAP PO SCH (09:25)
[2022-12-06] MEDS: MAGNESIUM OXIDE 400 MG TAB PO SCH ×2 (09:25→21:33)
[2022-12-06] MEDS: CYANOCOBALAMIN 500 MCG TAB PO SCH (09:25)
[2022-12-06] MEDS: FOLIC ACID 1 MG TAB PO SCH (09:25)
[2022-12-06] MEDS: PYRIDOXINE 50 MG TAB PO SCH (09:26)
[2022-12-06] MEDS: THIAMINE 100 MG TAB PO SCH (09:26)
[2022-12-06] MEDS: DEXAMETHASONE SOD PHOSPHATE 4 MG/ML 1 ML VIAL IVP SCH ×2 (09:26→16:06)
[2022-12-06] MEDS: PANTOPRAZOLE 40 MG/10 ML VIAL IVP SCH ×2 (09:26→21:32)
[2022-12-06] MEDS: FUROSEMIDE 40 MG TAB PO SCH (09:27)
[2022-12-06] MEDS: valACYclovir HCL 1,000 MG TABLET PO SCH ×2 (09:27→21:32)
[2022-12-06] MEDS: VANCOMYCIN 125 MG CAPSULE PO SCH ×4 (09:27→21:32)
[2022-12-06] MEDS: ASCORBIC ACID 500 MG TAB PO SCH ×2 (09:27→21:32)
[2022-12-06] MEDS: DILTIAZEM ORAL 30 MG TAB PO SCH ×3 (09:28→21:32)
[2022-12-06 10:22] LABS: Anion Gap 8.1 mmol/L (10.00-18.00); BUN/Creat Ratio 27.64 Ratio (12.00-20.00); Blood Urea Nitrogen 30.4 mg/dL (9.0-27.0); Calcium 7.6 mg/dL (8.7-10.3); Carbon Dioxide 19.8 mmol/L (20.0-27.5); Magnesium 1.7 mg/dL (1.5-2.4); Non-African American GFR(CKD) 71.6 (60.0-200.0)
[2022-12-06 10:35] LABS: Basophils # (A) 0.01 X 10*3/uL (0.00-0.10); Basophils % (A) 0.1 %; Eosinophils # (A) 0 X 10*3/uL (0.04-0.35); Eosinophils % (A) 0 %; HCT 22.5 % (39.6-50.0); HGB 7.2 g/dL (13.0-17.0); Immature Grans, Automated 0.8 %; Lymphocytes % (A) 7.6 %; MCH 30.5 pg (27.0-32.0); MCV 95.3 fL (80.0-97.0); Mean Platelet Volume 11.2 fL (9.5-12.2); Monocytes # (A) 0.38 X 10*3/uL (0.20-1.00); Monocytes % (A) 2.9 %; NRBC Per 100 WBC 0 /100 WBCS (0.0-0.0); Neutrophils # (A) 11.71 X 10*3/uL (1.80-7.70); Neutrophils % (A) 88.6 %; Platelet Count 84 X 10*3/uL (140-440); RBC 2.36 X 10*6/uL (4.40-5.60); WBC 13.21 X 10*3/uL (4.50-10.00)
[2022-12-06] MEDS ORDERED: SODIUM BICARB 8.4% 50 ML SYR (1 MEQ/ML) IV STA (11:27)
--- NOTE | 2022-12-06 11:29 | P.PN ---
Subjective Patient is seen in follow-up for acute kidney injury on chronic kidney disease. Renal function fairly stable. Hemoglobin 7.2 today. Status post capsule endoscopy without any evidence of active bleeding. Denies any active bleeding today. Good urine output. Hemodynamically stable. Vital signs are stable. General: No acute distress. HEENT: Head exam is unremarkable. LUNGS: Breath sounds decreased. HEART: Rate and Rhythm are regular. ABDOMEN: Soft, no distention. EXTREMITITES: 1+ edema. Objective - Vital Signs Vital signs: Vital Signs Temp 97.8 F 12/06/22 07:30 Pulse 59 L 12/06/22 07:30 Resp 18 12/06/22 07:30 BP 118/75 12/06/22 07:30 Pulse Ox 100 12/06/22 07:30 FiO2 Intake & Output 12/05/22 12/06/22 12/06/22 18:59 06:59 18:59 Intake Total 354 118 Output Total 550 700 Balance -196 -700 118 Intake: Oral 354 118 Output: Urine 550 700 Other: Voiding Method Bedpan Bedpan Diaper Diaper - Labs CBC & Chem 7: 12/06/22 06:22 12/06/22 06:22 Labs: Abnormal Lab Results - Last 24 Hours (Table) 12/05/22 12/05/22 12/05/22 Range/Units 05:20 12:34 17:15 WBC 13.79 H (4.50-10.00) X 10*3/uL RBC 2.49 L (4.40-5.60) X 10*6/uL Hgb 7.5 L (13.0-17.0) g/dL Hct 23.7 L (39.6-50.0) % MCHC 31.6 L (32.0-37.0) g/dL RDW 19.9 H (11.5-14.5) % Plt Count 80 L (140-440) X 10*3/uL Plt Count Comment DECREASED A Immature Gran # 0.11 H (0.00-0.04) X 10*3/uL Neutrophils # 12.26 H (1.80-7.70) X 10*3/uL Eosinophils # 0 L (0.04-0.35) X 10*3/uL Sodium (135-145) mmol/L Carbon Dioxide (20.0-27.5) mmol/L Anion Gap (10.00-18.00) mmol/L BUN (9.0-27.0) mg/dL BUN/Creatinine Ratio (12.00-20.00) Ratio Glucose (70-110) mg/dL POC Glucose (mg/dL) 129 H 112 H (70-110) mg/dL Calcium (8.7-10.3) mg/dL C. difficile (EIA) Intrp (Negative) 12/05/22 12/05/22 12/06/22 Range/Units 18:30 22:13 06:18 WBC (4.50-10.00) X 10*3/uL RBC (4.40-5.60) X 10*6/uL Hgb (13.0-17.0) g/dL Hct (39.6-50.0) % MCHC (32.0-37.0) g/dL RDW (11.5-14.5) % Plt Count (140-440) X 10*3/uL Plt Count Comment Immature Gran # (0.00-0.04) X 10*3/uL Neutrophils # (1.80-7.70) X 10*3/uL Eosinophils # (0.04-0.35) X 10*3/uL Sodium (135-145) mmol/L Carbon Dioxide (20.0-27.5) mmol/L Anion Gap (10.00-18.00) mmol/L BUN (9.0-27.0) mg/dL BUN/Creatinine Ratio (12.00-20.00) Ratio Glucose (70-110) mg/dL POC Glucose (mg/dL) 171 H 140 H (70-110) mg/dL Calcium (8.7-10.3) mg/dL C. difficile (EIA) Intrp Positive A (Negative) 12/06/22 12/06/22 12/06/22 Range/Units 06:22 06:22 06:24 WBC 13.21 H (4.50-10.00) X 10*3/uL RBC 2.36 L (4.40-5.60) X 10*6/uL Hgb 7.2 L (13.0-17.0) g/dL Hct 22.5 L (39.6-50.0) % MCHC (32.0-37.0) g/dL RDW 20.0 H (11.5-14.5) % Plt Count 84 L (140-440) X 10*3/uL Plt Count Comment Immature Gran # 0.11 H (0.00-0.04) X 10*3/uL Neutrophils # 11.71 H (1.80-7.70) X 10*3/uL Eosinophils # 0 L (0.04-0.35) X 10*3/uL Sodium 134 L (135-145) mmol/L Carbon Dioxide 19.8 L (20.0-27.5) mmol/L Anion Gap 8.10 L (10.00-18.00) mmol/L BUN 30.4 H (9.0-27.0) mg/dL BUN/Creatinine Ratio 27.64 H (12.00-20.00) Ratio Glucose 124 H (70-110) mg/dL POC Glucose (mg/dL) 137 H (70-110) mg/dL Calcium 7.6 L (8.7-10.3) mg/dL C. difficile (EIA) Intrp (Negative) Assessment and Plan Plan: Assessment: 1. Acute kidney injury mostly prerenal secondary to acute blood loss anemia and urinary retention. Creatinine fairly stable at 1.1 today. Patient received IV contrast on 11/23/2022. 2. Chronic kidney disease stage II with baseline creatinine 1-1.1. 3. Urinary retention. Jo catheter removed 11/27/2022. On Flomax. 4. Lower extremity edema maintained on Lasix. Better. 5. Hyperkalemia secondary to GI bleed and acidosis. Improved. Potassium 5.0 today. 6. GI bleed status post blood transfusions this admission. CAT scan showed large intramuscular hematoma. Underwent EGD and colonoscopy on 12/03/2022 which showed 1 cm nonbleeding mid esophageal ulcer and thick black stool in colon. Being followed by surgery and GI. 7. Metabolic acidosis secondary to acute kidney injury and GI losses maintained on oral bicarbonate. 8. Hypomagnesemia from diuresis. 9. C. diff colitis on oral vancomycin. Denies diarrhea. Plan: Maintain Lasix. Monitor hemoglobin and transfuse as needed. Defer to primary and gi/surgery team. Avoid nephrotoxins. Increase Mag-Ox 2 twice a day.
[2022-12-06 12:41] LABS: Glucose,Whole Blood 118 mg/dL (70-110)
--- NOTE | 2022-12-06 14:07 | P.PN ---
Subjective Progress Note Date: 12/06/22 The patient is seen at bedside and he continues to have difficulty raising the right arm above gravity and feels strength otherwise is improving slowly but drastically better than his initial presentation. He is having having anemia and pending video capsule. It seems his bleeding seems due to esophageal ulcer with herpes esophagitis. Objective - Vital Signs Vital signs: Vital Signs Temp 97.8 F 12/06/22 07:30 Pulse 59 L 12/06/22 07:30 Resp 18 12/06/22 07:30 BP 118/75 12/06/22 07:30 Pulse Ox 100 12/06/22 07:30 FiO2 Intake & Output 12/05/22 12/06/22 12/06/22 18:59 06:59 18:59 Intake Total 354 118 Output Total 550 700 Balance -196 -700 118 Intake: Oral 354 118 Output: Urine 550 700 Other: Voiding Method Bedpan Bedpan Bedpan Diaper Diaper Diaper - Exam GENERAL: The patient is laying in bed and is in minimal to mild acute distress. NEUROLOGICAL: Higher mental function: The patient is awake, alert, oriented to self, place and time. Patient is following simple commands. No aphasia and no neglect. Cranial nerves: The pupils are round, equal and reactive to light and accommodation. Visual elder are full to confrontation throughout. Extraocular movement is intact no nystagmus is noted. Facial sensation is normal to touch throughout. The facial strength is normal throughout. Tongue is midline and moved [id number] without any difficulty. No dysarthria is noted. Shoulder shrug is normal bilaterally. 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 Sensation: Sensation is normal to touch throughout. Reflexes (right/left): 0 throughout. Plantars are mute bilaterally. - Labs CBC & Chem 7: 12/06/22 06:22 12/06/22 06:22 Labs: Abnormal Lab Results - Last 24 Hours (Table) 12/05/22 12/05/22 12/05/22 Range/Units 17:15 18:30 22:13 WBC (4.50-10.00) X 10*3/uL RBC (4.40-5.60) X 10*6/uL Hgb (13.0-17.0) g/dL Hct (39.6-50.0) % RDW (11.5-14.5) % Plt Count (140-440) X 10*3/uL Immature Gran # (0.00-0.04) X 10*3/uL Neutrophils # (1.80-7.70) X 10*3/uL Eosinophils # (0.04-0.35) X 10*3/uL Sodium (135-145) mmol/L Carbon Dioxide (20.0-27.5) mmol/L Anion Gap (10.00-18.00) mmol/L BUN (9.0-27.0) mg/dL BUN/Creatinine Ratio (12.00-20.00) Ratio Glucose (70-110) mg/dL POC Glucose (mg/dL) 112 H 171 H (70-110) mg/dL Calcium (8.7-10.3) mg/dL C. difficile (EIA) Intrp Positive A (Negative) 12/06/22 12/06/22 12/06/22 Range/Units 06:18 06:22 06:22 WBC 13.21 H (4.50-10.00) X 10*3/uL RBC 2.36 L (4.40-5.60) X 10*6/uL Hgb 7.2 L (13.0-17.0) g/dL Hct 22.5 L (39.6-50.0) % RDW 20.0 H (11.5-14.5) % Plt Count 84 L (140-440) X 10*3/uL Immature Gran # 0.11 H (0.00-0.04) X 10*3/uL Neutrophils # 11.71 H (1.80-7.70) X 10*3/uL Eosinophils # 0 L (0.04-0.35) X 10*3/uL Sodium 134 L (135-145) mmol/L Carbon Dioxide 19.8 L (20.0-27.5) mmol/L Anion Gap 8.10 L (10.00-18.00) mmol/L BUN 30.4 H (9.0-27.0) mg/dL BUN/Creatinine Ratio 27.64 H (12.00-20.00) Ratio Glucose 124 H (70-110) mg/dL POC Glucose (mg/dL) 140 H (70-110) mg/dL Calcium 7.6 L (8.7-10.3) mg/dL C. difficile (EIA) Intrp (Negative) 12/06/22 12/06/22 Range/Units 06:24 12:37 WBC (4.50-10.00) X 10*3/uL RBC (4.40-5.60) X 10*6/uL Hgb (13.0-17.0) g/dL Hct (39.6-50.0) % RDW (11.5-14.5) % Plt Count (140-440) X 10*3/uL Immature Gran # (0.00-0.04) X 10*3/uL Neutrophils # (1.80-7.70) X 10*3/uL Eosinophils # (0.04-0.35) X 10*3/uL Sodium (135-145) mmol/L Carbon Dioxide (20.0-27.5) mmol/L Anion Gap (10.00-18.00) mmol/L BUN (9.0-27.0) mg/dL BUN/Creatinine Ratio (12.00-20.00) Ratio Glucose (70-110) mg/dL POC Glucose (mg/dL) 137 H 118 H (70-110) mg/dL Calcium (8.7-10.3) mg/dL C. difficile (EIA) Intrp (Negative) Assessment and Plan Assessment: * Acute COVID infection with severe diarrhea for around 7-10 days [place] [employer]. * Cervical spinal stenosis C5-C6 level, spondylolisthesis C3-C4, degenerative changes, worse at C6-C7 per MRI. * Osteo-discitis at L3-L4 level * Generalized weakness, slightly asymmetric. Etiology possibly multifactorial, most likely related to above, but probably also contributed by electrolyte imbalance, with hypokalemia, hyponatremia, hypocalcemia, hypomagnesemia, copper deficiency, B12 and B6 deficiency. * Acute anemia and seems esophageal * Herpes esophagitis * DVT left lower extremity, status post placement of IVC filter. * Status post Retroperitoneal hematoma * Vitamin B12 deficiency * Vitamin B6 deficiency * Copper deficiency * Paroxysmal atrial fibrillation * DVT in the left lower extremity * Alcoholism Plan: Patient's muscle strength seems to have improved slightly as compared to initial presentation. But continues to be weak. * MRI of the cervical spine revealed significantly limited study secondary to motion. Within the limitation, there is at least moderate spinal canal stenosis at C5 6. Multilevel neural foraminal stenosis. Grade 1 anterolisthesis of C3 on C4. Degeneration changes worse at C6-C7 with the joint place edema. Orthopedic surgery input appreciated. * MRI of the lumbar is reported as no new bone structure. Stable alignment. Increased T2 signal and disc or suspected edema is less prominent from prior study. No definitive abnormal osseous and has been suggest persistent acute active osteomyelitis. No new focal fluid collection or abscess seen. Finding consistent with improving infection and degenerative changes. * MRI of the thoracic spine is reported as multilevel degenerative disc disease with disc protrusion and ventral cord contact at T7-T8 * Patient has evidence of vitamin B12 deficiency with B12 226 and elevated met hylmalonic acid 0.51. Patient started on vitamin B12 1000 g IM daily. He has received B12 injections since then. We will decrease to vitamin B12 1000 g orally daily. * Hematology has seen the patient, ordered blood testing. * CPK < 20, vitamin B6 very low 2. Patient was started on vitamin B6 50 mg twice a day by Dr. Greene. We will decrease to 50 mg once a day. B1 69, TSH normal. Folate 21.2. Serum protein electrophoresis and immunofixation electrophoresis showed no paraproteinemia * For copper deficiency, would defer to hematology. * Recommend EMG with NCS of uppers and lowers as outpatient to rule out any neuropathy. * Patient also had an episode of paroxysmal atrial fibrillation. Cardiology has seen the patient, not recommending anticoagulation. However after DVT patient was started on heparin drip. Patient has not developed retroperitoneal hematoma. Surgery following. All anticoagulation on hold. GI team and general surgery team on board and no intervention. Pending capsule endoscopy. * I.D. on board for herpes esophagitis. * 2-D echo revealed left ventricular hypertrophy with normal left-ventricular systolic function with EF 55%. No obvious regional wall motion abnormalities. Left atrial size is normal. Mild to moderate mitral regurgitation. * PT, OT, evaluate gait. Plan is discussed with patient and his nurse. Will follow-up with patient sporadically. Dr. Blankenship will start neurology service tomorrow A.M. Time with Patient: Less than 30
[2022-12-06 17:09] LABS: Glucose,Whole Blood 140 mg/dL (70-110)
[2022-12-06] MEDS: TAMSULOSIN 0.4 MG CAP.ER.24H PO SCH (17:47)
[2022-12-06] MEDS: TEMAZEPAM 7.5 MG CAP PO PRN (18:42)
[2022-12-06 20:07] LABS: Glucose,Whole Blood 170 mg/dL (70-110)
[2022-12-07] MEDS: DEXAMETHASONE SOD PHOSPHATE 4 MG/ML 1 ML VIAL IVP SCH ×3 (01:43→16:06)
--- NOTE | 2022-12-07 02:37 | P.PN ---
Subjective Progress Note Date: 12/05/22 Principal diagnosis: Paroxysmal atrial fibrillation Intractable nausea/vomiting/diarrhea Profound hypokalemia Acute renal injury COVID-19 infection 62-year-old male in the emergency department for diarrhea. She notes diarrhea starting and he asked progressively gotten worse. He reports he stood up from a chair and had an episode of diarrhea, admits he still maintains bowel function. He has not tried anything for his symptoms. He denies nausea, vomiting, abdominal pain, palpitations, fevers. Denies recent travel or recent antibiotic use. He is scheduled to have his first colonoscopy in january of 2023. Patient had an initial lab work is remarkable for WBC is 11.4, hemoglobin 8.7, INR 1.2, sodium 133, potassium 2.6 lactic acid 2.9, calcium 6.3, magnesium 0.8, lipase 60, COVID positive. I interpreted the following; CT abdomen without contrast remarkable for fluid filled colon without focal wall thickening or surrounding inflammatory changes. Patient was given 2 L fluids, potassium, magnesium and calcium during his course of the ED. 11/08/2022 Patient is seen and evaluated on selective care unit; he went into atrial f ibrillation with rapid ventricular response he was transferred to the third floor/selective minute. The patient did not have any symptoms of heart racing or fluttering and no dizziness or lightheadedness and no presyncope or syncope and no symptoms of chest pain or chest discomfort or shortness of breath. No prior history of atrial fibrillation. No history of coronary artery disease or congestive heart failure or cardiac arrhythmia and the patient never seen a mold blower in the past. Beside that no history of diabetes or hypertension or dyslipidemia. The patient was started initially on Cardizem drip but his pressure did go down and for that reason he was switched into amiodarone IV and subsequently converted to normal sinus mechanism and since then he has been maintaining normal sinus mechanism. Further investigation was performed including CBC and that showed a hemoglobin of 7.7. The patient has no history of bleeding. Beside that he underwent a computed tomography scan of the abdomen and pelvis because of the abdominal discomfort that showed no acute abnormalities. The troponin came in to be slightly elevated likely secondary to tachycardia. The EKG showed sinus rhythm now with no significant ST or T-wave abnormalities. Blood work reveals mild elevation of troponin; Patient has been evaluated by cardiology and recommended to continue with IV fluids, replace electrolytes; IV amiodarone is to be discontinued patient is transition to oral dose daily 11/09/2022 Patient is seen and evaluated in follow-up this morning and continues to feel generalized weakness and continues with loose stools. Per nursing staff when assisting to clean the patient up patient was significantly weak on the right. Patient denied any headache, dizziness, or lightheadedness. Will obtain a CT of the brain and also consult neurology. Recommend PT/OT therapy evaluation for significant weakness. C. diff testing was negative on the stool and will add Imodium and encourage oral intake and advance as tolerated. Patient is maintaining on vitamins and zinc supplements along with subcutaneous heparin with anxiety following closely. Patient denies chest pain or shortness of jadiel ath. Afebrile. Recommend a.m. labs as well. 11/10/2022 Patient is seen in follow-up today with multiple medical consultations including cardiology, hematology, infectious disease, and now neurology following. Patient with significant weakness in all upper and lower extremities with neurology undergoing workup recommending aspirin as patient is not on any anticoagulation at this time. Cardiology is following and patient was transitioned back to IV Cardizem although being changed to oral with close monitoring. Magnesium found to be significantly low at 1.2 and will replace per protocol and recommend repeat labs. Hemoglobin is mildly low at 7.4 and undergoing anemia workup with hematology following. Patient with Covid and extreme weakness will need ECF and discharge planning in process. Recommend close monitoring of labs and replace electrolytes per protocol. Patient was started on Imodium as C. diff testing 2 was negative. Patient continues to have loose stools although somewhat improved. Encouraged oral intake and increased activity as tolerated. Recommend PT/OT therapy daily. Patient denies chest pain or shortness of breath. Patient is 97% on room air. Patient will continue on vitamin and zinc supplements with anxiety following closely. Recommend gentle IV hydration. 11/11/2022 Patient is seen and evaluated in follow-up with multiple medical consultations following including infectious disease and neurology. Oncology following undergoing anemia workup. Hemoglobin was found to be 6.5 today and will order 1 unit of PRBC and recommend close monitoring. No active bleeding noted. Patient was started on baby aspirin per neurology and scheduled to undergo MRI of the cervical spine today. Patient continues with significant weakness and will need rehab upon discharge. Patient is maintained on vitamin and zinc supplements and was also being followed by cardiology. Adjustments to medications being done and patient is on oral Cardizem. Will follow-up with repeat labs. Patient is afebrile and denies shortness of breath. Patient clinically appears to be improving. Per nursing staff patient is incontinent of stool in continues to be somewhat loose although less frequent. C. diff testing was negative and stool cultures are negative. Encouraged oral intake. Will discuss with case management about discharge planning to ECF as he will require a Covid hub. 11/12/2022 Patient is seen and evaluated in follow-up today with multiple medical co nsultations following including infectious disease, cardiology, neurology. Patient's hemoglobin is low again at 6.8 and will give 1 unit. Recommend holding aspirin. Patient did have an elevated d-dimer and CTA was ordered. GI was also consulted for anemia. Patient continues to have incontinence of stool and loose stools and is maintained on Questran and will be given Imodium as needed. Patient continues with generalized weakness and fatigue and also having some lower extremity pain and swelling and have ordered Dopplers of bilateral lower extremities as well. Patient with Covid vitamin and zinc supplements and anticoagulation with subcu heparin. Hematology also following for anemia. Recommend repeat CBC this evening and will transfuse another unit as well. Cardiology following and adjustments to medications being made and patient also being started on low-dose diuretics. Patient is having low-grade temps of 99.3- 99.6 and patient continues to be 95% or above on room air. Blood pressure on the lower side although stable. Stool cultures and C. diff testing have been negative. Patient started on antibiotics per ID recommendations in the form of Zithromax and ceftriaxone. Reviewed iron studies which are low and will give IV iron as well. Electrolytes continue to be low and will replace per protocol. Patient will need ECF once stabilized and discharged 11/13/2022 Patient is seen today with multiple medical consultations following and undergoing neurological workup and having bilateral upper and lower extremity weakness. Neurology recommends orthopedic consultation which is currently pending. Patient did have some movement in his diarrhea and reports becoming more formed and less frequent. Patient continues to be incontinent of this. Patient being started on antibiotics with anxiety following an also continues to have anemia. GI recommending continuing with hematology workup. Multiple images including MRIs and pending at time. Patient with significant weakness will be going to rehab when stable. A.m. labs are pending. 11/24/2022 Patient is currently resting in the bed. Awake alert and oriented x3. No complaints of chest pain or shortness of breath. Left lower abdominal discomfort is improved. Hemoglobin is stable. Vascular surgery has seen the patient is planning for IVC filter placement. Heparin is on hold due to retroperitoneal bleed. Laboratory data showed WBC 25.6 hemoglobin 7.1 and platelets 159 sodium 131 potassium 5.7 chloride 112 bicarb is 37 creatinine 1.18 and calcium 7.0. Nephrology, ID and vascular surgery is on board. 11/25/2022 Patient is currently resting in bed. Awake alert and oriented x3. On room air. No complaints of chest pain or shortness of breath. No abdominal pain. No nausea vomiting abdominal pain or diarrhea. Patient is scheduled for IVC filter placement today. Otherwise hemoglobin level is 6.8 and 1 unit of PRBC was ordered. Other laboratory data showed WBC 20.6 hemoglobin 6.8 and platelets 149 sodium 135 potassium 5.4 chloride 101 bicarb is 23 BUN 34 and creatinine 1.25. Magnesium 1.6. Patient is being continued dexamethasone as per orthopedic surgery. Also on IV Lasix. Nephrology and general surgery is on board. Patient was given a dose of Lokelma yesterday. 11/26/2022 Patient is currently resting in bed. Awake alert and oriented x3. No complaints of back pain or abdominal pain. No nausea vomiting abdominal pain or diarrhea. No cough or sputum production. Currently on room air. Patient is status post IVC filter placement on 11/25/2022. Patient received 1 unit of PRBC yesterday and hemoglobin improved to 7.6 today. Level data showed WBC 22.3 hemoglobin 7.6 and platelets 141 sodium 136 potassium 5.3 chloride 101 bicarb is 23 BUN 32 and creatinine 1.23 and blood sugar is 125 and calcium 7.2. Magnesium 1.9. Follow-up CBC and BMP was ordered. Orthopedic surgery is planning for OR when medically stable tomorrow. 11/28/2022 Patient is seen and evaluated in follow-up and apparently orthopedics is scheduled for surgical intervention is patient is unstable. Recommending awaiting medical clearance. Infectious disease following and patient is being maintained and monitored closely of IV antibiotic therapy. Patient is status post Tali filter placement any stable. No active bleeding noted. General surgery following for hematoma on the back with no surgical interventions planned. Patient with significant weakness recommend PT/OT therapy and will discuss with case management about discharge planning and ECF. Recommend follow-up labs in the a.m. she is currently afebrile denies chest pain or shortness of breath. He stable. No active bleeding noted. Patient is tolerating diet with no reports of nausea or vomiting noted. 11/29/2022 Patient was seen in follow-up this morning with orthopedics along with infectious disease, nephrology, general surgery, hematology following. Vital signs of been stable patient is continued on dexamethasone per orthopedics and will discuss about weaning parameters. Patient is also maintained off of anti biotics. Patient was significant weakness recommend PT/OT therapy and rehab on discharge. Patient continues to have elevated white blood count is infectious disease following and repeat inflammatory markers ordered. Patient is afebrile denies chest pain or shortness of breath. 11/30/2022 Patient is seen and evaluated in follow-up today with multiple medical consultations following. Hemoglobin was found to be critically low at 5.5 with a hematocrit of 17.6 and awaiting to receive 2 units of blood. 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 Gen. surgery services following as well. Patient also noted be having black tarry stools and will reconsult GI as we have services available tomorrow. Patient was having some abdominal discomfort and will obtain CT angiogram and evaluate for bleeding. Orthopedics following and were initially discussing surgical intervention of the lower spine although on hold as patient is not medically stable for surgical intervention at this time. Patient is maintained on IV dexamethasone and being weaned per orthopedics. Patient continues with significant weakness and bilateral foot drop and inability to ambulate and generalized edema noted throughout. Patient is maintained on oral Lasix and will give a dose of IV Lasix posttransfusion and follow-up with repeat labs this evening. Patient is afebrile denies chest pain or shortness of breath. Patient is frustrated and appears depressed. Patient denies any suicidal thoughts or wanting to harm himself or others. 12/01/2022 Patient is seen and evaluated in follow-up this morning hemoglobin post 2 units of packed red blood cells was 7.7. CT angiogram abdomen and pelvis was negative for any acute bleeding and GI was placed on consult with patient being scheduled for EGD/colonoscopy. Patient is afebrile denies chest pain or shortness of breath. Patient is tolerating diet with no reports of nausea vomiting noted. Orthopedics following as well and no plans for immediate interventions at this time until patient is more stable. No reports of chest pain or shortness of breath patient is sitting up in the bed on room air. Will follow-up with repeat labs. 12/02/2022 Patient is seen and evaluated this morning currently sitting up in the bed with family at the bedside. Patient was tentatively scheduled for EGD/colonoscopy although did not complete the prep still having formed brown stools continue with bowel prep and scheduled for EGD/colonoscopy in the a.m. Repeat labs reveal hemoglobin of 5.9 and will transfuse recommend follow-up labs. Patient is afebrile with no reports of nausea or vomiting noted. Patient denies chest pain or shortness of breath. Hematology following as well undergoing further workup for anemia. 12/03/2022 Patient is seen and evaluated in follow-up this morning currently nothing by mouth patient completed a bowel prep and initially per nursing staff had clear stools now continuing to have loose black sludgy stools 3 and C. diff ordered. Hemoglobin was found to be 6.9 and awaiting to receive 1 unit of PRBC. Plan is for EGD/colonoscopy with GI today. Patient is currently afebrile denies chest pain or shortness of breath. Patient is extremely anxious and persist to ask daily of when he can have his orthopedic interventions done. Discussed with orthopedic team and there are no plans for immediate surgical intervention during this admission. Patient with Significant weakness and recommend PT/OT therapy daily. Will resume diet once cleared by GI after endoscopic intervention. Recommend follow-up labs and will continue to monitor closely. 12/04/2022 Patient is seen this morning hemoglobin is 6.9 and per nursing staff has not had another bowel movement. Patient is currently undergoing a tagged RBC study with the capsule and pending report. Patient will be given a unit of PRBC and recommend repeat CBC in the evening. Multiple medical consultations following and continuing with bleeding workup. Denies chest pain or shortness of breath. Patient is afebrile and denies nausea or vomiting. Patient is tolerating diet. Patient reporting some insomnia and difficulty in sleeping will add Restoril as needed. Recommend close monitoring of vital signs and labs and will follow-up with the patient. 12/05/2022 Patient is currently resting in bed. Awake alert and oriented x3. On room air saturating 100%. Patient is status post capsule endoscopy. No active bleeding noted. No complaints of chest pain or worsening shortness of breath. No nausea vomiting. Patient did have an episode of diarrhea and is tested positive for C. difficile infection. Laboratory showed WBC 13.7 hemoglobin 7.5 and platelets 80 D-dimer is 3.72. Sodium 134 potassium 4.7 chloride 106 BUN 36 and creatinine 1.0 and magnesium 1.7. Patient was started on vancomycin. ID is on board. Review of systems: Constitutional: No reports of fatigue, no fever, or chills Cardiovascular: No reports of chest pain or palpitations Respiratory: No reports of shortness of breath or cough GI: No reports of nausea, vomiting, reports no stools today : No reports of dysuria or retention Neurovascular: reports of generalized weakness reports difficulty in sleeping All medications have been reviewed Active Medications Acetaminophen (Acetaminophen Tab 325 Mg Tab) 650 mg PO Q6HR PRN PRN Reason: Mild Pain or Fever > 100.5 Last Admin: 11/23/22 05:38 Dose: 650 mg Ascorbic Acid (Ascorbic Acid 500 Mg Tab) 500 mg PO BID [facility] Last Admin: 12/04/22 08:35 Dose: 500 mg Calcium Carbonate/Glycine (Calcium Carbonate 500 Mg Chewable) 500 mg PO TID [facility] Last Admin: 12/04/22 08:33 Dose: 500 mg Cholecalciferol (Cholecalciferol 25 Mcg (1000 Iu) Tablet) 50 mcg PO DAILY [facility] Last Admin: 12/04/22 08:34 Dose: 50 mcg Cholestyramine Resin (Cholestyramine (With Sugar) 4 Gm Packet) 4 gm PO BID@1000,1800 [facility] Last Admin: 12/04/22 08:33 Dose: 4 gm Cyanocobalamin (Cyanocobalamin 500 Mcg Tab) 1,000 mcg PO DAILY [facility] Last Admin: 12/04/22 08:34 Dose: 1,000 mcg Dexamethasone Sodium Phosphate (Dexamethasone Sod Phosphate 4 Mg/Ml 1 Ml Vial) 2 mg IVP Q8HR [facility] Last Admin: 12/04/22 08:35 Dose: 2 mg Dextrose/Water (Dextrose 50% Syringe 50 Ml) 25 ml IVP PER PROTOCOL PRN; Protocol PRN Reason: Hypoglycemia Dextrose/Water (Dextrose 50% Syringe 50 Ml) 50 ml IVP PER PROTOCOL PRN; Protocol PRN Reason: Hypoglycemia Diclofenac Sodium (Diclofenac Sodium Gel 100 Gm Tube) 2 gm TOPICAL QID PRN; Protocol PRN Reason: Pain Diltiazem HCl (Diltiazem Oral 30 Mg Tab) 30 mg PO TID [facility] Last Admin: 12/04/22 10:41 Dose: 30 mg Fluoxetine HCl (Fluoxetine Hcl 20 Mg Cap) 20 mg PO DAILY [facility] Last Admin: 12/04/22 08:35 Dose: 20 mg Folic Acid (Folic Acid 1 Mg Tab) 0.5 mg PO DAILY [facility] Last Admin: 12/04/22 08:34 Dose: 0.5 mg Furosemide (Furosemide 40 Mg Tab) 40 mg PO DAILY [facility] Last Admin: 12/04/22 08:34 Dose: 40 mg Furosemide (Furosemide 10 Mg/Ml 4 Ml Vial) 40 mg IV ONCE PRN PRN Reason: Edema Last Admin: 11/30/22 18:04 Dose: 40 mg Insulin Aspart (Insulin Aspart (Novolog) 100 Unit/Ml Vial) 0 unit SQ ACHS [facility]; Protocol Last Admin: 12/04/22 12:49 Dose: Not Given Insulin Detemir (Insulin Detemir (Levemir) 100 Unit/Ml Syr) 10 unit SQ DAILY@0700 [facility] Last Admin: 12/04/22 08:33 Dose: 10 unit Levothyroxine Sodium (Levothyroxine 50 Mcg Tab) 50 mcg PO DAILY@0630 [facility] Last Admin: 12/04/22 06:28 Dose: 50 mcg Loperamide HCl (Loperamide 2 Mg Cap) 2 mg PO QID PRN PRN Reason: Diarrhea Last Admin: 11/12/22 09:47 Dose: 2 mg Magnesium Oxide (Magnesium Oxide 400 Mg Tab) 400 mg PO DAILY [facility] Last Admin: 12/04/22 08:33 Dose: 400 mg Miscellaneous Information (Magnesium Replacement Protocol 1 Each Misc) 1 each MISCELLANE DAILY PRN; Protocol PRN Reason: Per Protocol Naloxone HCl (Naloxone 0.4 Mg/Ml 1 Ml Vial) 0.2 mg IV Q2M PRN PRN Reason: Opioid Reversal Pantoprazole Sodium (Pantoprazole 40 Mg/10 Ml Vial) 40 mg IVP BID [facility] Last Admin: 12/04/22 08:34 Dose: 40 mg Pyridoxine HCl (Pyridoxine 50 Mg Tab) 50 mg PO DAILY [facility] Last Admin: 12/04/22 08:34 Dose: 50 mg Sodium Bicarbonate (Sodium Bicarbonate Tab 650 Mg Tab) 650 mg PO BID [facility] Last Admin: 12/04/22 08:34 Dose: 650 mg Tamsulosin HCl (Tamsulosin 0.4 Mg Cap.Er.24h) 0.4 mg PO PC-SUPPER [facility] Last Admin: 12/03/22 18:11 Dose: 0.4 mg Temazepam (Temazepam 15 Mg Cap) 7.5 mg PO HS PRN PRN Reason: Insomnia Thiamine HCl (Thiamine 100 Mg Tab) 100 mg PO DAILY [facility] Last Admin: 12/04/22 08:34 Dose: 100 mg Physical exam: Gen: This is a 62-year-old male awake, alert and oriented 3, well-developed, well-nourished, ill-appearing. Pale HEENT: Head is atraumatic, normocephalic. Pupils equal, round. Sclerae is ani cteric. NECK: Supple. No JVD. No lymphadenopathy. No thyromegaly. LUNGS: Breath sounds diminished bilaterally with some scattered rhonchi noted. No intercostal retractions. HEART: S1, S2 are muffled, irregular ABDOMEN: Soft. Mildly tender on palpation. Bowel sounds are present. No masses. EXTREMITIES: No pedal edema. No calf tenderness. Lower extremity edema. Bilateral upper and lower extremity weakness generalized edema noted NEUROLOGICAL: Patient is awake, alert and oriented x3. Cranial nerves 2 through 12 are grossly intact. Diffusely weak Assessment: Acute blood loss anemia. hb 5.9 due to retroperitoneal bleed with hematoma. Hyperkalemia due to GI bleed. Improved.Status post capsule endoscopy Acute C. difficile infection Bilateral Pneumonia with superimposed gram-negative bacterial infection is suspected mainly in the right lower lobe. Completed antibiotic course. Recent COVID-19 infection with pneumonia Acute hypoxic respiratory failure. Titrate down to room air.. Sepsis secondary to above, resolved Possible discitis as per MRI cervical spine. Hyperkalemia due to urinary retention and acute kidney injury. Improving now. Anemia with vitamin B12 deficiency and currently on IM B12 replacement therapy Elevated troponin, most likely type II. No chest pain, normal LV function Low vitamin B12 and B6 Nonocclusive thrombosis of the left leg status post [place] filter placement Paroxysmal atrial fibrillation no anticoagulation with score of [address] DVT prophylaxis; SCDs No code Plan: Recommend to continue current medications and management with multiple medical consultations following. Hemoglobin 6.9 yesterday and received 1 unit of PRB. She has received 9 total units during hospitalization. Patient attempted colonoscopy although black stool noted throughout with no active bleeding noted after intense irrigation and EGD with some biopsies with no active bleeding noted. GI recommending small capsule study which is currently undergoing and patient has not passed the study as of yet and has had no further bowel movements. GI services will no longer be available and will need reconsult surgery if requiring any interventions Patient was started on vancomycin by mouth. Orthopedics following as needed and awaiting surgical intervention until more stable. Discussed with orthopedics team and no plans for surgical intervention this admission Will follow-up with repeat labs and continue to monitor closely Recommend PT/OT therapy. Patient continues with significant weakness with plantar ECF once stabilized Due to multiple complex medical issues, prognosis is extremely guarded Objective - Vital Signs Vital signs: Vital Signs Temp 98.4 F 12/05/22 14:00 Pulse 69 12/05/22 14:00 Resp 18 12/05/22 14:00 BP 114/70 12/05/22 14:00 Pulse Ox 100 12/05/22 14:00 FiO2 Intake & Output 12/05/22 12/05/22 12/06/22 06:59 18:59 06:59 Intake Total 354 Output Total 600 550 Balance -600 -196 Intake: Oral 354 Output: Urine 600 550 Other: Voiding Method Bedpan Bedpan Diaper Diaper - Labs CBC & Chem 7: 12/06/22 06:22 12/06/22 06:22 Labs: Abnormal Lab Results - Last 24 Hours (Table) 12/05/22 12/05/22 12/05/22 Range/Units 05:20 05:20 05:20 WBC 13.79 H (4.50-10.00) X 10*3/uL RBC 2.49 L (4.40-5.60) X 10*6/uL Hgb 7.5 L (13.0-17.0) g/dL Hct 23.7 L (39.6-50.0) % MCHC 31.6 L (32.0-37.0) g/dL RDW 19.9 H (11.5-14.5) % Plt Count 80 L (140-440) X 10*3/uL Plt Count Comment DECREASED A Immature Gran # 0.11 H (0.00-0.04) X 10*3/uL Neutrophils # 12.26 H (1.80-7.70) X 10*3/uL Eosinophils # 0 L (0.04-0.35) X 10*3/uL Fibrinogen 135 L (200-500) mg/dL D-Dimer 3.72 H (<0.60) mg/L FEU Sodium 134 L (135-145) mmol/L Anion Gap 6.30 L (10.00-18.00) mmol/L BUN 36.1 H (9.0-27.0) mg/dL BUN/Creatinine Ratio 36.10 H (12.00-20.00) Ratio Glucose 123 H (70-110) mg/dL POC Glucose (mg/dL) (70-110) mg/dL Calcium 7.7 L (8.7-10.3) mg/dL AST 11 L (14-35) U/L Total Protein 3.7 L (6.2-8.2) g/dL Albumin 2.4 L (3.8-4.9) g/dL Globulin 1.3 L (1.6-3.3) g/dL C. difficile (EIA) Intrp (Negative) 12/05/22 12/05/22 12/05/22 Range/Units 06:10 12:34 17:15 WBC (4.50-10.00) X 10*3/uL RBC (4.40-5.60) X 10*6/uL Hgb (13.0-17.0) g/dL Hct (39.6-50.0) % MCHC (32.0-37.0) g/dL RDW (11.5-14.5) % Plt Count (140-440) X 10*3/uL Plt Count Comment Immature Gran # (0.00-0.04) X 10*3/uL Neutrophils # (1.80-7.70) X 10*3/uL Eosinophils # (0.04-0.35) X 10*3/uL Fibrinogen (200-500) mg/dL D-Dimer (<0.60) mg/L FEU Sodium (135-145) mmol/L Anion Gap (10.00-18.00) mmol/L BUN (9.0-27.0) mg/dL BUN/Creatinine Ratio (12.00-20.00) Ratio Glucose (70-110) mg/dL POC Glucose (mg/dL) 146 H 129 H 112 H (70-110) mg/dL Calcium (8.7-10.3) mg/dL AST (14-35) U/L Total Protein (6.2-8.2) g/dL Albumin (3.8-4.9) g/dL Globulin (1.6-3.3) g/dL C. difficile (EIA) Intrp (Negative) 12/05/22 Range/Units 18:30 WBC (4.50-10.00) X 10*3/uL RBC (4.40-5.60) X 10*6/uL Hgb (13.0-17.0) g/dL Hct (39.6-50.0) % MCHC (32.0-37.0) g/dL RDW (11.5-14.5) % Plt Count (140-440) X 10*3/uL Plt Count Comment Immature Gran # (0.00-0.04) X 10*3/uL Neutrophils # (1.80-7.70) X 10*3/uL Eosinophils # (0.04-0.35) X 10*3/uL Fibrinogen (200-500) mg/dL D-Dimer (<0.60) mg/L FEU Sodium (135-145) mmol/L Anion Gap (10.00-18.00) mmol/L BUN (9.0-27.0) mg/dL BUN/Creatinine Ratio (12.00-20.00) Ratio Glucose (70-110) mg/dL POC Glucose (mg/dL) (70-110) mg/dL Calcium (8.7-10.3) mg/dL AST (14-35) U/L Total Protein (6.2-8.2) g/dL Albumin (3.8-4.9) g/dL Globulin (1.6-3.3) g/dL C. difficile (EIA) Intrp Positive A (Negative)
[2022-12-07] MEDS ORDERED: MAGNESIUM SULFATE-D5W PMX 1 GM in DEXTROSE/WATER 1 100ML.BAG IVPB ONE (02:39)
--- NOTE | 2022-12-07 02:40 | P.PN ---
Subjective Progress Note Date: 12/06/22 Principal diagnosis: Paroxysmal atrial fibrillation Intractable nausea/vomiting/diarrhea Profound hypokalemia Acute renal injury COVID-19 infection 62-year-old male in the emergency department for diarrhea. She notes diarrhea starting and he asked progressively gotten worse. He reports he stood up from a chair and had an episode of diarrhea, admits he still maintains bowel function. He has not tried anything for his symptoms. He denies nausea, vomiting, abdominal pain, palpitations, fevers. Denies recent travel or recent antibiotic use. He is scheduled to have his first colonoscopy in january of 2023. Patient had an initial lab work is remarkable for WBC is 11.4, hemoglobin 8.7, INR 1.2, sodium 133, potassium 2.6 lactic acid 2.9, calcium 6.3, magnesium 0.8, lipase 60, COVID positive. I interpreted the following; CT abdomen without contrast remarkable for fluid filled colon without focal wall thickening or surrounding inflammatory changes. Patient was given 2 L fluids, potassium, magnesium and calcium during his course of the ED. 11/08/2022 Patient is seen and evaluated on selective care unit; he went into atrial f ibrillation with rapid ventricular response he was transferred to the third floor/selective minute. The patient did not have any symptoms of heart racing or fluttering and no dizziness or lightheadedness and no presyncope or syncope and no symptoms of chest pain or chest discomfort or shortness of breath. No prior history of atrial fibrillation. No history of coronary artery disease or congestive heart failure or cardiac arrhythmia and the patient never seen a informatics physician liaison in the past. Beside that no history of diabetes or hypertension or dyslipidemia. The patient was started initially on Cardizem drip but his pressure did go down and for that reason he was switched into amiodarone IV and subsequently converted to normal sinus mechanism and since then he has been maintaining normal sinus mechanism. Further investigation was performed including CBC and that showed a hemoglobin of 7.7. The patient has no history of bleeding. Beside that he underwent a computed tomography scan of the abdomen and pelvis because of the abdominal discomfort that showed no acute abnormalities. The troponin came in to be slightly elevated likely secondary to tachycardia. The EKG showed sinus rhythm now with no significant ST or T-wave abnormalities. Blood work reveals mild elevation of troponin; Patient has been evaluated by cardiology and recommended to continue with IV fluids, replace electrolytes; IV amiodarone is to be discontinued patient is transition to oral dose daily 11/09/2022 Patient is seen and evaluated in follow-up this morning and continues to feel generalized weakness and continues with loose stools. Per nursing staff when assisting to clean the patient up patient was significantly weak on the right. Patient denied any headache, dizziness, or lightheadedness. Will obtain a CT of the brain and also consult neurology. Recommend PT/OT therapy evaluation for significant weakness. C. diff testing was negative on the stool and will add Imodium and encourage oral intake and advance as tolerated. Patient is maintaining on vitamins and zinc supplements along with subcutaneous heparin with anxiety following closely. Patient denies chest pain or shortness of jadiel ath. Afebrile. Recommend a.m. labs as well. 11/10/2022 Patient is seen in follow-up today with multiple medical consultations including cardiology, hematology, infectious disease, and now neurology following. Patient with significant weakness in all upper and lower extremities with neurology undergoing workup recommending aspirin as patient is not on any anticoagulation at this time. Cardiology is following and patient was transitioned back to IV Cardizem although being changed to oral with close monitoring. Magnesium found to be significantly low at 1.2 and will replace per protocol and recommend repeat labs. Hemoglobin is mildly low at 7.4 and undergoing anemia workup with hematology following. Patient with Covid and extreme weakness will need ECF and discharge planning in process. Recommend close monitoring of labs and replace electrolytes per protocol. Patient was started on Imodium as C. diff testing 2 was negative. Patient continues to have loose stools although somewhat improved. Encouraged oral intake and increased activity as tolerated. Recommend PT/OT therapy daily. Patient denies chest pain or shortness of breath. Patient is 97% on room air. Patient will continue on vitamin and zinc supplements with anxiety following closely. Recommend gentle IV hydration. 11/11/2022 Patient is seen and evaluated in follow-up with multiple medical consultations following including infectious disease and neurology. Oncology following undergoing anemia workup. Hemoglobin was found to be 6.5 today and will order 1 unit of PRBC and recommend close monitoring. No active bleeding noted. Patient was started on baby aspirin per neurology and scheduled to undergo MRI of the cervical spine today. Patient continues with significant weakness and will need rehab upon discharge. Patient is maintained on vitamin and zinc supplements and was also being followed by cardiology. Adjustments to medications being done and patient is on oral Cardizem. Will follow-up with repeat labs. Patient is afebrile and denies shortness of breath. Patient clinically appears to be improving. Per nursing staff patient is incontinent of stool in continues to be somewhat loose although less frequent. C. diff testing was negative and stool cultures are negative. Encouraged oral intake. Will discuss with case management about discharge planning to ECF as he will require a Covid hub. 11/12/2022 Patient is seen and evaluated in follow-up today with multiple medical co nsultations following including infectious disease, cardiology, neurology. Patient's hemoglobin is low again at 6.8 and will give 1 unit. Recommend holding aspirin. Patient did have an elevated d-dimer and CTA was ordered. GI was also consulted for anemia. Patient continues to have incontinence of stool and loose stools and is maintained on Questran and will be given Imodium as needed. Patient continues with generalized weakness and fatigue and also having some lower extremity pain and swelling and have ordered Dopplers of bilateral lower extremities as well. Patient with Covid vitamin and zinc supplements and anticoagulation with subcu heparin. Hematology also following for anemia. Recommend repeat CBC this evening and will transfuse another unit as well. Cardiology following and adjustments to medications being made and patient also being started on low-dose diuretics. Patient is having low-grade temps of 99.3- 99.6 and patient continues to be 95% or above on room air. Blood pressure on the lower side although stable. Stool cultures and C. diff testing have been negative. Patient started on antibiotics per ID recommendations in the form of Zithromax and ceftriaxone. Reviewed iron studies which are low and will give IV iron as well. Electrolytes continue to be low and will replace per protocol. Patient will need ECF once stabilized and discharged 11/13/2022 Patient is seen today with multiple medical consultations following and undergoing neurological workup and having bilateral upper and lower extremity weakness. Neurology recommends orthopedic consultation which is currently pending. Patient did have some movement in his diarrhea and reports becoming more formed and less frequent. Patient continues to be incontinent of this. Patient being started on antibiotics with anxiety following an also continues to have anemia. GI recommending continuing with hematology workup. Multiple images including MRIs and pending at time. Patient with significant weakness will be going to rehab when stable. A.m. labs are pending. 11/24/2022 Patient is currently resting in the bed. Awake alert and oriented x3. No complaints of chest pain or shortness of breath. Left lower abdominal discomfort is improved. Hemoglobin is stable. Vascular surgery has seen the patient is planning for IVC filter placement. Heparin is on hold due to retroperitoneal bleed. Laboratory data showed WBC 25.6 hemoglobin 7.1 and platelets 159 sodium 131 potassium 5.7 chloride 112 bicarb is 37 creatinine 1.18 and calcium 7.0. Nephrology, ID and vascular surgery is on board. 11/25/2022 Patient is currently resting in bed. Awake alert and oriented x3. On room air. No complaints of chest pain or shortness of breath. No abdominal pain. No nausea vomiting abdominal pain or diarrhea. Patient is scheduled for IVC filter placement today. Otherwise hemoglobin level is 6.8 and 1 unit of PRBC was ordered. Other laboratory data showed WBC 20.6 hemoglobin 6.8 and platelets 149 sodium 135 potassium 5.4 chloride 101 bicarb is 23 BUN 34 and creatinine 1.25. Magnesium 1.6. Patient is being continued dexamethasone as per orthopedic surgery. Also on IV Lasix. Nephrology and general surgery is on board. Patient was given a dose of Lokelma yesterday. 11/26/2022 Patient is currently resting in bed. Awake alert and oriented x3. No complaints of back pain or abdominal pain. No nausea vomiting abdominal pain or diarrhea. No cough or sputum production. Currently on room air. Patient is status post IVC filter placement on 11/25/2022. Patient received 1 unit of PRBC yesterday and hemoglobin improved to 7.6 today. Level data showed WBC 22.3 hemoglobin 7.6 and platelets 141 sodium 136 potassium 5.3 chloride 101 bicarb is 23 BUN 32 and creatinine 1.23 and blood sugar is 125 and calcium 7.2. Magnesium 1.9. Follow-up CBC and BMP was ordered. Orthopedic surgery is planning for OR when medically stable tomorrow. 11/28/2022 Patient is seen and evaluated in follow-up and apparently orthopedics is scheduled for surgical intervention is patient is unstable. Recommending awaiting medical clearance. Infectious disease following and patient is being maintained and monitored closely of IV antibiotic therapy. Patient is status post Tali filter placement any stable. No active bleeding noted. General surgery following for hematoma on the back with no surgical interventions planned. Patient with significant weakness recommend PT/OT therapy and will discuss with case management about discharge planning and ECF. Recommend follow-up labs in the a.m. she is currently afebrile denies chest pain or shortness of breath. He stable. No active bleeding noted. Patient is tolerating diet with no reports of nausea or vomiting noted. 11/29/2022 Patient was seen in follow-up this morning with orthopedics along with infectious disease, nephrology, general surgery, hematology following. Vital signs of been stable patient is continued on dexamethasone per orthopedics and will discuss about weaning parameters. Patient is also maintained off of anti biotics. Patient was significant weakness recommend PT/OT therapy and rehab on discharge. Patient continues to have elevated white blood count is infectious disease following and repeat inflammatory markers ordered. Patient is afebrile denies chest pain or shortness of breath. 11/30/2022 Patient is seen and evaluated in follow-up today with multiple medical consultations following. Hemoglobin was found to be critically low at 5.5 with a hematocrit of 17.6 and awaiting to receive 2 units of blood. Patient is status post IVC filter this admission as he was having anemia with acute on chronometer assembler malgorzata DVT of the left proximal vein and also found to have a large intramuscular hematoma of the left iliac muscle, retroperitoneal hematoma. Gen. surgery services following as well. Patient also noted be having black tarry stools and will reconsult GI as we have services available tomorrow. Patient was having some abdominal discomfort and will obtain CT angiogram and evaluate for bleeding. Orthopedics following and were initially discussing surgical intervention of the lower spine although on hold as patient is not medically stable for surgical intervention at this time. Patient is maintained on IV dexamethasone and being weaned per orthopedics. Patient continues with significant weakness and bilateral foot drop and inability to ambulate and generalized edema noted throughout. Patient is maintained on oral Lasix and will give a dose of IV Lasix posttransfusion and follow-up with repeat labs this evening. Patient is afebrile denies chest pain or shortness of breath. Patient is frustrated and appears depressed. Patient denies any suicidal thoughts or wanting to harm himself or others. 12/01/2022 Patient is seen and evaluated in follow-up this morning hemoglobin post 2 units of packed red blood cells was 7.7. CT angiogram abdomen and pelvis was negative for any acute bleeding and GI was placed on consult with patient being scheduled for EGD/colonoscopy. Patient is afebrile denies chest pain or shortness of breath. Patient is tolerating diet with no reports of nausea vomiting noted. Orthopedics following as well and no plans for immediate interventions at this time until patient is more stable. No reports of chest pain or shortness of breath patient is sitting up in the bed on room air. Will follow-up with repeat labs. 12/02/2022 Patient is seen and evaluated this morning currently sitting up in the bed with family at the bedside. Patient was tentatively scheduled for EGD/colonoscopy although did not complete the prep still having formed brown stools continue with bowel prep and scheduled for EGD/colonoscopy in the a.m. Repeat labs reveal hemoglobin of 5.9 and will transfuse recommend follow-up labs. Patient is afebrile with no reports of nausea or vomiting noted. Patient denies chest pain or shortness of breath. Hematology following as well undergoing further workup for anemia. 12/03/2022 Patient is seen and evaluated in follow-up this morning currently nothing by mouth patient completed a bowel prep and initially per nursing staff had clear stools now continuing to have loose black sludgy stools 3 and C. diff ordered. Hemoglobin was found to be 6.9 and awaiting to receive 1 unit of PRBC. Plan is for EGD/colonoscopy with GI today. Patient is currently afebrile denies chest pain or shortness of breath. Patient is extremely anxious and persist to ask daily of when he can have his orthopedic interventions done. Discussed with orthopedic team and there are no plans for immediate surgical intervention during this admission. Patient with Significant weakness and recommend PT/OT therapy daily. Will resume diet once cleared by GI after endoscopic intervention. Recommend follow-up labs and will continue to monitor closely. 12/04/2022 Patient is seen this morning hemoglobin is 6.9 and per nursing staff has not had another bowel movement. Patient is currently undergoing a tagged RBC study with the capsule and pending report. Patient will be given a unit of PRBC and recommend repeat CBC in the evening. Multiple medical consultations following and continuing with bleeding workup. Denies chest pain or shortness of breath. Patient is afebrile and denies nausea or vomiting. Patient is tolerating diet. Patient reporting some insomnia and difficulty in sleeping will add Restoril as needed. Recommend close monitoring of vital signs and labs and will follow-up with the patient. 12/05/2022 Patient is currently resting in bed. Awake alert and oriented x3. On room air saturating 100%. Patient is status post capsule endoscopy. No active bleeding noted. No complaints of chest pain or worsening shortness of breath. No nausea vomiting. Patient did have an episode of diarrhea and is tested positive for C. difficile infection. Laboratory showed WBC 13.7 hemoglobin 7.5 and platelets 80 D-dimer is 3.72. Sodium 134 potassium 4.7 chloride 106 BUN 36 and creatinine 1.0 and magnesium 1.7. Patient was started on vancomycin. ID is on board. 12/06/2022 Patient is currently resting in the bed. Awake alert and oriented x3. No further results of GI bleed. Patient denies any diarrhea or bowel movement since yesterday. Capsule endoscopy camera not prescribed yet.. Patient is otherwise hemodynamically stable. Hemoglobin is 7.2 today. WBC 13.2, platelets 84 sodium 134 potassium 5.0 bicarb is 19.8 and patient was given a dose of bicarb by nephrology. BUN 30.4 and creatinine 1.1. Magnesium 1.7. Continued on p.o. vancomycin. Review of systems: Constitutional: No reports of fatigue, no fever, or chills Cardiovascular: No reports of chest pain or palpitations Respiratory: No reports of shortness of breath or cough GI: No reports of nausea, vomiting, reports no stools today : No reports of dysuria or retention Neurovascular: reports of generalized weakness reports difficulty in sleeping All medications have been reviewed Active Medications Acetaminophen (Acetaminophen Tab 325 Mg Tab) 650 mg PO Q6HR PRN PRN Reason: Mild Pain or Fever > 100.5 Last Admin: 11/23/22 05:38 Dose: 650 mg Ascorbic Acid (Ascorbic Acid 500 Mg Tab) 500 mg PO BID [facility] Last Admin: 12/04/22 08:35 Dose: 500 mg Calcium Carbonate/Glycine (Calcium Carbonate 500 Mg Chewable) 500 mg PO TID [facility] Last Admin: 12/04/22 08:33 Dose: 500 mg Cholecalciferol (Cholecalciferol 25 Mcg (1000 Iu) Tablet) 50 mcg PO DAILY [facility] Last Admin: 12/04/22 08:34 Dose: 50 mcg Cholestyramine Resin (Cholestyramine (With Sugar) 4 Gm Packet) 4 gm PO BID@1000,1800 [facility] Last Admin: 12/04/22 08:33 Dose: 4 gm Cyanocobalamin (Cyanocobalamin 500 Mcg Tab) 1,000 mcg PO DAILY [facility] Last Admin: 12/04/22 08:34 Dose: 1,000 mcg Dexamethasone Sodium Phosphate (Dexamethasone Sod Phosphate 4 Mg/Ml 1 Ml Vial) 2 mg IVP Q8HR [facility] Last Admin: 12/04/22 08:35 Dose: 2 mg Dextrose/Water (Dextrose 50% Syringe 50 Ml) 25 ml IVP PER PROTOCOL PRN; Protocol PRN Reason: Hypoglycemia Dextrose/Water (Dextrose 50% Syringe 50 Ml) 50 ml IVP PER PROTOCOL PRN; Protocol PRN Reason: Hypoglycemia Diclofenac Sodium (Diclofenac Sodium Gel 100 Gm Tube) 2 gm TOPICAL QID PRN; Protocol PRN Reason: Pain Diltiazem HCl (Diltiazem Oral 30 Mg Tab) 30 mg PO TID [facility] Last Admin: 12/04/22 10:41 Dose: 30 mg Fluoxetine HCl (Fluoxetine Hcl 20 Mg Cap) 20 mg PO DAILY [facility] Last Admin: 12/04/22 08:35 Dose: 20 mg Folic Acid (Folic Acid 1 Mg Tab) 0.5 mg PO DAILY [facility] Last Admin: 12/04/22 08:34 Dose: 0.5 mg Furosemide (Furosemide 40 Mg Tab) 40 mg PO DAILY [facility] Last Admin: 12/04/22 08:34 Dose: 40 mg Furosemide (Furosemide 10 Mg/Ml 4 Ml Vial) 40 mg IV ONCE PRN PRN Reason: Edema Last Admin: 11/30/22 18:04 Dose: 40 mg Insulin Aspart (Insulin Aspart (Novolog) 100 Unit/Ml Vial) 0 unit SQ [facility]; Protocol Last Admin: 12/04/22 12:49 Dose: Not Given Insulin Detemir (Insulin Detemir (Levemir) 100 Unit/Ml Syr) 10 unit SQ DAILY@0700 [facility] Last Admin: 12/04/22 08:33 Dose: 10 unit Levothyroxine Sodium (Levothyroxine 50 Mcg Tab) 50 mcg PO DAILY@0630 [facility] Last Admin: 12/04/22 06:28 Dose: 50 mcg Loperamide HCl (Loperamide 2 Mg Cap) 2 mg PO QID PRN PRN Reason: Diarrhea Last Admin: 11/12/22 09:47 Dose: 2 mg Magnesium Oxide (Magnesium Oxide 400 Mg Tab) 400 mg PO DAILY [facility] Last Admin: 12/04/22 08:33 Dose: 400 mg Miscellaneous Information (Magnesium Replacement Protocol 1 Each Misc) 1 each MISCELLANE DAILY PRN; Protocol PRN Reason: Per Protocol Naloxone HCl (Naloxone 0.4 Mg/Ml 1 Ml Vial) 0.2 mg IV Q2M PRN PRN Reason: Opioid Reversal Pantoprazole Sodium (Pantoprazole 40 Mg/10 Ml Vial) 40 mg IVP BID [facility] Last Admin: 12/04/22 08:34 Dose: 40 mg Pyridoxine HCl (Pyridoxine 50 Mg Tab) 50 mg PO DAILY [facility] Last Admin: 12/04/22 08:34 Dose: 50 mg Sodium Bicarbonate (Sodium Bicarbonate Tab 650 Mg Tab) 650 mg PO BID [facility] Last Admin: 12/04/22 08:34 Dose: 650 mg Tamsulosin HCl (Tamsulosin 0.4 Mg Cap.Er.24h) 0.4 mg PO PC-SUPPER [facility] Last Admin: 12/03/22 18:11 Dose: 0.4 mg Temazepam (Temazepam 15 Mg Cap) 7.5 mg PO HS PRN PRN Reason: Insomnia Thiamine HCl (Thiamine 100 Mg Tab) 100 mg PO DAILY [facility] Last Admin: 12/04/22 08:34 Dose: 100 mg Physical exam: Gen: This is a 62-year-old male awake, alert and oriented 3, well-developed, well-nourished, ill-appearing. Pale HEENT: Head is atraumatic, normocephalic. Pupils equal, round. Sclerae is anicteric. NECK: Supple. No JVD. No lymphadenopathy. No thyromegaly. LUNGS: Breath sounds diminished bilaterally with some scattered rhonchi noted. No intercostal retractions. HEART: S1, S2 are muffled, irregular ABDOMEN: Soft. Mildly tender on palpation. Bowel sounds are present. No masses. EXTREMITIES: No pedal edema. No calf tenderness. Lower extremity edema. Bilateral upper and lower extremity weakness generalized edema noted NEUROLOGICAL: Patient is awake, alert and oriented x3. Cranial nerves 2 through 12 are grossly intact. Diffusely weak Assessment: Acute blood loss anemia. hb 5.9 due to retroperitoneal bleed with hematoma. Hyperkalemia due to GI bleed. Improved.Status post capsule endoscopy Acute C. difficile infection Bilateral Pneumonia with superimposed gram-negative bacterial infection is suspected mainly in the right lower lobe. Completed antibiotic course. Recent COVID-19 infection with pneumonia Acute hypoxic respiratory failure. Titrate down to room air.. Sepsis secondary to above, resolved Possible discitis as per MRI cervical spine. Hyperkalemia due to urinary retention and acute kidney injury. Improving now. Anemia with vitamin B12 deficiency and currently on IM B12 replacement therapy Elevated troponin, most likely type II. No chest pain, normal LV function Low vitamin B12 and B6 Nonocclusive thrombosis of the left leg status post Tali filter placement Paroxysmal atrial fibrillation no anticoagulation with score of 0 per [place] DVT prophylaxis; SCDs No code Plan: Recommend to continue current medications and management with multiple medical consultations following. he has received 9 total units during hospitalization.hb 7.2 today. Patient attempted colonoscopy although black stool noted throughout with no active bleeding noted after intense irrigation and EGD with some biopsies with no active bleeding noted. GI recommending small capsule study which is currently undergoing and patient has not passed the study as of yet and has had no further bowel movements. GI services will no longer be available and will need reconsul t surgery if requiring any interventions Patient was started on vancomycin by mouth. Orthopedics following as needed and awaiting surgical intervention until more stable. Discussed with orthopedics team and no plans for surgical intervention this admission Will follow-up with repeat labs and continue to monitor closely Recommend PT/OT therapy. Patient continues with significant weakness with fer ntar ECF once stabilized Due to multiple complex medical issues, prognosis is extremely guarded Objective - Vital Signs Vital signs: Vital Signs Temp 98.5 F 12/06/22 19:06 Pulse 70 12/06/22 19:06 Resp 18 12/06/22 19:06 BP 110/70 12/06/22 19:06 Pulse Ox 100 12/06/22 19:06 FiO2 Intake & Output 12/06/22 12/06/22 12/07/22 06:59 18:59 06:59 Intake Total 298 Output Total 700 1000 Balance -700 -702 Intake: Oral 298 Output: Urine 700 1000 Other: Voiding Method Bedpan Bedpan Diaper Diaper - Labs CBC & Chem 7: 12/06/22 06:22 12/06/22 06:22 Labs: Abnormal Lab Results - Last 24 Hours (Table) 12/05/22 12/06/22 12/06/22 Range/Units 22:13 06:18 06:22 WBC (4.50-10.00) X 10*3/uL RBC (4.40-5.60) X 10*6/uL Hgb (13.0-17.0) g/dL Hct (39.6-50.0) % RDW (11.5-14.5) % Plt Count (140-440) X 10*3/uL Immature Gran # (0.00-0.04) X 10*3/uL Neutrophils # (1.80-7.70) X 10*3/uL Eosinophils # (0.04-0.35) X 10*3/uL Sodium 134 L (135-145) mmol/L Carbon Dioxide 19.8 L (20.0-27.5) mmol/L Anion Gap 8.10 L (10.00-18.00) mmol/L BUN 30.4 H (9.0-27.0) mg/dL BUN/Creatinine Ratio 27.64 H (12.00-20.00) Ratio Glucose 124 H (70-110) mg/dL POC Glucose (mg/dL) 171 H 140 H (70-110) mg/dL Calcium 7.6 L (8.7-10.3) mg/dL 12/06/22 12/06/22 12/06/22 Range/Units 06:22 06:24 12:37 WBC 13.21 H (4.50-10.00) X 10*3/uL RBC 2.36 L (4.40-5.60) X 10*6/uL Hgb 7.2 L (13.0-17.0) g/dL Hct 22.5 L (39.6-50.0) % RDW 20.0 H (11.5-14.5) % Plt Count 84 L (140-440) X 10*3/uL Immature Gran # 0.11 H (0.00-0.04) X 10*3/uL Neutrophils # 11.71 H (1.80-7.70) X 10*3/uL Eosinophils # 0 L (0.04-0.35) X 10*3/uL Sodium (135-145) mmol/L Carbon Dioxide (20.0-27.5) mmol/L Anion Gap (10.00-18.00) mmol/L BUN (9.0-27.0) mg/dL BUN/Creatinine Ratio (12.00-20.00) Ratio Glucose (70-110) mg/dL POC Glucose (mg/dL) 137 H 118 H (70-110) mg/dL Calcium (8.7-10.3) mg/dL 12/06/22 12/06/22 Range/Units 17:06 20:06 WBC (4.50-10.00) X 10*3/uL RBC (4.40-5.60) X 10*6/uL Hgb (13.0-17.0) g/dL Hct (39.6-50.0) % RDW (11.5-14.5) % Plt Count (140-440) X 10*3/uL Immature Gran # (0.00-0.04) X 10*3/uL Neutrophils # (1.80-7.70) X 10*3/uL Eosinophils # (0.04-0.35) X 10*3/uL Sodium (135-145) mmol/L Carbon Dioxide (20.0-27.5) mmol/L Anion Gap (10.00-18.00) mmol/L BUN (9.0-27.0) mg/dL BUN/Creatinine Ratio (12.00-20.00) Ratio Glucose (70-110) mg/dL POC Glucose (mg/dL) 140 H 170 H (70-110) mg/dL Calcium (8.7-10.3) mg/dL
[2022-12-07 05:51] LABS: Glucose,Whole Blood 129 mg/dL (70-110)
[2022-12-07] MEDS: INSULIN ASPART (NovoLOG) 100 UNIT/ML VIAL SQ SCH ×4 (06:08→21:39)
[2022-12-07] MEDS: LEVOTHYROXINE 50 MCG TAB PO SCH (06:15)
--- NOTE | 2022-12-07 08:24 | P.PN ---
Subjective Progress Note Date: 12/06/22 Principal diagnosis: Abnormal MRI questionable discitis Patient is a 62-year-old male who is unvaccinated for COVID-19 patient was brought into the ER for evaluation of weakness no energy mention the patient was not able to get stand up and go to the bathroom patient has been dealing with the diarrhea off and on for couple of weeks, patient was noticed to have a positive covid test, however the patient was not hypoxic and CT abdominal pelvis with few bibasilar patchy groundglass opacity representing atelectasis and no evidence of colitis. Patient did have a drop in his hemoglobin and underwent a CT angiogram that demonstrated a large intramuscular hematoma in the left iliac is muscle in the retroperitoneum. 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 On today's evaluation that is 12/06/2022, the patient denies any fever or any chills, the patient is breathing comfortably on room air, The patient denies chest pain, patient did have occasional dry cough , the patient did have slight nausea but no vomiting no abdominal pain and denies having any worsening diarrhea Objective - Vital Signs Vital signs: Vital Signs Temp 97.9 F 12/06/22 14:00 Pulse 68 12/06/22 14:00 Resp 18 12/06/22 14:00 BP 114/70 12/06/22 14:00 Pulse Ox 100 12/06/22 14:00 FiO2 Intake & Output 12/05/22 12/06/22 12/06/22 18:59 06:59 18:59 Intake Total 354 118 Output Total 550 700 Balance -196 -700 118 Intake: Oral 354 118 Output: Urine 550 700 Other: Voiding Method Bedpan Bedpan Bedpan Diaper Diaper Diaper - Exam GENERAL DESCRIPTION: An elderly male lying in bed in no distress RESPIRATORY SYSTEM: Unlabored breathing , decreased breath sounds at bases HEART: S1 S2 regular rate and rhythm , ABDOMEN: Soft , no tenderness EXTREMITIES: No edema feet - Labs CBC & Chem 7: 12/06/22 06:22 12/06/22 06:22 Labs: Abnormal Lab Results - Last 24 Hours (Table) 12/05/22 12/05/22 12/05/22 Range/Units 17:15 18:30 22:13 WBC (4.50-10.00) X 10*3/uL RBC (4.40-5.60) X 10*6/uL Hgb (13.0-17.0) g/dL Hct (39.6-50.0) % RDW (11.5-14.5) % Plt Count (140-440) X 10*3/uL Immature Gran # (0.00-0.04) X 10*3/uL Neutrophils # (1.80-7.70) X 10*3/uL Eosinophils # (0.04-0.35) X 10*3/uL Sodium (135-145) mmol/L Carbon Dioxide (20.0-27.5) mmol/L Anion Gap (10.00-18.00) mmol/L BUN (9.0-27.0) mg/dL BUN/Creatinine Ratio (12.00-20.00) Ratio Glucose (70-110) mg/dL POC Glucose (mg/dL) 112 H 171 H (70-110) mg/dL Calcium (8.7-10.3) mg/dL C. difficile (EIA) Intrp Positive A (Negative) 12/06/22 12/06/22 12/06/22 Range/Units 06:18 06:22 06:22 WBC 13.21 H (4.50-10.00) X 10*3/uL RBC 2.36 L (4.40-5.60) X 10*6/uL Hgb 7.2 L (13.0-17.0) g/dL Hct 22.5 L (39.6-50.0) % RDW 20.0 H (11.5-14.5) % Plt Count 84 L (140-440) X 10*3/uL Immature Gran # 0.11 H (0.00-0.04) X 10*3/uL Neutrophils # 11.71 H (1.80-7.70) X 10*3/uL Eosinophils # 0 L (0.04-0.35) X 10*3/uL Sodium 134 L (135-145) mmol/L Carbon Dioxide 19.8 L (20.0-27.5) mmol/L Anion Gap 8.10 L (10.00-18.00) mmol/L BUN 30.4 H (9.0-27.0) mg/dL BUN/Creatinine Ratio 27.64 H (12.00-20.00) Ratio Glucose 124 H (70-110) mg/dL POC Glucose (mg/dL) 140 H (70-110) mg/dL Calcium 7.6 L (8.7-10.3) mg/dL C. difficile (EIA) Intrp (Negative) 12/06/22 12/06/22 Range/Units 06:24 12:37 WBC (4.50-10.00) X 10*3/uL RBC (4.40-5.60) X 10*6/uL Hgb (13.0-17.0) g/dL Hct (39.6-50.0) % RDW (11.5-14.5) % Plt Count (140-440) X 10*3/uL Immature Gran # (0.00-0.04) X 10*3/uL Neutrophils # (1.80-7.70) X 10*3/uL Eosinophils # (0.04-0.35) X 10*3/uL Sodium (135-145) mmol/L Carbon Dioxide (20.0-27.5) mmol/L Anion Gap (10.00-18.00) mmol/L BUN (9.0-27.0) mg/dL BUN/Creatinine Ratio (12.00-20.00) Ratio Glucose (70-110) mg/dL POC Glucose (mg/dL) 137 H 118 H (70-110) mg/dL Calcium (8.7-10.3) mg/dL C. difficile (EIA) Intrp (Negative) Assessment and Plan (1) COVID-19 Current Visit: Yes Status: Acute Priority: High Code(s): U07.1 - COVID-19 SNOMED Code(s): 753950962 Plan: 1patient did have a abnormal MRI of the cervical spine as well as lumbar spine with a questionable discitis reported by radiologist however the patient did have normal sed rate and a CRP 2, patient is currently being monitor closely off antibiotic therapy to increase the yield of any culture to be done at the time of surgery . 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 diff for the patient has been started on oral vancomycin and will monitor clinical course closely Time with Patient: Less than 30
[2022-12-07 08:45] LABS: Basophils # (A) 0.01 X 10*3/uL (0.00-0.10); Basophils % (A) 0.1 %; Eosinophils # (A) 0.01 X 10*3/uL (0.04-0.35); Eosinophils % (A) 0.1 %; HCT 24.7 % (39.6-50.0); HGB 7.8 g/dL (13.0-17.0); Lymphocytes # (A) 0.96 X 10*3/uL (0.90-5.00); Lymphocytes % (A) 7.7 %; MCH 30.8 pg (27.0-32.0); MCHC 31.6 g/dL (32.0-37.0); MCV 97.6 fL (80.0-97.0); Mean Platelet Volume 10.7 fL (9.5-12.2); Monocytes # (A) 0.48 X 10*3/uL (0.20-1.00); Monocytes % (A) 3.9 %; NRBC Per 100 WBC 0 /100 WBCS (0.0-0.0); Neutrophils # (A) 10.82 X 10*3/uL (1.80-7.70); Neutrophils % (A) 87.2 %; Platelet Count 87 X 10*3/uL (140-440); RBC 2.53 X 10*6/uL (4.40-5.60)
[2022-12-07 09:00] LABS: African American GFR (CKD) 82.9 (60.0-200.0); Anion Gap 2.9 mmol/L (10.00-18.00); BUN/Creat Ratio 26.82 Ratio (12.00-20.00); Blood Urea Nitrogen 29.5 mg/dL (9.0-27.0); Calcium 7.7 mg/dL (8.7-10.3); Carbon Dioxide 25.1 mmol/L (20.0-27.5); Non-African American GFR(CKD) 71.6 (60.0-200.0); Potassium 4.8 mmol/L (3.5-5.5)
[2022-12-07] MEDS: INSULIN DETEMIR (LEVEMIR) 100 UNIT/ML SYR SQ SCH (09:37)
[2022-12-07] MEDS: CYANOCOBALAMIN 500 MCG TAB PO SCH (09:38)
[2022-12-07] MEDS: MAGNESIUM OXIDE 400 MG TAB PO SCH ×2 (09:38→21:35)
[2022-12-07] MEDS: VANCOMYCIN 125 MG CAPSULE PO SCH ×4 (09:38→21:35)
[2022-12-07] MEDS: PANTOPRAZOLE 40 MG/10 ML VIAL IVP SCH ×2 (09:38→21:32)
[2022-12-07] MEDS: SODIUM BICARBONATE TAB 650 MG TAB PO SCH ×2 (09:39→21:35)
[2022-12-07] MEDS: valACYclovir HCL 1,000 MG TABLET PO SCH ×2 (09:39→21:35)
[2022-12-07] MEDS: PYRIDOXINE 50 MG TAB PO SCH (09:39)
[2022-12-07] MEDS: FOLIC ACID 1 MG TAB PO SCH (09:39)
[2022-12-07] MEDS: ASCORBIC ACID 500 MG TAB PO SCH ×2 (09:39→21:35)
[2022-12-07] MEDS: FLUoxetine HCL 20 MG CAP PO SCH (09:40)
[2022-12-07] MEDS: CHOLECALCIFEROL 25 MCG (1000 IU) TABLET PO SCH (09:40)
[2022-12-07] MEDS: CALCIUM CARBONATE 500 MG CHEWABLE PO SCH ×3 (09:40→21:35)
[2022-12-07] MEDS: FUROSEMIDE 40 MG TAB PO SCH (09:40)
[2022-12-07] MEDS: DILTIAZEM ORAL 30 MG TAB PO SCH ×3 (09:40→21:35)
[2022-12-07] MEDS: THIAMINE 100 MG TAB PO SCH (09:40)
[2022-12-07 10:04] LABS: Glucose,Whole Blood 124 mg/dL (70-110)
[2022-12-07 12:18] LABS: Glucose,Whole Blood 116 mg/dL (70-110)
--- NOTE | 2022-12-07 12:24 | P.PN ---
Subjective Progress Note Date: 12/07/22 Principal diagnosis: Abnormal MRI questionable discitis Patient is a 62-year-old male who is unvaccinated for COVID-19 patient was brought into the ER for evaluation of weakness no energy mention the patient was not able to get stand up and go to the bathroom patient has been dealing with the diarrhea off and on for couple of weeks, patient was noticed to have a positive covid test, however the patient was not hypoxic and CT abdominal pelvis with few bibasilar patchy groundglass opacity representing atelectasis and no evidence of colitis. Patient did have a drop in his hemoglobin and underwent a CT angiogram that demonstrated a large intramuscular hematoma in the left iliac is muscle in the retroperitoneum. 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 On today's evaluation that is 12/07/2022, the patient remains to be afebrile, the patient is breathing comfortably on room air, The patient denies chest pain, patient denies any cough or sputum production no nausea no vomiting no abdominal pain did have one small bowel movement last night nurses and mention it was not loose Objective - Vital Signs Vital signs: Vital Signs Temp 97.8 F 12/07/22 08:00 Pulse 68 12/07/22 08:00 Resp 16 12/07/22 08:00 BP 124/77 12/07/22 08:00 Pulse Ox 100 12/07/22 08:00 FiO2 Intake & Output 12/06/22 12/07/22 12/07/22 18:59 06:59 18:59 Intake Total 298 Output Total 1000 700 Balance -702 -700 Intake: Oral 298 Output: Urine 1000 700 Other: Voiding Method Bedpan Bedpan External Catheter Diaper Diaper # Voids 1 # Bowel Movements 1 - Exam GENERAL DESCRIPTION: An elderly male lying in bed in no distress RESPIRATORY SYSTEM: Unlabored breathing , decreased breath sounds at bases HEART: S1 S2 regular rate and rhythm , ABDOMEN: Soft , no tenderness EXTREMITIES: No edema feet - Labs CBC & Chem 7: 12/07/22 05:34 12/07/22 05:34 Labs: Abnormal Lab Results - Last 24 Hours (Table) 12/06/22 12/06/22 12/06/22 Range/Units 12:37 17:06 20:06 WBC (4.50-10.00) X 10*3/uL RBC (4.40-5.60) X 10*6/uL Hgb (13.0-17.0) g/dL Hct (39.6-50.0) % MCV (80.0-97.0) fL MCHC (32.0-37.0) g/dL RDW (11.5-14.5) % Plt Count (140-440) X 10*3/uL Immature Gran # (0.00-0.04) X 10*3/uL Neutrophils # (1.80-7.70) X 10*3/uL Eosinophils # (0.04-0.35) X 10*3/uL Sodium (135-145) mmol/L Anion Gap (10.00-18.00) mmol/L BUN (9.0-27.0) mg/dL BUN/Creatinine Ratio (12.00-20.00) Ratio POC Glucose (mg/dL) 118 H 140 H 170 H (70-110) mg/dL Calcium (8.7-10.3) mg/dL 12/07/22 12/07/22 12/07/22 Range/Units 05:34 05:34 05:49 WBC 12.40 H (4.50-10.00) X 10*3/uL RBC 2.53 L (4.40-5.60) X 10*6/uL Hgb 7.8 L (13.0-17.0) g/dL Hct 24.7 L (39.6-50.0) % MCV 97.6 H (80.0-97.0) fL MCHC 31.6 L (32.0-37.0) g/dL RDW 21.0 H (11.5-14.5) % Plt Count 87 L (140-440) X 10*3/uL Immature Gran # 0.12 H (0.00-0.04) X 10*3/uL Neutrophils # 10.82 H (1.80-7.70) X 10*3/uL Eosinophils # 0.01 L (0.04-0.35) X 10*3/uL Sodium 134 L (135-145) mmol/L Anion Gap 2.90 L (10.00-18.00) mmol/L BUN 29.5 H (9.0-27.0) mg/dL BUN/Creatinine Ratio 26.82 H (12.00-20.00) Ratio POC Glucose (mg/dL) 129 H (70-110) mg/dL Calcium 7.7 L (8.7-10.3) mg/dL 12/07/22 12/07/22 Range/Units 10:02 12:15 WBC (4.50-10.00) X 10*3/uL RBC (4.40-5.60) X 10*6/uL Hgb (13.0-17.0) g/dL Hct (39.6-50.0) % MCV (80.0-97.0) fL MCHC (32.0-37.0) g/dL RDW (11.5-14.5) % Plt Count (140-440) X 10*3/uL Immature Gran # (0.00-0.04) X 10*3/uL Neutrophils # (1.80-7.70) X 10*3/uL Eosinophils # (0.04-0.35) X 10*3/uL Sodium (135-145) mmol/L Anion Gap (10.00-18.00) mmol/L BUN (9.0-27.0) mg/dL BUN/Creatinine Ratio (12.00-20.00) Ratio POC Glucose (mg/dL) 124 H 116 H (70-110) mg/dL Calcium (8.7-10.3) mg/dL Assessment and Plan (1) COVID-19 Current Visit: Yes Status: Acute Priority: High Code(s): U07.1 - COVID-19 SNOMED Code(s): 073791059 Plan: 1patient did have a abnormal MRI of the cervical spine as well as lumbar spine with a questionable discitis reported by radiologist however the patient did have normal sed rate and a CRP 2, patient is currently being monitor closely off antibiotic therapy to increase the yield of any culture to be done at the time of surgery . 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 diff for the patient has been started on oral vancomycin , no further diarrhea has been reported, plan will be 10 day course of oral vancomycin Time with Patient: Less than 30
--- NOTE | 2022-12-07 14:42 | P.PN ---
Subjective Progress Note Date: 12/07/22 Paroxysmal atrial fibrillation Intractable nausea/vomiting/diarrhea Profound hypokalemia Acute renal injury COVID-19 infection 62-year-old male in the emergency department for diarrhea. She notes diarrhea starting and he asked progressively gotten worse. He reports he stood up from a chair and had an episode of diarrhea, admits he still maintains bowel function. He has not tried anything for his symptoms. He denies nausea, vomiting, abdominal pain, palpitations, fevers. Denies recent travel or recent antibiotic use. He is scheduled to have his first colonoscopy in january of 2023. Patient had an initial lab work is remarkable for WBC is 11.4, hemoglobin 8.7, INR 1.2, sodium 133, potassium 2.6 lactic acid 2.9, calcium 6.3, magnesium 0.8, lipase 60, COVID positive. I interpreted the following; CT abdomen without contrast remarkable for fluid filled colon without focal wall thickening or surrounding inflammatory changes. Patient was given 2 L fluids, potassium, magnesium and calcium during his course of the ED. 11/08/2022 Patient is seen and evaluated on selective care unit; he went into atrial fibrillation with rapid ventricular response he was transferred to the third floor/selective minute. The patient did not have any symptoms of heart racing or fluttering and no dizziness or lightheadedness and no presyncope or syncope and no symptoms of chest pain or chest discomfort or shortness of breath. No prior history of atrial fibrillation. No history of coronary artery disease or congestive heart failure or cardiac arrhythmia and the patient never seen a cotton weigher in the past. Beside that no history of diabetes or hypertension or dyslipidemia. The patient was started initially on Cardizem drip but his pressure did go down and for that reason he was switched into amiodarone IV and subsequently converted to normal sinus mechanism and since then he has been maintaining normal sinus mechanism. Further investigation was performed including CBC and that showed a hemoglobin of 7.7. The patient has no history of bleeding. B eside that he underwent a computed tomography scan of the abdomen and pelvis because of the abdominal discomfort that showed no acute abnormalities. The troponin came in to be slightly elevated likely secondary to tachycardia. The EKG showed sinus rhythm now with no significant ST or T-wave abnormalities. Blood work reveals mild elevation of troponin; Patient has been evaluated by cardiology and recommended to continue with IV fluids, replace electrolytes; IV amiodarone is to be discontinued patient is transition to oral dose daily 11/09/2022 Patient is seen and evaluated in follow-up this morning and continues to feel generalized weakness and continues with loose stools. Per nursing staff when assisting to clean the patient up patient was significantly weak on the right. Patient denied any headache, dizziness, or lightheadedness. Will obtain a CT of the brain and also consult neurology. Recommend PT/OT therapy evaluation for significant weakness. C. diff testing was negative on the stool and will add Imodium and encourage oral intake and advance as tolerated. Patient is ma intaining on vitamins and zinc supplements along with subcutaneous heparin with anxiety following closely. Patient denies chest pain or shortness of breath. Afebrile. Recommend a.m. labs as well. 11/10/2022 Patient is seen in follow-up today with multiple medical consultations including cardiology, hematology, infectious disease, and now neurology following. Patient with significant weakness in all upper and lower extremities with neurology undergoing workup recommending aspirin as patient is not on any anticoagulation at this time. Cardiology is following and patient was transitioned back to IV Cardizem although being changed to oral with close monitoring. Magnesium found to be significantly low at 1.2 and will replace per protocol and recommend repeat labs. Hemoglobin is mildly low at 7.4 and undergoing anemia workup with hematology following. Patient with Covid and extreme weakness will need ECF and discharge planning in process. Recommend close monitoring of labs and replace electrolytes per protocol. Patient was started on Imodium as C. diff testing 2 was negative. Patient continues to have loose stools although somewhat improved. Encouraged oral intake and incr eased activity as tolerated. Recommend PT/OT therapy daily. Patient denies chest pain or shortness of breath. Patient is 97% on room air. Patient will continue on vitamin and zinc supplements with anxiety following closely. Recommend gentle IV hydration. 11/11/2022 Patient is seen and evaluated in follow-up with multiple medical consultations following including infectious disease and neurology. Oncology following undergoing anemia workup. Hemoglobin was found to be 6.5 today and will order 1 unit of PRBC and recommend close monitoring. No active bleeding noted. Patient was started on baby aspirin per neurology and scheduled to undergo MRI of the cervical spine today. Patient continues with significant weakness and will need rehab upon discharge. Patient is maintained on vitamin and zinc supplements and was also being followed by cardiology. Adjustments to medications being done and patient is on oral Cardizem. Will follow-up with repeat labs. Patient is afebrile and denies shortness of breath. Patient clinically appears to be improving. Per nursing staff patient is incontinent of stool in continues to be somewhat loose although less frequent. C. diff testing was negative and stool cultures are negative. Encouraged oral intake. Will discuss with case management about discharge planning to ECF as he will require a Covid hub. 11/12/2022 Patient is seen and evaluated in follow-up today with multiple medical consultations following including infectious disease, cardiology, neurology. Patient's hemoglobin is low again at 6.8 and will give 1 unit. Recommend holding aspirin. Patient did have an elevated d-dimer and CTA was ordered. GI was also consulted for anemia. Patient continues to have incontinence of stool and loose stools and is maintained on Questran and will be given Imodium as needed. Patient continues with generalized weakness and fatigue and also having some lower extremity pain and swelling and have ordered Dopplers of bilateral lo wer extremities as well. Patient with Covid vitamin and zinc supplements and anticoagulation with subcu heparin. Hematology also following for anemia. Recommend repeat CBC this evening and will transfuse another unit as well. Cardiology following and adjustments to medications being made and patient also being started on low-dose diuretics. Patient is having low-grade temps of 99.3- 99.6 and patient continues to be 95% or above on room air. Blood pressure on the lower side although stable. Stool cultures and C. diff testing have been negative. Patient started on antibiotics per ID recommendations in the form of Zithromax and ceftriaxone. Reviewed iron studies which are low and will give IV iron as well. Electrolytes continue to be low and will replace per protocol. Patient will need ECF once stabilized and discharged 11/13/2022 Patient is seen today with multiple medical consultations following and undergoing neurological workup and having bilateral upper and lower extremity weakness. Neurology recommends orthopedic consultation which is currently pending. Patient did have some movement in his diarrhea and reports becoming more formed and less frequent. Patient continues to be incontinent of this. Patient being started on antibiotics with anxiety following an also continues to have anemia. GI recommending continuing with hematology workup. Multiple images including MRIs and pending at time. Patient with significant weakness will be going to rehab when stable. A.m. labs are pending. 11/24/2022 Patient is currently resting in the bed. Awake alert and oriented x3. No complaints of chest pain or shortness of breath. Left lower abdominal discomfort is improved. Hemoglobin is stable. Vascular surgery has seen the patient is planning for IVC filter placement. Heparin is on hold due to retroperitoneal bleed. Laboratory data showed WBC 25.6 hemoglobin 7.1 and platelets 159 sodium 131 potassium 5.7 chloride 112 bicarb is 37 creatinine 1.18 and calcium 7.0. Nephrology, ID and vascular surgery is on board. 11/25/2022 Patient is currently resting in bed. Awake alert and oriented x3. On room air. No complaints of chest pain or shortness of breath. No abdominal pain. No nausea vomiting abdominal pain or diarrhea. Patient is scheduled for IVC filter placement today. Otherwise hemoglobin level is 6.8 and 1 unit of PRBC was ordered. Other laboratory data showed WBC 20.6 hemoglobin 6.8 and platelets 149 sodium 135 potassium 5.4 chloride 101 bicarb is 23 BUN 34 and creatinine 1.25. Magnesium 1.6. Patient is being continued dexamethasone as per orthopedic surgery. Also on IV Lasix. Nephrology and general surgery is on board. Patient was given a dose of Lokelma yesterday. 11/26/2022 Patient is currently resting in bed. Awake alert and oriented x3. No complaints of back pain or abdominal pain. No nausea vomiting abdominal pain or diarrhea. No cough or sputum production. Currently on room air. Patient is status post IVC filter placement on 11/25/2022. Patient received 1 unit of PRBC yesterday and hemoglobin improved to 7.6 today. Level data showed WBC 22.3 hemoglobin 7.6 and platelets 141 sodium 136 potassium 5.3 chloride 101 bicarb is 23 BUN 32 and creatinine 1.23 and blood sugar is 125 and calcium 7.2. Magnesium 1.9. Follow-up CBC and BMP was ordered. Orthopedic surgery is planning for OR when medically stable tomorrow. 11/28/2022 Patient is seen and evaluated in follow-up and apparently orthopedics is scheduled for surgical intervention is patient is unstable. Recommending awaiting medical clearance. Infectious disease following and patient is being maintained and monitored closely of IV antibiotic therapy. Patient is status post Gran[place] filter placement any stable. No active bleeding noted. General surgery following for hematoma on the back with no surgical interventions planned. Patient with significant weakness recommend PT/OT therapy and will discuss with case management about discharge planning and ECF. Recommend follow-up labs in the a.m. she is currently afebrile denies chest pain or shortness of breath. He stable. No active bleeding noted. Patient is tolerating diet with no reports of nausea or vomiting noted. 11/29/2022 Patient was seen in follow-up this morning with orthopedics along with infectious disease, nephrology, general surgery, hematology following. Vital signs of been stable patient is continued on dexamethasone per orthopedics and will discuss about weaning parameters. Patient is also maintained off of antibiotics. Patient was significant weakness recommend PT/OT therapy and rehab on discharge. Patient continues to have elevated white blood count is infectious disease following and repeat inflammatory markers ordered. Patient is afebrile denies chest pain or shortness of breath. 11/30/2022 Patient is seen and evaluated in follow-up today with multiple medical consultations following. Hemoglobin was found to be critically low at 5.5 with a hematocrit of 17.6 and awaiting to receive 2 units of blood. Patient is status post IVC filter this admission as he was having anemia with acute on chronic DVT of the left proximal vein and also found to have a large intramuscular hematoma of the left iliac muscle, retroperitoneal hematoma. Gen. surgery services following as well. Patient also noted be having black tarry stools and will reconsult GI as we have services available tomorrow. Patient was having some abdominal discomfort and will obtain CT angiogram and evaluate for bleeding. Orthopedics following and were initially discussing surgical intervention of the lower spine although on hold as patient is not medically stable for surgical intervention at this time. Patient is maintained on IV dexamethasone and being weaned per orthopedics. Patient continues with significant weakness and bilateral foot drop and inability to ambulate and generalized edema noted throughout. Patient is maintained on oral Lasix and will give a dose of IV Lasix posttransfusion and follow-up with repeat labs this evening. Patient is afebrile denies chest pain or shortness of breath. Patient is frustrated and appears depressed. Patient denies any suicidal thoughts or wanting to harm himself or others. 12/01/2022 Patient is seen and evaluated in follow-up this morning hemoglobin post 2 units of packed red blood cells was 7.7. CT angiogram abdomen and pelvis was negative for any acute bleeding and GI was placed on consult with patient being scheduled for EGD/colonoscopy. Patient is afebrile denies chest pain or shortness of breath. Patient is tolerating diet with no reports of nausea vomiting noted. Orthopedics following as well and no plans for immediate interventions at this time until patient is more stable. No reports of chest pain or shortness of breath patient is sitting up in the bed on room air. Will follow-up with repeat labs. 12/02/2022 Patient is seen and evaluated this morning currently sitting up in the bed with family at the bedside. Patient was tentatively scheduled for EGD/colonoscopy although did not complete the prep still having formed brown stools continue with bowel prep and scheduled for EGD/colonoscopy in the a.m. Repeat labs reveal hemoglobin of 5.9 and will transfuse recommend follow-up labs. Patient is afebrile with no reports of nausea or vomiting noted. Patient denies chest pain or shortness of breath. Hematology following as well undergoing further workup for anemia. 12/03/2022 Patient is seen and evaluated in follow-up this morning currently nothing by mouth patient completed a bowel prep and initially per nursing staff had clear stools now continuing to have loose black sludgy stools 3 and C. diff ordered. Hemoglobin was found to be 6.9 and awaiting to receive 1 unit of PRBC. Plan is for EGD/colonoscopy with GI today. Patient is currently afebrile denies chest pain or shortness of breath. Patient is extremely anxious and persist to ask daily of when he can have his orthopedic interventions done. Discussed with orthopedic team and there are no plans for immediate surgical intervention during this admission. Patient with Significant weakness and recommend PT/OT therapy daily. Will resume diet once cleared by GI after endoscopic intervention. Recommend follow-up labs and will continue to monitor closely. 12/04/2022 Patient is seen this morning hemoglobin is 6.9 and per nursing staff has not had another bowel movement. Patient is currently undergoing a tagged RBC study with the capsule and pending report. Patient will be given a unit of PRBC and recommend repeat CBC in the evening. Multiple medical consultations following and continuing with bleeding workup. Denies chest pain or shortness of breath. Patient is afebrile and denies nausea or vomiting. Patient is tolerating diet. Patient reporting some insomnia and difficulty in sleeping will add Restoril as needed. Recommend close monitoring of vital signs and labs and will follow-up with the patient. 12/05/2022 Patient is currently resting in bed. Awake alert and oriented x3. On room air saturating 100%. Patient is status post capsule endoscopy. No active bleeding noted. No complaints of chest pain or worsening shortness of breath. No nausea vomiting. Patient did have an episode of diarrhea and is tested positive for C. difficile infection. Laboratory showed WBC 13.7 hemoglobin 7.5 and platelets 80 D-dimer is 3.72. Sodium 134 potassium 4.7 chloride 106 BUN 36 and creatinine 1.0 and magnesium 1.7. Patient was started on vancomycin. ID is on board. 12/06/2022 Patient is currently resting in the bed. Awake alert and oriented x3. No further results of GI bleed. Patient denies any diarrhea or bowel movement since yesterday. Capsule endoscopy camera not prescribed yet.. Patient is otherwise hemodynamically stable. Hemoglobin is 7.2 today. WBC 13.2, platelets 84 sodium 134 potassium 5.0 bicarb is 19.8 and patient was given a dose of bicarb by nephrology. BUN 30.4 and creatinine 1.1. Magnesium 1.7. Continued on p.o. vancomycin. 12/07/2022 Patient is seen and evaluated currently sitting up in the chair with multiple medical consultations following. Patient did have a capsule study done no further bleeding noted. Patient also had some diarrhea and fourth found to be C. diff positive with infectious disease following and patient has been started on oral Vanco and will continue. Patient continues with significant weakness with social work following and patient will require insurance authorization as patient has been accepted at [facility]. Patient is afebrile and denies chest pain or shortness of breath. Patient is also continued on Questran and reports to tolerating oral diet and reports improvement in his diarrhea. Recommend continue with Accu-Cheks before meals and at bedtime and will continue current regimen. Review of systems: Constitutional: No reports of fatigue, no fever, or chills Cardiovascular: No reports of chest pain or palpitations Respiratory: No reports of shortness of breath or cough GI: No reports of nausea, vomiting, reports improvement in diarrhea : No reports of dysuria or retention Neurovascular: reports of generalized weakness All medications have been reviewed Physical exam: Gen: This is a 62-year-old male awake, alert and oriented 3, well-developed, well-nourished, ill-appearing. Pale HEENT: Head is atraumatic, normocephalic. Pupils equal, round. Sclerae is anicteric. NECK: Supple. No JVD. No lymphadenopathy. No thyromegaly. LUNGS: Breath sounds diminished bilaterally with some scattered rhonchi noted. No intercostal retractions. HEART: S1, S2 are muffled, irregular ABDOMEN: Soft. Mildly tender on palpation. Bowel sounds are present. No masses. EXTREMITIES: No pedal edema. No calf tenderness. Lower extremity edema. Bilateral upper and lower extremity weakness generalized edema noted NEUROLOGICAL: Patient is awake, alert and oriented x3. Cranial nerves 2 through 12 are grossly intact. Diffusely weak Assessment: Acute blood loss anemia. hb 5.9 due to retroperitoneal bleed with hematoma. Hyperkalemia due to GI bleed. Improved. 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 Completed antibiotic course. Recent COVID-19 infection with pneumonia Acute hypoxic respiratory failure. Titrate down to room air.. Sepsis secondary to above, resolved Possible discitis as per MRI cervical spine. Hyperkalemia due to urinary retention and acute kidney injury. Improving now. Anemia with vitamin B12 deficiency and currently on IM B12 replacement therapy Elevated troponin, most likely type II. No chest pain, normal LV function Low vitamin B12 and B6 Nonocclusive thrombosis of the left leg status post Tali filter placement Paroxysmal atrial fibrillation no anticoagulation with score of 0 per Log Yard Manager DVT prophylaxis; SCDs No code Plan: Recommend to continue current medications and management with multiple medical consultations following. Hemoglobin 7.8 today and has received 9 total units during hospitalization. 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 diff and was positive maintained on oral Vanco with infectious disease following. Patient with significant weakness will require ECF and social work following and has submitted insurance authorization. [facility] the patient awaiting insurance authorization Will follow-up with repeat labs and continue to monitor closely Recommend PT/OT therapy. Patient continues with significant weakness with plantar ECF once stabilized Due to multiple complex medical issues, prognosis is extremely guarded Possible discharge in 24-48 hours The impression and plan of care has been dictated by Priscilla Steven, Nurse Practitioner as directed. Dr. Jovanny MD I have performed a history and examination and MDM of this patient, discussed the same with the dictator, and agree with the dictator's assessment and plan as written ,documented as a scribe. Based on total visit time, I have performed more than 50% of the visit. Objective - Vital Signs Vital signs: Vital Signs Temp 97.8 F 12/07/22 08:00 Pulse 68 12/07/22 08:00 Resp 16 12/07/22 08:00 BP 124/77 12/07/22 08:00 Pulse Ox 100 12/07/22 08:00 FiO2 Intake & Output 12/06/22 12/07/22 12/07/22 18:59 06:59 18:59 Intake Total 298 Output Total 1000 700 Balance -702 -700 Intake: Oral 298 Output: Urine 1000 700 Other: Voiding Method Bedpan Bedpan Diaper Diaper # Voids 1 # Bowel Movements 1 - Labs CBC & Chem 7: 12/07/22 05:34 12/07/22 05:34 Labs: Abnormal Lab Results - Last 24 Hours (Table) 12/06/22 12/06/22 12/06/22 Range/Units 06:22 06:22 12:37 WBC 13.21 H (4.50-10.00) X 10*3/uL RBC 2.36 L (4.40-5.60) X 10*6/uL Hgb 7.2 L (13.0-17.0) g/dL Hct 22.5 L (39.6-50.0) % MCV (80.0-97.0) fL MCHC (32.0-37.0) g/dL RDW 20.0 H (11.5-14.5) % Plt Count 84 L (140-440) X 10*3/uL Immature Gran # 0.11 H (0.00-0.04) X 10*3/uL Neutrophils # 11.71 H (1.80-7.70) X 10*3/uL Eosinophils # 0 L (0.04-0.35) X 10*3/uL Sodium 134 L (135-145) mmol/L Carbon Dioxide 19.8 L (20.0-27.5) mmol/L Anion Gap 8.10 L (10.00-18.00) mmol/L BUN 30.4 H (9.0-27.0) mg/dL BUN/Creatinine Ratio 27.64 H (12.00-20.00) Ratio Glucose 124 H (70-110) mg/dL POC Glucose (mg/dL) 118 H (70-110) mg/dL Calcium 7.6 L (8.7-10.3) mg/dL 12/06/22 12/06/22 12/07/22 Range/Units 17:06 20:06 05:34 WBC 12.40 H (4.50-10.00) X 10*3/uL RBC 2.53 L (4.40-5.60) X 10*6/uL Hgb 7.8 L (13.0-17.0) g/dL Hct 24.7 L (39.6-50.0) % MCV 97.6 H (80.0-97.0) fL MCHC 31.6 L (32.0-37.0) g/dL RDW 21.0 H (11.5-14.5) % Plt Count 87 L (140-440) X 10*3/uL Immature Gran # 0.12 H (0.00-0.04) X 10*3/uL Neutrophils # 10.82 H (1.80-7.70) X 10*3/uL Eosinophils # 0.01 L (0.04-0.35) X 10*3/uL Sodium (135-145) mmol/L Carbon Dioxide (20.0-27.5) mmol/L Anion Gap (10.00-18.00) mmol/L BUN (9.0-27.0) mg/dL BUN/Creatinine Ratio (12.00-20.00) Ratio Glucose (70-110) mg/dL POC Glucose (mg/dL) 140 H 170 H (70-110) mg/dL Calcium (8.7-10.3) mg/dL 12/07/22 12/07/22 12/07/22 Range/Units 05:34 05:49 10:02 WBC (4.50-10.00) X 10*3/uL RBC (4.40-5.60) X 10*6/uL Hgb (13.0-17.0) g/dL Hct (39.6-50.0) % MCV (80.0-97.0) fL MCHC (32.0-37.0) g/dL RDW (11.5-14.5) % Plt Count (140-440) X 10*3/uL Immature Gran # (0.00-0.04) X 10*3/uL Neutrophils # (1.80-7.70) X 10*3/uL Eosinophils # (0.04-0.35) X 10*3/uL Sodium 134 L (135-145) mmol/L Carbon Dioxide (20.0-27.5) mmol/L Anion Gap 2.90 L (10.00-18.00) mmol/L BUN 29.5 H (9.0-27.0) mg/dL BUN/Creatinine Ratio 26.82 H (12.00-20.00) Ratio Glucose (70-110) mg/dL POC Glucose (mg/dL) 129 H 124 H (70-110) mg/dL Calcium 7.7 L (8.7-10.3) mg/dL
[2022-12-07] MEDS: TAMSULOSIN 0.4 MG CAP.ER.24H PO SCH (16:06)
[2022-12-07 17:27] LABS: Glucose,Whole Blood 199 mg/dL (70-110)
[2022-12-07 20:44] LABS: Glucose,Whole Blood 185 mg/dL (70-110)
[2022-12-07] MEDS: TEMAZEPAM 7.5 MG CAP PO PRN (21:36)
[2022-12-08] MEDS: DEXAMETHASONE SOD PHOSPHATE 4 MG/ML 1 ML VIAL IVP SCH ×3 (00:34→15:42)
[2022-12-08] MEDS: LEVOTHYROXINE 50 MCG TAB PO SCH (06:43)
[2022-12-08 07:44] LABS: Glucose,Whole Blood 150 mg/dL (70-110)
[2022-12-08] MEDS: INSULIN ASPART (NovoLOG) 100 UNIT/ML VIAL SQ SCH ×2 (07:47→12:44)
[2022-12-08] MEDS: INSULIN DETEMIR (LEVEMIR) 100 UNIT/ML SYR SQ SCH (08:17)
[2022-12-08] MEDS: ASCORBIC ACID 500 MG TAB PO SCH (08:18)
[2022-12-08] MEDS: SODIUM BICARBONATE TAB 650 MG TAB PO SCH (08:18)
[2022-12-08] MEDS: THIAMINE 100 MG TAB PO SCH (08:18)
[2022-12-08] MEDS: MAGNESIUM OXIDE 400 MG TAB PO SCH (08:18)
[2022-12-08] MEDS: FOLIC ACID 1 MG TAB PO SCH (08:18)
[2022-12-08] MEDS: valACYclovir HCL 1,000 MG TABLET PO SCH (08:19)
[2022-12-08] MEDS: FUROSEMIDE 40 MG TAB PO SCH (08:19)
[2022-12-08] MEDS: PYRIDOXINE 50 MG TAB PO SCH (08:19)
[2022-12-08] MEDS: CYANOCOBALAMIN 500 MCG TAB PO SCH (08:19)
[2022-12-08] MEDS: CHOLECALCIFEROL 25 MCG (1000 IU) TABLET PO SCH (08:19)
[2022-12-08] MEDS: VANCOMYCIN 125 MG CAPSULE PO SCH ×2 (08:19→12:44)
[2022-12-08] MEDS: FLUoxetine HCL 20 MG CAP PO SCH (08:20)
[2022-12-08] MEDS: CALCIUM CARBONATE 500 MG CHEWABLE PO SCH ×2 (08:20→15:42)
[2022-12-08] MEDS: DILTIAZEM ORAL 30 MG TAB PO SCH ×2 (08:20→15:42)
[2022-12-08] MEDS: PANTOPRAZOLE 40 MG/10 ML VIAL IVP SCH (08:21)
[2022-12-08 10:51] LABS: Anisocytosis Moderate; Basophils % (A) 0 %; Eosinophils % (A) 0 %; HCT 24.2 % (39.0-53.0); HGB 7.7 gm/dL (13.0-17.5); Lymphocytes # (A) 0.7 k/uL (1.0-4.8); Lymphocytes % (A) 8 %; MCH 30.6 pg (25.0-35.0); MCHC 31.8 g/dL (31.0-37.0); MCV 96.3 fL (80.0-100.0); Macrocytosis Moderate; Mean Platelet Volume 9.8; Monocytes # (A) 0.3 k/uL (0-1.0); Monocytes % (A) 4 %; Neutrophils # (A) 7.4 k/uL (1.3-7.7); Neutrophils % (A) 87 %; Platelet Count 92 k/uL (150-450); RBC 2.51 m/uL (4.30-5.90); RDW 20.2 % (11.5-15.5); WBC 8.5 k/uL (3.8-10.6)
--- NOTE | 2022-12-08 11:26 | P.PN ---
Subjective Patient is seen in follow-up for acute kidney injury on chronic kidney disease. Renal function fairly stable as of yesterday. Hemoglobin 7.7 today. Status post capsule endoscopy without any evidence of active bleeding. Denies any active bleeding. Good urine output. Denies diarrhea. Hemodynamically stable. Vital signs are stable. General: No acute distress. HEENT: Head exam is unremarkable. LUNGS: Breath sounds decreased. HEART: Rate and Rhythm are regular. ABDOMEN: Soft, no distention. EXTREMITITES: 1+ edema. Objective - Vital Signs Vital signs: Vital Signs Temp 98.1 F 12/08/22 08:00 Pulse 75 12/08/22 08:00 Resp 18 12/08/22 08:00 BP 118/84 12/08/22 08:00 Pulse Ox 99 12/08/22 08:00 FiO2 Intake & Output 12/07/22 12/08/22 12/08/22 18:59 06:59 18:59 Intake Total 240 Output Total 1400 801 Balance -1400 -801 240 Intake: Oral 240 Output: Urine 1400 800 Stool 1 Other: Voiding Method External Catheter External Catheter External Catheter # Bowel Movements 2 1 - Labs CBC & Chem 7: 12/08/22 05:58 12/07/22 05:34 Labs: Abnormal Lab Results - Last 24 Hours (Table) 12/07/22 12/07/22 12/07/22 Range/Units 12:15 17:26 20:43 RBC (4.30-5.90) m/uL Hgb (13.0-17.5) gm/dL Hct (39.0-53.0) % RDW (11.5-15.5) % Plt Count (150-450) k/uL Lymphocytes # (1.0-4.8) k/uL POC Glucose (mg/dL) 116 H 199 H 185 H (70-110) mg/dL Ferritin (22.0-322.0) ng/mL 12/08/22 12/08/22 12/08/22 Range/Units 05:58 05:58 07:42 RBC 2.51 L (4.30-5.90) m/uL Hgb 7.7 L (13.0-17.5) gm/dL Hct 24.2 L (39.0-53.0) % RDW 20.2 H (11.5-15.5) % Plt Count 92 L (150-450) k/uL Lymphocytes # 0.7 L (1.0-4.8) k/uL POC Glucose (mg/dL) 150 H (70-110) mg/dL Ferritin 787.0 H (22.0-322.0) ng/mL Assessment and Plan Plan: Assessment: 1. Acute kidney injury mostly prerenal secondary to acute blood loss anemia and urinary retention. Creatinine fairly stable at 1.1 as of yesterday. Patient received IV contrast on 11/23/2022. 2. Chronic kidney disease stage II with baseline creatinine 1-1.1. 3. Urinary retention. Jo catheter removed 11/27/2022. On Flomax. 4. Lower extremity edema maintained on Lasix. Better. 5. Hyperkalemia secondary to GI bleed and acidosis. Improved. Potassium 4.8 yesterday. 6. GI bleed status post blood transfusions this admission. CAT scan showed large intramuscular hematoma. Underwent EGD and colonoscopy on 12/03/2022 which showed 1 cm nonbleeding mid esophageal ulcer and thick black stool in colon. Being followed by surgery and GI. 7. Metabolic acidosis secondary to acute kidney injury and GI losses maintained on oral bicarbonate. Improved. 8. Hypomagnesemia from diuresis. On oral magnesium oxide. 9. C. diff colitis on oral vancomycin. Denies diarrhea. Plan: Maintain Lasix. Monitor hemoglobin and transfuse as needed. Defer to primary and gi/surgery team. Avoid nephrotoxins. Check iron studies. Repeat labs in the morning.
[2022-12-08 12:26] LABS: Glucose,Whole Blood 157 mg/dL (70-110)
[2022-12-08 14:42] LABS: % Iron Saturation 31.6 (15.00-50.00)
--- NOTE | 2022-12-08 15:28 | P.DS ---
Providers Date of admission: 11/06/22 14:37 Expected date of discharge: 12/08/22 Attending physician: Derek Boswell MD Consults: 11/06/22 14:40 Consult Physician Routine Consulting Provider: Checo Menendez Consult Reason/Comments: COVID Do you want consulting provider notified?: Yes 11/08/22 12:28 Consult Physician Routine Consulting Provider: Shahbaz Obregon Consult Reason/Comments: anemia Do you want consulting provider notified?: Yes 11/09/22 12:43 Consult Physician Urgent Consulting Provider: Paul Blankenship Consult Reason/Comments: right side weakness, covid, afib Do you want consulting provider notified?: Yes 11/13/22 10:01 Consult Physician Routine Consulting Provider: Chi Starr Consult Reason/Comments: All 4 extremity weakness, abnormal cervical spine MRI Do you want consulting provider notified?: Yes 11/18/22 13:27 Consult Physician Urgent Consulting Provider: Alexia Knight Consult Reason/Comments: persistant hyperkalemia Do you want consulting provider notified?: Yes 12/01/22 06:00 Consult Physician Routine Consulting Provider: Nyla Lundberg Consult Reason/Comments: black tarry stools Do you want consulting provider notified?: Yes, Notify in am 12/04/22 15:52 Consult Physician Routine Consulting Provider: Chapin Santana Consult Reason/Comments: gi bleed, tagged rb study going on, no GI services Do you want consulting provider notified?: Yes Primary care physician: [facility] Course: Final diagnosis Acute blood loss anemia, due to retroperitoneal bleed with hematoma. Hyperkalemia due to GI bleed. Improved. 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 Completed antibiotic course. Recent COVID-19 infection with pneumonia Acute hypoxic respiratory failure. Titrate down to room air.. Sepsis secondary to above, resolved Possible discitis as per MRI cervical spine. Hyperkalemia due to urinary retention and acute kidney injury. Improving now. Anemia with vitamin B12 deficiency and currently on IM B12 replacement therapy Elevated troponin, most likely type II. No chest pain, normal LV function Low vitamin B12 and B6 Nonocclusive thrombosis of the left leg status post Tali filter placement Paroxysmal atrial fibrillation no anticoagulation with score of 0 per [employer] DVT prophylaxis; SCDs No code Discharge disposition Patient is being discharged in a stable condition with guarded prognosis to [facility]. Patient will follow-up with Dr. Munguia in the outpatient setting upon discharge. Patient is to follow-up with hematology, orthopedics, nephrology outpatient as scheduled. Total time taken is greater than 35 minutes. Hospital course This is a 62-year-old male who was recently admitted with Covid although has had significant prolonged hospitalization and is being followed with multiple medical consultations. Patient started with nausea vomiting and diarrhea progressively getting worse and was found to be COVID-19 positive. Patient also with many electrolyte abnormalities and was replaced. Patient also undergoing acute renal injury most likely dehydration and volume depletion maintained on gentle fluids also having some episodes of fluid overload and maintained on daily Lasix. Patient also developed extensive weakness in the upper and lower extremities and neurology workup was negative although consulted orthopedics for possible intervention. Patient was initially to undergo cervical intervention although patient unstable and not medically cleared. Patient will need outpatient follow-up with orthopedics once more stable. 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 Patient will continue Valtrex for 10 days to complete the course. Patient also after colonoscopy started developing loose stools and has been off and on of antibiotics during this admission and was tested positive for C. diff. Patient is maintained on oral Vanco per ID recommendations and will continue for 10 days to complete the course. Patient with chronic anemia and will be given an iron infusion prior to discharge and be started on iron tabs and recommend close outpatient follow-up with nephrology and hematology. Patient also developed a sub-cutaneous hematoma in the back and has received an IVC filter this admission. Hemoglobin today is stable at 7.7 with no further bleeding noted. Recommend to monitor Accu-Cheks before meals and at bedtime and continue sliding scale and long-acting. Recommend consistent carb diet. Patient was maintained on IV steroids and will continue a Medrol Dosepak to taper. Currently no reports of chest pain, shortness of breath, or palpitations. Patient is afebrile. No reports of nausea or vomiting and patient is tolerating diet. Patient will be going to [facility] today. Extremely guarded prognosis. Physical exam: Gen: This is a 62-year-old male who is awake, alert and oriented 3, well- developed, well-nourished, obese HEENT: Head is atraumatic, normocephalic. Pupils equal, round. Sclerae is anicteric. NECK: Supple. No JVD. No lymphadenopathy. No thyromegaly. LUNGS: Clear to auscultation. No wheezes or rhonchi. No intercostal retractions. HEART: Regular rate and rhythm. No murmur. ABDOMEN: Soft. Bowel sounds are present. No masses. No tenderness. EXTREMITIES: No pedal edema. No calf tenderness. Bilateral lower extremity weakness NEUROLOGICAL: Patient is awake, alert and oriented x3. Cranial nerves 2 through 12 are grossly intact. Diffusely weak Please refer to medication reconciliation sheet for a list of medications. The impression and plan of care has been dictated by Priscilla Steven, Nurse Practitioner as directed. Dr. Jovanny MD I have performed a history and examination and MDM of this patient, discussed the same with the dictator, and agree with the dictator's assessment and plan as written ,documented as a scribe. Based on total visit time, I have performed more than 50% of the visit. Patient Condition at Discharge: Fair Plan - Discharge Summary New Discharge Prescriptions: New Diltiazem Oral [Cardizem*] 30 mg PO TID tab Ferrous Sulfate [Feosol] 325 mg PO DAILY #30 tab Tamsulosin [Flomax] 0.4 mg PO PC-SUPPER cap Loperamide [Imodium] 2 mg PO QID PRN cap PRN Reason: Diarrhea Insulin Detemir (Levemir) [Levemir] 10 unit SQ DAILY@0700 each INSULIN ASPART (NovoLOG) [NovoLOG (formulary)] 0 unit SQ ACHS each valACYclovir HCL [Valtrex] 1,000 mg PO BID 10 Days #20 tab Vancomycin 125 mg PO QID 10 Days #40 cap Pyridoxine [Vitamin B-6] 50 mg PO DAILY tab Cholecalciferol [Vitamin D3 (25 Mcg = 1000 Iu)] 50 mcg PO DAILY tab Furosemide [Lasix] 40 mg PO DAILY tab methylPREDNISolone Dose Pack [Medrol Dose Pack] 4 mg PO DIRECTED #21 tab Pantoprazole Sodium [Protonix] 40 mg PO DAILY #30 tab Sodium Bicarbonate Tab 650 mg PO BID tab Acetaminophen Tab [Tylenol] 650 mg PO Q6HR PRN tab PRN Reason: Mild Pain Or Fever > 100.5 Cyanocobalamin [Vitamin B-12] 1,000 mcg PO DAILY tab Ascorbic Acid [Vitamin C] 500 mg PO BID tab Continue Magnesium Oxide [Magnesium] 500 mg PO DAILY Levothyroxine Sodium [Synthroid] 50 mcg PO DAILY FLUoxetine HCL [PROzac] 20 mg PO DAILY Diclofenac Sodium Gel [Voltaren Gel] 2 gm TOPICAL QID PRN PRN Reason: Pain Folic Acid 0.4 mg PO DAILY Calcium Carbonate [Calcium] 600 mg PO DAILY Thiamine [Vitamin B-1] 100 mg PO DAILY Discontinued Ergocalciferol (Vitamin D2) [Drisdol (50,000 Iu)] 1,250 mcg PO MOWE Ibuprofen [Motrin] 600 mg PO TID PRN PRN Reason: Pain Or Fever > 100.5 Discharge Medication List Calcium Carbonate [Calcium] 600 mg PO DAILY 09/09/22 [History] FLUoxetine HCL [PROzac] 20 mg PO DAILY 09/09/22 [History] Levothyroxine Sodium [Synthroid] 50 mcg PO DAILY 09/09/22 [History] Magnesium Oxide [Magnesium] 500 mg PO DAILY 09/09/22 [History] Diclofenac Sodium Gel [Voltaren Gel] 2 gm TOPICAL QID PRN 11/06/22 [History] Folic Acid 0.4 mg PO DAILY 11/06/22 [History] Thiamine [Vitamin B-1] 100 mg PO DAILY 11/06/22 [History] Acetaminophen Tab [Tylenol] 650 mg PO Q6HR PRN tab 12/08/22 [Rx] Ascorbic Acid [Vitamin C] 500 mg PO BID tab 12/08/22 [Rx] Cholecalciferol [Vitamin D3 (25 Mcg = 1000 Iu)] 50 mcg PO DAILY tab 12/08/22 [Rx] Cyanocobalamin [Vitamin B-12] 1,000 mcg PO DAILY tab 12/08/22 [Rx] Diltiazem Oral [Cardizem*] 30 mg PO TID tab 12/08/22 [Rx] Ferrous Sulfate [Feosol] 325 mg PO DAILY #30 tab 12/08/22 [Rx] Furosemide [Lasix] 40 mg PO DAILY tab 12/08/22 [Rx] INSULIN ASPART (NovoLOG) [NovoLOG (formulary)] 0 unit SQ ACHS each 12/08/22 [Rx] Insulin Detemir (Levemir) [Levemir] 10 unit SQ DAILY@0700 each 12/08/22 [Rx] Loperamide [Imodium] 2 mg PO QID PRN cap 12/08/22 [Rx] Pantoprazole Sodium [Protonix] 40 mg PO DAILY #30 tab 12/08/22 [Rx] Pyridoxine [Vitamin B-6] 50 mg PO DAILY tab 12/08/22 [Rx] Sodium Bicarbonate Tab 650 mg PO BID tab 12/08/22 [Rx] Tamsulosin [Flomax] 0.4 mg PO PC-SUPPER cap 12/08/22 [Rx] Vancomycin 125 mg PO QID 10 Days #40 cap 12/08/22 [Rx] methylPREDNISolone Dose Pack [Medrol Dose Pack] 4 mg PO DIRECTED #21 tab 12/08/22 [Rx] valACYclovir HCL [Valtrex] 1,000 mg PO BID 10 Days #20 tab 12/08/22 [Rx] Follow up Appointment(s)/Referral(s): Shahbaz Obregon MD [STAFF PHYSICIAN] - 12/17/22 1:15 pm (This appointment is that the office located at [address] [place] [address]) Ruben Munguia DO [Primary Care Provider] - 1-2 days Chi Starr DO [Doctor of Osteopathic Medicine] - 3 Weeks Activity/Diet/Wound Care/Special Instructions: Patient is going to [facility] Activity as tolerated Recommend monitoring Accu-Cheks before meals and at bedtime and continue current regimen with sliding scale and long-acting NovoLog sliding scale 0-150 equals 0 units 151-200 equals 2 units 201-250 equals 4 units 251-300 equals 6 units 301-350 equals 8 units 351-400 equals 10 units Please notify provider if blood sugar is 400 or above Recommend continue with consistent carb diet Patient was C. diff will continue on Vanco oral for the next 10 days Continue Valtrex as prescribed for the next 10 days Anticoagulation is currently on hold as patient did have most recent GI bleeding Recommend repeat labs of CBC and BMP in the next 2-3 days next line Patient will need outpatient follow-up with hematology/oncology Outpatient follow-up with orthopedics once more stable Copper supplement-take daily. 1st day take 4 caps, 2nd day take 3 caps, 3rd day take 2 caps and 4th day take one cap, then continue taking 1 cap daily Discharge Disposition: TRANSFER TO SNF/ECF
[2022-12-08 15:40] VITALS: PULSE 65
[2022-12-08] MEDS ORDERED: SODIUM FERRIC GLUCONAT-SUCROSE 125 MG in SODIUM CHLORIDE 0.9% 100 ML IVPB ONE (16:00)
[2022-12-08 16:12] VITALS: BP 108/75; RESP 16; TEMP 98.5
--- NOTE | 2022-12-08 20:13 | P.PN ---
Subjective Progress Note Date: 12/08/22 Principal diagnosis: Abnormal MRI questionable discitis Patient is a 62-year-old male who is unvaccinated for COVID-19 patient was brought into the ER for evaluation of weakness no energy mention the patient was not able to get stand up and go to the bathroom patient has been dealing with the diarrhea off and on for couple of weeks, patient was noticed to have a positive covid test, however the patient was not hypoxic and CT abdominal pelvis with few bibasilar patchy groundglass opacity representing atelectasis and no evidence of colitis. Patient did have a drop in his hemoglobin and underwent a CT angiogram that demonstrated a large intramuscular hematoma in the left iliac is muscle in the retroperitoneum. 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 On today's evaluation that is 12/08/2022, the patient denies any fever or any chills, the patient is breathing comfortably on room air, The patient denies chest pain, patient denies any cough or sputum production no nausea no vomiting no abdominal pain and the patient diarrhea has resolved Objective - Vital Signs Vital signs: Vital Signs Temp 98.1 F 12/08/22 08:00 Pulse 75 12/08/22 08:00 Resp 18 12/08/22 08:00 BP 118/84 12/08/22 08:00 Pulse Ox 99 12/08/22 08:00 FiO2 Intake & Output 12/07/22 12/08/22 12/08/22 18:59 06:59 18:59 Intake Total 240 Output Total 1400 801 Balance -1400 -801 240 Intake: Oral 240 Output: Urine 1400 800 Stool 1 Other: Voiding Method External Catheter External Catheter External Catheter # Bowel Movements 2 1 - Exam GENERAL DESCRIPTION: An elderly male lying in bed in no distress RESPIRATORY SYSTEM: Unlabored breathing , decreased breath sounds at bases HEART: S1 S2 regular rate and rhythm , ABDOMEN: Soft , no tenderness EXTREMITIES: No edema feet - Labs CBC & Chem 7: 12/08/22 05:58 12/07/22 05:34 Labs: Abnormal Lab Results - Last 24 Hours (Table) 12/07/22 12/07/2212/07/23 Range/Units 12:15 17:26 20:43 RBC (4.30-5.90) m/uL Hgb (13.0-17.5) gm/dL Hct (39.0-53.0) % RDW (11.5-15.5) % Plt Count (150-450) k/uL Lymphocytes # (1.0-4.8) k/uL POC Glucose (mg/dL) 116 H 199 H 185 H (70-110) mg/dL Ferritin (22.0-322.0) ng/mL 12/08/22 12/08/22 12/08/22 Range/Units 05:58 05:58 07:42 RBC 2.51 L (4.30-5.90) m/uL Hgb 7.7 L (13.0-17.5) gm/dL Hct 24.2 L (39.0-53.0) % RDW 20.2 H (11.5-15.5) % Plt Count 92 L (150-450) k/uL Lymphocytes # 0.7 L (1.0-4.8) k/uL POC Glucose (mg/dL) 150 H (70-110) mg/dL Ferritin 787.0 H (22.0-322.0) ng/mL Assessment and Plan (1) COVID-19 Status: Acute Priority: High Code(s): U07.1 - COVID-19 SNOMED Code(s): 180606939 Plan: 1 patient is status post EGD and colonoscopy with evidence of lower esophageal ulcer but nonbleeding or active source of bleeding in the colon , patient esophageal biopsy came back positive with herpes esophagitis, patient to continue oral Valtrex 1 g every 12 hours, which will be continued for another 10 days on discharge as the patient is immunocompetent 2-patient also have a positive stool for C. diff for the patient has been started on oral vancomycin , patient diarrhea has resolved he will continue with oral vancomycin to finish a ten-day course of therapy Discussed with the [employer]K CLERK before admitting team working on discharge Time with Patient: Less than 30
== END 2022-12-08 18:09 | DRG 177 ==
LOC: EC 11:48 → 4SSUR 14:37 → 3SCARD 11-08 05:03 → 6NMEDSUR 11-28 14:10
PROVIDERS: ADMIT Internal Medicine; ATTEND Internal Medicine
PROC: 30233N1 Transfusion of Nonautologous Red Blood Cells into Peripheral Vein, Percutaneous Approach (ICD-10-PCS; 2022-11-12)
PROC: 06H03DZ Insertion of Intraluminal Device into Inferior Vena Cava, Percutaneous Approach (ICD-10-PCS; principal; 2022-11-25 08:30)
PROC: 0DJD8ZZ Inspection of Lower Intestinal Tract, Via Natural or Artificial Opening Endoscopic (ICD-10-PCS; 2022-12-03)
PROC: 0DB58ZX Excision of Esophagus, Via Natural or Artificial Opening Endoscopic, Diagnostic (ICD-10-PCS; 2022-12-03 08:30)
DX: U07.1 COVID-19 (principal); A41.9 Sepsis, unspecified organism; I21.A1 Myocardial infarction type 2; J12.82 Pneumonia due to coronavirus disease 2019; J15.6 Pneumonia due to other Gram-negative bacteria; J96.01 Acute respiratory failure with hypoxia; K66.1 Hemoperitoneum; A04.72 Enterocolitis due to Clostridium difficile, not specified as recurrent; B00.89 Other herpesviral infection; D62 Acute posthemorrhagic anemia; E44.0 Moderate protein-calorie malnutrition; I82.4Z2 Acute embolism and thrombosis of unspecified deep veins of left distal lower extremity; K22.10 Ulcer of esophagus without bleeding; M46.26 Osteomyelitis of vertebra, lumbar region; N17.9 Acute kidney failure, unspecified; E87.1 Hypo-osmolality and hyponatremia; E87.20 Acidosis, unspecified; D63.8 Anemia in other chronic diseases classified elsewhere; E03.9 Hypothyroidism, unspecified; Z68.32 Body mass index [BMI] 32.0-32.9, adult; E66.9 Obesity, unspecified; F10.20 Alcohol dependence, uncomplicated; E83.51 Hypocalcemia; I34.0 Nonrheumatic mitral (valve) insufficiency; D51.9 Vitamin B12 deficiency anemia, unspecified; F32.A Depression, unspecified; F41.9 Anxiety disorder, unspecified; G47.00 Insomnia, unspecified; I45.10 Unspecified right bundle-branch block; Z53.09 Procedure and treatment not carried out because of other contraindication; M43.12 Spondylolisthesis, cervical region; M46.42 Discitis, unspecified, cervical region; G47.30 Sleep apnea, unspecified; I48.0 Paroxysmal atrial fibrillation; I49.3 Ventricular premature depolarization; K21.9 Gastro-esophageal reflux disease without esophagitis; M21.371 Foot drop, right foot; M21.372 Foot drop, left foot; M46.46 Discitis, unspecified, lumbar region; M47.9 Spondylosis, unspecified; M48.02 Spinal stenosis, cervical region; N18.2 Chronic kidney disease, stage 2 (mild); Z28.310 Unvaccinated for COVID-19; T50.1X5A Adverse effect of loop [high-ceiling] diuretics, initial encounter; E86.0 Dehydration; Z71.3 Dietary counseling and surveillance; Z98.84 Bariatric surgery status; E83.42 Hypomagnesemia; R15.9 Full incontinence of feces; R33.9 Retention of urine, unspecified; E53.1 Pyridoxine deficiency; E87.5 Hyperkalemia; E87.6 Hypokalemia; E87.70 Fluid overload, unspecified; Z78.9 Other specified health status; Z79.52 Long term (current) use of systemic steroids; Z79.890 Hormone replacement therapy; Z79.899 Other long term (current) drug therapy; Z86.718 Personal history of other venous thrombosis and embolism
CPT/HCPCS: 36415; 37191; 43239; 45378; 70450; 71045; 71275; 72126; 72141; 72146; 72148; 72156; 72157; 72158; 74174; 74176; 74177; 76770; 78278; 80048; 80053; 80074; 81001; 82272; 82330; 82525; 82550; 82607; 82668; 82728; 82746; 82747; 83010; 83540; 83550; 83605; 83615; 83690; 83735; 83883; 83921; 83970; 84132; 84145; 84165; 84207; 84425; 84443; 84481; 84484; 85025; 85027; 85045; 85379; 85384; 85610; 85613; 85652; 85730; 85732; 86022; 86140; 86146; 86147; 86334; 86850; 86900; 86901; 86920; 87040; 87045; 87046; 87324; 87502; 87635; 88305; 91110; 93005; 93306; 93970; 96361; 96365; 96366; 96375; 99285

== ENCOUNTER → 2024-04-04 | Outpatient (CLI) | payer OTHER ==
--- NOTE | 2024-04-04 15:10 | US ---
EXAMINATION TYPE: US kidneys/renal and bladder DATE OF EXAM: 04/04/2024 COMPARISON: CT 11/30/2022. CLINICAL INDICATION: Male, 64 years old with history of N17.9 ACUTE KIDNEY FAILURE; ASHA EXAM MEASUREMENTS: Right Kidney: 10.2 x 4.6 x 4.5 cm Left Kidney: 10.3 x 4.7 x 3.9 cm Technical limitations, patient unable to get on stretcher, scanned upright in wheelchair Right Kidney: limited evaluation no obvious hydronephrosis. Left Kidney: limited evaluation. possible dilated collecting system Bladder: appear wnl Bilateral Jets seen: no IMPRESSION: Suboptimal evaluation, possible left dilated collecting system. Which may represent a peripelvic ernesto l cyst seen on prior CT 11/30/2022.
== END | disposition home or self-care (01) ==
LOC: RADUSWWP 14:16
PROVIDERS: ATTEND Internal Medicine Nephrology
DX: N17.9 Acute kidney failure, unspecified (principal)
CPT/HCPCS: 76770

== ENCOUNTER → 2024-08-03 | Outpatient (CLI) | payer OTHER ==
--- NOTE | 2024-08-03 08:57 | CT ---
EXAMINATION TYPE: CT abdomen wo con DATE OF EXAM: 08/03/2024 COMPARISON: 11/30/2022, ultrasound 04/04/2024 HISTORY: hydronephrosis CT DLP: 839.3 mGycm Automated exposure control for dose reduction was used. TECHNIQUE: Helical acquisition of images was performed from the lung bases through the top of iliac crest to include entire abdomen. CONTRAST: Performed without Oral Contrast and without IV contrast. FINDINGS: LUNG BASES: Bibasilar subsegmental consolidation. Bilateral gynecomastia. Heart is enlarged with smal l pericardial effusion. The visualized descending aorta. LIVER/GB: Postcholecystectomy. Liver otherwise is homogeneous. PANCREAS: No significant abnormality is seen. SPLEEN: No significant abnormality is seen. ADRENALS: No significant abnormality is seen. KIDNEYS: Right kidney: No hydronephrosis or nephrolithiasis. Ureter is of normal caliber. Left kidney: No hydronephrosis or nephrolithiasis. Tiny subcentimeter exophytic density measuring 3 m m image 28 small characterize. Mild perinephric stranding bilaterally associated with chronic medical renal disease or infection. BOWEL: Post gastric surgery. Bowel gas pattern nonspecific. Additional surgery involving the anterio r abdominal wall and bowel with anastomotic sutures. LYMPH NODES: No significant abnormality is appreciated. OSSEOUS STRUCTURES: Multilevel hypertrophic and degenerative changes in spine. Chronic rib deformiti es. Generalized demineralization. SI joint arthropathy. FREE AIR: No free air is visualized. OTHER: IVC filter incidentally noted. No free fluid or free air. IMPRESSION: NO HYDRONEPHROSIS OR NEPHROLITHIASIS.
== END | disposition home or self-care (01) ==
LOC: RADCTMAIN 08:12
PROVIDERS: ATTEND Urology
DX: N28.1 Cyst of kidney, acquired
CPT/HCPCS: 74150

== ENCOUNTER 2024-08-29 12:35 | Inpatient (IN) | payer OTHER ==
--- NOTE | 2024-08-29 12:58 | ED ---
General Adult HPI - General Chief complaint: Recheck/Abnormal Lab/Rx Stated complaint: Hypotension Time Seen by Provider: 08/29/24 12:39 Source: patient, EMS, RN notes reviewed Mode of arrival: EMS Limitations: no limitations - History of Present Illness Initial comments: Patient is a 64-year-old male presenting to the emergency department with concern for low blood pressure and low blood sugar. Patient states he does have a history of low blood sugar previously and he has been told he was prediabetic. Patient admits to drinking 1/5 of alcohol, Daniel Arroyo yesterday. Patient is from a intermediate and states he used [employer] cart to get it. Patient is at intermediate secondary to chronic inability to walk secondary to chronic leg weakness - Related Data Home Medications Medication Instructions Recorded Confirmed Diclofenac Sodium Gel [Voltaren 1% 1 gm TOPICAL QID PRN 11/06/22 08/29/24 Gel] Acetaminophen [Tylenol Arthritis] 650 mg PO TID@0800,1400,199908/29/24 08/29/24 Calcium Carbonate/Vitamin D3 1 tab PO DAILY@0800 08/29/24 08/29/24 [Calcium 600 mg-Vit D3 5 mcg (200 unit)] Ergocalciferol [Vitamin D2 (1250 2,500 mcg PO FR@79908/29/24 08/29/24 Mcg = 41358 Iu)] FLUoxetine HCL [PROzac] 40 mg PO DAILY@0800 08/29/24 08/29/24 Famotidine [Pepcid] 20 mg PO DAILY@0800 08/29/24 08/29/24 Ferrous Sulfate [Feosol] 325 mg PO DAILY@0800 08/29/24 08/29/24 Folic Acid 1 mg PO DAILY@0800 08/29/24 08/29/24 Levothyroxine Sodium 125 mcg PO AC-BRKFST@0600 08/29/24 08/29/24 Magnesium Oxide [Magox 400] 400 mg PO DAILY@0800 08/29/24 08/29/24 Meclizine [Antivert] 12.5 mg PO BID PRN 08/29/24 08/29/24 Melatonin 10 mg PO HS@199908/29/24 08/29/24 Midodrine [ProAmatine] 15 mg PO TID@0800,1400,199908/29/24 08/29/24 Tamsulosin [Flomax] 0.4 mg PO HS@199908/29/24 08/29/24 Torsemide [Demadex] 20 mg PO DAILY@79908/29/24 08/29/24 allopurinoL 100 mg PO DAILY@0808/29/24 08/29/24 calcitrioL 0.25 mcg PO SA@0808/29/24 08/29/24 Previous Rx's Medication Instructions Recorded Loperamide [Imodium] 2 mg PO QID PRN cap 12/08/22 Allergies Allergy/AdvReac Type Severity Reaction Status Date / Time No Known Allergies Allergy Verified 08/29/24 14:07 Review of Systems ROS Statement: Those systems with pertinent positive or pertinent negative responses have been documented in the HPI. ROS Other: All systems not noted in ROS Statement are negative. Constitutional: Denies: fever Eyes: Denies: eye pain ENT: Denies: ear pain Respiratory: Denies: cough Cardiovascular: Denies: chest pain Endocrine: Denies: fatigue Gastrointestinal: Reports: nausea. Denies: abdominal pain, vomiting Neurological: Reports: as per HPI Past Medical History Past Medical History: Deep Vein Thrombosis (DVT), Sleep Apnea/CPAP/BIPAP, Thyroid Disorder Additional Past Medical History / Comment(s): thyroid issue. pt reports not using CPAP/BIPAP at HS History of Any Multi-Drug Resistant Organisms: None Reported Additional Past Surgical History / Comment(s): gastric bypass. Umbilical hernia, 6x hernia surgeries, fell & broke hip in 2019 - pt was in [facility] at the time and reports getting a pin in hip. Past Anesthesia/Blood Transfusion Reactions: No Reported Reaction Past Psychological History: Depression Smoking Status: Never smoker Past Alcohol Use History: Occasional Past Drug Use History: None Reported General Exam Limitations: no limitations General appearance: alert, in no apparent distress Head exam: Present: normocephalic Eye exam: Present: normal appearance, PERRL, EOMI ENT exam: Present: mucous membranes dry Neck exam: Present: normal inspection. Absent: tenderness, meningismus Respiratory exam: Present: normal lung sounds bilaterally Cardiovascular Exam: Present: regular rate, normal rhythm GI/Abdominal exam: Present: soft. Absent: tenderness Extremities exam: Present: normal inspection Neurological exam: Present: alert, oriented X3, CN II-XII intact Expanded Neurological exam: Present: protecting the airway Patient oriented to: Present: person, place, time Speech: Present: fluid speech Cranial nerves: EOM's Intact: Normal Motor strength exam: RUE: 5, LUE: 5, RLE: 4, LLE: 4 Eye Response: (4) open spontaneously Motor Response: (6) obeys commands Verbal Response: (5) oriented Psychiatric exam: Present: normal affect, normal mood Skin exam: Present: normal color Course Vital Signs 08/29/24 08/29/24 08/29/24 12:37 14:03 15:17 Temperature 97.8 F Pulse Rate 99 108 H Respiratory 16 18 Rate Blood Pressure 82/41 77/49 106/64 O2 Sat by Pulse 94 L 96 Oximetry EKG Findings - EKG Results: EKG: interpreted by SAVANNAH (Left axis. LVH criteria. right bundle branch block. Nonspecific ST-T), sinus rhythm Medical Decision Making - Medical Decision Making Was pt. sent in by a medical professional or institution (, PA, JERKER, urgent care, hospital, or chcf...) When possible be specific @ -Patient was sent in by intermediate Did you speak to anyone other than the patient for history (EMS, parent, family, police, friend...)? What history was obtained from this source @ -EMS helps provide history of patient presentation and transportation Did you review nursing and triage notes (agree or disagree)? Why? @ -I reviewed and agree with nursing and triage notes Were old charts reviewed (outside hosp., previous admission, EMS record, old EKG, old radiological studies, urgent care reports/EKG's, chcf records)? Report findings @ -No old charts were reviewed Differential Diagnosis (chest pain, altered mental status, abdominal pain women, abdominal pain men, vaginal bleeding, weakness, fever, dyspnea, syncope, headache, dizziness, GI bleed, back pain, seizure, CVA, palpatations, mental health, musculoskeletal)? @ -Differential Weakness: Hypoglycemia, shock, sepsis, hyponatremia, anemia, infection, MD, ETOH, adverse medicine reaction, overdose, stroke, this is not meant to be an all-inclusive list. EKG interpreted by me (3pts min.). @ -As above X-rays interpreted by me (1pt min.). @ -Chest x-ray shows cardiomegaly CT interpreted by me (1pt min.). @ -None done U/S interpreted by me (1pt. min.). @ -None done What testing was considered but not performed or refused? (CT, X-rays, U/S, labs)? Why? @ -None What meds were considered but not given or refused? Why? @ -None Did you discuss the management of the patient with other professionals (professionals i.e. DrJosselyn, PA, JERKER, lab, RT, psych nurse, social service agency director, farm boss, teacher, hotel security officer, case fitter)? Give summary @ -Case was discussed with Dr. Andrade who will admit covering hospital Was smoking cessation discussed for >3mins.? @ -No Was critical care preformed (if so, how long)? @ -31 minutes critical care Were there social determinants of health that impacted care today? How? (Homelessness, low income, unemployed, alcoholism, drug addiction, transportation, low edu. Level, literacy, decrease access to med. care, group home, rehab)? @ -No Was there de-escalation of care discussed even if they declined (Discuss DNR or withdrawal of care, Hospice)? DNR status @ -No What co-morbidities impacted this encounter? (DM, HTN, Smoking, COPD, CAD, Cancer, CVA, ARF, Chemo, Hep., AIDS, mental health diagnosis, sleep apnea, morbid obesity)? @ -Patient is unable to ambulate normally Was patient admitted / discharged? Hospital course, mention meds given and route, prescriptions, significant lab abnormalities, going to OR and other pertinent info. @ -Patient presents with increased weakness and recent large alcohol intake. Patient presents with ASHA and continued alcohol intoxication. Patient reevaluated . blood pressure has improved with fluids. Patient will be admitted. Admission orders written. Undiagnosed new problem with uncertain prognosis? @ -No Drug Therapy requiring intensive monitoring for toxicity (Heparin, Nitro, Insulin, Cardizem)? @ -No Were any procedures done? @ -No Diagnosis/symptom? @ -Acute kidney injury, alcohol intoxication, hypotension/resolved Acute, or Chronic, or Acute on Chronic? @ -Acute, acute, acute Uncomplicated (without systemic symptoms) or Complicated (systemic symptoms)? @ -Default Side effects of treatment? @ -No Exacerbation, Progression, or Severe Exacerbation? @ -No Poses a threat to life or bodily function? How? (Chest pain, USA, MD, pneumonia, PE, COPD, DKA, ARF, appy, cholecystitis, CVA, Diverticulitis, Homicidal, Suicidal, threat to staff... and all critical care pts) @ -Threat to renal function - Lab Data Result diagrams: 08/29/24 12:51 08/29/24 12:51 Lab Results 08/29/24 08/29/24 08/29/24 Range/Units 12:51 12:51 12:51 WBC 11.3 H (3.8-10.6) k/uL RBC 3.71 L (4.30-5.90) m/uL Hgb 11.9 L (13.0-17.5) gm/dL Hct 40.0 (39.0-53.0) % MCV 107.7 H (80.0-100.0) fL MCH 31.9 (25.0-35.0) pg MCHC 29.7 L (31.0-37.0) g/dL RDW 13.6 (11.5-15.5) % Plt Count 279 (150-450) k/uL MPV 7.9 Neutrophils % 81 % Lymphocytes % 16 % Monocytes % 2 % Eosinophils % 0 % Basophils % 0 % Neutrophils # 9.2 H (1.3-7.7) k/uL Lymphocytes # 1.8 (1.0-4.8) k/uL Monocytes # 0.3 (0-1.0) k/uL Eosinophils # 0.0 (0-0.7) k/uL Basophils # 0.0 (0-0.2) k/uL Hypochromasia Marked Macrocytosis Moderate PT 9.8 L (10.0-12.5) sec INR 0.9 (<1.2) APTT 23.7 (22.0-30.0) sec Sodium 141 (137-145) mmol/L Potassium 3.7 (3.5-5.1) mmol/L Chloride 109 H (98-107) mmol/L Carbon Dioxide 5 L* (22-30) mmol/L Anion Gap 27 mmol/L BUN 48 H (9-20) mg/dL Creatinine 2.73 H (0.66-1.25) mg/dL Est GFR (CKD-EPI)AfAm 27 (>60 ml/min/1.73 sqM) Est GFR (CKD-EPI)NonAf 24 (>60 ml/min/1.73 sqM) Glucose 37 L* (74-99) mg/dL Plasma Lactic Acid Kip (0.7-2.0) mmol/L Calcium 8.1 L (8.4-10.2) mg/dL Magnesium 1.8 (1.6-2.3) mg/dL Total Bilirubin 0.3 (0.2-1.3) mg/dL AST 19 (17-59) U/L ALT 9 (4-49) U/L Alkaline Phosphatase 104 (38-126) U/L Troponin I (0.000-0.034) ng/mL Total Protein 5.5 L (6.3-8.2) g/dL Albumin 3.3 L (3.5-5.0) g/dL Urine Color Urine Appearance (Clear) Urine pH (5.0-8.0) Ur Specific [place] (1.001-1.035) Urine Protein (Negative) Urine Glucose (UA) (Negative) Urine Ketones (Negative) Urine Blood (Negative) Urine Nitrite (Negative) Urine Bilirubin (Negative) Urine Urobilinogen (<2.0) mg/dL Ur Leukocyte Esterase (Negative) Urine RBC (0-5) /hpf Urine WBC (0-5) /hpf Urine Bacteria (None) /hpf Hyaline Casts (0-2) /lpf Urine Mucus (None) /hpf Serum Alcohol mg/dL 08/29/24 08/29/24 08/29/24 Range/Units 12:51 12:51 14:04 WBC (3.8-10.6) k/uL RBC (4.30-5.90) m/uL Hgb (13.0-17.5) gm/dL Hct (39.0-53.0) % MCV (80.0-100.0) fL MCH (25.0-35.0) pg MCHC (31.0-37.0) g/dL RDW (11.5-15.5) % Plt Count (150-450) k/uL MPV Neutrophils % % Lymphocytes % % Monocytes % % Eosinophils % % Basophils % % Neutrophils # (1.3-7.7) k/uL Lymphocytes # (1.0-4.8) k/uL Monocytes # (0-1.0) k/uL Eosinophils # (0-0.7) k/uL Basophils # (0-0.2) k/uL Hypochromasia Macrocytosis PT (10.0-12.5) sec INR (<1.2) APTT (22.0-30.0) sec Sodium (137-145) mmol/L Potassium (3.5-5.1) mmol/L Chloride (98-107) mmol/L Carbon Dioxide (22-30) mmol/L Anion Gap mmol/L BUN (9-20) mg/dL Creatinine (0.66-1.25) mg/dL Est GFR (CKD-EPI)AfAm (>60 ml/min/1.73 sqM) Est GFR (CKD-EPI)NonAf (>60 ml/min/1.73 sqM) Glucose (74-99) mg/dL Plasma Lactic Acid Kip 5.5 H* (0.7-2.0) mmol/L Calcium (8.4-10.2) mg/dL Magnesium (1.6-2.3) mg/dL Total Bilirubin (0.2-1.3) mg/dL AST (17-59) U/L ALT (4-49) U/L Alkaline Phosphatase (38-126) U/L Troponin I <0.012 (0.000-0.034) ng/mL Total Protein (6.3-8.2) g/dL Albumin (3.5-5.0) g/dL Urine Color Colorless Urine Appearance Clear (Clear) Urine pH 5.0 (5.0-8.0) Ur Specific [place] 1.012 (1.001-1.035) Urine Protein Trace H (Negative) Urine Glucose (UA) Negative (Negative) Urine Ketones Negative (Negative) Urine Blood Trace H (Negative) Urine Nitrite Negative (Negative) Urine Bilirubin Negative (Negative) Urine Urobilinogen <2.0 (<2.0) mg/dL Ur Leukocyte Esterase Large H (Negative) Urine RBC 1 (0-5) /hpf Urine WBC 10 H (0-5) /hpf Urine Bacteria Rare H (None) /hpf Hyaline Casts 1 (0-2) /lpf Urine Mucus Rare H (None) /hpf Serum Alcohol mg/dL 10/01/24 Range/Units 14:04 WBC (3.8-10.6) k/uL RBC (4.30-5.90) m/uL Hgb (13.0-17.5) gm/dL Hct (39.0-53.0) % MCV (80.0-100.0) fL MCH (25.0-35.0) pg MCHC (31.0-37.0) g/dL RDW (11.5-15.5) % Plt Count (150-450) k/uL MPV Neutrophils % % Lymphocytes % % Monocytes % % Eosinophils % % Basophils % % Neutrophils # (1.3-7.7) k/uL Lymphocytes # (1.0-4.8) k/uL Monocytes # (0-1.0) k/uL Eosinophils # (0-0.7) k/uL Basophils # (0-0.2) k/uL Hypochromasia Macrocytosis PT (10.0-12.5) sec INR (<1.2) APTT (22.0-30.0) sec Sodium (137-145) mmol/L Potassium (3.5-5.1) mmol/L Chloride (98-107) mmol/L Carbon Dioxide (22-30) mmol/L Anion Gap mmol/L BUN (9-20) mg/dL Creatinine (0.66-1.25) mg/dL Est GFR (CKD-EPI)AfAm (>60 ml/min/1.73 sqM) Est GFR (CKD-EPI)NonAf (>60 ml/min/1.73 sqM) Glucose (74-99) mg/dL Plasma Lactic Acid Kip (0.7-2.0) mmol/L Calcium (8.4-10.2) mg/dL Magnesium (1.6-2.3) mg/dL Total Bilirubin (0.2-1.3) mg/dL AST (17-59) U/L ALT (4-49) U/L Alkaline Phosphatase (38-126) U/L Troponin I (0.000-0.034) ng/mL Total Protein (6.3-8.2) g/dL Albumin (3.5-5.0) g/dL Urine Color Urine Appearance (Clear) Urine pH (5.0-8.0) Ur Specific [place] (1.001-1.035) Urine Protein (Negative) Urine Glucose (UA) (Negative) Urine Ketones (Negative) Urine Blood (Negative) Urine Nitrite (Negative) Urine Bilirubin (Negative) Urine Urobilinogen (<2.0) mg/dL Ur Leukocyte Esterase (Negative) Urine RBC (0-5) /hpf Urine WBC (0-5) /hpf Urine Bacteria (None) /hpf Hyaline Casts (0-2) /lpf Urine Mucus (None) /hpf Serum Alcohol 193 mg/dL Critical Care Time Critical Care Time: Yes Disposition Clinical Impression: Acute kidney injury Disposition: ADMITTED IP TO THIS HOSP Is patient prescribed a controlled substance at d/c from ED?: No Referrals: None,Stated [Primary Care Provider] - 1-2 days Time of Disposition: 15:29
[2024-08-29 13:01] LABS: Basophils % (A) 0 %; Eosinophils % (A) 0 %; HGB 11.9 gm/dL (13.0-17.5); Hypochromasia Marked; Lymphocytes # (A) 1.8 k/uL (1.0-4.8); Lymphocytes % (A) 16 %; MCH 31.9 pg (25.0-35.0); MCHC 29.7 g/dL (31.0-37.0); MCV 107.7 fL (80.0-100.0); Macrocytosis Moderate; Mean Platelet Volume 7.9; Monocytes # (A) 0.3 k/uL (0-1.0); Monocytes % (A) 2 %; Neutrophils # (A) 9.2 k/uL (1.3-7.7); Neutrophils % (A) 81 %; Platelet Count 279 k/uL (150-450); RBC 3.71 m/uL (4.30-5.90); RDW 13.6 % (11.5-15.5); WBC 11.3 k/uL (3.8-10.6)
[2024-08-29] MEDS: DEXTROSE 50% SYRINGE 50 ML IVP STA (13:06)
[2024-08-29] MEDS: ONDANSETRON 4 MG/2 ML VIAL IVP STA (13:07)
[2024-08-29] MEDS: SODIUM CHLORIDE 0.9% 1,000 ML IV STA ×2 (13:08→14:17)
[2024-08-29] MEDS: FAMOTIDINE 20 MG/2 ML VIAL IV STA (13:08)
[2024-08-29 13:17] LABS: INR 0.9 (<1.2); Partial Thromboplastin Time 23.7 sec (22.0-30.0); Prothrombin Time 9.8 sec (10.0-12.5)
[2024-08-29 13:22] LABS: African American GFR (CKD) 27 (>60 ml/min/1.73 sqM); Albumin 3.3 g/dL (3.5-5.0); Anion Gap 27 mmol/L; Blood Urea Nitrogen 48 mg/dL (9-20); Calcium 8.1 mg/dL (8.4-10.2); Chloride 109 mmol/L (98-107); Magnesium 1.8 mg/dL (1.6-2.3); Non-African American GFR(CKD) 24 (>60 ml/min/1.73 sqM); Potassium 3.7 mmol/L (3.5-5.1); Sodium 141 mmol/L (137-145); Total Bilirubin 0.3 mg/dL (0.2-1.3); Total Protein 5.5 g/dL (6.3-8.2)
[2024-08-29 13:23] LABS: ALT 9 U/L (4-49); AST 19 U/L (17-59); Alkaline Phosphatase 104 U/L (38-126)
--- NOTE | 2024-08-29 13:49 | XR ---
EXAMINATION TYPE: XR chest 2V DATE OF EXAM: 08/29/2024 1:41 PM COMPARISON: Chest radiographs from 11/12/2022, CTA chest 11/12/2022 TECHNIQUE: XR chest 2V Frontal and lateral views of the chest. CLINICAL INDICATION:Male, 64 years old with history of Weakness; FINDINGS: Lungs/Pleura: There is no evidence of pleural effusion, focal consolidation, or pneumothorax. Pulmonary vascularity: Mild pulmonary vascular congestion. Heart/mediastinum: Cardiomediastinal silhouette is enlarged and stable. Musculoskeletal: No acute osseous pathology. Dextrocurvature of the thoracic spine. IMPRESSION: Cardiomegaly and mild pulmonary vascular congestion. Correlate with BNP for congestive heart failure. [facility], , 08/29/2024 1:47 PM
[2024-08-29 14:13] LABS: Glucose 37 mg/dL (74-99)
[2024-08-29 14:14] LABS: Carbon Dioxide 5 mmol/L (22-30)
[2024-08-29 14:17] LABS: Appearance,Urine Clear (Clear); Bacteria,Urine Rare /hpf; Bilirubin,Urine Negative (Negative); Blood,Urine Trace (Negative); Color,Urine Colorless; Glucose,Urine (UA) Negative (Negative); Hyaline Casts,Urine 1 /lpf (0-2); Ketones,Urine Negative (Negative); Leukocyte Esterase,Urine Large (Negative); Mucus,Urine Rare /hpf; Nitrite,Urine Negative (Negative); Protein,Urine Trace (Negative); RBC,Urine 1 /hpf (0-5); Specific Gravity,Urine 1.012 (1.001-1.035); Urobilinogen,Urine <2.0 mg/dL (<2.0); WBC,Urine 10 /hpf (0-5)
[2024-08-29] MEDS ORDERED: ACETAMINOPHEN TAB 325 MG TAB PO PRN (15:30)
[2024-08-29] MEDS ORDERED: ONDANSETRON 4 MG/2 ML VIAL IVP PRN (15:30)
[2024-08-29] MEDS ORDERED: NALOXONE 0.4 MG/ML 1 ML VIAL IV PRN (15:30)
[2024-08-29] MEDS ORDERED: LOPERAMIDE 2 MG CAP PO PRN (15:32)
[2024-08-29] MEDS ORDERED: MECLIZINE 12.5 MG TAB PO PRN (15:32)
[2024-08-29] MEDS: SODIUM CHLORIDE 0.9% 1,000 ML IV SCH (15:49)
[2024-08-29] MEDS: SODIUM BICARB 8.4% 50 ML SYR (1 MEQ/ML) IV STA (15:50)
[2024-08-29] MEDS ORDERED: LORazepam 2 MG/ML INJ IV PRN ×3 (16:53)
[2024-08-29] MEDS: LACTATED RINGERS 1,000 ML IV SCH (17:48)
--- NOTE | 2024-08-29 17:49 | P.HPIM ---
History of Present Illness H&P Date: 08/29/24 History of present illness; Stanislav Michel 64-year-old male with CKD stage III, Buerger's disease, BPH, hypothyroidism, GERD, gout, depression presents with dysuria. Patient reports during the last 24 hours he has not urinated or had bowel movement. He reported no symptoms prior to this time with no previous occurrences. He denies painful or bloody urination. He reports regular daily dietary intake. Also yesterday he attest to 24 ounces of alcohol intake. Currently, he denies fever, chills, chest pain, palpitations, shortness of breath, cough, nausea, vomiting, abdominal pain, weakness, lightheadedness, and headache. Initial lab work done in the ER showed WBC 11.3, hemoglobin 11.9, MCV 107.7, platelets 79, PT 9.8, sodium 141, potassium 3.7, chloride 109, bicarb 5, anion gap 27, BUN 48, creatinine 2.73, glucose 37, calcium 8.1, magnesium 1.8, lactic acid 5.5, negative troponin 1X. Urinalysis with trace protein and ketones, large leukocyte Estrace and WBC and rare bacteria. Chest x-ray done independently interpreted in the ER showed cardiomegaly and mild pulmonary vascular congestion. Patient admitted to internal medicine service REVIEW OF SYSTEMS: All Systems reviewed, pertinent positives and negatives noted in HPI. All other symptoms are negative. The rest of the 14-point review of systems is negative. PHYSICAL EXAMINATION: Vitals reviewed GENERAL: The patient is alert and oriented x3, not in any acute distress. Well developed, well nourished. HEENT: Dry mucous membranes. Pupils are round and equally reacting to light. EOMI. No scleral icterus. No conjunctival pallor. Normocephalic, atraumatic. No pharyngeal erythema. No thyromegaly. CARDIOVASCULAR: S1 and S2 present. No murmurs, rubs, or gallops. PULMONARY: Chest is clear to auscultation, no wheezing or crackles. ABDOMEN: Soft, nontender, nondistended, normoactive bowel sounds. No palpable o rganomegaly. MUSCULOSKELETAL: joint swelling and deformities in hands and feet EXTREMITIES: No apparent cyanosis, clubbing, or pedal edema. NEUROLOGICAL: Gross neurological examination did not reveal any focal deficits. SKIN: Bilateral legs with erythema and dermatitis Labs reviewed Imaging reviewed Assessment and plan Stanislav Michel 64-year-old male with CKD stage III, Buerger's disease, BPH, hypothyroidism, GERD, gout, depression presents with dysuria. # Prerenal anuric ASHA with CKD stage III Creatinine 2.73, last known 1.02 January 2023 Given 2 L of NS Continue LR at 150 mL/h Monitor BMP #UTI #Leukocytosis -Patient complaining of dysuria UA positive leukocyte esterase Ordered urine culture IV fluid as above Begin ceftriaxone 1 g daily #Alcohol intoxication Alcohol dependence, impending alcohol withdrawal #Macrocytic anemia Serum alcohol 193 Hemoglobin 11.9, MCV 107.7 Begin CIWA protocol with Ativan IV, monitor for sedation IV fluid as above Thiamine 100 mg daily #Hypoglycemia Initial glucose 37 Given D5W 50 mL Begin Accu-Cheks, every 6 hours #Anion gap metabolic acidosis with non-anion gap metabolic acidosis Lactic acidosis Bicarb 5, anion gap 27 Given sodium bicarb 50 mL Ordered VBG -Should correct with IV fluids -Monitor on telemetry Chronic Medical Conditions continue home meds #CKD stage III, Buerger's disease #BPH #Hypothyroidism #GERD #Gout #Depression F: IV LR at 150 mL/h E: Replete as needed N: Heart healthy diet E: None DVT ppx: Subq Lovenox Code status: Full code Anticipated discharge place: Pending clinical course Anticipated discharge time: Pending clinical course Monitor vital signs, CBC, CMP Continue telemetry monitoring Continue with symptomatic treatment. Resume home medication. GI prophylaxis as needed. Further recommendations as per clinical course of the patient Dictation was produced using [email or web address] dictation software. Please excuse any grammatical, word or spelling errors. The patient is admitted with an anticipated greater than 2 midnight stay as inpatient status for evaluation of dehydration. A total of 65 minutes was spent on the care of this complex patient more than 50% of the time was spent in counseling and care coordination. I have seen and evaluated the patient today. Discussed with the resident and agree with the residents finding and plan as documented in the resident's note. Changes highlighted in blue font. Past Medical History Past Medical History: Deep Vein Thrombosis (DVT), Sleep Apnea/CPAP/BIPAP, Thyroid Disorder Additional Past Medical History / Comment(s): thyroid issue. pt reports not usi ng CPAP/BIPAP at HS History of Any Multi-Drug Resistant Organisms: None Reported Additional Past Surgical History / Comment(s): gastric bypass. Umbilical hernia, 6x hernia surgeries, fell & broke hip in 2019 - pt was in [facility] at the time and reports getting a pin in hip. Past Anesthesia/Blood Transfusion Reactions: No Reported Reaction Past Psychological History: Depression Smoking Status: Never smoker Past Alcohol Use History: Occasional Past Drug Use History: None Reported Medications and Allergies Home Medications Medication Instructions Recorded Confirmed Type Diclofenac Sodium Gel [Voltaren 1% 1 gm TOPICAL QID PRN 11/06/22 08/29/24 History Gel] Loperamide [Imodium] 2 mg PO QID PRN cap 12/08/22 08/29/24 Rx Acetaminophen [Tylenol Arthritis] 650 mg PO TID@0800,1400,199908/29/24 08/29/24 History Calcium Carbonate/Vitamin D3 1 tab PO DAILY@0800 08/29/24 08/29/24 History [Calcium 600 mg-Vit D3 5 mcg (200 unit)] Ergocalciferol [Vitamin D2 (1250 2,500 mcg PO FR@0808/29/24 08/29/24 History Mcg = 17274 Iu)] FLUoxetine HCL [PROzac] 40 mg PO DAILY@0800 08/29/24 08/29/24 History Famotidine [Pepcid] 20 mg PO DAILY@0800 08/29/24 08/29/24 History Ferrous Sulfate [Feosol] 325 mg PO DAILY@0800 08/29/24 08/29/24 History Folic Acid 1 mg PO DAILY@0800 08/29/24 08/29/24 History Levothyroxine Sodium 125 mcg PO AC-BRKFST@0600 08/29/24 08/29/24 History Magnesium Oxide [Magox 400] 400 mg PO DAILY@0800 08/29/24 08/29/24 History Meclizine [Antivert] 12.5 mg PO BID PRN 08/29/24 08/29/24 History Melatonin 10 mg PO HS@199908/29/24 08/29/24 History Midodrine [ProAmatine] 15 mg PO TID@0800,1400,199908/29/24 08/29/24 History Tamsulosin [Flomax] 0.4 mg PO HS@199908/29/24 08/29/24 History Torsemide [Demadex] 20 mg PO DAILY@0800 08/29/24 08/29/24 History allopurinoL 100 mg PO DAILY@79908/29/24 08/29/24 History calcitrioL 0.25 mcg PO SA@0808/29/24 08/29/24 History Allergies Allergy/AdvReac Type Severity Reaction Status Date / Time No Known Allergies Allergy Verified 08/29/24 14:07 Physical Exam Vitals: Vital Signs Temp Pulse Resp BP Pulse Ox 08/29/24 15:17 108 H 18 106/64 96 08/29/24 14:03 77/49 08/29/24 12:37 97.8 F 99 16 82/41 94 L Intake and Output 08/29/24 08/29/24 08/29/24 06:59 14:59 22:59 Other: Weight 103.873 kg Results CBC & Chem 7: 08/29/24 12:51 08/29/24 12:51 Labs: Abnormal Lab Results - Last 24 Hours (Table) 08/29/24 08/29/24 08/29/24 Range/Units 12:51 12:51 12:51 WBC 11.3 H (3.8-10.6) k/uL RBC 3.71 L (4.30-5.90) m/uL Hgb 11.9 L (13.0-17.5) gm/dL MCV 107.7 H (80.0-100.0) fL MCHC 29.7 L (31.0-37.0) g/dL Neutrophils # 9.2 H (1.3-7.7) k/uL PT 9.8 L (10.0-12.5) sec Chloride 109 H (98-107) mmol/L Carbon Dioxide 5 L* (22-30) mmol/L BUN 48 H (9-20) mg/dL Creatinine 2.73 H (0.66-1.25) mg/dL Glucose 37 L* (74-99) mg/dL Plasma Lactic Acid Kip (0.7-2.0) mmol/L Calcium 8.1 L (8.4-10.2) mg/dL Total Protein 5.5 L (6.3-8.2) g/dL Albumin 3.3 L (3.5-5.0) g/dL Urine Protein (Negative) Urine Blood (Negative) Ur Leukocyte Esterase (Negative) Urine WBC (0-5) /hpf Urine Bacteria (None) /hpf Urine Mucus (None) /hpf 08/29/24 08/29/24 08/29/24 Range/Units 12:51 14:04 16:21 WBC (3.8-10.6) k/uL RBC (4.30-5.90) m/uL Hgb (13.0-17.5) gm/dL MCV (80.0-100.0) fL MCHC (31.0-37.0) g/dL Neutrophils # (1.3-7.7) k/uL PT (10.0-12.5) sec Chloride (98-107) mmol/L Carbon Dioxide (22-30) mmol/L BUN (9-20) mg/dL Creatinine (0.66-1.25) mg/dL Glucose (74-99) mg/dL Plasma Lactic Acid Kip 5.5 H* 7.2 H* (0.7-2.0) mmol/L Calcium (8.4-10.2) mg/dL Total Protein (6.3-8.2) g/dL Albumin (3.5-5.0) g/dL Urine Protein Trace H (Negative) Urine Blood Trace H (Negative) Ur Leukocyte Esterase Large H (Negative) Urine WBC 10 H (0-5) /hpf Urine Bacteria Rare H (None) /hpf Urine Mucus Rare H (None) /hpf
[2024-08-29] MEDS: THIAMINE 100 MG/ML 2 ML VIAL IM STA (18:33)
[2024-08-29] MEDS: MELATONIN 5 MG TABLET PO SCH (19:20)
[2024-08-29] MEDS: TAMSULOSIN 0.4 MG CAP.ER.24H PO SCH (19:20)
[2024-08-29] MEDS: MIDODRINE 5 MG TAB PO SCH (19:21)
[2024-08-29 20:05] LABS: VBG PH 7.24 (7.31-7.41)
[2024-08-30] MEDS: LEVOTHYROXINE 125 MCG TAB PO SCH (06:28)
[2024-08-30] MEDS: CALCIUM CARB-VIT D 500 MG-5 MCG TAB PO SCH (08:54)
[2024-08-30] MEDS: allopurinoL 100 MG TAB PO SCH (08:54)
[2024-08-30] MEDS: FAMOTIDINE 20 MG TAB PO SCH (08:55)
[2024-08-30] MEDS: THIAMINE 100 MG TAB PO SCH (08:55)
[2024-08-30] MEDS: FLUoxetine HCL 20 MG CAP PO SCH (08:55)
[2024-08-30] MEDS: FERROUS SULFATE 325 MG TAB PO SCH (08:55)
[2024-08-30] MEDS: FOLIC ACID 1 MG TAB PO SCH (08:55)
[2024-08-30] MEDS: MAGNESIUM OXIDE 400 MG TAB PO SCH (08:55)
[2024-08-30 11:02] LABS: HCT 30.1 % (39.6-50.0); HGB 9.6 g/dL (13.0-17.0); MCH 31.8 pg (27.0-32.0); MCHC 31.9 g/dL (32.0-37.0); MCV 99.7 FL (80.0-97.0); Mean Platelet Volume 11.3 FL (9.5-12.2); NRBC Per 100 WBC 0 X 10*3/uL (0.00-0.01); Platelet Count 176 X 10*3/uL (140-440); RBC 3.02 X 10*6/uL (4.40-5.60); WBC 8.23 X 10*3/uL (4.50-10.00)
[2024-08-30 11:19] LABS: ALT 8 U/L (10-49); AST 17 U/L (14-35); Albumin 3.2 g/dL (3.8-4.9); Alkaline Phosphatase 97 U/L (41-126); Blood Urea Nitrogen 42.9 mg/dL (9.0-27.0); Calcium 7.2 mg/dL (8.7-10.3); Carbon Dioxide 19.5 mmol/L (21.6-31.8); Chloride 104 mmol/L (96-109); Globulin 1.6 g/dL (1.6-3.3); Glucose 120 mg/dL (70-110); Magnesium 1.7 mg/dL (1.5-2.4); Potassium 4.1 mmol/L (3.5-5.5); Sodium 135 mmol/L (135-145); Total Bilirubin 0.3 mg/dL (0.3-1.2); Total Protein 4.8 g/dL (6.2-8.2)
--- NOTE | 2024-08-30 11:43 | P.PN ---
Subjective Progress Note Date: 08/30/24 History of present illness; Stanislav Michel 64-year-old male with CKD stage III, Buerger's disease, BPH, hypothyroidism, GERD, gout, depression presents with dysuria. Patient reports during the last 24 hours he has not urinated or had bowel movement. He reported no symptoms prior to this time with no previous occurrences. He denies painful or bloody urination. He reports regular daily dietary intake. Also yesterday he attest to 24 ounces of alcohol intake. Currently, he denies fever, chills, chest pain, palpitations, shortness of breath, cough, nausea, vomiting, abdominal pain, weakness, lightheadedness, and headache. Initial lab work done in the ER showed WBC 11.3, hemoglobin 11.9, MCV 107.7, platelets 79, PT 9.8, sodium 141, potassium 3.7, chloride 109, bicarb 5, anion gap 27, BUN 48, creatinine 2.73, glucose 37, calcium 8.1, magnesium 1.8, lactic acid 5.5, negative troponin 1X. Urinalysis with trace protein and ketones, large leukocyte Estrace and WBC and rare bacteria. Chest x-ray done independently interpreted in the ER showed cardiomegaly and mild pulmonary vascular congestion. Progress note [id number] seen and examined at bedside. No events overnight. Continues to have improving urine output with Jo catheter in place. No other complaints. REVIEW OF SYSTEMS: All Systems reviewed, pertinent positives and negatives noted in HPI. All other symptoms are negative. The rest of the 14-point review of systems is negative. PHYSICAL EXAMINATION: Vitals reviewed GENERAL: The patient is alert and oriented x3, not in any acute distress. Well developed, well nourished. HEENT: Dry mucous membranes. Pupils are round and equally reacting to light. EOMI. No scleral icterus. No conjunctival pallor. Normocephalic, atraumatic. No pharyngeal erythema. No thyromegaly. CARDIOVASCULAR: S1 and S2 present. No murmurs, rubs, or gallops. PULMONARY: Chest is clear to auscultation, no wheezing or crackles. ABDOMEN: Soft, nontender, nondistended, normoactive bowel sounds. No palpable organomegaly. MUSCULOSKELETAL: joint swelling and deformities in hands and feet EXTREMITIES: No apparent cyanosis, clubbing, or pedal edema. NEUROLOGICAL: Gross neurological examination did not reveal any focal deficits. SKIN: Bilateral legs with erythema and dermatitis, arms with multiple bruises. Labs reviewed todayWBC 8.23, hemoglobin 9.6, MCV 99.7, sodium 135, potassium 4.1, chloride 104, bicarb 19.5, anion gap 11.5, BUN 42.9, creatinine 2.2, glucose 120, calcium 7.2, VBG pH 7.24, pCO2 25, bicarb 10 Imaging reviewed todaynone Assessment and plan Stanislav Michel 64-year-old male with CKD stage III, Buerger's disease, BPH, hypothyroidism, GERD, gout, depression presents with dysuria. # Prerenal anuric ASHA with CKD stage III, improving Creatinine 2.73 => 2.2, last known 1.02 January 2023 Given 2 L of NS initially Continue LR at 150 mL/h Monitor BMP #UTI #Leukocytosis -Patient complaining of dysuria UA positive leukocyte esterase Pending urine culture IV fluid as above Continue ceftriaxone 1 g daily, day #2 #Alcohol intoxication Alcohol dependence, impending alcohol withdrawal #Macrocytic anemia Serum alcohol 193 Initial hemoglobin 11.9, MCV 107.7 Begin CIWA protocol with Ativan IV, monitor for sedation IV fluid as above Thiamine 100 mg daily -No active bleeding #Hypoglycemia, resolved Initial glucose 37 => 120 Given D5W 50 mL in ER Begin Accu-Cheks, every 6 hours #Anion gap metabolic acidosis with non-anion gap metabolic acidosis with respiratory acidosis, improving Lactic acidosis, resolved Initially bicarb 5, anion gap 27 Given sodium bicarb 50 mill equivalent initially VBG pH 7.24, pCO2 25, bicarb 10 -Continue IV fluids -Monitor on telemetry Chronic Medical Conditions continue home meds #CKD stage III, Buerger's disease #BPH #Hypothyroidism #GERD #Gout #Depression F: IV LR at 150 mL/h E: Replete as needed N: Heart healthy diet E: None DVT ppx: Subq Lovenox Code status: Full code Anticipated discharge place: Pending clinical course Anticipated discharge time: Pending clinical course Monitor vital signs, CBC, CMP Continue telemetry monitoring Continue with symptomatic treatment. Resume home medication. GI prophylaxis as needed. Further recommendations as per clinical course of the patient Dictation was produced using [employer] dictation software. Please excuse any grammatical, word or spelling errors. I have seen and evaluated the patient today. Discussed with the resident and agree with the residents finding and plan as documented in the resident's note. Changes highlighted in blue font. Patient is severely ill. prognosis guarded. Objective - Vital Signs Vital signs: Vital Signs Temp 98.2 F 08/30/24 07:58 Pulse 74 08/30/24 11:08 Resp 18 08/30/24 11:08 BP 99/70 08/30/24 11:08 Pulse Ox 97 08/30/24 11:08 FiO2 Intake & Output 08/29/24 08/30/24 08/30/24 18:59 06:59 18:59 Output Total 250 Balance -250 Weight 103.873 kg Output: Urine 250 - Labs CBC & Chem 7: 08/30/24 06:29 08/30/24 06:29 Labs: Abnormal Lab Results - Last 24 Hours (Table) 08/29/24 08/29/24 08/29/24 Range/Units 12:51 12:51 12:51 WBC 11.3 H (3.8-10.6) k/uL RBC 3.71 L (4.30-5.90) m/uL Hgb 11.9 L (13.0-17.5) gm/dL Hct (39.6-50.0) % MCV 107.7 H (80.0-100.0) fL MCHC 29.7 L (31.0-37.0) g/dL Neutrophils # 9.2 H (1.3-7.7) k/uL PT 9.8 L (10.0-12.5) sec VBG pH (7.31-7.41) VBG pCO2 (37-51) mmHg VBG HCO3 (24-28) mmol/L Chloride 109 H (98-107) mmol/L Carbon Dioxide 5 L* (22-30) mmol/L BUN 48 H (9-20) mg/dL Creatinine 2.73 H (0.66-1.25) mg/dL Est GFR (CKD-EPI) (>=60) Glucose 37 L* (74-99) mg/dL Plasma Lactic Acid Kip (0.7-2.0) mmol/L Calcium 8.1 L (8.4-10.2) mg/dL ALT (10-49) U/L Total Protein 5.5 L (6.3-8.2) g/dL Albumin 3.3 L (3.5-5.0) g/dL Urine Protein (Negative) Urine Blood (Negative) Ur Leukocyte Esterase (Negative) Urine WBC (0-5) /hpf Urine Bacteria (None) /hpf Urine Mucus (None) /hpf 08/29/24 08/29/24 08/29/24 Range/Units 12:51 14:04 16:21 WBC (3.8-10.6) k/uL RBC (4.30-5.90) m/uL Hgb (13.0-17.5) gm/dL Hct (39.6-50.0) % MCV (80.0-100.0) fL MCHC (31.0-37.0) g/dL Neutrophils # (1.3-7.7) k/uL PT (10.0-12.5) sec VBG pH (7.31-7.41) VBG pCO2 (37-51) mmHg VBG HCO3 (24-28) mmol/L Chloride (98-107) mmol/L Carbon Dioxide (22-30) mmol/L BUN (9-20) mg/dL Creatinine (0.66-1.25) mg/dL Est GFR (CKD-EPI) (>=60) Glucose (74-99) mg/dL Plasma Lactic Acid Kip 5.5 H* 7.2 H* (0.7-2.0) mmol/L Calcium (8.4-10.2) mg/dL ALT (10-49) U/L Total Protein (6.3-8.2) g/dL Albumin (3.5-5.0) g/dL Urine Protein Trace H (Negative) Urine Blood Trace H (Negative) Ur Leukocyte Esterase Large H (Negative) Urine WBC 10 H (0-5) /hpf Urine Bacteria Rare H (None) /hpf Urine Mucus Rare H (None) /hpf 08/29/24 08/29/24 08/30/24 Range/Units 19:45 19:45 06:29 WBC (3.8-10.6) k/uL RBC (4.30-5.90) m/uL Hgb (13.0-17.5) gm/dL Hct (39.6-50.0) % MCV (80.0-100.0) fL MCHC (31.0-37.0) g/dL Neutrophils # (1.3-7.7) k/uL PT (10.0-12.5) sec VBG pH 7.24 L (7.31-7.41) VBG pCO2 25 L (37-51) mmHg VBG HCO3 10 L (24-28) mmol/L Chloride (98-107) mmol/L Carbon Dioxide 19.5 L (22-30) mmol/L BUN 42.9 H (9-20) mg/dL Creatinine 2.2 H (0.66-1.25) mg/dL Est GFR (CKD-EPI) 33 L (>=60) Glucose 120 H (74-99) mg/dL Plasma Lactic Acid Kip 6.1 H* (0.7-2.0) mmol/L Calcium 7.2 L (8.4-10.2) mg/dL ALT 8 L (10-49) U/L Total Protein 4.8 L (6.3-8.2) g/dL Albumin 3.2 L (3.5-5.0) g/dL Urine Protein (Negative) Urine Blood (Negative) Ur Leukocyte Esterase (Negative) Urine WBC (0-5) /hpf Urine Bacteria (None) /hpf Urine Mucus (None) /hpf 08/30/24 Range/Units 06:29 WBC (3.8-10.6) k/uL RBC 3.02 L (4.30-5.90) m/uL Hgb 9.6 L (13.0-17.5) gm/dL Hct 30.1 L (39.6-50.0) % MCV 99.7 H (80.0-100.0) fL MCHC 31.9 L (31.0-37.0) g/dL Neutrophils # (1.3-7.7) k/uL PT (10.0-12.5) sec VBG pH (7.31-7.41) VBG pCO2 (37-51) mmHg VBG HCO3 (24-28) mmol/L Chloride (98-107) mmol/L Carbon Dioxide (22-30) mmol/L BUN (9-20) mg/dL Creatinine (0.66-1.25) mg/dL Est GFR (CKD-EPI) (>=60) Glucose (74-99) mg/dL Plasma Lactic Acid Kip (0.7-2.0) mmol/L Calcium (8.4-10.2) mg/dL ALT (10-49) U/L Total Protein (6.3-8.2) g/dL Albumin (3.5-5.0) g/dL Urine Protein (Negative) Urine Blood (Negative) Ur Leukocyte Esterase (Negative) Urine WBC (0-5) /hpf Urine Bacteria (None) /hpf Urine Mucus (None) /hpf
[2024-08-31 08:27] LABS: HCT 32.2 % (39.6-50.0); HGB 10.1 g/dL (13.0-17.0); MCH 32.1 pg (27.0-32.0); MCHC 31.4 g/dL (32.0-37.0); MCV 102.2 FL (80.0-97.0); Mean Platelet Volume 10.9 FL (9.5-12.2); NRBC Per 100 WBC 0 X 10*3/uL (0.00-0.01); Platelet Count 153 X 10*3/uL (140-440); RBC 3.15 X 10*6/uL (4.40-5.60); RDW 14.1 % (11.5-14.5); WBC 6.67 X 10*3/uL (4.50-10.00)
[2024-08-31 08:41] LABS: ALT 7 U/L (10-49); AST 18 U/L (14-35); Albumin 3.2 g/dL (3.8-4.9); Albumin/Globulin Ratio 2.13 Ratio (1.60-3.17); Alkaline Phosphatase 95 U/L (41-126); BUN/Creat Ratio 21.35 Ratio (12.00-20.00); Blood Urea Nitrogen 36.3 mg/dL (9.0-27.0); Calcium 8.2 mg/dL (8.7-10.3); Carbon Dioxide 19.8 mmol/L (21.6-31.8); Chloride 108 mmol/L (96-109); Globulin 1.5 g/dL (1.6-3.3); Glucose 95 mg/dL (70-110); Magnesium 1.8 mg/dL (1.5-2.4); Potassium 4.3 mmol/L (3.5-5.5); Sodium 137 mmol/L (135-145); Total Bilirubin 0.3 mg/dL (0.3-1.2); Total Protein 4.7 g/dL (6.2-8.2)
[2024-08-31 08:58] VITALS: BP 104/64; PULSE 63; RESP 16; TEMP 98
--- NOTE | 2024-08-31 14:42 | P.DS ---
Providers Date of admission: 08/29/24 15:32 Expected date of discharge: 08/31/24 Attending physician: Tom Charlton Primary care physician: Stated None Hospital Course: Discharge diagnosis: # Prerenal anuric ASHA with CKD stage III #UTI #Alcohol intoxication #Alcohol dependence, impending alcohol withdrawal #Macrocytic anemia #Hypoglycemia #Anion gap metabolic acidosis with non-anion gap metabolic acidosis with respiratory acidosis #Lactic acidosis #BPH #Hypothyroidism #GERD #Gout #Depression Hospital course: History of present illness; Stanislav Michel 64-year-old male with CKD stage III, Buerger's disease, BPH, hypothyroidism, GERD, gout, depression presents with dysuria. Patient reports during the last 24 hours he has not urinated or had bowel movement. He reported no symptoms prior to this time with no previous occurrences. He denies painful or bloody urination. He reports regular daily dietary intake. Also yesterday he attest to 24 ounces of alcohol intake. Currently, he denies fever, chills, chest pain, palpitations, shortness of breath, cough, nausea, vomiting, abdominal pain, weakness, lightheadedness, and headache. Initial lab work done in the ER showed WBC 11.3, hemoglobin 11.9, MCV 107.7, platelets 79, PT 9.8, sodium 141, potassium 3.7, chloride 109, bicarb 5, anion gap 27, BUN 48, creatinine 2.73, glucose 37, calcium 8.1, magnesium 1.8, lactic acid 5.5, negative troponin 1X. Urinalysis with trace protein and ketones, large leukocyte Estrace and WBC and rare bacteria. Chest x-ray done independently interpreted in the ER showed cardiomegaly and mild pulmonary vascular congestion. During hospital stay patient was treated for prerenal and uric ASHA with CKD stage III he was given 2 L of normal saline initially and continued on lactated Ringer's. Jo catheter was inserted. His creatinine continued to improve and was able to initiate urination. He was also treated for UTI with positive UA leukocyte esterase. Urine culture revealed group D Enterococcus. He was treated with ceftriaxone 1 g daily for 3 days during admission. He was also found to have macrocytic anemia. He began CIWA protocol for previous alcohol consumption, which did not require Ativan. Was given thiamine daily. Urine tox found alcohol 193, which may have precipitated ASHA and UTI. He was also treated for hypoglycemia initial glucose 37 which resolved with D5W. Initial anion gap metabolic acidosis with non-anion gap metabolic acidosis with respiratory alkalosis did normalize during stay. Patient is discharged to home in stable condition. He is discharged with cefdinir 300 every 12 hours for 7 days and thiamine 100 mg. Torsemide was discontinued given euvolemic state on discharge. Patient to follow-up with internal medicine [facility] on September 12 at 3 PM. PHYSICAL EXAMINATION: Vitals reviewed GENERAL: The patient is alert and oriented x3, not in any acute distress. Well developed, well nourished. HEENT: Dry mucous membranes. Pupils are round and equally reacting to light. EO [place]. No scleral icterus. No conjunctival pallor. Normocephalic, atraumatic. No pharyngeal erythema. No thyromegaly. CARDIOVASCULAR: S1 and S2 present. No murmurs, rubs, or gallops. PULMONARY: Chest is clear to auscultation, no wheezing or crackles. ABDOMEN: Soft, nontender, nondistended, normoactive bowel sounds. No palpable organomegaly. MUSCULOSKELETAL: joint swelling and deformities in hands and feet EXTREMITIES: No apparent cyanosis, clubbing, or pedal edema. NEUROLOGICAL: Gross neurological examination did not reveal any focal deficits. SKIN: Bilateral legs with erythema and dermatitis, arms with multiple bruises. Dictation was produced using [employer] dictation software. Please excuse any grammatical, word or spelling errors. A total of 33 minutes of time were spent preparing this complex discharge summary. Patient was discharged on 08/31/24 at 940. I have seen and evaluated the patient today. Discussed with the resident and agree with the residents finding and plan as documented in the resident's note. Changes highlighted in blue font. Patient Condition at Discharge: Stable Plan - Discharge Summary Discharge Rx Participant: No New Discharge Prescriptions: New Cefdinir 300 mg PO Q12HR #14 cap Thiamine [Vitamin B-1] 100 mg PO DAILY #60 tab Continue Diclofenac Sodium Gel [Voltaren 1% Gel] 1 gm TOPICAL QID PRN PRN Reason: Pain Loperamide [Imodium] 2 mg PO QID PRN cap PRN Reason: Diarrhea Tamsulosin [Flomax] 0.4 mg PO HS@2000 Ferrous Sulfate [Feosol] 325 mg PO DAILY@0800 Meclizine [Antivert] 12.5 mg PO BID PRN PRN Reason: dizziness Midodrine [ProAmatine] 15 mg PO TID@0800,1400,1999 Levothyroxine Sodium 125 mcg PO AC-BRKFST@0600 Folic Acid 1 mg PO DAILY@0800 Famotidine [Pepcid] 20 mg PO DAILY@0800 FLUoxetine HCL [PROzac] 40 mg PO DAILY@0800 calcitrioL 0.25 mcg PO SA@0800 Ergocalciferol [Vitamin D2 (1250 Mcg = 21578 Iu)] 2,500 mcg PO FR@0800 Melatonin 10 mg PO HS@2000 Magnesium Oxide [Magox 400] 400 mg PO DAILY@0800 Acetaminophen [Tylenol Arthritis] 650 mg PO TID@0800,1399,1999 Calcium Carbonate/Vitamin D3 [Calcium 600 mg-Vit D3 5 mcg (200 unit)] 1 tab PO DAILY@0800 allopurinoL 100 mg PO DAILY@0800 Discontinued Torsemide [Demadex] 20 mg PO DAILY@0800 Discharge Medication List Diclofenac Sodium Gel [Voltaren 1% Gel] 1 gm TOPICAL QID PRN 11/06/22 [History] Loperamide [Imodium] 2 mg PO QID PRN cap 12/08/22 [Rx] Acetaminophen [Tylenol Arthritis] 650 mg PO TID@0800,1400,199908/29/24 [History] Calcium Carbonate/Vitamin D3 [Calcium 600 mg-Vit D3 5 mcg (200 unit)] 1 tab PO DAILY@0800 08/29/24 [History] Ergocalciferol [Vitamin D2 (1250 Mcg = 75914 Iu)] 2,500 mcg PO FR@0800 08/29/24 [History] FLUoxetine HCL [PROzac] 40 mg PO DAILY@0800 08/29/24 [History] Famotidine [Pepcid] 20 mg PO DAILY@0800 08/29/24 [History] Ferrous Sulfate [Feosol] 325 mg PO DAILY@0800 08/29/24 [History] Folic Acid 1 mg PO DAILY@0800 08/29/24 [History] Levothyroxine Sodium 125 mcg PO AC-BRKFST@0600 08/29/24 [History] Magnesium Oxide [Magox 400] 400 mg PO DAILY@0800 08/29/24 [History] Meclizine [Antivert] 12.5 mg PO BID PRN 08/29/24 [History] Melatonin 10 mg PO HS@199908/29/24 [History] Midodrine [ProAmatine] 15 mg PO TID@0800,1400,199908/29/24 [History] Tamsulosin [Flomax] 0.4 mg PO HS@199908/29/24 [History] allopurinoL 100 mg PO DAILY@0800 08/29/24 [History] calcitrioL 0.25 mcg PO SA@79908/29/24 [History] Cefdinir 300 mg PO Q12HR #14 cap 08/31/24 [Rx] Thiamine [Vitamin B-1] 100 mg PO DAILY #60 tab 08/31/24 [Rx] Follow up Appointment(s)/Referral(s): [facility] [NON-STAFF] - 1 Week (office busy at time of discharge. Please call to schedule appointment ) Patient Instructions/Handouts: Dehydration (DC), Acute Kidney Injury (DC), Alcohol Intoxication (DC), Abuse of Alcohol (DC) Activity/Diet/Wound Care/Special Instructions: [facility] scheduled [facility], September 12 at 3PM. Discharge Disposition: HOME SELF-CARE
[2024-09-01 06:59] LABS: Glucose,Whole Blood 96 mg/dL (70-110)
[2024-09-01 06:59] LABS: Glucose,Whole Blood 111 mg/dL (70-110)
[2024-09-01 06:59] LABS: Glucose,Whole Blood 114 mg/dL (70-110)
[2024-09-01 07:00] LABS: Glucose,Whole Blood 94 mg/dL (70-110)
[2024-09-01 07:02] LABS: Glucose,Whole Blood 133 mg/dL (70-110)
[2024-09-01 07:02] LABS: Glucose,Whole Blood 107 mg/dL (70-110)
[2024-09-01 07:17] LABS: Glucose,Whole Blood 104 mg/dL (70-110)
[2024-09-01 07:17] LABS: Glucose,Whole Blood 123 mg/dL (70-110)
[2024-09-01] MEDS ORDERED: ERGOCALCIFEROL 1,250 MCG (50,000 IU) CAPSULE PO SCH (08:00)
[2024-09-01 08:14] LABS: Glucose,Whole Blood 136 mg/dL (70-110)
[2024-09-01 08:24] LABS: Glucose,Whole Blood 116 mg/dL (70-110)
[2024-09-01 08:24] LABS: Glucose,Whole Blood 111 mg/dL (70-110)
[2024-09-01 11:57] LABS: Glucose,Whole Blood 87 mg/dL (70-110)
[2024-09-01 11:57] LABS: Glucose,Whole Blood 105 mg/dL (70-110)
[2024-09-01 11:57] LABS: Glucose,Whole Blood 41 mg/dL (70-110)
[2024-09-01 11:57] LABS: Glucose,Whole Blood 37 mg/dL (70-110)
[2024-09-01 11:57] LABS: Glucose,Whole Blood 117 mg/dL (70-110)
[2024-09-01 11:57] LABS: Glucose,Whole Blood 68 mg/dL (70-110)
== END 2024-08-31 13:44 | disposition home or self-care (01) | DRG 683 ==
LOC: EC 12:35 → 5NMEDONC 15:32 → 3SCARD 21:28 → 4SSUR 08-30 16:54
PROVIDERS: ADMIT Student in an Organized Health Care Education/Training Program; ATTEND Student in an Organized Health Care Education/Training Program
DX: N17.9 Acute kidney failure, unspecified (principal); E87.4 Mixed disorder of acid-base balance; N39.0 Urinary tract infection, site not specified; B95.2 Enterococcus as the cause of diseases classified elsewhere; I73.1 Thromboangiitis obliterans [Buerger's disease]; F10.229 Alcohol dependence with intoxication, unspecified; N18.30 Chronic kidney disease, stage 3 unspecified; E03.9 Hypothyroidism, unspecified; F32.A Depression, unspecified; D53.9 Nutritional anemia, unspecified; I95.9 Hypotension, unspecified; R26.2 Difficulty in walking, not elsewhere classified; E16.2 Hypoglycemia, unspecified; N40.0 Benign prostatic hyperplasia without lower urinary tract symptoms; K21.9 Gastro-esophageal reflux disease without esophagitis; M10.9 Gout, unspecified; E86.0 Dehydration; I51.7 Cardiomegaly; Y90.6 Blood alcohol level of 120-199 mg/100 ml; Z98.84 Bariatric surgery status; Z79.890 Hormone replacement therapy; Z79.899 Other long term (current) drug therapy
CPT/HCPCS: 36415; 71046; 80053; 80320; 81001; 82803; 83605; 83735; 84484; 85025; 85027; 85610; 85730; 87077; 87086; 87186; 87324; 93005; 96365; 96366; 96375; 96376; 99291

== ENCOUNTER 2024-09-07 18:45 | Emergency (ER) | payer OTHER ==
[2024-09-07 20:03] LABS: ALT 12 U/L (4-49); AST 27 U/L (17-59); African American GFR (CKD) 46 (>60 ml/min/1.73 sqM); Albumin 3.4 g/dL (3.5-5.0); Alkaline Phosphatase 84 U/L (38-126); Anion Gap 8 mmol/L; Basophils % (A) 0 %; Blood Urea Nitrogen 51 mg/dL (9-20); Calcium 8.4 mg/dL (8.4-10.2); Carbon Dioxide 19 mmol/L (22-30); Chloride 111 mmol/L (98-107); Eosinophils # (A) 0.2 k/uL (0-0.7); Eosinophils % (A) 4 %; Glucose 78 mg/dL (74-99); HCT 37.5 % (39.0-53.0); HGB 11.8 gm/dL (13.0-17.5); Hypochromasia Moderate; Lymphocytes # (A) 3.3 k/uL (1.0-4.8); Lymphocytes % (A) 59 %; MCH 32.6 pg (25.0-35.0); MCHC 31.4 g/dL (31.0-37.0); MCV 103.9 fL (80.0-100.0); Macrocytosis Slight; Mean Platelet Volume 8.2; Monocytes # (A) 0.3 k/uL (0-1.0); Monocytes % (A) 5 %; Neutrophils # (A) 1.6 k/uL (1.3-7.7); Neutrophils % (A) 28 %; Non-African American GFR(CKD) 39 (>60 ml/min/1.73 sqM); Platelet Count 179 k/uL (150-450); Potassium 5.2 mmol/L (3.5-5.1); RBC 3.61 m/uL (4.30-5.90); RDW 13.7 % (11.5-15.5); Sodium 138 mmol/L (137-145); Total Bilirubin 0.3 mg/dL (0.2-1.3); Total Protein 5.6 g/dL (6.3-8.2); WBC 5.5 k/uL (3.8-10.6)
[2024-09-07 20:18] LABS: Alcohol 217 mg/dL
[2024-09-07] MEDS ORDERED: LORazepam 2 MG/ML INJ IV PRN ×3 (20:22)
--- NOTE | 2024-09-07 20:28 | ED ---
General Adult HPI - General Source: patient, family, RN notes reviewed, old records reviewed Mode of arrival: EMS Limitations: no limitations <Junaid Cabrera - Last Filed: 09/07/24 20:23> <Steve Milton - Last Filed: 09/11/24 14:52> - General Chief complaint: Psychiatric Symptoms Stated complaint: ETOH Time Seen by Provider: 09/07/24 19:16 - History of Present Illness Initial comments: Patient is a 64-year-old male who presents emergency department complaining of suicidal ideations. Was petitioned by police for having suicidal statements. Apparently patient has been door Dashing alcohol to his living facility. They got canceled. Began making threats that he was going to kill himself. This has happened previously. Was transferred here for further evaluation. He does endorse the suicidal statements. States he has been having these thoughts for 9 years. His plan is to drink himself to . Denies any history of alcohol withdrawals. Does not drink on a regular basis. He has no other acute complaints at this time. Presents for further evaluation. (Junaid Cabrera) - Related Data Home Medications Medication Instructions Recorded Confirmed Diclofenac Sodium Gel [Voltaren 1% 1 gm TOPICAL QID PRN 11/06/22 09/08/24 Gel] Acetaminophen [Tylenol Arthritis] 650 mg PO TID@0800,1400,2000 08/29/24 09/08/24 Calcium Carbonate/Vitamin D3 1 tab PO DAILY@0800 08/29/24 09/08/24 [Calcium 600 mg-Vit D3 5 mcg (200 unit)] Ergocalciferol [Vitamin D2 (1250 2,500 mcg PO FR@0808/29/24 09/08/24 Mcg = 48375 Iu)] FLUoxetine HCL [PROzac] 40 mg PO DAILY@0800 08/29/24 09/08/24 Famotidine [Pepcid] 20 mg PO DAILY@0800 08/29/24 09/08/24 Ferrous Sulfate [Feosol] 325 mg PO DAILY@0800 08/29/24 09/08/24 Folic Acid 1 mg PO DAILY@0800 08/29/24 09/08/24 Levothyroxine Sodium 125 mcg PO AC-BRKFST@0600 08/29/24 09/08/24 Magnesium Oxide [Magox 400] 400 mg PO DAILY@0800 08/29/24 09/08/24 Meclizine [Antivert] 12.5 mg PO BID PRN 08/29/24 09/08/24 Melatonin 10 mg PO HS@199908/29/24 09/08/24 Midodrine [ProAmatine] 15 mg PO TID@0800,1400,199908/29/24 09/08/24 Tamsulosin [Flomax] 0.4 mg PO HS@199908/29/24 09/08/24 allopurinoL 100 mg PO DAILY@0800 08/29/24 09/08/24 calcitrioL 0.25 mcg PO SA@0800 08/29/24 09/08/24 Thiamine [Vitamin B-1] 100 mg PO DAILY@0800 09/08/24 09/08/24 Torsemide [Demadex] 20 mg PO DAILY@0800 09/08/24 09/08/24 Previous Rx's Medication Instructions Recorded Loperamide [Imodium] 2 mg PO QID PRN cap 12/08/22 Allergies Allergy/AdvReac Type Severity Reaction Status Date / Time No Known Allergies Allergy Verified 09/08/24 11:13 Review of Systems ROS Other: All systems not noted in ROS Statement are negative. <Junaid Cabrera - Last Filed: 09/07/24 20:23> ROS Other: All systems not noted in ROS Statement are negative. <Steve Milton - Last Filed: 09/11/24 14:52> ROS Statement: Those systems with pertinent positive or pertinent negative responses have been documented in the HPI. Review of Systems: CONST: Denies fever EYES: Denies blurry vision ENT: Denies nasal congestion C/V: Denies Chest pain RESP: Denies shortness of breath GI: Denies abdominal pain : Denies dysuria SKIN: Denies rash. MSK: Denies joint pain. NEURO: Denies headache (Junaid Cabrera) Past Medical History Past Medical History: Deep Vein Thrombosis (DVT), Sleep Apnea/CPAP/BIPAP, Thyroid Disorder Additional Past Medical History / Comment(s): thyroid issue. pt reports not using CPAP/BIPAP at HS History of Any Multi-Drug Resistant Organisms: None Reported Additional Past Surgical History / Comment(s): gastric bypass. Umbilical hernia, 6x hernia surgeries, fell & broke hip in 2019 - pt was in [facility] at the time and reports getting a pin in hip. Past Anesthesia/Blood Transfusion Reactions: No Reported Reaction Past Psychological History: Depression Smoking Status: Never smoker <Junaid Cabrera - Last Filed: 09/07/24 20:23> General Exam Limitations: no limitations <Junaid Cabrera - Last Filed: 09/07/24 20:23> - General Exam Comments Initial Comments: General: Appears in no acute distress. HEAD: Normal with no signs of head trauma. EYES: EOMI ENT: Hearing grossly intact, normal oropharynx. RESPIRATORY: Clear breath sounds bilaterally. No wheezes, rales, or rhonchi. C/V: Regular rate and rhythm. S1 and S2 auscultated, no edema, peripheral pulses 2+ and intact throughout ABD: Abd is soft, nontender, nondistended EXT: Normal range of motion, no obvious deformity SKIN: No rashes or lesions observed on exposed skin. NEURO: Oriented x 4. No evidence of alcohol withdrawals. (Junaid Cabrera) Course Vital Signs 09/07/24 09/08/24 09/08/24 18:51 04:57 19:40 Temperature 98.6 F 98.5 F Pulse Rate 66 94 65 Respiratory 20 18 18 Rate Blood Pressure 90/60 143/83 120/61 O2 Sat by Pulse 98 96 95 Oximetry 09/09/24 09/09/24 09/10/24 09:19 20:47 12:30 Temperature 98.2 F 99.3 F Pulse Rate 85 70 86 Respiratory 18 15 18 Rate Blood Pressure 124/78 124/79 133/81 O2 Sat by Pulse 99 97 98 Oximetry 09/10/24 09/11/24 09/11/24 23:48 06:14 07:53 Temperature 98.2 F Pulse Rate 70 80 82 Respiratory 18 16 16 Rate Blood Pressure 100/60 119/81 104/71 O2 Sat by Pulse 98 98 98 Oximetry 09/11/24 09/11/24 12:12 12:58 Temperature 98.5 F Pulse Rate 86 66 Respiratory 16 16 Rate Blood Pressure 103/69 O2 Sat by Pulse 100 98 Oximetry Medical Decision Making - Lab Data Result diagrams: 09/07/24 19:36 09/07/24 19:36 - EKG Data -: EKG Interpreted by Me <Junaid Cabrera - Last Filed: 09/07/24 20:23> - Lab Data Result diagrams: 09/07/24 19:36 09/11/24 12:25 <Steve Milton - Last Filed: 09/11/24 14:52> - Medical Decision Making Was pt. sent in by a medical professional or institution ([facility], [employer], urgent care, hospital, or penitentiary...) When possible be specific @ -Sent from assisted living facility for psychiatric evaluation. Did you speak to anyone other than the patient for history (EMS, parent, family, police, friend...)? What history was obtained from this source @ -No Did you review nursing and triage notes (agree or disagree)? Why? @ -I reviewed and agree with nursing and triage notes Were old charts reviewed (outside hosp., previous admission, EMS record, old EKG, old radiological studies, urgent care reports/EKG's, penitentiary records)? Report findings @ -Reviewed the petition completed by police officers for suicidal ideation. Reviewed prior EKG from August 2024 of this year which showed no dynamic changes when compared with today's EKG. Differential Diagnosis (chest pain, altered mental status, abdominal pain women, abdominal pain men, vaginal bleeding, weakness, fever, dyspnea, syncope, headache, dizziness, GI bleed, back pain, seizure, CVA, palpatations, mental health, musculoskeletal)? @ -Differential mental health EKG interpreted by me (3pts min.). @ -As above X-rays interpreted by me (1pt min.). @ -None done CT interpreted by me (1pt min.). @ -None done U/S interpreted by me (1pt. min.). @ -None done What testing was considered but not performed or refused? (CT, X-rays, U/S, labs)? Why? @ -None What meds were considered but not given or refused? Why? @ -None Did you discuss the management of the patient with other professionals (professionals i.e. [facility]asmussen, [employer], lab, RT, psych nurse, social studies teacher, arabic teacher, teacher, commissioned security officer, patient case coordinator)? Give summary @ -No Was smoking cessation discussed for >3mins.? @ -No Was critical care preformed (if so, how long)? @ -No Were there social determinants of health that impacted care today? How? (Homelessness, low income, unemployed, alcoholism, drug addiction, transportation, low edu. Level, literacy, decrease access to med. care, shelter, rehab)? @ -No Was there de-escalation of care discussed even if they declined (Discuss DNR or withdrawal of care, Hospice)? DNR status @ -No What co-morbidities impacted this encounter? (DM, HTN, Smoking, COPD, CAD, Cancer, CVA, ARF, Chemo, Hep., AIDS, mental health diagnosis, sleep apnea, morbid obesity)? @ -None Was patient admitted / discharged? Hospital course, mention meds given and route, prescriptions, significant lab abnormalities, going to OR and other pertinent info. @ -Patient presents acutely toxic with alcohol. We will obtain basic labs and screening EKG. He was placed in suicide precautions. Sitter ordered. Patient presents for psychiatric evaluation for suicidal statements. Vital signs within acceptable limits. Laboratory studies remarkable for an alcohol intoxication with a low blood level of 217. Appears patient has a history of CKD is not current creatinine is 1.7. We will continue to monitor. I will push hydration. Patient was placed on CIWA in the event of alcohol withdrawal symptoms. EKG showed no obvious acute changes. However at this time patient will be medically cleared upon sobriety. EPS will be notified at that time. Undiagnosed new problem with uncertain prognosis? @ -No Drug Therapy requiring intensive monitoring for toxicity (Heparin, Nitro, Insulin, Cardizem)? @ -No Were any procedures done? @ -No Diagnosis/symptom? @ -Intoxication, suicidal ideation Acute, or Chronic, or Acute on Chronic? @ -Acute Uncomplicated (without systemic symptoms) or Complicated (systemic symptoms)? @ -Complicated Side effects of treatment? @ -No Exacerbation, Progression, or Severe Exacerbation? @ -No Poses a threat to life or bodily function? How? (Chest pain, USA, LA, pneumonia, PE, COPD, DKA, ARF, appy, cholecystitis, CVA, Diverticulitis, Homicidal, Suicidal, threat to staff... and all critical care pts) @ -Yes (Junaid Cabrera) Patient seen by mental health services with plans for geriatric transfer for psychiatric care. Patient reevaluated by myself. Patient does admit that he has thoughts that it would be a good thing if he fell asleep and never woke up. Patient has been evaluated by mental health for several days. I did discuss case with mental health worker. Patient will be transferred. Positive clinical certificate completed. (Steve Milton) - Lab Data Lab Results 09/07/24 09/07/24 09/08/24 Range/Units 19:36 19:36 09:00 WBC 5.5 (3.8-10.6) k/uL RBC 3.61 L (4.30-5.90) m/uL Hgb 11.8 L (13.0-17.5) gm/dL Hct 37.5 L (39.0-53.0) % MCV 103.9 H (80.0-100.0) fL MCH 32.6 (25.0-35.0) pg MCHC 31.4 (31.0-37.0) g/dL RDW 13.7 (11.5-15.5) % Plt Count 179 (150-450) k/uL MPV 8.2 Neutrophils % 28 % Lymphocytes % 59 % Monocytes % 5 % Eosinophils % 4 % Basophils % 0 % Neutrophils # 1.6 (1.3-7.7) k/uL Lymphocytes # 3.3 (1.0-4.8) k/uL Monocytes # 0.3 (0-1.0) k/uL Eosinophils # 0.2 (0-0.7) k/uL Basophils # 0.0 (0-0.2) k/uL Hypochromasia Moderate Macrocytosis Slight Sodium 138 (137-145) mmol/L Potassium 5.2 H (3.5-5.1) mmol/L Chloride 111 H (98-107) mmol/L Carbon Dioxide 19 L (22-30) mmol/L Anion Gap 8 mmol/L BUN 51 H (9-20) mg/dL Creatinine 1.79 H (0.66-1.25) mg/dL Est GFR (CKD-EPI)AfAm 46 (>60 ml/min/1.73 sqM) Est GFR (CKD-EPI)NonAf 39 (>60 ml/min/1.73 sqM) Glucose 78 (74-99) mg/dL Calcium 8.4 (8.4-10.2) mg/dL Total Bilirubin 0.3 (0.2-1.3) mg/dL AST 27 (17-59) U/L ALT 12 (4-49) U/L Alkaline Phosphatase 84 (38-126) U/L Total Protein 5.6 L (6.3-8.2) g/dL Albumin 3.4 L (3.5-5.0) g/dL Urine Color Colorless Urine Appearance Cloudy (Clear) Urine pH 5.5 (5.0-8.0) Ur Specific [place] 1.015 (1.001-1.035) Urine Protein Trace H (Negative) Urine Glucose (UA) Negative (Negative) Urine Ketones Trace H (Negative) Urine Blood Trace H (Negative) Urine Nitrite Negative (Negative) Urine Bilirubin Negative (Negative) Urine Urobilinogen <2.0 (<2.0) mg/dL Ur Leukocyte Esterase Large H (Negative) Urine RBC 4 (0-5) /hpf Urine WBC >182 H (0-5) /hpf Urine WBC Clumps Occasional H (None) /hpf Ur Squamous Epith Cells 1 (0-4) /hpf Urine Bacteria Occasional H (None) /hpf Ur Yeast w Hyphae Rare (None) /hpf Urine Yeast (Budding) Rare H (None) /hpf Urine Opiates Screen Not Detected (NotDetected) Ur Oxycodone Screen Not Detected (NotDetected) Urine Methadone Screen Not Detected (NotDetected) Ur Barbiturates Screen Not Detected (NotDetected) U Tricyclic Antidepress Not Detected (NotDetected) Ur Phencyclidine Scrn Not Detected (NotDetected) Ur Amphetamines Screen Not Detected (NotDetected) U Methamphetamines Scrn Not Detected (NotDetected) U Benzodiazepines Scrn Not Detected (NotDetected) Urine Cocaine Screen Not Detected (NotDetected) U Marijuana (THC) Screen Not Detected (NotDetected) Serum Alcohol 217 H* mg/dL C. difficile (EIA) Intrp (Negative) SARS-CoV-2 (PCR) (Not Detectd) 09/08/24 09/08/24 09/11/24 Range/Units 14:03 15:05 12:25 WBC (3.8-10.6) k/uL RBC (4.30-5.90) m/uL Hgb (13.0-17.5) gm/dL Hct (39.0-53.0) % MCV (80.0-100.0) fL MCH (25.0-35.0) pg MCHC (31.0-37.0) g/dL RDW (11.5-15.5) % Plt Count (150-450) k/uL MPV Neutrophils % % Lymphocytes % % Monocytes % % Eosinophils % % Basophils % % Neutrophils # (1.3-7.7) k/uL Lymphocytes # (1.0-4.8) k/uL Monocytes # (0-1.0) k/uL Eosinophils # (0-0.7) k/uL Basophils # (0-0.2) k/uL Hypochromasia Macrocytosis Sodium 135 L (137-145) mmol/L Potassium 5.0 (3.5-5.1) mmol/L Chloride 109 H (98-107) mmol/L Carbon Dioxide 22 (22-30) mmol/L Anion Gap 4 mmol/L BUN 36 H (9-20) mg/dL Creatinine 1.59 H (0.66-1.25) mg/dL Est GFR (CKD-EPI)AfAm 52 (>60 ml/min/1.73 sqM) Est GFR (CKD-EPI)NonAf 45 (>60 ml/min/1.73 sqM) Glucose 91 (74-99) mg/dL Calcium 8.6 (8.4-10.2) mg/dL Total Bilirubin (0.2-1.3) mg/dL AST (17-59) U/L ALT (4-49) U/L Alkaline Phosphatase (38-126) U/L Total Protein (6.3-8.2) g/dL Albumin (3.5-5.0) g/dL Urine Color Urine Appearance (Clear) Urine pH (5.0-8.0) Ur Specific [place] (1.001-1.035) Urine Protein (Negative) Urine Glucose (UA) (Negative) Urine Ketones (Negative) Urine Blood (Negative) Urine Nitrite (Negative) Urine Bilirubin (Negative) Urine Urobilinogen (<2.0) mg/dL Ur Leukocyte Esterase (Negative) Urine RBC (0-5) /hpf Urine WBC (0-5) /hpf Urine WBC Clumps (None) /hpf Ur Squamous Epith Cells (0-4) /hpf Urine Bacteria (None) /hpf Ur Yeast w Hyphae (None) /hpf Urine Yeast (Budding) (None) /hpf Urine Opiates Screen (NotDetected) Ur Oxycodone Screen (NotDetected) Urine Methadone Screen (NotDetected) Ur Barbiturates Screen (NotDetected) U Tricyclic Antidepress (NotDetected) Ur Phencyclidine Scrn (NotDetected) Ur Amphetamines Screen (NotDetected) U Methamphetamines Scrn (NotDetected) U Benzodiazepines Scrn (NotDetected) Urine Cocaine Screen (NotDetected) U Marijuana (THC) Screen (NotDetected) Serum Alcohol mg/dL C. difficile (EIA) Intrp Negative (Negative) SARS-CoV-2 (PCR) Not Detected (Not Detectd) - EKG Data EKG Comments: 12-lead Electrocardiogram Interpretation Note EKG was reviewed and interpreted by myself. 12-lead ECG performed at 1943 is interpreted by me as revealing normal sinus rhythm at a rate of 65 beats per minute. [place] is normal. [place] interval is 204 ms, QRS duration is 158 ms, QTc is 428 ms.. There were no ST or T wave abnormalities to suggest myocardial ischemia or injury. R wave progression across the precordium was satisfactory. By my interpretation this EKG is non-diagnostic for acute ischemia. Compared with EKG from August 29, 2024 with no significant change. (Junaid Cabrera) Disposition <Junaid Cabrera - Last Filed: 09/07/24 20:23> Is patient prescribed a controlled substance at d/c from ED?: No <Steve Milton - Last Filed: 09/11/24 14:52> Clinical Impression: Suicidal ideation, Alcohol intoxication Disposition: TRANSFER TO PSYCH HOSP/UNIT Referrals: None,Stated [Primary Care Provider] - 1-2 days
[2024-09-07] MEDS: SODIUM CHLORIDE 0.9% 1,000 ML IV STA (21:13)
[2024-09-08 09:37] LABS: Appearance,Urine Cloudy (Clear); Bacteria,Urine Occasional /hpf; Bilirubin,Urine Negative (Negative); Blood,Urine Trace (Negative); Budding Yeast,Urine Rare /hpf; Color,Urine Colorless; Glucose,Urine (UA) Negative (Negative); Hyphae Yeast, Urine Rare /hpf; Ketones,Urine Trace (Negative); Leukocyte Esterase,Urine Large (Negative); Nitrite,Urine Negative (Negative); PH, Urine 5.5 (5.0-8.0); Protein,Urine Trace (Negative); RBC,Urine 4 /hpf (0-5); Specific Gravity,Urine 1.015 (1.001-1.035); Squamous Epithelial Cell,Urine 1 /hpf (0-4); Urobilinogen,Urine <2.0 mg/dL (<2.0); WBC,Urine >182 /hpf (0-5)
[2024-09-08 09:40] LABS: Amphetamine Screen,Urine Not Detected (NotDetected); Barbiturate Screen,Urine Not Detected (NotDetected); Benzodiazepines Screen,Urine Not Detected (NotDetected); Cocaine Screen,Urine Not Detected (NotDetected); Methadone Screen, Urine Not Detected (NotDetected); Opiate Screen,Urine Not Detected (NotDetected); Oxycodone Screen, Urine Not Detected (NotDetected); Phencyclidine Screen,Urine Not Detected (NotDetected); Tricyclic Antidepressant,Urine Not Detected (NotDetected); Urn Cannabinoid Scrn Not Detected (NotDetected)
[2024-09-10] MEDS ORDERED: MECLIZINE 12.5 MG TAB PO PRN (21:32)
[2024-09-10] MEDS ORDERED: LOPERAMIDE 2 MG CAP PO PRN (21:32)
[2024-09-11] MEDS: LEVOTHYROXINE 125 MCG TAB PO SCH (06:12)
[2024-09-11 06:16] VITALS: RESP 16
[2024-09-11] MEDS: FLUoxetine HCL 20 MG CAP PO SCH (07:54)
[2024-09-11] MEDS: CALCIUM CARB-VIT D 500 MG-5 MCG TAB PO SCH (07:54)
[2024-09-11] MEDS: MIDODRINE 5 MG TAB PO SCH (07:55)
[2024-09-11] MEDS: THIAMINE 100 MG TAB PO SCH (07:55)
[2024-09-11] MEDS: TORSEMIDE 20 MG TAB PO SCH (07:55)
[2024-09-11] MEDS: allopurinoL 100 MG TAB PO SCH (07:55)
[2024-09-11] MEDS: MAGNESIUM OXIDE 400 MG TAB PO SCH (07:56)
[2024-09-11] MEDS: FERROUS SULFATE 325 MG TAB PO SCH (07:56)
[2024-09-11] MEDS: ACETAMINOPHEN TAB 325 MG TAB PO SCH (07:56)
[2024-09-11] MEDS: FAMOTIDINE 20 MG TAB PO SCH (08:03)
[2024-09-11] MEDS: FOLIC ACID 1 MG TAB PO SCH (08:03)
[2024-09-11 12:13] VITALS: TEMP 98.5
[2024-09-11] MEDS: CEPHALEXIN 500 MG CAP PO SCH (12:14)
[2024-09-11 12:47] LABS: African American GFR (CKD) 52 (>60 ml/min/1.73 sqM); Anion Gap 4 mmol/L; Blood Urea Nitrogen 36 mg/dL (9-20); Calcium 8.6 mg/dL (8.4-10.2); Carbon Dioxide 22 mmol/L (22-30); Chloride 109 mmol/L (98-107); Glucose 91 mg/dL (74-99); Non-African American GFR(CKD) 45 (>60 ml/min/1.73 sqM); Sodium 135 mmol/L (137-145)
[2024-09-11 17:54] VITALS: BP 133/87; PULSE 68
[2024-09-11] MEDS: TAMSULOSIN 0.4 MG CAP.ER.24H PO SCH (19:54)
[2024-09-11] MEDS: MELATONIN 5 MG TABLET PO SCH (19:55)
[2024-09-15] MEDS ORDERED: ERGOCALCIFEROL 1,250 MCG (50,000 IU) CAPSULE PO SCH (08:00)
== END 2024-09-11 22:25 ==
LOC: EC 18:45
CPT/HCPCS: 36415; 80048; 80053; 80306; 80320; 81001; 82075; 85025; 87086; 87324; 87635; 93005; 96360; 99285

== ENCOUNTER → 2024-09-20 | Outpatient (CLI) | payer OTHER ==
[2024-09-20 15:22] LABS: Creatinine,Urine Random 54.8 mg/dL; Protein/Creatinine Ratio,Urine 0.365
[2024-09-20 19:36] LABS: Appearance,Urine Turbid (Clear); Bilirubin,Urine Negative (Negative); Blood,Urine Small (Negative); Color,Urine Yellow (Yellow); Ketones,Urine Negative (Negative); Nitrite,Urine Negative (Negative); PH, Urine 5.5; Specific Gravity,Urine 1.012 (1.001-1.030); Urobilinogen,Urine 0.2 E.U./DL
[2024-09-20 19:59] LABS: Basophils # (A) 0.07 X 10*3/uL (0.00-0.10); Basophils % (A) 0.9 %; Eosinophils # (A) 0.34 X 10*3/uL (0.04-0.35); Eosinophils % (A) 4.2 %; HCT 36.6 % (39.6-50.0); HGB 11.6 g/dL (13.0-17.0); Lymphocytes # (A) 3.28 X 10*3/uL (0.90-5.00); Lymphocytes % (A) 40.4 %; MCH 32.4 pg (27.0-32.0); MCHC 31.7 g/dL (32.0-37.0); MCV 102.2 FL (80.0-97.0); Mean Platelet Volume 11.7 FL (9.5-12.2); Monocytes # (A) 1.03 X 10*3/uL (0.20-1.00); Monocytes % (A) 12.7 %; NRBC Per 100 WBC 0 X 10*3/uL (0.00-0.01); Neutrophils # (A) 3.35 X 10*3/uL (1.80-7.70); Neutrophils % (A) 41.3 %; Platelet Count 340 X 10*3/uL (140-440); RBC 3.58 X 10*6/uL (4.40-5.60); RDW 12.9 % (11.5-14.5); WBC 8.11 X 10*3/uL (4.50-10.00)
[2024-09-20 20:24] LABS: Bacteria,Urine Trace (None Seen); Yeast (UA) Present (None Seen)
[2024-09-20 21:51] LABS: % Iron Saturation 23.36 (15.00-50.00); ALT 13 U/L (10-49); AST 17 U/L (14-35); Albumin/Globulin Ratio 1.82 Ratio (1.60-3.17); Alkaline Phosphatase 97 U/L (41-126); BUN/Creat Ratio 32.48 Ratio (12.00-20.00); Blood Urea Nitrogen 68.2 mg/dL (9.0-27.0); Calcium 8.9 mg/dL (8.7-10.3); Chloride 102 mmol/L (96-109); Globulin 2.2 g/dL (1.6-3.3); Glucose 91 mg/dL (70-110); Iron 64 UG/DL (65-175); Magnesium 1.8 mg/dL (1.5-2.4); Phosphorus 4.5 mg/dL (2.4-5.1); Potassium 4.4 mmol/L (3.5-5.5); Sodium 138 mmol/L (135-145); Total Bilirubin 0.3 mg/dL (0.3-1.2); Total Iron Binding Capacity 274 UG/DL (228-460); Total Protein 6.2 g/dL (6.2-8.2); Uric Acid 6.3 mg/dL (3.7-8.7)
[2024-09-20 22:01] LABS: Urine Creatinine 54.3 mg/dL (39.0-259.0)
== END | disposition home or self-care (01) ==
LOC: LABWHC1 13:41
PROVIDERS: ATTEND Internal Medicine Nephrology
CPT/HCPCS: 36415; 80053; 81001; 82043; 82306; 82533; 82570; 82728; 83540; 83550; 83735; 83970; 84100; 84156; 84550; 85025

== ENCOUNTER 2025-01-26 05:49 | Observation (INO) | payer MEDICARE, OTHER ==
[2025-01-26] MEDS: IV FLUID CONTINUATION 1,000 ML IV ONE (06:53)
[2025-01-26] MEDS: LACTATED RINGERS 1,000 ML IV SCH (06:55)
[2025-01-26] MEDS: MIDAZOLAM 2 MG/2 ML VIAL IV PRN (07:10)
[2025-01-26] MEDS ORDERED: MORPHINE SULFATE 2 MG/ML SYRINGE IV PRN ×2 (07:15)
[2025-01-26] MEDS: ONDANSETRON 4 MG/2 ML VIAL IVP ONE (07:23)
[2025-01-26] MEDS ORDERED: SUCCINYLCHOLINE CHLORIDE 200 MG/10 ML VIAL IV ONE (07:25)
[2025-01-26] MEDS ORDERED: NEOSTIGMINE 1 MG/ML 10 ML VIAL ONE (07:25)
[2025-01-26] MEDS: DEXAMETHASONE SOD PHOSPHATE 4 MG/ML 1 ML VIAL IV ONE (07:25)
[2025-01-26] MEDS ORDERED: LIDOCAINE 1% INJ 10MG/ML (20 ML MDV) ONE (07:25)
[2025-01-26] MEDS ORDERED: PROPOFOL 10 MG/ML 20 ML VIAL IV ONE (07:25)
[2025-01-26] MEDS ORDERED: DEXAMETHASONE SOD PHOSPHATE 4 MG/ML 1 ML VIAL ONE (07:25)
[2025-01-26] MEDS ORDERED: ROCURONIUM 10 MG/ML (5 ML VIAL) IV ONE (07:25)
[2025-01-26] MEDS ORDERED: ROPIVACAINE 5 MG/ML 30 ML VIAL ONE (07:25)
[2025-01-26] MEDS ORDERED: GLYCOPYRROLATE 0.2 MG/ML 2 ML VIAL ONE (07:25)
[2025-01-26] MEDS ORDERED: WATER FOR INJECTION, STERILE 10 ML VIAL IV ONE (07:25)
[2025-01-26] MEDS ORDERED: HYDROmorphone (PF) 1 MG/ML ONE (07:25)
[2025-01-26] MEDS ORDERED: ePHEDrine 50 MG/ML 1 ML VIAL ONE (07:25)
[2025-01-26] MEDS ORDERED: PHENYLEPHRINE-0.9% NACL SYG 1,000 MCG/10 ML SYRINGE ONE (07:25)
[2025-01-26] MEDS ORDERED: fentaNYL (PF) 50 MCG/ML 2 ML AMP ONE (07:25)
[2025-01-26] MEDS: ceFAZolin 1,000 MG in SODIUM CHLORIDE 0.9% 1,000 ML IRRIGATION ONE ×5 (07:29)
[2025-01-26] MEDS: HEPARIN SODIUM 1,000 UN/ML (10ML VL) MISCELLANE ONE (07:50)
[2025-01-26 08:04] LABS: Glucose,Whole Blood 70 mg/dL (70-110)
[2025-01-26] MEDS ORDERED: Apixaban Initiation Dose--VTE 5 MG TAB PO SCH (09:00)
[2025-01-26 10:00] LABS: Glucose,Whole Blood 84 mg/dL (70-110)
--- NOTE | 2025-01-26 10:01 | FL ---
EXAMINATION TYPE: FL guidance operating room, XR ankle complete RT DATE OF EXAM: 01/26/2025 CLINICAL HISTORY: Pain. TECHNIQUE: Fluoroscopy. 3 views right ankle. COMPARISON: None. FINDINGS: Fluoroscopic guidance was provided during arthrodesis procedure performed by Dr. Mcpherson. A total of 59 seconds of fluoroscopic time was utilized during the procedure and 3 spot intraoperative images are acquired. Images acquired show large fixating sidney through the distal tibia into the hindfoot and bony removal o f the distal fibula. TOTAL DAP = [id number]. IMPRESSION: As Above. [facility], , 01/26/2025 9:59 AM
[2025-01-26] MEDS: HYDROmorphone 0.5 MG/0.5 ML SYRINGE IVP PRN (10:31)
[2025-01-26] MEDS: LACTATED RINGERS 1,000 ML IV ONE (10:43)
[2025-01-26 12:14] LABS: Glucose,Whole Blood 116 mg/dL (70-110)
--- NOTE | 2025-01-26 12:36 | P.ANPRN ---
Procedure Note - Anesthesia - Nerve Block Performed Right Popliteal Single Time Out Performed: Yes Date of Procedure: 01/26/25 Procedure Start Time: 07:09 Procedure Stop Time: 07:14 Location of Patient: PreOp Indication: Acute Post-Operative Pain, Analgesia, Requested by Surgeon Sedation Type: Sedate with meaningful contact maintained Preparation: Sterile Prep Position: Left Lateral Catheter: None Needle Types: Pajunk Needle Gauge: 21 Ultrasound used to visualize needle placement: Yes Ultrasound used to observe medication spread: Yes Injectate: 0.5% Ropivacaine (see comment for volume) (Ropiv 20ml+Decadron 4ng.) Blood Aspirated: No Pain Paresthesia on Injection Noted: No Resistance on Injection: Normal Image Stored and Saved: Yes Events: Uneventful and Well Tolerated
--- NOTE | 2025-01-26 12:38 | P.ANPRN ---
Procedure Note - Anesthesia - Nerve Block Performed Right Adductor Canal Single Time Out Performed: Yes Date of Procedure: 01/26/25 Procedure Start Time: 07:14 Procedure Stop Time: 07:19 Location of Patient: PreOp Indication: Acute Post-Operative Pain, Analgesia, Requested by Surgeon Sedation Type: Sedate with meaningful contact maintained Preparation: Sterile Prep Position: Supine Catheter: None Needle Types: Pajunk Needle Gauge: 21 Ultrasound used to visualize needle placement: Yes Ultrasound used to observe medication spread: Yes Injectate: 0.5% Ropivacaine (see comment for volume) (Ropiv 20ml+Decadron 4mg) Blood Aspirated: No Pain Paresthesia on Injection Noted: No Resistance on Injection: Normal Image Stored and Saved: Yes Events: Uneventful and Well Tolerated
[2025-01-26] MEDS ORDERED: DEXTROSE 50% SYRINGE 50 ML IVP PRN ×2 (13:22)
[2025-01-26] MEDS ORDERED: MIDODRINE 5 MG TAB PO PRN (13:44)
[2025-01-26] MEDS ORDERED: MELATONIN 5 MG TABLET PO PRN (13:44)
--- NOTE | 2025-01-26 13:44 | P.CONS ---
History of Present Illness - Reason for Consult Consult date: 01/26/25 - History of Present Illness Patient is a 55-year-old male with past medical history of CKD stage IV, Buerger's disease, BPH, hypothyroidism, GERD, gout, depression, alcohol use disorder, chronic anemia, history of DVT status post IVC filter,, history of GI bleed requiring transfusion, A-fib on Eliquis, remote history of diabetes with normalization of A1c after gastric bypass surgery years ago, history of right ankle varus deformity, who presented for subtotal joint arthrodesis with bone marrow aspirate on the right ankle that was performed on 01/26. Hospitalist service was consulted for medical management, rehab placement. Patient's vitals after surgery reviewed, blood pressure is soft 107/58, he is on nasal cannula 2 L after surgery, satting well on 97%, heart rate in 50s 60s. No lab work from this admission available, his only blood glucose check was 160. Pertinent positives and negatives as discussed in HPI, a complete review of systems was performed and all other systems are negative. Patient seen and examined at bedside. Vital signs reviewed General: nontoxic, no distress, appears at stated age Derm: warm, dry Head: atraumatic, normocephalic, symmetric Eyes: EOMI, no lid lag, anicteric sclera, pupils equal round reactive to light ENT: Nose and ears atraumatic Neck: No thyromegaly, supple Mouth: no lip lesion, mucus membranes moist Cardiovascular: S1S2 reg, no murmur, no edema Lungs: clear to auscultation bilateral, no rhonchi, no rales, no wheeze, no accessory muscle use Abdominal: soft, nontender to palpation, no guarding, no appreciable organomegaly Ext: no gross muscle atrophy, muscle strength muscle strength 5 out of 5 in all 4 extremities, no contractures, postop dressing clean dry Neuro: CN II-XII grossly intact Psych: Alert, oriented, appropriate affect Assessment/Plan: Chronic hypotension: on PRN midodrin for SBP <100 at home CKD stage IV: Continue Farxiga History of gout, continue allopurinol 100 daily remote hx of Type II DM: Last A1c reported 5.1 by patient's caregiver History of vitamin B12, iron and folate deficiency: Continue vitamin B12 1000 mg, folic acid 1 mg daily, continue ferrous sulfate 325 daily Hypothyroidism: Continue home levothyroxine 125 BPH: Continue home tamsulosin 0.4 mg Lower extremity edema, on home torsemide 10 mg daily, will hold for now, patient is on IV fluids. Depression: Continue Prozac 40 mg daily s/p subtotal joint arthrodesis on the right ankle 01/26 -Your postop management, VTE prophylaxis, pain management -PT OT -Ordered morning blood work History of paroxysmal A-fib, continue Eliquis 2.5 twice daily Past Medical History Past Medical History: Atrial Fibrillation, Blood Disorder, Diabetes Mellitus, Deep Vein Thrombosis (DVT), Renal Disease, Sleep Apnea/CPAP/BIPAP, Thyroid Disorder Additional Past Medical History / Comment(s): no CPAP/BIPAP. buerger's disease. DVT left leg 2021. hx diabetes - resolved after weight loss in 2000; stage 3 kidney disease. History of Any Multi-Drug Resistant Organisms: None Reported Past Surgical History: Bariatric Surgery, Cholecystectomy, Hernia Repair, Orthopedic Surgery Additional Past Surgical History / Comment(s): gastric bypass; Umbilical hernia, 6x hernia surgeries, fell & broke right hip in 2018 while in [place] & had surg with pin- states right leg is 1 inch and 3/4 shorter than left leg. Past Anesthesia/Blood Transfusion Reactions: No Reported Reaction Additional Past Anesthesia/Blood Transfusion Reaction / Comm: hx blood transfusions, last one in 2022, no problems Smoking Status: Never smoker - Past Family History Father Family Medical History: Cancer Mother Family Medical History: Cancer Medications and Allergies Home Medications Medication Instructions Recorded Confirmed Type FLUoxetine HCL [PROzac] 40 mg PO DAILY 08/29/24 01/26/25 History Ferrous Sulfate [Feosol] 325 mg PO DAILY 08/29/24 01/26/25 History Folic Acid 1 mg PO DAILY 08/29/24 01/26/25 History Levothyroxine Sodium 125 mcg PO DAILY 08/29/24 01/26/25 History Tamsulosin [Flomax] 0.4 mg PO DAILY 08/29/24 01/26/25 History allopurinoL 100 mg PO DAILY 08/29/24 01/26/25 History calcitrioL 0.25 mcg PO DAILY 08/29/24 01/26/25 History Torsemide [Demadex] 10 mg PO DAILY 09/08/24 01/26/25 History Apixaban [Eliquis] 2.5 mg PO BID 01/23/25 01/26/25 History Cyanocobalamin (Vitamin B-12) 1,000 mcg PO DAILY 01/23/25 01/26/25 History [Vitamin B-12] Dapagliflozin Propanediol [Farxiga] 10 mg PO DAILY 01/23/25 01/26/25 History Allergies Allergy/AdvReac Type Severity Reaction Status Date / Time No Known Allergies Allergy Verified 01/26/25 06:27 Physical Exam Vitals: Vital Signs Temp Pulse Pulse Resp BP Pulse Ox 01/26/25 11:30 59 L 16 107/58 97 01/26/25 11:15 58 L 16 100/67 97 01/26/25 11:00 53 L 16 99/67 97 01/26/25 10:45 62 16 99/67 97 01/26/25 10:30 61 16 99/63 97 01/26/25 10:15 63 16 105/67 97 01/26/25 10:00 69 16 106/69 94 L 01/26/25 09:45 87 16 106/65 94 L 01/26/25 09:42 97.3 F L 89 14 110/70 93 L 01/26/25 07:20 79 17 107/71 99 01/26/25 06:41 97.7 F 86 18 108/61 99 Intake and Output 01/25/25 01/26/25 01/26/25 22:59 06:59 14:59 Intake Total 200 826 Output Total 100 Balance 200 726 Intake: IV 200 826 Output: Estimated Blood Loss 100 Other: Weight 101.9 kg Results Labs: Abnormal Lab Results - Last 24 Hours (Table) 01/26/25 Range/Units 12:13 POC Glucose (mg/dL) 116 H (70-110) mg/dL
[2025-01-26] MEDS ORDERED: LORazepam 0.5 MG TAB PO PRN (13:46)
[2025-01-26] MEDS ORDERED: LORazepam 1 MG TAB PO PRN ×3 (13:46)
--- NOTE | 2025-01-26 15:30 | P.OP ---
Date of Procedure: 01/26/25 Preoperative Diagnosis: 1. Varus deformity right ankle 2. Osteoarthritis right ankle and subtalar joint Postoperative Diagnosis: 1. Same 2. Same Procedure(s) Performed: 1. Right ankle arthrodesis 2. Subtalar arthrodesis right 3. Bone marrow aspiration Implants: Arthrex 12.5 mm x 210 mm tibiotalocalcaneal arthrodesis nail 15 cc of Arthrex allosync pure Anesthesia: LEYLA Surgeon: Junaid Mcpherson Estimated Blood Loss (ml): 100 Pathology: none sent Condition: stable Disposition: PACU Description of Procedure: Prior to the patient being brought to the op room, anesthesia administered a nerve block on the right lower extremity. The patient was brought into the op room placed on table supine position. Timeout was taken to confirm correct patient identifiers, correct laterality of surgery, and correct procedure. When all staff in the room was in agreement with the timeout, the patient was induced and placed under anesthesia. A well-padded tourniquet was placed on the right thigh. A wedge was placed underneath the right leg elevated and a wedge beneath the right hip to internally rotate the right leg. The right leg was then prepped and draped usual manner. Attention was directed over the anterior medial surface of the tibia, just proximal to the ankle joint. A small incision was made over the cortical bone. A trocar and cannula were then impacted into the medullary canal of the tibia. 60 cc of bone marrow aspirate was then wi thdrawn. The syringes were passed off the table to be spun down for bone marrow aspirate concentrate. The right leg was exsanguinated, the knee flexed, and the tourniquet inflated to 250 mmHg. Attention directed over the lateral ankle where a linear incision was made down the midline to the fibula and curved slightly anterior of the hindfoot. The incision was deepened down to the subcutaneous tissue careful to identify, void, and retracting neurovascular structures and cauterize any bleeding vessels. The soft tissue was sharply incised off the lateral malleolus both anteriorly and posteriorly. A saw was used to cut the fibula in a beveled fashion proximal to the ankle joint. The cut portion of the lateral malleolus was then freed from the surrounding soft tissue and removed. This was used to create a table cut off the dome of the talus. This was done in a wedge fashion with more being resected laterally the medially to correct the varus deformity of the ankle. Once that was completed the joint prep bur was used to remove the articular cartilage from the remaining portion of the dome of the talus as well as the articular surface of the tibia. Once these joint surfaces were prepped fluoroscopy was used to check the alignment of the ankle once reduced. When it was determined that the ankle would be properly positioned for fusion, the subtalar joint was addressed. The soft tissue was freed around the joint. Osteotomes were used to resect the articular cartilage. And then a smaller rotary bur was used to resect the subchondral bone and expose bleeding medullary bone. Fluoroscopy was used to assess the alignment of the ankle and hindfoot. The ankle and hindfoot were held in reduction. Visually the heel was in a rectus position in the same line as the tibia. Under fluoroscopy there was proper axial and sagittal alignment of the ankle joint. With the ankle in a corrected position, a large guidewire for the placement of the intramedullary nail. The entry point of the wire was lateral to the midline at the calcaneus. The wire was advanced into the talus. AP and lateral views under fluoroscopy showed the proper trajectory of the wire so the wire was advanced past the ankle joint into the shaft of the tibia. Final imaging showed proper placement of the wire on AP and lateral views. An incision was made at the entry point of the guidewire and bluntly dissected down to the calcaneus. The drill guide was placed over the wire and then additional wires were placed on the periphery of the drill guide to lock the guide and the correction in place. The large reamer was then placed over the wire and reamed down to proper depth. That wire was removed and the ball-tipped wire inserted into the shaft of the tibia. Starting with a 9 mm flexible reamer, the tibial canal was reamed until chatter was felt. Reaming was taken out to 13.5 mm for a 12.5 mm nail. Once the reaming was completed the allograft as well as the bone marrow concentrate were mixed together the back table and then placed between the arthrodesis segments of the ankle and subtalar joints. The nail was attached to the jig on the back table utilizing describe technique. The ball-tipped wire and the drill guide were removed. The nail was inserted into the drill hole and advanced and impacted into the tibia until it was at proper depth. Once the nail was at proper depth the jig was rotated posteriorly and the drill guide for the most distal posterior to anterior calcaneal screw was inserted down to the skin. A small stab incision was made through the skin and then the drill inserted through the guide and drilled past the nail and into the anterior process the calcaneus. The appropriate size screw was then inserted and advanced until the head was flush with the posterior aspect of the calcaneus. The jig was then rotated medially for the placement of the first tibial screw. The drill guide was inserted at the more distal hole for the appropriate size nail. A small stab incision was made with the guide contacted the skin. Drilling was performed bicortically. A cortical screw was inserted and advanced until the head engaged the medial cortex of the tibia. Fluoroscopic imaging showed that the screw was appropriately sized and bicortical. Then the drivers license examiner was placed on the distal arm of the jig for compression. It was then turned to compress the nail until it stopped turning. The jig was rotated posteriorly for the second posterior to anterior calcaneal screw. This is inserted utilizing the same technique as the first calcaneal screw. Then the jig was rotated medially for the most proximal tibial screw. This was done utilizing the same technique as the initial tibial screw. Final fluoroscopic imaging showed proper placement the hardware and AP and lateral views. There is maintain compression at the subtalar and ankle joints. The insertion jig was removed and then an end cap placed on the distal portion of the nail. The wounds were all flushed with antibiotic saline. Deep closure of the lateral wound was done with 2-0 Vicryl. Subcutaneous closure for all incisions was done with 3-0 Monocryl. And skin closure for all incisions was done with kelly. Arthrex jumpstart was placed over all the incisions and a bulky dressing was applied to the right ankle and foot. The tourniquet was released and capillary refill returned all digits on the right foot. A bulky [place] dressing was applied to the right leg. Then well molded plaster posterior mold/sugar-tong splint was applied to the leg. Anesthesia was reversed and the patient was taken recovery with vital signs stable.
[2025-01-26 16:37] LABS: Glucose,Whole Blood 175 mg/dL (70-110)
[2025-01-26] MEDS: INSULIN LISPRO (HumaLOG) 100 UNIT/ML 10 mL VL SQ SCH (18:08)
[2025-01-26 21:16] LABS: Glucose,Whole Blood 269 mg/dL (70-110)
[2025-01-26] MEDS: APIXABAN 2.5 MG TABLET PO SCH (21:32)
[2025-01-27 06:20] LABS: Glucose,Whole Blood 174 mg/dL (70-110)
[2025-01-27 07:32] LABS: ALT 6 U/L (4-49); AST 12 U/L (17-59); African American GFR (CKD) 50 (>60 ml/min/1.73 sqM); Albumin 2.8 g/dL (3.5-5.0); Albumin/Globulin Ratio 1.1; Alkaline Phosphatase 114 U/L (38-126); Anion Gap 9 mmol/L; Blood Urea Nitrogen 37 mg/dL (9-20); Calcium 8.1 mg/dL (8.4-10.2); Carbon Dioxide 18 mmol/L (22-30); Chloride 106 mmol/L (98-107); Globulin 2.5 g/dL; Glucose 146 mg/dL (74-99); Non-African American GFR(CKD) 43 (>60 ml/min/1.73 sqM); Sodium 133 mmol/L (137-145); Total Bilirubin 0.3 mg/dL (0.2-1.3); Total Protein 5.3 g/dL (6.3-8.2)
[2025-01-27 07:48] LABS: Anisocytosis Slight; Basophils % (A) 0 %; Eosinophils % (A) 0 %; HCT 34.3 % (39.0-53.0); HGB 10.1 gm/dL (13.0-17.5); Hypochromasia Marked; Lymphocytes # (A) 1.3 k/uL (1.0-4.8); Lymphocytes % (A) 15 %; MCH 29.7 pg (25.0-35.0); MCHC 29.3 g/dL (31.0-37.0); MCV 101.3 fL (80.0-100.0); Macrocytosis Slight; Mean Platelet Volume 8.7; Monocytes # (A) 0.5 k/uL (0-1.0); Monocytes % (A) 5 %; Neutrophils # (A) 6.8 k/uL (1.3-7.7); Neutrophils % (A) 79 %; Platelet Count 298 k/uL (150-450); RBC 3.38 m/uL (4.30-5.90); RDW 16.1 % (11.5-15.5); WBC 8.6 k/uL (3.8-10.6)
[2025-01-27] MEDS: CYANOCOBALAMIN 500 MCG TAB PO SCH (09:42)
[2025-01-27] MEDS: FLUoxetine HCL 20 MG CAP PO SCH (09:42)
[2025-01-27] MEDS: TAMSULOSIN 0.4 MG CAP.ER.24H PO SCH (09:42)
[2025-01-27] MEDS: LEVOTHYROXINE 125 MCG TAB PO SCH (09:42)
[2025-01-27] MEDS: DAPAGLIFLOZIN PROPANEDIOL 10 MG TABLET PO SCH (09:42)
[2025-01-27] MEDS: FOLIC ACID 1 MG TAB PO SCH (09:42)
[2025-01-27] MEDS: FERROUS SULFATE 325 MG TAB PO SCH (09:42)
[2025-01-27] MEDS: THIAMINE 100 MG TAB PO SCH (09:42)
[2025-01-27] MEDS: allopurinoL 100 MG TAB PO SCH (09:42)
[2025-01-27 12:00] LABS: Glucose,Whole Blood 124 mg/dL (70-110)
--- NOTE | 2025-01-27 13:39 | P.PN ---
Subjective Progress Note Date: 01/27/25 Patient is a 55-year-old male with past medical history of CKD stage IV, Buerger's disease, BPH, hypothyroidism, GERD, gout, depression, alcohol use disorder, chronic anemia, history of DVT status post IVC filter,, history of GI bleed requiring transfusion, A-fib on Eliquis, remote history of diabetes with normalization of A1c after gastric bypass surgery years ago, history of right ankle varus deformity, who presented for subtotal joint arthrodesis with bone marrow aspirate on the right ankle that was performed on 01/26. Hospitalist service was consulted for medical management, rehab placement. Patient's vitals after surgery reviewed, blood pressure is soft 107/58, he is on nasal cannula 2 L after surgery, satting well on 97%, heart rate in 50s 60s. Blood work reviewed, normal WBC, hemoglobin 10.1, around baseline. Platelet count normal. Sodium 133, 1.65, on baseline, blood glucose is controlled 3/ feeling well, was sitting in a wheelchair, no active complaints Pertinent positives and negatives as discussed in HPI, a complete review of systems was performed and all other systems are negative. Patient seen and examined at bedside. Vital signs reviewed General: nontoxic, no distress, appears at stated age Derm: warm, dry Head: atraumatic, normocephalic, symmetric Eyes: EOMI, no lid lag, anicteric sclera, pupils equal round reactive to light ENT: Nose and ears atraumatic Neck: No thyromegaly, supple Mouth: no lip lesion, mucus membranes moist Cardiovascular: S1S2 reg, no murmur, no edema Lungs: clear to auscultation bilateral, no rhonchi, no rales, no wheeze, no ac cessory muscle use Abdominal: soft, nontender to palpation, no guarding, no appreciable organomegaly Ext: no gross muscle atrophy, muscle strength muscle strength 5 out of 5 in all 4 extremities, no contractures, postop dressing clean dry Neuro: CN II-XII grossly intact Psych: Alert, oriented, appropriate affect Assessment/Plan: Hyponatremia recurrent, euvolemic -Sodium 133, monitor BMP Chronic hypotension: on PRN midodrin for SBP <100 at home CKD stage IV: Continue Farxiga, kidney function baseline History of gout, continue allopurinol 100 daily remote hx of Type II DM: Last A1c reported 5.1 by patient's caregiver History of vitamin B12, iron and folate deficiency: Continue vitamin B12 1000 mg, folic acid 1 mg daily, continue ferrous sulfate 325 daily Hypothyroidism: Continue home levothyroxine 125 BPH: Continue home tamsulosin 0.4 mg Lower extremity edema, on home torsemide 10 mg daily, will hold for now, patient is on IV fluids. Depression: Continue Prozac 40 mg daily s/p subtotal joint arthrodesis on the right ankle 01/26 -Your postop management, VTE prophylaxis, pain management -PT OT -medically stable for discharge History of paroxysmal A-fib, continue Eliquis 2.5 twice daily Alcohol use disorder -Drinks 5 days a week 4-6 drinks -CIWA with Ativan, thiamine, folic acid Objective - Vital Signs Vital signs: Vital Signs Temp 97.6 F 01/27/25 06:58 Pulse 64 01/27/25 09:42 Resp 18 01/27/25 09:42 BP 96/65 01/27/25 06:58 Pulse Ox 97 01/27/25 06:58 FiO2 Intake & Output 01/26/25 01/27/25 01/27/25 18:59 06:59 18:59 Intake Total 826 Output Total 100 900 Balance 726 -900 Weight 101.9 kg Intake: IV 826 Output: Urine 900 Estimated Blood Loss 100 Other: # Voids 1 - Labs CBC & Chem 7: 01/27/25 04:59 01/27/25 04:59 Labs: Abnormal Lab Results - Last 24 Hours (Table) 01/26/25 01/26/25 01/27/25 Range/Units 16:36 21:15 04:59 RBC 3.38 L (4.30-5.90) m/uL Hgb 10.1 L (13.0-17.5) gm/dL Hct 34.3 L (39.0-53.0) % MCV 101.3 H (80.0-100.0) fL MCHC 29.3 L (31.0-37.0) g/dL RDW 16.1 H (11.5-15.5) % Sodium (137-145) mmol/L Carbon Dioxide (22-30) mmol/L BUN (9-20) mg/dL Creatinine (0.66-1.25) mg/dL Glucose (74-99) mg/dL POC Glucose (mg/dL) 175 H 269 H (70-110) mg/dL Calcium (8.4-10.2) mg/dL AST (17-59) U/L Total Protein (6.3-8.2) g/dL Albumin (3.5-5.0) g/dL 01/27/25 01/27/25 01/27/25 Range/Units 04:59 06:19 11:58 RBC (4.30-5.90) m/uL Hgb (13.0-17.5) gm/dL Hct (39.0-53.0) % MCV (80.0-100.0) fL MCHC (31.0-37.0) g/dL RDW (11.5-15.5) % Sodium 133 L (137-145) mmol/L Carbon Dioxide 18 L (22-30) mmol/L BUN 37 H (9-20) mg/dL Creatinine 1.65 H (0.66-1.25) mg/dL Glucose 146 H (74-99) mg/dL POC Glucose (mg/dL) 174 H 124 H (70-110) mg/dL Calcium 8.1 L (8.4-10.2) mg/dL AST 12 L (17-59) U/L Total Protein 5.3 L (6.3-8.2) g/dL Albumin 2.8 L (3.5-5.0) g/dL
[2025-01-27 16:49] LABS: Glucose,Whole Blood 113 mg/dL (70-110)
[2025-01-27] MEDS: MORPHINE SULFATE 4 MG/ML SYRINGE IV PRN (20:05)
[2025-01-27 20:31] LABS: Glucose,Whole Blood 101 mg/dL (70-110)
--- NOTE | 2025-01-27 21:30 | P.PN ---
Subjective Progress Note Date: 01/27/25 Patient is POD#2 S/P tibiotalocalcaneal arthrodesis tight ankle. He is doing well. He was sitting in a chair at bedside. States he had very little pain. Denies N/V/F/C, calf pain or SOB Objective - Vital Signs Vital signs: Vital Signs Temp 97.6 F 01/27/25 14:00 Pulse 66 01/27/25 14:00 Resp 18 01/27/25 14:00 BP 102/69 01/27/25 14:00 Pulse Ox 94 L 01/27/25 14:00 FiO2 Intake & Output 01/27/25 01/27/25 01/28/25 06:59 18:59 06:59 Output Total 900 700 Balance -900 -700 Output: Urine 900 700 Other: Voiding Method External Catheter - Exam Gen: A/O x 3, No distress Skin: digits on right foot show normal coloration. No cyanosis. Neuro: diminished sensation in the digits secondary to residual effect of the nerve block Vascular: Dosalis pedis is palpable. CFT intact to all digits on the right foot MSK: ankle and foot remain in corrected alignment - Labs CBC & Chem 7: 01/27/25 04:59 01/27/25 04:59 Labs: Abnormal Lab Results - Last 24 Hours (Table) 01/26/25 01/27/25 01/27/25 Range/Units 21:15 04:59 04:59 RBC 3.38 L (4.30-5.90) m/uL Hgb 10.1 L (13.0-17.5) gm/dL Hct 34.3 L (39.0-53.0) % MCV 101.3 H (80.0-100.0) fL MCHC 29.3 L (31.0-37.0) g/dL RDW 16.1 H (11.5-15.5) % Sodium 133 L (137-145) mmol/L Carbon Dioxide 18 L (22-30) mmol/L BUN 37 H (9-20) mg/dL Creatinine 1.65 H (0.66-1.25) mg/dL Glucose 146 H (74-99) mg/dL POC Glucose (mg/dL) 269 H (70-110) mg/dL Calcium 8.1 L (8.4-10.2) mg/dL AST 12 L (17-59) U/L Total Protein 5.3 L (6.3-8.2) g/dL Albumin 2.8 L (3.5-5.0) g/dL 01/27/25 01/27/25 01/27/25 Range/Units 06:19 11:58 16:48 RBC (4.30-5.90) m/uL Hgb (13.0-17.5) gm/dL Hct (39.0-53.0) % MCV (80.0-100.0) fL MCHC (31.0-37.0) g/dL RDW (11.5-15.5) % Sodium (137-145) mmol/L Carbon Dioxide (22-30) mmol/L BUN (9-20) mg/dL Creatinine (0.66-1.25) mg/dL Glucose (74-99) mg/dL POC Glucose (mg/dL) 174 H 124 H 113 H (70-110) mg/dL Calcium (8.4-10.2) mg/dL AST (17-59) U/L Total Protein (6.3-8.2) g/dL Albumin (3.5-5.0) g/dL Assessment and Plan (1) [place]ov[place] deformity of foot, acquired Current Visit: Yes Status: Acute Code(s): M21.6X9 - OTHER ACQUIRED DEFORMITIES OF UNSPECIFIED FOOT SNOMED Code(s): 31011677 Plan: Patient is doing well thus far Continue strict NWB on the right L/E Keep leg elevated when resting Continue ice application Awaiting rehab placement
[2025-01-28] MEDS: HYDROcodone/APAP 10-325MG 1 EACH TAB PO PRN (02:07)
[2025-01-28 06:58] LABS: Glucose,Whole Blood 96 mg/dL (70-110)
--- NOTE | 2025-01-28 08:51 | P.PN ---
Subjective Progress Note Date: 01/28/25 Patient is POD#2 01/26/2025 S/P tibiotalocalcaneal arthrodesis tight ankle. He is doing well. He was resting in bed. He states he is more pain since the block wore off yesterday. Denies N/V/F/C, calf pain or SOB Objective - Vital Signs Vital signs: Vital Signs Temp 97.4 F L 01/28/25 01:58 Pulse 89 01/28/25 01:58 Resp 17 01/28/25 01:58 BP 108/69 01/28/25 01:58 Pulse Ox 97 01/28/25 01:58 FiO2 Intake & Output 01/27/25 01/28/25 01/28/25 18:59 06:59 18:59 Intake Total 165 Output Total 700 Balance -700 165 Intake: Oral 165 Output: Urine 700 Other: Voiding Method External Catheter - Exam Gen: A/O x 3, No distress Skin: digits on right foot show normal coloration except right first digit with signs of chronic perfusion deficiency. Neuro: Sensation is intact to light touch to all 5 digits. Vascular: Capillary refill under 2 seconds in all 5 digits. MSK: ankle and foot remain in corrected alignment - Labs CBC & Chem 7: 01/27/25 04:59 01/27/25 04:59 Labs: Abnormal Lab Results - Last 24 Hours (Table) 01/27/25 01/27/25 Range/Units 11:58 16:48 POC Glucose (mg/dL) 124 H 113 H (70-110) mg/dL Assessment and Plan Assessment: [place]ovarus deformity of foot, acquired Plan: Patient continues to do well in the postoperative period. Patient states the block wore off last night and has had an increased amount of pain. Discussed with nursing staff and will add Dilaudid every 2 hours as needed for pain. Continue strict NWB on the right L/E Keep leg elevated when resting Continue ice application Awaiting rehab placement
[2025-01-28 10:00] LABS: BUN/Creat Ratio 20.94 Ratio (12.00-20.00); Blood Urea Nitrogen 35.6 mg/dL (9.0-27.0); Calcium 7.9 mg/dL (8.7-10.3); Chloride 109 mmol/L (96-109); Glucose 89 mg/dL (70-110); Potassium 4.6 mmol/L (3.5-5.5); Sodium 137 mmol/L (135-145)
--- NOTE | 2025-01-28 11:23 | P.PN ---
Subjective Progress Note Date: 01/28/25 Patient is a 65-year-old male with past medical history of CKD stage IV, Buerger's disease, BPH, hypothyroidism, GERD, gout, depression, alcohol use disorder, chronic anemia, history of DVT status post IVC filter,, history of GI bleed requiring transfusion, A-fib on Eliquis, remote history of diabetes with normalization of A1c after gastric bypass surgery years ago, history of right ankle varus deformity, who presented for subtotal joint arthrodesis with bone marrow aspirate on the right ankle that was performed on 01/26. Hospitalist service was consulted for medical management, rehab placement. Patient's vitals after surgery reviewed, blood pressure is soft 107/58, he is on nasal cannula 2 L after surgery, satting well on 97%, heart rate in 50s 60s. Blood work reviewed, normal WBC, hemoglobin 10.1, around baseline. Platelet count normal. Sodium 133, 1.65, on baseline, blood glucose is controlled 3/ feeling well, was sitting in a wheelchair, no active complaints 3/2 please evaluate more pain this morning, primary team adjusting pain medications, otherwise no complaints Pertinent positives and negatives as discussed in HPI, a complete review of systems was performed and all other systems are negative. Patient seen and examined at bedside. Vital signs reviewed General: nontoxic, no distress, appears at stated age Derm: warm, dry Head: atraumatic, normocephalic, symmetric Eyes: EOMI, no lid lag, anicteric sclera, pupils equal round reactive to light ENT: Nose and ears atraumatic Neck: No thyromegaly, supple Mouth: no lip lesion, mucus membranes moist Cardiovascular: S1S2 reg, no murmur, no edema Lungs: clear to auscultation bilateral, no rhonchi, no rales, no wheeze, no accessory muscle use Abdominal: soft, nontender to palpation, no guarding, no appreciable or ganomegaly Ext: no gross muscle atrophy, muscle strength muscle strength 5 out of 5 in all 4 extremities, no contractures, postop dressing clean dry Neuro: CN II-XII grossly intact Psych: Alert, oriented, appropriate affect Assessment/Plan: Hyponatremia recurrent, euvolemic, resolved Chronic hypotension: on PRN midodrin for SBP <100 at home CKD stage IV: Continue Farxiga, kidney function baseline History of gout, continue allopurinol 100 daily remote hx of Type II DM: Last A1c reported 5.1 by patient's caregiver History of vitamin B12, iron and folate deficiency: Continue vitamin B12 1000 mg, folic acid 1 mg daily, continue ferrous sulfate 325 daily Hypothyroidism: Continue home levothyroxine 125 BPH: Continue home tamsulosin 0.4 mg Lower extremity edema, on home torsemide 10 mg daily, will hold for now, patient is on IV fluids. Depression: Continue Prozac 40 mg daily s/p subtotal joint arthrodesis on the right ankle 01/26 -Your postop management, VTE prophylaxis, pain management -PT OT -medically stable for discharge History of paroxysmal A-fib, continue Eliquis 2.5 twice daily Alcohol use disorder -Drinks 5 days a week 4-6 drinks -CIWA with Ativan, thiamine, folic acid Objective - Vital Signs Vital signs: Vital Signs Temp 97.4 F L 01/28/25 08:00 Pulse 78 01/28/25 08:00 Resp 18 01/28/25 08:00 BP 104/68 01/28/25 08:00 Pulse Ox 95 01/28/25 08:00 FiO2 Intake & Output 01/27/25 01/28/25 01/28/25 18:59 06:59 18:59 Intake Total 165 Output Total 700 Balance -700 165 Intake: Oral 165 Output: Urine 700 Other: Voiding Method External Catheter External Catheter - Labs CBC & Chem 7: 01/27/25 04:59 01/28/25 05:45 Labs: Abnormal Lab Results - Last 24 Hours (Table) 01/27/25 01/27/25 01/28/25 Range/Units 11:58 16:48 05:45 Carbon Dioxide 19.0 L (21.6-31.8) mmol/L BUN 35.6 H (9.0-27.0) mg/dL Creatinine 1.7 H (0.6-1.5) mg/dL Est GFR (CKD-EPI) 44 L (>=60) BUN/Creatinine Ratio 20.94 H (12.00-20.00) Ratio POC Glucose (mg/dL) 124 H 113 H (70-110) mg/dL Calcium 7.9 L (8.7-10.3) mg/dL
[2025-01-28 11:28] LABS: Glucose,Whole Blood 102 mg/dL (70-110)
[2025-01-28] MEDS: HYDROmorphone 0.5 MG/0.5 ML SYRINGE IVP PRN (11:45)
[2025-01-28 16:54] LABS: Glucose,Whole Blood 105 mg/dL (70-110)
[2025-01-28 21:09] LABS: Glucose,Whole Blood 90 mg/dL (70-110)
[2025-01-29 06:35] LABS: Glucose,Whole Blood 87 mg/dL (70-110)
[2025-01-29 11:33] LABS: Glucose,Whole Blood 81 mg/dL (70-110)
--- NOTE | 2025-01-29 12:20 | P.PN ---
Subjective Progress Note Date: 01/29/25 Patient is a 65-year-old male with past medical history of CKD stage IV, Buerger's disease, BPH, hypothyroidism, GERD, gout, depression, alcohol use disorder, chronic anemia, history of DVT status post IVC filter,, history of GI bleed requiring transfusion, A-fib on Eliquis, remote history of diabetes with normalization of A1c after gastric bypass surgery years ago, history of right ankle varus deformity, who presented for subtotal joint arthrodesis with bone marrow aspirate on the right ankle that was performed on 01/26. Hospitalist service was consulted for medical management, rehab placement. Patient tolerated surgery well on 01/26, recovering, pain is controlled, vital stable, blood work stable, medically cleared for discharge, obra submitted Pertinent positives and negatives as discussed in HPI, a complete review of systems was performed and all other systems are negative. Patient seen and examined at bedside. Vital signs reviewed General: nontoxic, no distress, appears at stated age Derm: warm, dry Head: atraumatic, normocephalic, symmetric Eyes: EOMI, no lid lag, anicteric sclera, pupils equal round reactive to light ENT: Nose and ears atraumatic Neck: No thyromegaly, supple Mouth: no lip lesion, mucus membranes moist Cardiovascular: S1S2 reg, no murmur, no edema Lungs: clear to auscultation bilateral, no rhonchi, no rales, no wheeze, no accessory muscle use Abdominal: soft, nontender to palpation, no guarding, no appreciable organomegaly Ext: no gross muscle atrophy, muscle strength muscle strength 5 out of 5 in all 4 extremities, no contractures, postop dressing clean dry Neuro: CN II-XII grossly intact Psych: Alert, oriented, appropriate affect Assessment/Plan: Hyponatremia recurrent, euvolemic, resolved Chronic hypotension: on PRN midodrin for SBP <100 at home CKD stage IV: Continue Farxiga, kidney function baseline History of gout, continue allopurinol 100 daily remote hx of Type II DM: Last A1c reported 5.1 by patient's caregiver History of vitamin B12, iron and folate deficiency: Continue vitamin B12 1000 mg, folic acid 1 mg daily, continue ferrous sulfate 325 daily Hypothyroidism: Continue home levothyroxine 125 BPH: Continue home tamsulosin 0.4 mg Lower extremity edema, on home torsemide 10 mg daily, will hold for now, patient is on IV fluids. Depression: Continue Prozac 40 mg daily s/p subtotal joint arthrodesis on the right ankle 01/26 -Your postop management, VTE prophylaxis, pain management -PT OT -medically stable for discharge History of paroxysmal A-fib, continue Eliquis 2.5 twice daily Alcohol use disorder -Drinks 5 days a week 4-6 drinks -CIWA with Ativan, thiamine, folic acid Objective - Vital Signs Vital signs: Vital Signs Temp 98.3 F 01/29/25 07:30 Pulse 70 01/29/25 07:30 Resp 16 01/29/25 07:30 BP 99/67 01/29/25 07:30 Pulse Ox 96 01/29/25 07:30 FiO2 Intake & Output 01/28/25 01/29/25 01/29/25 18:59 06:59 18:59 Output Total 600 500 Balance -600 -500 Output: Urine 600 500 Other: Voiding Method External Catheter External Catheter - Labs CBC & Chem 7: 01/27/25 04:59 01/28/25 05:45
--- NOTE | 2025-01-29 12:48 | P.PN ---
Subjective Progress Note Date: 01/29/25 Patient visited at bedside. Doing well. States that the oral [place] has been more effective at controlling his pain. At the time of the visit, patient had very little pain. Denies N/V/F/C, calf pain or SOB Awaiting rehab placement Objective - Vital Signs Vital signs: Vital Signs Temp 98.3 F 01/29/25 07:30 Pulse 70 01/29/25 07:30 Resp 16 01/29/25 07:30 BP 99/67 01/29/25 07:30 Pulse Ox 96 01/29/25 07:30 FiO2 Intake & Output 01/28/25 01/29/25 01/29/25 18:59 06:59 18:59 Output Total 600 500 Balance -600 -500 Output: Urine 600 500 Other: Voiding Method External Catheter External Catheter - Exam Gen: A/O x 3, No distress Skin: digits on right foot show normal coloration. No cyanosis. Neuro: sensation intact to all digits on the right foot Vascular: Dosalis pedis is palpable. CFT intact to all digits on the right foot MSK: ankle and foot remain in corrected alignment - Labs CBC & Chem 7: 01/27/25 04:59 01/28/25 05:45 Assessment and Plan (1) Cavovarus deformity of foot, acquired Current Visit: Yes Status: Acute Code(s): M21.6X9 - OTHER ACQUIRED DEFORMITIES OF UNSPECIFIED FOOT SNOMED Code(s): 68426434 Plan: Patient progressing well at this point Awaiting rehab placement
[2025-01-29 16:33] LABS: Glucose,Whole Blood 95 mg/dL (70-110)
[2025-01-29 20:02] LABS: Glucose,Whole Blood 105 mg/dL (70-110)
[2025-01-30 06:22] LABS: Glucose,Whole Blood 93 mg/dL (70-110)
--- NOTE | 2025-01-30 11:09 | P.PN ---
Subjective Progress Note Date: 01/30/25 Patient is a 65-year-old male with past medical history of CKD stage IV, Buerger's disease, BPH, hypothyroidism, GERD, gout, depression, alcohol use disorder, chronic anemia, history of DVT status post IVC filter,, history of GI bleed requiring transfusion, A-fib on Eliquis, remote history of diabetes with normalization of A1c after gastric bypass surgery years ago, history of right ankle varus deformity, who presented for subtotal joint arthrodesis with bone marrow aspirate on the right ankle that was performed on 01/26. Hospitalist service was consulted for medical management, rehab placement. Patient tolerated surgery well on 01/26, recovering, pain is controlled, vital stable, blood work stable, medically cleared for discharge, obra submitted Pertinent positives and negatives as discussed in HPI, a complete review of systems was performed and all other systems are negative. Patient seen and examined at bedside. Assessment/Plan: Hyponatremia recurrent, euvolemic, resolved Chronic hypotension: on PRN midodrin for SBP <100 at home CKD stage IV: Continue Farxiga, kidney function baseline History of gout, continue allopurinol 100 daily remote hx of Type II DM: Last A1c reported 5.1 by patient's caregiver History of vitamin B12, iron and folate deficiency: Continue vitamin B12 1000 mg, folic acid 1 mg daily, continue ferrous sulfate 325 daily Hypothyroidism: Continue home levothyroxine 125 BPH: Continue home tamsulosin 0.4 mg Lower extremity edema, on home torsemide 10 mg daily, will hold for now, patient is on IV fluids. Depression: Continue Prozac 40 mg daily s/p subtotal joint arthrodesis on the right ankle 01/26 -Your postop management, VTE prophylaxis, pain management -PT OT -medically stable for discharge History of paroxysmal A-fib, continue Eliquis 2.5 twice daily when cleared by surgery Alcohol use disorder -Drinks 5 days a week 4-6 drinks -CIWA with Ativan, thiamine, folic acid Objective - Vital Signs Vital signs: Vital Signs Temp 98.9 F 01/30/25 07:05 Pulse 69 01/30/25 07:05 Resp 15 01/30/25 07:05 BP 107/73 01/30/25 07:05 Pulse Ox 98 01/30/25 07:05 FiO2 Intake & Output 01/29/25 01/30/25 01/30/25 18:59 06:59 18:59 Intake Total 360 Output Total 600 951 Balance -600 -591 Intake: Oral 360 Output: Urine 600 950 Stool 1 Other: Voiding Method External Catheter External Catheter # Bowel Movements 1 - Exam Vital signs reviewed General: nontoxic, no distress, appears at stated age Derm: warm, dry Head: atraumatic, normocephalic, symmetric Eyes: EOMI, no lid lag, anicteric sclera, pupils equal round reactive to light ENT: Nose and ears atraumatic Neck: No thyromegaly, supple Mouth: no lip lesion, mucus membranes moist Cardiovascular: S1S2 reg, no murmur, no edema Lungs: clear to auscultation bilateral, no rhonchi, no rales, no wheeze, no accessory muscle use Abdominal: soft, nontender to palpation, no guarding, no appreciable organomegaly Ext: no gross muscle atrophy, muscle strength muscle strength 5 out of 5 in all 4 extremities, no contractures, postop dressing clean dry Neuro: CN II-XII grossly intact Psych: Alert, oriented, appropriate affect - Labs CBC & Chem 7: 01/27/25 04:59 01/28/25 05:45
[2025-01-30 11:36] LABS: Glucose,Whole Blood 107 mg/dL (70-110)
[2025-01-30 16:18] LABS: Glucose,Whole Blood 120 mg/dL (70-110)
[2025-01-30 19:51] LABS: Glucose,Whole Blood 109 mg/dL (70-110)
[2025-01-31 06:34] LABS: Glucose,Whole Blood 108 mg/dL (70-110)
[2025-01-31 11:37] LABS: Glucose,Whole Blood 95 mg/dL (70-110)
--- NOTE | 2025-01-31 16:18 | P.PN ---
Subjective Subjective No overnight events Pain well tolerated HPI: Patient is a 65-year-old male with past medical history of CKD stage IV, Buerger 's disease, BPH, hypothyroidism, GERD, gout, depression, alcohol use disorder, chronic anemia, history of DVT status post IVC filter,, history of GI bleed requiring transfusion, A-fib on Eliquis, remote history of diabetes with normalization of A1c after gastric bypass surgery years ago, history of right ankle varus deformity, who presented for subtotal joint arthrodesis with bone marrow aspirate on the right ankle that was performed on 01/26. Hospitalist service was consulted for medical management, rehab placement. Patient tolerated surgery well on 01/26, recovering, pain is controlled, vital stable, blood work stable, medically cleared for discharge, obra submitted Pertinent positives and negatives as discussed in HPI, a complete review of systems was performed and all other systems are negative. Patient seen and examined at bedside. Assessment/Plan: Hyponatremia recurrent, euvolemic, resolved Chronic hypotension: on PRN midodrin for SBP <100 at home CKD stage IV: Continue Farxiga, kidney function baseline History of gout, continue allopurinol 100 daily remote hx of Type II DM: Last A1c reported 5.1 by patient's caregiver History of vitamin B12, iron and folate deficiency: Continue vitamin B12 1000 mg, folic acid 1 mg daily, continue ferrous sulfate 325 daily Hypothyroidism: Continue home levothyroxine 125 BPH: Continue home tamsulosin 0.4 mg Lower extremity edema, on home torsemide 10 mg daily, will hold for now, patient is on IV fluids. Depression: Continue Prozac 40 mg daily s/p subtotal joint arthrodesis on the right ankle 01/26 -Your postop management, VTE prophylaxis, pain management -PT OT -medically stable for discharge History of paroxysmal A-fib, continue Eliquis 2.5 twice daily when cleared by surgery Alcohol use disorder -Drinks 5 days a week 4-6 drinks -CIWA with Ativan, thiamine, folic acid Objective - Vital Signs Vital signs: Vital Signs Temp 98.4 F 01/31/25 13:09 Pulse 74 01/31/25 13:09 Resp 17 01/31/25 13:09 BP 103/72 01/31/25 13:09 Pulse Ox 96 01/31/25 13:09 FiO2 Intake & Output 01/30/25 01/31/25 01/31/25 18:59 06:59 18:59 Intake Total 480 Output Total 2629 735 268 Balance -2331 -298 -950 Intake: Oral 480 Output: Urine 7363 299 924 Other: Voiding Method External Catheter External Catheter External Catheter # Bowel Movements 1 1 - Exam Vital signs reviewed General: nontoxic, no distress, appears at stated age Derm: warm, dry Head: atraumatic, normocephalic, symmetric Eyes: EOMI, no lid lag, anicteric sclera, pupils equal round reactive to light ENT: Nose and ears atraumatic Neck: No thyromegaly, supple Mouth: no lip lesion, mucus membranes moist Cardiovascular: S1S2 reg, no murmur, no edema Lungs: clear to auscultation bilateral, no rhonchi, no rales, no wheeze, no accessory muscle use Abdominal: soft, nontender to palpation, no guarding, no appreciable organomegaly Ext: no gross muscle atrophy, muscle strength muscle strength 5 out of 5 in all 4 extremities, no contractures, postop dressing clean dry Neuro: CN II-XII grossly intact Psych: Alert, oriented, appropriate affect - Labs CBC & Chem 7: 01/27/25 04:59 01/28/25 05:45 Labs: Abnormal Lab Results - Last 24 Hours (Table) 01/30/25 Range/Units 16:16 POC Glucose (mg/dL) 120 H (70-110) mg/dL
[2025-01-31 16:37] LABS: Glucose,Whole Blood 108 mg/dL (70-110)
[2025-01-31 20:04] LABS: Glucose,Whole Blood 92 mg/dL (70-110)
[2025-01-31 21:24] VITALS: RESP 18
[2025-02-01 01:58] VITALS: TEMP 98.4
[2025-02-01 06:20] LABS: Glucose,Whole Blood 106 mg/dL (70-110)
[2025-02-01 08:48] VITALS: BP 108/72; PULSE 75
[2025-02-01 11:39] LABS: Glucose,Whole Blood 88 mg/dL (70-110)
--- NOTE | 2025-02-01 12:02 | P.DS ---
Providers Date of admission: 01/26/25 05:50 Expected date of discharge: 02/01/25 Attending physician: Junaid Mcpherson DPM Consults: 01/26/25 09:40 Consult Physician Routine Consulting Provider: Tom Charlton Consult Reason/Comments: inpatient admit for rehab placement Do you want consulting provider notified?: Yes Primary care physician: Lisa Mcginnis - Discharge Diagnosis(es) (1) Cavovarus deformity of foot, acquired Current Visit: Yes Status: Acute Hospital Course: Patient was admitted on 01/26/25 following surgery to correct a deformity of the right ankle. Admission required for rehab placement following surgery Patient's pain was well controlled until the nerve block wore off. He was not responding to IV Morphine and was changed to [place] 10/325, which was more effective at pain control Patient resumed Eliquis the day following surgery due to previous h/o DVT. Patient under [facility] protocol PT/OT worked with the patient while admitted Overall patient did well during admission without any complicating factors Assessment: S/P right tibiotalocalcaneal arthrodesis. Health Concerns: CKD stage IV, Buerger's disease, BPH, hypothyroidism, GERD, gout, depression, alcohol use disorder, chronic anemia, history of DVT status post IVC filter,, history of GI bleed requiring transfusion, A-fib on Eliquis, remote history of diabetes with normalization of A1c after gastric bypass surgery years ago, Pertinent Studies: Blood glucose levels remained fairly stable during admission Procedures: Right tibiotalocalcaneal arthrodesis on 01/26/25 Patient Condition at Discharge: Good Plan - Discharge Summary Discharge Rx Participant: No New Discharge Prescriptions: New Thiamine [Vitamin B-1] 100 mg PO DAILY tab Melatonin 5 mg PO HS PRN tab PRN Reason: Insomnia Continue Tamsulosin [Flomax] 0.4 mg PO DAILY Ferrous Sulfate [Feosol] 325 mg PO DAILY Levothyroxine Sodium 125 mcg PO DAILY Folic Acid 1 mg PO DAILY FLUoxetine HCL [PROzac] 40 mg PO DAILY calcitrioL 0.25 mcg PO DAILY Torsemide [Demadex] 10 mg PO DAILY allopurinoL 100 mg PO DAILY Apixaban [Eliquis] 2.5 mg PO BID Dapagliflozin Propanediol [Farxiga] 10 mg PO DAILY Cyanocobalamin (Vitamin B-12) [Vitamin B-12] 1,000 mcg PO DAILY Discharge Medication List FLUoxetine HCL [PROzac] 40 mg PO DAILY 08/29/24 [History] Ferrous Sulfate [Feosol] 325 mg PO DAILY 08/29/24 [History] Folic Acid 1 mg PO DAILY 08/29/24 [History] Levothyroxine Sodium 125 mcg PO DAILY 08/29/24 [History] Tamsulosin [Flomax] 0.4 mg PO DAILY 08/29/24 [History] allopurinoL 100 mg PO DAILY 08/29/24 [History] calcitrioL 0.25 mcg PO DAILY 08/29/24 [History] Torsemide [Demadex] 10 mg PO DAILY 09/08/24 [History] Apixaban [Eliquis] 2.5 mg PO BID 01/23/25 [History] Cyanocobalamin (Vitamin B-12) [Vitamin B-12] 1,000 mcg PO DAILY 01/23/25 [History] Dapagliflozin Propanediol [Farxiga] 10 mg PO DAILY 01/23/25 [History] Melatonin 5 mg PO HS PRN tab 02/01/25 [Rx] Thiamine [Vitamin B-1] 100 mg PO DAILY tab 02/01/25 [Rx] Follow up Appointment(s)/Referral(s): Junaid Mcpherson DPM [Doctor of Osteopathic Medicine] - 02/01/25 Patient Instructions/Handouts: *Surgery [facility] - ([facility]) Discharge Instructins Foot Surgery Activity/Diet/Wound Care/Special Instructions: Keep the splint clean, dry and intact. Do not remove. Strict NWB right leg Keep right leg elevated when resting Pain medications as needed Follow-up with Dr. Mcpherson 1 week after surgery Discharge Disposition: TRANSFER TO SNF/ECF
--- NOTE | 2025-02-01 14:13 | P.PN ---
Subjective Progress Note Date: 02/01/25 No new complaints. Medically cleared for discharge. Gen: In NAD, non-toxic HEENT: normocephalic, atraumatic, hearing acuity is intant, mucous membranes moist CVS: perfusing all extremities well, no pitting edema, Respiratory: symmetric chest expansion, no accessory muscle use, GI: soft, NTTP, ND, : no suprapubic tenderness, no CVA tenderness MSK/Derm: no rashes, cyanosis Neuro: CN II-XII intact, no motor weakness, Psych: cooperative, euthymic mood, judgment and insight is intact Assessment/plan: Hyponatremia recurrent, euvolemic, resolved Chronic hypotension: on PRN midodrin for SBP <100 at home CKD stage IV: Continue Farxiga, kidney function baseline History of gout, continue allopurinol 100 daily remote hx of Type II DM: Last A1c reported 5.1 by patient's caregiver History of vitamin B12, iron and folate deficiency: Continue vitamin B12 1000 mg, folic acid 1 mg daily, continue ferrous sulfate 325 daily Hypothyroidism: Continue home levothyroxine 125 BPH: Continue home tamsulosin 0.4 mg Lower extremity edema, on home torsemide 10 mg daily, will hold for now, patient is on IV fluids. Depression: Continue Prozac 40 mg daily s/p subtotal joint arthrodesis on the right ankle 01/26 -Your postop management, VTE prophylaxis, pain management -PT OT -medically stable for discharge History of paroxysmal A-fib, continue Eliquis 2.5 twice daily when cleared by surgery Alcohol use disorder -Drinks 5 days a week 4-6 drinks -CIWA with Ativan, thiamine, folic acid Objective - Vital Signs Vital signs: Vital Signs Temp 98.4 F 02/01/25 07:00 Pulse 75 02/01/25 08:18 Resp 18 02/01/25 08:18 BP 108/72 02/01/25 07:00 Pulse Ox 97 02/01/25 07:00 FiO2 Intake & Output 01/31/25 02/01/25 02/01/25 18:59 06:59 18:59 Intake Total 740 Output Total 850 800 Balance -850 -60 Intake: Oral 740 Output: Urine 850 800 Other: Voiding Method External Catheter External Catheter External Catheter - Labs CBC & Chem 7: 01/27/25 04:59 01/28/25 05:45
== END 2025-02-01 14:58 ==
LOC: OR 05:49 → 4SSUR 05:50 → OR 05:50 → 4SSUR 11:31
PROVIDERS: ADMIT Podiatrist; ATTEND Podiatrist
DX: M21.171 Varus deformity, not elsewhere classified, right ankle (principal); M19.071 Primary osteoarthritis, right ankle and foot; E87.1 Hypo-osmolality and hyponatremia; G89.18 Other acute postprocedural pain; E03.9 Hypothyroidism, unspecified; N18.4 Chronic kidney disease, stage 4 (severe); I95.89 Other hypotension; E53.8 Deficiency of other specified B group vitamins; G47.30 Sleep apnea, unspecified; I73.1 Thromboangiitis obliterans [Buerger's disease]; K21.9 Gastro-esophageal reflux disease without esophagitis; F32.A Depression, unspecified; I48.0 Paroxysmal atrial fibrillation; N40.0 Benign prostatic hyperplasia without lower urinary tract symptoms; M10.9 Gout, unspecified; Z79.01 Long term (current) use of anticoagulants; Z79.84 Long term (current) use of oral hypoglycemic drugs; Z86.39 Personal history of other endocrine, nutritional and metabolic disease; Z79.890 Hormone replacement therapy; Z79.899 Other long term (current) drug therapy; Z86.718 Personal history of other venous thrombosis and embolism; Z98.84 Bariatric surgery status
CPT/HCPCS: 28725; 97530 ×4; 97162; 97166; 64447; 64445; 80053; 85025; 83036; 73610; 27870; G0378 ×7; C1713; J2250; J0330; J2270 ×2; J1100; J2710; J0690 ×2; J2405; J2003; J3010; J1644; J1171 ×3; J2795; J2704; J2371; J1596

== ENCOUNTER 2025-02-27 15:24 | Inpatient (IN) | payer MEDICARE ==
--- NOTE | 2025-02-27 16:02 | ED ---
Nausea/Vomiting/Diarrhea HPI - General Chief complaint: Nausea/Vomiting/Diarrhea Stated complaint: Urinary issues Time Seen by Provider: 02/27/25 15:28 Source: EMS, RN notes reviewed, old records reviewed Mode of arrival: EMS Limitations: no limitations - History of Present Illness Initial comments: This is a 65 male to ER for nausea vomiting diarrhea decreased urination with increasing alcohol use recently. Patient states has been drinking more than normal and more than he would like to. States that he thinks he is sick he cannot stop vomiting and he has not been able to pee complaint: nausea, vomiting -: days(s) Description of Vomiting: watery, bilious Associated Abdominal Pain: Yes Location: diffuse Severity: mild Severity scale (1-10): 2 Quality: cramping Consistency: constant Improves with: none Worsens with: none Associated Symptoms: loss of appetite, malaise, nausea/vomiting, weakness - Related Data Home Medications Medication Instructions Recorded Confirmed FLUoxetine HCL [PROzac] 40 mg PO DAILY 08/29/24 02/27/25 Ferrous Sulfate [Feosol] 325 mg PO DAILY 08/29/24 02/27/25 Folic Acid 1 mg PO DAILY 08/29/24 02/27/25 Levothyroxine Sodium 125 mcg PO DAILY 08/29/24 02/27/25 Tamsulosin [Flomax] 0.4 mg PO DAILY 08/29/24 02/27/25 allopurinoL 100 mg PO DAILY 08/29/24 02/27/25 calcitrioL 0.25 mcg PO DAILY 08/29/24 02/27/25 Apixaban [Eliquis] 2.5 mg PO BID 01/23/25 02/27/25 Cyanocobalamin (Vitamin B-12) 1,000 mcg PO DAILY 01/23/25 02/27/25 [Vitamin B-12] Dapagliflozin Propanediol [Farxiga] 10 mg PO DAILY 01/23/25 02/27/25 Previous Rx's Medication Instructions Recorded Melatonin 5 mg PO HS PRN tab 02/01/25 Thiamine [Vitamin B-1] 100 mg PO DAILY tab 02/01/25 Darbepoetin Epifanio [Aranesp] 40 mcg SQ Q7D #4 each 03/05/25 Metoprolol Tartrate [Lopressor] 25 mg PO BID #60 tab 03/05/25 Multivitamins, Thera [Multivitamin 1 each PO DAILY tab 03/05/25 (formulary)] Pantoprazole Sodium [Protonix] 40 mg PO DAILY #60 tab 03/05/25 Allergies Allergy/AdvReac Type Severity Reaction Status Date / Time No Known Allergies Allergy Verified 02/27/25 17:50 Review of Systems ROS Statement: Those systems with pertinent positive or pertinent negative responses have been documented in the HPI. ROS Other: All systems not noted in ROS Statement are negative. Past Medical History Past Medical History: Atrial Fibrillation, Blood Disorder, Diabetes Mellitus, Deep Vein Thrombosis (DVT), Renal Disease, Sleep Apnea/CPAP/BIPAP, Thyroid Disorder Additional Past Medical History / Comment(s): no CPAP/BIPAP. buerger's disease. DVT left leg 2021. hx diabetes - resolved after weight loss in 2000; stage 3 kidney disease. History of Any Multi-Drug Resistant Organisms: None Reported Past Surgical History: Bariatric Surgery, Cholecystectomy, Hernia Repair, Orthopedic Surgery Additional Past Surgical History / Comment(s): gastric bypass; Umbilical hernia, 6x hernia surgeries, fell & broke right hip in 2018 while in [place] & had surg with pin- states right leg is 1 inch and 3/4 shorter than left leg. Past Anesthesia/Blood Transfusion Reactions: No Reported Reaction Additional Past Anesthesia/Blood Transfusion Reaction / Comment(s): hx blood t ransfusions, last one in 2022, no problems Past Psychological History: Depression Smoking Status: Never smoker Past Alcohol Use History: None Reported Past Drug Use History: None Reported - Past Family History Father Family Medical History: Cancer Mother Family Medical History: Cancer General Exam Limitations: no limitations General appearance: alert, anxious, in distress Head exam: Present: atraumatic, normocephalic, normal inspection Eye exam: Present: normal appearance, PERRL, EOMI. Absent: scleral icterus, conjunctival injection, periorbital swelling ENT exam: Present: normal exam, mucous membranes moist Neck exam: Present: normal inspection. Absent: tenderness, meningismus, lymphadenopathy Respiratory exam: Present: normal lung sounds bilaterally. Absent: respiratory distress, wheezes, rales, rhonchi, stridor Cardiovascular Exam: Present: regular rate, normal rhythm, normal heart sounds. Absent: systolic murmur, diastolic murmur, rubs, gallop, clicks GI/Abdominal exam: Present: soft, normal bowel sounds. Absent: distended, tenderness, guarding, rebound, rigid Extremities exam: Present: normal inspection, full ROM, normal capillary refill. Absent: tenderness, pedal edema, joint swelling, calf tenderness Back exam: Present: normal inspection Neurological exam: Present: alert, oriented X3, CN II-XII intact Psychiatric exam: Present: normal affect, normal mood Skin exam: Present: warm, dry, intact, normal color. Absent: rash Course Vital Signs 02/27/25 02/27/25 02/27/25 15:27 16:06 18:14 Temperature 98.2 F Pulse Rate 93 99 101 H Pulse Rate [ Communication Analyst ] Respiratory 20 19 19 Rate Blood Pressure 109/67 92/63 119/73 Blood Pressure [Left Arm] O2 Sat by Pulse 96 90 L 96 Oximetry 02/27/25 02/27/25 02/28/25 21:42 23:35 01:06 Temperature Pulse Rate 98 94 92 Pulse Rate [ Communication Analyst ] Respiratory 20 20 20 Rate Blood Pressure 112/73 116/81 105/72 Blood Pressure [Left Arm] O2 Sat by Pulse 96 97 98 Oximetry 02/28/25 02/28/25 02/28/25 04:00 07:56 09:09 Temperature 98.4 F 97.1 F L Pulse Rate 93 101 H Pulse Rate [ 97 Communication Analyst ] Respiratory 12 17 Rate Blood Pressure 104/71 117/80 Blood Pressure 115/76 [Left Arm] O2 Sat by Pulse 100 99 97 Oximetry 02/28/25 02/28/25 02/28/25 11:11 12:32 13:54 Temperature Pulse Rate 99 105 H 101 H Pulse Rate [ Communication Analyst ] Respiratory 17 25 H 16 Rate Blood Pressure 111/71 112/92 103/70 Blood Pressure [Left Arm] O2 Sat by Pulse 96 99 97 Oximetry 02/28/25 18:08 Temperature 97.7 F Pulse Rate 77 Pulse Rate [ Communication Analyst ] Respiratory 18 Rate Blood Pressure 113/75 Blood Pressure [Left Arm] O2 Sat by Pulse 97 Oximetry - Reevaluation(s) Reevaluation #1: 02/27/25 16:02 Medical records reviewed Reevaluation #2: 03/06/25 20:22 Symptoms improved here in the ER Reevaluation #3: Patient informed of results questions answered Reevaluation #4: Was pt. sent in by a medical professional or institution (ADRIANA Rasmussen, LABORATORY ANIMAL FACILITY SUPERVISOR, urgent care, hospital, or [facility]...) When possible be specific @ -no Did you speak to anyone other than the patient for history (EMS, parent, family, police, friend...)? What history was obtained from this source @ -no Did you review nursing and triage notes (agree or disagree)? Why? @ -agree Are old charts reviewed (outside hosp., previous admission, EMS record, old EKG, old radiological studies, urgent care reports/EKG's, [facility] records)? Report findings @ -yes Differential Diagnosis (chest pain, altered mental status, abdominal pain women, abdominal pain men, vaginal bleeding, weakness, fever, dyspnea, syncope, h eadache, dizziness, GI bleed, back pain, seizure, CVA, palpatations, mental health, musculoskeletal)? @ -prior EKG interpreted by me (3pts min.). @ -yes X-rays interpreted by me (1pt min.). @ -yes negative for acute disease CT interpreted by me (1pt min.). @ -no U/S interpreted by me (1pt. min.). @ -no What testing was considered but not performed or refused? (CT, X-rays, U/S, labs)? Why? @ -none What meds were considered but not given or refused? Why? @ -none Did you discuss the management of the patient with other professionals (professionals i.e. ADRIANA Rasmussen, LABORATORY ANIMAL FACILITY SUPERVISOR, lab, RT, psych nurse, social media project manager, factory supervisor, teacher, staff antisubmarine officer, porter sample case)? Give summary @ -no Was smoking cessation discussed for >3mins.? @ -no Was critical care preformed (if so, how long)? @ -no Were there social determinants of health that impacted care today? How? (Homelessness, low income, unemployed, alcoholism, drug addiction, transportation, low edu. Level, literacy, decrease access to med. care, fdc, rehab)? @ -none Was there de-escalation of care discussed even if they declined (Discuss DNR or withdrawal of care, Hospice)? DNR status @ -no What co-morbidities impacted this encounter? (DM, HTN, Smoking, COPD, CAD, Cancer, CVA, ARF, Chemo, Hep., AIDS, mental health diagnosis, sleep apnea, morbid obesity)? @ -none Was patient admitted / discharged? Hospital course, mention meds given and route, prescriptions, significant lab abnormalities, going to OR and other pertinent info. @ - Undiagnosed new problem with uncertain prognosis? @ -no Drug Therapy requiring intensive monitoring for toxicity (Heparin, Nitro, Insulin, Cardizem)? @ -no Were any procedures done? @ -no Diagnosis/symptom? @ - Acute, or Chronic, or Acute on Chronic? @ -Acute Uncomplicated (without systemic symptoms) or Complicated (systemic symptoms)? @ -Complicated Side effects of treatment? @ -no Exacerbation, Progression, or Severe Exacerbation? @ -exacerbation Poses a threat to life or bodily function? How? (Chest pain, USA, NE, pneumonia, PE, COPD, DKA, ARF, appy, cholecystitis, CVA, Diverticulitis, Homicidal, Suicidal, threat to staff... and all critical care pts) @ -yes Reevaluation #5: Differential Weakness: Hypoglycemia, shock, sepsis, hyponatremia, anemia, infection, NE, ETOH, adverse medicine reaction, overdose, stroke, this is not meant to be an all-inclusive list. - Consultations Consultation #1: Spoke with admitting physicians who agreed to admit this patient Medical Decision Making - Medical Decision Making 65 male to the ER for evaluation patient presents today for evaluation regards to nausea vomiting diarrhea presenting in alcohol ketoacidosis and will admit for supportive care - Lab Data Result diagrams: 03/05/25 05:47 03/05/25 05:47 Lab Results 02/27/25 02/27/25 02/27/25 Range/Units 15:59 15:59 15:59 WBC 9.6 (3.8-10.6) k/uL RBC 3.38 L (4.30-5.90) m/uL Hgb 10.1 L (13.0-17.5) gm/dL Hct 32.6 L (39.0-53.0) % MCV 96.5 (80.0-100.0) fL MCH 30.0 (25.0-35.0) pg MCHC 31.0 (31.0-37.0) g/dL RDW 15.8 H (11.5-15.5) % Plt Count 143 L D (150-450) k/uL MPV 8.5 Neutrophils % 86 % Lymphocytes % 9 % Monocytes % 3 % Eosinophils % 1 % Basophils % 0 % Neutrophils # 8.2 H (1.3-7.7) k/uL Lymphocytes # 0.9 L (1.0-4.8) k/uL Monocytes # 0.3 (0-1.0) k/uL Eosinophils # 0.1 (0-0.7) k/uL Basophils # 0.0 (0-0.2) k/uL PT 12.8 H (10.0-12.5) sec INR 1.2 H (<1.2) APTT 28.6 (22.0-30.0) sec Sodium 128 L (137-145) mmol/L Potassium 5.5 H (3.5-5.1) mmol/L Chloride 97 L (98-107) mmol/L Carbon Dioxide 8 L* (22-30) mmol/L Anion Gap 23 mmol/L BUN 93 H (9-20) mg/dL Creatinine 7.00 H (0.66-1.25) mg/dL Est GFR (CKD-EPI)AfAm 9 (>60 ml/min/1.73 sqM) Est GFR (CKD-EPI)NonAf 7 (>60 ml/min/1.73 sqM) Glucose 147 H (74-99) mg/dL Lactic Ac Sepsis Rflx Plasma Lactic Acid Kip (0.7-2.0) mmol/L Calcium 6.6 L (8.4-10.2) mg/dL Phosphorus 6.7 H (2.5-4.5) mg/dL Magnesium 1.9 (1.6-2.3) mg/dL Total Bilirubin 0.5 (0.2-1.3) mg/dL AST 45 (17-59) U/L ALT 15 (4-49) U/L Alkaline Phosphatase 169 H (38-126) U/L Creatine Kinase (55-170) U/L Total Protein 5.7 L (6.3-8.2) g/dL Albumin 3.2 L (3.5-5.0) g/dL Lipase 102 (23-300) U/L Urine Color Urine Appearance (Clear) Urine pH (5.0-8.0) Ur Specific [place] (1.001-1.035) Urine Protein (Negative) Urine Glucose (UA) (Negative) Urine Ketones (Negative) Urine Blood (Negative) Urine Nitrite (Negative) Urine Bilirubin (Negative) Urine Urobilinogen (<2.0) mg/dL Ur Leukocyte Esterase (Negative) Urine RBC (0-5) /hpf Urine WBC (0-5) /hpf Urine WBC Clumps (None) /hpf Ur Squamous Epith Cells (0-4) /hpf Urine Bacteria (None) /hpf Urine Mucus (None) /hpf Urine Yeast (Budding) (None) /hpf Serum Alcohol 74 mg/dL 02/27/25 02/27/25 02/27/25 Range/Units 15:59 15:59 16:52 WBC (3.8-10.6) k/uL RBC (4.30-5.90) m/uL Hgb (13.0-17.5) gm/dL Hct (39.0-53.0) % MCV (80.0-100.0) fL MCH (25.0-35.0) pg MCHC (31.0-37.0) g/dL RDW (11.5-15.5) % Plt Count (150-450) k/uL MPV Neutrophils % % Lymphocytes % % Monocytes % % Eosinophils % % Basophils % % Neutrophils # (1.3-7.7) k/uL Lymphocytes # (1.0-4.8) k/uL Monocytes # (0-1.0) k/uL Eosinophils # (0-0.7) k/uL Basophils # (0-0.2) k/uL PT (10.0-12.5) sec INR (<1.2) APTT (22.0-30.0) sec Sodium (137-145) mmol/L Potassium (3.5-5.1) mmol/L Chloride (98-107) mmol/L Carbon Dioxide (22-30) mmol/L Anion Gap mmol/L BUN (9-20) mg/dL Creatinine (0.66-1.25) mg/dL Est GFR (CKD-EPI)AfAm (>60 ml/min/1.73 sqM) Est GFR (CKD-EPI)NonAf (>60 ml/min/1.73 sqM) Glucose (74-99) mg/dL Lactic Ac Sepsis Rflx Y Plasma Lactic Acid Kip 4.6 H* (0.7-2.0) mmol/L Calcium (8.4-10.2) mg/dL Phosphorus (2.5-4.5) mg/dL Magnesium (1.6-2.3) mg/dL Total Bilirubin (0.2-1.3) mg/dL AST (17-59) U/L ALT (4-49) U/L Alkaline Phosphatase (38-126) U/L Creatine Kinase 399 H (55-170) U/L Total Protein (6.3-8.2) g/dL Albumin (3.5-5.0) g/dL Lipase (23-300) U/L Urine Color Urine Appearance (Clear) Urine pH (5.0-8.0) Ur Specific [place] (1.001-1.035) Urine Protein (Negative) Urine Glucose (UA) (Negative) Urine Ketones (Negative) Urine Blood (Negative) Urine Nitrite (Negative) Urine Bilirubin (Negative) Urine Urobilinogen (<2.0) mg/dL Ur Leukocyte Esterase (Negative) Urine RBC (0-5) /hpf Urine WBC (0-5) /hpf Urine WBC Clumps (None) /hpf Ur Squamous Epith Cells (0-4) /hpf Urine Bacteria (None) /hpf Urine Mucus (None) /hpf Urine Yeast (Budding) (None) /hpf Serum Alcohol mg/dL 02/27/25 Range/Units 17:28 WBC (3.8-10.6) k/uL RBC (4.30-5.90) m/uL Hgb (13.0-17.5) gm/dL Hct (39.0-53.0) % MCV (80.0-100.0) fL MCH (25.0-35.0) pg MCHC (31.0-37.0) g/dL RDW (11.5-15.5) % Plt Count (150-450) k/uL MPV Neutrophils % % Lymphocytes % % Monocytes % % Eosinophils % % Basophils % % Neutrophils # (1.3-7.7) k/uL Lymphocytes # (1.0-4.8) k/uL Monocytes # (0-1.0) k/uL Eosinophils # (0-0.7) k/uL Basophils # (0-0.2) k/uL PT (10.0-12.5) sec INR (<1.2) APTT (22.0-30.0) sec Sodium (137-145) mmol/L Potassium (3.5-5.1) mmol/L Chloride (98-107) mmol/L Carbon Dioxide (22-30) mmol/L Anion Gap mmol/L BUN (9-20) mg/dL Creatinine (0.66-1.25) mg/dL Est GFR (CKD-EPI)AfAm (>60 ml/min/1.73 sqM) Est GFR (CKD-EPI)NonAf (>60 ml/min/1.73 sqM) Glucose (74-99) mg/dL Lactic Ac Sepsis Rflx Plasma Lactic Acid Kip (0.7-2.0) mmol/L Calcium (8.4-10.2) mg/dL Phosphorus (2.5-4.5) mg/dL Magnesium (1.6-2.3) mg/dL Total Bilirubin (0.2-1.3) mg/dL AST (17-59) U/L ALT (4-49) U/L Alkaline Phosphatase (38-126) U/L Creatine Kinase (55-170) U/L Total Protein (6.3-8.2) g/dL Albumin (3.5-5.0) g/dL Lipase (23-300) U/L Urine Color Colorless Urine Appearance Cloudy (Clear) Urine pH 5.0 (5.0-8.0) Ur Specific [place] 1.012 (1.001-1.035) Urine Protein Trace H (Negative) Urine Glucose (UA) Negative (Negative) Urine Ketones Negative (Negative) Urine Blood Small H (Negative) Urine Nitrite Negative (Negative) Urine Bilirubin Negative (Negative) Urine Urobilinogen <2.0 (<2.0) mg/dL Ur Leukocyte Esterase Large H (Negative) Urine RBC 6 H (0-5) /hpf Urine WBC 66 H (0-5) /hpf Urine WBC Clumps Few H (None) /hpf Ur Squamous Epith Cells <1 (0-4) /hpf Urine Bacteria Rare H (None) /hpf Urine Mucus Rare H (None) /hpf Urine Yeast (Budding) Moderate H (None) /hpf Serum Alcohol mg/dL - Radiology Data Radiology results: report reviewed (Ultrasound gallbladder negative for acute disease), image reviewed Critical Care Time Critical Care Time: Yes Total Critical Care Time: 31 Disposition Clinical Impression: Dehydration, Gastroenteritis, Alcoholic ketoacidosis, ASHA (acute kidney injury) Disposition: ADMITTED IP TO THIS HOSP Condition: Fair Is patient prescribed a controlled substance at d/c from ED?: No Time of Disposition: 17:30
[2025-02-27] MEDS: SODIUM CHLORIDE 0.9% 1,000 ML IV STA (16:09)
[2025-02-27] MEDS: SODIUM CHLORIDE 0.9% 500 ML 500 ML IV STA (16:09)
[2025-02-27] MEDS: ONDANSETRON 4 MG/2 ML VIAL IVP STA (16:09)
[2025-02-27 16:20] LABS: Basophils % (A) 0 %; Eosinophils # (A) 0.1 k/uL (0-0.7); Eosinophils % (A) 1 %; HCT 32.6 % (39.0-53.0); HGB 10.1 gm/dL (13.0-17.5); Lymphocytes # (A) 0.9 k/uL (1.0-4.8); Lymphocytes % (A) 9 %; MCV 96.5 fL (80.0-100.0); Mean Platelet Volume 8.5; Monocytes # (A) 0.3 k/uL (0-1.0); Monocytes % (A) 3 %; Neutrophils # (A) 8.2 k/uL (1.3-7.7); Neutrophils % (A) 86 %; RBC 3.38 m/uL (4.30-5.90); RDW 15.8 % (11.5-15.5); WBC 9.6 k/uL (3.8-10.6)
[2025-02-27 16:24] LABS: INR 1.2 (<1.2); Prothrombin Time 12.8 sec (10.0-12.5)
[2025-02-27 16:25] LABS: ALT 15 U/L (4-49); AST 45 U/L (17-59); African American GFR (CKD) 9 (>60 ml/min/1.73 sqM); Albumin 3.2 g/dL (3.5-5.0); Alcohol 74 mg/dL; Alkaline Phosphatase 169 U/L (38-126); Anion Gap 23 mmol/L; Blood Urea Nitrogen 93 mg/dL (9-20); Calcium 6.6 mg/dL (8.4-10.2); Chloride 97 mmol/L (98-107); Glucose 147 mg/dL (74-99); Lipase 102 U/L (23-300); Magnesium 1.9 mg/dL (1.6-2.3); Non-African American GFR(CKD) 7 (>60 ml/min/1.73 sqM); Partial Thromboplastin Time 28.6 sec (22.0-30.0); Phosphorus 6.7 mg/dL (2.5-4.5); Potassium 5.5 mmol/L (3.5-5.1); Sodium 128 mmol/L (137-145); Total Bilirubin 0.5 mg/dL (0.2-1.3); Total Protein 5.7 g/dL (6.3-8.2)
[2025-02-27 16:31] LABS: Platelet Count 143 k/uL (150-450)
[2025-02-27 16:52] LABS: Carbon Dioxide 8 mmol/L (22-30)
[2025-02-27] MEDS ORDERED: MORPHINE SULFATE 4 MG/ML SYRINGE IV PRN (17:36)
[2025-02-27] MEDS ORDERED: NALOXONE 0.4 MG/ML 1 ML VIAL IV PRN (17:36)
[2025-02-27 17:45] LABS: Appearance,Urine Cloudy (Clear); Bacteria,Urine Rare /hpf; Bilirubin,Urine Negative (Negative); Blood,Urine Small (Negative); Budding Yeast,Urine Moderate /hpf; Color,Urine Colorless; Glucose,Urine (UA) Negative (Negative); Ketones,Urine Negative (Negative); Leukocyte Esterase,Urine Large (Negative); Mucus,Urine Rare /hpf; Nitrite,Urine Negative (Negative); Protein,Urine Trace (Negative); RBC,Urine 6 /hpf (0-5); Specific Gravity,Urine 1.012 (1.001-1.035); Squamous Epithelial Cell,Urine <1 /hpf (0-4); Urobilinogen,Urine <2.0 mg/dL (<2.0); WBC,Urine 66 /hpf (0-5)
[2025-02-27] MEDS: PANTOPRAZOLE 40 MG/10 ML VIAL IV SCH (18:01)
[2025-02-27] MEDS: SODIUM CHLORIDE 0.9% 1,000 ML IV SCH (18:02)
[2025-02-27] MEDS: DEXTROSE 5% IN WATER 1,000 ML with SODIUM BICARB (1 MEQ/ML) 150 ML IV ONE (18:22)
--- NOTE | 2025-02-27 18:31 | XR ---
EXAMINATION TYPE: XR chest 1V DATE OF EXAM: 02/27/2025 6:20 PM COMPARISON: Chest radiographs from 08/29/2024 CLINICAL INDICATION: Male, 65 years old with history of sob; [facility] TECHNIQUE: XR chest 1V Frontal view of the chest. FINDINGS: Lungs/Pleura: There is no evidence of pleural effusion, focal consolidation, or pneumothorax. Pulmonary vascularity: Unremarkable. Heart/mediastinum: Cardiomediastinal silhouette is enlarged. Musculoskeletal: No acute osseous pathology. Other findings: None IMPRESSION: No acute cardiopulmonary disease/process. [facility], , 02/27/2025 6:29 PM
--- NOTE | 2025-02-27 19:16 | US ---
EXAMINATION TYPE: US kidneys/renal and bladder DATE OF EXAM: 02/27/2025 COMPARISON: US 04/04/24 CLINICAL INDICATION: Male, 65 years old with history of acute renal failure; acute renal failure TECHNIQUE: Grayscale imaging of the bilateral kidneys and urinary bladder: FINDINGS: EXAM MEASUREMENTS: Right Kidney: visualized portion measures 8.1 x 5.8 cm Left Kidney: 10.4 x 5.3 x 5.9 cm very limited due to overlying gas, patient unable to roll rld/lld, and unable to hold breaths for imaging Right Kidney: visualized portion wnl, inferior portion obscured by gas. unable to visualized in trans verse Left Kidney: dilated collecting system, appears similar to prior Bladder: catheter, unable to visualize bladder Bilateral Jets seen: no IMPRESSION: Limited evaluation the right kidney. Mild dilation of the left renal collecting system.. [facility], , 02/27/2025 7:13 PM
[2025-02-27] MEDS ORDERED: LORazepam 2 MG/ML INJ IV PRN ×2 (19:35)
[2025-02-27] MEDS ORDERED: LORazepam 1 MG/0.5 ML VIAL IV PRN ×2 (19:35→19:43)
[2025-02-27] MEDS ORDERED: LORazepam 1 MG TAB PO PRN ×2 (19:35)
[2025-02-27] MEDS ORDERED: MELATONIN 5 MG TABLET PO PRN (20:08)
[2025-02-27 21:36] LABS: Glucose,Whole Blood 151 mg/dL (70-110)
[2025-02-27] MEDS: LORazepam 1 MG/0.5 ML VIAL IV PRN (21:48)
[2025-02-27] MEDS: APIXABAN 2.5 MG TABLET PO SCH (21:48)
[2025-02-27] MEDS: ONDANSETRON 4 MG/2 ML VIAL IVP PRN (21:49)
[2025-02-27] MEDS: INSULIN LISPRO (HumaLOG) 100 UNIT/ML 10 mL VL SQ SCH (21:52)
--- NOTE | 2025-02-27 23:38 | P.HPIM ---
History of Present Illness H&P Date: 02/27/25 Chief Complaint: nausea/vomiting/diarrhea Patient is a 65-year-old male with CKD stage III, gcd-ppyjigm-ssbbgipqv diabetes mellitus, alcohol use disorder, depression presenting with nausea, vomiting, diarrhea, and and urinary retention. Patient noticed that he hasn't urinated for the past 3 days despite normal oral intake. States that he has been feeling nauseous and has been vomiting nonbloody emesis almost every day for the past 3 days. He admits to increased alcohol intake this past weekend stating that he drinks about 1/5 of [employer]. His last drink was yesterday of the same type of alcohol. Patient denies any fever,headache, chest pain, heart palpitations, shortness of breath, abdominal pain. CXR independently interpreted displaying no acute cardiopulmonary process Abdominal/bladder ultrasound displaying limited evaluation of right kidney, mild dilatation of the left renal collecting system UA displayed trace urine blood, large leukocyte Estrace urine RBC 6, urine WBC 66, moderate urine yeast T98.2 F, NM 93, RR 20, BP 109/67, O2 saturation 96% on room air Review of systems: Pertinent positives and negatives as discussed in HPI, a complete review of systems was performed and all other systems are negative. Physical examination: Vital signs reviewed General: Mild distress, appears at stated age, normal weight Derm: no unusual rashes/lesions, warm Head: atraumatic, normocephalic, symmetric Eyes: EOMI, anicteric sclera, pupils equal round reactive to light ENT: Nose and ears atraumatic Mouth: no lip lesion, mucus membranes moist Cardiovascular: S1S2 reg, no murmur, no edema Lungs: CTA bilateral, no rhonchi, no rales, no accessory muscle use Abdominal: soft, non-tender to palpation, no guarding Ext: muscle strength 5 out of 5 in all 4 extremities grossly, left first digit wound, walking boot on right leg Neuro: CN II-XI grossly intact, no gross focal neuro deficits Psych: Alert, oriented to person, place, and time Assessment/Plan: Patient is a 65-year-old male with CKD stage III, kdm-xnjsecn-nholhxjka diabetes mellitus, alcohol use disorder, depression presenting with nausea, vomiting, diarrhea, and and urinary retention. ED documentation reviewed. Discussed with patient. The patient is admitted with an anticipated greater than 2 midnight stay for evaluation of alcoholic ketoacidosis and ASHA. #. ASHA on CKD stage III #. Alcoholic ketoacidosis #. Hyperkalemia #. Dehydration #. Urinary retention #. Anemia chronic disease secondary to CKD #. Thrombocytopenia Renal/bladder ultrasound displaying limited evaluation of right kidney, mild dilatation of the left renal collecting system Serum alcohol 74 Plasma lactic acid 4.6 => 2.8 BUN 93, creatinine 7.00 (baseline 1.61.7), potassium 5.5, Calcium 6.6, Phosphorus 6.7 Hgb 10.1 (at baseline), platelet 143 No signs of acute bleeding NS at 130 cc an hour Dextrose 5% in water/sodium bicarb at 100 cc an hour Thiamine 100 mg PO QD Continue calcitriol 0.25 mcg PO QD Continue ferrous sulfate 325 mg PO QD Cardiac telemetry Intake/output Monitor for withdrawal symptoms Ativan per [facility] protocol, monitor electrolytes, monitor for seizure, hypoglycemia precaution Nephrology consulted #. Urinary tract infection UA displayed trace urine blood, large leukocyte Estrace urine RBC 6, urine WBC 6 6, moderate urine yeast Patient with urinary retention for the past 3 days Rocephin 2 g IVPB q. 24-hour Hold [facility] #. Left first toe wound podiatry consult wound care consult #. Eiy-llvlayz-fnoagolce diabetes mellitus Humalog insulin SQ sliding scale Accu-Cheks ACHS Hypoglycemic precaution Holding Farxiga #. BPH Flomax 0.4 mg p.o. daily Possible GI bleed (coffee ground vomiting) #. History of DVT hold eliquis , due to coffee ground vomiting Protonix 80 mg IVP once , then 40 mg ivp BID CBC q6hr F: NS at 130 cc an hour E: Replete electrolytes as needed N: Clear liquid diet A: Ambulatory at baseline DVT prophylaxis: mechanical due to suspected GI bleed CODE STATUS: Full Code Anticipated discharge place: pending clinical course Brianna Gil MD PGY-1 IM Dictation was produced using [employer] dictation software. please excuse any grammatical, word or spelling errors. I have seen and evaluated the patient today. I Discussed the case with the resident and agree with the resident's findings I edited the assessment and plan as necessary as documented in the resident's note. Past Medical History Past Medical History: Atrial Fibrillation, Blood Disorder, Diabetes Mellitus, Deep Vein Thrombosis (DVT), Renal Disease, Sleep Apnea/CPAP/BIPAP, Thyroid Disorder Additional Past Medical History / Comment(s): no CPAP/BIPAP. buerger's disease. DVT left leg 2021. hx diabetes - resolved after weight loss in 2000; stage 3 kidney disease. History of Any Multi-Drug Resistant Organisms: None Reported Past Surgical History: Bariatric Surgery, Cholecystectomy, Hernia Repair, Orthopedic Surgery Additional Past Surgical History / Comment(s): gastric bypass; Umbilical hernia, 6x hernia surgeries, fell & broke right hip in 2019 while in [place] & had surg with pin- states right leg is 1 inch and 3/4 shorter than left leg. Past Anesthesia/Blood Transfusion Reactions: No Reported Reaction Additional Past Anesthesia/Blood Transfusion Reaction / Comment(s): hx blood transfusions, last one in 2022, no problems Past Psychological History: Depression Smoking Status: Never smoker Past Alcohol Use History: None Reported Past Drug Use History: None Reported - Past Family History Father Family Medical History: Cancer Mother Family Medical History: Cancer Medications and Allergies Home Medications Medication Instructions Recorded Confirmed Type FLUoxetine HCL [PROzac] 40 mg PO DAILY 08/29/24 02/27/25 History Ferrous Sulfate [Feosol] 325 mg PO DAILY 08/29/24 02/27/25 History Folic Acid 1 mg PO DAILY 08/29/24 02/27/25 History Levothyroxine Sodium 125 mcg PO DAILY 08/29/24 02/27/25 History Tamsulosin [Flomax] 0.4 mg PO DAILY 08/29/24 02/27/25 History allopurinoL 100 mg PO DAILY 08/29/24 02/27/25 History calcitrioL 0.25 mcg PO DAILY 08/29/24 02/27/25 History Torsemide [Demadex] 10 mg PO DAILY 09/08/24 02/27/25 History Apixaban [Eliquis] 2.5 mg PO BID 01/23/25 02/27/25 History Cyanocobalamin (Vitamin B-12) 1,000 mcg PO DAILY 01/23/25 02/27/25 History [Vitamin B-12] Dapagliflozin Propanediol [Farxiga] 10 mg PO DAILY 01/23/25 02/27/25 History Melatonin 5 mg PO HS PRN tab 02/01/25 02/27/25 Rx Thiamine [Vitamin B-1] 100 mg PO DAILY tab 02/01/25 02/27/25 Rx Sulfamethox-Tmp 800-160Mg [Bactrim 1 tab PO Q12HR 02/27/25 02/27/25 History DS 800-160 mg] Allergies Allergy/AdvReac Type Severity Reaction Status Date / Time No Known Allergies Allergy Verified 02/27/25 17:50 Physical Exam Vitals: Vital Signs Temp Pulse Resp BP Pulse Ox 02/27/25 18:14 101 H 19 119/73 96 02/27/25 16:06 99 19 92/63 90 L 02/27/25 15:27 98.2 F 93 20 109/67 96 Intake and Output 02/27/25 02/27/25 02/27/25 06:59 14:59 22:59 Output Total 200 Balance -200 Output: Urine 200 Uretheral (Jo) 200 Other: Weight 113.398 kg Results CBC & Chem 7: 02/27/25 15:59 02/27/25 15:59 Labs: Abnormal Lab Results - Last 24 Hours (Table) 02/27/25 02/27/25 02/27/25 Range/Units 15:59 15:59 15:59 RBC 3.38 L (4.30-5.90) m/uL Hgb 10.1 L (13.0-17.5) gm/dL Hct 32.6 L (39.0-53.0) % RDW 15.8 H (11.5-15.5) % Plt Count 143 L D (150-450) k/uL Neutrophils # 8.2 H (1.3-7.7) k/uL Lymphocytes # 0.9 L (1.0-4.8) k/uL PT 12.8 H (10.0-12.5) sec INR 1.2 H (<1.2) Sodium 128 L (137-145) mmol/L Potassium 5.5 H (3.5-5.1) mmol/L Chloride 97 L (98-107) mmol/L Carbon Dioxide 8 L* (22-30) mmol/L BUN 93 H (9-20) mg/dL Creatinine 7.00 H (0.66-1.25) mg/dL Glucose 147 H (74-99) mg/dL Plasma Lactic Acid Kip (0.7-2.0) mmol/L Calcium 6.6 L (8.4-10.2) mg/dL Phosphorus 6.7 H (2.5-4.5) mg/dL Alkaline Phosphatase 169 H (38-126) U/L Creatine Kinase (55-170) U/L Total Protein 5.7 L (6.3-8.2) g/dL Albumin 3.2 L (3.5-5.0) g/dL Urine Protein (Negative) Urine Blood (Negative) Ur Leukocyte Esterase (Negative) Urine RBC (0-5) /hpf Urine WBC (0-5) /hpf Urine WBC Clumps (None) /hpf Urine Bacteria (None) /hpf Urine Mucus (None) /hpf Urine Yeast (Budding) (None) /hpf 02/27/25 02/27/25 02/27/25 Range/Units 15:59 15:59 17:28 RBC (4.30-5.90) m/uL Hgb (13.0-17.5) gm/dL Hct (39.0-53.0) % RDW (11.5-15.5) % Plt Count (150-450) k/uL Neutrophils # (1.3-7.7) k/uL Lymphocytes # (1.0-4.8) k/uL PT (10.0-12.5) sec INR (<1.2) Sodium (137-145) mmol/L Potassium (3.5-5.1) mmol/L Chloride (98-107) mmol/L Carbon Dioxide (22-30) mmol/L BUN (9-20) mg/dL Creatinine (0.66-1.25) mg/dL Glucose (74-99) mg/dL Plasma Lactic Acid Kip 4.6 H* (0.7-2.0) mmol/L Calcium (8.4-10.2) mg/dL Phosphorus (2.5-4.5) mg/dL Alkaline Phosphatase (38-126) U/L Creatine Kinase 399 H (55-170) U/L Total Protein (6.3-8.2) g/dL Albumin (3.5-5.0) g/dL Urine Protein Trace H (Negative) Urine Blood Small H (Negative) Ur Leukocyte Esterase Large H (Negative) Urine RBC 6 H (0-5) /hpf Urine WBC 66 H (0-5) /hpf Urine WBC Clumps Few H (None) /hpf Urine Bacteria Rare H (None) /hpf Urine Mucus Rare H (None) /hpf Urine Yeast (Budding) Moderate H (None) /hpf 02/27/25 Range/Units 19:01 RBC (4.30-5.90) m/uL Hgb (13.0-17.5) gm/dL Hct (39.0-53.0) % RDW (11.5-15.5) % Plt Count (150-450) k/uL Neutrophils # (1.3-7.7) k/uL Lymphocytes # (1.0-4.8) k/uL PT (10.0-12.5) sec INR (<1.2) Sodium (137-145) mmol/L Potassium (3.5-5.1) mmol/L Chloride (98-107) mmol/L Carbon Dioxide (22-30) mmol/L BUN (9-20) mg/dL Creatinine (0.66-1.25) mg/dL Glucose (74-99) mg/dL Plasma Lactic Acid Kip 2.8 H* (0.7-2.0) mmol/L Calcium (8.4-10.2) mg/dL Phosphorus (2.5-4.5) mg/dL Alkaline Phosphatase (38-126) U/L Creatine Kinase (55-170) U/L Total Protein (6.3-8.2) g/dL Albumin (3.5-5.0) g/dL Urine Protein (Negative) Urine Blood (Negative) Ur Leukocyte Esterase (Negative) Urine RBC (0-5) /hpf Urine WBC (0-5) /hpf Urine WBC Clumps (None) /hpf Urine Bacteria (None) /hpf Urine Mucus (None) /hpf Urine Yeast (Budding) (None) /hpf
[2025-02-27] MEDS: METOCLOPRAMIDE 5 MG/ML 2 ML VIAL IVP PRN (23:50)
[2025-02-28] MEDS: DEXTROSE 5% IN WATER 1,000 ML with SODIUM BICARB (1 MEQ/ML) 150 ML IV SCH (06:01)
[2025-02-28 06:05] LABS: Glucose,Whole Blood 130 mg/dL (70-110)
[2025-02-28] MEDS: PANTOPRAZOLE 40 MG/10 ML VIAL IVP ONE (06:34)
[2025-02-28] MEDS: LEVOTHYROXINE 125 MCG TAB PO SCH (06:35)
[2025-02-28] MEDS: ADENOSINE 3 MG/ML 2 ML VIAL IVP STA ×3 (08:38→09:18)
[2025-02-28] MEDS: LORazepam 1 MG TAB PO PRN (09:05)
[2025-02-28] MEDS: FLUoxetine HCL 20 MG CAP PO SCH (09:06)
[2025-02-28] MEDS: THIAMINE 100 MG TAB PO SCH (09:07)
[2025-02-28] MEDS: allopurinoL 100 MG TAB PO SCH (09:07)
[2025-02-28] MEDS: FERROUS SULFATE 325 MG TAB PO SCH (09:07)
[2025-02-28] MEDS: FOLIC ACID 1 MG TAB PO SCH (09:07)
[2025-02-28] MEDS: TAMSULOSIN 0.4 MG CAP.ER.24H PO SCH (09:07)
[2025-02-28 09:45] LABS: Basophils % (A) 0 %; Eosinophils # (A) 0.1 k/uL (0-0.7); Eosinophils % (A) 1 %; HCT 30.9 % (39.0-53.0); HGB 9.8 gm/dL (13.0-17.5); Hypochromasia Moderate; Lymphocytes # (A) 0.9 k/uL (1.0-4.8); Lymphocytes % (A) 11 %; MCH 30.4 pg (25.0-35.0); MCHC 31.6 g/dL (31.0-37.0); MCV 96.1 fL (80.0-100.0); Mean Platelet Volume 8.3; Monocytes # (A) 0.3 k/uL (0-1.0); Monocytes % (A) 3 %; Neutrophils % (A) 84 %; Platelet Count 101 k/uL (150-450); RBC 3.21 m/uL (4.30-5.90); RDW 15.5 % (11.5-15.5); WBC 8.3 k/uL (3.8-10.6)
[2025-02-28 10:10] LABS: ALT 14 U/L (4-49); AST 38 U/L (17-59); African American GFR (CKD) 11 (>60 ml/min/1.73 sqM); Albumin 2.8 g/dL (3.5-5.0); Alkaline Phosphatase 151 U/L (38-126); Anion Gap 13 mmol/L; Blood Urea Nitrogen 85 mg/dL (9-20); Calcium 7.2 mg/dL (8.4-10.2); Carbon Dioxide 18 mmol/L (22-30); Chloride 101 mmol/L (98-107); Glucose 144 mg/dL (74-99); Lipase 78 U/L (23-300); Magnesium 1.8 mg/dL (1.6-2.3); Non-African American GFR(CKD) 10 (>60 ml/min/1.73 sqM); Phosphorus 4.6 mg/dL (2.5-4.5); Potassium 4.2 mmol/L (3.5-5.1); Sodium 132 mmol/L (137-145); Total Bilirubin 0.6 mg/dL (0.2-1.3); Total Protein 5.2 g/dL (6.3-8.2)
--- NOTE | 2025-02-28 11:14 | P.PN ---
Subjective Progress Note Date: 02/28/25 65-year-old male with CKD stage III, iex-jseuriz-vxkoshztb diabetes mellitus, alcohol use disorder, depression presenting with nausea, vomiting, diarrhea, and and urinary retention. Patient noticed that he hasn't urinated for the past 3 days despite normal oral intake. States that he has been feeling nauseous and has been vomiting nonbloody emesis almost every day for the past 3 days. He admits to increased alcohol intake this past weekend stating that he drinks about 1/5 of [employer] [place]. His last drink was yesterday of the same type of alcohol. 02/28 - He was seen and examined at bedside this morning, remaining in the ED. He was noted by the nurse to have been in a run of SVT. At the time he had no complaints of chest pain, worsening shortness of breath or pressure. Vagal maneuvers were attempted to have him return to sinus rhythm, however were unsuccessful. Administered a total of 18 mg adenosine for return to sinus rhythm. He had no complaints at that time. Troponins were checked at the time which found to be elevated at 0.605, cardiology was then consulted. Antibiotics were discontinued as he showed no signs or symptoms of having a UTI. REVIEW OF SYSTEMS: Pertinent positives and negatives noted in HPI. Physical Exam: Vital signs reviewed General: Mild distress, appears at stated age, normal weight Derm: no unusual rashes/lesions, warm Head: atraumatic, normocephalic, symmetric Eyes: EOMI, anicteric sclera, pupils equal round reactive to light ENT: Nose and ears atraumatic Mouth: no lip lesion, mucus membranes moist Cardiovascular: S1S2 reg, no murmur, no edema Lungs: CTA bilateral, no rhonchi, no rales, no accessory muscle use Abdominal: soft, non-tender to palpation, no guarding Ext: muscle strength 5 out of 5 in all 4 extremities grossly, left first digit wound, walking boot on right leg Neuro: CN II-XI grossly intact, no gross focal neuro deficits Psych: Alert, oriented to person, place, and time Data Received Today: Labs: WBCs 8.3, hemoglobin 9.8, hematocrit 30.9, platelet 101; sodium 132, potassium 4.2, bicarb 18, BUN 85, creatinine 5.73, calcium 7.2, phosphorus of 4.6, alkaline phosphatase 151; troponin 0.605 Imagining: No new imaging Assessment and plan 65-year-old male with CKD stage III, jbz-uywvlbd-exrtadqix diabetes mellitus, alcohol use disorder, depression presenting with nausea, vomiting, diarrhea, and and urinary retention. ED documentation reviewed. Discussed with patient. The patient is admitted with an anticipated greater than 2 midnight stay for evaluation of alcoholic ketoacidosis and ASHA. #ASHA, with components of prerenal and postrenal, on CKD stage IIIb with baseline creatinine 1.6-1.7 #Alcoholic ketoacidosis #Hyperkalemia #Dehydration #Urinary retention #Anemia chronic disease secondary to CKD stage IIIb #Thrombocytopenia #Possible element of rhabdomyolysis #Hypocalcemia hyperphosphatemia likely secondary to CKD stage IIIb -Renal/bladder ultrasound displaying limited evaluation of right kidney, mild dilatation of the left renal collecting system -NS at 130 cc/h discontinued -Continue with D5W/sodium bicarb at 100 cc/h -Improved this morning with fluid resuscitation; BUN 85, creatinine 5.73, bicarb 18 -Initial CK 399, repeat ordered currently pending -Continue with urinary catheter -Thiamine 100 mg PO QD -Continue calcitriol 0.25 mcg PO QD -Continue ferrous sulfate 325 mg PO QD -Monitor intake/output -Monitor for withdrawal symptoms -Ativan per [facility] protocol, monitor electrolytes, monitor for seizure, hypoglycemia precaution -Nephrology consulted #Acute SVT #Type II NSTEMI possibly secondary to above vs metabolic abnormalities -Episode of SVT this morning, with a rate of 165 -Administered total of 80 mg adenosine to return to sinus rhythm -Trend troponins; initial troponin 0.605 -Echocardiogram ordered, currently pending -TSH ordered, currently pending -Cardiology consulted -Cardiac monitoring #Suspected upper and lower GI bleed -Hemoglobin this morning 9.8 -Documented episode of hematemesis -Protonix 80 mg IVP once , then 40 mg ivp BID -CBC q6hr -General Surgery consulted #No signs of urinary tract infection -Antibiotics discontinued #Left first toe wound -podiatry consult -wound care consult #Cjq-efjhyzp-uzsfiejar diabetes mellitus -Humalog insulin SQ sliding scale -Accu-Cheks ACHS -Hypoglycemic precaution -Holding Farxiga #BPH -Flomax 0.4 mg p.o. daily DVT ppx: Hold Eliquis GI PPx: Protonix 40 mg IV twice daily Code status: Full code F: D5W/sodium bicarb at 100 cc/h E: Replete as needed N: Clear liquid diet A: Ambulatory at baseline Anticipated discharge place: Pending clinical course Anticipated discharge time: Pending clinical course Dictation was produced using [employer] dictation software. please excuse any grammatical, word or spelling errors. Oli Chen MD PGY-1 IM I have seen and evaluated the patient today. Discussed with the resident and agree with the residents finding and plan as documented in the resident's note. Changes highlighted in blue font. Objective - Vital Signs Vital signs: Vital Signs Temp 97.1 F L 02/28/25 07:56 Pulse 93 02/28/25 07:56 Resp 17 02/28/25 07:56 BP 104/71 02/28/25 07:56 Pulse Ox 99 02/28/25 07:56 FiO2 Intake & Output 02/27/25 02/28/25 02/28/25 18:59 06:59 18:59 Output Total 200 525 Balance -200 -525 Weight 113.398 kg Output: Urine 200 525 Uretheral (Jo) 200 200 Other: # Bowel Movements 3 - Labs CBC & Chem 7: 02/28/25 11:51 02/28/25 09:12 Labs: Abnormal Lab Results - Last 24 Hours (Table) 02/27/25 02/27/25 02/27/25 Range/Units 15:59 15:59 15:59 RBC 3.38 L (4.30-5.90) m/uL Hgb 10.1 L (13.0-17.5) gm/dL Hct 32.6 L (39.0-53.0) % RDW 15.8 H (11.5-15.5) % Plt Count 143 L D (150-450) k/uL Neutrophils # 8.2 H (1.3-7.7) k/uL Lymphocytes # 0.9 L (1.0-4.8) k/uL PT 12.8 H (10.0-12.5) sec INR 1.2 H (<1.2) Sodium 128 L (137-145) mmol/L Potassium 5.5 H (3.5-5.1) mmol/L Chloride 97 L (98-107) mmol/L Carbon Dioxide 8 L* (22-30) mmol/L BUN 93 H (9-20) mg/dL Creatinine 7.00 H (0.66-1.25) mg/dL Glucose 147 H (74-99) mg/dL POC Glucose (mg/dL) (70-110) mg/dL Plasma Lactic Acid Kip (0.7-2.0) mmol/L Calcium 6.6 L (8.4-10.2) mg/dL Phosphorus 6.7 H (2.5-4.5) mg/dL Alkaline Phosphatase 169 H (38-126) U/L Creatine Kinase (55-170) U/L Total Protein 5.7 L (6.3-8.2) g/dL Albumin 3.2 L (3.5-5.0) g/dL Urine Protein (Negative) Urine Blood (Negative) Ur Leukocyte Esterase (Negative) Urine RBC (0-5) /hpf Urine WBC (0-5) /hpf Urine WBC Clumps (None) /hpf Urine Bacteria (None) /hpf Urine Mucus (None) /hpf Urine Yeast (Budding) (None) /hpf 02/27/25 02/27/25 02/27/25 Range/Units 15:59 15:59 17:28 RBC (4.30-5.90) m/uL Hgb (13.0-17.5) gm/dL Hct (39.0-53.0) % RDW (11.5-15.5) % Plt Count (150-450) k/uL Neutrophils # (1.3-7.7) k/uL Lymphocytes # (1.0-4.8) k/uL PT (10.0-12.5) sec INR (<1.2) Sodium (137-145) mmol/L Potassium (3.5-5.1) mmol/L Chloride (98-107) mmol/L Carbon Dioxide (22-30) mmol/L BUN (9-20) mg/dL Creatinine (0.66-1.25) mg/dL Glucose (74-99) mg/dL POC Glucose (mg/dL) (70-110) mg/dL Plasma Lactic Acid Kip 4.6 H* (0.7-2.0) mmol/L Calcium (8.4-10.2) mg/dL Phosphorus (2.5-4.5) mg/dL Alkaline Phosphatase (38-126) U/L Creatine Kinase 399 H (55-170) U/L Total Protein (6.3-8.2) g/dL Albumin (3.5-5.0) g/dL Urine Protein Trace H (Negative) Urine Blood Small H (Negative) Ur Leukocyte Esterase Large H (Negative) Urine RBC 6 H (0-5) /hpf Urine WBC 66 H (0-5) /hpf Urine WBC Clumps Few H (None) /hpf Urine Bacteria Rare H (None) /hpf Urine Mucus Rare H (None) /hpf Urine Yeast (Budding) Moderate H (None) /hpf 02/27/25 02/27/25 02/28/25 Range/Units 19:01 21:35 06:04 RBC (4.30-5.90) m/uL Hgb (13.0-17.5) gm/dL Hct (39.0-53.0) % RDW (11.5-15.5) % Plt Count (150-450) k/uL Neutrophils # (1.3-7.7) k/uL Lymphocytes # (1.0-4.8) k/uL PT (10.0-12.5) sec INR (<1.2) Sodium (137-145) mmol/L Potassium (3.5-5.1) mmol/L Chloride (98-107) mmol/L Carbon Dioxide (22-30) mmol/L BUN (9-20) mg/dL Creatinine (0.66-1.25) mg/dL Glucose (74-99) mg/dL POC Glucose (mg/dL) 151 H 130 H (70-110) mg/dL Plasma Lactic Acid Kip 2.8 H* (0.7-2.0) mmol/L Calcium (8.4-10.2) mg/dL Phosphorus (2.5-4.5) mg/dL Alkaline Phosphatase (38-126) U/L Creatine Kinase (55-170) U/L Total Protein (6.3-8.2) g/dL Albumin (3.5-5.0) g/dL Urine Protein (Negative) Urine Blood (Negative) Ur Leukocyte Esterase (Negative) Urine RBC (0-5) /hpf Urine WBC (0-5) /hpf Urine WBC Clumps (None) /hpf Urine Bacteria (None) /hpf Urine Mucus (None) /hpf Urine Yeast (Budding) (None) /hpf
[2025-02-28 11:17] LABS: Creatine Kinase 216 U/L (55-170)
--- NOTE | 2025-02-28 11:40 | CA ---
Transthoracic Echo Report Name: Stanislav Harrison Age: 65 Gender: M : 1960 Exam Date: 02/28/2025 09:25 Exam Location: [facility] Ht (in): 72 Wt (lb): 250 Ordering Physician: Tom Charlton MD Attending/Referring Phys: Office Support Assistant Jammie Fleming RDCS Procedure CPT: Indications: svt Cardiac Hx: Technical Quality: Fair Contrast 1: Total Dose (mL): Contrast 2: Total Dose (mL): MEASUREMENTS (Male / Female) Normal Values 2D ECHO LV Diastolic Diameter PLAX 5.5 cm 4.2 - 5.9 / 3.9 - 5.3 cm LV Systolic Diameter PLAX 4.4 cm IVS Diastolic Thickness 1.1 cm 0.6 - 1.0 / 0.6 - 0.9 cm LVPW Diastolic Thickness 1.4 cm 0.6 - 1.0 / 0.6 - 0.9 cm LV Relative Wall Thickness 0.5 RV Internal Dim ED PLAX 4.4 cm LA Systolic Diameter LX 3.9 cm 3.0 - 4.0 / 2.7 - 3.8 cm M-MODE Aortic Root Diameter MM 3.7 cm DOPPLER MR Peak Velocity 483.5 cm/s MR Peak Gradient 93.5 mmHg Mitral E Point Velocity 75.1 cm/s Mitral A Point Velocity 46.7 cm/s Mitral E to A Ratio 1.6 MV Deceleration Time 261.8 ms FINDINGS Left Ventricle Left ventricular ejection fraction is estimated at 55-60 %. Left ventricular cavity size normal. Mildly increased septal wall thickness. No obvious regional wall motion abnormalities. Right Ventricle Severe right ventricular dilatation. Unable to estimate the right ventricular systolic pressure. Right Atrium Severe right atrial dilatation. No right atrial thrombus or mass seen. Left Atrium Normal left atrial size. No left atrial thrombus or mass present. Mitral Valve Structurally normal mitral valve. No evidence for mitral valve prolapse. No mitral stenosis. Mild mitral regurgitation. Aortic Valve Trileaflet aortic valve. No aortic valve stenosis or regurgitation. Tricuspid Valve Structurally normal tricuspid valve. No tricuspid stenosis, regurgitation or prolapse. Pulmonic Valve Structurally normal pulmonic valve. No pulmonic regurgitation. Pericardium No pericardial effusion. Aorta Normal size aortic root and proximal ascending aorta. CONCLUSIONS Indication for the procedure: SVT, right bundle branch block morphology Normal LV size and function RV enlargement Previewed by: Dr. Jaskaran Shepherd MD (Electronically Signed) Final Date: 28 February 2025 11:39
[2025-02-28 11:44] LABS: Glucose,Whole Blood 132 mg/dL (70-110)
[2025-02-28 12:26] LABS: Basophils % (A) 0 %; Eosinophils % (A) 0 %; HGB 9.4 gm/dL (13.0-17.5); Lymphocytes # (A) 0.8 k/uL (1.0-4.8); Lymphocytes % (A) 12 %; MCH 29.3 pg (25.0-35.0); MCHC 30.4 g/dL (31.0-37.0); MCV 96.3 fL (80.0-100.0); Mean Platelet Volume 8.9; Monocytes # (A) 0.2 k/uL (0-1.0); Monocytes % (A) 3 %; Neutrophils # (A) 5.9 k/uL (1.3-7.7); Neutrophils % (A) 84 %; Platelet Count 101 k/uL (150-450); RBC 3.22 m/uL (4.30-5.90); RDW 15.7 % (11.5-15.5); WBC 7.1 k/uL (3.8-10.6)
--- NOTE | 2025-02-28 13:19 | P.CON ---
Consult Note - . Consult date: 02/28/25 Assessment/Plan:: Wound care consultation: Date of consultation: 02/28/2025 Reason for consultation: Ulcer left great toe History of chief complaint: This 65-year-old gentleman is admitted to the hospital for numerous medical issues including stage III renal insufficiency, alcoholic ketoacidosis, hyperkalemia, dehydration and urinary retention. We are asked to assess the patient regarding an ulceration on the left great toe which is of uncertain origin. This patient has a history of DVT but his Eliquis is on hold due to a history of GI bleed. Patient has a history of alcohol abuse. Lab Results 02/27/25 02/27/25 02/27/25 Range/Units 15:59 15:59 15:59 WBC 9.6 (3.8-10.6) k/uL RBC 3.38 L (4.30-5.90) m/uL Hgb 10.1 L (13.0-17.5) gm/dL Hct 32.6 L (39.0-53.0) % MCV 96.5 (80.0-100.0) fL MCH 30.0 (25.0-35.0) pg MCHC 31.0 (31.0-37.0) g/dL RDW 15.8 H (11.5-15.5) % Plt Count 143 L D (150-450) k/uL MPV 8.5 Neutrophils % 86 % Lymphocytes % 9 % Monocytes % 3 % Eosinophils % 1 % Basophils % 0 % Neutrophils # 8.2 H (1.3-7.7) k/uL Lymphocytes # 0.9 L (1.0-4.8) k/uL Monocytes # 0.3 (0-1.0) k/uL Eosinophils # 0.1 (0-0.7) k/uL Basophils # 0.0 (0-0.2) k/uL Hypochromasia PT 12.8 H (10.0-12.5) sec INR 1.2 H (<1.2) APTT 28.6 (22.0-30.0) sec Sodium 128 L (137-145) mmol/L Potassium 5.5 H (3.5-5.1) mmol/L Chloride 97 L (98-107) mmol/L Carbon Dioxide 8 L* (22-30) mmol/L Anion Gap 23 mmol/L BUN 93 H (9-20) mg/dL Creatinine 7.00 H (0.66-1.25) mg/dL Est GFR (CKD-EPI)AfAm 9 (>60 ml/min/1.73 sqM) Est GFR (CKD-EPI)NonAf 7 (>60 ml/min/1.73 sqM) Glucose 147 H (74-99) mg/dL POC Glucose (mg/dL) (70-110) mg/dL POC Glu Tour Actor ID Lactic Ac Sepsis Rflx Plasma Lactic Acid Kip (0.7-2.0) mmol/L Calcium 6.6 L (8.4-10.2) mg/dL Phosphorus 6.7 H (2.5-4.5) mg/dL Magnesium 1.9 (1.6-2.3) mg/dL Total Bilirubin 0.5 (0.2-1.3) mg/dL AST 45 (17-59) U/L ALT 15 (4-49) U/L Alkaline Phosphatase 169 H (38-126) U/L Creatine Kinase (55-170) U/L Troponin I (0.000-0.034) ng/mL Total Protein 5.7 L (6.3-8.2) g/dL Albumin 3.2 L (3.5-5.0) g/dL Lipase 102 (23-300) U/L TSH (0.465-4.680) mIU/L Urine Color Urine Appearance (Clear) Urine pH (5.0-8.0) Ur Specific [place] (1.001-1.035) Urine Protein (Negative) Urine Glucose (UA) (Negative) Urine Ketones (Negative) Urine Blood (Negative) Urine Nitrite (Negative) Urine Bilirubin (Negative) Urine Urobilinogen (<2.0) mg/dL Ur Leukocyte Esterase (Negative) Urine RBC (0-5) /hpf Urine WBC (0-5) /hpf Urine WBC Clumps (None) /hpf Ur Squamous Epith Cells (0-4) /hpf Urine Bacteria (None) /hpf Urine Mucus (None) /hpf Urine Yeast (Budding) (None) /hpf Stool Occult Blood (Negative) Serum Alcohol 74 mg/dL 02/27/25 02/27/25 02/27/25 Range/Units 15:59 15:59 16:52 WBC (3.8-10.6) k/uL RBC (4.30-5.90) m/uL Hgb (13.0-17.5) gm/dL Hct (39.0-53.0) % MCV (80.0-100.0) fL MCH (25.0-35.0) pg MCHC (31.0-37.0) g/dL RDW (11.5-15.5) % Plt Count (150-450) k/uL MPV Neutrophils % % Lymphocytes % % Monocytes % % Eosinophils % % Basophils % % Neutrophils # (1.3-7.7) k/uL Lymphocytes # (1.0-4.8) k/uL Monocytes # (0-1.0) k/uL Eosinophils # (0-0.7) k/uL Basophils # (0-0.2) k/uL Hypochromasia PT (10.0-12.5) sec INR (<1.2) APTT (22.0-30.0) sec Sodium (137-145) mmol/L Potassium (3.5-5.1) mmol/L Chloride (98-107) mmol/L Carbon Dioxide (22-30) mmol/L Anion Gap mmol/L BUN (9-20) mg/dL Creatinine (0.66-1.25) mg/dL Est GFR (CKD-EPI)AfAm (>60 ml/min/1.73 sqM) Est GFR (CKD-EPI)NonAf (>60 ml/min/1.73 sqM) Glucose (74-99) mg/dL POC Glucose (mg/dL) (70-110) mg/dL POC Glu Tour Actor ID Lactic Ac Sepsis Rflx Y Plasma Lactic Acid Kip 4.6 H* (0.7-2.0) mmol/L Calcium (8.4-10.2) mg/dL Phosphorus (2.5-4.5) mg/dL Magnesium (1.6-2.3) mg/dL Total Bilirubin (0.2-1.3) mg/dL AST (17-59) U/L ALT (4-49) U/L Alkaline Phosphatase (38-126) U/L Creatine Kinase 399 H (55-170) U/L Troponin I (0.000-0.034) ng/mL Total Protein (6.3-8.2) g/dL Albumin (3.5-5.0) g/dL Lipase (23-300) U/L TSH (0.465-4.680) mIU/L Urine Color Urine Appearance (Clear) Urine pH (5.0-8.0) Ur Specific [place] (1.001-1.035) Urine Protein (Negative) Urine Glucose (UA) (Negative) Urine Ketones (Negative) Urine Blood (Negative) Urine Nitrite (Negative) Urine Bilirubin (Negative) Urine Urobilinogen (<2.0) mg/dL Ur Leukocyte Esterase (Negative) Urine RBC (0-5) /hpf Urine WBC (0-5) /hpf Urine WBC Clumps (None) /hpf Ur Squamous Epith Cells (0-4) /hpf Urine Bacteria (None) /hpf Urine Mucus (None) /hpf Urine Yeast (Budding) (None) /hpf Stool Occult Blood (Negative) Serum Alcohol mg/dL 02/27/25 02/27/25 02/27/25 Range/Units 17:28 19:01 19:30 WBC (3.8-10.6) k/uL RBC (4.30-5.90) m/uL Hgb (13.0-17.5) gm/dL Hct (39.0-53.0) % MCV (80.0-100.0) fL MCH (25.0-35.0) pg MCHC (31.0-37.0) g/dL RDW (11.5-15.5) % Plt Count (150-450) k/uL MPV Neutrophils % % Lymphocytes % % Monocytes % % Eosinophils % % Basophils % % Neutrophils # (1.3-7.7) k/uL Lymphocytes # (1.0-4.8) k/uL Monocytes # (0-1.0) k/uL Eosinophils # (0-0.7) k/uL Basophils # (0-0.2) k/uL Hypochromasia PT (10.0-12.5) sec INR (<1.2) APTT (22.0-30.0) sec Sodium (137-145) mmol/L Potassium (3.5-5.1) mmol/L Chloride (98-107) mmol/L Carbon Dioxide (22-30) mmol/L Anion Gap mmol/L BUN (9-20) mg/dL Creatinine (0.66-1.25) mg/dL Est GFR (CKD-EPI)AfAm (>60 ml/min/1.73 sqM) Est GFR (CKD-EPI)NonAf (>60 ml/min/1.73 sqM) Glucose (74-99) mg/dL POC Glucose (mg/dL) (70-110) mg/dL POC Glu Tour Actor ID Lactic Ac Sepsis Rflx Y Plasma Lactic Acid Kip 2.8 H* (0.7-2.0) mmol/L Calcium (8.4-10.2) mg/dL Phosphorus (2.5-4.5) mg/dL Magnesium (1.6-2.3) mg/dL Total Bilirubin (0.2-1.3) mg/dL AST (17-59) U/L ALT (4-49) U/L Alkaline Phosphatase (38-126) U/L Creatine Kinase (55-170) U/L Troponin I (0.000-0.034) ng/mL Total Protein (6.3-8.2) g/dL Albumin (3.5-5.0) g/dL Lipase (23-300) U/L TSH (0.465-4.680) mIU/L Urine Color Colorless Urine Appearance Cloudy (Clear) Urine pH 5.0 (5.0-8.0) Ur Specific [place] 1.012 (1.001-1.035) Urine Protein Trace H (Negative) Urine Glucose (UA) Negative (Negative) Urine Ketones Negative (Negative) Urine Blood Small H (Negative) Urine Nitrite Negative (Negative) Urine Bilirubin Negative (Negative) Urine Urobilinogen <2.0 (<2.0) mg/dL Ur Leukocyte Esterase Large H (Negative) Urine RBC 6 H (0-5) /hpf Urine WBC 66 H (0-5) /hpf Urine WBC Clumps Few H (None) /hpf Ur Squamous Epith Cells <1 (0-4) /hpf Urine Bacteria Rare H (None) /hpf Urine Mucus Rare H (None) /hpf Urine Yeast (Budding) Moderate H (None) /hpf Stool Occult Blood (Negative) Serum Alcohol mg/dL 02/27/25 02/27/25 02/28/25 Range/Units 21:35 21:42 06:04 WBC (3.8-10.6) k/uL RBC (4.30-5.90) m/uL Hgb (13.0-17.5) gm/dL Hct (39.0-53.0) % MCV (80.0-100.0) fL MCH (25.0-35.0) pg MCHC (31.0-37.0) g/dL RDW (11.5-15.5) % Plt Count (150-450) k/uL MPV Neutrophils % % Lymphocytes % % Monocytes % % Eosinophils % % Basophils % % Neutrophils # (1.3-7.7) k/uL Lymphocytes # (1.0-4.8) k/uL Monocytes # (0-1.0) k/uL Eosinophils # (0-0.7) k/uL Basophils # (0-0.2) k/uL Hypochromasia PT (10.0-12.5) sec INR (<1.2) APTT (22.0-30.0) sec Sodium (137-145) mmol/L Potassium (3.5-5.1) mmol/L Chloride (98-107) mmol/L Carbon Dioxide (22-30) mmol/L Anion Gap mmol/L BUN (9-20) mg/dL Creatinine (0.66-1.25) mg/dL Est GFR (CKD-EPI)AfAm (>60 ml/min/1.73 sqM) Est GFR (CKD-EPI)NonAf (>60 ml/min/1.73 sqM) Glucose (74-99) mg/dL POC Glucose (mg/dL) 151 H 130 H (70-110) mg/dL POC Glu Tour Actor ID Josh Moreno Reina Lactic Ac Sepsis Rflx Plasma Lactic Acid Kip 0.8 (0.7-2.0) mmol/L Calcium (8.4-10.2) mg/dL Phosphorus (2.5-4.5) mg/dL Magnesium (1.6-2.3) mg/dL Total Bilirubin (0.2-1.3) mg/dL AST (17-59) U/L ALT (4-49) U/L Alkaline Phosphatase (38-126) U/L Creatine Kinase (55-170) U/L Troponin I (0.000-0.034) ng/mL Total Protein (6.3-8.2) g/dL Albumin (3.5-5.0) g/dL Lipase (23-300) U/L TSH (0.465-4.680) mIU/L Urine Color Urine Appearance (Clear) Urine pH (5.0-8.0) Ur Specific [place] (1.001-1.035) Urine Protein (Negative) Urine Glucose (UA) (Negative) Urine Ketones (Negative) Urine Blood (Negative) Urine Nitrite (Negative) Urine Bilirubin (Negative) Urine Urobilinogen (<2.0) mg/dL Ur Leukocyte Esterase (Negative) Urine RBC (0-5) /hpf Urine WBC (0-5) /hpf Urine WBC Clumps (None) /hpf Ur Squamous Epith Cells (0-4) /hpf Urine Bacteria (None) /hpf Urine Mucus (None) /hpf Urine Yeast (Budding) (None) /hpf Stool Occult Blood (Negative) Serum Alcohol mg/dL 02/28/25 02/28/25 02/28/25 Range/Units 06:53 09:12 09:12 WBC 8.3 (3.8-10.6) k/uL RBC 3.21 L (4.30-5.90) m/uL Hgb 9.8 L (13.0-17.5) gm/dL Hct 30.9 L (39.0-53.0) % MCV 96.1 (80.0-100.0) fL MCH 30.4 (25.0-35.0) pg MCHC 31.6 (31.0-37.0) g/dL RDW 15.5 (11.5-15.5) % Plt Count 101 L (150-450) k/uL MPV 8.3 Neutrophils % 84 % Lymphocytes % 11 % Monocytes % 3 % Eosinophils % 1 % Basophils % 0 % Neutrophils # 7.0 (1.3-7.7) k/uL Lymphocytes # 0.9 L (1.0-4.8) k/uL Monocytes # 0.3 (0-1.0) k/uL Eosinophils # 0.1 (0-0.7) k/uL Basophils # 0.0 (0-0.2) k/uL Hypochromasia Moderate PT (10.0-12.5) sec INR (<1.2) APTT (22.0-30.0) sec Sodium 132 L (137-145) mmol/L Potassium 4.2 (3.5-5.1) mmol/L Chloride 101 (98-107) mmol/L Carbon Dioxide 18 L (22-30) mmol/L Anion Gap 13 mmol/L BUN 85 H (9-20) mg/dL Creatinine 5.73 H (0.66-1.25) mg/dL Est GFR (CKD-EPI)AfAm 11 (>60 ml/min/1.73 sqM) Est GFR (CKD-EPI)NonAf 10 (>60 ml/min/1.73 sqM) Glucose 144 H (74-99) mg/dL POC Glucose (mg/dL) (70-110) mg/dL POC Glu Tour Actor ID Lactic Ac Sepsis Rflx Plasma Lactic Acid Kip (0.7-2.0) mmol/L Calcium 7.2 L (8.4-10.2) mg/dL Phosphorus 4.6 H (2.5-4.5) mg/dL Magnesium 1.8 (1.6-2.3) mg/dL Total Bilirubin 0.6 (0.2-1.3) mg/dL AST 38 (17-59) U/L ALT 14 (4-49) U/L Alkaline Phosphatase 151 H (38-126) U/L Creatine Kinase (55-170) U/L Troponin I (0.000-0.034) ng/mL Total Protein 5.2 L (6.3-8.2) g/dL Albumin 2.8 L (3.5-5.0) g/dL Lipase 78 (23-300) U/L TSH (0.465-4.680) mIU/L Urine Color Urine Appearance (Clear) Urine pH (5.0-8.0) Ur Specific [place] (1.001-1.035) Urine Protein (Negative) Urine Glucose (UA) (Negative) Urine Ketones (Negative) Urine Blood (Negative) Urine Nitrite (Negative) Urine Bilirubin (Negative) Urine Urobilinogen (<2.0) mg/dL Ur Leukocyte Esterase (Negative) Urine RBC (0-5) /hpf Urine WBC (0-5) /hpf Urine WBC Clumps (None) /hpf Ur Squamous Epith Cells (0-4) /hpf Urine Bacteria (None) /hpf Urine Mucus (None) /hpf Urine Yeast (Budding) (None) /hpf Stool Occult Blood POSITIVE (Negative) Serum Alcohol mg/dL 02/28/25 02/28/25 02/28/25 Range/Units 09:12 09:12 11:42 WBC (3.8-10.6) k/uL RBC (4.30-5.90) m/uL Hgb (13.0-17.5) gm/dL Hct (39.0-53.0) % MCV (80.0-100.0) fL MCH (25.0-35.0) pg MCHC (31.0-37.0) g/dL RDW (11.5-15.5) % Plt Count (150-450) k/uL MPV Neutrophils % % Lymphocytes % % Monocytes % % Eosinophils % % Basophils % % Neutrophils # (1.3-7.7) k/uL Lymphocytes # (1.0-4.8) k/uL Monocytes # (0-1.0) k/uL Eosinophils # (0-0.7) k/uL Basophils # (0-0.2) k/uL Hypochromasia PT (10.0-12.5) sec INR (<1.2) APTT (22.0-30.0) sec Sodium (137-145) mmol/L Potassium (3.5-5.1) mmol/L Chloride (98-107) mmol/L Carbon Dioxide (22-30) mmol/L Anion Gap mmol/L BUN (9-20) mg/dL Creatinine (0.66-1.25) mg/dL Est GFR (CKD-EPI)AfAm (>60 ml/min/1.73 sqM) Est GFR (CKD-EPI)NonAf (>60 ml/min/1.73 sqM) Glucose (74-99) mg/dL POC Glucose (mg/dL) 132 H (70-110) mg/dL POC Glu Tour Actor ID Chito Karina Lactic Ac Sepsis Rflx Plasma Lactic Acid Kip (0.7-2.0) mmol/L Calcium (8.4-10.2) mg/dL Phosphorus (2.5-4.5) mg/dL Magnesium (1.6-2.3) mg/dL Total Bilirubin (0.2-1.3) mg/dL AST (17-59) U/L ALT (4-49) U/L Alkaline Phosphatase (38-126) U/L Creatine Kinase 216 H (55-170) U/L Troponin I 0.605 H* (0.000-0.034) ng/mL Total Protein (6.3-8.2) g/dL Albumin (3.5-5.0) g/dL Lipase (23-300) U/L TSH 0.985 (0.465-4.680) mIU/L Urine Color Urine Appearance (Clear) Urine pH (5.0-8.0) Ur Specific [place] (1.001-1.035) Urine Protein (Negative) Urine Glucose (UA) (Negative) Urine Ketones (Negative) Urine Blood (Negative) Urine Nitrite (Negative) Urine Bilirubin (Negative) Urine Urobilinogen (<2.0) mg/dL Ur Leukocyte Esterase (Negative) Urine RBC (0-5) /hpf Urine WBC (0-5) /hpf Urine WBC Clumps (None) /hpf Ur Squamous Epith Cells (0-4) /hpf Urine Bacteria (None) /hpf Urine Mucus (None) /hpf Urine Yeast (Budding) (None) /hpf Stool Occult Blood (Negative) Serum Alcohol mg/dL 02/28/25 Range/Units 11:51 WBC 7.1 (3.8-10.6) k/uL RBC 3.22 L (4.30-5.90) m/uL Hgb 9.4 L (13.0-17.5) gm/dL Hct 31.0 L (39.0-53.0) % MCV 96.3 (80.0-100.0) fL MCH 29.3 (25.0-35.0) pg MCHC 30.4 L (31.0-37.0) g/dL RDW 15.7 H (11.5-15.5) % Plt Count 101 L (150-450) k/uL MPV 8.9 Neutrophils % 84 % Lymphocytes % 12 % Monocytes % 3 % Eosinophils % 0 % Basophils % 0 % Neutrophils # 5.9 (1.3-7.7) k/uL Lymphocytes # 0.8 L (1.0-4.8) k/uL Monocytes # 0.2 (0-1.0) k/uL Eosinophils # 0.0 (0-0.7) k/uL Basophils # 0.0 (0-0.2) k/uL Hypochromasia PT (10.0-12.5) sec INR (<1.2) APTT (22.0-30.0) sec Sodium (137-145) mmol/L Potassium (3.5-5.1) mmol/L Chloride (98-107) mmol/L Carbon Dioxide (22-30) mmol/L Anion Gap mmol/L BUN (9-20) mg/dL Creatinine (0.66-1.25) mg/dL Est GFR (CKD-EPI)AfAm (>60 ml/min/1.73 sqM) Est GFR (CKD-EPI)NonAf (>60 ml/min/1.73 sqM) Glucose (74-99) mg/dL POC Glucose (mg/dL) (70-110) mg/dL POC Glu Tour Actor ID Lactic Ac Sepsis Rflx Plasma Lactic Acid Kip (0.7-2.0) mmol/L Calcium (8.4-10.2) mg/dL Phosphorus (2.5-4.5) mg/dL Magnesium (1.6-2.3) mg/dL Total Bilirubin (0.2-1.3) mg/dL AST (17-59) U/L ALT (4-49) U/L Alkaline Phosphatase (38-126) U/L Creatine Kinase (55-170) U/L Troponin I (0.000-0.034) ng/mL Total Protein (6.3-8.2) g/dL Albumin (3.5-5.0) g/dL Lipase (23-300) U/L TSH (0.465-4.680) mIU/L Urine Color Urine Appearance (Clear) Urine pH (5.0-8.0) Ur Specific [place] (1.001-1.035) Urine Protein (Negative) Urine Glucose (UA) (Negative) Urine Ketones (Negative) Urine Blood (Negative) Urine Nitrite (Negative) Urine Bilirubin (Negative) Urine Urobilinogen (<2.0) mg/dL Ur Leukocyte Esterase (Negative) Urine RBC (0-5) /hpf Urine WBC (0-5) /hpf Urine WBC Clumps (None) /hpf Ur Squamous Epith Cells (0-4) /hpf Urine Bacteria (None) /hpf Urine Mucus (None) /hpf Urine Yeast (Budding) (None) /hpf Stool Occult Blood (Negative) Serum Alcohol mg/dL Relevant physical examination: Patient has good pulses on both lower extremities. The right foot cannot be assessed since it is in a splint boot relative to a previous fracture. On his left great toe on the medial distal aspect he has a about a 1 cm ulceration which appears to be full-thickness. Impression: Ulceration left great toe. Numerous medical complaints and problems as delineated by medical consultations. Recommendation: At this point I would treat the toe simply by utilizing collagen silver i.e. Dayami which would be moistened and placed under a 2 x 2 moistened with saline then wrapped with gauze for protection. Prognosis for healing of this wound with proper care is fair. Would be happy to see this gentleman again if there are any further wound issues.
--- NOTE | 2025-02-28 13:31 | P.NPCON ---
History of Present Illness - Reason for Consult acute renal failure - History of Present Illness Patient is a 65-year-old male with history of type 2 diabetes, EtOH abuse, A-fib and DVT with underlying history of chronic kidney disease stage IIIb with baseline creatinine 1.6 to 1.7 mg/dL as of 02/05/2025. Patient is admitted to the hospital with complaints of increased weakness associated with nausea, vomiting and poor oral intake. He admits to increased alcohol intake as well. Blood pressure was low, 92/63 mmHg documented on initial admission. Serum creatinine was 7.0 on initial admission and decreased to 5.7 today. Bactrim noted on home med list along with diuretics and Farxiga. Patient states he has been voiding. Jo catheter has been placed. Currently patient is maintained on IV fluids. Past Medical History Past Medical History: Atrial Fibrillation, Blood Disorder, Diabetes Mellitus, Deep Vein Thrombosis (DVT), Renal Disease, Sleep Apnea/CPAP/BIPAP, Thyroid Disorder Additional Past Medical History / Comment(s): no CPAP/BIPAP. buerger's disease. DVT left leg 2021. hx diabetes - resolved after weight loss in 2000; stage 3 kidney disease. History of Any Multi-Drug Resistant Organisms: None Reported Past Surgical History: Bariatric Surgery, Cholecystectomy, Hernia Repair, Orthopedic Surgery Additional Past Surgical History / Comment(s): gastric bypass; Umbilical hernia, 6x hernia surgeries, fell & broke right hip in 2018 while in [place] & had surg with pin- states right leg is 1 inch and 3/4 shorter than left leg. Past Anesthesia/Blood Transfusion Reactions: No Reported Reaction Additional Past Anesthesia/Blood Transfusion Reaction / Comment(s): hx blood transfusions, last one in 2022, no problems Past Psychological History: Depression Smoking Status: Never smoker Past Alcohol Use History: None Reported Past Drug Use History: None Reported - Past Family History Father Family Medical History: Cancer Mother Family Medical History: Cancer Medications and Allergies Home Medications Medication Instructions Recorded Confirmed Type FLUoxetine HCL [PROzac] 40 mg PO DAILY 08/29/24 02/27/25 History Ferrous Sulfate [Feosol] 325 mg PO DAILY 08/29/24 02/27/25 History Folic Acid 1 mg PO DAILY 08/29/24 02/27/25 History Levothyroxine Sodium 125 mcg PO DAILY 08/29/24 02/27/25 History Tamsulosin [Flomax] 0.4 mg PO DAILY 08/29/24 02/27/25 History allopurinoL 100 mg PO DAILY 08/29/24 02/27/25 History calcitrioL 0.25 mcg PO DAILY 08/29/24 02/27/25 History Torsemide [Demadex] 10 mg PO DAILY 09/08/24 02/27/25 History Apixaban [Eliquis] 2.5 mg PO BID 01/23/25 02/27/25 History Cyanocobalamin (Vitamin B-12) 1,000 mcg PO DAILY 01/23/25 02/27/25 History [Vitamin B-12] Dapagliflozin Propanediol [Farxiga] 10 mg PO DAILY 01/23/25 02/27/25 History Melatonin 5 mg PO HS PRN tab 02/01/25 02/27/25 Rx Thiamine [Vitamin B-1] 100 mg PO DAILY tab 02/01/25 02/27/25 Rx Sulfamethox-Tmp 800-160Mg [Bactrim 1 tab PO Q12HR 02/27/25 02/27/25 History DS 800-160 mg] Allergies Allergy/AdvReac Type Severity Reaction Status Date / Time No Known Allergies Allergy Verified 02/27/25 17:50 Physical Exam Vitals: Vital Signs Temp Pulse Pulse Resp BP BP Pulse Ox 02/28/25 12:32 105 H 25 H 112/92 99 02/28/25 11:11 99 17 111/71 96 02/28/25 09:09 101 H 117/80 97 02/28/25 07:56 97.1 F L 93 17 104/71 99 02/28/25 04:00 98.4 F 97 12 115/76 100 02/28/25 01:06 92 20 105/72 98 02/27/25 23:35 94 20 116/81 97 02/27/25 21:42 98 20 112/73 96 02/27/25 18:14 101 H 19 119/73 96 02/27/25 16:06 99 19 92/63 90 L 02/27/25 15:27 98.2 F 93 20 109/67 96 Intake and Output 02/27/25 02/28/25 02/28/25 22:59 06:59 14:59 Output Total 400 325 Balance -400 -325 Output: Urine 400 325 Uretheral (Jo) 400 Other: # Bowel Movements 3 Weight 113.398 kg Patient is awake, lethargic, no acute distress Examination of the heart S1 and S2 Examination of the lungs bilateral breath sounds are heard Abdomen is soft nontender Examination of lower extremities shows no evidence of edema, chronic skin changes noted, right foot is in a boot Results - Lab Results Most recent lab results Calcium 7.2 mg/dL (8.4-10.2) L 02/28/25 09:12 Phosphorus 4.6 mg/dL (2.5-4.5) H 02/28/25 09:12 Magnesium 1.8 mg/dL (1.6-2.3) 02/28/25 09:12 02/28/25 11:51 02/28/25 09:12 Assessment and Plan Assessment: 1. Acute kidney injury, ATN, ischemic from low blood pressure and underlying infection. Possible urine retention, currently with indwelling Jo catheter. UA shows WBC 66 small blood and trace protein. Ultrasound shows mild dilatation of left renal collecting system and unable to visualize right kidney due to overlying gas 2. Chronic kidney disease stage IIIb with baseline creatinine 1.6 to 1.7 mg/dL secondary to nephrosclerosis and diabetic kidney disease 3. [place] metabolic acidosis secondary to acute kidney injury, maintained on bicarb drip, improved 4. A-fib with RVR, status post Cardizem 5. CKD mineral bone disorder maintained on calcitriol 6. Positive stool for occult blood with hemoglobin at 9.4 g/dL. No active bleeding noted Plan: Continue with IV bicarb Continue with antibiotics Repeat labs in a.m. Continue to hold off on Bactrim Follow-up on urine cultures No acute indication for hemodialysis today. Thank you for the consultation. We will continue to follow the patient with you during his hospitalization.
[2025-02-28] MEDS: METOPROLOL TARTRATE 25 MG TAB PO SCH (13:51)
--- NOTE | 2025-02-28 14:16 | P.CRDCN ---
History of Present Illness History of present illness: HISTORY OF PRESENT ILLNESS: This is a 65-year-old male with a past medical history significant for atrial fibrillation and alcohol abuse. 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 We have been asked to see the patient in consultation for SVT. Patient examined at the bedside in the emergency room. Patient presented to the hospital due to nausea, vomiting, and inability to urinate. Patient does report a history of alcohol abuse and drinks about 1/5 of alcohol a day. Patient was found to have acute kidney injury. This morning the patient went into SVT. He received adenosine x 2 with conversion to sinus mechanism. He is maintaining sinus mechanism at the time of examination. He denies any chest pain or shortness of breath. DIAGNOSTICS: - EKG reveals sinus tachycardia with no signs of acute ischemia - Chest xray negative for acute process - Laboratory data: WBC 7.1. Hemoglobin 9.4. Platelet count 101. Sodium 132. Potassium 4.2. BUN 85. Creatinine 5.73. Creatinine kinase 399. TSH 0.985. Troponin 0.605. 0.478 - Current home cardiac medications include Demadex 10 mg daily, Farxiga 10 mg daily, Eliquis 2.5 mg twice a day - Echocardiogram completed this admission reveals ejection fraction 55 to 60%, no obvious regional wall motion abnormalities, mild MR - Cardiac catheterization history: Patient denies REVIEW OF SYSTEMS: At the time of my exam: CONSTITUTIONAL: Denies fever or chills. HEENT: Denies blurred vision, vision changes, or eye pain. Denies hemoptysis CARDIOVASCULAR: Denies chest pain. Denies orthopnea. Denies PND. Denies palpitations RESPIRATORY: Denies shortness of breath. GASTROINTESTINAL: Denies abdominal pain. Denies nausea or vomiting. HEMATOLOGIC: Denies bleeding disorders. GENITOURINARY: Denies any blood in urine. SKIN: Denies pruitis. Denies rash. PHYSICAL EXAM: VITAL SIGNS: Reviewed. GENERAL: Well-developed in no acute distress. HEENT: Head is normocephalic. Pupils are equal, round. Sclerae anicteric. Mucous membranes of the mouth are moist. Neck supple. No JVD or thyromegaly LUNGS: Respirations even and unlabored. Lungs essentially clear to auscultation bilaterally. HEART: Regular rate and rhythm. S1 and S2 heard. ABDOMEN: Soft. Nondistended. Nontender. EXTREMITIES: Normal range of motion. No clubbing or cyanosis. Peripheral pulses intact. Blood noted to left great toe. Boot noted to right lower ext remity NEUROLOGIC: Awake and alert. Oriented x 3. ASSESSMENT: Nausea, vomiting and decreased oral intake Urinary retention Acute renal failure Elevated troponin, likely type II [place] secondary to poor renal clearance, no evidence of myocardial injury or ischemia SVT, with conversion to adenosine x 2 doses Possible GI bleed, Eliquis on hold Paroxysmal atrial fibrillation History of alcohol abuse Left great toe wound Recent surgery of right ankle Diabetes PLAN: 2D echo obtained and reviewed Eliquis remains on hold. General surgery has been consulted. Continue to monitor hemoglobin. Begin metoprolol titrate 25 mg twice a day Continue telemetry monitoring Abstinence from alcohol recommended Farxiga and Demadex remain on hold. Continue to monitor kidney function. Nephrology following. Further recommendations pending patient course Nurse practitioner note has been reviewed by physician. Signing provider agrees with the documented findings, assessment, and plan of care documented by CONFERENCE SERVICES MANAGER as a scribe. Past Medical History Past Medical History: Atrial Fibrillation, Blood Disorder, Diabetes Mellitus, Deep Vein Thrombosis (DVT), Renal Disease, Sleep Apnea/CPAP/BIPAP, Thyroid Disorder Additional Past Medical History / Comment(s): no CPAP/BIPAP. buerger's disease. DVT left leg 2021. hx diabetes - resolved after weight loss in 2000; stage 3 kidney disease. History of Any Multi-Drug Resistant Organisms: None Reported Past Surgical History: Bariatric Surgery, Cholecystectomy, Hernia Repair, Orthopedic Surgery Additional Past Surgical History / Comment(s): gastric bypass; Umbilical hernia, 6x hernia surgeries, fell & broke right hip in 2019 while in [place] & had surg with pin- states right leg is 1 inch and 3/4 shorter than left leg. Past Anesthesia/Blood Transfusion Reactions: No Reported Reaction Additional Past Anesthesia/Blood Transfusion Reaction / Comment(s): hx blood transfusions, last one in 2022, no problems Past Psychological History: Depression Smoking Status: Never smoker Past Alcohol Use History: None Reported Past Drug Use History: None Reported - Past Family History Father Family Medical History: Cancer Mother Family Medical History: Cancer Medications and Allergies Home Medications Medication Instructions Recorded Confirmed Type FLUoxetine HCL [PROzac] 40 mg PO DAILY 08/29/24 02/27/25 History Ferrous Sulfate [Feosol] 325 mg PO DAILY 08/29/24 02/27/25 History Folic Acid 1 mg PO DAILY 08/29/24 02/27/25 History Levothyroxine Sodium 125 mcg PO DAILY 08/29/24 02/27/25 History Tamsulosin [Flomax] 0.4 mg PO DAILY 08/29/24 02/27/25 History allopurinoL 100 mg PO DAILY 08/29/24 02/27/25 History calcitrioL 0.25 mcg PO DAILY 08/29/24 02/27/25 History Torsemide [Demadex] 10 mg PO DAILY 09/08/24 02/27/25 History Apixaban [Eliquis] 2.5 mg PO BID 01/23/25 02/27/25 History Cyanocobalamin (Vitamin B-12) 1,000 mcg PO DAILY 01/23/25 02/27/25 History [Vitamin B-12] Dapagliflozin Propanediol [Farxiga] 10 mg PO DAILY 01/23/25 02/27/25 History Melatonin 5 mg PO HS PRN tab 02/01/25 02/27/25 Rx Thiamine [Vitamin B-1] 100 mg PO DAILY tab 02/01/25 02/27/25 Rx Sulfamethox-Tmp 800-160Mg [Bactrim 1 tab PO Q12HR 02/27/25 02/27/25 History DS 800-160 mg] Allergies Allergy/AdvReac Type Severity Reaction Status Date / Time No Known Allergies Allergy Verified 02/27/25 17:50 Physical Exam Vitals: Vital Signs Temp Pulse Pulse Resp BP BP Pulse Ox 02/28/25 13:54 101 H 16 103/70 97 02/28/25 12:32 105 H 25 H 112/92 99 02/28/25 11:11 99 17 111/71 96 02/28/25 09:09 101 H 117/80 97 02/28/25 07:56 97.1 F L 93 17 104/71 99 02/28/25 04:00 98.4 F 97 12 115/76 100 02/28/25 01:06 92 20 105/72 98 02/27/25 23:35 94 20 116/81 97 02/27/25 21:42 98 20 112/73 96 02/27/25 18:14 101 H 19 119/73 96 02/27/25 16:06 99 19 92/63 90 L 02/27/25 15:27 98.2 F 93 20 109/67 96 Intake and Output 02/27/25 02/28/25 02/28/25 22:59 06:59 14:59 Output Total 400 325 Balance -400 -325 Output: Urine 400 325 Uretheral (Jo) 400 Other: # Bowel Movements 3 Weight 113.398 kg Results 02/28/25 11:51 02/28/25 09:12 Cardiac Enzymes 02/27/25 02/28/25 02/28/25 Range/Units 15:59 09:12 09:12 AST 45 38 (17-59) U/L Troponin I 0.605 H* (0.000-0.034) ng/mL 02/28/25 Range/Units 11:51 AST (17-59) U/L Troponin I 0.478 H* (0.000-0.034) ng/mL Coagulation 02/27/25 Range/Units 15:59 PT 12.8 H (10.0-12.5) sec APTT 28.6 (22.0-30.0) sec CBC 02/27/25 02/28/25 02/28/25 Range/Units 15:59 09:12 11:51 WBC 9.6 8.3 7.1 (3.8-10.6) k/uL RBC 3.38 L 3.21 L 3.22 L (4.30-5.90) m/uL Hgb 10.1 L 9.8 L 9.4 L (13.0-17.5) gm/dL Hct 32.6 L 30.9 L 31.0 L (39.0-53.0) % Plt Count 143 L D 101 L 101 L (150-450) k/uL Comprehensive Metabolic Panel 02/27/25 02/28/25 Range/Units 15:59 09:12 Sodium 128 L 132 L (137-145) mmol/L Potassium 5.5 H 4.2 (3.5-5.1) mmol/L Chloride 97 L 101 (98-107) mmol/L Carbon Dioxide 8 L* 18 L (22-30) mmol/L BUN 93 H 85 H (9-20) mg/dL Creatinine 7.00 H 5.73 H (0.66-1.25) mg/dL Glucose 147 H 144 H (74-99) mg/dL Calcium 6.6 L 7.2 L (8.4-10.2) mg/dL AST 45 38 (17-59) U/L ALT 15 14 (4-49) U/L Alkaline Phosphatase 169 H 151 H (38-126) U/L Total Protein 5.7 L 5.2 L (6.3-8.2) g/dL Albumin 3.2 L 2.8 L (3.5-5.0) g/dL Current Medications Generic Name Dose Route Start Last Admin Trade Name Freq PRN Reason Stop Dose Admin Allopurinol 100 mg 02/28/25 09:00 02/28/25 09:07 Allopurinol 100 Mg Tab PO 100 mg DAILY [place] Administration Calcitriol 0.25 mcg 02/28/25 09:00 02/28/25 09:07 Calcitriol 0.25 Mcg Cap PO 0.25 mcg DAILY [place] Administration Ferrous Sulfate 325 mg 02/28/25 09:00 02/28/25 09:07 Ferrous Sulfate 325 Mg Tab PO 325 mg DAILY [place] Administration Fluoxetine HCl 40 mg 02/28/25 09:00 02/28/25 09:06 Fluoxetine Hcl 20 Mg Cap PO 40 mg DAILY [place] Administration Folic Acid 1 mg 02/28/25 09:00 02/28/25 09:07 Folic Acid 1 Mg Tab PO 1 mg DAILY [place] Administration Sodium Bicarbonate 150 ml/ 1,150 mls @ 100 mls/hr 02/28/25 06:00 02/28/25 06:01 Dextrose/Water IV 100 mls/hr .[id number] [place] Administration Insulin Human Lispro 0 unit 02/27/25 21:00 02/28/25 12:24 Insulin Lispro (Humalog) 100 Unit/Ml 10 Ml Vl SQ Not Given ACHS [place] Protocol Levothyroxine Sodium 125 mcg 02/28/25 06:30 02/28/25 06:35 Levothyroxine 125 Mcg Tab PO 125 mcg 0630 [place] Administration Lorazepam 2 mg 02/27/25 19:35 Lorazepam 1 Mg/0.5 Ml Vial IV 03/01/25 19:36 Q10M PRN CIWA 16 or higher Lorazepam 2 mg 02/27/25 19:35 Lorazepam 1 Mg Tab PO Q2HR PRN Ciwa 10 or greater Lorazepam 2 mg 02/27/25 19:35 02/28/25 09:05 Lorazepam 1 Mg Tab PO 2 mg Q3HR PRN Administration Ciwa 8 To 9 Lorazepam 1 mg 02/27/25 19:43 Lorazepam 1 Mg/0.5 Ml Vial IV Q1HR PRN CIWA 10 to 15 Lorazepam 1 mg 02/27/25 19:44 02/27/25 21:48 Lorazepam 1 Mg/0.5 Ml Vial IV 1 mg Q2HR PRN Administration CIWA 8 or 9 Melatonin 5 mg 02/27/25 20:08 Melatonin 5 Mg Tablet PO HS PRN Insomnia Metoclopramide HCl 5 mg 02/27/25 23:07 02/27/25 23:50 Metoclopramide 5 Mg/Ml 2 Ml Vial IVP 5 mg Q6HR PRN Administration Nausea And Vomiting Metoprolol Tartrate 25 mg 02/28/25 13:30 02/28/25 13:51 Metoprolol Tartrate 25 Mg Tab PO 25 mg BID [place] Administration Morphine Sulfate 4 mg 02/27/25 17:36 Morphine Sulfate 4 Mg/Ml Syringe IV Q4HR PRN Severe Pain (Scale 7 to 10) Naloxone HCl 0.2 mg 02/27/25 17:36 Naloxone 0.4 Mg/Ml 1 Ml Vial IV Q2M PRN Opioid Reversal Ondansetron HCl 4 mg 02/27/25 17:36 02/27/25 21:49 Ondansetron 4 Mg/2 Ml Vial IVP 4 mg Q8HR PRN Administration Nausea And Vomiting Pantoprazole Sodium 40 mg 02/28/25 21:00 Pantoprazole 40 Mg/10 Ml Vial IV BID [place] Tamsulosin HCl 0.4 mg 02/28/25 09:00 02/28/25 09:07 Tamsulosin 0.4 Mg Cap.Er.24h PO 0.4 mg DAILY [place] Administration Thiamine HCl 100 mg 02/28/25 09:00 02/28/25 09:07 Thiamine 100 Mg Tab PO 100 mg DAILY [place] Administration Intake and Output 02/27/25 02/28/25 02/28/25 22:59 06:59 14:59 Output Total 400 325 Balance -400 -325 Output: Urine 400 325 Uretheral (Jo) 400 Other: # Bowel Movements 3 Weight 113.398 kg 02/28/25 11:51 02/28/25 09:12
--- NOTE | 2025-02-28 14:53 | P.GSCN ---
History of Present Illness Consult date: 02/28/25 History of present illness: CHIEF COMPLAINT: Nausea vomiting and diarrhea HISTORY OF PRESENT ILLNESS: This is a 65-year-old male who presented with nausea, vomiting and diarrhea. Patient has history of alcohol use and has been drinking more lately. He does report having emesis that was black in color and loose dark stools. Per nursing staff the emesis has been brownish in color. Patient reports having an EGD in the past which was unremarkable as well as a capsule endoscopy. His last colonoscopy was about 3 years ago. Hemoglobin on admission 10.1 with repeat hemoglobin of 9.4. Patient seen in the ER with crash cart at bedside. Patient has been having episodes of SVT and is being followed by cardiology service and received adenosine. Patient does take Eliquis at home for A-fib and last dose was 02/26/2025. He also takes iron at home. Patient denies any abdominal pain. Patient also with acute kidney injury followed by nephrology. PAST MEDICAL HISTORY: See below PAST SURGICAL HISTORY: See below MEDICATIONS: See below ALLERGIES: See below SOCIAL HISTORY: No illicit drug use. REVIEW OF SYSTEMS: CONSTITUTIONAL: Denies fever or chills. HEENT: Denies blurred vision, vision changes, or eye pain. Denies hemoptysis CARDIOVASCULAR: Denies chest pain or pressure. RESPIRATORY: No shortness of breath. GASTROINTESTINAL: See HPI for pertinent findings HEMATOLOGIC: Denies bleeding disorders. GENITOURINARY: Denies any blood in urine or increased urinary frequency. SKIN: Denies pruitis. Denies rash. PHYSICAL EXAM: VITAL SIGNS: Reviewed GENERAL: Well-developed in no acute distress. HEENT: No sclera icterus. Extraocular movements grossly intact. Moist buccal mucosa. Head is atraumatic, normocephalic. No nasal drainage. ABDOMEN: Soft. Nondistended. Nontender. NEUROLOGIC: Alert and oriented. Cranial nerves II through XII grossly intact. LABORATORY DATA: WBC 7.1 Hgb 10.1 down to 9.4 platelets 101 INR 1.2 Sodium 132 potassium is 4.2 creatinine 5.73 elevated troponins EtOH level 74 Stool for occult blood positive IMAGING: ASSESSMENT: 1. GI bleed with coffee-ground emesis and dark stools 2. Anemia 3. History of A-fib on anticoagulation 4. SVT 5. Acute kidney injury 6. History of alcohol abuse 7. Elevated troponins PLAN: -Continue to monitor for any signs or symptoms of bleeding -Continue to monitor hemoglobin -Continue IV Protonix -Hold Eliquis -Continue cardiac workup -Acute kidney injury managed by nephrology -No plans for endoscopy at this time. Plan for EGD when patient is medically stable Physician Manufacturer note has been reviewed by physician. Signing provider agrees with the documented findings, assessment, and plan of care. Attestation Patient seen and examined at bedside. Presented with chief complaint of nausea, vomiting and diarrhea. He does have history of alcohol use. There was concern for coffee-ground emesis and dark stools and patient found to have anemia with hemoglobin of 10.1 with repeat level of 9.4. Currently, he does not appear to have any active bleeding. He does take anticoagulation. While in the ER, he was found to have SVT and this appears to have resolved at this time. Recommend continued management from cardiology and nephrology with possibility of EGD once medically stable. Lissett Estevez, DO Past Medical History Past Medical History: Atrial Fibrillation, Blood Disorder, Diabetes Mellitus, Deep Vein Thrombosis (DVT), Renal Disease, Sleep Apnea/CPAP/BIPAP, Thyroid Disorder Additional Past Medical History / Comment(s): no CPAP/BIPAP. buerger's disease. DVT left leg 2021. hx diabetes - resolved after weight loss in 2000; stage 3 kidney disease. History of Any Multi-Drug Resistant Organisms: None Reported Past Surgical History: Bariatric Surgery, Cholecystectomy, Hernia Repair, Orthopedic Surgery Additional Past Surgical History / Comment(s): gastric bypass; Umbilical hernia, 6x hernia surgeries, fell & broke right hip in 2019 while in [place] & had surg with pin- states right leg is 1 inch and 3/4 shorter than left leg. Past Anesthesia/Blood Transfusion Reactions: No Reported Reaction Additional Past Anesthesia/Blood Transfusion Reaction / Comm: hx blood transfusions, last one in 2022, no problems Past Psychological History: Depression Smoking Status: Never smoker Past Alcohol Use History: None Reported Past Drug Use History: None Reported - Past Family History Father Family Medical History: Cancer Mother Family Medical History: Cancer Medications and Allergies Home Medications Medication Instructions Recorded Confirmed Type FLUoxetine HCL [PROzac] 40 mg PO DAILY 08/29/24 02/27/25 History Ferrous Sulfate [Feosol] 325 mg PO DAILY 08/29/24 02/27/25 History Folic Acid 1 mg PO DAILY 08/29/24 02/27/25 History Levothyroxine Sodium 125 mcg PO DAILY 08/29/24 02/27/25 History Tamsulosin [Flomax] 0.4 mg PO DAILY 08/29/24 02/27/25 History allopurinoL 100 mg PO DAILY 08/29/24 02/27/25 History calcitrioL 0.25 mcg PO DAILY 08/29/24 02/27/25 History Torsemide [Demadex] 10 mg PO DAILY 09/08/24 02/27/25 History Apixaban [Eliquis] 2.5 mg PO BID 01/23/25 02/27/25 History Cyanocobalamin (Vitamin B-12) 1,000 mcg PO DAILY 01/23/25 02/27/25 History [Vitamin B-12] Dapagliflozin Propanediol [Farxiga] 10 mg PO DAILY 01/23/25 02/27/25 History Melatonin 5 mg PO HS PRN tab 02/01/25 02/27/25 Rx Thiamine [Vitamin B-1] 100 mg PO DAILY tab 02/01/25 02/27/25 Rx Sulfamethox-Tmp 800-160Mg [Bactrim 1 tab PO Q12HR 02/27/25 02/27/25 History DS 800-160 mg] Allergies Allergy/AdvReac Type Severity Reaction Status Date / Time No Known Allergies Allergy Verified 02/27/25 17:50 Surgical - Exam Osteopathic Statement: *. No significant issues noted on an osteopathic structural exam other than those noted in the History and Physical/Consult. Vital Signs Temp Pulse Resp BP Pulse Ox 98.2 F 93 20 109/67 96 02/27/25 15:27 02/27/25 15:27 02/27/25 15:27 02/27/25 15:27 02/27/25 15:27 Results - Labs 02/28/25 11:51 02/28/25 09:12 Abnormal Lab Results - Last 24 Hours (Table) 02/27/25 02/27/25 02/27/25 Range/Units 15:59 15:59 15:59 RBC 3.38 L (4.30-5.90) m/uL Hgb 10.1 L (13.0-17.5) gm/dL Hct 32.6 L (39.0-53.0) % MCHC (31.0-37.0) g/dL RDW 15.8 H (11.5-15.5) % Plt Count 143 L D (150-450) k/uL Neutrophils # 8.2 H (1.3-7.7) k/uL Lymphocytes # 0.9 L (1.0-4.8) k/uL PT 12.8 H (10.0-12.5) sec INR 1.2 H (<1.2) Sodium 128 L (137-145) mmol/L Potassium 5.5 H (3.5-5.1) mmol/L Chloride 97 L (98-107) mmol/L Carbon Dioxide 8 L* (22-30) mmol/L BUN 93 H (9-20) mg/dL Creatinine 7.00 H (0.66-1.25) mg/dL Glucose 147 H (74-99) mg/dL POC Glucose (mg/dL) (70-110) mg/dL Plasma Lactic Acid Kip (0.7-2.0) mmol/L Calcium 6.6 L (8.4-10.2) mg/dL Phosphorus 6.7 H (2.5-4.5) mg/dL Alkaline Phosphatase 169 H (38-126) U/L Creatine Kinase (55-170) U/L Troponin I (0.000-0.034) ng/mL Total Protein 5.7 L (6.3-8.2) g/dL Albumin 3.2 L (3.5-5.0) g/dL Urine Protein (Negative) Urine Blood (Negative) Ur Leukocyte Esterase (Negative) Urine RBC (0-5) /hpf Urine WBC (0-5) /hpf Urine WBC Clumps (None) /hpf Urine Bacteria (None) /hpf Urine Mucus (None) /hpf Urine Yeast (Budding) (None) /hpf 02/27/25 02/27/25 02/27/25 Range/Units 15:59 15:59 17:28 RBC (4.30-5.90) m/uL Hgb (13.0-17.5) gm/dL Hct (39.0-53.0) % MCHC (31.0-37.0) g/dL RDW (11.5-15.5) % Plt Count (150-450) k/uL Neutrophils # (1.3-7.7) k/uL Lymphocytes # (1.0-4.8) k/uL PT (10.0-12.5) sec INR (<1.2) Sodium (137-145) mmol/L Potassium (3.5-5.1) mmol/L Chloride (98-107) mmol/L Carbon Dioxide (22-30) mmol/L BUN (9-20) mg/dL Creatinine (0.66-1.25) mg/dL Glucose (74-99) mg/dL POC Glucose (mg/dL) (70-110) mg/dL Plasma Lactic Acid Kip 4.6 H* (0.7-2.0) mmol/L Calcium (8.4-10.2) mg/dL Phosphorus (2.5-4.5) mg/dL Alkaline Phosphatase (38-126) U/L Creatine Kinase 399 H (55-170) U/L Troponin I (0.000-0.034) ng/mL Total Protein (6.3-8.2) g/dL Albumin (3.5-5.0) g/dL Urine Protein Trace H (Negative) Urine Blood Small H (Negative) Ur Leukocyte Esterase Large H (Negative) Urine RBC 6 H (0-5) /hpf Urine WBC 66 H (0-5) /hpf Urine WBC Clumps Few H (None) /hpf Urine Bacteria Rare H (None) /hpf Urine Mucus Rare H (None) /hpf Urine Yeast (Budding) Moderate H (None) /hpf 02/27/25 02/27/25 02/28/25 Range/Units 19:01 21:35 06:04 RBC (4.30-5.90) m/uL Hgb (13.0-17.5) gm/dL Hct (39.0-53.0) % MCHC (31.0-37.0) g/dL RDW (11.5-15.5) % Plt Count (150-450) k/uL Neutrophils # (1.3-7.7) k/uL Lymphocytes # (1.0-4.8) k/uL PT (10.0-12.5) sec INR (<1.2) Sodium (137-145) mmol/L Potassium (3.5-5.1) mmol/L Chloride (98-107) mmol/L Carbon Dioxide (22-30) mmol/L BUN (9-20) mg/dL Creatinine (0.66-1.25) mg/dL Glucose (74-99) mg/dL POC Glucose (mg/dL) 151 H 130 H (70-110) mg/dL Plasma Lactic Acid Kip 2.8 H* (0.7-2.0) mmol/L Calcium (8.4-10.2) mg/dL Phosphorus (2.5-4.5) mg/dL Alkaline Phosphatase (38-126) U/L Creatine Kinase (55-170) U/L Troponin I (0.000-0.034) ng/mL Total Protein (6.3-8.2) g/dL Albumin (3.5-5.0) g/dL Urine Protein (Negative) Urine Blood (Negative) Ur Leukocyte Esterase (Negative) Urine RBC (0-5) /hpf Urine WBC (0-5) /hpf Urine WBC Clumps (None) /hpf Urine Bacteria (None) /hpf Urine Mucus (None) /hpf Urine Yeast (Budding) (None) /hpf 02/28/25 02/28/25 02/28/25 Range/Units 09:12 09:12 09:12 RBC 3.21 L (4.30-5.90) m/uL Hgb 9.8 L (13.0-17.5) gm/dL Hct 30.9 L (39.0-53.0) % MCHC (31.0-37.0) g/dL RDW (11.5-15.5) % Plt Count 101 L (150-450) k/uL Neutrophils # (1.3-7.7) k/uL Lymphocytes # 0.9 L (1.0-4.8) k/uL PT (10.0-12.5) sec INR (<1.2) Sodium 132 L (137-145) mmol/L Potassium (3.5-5.1) mmol/L Chloride (98-107) mmol/L Carbon Dioxide 18 L (22-30) mmol/L BUN 85 H (9-20) mg/dL Creatinine 5.73 H (0.66-1.25) mg/dL Glucose 144 H (74-99) mg/dL POC Glucose (mg/dL) (70-110) mg/dL Plasma Lactic Acid Kip (0.7-2.0) mmol/L Calcium 7.2 L (8.4-10.2) mg/dL Phosphorus 4.6 H (2.5-4.5) mg/dL Alkaline Phosphatase 151 H (38-126) U/L Creatine Kinase (55-170) U/L Troponin I 0.605 H* (0.000-0.034) ng/mL Total Protein 5.2 L (6.3-8.2) g/dL Albumin 2.8 L (3.5-5.0) g/dL Urine Protein (Negative) Urine Blood (Negative) Ur Leukocyte Esterase (Negative) Urine RBC (0-5) /hpf Urine WBC (0-5) /hpf Urine WBC Clumps (None) /hpf Urine Bacteria (None) /hpf Urine Mucus (None) /hpf Urine Yeast (Budding) (None) /hpf 02/28/25 02/28/25 02/28/25 Range/Units 09:12 11:42 11:51 RBC 3.22 L (4.30-5.90) m/uL Hgb 9.4 L (13.0-17.5) gm/dL Hct 31.0 L (39.0-53.0) % MCHC 30.4 L (31.0-37.0) g/dL RDW 15.7 H (11.5-15.5) % Plt Count 101 L (150-450) k/uL Neutrophils # (1.3-7.7) k/uL Lymphocytes # 0.8 L (1.0-4.8) k/uL PT (10.0-12.5) sec INR (<1.2) Sodium (137-145) mmol/L Potassium (3.5-5.1) mmol/L Chloride (98-107) mmol/L Carbon Dioxide (22-30) mmol/L BUN (9-20) mg/dL Creatinine (0.66-1.25) mg/dL Glucose (74-99) mg/dL POC Glucose (mg/dL) 132 H (70-110) mg/dL Plasma Lactic Acid Kip (0.7-2.0) mmol/L Calcium (8.4-10.2) mg/dL Phosphorus (2.5-4.5) mg/dL Alkaline Phosphatase (38-126) U/L Creatine Kinase 216 H (55-170) U/L Troponin I (0.000-0.034) ng/mL Total Protein (6.3-8.2) g/dL Albumin (3.5-5.0) g/dL Urine Protein (Negative) Urine Blood (Negative) Ur Leukocyte Esterase (Negative) Urine RBC (0-5) /hpf Urine WBC (0-5) /hpf Urine WBC Clumps (None) /hpf Urine Bacteria (None) /hpf Urine Mucus (None) /hpf Urine Yeast (Budding) (None) /hpf 02/28/25 Range/Units 11:51 RBC (4.30-5.90) m/uL Hgb (13.0-17.5) gm/dL Hct (39.0-53.0) % MCHC (31.0-37.0) g/dL RDW (11.5-15.5) % Plt Count (150-450) k/uL Neutrophils # (1.3-7.7) k/uL Lymphocytes # (1.0-4.8) k/uL PT (10.0-12.5) sec INR (<1.2) Sodium (137-145) mmol/L Potassium (3.5-5.1) mmol/L Chloride (98-107) mmol/L Carbon Dioxide (22-30) mmol/L BUN (9-20) mg/dL Creatinine (0.66-1.25) mg/dL Glucose (74-99) mg/dL POC Glucose (mg/dL) (70-110) mg/dL Plasma Lactic Acid Kip (0.7-2.0) mmol/L Calcium (8.4-10.2) mg/dL Phosphorus (2.5-4.5) mg/dL Alkaline Phosphatase (38-126) U/L Creatine Kinase (55-170) U/L Troponin I 0.478 H* (0.000-0.034) ng/mL Total Protein (6.3-8.2) g/dL Albumin (3.5-5.0) g/dL Urine Protein (Negative) Urine Blood (Negative) Ur Leukocyte Esterase (Negative) Urine RBC (0-5) /hpf Urine WBC (0-5) /hpf Urine WBC Clumps (None) /hpf Urine Bacteria (None) /hpf Urine Mucus (None) /hpf Urine Yeast (Budding) (None) /hpf Diabetes panel 02/27/25 02/28/25 Range/Units 15:59 09:12 Sodium 128 L 132 L (137-145) mmol/L Potassium 5.5 H 4.2 (3.5-5.1) mmol/L Chloride 97 L 101 (98-107) mmol/L Carbon Dioxide 8 L* 18 L (22-30) mmol/L BUN 93 H 85 H (9-20) mg/dL Creatinine 7.00 H 5.73 H (0.66-1.25) mg/dL Glucose 147 H 144 H (74-99) mg/dL Calcium 6.6 L 7.2 L (8.4-10.2) mg/dL AST 45 38 (17-59) U/L ALT 15 14 (4-49) U/L Alkaline Phosphatase 169 H 151 H (38-126) U/L Total Protein 5.7 L 5.2 L (6.3-8.2) g/dL Albumin 3.2 L 2.8 L (3.5-5.0) g/dL Thyroid panel 02/28/25 Range/Units 09:12 TSH 0.985 (0.465-4.680) mIU/L Calcium panel 02/27/25 02/28/25 Range/Units 15:59 09:12 Calcium 6.6 L 7.2 L (8.4-10.2) mg/dL Phosphorus 6.7 H 4.6 H (2.5-4.5) mg/dL Albumin 3.2 L 2.8 L (3.5-5.0) g/dL Pituitary panel 02/27/25 02/28/25 02/28/25 Range/Units 15:59 09:12 09:12 Sodium 128 L 132 L (137-145) mmol/L Potassium 5.5 H 4.2 (3.5-5.1) mmol/L Chloride 97 L 101 (98-107) mmol/L Carbon Dioxide 8 L* 18 L (22-30) mmol/L BUN 93 H 85 H (9-20) mg/dL Creatinine 7.00 H 5.73 H (0.66-1.25) mg/dL Glucose 147 H 144 H (74-99) mg/dL Calcium 6.6 L 7.2 L (8.4-10.2) mg/dL TSH 0.985 (0.465-4.680) mIU/L Adrenal panel 02/27/25 02/28/25 Range/Units 15:59 09:12 Sodium 128 L 132 L (137-145) mmol/L Potassium 5.5 H 4.2 (3.5-5.1) mmol/L Chloride 97 L 101 (98-107) mmol/L Carbon Dioxide 8 L* 18 L (22-30) mmol/L BUN 93 H 85 H (9-20) mg/dL Creatinine 7.00 H 5.73 H (0.66-1.25) mg/dL Glucose 147 H 144 H (74-99) mg/dL Calcium 6.6 L 7.2 L (8.4-10.2) mg/dL Total Bilirubin 0.5 0.6 (0.2-1.3) mg/dL AST 45 38 (17-59) U/L ALT 15 14 (4-49) U/L Alkaline Phosphatase 169 H 151 H (38-126) U/L Total Protein 5.7 L 5.2 L (6.3-8.2) g/dL Albumin 3.2 L 2.8 L (3.5-5.0) g/dL
[2025-02-28 17:39] LABS: Glucose,Whole Blood 119 mg/dL (70-110)
[2025-02-28 18:28] LABS: Basophils % (A) 0 %; Eosinophils % (A) 0 %; HCT 30.1 % (39.0-53.0); HGB 9.5 gm/dL (13.0-17.5); Hypochromasia Marked; Lymphocytes # (A) 1.5 k/uL (1.0-4.8); Lymphocytes % (A) 22 %; MCH 30.4 pg (25.0-35.0); MCHC 31.5 g/dL (31.0-37.0); MCV 96.3 fL (80.0-100.0); Mean Platelet Volume 8.8; Monocytes # (A) 0.2 k/uL (0-1.0); Monocytes % (A) 3 %; Neutrophils % (A) 74 %; RBC 3.13 m/uL (4.30-5.90); RDW 15.5 % (11.5-15.5); WBC 6.8 k/uL (3.8-10.6)
[2025-02-28 18:31] LABS: Platelet Count 92 k/uL (150-450)
[2025-02-28 21:03] LABS: Glucose,Whole Blood 118 mg/dL (70-110)
[2025-02-28] MEDS: PANTOPRAZOLE 40 MG/10 ML VIAL IV SCH (21:12)
[2025-03-01 00:55] LABS: Basophils % (A) 0 %; Eosinophils # (A) 0.1 k/uL (0-0.7); Eosinophils % (A) 2 %; HCT 28.9 % (39.0-53.0); HGB 8.9 gm/dL (13.0-17.5); Lymphocytes # (A) 1.8 k/uL (1.0-4.8); Lymphocytes % (A) 28 %; MCH 29.8 pg (25.0-35.0); MCHC 30.9 g/dL (31.0-37.0); MCV 96.4 fL (80.0-100.0); Mean Platelet Volume 8.8; Monocytes # (A) 0.3 k/uL (0-1.0); Monocytes % (A) 4 %; Neutrophils # (A) 4.2 k/uL (1.3-7.7); Neutrophils % (A) 66 %; RDW 15.8 % (11.5-15.5); WBC 6.4 k/uL (3.8-10.6)
[2025-03-01 01:05] LABS: Platelet Count 96 k/uL (150-450)
[2025-03-01 06:17] LABS: Glucose,Whole Blood 135 mg/dL (70-110)
[2025-03-01 07:57] LABS: African American GFR (CKD) 13 (>60 ml/min/1.73 sqM); Anion Gap 10 mmol/L; Blood Urea Nitrogen 76 mg/dL (9-20); Calcium 7.5 mg/dL (8.4-10.2); Carbon Dioxide 24 mmol/L (22-30); Chloride 98 mmol/L (98-107); Glucose 102 mg/dL (74-99); Non-African American GFR(CKD) 11 (>60 ml/min/1.73 sqM); Potassium 3.9 mmol/L (3.5-5.1); Sodium 132 mmol/L (137-145)
--- NOTE | 2025-03-01 10:51 | P.PN ---
Subjective Progress Note Date: 03/01/25 65-year-old male with CKD stage III, [id number] diabetes mellitus, alcohol use disorder, depression presenting with nausea, vomiting, diarrhea, and and urinary retention. Patient noticed that he hasn't urinated for the past 3 days despite normal oral intake. States that he has been feeling nauseous and has been vomiting nonbloody emesis almost every day for the past 3 days. He admits to increased alcohol intake this past weekend stating that he drinks about 1/5 of [place]. His last drink was yesterday of the same type of alcohol. 02/28 - He was seen and examined at bedside this morning, remaining in the ED. He was noted by the nurse to have been in a run of SVT. At the time he had no complaints of chest pain, worsening shortness of breath or pressure. Vagal maneuvers were attempted to have him return to sinus rhythm, however were unsuccessful. Administered a total of 18 mg adenosine for return to sinus rhythm. He had no complaints at that time. Troponins were checked at the time which found to be elevated at 0.605, cardiology was then consulted. Antibiotics were discontinued as he showed no signs or symptoms of having a UTI. 03/01 - He is seen and examined this morning, now on the 3rd floor. States that he has been feeling well, with no acute events overnight. He has no acute complaints at this time. Continues to deny chest pain, shortness of breath, nausea or vomiting. REVIEW OF SYSTEMS: Pertinent positives and negatives noted in HPI. Physical Exam: Vital signs reviewed General: Mild distress, appears at stated age, normal weight Derm: no unusual rashes/lesions, warm Head: atraumatic, normocephalic, symmetric Eyes: EOMI, anicteric sclera, pupils equal round reactive to light ENT: Nose and ears atraumatic Mouth: no lip lesion, mucus membranes moist Cardiovascular: S1S2 reg, no murmur, no edema Lungs: CTA bilateral, no rhonchi, no rales, no accessory muscle use Abdominal: soft, non-tender to palpation, no guarding Ext: muscle strength 5 out of 5 in all 4 extremities grossly, left first digit wound, walking boot on right leg Neuro: CN II-XI grossly intact, no gross focal neuro deficits Psych: Alert, oriented to person, place, and time Data Received Today: Labs WBC 6.4, hemoglobin 8.9, hematocrit 28.9, platelet 96; sodium 132, potassium 3.9, BUN 76, creatinine 4.93, calcium 7.5 -Troponin trend: 0.605 -> 0.478 -> 0.439 Imagining: No new imaging Assessment and plan 65-year-old male with CKD stage III, [id number]-[id number] diabetes mellitus, alcohol use disorder, depression presenting with nausea, vomiting, diarrhea, and and urinary retention. ED documentation reviewed. Discussed with patient. The patient is admitted with an anticipated greater than 2 midnight stay for evaluation of alcoholic ketoacidosis and ASHA. #ASHA, with components of prerenal and postrenal, on CKD stage IIIb with baseline creatinine 1.6-1.7 # Metabolic acidosis, resolved #Hyperkalemia, resolved #Hyponatremia #Dehydration #Urinary retention #Anemia chronic disease secondary to CKD stage IIIb #Thrombocytopenia #Possible element of rhabdomyolysis #Hypocalcemia hyperphosphatemia likely secondary to CKD stage IIIb -Renal/bladder ultrasound displaying limited evaluation of right kidney, mild dilatation of the left renal collecting system -Discontinued D5W/sodium bicarb; initiated on LR at 100 cc/h -Improved this morning with fluid resuscitation; -Initial CK 399, repeat ordered currently pending -Continue with urinary catheter -Thiamine 100 mg PO QD -Continue calcitriol 0.25 mcg PO QD -Continue ferrous sulfate 325 mg PO QD -Iron panel, ferritin, transferrin, reticulocyte count ordered, currently pending -Monitor intake/output -Monitor for withdrawal symptoms -Ativan per [facility] protocol, monitor electrolytes, monitor for seizure, hypoglycemia precaution -Nephrology consulted #Acute SVT #Type II NSTEMI possibly secondary to above vs metabolic abnormalities -Episode of SVT this morning, with a rate of 165 -Administered total of 18 mg adenosine to return to sinus rhythm -Trend troponins; 0.605 -> 0.478 -> 0.439 -Echocardiogram ordered, currently pending -TSH 0.985 -Cardiology following -Cardiac monitoring #Suspected upper and lower GI bleed -Hemoglobin this morning 8.9 -Protonix 80 mg IVP once , then 40 mg ivp BID -General Surgery consulted; considering EGD when patient is medically stable, possibly tomorrow #No signs of urinary tract infection -Antibiotics discontinued #Left first toe wound -podiatry consult -wound care consult #[id number] diabetes mellitus -Humalog insulin SQ sliding scale -Accu-Cheks ACHS -Hypoglycemic precaution -Holding [place] #BPH -Flomax 0.4 mg p.o. daily DVT ppx: Hold Eliquis GI PPx: Protonix 40 mg IV twice daily Code status: Full code F: LR at 100 cc/h E: Replete as needed N: Clear liquid diet A: Ambulatory at baseline Anticipated discharge place: Pending clinical course Anticipated discharge time: Pending clinical course Dictation was produced using [employer] dictation software. please excuse any grammatical, word or spelling errors. Oli Chen MD PGY-1 IM I have seen and evaluated the patient today. Discussed with the resident and agree with the residents finding and plan as documented in the resident's note. Changes highlighted in blue font. Objective - Vital Signs Vital signs: Vital Signs Temp 97.5 F L 03/01/25 04:46 Pulse 79 03/01/25 04:46 Resp 16 03/01/25 04:46 BP 102/62 03/01/25 04:46 Pulse Ox 97 03/01/25 04:46 FiO2 Intake & Output 02/28/25 02/28/25 03/01/25 06:59 18:59 06:59 Output Total 900 Balance -900 Weight 106.5 kg Output: Urine 900 Uretheral (Jo) 200 Other: Voiding Method Indwelling Catheter # Bowel Movements 3 0 - Labs CBC & Chem 7: 03/01/25 00:21 03/01/25 06:22 Labs: Abnormal Lab Results - Last 24 Hours (Table) 02/28/25 02/28/25 02/28/25 Range/Units 09:12 09:12 09:12 RBC 3.21 L (4.30-5.90) m/uL Hgb 9.8 L (13.0-17.5) gm/dL Hct 30.9 L (39.0-53.0) % MCHC (31.0-37.0) g/dL RDW (11.5-15.5) % Plt Count 101 L (150-450) k/uL Lymphocytes # 0.9 L (1.0-4.8) k/uL Sodium 132 L (137-145) mmol/L Carbon Dioxide 18 L (22-30) mmol/L BUN 85 H (9-20) mg/dL Creatinine 5.73 H (0.66-1.25) mg/dL Glucose 144 H (74-99) mg/dL POC Glucose (mg/dL) (70-110) mg/dL Calcium 7.2 L (8.4-10.2) mg/dL Phosphorus 4.6 H (2.5-4.5) mg/dL Alkaline Phosphatase 151 H (38-126) U/L Creatine Kinase (55-170) U/L Troponin I 0.605 H* (0.000-0.034) ng/mL Total Protein 5.2 L (6.3-8.2) g/dL Albumin 2.8 L (3.5-5.0) g/dL 02/28/25 02/28/25 02/28/25 Range/Units 09:12 11:42 11:51 RBC 3.22 L (4.30-5.90) m/uL Hgb 9.4 L (13.0-17.5) gm/dL Hct 31.0 L (39.0-53.0) % MCHC 30.4 L (31.0-37.0) g/dL RDW 15.7 H (11.5-15.5) % Plt Count 101 L (150-450) k/uL Lymphocytes # 0.8 L (1.0-4.8) k/uL Sodium (137-145) mmol/L Carbon Dioxide (22-30) mmol/L BUN (9-20) mg/dL Creatinine (0.66-1.25) mg/dL Glucose (74-99) mg/dL POC Glucose (mg/dL) 132 H (70-110) mg/dL Calcium (8.4-10.2) mg/dL Phosphorus (2.5-4.5) mg/dL Alkaline Phosphatase (38-126) U/L Creatine Kinase 216 H (55-170) U/L Troponin I (0.000-0.034) ng/mL Total Protein (6.3-8.2) g/dL Albumin (3.5-5.0) g/dL 02/28/25 02/28/25 02/28/25 Range/Units 11:51 15:23 17:37 RBC (4.30-5.90) m/uL Hgb (13.0-17.5) gm/dL Hct (39.0-53.0) % MCHC (31.0-37.0) g/dL RDW (11.5-15.5) % Plt Count (150-450) k/uL Lymphocytes # (1.0-4.8) k/uL Sodium (137-145) mmol/L Carbon Dioxide (22-30) mmol/L BUN (9-20) mg/dL Creatinine (0.66-1.25) mg/dL Glucose (74-99) mg/dL POC Glucose (mg/dL) 119 H (70-110) mg/dL Calcium (8.4-10.2) mg/dL Phosphorus (2.5-4.5) mg/dL Alkaline Phosphatase (38-126) U/L Creatine Kinase (55-170) U/L Troponin I 0.478 H* 0.439 H* (0.000-0.034) ng/mL Total Protein (6.3-8.2) g/dL Albumin (3.5-5.0) g/dL 02/28/25 02/28/25 03/01/25 Range/Units 18:19 20:58 00:21 RBC 3.13 L 3.00 L (4.30-5.90) m/uL Hgb 9.5 L 8.9 L (13.0-17.5) gm/dL Hct 30.1 L 28.9 L (39.0-53.0) % MCHC 30.9 L (31.0-37.0) g/dL RDW 15.8 H (11.5-15.5) % Plt Count 92 L 96 L (150-450) k/uL Lymphocytes # (1.0-4.8) k/uL Sodium (137-145) mmol/L Carbon Dioxide (22-30) mmol/L BUN (9-20) mg/dL Creatinine (0.66-1.25) mg/dL Glucose (74-99) mg/dL POC Glucose (mg/dL) 118 H (70-110) mg/dL Calcium (8.4-10.2) mg/dL Phosphorus (2.5-4.5) mg/dL Alkaline Phosphatase (38-126) U/L Creatine Kinase (55-170) U/L Troponin I (0.000-0.034) ng/mL Total Protein (6.3-8.2) g/dL Albumin (3.5-5.0) g/dL 03/01/25 Range/Units 06:15 RBC (4.30-5.90) m/uL Hgb (13.0-17.5) gm/dL Hct (39.0-53.0) % MCHC (31.0-37.0) g/dL RDW (11.5-15.5) % Plt Count (150-450) k/uL Lymphocytes # (1.0-4.8) k/uL Sodium (137-145) mmol/L Carbon Dioxide (22-30) mmol/L BUN (9-20) mg/dL Creatinine (0.66-1.25) mg/dL Glucose (74-99) mg/dL POC Glucose (mg/dL) 135 H (70-110) mg/dL Calcium (8.4-10.2) mg/dL Phosphorus (2.5-4.5) mg/dL Alkaline Phosphatase (38-126) U/L Creatine Kinase (55-170) U/L Troponin I (0.000-0.034) ng/mL Total Protein (6.3-8.2) g/dL Albumin (3.5-5.0) g/dL Microbiology - Last 24 Hours (Table) 02/27/25 18:52 Blood Culture - Preliminary Blood
[2025-03-01] MEDS: LACTATED RINGERS 1,000 ML IV SCH (11:14)
[2025-03-01 11:20] LABS: Glucose,Whole Blood 130 mg/dL (70-110)
--- NOTE | 2025-03-01 11:22 | P.PN ---
Subjective HISTORY OF PRESENT ILLNESS: This is a 65-year-old male with a past medical history significant for atrial fibrillation and alcohol abuse. Patient does not follow-up with a field geologist. We have been asked to see the patient in consultation for SVT. Patient examined at the bedside in the emergency room. Patient presented to the hospital due to nausea, vomiting, and inability to urinate. Patient does report a history of alcohol abuse and drinks about 1/5 of alcohol a day. Patient was found to have acute kidney injury. This morning the patient went into SVT. He received adenosine x 2 with conversion to sinus mechanism. He is maintaining sinus mechanism at the time of examination. He denies any chest pain or shortness of breath. DIAGNOSTICS: - EKG reveals sinus tachycardia with no signs of acute ischemia - Chest xray negative for acute process - Laboratory data: WBC 7.1. Hemoglobin 9.4. Platelet count 101. Sodium 132. Potassium 4.2. BUN 85. Creatinine 5.73. Creatinine kinase 399. TSH 0.985. Troponin 0.605. 0.478 - Current home cardiac medications include Demadex 10 mg daily, Farxiga 10 mg daily, Eliquis 2.5 mg twice a day - Echocardiogram completed this admission reveals ejection fraction 55 to 60%, no obvious regional wall motion abnormalities, mild MR - Cardiac catheterization history: Patient denies 03/01/2025 Patient examined this morning the bedside. Patient currently denies any chest pain or pressure. He denies shortness of breath. Telemetry reveals sinus mechanism with no further episodes of SVT. PHYSICAL EXAM: VITAL SIGNS: Reviewed. GENERAL: Well-developed in no acute distress. HEENT: Head is normocephalic. Pupils are equal, round. Sclerae anicteric. Mucous membranes of the mouth are moist. Neck supple. No JVD or thyromegaly LUNGS: Respirations even and unlabored. Lungs essentially clear to auscultation bilaterally. HEART: Regular rate and rhythm. S1 and S2 heard. ABDOMEN: Soft. Nondistended. Nontender. EXTREMITIES: Normal range of motion. No clubbing or cyanosis. Peripheral pulse s intact. Blood noted to left great toe. Boot noted to right lower extremity NEUROLOGIC: Awake and alert. Oriented x 3. ASSESSMENT: Nausea, vomiting and decreased oral intake Urinary retention Acute renal failure Elevated troponin, likely type II ID secondary to poor renal clearance, no evidence of myocardial injury or ischemia SVT, with conversion to adenosine x 2 doses Possible GI bleed, Lilianaquis on hold Paroxysmal atrial fibrillation History of alcohol abuse Left great toe wound Recent surgery of right ankle Diabetes PLAN: 2D echo obtained and reviewed Lilianaquis remains on hold. General surgery has been consulted. Continue to monitor hemoglobin. Patient tentatively scheduled for endoscopy tomorrow. Continue metoprolol tartrate 25 mg twice a day Continue telemetry monitoring Abstinence from alcohol recommended Farxiga and Demadex remain on hold. Continue to monitor kidney function. Nephrology following. Recommend outpatient CAD and PAD evaluation Further recommendations pending patient course Nurse practitioner note has been reviewed by physician. Signing provider agrees with the documented findings, assessment, and plan of care documented by DIRECTOR COMPLIANCE as a scribe. Objective - Vital Signs Vital signs: Vital Signs Temp 97.8 F 03/01/25 08:40 Pulse 83 03/01/25 08:40 Resp 18 03/01/25 08:40 BP 115/73 03/01/25 08:40 Pulse Ox 99 03/01/25 08:40 FiO2 Intake & Output 02/28/25 03/01/25 03/01/25 18:59 06:59 18:59 Intake Total 480 Balance 480 Weight 106.5 kg Intake: Oral 480 Other: Voiding Method Indwelling Catheter Indwelling Catheter # Bowel Movements 0 - Labs CBC & Chem 7: 03/01/25 00:21 03/01/25 06:22 Labs: Abnormal Lab Results - Last 24 Hours (Table) 02/28/25 02/28/25 02/28/25 Range/Units 11:42 11:51 11:51 RBC 3.22 L (4.30-5.90) m/uL Hgb 9.4 L (13.0-17.5) gm/dL Hct 31.0 L (39.0-53.0) % MCHC 30.4 L (31.0-37.0) g/dL RDW 15.7 H (11.5-15.5) % Plt Count 101 L (150-450) k/uL Lymphocytes # 0.8 L (1.0-4.8) k/uL Sodium (137-145) mmol/L BUN (9-20) mg/dL Creatinine (0.66-1.25) mg/dL Glucose (74-99) mg/dL POC Glucose (mg/dL) 132 H (70-110) mg/dL Calcium (8.4-10.2) mg/dL Troponin I 0.478 H* (0.000-0.034) ng/mL 02/28/25 02/28/25 02/28/25 Range/Units 15:23 17:37 18:19 RBC 3.13 L (4.30-5.90) m/uL Hgb 9.5 L (13.0-17.5) gm/dL Hct 30.1 L (39.0-53.0) % MCHC (31.0-37.0) g/dL RDW (11.5-15.5) % Plt Count 92 L (150-450) k/uL Lymphocytes # (1.0-4.8) k/uL Sodium (137-145) mmol/L BUN (9-20) mg/dL Creatinine (0.66-1.25) mg/dL Glucose (74-99) mg/dL POC Glucose (mg/dL) 119 H (70-110) mg/dL Calcium (8.4-10.2) mg/dL Troponin I 0.439 H* (0.000-0.034) ng/mL 02/28/25 03/01/25 03/01/25 Range/Units 20:58 00:21 06:15 RBC 3.00 L (4.30-5.90) m/uL Hgb 8.9 L (13.0-17.5) gm/dL Hct 28.9 L (39.0-53.0) % MCHC 30.9 L (31.0-37.0) g/dL RDW 15.8 H (11.5-15.5) % Plt Count 96 L (150-450) k/uL Lymphocytes # (1.0-4.8) k/uL Sodium (137-145) mmol/L BUN (9-20) mg/dL Creatinine (0.66-1.25) mg/dL Glucose (74-99) mg/dL POC Glucose (mg/dL) 118 H 135 H (70-110) mg/dL Calcium (8.4-10.2) mg/dL Troponin I (0.000-0.034) ng/mL 03/01/25 03/01/25 Range/Units 06:22 11:18 RBC (4.30-5.90) m/uL Hgb (13.0-17.5) gm/dL Hct (39.0-53.0) % MCHC (31.0-37.0) g/dL RDW (11.5-15.5) % Plt Count (150-450) k/uL Lymphocytes # (1.0-4.8) k/uL Sodium 132 L (137-145) mmol/L BUN 76 H (9-20) mg/dL Creatinine 4.93 H (0.66-1.25) mg/dL Glucose 102 H (74-99) mg/dL POC Glucose (mg/dL) 130 H (70-110) mg/dL Calcium 7.5 L (8.4-10.2) mg/dL Troponin I (0.000-0.034) ng/mL Microbiology - Last 24 Hours (Table) 02/27/25 18:52 Blood Culture - Preliminary Blood
--- NOTE | 2025-03-01 11:26 | P.PN ---
Subjective Patient is seen for follow-up for acute kidney injury. Renal function has improved, creatinine down to 4.9 today. Maintained on IV fluids, Ringer lactate at 100 cc an hour. No significant complaints today. Objective - Vital Signs Vital signs: Vital Signs Temp 97.8 F 03/01/25 08:40 Pulse 83 03/01/25 08:40 Resp 18 03/01/25 08:40 BP 115/73 03/01/25 08:40 Pulse Ox 99 03/01/25 08:40 FiO2 Intake & Output 02/28/25 03/01/25 03/01/25 18:59 06:59 18:59 Intake Total 480 Balance 480 Weight 106.5 kg Intake: Oral 480 Other: Voiding Method Indwelling Catheter Indwelling Catheter # Bowel Movements 0 - Exam Patient is awake, lethargic, no acute distress Examination of the heart S1 and S2 Examination of the lungs bilateral breath sounds are heard Abdomen is soft nontender Examination of lower extremities shows no evidence of edema, chronic skin changes noted, right foot is in a boot - Labs CBC & Chem 7: 03/01/25 00:21 03/01/25 06:22 Labs: Abnormal Lab Results - Last 24 Hours (Table) 02/28/25 02/28/25 02/28/25 Range/Units 11:42 11:51 11:51 RBC 3.22 L (4.30-5.90) m/uL Hgb 9.4 L (13.0-17.5) gm/dL Hct 31.0 L (39.0-53.0) % MCHC 30.4 L (31.0-37.0) g/dL RDW 15.7 H (11.5-15.5) % Plt Count 101 L (150-450) k/uL Lymphocytes # 0.8 L (1.0-4.8) k/uL Sodium (137-145) mmol/L BUN (9-20) mg/dL Creatinine (0.66-1.25) mg/dL Glucose (74-99) mg/dL POC Glucose (mg/dL) 132 H (70-110) mg/dL Calcium (8.4-10.2) mg/dL Troponin I 0.478 H* (0.000-0.034) ng/mL 02/28/25 02/28/25 02/28/25 Range/Units 15:23 17:37 18:19 RBC 3.13 L (4.30-5.90) m/uL Hgb 9.5 L (13.0-17.5) gm/dL Hct 30.1 L (39.0-53.0) % MCHC (31.0-37.0) g/dL RDW (11.5-15.5) % Plt Count 92 L (150-450) k/uL Lymphocytes # (1.0-4.8) k/uL Sodium (137-145) mmol/L BUN (9-20) mg/dL Creatinine (0.66-1.25) mg/dL Glucose (74-99) mg/dL POC Glucose (mg/dL) 119 H (70-110) mg/dL Calcium (8.4-10.2) mg/dL Troponin I 0.439 H* (0.000-0.034) ng/mL 02/28/25 03/01/25 03/01/25 Range/Units 20:58 00:21 06:15 RBC 3.00 L (4.30-5.90) m/uL Hgb 8.9 L (13.0-17.5) gm/dL Hct 28.9 L (39.0-53.0) % MCHC 30.9 L (31.0-37.0) g/dL RDW 15.8 H (11.5-15.5) % Plt Count 96 L (150-450) k/uL Lymphocytes # (1.0-4.8) k/uL Sodium (137-145) mmol/L BUN (9-20) mg/dL Creatinine (0.66-1.25) mg/dL Glucose (74-99) mg/dL POC Glucose (mg/dL) 118 H 135 H (70-110) mg/dL Calcium (8.4-10.2) mg/dL Troponin I (0.000-0.034) ng/mL 03/01/25 03/01/25 Range/Units 06:22 11:18 RBC (4.30-5.90) m/uL Hgb (13.0-17.5) gm/dL Hct (39.0-53.0) % MCHC (31.0-37.0) g/dL RDW (11.5-15.5) % Plt Count (150-450) k/uL Lymphocytes # (1.0-4.8) k/uL Sodium 132 L (137-145) mmol/L BUN 76 H (9-20) mg/dL Creatinine 4.93 H (0.66-1.25) mg/dL Glucose 102 H (74-99) mg/dL POC Glucose (mg/dL) 130 H (70-110) mg/dL Calcium 7.5 L (8.4-10.2) mg/dL Troponin I (0.000-0.034) ng/mL Microbiology - Last 24 Hours (Table) 02/27/25 18:52 Blood Culture - Preliminary Blood Assessment and Plan Assessment: 1. Acute kidney injury, ATN, ischemic from low blood pressure and underlying infection. Possible urine retention, currently with indwelling Jo catheter. UA shows WBC 66 small blood and trace protein. Ultrasound shows mild dilatation of left renal collecting system and unable to visualize right kidney due to overlying gas. 2. Chronic kidney disease stage IIIb with baseline creatinine 1.6 to 1.7 mg/dL secondary to nephrosclerosis and diabetic kidney disease 3. Nongap metabolic acidosis secondary to acute kidney injury, maintained on bicarb drip, improved 4. A-fib with RVR, status post Cardizem 5. CKD mineral bone disorder maintained on calcitriol 6. Positive stool for occult blood with hemoglobin at 8.9 g/dL. No active bleeding noted Plan: Continue with IV bicarb Continue with antibiotics Repeat labs in a.m. Continue to hold off on Bactrim
--- NOTE | 2025-03-01 14:21 | P.PN ---
Subjective Progress Note Date: 03/01/25 SURGICAL PROGRESS NOTE CHIEF COMPLAINT: Nausea, vomiting and diarrhea HISTORY OF PRESENT ILLNESS: Patient reports no further black stools. He denies any nausea or vomiting. Hemoglobin did titrate down from 9.5-8.9. Creatinine is down from 7-4.9 patient followed by cardiology service and they have cleared him to proceed with EGD. And medicine service has cleared patient to proceed with EGD. PHYSICAL EXAM: VITAL SIGNS: Reviewed. GENERAL: Well-developed in no acute distress. ABDOMEN: Soft. Nondistended. Nontender. NEUROLOGIC: Alert and oriented. Cranial nerves II through XII grossly intact. ASSESSMENT: 1. GI bleed with coffee-ground emesis and dark stools 2. Anemia 3. History of A-fib on anticoagulation 4. SVT 5. Acute kidney injury 6. History of alcohol abuse 7. Elevated troponins PLAN: -Patient scheduled for EGD tomorrow with Dr. Estevez -N.p.o. after midnight -Continue to monitor for any signs or symptoms of bleeding -Continue to monitor hemoglobin -Continue Protonix Physician Heel Top Lift Splitter note has been reviewed by physician. Signing provider agrees with the documented findings, assessment, and plan of care. Objective - Vital Signs Vital signs: Vital Signs Temp 97.8 F 03/01/25 08:40 Pulse 77 03/01/25 11:15 Resp 17 03/01/25 11:15 BP 111/73 03/01/25 11:15 Pulse Ox 97 03/01/25 11:15 FiO2 Intake & Output 02/28/25 03/01/25 03/01/25 18:59 06:59 18:59 Intake Total 960 Balance 960 Weight 106.5 kg Intake: Oral 960 Other: Voiding Method Indwelling Catheter Indwelling Catheter # Bowel Movements 0 - Labs CBC & Chem 7: 03/01/25 00:21 03/01/25 06:22 Labs: Abnormal Lab Results - Last 24 Hours (Table) 02/28/25 02/28/25 02/28/25 Range/Units 15:23 17:37 18:19 RBC 3.13 L (4.30-5.90) m/uL Hgb 9.5 L (13.0-17.5) gm/dL Hct 30.1 L (39.0-53.0) % MCHC (31.0-37.0) g/dL RDW (11.5-15.5) % Plt Count 92 L (150-450) k/uL Sodium (137-145) mmol/L BUN (9-20) mg/dL Creatinine (0.66-1.25) mg/dL Glucose (74-99) mg/dL POC Glucose (mg/dL) 119 H (70-110) mg/dL Calcium (8.4-10.2) mg/dL Troponin I 0.439 H* (0.000-0.034) ng/mL 02/28/25 03/01/25 03/01/25 Range/Units 20:58 00:21 06:15 RBC 3.00 L (4.30-5.90) m/uL Hgb 8.9 L (13.0-17.5) gm/dL Hct 28.9 L (39.0-53.0) % MCHC 30.9 L (31.0-37.0) g/dL RDW 15.8 H (11.5-15.5) % Plt Count 96 L (150-450) k/uL Sodium (137-145) mmol/L BUN (9-20) mg/dL Creatinine (0.66-1.25) mg/dL Glucose (74-99) mg/dL POC Glucose (mg/dL) 118 H 135 H (70-110) mg/dL Calcium (8.4-10.2) mg/dL Troponin I (0.000-0.034) ng/mL 03/01/25 03/01/25 Range/Units 06:22 11:18 RBC (4.30-5.90) m/uL Hgb (13.0-17.5) gm/dL Hct (39.0-53.0) % MCHC (31.0-37.0) g/dL RDW (11.5-15.5) % Plt Count (150-450) k/uL Sodium 132 L (137-145) mmol/L BUN 76 H (9-20) mg/dL Creatinine 4.93 H (0.66-1.25) mg/dL Glucose 102 H (74-99) mg/dL POC Glucose (mg/dL) 130 H (70-110) mg/dL Calcium 7.5 L (8.4-10.2) mg/dL Troponin I (0.000-0.034) ng/mL Microbiology - Last 24 Hours (Table) 02/27/25 18:52 Blood Culture - Preliminary Blood
[2025-03-01 14:48] LABS: Reticulocyte % 1.54 % (0.10-1.80)
[2025-03-01 15:04] LABS: % Iron Saturation 83.05 (15.00-50.00)
[2025-03-01 16:37] LABS: Glucose,Whole Blood 121 mg/dL (70-110)
[2025-03-01 19:33] LABS: Glucose,Whole Blood 116 mg/dL (70-110)
[2025-03-02 05:51] LABS: Glucose,Whole Blood 106 mg/dL (70-110)
[2025-03-02 07:02] LABS: HCT 28.1 % (39.0-53.0); HGB 8.8 gm/dL (13.0-17.5); Hypochromasia Moderate; MCH 30.4 pg (25.0-35.0); MCHC 31.5 g/dL (31.0-37.0); MCV 96.6 fL (80.0-100.0); Mean Platelet Volume 8.5; RBC 2.91 m/uL (4.30-5.90); RDW 15.4 % (11.5-15.5); WBC 6.4 k/uL (3.8-10.6)
[2025-03-02 07:23] LABS: African American GFR (CKD) 17 (>60 ml/min/1.73 sqM); Anion Gap 4 mmol/L; Blood Urea Nitrogen 65 mg/dL (9-20); Calcium 7.9 mg/dL (8.4-10.2); Carbon Dioxide 27 mmol/L (22-30); Chloride 100 mmol/L (98-107); Glucose 90 mg/dL (74-99); Non-African American GFR(CKD) 15 (>60 ml/min/1.73 sqM); Potassium 4.1 mmol/L (3.5-5.1); Sodium 131 mmol/L (137-145)
[2025-03-02 07:24] LABS: Platelet Count 88 k/uL (150-450)
[2025-03-02] MEDS ORDERED: PROPOFOL 10 MG/ML 20 ML VIAL IV ONE (09:58)
[2025-03-02] MEDS ORDERED: LIDOCAINE 2% (PF) 20 MG/ML 5 ML VIAL ONE (09:58)
[2025-03-02] MEDS: IV FLUID CONTINUATION 1,000 ML IV ONE (10:03)
[2025-03-02 11:30] LABS: Glucose,Whole Blood 92 mg/dL (70-110)
[2025-03-02] MEDS: SUCRALFATE 1 GM TAB PO SCH (11:36)
--- NOTE | 2025-03-02 13:21 | P.PN ---
Subjective HISTORY OF PRESENT ILLNESS: This is a 65-year-old male with a past medical history significant for atrial fibrillation and alcohol abuse. Patient does not follow-up with a hole puncher strap. We have been asked to see the patient in consultation for SVT. Patient examined at the bedside in the emergency room. Patient presented to the hospital due to nausea, vomiting, and inability to urinate. Patient does report a history of alcohol abuse and drinks about 1/5 of alcohol a day. Patient was found to have acute kidney injury. This morning the patient went into SVT. He received adenosine x 2 with conversion to sinus mechanism. He is maintaining sinus mechanism at the time of examination. He denies any chest pain or shortness of breath. DIAGNOSTICS: - EKG reveals sinus tachycardia with no signs of acute ischemia - Chest xray negative for acute process - Laboratory data: WBC 7.1. Hemoglobin 9.4. Platelet count 101. Sodium 132. Potassium 4.2. BUN 85. Creatinine 5.73. Creatinine kinase 399. TSH 0.985. Troponin 0.605. 0.478 - Current home cardiac medications include Demadex 10 mg daily, Farxiga 10 mg daily, Eliquis 2.5 mg twice a day - Echocardiogram completed this admission reveals ejection fraction 55 to 60%, no obvious regional wall motion abnormalities, mild MR - Cardiac catheterization history: Patient denies 03/01/2025 Patient examined this morning the bedside. Patient currently denies any chest pain or pressure. He denies shortness of breath. Telemetry reveals sinus mechanism with no further episodes of SVT. 03/02/2025 Patient examined this morning at bedside. Patient denies chest pain or pressure. He denies shortness of breath. Telemetry reveals sinus mechanism. BUN today 65. Creatinine 3.92. Hemoglobin 8.8. Patient's Eliquis remains on hold. He underwent endoscopy today. Procedure note not available at this time. PHYSICAL EXAM: VITAL SIGNS: Reviewed. GENERAL: Well-developed in no acute distress. HEENT: Head is normocephalic. Pupils are equal, round. Sclerae anicteric. Mucous membranes of the mouth are moist. Neck supple. No JVD or thyromegaly LUNGS: Respirations even and unlabored. Lungs essentially clear to auscultation bilaterally. HEART: Regular rate and rhythm. S1 and S2 heard. ABDOMEN: Soft. Nondistended. Nontender. EXTREMITIES: Normal range of motion. No clubbing or cyanosis. Peripheral pulses intact. Blood noted to left great toe. Boot noted to right lower extremity NEUROLOGIC: Awake and alert. Oriented x 3. ASSESSMENT: Nausea, vomiting and decreased oral intake Urinary retention Acute renal failure Elevated troponin, likely type II NM secondary to poor renal clearance, no evidence of myocardial injury or ischemia SVT, with conversion to adenosine x 2 doses Possible GI bleed, Eliquis on hold Paroxysmal atrial fibrillation History of alcohol abuse Left great toe wound Recent surgery of right ankle Diabetes PLAN: 2D echo obtained and reviewed Resume Eliquis 2.5 mg twice daily Continue metoprolol tartrate 25 mg twice a day Continue telemetry monitoring Abstinence from alcohol recommended Farxiga and Demadex remain on hold. Resume when kidney function normalizes. Continue to monitor kidney function. Nephrology following. Recommend outpatient CAD and PAD evaluation We will sign off. Please reconsult if needed. Nurse practitioner note has been reviewed by physician. Signing provider agrees with the documented findings, assessment, and plan of care documented by AUTO TECH as a scribe. Objective - Vital Signs Vital signs: Vital Signs Temp 98.5 F 03/02/25 03:35 Pulse 76 03/02/25 03:35 Resp 16 03/02/25 03:35 BP 104/69 03/02/25 03:35 Pulse Ox 94 L 03/02/25 03:35 FiO2 Intake & Output 03/01/25 03/02/25 03/02/25 18:59 06:59 18:59 Intake Total 1440 Output Total 5336 019 9992 Balance -110 -500 -1100 Weight 104.5 kg Intake: Oral 1440 Output: Urine 3833 564 1118 Other: Voiding Method Indwelling Catheter Indwelling Catheter # Voids 0 - Labs CBC & Chem 7: 03/02/25 06:14 03/02/25 06:14 Labs: Abnormal Lab Results - Last 24 Hours (Table) 03/01/25 03/01/25 03/01/25 Range/Units 10:18 10:18 11:18 RBC (4.30-5.90) m/uL Hgb (13.0-17.5) gm/dL Hct (39.0-53.0) % Plt Count (150-450) k/uL Sodium (137-145) mmol/L BUN (9-20) mg/dL Creatinine (0.66-1.25) mg/dL POC Glucose (mg/dL) 130 H (70-110) mg/dL Calcium (8.4-10.2) mg/dL TIBC 118 L (228-460) UG/DL % Saturation 83.05 H (15.00-50.00) Transferrin 84.6 L 86.4 L (204.0-354.0) mg/dL Ferritin 1015.0 H (22.0-322.0) ng/mL 03/01/25 03/01/25 03/02/25 Range/Units 16:35 19:30 06:14 RBC 2.91 L (4.30-5.90) m/uL Hgb 8.8 L (13.0-17.5) gm/dL Hct 28.1 L (39.0-53.0) % Plt Count 88 L (150-450) k/uL Sodium (137-145) mmol/L BUN (9-20) mg/dL Creatinine (0.66-1.25) mg/dL POC Glucose (mg/dL) 121 H 116 H (70-110) mg/dL Calcium (8.4-10.2) mg/dL TIBC (228-460) UG/DL % Saturation (15.00-50.00) Transferrin (204.0-354.0) mg/dL Ferritin (22.0-322.0) ng/mL 03/02/25 Range/Units 06:14 RBC (4.30-5.90) m/uL Hgb (13.0-17.5) gm/dL Hct (39.0-53.0) % Plt Count (150-450) k/uL Sodium 131 L (137-145) mmol/L BUN 65 H (9-20) mg/dL Creatinine 3.92 H (0.66-1.25) mg/dL POC Glucose (mg/dL) (70-110) mg/dL Calcium 7.9 L (8.4-10.2) mg/dL TIBC (228-460) UG/DL % Saturation (15.00-50.00) Transferrin (204.0-354.0) mg/dL Ferritin (22.0-322.0) ng/mL Microbiology - Last 24 Hours (Table) 02/27/25 18:52 Blood Culture - Preliminary Blood
[2025-03-02] MEDS: BACITRACIN OINT 1 EACH PACKET TOPICAL SCH (13:48)
--- NOTE | 2025-03-02 13:52 | P.PN ---
Subjective Progress Note Date: 03/02/25 65-year-old male with CKD stage III, bjm-[id number]-[id number] diabetes mellitus, alcohol use disorder, depression presenting with nausea, vomiting, diarrhea, and and urinary retention. Patient noticed that he hasn't urinated for the past 3 days despite normal oral intake. States that he has been feeling nauseous and has been vomiting nonbloody emesis almost every day for the past 3 days. He admits to increased alcohol intake this past weekend stating that he drinks about 1/5 of [employer] [place]. His last drink was yesterday of the same type of alcohol. 02/28 - He was seen and examined at bedside this morning, remaining in the ED. He was noted by the nurse to have been in a run of SVT. At the time he had no complaints of chest pain, worsening shortness of breath or pressure. Vagal maneuvers were attempted to have him return to sinus rhythm, however were unsuccessful. Administered a total of 18 mg adenosine for return to sinus rhythm. He had no complaints at that time. Troponins were checked at the time which found to be elevated at 0.605, cardiology was then consulted. Antibiotics were discontinued as he showed no signs or symptoms of having a UTI. 03/01 - He is seen and examined this morning, now on the 3rd floor. States that he has been feeling well, with no acute events overnight. He has no acute complaints at this time. Continues to deny chest pain, shortness of breath, nausea or vomiting. 03/02 - He is seen and examined at bedside this morning. Continues to state that he is feeling okay, without any acute events overnight or any acute complaints at this time. Continues to deny any chest pain, shortness of breath, nausea or vomiting. He is scheduled undergo an EGD this morning, and has been n.p.o. since midnight. His D5W with bicarb was discontinued yesterday after the resolution of his metabolic acidosis, and he was initiated on LR at 100 cc/h. Per cardiology, he was initiated on metoprolol tartrate 25 mg twice daily. REVIEW OF SYSTEMS: Pertinent positives and negatives noted in HPI. Physical Exam: Vital signs reviewed General: Mild distress, appears at stated age, normal weight Derm: no unusual rashes/lesions, warm Head: atraumatic, normocephalic, symmetric Eyes: EOMI, anicteric sclera, pupils equal round reactive to light ENT: Nose and ears atraumatic Mouth: no lip lesion, mucus membranes moist Cardiovascular: S1S2 reg, no murmur, no edema Lungs: CTA bilateral, no rhonchi, no rales, no accessory muscle use Abdominal: soft, non-tender to palpation, no guarding Ext: muscle strength 5 out of 5 in all 4 extremities grossly, left first digit wound, walking boot on right leg Neuro: CN II-XI grossly intact, no gross focal neuro deficits Psych: Alert, oriented to person, place, and time Data Received Today: Labs: WBC 6.4, hemoglobin 8.8, hematocrit 28.1, platelet 88; sodium 131, potassium 4.1, BUN 65, creatinine 3.92 -Iron studies: Iron 98, TIBC 118, percent saturation 83.05%, transferrin 86.4, ferritin 1015 Imagining: No new imaging Assessment and plan 65-year-old male with CKD stage III, sat-aimzmrw-ldvyrgjfp diabetes mellitus, alcohol use disorder, depression presenting with nausea, vomiting, diarrhea, and and urinary retention. ED documentation reviewed. Discussed with patient. The patient is admitted with an anticipated greater than 2 midnight stay for evaluation of alcoholic ketoacidosis and ASHA. #Anemia chronic disease secondary to CKD stage IIIb #Acute blood loss anemia in addition to above #Thrombocytopenia #Possible malnutrition, with previously established copper deficiency, and previous gastric bypass surgery #Suspected upper and lower GI bleed -Hemoglobin this morning 8.8 -Continue protonix 40 mg ivp BID -EGD scheduled for this morning -No known active bleeding -Previous copper from 11/09/2022 shown to be 389; repeat copper ordered today, currently pending -Extensive anemia workup ordered, currently pending at this time #ASHA, with components of prerenal and postrenal, on CKD stage IIIb with baseline creatinine 1.6-1.7 #Hyperkalemia, resolved #Hyponatremia #Urinary retention #Secondary hyperparathyroidism -Renal/bladder ultrasound displaying limited evaluation of right kidney, mild dilatation of the left renal collecting system -Continue with LR at 100 cc/h -Improved this morning with fluid resuscitation; -Continue with urinary catheter -Continue calcitriol 0.25 mcg PO QD -Continue ferrous sulfate 325 mg PO QD -Iron studies ordered and reviewed -Nephrology consulted #Acute SVT #Type II NSTEMI possibly secondary to above vs metabolic abnormalities -Episode of SVT this morning, with a rate of 165 -Administered total of 18 mg adenosine to return to sinus rhythm -Trend troponins; 0.605 -> 0.478 -> 0.439 -Echocardiogram ordered, currently pending -TSH 0.985 -Cardiology consulted -Cardiac monitoring #History of alcohol abuse #Chronic alcoholic -Monitor intake/output -Monitor for withdrawal symptoms -Ativan per [facility] protocol, monitor electrolytes, monitor for seizure, hypoglycemia precaution -Continue thiamine 100 mg daily, folic acid 1 mg daily and initiate multivitamin #No signs of urinary tract infection -Antibiotics discontinued #Left first toe wound -podiatry consult -wound care consult #Eqz-tlaadav-crkorhoqb diabetes mellitus -Humalog insulin SQ sliding scale -Accu-Cheks ACHS -Hypoglycemic precaution -Holding Farxiga #BPH -Flomax 0.4 mg p.o. daily DVT ppx: Hold Eliquis GI PPx: Protonix 40 mg IV twice daily Code status: Full code F: LR at 100 cc/h E: Replete as needed N: Clear liquid diet A: Ambulatory at baseline Anticipated discharge place: Pending clinical course Anticipated discharge time: Pending clinical course Dictation was produced using [employer] dictation software. please excuse any grammatical, word or spelling errors. Oli Chen MD PGY-1 IM I saw and evaluated the patient during the quezada and critical portions of this encounter, and discussed the case in detail with the resident author of this note, I agree with the Assessment and Plan, and my changes, if any, are highlighted in blue. Objective - Vital Signs Vital signs: Vital Signs Temp 98.5 F 03/02/25 03:35 Pulse 76 03/02/25 03:35 Resp 16 03/02/25 03:35 BP 104/69 03/02/25 03:35 Pulse Ox 94 L 03/02/25 03:35 FiO2 Intake & Output 03/01/25 03/02/25 03/02/25 18:59 06:59 18:59 Intake Total 1440 Output Total 2176 722 9363 Balance -110 -500 -1100 Weight 104.5 kg Intake: Oral 1440 Output: Urine 6701 050 4264 Other: Voiding Method Indwelling Catheter Indwelling Catheter # Voids 0 - Labs CBC & Chem 7: 03/02/25 06:14 03/02/25 06:14 Labs: Abnormal Lab Results - Last 24 Hours (Table) 03/01/25 03/01/25 03/01/25 Range/Units 06:22 10:18 10:18 Sodium 132 L (137-145) mmol/L BUN 76 H (9-20) mg/dL Creatinine 4.93 H (0.66-1.25) mg/dL Glucose 102 H (74-99) mg/dL POC Glucose (mg/dL) (70-110) mg/dL Calcium 7.5 L (8.4-10.2) mg/dL TIBC 118 L (228-460) UG/DL % Saturation 83.05 H (15.00-50.00) Transferrin 84.6 L 86.4 L (204.0-354.0) mg/dL Ferritin 1015.0 H (22.0-322.0) ng/mL 03/01/25 03/01/25 03/01/25 Range/Units 11:18 16:35 19:30 Sodium (137-145) mmol/L BUN (9-20) mg/dL Creatinine (0.66-1.25) mg/dL Glucose (74-99) mg/dL POC Glucose (mg/dL) 130 H 121 H 116 H (70-110) mg/dL Calcium (8.4-10.2) mg/dL TIBC (228-460) UG/DL % Saturation (15.00-50.00) Transferrin (204.0-354.0) mg/dL Ferritin (22.0-322.0) ng/mL Microbiology - Last 24 Hours (Table) 02/27/25 18:52 Blood Culture - Preliminary Blood
--- NOTE | 2025-03-02 15:02 | P.PN ---
Subjective Patient is seen for follow-up for acute kidney injury. Renal function has improved, creatinine down to 3.9 today. Maintained on IV fluids, Ringer lactate at 100 cc an hour. No significant complaints today. Objective - Vital Signs Vital signs: Vital Signs Temp 98.1 F 03/02/25 08:15 Pulse 77 03/02/25 11:57 Resp 17 03/02/25 11:57 BP 115/75 03/02/25 11:57 Pulse Ox 99 03/02/25 11:57 FiO2 Intake & Output 03/01/25 03/02/25 03/02/25 18:59 06:59 18:59 Intake Total 1440 630 Output Total 8213 873 1548 Balance -110 -500 -1570 Weight 104.5 kg Intake: IV 150 Oral 1440 480 Output: Urine 6482 003 6843 Other: Voiding Method Indwelling Catheter Indwelling Catheter Indwelling Catheter # Voids 0 2 # Bowel Movements 1 - Exam Patient is awake, lethargic, no acute distress Examination of the heart S1 and S2 Examination of the lungs bilateral breath sounds are heard Abdomen is soft nontender Examination of lower extremities shows no evidence of edema, chronic skin changes noted, right foot is in a boot - Labs CBC & Chem 7: 03/02/25 06:14 03/02/25 06:14 Labs: Abnormal Lab Results - Last 24 Hours (Table) 03/01/25 03/01/25 03/01/25 Range/Units 10:18 16:35 19:30 RBC (4.30-5.90) m/uL Hgb (13.0-17.5) gm/dL Hct (39.0-53.0) % Plt Count (150-450) k/uL Sodium (137-145) mmol/L BUN (9-20) mg/dL Creatinine (0.66-1.25) mg/dL POC Glucose (mg/dL) 121 H 116 H (70-110) mg/dL Calcium (8.4-10.2) mg/dL TIBC 118 L (228-460) UG/DL % Saturation 83.05 H (15.00-50.00) Transferrin 84.6 L (204.0-354.0) mg/dL Ferritin 1015.0 H (22.0-322.0) ng/mL 03/02/25 03/02/25 Range/Units 06:14 06:14 RBC 2.91 L (4.30-5.90) m/uL Hgb 8.8 L (13.0-17.5) gm/dL Hct 28.1 L (39.0-53.0) % Plt Count 88 L (150-450) k/uL Sodium 131 L (137-145) mmol/L BUN 65 H (9-20) mg/dL Creatinine 3.92 H (0.66-1.25) mg/dL POC Glucose (mg/dL) (70-110) mg/dL Calcium 7.9 L (8.4-10.2) mg/dL TIBC (228-460) UG/DL % Saturation (15.00-50.00) Transferrin (204.0-354.0) mg/dL Ferritin (22.0-322.0) ng/mL Microbiology - Last 24 Hours (Table) 02/27/25 18:52 Blood Culture - Preliminary Blood Assessment and Plan Assessment: 1. Acute kidney injury, ATN, ischemic from low blood pressure and underlying infection. Possible urine retention, currently with indwelling Jo catheter. UA shows WBC 66 small blood and trace protein. Ultrasound shows mild dilatation of left renal collecting system and unable to visualize right kidney due to overlying gas. 2. Chronic kidney disease stage IIIb with baseline creatinine 1.6 to 1.7 mg/dL secondary to nephrosclerosis and diabetic kidney disease 3. [place] metabolic acidosis secondary to acute kidney injury, maintained on bicarb drip, improved 4. A-fib with RVR, status post Cardizem 5. CKD mineral bone disorder maintained on calcitriol 6. Positive stool for occult blood with hemoglobin at 8.8 g/dL. No active bleeding noted Plan: Continue with IV fluids Continue with antibiotics Repeat labs in a.m. Continue to hold off on Bactrim
[2025-03-02 16:14] LABS: Glucose,Whole Blood 101 mg/dL (70-110)
--- NOTE | 2025-03-02 17:21 | P.PCN ---
Date of Procedure: 03/02/25 Preoperative Diagnosis: Melena Hematemesis Postoperative Diagnosis: History of of gastric bypass Gastritis Procedure(s) Performed: EGD with biopsy Anesthesia: MAC Surgeon: Lissett Estevez Pathology: other (Biopsy of GJ anastomosis) Condition: stable Disposition: floor Indications for Procedure: 65-year-old male presented with concern for GI bleed secondary to hematemesis and melena. Plan is for upper endoscopy for further evaluation. He does have a history of gastric bypass. Risks, benefits and alternatives were provided to the patient. All questions answered. Operative Findings: Appropriate GJ anastomosis with friability in the distal gastric pouch, no clear ulceration noted Description of Procedure: The patient was brought into the endoscopy suite and placed in left lateral decubitus position. Adequate sedation was achieved using conscious sedation. A bite-block was placed and an endoscope was placed in the oropharynx and advanced under endoscopic visualization. The endoscope was advanced through the esophagus into the gastric pouch and evaluation of the afferent and Eferrent limbs were performed. Both limbs appeared without any significant abnormality. Friability was noted at the GJ anastomotic site. No obvious clear ulcer is noted. Biopsies were taken. Mild bleeding after biopsy performed. Hemostasis was noted to be maintained after close evaluation. GE junction appeared normal. No active bleeding is noted. The esophagus appeared endoscopically normal. Excess air was removed and the scope was withdrawn and the procedure was completed. The patient was sent to PACU in stable condition.
[2025-03-02 19:49] LABS: Glucose,Whole Blood 100 mg/dL (70-110)
[2025-03-02] MEDS: APIXABAN 2.5 MG TABLET PO SCH (20:39)
[2025-03-03 05:50] LABS: Glucose,Whole Blood 101 mg/dL (70-110)
[2025-03-03 06:38] LABS: African American GFR (CKD) 22 (>60 ml/min/1.73 sqM); Anion Gap 3 mmol/L; Blood Urea Nitrogen 49 mg/dL (9-20); Calcium 8.2 mg/dL (8.4-10.2); Carbon Dioxide 27 mmol/L (22-30); Chloride 101 mmol/L (98-107); Glucose 82 mg/dL (74-99); Non-African American GFR(CKD) 19 (>60 ml/min/1.73 sqM); Potassium 4.1 mmol/L (3.5-5.1); Sodium 131 mmol/L (137-145)
[2025-03-03 06:45] LABS: Basophils % (A) 0 %; Eosinophils # (A) 0.3 k/uL (0-0.7); Eosinophils % (A) 4 %; HCT 27.4 % (39.0-53.0); HGB 8.6 gm/dL (13.0-17.5); Hypochromasia Marked; Lymphocytes # (A) 1.8 k/uL (1.0-4.8); Lymphocytes % (A) 28 %; MCH 30.2 pg (25.0-35.0); MCHC 31.3 g/dL (31.0-37.0); MCV 96.4 fL (80.0-100.0); Mean Platelet Volume 9.1; Monocytes # (A) 0.3 k/uL (0-1.0); Monocytes % (A) 5 %; Neutrophils % (A) 61 %; RBC 2.84 m/uL (4.30-5.90); RDW 15.4 % (11.5-15.5); WBC 6.4 k/uL (3.8-10.6)
[2025-03-03 06:46] LABS: Platelet Count 83 k/uL (150-450)
[2025-03-03] MEDS: MULTIVITAMINS, THERA 1 EACH TAB PO SCH (08:19)
--- NOTE | 2025-03-03 10:46 | P.PN ---
Subjective Patient is seen in follow-up for acute kidney injury and chronic kidney disease. Renal function improving. Denies chest pain or shortness of breath. On IV fluids. Vital signs are stable. General: No acute distress. HEENT: Head exam is unremarkable. LUNGS: No audible rhonchi or wheezes. HEART: Rate and Rhythm are regular. ABDOMEN: Nontender. EXTREMITITES: No edema. Objective - Vital Signs Vital signs: Vital Signs Temp 97.9 F 03/03/25 08:00 Pulse 144 H 03/03/25 08:00 Resp 16 03/03/25 08:00 BP 110/77 03/03/25 08:00 Pulse Ox 97 03/03/25 08:00 FiO2 Intake & Output 03/02/25 03/03/25 03/03/25 18:59 06:59 18:59 Intake Total 1110 540 Output Total 2430 1725 450 Balance -1320 -1185 -450 Weight 104.5 kg Intake: IV 150 Intake, IV Titration 300 Amount Lactated Ringers 1,000 ml 300 @ 100 mls/hr IV .Q10H [place] Rx#:[id number] Oral 960 240 Output: Urine 2430 1725 450 Other: Voiding Method Indwelling Catheter Indwelling Catheter # Voids 2 # Bowel Movements 1 1 - Labs CBC & Chem 7: 03/03/25 05:39 03/03/25 05:39 Labs: Abnormal Lab Results - Last 24 Hours (Table) 03/03/25 03/03/25 03/03/25 Range/Units 05:39 05:39 05:39 RBC 2.84 L (4.30-5.90) m/uL Hgb 8.6 L (13.0-17.5) gm/dL Hct 27.4 L (39.0-53.0) % Plt Count 83 L (150-450) k/uL Sodium 131 L (137-145) mmol/L BUN 49 H (9-20) mg/dL Creatinine 3.29 H (0.66-1.25) mg/dL Calcium 8.2 L (8.4-10.2) mg/dL Vitamin B12 1742.0 H (200.0-944.0) pg/mL Microbiology - Last 24 Hours (Table) 02/27/25 18:52 Blood Culture - Preliminary Blood Assessment and Plan Plan: Assessment: 1. Acute kidney injury secondary to ATN secondary to infection and A-fib. Questionable urinary retention. Has Jo catheter. Renal function improving. Creatinine 7 on admission and is 3.29 today. 2. Chronic kidney disease stage IIIb with baseline creatinine 1.6-1.7 secondary to diabetic kidney disease. 3. A-fib with RVR status post Cardizem drip. 4. Chronic kidney disease mineral bone disease maintained on calcitriol. 5. Anemia of chronic kidney disease. Iron replete. Stool for occult blood positive. 6. Metabolic acidosis secondary to acute kidney injury status post bicarb drip. Improved. Plan: Maintain IV fluids. Add Aranesp. Continue to monitor renal function and urine output.
--- NOTE | 2025-03-03 11:20 | P.PN ---
Subjective Progress Note Date: 03/03/25 Patient seen and examined at bedside. No acute events. States he had a bowel movement normal brown color. Objective - Vital Signs Vital signs: Vital Signs Temp 97.9 F 03/03/25 08:00 Pulse 69 03/03/25 08:00 Resp 16 03/03/25 08:00 BP 110/77 03/03/25 08:00 Pulse Ox 97 03/03/25 08:00 FiO2 Intake & Output 03/02/25 03/03/25 03/03/25 18:59 06:59 18:59 Intake Total 1110 540 Output Total 2430 1725 450 Balance -1320 -1185 -450 Weight 104.5 kg Intake: IV 150 Intake, IV Titration 300 Amount Lactated Ringers 1,000 ml 300 @ 100 mls/hr IV .Q10H [place] Rx#:[id number] Oral 960 240 Output: Urine 2430 1725 450 Other: Voiding Method Indwelling Catheter Indwelling Catheter Indwelling Catheter # Voids 2 # Bowel Movements 1 1 - Constitutional General appearance: Present: cooperative, no acute distress - Respiratory Details: No difficulty with rest. - Gastrointestinal Gastrointestinal Comment(s): Soft, nontender, nondistended, no rebound, no guard - Psychiatric Psychiatric: Present: A&O x's 3 - Labs CBC & Chem 7: 03/03/25 05:39 03/03/25 05:39 Labs: Abnormal Lab Results - Last 24 Hours (Table) 03/03/25 03/03/25 03/03/25 Range/Units 05:39 05:39 05:39 RBC 2.84 L (4.30-5.90) m/uL Hgb 8.6 L (13.0-17.5) gm/dL Hct 27.4 L (39.0-53.0) % Plt Count 83 L (150-450) k/uL Sodium (137-145) mmol/L BUN (9-20) mg/dL Creatinine (0.66-1.25) mg/dL Calcium (8.4-10.2) mg/dL Vitamin B12 1742.0 H (200.0-944.0) pg/mL Folate 32.80 H (4.40-31.00) ng/mL 03/03/25 Range/Units 05:39 RBC (4.30-5.90) m/uL Hgb (13.0-17.5) gm/dL Hct (39.0-53.0) % Plt Count (150-450) k/uL Sodium 131 L (137-145) mmol/L BUN 49 H (9-20) mg/dL Creatinine 3.29 H (0.66-1.25) mg/dL Calcium 8.2 L (8.4-10.2) mg/dL Vitamin B12 (200.0-944.0) pg/mL Folate (4.40-31.00) ng/mL Microbiology - Last 24 Hours (Table) 02/27/25 18:52 Blood Culture - Preliminary Blood Assessment and Plan Plan: 65-year-old male with suspected upper GI bleed. Hemoglobin currently stable. I did discuss EGD results with the patient. Awaiting pathology. No active bleeding noted. Okay to advance to regular diet. Stable from surgical standpoint for discharge
[2025-03-03 11:32] LABS: Glucose,Whole Blood 92 mg/dL (70-110)
[2025-03-03] MEDS: DARBEPOETIN ALFA 40 MCG/0.4 ML SYRINGE SQ SCH (12:03)
--- NOTE | 2025-03-03 13:32 | P.PN ---
Subjective Progress Note Date: 03/03/25 65-year-old male with CKD stage III, ubo-tlkmopc-ivftxlays diabetes mellitus, alcohol use disorder, depression presenting with nausea, vomiting, diarrhea, and and urinary retention. Patient noticed that he hasn't urinated for the past 3 days despite normal oral intake. States that he has been feeling nauseous and has been vomiting nonbloody emesis almost every day for the past 3 days. He admits to increased alcohol intake this past weekend stating that he drinks about 1/5 of [place]. His last drink was yesterday of the same type of alcohol. 02/28 - He was seen and examined at bedside this morning, remaining in the ED. He was noted by the nurse to have been in a run of SVT. At the time he had no complaints of chest pain, worsening shortness of breath or pressure. Vagal maneuvers were attempted to have him return to sinus rhythm, however were unsuccessful. Administered a total of 18 mg adenosine for return to sinus rhythm. He had no complaints at that time. Troponins were checked at the time which found to be elevated at 0.605, cardiology was then consulted. Antibiotics were discontinued as he showed no signs or symptoms of having a UTI. 03/01 - He is seen and examined this morning, now on the 3rd floor. States that he has been feeling well, with no acute events overnight. He has no acute complaints at this time. Continues to deny chest pain, shortness of breath, nausea or vomiting. 03/02 - He is seen and examined at bedside this morning. Continues to state that he is feeling okay, without any acute events overnight or any acute complaints at this time. Continues to deny any chest pain, shortness of breath, nausea or vomiting. He is scheduled undergo an EGD this morning, and has been n.p.o. since midnight. His D5W with bicarb was discontinued yesterday after the resolution of his metabolic acidosis, and he was initiated on LR at 100 cc/h. Per cardiology, he was initiated on metoprolol tartrate 25 mg twice daily. 03/03 - He is seen and examined at bedside this morning. No acute events overnight and no complaints at this time. Underwent EGD yesterday which showed no significant abnormality, no obvious ulcer, no signs of active bleeding. Extensive lab workup for his chronic normocytic anemia has been ordered, will continue to evaluate. REVIEW OF SYSTEMS: Pertinent positives and negatives noted in HPI. Physical Exam: Vital signs reviewed General: Mild distress, appears at stated age, normal weight Derm: no unusual rashes/lesions, warm Head: atraumatic, normocephalic, symmetric Eyes: EOMI, anicteric sclera, pupils equal round reactive to light ENT: Nose and ears atraumatic Mouth: no lip lesion, mucus membranes moist Cardiovascular: S1S2 reg, no murmur, no edema Lungs: CTA bilateral, no rhonchi, no rales, no accessory muscle use Abdominal: soft, non-tender to palpation, no guarding Ext: muscle strength 5 out of 5 in all 4 extremities grossly, left first digit wound, walking boot on right leg Neuro: CN II-XI grossly intact, no gross focal neuro deficits Psych: Alert, oriented to person, place, and time Data Received Today: Labs: WBC 6.4, hemoglobin 8.6, medic at 27.4, platelet 83; sodium 131, potassium 4.1, bicarb 27, BUN 49, creatinine 3.29, calcium 8.2 Imagining: EGD yesterday which showed no significant abnormality, no obvious ulcer, no signs of active bleeding. Assessment and plan 65-year-old male with CKD stage III, stz-ciepulg-logqotaav diabetes mellitus, alcohol use disorder, depression presenting with nausea, vomiting, diarrhea, and and urinary retention. ED documentation reviewed. Discussed with patient. The patient is admitted with an anticipated greater than 2 midnight stay for evaluation of alcoholic ketoacidosis and ASHA. #Anemia chronic disease secondary to CKD stage IIIb #Acute blood loss anemia in addition to above #Thrombocytopenia #Possible malnutrition, with previously established copper deficiency, and previous gastric bypass surgery #Suspected upper and lower GI bleed -Hemoglobin this morning 8.6 -Continue protonix 40 mg ivp BID -EGD completed on 03/02/2025 -No known active bleeding -Previous copper from 11/09/2022 shown to be 389; repeat copper ordered today, currently pending -LDH showed to be within normal limits at 200,, haptoglobin within normal limits at 158, vitamin B12 elevated at 1742, folate level elevated at 32.8, remaining anemia workup currently pending -Heme/Onc consulted for further evaluation of chronic anemia and thrombocytopenia #ASHA, with components of prerenal and postrenal, on CKD stage IIIb with baseline creatinine 1.6-1.7 #Hyperkalemia, resolved #Hyponatremia #Urinary retention #Anemia chronic disease secondary to CKD stage IIIb #Secondary hyperparathyroidism -Renal/bladder ultrasound displaying limited evaluation of right kidney, mild dilatation of the left renal collecting system -Continue with LR at 100 cc/h -Improved this morning with fluid resuscitation -Continue with urinary catheter -Continue calcitriol 0.25 mcg PO QD -Continue ferrous sulfate 325 mg PO QD -Iron studies showed iron 98, TIBC 118, 83.05% iron saturation, transferrin 86.4 and ferritin 1015 -Nephrology following #Acute SVT, resolved #Type II NSTEMI possibly secondary to above vs metabolic abnormalities -Trend troponins; 0.605 -> 0.478 -> 0.439 -Echocardiogram ordered, EF 55-60%, mildly increased septal wall thickness, severe RVE/MANJEET -TSH 0.985 -Cardiology following -Cardiac monitoring #History of alcohol abuse #Chronic alcoholic -Monitor intake/output -Monitor for withdrawal symptoms -Ativan per [facility] protocol, monitor electrolytes, monitor for seizure, hypoglycemia precaution -Continue thiamine 100 mg daily, folic acid 1 mg daily and multivitamin #No signs of urinary tract infection -Antibiotics discontinued #Left first toe wound -podiatry consult -wound care consult #Fmr-xotlooq-vflntxqpp diabetes mellitus -Humalog insulin SQ sliding scale -Accu-Cheks ACHS -Hypoglycemic precaution -Holding Farxiga #BPH -Flomax 0.4 mg p.o. daily DVT ppx: Hold Eliquis GI PPx: Protonix 40 mg IV twice daily Code status: Full code F: LR at 100 cc/h E: Replete as needed N: Clear liquid diet A: Ambulatory at baseline Anticipated discharge place: Pending clinical course Anticipated discharge time: Pending clinical course Dictation was produced using [employer] dictation software. please excuse any grammatical, word or spelling errors. Oli Chen MD PGY-1 IM I saw and evaluated the patient during the quezada and critical portions of this encounter, and discussed the case in detail with the resident author of this note, I agree with the Assessment and Plan, and my changes, if any, are highlighted in blue. Objective - Vital Signs Vital signs: Vital Signs Temp 98.2 F 03/03/25 04:00 Pulse 74 03/03/25 04:00 Resp 16 03/03/25 04:00 BP 116/72 03/03/25 04:00 Pulse Ox 95 03/03/25 04:00 FiO2 Intake & Output 03/02/25 03/03/25 03/03/25 18:59 06:59 18:59 Intake Total 1110 540 Output Total 2430 1725 Balance -1320 -1185 Weight 104.5 kg Intake: IV 150 Intake, IV Titration 300 Amount Lactated Ringers 1,000 ml 300 @ 100 mls/hr IV .Q10H [place] Rx#:[id number] Oral 960 240 Output: Urine 2430 1725 Other: Voiding Method Indwelling Catheter Indwelling Catheter # Voids 2 # Bowel Movements 1 1 - Labs CBC & Chem 7: 03/03/25 05:39 03/03/25 05:39 Labs: Abnormal Lab Results - Last 24 Hours (Table) 03/03/25 03/03/25 Range/Units 05:39 05:39 RBC 2.84 L (4.30-5.90) m/uL Hgb 8.6 L (13.0-17.5) gm/dL Hct 27.4 L (39.0-53.0) % Plt Count 83 L (150-450) k/uL Sodium 131 L (137-145) mmol/L BUN 49 H (9-20) mg/dL Creatinine 3.29 H (0.66-1.25) mg/dL Calcium 8.2 L (8.4-10.2) mg/dL Microbiology - Last 24 Hours (Table) 02/27/25 18:52 Blood Culture - Preliminary Blood
[2025-03-03 16:11] LABS: Glucose,Whole Blood 76 mg/dL (70-110)
[2025-03-03 20:05] LABS: Glucose,Whole Blood 85 mg/dL (70-110)
[2025-03-04 05:55] LABS: Glucose,Whole Blood 108 mg/dL (70-110)
[2025-03-04 07:16] LABS: Basophils % (A) 0 %; Eosinophils # (A) 0.3 k/uL (0-0.7); Eosinophils % (A) 4 %; HCT 30.3 % (39.0-53.0); HGB 9.1 gm/dL (13.0-17.5); Hypochromasia Slight; Lymphocytes # (A) 1.5 k/uL (1.0-4.8); Lymphocytes % (A) 24 %; MCH 29.6 pg (25.0-35.0); MCV 98.9 fL (80.0-100.0); Macrocytosis Slight; Mean Platelet Volume 9.8; Monocytes # (A) 0.4 k/uL (0-1.0); Monocytes % (A) 7 %; Neutrophils # (A) 3.9 k/uL (1.3-7.7); Neutrophils % (A) 62 %; Platelet Count 108 k/uL (150-450); RBC 3.06 m/uL (4.30-5.90); RDW 15.6 % (11.5-15.5); WBC 6.3 k/uL (3.8-10.6)
[2025-03-04 07:28] LABS: African American GFR (CKD) 24 (>60 ml/min/1.73 sqM); Anion Gap 2 mmol/L; Blood Urea Nitrogen 38 mg/dL (9-20); Calcium 8.1 mg/dL (8.4-10.2); Carbon Dioxide 27 mmol/L (22-30); Chloride 102 mmol/L (98-107); Glucose 98 mg/dL (74-99); Magnesium 1.3 mg/dL (1.6-2.3); Non-African American GFR(CKD) 21 (>60 ml/min/1.73 sqM); Sodium 131 mmol/L (137-145)
--- NOTE | 2025-03-04 08:54 | P.PN ---
Subjective Progress Note Date: 03/04/25 Patient seen and examined at bedside. No acute events. No concern for GI bleed at this time. Hemoglobin 9.1. Objective - Vital Signs Vital signs: Vital Signs Temp 98.2 F 03/04/25 04:00 Pulse 71 03/04/25 04:00 Resp 18 03/04/25 04:00 BP 115/71 03/04/25 04:00 Pulse Ox 96 03/04/25 04:00 FiO2 Intake & Output 03/03/25 03/04/25 03/04/25 18:59 06:59 18:59 Intake Total 658 300 118 Output Total 1125 2025 Balance -467 -1725 118 Weight 99.5 kg Intake: Intake, IV Titration 300 Amount Lactated Ringers 1,000 ml 300 @ 100 mls/hr IV .Q10H [place] Rx#:[id number] Oral 658 118 Output: Urine 1125 2024 Other: Voiding Method Indwelling Catheter Indwelling Catheter - Constitutional General appearance: Present: cooperative, no acute distress - Respiratory Details: No difficulty with respiration - Gastrointestinal General gastrointestinal: Present: soft. Absent: tenderness - Psychiatric Psychiatric: Present: A&O x's 3 - Labs CBC & Chem 7: 03/04/25 06:58 03/04/25 06:58 Labs: Abnormal Lab Results - Last 24 Hours (Table) 03/03/25 03/03/25 03/04/25 Range/Units 05:39 05:39 06:58 RBC (4.30-5.90) m/uL Hgb (13.0-17.5) gm/dL Hct (39.0-53.0) % MCHC (31.0-37.0) g/dL RDW (11.5-15.5) % Plt Count (150-450) k/uL Sodium 131 L (137-145) mmol/L BUN 38 H (9-20) mg/dL Creatinine 2.98 H (0.66-1.25) mg/dL Calcium 8.1 L (8.4-10.2) mg/dL Magnesium 1.3 L (1.6-2.3) mg/dL Vitamin B12 1742.0 H (200.0-944.0) pg/mL Folate 32.80 H (4.40-31.00) ng/mL 03/04/25 Range/Units 06:58 RBC 3.06 L (4.30-5.90) m/uL Hgb 9.1 L (13.0-17.5) gm/dL Hct 30.3 L (39.0-53.0) % MCHC 30.0 L (31.0-37.0) g/dL RDW 15.6 H (11.5-15.5) % Plt Count 108 L (150-450) k/uL Sodium (137-145) mmol/L BUN (9-20) mg/dL Creatinine (0.66-1.25) mg/dL Calcium (8.4-10.2) mg/dL Magnesium (1.6-2.3) mg/dL Vitamin B12 (200.0-944.0) pg/mL Folate (4.40-31.00) ng/mL Microbiology - Last 24 Hours (Table) 02/27/25 18:52 Blood Culture - Preliminary Blood Assessment and Plan Plan: 65-year-old male with concern for GI bleed that appears to have resolved. No current evidence of GI bleed. Hemoglobin continues to be stable. Surgically stable for discharge.
--- NOTE | 2025-03-04 10:19 | P.PN ---
Subjective Patient is seen in follow-up for acute kidney injury and chronic kidney disease. Renal function improving. Denies chest pain or shortness of breath. On IV fluids. Vital signs are stable. General: No acute distress. HEENT: Head exam is unremarkable. LUNGS: No audible rhonchi or wheezes. HEART: Rate and Rhythm are regular. ABDOMEN: Nontender. EXTREMITITES: No edema. Objective - Vital Signs Vital signs: Vital Signs Temp 98.1 F 03/04/25 08:00 Pulse 69 03/04/25 08:00 Resp 16 03/04/25 08:00 BP 129/78 03/04/25 08:00 Pulse Ox 98 03/04/25 08:00 FiO2 Intake & Output 03/03/25 03/04/25 03/04/25 18:59 06:59 18:59 Intake Total 658 300 118 Output Total 1122024 Balance -387 -7889 118 Weight 99.5 kg Intake: Intake, IV Titration 300 Amount Lactated Ringers 1,000 ml 300 @ 100 mls/hr IV .Q10H [facility] Rx#:[id number] Oral 658 118 Output: Urine 1125 2024 Other: Voiding Method Indwelling Catheter Indwelling Catheter - Labs CBC & Chem 7: 03/04/25 06:58 03/04/25 06:58 Labs: Abnormal Lab Results - Last 24 Hours (Table) 03/03/25 03/03/25 03/04/25 Range/Units 05:39 05:39 06:58 RBC (4.30-5.90) m/uL Hgb (13.0-17.5) gm/dL Hct (39.0-53.0) % MCHC (31.0-37.0) g/dL RDW (11.5-15.5) % Plt Count (150-450) k/uL Sodium 131 L (137-145) mmol/L BUN 38 H (9-20) mg/dL Creatinine 2.98 H (0.66-1.25) mg/dL Calcium 8.1 L (8.4-10.2) mg/dL Magnesium 1.3 L (1.6-2.3) mg/dL Vitamin B12 1742.0 H (200.0-944.0) pg/mL Folate 32.80 H (4.40-31.00) ng/mL 03/04/25 Range/Units 06:58 RBC 3.06 L (4.30-5.90) m/uL Hgb 9.1 L (13.0-17.5) gm/dL Hct 30.3 L (39.0-53.0) % MCHC 30.0 L (31.0-37.0) g/dL RDW 15.6 H (11.5-15.5) % Plt Count 108 L (150-450) k/uL Sodium (137-145) mmol/L BUN (9-20) mg/dL Creatinine (0.66-1.25) mg/dL Calcium (8.4-10.2) mg/dL Magnesium (1.6-2.3) mg/dL Vitamin B12 (200.0-944.0) pg/mL Folate (4.40-31.00) ng/mL Assessment and Plan Plan: Assessment: 1. Acute kidney injury secondary to ATN secondary to infection and A-fib. Questionable urinary retention. Has Jo catheter. Renal function improving. Creatinine 7 on admission and is 2.98 today. 2. Chronic kidney disease stage IIIb with baseline creatinine 1.6-1.7 secondary to diabetic kidney disease. 3. A-fib with RVR status post Cardizem drip. 4. Chronic kidney disease mineral bone disease maintained on calcitriol. 5. Anemia of chronic kidney disease. Iron replete. Stool for occult blood positive. On Aranesp. 6. Metabolic acidosis secondary to acute kidney injury status post bicarb drip. Improved. 7. Hypomagnesemia from poor intake. Plan: Maintain IV fluids. Replace magnesium. Continue to monitor renal function and urine output. DC Jo catheter possibly tomorrow.
[2025-03-04 11:22] LABS: Glucose,Whole Blood 95 mg/dL (70-110)
[2025-03-04] MEDS: MAGNESIUM SULFATE-D5W PMX 1 GM in DEXTROSE/WATER 1 100ML.BAG IVPB SCH (11:51)
--- NOTE | 2025-03-04 12:43 | P.PN ---
Subjective Progress Note Date: 03/04/25 65-year-old male with CKD stage III, hbt-szvqexs-uulpmmeil diabetes mellitus, alcohol use disorder, depression presenting with nausea, vomiting, diarrhea, and and urinary retention. Patient noticed that he hasn't urinated for the past 3 days despite normal oral intake. States that he has been feeling nauseous and has been vomiting nonbloody emesis almost every day for the past 3 days. He admits to increased alcohol intake this past weekend stating that he drinks about 1/5 of [place]. His last drink was yesterday of the same type of alcohol. 02/28 - He was seen and examined at bedside this morning, remaining in the ED. He was noted by the nurse to have been in a run of SVT. At the time he had no complaints of chest pain, worsening shortness of breath or pressure. Vagal maneuvers were attempted to have him return to sinus rhythm, however were unsuccessful. Administered a total of 18 mg adenosine for return to sinus rhythm. He had no complaints at that time. Troponins were checked at the time which found to be elevated at 0.605, cardiology was then consulted. Antibiotics were discontinued as he showed no signs or symptoms of having a UTI. 03/01 - He is seen and examined this morning, now on the 3rd floor. States that he has been feeling well, with no acute events overnight. He has no acute complaints at this time. Continues to deny chest pain, shortness of breath, nausea or vomiting. 03/02 - He is seen and examined at bedside this morning. Continues to state that he is feeling okay, without any acute events overnight or any acute complaints at this time. Continues to deny any chest pain, shortness of breath, nausea or vomiting. He is scheduled undergo an EGD this morning, and has been n.p.o. since midnight. His D5W with bicarb was discontinued yesterday after the resolution of his metabolic acidosis, and he was initiated on LR at 100 cc/h. Per cardiology, he was initiated on metoprolol tartrate 25 mg twice daily. 03/03 - He is seen and examined at bedside this morning. No acute events overnight and no complaints at this time. Underwent EGD yesterday which showed no significant abnormality, no obvious ulcer, no signs of active bleeding. Extensive lab workup for his chronic normocytic anemia has been ordered, will continue to evaluate. 03/04 -patient seen and examined. He has no complaints. No signs of bleeding. Hemoglobin is increasing. Platelets are increasing. Hematology consult pending. Discussed with cardiology, they cleared the patient for discharge. Kidney function is improving, but not yet back to baseline. Likely discharge tomorrow with home care services. REVIEW OF SYSTEMS: Pertinent positives and negatives noted in HPI. Gen: In NAD, non-toxic HEENT: normocephalic, atraumatic, hearing acuity is intant, mucous membranes m oist CVS: perfusing all extremities well, no pitting edema, Respiratory: symmetric chest expansion, no accessory muscle use, GI: soft, NTTP, ND, : no suprapubic tenderness, no CVA tenderness MSK/Derm: no rashes, cyanosis Neuro: CN II-XII intact, no motor weakness, Psych: cooperative, euthymic mood, judgment and insight is intact Data Received Today: Assessment and plan 65-year-old male with CKD stage III, lsw-qivayvj-ezcofmwce diabetes mellitus, alcohol use disorder, depression presenting with nausea, vomiting, diarrhea, and and urinary retention. ED documentation reviewed. Discussed with patient. The patient is admitted with an anticipated greater than 2 midnight stay for evaluation of alcoholic ketoacidosis and ASHA. #Anemia chronic disease secondary to CKD stage IIIb #Thrombocytopenia #Possible malnutrition, with previously established copper deficiency, and prev ious gastric bypass surgery -Hemoglobin this morning 8.6 -Continue protonix 40 mg ivp BID -EGD completed on 03/02/2025 -No known active bleeding -Previous copper from 11/09/2022 shown to be 389; repeat copper ordered today, currently pending -LDH showed to be within normal limits at 200,, haptoglobin within normal limits at 158, vitamin B12 elevated at 1742, folate level elevated at 32.8, remaining anemia workup currently pending -Heme/Onc consulted for further evaluation of chronic anemia and thrombocytopenia #ASHA, with components of prerenal and postrenal, on CKD stage IIIb with baseline creatinine 1.6-1.7 #Hyperkalemia, resolved #Hyponatremia #Urinary retention #Anemia chronic disease secondary to CKD stage IIIb #Secondary hyperparathyroidism -Renal/bladder ultrasound displaying limited evaluation of right kidney, mild dilatation of the left renal collecting system -Continue with LR at 100 cc/h -Improved this morning with fluid resuscitation -Continue with urinary catheter -Continue calcitriol 0.25 mcg PO QD -Continue ferrous sulfate 325 mg PO QD -Iron studies showed iron 98, TIBC 118, 83.05% iron saturation, transferrin 86.4 and ferritin 1015 -Nephrology following #Acute SVT, resolved #Type II NSTEMI possibly secondary to above vs metabolic abnormalities -Trend troponins; 0.605 -> 0.478 -> 0.439 -Echocardiogram ordered, EF 55-60%, mildly increased septal wall thickness, severe RVE/MANJEET -TSH 0.985 -Cardiology following -Cardiac monitoring #History of alcohol abuse #Chronic alcoholic -Monitor intake/output -Monitor for withdrawal symptoms -Ativan per [facility] protocol, monitor electrolytes, monitor for seizure, hypoglycemia precaution -Continue thiamine 100 mg daily, folic acid 1 mg daily and multivitamin #No signs of urinary tract infection -Antibiotics discontinued #Left first toe wound -podiatry consult -wound care consult #Igy-aotruku-ufaxcxvje diabetes mellitus -Humalog insulin SQ sliding scale -Accu-Cheks ACHS -Hypoglycemic precaution -Holding Farxiga #BPH -Flomax 0.4 mg p.o. daily DVT ppx: Hold Eliquis GI PPx: Protonix 40 mg IV twice daily Code status: Full code F: LR at 100 cc/h E: Replete as needed N: Clear liquid diet A: Ambulatory at baseline Anticipated discharge place: Pending clinical course Anticipated discharge time: Pending clinical course Dictation was produced using [employer] dictation software. please excuse any grammatical, word or spelling errors. Objective - Vital Signs Vital signs: Vital Signs Temp 98.0 F 03/04/25 11:56 Pulse 67 03/04/25 11:56 Resp 16 03/04/25 11:56 BP 121/74 03/04/25 11:56 Pulse Ox 100 03/04/25 11:56 FiO2 Intake & Output 03/03/25 03/04/25 03/04/25 18:59 06:59 18:59 Intake Total 658 300 118 Output Total 1124 2024 Balance -840 -5532 118 Weight 99.5 kg Intake: Intake, IV Titration 300 Amount Lactated Ringers 1,000 ml 300 @ 100 mls/hr IV .Q10H [place] Rx#:[id number] Oral 658 118 Output: Urine 1124 2024 Other: Voiding Method Indwelling Catheter Indwelling Catheter Indwelling Catheter - Labs CBC & Chem 7: 03/04/25 06:58 03/04/25 06:58 Labs: Abnormal Lab Results - Last 24 Hours (Table) 03/04/25 03/04/25 Range/Units 06:58 06:58 RBC 3.06 L (4.30-5.90) m/uL Hgb 9.1 L (13.0-17.5) gm/dL Hct 30.3 L (39.0-53.0) % MCHC 30.0 L (31.0-37.0) g/dL RDW 15.6 H (11.5-15.5) % Plt Count 108 L (150-450) k/uL Sodium 131 L (137-145) mmol/L BUN 38 H (9-20) mg/dL Creatinine 2.98 H (0.66-1.25) mg/dL Calcium 8.1 L (8.4-10.2) mg/dL Magnesium 1.3 L (1.6-2.3) mg/dL
[2025-03-04 16:00] LABS: Glucose,Whole Blood 101 mg/dL (70-110)
--- NOTE | 2025-03-04 19:07 | P.CONS ---
History of Present Illness - Reason for Consult Consult date: 03/04/25 Bicytopenia - History of Present Illness The patient is a 65-year-old white male, with multiple medical issues, known to us from prior consult in 11/19. At that time the patient had been admitted to the hospital with COVID, and was seen for pancytopenia. He also had a history of heavy alcohol use, and at that time had claimed to had quit about a year ago although it was not clear that history was reliable. He had an extensive workup, that indicated that his pancytopenia was due to alcohol related marrow suppression, exacerbated by the acute infection from COVID. Supportive treatment was recommended. The patient's stay was further complicated by development of extensive left lower extremity DVT. He was then started on anticoagulation but developed a retroperitoneal hematoma causing a major drop in hemoglobin, with no definite source of bleeding identified. Therefore anticoagulation was stopped and he had an IVC filter placed. Post discharge he was transferred to [facility]. He was seen in follow-up in the office in 12/21. At that time he continued to have pancytopenia, with repeat workup again indicating hypoproliferative anemia. It was felt that this was due to ongoing effects of alcohol on bone marrow and major inflammation as well as blood loss, with slow recovery. The patient did not follow-up as recommended after his initial office visit. At that time it was recommended that he probably was not a good candidate for anticoagulation, given major retroperitoneal bleed on the same, without any obvious source. He had had an EGD and colonoscopy during that admission, revealing nonbleeding esophageal ulcer. It appears that the patient did start consuming alcohol again, and has been doing this on a regular basis, about a fifth/ day. He was admitted with abdominal pain, heartburn, nausea and vomiting as well as diarrhea. The patient has known CKD, and there appeared to be superimposed acute kidney injury. He reported consuming significantly more alcohol than his usual over the prior few days before his admission. He was therefore admitted alcoholic gastritis and ketoacidosis, dehydration and ASHA. At the time of admission, hemoglobin was 10.1, and platelets 143. Hemoglobin subsequently declined into the mid 8 range, it is 9.1 today. Platelets dropped into the 80,000 range, and were up to to 108 today. He had an EGD on 03/02/25, revealing known gastric bypass, and some friability without any obvious ulceration, mass or bleeding Consult was therefore placed for further evaluation and recommendations with The patient has had a cytopenia workup already this admission, showing no evidence of deficiency states. Ferritin is quite high, in the thousand+ range. The patient denied any obvious bleeding The patient is on Eliquis 2.5 mg twice a day, at the time of this admission. It appears that this was started after 09/21. There is no record of him being on that medication during that admission. However during his admission in 01/23 it notes that the patient is on Eliquis for A-fib Review of Systems Constitutional: Reports fatigue, Reports weakness Eyes: denies blurred vision, denies pain Ears: deny: decreased hearing, ear discharge, earache, tinnitus Ears, nose, mouth and throat: Denies headache, Denies sore throat Cardiovascular: Reports decreased exercise tolerance Respiratory: Denies cough Gastrointestinal: Reports abdominal pain, Reports diarrhea, Reports nausea, Repo rts vomiting Genitourinary: Reports as per HPI Musculoskeletal: Reports muscle weakness Integumentary: Denies pruritus, Denies rash Neurological: Reports weakness Psychiatric: Reports as per HPI Endocrine: Reports fatigue Hematologic/Lymphatic: Reports as per HPI Past Medical History Past Medical History: Atrial Fibrillation, Blood Disorder, Diabetes Mellitus, Deep Vein Thrombosis (DVT), Renal Disease, Sleep Apnea/CPAP/BIPAP, Thyroid Disorder Additional Past Medical History / Comment(s): no CPAP/BIPAP. buerger's disease. DVT left leg 2021. hx diabetes - resolved after weight loss in 2000; stage 3 kidney disease. History of Any Multi-Drug Resistant Organisms: None Reported Past Surgical History: Bariatric Surgery, Cholecystectomy, Hernia Repair, Orthopedic Surgery Additional Past Surgical History / Comment(s): gastric bypass; Umbilical hernia, 6x hernia surgeries, fell & broke right hip in 2019 while in [place] & had surg with pin- states right leg is 1 inch and 3/4 shorter than left leg. Past Anesthesia/Blood Transfusion Reactions: No Reported Reaction Additional Past Anesthesia/Blood Transfusion Reaction / Comm: hx blood transfusions, last one in 2022, no problems Past Psychological History: Depression Smoking Status: Never smoker Past Alcohol Use History: None Reported Additional Past Alcohol Use History / Comment(s): Pt states he drinks 4-5 shots of whiskey in mixed drinks 4x a week. Instructed no alcohol 24 hrs prior to surg. Past Drug Use History: None Reported - Past Family History Father Family Medical History: Cancer Mother Family Medical History: Cancer Medications and Allergies Home Medications Medication Instructions Recorded Confirmed Type FLUoxetine HCL [PROzac] 40 mg PO DAILY 08/29/24 02/27/25 History Ferrous Sulfate [Feosol] 325 mg PO DAILY 08/29/24 02/27/25 History Folic Acid 1 mg PO DAILY 08/29/24 02/27/25 History Levothyroxine Sodium 125 mcg PO DAILY 08/29/24 02/27/25 History Tamsulosin [Flomax] 0.4 mg PO DAILY 08/29/24 02/27/25 History allopurinoL 100 mg PO DAILY 08/29/24 02/27/25 History calcitrioL 0.25 mcg PO DAILY 08/29/24 02/27/25 History Torsemide [Demadex] 10 mg PO DAILY 09/08/24 02/27/25 History Apixaban [Eliquis] 2.5 mg PO BID 01/23/25 02/27/25 History Cyanocobalamin (Vitamin B-12) 1,000 mcg PO DAILY 01/23/25 02/27/25 History [Vitamin B-12] Dapagliflozin Propanediol [Farxiga] 10 mg PO DAILY 01/23/25 02/27/25 History Melatonin 5 mg PO HS PRN tab 02/01/25 02/27/25 Rx Thiamine [Vitamin B-1] 100 mg PO DAILY tab 02/01/25 02/27/25 Rx Sulfamethox-Tmp 800-160Mg [Bactrim 1 tab PO Q12HR 02/27/25 02/27/25 History DS 800-160 mg] Allergies Allergy/AdvReac Type Severity Reaction Status Date / Time No Known Allergies Allergy Verified 02/27/25 17:50 Physical Exam Vitals: Vital Signs Temp Pulse Pulse Resp BP Pulse Ox 03/04/25 16:00 98.5 F 68 16 120/75 97 03/04/25 13:07 67 71 16 03/04/25 11:56 98.0 F 67 16 121/74 100 03/04/25 08:00 98.1 F 69 71 16 129/78 98 03/04/25 04:00 98.2 F 71 18 115/71 96 03/04/25 01:12 77 18 03/04/25 00:00 97.9 F 77 18 110/78 96 03/03/25 20:00 98.2 F 74 18 124/76 96 Intake and Output 03/04/25 03/04/25 03/04/25 06:59 14:59 22:59 Intake Total 1236 118 Output Total 1250 675 500 Balance -1250 245 -382 Intake: Intake, IV Titration 1000 Amount Lactated Ringers 1,000 ml 800 @ 100 mls/hr IV .Q10H [place] Rx#:[id number] Magnesium Sulfate-D5w Pmx 200 1 gm In Dextrose/Water 1 100ml.bag @ 100 mls/hr IVPB Q1H [place] Rx#: [id number] Oral 236 118 Output: Urine 1250 675 500 Other: Voiding Method Indwelling Catheter Indwelling Catheter # Bowel Movements 1 1 Weight 99.5 kg - Constitutional General appearance: no acute distress - EENT Eyes: EOMI, PERRLA ENT: hearing grossly normal, normal oropharynx - Neck Neck: no lymphadenopathy - Respiratory Respiratory: bilateral: CTA - Cardiovascular Rhythm: irregularly irregular Heart sounds: normal: S1, S2 - Gastrointestinal General gastrointestinal: normal bowel sounds, soft - Integumentary Integumentary: normal - Neurologic Neurologic: CNII-XII intact - Musculoskeletal Musculoskeletal: strength equal bilaterally - Psychiatric Psychiatric: A&O x's 3, appropriate affect Results CBC & Chem 7: 03/04/25 06:58 03/04/25 06:58 Labs: Abnormal Lab Results - Last 24 Hours (Table) 03/04/25 03/04/25 Range/Units 06:58 06:58 RBC 3.06 L (4.30-5.90) m/uL Hgb 9.1 L (13.0-17.5) gm/dL Hct 30.3 L (39.0-53.0) % MCHC 30.0 L (31.0-37.0) g/dL RDW 15.6 H (11.5-15.5) % Plt Count 108 L (150-450) k/uL Sodium 131 L (137-145) mmol/L BUN 38 H (9-20) mg/dL Creatinine 2.98 H (0.66-1.25) mg/dL Calcium 8.1 L (8.4-10.2) mg/dL Magnesium 1.3 L (1.6-2.3) mg/dL Comments: Echocardiogram report reviewed. Overall normal Chest x-ray: report reviewed (No significant finding) US - abdomen: report reviewed (No significant) Assessment and Plan (1) Bicytopenia Narrative/Plan: The patient was previously seen for pancytopenia in 11/19. He had an extensive workup, that indicated bone marrow suppression from alcohol effect as a primary etiology with, at that time, additional worsening due to inflammation from COVID infection. The patient subsequently also had blood loss. Repeat workup in the office in 12/21 showed no new etiology. It was therefore anticipated that his blood counts would likely recover with time, as long as he abstain from alcohol -The patient did not follow-up in the office, and has been consuming alcohol regularly since. Despite that, his counts during this admission were actually better compared to 11/19. There has been a drop during this admission, again consistent with acute effect from increased alcohol consumption just prior to his admission as well as drop in renal function. However it appears that his counts are stabilizing and possibly starting to improve -Workup for deficiency states was again performed and was negative for the same. It was consistent with hypoproliferative anemia, with high B12/folate and high ferritin. He has also had an EGD, with results as described -Therefore likely diagnosis remains the same. Counts are stable in a safe range. Continue to monitor. If there is a significant drop in hemoglobin, otherwise unexplained, then the possibility of recurrent GI bleed would need to be considered given the presence of gastritis, and use of anticoagulation otherwise it is anticipated that his counts will likely improve over time if he continues to abstain from alcohol -The above was discussed with him in detail. He states that at this time he does have definite plans to try to quit. He has been referred to the [facility], and will be meeting with a counselor soon Current Visit: Yes Status: Acute Code(s): D75.89 - OTHER SPECIFIED DISEASES OF BLOOD AND BLOOD-FORMING ORGANS SNOMED Code(s): 25997475
[2025-03-04 20:02] LABS: Glucose,Whole Blood 107 mg/dL (70-110)
[2025-03-04 22:21] VITALS: RESP 18
[2025-03-05 06:02] LABS: Glucose,Whole Blood 109 mg/dL (70-110)
[2025-03-05 06:37] LABS: Basophils % (A) 0 %; Eosinophils # (A) 0.3 k/uL (0-0.7); Eosinophils % (A) 5 %; HCT 30.4 % (39.0-53.0); HGB 8.8 gm/dL (13.0-17.5); Hypochromasia Moderate; Lymphocytes # (A) 1.6 k/uL (1.0-4.8); Lymphocytes % (A) 28 %; MCH 28.6 pg (25.0-35.0); MCHC 28.9 g/dL (31.0-37.0); MCV 99.1 fL (80.0-100.0); Macrocytosis Slight; Mean Platelet Volume 9.2; Monocytes # (A) 0.6 k/uL (0-1.0); Monocytes % (A) 10 %; Neutrophils % (A) 54 %; Platelet Count 152 k/uL (150-450); RBC 3.07 m/uL (4.30-5.90); RDW 15.7 % (11.5-15.5); WBC 5.6 k/uL (3.8-10.6)
[2025-03-05 07:01] LABS: African American GFR (CKD) 29 (>60 ml/min/1.73 sqM); Anion Gap 1 mmol/L; Blood Urea Nitrogen 33 mg/dL (9-20); Calcium 7.9 mg/dL (8.4-10.2); Carbon Dioxide 29 mmol/L (22-30); Chloride 100 mmol/L (98-107); Glucose 102 mg/dL (74-99); Magnesium 1.8 mg/dL (1.6-2.3); Non-African American GFR(CKD) 25 (>60 ml/min/1.73 sqM); Potassium 4.4 mmol/L (3.5-5.1); Sodium 130 mmol/L (137-145)
--- NOTE | 2025-03-05 09:52 | P.PN ---
Subjective Patient is seen in follow-up for acute kidney injury and chronic kidney disease. Renal function improving. Denies chest pain or shortness of breath. On IV fluids. No active complaints. Vital signs are stable. General: No acute distress. HEENT: Head exam is unremarkable. LUNGS: No audible rhonchi or wheezes. HEART: Rate and Rhythm are regular. ABDOMEN: Nontender. EXTREMITITES: No edema. Objective - Vital Signs Vital signs: Vital Signs Temp 98.4 F 03/05/25 04:00 Pulse 74 03/05/25 04:00 Resp 18 03/05/25 04:00 BP 115/75 03/05/25 04:00 Pulse Ox 96 03/05/25 04:00 FiO2 Intake & Output 03/04/25 03/05/25 03/05/25 18:59 06:59 18:59 Intake Total 1354 300 240 Output Total 1175 1725 Balance 179 -1425 240 Weight 100 kg Intake: Intake, IV Titration 1000 300 Amount Lactated Ringers 1,000 ml 800 300 @ 100 mls/hr IV .Q10H [place] Rx#:[id number] Magnesium Sulfate-D5w Pmx 200 1 gm In Dextrose/Water 1 100ml.bag @ 100 mls/hr IVPB Q1H [place] Rx#: [id number] Oral 354 240 Output: Urine 1175 1725 Other: Voiding Method Indwelling Catheter Indwelling Catheter # Bowel Movements 1 1 - Labs CBC & Chem 7: 03/05/25 05:47 03/05/25 05:47 Labs: Abnormal Lab Results - Last 24 Hours (Table) 03/05/25 03/05/25 Range/Units 05:47 05:47 RBC 3.07 L (4.30-5.90) m/uL Hgb 8.8 L (13.0-17.5) gm/dL Hct 30.4 L (39.0-53.0) % MCHC 28.9 L (31.0-37.0) g/dL RDW 15.7 H (11.5-15.5) % Sodium 130 L (137-145) mmol/L BUN 33 H (9-20) mg/dL Creatinine 2.57 H (0.66-1.25) mg/dL Glucose 102 H (74-99) mg/dL Calcium 7.9 L (8.4-10.2) mg/dL Microbiology - Last 24 Hours (Table) 02/27/25 18:52 Blood Culture - Final Blood Assessment and Plan Plan: Assessment: 1. Acute kidney injury secondary to ATN secondary to infection and A-fib. Questionable urinary retention. Has Jo catheter. Renal function improving. Creatinine 7 on admission and is 2.57 today. 2. Chronic kidney disease stage IIIb with baseline creatinine 1.6-1.7 secondary to diabetic kidney disease. 3. A-fib with RVR status post Cardizem drip. 4. Chronic kidney disease mineral bone disease maintained on calcitriol. 5. Anemia of chronic kidney disease. Iron replete. Stool for occult blood positive. On Aranesp. 6. Metabolic acidosis secondary to acute kidney injury status post bicarb drip. Improved. 7. Hypomagnesemia from poor intake. Replaced. Better. 8. Hyponatremia secondary to acute kidney injury. Stable. Plan: Maintain IV fluids. Encouraged oral intake. Add fluid restriction. Continue to monitor renal function and urine output. Voiding trial today.
[2025-03-05 11:18] LABS: Glucose,Whole Blood 101 mg/dL (70-110)
[2025-03-05 12:12] VITALS: BP 133/82; PULSE 60; TEMP 98.2
--- NOTE | 2025-03-05 12:23 | P.DS ---
Providers Date of admission: 02/27/25 17:41 Attending physician: Valery Velarde MD Consults: 02/27/25 17:36 Consult Physician Routine Consulting Provider: Patrick Daniels Consult Reason/Comments: ASHA Do you want consulting provider notified?: Yes 02/28/25 05:27 Consult Physician Routine Consulting Provider: Michael Davis Consult Reason/Comments: nail trimming , great toe wound Do you want consulting provider notified?: Yes, Notify in am 03/03/25 12:24 Consult Physician Routine Consulting Provider: Nabil Fitzgerald Consult Reason/Comments: Chronic anemia w/thrombocytopenia Do you want consulting provider notified?: Yes Primary care physician: Stated None Hospital Course: Discharge diagnoses; #Anemia chronic disease secondary to CKD stage IIIb #Thrombocytopenia #Possible malnutrition, with previous established Deficiency, and previous gastric bypass surgery #ASHA, with components of prerenal and postrenal, on CKD stage IIIb with baseline creatinine 1.61.7 #Hyperkalemia, resolved #Hyponatremia #Urinary retention #Secondary hyperparathyroidism #Acute SVT, resolved #History of alcohol abuse #Chronic alcoholic #Bgn-ozpidme-nyeqrnazk diabetes mellitus #BPH Hospital course; 65-year-old male with CKD stage III, rce-xaviyzk-hduirrzik diabetes mellitus, alcohol use disorder, depression presenting with nausea, vomiting, diarrhea, and and urinary retention. Patient noticed that he hasn't urinated for the past 3 days despite normal oral intake. States that he has been feeling nauseous and has been vomiting nonbloody emesis almost every day for the past 3 days. He admits to increased alcohol intake this past weekend stating that he drinks about 1/5 of [place]. His last drink was yesterday of the same type of alcohol. The following morning, he had a run of sustained ventricular tachycardia for which he was given adenosine, with a return to sinus rate and rhythm, and had no complaints throughout the duration of this episode. Throughout the duration of his stay, he had no complaints. Did not complain of any pain, discomfort, nausea, vomiting or diarrhea. He was seen and evaluated by cardiology, wound care, general surgery, nephrology as well as hematology/oncology throughout the duration of his stay. He underwent echocardiogram which showed an EF of 55-60%, however noted right ventricular and right atrial severe dilation. Additionally, he underwent an EGD with biopsy which noted no sites of active bleeding. Throughout the duration of his stay his kidney function continued to improve, working its way closer to his baseline. He did have urinary catheter in place for the majority of his stay, however today he underwent a voiding trial which is successfully passed without issue or complaint. Hematology was consulted for further evaluation of his chronic anemia, and which extensive workup was done during his current hospitalization as well as an extensive workup done during a previous hospitalization in 2021. It was determined that is likely secondary to his heavy alcohol use. His heavy alcohol use was discussed with him throughout the duration of his stay, the importance of cessation from drinking. He verbalized understanding and expressed an interest in making these changes in his life. He was given resources to ensure the opportunity for success in abstinence from alcohol. He will have to follow-up with his primary care physician, nephrology and cardiology within 1 week following discharge. He verbalized an understanding and all of this, and is excited to make positive steps in improving his life upon discharge. Physical Exam: General: nontoxic, no distress, appears at stated age Derm: warm, dry, intact Head: atraumatic, normocephalic, symmetric Eyes: EOMI, anicteric sclera Mouth: no lip lesion, mucus membranes moist Cardiovascular: S1 S2 reg, no murmur, rubs, or gallops Lungs: CTA bilateral, no rales, no accessory muscle use Abdominal: soft, non-tender to palpataion, no appreciable organomegaly Extremities: no gross muscle atrophy, no edema, no contractures Neuro: Alert, Oriented, CNII-XII grossly intact, gait normal Psych: well appearing, appropriate affect Dictation was produced using [employer] dictation software. please excuse any grammatical, word or spelling errors. Oli Chen MD PGY-1 IM I saw and evaluated the patient during the quezada and critical portions of this encounter, and discussed the case in detail with the resident author of this note, I agree with the Assessment and Plan, and my changes, if any, are highlighted in blue. A total of 38 minutes were spent on this discharge. Patient Condition at Discharge: Fair Plan - Discharge Summary Discharge Rx Participant: No New Discharge Prescriptions: New Metoprolol Tartrate [Lopressor] 25 mg PO BID #60 tab Darbepoetin Epifanio [Aranesp] 40 mcg SQ Q7D #4 each Multivitamins, Thera [Multivitamin (formulary)] 1 each PO DAILY tab Pantoprazole Sodium [Protonix] 40 mg PO DAILY #60 tab Continue Tamsulosin [Flomax] 0.4 mg PO DAILY Ferrous Sulfate [Feosol] 325 mg PO DAILY Levothyroxine Sodium 125 mcg PO DAILY Folic Acid 1 mg PO DAILY FLUoxetine HCL [PROzac] 40 mg PO DAILY calcitrioL 0.25 mcg PO DAILY Thiamine [Vitamin B-1] 100 mg PO DAILY tab allopurinoL 100 mg PO DAILY Apixaban [Eliquis] 2.5 mg PO BID Dapagliflozin Propanediol [Farxiga] 10 mg PO DAILY Cyanocobalamin (Vitamin B-12) [Vitamin B-12] 1,000 mcg PO DAILY Melatonin 5 mg PO HS PRN tab PRN Reason: Insomnia Discontinued Torsemide [Demadex] 10 mg PO DAILY Sulfamethox-Tmp 800-160Mg [Bactrim DS 800-160 mg] 1 tab PO Q12HR Discharge Medication List FLUoxetine HCL [PROzac] 40 mg PO DAILY 08/29/24 [History] Ferrous Sulfate [Feosol] 325 mg PO DAILY 08/29/24 [History] Folic Acid 1 mg PO DAILY 08/29/24 [History] Levothyroxine Sodium 125 mcg PO DAILY 08/29/24 [History] Tamsulosin [Flomax] 0.4 mg PO DAILY 08/29/24 [History] allopurinoL 100 mg PO DAILY 08/29/24 [History] calcitrioL 0.25 mcg PO DAILY 08/29/24 [History] Apixaban [Eliquis] 2.5 mg PO BID 01/23/25 [History] Cyanocobalamin (Vitamin B-12) [Vitamin B-12] 1,000 mcg PO DAILY 01/23/25 [History] Dapagliflozin Propanediol [Farxiga] 10 mg PO DAILY 01/23/25 [History] Melatonin 5 mg PO HS PRN tab 02/01/25 [Rx] Thiamine [Vitamin B-1] 100 mg PO DAILY tab 02/01/25 [Rx] Darbepoetin Epifanio [Aranesp] 40 mcg SQ Q7D #4 each 03/05/25 [Rx] Metoprolol Tartrate [Lopressor] 25 mg PO BID #60 tab 03/05/25 [Rx] Multivitamins, Thera [Multivitamin (formulary)] 1 each PO DAILY tab 03/05/25 [Rx] Pantoprazole Sodium [Protonix] 40 mg PO DAILY #60 tab 03/05/25 [Rx] Follow up Appointment(s)/Referral(s): Odilon Huddleston MD [STAFF PHYSICIAN] - 1 Week None,Stated [Primary Care Provider] - 1-2 days Patrick Daniels DO [STAFF PHYSICIAN] - 1 Week [facility] Visiting Nurse, [NON-STAFF] - Patient Instructions/Handouts: Abuse of Alcohol (GEN) Activity/Diet/Wound Care/Special Instructions: Please be sure to follow up with your PCP, Nephrology and cardiology within 1 week of discharge. Discharge/Stand Alone Forms: AA [facility]adeem Felix, Community Resources, Outpatient Counseling, In Substance Abuse Facilities Discharge Disposition: HOME WITH HOME HEALTH SERVICES
[2025-03-05 13:47] LABS: Lead, Blood <0.5 ug/dL (<5.0)
[2025-03-05 14:55] LABS: Zinc, Serum 33 ug/dL (60-130)
--- NOTE | 2025-03-06 22:53 | CDI ---
Documentation Clarification Form Date: 03/06/2025 10:48:25 PM From: Catherine Gonzales Phone: Admit Date: 02/27/2025 05:41:00 PM Patient Name: Stanislav Harrison Visit Number: [id number] Discharge Date: 03/05/2025 02:58:00 PM ATTENTION: The Clinical Documentation Specialists (CDI) and [facility] Coding Staff appreciate your assistance in clarifying documentation. Please respond to the clarification below the line at the bottom and electronically sign. The CDI & [facility] Coding staff will review the response and follow-up if needed. Please note: Queries are made part of the Legal Health Record. If you have any questions, please contact the author of this message via ITS. Doctor/Provider: Patrick Daniels There is documentation of chronic kidney disease mineral bone disease per Nephrology Progress Notes. Additional clarification is requested. History/Risk Factors: 65yo M, ATN, A-fib, BPH w urine retention, CKD IIIB w anemia, alcohol abuse with gastritis w bleeding, alcoholic ketoacidosis, hypomagnesemia, hyponatremia Clinical Indicators: Phosphorus level 02/27 6.7 4/ 4.6 Treatment: maintained on calcitriol Can you please specify the mineral bone disease, if possible? [ ] Renal osteodystrophy [ x] Mineral bone disease [ ] Other, please specify [ ] Unable to determine (Template Last Revised: January 2021) MTDD
[2025-03-07 03:22] LABS: Arsenic Whole Blood <3 mcg/L (<23)
--- NOTE | 2025-03-09 11:46 | P.GSHP ---
History of Present Illness H&P Date: 03/02/25 Chief Complaint: Ingrowing nail Patient is a 65-year-old white male being seen by podiatry for a painful left hallux nail of several weeks. Patient states no self treatment has been sore and draining. He also has elongated nails that he has been unable to attend to it with specialized nail cutting equipment. Past Medical History Past Medical History: Atrial Fibrillation, Blood Disorder, Diabetes Mellitus, Deep Vein Thrombosis (DVT), Renal Disease, Sleep Apnea/CPAP/BIPAP, Thyroid Disorder Additional Past Medical History / Comment(s): no CPAP/BIPAP. buerger's disease. DVT left leg 2021. hx diabetes - resolved after weight loss in 2000; stage 3 kidney disease. History of Any Multi-Drug Resistant Organisms: None Reported Past Surgical History: Bariatric Surgery, Cholecystectomy, Hernia Repair, Orthopedic Surgery Additional Past Surgical History / Comment(s): gastric bypass; Umbilical hernia, 6x hernia surgeries, fell & broke right hip in 2018 while in [place] & had surg with pin- states right leg is 1 inch and 3/4 shorter than left leg. Past Anesthesia/Blood Transfusion Reactions: No Reported Reaction Additional Past Anesthesia/Blood Transfusion Reaction / Comment(s): hx blood transfusions, last one in 2022, no problems Past Psychological History: Depression Smoking Status: Never smoker Past Alcohol Use History: None Reported Past Drug Use History: None Reported - Past Family History Father Family Medical History: Cancer Mother Family Medical History: Cancer Medications and Allergies Home Medications Medication Instructions Recorded Confirmed Type FLUoxetine HCL [PROzac] 40 mg PO DAILY 08/29/24 02/27/25 History Ferrous Sulfate [Feosol] 325 mg PO DAILY 08/29/24 02/27/25 History Folic Acid 1 mg PO DAILY 08/29/24 02/27/25 History Levothyroxine Sodium 125 mcg PO DAILY 08/29/24 02/27/25 History Tamsulosin [Flomax] 0.4 mg PO DAILY 08/29/24 02/27/25 History allopurinoL 100 mg PO DAILY 08/29/24 02/27/25 History calcitrioL 0.25 mcg PO DAILY 08/29/24 02/27/25 History Apixaban [Eliquis] 2.5 mg PO BID 01/23/25 02/27/25 History Cyanocobalamin (Vitamin B-12) 1,000 mcg PO DAILY 01/23/25 02/27/25 History [Vitamin B-12] Dapagliflozin Propanediol [Farxiga] 10 mg PO DAILY 01/23/25 02/27/25 History Melatonin 5 mg PO HS PRN tab 02/01/25 02/27/25 Rx Thiamine [Vitamin B-1] 100 mg PO DAILY tab 02/01/25 02/27/25 Rx Darbepoetin Epifanio [Aranesp] 40 mcg SQ Q7D #4 each 03/05/25 Rx Metoprolol Tartrate [Lopressor] 25 mg PO BID #60 tab 03/05/25 Rx Multivitamins, Thera [Multivitamin 1 each PO DAILY tab 03/05/25 Rx (formulary)] Pantoprazole Sodium [Protonix] 40 mg PO DAILY #60 tab 03/05/25 Rx Allergies Allergy/AdvReac Type Severity Reaction Status Date / Time No Known Allergies Allergy Verified 02/27/25 17:50 Surgical - Exam Vital Signs Temp Pulse Resp BP Pulse Ox 98.2 F 93 20 109/67 96 02/27/25 15:27 02/27/25 15:27 02/27/25 15:27 02/27/25 15:27 02/27/25 15:27 - Cardiovascular Patient has diminished nonpalpable pedal pulses bilateral with posterior tibial pulse 0/4 bilateral dorsalis pedis pulse 1/4 bilateral there is no digital hair x 10 extremities are cool to cool bilateral there is atrophy of the dermis bilateral - Integumentary Patient has elongated dystrophic mycotic nails with an ingrown nail of the medial border left hallux. There is localized erythema edema hemorrhagic changes noted with hypertrophic nail fold pain on palpation patient's right third toenail is also dystrophic and shows lysis with hemorrhagic changes to in the nail plate nailbed area to the proximal nail fold with localized erythema and edema of the proximal nail fold. Remaining nails are thick mycotic and dystrophic. - Neurologic Patient has loss of protective sensation bilateral with neuropathy up to incl uding the lower leg bilateral - Musculoskeletal All inverters everters plantarflex dorsiflexors grossly intact symmetric bilateral range of motion ankle joint subtalar joint midtarsal joint metatarsophalangeal joints grossly normal symmetric bilateral Results - Labs 03/05/25 05:47 03/05/25 05:47 Assessment and Plan Assessment: Ingrowing nail left hallux Hematoma right third toe Alcohol neuropathy bilateral Peripheral vascular disease bilateral Plan: Exam reviewed patient's past medical history and chart. Discussed patient findings and treatment. Due to patient's neuropathy no topical or anesthesia was needed for this procedure as well. We discussed with patient simple excision of the ingrowing nail of the left hallux complications prognosis risk expectations. Consent was given for same. Using a nail splitter the the medial border left hallux was cut by cutting into nailbed proximal nail fold of the offending nail plate. We applied triple antibiotic dry sterile dressing patient was instructed in care and orders were written for application of bacitracin Band-Aid daily. We discussed with patient treatment of the hematoma and we removed the nail plate with a hemostat and evacuated the hematogenous fluid with a curette. We treated there with the patient's titration dry sterile dressing. Orders were given for local wound care. The remaining nails were debrided manually of mycotic debris of the nail plate nailbed. Patient tolerated procedure and anesthesia well. Patient was instructed in care patient would benefit from follow-up podiatric care upon discharge. Thank you for this consult
== END 2025-03-05 14:58 | disposition home health service (06) | DRG 682 ==
LOC: EC 15:24 → 3SCARD 17:41
PROVIDERS: ADMIT Internal Medicine; ATTEND Internal Medicine
PROC: 0DB48ZX Excision of Esophagogastric Junction, Via Natural or Artificial Opening Endoscopic, Diagnostic (ICD-10-PCS; principal; 2025-03-02 07:30)
DX: N17.0 Acute kidney failure with tubular necrosis (principal); I21.A1 Myocardial infarction type 2; K29.21 Alcoholic gastritis with bleeding; M62.82 Rhabdomyolysis; E46 Unspecified protein-calorie malnutrition; D61.818 Other pancytopenia; E87.29 Other acidosis; E83.39 Other disorders of phosphorus metabolism; E11.22 Type 2 diabetes mellitus with diabetic chronic kidney disease; N18.32 Chronic kidney disease, stage 3b; D63.1 Anemia in chronic kidney disease; I12.9 Hypertensive chronic kidney disease with stage 1 through stage 4 chronic kidney disease, or unspecified chronic kidney disease; D62 Acute posthemorrhagic anemia; N39.0 Urinary tract infection, site not specified; I47.10 Supraventricular tachycardia, unspecified; E87.1 Hypo-osmolality and hyponatremia; I48.0 Paroxysmal atrial fibrillation; E83.51 Hypocalcemia; F10.10 Alcohol abuse, uncomplicated; N25.81 Secondary hyperparathyroidism of renal origin; E86.0 Dehydration; E87.5 Hyperkalemia; N40.1 Benign prostatic hyperplasia with lower urinary tract symptoms; R33.8 Other retention of urine; S91.102A Unspecified open wound of left great toe without damage to nail, initial encounter; E83.42 Hypomagnesemia; Y90.3 Blood alcohol level of 60-79 mg/100 ml; Z79.01 Long term (current) use of anticoagulants; Z79.890 Hormone replacement therapy; Z79.899 Other long term (current) drug therapy; Z79.84 Long term (current) use of oral hypoglycemic drugs; Z98.84 Bariatric surgery status; Z86.718 Personal history of other venous thrombosis and embolism; Z87.19 Personal history of other diseases of the digestive system; Z68.29 Body mass index [BMI] 29.0-29.9, adult; M89.8X9 Other specified disorders of bone, unspecified site
CPT/HCPCS: 36415; 43239; 51702; 51798; 71045; 76770; 80048; 80053; 80320; 81001; 82075; 82175; 82272; 82525; 82550; 82607; 82728; 82746; 83010; 83540; 83550; 83605; 83615; 83655; 83690; 83735; 84100; 84443; 84466; 84484; 84630; 85025; 85027; 85045; 85610; 85730; 86880; 87040; 88305; 88313; 93306; 96361; 96365; 96366; 96375; 96376; 99291

== ENCOUNTER 2025-03-21 11:39 | Inpatient (IN) | payer MEDICARE ==
[2025-03-21 14:51] LABS: Basophils # (A) 0.02 10*3/uL (0.00-0.10); Basophils % (A) 0.3 %; HGB 10.2 g/dL (13.0-17.0); Lymphocytes # (A) 2.64 10*3/uL (0.90-5.00); Lymphocytes % (A) 36.5 %; MCH 30.2 pg (27.0-32.0); MCHC 31.9 g/dL (32.0-37.0); MCV 94.7 fL (80.0-97.0); Monocytes # (A) 0.31 10*3/uL (0.20-1.00); Monocytes % (A) 4.3 %; Neutrophils # (A) 4.22 10*3/uL (1.80-7.70); Neutrophils % (A) 58.3 %; Platelet Count 313 10*3/uL (140-440); RBC 3.38 10*6/uL (4.40-5.60); WBC 7.23 10*3/uL (4.50-10.00)
[2025-03-21] MEDS: SODIUM CHLORIDE 0.9% 1,000 ML IV ONE (14:54)
--- NOTE | 2025-03-21 15:06 | ED ---
Psych HPI - General Source: patient Mode of arrival: ambulatory <Sujey Olivo - Last Filed: 03/21/25 23:21> - General Source: patient, RN notes reviewed, old records reviewed <Junaid Cabrera - Last Filed: 03/22/25 00:06> - General Chief Complaint: Psychiatric Symptoms Stated Complaint: failure to thrive Time Seen by Provider: 03/21/25 11:45 - History of Present Illness Initial Comments: 65-year-old male with past medical history of A-fib, diabetes, DVT, renal disease who presents to the emergency department with depression and not wanting to live anymore. His sister called EMS this morning. He has a ostomy rn. Commonwealth Attorney got a hold of the sister stating that he had not taken his medication since Wednesday. Patient has been drinking a pint of alcohol daily. He did drink this morning. Patient states he has not want to live anymore due to his chronic illnesses but states that he could never attempt to harm himself out of fear. He is purposely trying to drink himself to . Sister states this has happened to him previously but he does not follow with a psychiatrist or take any psychiatric medications. Patient denies any other substance abuse. No other alleviating, precipitating or modifying factors (Sujey Olivo) - Related Data Home Medications Medication Instructions Recorded Confirmed Ferrous Sulfate [Feosol] 325 mg PO DAILY 08/29/24 03/21/25 Folic Acid 1 mg PO DAILY 08/29/24 03/21/25 Levothyroxine Sodium 125 mcg PO DAILY 08/29/24 03/21/25 Tamsulosin [Flomax] 0.4 mg PO DAILY 08/29/24 03/21/25 allopurinoL 100 mg PO DAILY 08/29/24 03/21/25 calcitrioL 0.25 mcg PO DAILY 08/29/24 03/21/25 Apixaban [Eliquis] 2.5 mg PO BID 01/23/25 03/21/25 Cyanocobalamin (Vitamin B-12) 1,000 mcg PO DAILY 01/23/25 03/21/25 [Vitamin B-12] Dapagliflozin Propanediol [Farxiga] 10 mg PO DAILY 01/23/25 03/21/25 FLUoxetine HCL [Sarafem] 60 mg PO DAILY 03/21/25 03/21/25 Multivitamins, Thera [Multivitamin 1 tab PO DAILY 03/21/25 03/21/25 (formulary)] hydrOXYzine HCL [Atarax] 25 - 50 mg PO HS 03/21/25 03/21/25 Previous Rx's Medication Instructions Recorded Melatonin 5 mg PO HS PRN tab 02/01/25 Thiamine [Vitamin B-1] 100 mg PO DAILY tab 02/01/25 Darbepoetin Epifanio [Aranesp] 40 mcg SQ Q7D #4 each 03/05/25 Metoprolol Tartrate [Lopressor] 25 mg PO BID #60 tab 03/05/25 Pantoprazole Sodium [Protonix] 40 mg PO DAILY #60 tab 03/05/25 Allergies Allergy/AdvReac Type Severity Reaction Status Date / Time No Known Allergies Allergy Verified 03/21/25 16:26 Review of Systems ROS Other: All systems not noted in ROS Statement are negative. <Sujey Olivo - Last Filed: 03/21/25 23:21> ROS Other: All systems not noted in ROS Statement are negative. <Junaid Cabrera - Last Filed: 03/22/25 00:06> ROS Statement: Those systems with pertinent positive or pertinent negative responses have been documented in the HPI. Past Medical History Past Medical History: Atrial Fibrillation, Blood Disorder, Diabetes Mellitus, Deep Vein Thrombosis (DVT), Renal Disease, Sleep Apnea/CPAP/BIPAP, Thyroid Disorder Additional Past Medical History / Comment(s): no CPAP/BIPAP. buerger's disease. DVT left leg 2021. hx diabetes - resolved after weight loss in 2000; stage 3 kidney disease. History of Any Multi-Drug Resistant Organisms: None Reported Past Surgical History: Bariatric Surgery, Cholecystectomy, Hernia Repair, Orthopedic Surgery Additional Past Surgical History / Comment(s): gastric bypass; Umbilical hernia, 6x hernia surgeries, fell & broke right hip in 2019 while in [place] & had surg with pin- states right leg is 1 inch and 3/4 shorter than left leg. Past Anesthesia/Blood Transfusion Reactions: No Reported Reaction Additional Past Anesthesia/Blood Transfusion Reaction / Comment(s): hx blood transfusions, last one in 2022, no problems Past Psychological History: Depression Smoking Status: Never smoker Past Alcohol Use History: None Reported Past Drug Use History: None Reported - Past Family History Father Family Medical History: Cancer Mother Family Medical History: Cancer <Sujey Olivo - Last Filed: 03/21/25 23:21> General Exam Limitations: no limitations General appearance: alert, appears intoxicated Head exam: Present: atraumatic, normocephalic, normal inspection Eye exam: Present: normal appearance, PERRL, EOMI. Absent: scleral icterus, conjunctival injection, periorbital swelling ENT exam: Present: normal exam, mucous membranes moist Neck exam: Present: normal inspection. Absent: tenderness, meningismus, lymphadenopathy Respiratory exam: Present: normal lung sounds bilaterally. Absent: respiratory distress, wheezes, rales, rhonchi, stridor GI/Abdominal exam: Present: soft, normal bowel sounds. Absent: distended, t enderness, guarding, rebound, rigid Extremities exam: Present: other (Boot right foot) Neurological exam: Present: alert, oriented X3, CN II-XII intact Psychiatric exam: Present: depressed <Sujey Olivo - Last Filed: 03/21/25 23:21> Course Vital Signs 03/21/25 03/21/25 03/21/25 11:44 14:34 15:36 Temperature 98.8 F Pulse Rate 80 74 Respiratory 18 18 Rate Blood Pressure 84/59 87/52 90/58 O2 Sat by Pulse 97 99 Oximetry 03/21/25 03/21/25 03/21/25 17:18 18:23 19:21 Temperature 97.9 F 98.2 F Pulse Rate 80 82 77 Respiratory 18 18 18 Rate Blood Pressure 107/65 111/76 114/71 O2 Sat by Pulse 95 Oximetry 03/21/25 20:32 Temperature 98.1 F Pulse Rate 78 Respiratory 16 Rate Blood Pressure O2 Sat by Pulse 96 Oximetry Medical Decision Making - Lab Data Result diagrams: 03/21/25 14:32 03/21/25 20:26 <Sujey Olivo - Last Filed: 03/21/25 23:21> - Lab Data Result diagrams: 03/21/25 14:32 03/21/25 20:26 - EKG Data -: EKG Interpreted by Hi <Junaid Cabrera - Last Filed: 03/22/25 00:06> - Medical Decision Making Was pt. sent in by a medical professional or institution (Dr., PA, SYSTEMS ANALYST, urgent care, hospital, or shelter...) When possible be specific @ -No Did you speak to anyone other than the patient for history (EMS, parent, family, police, friend...)? What history was obtained from this source @ -Spoke with sister and EMS for history Did you review nursing and triage notes (agree or disagree)? Why? @ -I reviewed and agree with nursing and triage notes Were old charts reviewed (outside hosp., previous admission, EMS record, old EKG, old radiological studies, urgent care reports/EKG's, shelter records)? Report findings @ -No old charts were reviewed Differential Diagnosis (chest pain, altered mental status, abdominal pain women, abdominal pain men, vaginal bleeding, weakness, fever, dyspnea, syncope, headache, dizziness, GI bleed, back pain, seizure, CVA, palpatations, mental health, musculoskeletal)? @ -Differential Weakness: Hypoglycemia, shock, sepsis, hyponatremia, anemia, infection, AL, ETOH, adverse medicine reaction, overdose, stroke, this is not meant to be an all-inclusive list. EKG interpreted by me (3pts min.). @ -Yes and demonstrates sinus rhythm with a rate of 76. CT interval 188. QRS 145. QTc of 474. No acute ST segment elevations or depressions X-rays interpreted by me (1pt min.). @ -Yes which demonstrates cardiomegaly CT interpreted by me (1pt min.). @ -None done U/S interpreted by me (1pt. min.). @ -None done What testing was considered but not performed or refused? (CT, X-rays, U/S, labs)? Why? @ -None What meds were considered but not given or refused? Why? @ -None Did you discuss the management of the patient with other professionals (professionals i.e. , PA, SYSTEMS ANALYST, lab, RT, psych nurse, sexual assault social worker, buffet runner, teacher, parking officer, director case management)? Give summary @ -Spoke with Dr. Cabrera who will take over care of the patient pending his labs Was smoking cessation discussed for >3mins.? @ -No Was critical care preformed (if so, how long)? @ -No Were there social determinants of health that impacted care today? How? (Homelessness, low income, unemployed, alcoholism, drug addiction, transportation, low edu. Level, literacy, decrease access to med. care, [facility], rehab)? @ -No Was there de-escalation of care discussed even if they declined (Discuss DNR or withdrawal of care, Hospice)? DNR status @ -No What co-morbidities impacted this encounter? (DM, HTN, Smoking, COPD, CAD, Cancer, CVA, ARF, Chemo, Hep., AIDS, mental health diagnosis, sleep apnea, morbid obesity)? @ -Chronic kidney disease, A-fib Was patient admitted / discharged? Hospital course, mention meds given and route, prescriptions, significant lab abnormalities, going to OR and other pertinent info. @ -Upon arrival patient seen and evaluated in bed 24. Thorough history and medical exam was performed. IV was established and laboratory studies are conducted. Chest x-ray performed. Results are pending at this time and case will be signed out to Dr. Cabrera for further disposition (Sujey Olivo) Patient signed out to me pending results of workup. Is a 65-year-old male with history of atrial fibrillation, CKD, alcohol abuse, who presented for suicidal ideation and stated he was trying to drink himself to with [place] and [place]. Patient has not been taking any of his medications for 1 to 2 weeks and has been drinking profusely for the last 1 to 2 weeks. Decreased oral intake not eating as well. Originally seen by Dr. Olivo. Workup initiated. Laboratory studies returned remarkable for hyperkalemia 5.7 in the setting of ASHA on CKD with BUN of 45 and creatinine 3.90., Carbon dioxide is decreased to 6 which is likely related to both the ASHA as well as his alcohol intoxication of 261. troponin indeterminant. BNP slightly elevated. The chest x-ray interpreted by myself as showing no obvious acute cardiopulmonary process. EKG was already interpreted by prior previous provider. Showed a right bundle branch block. Patient did initially present hypotensive and this did improve following a 1 L fluid bolus as well as a 500 cc fluid bolus provided by myself. I updated the patient and he will be a medical admission with psychiatric consult and nephrology consult. Suicide precautions ordered. Sitter ordered. Spoke with Dr. Crouch of nephrology who recommended 4 A of bicarb and a bicarb drip at 100 cc an hour which were ordered. Repeat potassium ordered. Was in agreement with the hyperkalemia cocktail.Otherwise was in agreement the ultrasound of the bladder and kidneys and admission. Jo catheter was placed for strict I's and O's. Ultrasound of the kidneys and bladder as interpreted by myself revealed no evidence of obstructive uropathy. Jo catheter in place. Patient was updated and he was in agreement the plan for admission. I spoke with the admitting provider, Dr. Charlton of [facility] who accepted the admission. CIWA precautions ordered. Diagnosis/symptom? @ -Suicidal ideation, alcohol intoxication, ASHA on CKD, hyperkalemia Acute, or Chronic, or Acute on Chronic? @ -Acute Uncomplicated (without systemic symptoms) or Complicated (systemic symptoms)? @ -Complicated Side effects of treatment? @ -None Exacerbation, Progression, or Severe Exacerbation] @ -No Poses a threat to life or bodily function? @ -Yes Was critical care preformed (if so, how long)? @ -Yes, 32 minutes (Junaid Cabrera) - Lab Data Lab Results 03/21/25 03/21/25 03/21/25 Range/Units 14:32 14:32 14:32 WBC 7.23 (4.50-10.00) 10*3/uL RBC 3.38 L (4.40-5.60) 10*6/uL Hgb 10.2 L (13.0-17.0) g/dL Hct 32.0 L (39.6-50.0) % MCV 94.7 (80.0-97.0) fL MCH 30.2 (27.0-32.0) pg MCHC 31.9 L (32.0-37.0) g/dL Plt Count 313 (140-440) 10*3/uL MPV 10.0 (9.5-12.2) fL Immature Gran % (Auto) 0.6 % Neutrophils % 58.3 % Lymphocytes % 36.5 % Monocytes % 4.3 % Eosinophils % 0.0 % Basophils % 0.3 % Immature Gran # 0.04 (0.00-0.04) 10*3/uL Neutrophils # 4.22 (1.80-7.70) 10*3/uL Lymphocytes # 2.64 (0.90-5.00) 10*3/uL Monocytes # 0.31 (0.20-1.00) 10*3/uL Eosinophils # 0.00 L (0.04-0.35) 10*3/uL Basophils # 0.02 (0.00-0.10) 10*3/uL PT 10.7 (10.0-12.5) sec INR 1.0 (<1.2) APTT 23.2 (22.0-30.0) sec Sodium (137-145) mmol/L Potassium (3.5-5.1) mmol/L Chloride (98-107) mmol/L Carbon Dioxide (22-30) mmol/L Anion Gap mmol/L BUN (9-20) mg/dL Creatinine (0.66-1.25) mg/dL Est GFR (CKD-EPI)AfAm (>60 ml/min/1.73 sqM) Est GFR (CKD-EPI)NonAf (>60 ml/min/1.73 sqM) Glucose (74-99) mg/dL Plasma Lactic Acid Kip (0.7-2.0) mmol/L Calcium (8.4-10.2) mg/dL Magnesium (1.6-2.3) mg/dL Total Bilirubin (0.2-1.3) mg/dL AST (17-59) U/L ALT (4-49) U/L Alkaline Phosphatase (38-126) U/L Troponin I (0.000-0.034) ng/mL NT-Pro-B Natriuret Pep pg/mL Total Protein (6.3-8.2) g/dL Albumin (3.5-5.0) g/dL Urine Color Yellow Urine Appearance Turbid (Clear) Urine pH 5.0 (5.0-8.0) Ur Specific [place] 1.014 (1.001-1.035) Urine Protein Trace H (Negative) Urine Glucose (UA) Negative (Negative) Urine Ketones Negative (Negative) Urine Blood Small H (Negative) Urine Nitrite Negative (Negative) Urine Bilirubin Negative (Negative) Urine Urobilinogen <2.0 (<2.0) mg/dL Ur Leukocyte Esterase Large H (Negative) Urine RBC 18 H (0-5) /hpf Urine WBC >182 H (0-5) /hpf Urine WBC Clumps Many H (None) /hpf Ur Squamous Epith Cells 2 (0-4) /hpf Urine Mucus Rare H (None) /hpf Urine Yeast (Budding) Moderate H (None) /hpf Urine Opiates Screen (NotDetected) Ur Oxycodone Screen (NotDetected) Urine Methadone Screen (NotDetected) Ur Barbiturates Screen (NotDetected) U Tricyclic Antidepress (NotDetected) Ur Phencyclidine Scrn (NotDetected) Ur Amphetamines Screen (NotDetected) U Methamphetamines Scrn (NotDetected) U Benzodiazepines Scrn (NotDetected) Urine Cocaine Screen (NotDetected) U Marijuana (THC) Screen (NotDetected) Serum Alcohol mg/dL 03/21/25 03/21/25 03/21/25 Range/Units 14:32 14:32 14:32 WBC (4.50-10.00) 10*3/uL RBC (4.40-5.60) 10*6/uL Hgb (13.0-17.0) g/dL Hct (39.6-50.0) % MCV (80.0-97.0) fL MCH (27.0-32.0) pg MCHC (32.0-37.0) g/dL Plt Count (140-440) 10*3/uL MPV (9.5-12.2) fL Immature Gran % (Auto) % Neutrophils % % Lymphocytes % % Monocytes % % Eosinophils % % Basophils % % Immature Gran # (0.00-0.04) 10*3/uL Neutrophils # (1.80-7.70) 10*3/uL Lymphocytes # (0.90-5.00) 10*3/uL Monocytes # (0.20-1.00) 10*3/uL Eosinophils # (0.04-0.35) 10*3/uL Basophils # (0.00-0.10) 10*3/uL PT (10.0-12.5) sec INR (<1.2) APTT (22.0-30.0) sec Sodium 134 L (137-145) mmol/L Potassium 5.7 H (3.5-5.1) mmol/L Chloride 106 (98-107) mmol/L Carbon Dioxide 6 L* (22-30) mmol/L Anion Gap 22 mmol/L BUN 45 H (9-20) mg/dL Creatinine 3.90 H (0.66-1.25) mg/dL Est GFR (CKD-EPI)AfAm 18 (>60 ml/min/1.73 sqM) Est GFR (CKD-EPI)NonAf 15 (>60 ml/min/1.73 sqM) Glucose 99 (74-99) mg/dL Plasma Lactic Acid Kip 1.9 (0.7-2.0) mmol/L Calcium 7.3 L (8.4-10.2) mg/dL Magnesium 1.7 (1.6-2.3) mg/dL Total Bilirubin 0.5 (0.2-1.3) mg/dL AST 37 (17-59) U/L ALT 12 (4-49) U/L Alkaline Phosphatase 163 H (38-126) U/L Troponin I 0.021 (0.000-0.034) ng/mL NT-Pro-B Natriuret Pep 1900 pg/mL Total Protein 5.4 L (6.3-8.2) g/dL Albumin 3.0 L (3.5-5.0) g/dL Urine Color Urine Appearance (Clear) Urine pH (5.0-8.0) Ur Specific [place] (1.001-1.035) Urine Protein (Negative) Urine Glucose (UA) (Negative) Urine Ketones (Negative) Urine Blood (Negative) Urine Nitrite (Negative) Urine Bilirubin (Negative) Urine Urobilinogen (<2.0) mg/dL Ur Leukocyte Esterase (Negative) Urine RBC (0-5) /hpf Urine WBC (0-5) /hpf Urine WBC Clumps (None) /hpf Ur Squamous Epith Cells (0-4) /hpf Urine Mucus (None) /hpf Urine Yeast (Budding) (None) /hpf Urine Opiates Screen (NotDetected) Ur Oxycodone Screen (NotDetected) Urine Methadone Screen (NotDetected) Ur Barbiturates Screen (NotDetected) U Tricyclic Antidepress (NotDetected) Ur Phencyclidine Scrn (NotDetected) Ur Amphetamines Screen (NotDetected) U Methamphetamines Scrn (NotDetected) U Benzodiazepines Scrn (NotDetected) Urine Cocaine Screen (NotDetected) U Marijuana (THC) Screen (NotDetected) Serum Alcohol 261 H* mg/dL 03/21/25 Range/Units 14:32 WBC (4.50-10.00) 10*3/uL RBC (4.40-5.60) 10*6/uL Hgb (13.0-17.0) g/dL Hct (39.6-50.0) % MCV (80.0-97.0) fL MCH (27.0-32.0) pg MCHC (32.0-37.0) g/dL Plt Count (140-440) 10*3/uL MPV (9.5-12.2) fL Immature Gran % (Auto) % Neutrophils % % Lymphocytes % % Monocytes % % Eosinophils % % Basophils % % Immature Gran # (0.00-0.04) 10*3/uL Neutrophils # (1.80-7.70) 10*3/uL Lymphocytes # (0.90-5.00) 10*3/uL Monocytes # (0.20-1.00) 10*3/uL Eosinophils # (0.04-0.35) 10*3/uL Basophils # (0.00-0.10) 10*3/uL PT (10.0-12.5) sec INR (<1.2) APTT (22.0-30.0) sec Sodium (137-145) mmol/L Potassium (3.5-5.1) mmol/L Chloride (98-107) mmol/L Carbon Dioxide (22-30) mmol/L Anion Gap mmol/L BUN (9-20) mg/dL Creatinine (0.66-1.25) mg/dL Est GFR (CKD-EPI)AfAm (>60 ml/min/1.73 sqM) Est GFR (CKD-EPI)NonAf (>60 ml/min/1.73 sqM) Glucose (74-99) mg/dL Plasma Lactic Acid Kip (0.7-2.0) mmol/L Calcium (8.4-10.2) mg/dL Magnesium (1.6-2.3) mg/dL Total Bilirubin (0.2-1.3) mg/dL AST (17-59) U/L ALT (4-49) U/L Alkaline Phosphatase (38-126) U/L Troponin I (0.000-0.034) ng/mL NT-Pro-B Natriuret Pep pg/mL Total Protein (6.3-8.2) g/dL Albumin (3.5-5.0) g/dL Urine Color Urine Appearance (Clear) Urine pH (5.0-8.0) Ur Specific [place] (1.001-1.035) Urine Protein (Negative) Urine Glucose (UA) (Negative) Urine Ketones (Negative) Urine Blood (Negative) Urine Nitrite (Negative) Urine Bilirubin (Negative) Urine Urobilinogen (<2.0) mg/dL Ur Leukocyte Esterase (Negative) Urine RBC (0-5) /hpf Urine WBC (0-5) /hpf Urine WBC Clumps (None) /hpf Ur Squamous Epith Cells (0-4) /hpf Urine Mucus (None) /hpf Urine Yeast (Budding) (None) /hpf Urine Opiates Screen Not Detected (NotDetected) Ur Oxycodone Screen Not Detected (NotDetected) Urine Methadone Screen Not Detected (NotDetected) Ur Barbiturates Screen Not Detected (NotDetected) U Tricyclic Antidepress Not Detected (NotDetected) Ur Phencyclidine Scrn Not Detected (NotDetected) Ur Amphetamines Screen Not Detected (NotDetected) U Methamphetamines Scrn Not Detected (NotDetected) U Benzodiazepines Scrn Not Detected (NotDetected) Urine Cocaine Screen Not Detected (NotDetected) U Marijuana (THC) Screen Not Detected (NotDetected) Serum Alcohol mg/dL - EKG Data EKG Comments: 12-lead Electrocardiogram Interpretation Note EKG was reviewed and interpreted by myself. 12-lead ECG performed at 1749 is interpreted by me as revealing normal sinus rhythm at a rate of 90 beats per minute. [place] is normal. CT interval is 173 ms, QRS duration is 142 ms, QTc is 479 ms.. There were no ST or T wave abnormalities to suggest myocardial ische [place] or injury. R wave progression across the precordium was satisfactory. By my interpretation this EKG is non-diagnostic for acute ischemia. (Junaid Cabrera) Critical Care Time Critical Care Time: Yes Total Critical Care Time: 32 <Junaid Cabrera - Last Filed: 03/22/25 00:06> Disposition <Sujey Olivo - Last Filed: 03/21/25 23:21> Time of Disposition: 18:35 <Junaid Cabrera - Last Filed: 03/22/25 00:06> Clinical Impression: Suicidal behavior, Acute kidney injury superimposed on CKD, Alcohol intoxication, Hyperkalemia, Dehydration Disposition: ADMITTED IP TO THIS HOSP Condition: Serious
[2025-03-21 15:09] LABS: Partial Thromboplastin Time 23.2 sec (22.0-30.0); Prothrombin Time 10.7 sec (10.0-12.5)
[2025-03-21 15:10] LABS: ALT 12 U/L (4-49); AST 37 U/L (17-59); African American GFR (CKD) 18 (>60 ml/min/1.73 sqM); Alkaline Phosphatase 163 U/L (38-126); Anion Gap 22 mmol/L; Blood Urea Nitrogen 45 mg/dL (9-20); Calcium 7.3 mg/dL (8.4-10.2); Chloride 106 mmol/L (98-107); Glucose 99 mg/dL (74-99); Magnesium 1.7 mg/dL (1.6-2.3); Non-African American GFR(CKD) 15 (>60 ml/min/1.73 sqM); Potassium 5.7 mmol/L (3.5-5.1); Sodium 134 mmol/L (137-145); Total Bilirubin 0.5 mg/dL (0.2-1.3); Total Protein 5.4 g/dL (6.3-8.2)
[2025-03-21 15:17] LABS: NT-Pro-B-Type Natriuretic Pept 1900 pg/mL
[2025-03-21 15:27] LABS: Carbon Dioxide 6 mmol/L (22-30)
[2025-03-21 15:30] LABS: Alcohol 261 mg/dL
--- NOTE | 2025-03-21 15:34 | XR ---
EXAMINATION TYPE: XR chest 2V DATE OF EXAM: 03/21/2025 3:28 PM COMPARISON: Chest radiographs from 02/27/2025 TECHNIQUE: XR chest 2V Frontal and lateral views of the chest. CLINICAL INDICATION:Male, 65 years old with history of Weakness; FINDINGS: Lungs/Pleura: No pleural effusion or pneumothorax. Minimal left lower lobe airspace opacity. Chronic senescent parenchymal change. Pulmonary vascularity: Unremarkable. Heart/mediastinum: Cardiomediastinal silhouette is enlarged and stable. Musculoskeletal: Multiple level degenerative disc disease changes seen throughout the spine. IMPRESSION: 1. Minimal left lower lobe airspace opacity which may represent atelectasis versus infiltrate. 2. Cardiomegaly. [facility], , 03/21/2025 3:31 PM
[2025-03-21] MEDS ORDERED: ACETAMINOPHEN TAB 325 MG TAB PO PRN (17:00)
[2025-03-21] MEDS ORDERED: NALOXONE 0.4 MG/ML 1 ML VIAL IV PRN (17:00)
[2025-03-21] MEDS ORDERED: ONDANSETRON 4 MG/2 ML VIAL IVP PRN (17:00)
[2025-03-21] MEDS ORDERED: LORazepam 2 MG/ML INJ IV PRN ×3 (17:08)
[2025-03-21 17:16] LABS: Glucose,Whole Blood 89 mg/dL (70-110)
[2025-03-21] MEDS: INSULIN REGULAR 100 UNIT/ML VIAL (IV) IV ONE (17:19)
[2025-03-21] MEDS: DEXTROSE 50% SYRINGE 50 ML IVP ONE (17:21)
[2025-03-21] MEDS: SODIUM BICARB 8.4% 50 ML SYR (1 MEQ/ML) IV ONE (17:25)
[2025-03-21] MEDS: SODIUM BICARB 8.4% 50 ML SYR (1 MEQ/ML) IV STA ×3 (17:26)
[2025-03-21] MEDS: CALCIUM GLUCONATE IN NACL 1 GM in SALINE 1 100ML.BAG IVPB ONE (17:33)
[2025-03-21 17:34] LABS: Appearance,Urine Turbid (Clear); Bilirubin,Urine Negative (Negative); Blood,Urine Small (Negative); Budding Yeast,Urine Moderate /hpf; Color,Urine Yellow; Glucose,Urine (UA) Negative (Negative); Ketones,Urine Negative (Negative); Leukocyte Esterase,Urine Large (Negative); Mucus,Urine Rare /hpf; Nitrite,Urine Negative (Negative); Protein,Urine Trace (Negative); RBC,Urine 18 /hpf (0-5); Specific Gravity,Urine 1.014 (1.001-1.035); Squamous Epithelial Cell,Urine 2 /hpf (0-4); Urobilinogen,Urine <2.0 mg/dL (<2.0); WBC,Urine >182 /hpf (0-5)
[2025-03-21] MEDS: ONDANSETRON 4 MG/2 ML VIAL IVP STA (17:34)
[2025-03-21] MEDS: SODIUM ZIRCONIUM CYCLOSILICATE 10 GM PACKET PO ONE (17:35)
[2025-03-21 17:36] LABS: Amphetamine Screen,Urine Not Detected (NotDetected); Barbiturate Screen,Urine Not Detected (NotDetected); Benzodiazepines Screen,Urine Not Detected (NotDetected); Cocaine Screen,Urine Not Detected (NotDetected); Methadone Screen, Urine Not Detected (NotDetected); Opiate Screen,Urine Not Detected (NotDetected); Oxycodone Screen, Urine Not Detected (NotDetected); Phencyclidine Screen,Urine Not Detected (NotDetected); Tricyclic Antidepressant,Urine Not Detected (NotDetected); Urn Cannabinoid Scrn Not Detected (NotDetected)
[2025-03-21] MEDS: SODIUM CHLORIDE 0.9% 500 ML 500 ML IV ONE (17:38)
[2025-03-21] MEDS: SODIUM CHLORIDE 0.9% 1,000 ML IV STA (17:43)
--- NOTE | 2025-03-21 18:18 | P.HPIM ---
History of Present Illness H&P Date: 03/21/25 Patient is a 65-year-old male with CKD stage III, atrial fibrillation anticoagulated on Eliquis, xsf-wobynts-gqpjbikxl diabetes mellitus, alcohol use disorder, depression presenting with suicidal ideation. 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 He has known history of alcohol use disorder and would drink 1/5 of [place] daily. Last drink was this morning. Admits to suicidal ideation due to his chronic illnesses but has no plan and doing so outside of drinking himself to . Sister states this is not the first time this has happened to him. Does not follow-up with psychiatrist or therapist. Denies any drug use or nicotine u se. Admits to urinary retention. Says he has not gone in the past couple days. Patient denies any fever, chills, chest pain, shortness of breath, abdominal pain, nausea, vomiting. EKG independent interpreted displaying sinus rhythm, right bundle branch block, rate 76 bpm, QTc 474 CXR independently interpreted displaying cardiomegaly Troponin 0.021, proBNP 1900 potassium 5.7, BUN 45, creatinine 3.9, CO2 6, anion gap 22, calcium 7.3, WBC 7.23, Hgb 10.2, MCV 94.7 T 98.8 F, DC 80, RR 18, BP 84/59, O2 saturation 97% on room air ED documentation reviewed. Review of systems: Pertinent positives and negatives as discussed in HPI, a complete review of systems was performed and all other systems are negative. Physical examination: Vital signs reviewed General: non toxic, no distress, appears at stated age, Jo catheter in place Derm: no unusual rashes/lesions, warm Head: atraumatic, normocephalic, symmetric Eyes: EOMI, anicteric sclera, pupils equal round reactive to light ENT: Nose and ears atraumatic Neck: No cervical lymphadenopathy, trachea midline, supple Mouth: no lip lesion, mucus membranes moist Cardiovascular: S1S2 reg, no murmur, positive dorsalis pedis pulse bilateral, no edema Lungs: CTA bilateral, no rhonchi, no rales, no accessory muscle use Abdominal: soft, nontender to palpation, no guarding Ext: muscle strength 5 out of 5 in all 4 extremities grossly, no gross muscle atrophy Neuro: CN II-XI grossly intact, no gross focal neuro deficits Psych: Alert, oriented to person, place, and time Assessment/Plan: Patient is a 65-year-old male with CKD stage III, atrial fibrillation, koa-aqbqipx-ztinllhpl diabetes mellitus, alcohol use disorder, depression presenting with suicidal ideation in the setting of acute alcohol intoxication. #. Acute alcohol intoxication #. Hyperkalemia #. Mixed anion gap metabolic acidosis #. Oliguric ASHA CKD stage IIIb Serum alcohol 261, BUN 45, creatinine 3.90 UA displaying large leukocyte esterase, urine RBC >182, negative urine ketones, trace urine protein Bicarb deficit 718.5, 200 mg regular IV bicarbwas given by ED, currently on bicarb drip at 100 cc an hour Jo catheter in place Ativan per CIWA protocol Thiamine 100 mg p.o. daily Calcium gluconate 1 g IVPB, insulin regular 10 units IV once, Lokelma 10 g p.o. once given by ED for hyperkalemia Monitor for hypoglycemia Monitor for seizure Cardiac telemetry Renal ultrasound ordered C. difficile ordered for complaint of diarrhea Nephrology consulted #. Depression Admits to suicidal ideation by drinking himself to , denies homicidal ideation Resumed fluoxetine 60 mg p.o. daily Psychiatry consulted #. Normocytic anemia No signs of acute bleeding Continue ferrous sulfate 325 mg p.o. daily At baseline hemoglobin, likely from chronic disease Continue to monitor CBC #. Wme-xkxzhpx-mmfajiwon diabetes mellitus Insulin sliding scale SQ Accu-Cheks ACHS Monitor for hypoglycemia #. Hypocalcemia Resume calcitriol 0.25 mcg p.o. daily Chronic: #. BPH: Continue with Flomax 0.4 mg p.o. daily #. Hypothyroidism: Levothyroxine 125 mcg p.o. daily #. Paroxysmal atrial fibrillation: Eliquis 2.5 mg p.o. twice daily, metoprolol 50 mg p.o. daily #. GERD Protonix 40 mg p.o. daily #. Gout allopurinol 100 mg p.o. daily DVT prophylaxis: Eliquis 2.5 mg p.o. twice daily The patient is admitted with an anticipated greater than than 2 midnight stay for evaluation of suicidal ideation in the setting of acute alcohol intoxication. CODE STATUS: Full code Discussed with: Patient Anticipated discharge place: Pending clinical course Brianna Gil MD PGY-1 IM Dictation was produced using dragon dictation software. please excuse any grammatical, word or spelling errors. I have seen and evaluated the patient today. Discussed with the resident and agree with the residents finding and plan as documented in the resident's note. Changes highlighted in blue font. Past Medical History Past Medical History: Atrial Fibrillation, Blood Disorder, Diabetes Mellitus, Deep Vein Thrombosis (DVT), Renal Disease, Sleep Apnea/CPAP/BIPAP, Thyroid Disorder Additional Past Medical History / Comment(s): no CPAP/BIPAP. buerger's disease. DVT left leg 2021. hx diabetes - resolved after weight loss in 2000; stage 3 kidney disease. History of Any Multi-Drug Resistant Organisms: None Reported Past Surgical History: Bariatric Surgery, Cholecystectomy, Hernia Repair, Orthopedic Surgery Additional Past Surgical History / Comment(s): gastric bypass; Umbilical hernia, 6x hernia surgeries, fell & broke right hip in 2018 while in [facility] & had surg with pin- states right leg is 1 inch and 3/4 shorter than left leg. Past Anesthesia/Blood Transfusion Reactions: No Reported Reaction Additional Past Anesthesia/Blood Transfusion Reaction / Comment(s): hx blood transfusions, last one in 2022, no problems Past Psychological History: Depression Smoking Status: Never smoker Past Alcohol Use History: None Reported Past Drug Use History: None Reported - Past Family History Father Family Medical History: Cancer Mother Family Medical History: Cancer Medications and Allergies Home Medications Medication Instructions Recorded Confirmed Type Ferrous Sulfate [Feosol] 325 mg PO DAILY 08/29/24 03/21/25 History Folic Acid 1 mg PO DAILY 08/29/24 03/21/25 History Levothyroxine Sodium 125 mcg PO DAILY 08/29/24 03/21/25 History Tamsulosin [Flomax] 0.4 mg PO DAILY 08/29/24 03/21/25 History allopurinoL 100 mg PO DAILY 08/29/24 03/21/25 History calcitrioL 0.25 mcg PO DAILY 08/29/24 03/21/25 History Apixaban [Eliquis] 2.5 mg PO BID 01/23/25 03/21/25 History Cyanocobalamin (Vitamin B-12) 1,000 mcg PO DAILY 01/23/25 03/21/25 History [Vitamin B-12] Dapagliflozin Propanediol [Farxiga] 10 mg PO DAILY 01/23/25 03/21/25 History Melatonin 5 mg PO HS PRN tab 02/01/25 03/21/25 Rx Thiamine [Vitamin B-1] 100 mg PO DAILY tab 02/01/25 03/21/25 Rx Darbepoetin Epifanio [Aranesp] 40 mcg SQ Q7D #4 each 03/05/25 03/21/25 Rx Metoprolol Tartrate [Lopressor] 25 mg PO BID #60 tab 03/05/25 03/21/25 Rx Pantoprazole Sodium [Protonix] 40 mg PO DAILY #60 tab 03/05/25 03/21/25 Rx FLUoxetine HCL [Sarafem] 60 mg PO DAILY 03/21/25 03/21/25 History Multivitamins, Thera [Multivitamin 1 tab PO DAILY 03/21/25 03/21/25 History (formulary)] hydrOXYzine HCL [Atarax] 25 - 50 mg PO HS 03/21/25 03/21/25 History Allergies Allergy/AdvReac Type Severity Reaction Status Date / Time No Known Allergies Allergy Verified 03/21/25 16:26 Physical Exam Vitals: Vital Signs Temp Pulse Resp BP Pulse Ox 03/21/25 15:36 74 18 90/58 99 03/21/25 14:34 87/52 03/21/25 11:44 98.8 F 80 18 84/59 97 Intake and Output 03/21/25 03/21/25 03/21/25 06:59 14:59 22:59 Other: Weight 99.79 kg Results CBC & Chem 7: 03/21/25 14:32 03/21/25 14:32 Labs: Abnormal Lab Results - Last 24 Hours (Table) 03/21/25 03/21/25 Range/Units 14:32 14:32 RBC 3.38 L (4.40-5.60) 10*6/uL Hgb 10.2 L (13.0-17.0) g/dL Hct 32.0 L (39.6-50.0) % MCHC 31.9 L (32.0-37.0) g/dL Eosinophils # 0.00 L (0.04-0.35) 10*3/uL Sodium 134 L (137-145) mmol/L Potassium 5.7 H (3.5-5.1) mmol/L Carbon Dioxide 6 L* (22-30) mmol/L BUN 45 H (9-20) mg/dL Creatinine 3.90 H (0.66-1.25) mg/dL Calcium 7.3 L (8.4-10.2) mg/dL Alkaline Phosphatase 163 H (38-126) U/L Total Protein 5.4 L (6.3-8.2) g/dL Albumin 3.0 L (3.5-5.0) g/dL Serum Alcohol 261 H* mg/dL
[2025-03-21] MEDS: THIAMINE 100 MG TAB PO SCH (18:21)
[2025-03-21] MEDS: DEXTROSE 5% IN WATER 1,000 ML with SODIUM BICARB (1 MEQ/ML) 150 ML IV ONE (18:21)
[2025-03-21 18:24] LABS: Glucose,Whole Blood 105 mg/dL (70-110)
--- NOTE | 2025-03-21 19:46 | US ---
EXAMINATION TYPE: US kidneys/renal and bladder DATE OF EXAM: 03/21/2025 COMPARISON: 02/27/2025 CLINICAL INDICATION: Male, 65 years old with history of asha on ckd; ASHA, CKD TECHNIQUE: Grayscale imaging of the bilateral kidneys and urinary bladder: FINDINGS: EXAM MEASUREMENTS: Right Kidney: approx 9.0 x 6.0 x 5.1cm cm Left Kidney: 9.8 x 5.2 x 4.6cm cm limited due to patient unable to change positions or take breaths for imaging Right Kidney: "sweat sign" seen, wnl as best seen Left Kidney: "sweat sign" seen. anechoic areas seen within the collecting system/ renal pelvis Bladder: catheter, unable to visualize bladder Bilateral Jets seen: no IMPRESSION: No evidence for obstructive uropathy. Nonvisualization the urinary bladder due to Jo catheter decompression. [facility], , 03/21/2025 7:43 PM
[2025-03-21 21:27] LABS: Glucose,Whole Blood 135 mg/dL (70-110)
[2025-03-21] MEDS: MELATONIN 5 MG TABLET PO PRN (21:45)
[2025-03-21] MEDS: METOPROLOL TARTRATE 25 MG TAB PO SCH (21:45)
[2025-03-21] MEDS: INSULIN LISPRO (HumaLOG) 100 UNIT/ML 10 mL VL SQ SCH (21:45)
[2025-03-21] MEDS: APIXABAN 2.5 MG TABLET PO SCH (21:45)
[2025-03-22] MEDS ORDERED: HEPARIN SODIUM,PORCINE 5,000 UNIT/ML 1 ML VIAL SQ SCH
[2025-03-22] MEDS ORDERED: LORazepam 1 MG/0.5 ML VIAL IV PRN ×3 (00:03→00:04)
[2025-03-22 05:55] LABS: Glucose,Whole Blood 126 mg/dL (70-110)
[2025-03-22] MEDS: DEXTROSE 5% IN WATER 1,000 ML with SODIUM BICARB (1 MEQ/ML) 150 ML IV SCH (06:37)
[2025-03-22] MEDS: LEVOTHYROXINE 125 MCG TAB PO SCH (06:37)
[2025-03-22 06:42] LABS: Basophils # (A) 0.04 10*3/uL (0.00-0.10); Basophils % (A) 0.6 %; Eosinophils # (A) 0.15 10*3/uL (0.04-0.35); Eosinophils % (A) 2.3 %; HCT 26.9 % (39.6-50.0); HGB 8.8 g/dL (13.0-17.0); Lymphocytes # (A) 1.92 10*3/uL (0.90-5.00); Lymphocytes % (A) 29.4 %; MCH 29.9 pg (27.0-32.0); MCHC 32.7 g/dL (32.0-37.0); MCV 91.5 fL (80.0-97.0); Mean Platelet Volume 10.6 fL (9.5-12.2); Monocytes # (A) 0.72 10*3/uL (0.20-1.00); Neutrophils # (A) 3.68 10*3/uL (1.80-7.70); Neutrophils % (A) 56.4 %; Platelet Count 243 10*3/uL (140-440); RBC 2.94 10*6/uL (4.40-5.60); RDW 15.9 % (11.5-14.5); WBC 6.53 10*3/uL (4.50-10.00)
[2025-03-22 07:15] LABS: ALT 12 U/L (4-49); AST 34 U/L (17-59); African American GFR (CKD) 24 (>60 ml/min/1.73 sqM); Albumin 2.6 g/dL (3.5-5.0); Alkaline Phosphatase 146 U/L (38-126); Anion Gap 9 mmol/L; Blood Urea Nitrogen 43 mg/dL (9-20); Calcium 7.2 mg/dL (8.4-10.2); Carbon Dioxide 24 mmol/L (22-30); Chloride 98 mmol/L (98-107); Glucose 104 mg/dL (74-99); Magnesium 1.5 mg/dL (1.6-2.3); Non-African American GFR(CKD) 20 (>60 ml/min/1.73 sqM); Phosphorus 3.5 mg/dL (2.5-4.5); Potassium 4.2 mmol/L (3.5-5.1); Sodium 131 mmol/L (137-145); Total Bilirubin 0.6 mg/dL (0.2-1.3); Total Protein 4.8 g/dL (6.3-8.2)
[2025-03-22] MEDS: TAMSULOSIN 0.4 MG CAP.ER.24H PO SCH (08:04)
[2025-03-22] MEDS: MAGNESIUM SULFATE-D5W PMX 1 GM in DEXTROSE/WATER 1 100ML.BAG IVPB SCH (08:04)
[2025-03-22] MEDS: FLUoxetine HCL 20 MG CAP PO SCH (08:04)
[2025-03-22] MEDS: MULTIVITAMINS, THERA 1 EACH TAB PO SCH (08:04)
[2025-03-22] MEDS: PANTOPRAZOLE 40 MG/10 ML VIAL IV SCH (08:05)
[2025-03-22] MEDS: FERROUS SULFATE 325 MG TAB PO SCH (08:05)
[2025-03-22] MEDS: CYANOCOBALAMIN 500 MCG TAB PO SCH (08:05)
[2025-03-22] MEDS: allopurinoL 100 MG TAB PO SCH (08:05)
[2025-03-22] MEDS: FOLIC ACID 1 MG TAB PO SCH (08:05)
[2025-03-22] MEDS ORDERED: PANTOPRAZOLE 40 MG TABLET PO SCH (09:00)
--- NOTE | 2025-03-22 11:13 | P.NPCON ---
History of Present Illness - Reason for Consult acute renal failure, chronic renal failure - History of Present Illness Reason for consultation: Acute kidney injury on chronic kidney disease History of present illness: Patient is a 65-year-old male seen in renal consultation for acute kidney injury on chronic kidney disease. Patient has chronic kidney disease stage IIIb with baseline creatinine 1.5-1.7 from January 2025 and also going back to December 2022 and August 2024. Creatinine this admission was 3.9 and is 3.05 today. Patient states he does not know why he was brought to the hospital. Patient states for the last 3 days he has not eaten much. States he was drinking a pint of liquor and was recently drinking 1/5. Patient states he had just given up on life but states that he was not necessarily trying to harm himself. Patient was noted to be acidotic with a bicarb level of 6 and has been receiving bicarb drip. Acidosis is resolved. Renal function is improving. Patient states he does have history of diabetes. Denies history of coronary artery disease. Denies regular use of nonsteroidals. Vital signs are stable. General: No acute distress. HEENT: Head exam is unremarkable. LUNGS: No audible rhonchi or wheezes. HEART: Rate and Rhythm are regular. ABDOMEN: Nontender. EXTREMITITES: No edema. Past Medical History Past Medical History: Atrial Fibrillation, Blood Disorder, Diabetes Mellitus, Deep Vein Thrombosis (DVT), Renal Disease, Sleep Apnea/CPAP/BIPAP, Thyroid Disorder Additional Past Medical History / Comment(s): no CPAP/BIPAP. buerger's disease. DVT left leg 2021. hx diabetes - resolved after weight loss in 2000; stage 3 kidney disease. History of Any Multi-Drug Resistant Organisms: None Reported Past Surgical History: Bariatric Surgery, Cholecystectomy, Hernia Repair, Orthopedic Surgery Additional Past Surgical History / Comment(s): gastric bypass; Umbilical hernia, 6x hernia surgeries, fell & broke right hip in 2019 while in [place] & had surg with pin- states right leg is 1 inch and 3/4 shorter than left leg. Past Anesthesia/Blood Transfusion Reactions: No Reported Reaction Additional Past Anesthesia/Blood Transfusion Reaction / Comment(s): hx blood transfusions, last one in 2022, no problems Past Psychological History: Depression Smoking Status: Never smoker Past Alcohol Use History: None Reported Past Drug Use History: None Reported - Past Family History Father Family Medical History: Cancer Mother Family Medical History: Cancer Medications and Allergies Home Medications Medication Instructions Recorded Confirmed Type Ferrous Sulfate [Feosol] 325 mg PO DAILY 08/29/24 03/21/25 History Folic Acid 1 mg PO DAILY 08/29/24 03/21/25 History Levothyroxine Sodium 125 mcg PO DAILY 08/29/24 03/21/25 History Tamsulosin [Flomax] 0.4 mg PO DAILY 08/29/24 03/21/25 History allopurinoL 100 mg PO DAILY 08/29/24 03/21/25 History calcitrioL 0.25 mcg PO DAILY 08/29/24 03/21/25 History Apixaban [Eliquis] 2.5 mg PO BID 01/23/25 03/21/25 History Cyanocobalamin (Vitamin B-12) 1,000 mcg PO DAILY 01/23/25 03/21/25 History [Vitamin B-12] Dapagliflozin Propanediol [Farxiga] 10 mg PO DAILY 01/23/25 03/21/25 History Melatonin 5 mg PO HS PRN tab 02/01/25 03/21/25 Rx Thiamine [Vitamin B-1] 100 mg PO DAILY tab 02/01/25 03/21/25 Rx Darbepoetin Epifanio [Aranesp] 40 mcg SQ Q7D #4 each 03/05/25 03/21/25 Rx Metoprolol Tartrate [Lopressor] 25 mg PO BID #60 tab 03/05/25 03/21/25 Rx Pantoprazole Sodium [Protonix] 40 mg PO DAILY #60 tab 03/05/25 03/21/25 Rx FLUoxetine HCL [Sarafem] 60 mg PO DAILY 03/21/25 03/21/25 History Multivitamins, Thera [Multivitamin 1 tab PO DAILY 03/21/25 03/21/25 History (formulary)] hydrOXYzine HCL [Atarax] 25 - 50 mg PO HS 03/21/25 03/21/25 History Allergies Allergy/AdvReac Type Severity Reaction Status Date / Time No Known Allergies Allergy Verified 03/21/25 16:26 Physical Exam Vitals: Vital Signs Temp Pulse Pulse Pulse Resp BP BP 03/22/25 08:00 97.8 F 71 16 108/70 03/22/25 04:00 98.3 F 60 16 121/73 03/22/25 02:00 72 17 03/22/25 00:00 98.7 F 74 16 107/64 03/21/25 22:21 93 17 03/21/25 21:46 98.6 F 93 16 126/73 03/21/25 20:32 98.1 F 78 16 03/21/25 19:21 98.2 F 77 18 114/71 03/21/25 18:23 97.9 F 82 18 111/76 03/21/25 17:18 80 18 107/65 03/21/25 15:36 74 18 90/58 03/21/25 14:34 87/52 03/21/25 11:44 98.8 F 80 18 84/59 Pulse Ox 03/22/25 08:00 97 03/22/25 04:00 97 03/22/25 02:00 03/22/25 00:00 94 L 03/21/25 22:21 03/21/25 21:46 95 03/21/25 20:32 96 03/21/25 19:21 03/21/25 18:23 95 03/21/25 17:18 03/21/25 15:36 99 03/21/25 14:34 03/21/25 11:44 97 Intake and Output 03/21/25 03/22/25 03/22/25 22:59 06:59 14:59 Intake Total 490 240 Output Total 700 700 Balance -700 -210 240 Intake: IV 10 Invasive Line 2 10 Oral 480 240 Output: Urine 700 700 Uretheral (Jo) 700 Other: Voiding Method Indwelling Catheter Indwelling Catheter Indwelling Catheter # Bowel Movements 1 Weight 99.79 kg 99.5 kg Results - Lab Results Most recent lab results Calcium 7.2 mg/dL (8.4-10.2) L 03/22/25 05:46 Phosphorus 3.5 mg/dL (2.5-4.5) 03/22/25 05:46 Magnesium 1.5 mg/dL (1.6-2.3) L 03/22/25 05:46 03/22/25 05:54 03/22/25 05:46 Assessment and Plan Plan: Assessment: 1. Acute kidney injury secondary to ATN secondary to hypovolemia. Creatinine 3.9 on admission and is 3.05 today. No hydronephrosis noted on kidney ultrasound. 2. Metabolic acidosis secondary to acute kidney injury, GI losses. Improved with bicarb drip. 3. Alcohol abuse. 4. Chronic kidney disease stage IIIb with baseline creatinine 1.5-1.7 secondary to nephrosclerosis. 5. Hypomagnesemia from GI losses and alcohol abuse. Plan: Stop bicarb drip. Start LR at 75 cc an hour. Replace magnesium. Avoid nephrotoxins. Repeat labs in the morning. Thank you for the consultation. I will continue to follow the patient with you during his hospital stay.
[2025-03-22] MEDS ORDERED: MAGNESIUM SULFATE-D5W PMX 1 GM in DEXTROSE/WATER 1 100ML.BAG IVPB SCH (11:15)
[2025-03-22 12:13] LABS: Glucose,Whole Blood 154 mg/dL (70-110)
[2025-03-22] MEDS: LACTATED RINGERS 1,000 ML IV SCH (12:32)
--- NOTE | 2025-03-22 13:09 | P.PN ---
Subjective Progress Note Date: 03/22/25 Hospital Course: Patient is a 65-year-old male with CKD stage III, atrial fibrillation anticoagulated on Eliquis, abr-qjdntap-ystyfsvxl diabetes mellitus, alcohol use disorder, depression presenting with suicidal ideation. 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 He has known history of alcohol use disorder and would drink 1/5 of [place] daily. Last drink was this morning. Admits to suicidal ideation due to his chronic illnesses but has no plan and doing so outside of drinking himself to . Sister states this is not the first time this has happened to him. Does not follow-up with psychiatrist or therapist. Denies any drug use or nicotine use. Admits to urinary retention. Says he has not gone in the past couple days. Patient denies any fever, chills, chest pain, shortness of breath, abdominal pain, nausea, vomiting. EKG independent interpreted displaying sinus rhythm, right bundle branch block, rate 76 bpm, QTc 474 CXR independently interpreted displaying cardiomegaly Troponin 0.021, proBNP 1900 potassium 5.7, BUN 45, creatinine 3.9, CO2 6, anion gap 22, calcium 7.3, WBC 7.23, Hgb 10.2, MCV 94.7 T 98.8 F, FL 80, RR 18, BP 84/59, O2 saturation 97% on room air Subjective: Patient seen and examined at bedside. Patient states he had multiple episodes of diarrhea last night. Was unable to sleep. No other complaints at this moment. Pertinent positives and negatives as discussed above, a complete review of systems was performed and all other systems are negative. Vitals: Signs Reviewed Physical Exam: General: nontoxic, no distress, appears at stated age, Jo catheter in place Derm: warm, dry, intact Head: atraumatic, normocephalic, symmetric Eyes: EOMI, anicteric sclera Mouth: no lip lesion, mucus membranes moist Cardiovascular: S1 S2 reg, no murmur, rubs, or gallops Lungs: CTA bilateral, no rhonchi, no rales, no accessory muscle use Abdominal: soft, non-tender to palpataion, no appreciable organomegaly Extremities: no gross muscle atrophy, no edema, no contractures Neuro: Alert, Oriented, CNII-XII grossly intact, gait normal Psych: well appearing, appropriate affect Data Received Today: Pertinent Labs: CO2 24, anion gap 9, BUN 43, creatinine 3.05, sodium 131, calcium 7.2, magnesium 1.5, Hgb 8.8, MCV 91.5 C. diff negative Imaging: Abdominal/bladder ultrasound displaying no evidence of obstructive uropathy, nonvisualization of the urinary bladder due to Jo catheter decompression Assessment and Plan: Patient is a 65-year-old male with CKD stage III, atrial fibrillation, exd-iixuqjo-fgdsnfytw diabetes mellitus, alcohol use disorder, depression presenting with suicidal ideation in the setting of acute alcohol intoxication. #. Acute alcohol intoxication #. Oliguric ASHA CKD stage IIIb #. Metabolic acidosis, resolved #. Hyperkalemia, resolved Serum alcohol 261, BUN 45, creatinine 3.90 on admission, baseline creatinine 1.51.7 UA displaying large leukocyte esterase, urine RBC >182, negative urine ketones, trace urine protein Bicarb deficit 718.5, 200 mg regular Bicarb drip has been discontinued and started on LR at 75 cc an hour Ativan per CIWA protocol Thiamine 100 mg p.o. daily Calcium gluconate 1 g IVPB, insulin regular 10 units IV once, Lokelma 10 g p.o. once given by ED for hyperkalemia Monitor for hypoglycemia Monitor for seizure Cardiac telemetry Renal ultrasound displaying no evidence of obstructive uropathy C. difficile negative Nephrology note reviewed, discontinue bicarb drip, LR at 75 cc an hour #. Acute diarrhea #. Hypomagnesia likely secondary to above Reported multiple episodes of diarrhea C. difficile negative Mg 1.5 2 g IV magnesium sulfate replacement Follow-up mag #. Depression Admits to suicidal ideation by drinking himself to , denies homicidal ideation Resumed fluoxetine 60 mg p.o. daily Psychiatry consulted #. Normocytic anemia No signs of acute bleeding Continue ferrous sulfate 325 mg p.o. daily At baseline hemoglobin, likely from chronic disease Continue to monitor CBC #. Pch-pdqoddv-wquecfptf diabetes mellitus Insulin sliding scale SQ Accu-Cheks ACHS Monitor for hypoglycemia #. Hypocalcemia Resume calcitriol 0.25 mcg p.o. daily Chronic: #. BPH: Continue with Flomax 0.4 mg p.o. daily #. Hypothyroidism: Levothyroxine 125 mcg p.o. daily #. Paroxysmal atrial fibrillation: Eliquis 2.5 mg p.o. twice daily, metoprolol 50 mg p.o. daily #. GERD Protonix 40 mg p.o. daily #. Gout allopurinol 100 mg p.o. daily Resolved: Hyperkalemia Mixed anion gap metabolic acidosis DVT prophylaxis: Eliquis 2.5 mg p.o. twice daily Code status: Full code Anticipated discharge place: Pending clinical course Anticipated discharge time: Pending clinical course Brianna Gil MD PGY-1 IM Dictation was produced using [employer] dictation software. please excuse any grammatical, word or spelling errors. I have seen and evaluated the patient today. Discussed with the resident and agree with the residents finding and plan as documented in the resident's note. Changes highlighted in blue font. Objective - Vital Signs Vital signs: Vital Signs Temp 98.3 F 03/22/25 04:00 Pulse 60 03/22/25 04:00 Resp 16 03/22/25 04:00 BP 121/73 03/22/25 04:00 Pulse Ox 97 03/22/25 04:00 FiO2 Intake & Output 03/21/25 03/22/25 03/22/25 18:59 06:59 18:59 Intake Total 490 Output Total 700 700 Balance -700 -210 Weight 99.79 kg 99.5 kg Intake: IV 10 Invasive Line 2 10 Oral 480 Output: Urine 700 700 Uretheral (Jo) 700 Other: Voiding Method Indwelling Catheter # Bowel Movements 1 - Labs CBC & Chem 7: 03/22/25 05:54 03/22/25 05:46 Labs: Abnormal Lab Results - Last 24 Hours (Table) 03/21/25 03/21/25 03/21/25 Range/Units 14:32 14:32 14:32 RBC 3.38 L (4.40-5.60) 10*6/uL Hgb 10.2 L (13.0-17.0) g/dL Hct 32.0 L (39.6-50.0) % MCHC 31.9 L (32.0-37.0) g/dL Eosinophils # 0.00 L (0.04-0.35) 10*3/uL Sodium 134 L (137-145) mmol/L Potassium 5.7 H (3.5-5.1) mmol/L Carbon Dioxide 6 L* (22-30) mmol/L BUN 45 H (9-20) mg/dL Creatinine 3.90 H (0.66-1.25) mg/dL Glucose (74-99) mg/dL POC Glucose (mg/dL) (70-110) mg/dL Calcium 7.3 L (8.4-10.2) mg/dL Magnesium (1.6-2.3) mg/dL Alkaline Phosphatase 163 H (38-126) U/L Total Protein 5.4 L (6.3-8.2) g/dL Albumin 3.0 L (3.5-5.0) g/dL Urine Protein Trace H (Negative) Urine Blood Small H (Negative) Ur Leukocyte Esterase Large H (Negative) Urine RBC 18 H (0-5) /hpf Urine WBC >182 H (0-5) /hpf Urine WBC Clumps Many H (None) /hpf Urine Mucus Rare H (None) /hpf Urine Yeast (Budding) Moderate H (None) /hpf Serum Alcohol 261 H* mg/dL 03/21/25 03/22/25 03/22/25 Range/Units 21:26 05:46 05:50 RBC (4.40-5.60) 10*6/uL Hgb (13.0-17.0) g/dL Hct (39.6-50.0) % MCHC (32.0-37.0) g/dL Eosinophils # (0.04-0.35) 10*3/uL Sodium 131 L (137-145) mmol/L Potassium (3.5-5.1) mmol/L Carbon Dioxide (22-30) mmol/L BUN 43 H (9-20) mg/dL Creatinine 3.05 H (0.66-1.25) mg/dL Glucose 104 H (74-99) mg/dL POC Glucose (mg/dL) 135 H 126 H (70-110) mg/dL Calcium 7.2 L (8.4-10.2) mg/dL Magnesium 1.5 L (1.6-2.3) mg/dL Alkaline Phosphatase 146 H (38-126) U/L Total Protein 4.8 L (6.3-8.2) g/dL Albumin 2.6 L (3.5-5.0) g/dL Urine Protein (Negative) Urine Blood (Negative) Ur Leukocyte Esterase (Negative) Urine RBC (0-5) /hpf Urine WBC (0-5) /hpf Urine WBC Clumps (None) /hpf Urine Mucus (None) /hpf Urine Yeast (Budding) (None) /hpf Serum Alcohol mg/dL 03/22/25 Range/Units 05:54 RBC 2.94 L (4.40-5.60) 10*6/uL Hgb 8.8 L (13.0-17.0) g/dL Hct 26.9 L (39.6-50.0) % MCHC (32.0-37.0) g/dL Eosinophils # (0.04-0.35) 10*3/uL Sodium (137-145) mmol/L Potassium (3.5-5.1) mmol/L Carbon Dioxide (22-30) mmol/L BUN (9-20) mg/dL Creatinine (0.66-1.25) mg/dL Glucose (74-99) mg/dL POC Glucose (mg/dL) (70-110) mg/dL Calcium (8.4-10.2) mg/dL Magnesium (1.6-2.3) mg/dL Alkaline Phosphatase (38-126) U/L Total Protein (6.3-8.2) g/dL Albumin (3.5-5.0) g/dL Urine Protein (Negative) Urine Blood (Negative) Ur Leukocyte Esterase (Negative) Urine RBC (0-5) /hpf Urine WBC (0-5) /hpf Urine WBC Clumps (None) /hpf Urine Mucus (None) /hpf Urine Yeast (Budding) (None) /hpf Serum Alcohol mg/dL
--- NOTE | 2025-03-22 14:40 | P.CN ---
Psychiatric Consult - . Consult date: 03/22/25 Consult:: 03/22/25 13:30 IDENTIFYING DATA: This patient is a 65-year-old male, he is he has no kids he lives alone in apartment collect Social Security and assisted REASON FOR REFERRAL: Psychiatry was consulted for "SI" HISTORY OF PRESENT ILLNESS: The patient presented to the hospital initially on 03/21 for depression and suicidal ideations has a chronic history of several comorbidities including DVTs, diabetes mellitus and A-fib. Apparently patient's sister called EMS concerned about patient's condition at home and that he has been drinking more and not taking care of himself. Patient's blood alcohol level was 261, urine drug screen is negative on admission. Nurse taking care of patient states that patient has been more cheerful today and interactive, claims that he is not suicidal to her and appeared to be more future oriented. Very mild withdrawal symptoms at this time reported by nurse. Patient was seen at the bedside agreeable to speak. He was alert oriented x 3. Claims that he does have a labor training manager coming into his house 7 days a week which she is grateful for. Claims that he has been mainly just feeling "bored" and has been drinking. States that he has a long history of drinking states that he has been about 1/5 of whiskey a day. This has been off or going on for the past 6 or 7 years. Claims that he has never had any major withdrawal issues from alcohol denies any DTs or seizures, not reporting any seizure tremors at this time. Claims that his sister has been concerned about him drinking. Claims that he does have mild depression and mild anxiety at this time. He does report a willingness to want to stay sober. He does not interested in rehab at this time. Is interested in anticraving medications. Claims that his sleep is broken about 5 or 6 hours a night, claims that his appetite is poor.. At this time patient denies any suicidal or homical ideations, intent or plan. Patient denies any auditory, visual hallucinations and denies any paranoia or delusions. Patients admits to using alcohol as noted above denies any other recreational drug use PAST PSYCHIATRIC HISTORY: Patient has a a history of alcohol use disorder, depression/anxiety. Patient is currently on Prozac 60 mg daily for mood/anxiety. Patient claims that he was last psychiatrically admitted and lancing to a psychiatric unit 2 months ago. Patient denies any psychiatric outpatient follow-up. Patient denies any history of suicide attempts in the past. He reports no access to guns or weapons. Past Medical History: Atrial Fibrillation, Blood Disorder, Diabetes Mellitus, Deep Vein Thrombosis (DVT), Renal Disease, Sleep Apnea/CPAP/BIPAP, Thyroid Disorder Additional Past Medical History / Comment(s): no CPAP/BIPAP. buerger's disease. DVT left leg 2021. hx diabetes - resolved after weight loss in 2000; stage 3 kidney disease. History of Any Multi-Drug Resistant Organisms: None Reported Past Surgical History: Bariatric Surgery, Cholecystectomy, Hernia Repair, Orthopedic Surgery Additional Past Surgical History / Comment(s): gastric bypass; Umbilical hernia, 6x hernia surgeries, fell & broke right hip in 2018 while in [place] & had surg with pin- states right leg is 1 inch and 3/4 shorter than left leg. Past Anesthesia/Blood Transfusion Reactions: No Reported Reaction Additional Past Anesthesia/Blood Transfusion Reaction / Comment(s): hx blood transfusions, last one in 2022, no problems Past Psychological History: Depression Smoking Status: Never smoker Past Alcohol Use History: None Reported Past Drug Use History: None Reported ALLERGIES: as per EMR. CHEMICAL DEPENDENCY HISTORY: as per HPI. FAMILY PSYCHIATRIC/SUBSTANCE USE HISTORY: Denies SOCIAL HISTORY: Patient was born and raised in [place]. Claims that he completed high school did his bachelor's degree. 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 States that he had previous legal issues for a DUI in 2007. He is single , denies having any kids lives alone in apartment collect Social Security and assisted. MENTAL STATUS EXAM: General Appearance: Patient appears to be tall, thin, stated age is alert, pleasant, and attempts to be cooperative. Patient appears to have fair hygiene and grooming wearing hospital gown with fair eye contact. Behavior: Patient is calmly lying in bed without any agitated behavior. Fairly pleasant and interactive Speech: Patient's speech is fluent and nonpressured. Mood/Affect: Patient reports their mood is "a bit depressed and anxious", affect is congruent Suicidality/Homicidality: Patient denies having any suicidal or homicidal ideation intent or plan. Perceptions: Patient denies any visual hallucinations and denies any auditory hallucinations Though content/process: There is no evidence of any delusional thought content and thought process is linear and goal-directed. Fairly future oriented. Memory and concentration: AOX3, grossly intact for the purposes of this session. Can spell "WORLD" backwards Judgment and insight: fair IMPRESSIONS: Depressive disorder unspecified Anxiety disorder unspecified Alcohol use disorder PLAN: -At this time patient DOES NOT meet criteria for inpatient psychiatric admission. -Would recommend the following medication changes/additions: Increase Prozac to 80 mg daily for mood/anxiety, Remeron 15 mg nightly for sleep/mood/appetite, naltrexone 50 mg p.o. daily for alcohol cravings. -CIWA protocol with PRN Ativan for alcohol withdrawal. Continue to monitor vital signs. -Can discontinue 1:1 sitter at this time as patient is not currently an imminent threat to themselves -warehouse worker to provide patient with outpatient mental health/psychiatry resources for appropriate follow up upon discharge] -Parliamentary Archivist spoke with patient about substance abuse and the harmful effects on medical and mental health, patient verbally understood and agreed. -warehouse worker to provide patient substance use treatment resources including AA/NA meetings in the community. -warehouse worker to provide patient with access line number to call for inpatient substance rehab -Communicated plan to patient's nurse -Psychiatry will sign off at this time -Please contact with any questions. 03/22/25 14:35
[2025-03-22] MEDS: NALTREXONE HCL 50 MG TAB PO SCH (16:09)
[2025-03-22 16:28] LABS: Glucose,Whole Blood 109 mg/dL (70-110)
[2025-03-22 20:34] LABS: Glucose,Whole Blood 151 mg/dL (70-110)
[2025-03-22] MEDS: MIRTAZAPINE 15 MG TAB PO SCH (20:48)
[2025-03-23 05:53] LABS: Glucose,Whole Blood 110 mg/dL (70-110)
[2025-03-23 07:10] LABS: Basophils # (A) 0.02 10*3/uL (0.00-0.10); Basophils % (A) 0.4 %; Eosinophils # (A) 0.05 10*3/uL (0.04-0.35); HCT 26.2 % (39.6-50.0); HGB 8.5 g/dL (13.0-17.0); Lymphocytes # (A) 2.06 10*3/uL (0.90-5.00); Lymphocytes % (A) 42.8 %; MCH 30.1 pg (27.0-32.0); MCHC 32.4 g/dL (32.0-37.0); MCV 92.9 fL (80.0-97.0); Mean Platelet Volume 10.5 fL (9.5-12.2); Monocytes # (A) 0.41 10*3/uL (0.20-1.00); Monocytes % (A) 8.5 %; Neutrophils # (A) 2.25 10*3/uL (1.80-7.70); Neutrophils % (A) 46.9 %; Platelet Count 192 10*3/uL (140-440); RBC 2.82 10*6/uL (4.40-5.60); RDW 15.8 % (11.5-14.5); WBC 4.81 10*3/uL (4.50-10.00)
[2025-03-23 07:27] LABS: African American GFR (CKD) 33 (>60 ml/min/1.73 sqM); Anion Gap 7 mmol/L; Blood Urea Nitrogen 37 mg/dL (9-20); Calcium 7.8 mg/dL (8.4-10.2); Carbon Dioxide 25 mmol/L (22-30); Chloride 99 mmol/L (98-107); Glucose 78 mg/dL (74-99); Magnesium 1.7 mg/dL (1.6-2.3); Non-African American GFR(CKD) 29 (>60 ml/min/1.73 sqM); Potassium 3.6 mmol/L (3.5-5.1); Sodium 131 mmol/L (137-145)
[2025-03-23] MEDS: FLUoxetine HCL 20 MG CAP PO SCH (08:11)
--- NOTE | 2025-03-23 11:14 | P.PN ---
Subjective Patient is seen in follow-up for acute kidney injury on chronic kidney disease. Renal function improving. Has Jo catheter. Nonoliguric. No active complaints. Vital signs are stable. General: No acute distress. HEENT: Head exam is unremarkable. LUNGS: No audible rhonchi or wheezes. HEART: Rate and Rhythm are regular. Cut the ABDOMEN: Nontender. EXTREMITITES: No edema. Objective - Vital Signs Vital signs: Vital Signs Temp 97.9 F 03/23/25 07:40 Pulse 84 03/23/25 07:40 Resp 20 03/23/25 07:40 BP 111/68 03/23/25 07:40 Pulse Ox 99 03/23/25 07:40 FiO2 Intake & Output 03/22/25 03/23/25 03/23/25 18:59 06:59 18:59 Intake Total 1210 240 240 Output Total 1000 1100 350 Balance 210 -860 -110 Weight 99.5 kg Intake: Intake, IV Titration 200 Amount Magnesium Sulfate-D5w Pmx 200 1 gm In Dextrose/Water 1 100ml.bag @ 100 mls/hr IVPB Q1H [facility] Rx#: [id number] Oral 1010 240 240 Output: Urine 1000 1100 350 Uretheral (Jo) 1000 350 Other: Voiding Method Indwelling Catheter Indwelling Catheter Indwelling Catheter # Bowel Movements 2 - Labs CBC & Chem 7: 03/23/25 06:34 03/23/25 06:54 Labs: Abnormal Lab Results - Last 24 Hours (Table) 03/22/25 03/22/25 03/23/25 Range/Units 12:12 20:33 06:34 RBC 2.82 L (4.40-5.60) 10*6/uL Hgb 8.5 L (13.0-17.0) g/dL Hct 26.2 L (39.6-50.0) % Sodium (137-145) mmol/L BUN (9-20) mg/dL Creatinine (0.66-1.25) mg/dL POC Glucose (mg/dL) 154 H 151 H (70-110) mg/dL Calcium (8.4-10.2) mg/dL 03/23/25 Range/Units 06:54 RBC (4.40-5.60) 10*6/uL Hgb (13.0-17.0) g/dL Hct (39.6-50.0) % Sodium 131 L (137-145) mmol/L BUN 37 H (9-20) mg/dL Creatinine 2.32 H (0.66-1.25) mg/dL POC Glucose (mg/dL) (70-110) mg/dL Calcium 7.8 L (8.4-10.2) mg/dL Assessment and Plan Plan: Assessment: 1. Acute kidney injury secondary to ATN secondary to hypovolemia. Creatinine 3.9 on admission and is 2.32 today. No hydronephrosis noted on kidney ultrasound. 2. Metabolic acidosis secondary to acute kidney injury, GI losses. Improved with bicarb drip. 3. Alcohol abuse. 4. Chronic kidney disease stage IIIb with baseline creatinine 1.5-1.7 secondary to nephrosclerosis. 5. Hypomagnesemia from GI losses and alcohol abuse. Replaced. Better. Plan: Encouraged oral intake. Maintain IV fluids for now. Add oral magnesium oxide. Avoid nephrotoxins. Follow-up outpatient 1 week postdischarge.
[2025-03-23 11:24] LABS: Glucose,Whole Blood 121 mg/dL (70-110)
[2025-03-23 11:35] VITALS: BP 114/76; PULSE 60; RESP 16; TEMP 97.4
[2025-03-23] MEDS: MAGNESIUM OXIDE 400 MG TAB PO SCH (11:59)
--- NOTE | 2025-03-23 12:43 | P.DS ---
Providers Date of admission: 03/21/25 17:02 Discharge Diagnosis: Acute alcohol intoxication Oliguric LINDA CKD stage IIIb Metabolic acidosis, resolved Hyperkalemia, resolved Acute diarrhea Hypomagnesia likely secondary to above Depression Mxa-djqgonh-evknriitr diabetes mellitus Hypocalcemia Hospital Course: Patient is a 65-year-old male with CKD stage III, atrial fibrillation anticoagulated on Eliquis, erb-bdnkuue-inhahmexn diabetes mellitus, alcohol use disorder, depression presenting with suicidal ideation. Per ED note patient's mix maker states that he has not been taking his medications since Wednesday. He has known history of alcohol use disorder and would drink 1/5 of [place] daily. Last drink was this morning. Admits to suicidal ideation due to his chronic illnesses but has no plan and doing so outside of drinking himself to . Sister states this is not the first time this has happened to him. Does not follow-up with psychiatrist or therapist. Denies any drug use or nicotine use. Admits to urinary retention. Says he has not gone in the past couple days. Patient denies any fever, chills, chest pain, shortness of breath, abdominal pain, nausea, vomiting. EKG independent interpreted displaying sinus rhythm, right bundle branch block, rate 76 bpm, QTc 474 CXR independently interpreted displaying cardiomegaly Troponin 0.021, proBNP 1900 potassium 5.7, BUN 45, creatinine 3.9, CO2 6, anion gap 22, calcium 7.3, WBC 7.23, Hgb 10.2, MCV 94.7 T 98.8 F, MD 80, RR 18, BP 84/59, O2 saturation 97% on room air Patient admitted for alcohol intoxication, suicidal ideation, LINDA CKD stage IIIb along with nephrology and psychiatry following. While admitted patient was given bicarb and was placed on bicarb drip due to metabolic acidosis. Acidosis resolved and patient patient's bicarb drip was discontinued for LR. Patient Tanner signs of any withdrawal symptoms while admitted. While he was here he was having multiple episodes of diarrhea and was tested for C. difficile which turned to be negative. Patient maintained on proper fluid management and electrolytes were corrected. He was seen by psychiatry regarding suicidal ideation due to his depression. Patient did not meet criteria for inpatient psychiatric admission. Medications for depression and alcohol abuse were made. Patient hemodynamically stable. He was given information/resources on the importance of alcohol cessation. He was cleared by all specialties. He is to follow-up with nephrology and his PCP. Patient can be discharged home. Patient seen and examined at bedside. Vital signs reviewed and stable. Physical examination: Vital signs reviewed General: non toxic, no distress, appears at stated age, normal weight Derm: no unusual rashes/lesions, warm Head: atraumatic, normocephalic, symmetric Eyes: EOMI, anicteric sclera, pupils equal round reactive to light ENT: Nose and ears atraumatic Neck: No cervical lymphadenopathy, trachea midline, supple Mouth: no lip lesion, mucus membranes moist Cardiovascular: S1S2 reg, no murmur, positive dorsalis pedis pulse bilateral, no edema Lungs: CTA bilateral, no rhonchi, no rales, no accessory muscle use Abdominal: soft, nontender to palpation, no guarding Ext: muscle strength 5 out of 5 in all 4 extremities grossly, no gross muscle atrophy Neuro: CN II-XI grossly intact, no gross focal neuro deficits Psych: Alert, oriented to person, place, and time A total of greater than 30 minutes of time were spent preparing this complex discharge summary. Patient was discharge on March 23, 2025 at 10:21 AM. Brianna Gil MD PGY-1 IM Dictation was produced using [employer] dictation software. please excuse any grammatical, word or spelling errors. I have seen and evaluated the patient today. Discussed with the resident and agree with the residents finding and plan as documented in the resident's note. Changes highlighted in blue font. Expected date of discharge: 03/23/25 Attending physician: Tom Charlton Consults: 03/21/25 16:56 Consult Physician Routine Consulting Provider: Patrick Daniels Consult Reason/Comments: linda on ckd Do you want consulting provider notified?: Yes 03/21/25 16:57 Consult Physician Routine Consulting Provider: Psychiatry - [facility] Psychiatry Consult Reason/Comments: suicidal Do you want consulting provider notified?: Yes Primary care physician: Stated None Patient Condition at Discharge: Serious Plan - Discharge Summary Discharge Rx Participant: Yes New Discharge Prescriptions: New Naltrexone HCl [Revia] 50 mg PO DAILY #90 tab Mirtazapine [Remeron] 15 mg PO HS #90 tab FLUoxetine HCL [PROzac] 80 mg PO DAILY #90 cap Continue Tamsulosin [Flomax] 0.4 mg PO DAILY Ferrous Sulfate [Feosol] 325 mg PO DAILY Levothyroxine Sodium 125 mcg PO DAILY Folic Acid 1 mg PO DAILY calcitrioL 0.25 mcg PO DAILY Thiamine [Vitamin B-1] 100 mg PO DAILY tab Metoprolol Tartrate [Lopressor] 25 mg PO BID #60 tab Multivitamins, Thera [Multivitamin (formulary)] 1 tab PO DAILY allopurinoL 100 mg PO DAILY Apixaban [Eliquis] 2.5 mg PO BID Cyanocobalamin (Vitamin B-12) [Vitamin B-12] 1,000 mcg PO DAILY Melatonin 5 mg PO HS PRN tab PRN Reason: Insomnia Darbepoetin Epifanio [Aranesp] 40 mcg SQ Q7D #4 each Pantoprazole Sodium [Protonix] 40 mg PO DAILY #60 tab Discontinued hydrOXYzine HCL [Atarax] 25 - 50 mg PO HS Dapagliflozin Propanediol [Farxiga] 10 mg PO DAILY FLUoxetine HCL [Sarafem] 60 mg PO DAILY Discharge Medication List Ferrous Sulfate [Feosol] 325 mg PO DAILY 08/29/24 [History] Folic Acid 1 mg PO DAILY 08/29/24 [History] Levothyroxine Sodium 125 mcg PO DAILY 08/29/24 [History] Tamsulosin [Flomax] 0.4 mg PO DAILY 08/29/24 [History] allopurinoL 100 mg PO DAILY 08/29/24 [History] calcitrioL 0.25 mcg PO DAILY 08/29/24 [History] Apixaban [Eliquis] 2.5 mg PO BID 01/23/25 [History] Cyanocobalamin (Vitamin B-12) [Vitamin B-12] 1,000 mcg PO DAILY 01/23/25 [History] Melatonin 5 mg PO HS PRN tab 02/01/25 [Rx] Thiamine [Vitamin B-1] 100 mg PO DAILY tab 02/01/25 [Rx] Darbepoetin Epifanio [Aranesp] 40 mcg SQ Q7D #4 each 03/05/25 [Rx] Metoprolol Tartrate [Lopressor] 25 mg PO BID #60 tab 03/05/25 [Rx] Pantoprazole Sodium [Protonix] 40 mg PO DAILY #60 tab 03/05/25 [Rx] Multivitamins, Thera [Multivitamin (formulary)] 1 tab PO DAILY 03/21/25 [History] FLUoxetine HCL [PROzac] 80 mg PO DAILY #90 cap 03/23/25 [Rx] Mirtazapine [Remeron] 15 mg PO HS #90 tab 03/23/25 [Rx] Naltrexone HCl [Revia] 50 mg PO DAILY #90 tab 03/23/25 [Rx] Follow up Appointment(s)/Referral(s): [facility] [NON-STAFF] - 1 Week None,Stated [Primary Care Provider] - 1-2 days Patrick Daniels DO [STAFF PHYSICIAN] - 04/27/25 9:00 am [facility] Visiting Nurse, [NON-STAFF] - 1 Week Patient Instructions/Handouts: Acute Kidney Injury (DC), Alcohol Intoxication (DC) Activity/Diet/Wound Care/Special Instructions: Please follow up with PCP and nephrology. Discharge/Stand Alone Forms: AA Margarito Li Pamphlet, Who Do I Call?, Assisted Living Facilities, Help In The Home, Outpatient Counseling, In Substance Abuse Facilities Discharge Disposition: HOME SELF-CARE
== END 2025-03-23 13:43 | disposition home or self-care (01) | DRG 896 ==
LOC: EC 11:39 → 3SCARD 17:02
PROVIDERS: ADMIT Student in an Organized Health Care Education/Training Program; ATTEND Student in an Organized Health Care Education/Training Program
DX: F10.129 Alcohol abuse with intoxication, unspecified (principal); N17.0 Acute kidney failure with tubular necrosis; E87.20 Acidosis, unspecified; R62.7 Adult failure to thrive; E83.51 Hypocalcemia; D63.1 Anemia in chronic kidney disease; E86.0 Dehydration; I48.0 Paroxysmal atrial fibrillation; N18.32 Chronic kidney disease, stage 3b; E11.22 Type 2 diabetes mellitus with diabetic chronic kidney disease; E03.9 Hypothyroidism, unspecified; F32.A Depression, unspecified; I12.9 Hypertensive chronic kidney disease with stage 1 through stage 4 chronic kidney disease, or unspecified chronic kidney disease; I73.1 Thromboangiitis obliterans [Buerger's disease]; R45.851 Suicidal ideations; E87.5 Hyperkalemia; E83.42 Hypomagnesemia; E86.1 Hypovolemia; Y90.8 Blood alcohol level of 240 mg/100 ml or more; K21.9 Gastro-esophageal reflux disease without esophagitis; M10.9 Gout, unspecified; N40.1 Benign prostatic hyperplasia with lower urinary tract symptoms; F41.9 Anxiety disorder, unspecified; I45.10 Unspecified right bundle-branch block; G47.30 Sleep apnea, unspecified; R19.7 Diarrhea, unspecified; R33.8 Other retention of urine; Z60.2 Problems related to living alone; Z91.148 Patient's other noncompliance with medication regimen for other reason; Z79.01 Long term (current) use of anticoagulants; Z79.84 Long term (current) use of oral hypoglycemic drugs; Z79.890 Hormone replacement therapy; Z79.899 Other long term (current) drug therapy; Z98.84 Bariatric surgery status
CPT/HCPCS: 36415; 51702; 51798; 71046; 76770; 80048; 80053; 80306; 80320; 81001; 83605; 83735; 83880; 84100; 84132; 84484; 85025; 85610; 85730; 87324; 93005; 96361; 96365; 96366; 96375; 96376; 99291

== ENCOUNTER 2025-05-22 09:06 | Observation (INO) | payer MEDICARE ==
[2025-05-22 09:23] LABS: Glucose,Whole Blood 65 mg/dL (70-110)
[2025-05-22] MEDS: SODIUM CHLORIDE 0.9% 500 ML 500 ML IV ONE (09:44)
[2025-05-22] MEDS: DEXTROSE 50% SYRINGE 50 ML IVP STA (09:44)
[2025-05-22 10:01] LABS: Basophils # (A) 0.01 10*3/uL (0.00-0.10); Basophils % (A) 0.1 %; HCT 36.4 % (39.6-50.0); HGB 10.9 g/dL (13.0-17.0); Lymphocytes # (A) 0.98 10*3/uL (0.90-5.00); Lymphocytes % (A) 8.8 %; MCH 30.6 pg (27.0-32.0); MCHC 29.9 g/dL (32.0-37.0); Mean Platelet Volume 9.8 fL (9.5-12.2); Monocytes # (A) 0.44 10*3/uL (0.20-1.00); Neutrophils # (A) 9.54 10*3/uL (1.80-7.70); Neutrophils % (A) 85.8 %; Platelet Count 229 10*3/uL (140-440); RBC 3.56 10*6/uL (4.40-5.60); RDW 17.3 % (11.5-14.5); WBC 11.12 10*3/uL (4.50-10.00)
--- NOTE | 2025-05-22 10:01 | ED ---
General Adult HPI - General Chief complaint: Recheck/Abnormal Lab/Rx Stated complaint: Altered mental/ Blood sugar Time Seen by Provider: 05/22/25 09:21 Source: patient, EMS, RN notes reviewed, old records reviewed Mode of arrival: EMS Limitations: no limitations - History of Present Illness Initial comments: 65-year-old male presenting with acute confusion and altered mental status. Patient blood sugar was noted to be low. He was given oral glucose and an amp of dextrose by paramedics. Upon arrival patient is alert and oriented with complaints of nausea. No chest pain. No abdominal pain. No fever. Patient does have history of diabetes. - Related Data Home Medications Medication Instructions Recorded Confirmed Ferrous Sulfate [Feosol] 325 mg PO DAILY 08/29/24 05/22/25 Folic Acid 1 mg PO DAILY 08/29/24 05/22/25 Levothyroxine Sodium 125 mcg PO DAILY 08/29/24 05/22/25 Tamsulosin [Flomax] 0.4 mg PO DAILY 08/29/24 05/22/25 allopurinoL 100 mg PO DAILY 08/29/24 05/22/25 calcitrioL 0.25 mcg PO DAILY 08/29/24 05/22/25 Apixaban [Eliquis] 2.5 mg PO BID 01/23/25 05/22/25 Cyanocobalamin (Vitamin B-12) 1,000 mcg PO DAILY 01/23/25 05/22/25 [Vitamin B-12] Multivitamins, Thera [Multivitamin 1 tab PO DAILY 03/21/25 05/22/25 (formulary)] Metoprolol Tartrate [Lopressor] 25 mg PO BID PRN 05/22/25 05/22/25 Midodrine [ProAmatine] 5 - 10 mg PO BID PRN 05/22/25 05/22/25 Previous Rx's Medication Instructions Recorded Melatonin 5 mg PO HS PRN tab 02/01/25 Thiamine [Vitamin B-1] 100 mg PO DAILY tab 02/01/25 Pantoprazole Sodium [Protonix] 40 mg PO DAILY #60 tab 03/05/25 FLUoxetine HCL [PROzac] 80 mg PO DAILY #90 cap 03/23/25 Mirtazapine [Remeron] 15 mg PO HS #90 tab 03/23/25 Naltrexone HCl [Revia] 50 mg PO DAILY #90 tab 03/23/25 Allergies Allergy/AdvReac Type Severity Reaction Status Date / Time No Known Allergies Allergy Verified 05/22/25 12:42 Review of Systems ROS Statement: Those systems with pertinent positive or pertinent negative responses have been documented in the HPI. ROS Other: All systems not noted in ROS Statement are negative. Past Medical History Past Medical History: Atrial Fibrillation, Blood Disorder, Diabetes Mellitus, Deep Vein Thrombosis (DVT), Renal Disease, Sleep Apnea/CPAP/BIPAP, Thyroid Disorder Additional Past Medical History / Comment(s): no CPAP/BIPAP. buerger's disease. DVT left leg 2021. hx diabetes - resolved after weight loss in 2000; stage 3 kidney disease. History of Any Multi-Drug Resistant Organisms: None Reported Past Surgical History: Bariatric Surgery, Cholecystectomy, Hernia Repair, Orthopedic Surgery Additional Past Surgical History / Comment(s): gastric bypass; Umbilical hernia, 6x hernia surgeries, fell & broke right hip in 2018 while in [place] & had surg with pin- states right leg is 1 inch and 3/4 shorter than left leg. Past Anesthesia/Blood Transfusion Reactions: No Reported Reaction Additional Past Anesthesia/Blood Transfusion Reaction / Comment(s): hx blood transfusions, last one in 2022, no problems Past Psychological History: Depression Smoking Status: Never smoker Past Alcohol Use History: None Reported Past Drug Use History: None Reported - Past Family History Father Family Medical History: Cancer Mother Family Medical History: Cancer General Exam Limitations: no limitations General appearance: alert, in no apparent distress Head exam: Present: atraumatic, normocephalic Eye exam: Present: normal appearance, PERRL ENT exam: Present: mucous membranes dry Neck exam: Present: normal inspection. Absent: tenderness Respiratory exam: Present: normal lung sounds bilaterally. Absent: respiratory distress, wheezes Cardiovascular Exam: Present: normal rhythm, tachycardia GI/Abdominal exam: Present: soft. Absent: distended, tenderness, guarding Extremities exam: Present: normal inspection, normal capillary refill Neurological exam: Present: alert, oriented X3, CN II-XII intact. Absent: motor sensory deficit Psychiatric exam: Present: normal affect, normal mood Skin exam: Present: warm, dry, intact Course Vital Signs 05/22/25 05/22/25 09:12 09:48 Temperature 98 F Pulse Rate 125 H 79 Respiratory 20 20 Rate Blood Pressure 92/61 102/78 O2 Sat by Pulse 96 100 Oximetry Medical Decision Making - Medical Decision Making Was pt. sent in by a medical professional or institution (ADRIANA Rasmussen, [employer], urgent care, hospital, or halfway...) When possible be specific @ -No Did you speak to anyone other than the patient for history (EMS, parent, family, police, friend...)? What history was obtained from this source @ -No Did you review nursing and triage notes (agree or disagree)? Why? @ -I reviewed and agree with nursing and triage notes Were old charts reviewed (outside hosp., previous admission, EMS record, old EKG, old radiological studies, urgent care reports/EKG's, halfway records)? Report findings @ -No old charts were reviewed Differential Altered Mental Status: Hypoglycemia, DKA, hypercapnia, ETOH, overdose, CO poisoning, trauma, myxedema coma, HTN encephalopathy, infection, encephalitis, psychosis, intercranial hemorrhage, hepatic encephalopathy, meningitis, CVA, this is not meant to be an all-inclusive list EKG interpreted by me (3pts min.). @Sinus tachycardia with right bundle branch block rate of 128, [place] interval 215, QRS duration 153, QTc [address] segment elevation. X-rays interpreted by me (1pt min.). @ -None done CT interpreted by me (1pt min.). @ -None done U/S interpreted by me (1pt. min.). @ -None done What testing was considered but not performed or refused? (CT, X-rays, U/S, labs)? Why? @ -None What meds were considered but not given or refused? Why? @ -None Did you discuss the management of the patient with other professionals (professionals i.e. ADRIANA Rasmussen, [employer], lab, RT, psych nurse, social media strategist, job captain, teacher, occupational health and safety officer, caseworker intake)? Give summary @ -[[facility], Dr. Knight Was smoking cessation discussed for >3mins.? @ -No Was critical care preformed (if so, how long)? @Yes 35 minutes Were there social determinants of health that impacted care today? How? (Homelessness, low income, unemployed, alcoholism, drug addiction, transportat ion, low edu. Level, literacy, decrease access to med. care, fpc, rehab)? @ -No Was there de-escalation of care discussed even if they declined (Discuss DNR or withdrawal of care, Hospice)? DNR status @ -No What co-morbidities impacted this encounter? (DM, HTN, Smoking, COPD, CAD, Cancer, CVA, ARF, Chemo, Hep., AIDS, mental health diagnosis, sleep apnea, morbid obesity)? @Chronic kidney disease, diabetes Was patient admitted / discharged? Hospital course, mention meds given and route, prescriptions, significant lab abnormalities, going to OR and other pertinent info. @ -[65-year-old male presenting with an episode of hypoglycemia. Patient's blood sugar had recovered and he was alert and oriented to time my evaluation without specific complaint. He had significant lab abnormalities including hyperkalemia, and a nondetectable CO2. Venous blood gas and lactic acid as well as repeat laboratory testing was obtained the patient is acidotic with metabolic acidosis secondary to uremia and lactic acidosis. He is given IV fluid and placed on a bicarb drip. He is admitted to Dr. Bueno who is aware with Dr. Knight on consult who is also aware. Undiagnosed new problem with uncertain prognosis? @ -No Drug Therapy requiring intensive monitoring for toxicity (Heparin, Nitro, Insulin, Cardizem)? @ -No Were any procedures done? @ -No Diagnosis/symptom? @ -Metabolic acidosis, hypoglycemia Acute, or Chronic, or Acute on Chronic? @ -[Acute Uncomplicated (without systemic symptoms) or Complicated (systemic symptoms)? @ -Default Side effects of treatment? @ -No Exacerbation, Progression, or Severe Exacerbation? @ -No Poses a threat to life or bodily function? How? (Chest pain, [place], [place], pneumonia, PE, COPD, DKA, ARF, appy, cholecystitis, CVA, Diverticulitis, Homicidal, Suicidal, threat to staff... and all critical care pts) @ -Yes, acidosis - Lab Data Result diagrams: 05/22/25 09:48 05/22/25 10:49 Lab Results 05/22/25 05/22/25 05/22/25 Range/Units 09:21 09:48 09:48 WBC 11.12 H (4.50-10.00) 10*3/uL RBC 3.56 L (4.40-5.60) 10*6/uL Hgb 10.9 L (13.0-17.0) g/dL Hct 36.4 L (39.6-50.0) % MCV 102.2 H D (80.0-97.0) fL MCH 30.6 (27.0-32.0) pg MCHC 29.9 L (32.0-37.0) g/dL Plt Count 229 (140-440) 10*3/uL MPV 9.8 (9.5-12.2) fL Immature Gran % (Auto) 1.3 % Neutrophils % 85.8 % Lymphocytes % 8.8 % Monocytes % 4.0 % Eosinophils % 0.0 % Basophils % 0.1 % Immature Gran # 0.15 H (0.00-0.04) 10*3/uL Neutrophils # 9.54 H (1.80-7.70) 10*3/uL Lymphocytes # 0.98 (0.90-5.00) 10*3/uL Monocytes # 0.44 (0.20-1.00) 10*3/uL Eosinophils # 0.00 L (0.04-0.35) 10*3/uL Basophils # 0.01 (0.00-0.10) 10*3/uL VBG pH (7.31-7.41) VBG pCO2 (37-51) mmHg VBG HCO3 (24-28) mmol/L Sodium 138 (137-145) mmol/L Potassium 5.6 H (3.5-5.1) mmol/L Chloride 109 H (98-107) mmol/L Carbon Dioxide <5 L* (22-30) mmol/L Anion Gap mmol/L BUN 52 H (9-20) mg/dL Creatinine 3.65 H (0.66-1.25) mg/dL Est GFR (CKD-EPI)AfAm 19 (>60 ml/min/1.73 sqM) Est GFR (CKD-EPI)NonAf 16 (>60 ml/min/1.73 sqM) Glucose 128 H (74-99) mg/dL POC Glucose (mg/dL) 65 L (70-110) mg/dL POC Glu Health Science Instructor ID [facility] Plasma Lactic Acid Kip (0.7-2.0) mmol/L Calcium 7.1 L (8.4-10.2) mg/dL Magnesium (1.6-2.3) mg/dL Total Bilirubin 0.4 (0.2-1.3) mg/dL AST 32 (17-59) U/L ALT 10 (4-49) U/L Alkaline Phosphatase 119 (38-126) U/L Total Protein 5.3 L (6.3-8.2) g/dL Albumin 2.9 L (3.5-5.0) g/dL 05/22/25 05/22/25 05/22/25 Range/Units 10:26 10:49 10:49 WBC (4.50-10.00) 10*3/uL RBC (4.40-5.60) 10*6/uL Hgb (13.0-17.0) g/dL Hct (39.6-50.0) % MCV (80.0-97.0) fL MCH (27.0-32.0) pg MCHC (32.0-37.0) g/dL Plt Count (140-440) 10*3/uL MPV (9.5-12.2) fL Immature Gran % (Auto) % Neutrophils % % Lymphocytes % % Monocytes % % Eosinophils % % Basophils % % Immature Gran # (0.00-0.04) 10*3/uL Neutrophils # (1.80-7.70) 10*3/uL Lymphocytes # (0.90-5.00) 10*3/uL Monocytes # (0.20-1.00) 10*3/uL Eosinophils # (0.04-0.35) 10*3/uL Basophils # (0.00-0.10) 10*3/uL VBG pH (7.31-7.41) VBG pCO2 (37-51) mmHg VBG HCO3 (24-28) mmol/L Sodium 137 (137-145) mmol/L Potassium 6.1 H* (3.5-5.1) mmol/L Chloride 109 H (98-107) mmol/L Carbon Dioxide <5 L* (22-30) mmol/L Anion Gap mmol/L BUN 50 H (9-20) mg/dL Creatinine 3.70 H (0.66-1.25) mg/dL Est GFR (CKD-EPI)AfAm 19 (>60 ml/min/1.73 sqM) Est GFR (CKD-EPI)NonAf 16 (>60 ml/min/1.73 sqM) Glucose 217 H (74-99) mg/dL POC Glucose (mg/dL) 179 H (70-110) mg/dL POC Glu Health Science Instructor ID Kristen Carson Plasma Lactic Acid Kip 5.4 H* (0.7-2.0) mmol/L Calcium 7.0 L (8.4-10.2) mg/dL Magnesium 1.5 L (1.6-2.3) mg/dL Total Bilirubin (0.2-1.3) mg/dL AST (17-59) U/L ALT (4-49) U/L Alkaline Phosphatase (38-126) U/L Total Protein (6.3-8.2) g/dL Albumin (3.5-5.0) g/dL 05/22/25 05/22/25 Range/Units 10:49 12:36 WBC (4.50-10.00) 10*3/uL RBC (4.40-5.60) 10*6/uL Hgb (13.0-17.0) g/dL Hct (39.6-50.0) % MCV (80.0-97.0) fL MCH (27.0-32.0) pg MCHC (32.0-37.0) g/dL Plt Count (140-440) 10*3/uL MPV (9.5-12.2) fL Immature Gran % (Auto) % Neutrophils % % Lymphocytes % % Monocytes % % Eosinophils % % Basophils % % Immature Gran # (0.00-0.04) 10*3/uL Neutrophils # (1.80-7.70) 10*3/uL Lymphocytes # (0.90-5.00) 10*3/uL Monocytes # (0.20-1.00) 10*3/uL Eosinophils # (0.04-0.35) 10*3/uL Basophils # (0.00-0.10) 10*3/uL VBG pH 7.01 L* (7.31-7.41) VBG pCO2 30 L (37-51) mmHg VBG HCO3 8 L* (24-28) mmol/L Sodium (137-145) mmol/L Potassium (3.5-5.1) mmol/L Chloride (98-107) mmol/L Carbon Dioxide (22-30) mmol/L Anion Gap mmol/L BUN (9-20) mg/dL Creatinine (0.66-1.25) mg/dL Est GFR (CKD-EPI)AfAm (>60 ml/min/1.73 sqM) Est GFR (CKD-EPI)NonAf (>60 ml/min/1.73 sqM) Glucose (74-99) mg/dL POC Glucose (mg/dL) 153 H (70-110) mg/dL POC Glu Health Science Instructor ID Julian Leyva Plasma Lactic Acid Kip (0.7-2.0) mmol/L Calcium (8.4-10.2) mg/dL Magnesium (1.6-2.3) mg/dL Total Bilirubin (0.2-1.3) mg/dL AST (17-59) U/L ALT (4-49) U/L Alkaline Phosphatase (38-126) U/L Total Protein (6.3-8.2) g/dL Albumin (3.5-5.0) g/dL Critical Care Time Critical Care Time: Yes Total Critical Care Time: 35 Disposition Clinical Impression: Acute kidney injury superimposed on CKD, Metabolic acidosis, Lactic acidosis Disposition: ADMITTED IP TO THIS HOSP Condition: Stable Is patient prescribed a controlled substance at d/c from ED?: No Referrals: None,Stated [Primary Care Provider] - 1-2 days Time of Disposition: 13:02
[2025-05-22 10:14] LABS: ALT 10 U/L (4-49); AST 32 U/L (17-59); African American GFR (CKD) 19 (>60 ml/min/1.73 sqM); Albumin 2.9 g/dL (3.5-5.0); Alkaline Phosphatase 119 U/L (38-126); Blood Urea Nitrogen 52 mg/dL (9-20); Calcium 7.1 mg/dL (8.4-10.2); Chloride 109 mmol/L (98-107); Glucose 128 mg/dL (74-99); MCV 102.2 fL (80.0-97.0); Non-African American GFR(CKD) 16 (>60 ml/min/1.73 sqM); Potassium 5.6 mmol/L (3.5-5.1); Sodium 138 mmol/L (137-145); Total Bilirubin 0.4 mg/dL (0.2-1.3); Total Protein 5.3 g/dL (6.3-8.2)
[2025-05-22 10:24] LABS: Carbon Dioxide <5 mmol/L (22-30)
[2025-05-22 10:30] LABS: Glucose,Whole Blood 179 mg/dL (70-110)
[2025-05-22 11:01] LABS: VBG PH 7.01 (7.31-7.41)
[2025-05-22 11:18] LABS: African American GFR (CKD) 19 (>60 ml/min/1.73 sqM); Blood Urea Nitrogen 50 mg/dL (9-20); Chloride 109 mmol/L (98-107); Glucose 217 mg/dL (74-99); Magnesium 1.5 mg/dL (1.6-2.3); Non-African American GFR(CKD) 16 (>60 ml/min/1.73 sqM); Sodium 137 mmol/L (137-145)
[2025-05-22 11:28] LABS: Carbon Dioxide <5 mmol/L (22-30)
[2025-05-22 11:29] LABS: Potassium 6.1 mmol/L (3.5-5.1)
[2025-05-22] MEDS: SODIUM CHLORIDE 0.9% 1,000 ML IV SCH (11:48)
[2025-05-22] MEDS ORDERED: NALOXONE 0.4 MG/ML 1 ML VIAL IV PRN (12:35)
[2025-05-22 12:37] LABS: Glucose,Whole Blood 153 mg/dL (70-110)
[2025-05-22] MEDS: CALCIUM GLUCONATE IN NACL 1 GM in SALINE 1 100ML.BAG IVPB ONE (12:39)
[2025-05-22] MEDS: MAGNESIUM SULFATE-D5W PMX 1 GM in DEXTROSE/WATER 1 100ML.BAG IVPB ONE (12:39)
[2025-05-22] MEDS: SODIUM CHLORIDE 0.9% 1,000 ML IV ONE (12:41)
[2025-05-22] MEDS ORDERED: MELATONIN 5 MG TABLET PO PRN (12:55)
[2025-05-22] MEDS ORDERED: MIDODRINE 5 MG TAB PO PRN (12:55)
[2025-05-22] MEDS: SODIUM ZIRCONIUM CYCLOSILICATE 10 GM PACKET PO ONE (13:21)
[2025-05-22] MEDS: DEXTROSE 5% IN WATER 1,000 ML with SODIUM BICARB (1 MEQ/ML) 150 ML IV ONE (13:22)
[2025-05-22] MEDS: APIXABAN 2.5 MG TABLET PO SCH (20:17)
[2025-05-22] MEDS: MIRTAZAPINE 15 MG TAB PO SCH (20:17)
--- NOTE | 2025-05-22 21:59 | P.HPIM ---
History of Present Illness This is a pleasant 65 years old male with past medical history of multiple medical problems including chronic kidney disease stage IV Presents because of altered mental status found to be hypoglycemic at home sugar was 37, this was resolved with correction of hypoglycemia Patient states that he has decreased urine output for about 36 hours He looks confused earlier but now mentation back to normal He denies any abdominal pain or vomiting or diarrhea. No chest pain dyspnea or coughing. No neurological symptoms He uses a walker to ambulate. But has been complaining from exertional dizziness Denies smoking or illicit drugs but he drinks liquor about 12 ounce every day or most of the week. Patient and family deny history of diabetes or being on diabetes medication Patient with no fever, blood pressure was slightly on the low side currently more stable. Potassium was elevated 6.1, repeat potassium 5.2, creatinine 3.7 with baseline 2.5-3.0. WBC 11.1 hemoglobin 10.9 (1.5 pH 7.01. EKG showing sinus tachycardia at [address]-T changes Review of Systems Review of systems CONSTITUTIONAL: No fever, no malaise, no fatigue. HEENT: No recent visual problems or hearing problems. Denied any sore throat. CARDIOVASCULAR: No orthopnea, PND, no palpitations, no syncope. PULMONARY: No shortness of breath, no cough, no hemoptysis. GASTROINTESTINAL: No diarrhea, no nausea, no vomiting, no abdominal pain. Normoactive bowel sounds. NEUROLOGICAL: No headaches, no weakness, no numbness. HEMATOLOGICAL: Denies any bleeding or petechiae. GENITOURINARY: Denies any burning micturition, frequency, or urgency. MUSCULOSKELETAL/RHEUMATOLOGICAL: Denies any joint pain, swelling, or any muscle pain. ENDOCRINE: Denies any polyuria or polydipsia. Past Medical History Past Medical History: Atrial Fibrillation, Blood Disorder, Diabetes Mellitus, Deep Vein Thrombosis (DVT), Renal Disease, Sleep Apnea/CPAP/BIPAP, Thyroid Disorder Additional Past Medical History / Comment(s): no CPAP/BIPAP. buerger's disease. DVT left leg 2021. hx diabetes - resolved after weight loss in 2000; stage 3 kidney disease. History of Any Multi-Drug Resistant Organisms: None Reported Past Surgical History: Bariatric Surgery, Cholecystectomy, Hernia Repair, Orthopedic Surgery Additional Past Surgical History / Comment(s): gastric bypass; Umbilical hernia, 6x hernia surgeries, fell & broke right hip in 2019 while in [place] & had surg with pin- states right leg is 1 inch and 3/4 shorter than left leg. Past Anesthesia/Blood Transfusion Reactions: No Reported Reaction Additional Past Anesthesia/Blood Transfusion Reaction / Comment(s): hx blood transfusions, last one in 2022, no problems Past Psychological History: Depression Smoking Status: Never smoker Past Alcohol Use History: None Reported Past Drug Use History: None Reported - Past Family History Father Family Medical History: Cancer Mother Family Medical History: Cancer Medications and Allergies Home Medications Medication Instructions Recorded Confirmed Type Ferrous Sulfate [Feosol] 325 mg PO DAILY 08/29/24 05/22/25 History Folic Acid 1 mg PO DAILY 08/29/24 05/22/25 History Levothyroxine Sodium 125 mcg PO DAILY 08/29/24 05/22/25 History Tamsulosin [Flomax] 0.4 mg PO DAILY 08/29/24 05/22/25 History allopurinoL 100 mg PO DAILY 08/29/24 05/22/25 History calcitrioL 0.25 mcg PO DAILY 08/29/24 05/22/25 History Apixaban [Eliquis] 2.5 mg PO BID 01/23/25 05/22/25 History Cyanocobalamin (Vitamin B-12) 1,000 mcg PO DAILY 01/23/25 05/22/25 History [Vitamin B-12] Melatonin 5 mg PO HS PRN tab 02/01/25 05/22/25 Rx Thiamine [Vitamin B-1] 100 mg PO DAILY tab 02/01/25 05/22/25 Rx Pantoprazole Sodium [Protonix] 40 mg PO DAILY #60 tab 03/05/25 05/22/25 Rx Multivitamins, Thera [Multivitamin 1 tab PO DAILY 03/21/25 05/22/25 History (formulary)] FLUoxetine HCL [PROzac] 80 mg PO DAILY #90 cap 03/23/25 05/22/25 Rx Mirtazapine [Remeron] 15 mg PO HS #90 tab 03/23/25 05/22/25 Rx Naltrexone HCl [Revia] 50 mg PO DAILY #90 tab 03/23/25 05/22/25 Rx Metoprolol Tartrate [Lopressor] 25 mg PO BID PRN 05/22/25 05/22/25 History Midodrine [ProAmatine] 5 - 10 mg PO BID PRN 05/22/25 05/22/25 History Allergies Allergy/AdvReac Type Severity Reaction Status Date / Time No Known Allergies Allergy Verified 05/22/25 12:42 Physical Exam Vitals: Vital Signs Temp Pulse Resp BP Pulse Ox 05/22/25 17:00 72 20 120/63 96 05/22/25 13:30 69 16 110/68 98 05/22/25 12:30 71 16 113/63 99 05/22/25 09:48 79 20 102/78 100 05/22/25 09:12 98 F 125 H 20 92/61 96 Intake and Output 05/22/25 05/22/25 05/22/25 06:59 14:59 22:59 Other: Weight 99.79 kg GENERAL: The patient is alert and oriented x3, not in any acute distress. Well developed, well nourished. HEENT: Pupils are round and equally reacting to light. EOMI. No scleral icterus. No conjunctival pallor. Normocephalic, atraumatic. No pharyngeal erythema. No thyromegaly. CARDIOVASCULAR: S1 and S2 present. No murmurs, rubs, or gallops. PULMONARY: Chest is clear to auscultation, no wheezing , no crackles. ABDOMEN: Soft, nontender, nondistended, normoactive bowel sounds. No palpable organomegaly. MUSCULOSKELETAL: No joint swelling or deformity. EXTREMITIES: No cyanosis, clubbing, or pedal edema. NEUROLOGICAL: Gross neurological examination did not reveal any focal deficits. SKIN: No rashes. no petechiae. Results CBC & Chem 7: 05/22/25 09:48 05/22/25 15:51 Labs: Abnormal Lab Results - Last 24 Hours (Table) 05/22/25 05/22/25 05/22/25 Range/Units 09:21 09:48 09:48 WBC 11.12 H (4.50-10.00) 10*3/uL RBC 3.56 L (4.40-5.60) 10*6/uL Hgb 10.9 L (13.0-17.0) g/dL Hct 36.4 L (39.6-50.0) % MCV 102.2 H D (80.0-97.0) fL MCHC 29.9 L (32.0-37.0) g/dL Immature Gran # 0.15 H (0.00-0.04) 10*3/uL Neutrophils # 9.54 H (1.80-7.70) 10*3/uL Eosinophils # 0.00 L (0.04-0.35) 10*3/uL VBG pH (7.31-7.41) VBG pCO2 (37-51) mmHg VBG HCO3 (24-28) mmol/L Potassium 5.6 H (3.5-5.1) mmol/L Chloride 109 H (98-107) mmol/L Carbon Dioxide <5 L* (22-30) mmol/L BUN 52 H (9-20) mg/dL Creatinine 3.65 H (0.66-1.25) mg/dL Glucose 128 H (74-99) mg/dL POC Glucose (mg/dL) 65 L (70-110) mg/dL Plasma Lactic Acid Kip (0.7-2.0) mmol/L Calcium 7.1 L (8.4-10.2) mg/dL Magnesium (1.6-2.3) mg/dL Total Protein 5.3 L (6.3-8.2) g/dL Albumin 2.9 L (3.5-5.0) g/dL 05/22/25 05/22/25 05/22/25 Range/Units 10:26 10:49 10:49 WBC (4.50-10.00) 10*3/uL RBC (4.40-5.60) 10*6/uL Hgb (13.0-17.0) g/dL Hct (39.6-50.0) % MCV (80.0-97.0) fL MCHC (32.0-37.0) g/dL Immature Gran # (0.00-0.04) 10*3/uL Neutrophils # (1.80-7.70) 10*3/uL Eosinophils # (0.04-0.35) 10*3/uL VBG pH (7.31-7.41) VBG pCO2 (37-51) mmHg VBG HCO3 (24-28) mmol/L Potassium 6.1 H* (3.5-5.1) mmol/L Chloride 109 H (98-107) mmol/L Carbon Dioxide <5 L* (22-30) mmol/L BUN 50 H (9-20) mg/dL Creatinine 3.70 H (0.66-1.25) mg/dL Glucose 217 H (74-99) mg/dL POC Glucose (mg/dL) 179 H (70-110) mg/dL Plasma Lactic Acid Kip 5.4 H* (0.7-2.0) mmol/L Calcium 7.0 L (8.4-10.2) mg/dL Magnesium 1.5 L (1.6-2.3) mg/dL Total Protein (6.3-8.2) g/dL Albumin (3.5-5.0) g/dL 05/22/25 05/22/25 05/22/25 Range/Units 10:49 12:36 15:51 WBC (4.50-10.00) 10*3/uL RBC (4.40-5.60) 10*6/uL Hgb (13.0-17.0) g/dL Hct (39.6-50.0) % MCV (80.0-97.0) fL MCHC (32.0-37.0) g/dL Immature Gran # (0.00-0.04) 10*3/uL Neutrophils # (1.80-7.70) 10*3/uL Eosinophils # (0.04-0.35) 10*3/uL VBG pH 7.01 L* (7.31-7.41) VBG pCO2 30 L (37-51) mmHg VBG HCO3 8 L* (24-28) mmol/L Potassium 5.2 H (3.5-5.1) mmol/L Chloride (98-107) mmol/L Carbon Dioxide (22-30) mmol/L BUN (9-20) mg/dL Creatinine (0.66-1.25) mg/dL Glucose (74-99) mg/dL POC Glucose (mg/dL) 153 H (70-110) mg/dL Plasma Lactic Acid Kip (0.7-2.0) mmol/L Calcium (8.4-10.2) mg/dL Magnesium (1.6-2.3) mg/dL Total Protein (6.3-8.2) g/dL Albumin (3.5-5.0) g/dL 05/22/25 Range/Units 15:51 WBC (4.50-10.00) 10*3/uL RBC (4.40-5.60) 10*6/uL Hgb (13.0-17.0) g/dL Hct (39.6-50.0) % MCV (80.0-97.0) fL MCHC (32.0-37.0) g/dL Immature Gran # (0.00-0.04) 10*3/uL Neutrophils # (1.80-7.70) 10*3/uL Eosinophils # (0.04-0.35) 10*3/uL VBG pH (7.31-7.41) VBG pCO2 (37-51) mmHg VBG HCO3 (24-28) mmol/L Potassium (3.5-5.1) mmol/L Chloride (98-107) mmol/L Carbon Dioxide (22-30) mmol/L BUN (9-20) mg/dL Creatinine (0.66-1.25) mg/dL Glucose (74-99) mg/dL POC Glucose (mg/dL) (70-110) mg/dL Plasma Lactic Acid Kip 2.8 H* (0.7-2.0) mmol/L Calcium (8.4-10.2) mg/dL Magnesium (1.6-2.3) mg/dL Total Protein (6.3-8.2) g/dL Albumin (3.5-5.0) g/dL Assessment and Plan Assessment: Metabolic encephalopathy secondary to hypoglycemia improved Acute kidney injury on CKD stage IV with hyperkalemia improved Metabolic acidosis Alcohol use disorder at risk of withdrawal Atrial fibrillation on Eliquis History of DVT Diabetes mellitus Hypertension Hyperlipidemia Hypothyroidism Plan: Patient was started on sodium bicarb drip at 75 mL/h Continue Eliquis Nephrology team consult Check urine analysis and bladder scan Nutritional consult Labs and medication were reviewed.. Continue same treatment. Continue with symptomatic treatment. Resume home medication. Monitor labs and vitals. DVT and GI prophylaxis. Further recommendations as per clinical course of the patient DVT prophylaxis: Eliquis GI Prophylaxis: Protonix PT/OT: Pending Prognosis is guarded
[2025-05-23] MEDS: DEXTROSE 5% IN WATER 1,000 ML with SODIUM BICARB (1 MEQ/ML) 150 ML IV SCH (02:31)
[2025-05-23 06:18] LABS: Appearance,Urine Clear (Clear); Bacteria,Urine Rare /hpf; Bilirubin,Urine Negative (Negative); Blood,Urine Small (Negative); Budding Yeast,Urine Occasional /hpf; Color,Urine Colorless; Glucose,Urine (UA) Negative (Negative); Ketones,Urine 1+ (Negative); Leukocyte Esterase,Urine Moderate (Negative); Mucus,Urine Rare /hpf; Nitrite,Urine Negative (Negative); PH, Urine 5.5 (5.0-8.0); Protein,Urine Trace (Negative); RBC,Urine 5 /hpf (0-5); Specific Gravity,Urine 1.012 (1.001-1.035); Urobilinogen,Urine <2.0 mg/dL (<2.0); WBC,Urine 33 /hpf (0-5)
[2025-05-23 06:40] LABS: Glucose,Whole Blood 66 mg/dL (70-110)
[2025-05-23 07:01] LABS: Glucose,Whole Blood 61 mg/dL (70-110)
[2025-05-23 07:06] LABS: Basophils # (A) 0.04 10*3/uL (0.00-0.10); Basophils % (A) 0.6 %; Eosinophils # (A) 0.03 10*3/uL (0.04-0.35); Eosinophils % (A) 0.5 %; HCT 27.7 % (39.6-50.0); Lymphocytes # (A) 3.01 10*3/uL (0.90-5.00); Lymphocytes % (A) 46.7 %; MCH 29.9 pg (27.0-32.0); MCHC 31.8 g/dL (32.0-37.0); Mean Platelet Volume 9.4 fL (9.5-12.2); Monocytes # (A) 0.46 10*3/uL (0.20-1.00); Monocytes % (A) 7.1 %; Neutrophils # (A) 2.88 10*3/uL (1.80-7.70); Neutrophils % (A) 44.8 %; Platelet Count 178 10*3/uL (140-440); RBC 2.94 10*6/uL (4.40-5.60); RDW 16.6 % (11.5-14.5); WBC 6.44 10*3/uL (4.50-10.00)
[2025-05-23 07:08] LABS: HGB 8.8 g/dL (13.0-17.0); MCV 94.2 fL (80.0-97.0)
[2025-05-23] MEDS: LEVOTHYROXINE 125 MCG TAB PO SCH (07:22)
[2025-05-23 07:23] LABS: Glucose,Whole Blood 86 mg/dL (70-110)
[2025-05-23 07:30] LABS: African American GFR (CKD) 20 (>60 ml/min/1.73 sqM); Anion Gap 9 mmol/L; Blood Urea Nitrogen 53 mg/dL (9-20); Calcium 7.1 mg/dL (8.4-10.2); Carbon Dioxide 15 mmol/L (22-30); Chloride 110 mmol/L (98-107); Glucose 72 mg/dL (74-99); Non-African American GFR(CKD) 18 (>60 ml/min/1.73 sqM); Potassium 4.6 mmol/L (3.5-5.1); Sodium 134 mmol/L (137-145)
[2025-05-23] MEDS: THIAMINE 100 MG TAB PO SCH (08:58)
[2025-05-23] MEDS: FLUoxetine HCL 20 MG CAP PO SCH (08:59)
[2025-05-23] MEDS: PANTOPRAZOLE 40 MG TABLET PO SCH (08:59)
[2025-05-23] MEDS: TAMSULOSIN 0.4 MG CAP.ER.24H PO SCH (08:59)
[2025-05-23] MEDS: allopurinoL 100 MG TAB PO SCH (09:00)
--- NOTE | 2025-05-23 13:25 | P.NPCON ---
History of Present Illness - Reason for Consult acute renal failure - History of Present Illness Patient is a 65-year-old male with history of chronic kidney diseasestage IV with baseline creatinine around 1.7-2.3 mg/dL. He is admitted to the hospital with mental status changes. Patient was noted to have significant hypoglycemia with blood sugar at 37. Mentation seems to have improved. Serum creatinine was 3.6 on admission and decreased to 3.4 today. Patient states that he has not voided for about 1-2 days now. Patient was recently hospitalized on 03/21/2025 for acute alcohol intoxication, hyperkalemia and diarrhea. He had acute kidney injury with peak serum creatinine at 5.7 mg/dL and improved to 2.3 on 03/23/2025 upon discharge. Blood pressure was low with systolic in the 90s. Maintained on IV fluids. Patient was also acidotic and he is currently maintained on bicarb drip. Good urine output noted with external catheter. Bladder scan showed 101-150 ML. potassium was elevated at 6.1 and now decreased to 5.2. Past Medical History Past Medical History: Atrial Fibrillation, Blood Disorder, Diabetes Mellitus, Deep Vein Thrombosis (DVT), Renal Disease, Sleep Apnea/CPAP/BIPAP, Thyroid Disorder Additional Past Medical History / Comment(s): no CPAP/BIPAP. buerger's disease. DVT left leg 2021. hx diabetes - resolved after weight loss in 2000; stage 3 kidney disease. History of Any Multi-Drug Resistant Organisms: None Reported Past Surgical History: Bariatric Surgery, Cholecystectomy, Hernia Repair, Orthopedic Surgery Additional Past Surgical History / Comment(s): gastric bypass; Umbilical hernia, 6x hernia surgeries, fell & broke right hip in 2019 while in [place] & had surg with pin- states right leg is 1 inch and 3/4 shorter than left leg. Past Anesthesia/Blood Transfusion Reactions: No Reported Reaction Additional Past Anesthesia/Blood Transfusion Reaction / Comment(s): hx blood t ransfusions, last one in 2022, no problems Past Psychological History: Depression Smoking Status: Never smoker Past Alcohol Use History: None Reported Past Drug Use History: None Reported - Past Family History Father Family Medical History: Cancer Mother Family Medical History: Cancer Medications and Allergies Home Medications Medication Instructions Recorded Confirmed Type Ferrous Sulfate [Feosol] 325 mg PO DAILY 08/29/24 05/22/25 History Folic Acid 1 mg PO DAILY 08/29/24 05/22/25 History Levothyroxine Sodium 125 mcg PO DAILY 08/29/24 05/22/25 History Tamsulosin [Flomax] 0.4 mg PO DAILY 08/29/24 05/22/25 History allopurinoL 100 mg PO DAILY 08/29/24 05/22/25 History calcitrioL 0.25 mcg PO DAILY 08/29/24 05/22/25 History Apixaban [Eliquis] 2.5 mg PO BID 01/23/25 05/22/25 History Cyanocobalamin (Vitamin B-12) 1,000 mcg PO DAILY 01/23/25 05/22/25 History [Vitamin B-12] Melatonin 5 mg PO HS PRN tab 02/01/25 05/22/25 Rx Thiamine [Vitamin B-1] 100 mg PO DAILY tab 02/01/25 05/22/25 Rx Pantoprazole Sodium [Protonix] 40 mg PO DAILY #60 tab 03/05/25 05/22/25 Rx Multivitamins, Thera [Multivitamin 1 tab PO DAILY 03/21/25 05/22/25 History (formulary)] FLUoxetine HCL [PROzac] 80 mg PO DAILY #90 cap 03/23/25 05/22/25 Rx Mirtazapine [Remeron] 15 mg PO HS #90 tab 03/23/25 05/22/25 Rx Naltrexone HCl [Revia] 50 mg PO DAILY #90 tab 03/23/25 05/22/25 Rx Metoprolol Tartrate [Lopressor] 25 mg PO BID PRN 05/22/25 05/22/25 History Midodrine [ProAmatine] 5 - 10 mg PO BID PRN 05/22/25 05/22/25 History Allergies Allergy/AdvReac Type Severity Reaction Status Date / Time No Known Allergies Allergy Verified 05/22/25 12:42 Physical Exam Vitals: Vital Signs Temp Pulse Resp BP Pulse Ox 05/23/25 09:08 65 18 100/72 93 L 05/23/25 07:23 97.8 F 73 18 120/68 99 05/23/25 05:14 97.8 F 64 16 101/63 95 05/23/25 02:24 62 16 115/62 95 05/22/25 21:52 72 16 113/64 98 05/22/25 17:00 72 20 120/63 96 05/22/25 13:30 69 16 110/68 98 Intake and Output 05/22/25 05/23/25 05/23/25 22:59 06:59 14:59 Output Total 18 Balance -18 Output: Post Void Residual 18 patient is awake, comfortable, no acute distress. Examination of the heart S1 and S2 Examination the lungs decreased breath sounds at the bases Abdomen is soft nontender Examination of lower extremities shows edema 1+ bilaterallywith chronic skin changes TEST LEAD APPLICATION TESTING exam shows patient is able to move all 4 extremities Results - Lab Results Most recent lab results Calcium 7.1 mg/dL (8.4-10.2) L 05/23/25 06: Magnesium 1.5 mg/dL (1.6-2.3) L 05/22/25 10:49 05/23/25 06:26 05/23/25 06:26 Assessment and Plan Assessment: 1. Acute kidney injury, ATN, nonoliguric. No evidence of urine retention. Renal function slightly improved. Maintained on IV fluids. 2. Non-gap metabolic acidosis associated with acute kidney injury, improving with IV bicarb. Possible alcohol intoxication as patient was previously admitted with alcohol intoxication in February 2025. Alcohol level not available 3. Chronic kidney disease stage IV with baseline creatinin 1.7-2 mg/dL, seconda ry to nephrosclerosis 4. Secondary hyperparathyroidism maintained on calcitriol. Serum calcium 7.1 5. Anemia of chronic disease with no active bleeding noted. Hemoglobin at 8.8 g/dL. Rule out iron deficiency 6. Hyperkalemia associated with acute kidney injury and severe metabolic acidosis Plan: continue with bicarb drip Repeat labs in a.m. Accurate I's and O's Continue to avoid nephrotoxic agents Continue calcitriol Repeat labs in a.m. Continue midodrine Thank you for the consultation. We will continue to follow the patient with you during his hospitalization.
[2025-05-23 13:29] LABS: Glucose,Whole Blood 141 mg/dL (70-110)
[2025-05-23 17:16] LABS: Glucose,Whole Blood 127 mg/dL (70-110)
[2025-05-23 21:03] LABS: Glucose,Whole Blood 132 mg/dL (70-110)
--- NOTE | 2025-05-24 00:20 | P.PN ---
Subjective This is a pleasant 65 years old male with past medical history of multiple medical problems including chronic kidney disease stage IV Presents because of altered mental status found to be hypoglycemic at home sugar was 37, this was resolved with correction of hypoglycemia Patient states that he has decreased urine output for about 36 hours He looks confused earlier but now mentation back to normal He denies any abdominal pain or vomiting or diarrhea. No chest pain dyspnea or coughing. No neurological symptoms He uses a walker to ambulate. But has been complaining from exertional dizziness Denies smoking or illicit drugs but he drinks liquor about 12 ounce every day or most of the week. Patient and family deny history of diabetes or being on diabetes medication Patient with no fever, blood pressure was slightly on the low side currently more stable. Potassium was elevated 6.1, repeat potassium 5.2, creatinine 3.7 with baseline 2.5-3.0. WBC 11.1 hemoglobin 10.9 (1.5 pH 7.01. EKG showing sinus tachycardia at [address]-T changes 05/23 Patient hypoglycemia is improving Clinically he feels better and close to his baseline. Patient feels he can go back home whenever he is ready We started him on glucose gel but he started eating and his hypoglycemia corrected Also creatinine improved 3.7 down to 3.4 with baseline 2.3-3.0. Patient kept on bicarb drip Hemoglobin dropped to 8.8 which is baseline most likely secondary to hemodilution, leukocytosis also improved. Possible discharge 24 further once improved and cleared by consultants I talked to the patient about quit drinking alcohol, does not look patient willing to stop now Objective - Vital Signs Vital signs: Vital Signs Temp 97.8 F 05/23/25 07:23 Pulse 89 05/23/25 13:38 Resp 18 05/23/25 13:38 BP 110/70 05/23/25 13:38 Pulse Ox 99 05/23/25 13:38 FiO2 Intake & Output 05/22/25 05/23/25 05/23/25 18:59 06:59 18:59 Output Total 18 Balance -18 Weight 99.79 kg Output: Post Void Residual 18 - Exam GENERAL: The patient is alert and oriented x3, not in any acute distress. Well developed, well nourished. HEENT: Pupils are round and equally reacting to light. EOMI. No scleral icterus. No conjunctival pallor. Normocephalic, atraumatic. No pharyngeal erythema. No thyromegaly. CARDIOVASCULAR: S1 and S2 present. No murmurs, rubs, or gallops. PULMONARY: Chest is clear to auscultation, no wheezing , no crackles. ABDOMEN: Soft, nontender, nondistended, normoactive bowel sounds. No palpable organomegaly. MUSCULOSKELETAL: No joint swelling or deformity. EXTREMITIES: No cyanosis, clubbing, or pedal edema. NEUROLOGICAL: Gross neurological examination did not reveal any focal deficits. SKIN: No rashes. no petechiae. - Labs CBC & Chem 7: 05/23/25 06:05/23/25 06:26 Labs: Abnormal Lab Results - Last 24 Hours (Table) 05/22/25 05/22/25 05/23/25 Range/Units 15:51 15:51 05:15 RBC (4.40-5.60) 10*6/uL Hgb (13.0-17.0) g/dL Hct (39.6-50.0) % MCHC (32.0-37.0) g/dL MPV (9.5-12.2) fL Eosinophils # (0.04-0.35) 10*3/uL Sodium (137-145) mmol/L Potassium 5.2 H (3.5-5.1) mmol/L Chloride (98-107) mmol/L Carbon Dioxide (22-30) mmol/L BUN (9-20) mg/dL Creatinine (0.66-1.25) mg/dL Glucose (74-99) mg/dL POC Glucose (mg/dL) (70-110) mg/dL Plasma Lactic Acid Kip 2.8 H* (0.7-2.0) mmol/L Calcium (8.4-10.2) mg/dL Urine Protein Trace H (Negative) Urine Ketones 1+ H (Negative) Urine Blood Small H (Negative) Ur Leukocyte Esterase Moderate H (Negative) Urine WBC 33 H (0-5) /hpf Urine Bacteria Rare H (None) /hpf Urine Mucus Rare H (None) /hpf Urine Yeast (Budding) Occasional H (None) /hpf 05/23/25 05/23/25 05/23/25 Range/Units : 06: 06:38 RBC 2.94 L (4.40-5.60) 10*6/uL Hgb 8.8 L D (13.0-17.0) g/dL Hct 27.7 L (39.6-50.0) % MCHC 31.8 L (32.0-37.0) g/dL MPV 9.4 L (9.5-12.2) fL Eosinophils # 0.03 L (0.04-0.35) 10*3/uL Sodium 134 L (137-145) mmol/L Potassium (3.5-5.1) mmol/L Chloride 110 H (98-107) mmol/L Carbon Dioxide 15 L (22-30) mmol/L BUN 53 H (9-20) mg/dL Creatinine 3.43 H (0.66-1.25) mg/dL Glucose 72 L (74-99) mg/dL POC Glucose (mg/dL) 66 L (70-110) mg/dL Plasma Lactic Acid Kip (0.7-2.0) mmol/L Calcium 7.1 L (8.4-10.2) mg/dL Urine Protein (Negative) Urine Ketones (Negative) Urine Blood (Negative) Ur Leukocyte Esterase (Negative) Urine WBC (0-5) /hpf Urine Bacteria (None) /hpf Urine Mucus (None) /hpf Urine Yeast (Budding) (None) /hpf 05/23/25 05/23/25 Range/Units 07:00 13:27 RBC (4.40-5.60) 10*6/uL Hgb (13.0-17.0) g/dL Hct (39.6-50.0) % MCHC (32.0-37.0) g/dL MPV (9.5-12.2) fL Eosinophils # (0.04-0.35) 10*3/uL Sodium (137-145) mmol/L Potassium (3.5-5.1) mmol/L Chloride (98-107) mmol/L Carbon Dioxide (22-30) mmol/L BUN (9-20) mg/dL Creatinine (0.66-1.25) mg/dL Glucose (74-99) mg/dL POC Glucose (mg/dL) 61 L 141 H (70-110) mg/dL Plasma Lactic Acid Kip (0.7-2.0) mmol/L Calcium (8.4-10.2) mg/dL Urine Protein (Negative) Urine Ketones (Negative) Urine Blood (Negative) Ur Leukocyte Esterase (Negative) Urine WBC (0-5) /hpf Urine Bacteria (None) /hpf Urine Mucus (None) /hpf Urine Yeast (Budding) (None) /hpf Assessment and Plan Assessment: Metabolic encephalopathy secondary to hypoglycemia improved Acute kidney injury on CKD stage IV with hyperkalemia improved Metabolic acidosis Alcohol use disorder at risk of withdrawal Atrial fibrillation on Eliquis History of DVT Diabetes mellitus Hypertension Hyperlipidemia Hypothyroidism Plan: Patient was started on sodium bicarb drip at 75 mL/h Continue Eliquis Nephrology team consult Check urine analysis and bladder scan Nutritional consult Labs and medication were reviewed.. Continue same treatment. Continue with symptomatic treatment. Resume home medication. Monitor labs and vitals. DVT and GI prophylaxis. Further recommendations as per clinical course of the patient DVT prophylaxis: Eliquis GI Prophylaxis: Protonix PT/OT: Pending Prognosis is guarded
[2025-05-24 03:23] VITALS: TEMP 98
[2025-05-24 07:10] LABS: Basophils # (A) 0.03 10*3/uL (0.00-0.10); Basophils % (A) 0.5 %; Eosinophils # (A) 0.12 10*3/uL (0.04-0.35); HCT 25.9 % (39.6-50.0); HGB 8.7 g/dL (13.0-17.0); Lymphocytes # (A) 2.57 10*3/uL (0.90-5.00); Lymphocytes % (A) 42.5 %; MCH 30.9 pg (27.0-32.0); MCHC 33.6 g/dL (32.0-37.0); MCV 91.8 fL (80.0-97.0); Mean Platelet Volume 9.4 fL (9.5-12.2); Monocytes # (A) 0.34 10*3/uL (0.20-1.00); Monocytes % (A) 5.6 %; Neutrophils # (A) 2.97 10*3/uL (1.80-7.70); Neutrophils % (A) 49.1 %; Platelet Count 154 10*3/uL (140-440); RBC 2.82 10*6/uL (4.40-5.60); RDW 16.2 % (11.5-14.5); WBC 6.05 10*3/uL (4.50-10.00)
[2025-05-24 07:25] LABS: African American GFR (CKD) 21 (>60 ml/min/1.73 sqM); Anion Gap 6 mmol/L; Blood Urea Nitrogen 51 mg/dL (9-20); Calcium 7.4 mg/dL (8.4-10.2); Carbon Dioxide 21 mmol/L (22-30); Chloride 109 mmol/L (98-107); Glucose 85 mg/dL (74-99); Non-African American GFR(CKD) 19 (>60 ml/min/1.73 sqM); Potassium 4.1 mmol/L (3.5-5.1); Sodium 136 mmol/L (137-145)
[2025-05-24 10:02] LABS: Glucose,Whole Blood 133 mg/dL (70-110)
--- NOTE | 2025-05-24 12:44 | P.PN ---
Subjective Patient is seen for follow-up for chronic kidney disease. Mental status is at baseline No significant complaints today. Serum creatinine down to 3.3 today. He has an external catheter with 900 mL of urine charted. Bladder scan showed only 18 mL Objective - Vital Signs Vital signs: Vital Signs Temp 98.0 F 05/24/25 02:00 Pulse 87 05/24/25 09:53 Resp 17 05/24/25 09:53 BP 106/72 05/24/25 09:53 Pulse Ox 97 05/24/25 09:53 FiO2 Intake & Output 05/23/25 05/24/25 05/24/25 18:59 06:59 18:59 Output Total 18 900 Balance -18 -900 Output: Urine 900 Male - External 900 Post Void Residual 18 - Exam patient is awake, comfortable, no acute distress. 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 exam shows patient is able to move all 4 extremities - Labs CBC & Chem 7: 05/24/25 06:55 05/24/25 06:55 Labs: Abnormal Lab Results - Last 24 Hours (Table) 05/23/25 05/23/25 05/23/25 Range/Units 13:27 17:15 21:00 RBC (4.40-5.60) 10*6/uL Hgb (13.0-17.0) g/dL Hct (39.6-50.0) % MPV (9.5-12.2) fL Sodium (137-145) mmol/L Chloride (98-107) mmol/L Carbon Dioxide (22-30) mmol/L BUN (9-20) mg/dL Creatinine (0.66-1.25) mg/dL POC Glucose (mg/dL) 141 H 127 H 132 H (70-110) mg/dL Calcium (8.4-10.2) mg/dL 05/24/25 05/24/25 05/24/25 Range/Units 06:55 06:55 09:53 RBC 2.82 L (4.40-5.60) 10*6/uL Hgb 8.7 L (13.0-17.0) g/dL Hct 25.9 L (39.6-50.0) % MPV 9.4 L (9.5-12.2) fL Sodium 136 L (137-145) mmol/L Chloride 109 H (98-107) mmol/L Carbon Dioxide 21 L (22-30) mmol/L BUN 51 H (9-20) mg/dL Creatinine 3.31 H (0.66-1.25) mg/dL POC Glucose (mg/dL) 133 H (70-110) mg/dL Calcium 7.4 L (8.4-10.2) mg/dL Assessment and Plan Assessment: 1. Acute kidney injury, ATN, nonoliguric. No evidence of urine retention. Renal function slightly improved. Maintained on IV fluids. 2. Non-gap metabolic acidosis associated with acute kidney injury, improving with IV bicarb. Possible alcohol intoxication as patient was previously admitted with alcohol intoxication in February 2025. Alcohol level not available 3. Chronic kidney disease stage IV with baseline creatinine 1.7-2 mg/dL, secondary to nephrosclerosis 4. Secondary hyperparathyroidism maintained on calcitriol. Serum calcium 7.1 5. Anemia of chronic disease with no active bleeding noted. Hemoglobin at 8.8 g/dL. Rule out iron deficiency 6. Hyperkalemia associated with acute kidney injury and severe metabolic acidosis Plan: Patient can be discharged from nephrology standpoint. Aranesp x 1 Add oral sodium bicarb to home meds Follow-up in the office in 1 week postdischarge
[2025-05-24 15:23] VITALS: BP 110/72; PULSE 81; RESP 18
[2025-05-24] MEDS ORDERED: SODIUM BICARBONATE TAB 650 MG TAB PO SCH (21:00)
--- NOTE | 2025-06-02 20:33 | P.DS ---
Providers Date of admission: 05/22/25 12:37 Attending physician: Drew Flores Consults: 05/22/25 12:35 Consult Physician Routine Consulting Provider: Alexia Knight Consult Reason/Comments: Acute on chronic kidney injury, metabolic acidosis Do you want consulting provider notified?: Yes Primary care physician: Stated None Hospital Course: Diagnosis: Metabolic encephalopathy secondary to hypoglycemia improved Acute kidney injury on CKD stage IV with hyperkalemia improved Metabolic acidosis Alcohol use disorder at risk of withdrawal Atrial fibrillation on Eliquis History of DVT Diabetes mellitus Hypertension Hyperlipidemia Hypothyroidism Hospital course: This is a pleasant 65 years old male with past medical history of multiple medical problems including chronic kidney disease stage IV Presents because of altered mental status found to be hypoglycemic at home sugar was 37, this was resolved with correction of hypoglycemia Patient states that he has decreased urine output for about 36 hours He looks confused earlier but now mentation back to normal Patient was treated with IV fluids and sodium bicarb drip nephrology evaluated the patient. Patient showed interval improvement Patient returned to her baseline and hyperglycemia corrected Patient denies any other new complaints and she is agreeable for discharge Patient corrected for discharge by nephrology service Problems and management plan were discussed with the patient and he verbalized understanding and acceptance Patient was found stable and can be discharged home in guarded prognosis however he needs follow-up as an outpatient. Patient was instructed to follow up with PCP within one week and patient agrees Patient was instructed to follow-up with upscale security officer Dr. Knight in 1 week and he agrees Physical exam Gen: patient is a AAOx3, no distress CVS: S1-S2, RRR, no murmur Lungs: B/L CTA, no wheezing Abdomen: soft, no distention, no tenderness, positive bowel sounds Extremity: no leg edema or induration Time spent more than 35 minutes Patient Condition at Discharge: Stable Plan - Discharge Summary New Discharge Prescriptions: New Dextrose Gel [Glucose Gel] 15 gm PO TID PRN #375 gm PRN Reason: HYPOGLYCEMIA Sodium Bicarbonate Tab 650 mg PO BID #60 tab Continue Tamsulosin [Flomax] 0.4 mg PO DAILY Ferrous Sulfate [Feosol] 325 mg PO DAILY Levothyroxine Sodium 125 mcg PO DAILY Folic Acid 1 mg PO DAILY calcitrioL 0.25 mcg PO DAILY Thiamine [Vitamin B-1] 100 mg PO DAILY tab Multivitamins, Thera [Multivitamin (formulary)] 1 tab PO DAILY Naltrexone HCl [Revia] 50 mg PO DAILY #90 tab Midodrine [ProAmatine] 5 - 10 mg PO BID PRN PRN Reason: see rx instructions allopurinoL 100 mg PO DAILY Apixaban [Eliquis] 2.5 mg PO BID Cyanocobalamin (Vitamin B-12) [Vitamin B-12] 1,000 mcg PO DAILY Melatonin 5 mg PO HS PRN tab PRN Reason: Insomnia Pantoprazole Sodium [Protonix] 40 mg PO DAILY #60 tab Mirtazapine [Remeron] 15 mg PO HS #90 tab FLUoxetine HCL [PROzac] 80 mg PO DAILY #90 cap Changed Metoprolol Tartrate [Lopressor] 12.5 mg PO BID PRN #60 tab PRN Reason: heart rate over 100 Discharge Medication List Ferrous Sulfate [Feosol] 325 mg PO DAILY 08/29/24 [History] Folic Acid 1 mg PO DAILY 08/29/24 [History] Levothyroxine Sodium 125 mcg PO DAILY 08/29/24 [History] Tamsulosin [Flomax] 0.4 mg PO DAILY 08/29/24 [History] allopurinoL 100 mg PO DAILY 08/29/24 [History] calcitrioL 0.25 mcg PO DAILY 08/29/24 [History] Apixaban [Eliquis] 2.5 mg PO BID 01/23/25 [History] Cyanocobalamin (Vitamin B-12) [Vitamin B-12] 1,000 mcg PO DAILY 01/23/25 [History] Melatonin 5 mg PO HS PRN tab 02/01/25 [Rx] Thiamine [Vitamin B-1] 100 mg PO DAILY tab 02/01/25 [Rx] Pantoprazole Sodium [Protonix] 40 mg PO DAILY #60 tab 03/05/25 [Rx] Multivitamins, Thera [Multivitamin (formulary)] 1 tab PO DAILY 03/21/25 [Histo ry] FLUoxetine HCL [PROzac] 80 mg PO DAILY #90 cap 03/23/25 [Rx] Mirtazapine [Remeron] 15 mg PO HS #90 tab 03/23/25 [Rx] Naltrexone HCl [Revia] 50 mg PO DAILY #90 tab 03/23/25 [Rx] Midodrine [ProAmatine] 5 - 10 mg PO BID PRN 05/22/25 [History] Dextrose Gel [Glucose Gel] 15 gm PO TID PRN #375 gm 05/24/25 [Rx] Metoprolol Tartrate [Lopressor] 12.5 mg PO BID PRN #60 tab 05/24/25 [Rx] Sodium Bicarbonate Tab 650 mg PO BID #60 tab 05/24/25 [Rx] Follow up Appointment(s)/Referral(s): Alexia Knight MD [STAFF PHYSICIAN] - 1 Week Carlita Worthy MD [STAFF PHYSICIAN] - 1 Week (Follow-up with your single pointed operator within 1 week, for your A-fib management) None,Stated [Primary Care Provider] - 1-2 days Activity/Diet/Wound Care/Special Instructions: heart healthy diet activity is restricted till you see your doctor Discharge Disposition: HOME WITH HOME HEALTH SERVICES
== END 2025-05-24 15:22 | disposition home health service (06) ==
LOC: EC 09:06 → 3SCARD 12:37 → INTOOBSV 12:37 → 3SCARD 15:02
PROVIDERS: ADMIT Hospitalist; ATTEND Hospitalist
DX: E11.649 Type 2 diabetes mellitus with hypoglycemia without coma (principal); G93.41 Metabolic encephalopathy; N17.0 Acute kidney failure with tubular necrosis; I12.9 Hypertensive chronic kidney disease with stage 1 through stage 4 chronic kidney disease, or unspecified chronic kidney disease; N18.4 Chronic kidney disease, stage 4 (severe); E87.20 Acidosis, unspecified; E11.22 Type 2 diabetes mellitus with diabetic chronic kidney disease; E87.5 Hyperkalemia; N25.81 Secondary hyperparathyroidism of renal origin; D63.1 Anemia in chronic kidney disease; G47.30 Sleep apnea, unspecified; I48.91 Unspecified atrial fibrillation; E03.9 Hypothyroidism, unspecified; F10.10 Alcohol abuse, uncomplicated; E78.5 Hyperlipidemia, unspecified; F32.A Depression, unspecified; Z86.718 Personal history of other venous thrombosis and embolism; Z79.890 Hormone replacement therapy; Z79.01 Long term (current) use of anticoagulants; Z79.899 Other long term (current) drug therapy
CPT/HCPCS: 96368; 96365 ×2; 96366 ×2; 96375; 99291; 51798; 36415; 93005; 80053; 80048 ×3; 82803; 83605; 83735; 84132; 85025 ×3; 81001; G0378 ×3; J3475; J0613; 96361